=== PATIENT | female | born 1955 | race Caucasian/White ===

== ENCOUNTER → 2018-08-02 11:56 | Outpatient (CLI) | payer MEDICARE, SELFPAY | PROVIDERS: Family Provider Family Medicine; PCP Family Medicine; Visit Provider Family Medicine | DX: Z12.31 Encounter for screening mammogram for malignant neoplasm of breast (principal) | CPT/HCPCS: 77063; 77067 ==

== ENCOUNTER 2018-09-07 20:35 | Emergency (ER) | payer MEDICARE, SELFPAY ==
[2018-09-07 20:36] VITALS: BP 118/82; PULSE 77; RESP 16; TEMP 35.6; O2SAT 94; BMI 34.7
--- NOTE | 2018-09-07 20:52 | CT_ITS ---
STUDY: CT FACIAL BONES WITHOUT CONTRAST REASON FOR EXAM: Female, 63 years old. Fall. Facial pain. RADIATION DOSAGE (If Supplied By Facility): CTDIvol = ( 29.38 ) mGy, DLP = ( 466.65 ) mGycm TECHNIQUE: The patient was scanned in a multi detector CT scanner. Sagittal and coronal images were reconstructed. Individualized dose optimization techniques were used for this CT. COMPARISON: None. FINDINGS: Normal soft tissue structures. Normal orbital morales and orbital contents. Normal nasal bones and anterior nasal spine. Normal facial bones. There is no demonstrated fracture. Normal visualized paranasal sinuses. CT/Sinus/Facial Bone IMPRESSION: No acute osseous injury. Electronically Signed: Gloria Finley MD at 22:23 EDT Tel , Service support ,
--- NOTE | 2018-09-07 20:52 | CT_ITS ---
STUDY: CT BRAIN WITHOUT CONTRAST REASON FOR EXAM: Female, 63 years old. Fall. RADIATION DOSAGE (If Supplied By Facility): CTDIvol = ( 44.99 ) mGy, DLP = ( 745.49 ) mGycm TECHNIQUE: Transaxial CT imaging of the brain was performed without administration of intravenous contrast material. Individualized dose optimization techniques were used for this CT. COMPARISON: None. FINDINGS: Normal soft tissue structures. Normal calvarium. Normal size ventricles and extra-axial spaces for the patient's age. Normal white matter tracts of the cerebral hemispheres. Normal basal ganglia and thalami. Normal brainstem. Normal cerebellum. There is no intracranial hemorrhage. There are no findings of an acute ischemic infarction. Normal visualized paranasal sinuses. CT/Brain/Head without Contrast IMPRESSION: No acute intracranial process. Electronically Signed: Gloria Finley MD at 21:40 EDT Tel , Service support ,
[2018-09-07 20:59] VITALS: BP 139/65; PULSE 68; RESP 16; O2SAT 97
[2018-09-07] MEDS: Diphth,Pertuss(Acell),Tet Vac 0.5 ML Vial IM (21:04)
--- NOTE | 2018-09-07 21:30 | ED.DCSUM_ITS ---
- ER Visit Summary Date of Service: 09/07/18 Chief Complaint: [Fall] History of Present Illness: The patient is a 63 F [presents the emergency department complaint of a fall that occurred prior to arrival in the emergency department. Patient tripped in the garage and fell striking her face on the garage floor. No loss of consciousness. Patient also complains of pain to her left hand. Patient denies any neck pain. She denies any chest pain or abdominal pain. Patient states that she saw a lot of blood in afterwards became almost presyncopal. Patient has a history of COPD. She is not on any blood thinners. Patient is right-hand dominant.] Physical Examination: [HEENT-PERRLA, EOMI. Cranial nerves II through XII grossly intact. TMs clear. Mucous membranes moist. No adenopathy. Patient has no C-spine tenderness on palpation and has normal active range of motion is painless patient does have soft tissue swelling to the nose diffusely but minimal discomfort over the nasal bone. There is no septal hematomas noted although she does have some small amount of dried blood both nasal vaults. Patient has superficial abrasion to the upper lip but no significant lacerations. Patient does have some soft tissue swelling of the lip. No dental trauma noted. Cardiovascular-regular rate and rhythm without murmur or ectopy Lungs-clear to auscultation, chest wall stable without crepitus or subcu emphysema Abdomen-normoactive bowel sounds, soft, nontender, no rebound or rigidity, no peritoneal signs. Extremities-intact ?4, normal range of motion, normal pulses. Left hand-patient has some mild discomfort over the small finger diffusely with no obvious deformity. Patient has some faint ecchymosis noted over the thenar eminence of the right hand. She has normal range of motion of all digits. She is neurovascular intact. Test Results: [CT of the brain without contrast was normal. CT of the facial bones showed no fractures. X-rays of the left hand showed no fractures.] Emergency Department Course and Treatment: [Patient was given a Adacel tetanus booster. She was given an Arcadio wrap for her left hand.] Treatment Plan: [Patient advised to follow-up with her primary care physician within next 5-7 days. Patient will use ibuprofen or Tylenol for discomfort.] Disposition: [Discharged home in stable condition] Impression: [Mechanical fall Facial contusions Left hand sprain] This note was generated with [employer] dictation software. It may contain incorrect words, spelling, and punctuation that were not noted in review of the chart prior to signing ED Disposition - Plan for ED Patient: Chief Complaint: Fall Referrals: Christy Perea MD [Primary Care Provider] -
--- NOTE | 2018-09-07 22:10 | RAD_ITS ---
STUDY: X-RAY - LEFT HAND REASON FOR EXAM: Female, 63 years old. Fall. TECHNIQUE: 3 view(s) of the hand. COMPARISON: None. FINDINGS: There is joint space narrowing of the radiocarpal articulation consistent with degenerative arthrosis. Normal distal radioulnar joint. Normal visualized carpal bones. Normal carpal articulations There is degenerative arthrosis of the carpometacarpal articulation of the thumb with lateral subluxation of the first metacarpus. Normal second through fifth carpometacarpal joints. Normal metacarpi. Normal metacarpophalangeal joint of the thumb. There is degenerative arthrosis of the interphalangeal joint of the thumb with articular joint space narrowing. Normal proximal and distal phalanges of the thumb. Normal metacarpophalangeal joints of the second through fifth fingers. There is diffuse articular joint space narrowing of the proximal and distal interphalangeal joints of the second through fifth fingers, but without erosive changes or periarticular soft tissue swelling. Normal phalanges of the second through fifth fingers. The soft tissue structures are unremarkable. RAD/Hand Min 3 Views IMPRESSION: Degenerative joint disease of the hand and wrist, as described above. Electronically Signed: Gloria Finley MD at 21:36 EDT Tel , Service support ,
--- NOTE | 2018-09-07 22:28 | ED.DEP ---
ED Disposition - Plan for ED Patient: Chief Complaint: Fall Instructions: ED Mechanical Fall, ED Contusion Face, ED Sprain Hand Referrals: Christy Perea MD [Primary Care Provider] - 5-7 Days
[2018-09-07 22:43] VITALS: BP 133/66; PULSE 70; RESP 15; O2SAT 97
== END 2018-09-07 22:44 | disposition home or self-care (01) ==
LOC: ED 21:36
PROVIDERS: Emergency Provider Emergency Medicine; Family Provider Family Medicine; PCP Family Medicine
DX: S00.83XA Contusion of other part of head, initial encounter (principal); S63.92XA Sprain of unspecified part of left wrist and hand, initial encounter; S00.511A Abrasion of lip, initial encounter; W01.10XA Fall on same level from slipping, tripping and stumbling with subsequent striking against unspecified object, initial encounter; Y93.9 Activity, unspecified; Y92.008 Other place in unspecified non-institutional (private) residence as the place of occurrence of the external cause; Y99.9 Unspecified external cause status; Z23 Encounter for immunization; J44.9 Chronic obstructive pulmonary disease, unspecified; Z79.899 Other long term (current) drug therapy
CPT/HCPCS: 70450; 70486; 73130; 90471; 90715; 99282

== ENCOUNTER → 2019-02-28 14:09 | Outpatient (CLI) | payer MEDICARE, SELFPAY ==
[2019-02-27 15:50] VITALS: BMI 34.9
== END ==
PROVIDERS: Family Provider Family Medicine; PCP Family Medicine; Referring Provider Physician Assistant; Visit Provider Physician Assistant
DX: N39.0 Urinary tract infection, site not specified (principal)
CPT/HCPCS: 87086

== ENCOUNTER → 2019-08-04 13:31 | Outpatient (CLI) | payer MEDICARE, SELFPAY ==
[2019-02-27 15:50] VITALS: BMI 34.9
--- NOTE | 2019-08-04 13:33 | BI_ITS ---
MAMMOGRAPHY - BILATERAL SCREENING REASON FOR EXAM: Female, 63 years old. Routine annual screening examination. PERTINENT HISTORY: Aunt with breast cancer. TECHNIQUE: Digital bilateral breast tom (3D mammographic acquisition) in the CC and MLO projections. 2-D mediolateral oblique (MLO) and craniocaudad (CC) views of both breasts were obtained. CAD: Full Field Digital Mammography with Computer Added Detection was performed. COMPARISON: Comparison is made with prior study dated August 02, 2018 and July 31, 2017. FINDINGS: Breast Composition: The breasts are almost entirely fatty. There are no dominant masses or suspicious calcifications. Stable appearance of the bilateral axillary lymph nodes. No other significant abnormalities are identified. There has been no significant change since the prior study. BI/SCREEN MAMM (CAD) W/TOM BILAT IMPRESSION: Stable bilateral screening mammogram. Yearly follow-up mammogram recommended. (A) ASSESSMENT CATEGORY: BIRADS Category 2: Benign. A letter regarding these results will be sent to the patient by the facility within 30 days. Approximately 10% of breast cancers are not detected by mammography. A normal mammogram should not delay biopsy of a clinically suspicious abnormality. [id number] Electronically Signed: Sabas Nunn, at 14:55 EDT , Service support ,
== END ==
PROVIDERS: Family Provider Family Medicine; PCP Family Medicine; Referring Provider Family Medicine; Visit Provider Family Medicine
DX: Z12.31 Encounter for screening mammogram for malignant neoplasm of breast (principal)
CPT/HCPCS: 77063; 77067

== ENCOUNTER → 2019-10-29 11:04 | Outpatient (CLI) | payer MEDICARE, SELFPAY ==
[2019-02-27 15:50] VITALS: BMI 34.9
[2019-10-29 12:41] LABS: Absolute Lymphocyte Count 2.08 X10^3/uL (0.83-4.51); Absolute Neutrophil Count 6.2 X10^3/uL (2.0-7.7); Basophil# 0.05 X10^3/uL; Basophil% 0.5 % (0-1); Eosinophil# 0.18 X10^3/uL; Eosinophils% 1.9 % (0-5); Hematocrit 45.7 % (37-47); Hemoglobin 14.6 g/dL (12.0-15.0); Lymphocyte # 2.08 X10^3/ul (4.0); Lymphocyte % 21.8 % (19-41); Mean Corp Hgb Conc 31.9 g/dL (32-36); Mean Corpuscular Hgb 28.7 pg (27.0-32.0); Mean Corpuscular Volume 89.8 fL (81-99); Monocyte# 0.99 X10^3/uL; Monocyte% 10.4 % (0-10); NRBC Flagged by Analyzer 0 % (0-5); Neutrophil % 65.1 % (47-70); Platelet Count 318 K/mm3 (150-450); RBC Distribution Width CV 15.5 % (11.6-14.6); RBC Distribution Width SD 51.5 fl (35.1-43.9); Red Blood Count 5.09 M/mm3 (4.2-5.4); White Blood Count 9.5 K/mm3 (4.4-11.0)
== END ==
PROVIDERS: Family Provider Family Medicine; PCP Family Medicine; Referring Provider Internal Medicine Pulmonary Disease; Visit Provider Internal Medicine Pulmonary Disease
DX: J44.9 Chronic obstructive pulmonary disease, unspecified (principal)
CPT/HCPCS: 36415; 85025

== ENCOUNTER → 2020-08-11 09:49 | Outpatient (CLI) | payer MEDICARE, SELFPAY ==
[2019-02-27 15:50] VITALS: BMI 34.9
--- NOTE | 2020-08-11 09:51 | BI_ITS ---
MAMMOGRAPHY - BILATERAL SCREENING REASON FOR EXAM: Female, 64 years old. Routine annual screening examination. PERTINENT HISTORY: Aunt with breast cancer. TECHNIQUE: Digital bilateral breast tom (3D mammographic acquisition) in the CC and MLO projections. 2-D mediolateral oblique (MLO) and craniocaudad (CC) views of both breasts were obtained. CAD: Full Field Digital Mammography with Computer Added Detection was performed. COMPARISON: Comparison is made with prior study dated 08/04/2019 and 08/02/2018. FINDINGS: Breast Composition: The breasts are almost entirely fatty. There are no dominant masses or suspicious calcifications. Stable benign-appearing bilateral axillary lymph nodes. No other significant abnormalities are identified. There has been no significant change since the prior study. BI/SCREEN MAMM (CAD) W/TOM BILAT IMPRESSION: Stable bilateral screening mammogram. Yearly follow-up mammogram recommended. (A) ASSESSMENT CATEGORY: BIRADS Category 2: Benign. A letter regarding these results will be sent to the patient by the facility within 30 days. Approximately 10% of breast cancers are not detected by mammography. A normal mammogram should not delay biopsy of a clinically suspicious abnormality. [id number] Electronically Signed: Sabas Nunn, at 12:49 EDT , Service support ,
--- NOTE | 2020-08-11 09:56 | BD_ITS ---
STUDY: DUAL ENERGY X-RAY ABSORPTIOMETRY / DXA REASON FOR EXAM: Female, 64 years old. 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 COMPARISON: Comparison is made with prior examination 07/13/2015. FINDINGS: Lumbar Spine (L1-L4): g/cm2 (1.123) / T-score (-0.5) / Z-score (1.1) Findings are suggestive of normal bone density with a low fracture risk. Left Femur Total: g/cm2 (0.952) / T-score (-0.4) / Z-score (0.9) Left Femoral Neck: g/cm2 (0.855) / T-score (-1.3) / Z-score (0.2) Right Femur Total: g/cm2 (0.854) / T-score (-1.2) / Z-score (0.1) Right Femoral Neck: g/cm2 (0.810) / T-score (-1.6) / Z-score (-0.1) The T-Scores on the most recent prior examination were: Lumbar Spine (L1-L4): There has been improvement of bone density since the previous examination. Left Femur Total: which represents a worsening of 3.3%. Right Femur Total: which represents a worsening of 7%. BD/Dexa Bone Density Study IMPRESSION: The patient is considered osteopenic as outlined below according to World Randy Organization (WHO) criteria with a low fracture risk. There has been worsening of bone density since the previous examination. Reference Information: The T-score is the number of standard deviations above or below the standard which is normal for young adults at their peak bone mineral density. The World Health Organization (WHO) interprets the T-scores as follows: Above -1 Normal bone density Between -1 and -2.5 Osteopenia Equal to / or below -2.5 Osteoporosis As a practical clinical guideline, osteopenia may be graded as follows: Mild -1 through -1.5 Moderate -1.6 through -2.0 Severe -2.1 through -2.4 The Z-score is the number of standard deviations above or below age-matched controls. A Z-score of less than -1.5 would be considered abnormal. References: 1. NIH Osteoporosis and Related Bone Diseases http://www.osteo.org 2. International Society for Clinical Densitometry http://www.iscd.org 3. National Osteoporosis Foundation http://www.nof.org Electronically Signed: Sabas Nunn, at 13:48 EDT , Service support ,
== END ==
PROVIDERS: PCP Family Medicine; Referring Provider Family Medicine; Visit Provider Family Medicine
DX: Z12.31 Encounter for screening mammogram for malignant neoplasm of breast (principal); Z78.0 Asymptomatic menopausal state; M85.80 Other specified disorders of bone density and structure, unspecified site; Z80.3 Family history of malignant neoplasm of breast
CPT/HCPCS: 77063; 77067; 77080

== ENCOUNTER → 2020-12-02 | Outpatient (CLI) | payer MEDICARE, SELFPAY ==
[2020-12-02 11:53] VITALS: BMI 39.3
== END | disposition home or self-care (01) ==
LOC: LABSPEC 18:10
PROVIDERS: PCP Family Medicine; Visit Provider Physician Assistant
DX: L03.311 Cellulitis of abdominal wall (principal)
CPT/HCPCS: 87070; 87077; 87186; 87205

== ENCOUNTER → 2021-05-12 | Outpatient (CLI) | payer MEDICARE, SELFPAY ==
[2021-05-12 17:11] VITALS: BMI 35.7
== END | disposition home or self-care (01) ==
LOC: LABSPEC 18:00
PROVIDERS: PCP Family Medicine; Visit Provider Physician Assistant
DX: L72.3 Sebaceous cyst (principal)
CPT/HCPCS: 87070; 87077; 87186; 87205

== ENCOUNTER → 2021-08-10 16:52 | Outpatient (CLI) | payer MEDICARE, SELFPAY ==
[2021-08-10 17:51] LABS: Absolute Lymphocyte Count 2.98 X10^3/uL (0.83-4.51); Absolute Neutrophil Count 8.6 X10^3/uL (2.0-7.7); Basophil# 0.07 X10^3/uL; Basophil% 0.5 % (0-1); Eosinophil# 0.21 X10^3/uL; Eosinophils% 1.6 % (0-5); Erythrocyte Sedimentation Rate 26 mm/hr (0-30); Hematocrit 44.5 % (37-47); Lymphocyte # 2.98 X10^3/ul (0.83-4.51); Mean Corp Hgb Conc 31.5 g/dL (32-36); Mean Corpuscular Hgb 29.1 pg (27.0-32.0); Mean Corpuscular Volume 92.5 fL (81-99); Mean Platelet Vol. 9.7 fl (6.2-12.0); Monocyte# 1.02 X10^3/uL; Monocyte% 7.9 % (0-10); NRBC Flagged by Analyzer 0 % (0-5); Neutrophil # 8.59 X10^3/uL (2.7-7.7); Neutrophil % 66.5 % (47-70); Platelet Count 434 K/mm3 (150-450); RBC Distribution Width CV 14.3 % (11.6-14.6); RBC Distribution Width SD 48.1 fl (35.1-43.9); Red Blood Count 4.81 M/mm3 (4.2-5.4); White Blood Count 12.9 K/mm3 (4.4-11.0)
== END ==
PROVIDERS: PCP Family Medicine; Referring Provider Physician Assistant; Visit Provider Physician Assistant
DX: M70.21 Olecranon bursitis, right elbow (principal); Y93.9 Activity, unspecified; J06.9 Acute upper respiratory infection, unspecified
CPT/HCPCS: 36415; 85025; 85048; 85652; 87205

== ENCOUNTER → 2021-08-16 10:36 | Outpatient (CLI) | payer MEDICARE, SELFPAY ==
[2021-05-12 17:11] VITALS: BMI 35.7
--- NOTE | 2021-08-16 10:38 | BI_ITS ---
MAMMOGRAPHY - BILATERAL SCREENING REASON FOR EXAM: Female, 66 years old. Routine annual screening examination. PERTINENT HISTORY: Aunt with breast cancer. TECHNIQUE: Digital bilateral breast pey[place] (3D mammographic acquisition) in the CC and MLO projections. 2-D mediolateral oblique (MLO) and craniocaudad (CC) views of both breasts were obtained. CAD: Full Field Digital Mammography with Computer Added Detection was performed. COMPARISON: Comparison is made with prior examination dated 08/11/2020 and 08/04/2019. FINDINGS: Breast Composition: The breasts are almost entirely fatty. There are no dominant masses or suspicious calcifications. Stable benign-appearing bilateral axillary lymph nodes. No other significant abnormalities are identified. There has been no significant change since the prior study. BI/SCREENING MAMM (CAD), BILAT IMPRESSION: Stable bilateral screening mammogram. Yearly follow-up mammogram recommended. (A) ASSESSMENT CATEGORY: BIRADS Category 2: Benign. A letter regarding these results will be sent to the patient by the facility within 30 days. Approximately 10% of breast cancers are not detected by mammography. A normal mammogram should not delay biopsy of a clinically suspicious abnormality. [id number] Electronically Signed: Sabas Nunn MD at 12:40 EDT , Service support ,
== END ==
PROVIDERS: PCP Family Medicine; Referring Provider Family Medicine; Visit Provider Family Medicine
DX: Z12.31 Encounter for screening mammogram for malignant neoplasm of breast (principal)
CPT/HCPCS: 77067

== ENCOUNTER → 2021-10-28 16:20 | Outpatient (CLI) | payer MEDICARE, SELFPAY ==
[2021-10-28 17:27] LABS: Hematocrit 44.1 % (37-47); Hemoglobin 14.1 g/dL (12.0-15.0); Mean Corpuscular Hgb 28.7 pg (27.0-32.0); Mean Corpuscular Volume 89.6 fL (81-99); Platelet Count 327 K/mm3 (150-450); RBC Distribution Width SD 49.8 fl (35.1-43.9); Red Blood Count 4.92 M/mm3 (4.2-5.4)
== END ==
PROVIDERS: PCP Family Medicine; Referring Provider Internal Medicine Pulmonary Disease; Visit Provider Internal Medicine Pulmonary Disease
DX: J44.9 Chronic obstructive pulmonary disease, unspecified (principal)
CPT/HCPCS: 36415; 85027

== ENCOUNTER → 2021-11-21 14:09 | Outpatient (CLI) | payer MEDICARE, SELFPAY ==
--- NOTE | 2021-11-21 14:21 | CT_ITS ---
STUDY: LOW DOSE CT LUNG CANCER SCREENING REASON FOR EXAM: Female, 66 years old. Former smoker, low-dose screening RADIATION DOSAGE (If Supplied By Facility): CTDIvol = ( 4.02 ) mGy, DLP = ( 140.44 ) mGycm TECHNIQUE: No contrast was administered. Low dose technique was utilized (average mAS-38 and kVp 120). 1.25 mm axial source images with a slice interval of 1.25-mm were reconstructed in lung windows. 2.5 mm axial source images with a slice interval of 2.5-mm were reconstructed in lung windows. 5.0 mm axial source images with a slice interval of 5.0-mm were reconstructed in soft tissue windows. Nodule measured using lung windows on PACS and/or independent workstation with automated measurement of minimum and maximum diameter. Nodule measurement reported as average diameter rounded to the nearest whole number. Growth is defined as an increase ins size of greater than 1.5 mm. COMPARISON: None. NODULES: Nodule #: 1 Density: Solid Lung location: Right lower lobe: 0.4 cm from pleura Location in series: Series Number: 2 Image: 117 Size - D1 x D2 mm: 5.4 x 6.1 mm: 6 mm average diameter Margin: Mildly irregular Shape: Round to triangular Calcification: None Fat: None Temporal comparison: Not applicable Total lung nodules (excluding granulomas): 1 Emphysema: Moderate centrilobular Endobronchial lesion: None Aorta: Atherosclerosis Coronary arteries: Mild atherosclerosis Heart: Normal size Pulmonary artery: Unremarkable for unopacified technique Mediastinal nodes: No adenopathy Other chest and abdominal findings: None relevant CT/Low Dose CT Lung Screening IMPRESSION: Lung-RADS category 3 - Continue screening with LDCT in 6 months. IMPORTANT NOTES FOR USE: ACR Lung-RADS Version 1.1 Assessment Categories Release Date: 2018 Category: Coded 0-4 bases on nodule(s) with highest degree of suspicion. Negative screen is defined as categories 1 and 2; a positive screen is defined as categories 3 and 4. Category 3 and 4A nodules that are unchanged on interval CT should be coded as category 2, and individuals returned to screening in 12 months. Category 4X: Category 3 or 4 nodules with additional imaging findings that increase the suspicion of lung cancer, such as spiculation, GGN that doubles in size in 1 year, enlarged lymph notes, etc. Category Modifiers: S (significant finding unrelated to lung cancer) Electronically Signed: Pranay Mckinney MD ([place]) at 15:26 EST , Service support ,
== END ==
PROVIDERS: PCP Family Medicine; Referring Provider Internal Medicine Pulmonary Disease; Visit Provider Internal Medicine Pulmonary Disease
DX: Z87.891 Personal history of nicotine dependence (principal)
CPT/HCPCS: 71271

== ENCOUNTER → 2022-03-30 | Outpatient (CLI) | payer MEDICARE, SELFPAY ==
--- NOTE | 2022-03-30 13:09 | ECHOD_ITS ---
Reason For Study: SOB Procedure This was a 2D Doppler, Color Flow transthoracic echocardiogram. Exam performed in department. Left Ventricle The estimated ejection fraction is 55-60 %. No evidence for diastolic dysfunction. No regional wall motion abnormalities noted. Right Ventricle Normal RV size. Normal systolic function. Atria Normal left atrium. Normal right atrium. No doppler evidence for ASD. Mitral Valve There is no mitral valve stenosis. Trivial mitral valve insufficiency. Tricuspid Valve There is no tricuspid stenosis. Trivial tricuspid valve insufficiency. Pulmonary artery systolic pressure is 50 mmHg. Aortic Valve Trisinus/trileaflet aortic valve. There is no aortic stenosis. No aortic valve insufficiency. Pulmonic Valve There is no pulmonic valvular stenosis. No pulmonic valve insufficiency. Great Vessels Normal aortic root. Pericardium/Pleural No pericardial effusion. MMode/2D Measurements & Calculations LVIDd: 4.6 cm IVSd: 0.93 cm Ao root diam: 3.0 cm LVIDs: 3.3 cm LVPWd: 0.89 cm RVDd: 2.7 cm FS: 29.0 % LAV(MOD-bp): 38.1 ml LVAd ap4: 24.4 cm2 LVAd ap2: 23.0 cm2 LAV(MOD-bp) Indexed: 20.2 ml/m2 LVLd ap4: 8.0 cm LVLd ap2: 7.5 cm LAV(MOD-sp2): 35.6 ml EDV(MOD-sp4): 63.2 ml EDV(MOD-sp2): 58.5 ml LAV(MOD-sp4): 37.1 ml EDV(sp4-el): 63.7 ml EDV(sp2-el): 59.6 ml LVAs ap4: 13.6 cm2 LVAs ap2: 12.7 cm2 LVLs ap4: 7.1 cm LVLs ap2: 6.8 cm ESV(MOD-sp4): 22.0 ml ESV(MOD-sp2): 20.6 ml ESV(sp4-el): 22.2 ml ESV(sp2-el): 20.2 ml EF(MOD-sp4): 65.2 % EF(MOD-sp2): 64.9 % EF(sp4-el): 65.1 % SV(MOD-sp4): 41.2 ml SV(MOD-sp2): 38.0 ml SV(sp4-el): 41.5 ml LA dimension(2D): 4.0 cm LA A4 area: 14.4 cm2 RA A4 area: 12.3 cm2 Doppler Measurements & Calculations MV E max sudheer: 63.1 cm/sec Lat Peak E' Sudheer: 9.3 cm/sec Med Peak E' Sudheer: 10.1 cm/sec MV A max sudheer: 87.6 cm/sec E/E' lat: 6.8 E/E' med: 6.3 MV E/A: 0.72 Ao V2 max: 157.1 cm/sec LV V1 max: 114.3 cm/sec PA V2 max: 109.8 cm/sec Ao max P.9 mmHg LV V1 max P.2 mmHg TR max sudheer: 334.9 cm/sec TR max P.9 mmHg ECHO/Echo Complete Interpretation Summary The estimated ejection fraction is 55-60 %. No evidence for diastolic dysfunction. Trivial mitral valve insufficiency. Ordering Physician: Mitchell Brian Referring Physician: Mitchell Brian V Performed By: Effie Gill RDCS
--- NOTE | 2022-03-30 13:12 | CT_ITS ---
STUDY: CT CHEST WITHOUT CONTRAST REASON FOR EXAM: Female, 66 years old. PULMONARY NODULE RADIATION DOSAGE (If Supplied By Facility): CTDIvol = ( 12.08 ) mGy, DLP = ( 440.61 ) mGycm TECHNIQUE: Transaxial imaging was performed without the administration of intravenous contrast material. Individualized dose optimization techniques were used for this CT. COMPARISON: Comparison is made with prior study dated 11/21/2021. FINDINGS: CHEST Stable small benign-appearing bilateral axillary lymph nodes. Hyperinflation. Emphysematous changes. Since prior study, there is evidence of increased interstitial markings with possible nodular density in the right lung apex. Follow-up in 3 months is recommended. Stable scarring in the lingular segment of the left upper lobe. The previously seen 5.6 mm nodule in the lateral aspect of the anterior right lower lobe is not seen at this time. There is no demonstrated pleural abnormality. There are calcifications of the coronary arteries. Normal mediastinum. Normal hilar regions. Normal unenhanced pulmonary arteries. There is atherosclerotic calcification of the aortic arch. There are multi-level degenerative changes of the thoracic spine. There is no demonstrated abnormality of the visualized upper abdomen. CT/Chest without Contrast IMPRESSION: Progressive increased interstitial markings in the right upper lobe. Follow-up in 3 months is recommended. Electronically Signed: Sabas Nunn MD at 15:33 EDT ,
== END | disposition home or self-care (01) ==
PROVIDERS: PCP Family Medicine; Referring Provider Internal Medicine Pulmonary Disease; Visit Provider Internal Medicine Pulmonary Disease
DX: R91.1 Solitary pulmonary nodule (principal); R06.00 Dyspnea, unspecified
CPT/HCPCS: 71250; 93306

== ENCOUNTER → 2022-09-28 | Outpatient (CLI) | payer MEDICARE, SELFPAY ==
--- NOTE | 2022-09-28 12:35 | BI_ITS ---
MAMMOGRAPHY - BILATERAL SCREENING REASON FOR EXAM: Female, 67 years old. Routine annual screening examination. PERTINENT HISTORY: Aunt with breast cancer. TECHNIQUE: Digital bilateral breast tom (3D mammographic acquisition) in the CC and MLO projections. 2-D mediolateral oblique (MLO) and craniocaudad (CC) views of both breasts were obtained. CAD: Full Field Digital Mammography with Computer Added Detection was performed. COMPARISON: Comparison is made with prior study dated 08/16/2021 and 08/11/2020. FINDINGS: Breast Composition: The breasts are almost entirely fatty. There are no dominant masses or suspicious calcifications. Stable appearance of the bilateral axillary lymph nodes. No other significant abnormalities are identified. There has been no significant change since the prior study. BI/SCRN MAMM (CAD)W/TOM BILAT IMPRESSION: Stable bilateral screening mammogram. Yearly follow-up mammogram recommended. (A) ASSESSMENT CATEGORY: BIRADS Category 2: Benign. A letter regarding these results will be sent to the patient by the facility within 30 days. Approximately 10% of breast cancers are not detected by mammography. A normal mammogram should not delay biopsy of a clinically suspicious abnormality. [id number] Electronically Signed: Sabas Nunn MD at 13:40 EDT ,
--- NOTE | 2022-09-28 12:40 | BD_ITS ---
STUDY: DUAL ENERGY X-RAY ABSORPTIOMETRY / DXA REASON FOR EXAM: Female, 67 years old. [id number] TECHNIQUE: Bone Mineral Density (BMD) measurements of lumbar spine and bilateral hips were obtained. COMPARISON: Comparison is made with prior study of 08/11/2020. FINDINGS: Lumbar Spine (L1-L4): g/cm2 (0.974) / T-score (-0.4) / Z-score (1.6) Findings are suggestive of normal bone density with a low fracture risk. Left Femur Total: g/cm2 (0.913) / T-score (-0.2) / Z-score (1.2) Left Femoral Neck: g/cm2 (0.684) / T-score (-1.5) / Z-score (0.3) Right Femur Total: g/cm2 (0.838) / T-score (-0.9) / Z-score (0.6) Right Femoral Neck: g/cm2 (0.691) / T-score (-1.4) / Z-score (0.3) The T-Scores on the most recent prior examination were: Lumbar Spine (L1-L4): There has been improvement of bone density since the previous examination. Left Femur Total: which represents an improvement of 2.8%. Right Femur Total: which represents an improvement of 5.8%. BD/Dexa Bone Density Study IMPRESSION: The patient is considered osteopenic as outlined below according to World Randy Organization (WHO) criteria with a low fracture risk. There has been improvement of bone density since the previous examination. Reference Information: The T-score is the number of standard deviations above or below the standard which is normal for young adults at their peak bone mineral density. The World Health Organization (WHO) interprets the T-scores as follows: Above -1 Normal bone density Between -1 and -2.5 Osteopenia Equal to / or below -2.5 Osteoporosis As a practical clinical guideline, osteopenia may be graded as follows: Mild -1 through -1.5 Moderate -1.6 through -2.0 Severe -2.1 through -2.4 The Z-score is the number of standard deviations above or below age-matched controls. A Z-score of less than -1.5 would be considered abnormal. References: 1. NIH Osteoporosis and Related Bone Diseases www osteo.org 2. International Society for Clinical Densitometry www iscd.org 3. National Osteoporosis Foundation www nof.org Electronically Signed: Sabas Nunn MD at 12:33 EDT ,
== END | disposition home or self-care (01) ==
LOC: OPBD 12:33
PROVIDERS: PCP Family Medicine; Referring Provider Family Medicine; Visit Provider Family Medicine
DX: Z12.31 Encounter for screening mammogram for malignant neoplasm of breast (principal); N95.9 Unspecified menopausal and perimenopausal disorder; Z80.3 Family history of malignant neoplasm of breast
CPT/HCPCS: 77063; 77067; 77080

== ENCOUNTER 2023-07-08 14:59 | Inpatient (IN) | payer MEDICARE, SELFPAY ==
[2023-07-08] VITALS (8 sets, daily range): BP systolic 149–168; BP diastolic 67–77; PULSE 85–94; RESP 16–24; TEMP 36.6–37.4; O2SAT 83–99; BMI 39.9
--- NOTE | 2023-07-08 15:16 | ED.VIS.DYS ---
HPI History of Present Illness Chief Complaint: Shortness of Breath Informant: patient Onset/Context/Timing Onset: Days (3) Context: gradual Timing: Continuous Quality: Positive for Dyspnea on exertion Worsened by: Exertion Relieved by: - (Air conditioning) Associated Symptoms cough, post nasal drip and green sputum; Negative for rhinorrhea, ear pain, fever, sore throat, chills or sweats Chest Pain: Positive for Dull Narrative Narrative: Patient presents with shortness of breath that has been getting worse over the past 3 days. Patient states that she was on vacation in [place] when this began. Patient states it is gradually gotten worse. Patient states she drove back from [place]. Patient states her breathing is worse with any exertion. Patient states it is better when she is in air conditioning. Patient admits to a cough with some green sputum. Patient also admits to some postnasal drainage. Patient denies any fevers or chills. Patient admits to some dull chest pain in the substernal area. PE Risk Factors: Positive for Recent travel; Negative for Cancer, OCP + Smoking + > 35, Prior DVT or PE, Recent immobilization or Recent surgery [facility] Medical History Arthritis Cellulitis and abscess of face Cellulitis of left forearm Hemorrhoids Knee pain Lung disease SOB (shortness of breath) Home Medications calcium carbonate 500 mg calcium (1,250 mg) tablet 500 mg PO DAILY 09/07/18 [History Last Taken Unknown] fluticasone furoate 200 mcg-vilanterol 25 mcg/dose inhalation powder 2 puff inhalation DAILY 09/07/18 [History Last Taken Unknown] loratadine 10 mg capsule 10 mg PO DAILY 09/07/18 [History Last Taken Unknown] montelukast 10 mg tablet 10 mg PO DAILY 09/07/18 [History Last Taken Unknown] albuterol sulfate 90 mcg/actuation aerosol inhaler 2 puff inhalation Q4H PRN PRN Shortness Of Breath 10/20/18 [History Last Taken Unknown] aspirin 81 mg chewable tablet 81 mg PO DAILY 10/20/18 [History Last Taken Unknown] escitalopram oxalate 5 mg tablet 5 mg PO DAILY 10/20/18 [History Last Taken Unknown] fluticasone furoate 100 mcg-vilanterol 25 mcg/dose inhalation powder (Breo Ellipta) 1 inh inhalation DAILY 10/20/18 [History Last Taken Unknown] umeclidinium 62.5 mcg/actuation blister powder for inhalation (Incruse Ellipta) 1 inh inhalation DAILY 10/20/18 [History Last Taken Unknown] pantoprazole 40 mg tablet,delayed release 40 mg PO DAILY 08/10/21 [History Last Taken Unknown] Allergy/AdvReac Type Severity Reaction Status Date / Time house dust Allergy Unknown Verified 07/08/23 15:01 mold Allergy Unknown Verified 07/08/23 15:01 Family History Other Cancer Heart disease Surgical History History of appendectomy Hx of removal of ovary Social History Smoking Status: Former smoker alcohol intake: never ROS ROS ED Constitutional Constitutional ED: Denies chills or fever(s) Eyes Eyes: Denies blurry vision or change in vision ENT ENT ED: Denies rhinorrhea or sore throat Cardiovascular Cardiovascular: Reports chest pain; Denies palpitations Respiratory/Chest Respiratory/Chest: Reports cough and dyspnea Gastrointestinal Gastrointestinal: Denies nausea or vomiting Genitourinary Genitourinary ED: Denies dysuria or hematuria Musculoskeletal Musculoskeletal: Reports back pain and neck pain Integumentary Denies abscess or rash Neurologic Neurologic: Denies headache(s) or weakness Allergic/Immunologic Allergic/Immunologic ED: Denies mouth swelling or urticaria EXAM Physical Exam Const Vital Signs: 07/08/23 15:02 07/08/23 15:05 07/08/23 15:38 Temperature 99.3 F H Temperature Source Temporal Pulse Rate 94 Respiratory Rate 22 H Respiratory Effort Respiratory Depth Respiratory Pattern Blood Pressure 168/67 H Blood Pressure Mean 100 Pulse Ox 83 99 Oxygen Delivery Method Room Air Nasal Cannula Nasal Cannula Oxygen Flow Rate (L/min) 2 07/08/23 15:39 07/08/23 15:44 Temperature Temperature Source Pulse Rate 85 Respiratory Rate 18 Respiratory Effort Short of Breath Respiratory Depth Normal Respiratory Pattern Normal Normal Blood Pressure Blood Pressure Mean Pulse Ox Oxygen Delivery Method Nasal Cannula Oxygen Flow Rate (L/min) 2 Positive well nourished and well developed General Appearance ED: well developed and NAD HEENT Reports moist mucous membranes Neck supple and no JVD Resp normal respiratory effort Auscultation: wheezes throughout Cardio regular rate and regular rhythm GI normal to inspection, nondistended, normoactive bowel sounds and non-tender Palpation: soft Extremity normal to inspection General Extremety ED: Negative for edema or tenderness General Extremity: Negative for edema Neuro oriented x3, CN's II-XII intact bilaterally and no sensory deficits noted Sensorium / Orientation: alert Motor Exam: strength 5/5 throughout Psych mental status grossly normal Skin no rashes or lesions noted MDM MDM MDM Narrative Medical decision making narrative: Differential diagnosis includes pneumonia, bronchitis, pulmonary embolism, pneumothorax, COPD exacerbation, and viral upper respiratory infection. EKG will be obtained to assess for cardiac dysrhythmia and cardiac ischemia. Chest x-ray will be obtained to assess for pneumonia, pneumothorax, and COPD. CBC will be obtained to assess for leukocytosis and anemia. Basic metabolic profile will be obtained to assess for electrolyte abnormality and renal function. High-sensitivity troponin will be obtained to assess for cardiac ischemia. D-dimer will be obtained to assess for pulmonary embolism. Lab Data Attestation: I reviewed the patient's lab results. Lab results narrative: CBC was reviewed. There is a mild leukocytosis of 14.0. The remainder is essentially within normal limits. Basic metabolic profile was reviewed and was within normal limits. High-sensitivity troponin was reviewed and was normal. D-dimer was reviewed and was 0.63 which is normal for the patient's age. Labs: Laboratory Results - last 24 hr 07/08/23 15:40 WBC 14.0 H RBC 4.52 Hgb 13.1 Hct 42.3 MCV 93.6 MCH 29.0 MCHC 31.0 L RDW Std Deviation 49.2 H RDW Coeff of Beena 14.4 Plt Count 281 MPV 9.7 Immature Gran % (Auto) 0.400 Neut % (Auto) 78.6 H Lymph % (Auto) 10.0 L Coffey % (Auto) 9.7 Eos % (Auto) 1.0 Baso % (Auto) 0.3 Absolute Neuts (auto) 11.0 H Absolute Lymphs (auto) 1.40 Nucleated RBC % 0 D-Dimer Quant (PE/DVT) 0.63 H* Sodium 138 Potassium 3.9 Chloride 100 Carbon Dioxide 34.0 H Anion Gap 4 L BUN 11 Creatinine 0.69 Est GFR (MDRD) Af Amer 108 Est GFR (MDRD) Non-Af 90 BUN/Creatinine Ratio 16.0 Glucose 110 H Calcium 8.9 Troponin I High Sens 24 Radiography Chest X-Ray - ED: 2 View, Read by ED Physician, Read by Radiologist and Chronic Changes Diagnostic Testing: Clinical Impression(s) from Imaging Studies Chest X-Ray 07/08/23 15:50 IMPRESSION: Mild chronic interstitial changes. No acute disease Electronically Signed: Chidi Dillon MD at 16:05 EDT , PA and lateral chest x-ray was obtained. There are 2 views. On my independent interpretation, lung samaniego show chronic changes. There is normal cardiac silhouette. Bony thorax is normal. There is no acute process noted. Radiologist also interpreted the x-ray and agrees. EKG Initial EKG: Attestation: I personally reviewed and interpreted this EKG as follows: Interpretation: Sinus Rhythm (90) and No Acute Injury Pattern Comments: EKG was obtained. On my independent interpretation, it showed a normal sinus rhythm with a rate of 90. CT interval, QRS interval, and QTc intervals were all normal. Isola was normal. There are no acute ST or T wave changes. Prior EKG tracings: not available for review Prior: No Prior Management Discussion w/another healthcare provider: Hospitalist Treatment and Re-Evaluation :: Patient was given a DuoNeb aerosol here. Patient's wheezing was improved on reevaluation. Since the patient was hypoxic on room air upon arrival and she does not normally wear oxygen, I recommended admission to the hospital. Patient is agreeable with this. I will discuss case with the hospitalist. He will admit the patient to the medical surgical unit. He recommended obtaining a sputum culture. Patient will be started on Rocephin and Zithromax. Patient and family understood and were agreeable with the plan. All questions were answered. Discharge Plan Triage Chief Complaint: Shortness of Breath ED Provider: Archie Gamino Dx/Rx/DC Orders Clinical Impression: Hypoxia, COPD exacerbation Prescriptions: No Action Breo Ellipta 100-25 mcg/dose blister with device 1 inh INHALATION DAILY Incruse Ellipta 62.5 mcg/actuation blister with device 1 inh INHALATION DAILY escitalopram oxalate 5 mg tablet 5 mg PO DAILY aspirin 81 mg tablet,chewable 81 mg PO DAILY calcium carbonate 500 MG tablet 500 mg PO DAILY montelukast 10 MG tablet 10 mg PO DAILY loratadine 10 MG capsule 10 mg PO DAILY fluticasone furoate-vilanterol 200-25 blister with device 2 puff Inhalation DAILY albuterol sulfate 90 mcg/actuation HFA aerosol inhaler 2 puff Inhalation Q4H PRN PRN (Reason: Shortness Of Breath) pantoprazole 40 mg tablet,delayed release (DR/EC) 40 mg PO DAILY Patient Comments: TAKE ONE TABLET TWICE DAILY BEFORE MORNING AND EVENING MEALS Primary Care Provider: Christy Perea Referrals: Christy Perea MD [Primary Care Provider] - Disposition Disposition: Acute Care Hospital [facility]
--- NOTE | 2023-07-08 15:25 | EKG12_ITS ---
Test Reason : sob Blood Pressure : / mmHG Vent. Rate : 090 BPM Atrial Rate : 090 BPM P-R Int : 134 ms QRS Dur : 082 ms QT Int : 374 ms P-R-T Axes : 089 060 069 degrees QTc Int : 457 ms Poor data quality, interpretation may be adversely affected Normal sinus rhythm Normal ECG When compared with ECG of 29-DEC-2006 19:37, No significant change was found Confirmed by ASHLEY NORRIS, JODI ([id number]), book or script editor CARTER PEREIRA ([id number]) on 09/14/2023 7:00:13 AM Referred By: Confirmed By:JODI RAMIREZ MD
[2023-07-08 15:43] LABS: Basophil# 0.04 X10^3/uL; Basophil% 0.3 % (0-1); Eosinophil# 0.14 X10^3/uL; Hematocrit 42.3 % (37-47); Hemoglobin 13.1 g/dL (12.0-15.0); Mean Corpuscular Volume 93.6 fL (81-99); Mean Platelet Vol. 9.7 fl (6.2-12.0); Monocyte# 1.36 X10^3/uL; Monocyte% 9.7 % (0-10); NRBC Flagged by Analyzer 0 % (0-5); Neutrophil # 10.97 X10^3/uL (2.7-7.7); Neutrophil % 78.6 % (47-70); Platelet Count 281 K/mm3 (150-450); RBC Distribution Width CV 14.4 % (11.6-14.6); RBC Distribution Width SD 49.2 fl (35.1-43.9); Red Blood Count 4.52 M/mm3 (4.2-5.4)
[2023-07-08] MEDS: Ipratropium/Albuterol Sulfate 3 ML AMPUL.NEB INHALATION (15:43)
--- NOTE | 2023-07-08 15:50 | RAD_ITS ---
STUDY: X-RAY CHEST REASON FOR EXAM: Female, 67 years old. Dyspnea TECHNIQUE: PA and lateral COMPARISON: November 01, 2017 FINDINGS: Mild chronic interstitial changes.. There is no demonstrated pleural abnormality. Normal size heart. Normal mediastinum and saba. Normal visualized pulmonary arteries. Mildly calcified aortic arch and descending thoracic aorta. Dorsal spine demonstrates minor spondylosis. Normal visualized, clavicles, and shoulders . Old healed left rib fracture. There is no demonstrated abnormality of the visualized soft tissue structures of the upper abdomen No significant change since prior study. RAD/Chest PA and Lateral IMPRESSION: Mild chronic interstitial changes. No acute disease Electronically Signed: Chidi Dillon MD at 16:05 EDT ,
[2023-07-08 16:06] LABS: D-Dimer Quantitative (DVT/PE) 0.63 FEU/ug/m (0.27-0.49)
[2023-07-08 16:30] LABS: Anion Gap 4 (5-15); BUN 11 mg/dL (7-18); Calcium,Total 8.9 mg/dL (8.5-10.1); Chloride 100 mmol/L (98-107); Creatinine, Serum 0.69 mg/dL (0.55-1.02); EST Glomerular Filtration Rate 90 mL/min (>60); Est Glom Filt Rate - Afr Amer 108 mL/min (>60); Glucose 110 mg/dL (74-106); Potassium 3.9 mmol/L (3.5-5.1); Sodium Level 138 mmol/L (136-145); Troponin-I HS 24 pg/mL (3.0-54.0)
--- NOTE | 2023-07-08 17:14 | NURSING ---
MED SURG MARISELA COPD EXAC, HYPOXIA
--- NOTE | 2023-07-08 17:16 | HP.PCM.HOS_ITS ---
HPI - General General Date of Admission: 07/08/23 HPI Narrative PIPER OLIVER, is a 67 F who presents to the hospital with shortness of breath. This started 4 to 5 days ago while she was in [place] for family reunion. She has been noticing a slow increase in her shortness of breath and yesterday when she arrived home she found it difficult to walk from the car to the house. D-dimer was obtained in the ER which was normal for her age. She denies any fevers or chills but has noticed productive cough with thick green sputum, and in the ER she was found to have white blood cell count of 14 without being on any steroids. Chest x-ray was unremarkable. He does have a history of COPD and when she arrived to the ER she was 83% on room air. She only wears oxygen at night through her CPAP. [facility] Medical History (Updated 07/08/23 @ 19:53 by Maite De La Fuente) Arthritis Cellulitis and abscess of face Cellulitis of left forearm Depression Hemorrhoids Knee pain Lung disease Migraines Smoker SOB (shortness of breath) Home Medications calcium carbonate 500 mg calcium (1,250 mg) tablet 500 mg PO DAILY calcium 09/07/18 [History Last Taken 07/08/23 13:00] fluticasone furoate 200 mcg-vilanterol 25 mcg/dose inhalation powder 2 puff inhalation DAILY SOB 09/07/18 [History Last Taken Unknown] montelukast 10 mg tablet 10 mg PO QHS allergies 09/07/18 [History Last Taken Unknown] albuterol sulfate 90 mcg/actuation aerosol inhaler 2 puff inhalation Q4H PRN PRN Shortness Of Breath 10/20/18 [History Last Taken Unknown] aspirin 81 mg chewable tablet 81 mg PO DAILY antiplatelet 10/20/18 [History Last Taken 07/07/23 21:30] escitalopram oxalate 5 mg tablet 10 mg PO QHS anxiety 10/20/18 [History Last Taken 07/07/23 21:30] pantoprazole 40 mg tablet,delayed release 40 mg PO DAILY GERD 08/10/21 [History Last Taken Unknown] cetirizine 10 mg tablet (24Hour Allergy) 10 mg PO QHS allergies 07/08/23 [History Last Taken 07/07/23 21:30] fluticasone fur. 200 mcg-umeclid 62.5 mcg-vilant 25 mcg inhalat.powder (Trelegy Ellipta) 1 inh inhalation DAILY SOB 07/08/23 [History Last Taken 07/08/23] fluticasone propionate 50 mcg/actuation nasal spray,suspension 2 spray intranasal QHS nasal dryness 07/08/23 [History Last Taken Unknown] rimegepant 75 mg disintegrating tablet (Nurtec ODT) 75 mg PO DAILY PRN migraine 07/08/23 [History Last Taken Unknown] Allergy/AdvReac Type Severity Reaction Status Date / Time house dust Allergy Unknown Verified 07/08/23 19:55 mold Allergy Unknown Verified 07/08/23 19:55 Family History Other Cancer Heart disease Surgical History History of appendectomy Hx of removal of ovary Social History Smoking Status: Former smoker alcohol intake: never ROS Constitutional Constitutional: Denies chills, fatigue, fever(s) or malaise Eyes Eyes: Denies blurry vision ENT HEENT: Denies headache(s) or nasal discharge Cardiovascular Cardiovascular: Denies chest pain, dyspnea on exertion or syncope Respiratory/Chest Respiratory/Chest: Reports cough, productive cough, shortness of breath at rest and shortness of breath with exertion Gastrointestinal Gastrointestinal: Denies constipation, diarrhea, nausea or vomiting Genitourinary Genitourinary: Denies dysuria Neurologic Neurologic: Denies focal weakness, numbness or tremor(s) Psychiatric Psychiatric: Denies anxiety or depression Vital Signs Vital Signs Vital Signs: 07/08/23 15:02 07/08/23 15:05 07/08/23 15:38 Temperature 99.3 F H Temperature Source Temporal Pulse Rate 94 Respiratory Rate 22 H Respiratory Effort Respiratory Depth Respiratory Pattern Blood Pressure 168/67 H Blood Pressure Mean 100 Pulse Ox 83 99 Oxygen Delivery Method Room Air Nasal Cannula Nasal Cannula Oxygen Flow Rate (L/min) 2 07/08/23 15:39 07/08/23 15:44 07/08/23 17:10 Temperature Temperature Source Pulse Rate 85 91 Respiratory Rate 18 18 Respiratory Effort Short of Breath Respiratory Depth Normal Respiratory Pattern Normal Normal Blood Pressure 159/72 H Blood Pressure Mean 101 Pulse Ox 94 Oxygen Delivery Method Nasal Cannula Oxygen Flow Rate (L/min) 2 Physical Exam Narrative General: Alert, Oriented x3, Cooperative, mild to moderate respiratory distress HEENT: Atraumatic, PERRLA, EOMI, Normocephalic Oral: Moist Mucosa Neck: Supple, No JVD Lungs: Diminished, Normal air movement, No rhonchi, wheeze, No rales, tachypnea, retractions Cardiovascular: Tachycardic, Regular Rhythm, Normal S1, Normal S2, No murmurs Abdomen: Soft, Non Tender, Non-Distended, No Hepato-splenomegaly Extremities: No edema, Capillary Refill Less than 3 Seconds Skin: No rashes, No breakdown Musculoskeletal: No Tenderness to Palpation of Joints or Extremities Neurological: Cranial nerves II-XII grossly intact, Motor Exam 5/5 strength throughout, Sensory exam intact to light touch and pain Psych/Mental Status: Normal Affect, Appropriate Results Lab / Micro Data 07/08/23 15:40 07/08/23 15:40 Labs: Laboratory Results - last 24 hr 07/08/23 15:40: WBC 14.0 H, RBC 4.52, Hgb 13.1, Hct 42.3, MCV 93.6, MCH 29.0, MCHC 31.0 L, RDW Std Deviation 49.2 H, RDW Coeff of Beena 14.4, Plt Count 281, MPV 9.7, Immature Gran % (Auto) 0.400, Neut % (Auto) 78.6 H, Lymph % (Auto) 10.0 L, Kent % (Auto) 9.7, Eos % (Auto) 1.0, Baso % (Auto) 0.3, Absolute Neuts (auto) 11.0 H, Absolute Lymphs (auto) 1.40, Nucleated RBC % 0, D-Dimer Quant (PE/DVT) 0.63 H*, Sodium 138, Potassium 3.9, Chloride 100, Carbon Dioxide 34.0 H, Anion Gap 4 L, BUN 11, Creatinine 0.69, Est GFR (MDRD) Af Amer 108, Est GFR (MDRD) Non-Af 90, BUN/Creatinine Ratio 16.0, Glucose 110 H, Calcium 8.9, Troponin I High Sens 24 Radiology Impression Chest X-Ray 07/08/23 15:50 IMPRESSION: Mild chronic interstitial changes. No acute disease Electronically Signed: Chidi Dillon MD at 16:05 EDT , Assessment & Plan Assessment/Plan (1) COPD exacerbation: (2) Acute respiratory failure with hypoxia: PLAN: Plan 1. Acute hypoxic respiratory failure secondary to COPD exacerbation with possible pneumonia ? We will obtain a sputum culture to verify pneumonia in the meantime we will continue with empiric antibiotics ? Continue with steroids ? Continue with DuoNebs ? She is normally on room air during the day with oxygen bleed in through her CPAP at night and she was 83% with retractions and tachypnea ? D-dimer was normal for age ? Continue with incentive spirometry 2. GERD ? Stable ? Continue with PPI 3. Anxiety/depression ? Stable ? Continue with her home medications DVT: Lovenox 77 minutes was spent on direct patient care, including documentation as well as chart review and collaboration with colleagues
[2023-07-08] MEDS: Fluticasone 0.05% 1 SPRAY NASAL.SRY 2 SPRAY NASAL (22:55)
[2023-07-08] MEDS: Escitalopram Oxalate 10 MG Tablet PO (22:57)
[2023-07-08] MEDS: Loratadine 10 MG Tablet PO (22:57)
[2023-07-08] MEDS: Montelukast 10 MG Tablet PO (22:57)
[2023-07-08] MEDS: CLARIFY ORDER 1 EACH NOTE (23:00)
[2023-07-09] VITALS (10 sets, daily range): BP systolic 152–156; BP diastolic 63–82; PULSE 74–82; RESP 16–21; TEMP 36.6–37.2; O2SAT 90–98
[2023-07-09 07:07] LABS: Absolute Lymphocyte Count 0.64 X10^3/uL (0.83-4.51); Absolute Neutrophil Count 11.7 X10^3/uL (2.0-7.7); Basophil# 0.04 X10^3/uL; Basophil% 0.3 % (0-1); Hematocrit 42.2 % (37-47); Hemoglobin 13.1 g/dL (12.0-15.0); Lymphocyte # 0.64 X10^3/ul (0.83-4.51); Mean Corpuscular Volume 93.4 fL (81-99); Mean Platelet Vol. 9.8 fl (6.2-12.0); Monocyte# 0.26 X10^3/uL; NRBC Flagged by Analyzer 0 % (0-5); Neutrophil # 11.72 X10^3/uL (2.7-7.7); Neutrophil % 91.8 % (47-70); Platelet Count 282 K/mm3 (150-450); RBC Distribution Width SD 47.9 fl (35.1-43.9); Red Blood Count 4.52 M/mm3 (4.2-5.4); White Blood Count 12.8 K/mm3 (4.4-11.0)
[2023-07-09 07:36] LABS: Anion Gap 16 (5-15); BUN 10 mg/dL (7-18); BUN/Creat Ratio 18.1 RATIO (10-20); Calcium,Total 8.9 mg/dL (8.5-10.1); Chloride 100 mmol/L (98-107); Creatinine, Serum 0.55 mg/dL (0.55-1.02); EST Glomerular Filtration Rate 116 mL/min (>60); Est Glom Filt Rate - Afr Amer 140 mL/min (>60); Estimated Creatinine Clearance 41.99 ml/min; Glucose 144 mg/dL (74-106); Potassium 4.3 mmol/L (3.5-5.1); Sodium Level 137 mmol/L (136-145)
--- NOTE | 2023-07-09 07:50 | NURSING ---
pt h/a med labeled and sent to inpt Rx to be labeleled
[2023-07-09] MEDS: Ipratropium/Albuterol Sulfate 3 ML AMPUL.NEB INHALATION ×3 (07:55→21:14)
--- NOTE | 2023-07-09 09:48 | CASEMGMT ---
Addendum entered by Payton Cline 07/09/23 10:12: Pt has a pox at home. Original Note: RN NUZHAT Assessment: Face to Face with pt for initial transition planning/care coordination assessment. RN NUZHAT introduced self and role at [facility], pt voices understanding and consents to assessment. Pt is A/O x4 and answers all questions appropriately at this time. Pt sitting up in chair on RA in no distress. Care providers, pharmacy, and demographics verified/updated. Hospitalist came in mid assessment, assessment completed after he finished seeing pt. Admitting Dx: COPD exac PCP:Brit Specialists: noman Brian Preferred Pharmacy: [facility] Insurance: [employer] [facility] Prescription Benefit: yes LNOK: Mitchell Clark, Living Arrangements: Pt lives with in a two story home with two steps to enter. Pt reports they use the main level only. Pt reports being I in ADL's and denies concerns at home. Transportation: Pt drives self and denies concerns with transportation. DME/HHC/SNF: Pt has a pox, CPAP with oxygen through it at 3L per report through [employer]. Email to [employer] to confirm. Pt also has a mobility scooter that she uses for vacations. Pt denies hx of HHC or SNF stays. Pt states no concerns with going home at time of dc. Pt states she lost her son in February and sometimes has a hard time being motivated. Pt denies need to speak to SW regarding this. Pt states she knows that physically she needs to get stronger and that she can do this on her own. She denies need for any therapy. 6 Clicks =21. Pt states no further concerns/needs. CM to follow. Advised pt to ask CM if any further question/concerns/needs arise, voices understanding. Pt Goal: Home Plan: Home, follow for increased oxygen needs
[2023-07-09] MEDS: Ceftriaxone 1 GM/50 ML BAG IV (10:10)
[2023-07-09] MEDS: 0.9% Saline Lock 10 ML Syringe IV ×2 (10:10→22:20)
[2023-07-09] MEDS: Pantoprazole Sodium 40 MG Tablet PO (10:10)
[2023-07-09] MEDS: Aspirin 81 MG TAB.CHEW PO (10:10)
[2023-07-09] MEDS: Enoxaparin 40 MG/0.4 ML Syringe SC (10:10)
--- NOTE | 2023-07-09 15:11 | PCM.PN.HOSP ---
Reason for Visit Reason for Visit: Diagnoses Chronic obstructive pulmonary disease with (acute) exacerbation (07/08/23) Acute respiratory failure with hypoxia (07/08/23) Subjective Subjective Patient seen at bedside. Sitting comfortably in bedside chair on 3 L nasal cannula, conversing normally, no acute distress. States she feels significantly better since admission. Her cough and sputum production have improved significantly already. She notices that her oxygen saturations have dropped when she gets up to go to the bathroom, however she has not felt that short of breath with exertion. Denies any fevers or chills. Denies any wheezing. No other acute concerns. Objective Data Objective Data Vital Signs: Vital Signs Temp Pulse Resp BP Pulse Ox O2 Del Method O2 Flow Rate 97.8 F 77 21 H 152/70 H 95 Nasal Cannula 3 07/09/23 09:00 07/09/23 11:06 07/09/23 11:06 07/09/23 09:00 07/09/23 10:06 07/09/23 10:06 07/09/23 10:06 Oxygen Flow Rate (L/min) 3 Oxygen Delivery Method Nasal Cannula Weight: 100.561 kg Body Mass Index (BMI) 39.9 Intake & Output: Intake and Output for Last 24 Hours 07/07/23 07/08/23 07/09/23 23:59 23:59 23:59 Intake Total 455 / 455 911 / 911 Balance 455 / 455 911 / 911 Lab / Micro Data Attestation: I reviewed the patient's lab results. 07/09/23 06:30 07/09/23 06:30 Labs: Laboratory Results - last 24 hr 07/08/23 15:40: WBC 14.0 H, RBC 4.52, Hgb 13.1, Hct 42.3, MCV 93.6, MCH 29.0, MCHC 31.0 L, RDW Std Deviation 49.2 H, RDW Coeff of Beena 14.4, Plt Count 281, MPV 9.7, Immature Gran % (Auto) 0.400, Neut % (Auto) 78.6 H, Lymph % (Auto) 10.0 L, [place] % (Auto) 9.7, Eos % (Auto) 1.0, Baso % (Auto) 0.3, Absolute Neuts (auto) 11.0 H, Absolute Lymphs (auto) 1.40, Nucleated RBC % 0, D-Dimer Quant (PE/DVT) 0.63 H*, Sodium 138, Potassium 3.9, Chloride 100, Carbon Dioxide 34.0 H, Anion Gap 4 L, BUN 11, Creatinine 0.69, Est GFR (MDRD) Af Amer 108, Est GFR (MDRD) Non-Af 90, BUN/Creatinine Ratio 16.0, Glucose 110 H, Calcium 8.9, Troponin I High Sens 24 07/09/23 06:30: WBC 12.8 H, RBC 4.52, Hgb 13.1, Hct 42.2, MCV 93.4, MCH 29.0, MCHC 31.0 L, RDW Std Deviation 47.9 H, RDW Coeff of Beena 14.0, Plt Count 282, MPV 9.8, Immature Gran % (Auto) 0.900, Neut % (Auto) 91.8 H, Lymph % (Auto) 5.0 L, [place] % (Auto) 2.0, Eos % (Auto) 0.0, Baso % (Auto) 0.3, Absolute Neuts (auto) 11.7 H, Absolute Lymphs (auto) 0.64 L, Nucleated RBC % 0, Sodium 137, Potassium 4.3, Chloride 100, Carbon Dioxide 21.0, Anion Gap 16 H, BUN 10, Creatinine 0.55, Estim Creat Clear Calc 41.99, Est GFR (MDRD) Af Amer 140, Est GFR (MDRD) Non-Af 116, BUN/Creatinine Ratio 18.1, Glucose 144 H, Calcium 8.9 Micro: Microbiology 07/08/23 19:03 Sputum, Expectorated/Coughed Gram Stain - Final 07/08/23 20:35 Mucosa - Nasopharyngeal Coronavirus COVID-19 PCR - Final Radiography Diagnostic Testing: Radiology Impression Chest X-Ray 07/08/23 15:50 IMPRESSION: Mild chronic interstitial changes. No acute disease Electronically Signed: Chidi Dillon MD at 16:05 EDT , Physical Exam Const alert and oriented x3 Constitutional Narrative: Pleasant female, sitting comfortably bedside chair, conversing normally, no acute distress. Satting in the low 90s on 3 L nasal cannula, no increased work of breathing noted. General Appearance: cooperative, comfortable and well kempt HEENT normocephalic, head/scalp atraumatic, hearing grossly normal bilaterally, nasal mucous membranes and turbinates normal and moist oral mucous membranes Eyes PERRL, EOMs intact bilaterally and conjunctivae normal Neck full ROM, no lymphadenopathy and supple Lymph Lymphatic: no lymphadenopathy noted Chest inspection of chest normal Resp Resp Narrative: Mildly decreased air movement bilaterally. No wheezing noted in upper airways. No rales or rhonchi noted. Cardio regular rate, regular rhythm, no murmurs and peripheral pulses 2+ throughout GI normal to inspection, nondistended, normoactive bowel sounds, soft to palpation, non-tender and non-distended Back/Spine normal ROM Extremity normal to inspection, full ROM and no pedal edema Skin no rashes or lesions noted Psych mental status grossly normal Assessment & Plan Assessment/Plan (1) COPD exacerbation: (2) Acute respiratory failure with hypoxia: PLAN: Plan Patient is a 67-year-old female with history significant for COPD on nocturnal 3 L through CPAP, GERD and anxiety/depression who presented to [facility] on 07/08 with worsening dyspnea. 1. Acute exacerbation of COPD, community-acquired pneumonia Acute exacerbation very likely secondary to pneumonia. Known history of COPD for last 9 to 10 years, follows with pulmonology outpatient. Wears a CPAP at night for sleep apnea and has 3 L run through the CPAP. Last COPD exacerbation was 5 to 6 years ago and patient states that her presentation was similar. Previous smoker, quit smoking about 9 years ago. Started on IV steroids and antibiotics on admission and patient feels significantly improved. Satting in low 90s on 3 L nasal cannula on 07/09 and has had improvement in wheezing and sputum production. Sputum culture with no growth to date. COVID-negative. D-dimer normal for her age. -Continue prednisone 40 mg daily and IV ceftriaxone and azithromycin. Plan for 5-day courses of steroids and antibiotics, stop date 07/12. Continue DuoNebs as needed. Continue home long-acting inhalers. 2. GERD -Stable. Continue home PPI. 3. Anxiety/depression -Stable. Continue home medications. DVT prophylaxis: Lovenox CODE STATUS: DNR CCA, DO NOT INTUBATE. Confirmed with patient on admission. Expected disposition: Home, 1 to 2 days Total clinical time spent by myself addressing the patient's medical issues, reviewing all of the data, and collaborating with patient's care team: 35 minutes. Charges/Coding Visit Charges Inpatient E&M: 61047 Subs Hosp L2
[2023-07-09] MEDS: Loratadine 10 MG Tablet PO (22:19)
[2023-07-09] MEDS: Fluticasone 0.05% 1 SPRAY NASAL.SRY 2 SPRAY NASAL (22:19)
[2023-07-09] MEDS: Escitalopram Oxalate 10 MG Tablet PO (22:19)
[2023-07-09] MEDS: Montelukast 10 MG Tablet PO (22:19)
[2023-07-10] VITALS (7 sets, daily range): BP systolic 126–147; BP diastolic 56–77; PULSE 81–88; RESP 16–18; TEMP 36.6–36.8; O2SAT 84–97
[2023-07-10] MEDS: Ipratropium/Albuterol Sulfate 3 ML AMPUL.NEB INHALATION ×2 (07:14→11:25)
[2023-07-10] MEDS: Pantoprazole Sodium 40 MG Tablet PO (08:15)
[2023-07-10] MEDS: Aspirin 81 MG TAB.CHEW PO (08:15)
[2023-07-10] MEDS: Enoxaparin 40 MG/0.4 ML Syringe SC (08:16)
[2023-07-10] MEDS: predniSONE 20 MG Tablet 40 MG PO (08:16)
[2023-07-10 11:27] LABS: Hematocrit 44.2 % (37-47); Hemoglobin 13.3 g/dL (12.0-15.0); Mean Corp Hgb Conc 30.1 g/dL (32-36); Mean Corpuscular Hgb 29.3 pg (27.0-32.0); Mean Corpuscular Volume 97.4 fL (81-99); Mean Platelet Vol. 9.9 fl (6.2-12.0); Platelet Count 257 K/mm3 (150-450); RBC Distribution Width CV 14.2 % (11.6-14.6); RBC Distribution Width SD 51.3 fl (35.1-43.9); Red Blood Count 4.54 M/mm3 (4.2-5.4); White Blood Count 15.5 K/mm3 (4.4-11.0)
--- NOTE | 2023-07-10 12:17 | CASEMGMT ---
Addendum entered by Payton Cline 07/10/23 13:09: LUIS NOLAND into pt room, pt aware of oxygen needs for homegoing. She is aware to call [employer] once home so portable tanks can be delivered. Pt denies further needs. Original Note: Updated rx for oxygen sent to [facility] via [facility]. Pt to be sent with portable tank from hospital as she reports she does not have one at home.
--- NOTE | 2023-07-10 12:47 | DCINST_ITS ---
Discharge Instructions Diet Discharge Diet: No restrictions Activity Discharge Activity: Return to Normal Activity Weight Bearing Status: Full weight bearing Follow Up Care Please Follow Up With: Christy Perea MD When: 1-2 weeks Test Results: Test results from this visit will be discussed in further detail at your follow- up appointment, if applicable. Pending Tests Upon Discharge: none Discharge Plan Admission Admit Date/Time: 07/08/23 17:12 Primary Reason for Your Visit: Acute exacerbation of COPD Attending Provider: Preston Pineda Primary Care Provider: Christy Perea Consulting Providers: Geoff Galvan Instructions Additional Instructions / Restrictions: Please complete 5-day courses of both azithromycin and prednisone. Use your pulse oximeter to check your oxygen saturation 3-4 times daily. Your goal oxygen saturation number is 88 to 94%. If it is below 88%, use supplemental oxygen as needed. Follow-up with your PCP as needed, and follow-up with your head mechanic in the next 4 to 6 weeks. Discharge Orders/Prescriptions Prescriptions: New prednisone 20 mg Tablet 40 mg PO BREAKFAST 3 Days Qty: 6 0RF azithromycin 500 mg tablet 500 mg PO DAILY 3 Days Qty: 3 0RF Continued escitalopram oxalate 5 mg tablet 10 mg PO QHS aspirin 81 mg tablet,chewable 81 mg PO DAILY calcium carbonate 500 MG tablet 500 mg PO DAILY montelukast 10 MG tablet 10 mg PO QHS albuterol sulfate 90 mcg/actuation HFA aerosol inhaler 2 puff Inhalation Q4H PRN PRN (Reason: Shortness Of Breath) pantoprazole 40 mg tablet,delayed release (DR/EC) 40 mg PO DAILY Patient Comments: TAKE ONE TABLET TWICE DAILY BEFORE MORNING AND EVENING MEALS Nurtec ODT 75 mg tablet,disintegrating 75 mg PO DAILY PRN (Reason: migraine) Patient Comments: TAKE 1 (ONE) TABLET BY MOUTH DAILY IF NEEDED FOR MIGRAINE cetirizine [24Hour Allergy] 10 mg tablet 10 mg PO QHS Trelegy Ellipta 200-62.5-25 mcg blister with device 1 inh inhalation DAILY fluticasone propionate 50 mcg/actuation spray,suspension 2 spray INTRANASAL QHS Discontinued fluticasone furoate-vilanterol 200-25 blister with device 2 puff Inhalation DAILY Referrals / Follow Up: Christy Perea MD [Primary Care Provider] - Disposition Disposition (needs filled in before D/C Order can be placed): Home, Self Care
--- NOTE | 2023-07-10 12:55 | PCM.DC.SUM ---
Providers Date of Admission: 07/08/23 Date of Discharge: 07/10/23 Primary Care Physician: Dr. Christy Perea MD Reason For Visit: COPD EXACERBATION Diagnosis Discharge Diagnosis (1) COPD exacerbation: Status: Chronic Code(s): J44.1 - Chronic obstructive pulmonary disease with (acute) exacerbation (2) Acute respiratory failure with hypoxia: Status: Acute Code(s): J96.01 - Acute respiratory failure with hypoxia Medications at Discharge Home Medications calcium carbonate 500 mg calcium (1,250 mg) tablet 500 mg PO DAILY calcium 09/07/18 montelukast 10 mg tablet 10 mg PO QHS allergies 09/07/18 albuterol sulfate 90 mcg/actuation aerosol inhaler 2 puff inhalation Q4H PRN PRN Shortness Of Breath 10/20/18 aspirin 81 mg chewable tablet 81 mg PO DAILY antiplatelet 10/20/18 escitalopram oxalate 5 mg tablet 10 mg PO QHS anxiety 10/20/18 pantoprazole 40 mg tablet,delayed release 40 mg PO DAILY GERD 08/10/21 cetirizine 10 mg tablet (24Hour Allergy) 10 mg PO QHS allergies 07/08/23 fluticasone fur. 200 mcg-umeclid 62.5 mcg-vilant 25 mcg inhalat.powder (Trelegy Ellipta) 1 inh inhalation DAILY SOB 07/08/23 fluticasone propionate 50 mcg/actuation nasal spray,suspension 2 spray intranasal QHS nasal dryness 07/08/23 rimegepant 75 mg disintegrating tablet (Nurtec ODT) 75 mg PO DAILY PRN migraine 07/08/23 azithromycin 500 mg tablet 500 mg PO DAILY 3 days #3 tabs 07/10/23 prednisone 20 mg tablet 40 mg (2 x 20 mg) PO BREAKFAST 3 days #6 tabs 07/10/23 Hospital Course Procedures - (Chest x-ray) Summary of Care Provided Minutes Spent on Discharge: 25 Hospital Course: Patient is a 67-year-old female with history significant for COPD on nocturnal 3 L through CPAP, GERD and anxiety/depression who presented to [facility] on 07/08 with worsening dyspnea. Short hospital course as noted below. Acute exacerbation of COPD secondary to community-acquired pneumonia: Known history of COPD for last 9 to 10 years, follows with pulmonology outpatient. Wears a CPAP at night for sleep apnea and has 3 L run through the CPAP. Last COPD exacerbation was 5 to 6 years ago and patient stated that her presentation was similar. Previous smoker, quit smoking about 9 years ago. Started on IV steroids and antibiotics on admission and patient felt significantly improved. Sputum culture negative. COVID-negative. D-dimer normal for her age. Patient did require supplemental oxygen on discharge, but notably she had home oxygen already set up as it was being run through her CPAP at night. Discharged on prednisone and azithromycin with plan to complete 5-day course, stop date 07/12. Continued home long-acting inhalers on discharge. Continued short acting rescue inhaler on discharge. Recommended close outpatient follow-up. Discharge diagnoses: ? Acute exacerbation of COPD with acute hypoxic respiratory failure, improving ? Community-acquired pneumonia, unclear organism ? GERD ? Anxiety/depression Outpatient follow-up: Required 2 to 3 L nasal cannula to maintain oxygen saturations greater than 90% on discharge. Recommend weaning off oxygen as able. Recommended close outpatient follow-up with pulmonology. Total clinical time spent by myself addressing the patient's discharge needs: 25 minutes. Physical Exam Const alert and oriented x3 Constitutional Narrative: Pleasant female, sitting comfortably bedside chair, conversing normally, no acute distress. Satting in the low 90s on 3 L nasal cannula, no increased work of breathing noted. General Appearance: cooperative, comfortable and well kempt HEENT normocephalic, head/scalp atraumatic, hearing grossly normal bilaterally, nasal mucous membranes and turbinates normal and moist oral mucous membranes Eyes PERRL, EOMs intact bilaterally and conjunctivae normal Neck full ROM, no lymphadenopathy and supple Lymph Lymphatic: no lymphadenopathy noted Chest inspection of chest normal Resp Resp Narrative: Mildly decreased air movement bilaterally. No wheezing noted in upper airways. No rales or rhonchi noted. Cardio regular rate, regular rhythm, no murmurs and peripheral pulses 2+ throughout GI normal to inspection, nondistended, normoactive bowel sounds, soft to palpation, non-tender and non-distended Back/Spine normal ROM Extremity normal to inspection, full ROM and no pedal edema Skin no rashes or lesions noted Psych mental status grossly normal Weight / BMI Weight Weight: 100.561 kg Body Mass Index (BMI) 39.9 ABG / Lab / Microbiology Data 07/10/23 11:10 07/09/23 06:30 Laboratory: Laboratory Results - last 24 hr 07/10/23 11:10: WBC 15.5 H, RBC 4.54, Hgb 13.3, Hct 44.2, MCV 97.4, MCH 29.3, MCHC 30.1 L, RDW Std Deviation 51.3 H, RDW Coeff of Beena 14.2, Plt Count 257, MPV 9.9 Microbiology: Microbiology 07/08/23 19:03 Sputum, Expectorated/Coughed Gram Stain - Final 07/08/23 19:03 Sputum, Expectorated/Coughed Respiratory Culture - Preliminary Appears to be normal respiratory maribel. Further studies to follow. 07/08/23 20:35 Mucosa - Nasopharyngeal Coronavirus COVID-19 PCR - Final D/C Instructions Discharge Diet: No restrictions Weight Bearing Status: Full weight bearing Pending Tests Upon Discharge: none Please Follow Up With: Christy Perea MD When: 1-2 weeks Meaningful Use Info Meaningful Use Diagnoses (Choose all that apply): None applicable Discharge Plan Admission Admit Date/Time: 07/08/23 17:12 Primary Reason for Your Visit: Acute exacerbation of COPD Attending Provider: Preston Pineda Primary Care Provider: Crhisty Perea Consulting Providers: Geoff Galvan Instructions Additional Instructions / Restrictions: Please complete 5-day courses of both azithromycin and prednisone. Use your pulse oximeter to check your oxygen saturation 3-4 times daily. Your goal oxygen saturation number is 88 to 94%. If it is below 88%, use supplemental oxygen as needed. Follow-up with your PCP as needed, and follow-up with your special projects manager in the next 4 to 6 weeks. Discharge Orders/Prescriptions Prescriptions: New prednisone 20 mg Tablet 40 mg PO BREAKFAST 3 Days Qty: 6 0RF azithromycin 500 mg tablet 500 mg PO DAILY 3 Days Qty: 3 0RF Continued escitalopram oxalate 5 mg tablet 10 mg PO QHS aspirin 81 mg tablet,chewable 81 mg PO DAILY calcium carbonate 500 MG tablet 500 mg PO DAILY montelukast 10 MG tablet 10 mg PO QHS albuterol sulfate 90 mcg/actuation HFA aerosol inhaler 2 puff Inhalation Q4H PRN PRN (Reason: Shortness Of Breath) pantoprazole 40 mg tablet,delayed release (DR/EC) 40 mg PO DAILY Patient Comments: TAKE ONE TABLET TWICE DAILY BEFORE MORNING AND EVENING MEALS Nurtec ODT 75 mg tablet,disintegrating 75 mg PO DAILY PRN (Reason: migraine) Patient Comments: TAKE 1 (ONE) TABLET BY MOUTH DAILY IF NEEDED FOR MIGRAINE cetirizine [24Hour Allergy] 10 mg tablet 10 mg PO QHS Trelegy Ellipta 200-62.5-25 mcg blister with device 1 inh inhalation DAILY fluticasone propionate 50 mcg/actuation spray,suspension 2 spray INTRANASAL QHS Discontinued fluticasone furoate-vilanterol 200-25 blister with device 2 puff Inhalation DAILY Referrals / Follow Up: Christy Perea MD [Primary Care Provider] - Disposition Disposition (needs filled in before D/C Order can be placed): Home, Self Care Charges/Coding Visit Charges Inpatient E&M: 17142 Disch Hosp
--- NOTE | 2023-07-10 13:40 | PHA.DC_ITS ---
Pharmacy [facility] has performed discharge medication reconciliation and counseling for this patient. 1. AZITHROMYCIN 500MG PO DAILY X 3 DAYS 2. PREDNISONE 40MG PO BREAKFAST X 3 DAYS The patient's discharge medication list was reviewed for discrepancies and discrepancies were resolved. The patient was counseled on the following discharge medications and changes in medications for homegoing were reviewed. The Reason for Use, instructions for use, and potential side effects were reviewed for all new medications. The patient's questions regarding all of their medications were answered. The patient was able to verbally demonstrate an understanding of their discharge medications. Patient counseled by pharmacy customer care specialistAna. Medications at Discharge Home Medications calcium carbonate 500 mg calcium (1,250 mg) tablet 500 mg PO DAILY calcium 09/07/18 montelukast 10 mg tablet 10 mg PO QHS allergies 09/07/18 albuterol sulfate 90 mcg/actuation aerosol inhaler 2 puff inhalation Q4H PRN PRN Shortness Of Breath 10/20/18 aspirin 81 mg chewable tablet 81 mg PO DAILY antiplatelet 10/20/18 escitalopram oxalate 5 mg tablet 10 mg PO QHS anxiety 10/20/18 pantoprazole 40 mg tablet,delayed release 40 mg PO DAILY GERD 08/10/21 cetirizine 10 mg tablet (24Hour Allergy) 10 mg PO QHS allergies 07/08/23 fluticasone fur. 200 mcg-umeclid 62.5 mcg-vilant 25 mcg inhalat.powder (Trelegy Ellipta) 1 inh inhalation DAILY SOB 07/08/23 fluticasone propionate 50 mcg/actuation nasal spray,suspension 2 spray intranasal QHS nasal dryness 07/08/23 rimegepant 75 mg disintegrating tablet (Nurtec ODT) 75 mg PO DAILY PRN migraine 07/08/23 azithromycin 500 mg tablet 500 mg PO DAILY 3 days #3 tabs 07/10/23 prednisone 20 mg tablet 40 mg (2 x 20 mg) PO BREAKFAST 3 days #6 tabs 07/10/23
== END 2023-07-10 14:09 | disposition home or self-care (01) | DRG 193 ==
LOC: ED 17:04 → MS3 17:32
PROVIDERS: Admitting Provider Family Medicine; Emergency Provider Emergency Medicine; PCP Family Medicine; Visit Provider Hospitalist
DX: J14 Pneumonia due to Hemophilus influenzae (principal); J96.01 Acute respiratory failure with hypoxia; J44.1 Chronic obstructive pulmonary disease with (acute) exacerbation; J44.0 Chronic obstructive pulmonary disease with (acute) lower respiratory infection; F32.A Depression, unspecified; K21.9 Gastro-esophageal reflux disease without esophagitis; G47.30 Sleep apnea, unspecified; F41.9 Anxiety disorder, unspecified; Z20.822 Contact with and (suspected) exposure to COVID-19; Z66 Do not resuscitate; Z79.51 Long term (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 inhaled steroids; Z79.82 Long term (current) use of aspirin; Z87.891 Personal history of nicotine dependence
CPT/HCPCS: 36415; 71046; 80048; 84484; 85025; 85027; 85379; 87070; 87077; 87205; 87635; 93005; 94640; 94668; 99284; A4216; J0696

== ENCOUNTER → 2023-09-06 | Outpatient (CLI) | payer MEDICARE, SELFPAY ==
--- NOTE | 2023-09-06 17:46 | CT_ITS ---
INDICATION: NICOTINE DEPENDENCE EXAMINATION: CT Low Dose CT Chest for Lung Cancer Screening TECHNIQUE: Helically acquired images were obtained of the chest with sagittal and coronal reconstructed images. Low-dose technique was utilized. COMPARISON: 03/30/2022 CT. FINDINGS: LUNGS, PLEURA AND LARGE AIRWAYS: No consolidation or edema. No pulmonary nodule. No pleural effusion. No pneumothorax. Centrilobular emphysematous changes of the lungs. THYROID: Unremarkable. HEART AND PERICARDIUM: Coronary artery calcifications are present. No pericardial effusion. MEDIASTINUM AND TAYLOR: No mediastinal or hilar adenopathy. Esophagus is unremarkable. No hiatal hernia. VESSELS: No thoracic aortic aneurysm. UPPER ABDOMEN: The visualized upper abdomen is unremarkable. BONES: No acute abnormality. CT/Low Dose CT Lung Screening IMPRESSION: No pulmonary nodules. Lung-RADS Category 1 (negative, <1% chance of malignancy). Recommend continuing annual screening with low-dose CT. Electronically Signed: Chidi Dean DO at 23:21 EDT ,
== END | disposition home or self-care (01) ==
LOC: CT 17:43
PROVIDERS: PCP Family Medicine; Visit Provider Internal Medicine Pulmonary Disease
DX: Z87.891 Personal history of nicotine dependence (principal)
CPT/HCPCS: 71271

== ENCOUNTER → 2023-10-01 | Outpatient (CLI) | payer MEDICARE, SELFPAY ==
--- NOTE | 2023-10-01 12:59 | BI_ITS ---
MAMMOGRAPHY - BILATERAL SCREENING REASON FOR EXAM: Female, 68 years old. Routine annual screening examination. PERTINENT HISTORY: Aunt with breast cancer. TECHNIQUE: Digital bilateral breast tom (3D mammographic acquisition) in the CC and MLO projections. 2-D mediolateral oblique (MLO) and craniocaudad (CC) views of both breasts were obtained. CAD: Full Field Digital Mammography with Computer Added Detection was performed. COMPARISON: Comparison is made with prior study dated September 28, 2022 and August 16, 2021. FINDINGS: Breast Composition: The breasts are almost entirely fatty. There are no dominant masses or suspicious calcifications. Stable benign-appearing bilateral axillary lymph nodes. No other significant abnormalities are identified. There has been no significant change since the prior study. BI/SCRN MAMM (CAD)W/TOM BILAT IMPRESSION: Stable bilateral screening mammogram. Yearly follow-up mammogram recommended. (A) ASSESSMENT CATEGORY: BIRADS Category 2: Benign. A letter regarding these results will be sent to the patient by the facility within 30 days. Approximately 10% of breast cancers are not detected by mammography. A normal mammogram should not delay biopsy of a clinically suspicious abnormality. [id number] Electronically Signed: Sabas Nunn MD at 14:42 EST ,
== END | disposition home or self-care (01) ==
LOC: OPBI 12:58
PROVIDERS: PCP Family Medicine; Referring Provider Family Medicine; Visit Provider Family Medicine
DX: Z12.31 Encounter for screening mammogram for malignant neoplasm of breast (principal)
CPT/HCPCS: 77063; 77067

== ENCOUNTER → 2023-11-14 | Outpatient (CLI) | payer MEDICARE, SELFPAY ==
--- NOTE | 2023-11-14 14:18 | PCM.PR.HP ---
History of Present Illness General Arrival date:: 11/14/23 Arrival time:: 14:18 Date of Referral:: 10/26/23 Date of Evaluation: 11/14/23 Referring Physician: Dr. Brian Primary Diagnosis: COPD Gold III History of Present Pulmonary Event [facility] Breathless Scale: When is the patient short of breath? Y/N Grade: Description of Breathlessness: 0 I only get breathless with strenuous exercise. 1 I get short of breath when hurrying on level ground or walking up a slight hill. 2 On level ground, I walk slower than people of the same age because of breathless, or have to stop for breath when walking at my own pace. 3 I stop for breath after walking 100 yards or after a few minutes on level ground. 4 I am too breathless to leave the house or I am breathless when dressing. Respiratory Problems: Yes Fatigue, Wheezing, Able to Speak in Full Sentences, Hoarseness, Anxiety, Panic, Dyspnea with Activity and Cough with Secretions; No Retain Secretions, Limited Range of Motion, Chest Pain, Dizziness, Ankle Swelling, Dyspnea at Rest or Dyspnea Lying Down Flat Medications Home Medications calcium carbonate 500 mg calcium (1,250 mg) tablet 500 mg PO DAILY calcium 09/07/18 montelukast 10 mg tablet 10 mg PO QHS allergies 09/07/18 albuterol sulfate 90 mcg/actuation aerosol inhaler 2 puff inhalation Q4H PRN PRN Shortness Of Breath 10/20/18 aspirin 81 mg chewable tablet 81 mg PO DAILY antiplatelet 10/20/18 escitalopram oxalate 5 mg tablet 10 mg PO QHS anxiety 10/20/18 pantoprazole 40 mg tablet,delayed release 40 mg PO DAILY GERD 08/10/21 cetirizine 10 mg tablet (24Hour Allergy) 10 mg PO QHS allergies 07/08/23 fluticasone fur. 200 mcg-umeclid 62.5 mcg-vilant 25 mcg inhalat.powder (Trelegy Ellipta) 1 inh inhalation DAILY SOB 07/08/23 fluticasone propionate 50 mcg/actuation nasal spray,suspension 2 spray intranasal QHS nasal dryness 07/08/23 rimegepant 75 mg disintegrating tablet (Nurtec ODT) 75 mg PO DAILY PRN migraine 07/08/23 azithromycin 500 mg tablet 500 mg PO DAILY 3 days #3 tabs 07/10/23 prednisone 20 mg tablet 40 mg (2 x 20 mg) PO BREAKFAST 3 days #6 tabs 07/10/23 Allergies Allergies house dust Allergy (Verified 07/08/23 19:55) Unknown mold Allergy (Verified 07/08/23 19:55) Unknown Secretions Normal Color:: clear Thick:: Yes Thin:: No Amount/Day:: 1 TSP Cough:: No Sleep Disorder Evaluation Hx of Sleep Apnea: Yes Do you snore loudly (louder than talking or can be heard through closed doors)?: Yes Do you often feel tired/ fatigued/ sleepy during daytime?: Yes Has anyone observed you stop breathing during sleep?: No History of Hypertension (for STOP score): No STOP Results: Positive Medical Utilization Medical Devices Do you use a spacer device with your inhalers?: No Medical Utilization Number of hospital visits in the last year?: 1 Number of emergency room visits in the last year?: 1 Do you see your physician on a regular schedule?: Yes How often?: 4 Advanced Directives Advanced Directives Power of [employer] Manager: Yes Living Will: Yes Advance Directives Information Provided: No Advance Directives on File: No DNR Order?:: No Past Medical History Covid-19 Screening Physicial Symptoms Other Clinical Concerns Exposure Risk Pertinent Comorbidities 65 years or older:: Yes Has a chronic lung disease or moderate to severe asthma:: Yes Medical History Past Medical History (Updated 09/14/23 @ 00:01 by Cameron Sow) Arthritis M19.90 Cellulitis and abscess of face L03.211, L02.01 Cellulitis of left forearm L03.114 Depression F32.A Hemorrhoids K64.9 Knee pain M25.569 Lung disease J98.4 Migraines G43.909 Smoker F17.200 SOB (shortness of breath) R06.02 Surgical History Past Surgical History History of appendectomy Z90.49 Hx of removal of ovary Significant Family History Family History Other Cancer Heart disease Current/ Previous Services Pulmonary Rehab:: Yes Social History Smoking History Smoking Status: Former smoker Years Smokin Packs Smoked per Day: 1.5 Hx Tobacco Use: Yes Alcohol Use Alcohol Usage: Yes (occasional drink) Occupation Occupation (List type of work in comments):: Retired Hobbies, Recreation, Social Activities Hobbies: Reading Recreational Activities: I am able to engage in all my recreational activities Functioning ADL/IADL Current Ability Current Ability: Dependent: Self-Care (e.g.,grooming, dressing, & bathing), Dependent: Ambulation, Dependent: Transfer and Dependent: Household tasks (e.g., light meal prep, laundry, shopping) Pt Functioning Prior to Problem Prior Functioning: Self-Care (e.g.,grooming, dressing, & bathing): Dependent, Ambulation: Dependent, Transfer: Dependent and Household tasks (e.g., light meal prep, laundry, shopping): Dependent Social Environment Status Marital Status: Current Living Arrangements Living Environment:: Spouse Children How many children do you have?: 3 Do any of your children live nearby?: Yes Safety Do you feel safe in your surroundings?: Yes Assistance Do you need any assistance at home?: no Review of Systems Review of Systems Review of Systems Respiratory: Reports SOB upon Exertion, Sputum production (minimal), Appetite, Normal, Fatigue and Sleep, Normal; Denies Cough, Hemoptysis, Pleuritic Pain, SOB at Rest, Wheezing, Dizziness/Lightheadedness, PVD or Sexual changes Pain Is Patient Pain Free?: Yes Pain Location: other (general arthritis) Pain Level: 8/10 Risk Factor Assessment Vital Signs Pulse Rate: 83 Pulse Rhythm: Regular Pulse Ox: 89 Blood Pressure: 160/84 Obesity Height: 5 ft 2 in Weight:: 217 lb Weight in Pounds: 217.0 lbs Body Mass Index (BMI): 39.6 Nutritional Referral for Obesity: No (declines) Physical Activity Physical Inactivity: Reg Exercise 30 min/day Risk Stratification Risk Guidelines: Moderate Risk: Risk Factor for Smoking, Risk Factor for Dyslipidemia, Risk Factor for Diabetes, Risk Factor for Hypertension, Risk Factor for Sedentary Lifestyle and Risk Factor for Depression and Highest Risk: Risk Factor for Obesity For Smoking Smoking Risk Guidelines For Dyslipidemia Dyslipidemia Risk Guidelines For Diabetes Mellitus Diabetes Risk Guidelines For Obesity/Overweight Obesity/Overweight Risk Guidelines For Hypertension Hypertension Risk Guidelines For Sedentary Lifestyle Sedentary Lifestyle Risk Guidelines For Depression Depression Risk Guidelines Motivation Motivation to Participate On a scale of 1 to 10, how prepared are you to commit to attending program?: 8 What do you see as barriers to successfully being able to complete the program?: no What do you see as the benefits of succesfully completing the program? In other words, what do you hope to get out of participating in the program?: more stamina, strength Are there issues you are dealing with that will interfere with completing the program?: no Do you have a spouse or signficant other, family or friends who will help support you to complete the program?: yes Diagnostic Data Review Pulmonary Function Test FEV1:: 27 FVC:: 66 FEV1/FVC%:: 40 Gold Classification: GOLD class III(severe COPD)with FEV1/FVC<70, 30%</=FEV1< 50% predicted
[2023-11-14 14:47] VITALS: PULSE 83; O2SAT 89
[2023-11-14 14:51] VITALS: BP 160/84; BMI 39.6
--- NOTE | 2023-11-15 06:22 | PCM.PR.TP ---
General Information2 General Information Admitting Diagnosis: Chronic Obstructive Pulmonary Disease (COPD) Secondary Diagnosis: COVID-19 05/2022, Obstructive Sleep APnea, GERD, Hiatal Hernia PFT FEV1:: 27 FVC:: 66 FEV1/FVC%:: 40 Personal Learning Style/Barriers Barriers to Learning: Vision impaired Stage of change r/t lifestyle modifications: Prepared Educational Classes [place]: Living with Chronic Lung Disease: Initial Assessment, Breathing Retraining: Initial Assessment, Exercise: Initial Assessment, Energy Conservation: Initial Assessment, Sleep problems: Initial Assessment and Airway clearance: Initial Assessment Education/Goals [place] Patient Goals: Increase muscle strength: Initial Assessment, Experience less dyspnea: Initial Assessment, Improve energy level: Initial Assessment, Participate in home exercise: Initial Assessment, Improve the ability to cope with ADLs: Initial Assessment, Improve knowledge of lung disease: Initial Assessment, Control panic/anxiety: Initial Assessment, Improve diet and nutrition: Initial Assessment and Reduce Stress/relaxation techniques: Initial Assessment Exercise - Initial Assessment Visit Date of Eval: 11/14/23 Session Number:: 0 (Pre-program evaluation) Problem/Goals Problems: No regular exercise, Knowledge deficit exercise guidelines and Knowledge deficit exercise safety Goals:: Aerobic exercise 30-60 mins x 12 weeks [36 sessions] Physician Prescribed Exercise Modalities: Treadmill, Airdyne and NuStep Frequency (days/week): 3 Duration (Minutes):: 30-45 Intensity: 60-80% of age predicted maximum heart rate reserve Current METSs:: 3.0 Target HR:: 113 (THRR 90-113) Resting Blood Pressure: 132/80 Minimum SpO2 with exercise: 94 EKG Type: NSR Plan Plan and Plan to Review:: Benefits of exercise, Core components of exercise, How to measure dyspnea level, How to monitor dyspnea level, Exercise intensity, Exercise safety guideline, Home exercise guidelines and Jeanie: 3-4/11-13 Home Exercise Mode: Other (Physically active, no regular exercise) Nutrition/Wt Mgmt - Initial Visit Date of Eval: 11/15/23 Session Number:: 0 (Pre-evaluation) Problems/Goals Problems: Overweight Goals: Wt Loss 1-2 lbs per week Weight Management Knowledge Deficit Management of:: Overweight and Role of exercise in weight control Admit Height:: 5 ft 2 in Admit Weight:: 217 lb Admit BMI:: 39.6 Intervention Referral to dietitian:: Yes Will attend diet classes:: Yes Intervention/Plan: Instruct on ideal BMI & set weight loss goal w/patient, Assist pt to ID & incorporate diet changes for weight loss by S9, Refer to Structured Weight Loss program as appropriate and Encourage goal of using 250-300dcal per session for weight loss Plan Nutrition Plan: Yes: Review BMI or WC & identify target wt & strategies for wt control, Yes: Nutrition education class:, Yes: Weight control education class: and Yes: Education re: Need for ongoing weight monitoring Nutrition/Wt Mgmt - 30-Day Visit Session Number:: 0 (Pre-evaluation) Weight Management Height: 5 ft 2 in Weight:: 217 lb BMI: 39.6 Nutrition/Wt Mgmt - 60-Day Visit Session Number:: 0 (Pre-evaluation) Weight Management Height: 5 ft 2 in Weight:: 217 lb BMI: 39.6 Nutrition/Wt Mgmt - 90-Day Visit Session Number:: 0 (Pre-evaluation) Weight Management Height: 5 ft 2 in Weight:: 217 lb BMI: 39.6 Nutrition/Wt Mgmt - Final Visit Session Number:: 0 (Pre-evaluation) Weight Management Height: 5 ft 2 in Weight:: 217 lb BMI: 39.6 Psychosocial - Initial Assess Visit Date of Eval: 11/15/23 Session Number:: 0 (Pre-evaluation) Problems/Goals History of Emotional Disorders: None Psychosocial Goals: 1. Patient is free from overwhelming symtoms of depression (or anxiety Psychosocial Test Tool Used:: Pulmonary QOL and PHQ-9 Questionnaire Referral to Behavioral Health PS - Interventions: Yes: Attend Stress Management Classes and No: Referral to Behavioral Health if PHQ-9 score >9:, No: Referral to [facility] and No: Referral to Physician if PHQ-9 if score is 5-9: Intervention/Plan: See List Interventions/Plan:: Assess stressors,coping strategies & signs of derpression on admission, Instruct/assist pt to develop coping & personal stress Mgt strategies, Instruct patient to recognize signs & symptoms of depression and Instruct patient to recog Psychosocial - 30-Day Visit Session Number:: 0 (Pre-evaluation) Problems/Goals History of Emotional Disorders: None Psychosocial Goals: 1. Patient is free from overwhelming symtoms of depression (or anxiety Psychosocial Test Tool Used:: Pulmonary QOL and PHQ-9 Questionnaire Referral to Behavioral Health PS - Interventions: Yes: Attend Stress Management Classes and No: Referral to Behavioral Health if PHQ-9 score >9:, No: Referral to [facility] and No: Referral to Physician if PHQ-9 if score is 5-9: Plan Interventions/Plan:: Assess stressors,coping strategies & signs of derpression on admission, Instruct/assist pt to develop coping & personal stress Mgt strategies, Instruct patient to recognize signs & symptoms of depression and Instruct patient to recog Psychosocial - 60-Day Visit Session Number:: 0 (Pre-evaluation) Problems/Goals History of Emotional Disorders: None Psychosocial Goals: 1. Patient is free from overwhelming symtoms of depression (or anxiety Psychosocial Test Tool Used:: Pulmonary QOL and PHQ-9 Questionnaire Referral to Behavioral Health PS - Interventions: Yes: Attend Stress Management Classes and No: Referral to Behavioral Health if PHQ-9 score >9:, No: Referral to [facility] and No: Referral to Physician if PHQ-9 if score is 5-9: Plan Interventions/Plan:: Assess stressors,coping strategies & signs of derpression on admission, Instruct/assist pt to develop coping & personal stress Mgt strategies, Instruct patient to recognize signs & symptoms of depression and Instruct patient to recog Psychosocial - 90-Day Visit Session Number:: 0 (Pre-program evaluation) Problems/Goals History of Emotional Disorders: None Psychosocial Goals: 1. Patient is free from overwhelming symtoms of depression (or anxiety Psychosocial Test Tool Used:: Pulmonary QOL and PHQ-9 Questionnaire Referral to Behavioral Health PS - Interventions: Yes: Attend Stress Management Classes and No: Referral to Behavioral Health if PHQ-9 score >9:, No: Referral to [facility] and No: Referral to Physician if PHQ-9 if score is 5-9: Plan Interventions/Plan:: Assess stressors,coping strategies & signs of derpression on admission, Instruct/assist pt to develop coping & personal stress Mgt strategies, Instruct patient to recognize signs & symptoms of depression and Instruct patient to recog Psychosocial - Final Assess Visit Session Number:: 0 (Pre-program evaluation) Problems/Goals History of Emotional Disorders: None Psychosocial Goals: 1. Patient is free from overwhelming symtoms of depression (or anxiety Psychosocial Test Tool Used:: Pulmonary QOL and PHQ-9 Questionnaire Referral to Behavioral Health PS - Interventions: Yes: Attend Stress Management Classes and No: Referral to Behavioral Health if PHQ-9 score >9:, No: Referral to [facility] and No: Referral to Physician if PHQ-9 if score is 5-9: Plan Interventions/Plan:: Assess stressors,coping strategies & signs of derpression on admission, Instruct/assist pt to develop coping & personal stress Mgt strategies, Instruct patient to recognize signs & symptoms of depression and Instruct patient to recog Oxygen & Oxygen Titration Init Visit Date of Eval: 11/15/23 Session Number:: 0 (Pre-evaluation) Initial Assessment Oxygen on Admission: Continuous home use, Oxygen w/activity, Oxygen at HS and CPAP/BIPAP SpO2:: 94 Port O2:: 3 liters Patient Reports:: Non-productive cough Goal Oxygen & Oxygen Tritration Goals: Effective hypoxemia control and Uses O2 as Rx'd/safely Plans Plan: Monitor SpO2 rest & with exercise, Train appropriate O2 use at rest, Train appropriate O2 use with exercise and Train O2 safety & systems Reviewed prescribed medications:: Purpose Instruct correct technique/timing & care:: MDI, DPI and Nebulizer Bronchial Hygiene Plan: Controlled cough and Hydration Oxygen & Oxygen Titration 30D Visit Session Number:: 0 (Pre-program evaluation) Reassessment SpO2:: 94 Oxygen & Oxygen Titration 60D Visit Session Number:: 0 (Pre-program evaluation) Reassessment SpO2:: 94 Oxygen & Oxygen Titration 90D Visit Session Number:: 0 (Pre-program evaluation) Reassessment SpO2:: 94 Oxygen & Oxygen Titration GAEL Visit Session Number:: 0 (Pre-program evaluation) Reassessment SpO2:: 94 Core Components - Initial Visit Date of Eval: 11/15/23 Session Number:: 0 (Pre-program evaluation) Hypertension Hypertension Diagnosis:: Hypertension ICD-10 I10 BP: 132/80 [place] [employer] Hypertension Guidelines Low Sodium diet: No Outcomes/Goals: Able to verbalize/achieve optimal blood pressure <130/80 and Incorporates diet changes & exercise for blood pressure control by DC Tobacco - Initial Assessment Tobacco Program Goals Do you have family support?: Yes Tobacco Use: Non-smoker Do you use smokeless tobacco?: No Smoking Cessation Referral:: No Individual Education/Counseling:: No Education Schedule Given:: Yes Gave Education Materials For:: Pulmonary Disease, Risk Factors, Breathing Techniques, Medical Compliance, Pulmonary A&P, Exacerbation Signs & Symptoms and Stress & Relaxation Exacerbation Mgmt & Airway Clearance Problems:: Hypoxemia Hypoxemia Goals:: Hypoxemia managed, Port system and Using O2 as Rx's safely Bronchial Hygiene Problems:: Respiratory infection Prevention/Management Goals: Pt demonstrates effective cough, effective secretion clearance. and Pt describes signs and symptoms of infection. Patient Reports:: Non-productive cough Plan: Monitor SpO2 rest & with exercise, Train appropriate O2 use at rest, Train appropriate O2 use with exercise and Train O2 safety & systems Instruct correct technique/timing & care:: MDI, DPI and Nebulizer Bronchial Hygiene Plan: Controlled cough and Hydration Medication Interventions/plans: Instruct on medication effects & side effects Medication Goals: Correct technique/timing & care of MDI, DPI, nebulizer, and spacer. Does pt report taking home meds as prescribed?: Yes Medications: Yes: MDI, Yes: DPI and Yes: NEB and No: Spacer (Has one at home does not use) Reviewed prescribed medications:: Purpose Diabetes Diabetes:: No Referral to dietitian:: Yes Will attend diet classes:: Yes Core Components - 30 DAYS Visit Session Number:: 0 (Pre-program evaluation) Hypertension Hypertension Diagnosis:: Hypertension ICD-10 I10 Resting Blood Pressure:: 132/80 [place] [employer] Hypertension Guidelines Outcomes/Goals: Able to verbalize/achieve optimal blood pressure <130/80 and Incorporates diet changes & exercise for blood pressure control by DC Tobacco - 30-Day Tobacco Program Goals Do you have family support?: Yes Tobacco Use: Non-smoker Do you use smokeless tobacco?: No Smoking Cessation Referral:: No Education Schedule Given:: Yes Gave Education Materials For:: Pulmonary Disease, Risk Factors, Breathing Techniques, Medical Compliance, Pulmonary A&P, Exacerbation Signs & Symptoms and Stress & Relaxation Diabetes Diabetes:: No Core Components - 60 DAYS Visit Session Number:: 0 (Pre-program evaluation) Hypertension Hypertension Diagnosis:: Hypertension ICD-10 I10 Resting Blood Pressure:: 132/80 [place] [employer] Hypertension Guidelines Outcomes/Goals: Able to verbalize/achieve optimal blood pressure <130/80 and Incorporates diet changes & exercise for blood pressure control by DC Tobacco - 60-Day Tobacco Program Goals Do you have family support?: Yes Tobacco Use: Non-smoker Do you use smokeless tobacco?: No Smoking Cessation Referral:: No Individual Education/Counseling:: No Education Schedule Given:: Yes Gave Education Materials For:: Pulmonary Disease, Risk Factors, Breathing Techniques, Medical Compliance, Pulmonary A&P, Exacerbation Signs & Symptoms and Stress & Relaxation Diabetes Diabetes:: No Core Components - 90 DAYS Visit Session Number:: 0 (Pre-program evaluation) Hypertension Hypertension Diagnosis:: Hypertension ICD-10 I10 Resting Blood Pressure:: 132/80 [place] [employer] Hypertension Guidelines Outcomes/Goals: Able to verbalize/achieve optimal blood pressure <130/80 and Incorporates diet changes & exercise for blood pressure control by DC Tobacco - 90-Day Tobacco Program Goals Do you have family support?: Yes Tobacco Use: Non-smoker Do you use smokeless tobacco?: No Smoking Cessation Referral:: No Individual Education/Counseling:: No Education Schedule Given:: Yes Gave Education Materials For:: Pulmonary Disease, Risk Factors, Breathing Techniques, Medical Compliance, Pulmonary A&P, Exacerbation Signs & Symptoms and Stress & Relaxation Diabetes Diabetes:: No Core Components - Final Visit Session Number:: 0 (Pre-program evaluation) Hypertension Hypertension Diagnosis:: Hypertension ICD-10 I10 Resting Blood Pressure:: 132/80 [place] [employer] Hypertension Guidelines Outcomes/Goals: Able to verbalize/achieve optimal blood pressure <130/80 and Incorporates diet changes & exercise for blood pressure control by ME Tobacco - Final Tobacco Program Goals Do you have family support?: Yes Tobacco Use: Non-smoker Do you use smokeless tobacco?: No Smoking Cessation Referral:: No Individual Education/Counseling:: No Education Schedule Given:: Yes Diabetes Diabetes:: No Patient Health Questionnaire PHQ-9 Screening Initial Assessment: 1. Little interest or pleasure in doing things: Several days 2. Feeling down, depressed, or hopeless: Several days 3. Trouble falling or staying asleep, or sleeping too much: Several days 4. Feeling tired or having little energy: Several days 5. Poor appetite or overeating: Not at all 6. Feeling bad about yourself -- or that you are a failure or have let yourself or your family down: Not at all 7. Trouble concentrating on things, such as reading the newspaper or watching television: Not at all 8. Moving or speaking so slowly that other people could have noticed. Or the opposite - being so fidgety or restless that you have been moving around a lot more than usual: Not at all 9. Thoughts that you would be better off , or of hurting yourself in some way: Not at all How difficult have these problems made it for you to do your work, take care of things at home, or get along with other people?: Not difficult at all Total Score: 4 Knowledge Questionaire (BCKQ) Information Information: [place] COPD Knowledge Questionnaire (BCKQ) This questionnaire is designed to find out what you know about your lung problem. It should be completed without help form anyone else. This usually takes between 10 and 20 minutes. Your answers will help us to find out what information you need to help you to understand and manage your lung condition. Chai the mentasta which you think is the correct answer. Questions 1. In COPD: b. COPD can only be confirmed by breathing tests: Don't know c. In COPD ther is usually gradual worsening over time: True d. In COPD oxygen levels in the blood are always low: False e. COPD is usually in people less than 40 years old: False 2. COPD: Matthew than 80% of COPD cases are caused by cigarette smoking: True b. COPD can be caused by occupational dust exposure: True c. Longstanding asthma can develop into COPD: Don't know d. COPD is commonly an inherited disease: False e. Women are less vunerable to the effects of cigarette than men: False 3. The following symptoms are Common in COPD: a. Swelling of the ankles is common in COPD:: True b. Fatigue [tiredness] is common in COPD: True c. Wheezing is common in COPD: True d. Crushing chest pain is common in COPD: Don't know e. Rapid weight loss is common in COPD: False 4. Breathlessness in COPD: a. Severe breathlessness prevents travel by air: True b. Breathlessness can be worsened by eating large meals: True c. Breathlessness means that your oxygen levels are low: False d. Breathlessness is a normal response to exercise: True e. Breathlessness is primarily caused by a narrowing of the bronchial tubes: Don't know 5. Phlegm (sputum): a. Coughing phlegm is a common symptom in COPD: True b. Clearing phlegm is more difficult if you get dehydrated: False c. Bronchodilator inhalers can help clear phlegm: True d. Phlegm causes harm if swallowed: Don't know e. Clearing phlegm can be assisted by breathing exercises: True 6. Chest infections / exacerbations: a. Chest infections often cause coughing of blood: False b. Chest infection phlegm usually becomes coloured (ylw/grn): True cExerbations (episodes of worsening) can occur in the absence of chest infection: Don't know d. Chest infections are always accompanied by a high temperature: False e. Steroid tablets should be taken whenever there is an exacerbation: Don't know 7. Excercise in COPD: aWalking excercises better than breathing to improve fitness: True b. Exercise should be avoided as it strains the lungs: False c. Exercise can help maintain your bone density: True d. Exercise helps relieve depression: True e. Exercise should be stopped if it makes you breathless: False 8. Smoking: a. Stopping smoking will reduce the risk of heart disease: True b. Stopping smoking will slow down further lung damage: True c. Stopping smoking is pointless as the damage is done: False d.Stopping smoking usually results in improved lung function: True eNicotine replacement therapy only available on prescription: True 9. Vaccination: a. A flu jab is recommended every year: True b. You can get flu from having a flu jab: False c. You can only have a flu jab if you are 65 or over: False d. A pneumonia jab protects against all forms of pneumonia: False e.You can have a pneumonia jab and a flu job on the same day: True 10. Inhaled bronchodilators: a. Bronchodilators act quickly (within 10 minutes): False b. Both short & long acting bronchodilators can be taken on the same day: True c. Spacers (volumatic,nebuhaler,serochamber)should be dried w/atowel after washing: False d. A spacer device increases the medication to the lungs: True e. Tremor may be a side effect of bronchodilators: True 11. Antibiotic treatment in COPD: a. To be effective, the course should last at least 10 days: Don't know b. Excessive use of antibiotics can cause resistant bacteria (germs): True c. Antibiotics will clear all chest infections: False d. Antibiotic treatment is necessary for an exacerbation (worsening) however mild: Don't know e. Seek advice if antibiotics cause severe diarrhoea: True 12. Steroid tablets given for COPD (eg Prednisolone): a. Steroid tablets help strengthen muscles: False b. Steroid tablets should be avoided if there is a chest infection: False c. The risk of long-term side effects due to steroids is less w/short courses then w/continous treatment: True dIndigestion is common side effect from using steroid tablet: True e. Steroid tablets can increase your appetite: True 13. Inhaled steroids (brown, red or orange): a. Inhaled steroids should be stopped if you are given steroid tablets: False bSteroid inhalers can be used for rapid relief breathlessnes: False c. Spacer devices reduce the risk of getting thrush in the mouth: Don't know d.Steroid inhaler should be taken before your bronchodilator: Don't know e. Inhaled steroids improve lung function in COPD: True COPD Assessment Test [CAT] Questions Never cough = 0, Cough all the time = 5: 1 No phlegm = 0, Chest full of phlegm = 5: 1 No chest tightness = 0, Chest very tight = 5: 3 No breathless w/exertion = 0, Very breathless w/exertion = 5: 5 No limitations w/activity = 0, Very limited w/activity = 5: 4 Confident leaving home = 0, Not at all confident = 5: 2 Sleep soundly = 0, Don't sleep soundly = 5: 1 Lots of energy = 0, No energy at all = 5: 3 Total CAT score:: 20 Self-Efficacy 6-Item Scale Initial Assessment: We would like to know how confident you are in doing certain activities. Please select your confidence level for: Fatigue Select Number: 4 Physical Discomfort or Pain Select Number: 9 Emotional Distress Select Number: 9 Other Symptoms or Health Problems Select Number: 8 Different Tasks and Activities Select Number: 8 Medication Select Number: 8 Total Score:: 7 Nutrition Survey Nutrition Survey Instructions Scoring Instructions Nutrition Survey Initial: Have you lost >10 lbs over the past 2 months without trying?: No Are you following a special diet at home for diabetes, low fat, or low salt?: No Are you interested in meeting with a dietitian for help understanding your diet?: Yes Do you eat less than 3 meals a day?: No Do you eat fatty meats (mueller, sausage, ribs, etc), fried foods, desserts, large amounts of salad dressings, margarine, butter, or cheese most days?: No Do you have food allergies? [Enter types in comment field]: No Do you eat in restaurants more than 3 times a week?: No Do you season food with salt, seasoning salt, or garlic salt?: Yes Do you used canned, boxed, frozen meals, or soups, seasoning packets?: No Total Score:: 2
[2023-11-15 06:43] VITALS: BP 132/80; O2SAT 94
[2023-12-18 08:44] VITALS: BMI 39.6
== END | disposition home or self-care (01) ==
LOC: PR 14:09
PROVIDERS: PCP Family Medicine; Referring Provider Internal Medicine Pulmonary Disease; Visit Provider Internal Medicine Pulmonary Disease
DX: J44.9 Chronic obstructive pulmonary disease, unspecified (principal)

== ENCOUNTER → 2023-11-29 | Outpatient (CLI) | payer MEDICARE, SELFPAY ==
[2023-11-15 06:43] VITALS: BMI 39.6
--- OUTSIDE RECORDS SUMMARY | 2023-11-29 11:50 | XMS RPT_ITS | CCD ---
Author Name Unknown Address [address] [facility] [address] [place] [address] Organization [facility] Care Team Providers Care Director Property Name Role Phone Unavailable Primary Care Provider Unavailabl e Mitchell Millard Unavailable Mitchell Millard Unavailable Allergies Allergy Classification Reported Allergen(s) Allergy Type Date of Onset Reaction(s) Facility (5 sources) Feather Drug Allergy 06-30-2022 [facility] Work Phone: (5 sources) House dust mite Allergy to substance 06-30-2022 [facility] Work Phone: (5 sources) Mold Extract Drug Allergy 06-30-2022 [facility] Work Phone: Medications Completed/Discontinued Medications Medication Drug Class(es) Dates Sig (Normalized) Sig (Original) sensor 200 actuat albuterol 0.09 mg/actuat dry powder inhaler (5 sources) beta2-Adrenergic Agonist Start: 06-30-2022 albuterol sulfate (PROAIR DIGIHALER) 90 mcg/actuation aebs Inhale 2 Inhalation as instructed four times daily. 0 06/30/2022 Active Problems Problem Classification Problem Date Documented Da te Episodic/Chronic Chronic obstructive pulmonary disease and bronchiectasis (2 sources) Severe chronic obstructive pulmonary disease; Translations: [Chronic obstructive pulmonary disease, unspecified] Chronic Other screening for suspected conditions (not mental disorders or infectious disease) (1 source) Echocardiogram abnormal; Translations: [Abnormal findings on diagnostic imaging of heart and coronary circulation] Episodic Pulmonary heart disease (2 sources) Secondary pulmonary hypertension; Translations: [Other secondary pulmonary hypertension] Chronic Results Test Name Value Interpretation Reference Range Facil ity Vital Signs Date Time Vital Sign Value Performing Clinician Faci lity 07-19-2022 16:04-0400 Body height 157.5 cm Pulm R m Work Phone: [facility] 07-19-2022 16:04-0400 Body weight 88.2 kg Pulm R m Work Phone: [facility] Encounters Encounter Date Encounter Type Care Provider Facility Start: 07-20-2022 Telephone encounter Suraj Aguirre RN Pulmonary Medicine Procedures Date Procedure Procedure Detail Performing Clinician Start: 07-19-2022 Gases blood ph direc t diallo xcpt pulse oximitry Lorne Salinas MD Work Phone: Start: 07-19-2022 US VASCULAR (POC) FO R REYNALDO USE ONLY Lorne Salinas MD Work Phone: Start: 07-19-2022 Right heart cath o2 saturation & cardiac output Lorne Salinas MD Work Phone: Plan of Treatment Date Care Activity Detail Author Start: 07-27-2022 Influenza vaccination INFLUENZA (#1) [facility] Start: 11-26-2021 ADVANCE DIRECTIVE DISCUSSION ADVANCE DIRECTIVE DISCUSSION [facility] Start: 2018 BONE DENSITY BONE DENSITY [facility] Start: 2018 PNEUMOCOCCAL: 65+ (1 - PCV) PNEUMOCOCCAL: 65+ (1 - PCV) [facility] Start: 2003 Influenza vaccination LUNG CANCER SCREENING [facility] Start: 2003 SHINGRIX VACCINE (1 of 2) SHINGRIX VACCINE (1 of 2) [facility] Start: 1998 COLOGUARD (FIT-DNA) COLOGUARD (FIT-DNA) [facility] Start: 1998 Colonoscopy COLONOSCOPY [facility] Start: 1998 COLORECTAL CANCER SCREENING COLORECTAL CANCER SCREENING [facility] Start: [address] COLONOGRAPHY [facility] Start: 1998 DIABETES SCREEN DIABETES SCREEN [facility] Start: 1998 FECAL OCCULT BLOOD FECAL OCCULT BLOOD [facility] Start: 1998 LIPID SCREEN LIPID SCREEN [facility] Start: 1998 SIGMOIDOSCOPY SIGMOIDOSCOPY [facility] Start: 1993 Mammography MAMMOGRAM [facility] Start: 1983 Zoledronic acid therapy ALPHA-1 ANTITRYPSIN DEFICIENCY SCREENING [facility] Start: 1972 Urine microalbumin profile DTAP,TDAP,TD (1 - Tdap) [facility] Start: 1971 ANNUAL PCP TEAM CHRONIC DISEASE VISIT ANNUAL PCP TEAM CHRONIC DISEASE VISIT [facility] Start: 1971 HEPATITIS C SCREENING HEPATITIS C SCREENING [facility] Start: 1971 SPIROMETRY SPIROMETRY [facility] Start: 1965 Adult depression screening assessment DEPRESSION SCREENING [facility] Start: 1959 PNEUMOCOCCAL: 65+ (1 - PCV) PNEUMOCOCCAL: 65+ (1 - PCV) [facility] Start: [birth year]-1954 COVID-19 VACCINE (#1) COVID-19 VACCINE (#1) [facility] End: 06-18-2023 Pulmonary ventilation & perfusion imaging NM LUNG VENT / PERF VQ Radiology Routine Other secondary pulmonary hypertension (HCC) 1 Occurrences starting 05/19/2022 until 06/18/2023 [facility] Work Phone: Immunizations Immunization Date Immunization Notes Care Provider Feliberto doty 01-24-2021 COVID-19 vaccine, fu ll dose (MODERNA) 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 2021 Medicare AETNA MEDICARE A ETNA MEDICARE PPO [id number] 2021-Present [phone] [address] [place] [address] PPO [id number] Social History Date Type Detail Facility Tobacco smoking stat [facility] Tobacco smoking consumption unknown [facility] Start: 1955 Sex Assigned At Not on file [facility] Start: 05-21-2022 End: 07-19-2022 Exposure to SARS-CoV-2 (event) Not sure [facility] Start: 1955 Sex Assigned At Female [facility] Start: 05-27-2022 End: 06-06-2022 Exposure to SARS-CoV-2 (event) Unable to assess [facility] Start: 06-30-2022 Tobacco smoking stat [facility] Ex-smoker [facility] Work Phone: End: 06-30-2013 History of tobacco use Current smoker [facility] Work Phone: Start: 06-30-2022 Cigarettes smoked current (pack per day) - Reported 1.5 [facility] Start: 06-30-2022 Alcohol intake Ex-drinker (finding) [facility] End: 06-30-2013 History of tobacco use Cigarette Smoker [facility] Work Phone: Clinical Notes 05-18-2022 to 07-20-2022 Telephone Encounter - Suraj Aguirre - 07/20/2022 2:48 PM Bronwyn Salinas MD - 07/19/2022 4:01 PM EDTTelephone Encounter - Morales Betancourt MA - 07/11/2022 10:22 AM EDT Note Date & Type Note Facility 07-20-2022 Miscellaneous Notes RHC Information The patient wants to know why her PVR, 2.62 Wood Units, did not qualify her for PH medications? Per Dr. Salinas, the PVR needs to be > 3 Wood Units for the patient to qualify in the future. The patient will contact is if she has any further questions. Bhavik ZAMORANO, RN PH & HHT Information Systems Architect [facility] [place] [facility] documented in this encounter [facility] 07-19-2022 Note HNO ID: [id number] Author: Lorne Salinas MD Service: ? Author Type: Physician Type: Progress Notes Filed: 07/19/2022 4:33 PM Note Text: Patient Name: Payal Clark Patient Date of Procedure: July 19, 2022 Time of Procedure: 16:00 UNIVERSAL PROTOCOL / SAFETY CHECKLIST Procedure to be performed: Right Heart Catheterization Sign in Communication: completed Time Out: Team Confirms the Correct Patient, Correct Procedure, Correct Site and Site Marking, Correct Position (if applicable). Time: 16:05 Affirmation of Time Out: YES Sign Out Discussion: Completed Procedure start time: 16:11 Procedure end time: 16:40 Staff involved: Lorne Salinas MD Nurse(s): Ga Ruvalcaba RN and Kunal Paul. Procedure(s): Right Heart Catheterization. Right Heart Catheterization Indications: PH related to COPD/hypoxemia. 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 Access site: Right internal jugular vein Frankfort Evelia size: 7.5 F. Anesthesia: Lidocaine 1% Procedure Narrative: Consent was obtained. Time out taken. Performed at procedure room in 1. Under sterile condition, lidocaine 1 % (5 ml) was applied and under US guidance a 8.5 F introducer was inserted without difficulty. Wire was noted to be located in the SVC under fluoroscopy. A Frankfort-Evelia catheter was advanced to the right pulmonary artery without difficulties (RA, RV, PA pressures were measured). Wedge was obtained and confirmed to be appropriate by fluoroscopy (stable catheter) and blood gas analysis. Mixed venous blood was obtained for indirect Olivia determination. CO was determined by thermodilution and indirect Olivia methodology. Measured OLIVIA CO was performed if results are provided immediately after the RHC determinations section. For this procedure, patients were connected to a metabolic cart for 15 minutes and arterial blood obtained for ABG. Disposition: Patient was discharged in stable condition. RHC determinations Determinations Result Units Rhythm NSR Inspired fraction of oxygen 21.00 % Oxygen flow 0.00 L/min SpO2 92.00 % Systolic BP 168.00 mmHg Diastolic BP 81.00 mmHg Mean BP 110.00 mmHg Heart Rate 87.00 bpm Height 158.50 cm Weight 91.00 Kg Body surface area 1.92 m2 Body mass index 36.22 kg/m2 Right atrial pressure (mean) 12.00 mmHg Right atrial pressure (mean) peak v wave (end-expiration) 16.00 mmHg Right ventricular systolic pressure 47.00 mmHg Right ventricular diastolic pressure 12.00 mmHg Systolic pulmonary artery pressure 47.00 mmHg Mean pulmonary artery pressure 34.00 mmHg Diastolic pulmonary artery pressure 28.00 mmHg Pumonary artery pulse pressure 19.00 mmHg Pulmonary artery occlusion pressure (mean) 15.00 mmHg Pulmonary artery occlusion pressure (end-expiration) 17.00 mmHg Pulmonary artery occlusion pressure (end-expiration) peak v wave 33.00 Diastolic pulmonary gradient 15.00 mmHg Transpulmonary gradient 17.00 mmHg Pulmonary artery capacitance 3.93 mL/mmHg Cardiac output (thermodilution) 6.50 L/min Cardiac index (thermodilution) 3.38 L/min/m2 Cardiac output (indirect OLIVIA) 6.27 L/min Cardiac index (indirect OLIVIA) 3.26 L/min/m2 Systemic vascular resistance 1206.15 dynes/sec/cm5 Stroke volume 74.71 mL Stroke volume index 38.85 mL/m2 Right ventricular stroke work index 11.62 g*m/m2 Pulmonary vascular resistance 2.62 Wood Units Hemoglobin (mixed venous) 14.10 g/dL Arterial oxyhemoglobin 94.00 % Mixed venous oxyhemoglobin 74.00 % Lactic acid (arterial) 0.90 mmol/L Abbreviated version Right atrial pressure (mean) 12.00 mmHg Mean pulmonary artery pressure 34.00 mmHg Pulmonary artery occlusion pressure (end-expiration) 17.00 mmHg Cardiac index (thermodilution) 3.38 L/min/m2 Pulmonary vascular resistance 2.62 Wood Units Mixed venous oxyhemoglobin 74.00 % RA: PAP: PAWP: RV pullback: Estimated Blood Loss: 10 ml( blood discarded when measuring oxygenation) + 30 mL research. Specimens: Mixed venous and PAW blood gases. Complications: None. Introducer removed without complications. Pressure applied for 10 minutes. No Bleeding. Condition of Patient After Procedure: stable Radiation Exposure: Fluoro time 0.23 min:sec Cumulative area dose product 979.50 cGy cm2 Cumulative air kerma 2.30 mGy Summary: Postcapillary PH with preserved cardiac index at rest in supine position. Plan: F/U in the OP clinic. Low salt in the diet. Gentle diuresis. Weight loss. BP control. Authenticated by Lorne Salinas MD on July 19, 2022 at 4:01 PM. [facility] 07-19-2022 History of Presen t illness Narrative Images from the original note were not included. Patient Name: Payal Clark Patient Date of Procedure: July 19, 2022 Time of Procedure: 16:00 UNIVERSAL PROTOCOL / SAFETY CHECKLIST Procedure to be performed: Right Heart Catheterization Sign in Communication: completed Time Out: Team Confirms the Correct Patient, Correct Procedure, Correct Site and Site Marking, Correct Position (if applicable). Time: 16:05 Affirmation of Time Out: YES Sign Out Discussion: Completed Procedure start time: 16:11 Procedure end time: 16:40 Staff involved: Lorne Salinas MD Nurse(s): Ga Ruvalcaba RN and Kunal Paul. Procedure(s): Right Heart Catheterization. Right Heart Catheterization Indications: PH related to COPD/hypoxemia. 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 Access site: Right internal jugular vein Frankfort Evelia size: 7.5 F. Anesthesia: Lidocaine 1% Procedure Narrative: Consent was obtained. Time out taken. Performed at procedure room in G61. Under sterile condition, lidocaine 1 % (5 ml) was applied and under US guidance a 8.5 F introducer was inserted without difficulty. Wire was noted to be located in the SVC under fluoroscopy. A [place]fort-Evelia catheter was advanced to the right pulmonary artery without difficulties (RA, RV, PA pressures were measured). Wedge was obtained and confirmed to be appropriate by fluoroscopy (stable catheter) and blood gas analysis. Mixed venous blood was obtained for indirect Olivia determination. CO was determined by thermodilution and indirect Olivia methodology. Measured OLIVIA CO was performed if results are provided immediately after the RHC determinations section. For this procedure, patients were connected to a metabolic cart for 15 minutes and arterial blood obtained for ABG. Disposition: Patient was discharged in stable condition. RHC determinations Determinations Result Units Rhythm NSR Inspired fraction of oxygen 21.00 % Oxygen flow 0.00 L/min SpO2 92.00 % Systolic BP 168.00 mmHg Diastolic BP 81.00 mmHg Mean BP 110.00 mmHg Heart Rate 87.00 bpm Height 158.50 cm Weight 91.00 Kg Body surface area 1.92 m2 Body mass index 36.22 kg/m2 Right atrial pressure (mean) 12.00 mmHg Right atrial pressure (mean) peak v wave (end-expiration) 16.00 mmHg Right ventricular systolic pressure 47.00 mmHg Right ventricular diastolic pressure 12.00 mmHg Systolic pulmonary artery pressure 47.00 mmHg Mean pulmonary artery pressure 34.00 mmHg Diastolic pulmonary artery pressure 28.00 mmHg Pumonary artery pulse pressure 19.00 mmHg Pulmonary artery occlusion pressure (mean) 15.00 mmHg Pulmonary artery occlusion pressure (end-expiration) 17.00 mmHg Pulmonary artery occlusion pressure (end-expiration) peak v wave 33.00 Diastolic pulmonary gradient 15.00 mmHg Transpulmonary gradient 17.00 mmHg Pulmonary artery capacitance 3.93 mL/mmHg Cardiac output (thermodilution) 6.50 L/min Cardiac index (thermodilution) 3.38 L/min/m2 Cardiac output (indirect OLIVIA) 6.27 L/min Cardiac index (indirect OLIVIA) 3.26 L/min/m2 Systemic vascular resistance 1206.15 dynes/sec/cm5 Stroke volume 74.71 mL Stroke volume index 38.85 mL/m2 Right ventricular stroke work index 11.62 g*m/m2 Pulmonary vascular resistance 2.62 Wood Units Hemoglobin (mixed venous) 14.10 g/dL Arterial oxyhemoglobin 94.00 % Mixed venous oxyhemoglobin 74.00 % Lactic acid (arterial) 0.90 mmol/L Abbreviated version Right atrial pressure (mean) 12.00 mmHg Mean pulmonary artery pressure 34.00 mmHg Pulmonary artery occlusion pressure (end-expiration) 17.00 mmHg Cardiac index (thermodilution) 3.38 L/min/m2 Pulmonary vascular resistance 2.62 Wood Units Mixed venous oxyhemoglobin 74.00 % RA: PAP: PAWP: RV pullback: Estimated Blood Loss: 10 ml( blood discarded when measuring oxygenation) + 30 mL research. Specimens: Mixed venous and PAW blood gases. Complications: None. Introducer removed without complications. Pressure applied for 10 minutes. No Bleeding. Condition of Patient After Procedure: stable Radiation Exposure: Fluoro time 0.23 min:sec Cumulative area dose product 979.50 cGy cm2 Cumulative air kerma 2.30 mGy Summary: Postcapillary PH with preserved cardiac index at rest in supine position. Plan: F/U in the OP clinic. Low salt in the diet. Gentle diuresis. Weight loss. BP control. Authenticated by Lorne Salinas MD on July 19, 2022 at 4:01 PM. documented in this encounter [facility] 07-11-2022 Miscellaneous Notes Summary: Appointment Confirmation Called patient to confirm her RHC with Dr. Salinas on 07/19 at 4pm. No answer, left VM. Morales Betancourt Clinical Conference Services Coordinator [facility] [place] documented in this encounter [facility] 06-30-2022 Note HNO ID: [id number] Author: Lorne Salinas MD Service: ? Author Type: Physician Type: Progress Notes Filed: 06/30/2022 4:11 PM Note Text: VIRTUAL VISIT PROGRESS NOTE This is a virtual visit using [email or web address] video visit. It required patient-provider interaction for the medical decision making as documented below. Chief complaint: This patient is seen in consultation at the request of Mitchell Brian MD for opinion or advice on PH. History of present illness: As you recall, Payal Clark is a 66 yo woman with severe COPD, WINIFRED, GERD, Hiatal Hernia. SOB with exertion. Echo performed March 2022 showed preserved EF 55-60% with no diastolic dysfunction. PA systolic is estimated at 50. 6MW distance results 633 feet requiring 3L O2 with oxygen desaturation at night 86%. Lives in [place] (1.5 hours from the clinic). No chest pain. No LE. No lightheadness. Dyspnea NYHA III (climbing stairs and walking > 1 block). On Breo Ellipta and incruse. Trelegy. Singular. NAsal spray. Proair a few times a week. Known etiologies of Pulmonary Hypertension: NO RHC. No Hx of clots or CTDs. CURRENT OXYGEN USE: 3 L/min of O2 at night. On CPAP 5 cmH2O and 3 L/min. Uses every night for the entire night. Review of Systems: HEENT: Negative for frequent or significant headaches, No changes in hearing or vision, no nose bleeds or other nasal problems NECK: Negative for goiter, pain or significant neck swelling RESPIRATORY: Dyspnea with activities. CARDIOVASCULAR: Negative for chest pain, leg swelling or palpitations. GI: Negative for abdominal discomfort, blood in stools or black stools or change in bowel habits : No history of dysuria, frequency or incontinence MUSCULOSKELETAL: Negative for joint pain or swelling, back pain or muscle pain. SKIN: Negative for lesions, rash, and itching. HEMATOLOGY/LYMPHOLOGY: Negative for prolonged bleeding, bruising easily or swollen nodes. ENDOCRINE: Negative for cold or heat intolerance, polyuria or polydipsia. NEURO: No history of headaches, syncope, paralysis, seizures or tremors The remainder of the review of systems is negative. Current Outpatient Medications Medication Sig Dispense Refill - fluticasone-vilanterol (BREO ELLIPTA) 200-25 mcg/dose inhaler Inhale 1 Inhalation as instructed once daily. - montelukast (SINGULAIR) 10 mg tablet Take 1 tablet by mouth daily at bedtime. - umeclidinium (INCRUSE ELLIPTA) 62.5 mcg/actuation inhaler Inhale 1 Puff as instructed once daily. - loratadine (CLARITIN) 10 mg tablet Take 1 tablet by mouth once daily as needed (for allergy symptoms.). - aspirin, enteric coated (ECOTRIN LOW STRENGTH) 81 mg EC tablet Take 1 tablet by mouth once daily. - pantoprazole DR (PROTONIX) 40 mg tablet Take 1 tablet by mouth once daily. - albuterol sulfate (PROAIR DIGIHALER) 90 mcg/actuation aebs Inhale 2 Inhalation as instructed four times daily. No current facility-administered medications for this visit. ALLERGIES Allergen Reactions - Dust Mites Swelling - Feathers Swelling - Mold Swelling PAST MEDICAL HISTORY Diagnosis Date - Hiatal hernia - Mucopurulent chronic bronchitis (HCC) - WINIFRED (obstructive sleep apnea) No past surgical history on file. Social History Tobacco Use - Smoking status: Former Smoker Packs/day: 1.50 Years: 30.00 Pack years: 45.00 Quit date: 06/30/2013 Years since quittin.0 - Smokeless tobacco: Not on file Substance Use Topics - Alcohol use: Not Currently - Drug use: Not Currently Comment: No vaping. No FHx of PH. Physical Examination VV Laboratory exams: No results for input(s): WBC, HB, HCT in the last 6720 hours. No results for input(s): GLU, BUN, CREAT, NA, K, CHLOR, CO2, TPROT, ALB, CA, ALKPHOS, AST, ALT in the last 6720 hours. Invalid input(s): TBIL No results for input(s): TSH, ANAEIA in the last [address] chest without contrast Yes Date 03/30/2022 ? Echocardiogram Yes Date 03/30/2022 ? ? Right heart catheterization No Ordered ? CXR No ? PFTs Yes Date 03/20/2022 ? ? ? DLCO Yes Date 03/20/2022 ? VQ scan No Ordered ? Creatinine No ? BNP No ? Impression: The patient is a 66 yo woman exsmoker with WINIFRED, GERD (hiatal hernia), severe COPD who was found to have elevated RVSP on Echo. Normal RV function. Dyspnea NYHA 3. 1-COPD on triple inhaled therapy. Exsmoker. May need rehab. 2- PH: suggested by echo. Needs RHC. Likely group 3 from WINIFRED / COPD / hypoxemia 3-WINIFRED: on CPAP and oxygen at night. Plan: RHC. I spent a total of 50 minutes on the date of the service which included preparing to see the patient, [id number] patient care, completing clinical documentation, obtaining and/or reviewing separately obtained history and ordering medications, tests, or procedures I will report my final recommendations back to the requesting physician by way of shared medical record or letter via US mail. Lorne Salinas MD (more content not included)... [facility] 06-30-2022 History of Presen t illness Narrative Images from the original note were not included. VIRTUAL VISIT PROGRESS NOTE This is a virtual visit using [email or web address] video visit. It required patient-provider interaction for the medical decision making as documented below. Chief complaint: This patient is seen in consultation at the request of Mitchell Brian MD for opinion or advice on PH. History of present illness: As you recall, Payal Clark is a 66 yo woman with severe COPD, WINIFRED, GERD, Hiatal Hernia. SOB with exertion. Echo performed March 2022 showed preserved EF 55-60% with no diastolic dysfunction. PA systolic is estimated at 50. 6MW distance results 633 feet requiring 3L O2 with oxygen desaturation at night 86%. Lives in [place] (1.5 hours from the clinic). No chest pain. No LE. No lightheadness. Dyspnea NYHA III (climbing stairs and walking > 1 block). On Breo Ellipta and incruse. Trelegy. Singular. NAsal spray. Proair a few times a week. Known etiologies of Pulmonary Hypertension: NO RHC. No Hx of clots or CTDs. CURRENT OXYGEN USE: 3 L/min of O2 at night. On CPAP 5 cmH2O and 3 L/min. Uses every night for the entire night. Review of Systems: HEENT: Negative for frequent or significant headaches, No changes in hearing or vision, no nose bleeds or other nasal problems NECK: Negative for goiter, pain or significant neck swelling RESPIRATORY: Dyspnea with activities. CARDIOVASCULAR: Negative for chest pain, leg swelling or palpitations. GI: Negative for abdominal discomfort, blood in stools or black stools or change in bowel habits : No history of dysuria, frequency or incontinence MUSCULOSKELETAL: Negative for joint pain or swelling, back pain or muscle pain. SKIN: Negative for lesions, rash, and itching. HEMATOLOGY/LYMPHOLOGY: Negative for prolonged bleeding, bruising easily or swollen nodes. ENDOCRINE: Negative for cold or heat intolerance, polyuria or polydipsia. NEURO: No history of headaches, syncope, paralysis, seizures or tremors The remainder of the review of systems is negative. Current Outpatient Medications Medication Sig Dispense Refill fluticasone-vilanterol (BREO ELLIPTA) 200-25 mcg/dose inhaler Inhale 1 Inhalation as instructed once daily. montelukast (SINGULAIR) 10 mg tablet Take 1 tablet by mouth daily at bedtime. umeclidinium (INCRUSE ELLIPTA) 62.5 mcg/actuation inhaler Inhale 1 Puff as instructed once daily. loratadine (CLARITIN) 10 mg tablet Take 1 tablet by mouth once daily as needed (for allergy symptoms.). aspirin, enteric coated (ECOTRIN LOW STRENGTH) 81 mg EC tablet Take 1 tablet by mouth once daily. pantoprazole DR (PROTONIX) 40 mg tablet Take 1 tablet by mouth once daily. albuterol sulfate (PROAIR DIGIHALER) 90 mcg/actuation aebs Inhale 2 Inhalation as instructed four times daily. No current facility-administered medications for this visit. ALLERGIES Allergen Reactions Dust Mites Swelling Feathers Swelling Mold Swelling PAST MEDICAL HISTORY Diagnosis Date Hiatal hernia Mucopurulent chronic bronchitis (HCC) WINIFRED (obstructive sleep apnea) No past surgical history on file. Social History Tobacco Use Smoking status: Former Smoker Packs/day: 1.50 Years: 30.00 Pack years: 45.00 Quit date: 06/30/2013 Years since quittin.0 Smokeless tobacco: Not on file Substance Use Topics Alcohol use: Not Currently Drug use: Not Currently Comment: No vaping. No FHx of PH. Physical Examination VV Laboratory exams: No results for input(s): WBC, HB, HCT in the last 6720 hours. No results for input(s): GLU, BUN, CREAT, NA, K, CHLOR, CO2, TPROT, ALB, CA, ALKPHOS, AST, ALT in the last 6720 hours. Invalid input(s): TBIL No results for input(s): TSH, ANAEIA in the last [address] chest without contrast Yes Date 03/30/2022 Echocardiogram Yes Date 03/30/2022 Right heart catheterization No Ordered CXR No PFTs Yes Date 03/20/2022 DLCO Yes Date 03/20/2022 VQ scan No Ordered Creatinine No BNP No Impression: The patient is a 66 yo woman exsmoker with WINIFRED, GERD (hiatal hernia), severe COPD who was found to have elevated RVSP on Echo. Normal RV function. Dyspnea NYHA 3. 1-COPD on triple inhaled therapy. Exsmoker. May need rehab. 2- PH: suggested by echo. Needs RHC. Likely group 3 from WINIFRED / COPD / hypoxemia 3-WINIFRED: on CPAP and oxygen at night. Plan: RHC. I spent a total of 50 minutes on the date of the service which included preparing to see the patient, [id number] patient care, completing clinical documentation, obtaining and/or reviewing separately obtained history and ordering medications, tests, or procedures I will report my final recommendations back to the requesting physician by way of shared medical record or letter via US mail. Lorne Salinas MD June 30, 2022 documented in this encounter [facility] 06-27-2022 Note HNO ID: [id number] Author: Naa Croft APRN.WIND SITE MANAGER Service: ? Author Type: Nurse Practitioner Type: Progress Notes Filed: 06/27/2022 12:21 PM Note Text: Patient referred by Mitchell Brian MD We have received the following records: Brief HPI: PMH- COPD, WINIFRED, GERD, Hiatal Hernia, PLMS. SOB with exertion. Echo performed March 2022 showed preserved EF 55-60% with no diastolic dysfunction. PA systolic is estimated at 50. 6MW distance results 633 feet requiring 3L O2 with oxygen desaturation at 86%. CT chest with contrast No CT chest without contrast Yes Date 03/30/2022 Echocardiogram Yes Date 03/30/2022 Right heart catheterization No Ordered CXR No PFTs Yes Date 03/20/2022 DLCO Yes Date 03/20/2022 VQ scan No Ordered Creatinine No BNP No Weight 199 lbs I have reviewed the above data. In addition, we need to order VQ Scan and RHC. Naa Croft APRN.CNP [facility] 06-27-2022 History of Presen t illness Narrative Images from the original note were not included. Patient referred by Mitchell Brian MD We have received the following records: Brief HPI: PMH- COPD, WINIFRED, GERD, Hiatal Hernia, PLMS. SOB with exertion. Echo performed March 2022 showed preserved EF 55-60% with no diastolic dysfunction. PA systolic is estimated at 50. 6MW distance results 633 feet requiring 3L O2 with oxygen desaturation at 86%. CT chest with contrast No CT chest without contrast Yes Date 03/30/2022 Echocardiogram Yes Date 03/30/2022 Right heart catheterization No Ordered CXR No PFTs Yes Date 03/20/2022 DLCO Yes Date 03/20/2022 VQ scan No Ordered Creatinine No BNP No Weight 199 lbs I have reviewed the above data. In addition, we need to order VQ Scan and RHC. Naa Croft APRN.MOSHE documented in this encounter [facility] 06-05-2022 Miscellaneous Notes Summary: Care Coordination Called patient to schedule her RHC with Dr. Salinas on 07/19/2022 at 4pm. NPO 4 hours pre-procedure. Anticoagulation: None at this time Must have a winch driver for transportation post procedure. May take other medications as prescribed prior to procedure. Check in at desk G-11 at 3:30pm Morales Betancourt Clinical Conference Services Coordinator [facility] documented in this encounter [facility] 06-02-2022 Miscellaneous Notes Summary: Care Coordination Called patient to schedule her RHC with Dr. Salinas. No answer, left VM. Morales Betancourt Clinical Conference Services Coordinator [facility] documented in this encounter [facility] 05-18-[address] Mitchell Brian contacted Mic Webber MD for a RHC. Dr. Webber does not perform RHC's and has deferred to Dr. Salinas. I am requesting recent office notes from office: [phone] documented in this encounter [facility] Diagnosis Stage 3 severe COPD by GOLD classification (HCC) Abnormal echocardiogram Nonspecific (abnormal) findings on radiological and other examination of other intrathoracic organs [facility] Diagnosis Stage 3 severe COPD by GOLD classification (HCC)- Primary [facility]* Diagnosis Pulmonary hypertension (HCC)- Primary Other chronic pulmonary heart diseases [facility] (n[facility])* Diagnostic Procedure Only (Routine) - Pending Review Specialty Diagnoses / Procedures Referred By Contac t Referred To Contact MOLECULAR & FUNCTIONAL IMAGING Diagnoses Other secondary pulmonary hypertension (HCC) Procedures NM LUNG VENT / PERF VQ PULMONARY VENTILATION & PERFUSION IMAGING Rachel Seaman, BURNING SUPERVISOR.CHIEF OF PRODUCTION [address] [facility] [place] [address] Molecular & Functional Imaging [address] [place] [address] Referral ID Status Reason Start Date Expiration Date Visits Requested Visits Authorized [id number] Pending Review Auto-Generat ed Referral 05/19/2022 06/18/2023 1 1 [facility] Summary Purpose Family History No Family History Records Found Advance Directives No Advanced Directives Records Found Additional Source Comments Source Comments (unrecognize d section and content) In the event this informatio n is protected by the Federal Confidentiality of Alcohol and Drug Abuse Patient Records regulations: The Federal rules restrict any use of the information to criminally investigate or prosecute any alcohol or drug abuse patient.[facility] the event this information is protected by the Federal Confidentiality of Alcohol and Drug Abuse Patient Records regulations: The Federal rules restrict any use of the information to criminally investigate or prosecute any alcohol or drug abuse patient.[facility] the event this information is protected by the Federal Confidentiality of Alcohol and Drug Abuse Patient Records regulations: The Federal rules restrict any use of the information to criminally investigate or prosecute any alcohol or drug abuse patient.[facility] the event this information is protected by the Federal Confidentiality of Alcohol and Drug Abuse Patient Records regulations: The Federal rules restrict any use of the information to criminally investigate or prosecute any alcohol or drug abuse patient.[facility] the event this information is protected by the Federal Confidentiality of Alcohol and Drug Abuse Patient Records regulations: The Federal rules restrict any use of the information to criminally investigate or prosecute any alcohol or drug abuse patient.[facility] the event this information is protected by the Federal Confidentiality of Alcohol and Drug Abuse Patient Records regulations: The Federal rules restrict any use of the information to criminally investigate or prosecute any alcohol or drug abuse patient.[facility] the event this information is protected by the Federal Confidentiality of Alcohol and Drug Abuse Patient Records regulations: The Federal rules restrict any use of the information to criminally investigate or prosecute any alcohol or drug abuse patient.[facility] the event this information is protected by the Federal Confidentiality of Alcohol and Drug Abuse Patient Records regulations: The Federal rules restrict any use of the information to criminally investigate or prosecute any alcohol or drug abuse patient.[facility] the event this information is protected by the Federal Confidentiality of Alcohol and Drug Abuse Patient Records regulations: The Federal rules restrict any use of the information to criminally investigate or prosecute any alcohol or drug abuse patient.[facility] the event this information is protected by the Federal Confidentiality of Alcohol and Drug Abuse Patient Records regulations: The Federal rules restrict any use of the information to criminally investigate or prosecute any alcohol or drug abuse patient.[facility] the event this information is protected by the Federal Confidentiality of Alcohol and Drug Abuse Patient Records regulations: The Federal rules restrict any use of the information to criminally investigate or prosecute any alcohol or drug abuse patient.[facility] Reason for Visit (unrecogniz ed section and content) Reason Comments Care Coordination Reason Comments Abstract Reason Comments Appointment Confirmation Reason Comments Information Systems Architect - Other Care Teams (unrecognized sec tion and content) Director Property Relationship Specialty Start Date End Date Mitchell Brian V [address] [address] [employer]er Internal Medicine 06/06/22 Director Property Relationship Specialty Start Date End Date Mitchell Brian V [address] [place] [address] [employer] Internal Medicine 06/06/22 Director Property Relationship Specialty Start Date End Date Mitchell Brian V [address] [place] [address] [employer] Internal Medicine 06/06/22 Director Property Relationship Specialty Start Date End Date Mitchell Brian V [address] [place] [address] [employer] Internal Medicine 06/06/22 INFORMATION SOURCE (unrecogn ized section and content) FOR RECORDS PERTAINING TO PATIENTS WHO ARE OR HAVE BEEN ENROLLED IN A CHEMICAL DEPENDENCY/SUBSTANCEABUSE PROGRAM, SOME INFORMATION MAY BE OMITTED. This clinical summary was aggregated from multiple sources. Caution should be exercised in using it in the provision of clinical care. This summary normalizes information from multiple sources, and as a consequence, information in this document may materially change the coding, format and clinical context of patient data. In addition, data may be omitted in some cases. CLINICAL DECISIONS SHOULD BE BASED ON THE PRIMARY CLINICAL RECORDS. [employer] provides no warranty or guarantee of the accuracy or completeness of information in this document.
[2023-11-29 15:14] LABS: Absolute Neutrophil Count 6.6 X10^3/uL (2.0-7.7); Basophil# 0.07 X10^3/uL; Basophil% 0.7 % (0-1); Eosinophil# 0.42 X10^3/uL; Eosinophils% 4.3 % (0-5); Hematocrit 41.7 % (37-47); Hemoglobin 12.4 g/dL (12.0-15.0); Lymphocyte % 15.4 % (19-41); Mean Corp Hgb Conc 29.7 g/dL (32-36); Mean Corpuscular Hgb 27.5 pg (27.0-32.0); Mean Corpuscular Volume 92.5 fL (81-99); Monocyte# 1.12 X10^3/uL; Monocyte% 11.5 % (0-10); NRBC Flagged by Analyzer 0 % (0-5); Neutrophil # 6.61 X10^3/uL (2.7-7.7); Neutrophil % 67.9 % (47-70); Platelet Count 322 K/mm3 (150-450); RBC Distribution Width CV 13.8 % (11.6-14.6); Red Blood Count 4.51 M/mm3 (4.2-5.4); White Blood Count 9.7 K/mm3 (4.4-11.0)
[2023-11-29 15:29] LABS: Vitamin B12 353 pg/mL (211-911)
[2023-11-29 15:45] LABS: ALB/GLOB Ratio 0.8 RATIO (0.9-2.4); AST(SGOT) 14 U/L (15-37); Alanine Aminotransfer ALT/SGPT 15 U/L (13-56); Albumin, Serum 3.2 g/dL (3.2-5.0); Alkaline Phosphatase 60 U/L (45-117); Anion Gap 4 (5-15); BUN 14 mg/dL (7-18); BUN/Creat Ratio 19.7 RATIO (10-20); Calcium,Total 8.8 mg/dL (8.5-10.1); Chloride 99 mmol/L (98-107); Creatinine, Serum 0.71 mg/dL (0.55-1.02); EST Glomerular Filtration Rate 86 mL/min (>60); Est Glom Filt Rate - Afr Amer 104 mL/min (>60); Globulin 3.9 g/dL (2.2-4.2); Glucose 95 mg/dL (74-106); Potassium 4.4 mmol/L (3.5-5.1); Protein, Total 7.1 g/dL (6.4-8.2); Sodium Level 139 mmol/L (136-145); Thyroid Stim Hormone (TSH) 2.21 uIU/mL (0.358-3.74)
== END | disposition home or self-care (01) ==
LOC: MTLAB 11:30
PROVIDERS: PCP Family Medicine; Referring Provider Family Medicine; Visit Provider Family Medicine
DX: R53.83 Other fatigue (principal)
CPT/HCPCS: 36415; 80053; 82607; 84443; 85025

== ENCOUNTER → 2023-12-12 | Outpatient (CLI) | payer MEDICARE, SELFPAY ==
[2023-12-03 18:52] VITALS: BMI 39.6
--- NOTE | 2023-12-12 14:10 | RAD_ITS ---
STUDY: X-RAY CHEST REASON FOR EXAM: Female, 68 years old. SOB TECHNIQUE: PA and lateral views of the chest. COMPARISON: 07/08/2023 FINDINGS: There is hyperinflation of the lungs consistent with chronic obstructive lung disease (COPD). There is no demonstrated pleural abnormality. Normal size heart. Normal mediastinum and saba. Normal visualized pulmonary arteries. There is atherosclerotic calcification of the aortic arch with tortuosity. Normal visualized thoracic spine. Normal visualized ribs, clavicles, and shoulders. There is no demonstrated abnormality of the visualized soft tissue structures of the upper abdomen. RAD/Chest PA and Lateral IMPRESSION: COPD related findings with no evidence of focal infiltrate. Electronically Signed: Carlos Mayer DO at 15:15 EST ,
--- OUTSIDE RECORDS SUMMARY | 2023-12-12 14:30 | XMS RPT_ITS | CCD ---
Author Name Unknown Address [address] [facility] [address] [place] [address] Organization [facility] Care Team Providers Care District Operations Manager Name Role Phone Unavailable Primary Care Provider Unavailabl e Mitchell Millard Unavailable Mitchell Millard Unavailable Allergies Allergy Classification Reported Allergen(s) Allergy Type Date of Onset Reaction(s) Facility (5 sources) [facility] 06-30-2022 [facility] Work Phone: (5 sources) House dust mite Allergy to substance 06-30-2022 [facility] Work Phone: (5 sources) Mold Extract Drug Allergy 06-30-2022 [facility] Work Phone: Medications Completed/Discontinued Medications Medication [...] 157.5 cm Pulm R m Work Phone: [facility] 07-19-2022 16:04-0400 Body weight 88.2 kg Pulm R m Work Phone: [facility] Encounters Encounter Date Encounter Type Care Provider [...] Author Start: 07-27-2022 Influenza vaccination INFLUENZA (#1) [facility] Start: 11-26-2021 ADVANCE DIRECTIVE DISCUSSION ADVANCE DIRECTIVE DISCUSSION [facility] Start: 2018 BONE DENSITY BONE DENSITY [facility] Start: 2018 PNEUMOCOCCAL: 65+ (1 - PCV) PNEUMOCOCCAL: 65+ (1 - PCV) [facility] Start: 2003 Influenza vaccination LUNG CANCER SCREENING [facility] Start: 2003 SHINGRIX VACCINE (1 of 2) SHINGRIX VACCINE (1 of 2) [facility] Start: 1998 COLOGUARD (FIT-DNA) COLOGUARD (FIT-DNA) [facility] Start: 1998 Colonoscopy COLONOSCOPY [facility] Start: 1998 COLORECTAL CANCER SCREENING COLORECTAL CANCER SCREENING [facility] Start: [address] COLONOGRAPHY [facility] Start: 1998 DIABETES SCREEN DIABETES SCREEN [facility] Start: 1998 FECAL OCCULT BLOOD FECAL OCCULT BLOOD [facility] Start: 1998 LIPID SCREEN LIPID SCREEN [facility] Start: 1998 SIGMOIDOSCOPY SIGMOIDOSCOPY [facility] Start: 1993 Mammography MAMMOGRAM [facility] Start: 1983 Zoledronic acid therapy ALPHA-1 ANTITRYPSIN DEFICIENCY SCREENING [facility] Start: 1972 Urine microalbumin profile DTAP,TDAP,TD (1 - Tdap) [facility] Start: 1971 ANNUAL PCP TEAM CHRONIC DISEASE VISIT ANNUAL PCP TEAM CHRONIC DISEASE VISIT [facility] Start: 1971 HEPATITIS C SCREENING HEPATITIS C SCREENING [facility] Start: 1971 SPIROMETRY SPIROMETRY [facility] Start: 1965 Adult depression screening assessment DEPRESSION SCREENING [facility] Start: 1959 PNEUMOCOCCAL: 65+ (1 - PCV) PNEUMOCOCCAL: 65+ (1 - PCV) [facility] Start: 02-09-1956 COVID-19 VACCINE (#1) COVID-19 VACCINE (#1) [facility] End: 06-18-2023 Pulmonary ventilation & perfusion imaging NM LUNG VENT / PERF VQ Radiology Routine Other secondary pulmonary hypertension (HCC) 1 Occurrences starting 05/19/2022 until 06/18/[address] [facility] Work Phone: Immunizations Immunization Date Immunization Notes Care Provider Feliberto doty 01-24-2021 COVID-19 vaccine, fu ll dose (MODERNA) Naa Croft FIRE FIGHTER [employer]CUE.MENTAL HEALTH CONSULTANT Work Phone: [facility] 12-27-2020 COVID-19 vaccine, fu ll dose (MODERNA) Naa Croft FIRE FIGHTER [employer] AND [employer]CUE.MENTAL HEALTH CONSULTANT Work Phone: [facility] Payers Date Payer Category Payer Medicare AETNA MEDICARE A ETNA MEDICARE PPO [id number] 2021-Present [phone] [address] [place] [address] PPO [id number] 2021 Medicare AETNA MEDICARE A ETNA MEDICARE PPO [id number] 2021-Present [phone] [address] [place] [address] PPO [id number] Social History Date Type Detail Facility Tobacco smoking stat [facility] Tobacco smoking consumption unknown [facility] Start: 1955 Sex Assigned At Not on file [facility] Start: 05-21-2022 End: 07-19-2022 Exposure to SARS-CoV-2 (event) Not sure [facility] Start: 1955 Sex Assigned At Female C [facility] Start: 05-27-2022 End: 06-06-2022 Exposure to SARS-CoV-2 (event) Unable to assess [facility] Start: 06-30-2022 Tobacco smoking stat [facility] Ex-smoker [facility] Work Phone: End: 06-30-2013 History of tobacco use Current smoker [facility] Work Phone: Start: 06-30-2022 Cigarettes smoked current (pack per day) - Reported 1.5 [facility] Start: 06-30-2022 Alcohol intake Ex-drinker (finding) [facility] End: 06-30-2013 History of tobacco use Cigarette Smoker [facility] Work Phone: Clinical Notes 05-18-2022 to 07-20-2022 [...] questions. Bhavik ZAMORANO, RN PH & HHT Medical Massage Therapist Respiratory Lynndyl [facility] documented in this encounter [facility] 07-19-2022 Note HNO ID: [id number] Author: Lorne Salinas MD Service: ? Author [...] meds. Access site: Right internal jugular vein Udall Evelia size: 7.5 F. Anesthesia: Lidocaine 1% Procedure Narrative: Consent was obtained. Time out taken. Performed at procedure room in 1. Under sterile condition, lidocaine 1 % (5 ml) was applied and under US guidance a 8.5 F introducer was inserted without difficulty. Wire was noted to be located in the SVC under fluoroscopy. A Udall-Evelia catheter was advanced to the right pulmonary [...] on July 19, 2022 at 4:01 PM. [facility] 07-19-2022 History of Presen t illness [...] meds. Access site: Right internal jugular vein Udall Evelia size: 7.5 F. Anesthesia: Lidocaine 1% Procedure Narrative: Consent was obtained. Time out taken. Performed at procedure room in G61. Under sterile condition, lidocaine 1 % (5 ml) was applied and under US guidance a 8.5 F introducer was inserted without difficulty. Wire was noted to be located in the SVC under fluoroscopy. A Udall-Evelia catheter was advanced to the right pulmonary [...] diuresis. Weight loss. BP control. Authenticated by Lrone Salinas MD on July 19, 2022 at 4:01 PM. documented in this encounter [facility] 07-11-2022 Miscellaneous Notes Summary: Appointment Confirmation Called patient to confirm her RHC with Dr. Salinas on 07/19 at 4pm. No answer, left VM. Morales Betancourt Clinical Manager Event [facility] Respiratory Lynndyl documented in this encounter [facility] 06-30-2022 Note HNO ID: [id number] Author: Lorne Salinas MD Service: ? Author Type: Physician Type: Progress Notes Filed: 06/30/2022 4:11 PM Note Text: VIRTUAL VISIT PROGRESS NOTE This is a virtual visit using [employer] video visit. It required patient-provider interaction for [...] oxygen desaturation at night 86%. [place] in [place] (1.5 hours from the clinic). No chest [...] which included preparing to see the patient, [id number] patient care, completing clinical documentation, obtaining and/or reviewing separately obtained history and ordering medications, tests, or procedures I will report my final recommendations back to the requesting physician by way of shared medical record or letter via [place] mail. Lorne Salinas MD (more content not included)... [facility] 06-30-2022 History of Presen t illness Narrative Images from the original note were not included. VIRTUAL VISIT PROGRESS NOTE This is a virtual visit using [employer] video visit. It required patient-provider interaction for [...] oxygen desaturation at night 86%. [place] in [place] (1.5 hours from the clinic). No chest [...] Date Hiatal hernia Mucopurulent chronic bronchitis (HCC) IWNIFRED (obstructive sleep apnea) No past surgical history [...] which included preparing to see the patient, [id number] patient care, completing clinical documentation, obtaining and/or reviewing separately obtained history and ordering medications, tests, or procedures I will report my final recommendations back to the requesting physician by way of shared medical record or letter via [place] mail. Lorne Salinas MD June 30, 2022 documented in this encounter [facility] 06-27-2022 Note HNO ID: [id number] Author: Naa Croft APRN.MENTAL HEALTH CONSULTANT Service: ? Author Type: Nurse Practitioner Type: Progress Notes Filed: 06/27/2022 12:21 PM Note Text: Patient referred by Mitchell Brina MD We have received the following records: [...] VQ Scan and RHC. Naa Croft APRN.CNP [facility] 06-27-2022 History of Presen t illness [...] order VQ Scan and RHC. Naa Croft APRN.MSOHE documented in this encounter [facility] 06-05-2022 Miscellaneous Notes Summary: Care Coordination Called patient to schedule her RHC with Dr. Salinas on 07/19/2022 at 4pm. NPO 4 hours pre-procedure. Anticoagulation: None at this time Must have a line haul driver for transportation post procedure. May take other medications as prescribed prior to procedure. Check in at desk G-11 at 3:30pm Morales Betancourt Clinical Manager Event [facility] Lynndyl documented in this encounter [facility] 06-02-2022 Miscellaneous Notes Summary: Care Coordination Called patient to schedule her RHC with Dr. Salinas. No answer, left VM. Morales Betancourt Clinical Manager Event [facility] documented in this encounter [facility] 05-18-[address] Mitchell Brian contacted Mic Webber MD for a RHC. Dr. Webber does not perform RHC's and has deferred to Dr. Salinas. I am requesting recent office notes from office: [phone] documented in this encounter [facility] documented in this encounter [facility] Diagnosis Stage 3 severe COPD by GOLD classification (HCC) Abnormal echocardiogram Nonspecific (abnormal) findings on radiological and other examination of other intrathoracic organs documented [facility] this encounter [facility] Diagnosis Stage 3 severe COPD by GOLD classification (HCC)- Primary documented in this encounter [facility]* Diagnosis Pulmonary hypertension (HCC)- Primary Other chronic pulmonary heart diseases documented in this encounter [facility] Diagnostic Procedure Only (Routine) - Pending Review Specialty Diagnoses / Procedures Referred By Contac t Referred To Contact MOLECULAR & FUNCTIONAL IMAGING Diagnoses Other secondary pulmonary hypertension (HCC) Procedures NM LUNG VENT / PERF VQ PULMONARY VENTILATION & PERFUSION IMAGING Rachel Seaman, FIRE FIGHTER CRASH FIRE AND RESCUE.BANKING ATTORNEY [address] [facility] [address] [place] [address] Molecular & Functional Imaging [address] [place] [address] Referral ID Status Reason Start Date Expiration Date Visits Requested Visits Authorized [id number] Pending Review Auto-Generat ed Referral 05/19/2022 06/18/2023 1 1 [facility] Summary Purpose Family History No Family History [...] or prosecute any alcohol or drug abuse patient.[facility] HospitalIn the event this information is protected by the Federal Confidentiality of Alcohol and Drug Abuse Patient Records regulations: The Federal rules restrict any use of the information to criminally investigate or prosecute any alcohol or drug abuse patient.[facility] the event this information is protected by the Federal Confidentiality of Alcohol and Drug Abuse Patient Records regulations: The Federal rules restrict any use of the information to criminally investigate or prosecute any alcohol or drug abuse patient.[facility] Hospital[facility] the event this information is protected by the Federal Confidentiality of Alcohol and Drug Abuse Patient Records regulations: The Federal rules restrict any use of the information to criminally investigate or prosecute any alcohol or drug abuse patient.[facility] HospitalIn the event this information is protected by the Federal Confidentiality of Alcohol and Drug Abuse Patient Records regulations: The Federal rules restrict any use of the information to criminally investigate or prosecute any alcohol or drug abuse patient.[facility] HospitalIn the event this information is protected by the Federal Confidentiality of Alcohol and Drug Abuse Patient Records regulations: The Federal rules restrict any use of the information to criminally investigate or prosecute any alcohol or drug abuse patient.[facility] HospitalIn the event this information is protected by the Federal Confidentiality of Alcohol and Drug Abuse Patient Records regulations: The Federal rules restrict any use of the information to criminally investigate or prosecute any alcohol or drug abuse patient.[facility] HospitalIn the event this information is protected by the Federal Confidentiality of Alcohol and Drug Abuse Patient Records regulations: The Federal rules restrict any use of the information to criminally investigate or prosecute any alcohol or drug abuse patient.[facility] HospitalIn the event this information is protected by the Federal Confidentiality of Alcohol and Drug Abuse Patient Records regulations: The Federal rules restrict any use of the information to criminally investigate or prosecute any alcohol or drug abuse patient.[facility] Hospital[facility] the event this information is protected by the Federal Confidentiality of Alcohol and Drug Abuse Patient Records regulations: The Federal rules restrict any use of the information to criminally investigate or prosecute any alcohol or drug abuse patient.[facility] HospitalIn the event this information is protected by the Federal Confidentiality of Alcohol and Drug Abuse Patient Records regulations: The Federal rules restrict any use of the information to criminally investigate or prosecute any alcohol or drug abuse patient.[facility] Reason for Visit (unrecogniz ed section and content) Reason Comments Care Coordination Reason Comments Abstract Reason Comments Appointment Confirmation Reason Comments Medical Massage Therapist - Other Care Teams (unrecognized sec tion and content) District Operations Manager Relationship Specialty Start Date End Date Mitchell Brian V [address] [place] [address] [facility] 06/06/22 District Operations Manager Relationship Specialty Start Date End Date Mitchell Brian V [address] [place] [address] [facility] 06/06/22 District Operations Manager Relationship Specialty Start Date End Date Mitchell Brian V [address] [place] [address] [facility] 06/06/22 District Operations Manager Relationship Specialty Start Date End Date Mitchell Brian V [address] [address] [facility] 06/06/22 INFORMATION SOURCE (unrecogn ized [...] BE BASED ON THE PRIMARY CLINICAL RECORDS. [employer] provides no warranty or guarantee of the accuracy or completeness of information in this document.
== END | disposition home or self-care (01) ==
PROVIDERS: PCP Family Medicine; Referring Provider Internal Medicine Pulmonary Disease; Visit Provider Internal Medicine Pulmonary Disease
DX: R06.02 Shortness of breath (principal)
CPT/HCPCS: 71046

== ENCOUNTER 2023-12-26 13:00 | Outpatient (RCR) | payer MEDICARE, SELFPAY | END 2023-12-26 23:59 | LOC: PR 13:00 | PROVIDERS: PCP Family Medicine; Referring Provider Internal Medicine Pulmonary Disease; Visit Provider Internal Medicine Pulmonary Disease | DX: J44.9 Chronic obstructive pulmonary disease, unspecified (principal); I27.20 Pulmonary hypertension, unspecified | CPT/HCPCS: 97150; 94626 ==

== ENCOUNTER 2024-01-21 13:37 | Emergency (ER) | payer MEDICARE, SELFPAY ==
[2024-01-14 10:08] VITALS: BMI 40.8
[2024-01-21 13:38] VITALS: BP 163/106; PULSE 141; RESP 18; TEMP 36.6; O2SAT 93
--- NOTE | 2024-01-21 14:13 | RAD_ITS ---
STUDY: X-RAY CHEST REASON FOR EXAM: Female, 68 years old. Shortness of breath. TECHNIQUE: Single frontal view of the chest. COMPARISON: 12/12/2023 FINDINGS: Mild hyperinflation with scarring at both bases, unchanged. There is no demonstrated pleural abnormality. Borderline cardiomegaly unchanged. Normal mediastinum and saba. Stable prominent central pulmonary arteries. Aortic tortuosity with calcification unchanged. Normal visualized thoracic spine. Healed left lateral rib fractures unchanged. No abnormality of the visualized soft tissue structures of the upper abdomen. RAD/Chest 1 View (Portable) IMPRESSION: Stable chest with no acute or emergent finding. Electronically Signed: Etienne Wagner MD at 14:27 EST ,
--- NOTE | 2024-01-21 14:14 | EKG12_ITS ---
Test Reason : SOB Blood Pressure : / mmHG Vent. Rate : 139 BPM Atrial Rate : 000 BPM P-R Int : 000 ms QRS Dur : 080 ms QT Int : 300 ms P-R-T Axes : 000 060 018 degrees QTc Int : 456 ms Atrial fibrillation with rapid ventricular response Nonspecific ST abnormality Abnormal ECG Confirmed by KIRA NORRIS, ROB ([id number]), video news editor CARTER PEREIRA ([id number]) on 01/28/2024 9:58:06 AM Referred By: Confirmed By:COURTNEY MALONE MD
--- NOTE | 2024-01-21 14:26 | EX.ED.DYSGE1 ---
HPI History of Present Illness Chief Complaint: Shortness of Breath Detail of Chief Complaint: Tachycardia Informant: patient Narrative Narrative: Patient presents from pulmonary rehab secondary to tachycardia. She has a history of COPD and currently wears 3 L of oxygen at all times. She has been in pulmonary rehab since the first of the year. She states when she is exercising at rehab they will have her on 5 L. When she went in today for her therapy they noted her heart rate was elevated. She thought it was because she had just walked to the restroom and back however after starting on the bike her heart rate remained significantly elevated and she was sent to the ER. She feels that her breathing is at baseline. She has some slight chest tightness. [facility] Medical History Arthritis Cellulitis and abscess of face Cellulitis of left forearm Depression Hemorrhoids Knee pain Lung disease Migraines Smoker SOB (shortness of breath) Home Medications calcium carbonate 500 mg calcium (1,250 mg) tablet 500 mg PO DAILY calcium 09/07/18 [History Last Taken 07/08/23 13:00] montelukast 10 mg tablet 10 mg PO QHS allergies 09/07/18 [History Last Taken Unknown] albuterol sulfate 90 mcg/actuation aerosol inhaler 2 puff inhalation Q4H PRN PRN Shortness Of Breath 10/20/18 [History Last Taken Unknown] aspirin 81 mg chewable tablet 81 mg PO DAILY antiplatelet 10/20/18 [History Last Taken 07/07/23 21:30] escitalopram oxalate 5 mg tablet 10 mg PO QHS anxiety 10/20/18 [History Last Taken 07/07/23 21:30] pantoprazole 40 mg tablet,delayed release 40 mg PO DAILY GERD 08/10/21 [History Last Taken Unknown] cetirizine 10 mg tablet (24Hour Allergy) 10 mg PO QHS allergies 07/08/23 [History Last Taken 07/07/23 21:30] fluticasone fur. 200 mcg-umeclid 62.5 mcg-vilant 25 mcg inhalat.powder (Trelegy Ellipta) 1 inh inhalation DAILY SOB 07/08/23 [History Last Taken 07/08/23] fluticasone propionate 50 mcg/actuation nasal spray,suspension 2 spray intranasal QHS nasal dryness 07/08/23 [History Last Taken Unknown] rimegepant 75 mg disintegrating tablet (Nurtec ODT) 75 mg PO DAILY PRN migraine 07/08/23 [History Last Taken Unknown] apixaban 5 mg tablet (Eliquis) 5 mg PO BID #74 tabs 01/21/24 [Rx Last Taken Unknown] diltiazem HCl 180 mg capsule,extended release 24 hr (Cardizem CD) 180 mg PO DAILY #30 caps 01/21/24 [Rx Last Taken Unknown] Allergy/AdvReac Type Severity Reaction Status Date / Time house dust Allergy Unknown Verified 01/21/24 13:38 mold Allergy Unknown Verified 01/21/24 13:38 Family History Other Cancer Heart disease Surgical History History of appendectomy Hx of removal of ovary Social History Smoking Status: Former smoker alcohol intake: never ROS ROS ED Constitutional Constitutional ED: Denies chills or fever(s) Eyes Eyes: Denies discharge from eye(s) ENT ENT ED: Denies discharge from eye(s), rhinorrhea or sore throat Cardiovascular Cardiovascular: Reports chest pain; Denies palpitations Respiratory/Chest Respiratory/Chest: Reports dyspnea; Denies cough Gastrointestinal Gastrointestinal: Denies abdominal pain, nausea or vomiting Genitourinary Genitourinary ED: Denies dysuria Musculoskeletal Musculoskeletal: Denies back pain or extremity pain Integumentary Denies Abrasions or rash Neurologic Neurologic: Denies headache(s) or weakness Psychiatric Psychiatric: Denies anxiety or depression Allergic/Immunologic Allergic/Immunologic ED: Denies lip swelling or urticaria EXAM Physical Exam Const Vital Signs: 01/21/24 13:38 01/21/24 14:01 01/21/24 14:01 Temperature 97.9 F Temperature Source Temporal Pulse Rate 141 H Respiratory Rate 18 Respiratory Effort Normal Non-Labored Short of Breath Respiratory Depth Shallow Respiratory Pattern Tachypnea Blood Pressure 163/106 H Blood Pressure Mean 125 Pulse Ox 93 Oxygen Delivery Method Nasal Cannula Nasal Cannula Oxygen Flow Rate (L/min) 5 5 01/21/24 15:30 01/21/24 16:00 01/21/24 16:48 Temperature Temperature Source Pulse Rate 78 73 72 Respiratory Rate 17 13 12 Respiratory Effort Respiratory Depth Respiratory Pattern Blood Pressure 148/71 H Blood Pressure Mean 92 Pulse Ox 97 99 98 Oxygen Delivery Method Room Air Oxygen Flow Rate (L/min) Positive well nourished and well developed General Appearance ED: well developed HEENT Reports moist mucous membranes Eyes EOMs intact bilaterally Neck no lymphadenopathy Chest Wall inspection of chest normal and palpation of chest normal Resp normal respiratory effort Resp Narrative: Diminished breath sounds bilateral bases. Cardio Rate: tachycardic Rhythm: abnormal rhythm irregularly irregular GI non-tender Palpation: soft Extremity normal to inspection Neuro oriented x3 and no sensory deficits noted Motor Exam: strength 5/5 throughout Psych mental status grossly normal Skin no rashes or lesions noted MDM MDM MDM Narrative Medical decision making narrative: Patient placed on satellite project site monitor. IV line initiated. EKG obtained to evaluate for cardiac arrhythmia/ischemia. Labwork obtained to evaluate for leukocytosis, anemia, and electrolyte derangement. Chest x-ray obtained to evaluate for acute lung pathology, cardiac size, or mediastinal abnormality. Patient is noted to be in A-fib RVR on the monitor and during my interview and exam heart rate ranged from 97-1 51. Patient be given 10 mg of IV Cardizem for rate control. History & Record Review Discussion w/independent historian: Patient Lab Data Attestation: I reviewed the patient's lab results. Labs: Laboratory Results - last 24 hr 01/21/24 15:00 WBC 10.2 RBC 4.50 Hgb 12.5 Hct 40.0 MCV 88.9 MCH 27.8 MCHC 31.3 L RDW Std Deviation 49.0 H RDW Coeff of Beena 15.0 H Plt Count 287 MPV 9.8 Immature Gran % (Auto) 0.600 Neut % (Auto) 71.7 H Lymph % (Auto) 15.3 L [place] % (Auto) 9.3 Eos % (Auto) 2.5 Baso % (Auto) 0.6 Absolute Neuts (auto) 7.3 Absolute Lymphs (auto) 1.55 Nucleated RBC % 0 Sodium 140 Potassium 4.1 Chloride 104 Carbon Dioxide 34.0 H Anion Gap 2 L BUN 14 Creatinine 0.58 Estim Creat Clear Calc 73.11 Est GFR (MDRD) Af Amer 132 Est GFR (MDRD) Non-Af 109 BUN/Creatinine Ratio 24.1 H Glucose 104 Calcium 9.3 Troponin I High Sens 10 TSH 1.53 Radiography Chest X-Ray - ED: 1 View, Read by ED Physician, Chronic Changes and No Infiltrates Diagnostic Testing: Clinical Impression(s) from Imaging Studies Chest X-Ray 01/21/24 14:13 IMPRESSION: Stable chest with no acute or emergent finding. Electronically Signed: Etienne Wagner MD at 14:27 EST , EKG Initial EKG: Attestation: I personally reviewed and interpreted this EKG as follows: Interpretation: Atrial Fibrillation (A-fib RVR with a ventricular rate of 139. Mild ST depression in the anterior precordial leads.) Follow-up EKG: Attestation: I personally reviewed and interpreted this EKG as follows: Interpretation: Sinus Rhythm (Sinus rhythm at [address] depression is resolved.) Treatment and Re-Evaluation :: CBC was normal white count 10.2 with a hemoglobin of 12.5. 71% neutrophils. Chemistry studies unremarkable. Troponin is normal at 10 and TSH is normal at 1.53. Initial EKG is A-fib RVR. Before the patient could be given Cardizem she converted to a sinus rhythm with rate in the 60s and 70s. Repeat EKG is sinus at 73 bpm. I spoke with Dr. Barlow, on-call for cardiology. Given the patient is stable at this time he does feel that she can be worked up as an outpatient. Her heart rate is currently 78 and her blood pressure 148/71. He asked that we start Cardizem CD 180 as well as Eliquis. Patient be given first doses here and prescription sent to the pharmacy for her. She will be referred to Dr. Barlow for follow-up. Discharge Plan Triage Chief Complaint: Shortness of Breath Other Complaint: Palpitations ED Provider: Dolores Martin Dx/Rx/DC Orders Clinical Impression: Atrial fibrillation with RVR Instructions: ED AFIB Prescriptions: New diltiazem HCl [Cardizem CD] 180 mg capsule,extended release 24hr 180 mg PO DAILY Qty: 30 0RF Eliquis 5 mg tablet 5 mg PO BID Qty: 74 0RF Rx Instructions: 10 mg twice a day for the first week. Then 5 mg twice a day. No Action escitalopram oxalate 5 mg tablet 10 mg PO QHS aspirin 81 mg tablet,chewable 81 mg PO DAILY calcium carbonate 500 MG tablet 500 mg PO DAILY montelukast 10 MG tablet 10 mg PO QHS albuterol sulfate 90 mcg/actuation HFA aerosol inhaler 2 puff Inhalation Q4H PRN PRN (Reason: Shortness Of Breath) pantoprazole 40 mg tablet,delayed release (DR/EC) 40 mg PO DAILY Patient Comments: TAKE ONE TABLET TWICE DAILY BEFORE MORNING AND EVENING MEALS Nurtec ODT 75 mg tablet,disintegrating 75 mg PO DAILY PRN (Reason: migraine) Patient Comments: TAKE 1 (ONE) TABLET BY MOUTH DAILY IF NEEDED FOR MIGRAINE cetirizine [24Hour Allergy] 10 mg tablet 10 mg PO QHS Trelegy Ellipta 200-62.5-25 mcg blister with device 1 inh inhalation DAILY fluticasone propionate 50 mcg/actuation spray,suspension 2 spray INTRANASAL QHS Primary Care Provider: Christy Perea Referrals: Christy Perea MD [Primary Care Provider] - 1 Week Belinda Barlow MD [Med Staff - Active Staff] - 1-2 Weeks Disposition Disposition: Home, Self Care
[2024-01-21 14:56] VITALS: BMI 41.0
[2024-01-21] MEDS: 0.9% Normal Saline (1000mL) 1,000 ML 150 ML IV (15:06)
[2024-01-21 15:11] LABS: Absolute Lymphocyte Count 1.55 X10^3/uL (0.83-4.51); Absolute Neutrophil Count 7.3 X10^3/uL (2.0-7.7); Basophil# 0.06 X10^3/uL; Basophil% 0.6 % (0-1); Eosinophil# 0.25 X10^3/uL; Eosinophils% 2.5 % (0-5); Hemoglobin 12.5 g/dL (12.0-15.0); Lymphocyte # 1.55 X10^3/ul (0.83-4.51); Lymphocyte % 15.3 % (19-41); Mean Corp Hgb Conc 31.3 g/dL (32-36); Mean Corpuscular Hgb 27.8 pg (27.0-32.0); Mean Corpuscular Volume 88.9 fL (81-99); Mean Platelet Vol. 9.8 fl (6.2-12.0); Monocyte# 0.94 X10^3/uL; Monocyte% 9.3 % (0-10); NRBC Flagged by Analyzer 0 % (0-5); Neutrophil # 7.29 X10^3/uL (2.7-7.7); Neutrophil % 71.7 % (47-70); Platelet Count 287 K/mm3 (150-450); White Blood Count 10.2 K/mm3 (4.4-11.0)
--- NOTE | 2024-01-21 15:21 | EKG12_ITS ---
Test Reason : REPEAT Blood Pressure : / mmHG Vent. Rate : 073 BPM Atrial Rate : 073 BPM P-R Int : 154 ms QRS Dur : 078 ms QT Int : 402 ms P-R-T Axes : 078 048 053 degrees QTc Int : 442 ms Normal sinus rhythm Normal ECG Confirmed by KIRA NORRIS, ROB ([id number]), fan mail editor CARTER PEREIRA ([id number]) on 01/28/2024 9:57:52 AM Referred By: ED Confirmed By:COURTNEY MALONE MD
[2024-01-21 15:30] VITALS: PULSE 78; RESP 17; O2SAT 97
[2024-01-21 15:41] LABS: Anion Gap 2 (5-15); BUN 14 mg/dL (7-18); BUN/Creat Ratio 24.1 RATIO (10-20); Calcium,Total 9.3 mg/dL (8.5-10.1); Chloride 104 mmol/L (98-107); Creatinine, Serum 0.58 mg/dL (0.55-1.02); EST Glomerular Filtration Rate 109 mL/min (>60); Est Glom Filt Rate - Afr Amer 132 mL/min (>60); Estimated Creatinine Clearance 73.11 ml/min; Glucose 104 mg/dL (74-106); Potassium 4.1 mmol/L (3.5-5.1); Sodium Level 140 mmol/L (136-145); Thyroid Stim Hormone (TSH) 1.53 uIU/mL (0.358-3.74); Troponin-I HS 10 pg/mL (3.0-54.0)
[2024-01-21 16:00] VITALS: PULSE 73; RESP 13; O2SAT 99
[2024-01-21 16:48] VITALS: BP 148/71; PULSE 72; RESP 12; O2SAT 98
[2024-01-21] MEDS: APIXABAN 5 MG TABLET 10 MG PO (17:02)
[2024-01-21] MEDS: dilTIAZem CD 180 MG Capsule PO (17:14)
[2024-01-21 17:17] VITALS: BP 148/71; PULSE 72; RESP 12; TEMP 36.6; O2SAT 98
== END 2024-01-21 17:18 | disposition home or self-care (01) ==
PROVIDERS: Emergency Provider Emergency Medicine; PCP Family Medicine; Visit Provider Emergency Medicine
DX: I48.91 Unspecified atrial fibrillation (principal); J44.9 Chronic obstructive pulmonary disease, unspecified; Z79.82 Long term (current) use of aspirin; Z99.81 Dependence on supplemental oxygen; Z79.01 Long term (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 anticoagulants; Z79.899 Other long term (current) drug therapy; Z87.891 Personal history of nicotine dependence
CPT/HCPCS: 71045; 80048; 84443; 84484; 85025; 93005; 96360; 96361; 99285; J7030; A4216

== ENCOUNTER 2024-01-23 13:00 | Outpatient (RCR) | payer MEDICARE, SELFPAY ==
[2023-12-18 08:44] VITALS: BMI 39.6
--- NOTE | 2024-01-14 09:45 | PCM.PR.TP ---
Exercise - Initial Assessment Visit Session Number:: 19 Physician Prescribed Exercise Target RPE 12-16:: 13 Current RPD:: 3 Maximum Exercise HR:: 108 Resting Blood Pressure: 128/70 Maximum Exercise Blood Pressure: 168/78 Minimum SpO2 with exercise: 87 EKG Type: NSR to ST with rare ectopy Nutrition/Wt Mgmt - Initial Visit Session Number:: 19 Weight Management Admit Height:: 5 ft 2 in Admit Weight:: 223 lb 8 oz Admit BMI:: 40.8 Nutrition/Wt Mgmt - 30-Day Visit Date of Eval: 01/14/24 Session Number:: 19 Weight Management Height: 5 ft 2 in Weight:: 223 lb 8 oz BMI: 40.8 Nutrition/Wt Mgmt - 60-Day Visit Date of Eval: 01/14/24 Session Number:: 19 Weight Management Height: 5 ft 2 in Weight:: 223 lb 8 oz BMI: 40.8 Weight Goals Progress:: Progressing Nutrition/Wt Mgmt - 90-Day Visit Session Number:: 19 Weight Management Height: 5 ft 2 in Weight:: 223 lb 8 oz BMI: 40.8 Weight Goals Progress:: Progressing Nutrition/Wt Mgmt - Final Visit Session Number:: 19 Weight Management Height: 5 ft 2 in Weight:: 223 lb 8 oz BMI: 40.8 Psychosocial - Initial Assess Visit Session Number:: 19 Problems/Goals History of Emotional Disorders: None Psychosocial - 30-Day Visit Date of Eval: 01/14/24 Session Number:: 19 Problems/Goals History of Emotional Disorders: None Psychosocial - 60-Day Visit Date of Eval: 01/14/24 Session Number:: 19 Problems/Goals History of Emotional Disorders: None Psychosocial - 90-Day Visit Session Number:: 19 Problems/Goals History of Emotional Disorders: None Psychosocial - Final Assess Visit Session Number:: 19 Problems/Goals History of Emotional Disorders: None Oxygen & Oxygen Titration Init Visit Session Number:: 19 Initial Assessment SpO2:: 87 Oxygen & Oxygen Titration 30D Visit Date of Eval: 01/14/24 Session Number:: 19 Reassessment SpO2:: 87 Oxygen & Oxygen Titration 60D Visit Date of Eval: 01/14/24 Session Number:: 19 Reassessment Reassessment- 60 Days: Demonstrate knowledge of O2 Rx at rest & w/exercise, Using O2 as Rx'd and Has home O2 as Rx'd SpO2:: 87 Oxygen & Oxygen Titration 90D Visit Date of Eval: 01/14/24 Session Number:: 19 Reassessment SpO2:: 87 Oxygen & Oxygen Titration GAEL Visit Date of Eval: 01/14/24 Session Number:: 19 Reassessment SpO2:: 87 Core Components - Initial Visit Session Number:: 19 Hypertension Hypertension Diagnosis:: Hypertension ICD-10 I10 BP: 128/70 [place] [employer] Hypertension Guidelines Blood Pressure: 168/78 Outcomes/Goals: Able to verbalize/achieve optimal blood pressure <130/80 and Incorporates diet changes & exercise for blood pressure control by DC Core Components - 30 DAYS Visit Date of Eval: 01/14/24 Session Number:: 19 Hypertension Hypertension Diagnosis:: Hypertension ICD-10 I10 Resting Blood Pressure:: 128/70 [place] [employer] Hypertension Guidelines Peak Exercise Blood Pressure:: 168/78 Outcomes/Goals: Able to verbalize/achieve optimal blood pressure <130/80 and Incorporates diet changes & exercise for blood pressure control by DC Interventions/plan: Instruct on optimal blood pressure, hypertension & medications, Instruct on effects of sodium, alcohol, stress, exercise &hypertension and Other additional plan/interventions 30 day Reassessments:: Progressing Exacerbation Mgmt & Airway Clearance Reassessment: Demonstrates knowledge of O2 Rx at rest, Demonstrates knowledge of O2 Rx with exercise, Using O2 as prescribed and Has home O2 as prescribed Bronchial Hygiene Plan: Yes: Pt demonstrates correctly for effective cough, Yes: Pt demo correct for CPT, Yes: Pt demo correct for device, Yes: Pt demo correct for NS nasal spray, Yes: Pt demo correct for sputum management, Yes: Pt demo correct for improved hydration, Yes: Pt demo correct for hand hygiene, Yes: Pt demo correct for evalute sputum, Yes: Pt demo correct for verbalize when to call MD and Yes: Pt demo correct for cleaning of respiratory equipment Medication Medication reassessment: Yes: Pt demonstrates correct technique timing for MDI, Yes: Pt demonstrates correct technique timing for DPI, Yes: Pt demonstrates correct technique timing for NEB and Yes: Pt demonstrates correct technique timing for spacer Core Components - 60 DAYS Visit Date of Eval: 01/14/24 Session Number:: 19 Hypertension Hypertension Diagnosis:: Hypertension ICD-10 I10 Resting Blood Pressure:: 128/70 [place] [employer] Hypertension Guidelines Peak Exercise Blood Pressure:: 168/78 Outcomes/Goals: Able to verbalize/achieve optimal blood pressure <130/80 and Incorporates diet changes & exercise for blood pressure control by DC Interventions/plan: Instruct on optimal blood pressure, hypertension & medications, Instruct on effects of sodium, alcohol, stress, exercise &hypertension and Other additional plan/interventions 60 day Reassessments:: Progressing Exacerbation Mgmt & Airway Clearance Reassessment: Demonstrates knowledge of O2 Rx at rest, Demonstrates knowledge of O2 Rx with exercise, Using O2 as prescribed and Has home O2 as prescribed Bronchial Hygiene Plan: Yes: Pt demonstrates correctly for effective cough, Yes: Pt demo correct for CPT, Yes: Pt demo correct for device, Yes: Pt demo correct for NS nasal spray, Yes: Pt demo correct for sputum management, Yes: Pt demo correct for improved hydration, Yes: Pt demo correct for hand hygiene, Yes: Pt demo correct for evalute sputum, Yes: Pt demo correct for verbalize when to call MD and Yes: Pt demo correct for cleaning of respiratory equipment Medication Medication list reviewed:: Yes Taking medications 100% of the time:: Met Medication reassessment: Yes: Pt demonstrates correct technique timing for MDI, Yes: Pt demonstrates correct technique timing for DPI, Yes: Pt demonstrates correct technique timing for NEB and Yes: Pt demonstrates correct technique timing for spacer 60-day Reassessments:: Met Core Components - 90 DAYS Visit Session Number:: 19 Hypertension Hypertension Diagnosis:: Hypertension ICD-10 I10 Resting Blood Pressure:: 128/70 [place] [employer] Hypertension Guidelines Peak Exercise Blood Pressure:: 168/78 Outcomes/Goals: Able to verbalize/achieve optimal blood pressure <130/80 and Incorporates diet changes & exercise for blood pressure control by DC Interventions/plan: Instruct on optimal blood pressure, hypertension & medications, Instruct on effects of sodium, alcohol, stress, exercise &hypertension and Other additional plan/interventions 90 day Reassessments:: Progressing Exacerbation Mgmt & Airway Clearance Bronchial Hygiene Plan: Yes: Pt demonstrates correctly for effective cough, Yes: Pt demo correct for CPT, Yes: Pt demo correct for device, Yes: Pt demo correct for NS nasal spray, Yes: Pt demo correct for sputum management, Yes: Pt demo correct for improved hydration, Yes: Pt demo correct for hand hygiene, Yes: Pt demo correct for evalute sputum, Yes: Pt demo correct for verbalize when to call MD and Yes: Pt demo correct for cleaning of respiratory equipment Medication Medication reassessment: Yes: Pt demonstrates correct technique timing for MDI, Yes: Pt demonstrates correct technique timing for DPI, Yes: Pt demonstrates correct technique timing for NEB and Yes: Pt demonstrates correct technique timing for spacer Core Components - Final Visit Session Number:: 19 Hypertension Hypertension Diagnosis:: Hypertension ICD-10 I10 Resting Blood Pressure:: 128/70 [place] [employer] Hypertension Guidelines Peak Exercise Blood Pressure:: 168/78 Outcomes/Goals: Able to verbalize/achieve optimal blood pressure <130/80 and Incorporates diet changes & exercise for blood pressure control by DC Exacerbation Mgmt & Airway Clearance Bronchial Hygiene Plan: Yes: Pt demonstrates correctly for effective cough, Yes: Pt demo correct for CPT, Yes: Pt demo correct for device, Yes: Pt demo correct for NS nasal spray, Yes: Pt demo correct for sputum management, Yes: Pt demo correct for improved hydration, Yes: Pt demo correct for hand hygiene, Yes: Pt demo correct for evalute sputum, Yes: Pt demo correct for verbalize when to call MD and Yes: Pt demo correct for cleaning of respiratory equipment Medication Medication reassessment: Yes: Pt demonstrates correct technique timing for MDI, Yes: Pt demonstrates correct technique timing for DPI, Yes: Pt demonstrates correct technique timing for NEB and Yes: Pt demonstrates correct technique timing for spacer Patient Health Questionnaire PHQ-9 Screening 60-Day Re-eval Assessment: 1. Little interest or pleasure in doing things: Several days 2. Feeling down, depressed, or hopeless: Several days 3. Trouble falling or staying asleep, or sleeping too much: Several days 4. Feeling tired or having little energy: Several days 5. Poor appetite or overeating: Not at all 6. Feeling bad about yourself -- or that you are a failure or have let yourself or your family down: Not at all 7. Trouble concentrating on things, such as reading the newspaper or watching television: Not at all 8. Moving or speaking so slowly that other people could have noticed. Or the opposite - being so fidgety or restless that you have been moving around a lot more than usual: Not at all 9. Thoughts that you would be better off , or of hurting yourself in some way: Not at all How difficult have these problems made it for you to do your work, take care of things at home, or get along with other people?: Not difficult at all Total Score: 4 Knowledge Questionaire (BCKQ) Information Information: [place] COPD Knowledge Questionnaire (BCKQ) This questionnaire is designed to find out what you know about your lung problem. It should be completed without help form anyone else. This usually takes between 10 and 20 minutes. Your answers will help us to find out what information you need to help you to understand and manage your lung condition. Chai the [place] which you think is the correct answer. Self-Efficacy 6-Item Scale 60-Day Re-eval Assessment: We would like to know how confident you are in doing certain activities. Please select your confidence level for: Fatigue Select Number: 4 Physical Discomfort or Pain Select Number: 9 Emotional Distress Select Number: 9 Other Symptoms or Health Problems Select Number: 8 Different Tasks and Activities Select Number: 8 Medication Select Number: 8 Total Score:: 7 Nutrition Survey Nutrition Survey Instructions Scoring Instructions
[2024-01-14 10:08] VITALS: BP 128/70; BP 168/78; O2SAT 87; BMI 40.8
== END 2024-01-24 23:59 ==
LOC: PR 13:00
PROVIDERS: PCP Family Medicine; Referring Provider Internal Medicine Pulmonary Disease; Visit Provider Internal Medicine Pulmonary Disease
DX: J44.9 Chronic obstructive pulmonary disease, unspecified (principal); I27.20 Pulmonary hypertension, unspecified
CPT/HCPCS: 97150; 94626

== ENCOUNTER 2024-02-22 13:00 | Outpatient (RCR) | payer MEDICARE, SELFPAY ==
[2024-01-14 10:08] VITALS: BMI 40.8
[2024-01-25 00:24] VITALS: BP 128/70; BP 168/78; BMI 40.8
--- NOTE | 2024-02-13 08:24 | PCM.PR.TP ---
General Information2 General Information Oxygen: Pt is on med hold due to new onset of afib Exercise - Initial Assessment Visit Session Number:: 26 (pt is on med hold due to new onset of afib) Nutrition/Wt Mgmt - Initial Visit Session Number:: 26 Nutrition/Wt Mgmt - 30-Day Visit Date of Eval: 02/13/24 Session Number:: 26 Nutrition/Wt Mgmt - 60-Day Visit Session Number:: 26 Nutrition/Wt Mgmt - 90-Day Visit Date of Eval: 02/13/24 (pt is on med hold due to new onset of afib) Session Number:: 26 Nutrition/Wt Mgmt - Final Visit Session Number:: 26 Psychosocial - Initial Assess Visit Session Number:: 26 Psychosocial - 30-Day Visit Date of Eval: 02/13/24 Session Number:: 26 Psychosocial - 60-Day Visit Session Number:: 26 Psychosocial - 90-Day Visit Date of Eval: 02/13/24 (pt is on med hold due to new onset of afib) Session Number:: 26 (pt is on med hold due to new onset of afib) Psychosocial - Final Assess Visit Session Number:: 26 (pt is on med hold due to new onset of afib) Oxygen & Oxygen Titration Init Visit Session Number:: 26 Oxygen & Oxygen Titration 30D Visit Date of Eval: 02/13/24 Session Number:: 26 (pt is on med hold due to new onset of afib) Oxygen & Oxygen Titration 60D Visit Date of Eval: 02/13/24 Session Number:: 26 (pt is on med hold due to new onset of afib) Oxygen & Oxygen Titration 90D Visit Date of Eval: 02/13/24 Session Number:: 26 (pt is on med hold due to new onset of afib) Oxygen & Oxygen Titration GAEL Visit Date of Eval: 02/13/24 Session Number:: 26 (pt is on med hold due to new onset of afib) Core Components - Initial Visit Session Number:: 26 (pt is on med hold due to new onset of afib) Core Components - 30 DAYS Visit Date of Eval: 02/13/24 Session Number:: 26 (pt is on med hold due to new onset of afib) Core Components - 60 DAYS Visit Session Number:: 26 (pt is on med hold due to new onset of afib) Core Components - 90 DAYS Visit Date of Eval: 02/13/24 (pt is on med hold due to new onset of afib) Session Number:: 26 (pt is on med hold due to new onset of afib) Core Components - Final Visit Session Number:: 26 (pt is on med hold due to new onset of afib) Knowledge Questionaire (BCKQ) Information Information: [place] COPD Knowledge Questionnaire (BCKQ) This questionnaire is designed to find out what you know about your lung problem. It should be completed without help form anyone else. This usually takes between 10 and 20 minutes. Your answers will help us to find out what information you need to help you to understand and manage your lung condition. [employer]ai the [place] which you think is the correct answer. Nutrition Survey Nutrition Survey Instructions Scoring Instructions
== END 2024-02-24 23:59 ==
LOC: PR 13:00
PROVIDERS: PCP Family Medicine; Referring Provider Internal Medicine Pulmonary Disease; Visit Provider Internal Medicine Pulmonary Disease
DX: J44.9 Chronic obstructive pulmonary disease, unspecified (principal); I27.20 Pulmonary hypertension, unspecified
CPT/HCPCS: 97150; 94626

== ENCOUNTER → 2024-03-20 | Outpatient (CLI) | payer MEDICARE, SELFPAY ==
[2024-01-14 10:08] VITALS: BMI 40.8
--- NOTE | 2024-03-20 07:14 | ECHOCS_ITS ---
Reason For Study: AZAR Procedure This was a 2D Doppler, Color Flow transthoracic echocardiogram. The study was technically difficult. Contrast injection was performed. Exam performed in department. Left Ventricle Normal size and thickness. The left ventricular ejection fraction is 65 %. Normal diastololic function. Right Ventricle Normal right ventricle. Atria The left and right atria are normal. Mitral Valve Trivial mitral valve insufficiency. Tricuspid Valve Trivial tricuspid valve insufficiency. Right ventricular systolic pressure estimated to be 63 mmHg. Aortic Valve Trisinus/trileaflet aortic valve. Pulmonic Valve The pulmonic valve is not well visualized. Great Vessels Normal sized aortic root. Pericardium/Pleural No pericardial effusion. Medication 22 gauge I.V. with prn adaptor inserted into left arm. Diluted definity 2ml given slow IV push to enhance endocardial definition. MMode/2D Measurements & Calculations LVIDd: 4.3 cm IVSd: 0.78 cm Ao root diam: 3.0 cm LVIDs: 2.9 cm LVPWd: 0.82 cm LA dimension: 3.7 cm RVDd: 4.1 cm FS: 31.3 % LAV(MOD-bp): 58.1 ml LVAd ap4: 35.0 cm2 SV(MOD-sp4): 77.2 ml LAV(MOD-bp) Indexed: 29.1 ml/m2 LVLd ap4: 8.5 cm LAV(MOD-sp2): 56.2 ml EDV(MOD-sp4): 119.3 ml LAV(MOD-sp4): 53.0 ml EDV(sp4-el): 122.7 ml LVAs ap4: 18.4 cm2 LVLs ap4: 6.8 cm ESV(MOD-sp4): 42.1 ml ESV(sp4-el): 42.7 ml EF(MOD-sp4): 64.7 % EF(sp4-el): 65.2 % SV(sp4-el): 80.1 ml LA A4 area: 20.1 cm2 RA A4 area: 15.8 cm2 TAPSE: 1.9 cm Time Measurements MV dec time: 0.21 sec Doppler Measurements & Calculations MV E max sudheer: 96.6 cm/sec Lat Peak E' Sudheer: 12.4 cm/sec Med Peak E' Sudheer: 11.8 cm/sec MV A max sudheer: 93.9 cm/sec E/E' lat: 7.8 E/E' med: 8.2 MV E/A: 1.0 MV V2 max: 122.4 cm/sec MV P1/2t max sudheer: 122.4 cm/sec Ao V2 max: 160.7 cm/sec MV max P.0 mmHg MV P1/2t: 84.6 msec Ao max P.4 mmHg MV V2 mean: 66.3 cm/sec MV mean P.1 mmHg MV dec slope: 423.9 cm/sec2 MV V2 VTI: 42.0 cm MVA(P1/2t): 2.6 cm2 LV V1 max: 128.7 cm/sec PA V2 max: 104.2 cm/sec TR max sudheer: 371.6 cm/sec LV V1 max P.6 mmHg TR max P.2 mmHg ECHO/Echo Complete W/ Contrast Interpretation Summary The study was technically difficult. The left ventricular ejection fraction is 65 %. Right ventricular systolic pressure estimated to be 63 mmHg. Ordering Physician: Chandni Courtney Referring Physician: Christy Perea M.D. Performed By: Robert Greenberg RCS
--- NOTE | 2024-03-20 11:24 | STRESSREP_ITS ---
Stress Test Report Date: 03/20/2023 Procedure: Pharmacologic stress nuclear imaging study Indications: Atrial fibrillation Consent: Per the patient Procedure: The patient underwent pharmacologic (Regadenoson 0.4mg ) evaluation with a peak heart rate of 89 beats per minute (59%predicted maximal heart rate) and a peak blood pressure of 158/80 mmHg. The baseline ECG demonstrated sinus rhythm with baseline artifact. The peak pharmacologic ECG demonstrated no ischemic change. There were no cardiac dysrhythmias pretest, during pharmacologic infusion, or recovery. There was no complaint of chest discomfort during pharmacologic infusion or recovery. The patient was injected with 11 point millicuries of technetium 99m Cardiolite and subsequently rest SPECT Cardiolite nuclear imaging was obtained in the horizontal long, vertical long, and short axis views. The patient underwent pharmacologic (Regadenoson) evaluation. The patient was injected with 33.5 millicuries of technetium 99m Cardiolite and subsequently stress SPECT Cardiolite nuclear imaging was obtained in the horizontal long, vertical long, and short axis views. A gated Cardiolite study at peak stress was obtained. The examination was stopped secondary to completion of protocol. Rest and stress SPECT Cardiolite nuclear imaging status post realignment, normalization, and attenuation correction demonstrate mildly reduced perfusion of the apex and septum post pharmacological stress. There is end systolic thickening and brightening. The gated Cardiolite study demonstrates myocardial thickening and inward wall motion. The reported LVEF is 70%. Impression: 1. Pharmacologic (Regadenoson) evaluation 2. Peak pharmacologic ECG with no ischemic changes. 3. There were no cardiac dysrhythmias pretest, during pharmacologic infusion, or recovery. 5. Mildly reduced perfusion of the apex and septum post-rest suggestive of mild ischemia.. 6. The gated Cardiolite study reports an LVEF of 70%. This note was generated with [employer]ang[employer] software. It may contain incorrect words, spelling, and punctuation that were not noted in checking the note before signing.
== END | disposition home or self-care (01) ==
LOC: CVS 07:13
PROVIDERS: PCP Family Medicine; Referring Provider Internal Medicine Cardiovascular Disease; Visit Provider Internal Medicine Cardiovascular Disease
DX: R06.09 Other forms of dyspnea (principal); J44.9 Chronic obstructive pulmonary disease, unspecified; I48.91 Unspecified atrial fibrillation; I10 Essential (primary) hypertension; G47.30 Sleep apnea, unspecified
CPT/HCPCS: 78452; 93017; 93306; A9500; Q9957; A4216; C8929; J2785

== ENCOUNTER 2024-03-21 13:00 | Outpatient (RCR) | payer MEDICARE, SELFPAY ==
[2024-01-14 10:08] VITALS: BMI 40.8
[2024-02-25 00:20] VITALS: BP 128/70; BP 168/78; BMI 40.8
== END 2024-03-25 23:59 ==
LOC: PR 13:00
PROVIDERS: PCP Family Medicine; Referring Provider Internal Medicine Pulmonary Disease; Visit Provider Internal Medicine Pulmonary Disease
DX: J44.9 Chronic obstructive pulmonary disease, unspecified (principal); I27.20 Pulmonary hypertension, unspecified
CPT/HCPCS: 94640; 97150; 94626

== ENCOUNTER → 2024-03-28 | Outpatient (CLI) | payer MEDICARE, SELFPAY ==
[2024-01-14 10:08] VITALS: BMI 40.8
[2024-03-28 13:29] LABS: Absolute Lymphocyte Count 1.63 X10^3/uL (0.83-4.51); Absolute Neutrophil Count 5.7 X10^3/uL (2.0-7.7); Basophil# 0.03 X10^3/uL; Basophil% 0.4 % (0-1); Eosinophil# 0.29 X10^3/uL; Eosinophils% 3.4 % (0-5); Hematocrit 40.7 % (37-47); Lymphocyte # 1.63 X10^3/ul (0.83-4.51); Mean Corp Hgb Conc 29.5 g/dL (32-36); Mean Corpuscular Hgb 27.6 pg (27.0-32.0); Mean Corpuscular Volume 93.8 fL (81-99); Mean Platelet Vol. 9.6 fl (6.2-12.0); Monocyte# 0.89 X10^3/uL; Monocyte% 10.4 % (0-10); NRBC Flagged by Analyzer 0 % (0-5); Neutrophil # 5.69 X10^3/uL (2.7-7.7); Neutrophil % 66.4 % (47-70); Platelet Count 289 K/mm3 (150-450); RBC Distribution Width CV 14.9 % (11.6-14.6); RBC Distribution Width SD 51.7 fl (35.1-43.9); Red Blood Count 4.34 M/mm3 (4.2-5.4); White Blood Count 8.6 K/mm3 (4.4-11.0)
[2024-03-28 13:46] LABS: International Normalized Ratio 1.2; Prothrombin Time (Protime)PT. 14.9 SECONDS (11.7-14.9)
[2024-03-28 13:47] LABS: Partial Thromboplast Time 29.1 Seconds (24.1-36.2)
[2024-03-28 13:55] LABS: Anion Gap -1 (5-15); BUN 19 mg/dL (7-18); BUN/Creat Ratio 25.1 RATIO (10-20); Calcium,Total 9.3 mg/dL (8.5-10.1); Chloride 98 mmol/L (98-107); Creatinine, Serum 0.76 mg/dL (0.55-1.02); EST Glomerular Filtration Rate 80 mL/min (>60); Est Glom Filt Rate - Afr Amer 97 mL/min (>60); Glucose 95 mg/dL (74-106); Potassium 4.4 mmol/L (3.5-5.1); Sodium Level 135 mmol/L (136-145)
== END | disposition home or self-care (01) ==
LOC: LAB 13:01
PROVIDERS: PCP Family Medicine; Referring Provider Physician Assistant Medical; Visit Provider Physician Assistant Medical
DX: R94.39 Abnormal result of other cardiovascular function study (principal)
CPT/HCPCS: 36415; 80048; 85025; 85610; 85730

== ENCOUNTER 2024-04-09 09:27 | Day surgery (SDC) | payer MEDICARE, SELFPAY ==
[2024-01-14 10:08] VITALS: BMI 40.8
--- NOTE | 2024-03-31 08:21 | PCM.HP.CAR ---
HPI - General General Date of Admission: 04/09/24 HPI Narrative This pleasant lady has past medical history significant for severe COPD and hypertension. She has been attending pulmonary rehabilitation where and she was noted to have atrial fibrillation with rapid ventricular response. Subsequently she was sent to the emergency room. In the emergency room, she was started on diltiazem and apixaban and sent home. She proceeded with an echocardiogram on 03/20/2020 for that showed ejection unction of 65% and normal left and right atrium size. She underwent a stress test on the same date that was suggestive of a mild ischemia. Patient denies any palpitations. She denies any lightheadedness or dizziness. No syncope or presyncope. No chest pain. She has chronic shortness of breath on account of her COPD and is on 24-hour supplemental oxygen therapy. Also history of sleep apnea. Sleeps with a CPAP at night. No history of CVA or TIA. Denies any bleeding disorders. Patient is an ex-smoker. 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 Chandni Courtney MD) Acute respiratory failure with hypoxia Acute sinusitis Anxiety Arthritis Asthma Atrial fibrillation with rapid ventricular response Back pain Bronchitis Bursitis Cellulitis and abscess of face Cellulitis of left forearm Chronic airway obstruction COPD exacerbation Depression Fatigue GERD (gastroesophageal reflux disease) Hemorrhoids Knee pain Lung disease Migraines Morbid obesity Motion sickness Olecranon bursitis of right elbow Osteopenia Sebaceous cyst of axilla Septic olecranon bursitis of right elbow Sleep apnea Smoker SOB (shortness of breath) Tachycardia URI (upper respiratory infection) Urinary tract infection Surgical History H/O left cataract extraction H/O right heart catheterization (~07/19/22) History of appendectomy (~1994) Hx of removal of ovary (~1994) Family History Mother CAD (coronary artery disease) Diabetes C. difficile colitisFather CAD (coronary artery disease)Sister CAD (coronary artery disease)Brother , 62 Colon cancerSon , 45 Drug overdoseOther Atrial fibrillation CHF (congestive heart failure) Cancer Heart disease Social History (Updated 02/19/24 @ 10:32 by Becca Hart) Smoking Status: Former smoker alcohol intake: current alcohol intake frequency: holidays/special occasions only substance use type: does not use caffeine: Yes Type: coffee Number of servings: 2 ROS Const Const: Positive for fatigue and daytime sleepiness (usually); Negative for weakness, headache(s), frequent falls, difficulty sleeping or excessive sweating Eyes Eyes: Negative for loss of peripheral vision, transient loss of vision, blurry vision, double vision or tunnel vision ENT ENT: Negative for headache(s), dizziness, Nosebleed/epistaxis or balance problems Cardio Chest Pain: No Palpitations: Yes feels like its: fast and pounding Edema: None Muscle aches with walking: None Resp Respiratory: Positive for SOB with activity, SOB at rest and SOB orthopnea\SOB lying down; Negative for Cough or paroxysmal nocturnal dyspnea Additional Details: 3L continuous since June 2023 GI GI: Positive for heartburn and other (passing a lot of gas); Negative nausea, vomiting or black,tarry stools : Negative for hematuria Musc Musc: Positive for muscle weakness and joint pain; Negative for muscle aches/ myalgia or balance problems Skin Skin: Negative non-healing lesions, rash or unusual bruising Neuro Neuro: Negative for dizziness, lightheadedness, near syncope, syncope, frequent falls, headache(s), weakness, blurry vision, double vision or lack of coordination Nahum Hematologic/Lymphatic: Negative for easy bleeding or easy bruising Endo Endo: Positive for fatigue; Negative for excessive sweating or increased thirst/drinking Psych Psych: Negative for anxiety or depression Allergy Allergy/Immunology: Negative for hives and Negative for rash Cardiology Exam Const Appearance: comfortable and no acute distress Nutritional Appearance: obese Neck Neck: no JVD Carotids: Negative bruit Chest Auscultation: Bilateral: Diminished Lung Sounds Cardio Rhythm: irregularly irregular Heart sounds: S1 normal and S2 normal GI GI: obese Neuro General: patient alert, patient awake and patient oriented x3 Extremities Lower Extremity Edema: None: Bilateral Supplemental Info Supplemental Information ECHOCARDIOGRAM 03/30/22: Interpretation Summary The estimated ejection fraction is 55-60 %. No evidence for diastolic dysfunction. Trivial mitral valve insufficiency. RIGHT HEART CATHETERIZATION 07/19/22: Summary: Postcapillary PH with preserved cardiac index at rest in supine position. Plan: F/U in the OP clinic. Low salt in the diet. Gentle diuresis. Weight loss. BP control. CT CHEST WITHOUT CONTRAST 03/30/22: FINDINGS: CHEST Stable small benign-appearing bilateral axillary lymph nodes. Hyperinflation. Emphysematous changes. Since prior study, there is evidence of increased interstitial markings with possible nodular density in the right lung apex. Follow-up in 3 months is recommended. Stable scarring in the lingular segment of the left upper lobe. The previously seen 5.6 mm nodule in the lateral aspect of the anterior right lower lobe is not seen at this time. There is no demonstrated pleural abnormality. There are calcifications of the coronary arteries. Normal mediastinum. Normal hilar regions. Normal unenhanced pulmonary arteries. There is atherosclerotic calcification of the aortic arch. There are multi-level degenerative changes of the thoracic spine. There is no demonstrated abnormality of the visualized upper abdomen. IMPRESSION: Progressive increased interstitial markings in the right upper lobe. Follow-up in [address] LUNG 09/06/23: FINDINGS: LUNGS, PLEURA AND LARGE AIRWAYS: No consolidation or edema. No pulmonary nodule. No pleural effusion. No pneumothorax. Centrilobular emphysematous changes of the lungs. THYROID: Unremarkable. HEART AND PERICARDIUM: Coronary artery calcifications are present. No pericardial effusion. MEDIASTINUM AND TAYLOR: No mediastinal or hilar adenopathy. Esophagus is unremarkable. No hiatal hernia. VESSELS: No thoracic aortic aneurysm. UPPER ABDOMEN: The visualized upper abdomen is unremarkable. BONES: No acute abnormality. IMPRESSION: No pulmonary nodules. Lung-RADS Category 1 (negative, <1% chance of malignancy). Recommend continuing annual screening with low-dose CT. Assessment and Plan Assessment and Plan (1) Atrial fibrillation: Status: Chronic Plan: At last office visit she was started on metoprolol therapy for rate control. She underwent echocardiogram that showed a preserved ejection fraction. She underwent a stress test that was mildly abnormal. On account of abnormal stress test, she will proceed with heart catheterization. Depending on results, further recommendation be made. (2) Hypertension: Status: Chronic Plan: This was noted be elevated at last office visit and she was started on metoprolol therapy. (3) Chronic airway obstruction: Status: Chronic Plan: As per pulmonology. (4) Sleep apnea: Status: Chronic Plan: On CPAP. Continue as per pulmonology. (5) Morbid obesity: Status: Chronic Plan: Lose weight. COUNT INCLUDES THE [facility] Medical History (Updated 03/27/24 @ 15:18 by Whitney WHITTEN, PA) Acute respiratory failure with hypoxia Acute sinusitis Anxiety Arthritis Asthma Atrial fibrillation with rapid ventricular response Back pain Bronchitis Bursitis Cellulitis and abscess of face Cellulitis of left forearm Chronic airway obstruction COPD exacerbation Depression Fatigue GERD (gastroesophageal reflux disease) Hemorrhoids Knee pain Lung disease Migraines Morbid obesity Motion sickness Olecranon bursitis of right elbow Osteopenia Sebaceous cyst of axilla Septic olecranon bursitis of right elbow Sleep apnea Smoker SOB (shortness of breath) Tachycardia URI (upper respiratory infection) Urinary tract infection Home Medications calcium carbonate 500 mg PO DAILY calcium 09/07/18 [History Last Taken 07/08/23 13:00] montelukast 10 mg tablet 10 mg PO QHS allergies 09/07/18 [History Last Taken Unknown] pantoprazole 40 mg tablet,delayed release 40 mg PO DAILY GERD 08/10/21 [History Last Taken Unknown] cetirizine 10 mg tablet (24Hour Allergy) 10 mg PO QHS allergies 07/08/23 [History Last Taken 07/07/23 21:30] fluticasone fur. 200 mcg-umeclid 62.5 mcg-vilant 25 mcg inhalat.powder (Trelegy Ellipta) 1 inh inhalation DAILY SOB 07/08/23 [History Last Taken 07/08/23] fluticasone propionate 50 mcg/actuation nasal spray,suspension 2 spray intranasal QHS nasal dryness 07/08/23 [History Last Taken Unknown] rimegepant 75 mg disintegrating tablet (Nurtec ODT) 75 mg PO DAILY PRN migraine 07/08/23 [History Last Taken Unknown] albuterol sulfate 90 mcg/actuation aerosol inhaler 2 puff inhalation Q4H PRN Shortness Of Breath 02/13/24 [History Last Taken Unknown] escitalopram oxalate 20 mg tablet 20 mg PO DAILY 02/13/24 [History Last Taken Unknown] apixaban 5 mg tablet (Eliquis) 5 mg PO BID #60 tabs 02/19/24 [Rx Last Taken Unknown] diltiazem HCl 240 mg capsule,24 hr,extended release (Tiadylt ER) 240 mg PO QDAY 02/19/24 [History Last Taken Unknown] metoprolol tartrate 25 mg tablet 25 mg PO BID #180 tabs 02/19/24 [Rx Last Taken Unknown] Allergy/AdvReac Type Severity Reaction Status Date / Time house dust Allergy Unknown Verified 02/19/24 10:29 mold Allergy Unknown Verified 02/19/24 10:29 Family History Mother CAD (coronary artery disease) Diabetes C. difficile colitis Father CAD (coronary artery disease) Sister CAD (coronary artery disease) Brother , 62 Colon cancer Son , 45 Drug overdose Other Atrial fibrillation CHF (congestive heart failure) Cancer Heart disease Surgical History H/O left cataract extraction H/O right heart catheterization (~07/19/22) History of appendectomy (~1994) Hx of removal of ovary (~1994) Social History (Updated 02/19/24 @ 10:32 by Becca Hart) Smoking Status: Former smoker alcohol intake: current alcohol intake frequency: holidays/special occasions only substance use type: does not use caffeine: Yes Type: coffee Number of servings: 2 Cardiology Labs/Tests Cardiology Labs/Tests: Rhythm: EKG: ECHO: Stress Test: Cardiac Cath: PCI: CT Surgery: Holter monitor: EPS: PPM: CXR: Chest CT Scan: Procedure Criteria Type of Procedure Procedure Type: Elective Elective Risks - COVID COVID Risk Discussion: The surgeon/proceduralist and patient have discussed in detail the risk of exposure to and/or potential harm posed by the COVID-19 virus with having a surgery/procedure at this time versus the risk of delaying the surgery/procedure. It is not possible to know either the risk of delaying the surgery or procedure or chance of getting an infection with perfect accuracy, but a joint decision was made between the patient and the surgeon/proceduralist to proceed at this time with the scheduled surgery/procedure as indicated on the consent form.
--- NOTE | 2024-03-31 14:52 | PCM.HP.BLA ---
History and Physical Date of Admission: 04/09/24 Payal Clark is a 68 year old female with a past medical history significant for severe COPD and hypertension. She has been attending pulmonary rehabilitation where and she was noted to have atrial fibrillation with rapid ventricular response. Subsequently she was sent to the emergency room. In the emergency room, she was started on diltiazem and apixaban and sent home. Echocardiogram in February 2024 demonstrated a preserved ejection fraction of 65% with an RVSP of 63 mmHg.Pharmacologic nuclear stress test demonstrated mildly reduced perfusion of the apex and septum and post rest images suggestive of mild ischemia. Patient is scheduled to undergo a diagnostic heart catheterization because of this. Patient denies any palpitations. She denies any lightheadedness or dizziness. No syncope or presyncope. No chest pain. She has chronic shortness of breath on account of her COPD and is on 24-hour supplemental oxygen therapy. Also history of sleep apnea. Sleeps with a CPAP at night. Medical History (Updated 02/19/24 @ 11:[address] Chandni Courtney MD) Acute respiratory failure with hypoxia Acute sinusitis Anxiety Arthritis Asthma Atrial fibrillation with rapid ventricular response Back pain Bronchitis Bursitis Cellulitis and abscess of face Cellulitis of left forearm Chronic airway obstruction COPD exacerbation Depression Fatigue GERD (gastroesophageal reflux disease) Hemorrhoids Knee pain Lung disease Migraines Morbid obesity Motion sickness Olecranon bursitis of right elbow Osteopenia Sebaceous cyst of axilla Septic olecranon bursitis of right elbow Sleep apnea Smoker SOB (shortness of breath) Tachycardia URI (upper respiratory infection) Urinary tract infection Surgical History H/O left cataract extraction H/O right heart catheterization (~07/19/22) History of appendectomy (~1994) Hx of removal of ovary (~1994) Family History Mother CAD (coronary artery disease) Diabetes C. difficile colitis Father CAD (coronary artery disease) Sister CAD (coronary artery disease) Brother , 62 Colon cancer Son , 45 Drug overdose Other Atrial fibrillation CHF (congestive heart failure) Cancer Heart disease Social History (Updated 02/19/24 @ 10:32 by Becca Hart) Smoking Status: Former smoker alcohol intake: current alcohol intake frequency: holidays/special occasions only substance use type: does not use caffeine: Yes Type: coffee Number of servings: 2 ROS Const Const: Positive for fatigue and daytime sleepiness (usually); Negative for weakness, headache(s), frequent falls, difficulty sleeping or excessive sweating Eyes Eyes: Negative for loss of peripheral vision, transient loss of vision, blurry vision, double vision or tunnel vision ENT ENT: Negative for headache(s), dizziness, Nosebleed/epistaxis or balance problems Cardio Chest Pain: No Palpitations: Yes feels like its: fast and pounding Edema: None Muscle aches with walking: None Resp Respiratory: Positive for SOB with activity, SOB at rest and SOB orthopnea\SOB lying down; Negative for Cough or paroxysmal nocturnal dyspnea Additional Details: 3L continuous since June 2023 GI GI: Positive for heartburn and other (passing a lot of gas); Negative nausea, vomiting or black,tarry stools : Negative for hematuria Musc Musc: Positive for muscle weakness and joint pain; Negative for muscle aches/ myalgia or balance problems Skin Skin: Negative non-healing lesions, rash or unusual bruising Neuro Neuro: Negative for dizziness, lightheadedness, near syncope, syncope, frequent falls, headache(s), weakness, blurry vision, double vision or lack of coordination Nahum Hematologic/Lymphatic: Negative for easy bleeding or easy bruising Endo Endo: Positive for fatigue; Negative for excessive sweating or increased thirst/drinking Psych Psych: Negative for anxiety or depression Allergy Allergy/Immunology: Negative for hives and Negative for rash Cardiology Exam Const Appearance: comfortable and no acute distress Nutritional Appearance: obese Neck Neck: no JVD Carotids: Negative bruit Chest Auscultation: Bilateral: Diminished Lung Sounds Cardio Rhythm: irregularly irregular Heart sounds: S1 normal and S2 normal GI GI: obese Neuro General: patient alert, patient awake and patient oriented x3 Extremities Lower Extremity Edema: None: Bilateral Assessment & Plan Assessment/Plan (1) Abnormal stress test: (2) Atrial fibrillation with rapid ventricular response: PLAN: Plan Patient is scheduled to undergo a diagnostic heart catheterization. Follow-up will be based upon findings.
[2024-04-08 14:01] VITALS: BMI 40.6
--- NOTE | 2024-04-09 12:52 | CL.D_ITS ---
Patient Name: PIPER OLIVER Study Date: 04/09/2024 Performing: Chandni Courtney MD Ht: 62 inches 157.48 cm : 1955 Wt: 222.01 lbs 100.7 kg Age: 68 Gender: female BSA: 2 PROCEDURE(S) PERFORMED [id number])LHC/COR CLINICAL PROFILE AND INDICATIONS Indications: Suspected CAD Heart Failure: None Stress/Imaging Stress Test w/SPECT MPI: Yes Result: Positive Intermediate RiskStress Test with SPECT MPI: Positive Intermediate Risk CAD Presentations: Other CONCLUSIONS 40% Mid LAD, 30% Mid RCA RECOMMENDATIONS Risk factor modification DESCRIPTION OF PROCEDURE The patient arrived to the procedure lab. The risks and benefits of the procedure as well as a full description of our services here and current unavailability of surgical backup were fully explained to the patient and/or their significant other prior to the catheterization. The Timeout was completed, verifying the correct patient and procedure. The patient's procedural site was prepped and draped in the usual fashion. Local anesthetic was given subcutaneously to right radial region with Lidocaine 2%. Using a modified Seldinger technique, arterial access was obtained via the right radial artery, a 6Fr sheath was inserted. Left Coronary Artery selective angiography was performed in multiple views using a 5 Fr. 4.0 [place] catheter. Right Coronary Artery selective angiography was then performed in multiple views using a 5 Fr. JR 4 catheter.The arterial sheath was pulled and a TR Band was applied for hemostasis 13 ml of air CORONARY ANGIOGRAPHY DOMINANCE: Right Dominant LEFT MAIN: Angiographically normal LEFT ANTERIOR DESCENDING ARTERY: LAD: Tubular 40% Mid lesion in LAD RIGHT CORONARY ARTERY: RCA: Tubular 30% Mid lesion in RCA COMPLICATIONS No Complications PROCEDURE MEDICATIONS Fentanyl 50 mcg IV Versed 1 mg IV Oxygen: 3 L/min via nasal cannula Heparin given IA 04/09/2024 12:36:38 Verapamil 2.5mg, Ntg 200mcgs, 2000 units of Heparin given IA 04/09/2024 12:36:38 IV Bolus: .9 NaCl 250 ml total 04/09/2024 12:32:36 SUMMARY OF HEMODYNAMIC DATA Time AIR REST ECG 09:55:32 AO 114/61 (79) SA 12:39:34 Signed By Chandni Courtney MD On 04/09/2024 12:51:52 Chandni Courtney MD
== END 2024-04-09 15:00 | disposition home or self-care (01) ==
PROVIDERS: PCP Family Medicine; Referring Provider Internal Medicine Cardiovascular Disease; Visit Provider Internal Medicine Cardiovascular Disease
DX: I25.9 Chronic ischemic heart disease, unspecified (principal); J44.9 Chronic obstructive pulmonary disease, unspecified; I48.20 Chronic atrial fibrillation, unspecified; E66.01 Morbid (severe) obesity due to excess calories; I10 Essential (primary) hypertension; Z87.891 Personal history of nicotine dependence; Z79.01 Long term (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 anticoagulants; K21.9 Gastro-esophageal reflux disease without esophagitis; Z79.899 Other long term (current) drug therapy; G47.30 Sleep apnea, unspecified; R94.39 Abnormal result of other cardiovascular function study
CPT/HCPCS: 93454; 99152; 99153; J7040; Q9967; C1769; C1894

== ENCOUNTER → 2024-05-16 | Outpatient (CLI) | payer MEDICARE, SELFPAY ==
[2024-01-14 10:08] VITALS: BMI 40.8
[2024-05-16 14:58] LABS: Anion Gap 3 (5-15); BUN 20 mg/dL (7-18); BUN/Creat Ratio 20.9 RATIO (10-20); Calcium,Total 9.1 mg/dL (8.5-10.1); Chloride 99 mmol/L (98-107); Cholesterol 174 mg/dL (200); Creatinine, Serum 0.96 mg/dL (0.55-1.02); EST Glomerular Filtration Rate 61 mL/min (>60); Est Glom Filt Rate - Afr Amer 74 mL/min (>60); Glucose 101 mg/dL (74-106); High Density Lipoprotein 60 mg/dL; Potassium 4.2 mmol/L (3.5-5.1); Sodium Level 138 mmol/L (136-145); Triglycerides 111 mg/dL; Very Low Density Lipoprotein 22 mg/dL (5-40)
== END | disposition home or self-care (01) ==
LOC: LAB 13:34
PROVIDERS: PCP Family Medicine; Referring Provider Internal Medicine Cardiovascular Disease; Visit Provider Internal Medicine Cardiovascular Disease
DX: I25.10 Atherosclerotic heart disease of native coronary artery without angina pectoris (principal); J44.9 Chronic obstructive pulmonary disease, unspecified; I48.91 Unspecified atrial fibrillation; I10 Essential (primary) hypertension; E78.5 Hyperlipidemia, unspecified; R94.39 Abnormal result of other cardiovascular function study
CPT/HCPCS: 36415; 80048; 80061

== ENCOUNTER 2024-08-17 11:15 | Emergency (ER) | payer MEDICARE, SELFPAY ==
[2024-01-14 10:08] VITALS: BMI 40.8
[2024-08-17 11:15] VITALS: BP 147/91; PULSE 75; RESP 14; TEMP 36.8; O2SAT 97
--- NOTE | 2024-08-17 11:39 | RAD_ITS ---
HISTORY: pain fall. TECHNIQUE: XR Shoulder Min 2 Views. COMPARISON: None. FINDINGS: BONES : Comminuted fracture of the humeral head and neck with impaction and mild lateral displacement of the greater tuberosity fracture fragment. Old fracture of the left fifth rib laterally. JOINTS: No glenohumeral dislocation or acromioclavicular subluxation. Mild inferior displacement of the humeral head relative to the glenoid likely secondary to joint effusion. Mild degenerative change. SOFT TISSUES: Left lung apex clear. RAD/Shoulder min 2 Views IMPRESSION: Comminuted, mildly displaced, and impacted fracture of the left humeral head and neck. Electronically Signed: Clarisse Mendoza MD at 12:24 EDT ,
--- NOTE | 2024-08-17 12:00 | RAD_ITS ---
HISTORY: pain fall. TECHNIQUE: XR Humerus Min 2 Views. COMPARISON: None. FINDINGS: BONES : Comminuted fracture of the left proximal humerus with mild posterolateral displacement of the greater tuberosity fracture fragment and impaction of the humeral neck. JOINTS: No dislocation. Mild degenerative change. RAD/Humerus min 2 Views IMPRESSION: Comminuted and mildly displaced fracture of the left humeral head and neck. Electronically Signed: Clarisse Mendoza MD at 12:25 EDT ,
[2024-08-17 12:36] VITALS: BMI 44.5
--- NOTE | 2024-08-17 12:49 | EDS_ITS ---
HPI History of Present Illness HPI Narrative: 69-year-old female tripped and fell on her oxygen tubing last night around 11 PM. Injuring her left shoulder. They were babysitting her grandchildren last night and come into the day. Denies hitting her head. No other complaints. She is ambidextrous and uses both hands. Chief Complaint: Upper Extremity Injury Informant: patient and spouse/S.O. Occured/Mechanism Mechanism/Context: Yes injury and Yes blunt trauma Onset/Context/Timing Onset: Yesterday and Hours Context: Sudden Onset Timing: Continuous Quality of Pain: Sharp Current Severity: Moderate Maximum Severity: Moderate Associated Symptoms Associated Symptoms: Negative for Parasthesia, Weakness or Loss of Funtion Narrative Narrative: 69-year-old tripped and fell yesterday over her oxygen tubing and injured her left shoulder. Denies hitting her head. No headache. No other complaints. Prior similar symptoms: No Recent Illness/Hospitalization: No PFSH PFSH Medical History Atrial fibrillation Hypertension Abnormal stress test Atrial fibrillation with rapid ventricular response Tachycardia Asthma Chronic airway obstruction Motion sickness Osteopenia Sleep apnea GERD (gastroesophageal reflux disease) Morbid obesity Anxiety Fatigue Smoker Depression Migraines Acute respiratory failure with hypoxia COPD exacerbation Acute sinusitis Cellulitis of left forearm Cellulitis and abscess of face Urinary tract infection Septic olecranon bursitis of right elbow Olecranon bursitis of right elbow Bursitis Sebaceous cyst of axilla Back pain Bronchitis URI (upper respiratory infection) Knee pain Hemorrhoids SOB (shortness of breath) Lung disease Arthritis Home Medications ?Medication ?Instructions ?Recorded ?Last Taken ?Type calcium carbonate 500 mg PO DAILY calcium 09/07/18 07/08/23 13:00 History montelukast 10 mg tablet 10 mg PO QHS allergies 09/07/18 Unknown History cetirizine 10 mg tablet (24Hour 10 mg PO QHS allergies 07/08/23 07/07/23 21:30 History Allergy) fluticasone fur. 200 mcg-umeclid 1 inh inhalation DAILY SOB 07/08/23 07/08/23 History 62.5 mcg-vilant 25 mcg inhalat.powder (Trelegy Ellipta) fluticasone propionate 50 2 spray intranasal QHS nasal 07/08/23 Unknown History mcg/actuation nasal dryness spray,suspension rimegepant 75 mg disintegrating 75 mg PO DAILY PRN migraine 07/08/23 Unknown History tablet (Nurtec ODT) albuterol sulfate 90 mcg/actuation 2 puff inhalation Q4H PRN 02/13/24 Unknown History aerosol inhaler Shortness Of Breath escitalopram oxalate 20 mg tablet 20 mg PO DAILY 02/13/24 Unknown History apixaban 5 mg tablet (Eliquis) 5 mg PO BID #60 tabs 02/19/24 04/05/24 Rx diltiazem HCl 240 mg capsule,24 240 mg PO QDAY 02/19/24 04/09/24 History hr,extended release (Tiadylt ER) metoprolol tartrate 25 mg tablet 25 mg PO BID #180 tabs 02/19/24 04/09/24 Rx furosemide 40 mg tablet 40 mg PO QAM #90 tabs 05/07/24 Unknown Rx omeprazole 40 mg capsule,delayed 40 mg PO DAILY 05/07/24 Unknown History release potassium chloride 20 mEq 20 meq PO DAILY #90 tabs 05/07/24 Unknown Rx tablet,extended release hydrocodone 5 mg-acetaminophen 300 1 tab PO Q4H PRN pain 6 days #20 08/17/24 Unknown Rx mg tablet tabs Allergy/AdvReac Type Severity Reaction Status Date / Time feathers Allergy Intermediate Shortness Verified 08/17/24 11:16 of breath house dust Allergy Unknown Verified 08/17/24 11:16 mold Allergy Unknown Verified 08/17/24 11:16 Family History Mother CAD (coronary artery disease) Diabetes C. difficile colitis Father CAD (coronary artery disease) Sister CAD (coronary artery disease) Brother , 62 Colon cancer Son , 45 Drug overdose Other Atrial fibrillation CHF (congestive heart failure) Cancer Heart disease Surgical History Hx of cardiac catheterization (~04/09/24) H/O left cataract extraction H/O right heart catheterization (~07/19/22) Hx of removal of ovary (~1994) History of appendectomy (~1994) Social History Smoking Status: Former smoker alcohol intake: current alcohol intake frequency: holidays/special occasions only substance use type: does not use caffeine: Yes Type: coffee Number of servings: 2 ROS ROS ED ROS Narrative Patient denies recent illness. Constitutional Constitutional ED: Denies chills or fever(s) Eyes Eyes: Denies blurry vision ENT ENT ED: Denies ear pain Cardiovascular Cardiovascular: Denies chest pain Respiratory/Chest Respiratory/Chest: Denies cough or dyspnea Gastrointestinal Gastrointestinal: Denies abdominal pain Genitourinary Genitourinary ED: Denies dysuria or hematuria Musculoskeletal Musculoskeletal: Denies back pain Integumentary Denies abscess Neurologic Neurologic: Denies headache(s) Psychiatric Psychiatric: Denies anxiety Endocrine Endocrinology: Denies cold intolerance Hematologic/Lymphatic Hematologic/Lymphatic: Denies easy bleeding Allergic/Immunologic Allergic/Immunologic ED: Denies mouth swelling EXAM Physical Exam Narrative Exam Narrative: Well-appearing 69-year-old female. Vital signs are stable afebrile. Sitting upright in bed. Has a makeshift homemade sling on. at bedside. H EENT exam unremarkable. Pupils round react light. Nontender. No hematoma. Neck nontender. Back nontender. Lungs clear. Heart regular rhythm rate about 70 no murmur. Chest wall and ribs nontender. Abdomen soft nontender. Pelvic girdle intact. Hips are nontender no shortening or rotation. Dorsi plantarflexion intact. Normal flexion extension of both knees. Right upper extremity unremarkable. Left shoulder tender to palpation. Held in internal rotation. Distal humerus, elbow, left forearm, wrist and hand are nontender neurovascular intact with normal radial pulse. Equipment Associate strength and sensation. Neurologically she is awake and alert no focal motor deficits. Answering questions following commands. Const Vital Signs: 08/17/24 11:15 Temperature 98.3 F Temperature Source Temporal Pulse Rate 75 Respiratory Rate 14 Blood Pressure 147/91 H Blood Pressure Mean 109 Pulse Ox 97 Oxygen Delivery Method Room Air Positive well nourished and well developed; Negative for cachectic, contractures or unkempt General Appearance ED: well developed and NAD; Negative for unkempt, cachectic, contractures, cyanotic or diaphoretic Nutritional Appearance: Negative for cachectic HEENT Reports moist mucous membranes normocephalic and atraumatic; Negative for trauma or tenderness Eyes PERRL and EOMs intact bilaterally General Eye ED: Negative for other Neck full ROM and supple General: Negative for tenderness Lymph Lymphatic: Negative for other Chest Wall inspection of chest normal and palpation of chest normal Resp normal respiratory effort and clear to auscultation bilaterally Effort and Inspection: Negative for pain with movement Auscultation: Negative for rales, rhonchi or wheezes Cardio regular rate, regular rhythm, S1 normal heart sound, S2 normal heart sound and no murmurs Rate: Negative for bradycardia or tachycardic GI non-tender, non-distended and no masses Inspection: Negative for abdominal distention Auscultation: normoactive bowel sounds Palpation: soft; Negative for tender, guarding or rebound tenderness present Back/Spine no CVA tenderness General Back: Negative for CVA tenderness Cervical Spine: Negative for cervical spine tenderness Thoracic Spine / Upper Back: Negative for thoracic spinal tenderness Lumbar Spine / Lower Back: Negative for lumbar spinal tenderness Extremity normal to inspection and full ROM Extremity Narrative: Except left shoulder tender to palpation. Held in internal rotation. Distal humerus, elbow, forearm wrist and hand are nontender neurovascular intact. General Extremety ED: Negative for edema General Extremity: Negative for edema Neuro oriented x3, CN's II-XII intact bilaterally, moves all extremities, no focal motor deficits and no sensory deficits noted Sensorium / Orientation: alert, oriented to person, oriented to place and orien keren to time; Negative for orientation impaired or lethargic Motor Exam: strength 5/5 throughout Psych mental status grossly normal Appearance: Negative for unkempt Attitude: No agitated Mood & Affect: Negative for depressed, anxious or tearful Skin General Skin Exam: Negative for petechiae Lesions: no lesions Rashes: no rashes Trauma: no lacerations or abrasions; Negative for abrasion or laceration MDM MDM MDM Narrative Medical decision making narrative: 69-year-old female tripped and fell has a left humeral head fracture seen on x- rays. She will be placed in a sling. Given a Vicodin here. Vicodin prescription for home. Orthopedic follow-up. She has outpatient labs she supposed to come the hospital get tomorrow. I am okay with sending this today to be followed up by her ict help desk technician. History & Record Review Discussion w/independent historian: Patient and Family Additional record(s) reviewed:: Prior inpatient record, Prior outpatient record, Prior ED visit and Prior labs Lab Data Lab results narrative: Left shoulder x-ray, 2 views shows a comminuted left humeral head fracture. Interpreted by myself and radiologist. Left humerus x-ray 3 views interpreted both by myself and radiologist shows again the left humeral head comminuted fracture. The distal humerus is unremarkable. Radiography Diagnostic Testing: Clinical Impression(s) from Imaging Studies Shoulder X-Ray 08/17/24 11:39 IMPRESSION: Comminuted, mildly displaced, and impacted fracture of the left humeral head and neck. Electronically Signed: Clarisse Mendoza MD at 12:24 EDT , Humerus X-Ray 08/17/24 12:00 IMPRESSION: Comminuted and mildly displaced fracture of the left humeral head and neck. Electronically Signed: Clarisse Mendoza MD at 12:25 EDT , Discharge Plan Triage Chief Complaint: Upper Extremity Injury ED Provider: Braden Bower Dx/Rx/DC Orders Clinical Impression: Fall, Fracture of left shoulder, History of atrial fibrillation, Chronic anticoagulation Instructions: ED Fracture, Shoulder Prescriptions: New hydrocodone-acetaminophen 5-300 mg tablet 1 tab PO Q4H PRN (Reason: pain) 6 Days Qty: 20 0RF No Action escitalopram oxalate 20 mg tablet 20 mg PO DAILY diltiazem HCl [Tiadylt ER] 240 mg capsule,extended release 24 hr 240 mg PO QDAY metoprolol tartrate 25 mg tablet 25 mg PO BID Qty: 180 3RF Eliquis 5 mg tablet 5 mg PO BID Qty: 60 11RF omeprazole 40 mg capsule,delayed release(DR/EC) 40 mg PO DAILY furosemide 40 mg tablet 40 mg PO QAM Qty: 90 3RF potassium chloride 20 mEq tablet extended release 20 meq PO DAILY Qty: 90 3RF calcium carbonate 500 MG tablet 500 mg PO DAILY montelukast 10 MG tablet 10 mg PO QHS albuterol sulfate 90 mcg/actuation HFA aerosol inhaler 2 puff Inhalation Q4H PRN (Reason: Shortness Of Breath) Nurtec ODT 75 mg tablet,disintegrating 75 mg PO DAILY PRN (Reason: migraine) Patient Comments: TAKE 1 (ONE) TABLET BY MOUTH DAILY IF NEEDED FOR MIGRAINE cetirizine [24Hour Allergy] 10 mg tablet 10 mg PO QHS Trelegy Ellipta 200-62.5-25 mcg blister with device 1 inh inhalation DAILY fluticasone propionate 50 mcg/actuation spray,suspension 2 spray INTRANASAL QHS Primary Care Provider: Christy Perea Referrals: Christy Perea MD [Primary Care Provider] - Tonny De Santiago DO [Med Staff - Active Staff] - As soon as possible Activity Restrictions/Additional Instructions: Sling to immobilize your shoulder. You can take it off when you bathe. Vicodin for pain. Take it with food on your stomach to prevent nausea. Plenty of fluids and fiber to prevent constipation. May even need a stool softener. Call and follow-up with the orthopedic surgeon. Call their office tomorrow to see when they can get you in. You have a left shoulder or humeral head fracture. Print Language: Guatemalan Disposition Disposition: Home, Self Care
--- NOTE | 2024-08-17 12:56 | ED.RN ---
Per patient, she was to have outpatient lab work done tomorrow, no orders found for this patient. She states it was in concern of her newly started lasix and potassium concerns. Due to injuries Dr. Bower approved to order tests to be sent today while in ED. This nurse received a verbal order to order Mag, CBC, CMP.
[2024-08-17] MEDS: HYDROcodone Bitartrate/Apap 5/325 Tablet PO (13:03)
--- NOTE | 2024-08-17 13:17 | ED.RN ---
Patient requests labwork results to be sent to Dr. Courtney's office
[2024-08-17 13:20] LABS: Absolute Lymphocyte Count 1.57 X10^3/uL (0.83-4.51); Absolute Neutrophil Count 11.9 X10^3/uL (2.0-7.7); Basophil# 0.05 X10^3/uL; Basophil% 0.3 % (0-1); Eosinophil# 0.07 X10^3/uL; Eosinophils% 0.5 % (0-5); Hematocrit 39.7 % (37-47); Hemoglobin 12.2 g/dL (12.0-15.0); Lymphocyte # 1.57 X10^3/ul (0.83-4.51); Lymphocyte % 10.3 % (19-41); Mean Corp Hgb Conc 30.7 g/dL (32-36); Mean Corpuscular Hgb 28.6 pg (27.0-32.0); Mean Platelet Vol. 9.5 fl (6.2-12.0); Monocyte# 1.67 X10^3/uL; Monocyte% 10.9 % (0-10); NRBC Flagged by Analyzer 0 % (0-5); Neutrophil # 11.85 X10^3/uL (2.7-7.7); Neutrophil % 77.6 % (47-70); POSITIVE DIFFERENTIAL YES; Platelet Count 312 K/mm3 (150-450); RBC Distribution Width SD 51.1 fl (35.1-43.9); Red Blood Count 4.27 M/mm3 (4.2-5.4); White Blood Count 15.3 K/mm3 (4.4-11.0)
[2024-08-17 13:23] LABS: Differential Indicated SCAN CRITERIA MET
[2024-08-17 13:37] LABS: ALB/GLOB Ratio 0.8 RATIO (0.9-2.4); AST(SGOT) 17 U/L (15-37); Alanine Aminotransfer ALT/SGPT 23 U/L (13-56); Albumin, Serum 3.3 g/dL (3.2-5.0); Alkaline Phosphatase 66 U/L (45-117); Anion Gap 2 (5-15); BUN 17 mg/dL (7-18); BUN/Creat Ratio 23.2 RATIO (10-20); Calcium,Total 9.4 mg/dL (8.5-10.1); Chloride 101 mmol/L (98-107); Creatinine, Serum 0.73 mg/dL (0.55-1.02); EST Glomerular Filtration Rate 83 mL/min (>60); Est Glom Filt Rate - Afr Amer 100 mL/min (>60); Estimated Creatinine Clearance 75.61 ml/min; Globulin 3.9 g/dL (2.2-4.2); Glucose 110 mg/dL (74-106); Magnesium 1.8 mg/dL (1.6-2.6); Potassium 4.1 mmol/L (3.5-5.1); Protein, Total 7.2 g/dL (6.4-8.2); Sodium Level 139 mmol/L (136-145)
[2024-08-18 11:30] LABS: Pathologist Review Reviewed
== END 2024-08-17 13:59 | disposition home or self-care (01) ==
PROVIDERS: Emergency Provider Emergency Medicine; PCP Family Medicine; Referring Provider Internal Medicine Cardiovascular Disease; Visit Provider Emergency Medicine
DX: S42.292A Other displaced fracture of upper end of left humerus, initial encounter for closed fracture (principal); J44.9 Chronic obstructive pulmonary disease, unspecified; I48.91 Unspecified atrial fibrillation; W18.09XA Striking against other object with subsequent fall, initial encounter; I10 Essential (primary) hypertension; K21.9 Gastro-esophageal reflux disease without esophagitis; Z79.01 Long term (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 anticoagulants; Z79.51 Long term (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 inhaled steroids; Z79.899 Other long term (current) drug therapy; Z87.891 Personal history of nicotine dependence
CPT/HCPCS: 73030; 73060; 80053; 83735; 85025; 99282

== ENCOUNTER → 2024-08-19 | Outpatient (CLI) | payer MEDICARE, SELFPAY ==
[2024-08-18 10:21] VITALS: BMI 40.8
[2024-08-19 16:26] LABS: Mucous, Urine 0 SEEN /hpf (<or=2+); Red Blood Cells-Urine 0 SEEN /hpf (0-5); Squamous Epithelial Cells - UA 0 SEEN /hpf (5-10)
[2024-08-19 17:59] LABS: Color, Urine Straw (Yellow); Glucose, Dipstick Normal (Normal); Ketone-Dipstick Negative (Negative); Leukocyte Esterase-Dipstick 25 /ul (Negative); Nitrite-Dipstick Negative (Negative); Occult Blood-Urine 10 /ul (Negative); Protein-Dipstick Negative (Negative); Specific Gravity, Urine 1.015 (1.002-1.030); Urine Bilirubin Dipstick Negative (Negative); Urine Clarity Clear (Clear); Urine Urobilinogen Normal (Normal)
[2024-08-19 18:24] LABS: Bacteria 1+ /hpf (None Seen); White Blood Cells 5-10 SEEN /hpf (0-5)
== END | disposition home or self-care (01) ==
LOC: LABSPEC 16:25
PROVIDERS: PCP Family Medicine; Visit Provider Family Medicine
DX: R30.9 Painful micturition, unspecified (principal)
CPT/HCPCS: 81001; 87086; 87088; 87186

== ENCOUNTER → 2024-09-08 | Outpatient (CLI) | payer MEDICARE, SELFPAY ==
[2024-01-14 10:08] VITALS: BMI 40.8
[2024-08-18 10:21] VITALS: BMI 40.8
--- NOTE | 2024-09-08 13:52 | CT_ITS ---
HISTORY: Personal history of nicotine dependence. TECHNIQUE: Helically acquired images were obtained of the chest without contrast. A radiation dose optimization technique was used for this scan. 841 images. COMPARISON: XR 01/21/2024. CT 09/06/2023, 11/21/2021. FINDINGS: LARGE AIRWAYS: Patent. LUNGS: Centrilobular emphysema and chronic linear scarring in the mid lungs. No new suspicious nodule or acute alveolar consolidation. PLEURA: No pneumothorax or significant pleural effusion. HEART/PERICARDIUM: Heart within normal limits in size with coronary artery calcification. No pericardial effusion. VESSELS: Thoracic aorta nondilated. Mild atherosclerosis. MEDIASTINUM/TAYLOR: No pathologically enlarged adenopathy. BONES: Comminuted and mildly displaced fracture of the left humeral head and neck with mild heterotopic ossification. CT/Low Dose CT Lung Screening IMPRESSION: Lung-RADS category 1: Continue annual screening with low dose CT. Subacute fracture of the left proximal humerus. Electronically Signed: Clarisse Mendoza MD at 8:27 EDT ,
== END | disposition home or self-care (01) ==
PROVIDERS: PCP Family Medicine; Referring Provider Internal Medicine Pulmonary Disease; Visit Provider Internal Medicine Pulmonary Disease
DX: Z12.2 Encounter for screening for malignant neoplasm of respiratory organs (principal); Z87.891 Personal history of nicotine dependence
CPT/HCPCS: 71271

== ENCOUNTER → 2024-10-02 | Outpatient (CLI) | payer MEDICARE, SELFPAY ==
[2024-01-14 10:08] VITALS: BMI 40.8
[2024-08-18 10:21] VITALS: BMI 40.8
== END | disposition home or self-care (01) ==
LOC: OPBI 12:59
PROVIDERS: PCP Family Medicine; Referring Provider Family Medicine; Visit Provider Family Medicine
DX: Z12.31 Encounter for screening mammogram for malignant neoplasm of breast (principal)
CPT/HCPCS: 77063; 77067

== ENCOUNTER 2024-11-05 14:00 | Outpatient (RCR) | payer MEDICARE, SELFPAY ==
[2024-08-18 10:21] VITALS: BMI 40.8
--- NOTE | 2024-09-09 13:44 | HP.PTEVAL ---
Patient's Visit Information Visit Information Visit Information: PIPER OLIVER is a 69 year old F referred to Physical Therapy by Dr. Curry Taylor MD with a diagnosis of L shoulder fracture. Date of Evaluation: 09/04/24 Physical Therapist: Nhan Styles, PT, ATC Visit Plan Frequency: 2x /Week Duration: 4 Weeks Plan: Begin with L shoulder PROM and AROM exercises for 4 weeks then progress to strengthening, scapular stabilization, core strengthening Subjective Subjective: Pt reports she fell and fractured her L shoulder 2 weeks ago. Pt reports difficulties with overhead activities, using the L UE in general, iADLs, and ADLs. States her husbands assists her with showering and getting dressed; unable to lift her L shoulder secondary to pain. Pt reports she is unable to lift her L UE due to weakness and lack of mobility. Pt reports she would like to get back to using the L UE in general; writing, all iADLs and ADLs. States she is R hand dominant. X-ray taken 2 weeks ago and showed fracture in L shoulder, no MRI has been done. Pt reports she wore a sling for 10 days which helped to alleviate some of the pain. No numbness or tingling going down her L UE. Pt reports her pain is a 3/10 at rest and is a 8/10. States the pain does affect her sleep. Pain L shoulder: Pain Intensity (Out of 10): 3 Pain Intensity Range: 8 Objective Objective: NEURO: sensation WNL B to light touch ROM: R shoulder flex= 150, abd= 145, ER= 58; L shoulder flex= 50, abd= 50, ER= 14, IR= max limited compared to R shoulder MMT: R shoulder flex= 12, abd= 11, ER= 15, IR= 20; L shoulder flex= 0, abd= 0, ER= 0, IR=0 #F Balance/Special Test Scores Quick DASH Score: 75.0000 Goals Goal 1:: Pt will decrease L shoulder pain by 50% to aid with sleep. Goal Time Frame: 4-6 Weeks Goal 2:: Pt will increase L shoulder ROM to within 90% of R shoulder to aid with overhead activities. Goal Time Frame: 4-6 Weeks Goal 3:: Pt will increase L shoulder strength to within 90% of R shoulder to aid with ADLs and iADLs. Goal Time Frame: 4-6 Weeks Goal 4:: Pt will be I with HEP. Goal Time Frame: 4-6 Weeks Rehabilitation Potential Physical Therapy Diagnosis: Decreased L shoulder ROM and strength Rehabilitation Potential: Good Anticipated Interventions Patient/Client Instruction: Educate patient on: Plan of Care Therapeutic Exercise to Include: Strength training, Body mechanics, Postural training, Passive ROM, Active ROM, Dynamic Lumbar Stabilization and Scapular Strength/Stabilization For the Purpose of:: To decrease pain, To increase ROM, To improve muscle performance and motor function, To improve ability to perform ADL's, To improve performance and independence with ADL's and To improve ability of physical actions for home/community/work/leisure Text: Thank you for the opportunity to evaluate your patient. For Medicare and Medicare HMO plans, please review the plan of care and approve it. It will need to be FAXED BACK to us at [phone] for Medicare purposes. For Medicare only, by signing this I certify the plan of care. Please let me know if there are questions or concerns regarding this plan of care. Physician Signature: Date:
--- NOTE | 2024-10-03 12:33 | HP.PTREVAL_ITS ---
Re-Evaluation Intro: Dr. Curry Taylor MD, It has been my pleasure to treat PIPER OLIVER over the last 6 visits for L shoulder fracture. Please see the progress note below for an update on the physical therapy plan of care! Subjective Subjective: My arm still hurts on occasion Objective Objective/Function: L shoulder pain ranges from 0-4/10 L shoulder ROM: flex= 95, abd= 85, ER= 15, IR= moderately limited (belt line) L shoulder MMT: flex= 5, abd= 9, ER= 8, IR= 8 #F Pt is I with HEP Pt is showing excellent progress at this time, but still lacks functional strength and ROM in L UE Plan Plan Plan: 10/03/24- Cont with ROM ex's and add strengthening, scapular stabilization, core strengthening Balance/Gait/Functional tests Balance/Special Test Scores Quick DASH Score: 20.4525 Goals Goals Goal 1:: Pt will decrease L shoulder pain by 50% to aid with sleep. Goal Time Frame: 4-6 Weeks Goal Progress: Goal Met Goal 2:: Pt will increase L shoulder ROM to within 90% of R shoulder to aid with overhead activities. Goal Time Frame: 4-6 Weeks Goal 3:: Pt will increase L shoulder strength to within 90% of R shoulder to aid with ADLs and iADLs. Goal Time Frame: 4-6 Weeks Goal 4:: Pt will be I with HEP. Goal Time Frame: 4-6 Weeks Anticipated Interventions Anticipated Interventions Patient/Client Instruction: Educate patient on: Plan of Care Therapeutic Exercise to Include: Strength training, Body mechanics, Postural training, Passive ROM, Active ROM, Dynamic Lumbar Stabilization and Scapular S trength/Stabilization For the Purpose of:: To decrease pain, To increase ROM, To improve muscle performance and motor function, To improve ability to perform ADL's, To improve performance and independence with ADL's and To improve ability of physical actions for home/community/work/leisure Re-Evaluation Ending Re-evaluation ending: Please do not hesitate to contact me at [phone] by phone or if you have questions or concerns regarding this new plan of care! Sincerely, Nhan Styles, PT, ATC
--- NOTE | 2025-01-05 10:58 | HP.PT.NRP ---
Patient Information Patient Information: PIPER OLIVER was seen in my office for initial evaluation on 09/04/24. The following Plan of Care was established for this patient: POC Established Initial Frequency: 2x /Week Initial Duration: 4 Weeks Anticipated Interventions Patient/Client Instruction: Educate patient on: Plan of Care Therapeutic Exercise to Include: Strength training, Body mechanics, Postural training, Passive ROM, Active ROM, Dynamic Lumbar Stabilization and Scapular Strength/Stabilization For the Purpose of:: To decrease pain, To increase ROM, To improve muscle performance and motor function, To improve ability to perform ADL's, To improve performance and independence with ADL's and To improve ability of physical actions for home/community/work/leisure Last Seen Last Seen: This patient was last seen in our office . Pertinent comments regarding their Physical therapy will appear below: Pt has not returned to physical therapy for greater than 30 days. Discontinue at this time. At this point I will be discontinuing this patient from physical therapy. I would be happy to see this patient again in the future if found appropriate by the physician. Thank you! Nhan Styles, PT, ATC Balance/Gait/Functional tests Balance/Special Test Scores Quick DASH Score: 20.4573
== END 2024-11-05 19:00 | disposition home or self-care (01) ==
LOC: PT 14:00
PROVIDERS: PCP Family Medicine; Referring Provider Orthopaedic Surgery Sports Medicine; Visit Provider Orthopaedic Surgery Sports Medicine
DX: S42.92XD Fracture of left shoulder girdle, part unspecified, subsequent encounter for fracture with routine healing (principal)
CPT/HCPCS: 97110; 97140; 97530

== ENCOUNTER → 2024-12-25 | Outpatient (CLI) | payer MEDICARE, SELFPAY ==
[2024-08-18 10:21] VITALS: BMI 40.8
== END | disposition home or self-care (01) ==
LOC: LABSPEC 15:25
PROVIDERS: PCP Family Medicine
DX: N39.0 Urinary tract infection, site not specified (principal)
CPT/HCPCS: 87077; 87086; 87088; 87186

== ENCOUNTER → 2025-02-05 | Outpatient (CLI) | payer MEDICARE, SELFPAY ==
[2024-08-18 10:21] VITALS: BMI 40.8
[2025-02-05 15:17] LABS: Absolute Lymphocyte Count 2.14 X10^3/uL (0.83-4.51); Absolute Neutrophil Count 7.5 X10^3/uL (2.0-7.7); Basophil# 0.05 X10^3/uL; Basophil% 0.4 % (0-1); Eosinophil# 0.25 X10^3/uL; Eosinophils% 2.2 % (0-5); Hemoglobin 12.1 g/dL (12.0-15.0); Lymphocyte # 2.14 X10^3/ul (0.83-4.51); Lymphocyte % 19.2 % (19-41); Mean Corp Hgb Conc 30.3 g/dL (32-36); Mean Corpuscular Hgb 28.2 pg (27.0-32.0); Mean Corpuscular Volume 93.2 fL (81-99); Mean Platelet Vol. 10.1 fl (6.2-12.0); Monocyte# 1.19 X10^3/uL; Monocyte% 10.7 % (0-10); NRBC Flagged by Analyzer 0 % (0-5); Neutrophil # 7.48 X10^3/uL (2.7-7.7); Neutrophil % 67.1 % (47-70); Platelet Count 310 K/mm3 (150-450); RBC Distribution Width CV 14.6 % (11.6-14.6); Red Blood Count 4.29 M/mm3 (4.2-5.4); White Blood Count 11.2 K/mm3 (4.4-11.0)
[2025-02-05 16:04] LABS: Erythrocyte Sedimentation Rate 55 mm/hr (0-30)
[2025-02-05 20:49] LABS: ALB/GLOB Ratio 1.3 RATIO (0.9-2.4); AST(SGOT) 16 U/L (<=31); Alanine Aminotransfer ALT/SGPT 12 U/L (<=34); Alkaline Phosphatase 63 U/L (35-104); Anion Gap 8 (5-15); BUN 14 mg/dL (4-19); BUN/Creat Ratio 20.6 RATIO (10-20); Calcium,Total 9.8 mg/dL (7.6-11.0); Carbon Dioxide 32.3 mmol/L (21.0-32.0); Chloride 98 mmol/L (98-108); Creatinine, Serum 0.69 mg/dL (0.70-1.20); EST Glomerular Filtration Rate 93 (>60); Globulin 3.2 g/dL (2.2-4.2); Glucose 98 mg/dL (70-99); Potassium 4.4 mmol/L (3.3-5.1); Protein, Total 7.1 g/dL (5.9-8.4); Sodium Level 139 mmol/L (133-145); Total Bilirubin 0.25 mg/dL (0.00-1.30)
== END | disposition home or self-care (01) ==
LOC: MFPLAB 13:44
PROVIDERS: PCP Family Medicine; Referring Provider Family Medicine; Visit Provider Family Medicine
DX: R53.83 Other fatigue (principal)
CPT/HCPCS: 36415; 80053; 84443; 85025; 85652; 86140

== ENCOUNTER → 2025-03-18 | Outpatient (CLI) | payer MEDICARE, SELFPAY ==
[2024-08-18 10:21] VITALS: BMI 40.8
[2025-03-18 09:11] LABS: AST(SGOT) 15 U/L (<=31); Alanine Aminotransfer ALT/SGPT 8 U/L (<=34); Albumin, Serum 3.7 g/dL (3.4-4.8); Alkaline Phosphatase 72 U/L (35-104); Anion Gap 8 (5-15); BUN 11 mg/dL (4-19); BUN/Creat Ratio 16.6 RATIO (10-20); Bilirubin, Direct 0.17 mg/dL (0.00-0.30); Calcium,Total 9.4 mg/dL (7.6-11.0); Carbon Dioxide 37.8 mmol/L (21.0-32.0); Chloride 91 mmol/L (98-108); Cholesterol 167 mg/dL (<=200); Creatinine, Serum 0.68 mg/dL (0.70-1.20); EST Glomerular Filtration Rate 93 (>60); Globulin 3.4 g/dL (2.2-4.2); Glucose 147 mg/dL (70-99); High Density Lipoprotein 65 mg/dL; Low Density Lipoprotein Calc. 89 mg/dL; Potassium 5.1 mmol/L (3.3-5.1); Pro- Brain NATRIURETIC PEPTIDE 1006 pg/mL (<=900); Protein, Total 7.1 g/dL (5.9-8.4); Sodium Level 137 mmol/L (133-145); Total Bilirubin 0.33 mg/dL (0.00-1.30); Triglycerides 66 mg/dL; Very Low Density Lipoprotein 13 mg/dL (5-40); cholesterol:hdl ratio screen 2.59
== END | disposition home or self-care (01) ==
LOC: LAB 08:03
PROVIDERS: PCP Family Medicine; Referring Provider Nurse Practitioner Gerontology; Visit Provider Nurse Practitioner Gerontology
DX: E78.5 Hyperlipidemia, unspecified (principal); R06.02 Shortness of breath; R60.0 Localized edema
CPT/HCPCS: 36415; 80048; 80061; 80076; 83880

== ENCOUNTER 2025-03-19 19:56 | Inpatient (IN) | payer MEDICARE, SELFPAY ==
[2024-08-18 10:21] VITALS: BMI 40.8
[2025-03-19] VITALS (11 sets, daily range): BP systolic 120–161; BP diastolic 62–101; PULSE 83–99; RESP 18–24; TEMP 36.6–36.8; O2SAT 92–99; BMI 46.7; BMI 46.0
--- NOTE | 2025-03-19 20:15 | RAD_ITS ---
PROCEDURE: CHEST 1 VIEW (PORTABLE) 03/19/2025 REASON FOR EXAM: DYSPNEA TECHNIQUE: Frontal view of the chest. COMPARISON: None FINDINGS: Cardiomediastinal silhouette is within normal limits. Possible small left pleural effusion. Lungs are otherwise clear. No sizable pneumothorax. Age-indeterminate impaction fracture of the left humeral neck. RAD/Chest 1 View (Portable) IMPRESSION: 1. Possible small left pleural effusion. 2. Age-indeterminate fracture of the left humeral neck. Please correlate. Reading Location: [facility]
--- NOTE | 2025-03-19 20:15 | EDS_ITS ---
HPI History of Present Illness Chief Complaint: Shortness of Breath Detail of Chief Complaint: Shortness of breath Informant: patient, spouse/S.O. and family Narrative Narrative: Patient presents with worsening shortness of breath x 2 weeks. She called her primary care physician last week who told her to increase her Lasix to 40 mg twice a day and also increase her potassium and then she had some blood work done 4 days ago. Today she called her PCP again that she really did not feel much improvement and was told to double her Lasix again for the next 4 days. Patient complains of exertional dyspnea. She has no significant cough or fever. She had some chest discomfort 4 days ago but none since. She has history of COPD and normally wears 4 L of home O2. She denies recent travel or surgery. She is currently on Eliquis for history of A-fib. She has not been diagnosed with CHF yet but she does describe leg edema and weight gain in the last 10 months of about 30 pounds [facility] Medical History Atrial fibrillation Hypertension Abnormal stress test Atrial fibrillation with rapid ventricular response Tachycardia Asthma Chronic airway obstruction Motion sickness Osteopenia Sleep apnea GERD (gastroesophageal reflux disease) Morbid obesity Anxiety Fatigue Smoker Depression Migraines Acute respiratory failure with hypoxia COPD exacerbation Acute sinusitis Cellulitis of left forearm Cellulitis and abscess of face Urinary tract infection Septic olecranon bursitis of right elbow Olecranon bursitis of right elbow Bursitis Sebaceous cyst of axilla Back pain Bronchitis URI (upper respiratory infection) Knee pain Hemorrhoids SOB (shortness of breath) Lung disease Arthritis Home Medications ?Medication ?Instructions ?Recorded ?Last Taken ?Type montelukast 10 mg tablet 10 mg PO QHS allergies 09/07 Unknown History fluticasone fur. 200 mcg-umeclid 1 inh inhalation BATSHEVA Y SOB 07/08/23 07/08/23 History 62.5 mcg-vilant 25 mcg inhalat.powder (Trelegy Ellipta) rimegepant 75 mg disintegrating 75 mg PO DAILY PRN olesya tamika 07/08/23 Unknown History tablet (Nurtec ODT) albuterol sulfate 90 mcg/actuation 2 puff inhalation Q 4H PRN 02/13/24 Unknown History aerosol inhaler Shortness Of Breath diltiazem HCl 240 mg capsule,24 240 mg PO QDAY 4 04/09/24 History hr,extended release (Tiadylt ER) potassium chloride 20 mEq 20 meq PO DAILY #90 tabs 11/18 Unknown Rx tablet,extended release duloxetine 60 mg capsule,delayed 60 mg PO QDAY 4 Unknown History release modafinil 100 mg tablet 100 mg PO QDAY PRN narcoleps y 10/01/24 Unknown History metoprolol tartrate 50 mg tablet 50 mg PO BID #180 tab s 10/09/24 Unknown Rx apixaban 5 mg tablet (Eliquis) 5 mg PO BID #60 tabs Unknown Rx fluticasone propionate 50 2 spray intranasal DAILY Unknown History mcg/actuation nasal spray,suspension (24 Hour Allergy Relief) furosemide 40 mg tablet 40 mg PO Q12H 03/19/25 Unkno wn History Allergy/AdvReac Type Severity Reaction Status Date / Time feathers Allergy Intermediate Shortness Verified 03/19/25 20:02 of breath house dust Allergy Unknown Verified 03/19/25 20:02 mold Allergy Unknown Verified 03/19/25 20:02 Family History Mother CAD (coronary artery disease) Diabetes C. difficile colitis Father CAD (coronary artery disease) Sister CAD (coronary artery disease) Brother , 62 Colon cancer Son , 45 Drug overdose Other Atrial fibrillation CHF (congestive heart failure) Cancer Heart disease Surgical History Hx of cardiac catheterization (~04/09/24) H/O left cataract extraction H/O right heart catheterization (~07/19/22) Hx of removal of ovary (~1994) History of appendectomy (~1994) Social History Smoking Status: Former smoker alcohol intake: current alcohol intake frequency: holidays/special occasions only substance use type: does not use caffeine: Yes Type: coffee Number of servings: 2 ROS ROS ED Review of Systems ROS Unobtainable: other Constitutional Constitutional ED: Reports lethargy; Denies chills, fever(s), sweats or weight loss Eyes Eyes: Denies blurry vision, change in vision or diplopia ENT ENT ED: Denies rhinorrhea or sore throat Cardiovascular Cardiovascular: Reports chest pain; Denies orthopnea or racing heartbeat Respiratory/Chest Respiratory/Chest: Reports dyspnea and dyspnea on exertion; Denies cough, orthopnea or sputum Gastrointestinal Gastrointestinal: Denies abdominal pain, diarrhea, nausea or vomiting Genitourinary Genitourinary ED: Denies dysuria, hematuria or urinary frequency Musculoskeletal Musculoskeletal: Reports other Details: Bilateral leg edema ; Denies arthralgias, back pain, myalgias or neck pain Integumentary Denies abscess, Abrasions or rash Neurologic Neurologic: Denies headache(s) or weakness Psychiatric Psychiatric: Denies anxiety, depression or suicidal thoughts Endocrine Endocrinology: Denies polydipsia, polyphagia or polyuria Hematologic/Lymphatic Hematologic/Lymphatic: Denies easy bleeding, easy bruising or lymphadenopathy Allergic/Immunologic Allergic/Immunologic ED: Denies mouth swelling, tongue swelling or urticaria EXAM Physical Exam Const Vital Signs: 03/19/25 19:56 03/19/25 20:02 03/19/25 20:03 Temperature 98.2 F Temperature Source Oral Pulse Rate 99 Respiratory Rate 23 H Respiratory Effort Short of Breath Labored Respiratory Depth Deep Respiratory Pattern Tachypnea Blood Pressure 161/101 H Blood Pressure Mean 121 Pulse Ox 92 95 Oxygen Delivery Method Nasal Cannula Nasal Cannula Nasal Cannula Oxygen Flow Rate (L/min) 6 6 6 03/19/25 20:16 03/19/25 20:24 03/19/25 21:02 Temperature 98.2 F Temperature Source Oral Pulse Rate 87 83 Respiratory Rate 24 H 18 Respiratory Effort Respiratory Depth Respiratory Pattern Tachypnea Blood Pressure 124/62 H Blood Pressure Mean 82 Pulse Ox 96 96 Oxygen Delivery Method Nasal Cannula Nasal Cannula Oxygen Flow Rate (L/min) 4 4 03/19/25 21:36 Temperature Temperature Source Pulse Rate Respiratory Rate Respiratory Effort Respiratory Depth Respiratory Pattern Blood Pressure 131/89 H Blood Pressure Mean Pulse Ox Oxygen Delivery Method Oxygen Flow Rate (L/min) Positive well nourished and well developed General Appearance ED: well developed and NAD HEENT Reports TM's clear and moist mucous membranes normocephalic and atraumatic; Negative for trauma or tenderness Tympanic Membrane ED: Yes TM's clear Eyes PERRL and EOMs intact bilaterally General Eye ED: Negative for pale conjunctiva or scleral icterus Neck no lymphadenopathy, supple and no JVD General: Negative for tenderness Chest Wall inspection of chest normal and palpation of chest normal Chest: Negative for tenderness Resp No normal respiratory effort and No clear to auscultation bilaterally Resp Narrative: Patient with mild conversational dyspnea. Diminished breath sounds bilaterally with faint expiratory wheezes noted. Few Rales in the bases. No accessory muscle use or retractions. Patient's O2 sat on 4 L when she arrived was 84%. Effort and Inspection: Negative for respiratory distress or pain with movement Auscultation: wheezes; Negative for rhonchi or diminished lung sounds Cardio regular rate, regular rhythm, S1 normal heart sound, S2 normal heart sound and no murmurs Peripheral Pulses: pulses 2+ throughout GI normal to inspection, nondistended, normoactive bowel sounds, soft to palpation, non-tender, non-distended and no masses Back/Spine no CVA tenderness and no thoracic nor lumbar tenderness Extremity Extremity Narrative: +2 edema both lower extremities General Extremety ED: Negative for edema General Extremity: Negative for edema Neuro oriented x3, CN's II-XII intact bilaterally, no sensory deficits noted and gait normal Sensorium / Orientation: awake, alert, oriented to person, oriented to place and oriented to time Motor Exam: strength 5/5 throughout and strength abnormal Psych mental status grossly normal Skin no rashes or lesions noted and no wounds MDM MDM MDM Narrative Medical decision making narrative: Patient presents with increased dyspnea over the last 2 weeks. In the differential would be COPD exacerbation versus CHF or infectious etiology without I think is less likely. PE would be in the differential however patient already anticoagulated and feel this is low probability. IV line established. She was given DuoNeb aerosol and started on Solu-Medrol. CBC with differential white count of 13.7 with hemoglobin 11.7 and platelet count of 373. 1 view chest x-ray showed small left pleural effusion and radiology thought there was a left humeral neck fracture indeterminate age. Patient has not had any recent trauma. In the last year she did sustain a fall and fracture of that arm. BMP obtained showed sodium 133 with potassium of 4.3 and chloride of 86. BUN 13 and creatinine 0.8. Troponin slightly elevated 19 and BT [employer] was elevated at thousand 3. Chest x-ray obtained showed a small left pleural effusion and some pulmonary congestion. Patient was started on Lasix 80 mg IV and given an inch Nitropaste to the anterior chest wall. She was given DuoNeb aerosol on arrival as well as a dose of Solu-Medrol 125 mg IV. Will discuss case with hospitalist to evaluate patient for admission for dyspnea with hypoxemia. Suspect CHF and a component of COPD as etiology. Patient also currently in A-fib and has lost the atrial kick which could lead to increased pulmonary congestion. Lab Data Attestation: I reviewed the patient's lab results. Labs: Laboratory Results - last 24 hr 03/19/25 20:03 WBC 13.7 H RBC 4.09 L Hgb 11.7 L Hct 39.1 MCV 95.6 MCH 28.6 MCHC 29.9 L RDW Std Deviation 47.8 H RDW Coeff of Beena 13.5 Plt Count 373 MPV 10.0 Immature Gran % (Auto) 0.400 Neut % (Auto) 73.9 H Lymph % (Auto) 13.9 L Elliott % (Auto) 9.2 Eos % (Auto) 2.2 Baso % (Auto) 0.4 Absolute Neuts (auto) 10.2 H Absolute Lymphs (auto) 1.91 Nucleated RBC % 0 Sodium 133 Potassium 4.3 Chloride 86 L Carbon Dioxide 38.3 H Anion Gap 9 BUN 13 Creatinine 0.80 Estim Creat Clear Calc 77.85 Est GFR (MDRD) Non-Af 79 BUN/Creatinine Ratio 16.7 Glucose 232 H Calcium 9.2 Troponin T High Sens 19 H NT pro BNP II 1003 H Radiography Diagnostic Testing: Clinical Impression(s) from Imaging Studies Chest X-Ray 03/19/25 20:15 IMPRESSION: 1. Possible small left pleural effusion. 2. Age-indeterminate fracture of the left humeral neck. Please correlate. Reading Location: [facility] 1 view chest x-ray obtained interpreted by myself as slight pulmonary congestion with small left pleural effusion. No infiltrate or pneumothorax noted. Radiology in agreement and they noted age-indeterminate fracture of left humeral neck EKG Initial EKG: Attestation: I personally reviewed and interpreted this EKG as follows: Comments: Atrial fibrillation with ventricular rate of 81 bpm with no acute ST segment change Discharge Plan Triage Chief Complaint: Shortness of Breath ED Provider: Juan F Curran Dx/Rx/DC Orders Clinical Impression: Acute dyspnea, Atrial fibrillation, CHF (congestive heart failure), COPD exacerbation Prescriptions: No Action diltiazem HCl [Tiadylt ER] 240 mg capsule,extended release 24 hr 240 mg PO QDAY furosemide 40 mg tablet 40 mg PO QAM Qty: 90 3RF potassium chloride 20 mEq tablet extended release 20 meq PO DAILY Qty: 90 3RF duloxetine 60 mg capsule,delayed release(DR/EC) 60 mg PO QDAY modafinil 100 mg tablet 100 mg PO QDAY PRN (Reason: narcolepsy) montelukast 10 MG tablet 10 mg PO QHS albuterol sulfate 90 mcg/actuation HFA aerosol inhaler 2 puff Inhalation Q4H PRN (Reason: Shortness Of Breath) Nurtec ODT 75 mg tablet,disintegrating 75 mg PO DAILY PRN (Reason: migraine) Patient Comments: TAKE 1 (ONE) TABLET BY MOUTH DAILY IF NEEDED FOR MIGRAINE Trelegy Ellipta 200-62.5-25 mcg blister with device 1 inh inhalation DAILY metoprolol tartrate 50 mg tablet 50 mg PO BID Qty: 180 3RF Eliquis 5 mg tablet 5 mg PO BID Qty: 60 11RF Primary Care Provider: Genia Carcamo Referrals: Christy Perea MD [Med Staff - Clinical Phlebotomist] - Print Language: Serbian Disposition Disposition: Acute Care Hospital [facility]
[2025-03-19] MEDS: Ipratropium/Albuterol Sulfate 3 ML AMPUL.NEB INHALATION (20:24)
[2025-03-19] MEDS: Albuterol 2.5 MG/3 ML VIAL.NEB. INHALATION (20:24)
[2025-03-19 20:25] LABS: Absolute Lymphocyte Count 1.91 X10^3/uL (0.83-4.51); Absolute Neutrophil Count 10.2 X10^3/uL (2.0-7.7); Basophil# 0.05 X10^3/uL; Basophil% 0.4 % (0-1); Eosinophils% 2.2 % (0-5); Hematocrit 39.1 % (37-47); Hemoglobin 11.7 g/dL (12.0-15.0); Lymphocyte # 1.91 X10^3/ul (0.83-4.51); Lymphocyte % 13.9 % (19-41); Mean Corp Hgb Conc 29.9 g/dL (32-36); Mean Corpuscular Hgb 28.6 pg (27.0-32.0); Mean Corpuscular Volume 95.6 fL (81-99); Monocyte# 1.26 X10^3/uL; Monocyte% 9.2 % (0-10); NRBC Flagged by Analyzer 0 % (0-5); Neutrophil # 10.16 X10^3/uL (2.7-7.7); Neutrophil % 73.9 % (47-70); Platelet Count 373 K/mm3 (150-450); RBC Distribution Width CV 13.5 % (11.6-14.6); RBC Distribution Width SD 47.8 fl (35.1-43.9); Red Blood Count 4.09 M/mm3 (4.2-5.4); White Blood Count 13.7 K/mm3 (4.4-11.0)
[2025-03-19] MEDS: MethylPREDNISolone 125 MG/2 ML Vial IV (20:45)
[2025-03-19 21:11] LABS: Anion Gap 9 (5-15); BUN 13 mg/dL (4-19); BUN/Creat Ratio 16.7 RATIO (10-20); Calcium,Total 9.2 mg/dL (7.6-11.0); Carbon Dioxide 38.3 mmol/L (21.0-32.0); Chloride 86 mmol/L (98-108); EST Glomerular Filtration Rate 79 (>60); Estimated Creatinine Clearance 77.85 ml/min (50-250); Glucose 232 mg/dL (70-99); Potassium 4.3 mmol/L (3.3-5.1); Pro- Brain NATRIURETIC PEPTIDE 1003 pg/mL (<=900); Sodium Level 133 mmol/L (133-145); Troponin T High Sensitivity 19 ng/L (<=14)
[2025-03-19] MEDS: Furosemide 100 MG/10 ML Vial 80 MG IV (21:36)
[2025-03-19] MEDS: Nitroglycerin Oint 1 INCH PACKET TD (21:36)
--- NOTE | 2025-03-19 21:38 | PCM.HP.STD ---
[facility] - [facility] General Date of Admission: 03/19/25 Date of Service: 03/19/25 Chief Complaint: SOB, Wheezing and LE Edema. [facility] Narrative PIPER OLIVER, is a 69 F with a past medical history of essential hypertension; on metoprolol and furosemide, history of hyperlipidemia; currently not on treatment, morbid obesity; with BMI of 46.8 this admission, WINIFRED, chronic atrial fibrillation; on diltiazem and apixaban, CAD, history of tobacco abuse; with subsequent asthma/COPD; on 4L NC at baseline on Trelegy Ellipta and as needed albuterol, narcolepsy; on modafinil, seasonal allergies; on montelukast, migraine headaches; on Nurtec ODT daily, depression; on duloxetine, history of cellulitis, history of septic olecranon bursitis of the Right elbow, history of hemorrhoids, history of appendectomy (~1994), history of Right heart catheterization (~2021) history of removal of ovary (~1994), history of GERD; currently not on treatment, osteopenia and OA; with chronic back pain on acetaminophen twice daily who presents to [facility] ER complaining of shortness of breath, wheezing and lower extremity edema. Ms. Oliver reports her symptoms began ~2 weeks prior to admission with a gradual-onset of progressively worsening dyspnea on exertion that progressed to shortness of breath at rest. She initially contacted her PCP last week who instructed her to increase her Lasix to 40 mg twice daily and to increase her potassium with blood work done 4 days ago. Unfortunately, she did not experience much improvement and she was told to increase her Lasix again for the next 4 days with continued dyspnea. She states she has not been previously diagnosed with CHF but she does describe increasing lower extremity edema with a weight gain of about ~30 pounds over the past ~10 months. She admits to lethargy, increasing sensation of chest pressure along with back pain and lower extremity edema. She denies associated fever, chills, runny nose, sore throat, abdominal pain, nausea, vomiting, diarrhea, constipation, dysuria, hematuria, urinary frequency, headache or rash. In the ER she was noted to have clinical evidence of AE COPD complicated by an elevated NT pro-BNP II of 1,003 pg/mL present on admission with a corresponding CXR that revealed possible small left pleural effusion and age-indeterminate fracture of the Left humeral neck with clinical correlation recommended compounded by mildly elevated troponin T of 19 ng/L suspected to be due to acute cardiac strain with all of these issues culminating to cause acute-on chronic respiratory insufficiency. She was then admitted to the PCU for ongoing care for a stay that is expected to extend beyond 2 midnights. [facility] Medical History Atrial fibrillation Hypertension Abnormal stress test Atrial fibrillation with rapid ventricular response Tachycardia Asthma Chronic airway obstruction Motion sickness Osteopenia Sleep apnea GERD (gastroesophageal reflux disease) Morbid obesity Anxiety Fatigue Smoker Depression Migraines Acute respiratory failure with hypoxia COPD exacerbation Acute sinusitis Cellulitis of left forearm Cellulitis and abscess of face Urinary tract infection Septic olecranon bursitis of right elbow Olecranon bursitis of right elbow Bursitis Sebaceous cyst of axilla Back pain Bronchitis URI (upper respiratory infection) Knee pain Hemorrhoids SOB (shortness of breath) Lung disease Arthritis Home Medications ?Medication ?Instructions ?Recorded ?Last Taken ?Type montelukast 10 mg tablet 10 mg PO QHS allergies 09/07/18 Unknown History fluticasone fur. 200 mcg-umeclid 1 inh inhalation DAILY SOB 07/08/23 07/08/23 History 62.5 mcg-vilant 25 mcg inhalat.powder (Trelegy Ellipta) rimegepant 75 mg disintegrating 75 mg PO DAILY PRN migraine 07/08/23 Unknown History tablet (Nurtec ODT) albuterol sulfate 90 mcg/actuation 2 puff inhalation Q4H PRN 02/13/24 Unknown History aerosol inhaler Shortness Of Breath diltiazem HCl 240 mg capsule,24 240 mg PO QDAY 02/19/24 04/09/24 History hr,extended release (Tiadylt ER) potassium chloride 20 mEq 20 meq PO DAILY #90 tabs 05/07/24 Unknown Rx tablet,extended release duloxetine 60 mg capsule,delayed 60 mg PO QDAY 09/30/24 Unknown History release modafinil 100 mg tablet 100 mg PO QDAY PRN narcolepsy 10/01/24 Unknown History metoprolol tartrate 50 mg tablet 50 mg PO BID #180 tabs 10/09/24 Unknown Rx apixaban 5 mg tablet (Eliquis) 5 mg PO BID #60 tabs 02/16/25 Unknown Rx fluticasone propionate 50 2 spray intranasal DAILY 03/19/25 Unknown History mcg/actuation nasal spray,suspension (24 Hour Allergy Relief) furosemide 40 mg tablet 40 mg PO Q12H 03/19/25 Unknown History Allergy/AdvReac Type Severity Reaction Status Date / Time feathers Allergy Intermediate Shortness Verified 03/19/25 20:02 of breath house dust Allergy Unknown Verified 03/19/25 20:02 mold Allergy Unknown Verified 03/19/25 20:02 Family History Mother CAD (coronary artery disease) Diabetes C. difficile colitis Father CAD (coronary artery disease) Sister CAD (coronary artery disease) Brother , 62 Colon cancer Son , 45 Drug overdose Other Atrial fibrillation CHF (congestive heart failure) Cancer Heart disease Surgical History Hx of cardiac catheterization (~04/09/24) H/O left cataract extraction H/O right heart catheterization (~07/19/22) Hx of removal of ovary (~1994) History of appendectomy (~1994) Social History Smoking Status: Former smoker alcohol intake: current alcohol intake frequency: holidays/special occasions only substance use type: does not use caffeine: Yes Type: coffee Number of servings: 2 ROS ROS Narrative Review of Systems: Constitutional: Patient admits to lethargy and weight gain as per HPI. She denies fevers, chills or sweats. Eyes: Patient denies changes in vision or discharge from eyes. ENT: Patient denies runny nose, sore throat or ear pain. Resp: Patient admits to shortness of breath and wheezing. She denies cough. CV: Patient admits to pressure sensation in her chest made worse with deep breathing but she denies heart racing or palpitations. GI: Patient denies abdominal pain, nausea, vomiting, diarrhea or constipation. : Patient denies dysuria, hematuria urinary frequency. MSK: Patient admits to generalized weakness and back pain as per HPI. Skin: Patient denies rash, abscess, wounds or jaundice. Psych: Patient denies symptoms of uncontrolled depression or anxiety. Neuro: Patient denies headache, paresthesias or focal neurologic deficits. Allergy: Patient denies lip swelling, tongue swelling or urticaria. Hematology: Patient admits to easy bleeding and bruisability on apixaban. Endocrinology: Patient denies polyuria, polydipsia, polyphagia or heat/cold intolerance. 14 point ROS otherwise negative except for positives noted above in HPI. Vital Signs Vital Signs Vital Signs: 03/19/25 19:56 03/19/25 20:02 03/19/25 20:03 Temperature 98.2 F Temperature Source Oral Pulse Rate 99 Respiratory Rate 23 H Respiratory Effort Short of Breath Labored Respiratory Depth Deep Respiratory Pattern Tachypnea Blood Pressure 161/101 H Blood Pressure Mean 121 Pulse Ox 92 95 Oxygen Delivery Method Nasal Cannula Nasal Cannula Nasal Cannula Oxygen Flow Rate (L/min) 6 6 6 03/19/25 20:16 03/19/25 20:24 03/19/25 21:02 Temperature 98.2 F Temperature Source Oral Pulse Rate 87 83 Respiratory Rate 24 H 18 Respiratory Effort Respiratory Depth Respiratory Pattern Tachypnea Blood Pressure 124/62 H Blood Pressure Mean 82 Pulse Ox 96 96 Oxygen Delivery Method Nasal Cannula Nasal Cannula Oxygen Flow Rate (L/min) 4 4 03/19/25 21:36 Temperature Temperature Source Pulse Rate Respiratory Rate Respiratory Effort Respiratory Depth Respiratory Pattern Blood Pressure 131/89 H Blood Pressure Mean Pulse Ox Oxygen Delivery Method Oxygen Flow Rate (L/min) Weight Weight: 255 lb 11.779 oz Body Mass Index (BMI) 46.7 Physical Exam Const alert and oriented x3 Constitutional Narrative: Mild distress noted and morbidly obese patient. General Appearance: cooperative HEENT normocephalic, head/scalp atraumatic, hearing grossly normal bilaterally and moist oral mucous membranes Eyes PERRL, EOMs intact bilaterally and conjunctivae normal Neck no lymphadenopathy, supple and no JVD Resp Resp Narrative: Diminished breath sounds throughout with faint expiratory wheezes bilaterally and conversational dyspnea noted. No accessory muscle use or retractions. Cardio Cardio Narrative: Irregularly irregular at ~80 bpm. GI normal to inspection, nondistended, normoactive bowel sounds, soft to palpation, non-tender and non-distended GI Narrative: Morbidly obese. Extremity Extremity Narrative: ~2+ bilateral lower extremity pitting edema. Skin Skin Narrative: Patient has no evidence of rash, abscess, wounds or jaundice. Neuro oriented x3, CN's II-XII intact bilaterally, moves all extremities and no focal motor deficits Sensorium / Orientation: awake, alert, oriented to person, oriented to place and oriented to time Speech: speech normal Psych affect normal Results Medical Records Data Attestation: I reviewed the patient's medical records Lab / Micro Data Attestation: I reviewed the patient's lab results. 03/19/25 20:03 03/19/25 20:03 Labs: Laboratory Results - last 24 hr 03/19/25 20:03: WBC 13.7 H, RBC 4.09 L, Hgb 11.7 L, Hct 39.1, MCV 95.6, MCH 28.6, MCHC 29.9 L, RDW Std Deviation 47.8 H, RDW Coeff of Beena 13.5, Plt Count 373, MPV 10.0, Immature Gran % (Auto) 0.400, Neut % (Auto) 73.9 H, Lymph % (Auto) 13.9 L, Kidder % (Auto) 9.2, Eos % (Auto) 2.2, Baso % (Auto) 0.4, Absolute Neuts (auto) 10.2 H, Absolute Lymphs (auto) 1.91, Nucleated RBC % 0, Sodium 133, Potassium 4.3, Chloride 86 L, Carbon Dioxide 38.3 H, Anion Gap 9, BUN 13, Creatinine 0.80, Estim Creat Clear Calc 77.85, Est GFR (MDRD) Non-Af 79, BUN/Creatinine Ratio 16.7, Glucose 232 H, Calcium 9.2, Troponin T High Sens 19 H, NT pro BNP II 1003 H Imaging Radiology Impression Chest X-Ray 03/19/25 20:15 IMPRESSION: 1. Possible small left pleural effusion. 2. Age-indeterminate fracture of the left humeral neck. Please correlate. Reading Location: [facility] Assessment & Plan Assessment/Plan (1) COPD exacerbation: (2) CHF (congestive heart failure): QUALIFIERS: Heart failure type: unspecified Heart failure chronicity: acute Qualified Code(s): I50.9 - Heart failure, unspecified (3) Edema of both legs: (4) Elevated troponin: (5) Coronary artery disease: QUALIFIERS: Coronary Disease-Associated Artery/Lesion type: unspecified vessel or lesion type [place] vs. transplanted heart: crow heart Associated angina: without angina Qualified Code(s): I25.10 - Atherosclerotic heart disease of crow coronary artery without angina pectoris (6) Respiratory insufficiency: (7) Morbid obesity with BMI of 45.0-49.9, adult: (8) Atrial fibrillation: QUALIFIERS: Atrial fibrillation type: unspecified chronic Qualified Code(s): I48.20 - Chronic atrial fibrillation, unspecified (9) Chronic anticoagulation: PLAN: Plan 1. AE COPD - Admit to PCU. Continue Solu-Medrol IV begun in the ER plus scheduled and as needed nebulizers. Give acetaminophen as needed pain or fever. 2. Elevated NT pro-BNP II of 1,003 pg/mL present on admission with ~30 pound weight gain in ~2+ bilateral lower extremity edema consistent with suspected AE CHF complicating #1 - Maintain IV furosemide began in ER daily. Check NT pro-BNP II daily to follow trend. Check echocardiogram to evaluate LVEF. 3. Mildly elevated troponin T of 19 ng/L suspected to be due to acute cardiac strain due to #1 & #2 in the setting of previously noted CAD - Serialize troponin to follow trend. 4. Kieav-vq-Wdklniv Respiratory Insufficiency attributable to #1 - #3 - Wean additional supplemental oxygen as tolerated. 5. Morbid Obesity; with BMI of 46.8 this admission plus WINIFRED adding to the burden of disease outlined from #1 - #4 - Weight loss will be recommended. Continue nocturnal CPAP as previous. Check TSH. This complicates her case and may hamper recovery. 6. Chronic atrial fibrillation; on diltiazem and apixaban adding to the medical complexity outlined from #1 - #5 - Maintain current regimen. 7. Essential hypertension; on metoprolol and furosemide - Maintain home regimen except furosemide will be switched to IV in light of #2. 8. History of hyperlipidemia; currently not on treatment - Check lipid profile this admission to confirm status. 9. Narcolepsy; on modafinil - Resume modafinil as before. 10. Seasonal allergies; on montelukast - Maintain current treatment. 11. Migraine headaches; on Nurtec ODT daily - Hold this agent while inpatient as there is a contraindication with coadministration with modafinil. 12. Depression; on duloxetine - Stable. Continue duloxetine as previous. 13. History of cellulitis and septic olecranon bursitis of the Right elbow - Noted no evidence of recurrence at this time. 14. History of hemorrhoids - Stable. 15. History of appendectomy (~1994) - Noted. 16. History of Right heart catheterization (~2021) - Noted. 17. History of removal of ovary (~1994) - Noted for the sake of completeness. 18. History of GERD; currently not on treatment - Start PPI in light of steroids used to treat #1. 19. Osteopenia - Stable. 20. OA; with chronic back pain on acetaminophen twice daily - Give acetaminophen prn for pain or fever. 21. DVT prophylaxis - Patient is already on apixaban for #6 which will be continued. Total time: Approximately (but not less than) 75 minutes. Charges/Coding Visit Charges Inpatient E&M: 39672 Init Hosp L3
--- NOTE | 2025-03-19 22:40 | ECHOCS_ITS ---
Reason For Study Reason For Study: CHF Procedure This was a 2D Doppler, Color Flow transthoracic echocardiogram. The study was technically difficult. Exam performed portable in patient room. Left Ventricle Normal size and thickness. The LV systolic function is normal. EF is 65 %. Unable to assess diastolic dysfunction due to arrhythmia. Right Ventricle Normal right ventricle. Atria The left and right atria are normal. Mitral Valve There is Mild focal posterior mitral annular calcification. Tricuspid Valve Trivial tricuspid valve insufficiency. Right ventricular systolic pressure estimated to be 50 mmHg. Aortic Valve There is no aortic stenosis. No aortic valve insufficiency. Pulmonic Valve The pulmonic valve is not well visualized. Great Vessels Normal sized aortic root. Pericardium/Pleural Small (<1.0 cm) pericardial effusion. Medication Diluted definity 2ml given slow IV push to enhance endocardial definition. MMode/2D Measurements & Calculations LVIDd: 4.5 cm IVSd: 0.85 cm Ao root diam: 3.2 cm LVIDs: 2.9 cm LVPWd: 1.0 cm RVDd: 3.1 cm FS: 34.9 % LAV(MOD-bp): 31.0 ml LVAd ap4: 27.5 cm2 SV(MOD-sp4): 57.9 ml LAV(MOD-bp) Indexed: 14.7 ml/m2 LVLd ap4: 7.3 cm SI(MOD-sp4): 27.5 ml/m2 LAV(MOD-sp2): 29.6 ml EDV(MOD-sp4): 86.2 ml LAV(MOD-sp4): 32.2 ml EDV(sp4-el): 88.7 ml LVAs ap4: 14.5 cm2 LVLs ap4: 6.0 cm ESV(MOD-sp4): 28.3 ml ESV(sp4-el): 29.6 ml EF(MOD-sp4): 67.2 % EF(sp4-el): 66.7 % SV(sp4-el): 59.1 ml LA A4 area: 14.2 cm2 LA dimension(2D): 3.3 cm RA A4 area: 13.8 cm2 TAPSE: 2.0 cm Doppler Measurements & Calculations MV E max lisa: 95.0 cm/sec Ao V2 max: 161.4 cm/sec LV V1 max: 135.0 cm/sec Ao max P.5 mmHg LV V1 max P.3 mmHg PA V2 max: 92.8 cm/sec TR max lisa: 297.5 cm/sec TR max P.4 mmHg ECHO/Echo Complete W/ Contrast Interpretation Summary The study was technically difficult. The LV systolic function is normal. EF is 65 %. There is Mild focal posterior mitral annular calcification. Right ventricular systolic pressure estimated to be 50 mmHg. Small (<1.0 cm) pericardial effusion. Ordering Physician: Morales Bolden Referring Physician: KYLE CHAPPELL Performed By: Katelyn Barakat RDCS
[2025-03-19] MEDS: APIXABAN 5 MG TABLET PO (23:17)
[2025-03-19] MEDS: Metoprolol Tartrate 50 MG Tablet PO (23:18)
[2025-03-19] MEDS: Montelukast 10 MG Tablet PO (23:18)
[2025-03-19] MEDS: 0.9% Saline Lock 10 ML Syringe IV (23:19)
[2025-03-19 23:58] LABS: Troponin T High Sens 2 HR 10 ng/L (<=14)
[2025-03-20] VITALS (11 sets, daily range): BP systolic 131–166; BP diastolic 63–88; PULSE 64–90; RESP 16–22; TEMP 36.6–36.8; O2SAT 93–97; BMI 46.0
[2025-03-20 00:03] LABS: Hemoglobin A1c 5.5 % (<=5.6)
[2025-03-20 00:21] LABS: FOLATES,SERUM (FOLIC ACID) 8.88 ng/mL (4.60-34.80)
[2025-03-20 01:08] LABS: Magnesium 1.7 mg/dL (1.5-2.2); Thyroid Stim Hormone (TSH) 0.905 uIU/mL (0.300-4.200); Vitamin B12 473 pg/mL (180-914)
[2025-03-20 06:32] LABS: Absolute Lymphocyte Count 0.47 X10^3/uL (0.83-4.51); Absolute Neutrophil Count 10.3 X10^3/uL (2.0-7.7); Basophil# 0.01 X10^3/uL; Basophil% 0.1 % (0-1); Hematocrit 36.2 % (37-47); Hemoglobin 10.9 g/dL (12.0-15.0); Lymphocyte # 0.47 X10^3/ul (0.83-4.51); Lymphocyte % 4.3 % (19-41); Mean Corp Hgb Conc 30.1 g/dL (32-36); Mean Corpuscular Hgb 28.8 pg (27.0-32.0); Mean Corpuscular Volume 95.8 fL (81-99); Mean Platelet Vol. 9.8 fl (6.2-12.0); Monocyte# 0.13 X10^3/uL; Monocyte% 1.2 % (0-10); NRBC Flagged by Analyzer 0 % (0-5); Neutrophil # 10.33 X10^3/uL (2.7-7.7); Neutrophil % 93.9 % (47-70); POSITIVE DIFFERENTIAL YES; Platelet Count 315 K/mm3 (150-450); RBC Distribution Width CV 13.5 % (11.6-14.6); Red Blood Count 3.78 M/mm3 (4.2-5.4)
[2025-03-20 07:37] LABS: AST(SGOT) 13 U/L (<=31); Alanine Aminotransfer ALT/SGPT 12 U/L (<=34); Albumin, Serum 3.5 g/dL (3.4-4.8); Alkaline Phosphatase 65 U/L (35-104); Anion Gap 8 (5-15); BUN 15 mg/dL (4-19); BUN/Creat Ratio 24.8 RATIO (10-20); Calcium,Total 9.1 mg/dL (7.6-11.0); Carbon Dioxide 41.8 mmol/L (21.0-32.0); Chloride 89 mmol/L (98-108); Cholesterol 150 mg/dL (<=200); Creatinine, Serum 0.59 mg/dL (0.70-1.20); EST Glomerular Filtration Rate 96 (>60); Estimated Creatinine Clearance 77.16 ml/min (50-250); Globulin 3.3 g/dL (2.2-4.2); Glucose 163 mg/dL (70-99); High Density Lipoprotein 58 mg/dL; Low Density Lipoprotein Calc. 82 mg/dL; Phosphorus 2.9 mg/dL (2.7-4.5); Potassium 4.6 mmol/L (3.3-5.1); Pro- Brain NATRIURETIC PEPTIDE 1547 pg/mL (<=900); Protein, Total 6.8 g/dL (5.9-8.4); Sodium Level 139 mmol/L (133-145); Total Bilirubin 0.28 mg/dL (0.00-1.30); Triglycerides 51 mg/dL; Very Low Density Lipoprotein 10 mg/dL (5-40); cholesterol:hdl ratio screen 2.58
[2025-03-20] MEDS: dilTIAZem CD 240 MG Capsule PO (09:50)
[2025-03-20] MEDS: Potassium Chloride Oral Tablet 20 MEQ PO (09:50)
[2025-03-20] MEDS: APIXABAN 5 MG TABLET PO ×2 (09:50→22:25)
[2025-03-20] MEDS: Pantoprazole Sodium 40 MG Tablet PO (09:51)
[2025-03-20] MEDS: MethylPREDNISolone 125 MG/2 ML Vial 60 MG IV ×2 (09:51→22:26)
[2025-03-20] MEDS: Metoprolol Tartrate 50 MG Tablet PO ×2 (09:51→22:25)
[2025-03-20] MEDS: DULoxetine Hcl 60 MG Capsule PO (09:51)
[2025-03-20] MEDS: Furosemide 40 MG/4 ML Vial IV (09:51)
[2025-03-20] MEDS: 0.9% Saline Lock 10 ML Syringe IV ×2 (09:52→22:30)
[2025-03-20] MEDS: Albuterol 2.5 MG/3 ML VIAL.NEB. INHALATION (11:05)
[2025-03-20] MEDS: Ipratropium/Albuterol Sulfate 3 ML AMPUL.NEB INHALATION ×2 (13:22→19:55)
--- NOTE | 2025-03-20 15:17 | CASEMGMT ---
LUIS CM NOTE: Pt notified [facility] is able to accept her w/SOC slated for Tues. DC plan updated. Green sheet placed on pt's chart for HHC and also if she qualifies for more than 4 L/M O2 when discharged. Ritchie ZAMORANO RN M
--- NOTE | 2025-03-20 15:21 | CASEMGMT ---
Addendum entered by Mark White 03/20/25 15:33: Pt states that she has a hx of smoking 1 PPD of cigarettes but quit x 12 years ago. Pt also states that she takes Eliquis at home and that it is affordable after her insurance. Original Note: LUIS NOLAND Assessment Face to Face with patient for initial transition planning/care coordination assessment. LUIS NOLAND introduced self and role at [facility], pt voices understanding. Pt is A&Ox4 and is resting comfortably in the chair and is calm. Pt SO at bedside. Care providers, pharmacy, and demographics verified. Admitting dx: AE COPD, AE CHF, Respiratory Insufficiency LACE Strata: 2 PCP: Genia Carcamo Specialists: Roc (Pulmonary), ARNOLDO Preferred Pharmacy: [facility] Prescription Benefit: Yes LNOK: [place] (H) Living Arrangements: Pt lives with her , adult daughter, and 10 y/o GS in a 2 story home with a basement with a FFSU and 2 steps to enter ADLs/IADLs: Pt states that she is mainly independent but that her helps with tasks such as laundry, cooking, and cleaning. Transportation: Pt states that she has the ability to drive but has not driven in some time. Pt drives and denies concerns DME: Home oxygen through [employer]. Verified pt's current order states 4L continuous. Pt has a CPAP, concentrator, portable tanks, and an [employer] POC. Pt has a pulse ox and nebulizer. Pt plans to bring in the pt's portability @ the time of DC. Pt also has a mobility scooter, rollator, shower chair, and grab bars. HHC/SNF: Denies history. Pt?s goal: Home Plan: Anticipate DC home with pt SO and family with [facility] once medically ready, follow for increased oxygen demands. At this time, the pt and the pt's report that they would like skilled HHC. Pt educated on homebound status and states that she understands. Pt declines wanting to review a list of local in-network HHC agencies and states that she prefers [facility]. TC to Mary @ [facility] and referral made for SN, PT, and OT. Mary states that they are able to accept for SOC on Sunday. Pt and pt's decline further needs at this time. Sal White RN, CM
--- NOTE | 2025-03-20 19:27 | PN.HOSP_ITS ---
Reason for Visit Reason for Visit: Diagnoses Chronic atrial fibrillation, unspecified (03/19/25) Subjective Subjective Patient was seen and examined today, echocardiogram today revealed a normal ejection fraction with moderate pulmonary hypertension. Patient is currently on 4 L of oxygen at rest which is her baseline oxygen setting at home. Objective Data Objective Data Vital Signs: Vital Signs Temp Pulse Resp BP Pulse Ox O2 Del Method O2 Flow Rate 98.3 F 64 22 H 166/84 H 93 Nasal Cannula 4 03/20/25 15:25 03/20/25 15:25 03/20/25 15:25 03/20/25 15:25 03/20/25 15:03/20/25 16:44 03/20/25 16:44 Oxygen Flow Rate (L/min) 4 Oxygen Delivery Method Nasal Cannula Weight: 114.3 kg Body Mass Index (BMI) 46.0 Intake & Output: Intake and Output for Last 24 Hours 03/18/25 03/19/25 03/20/25 23:59 23:59 23:59 Intake Total 1060 / 1060 Output Total 850 / 850 Balance 210 / 210 Lab / Micro Data 03/20/25 05:54 03/20/25 05:54 Labs: Laboratory Results - last 24 hr 03/19/25 20:03: WBC 13.7 H, RBC 4.09 L, Hgb 11.7 L, Hct 39.1, MCV 95.6, MCH 28.6, MCHC 29.9 L, RDW Std Deviation 47.8 H, RDW Coeff of Beena 13.5, Plt Count 373, MPV 10.0, Immature Gran % (Auto) 0.400, Neut % (Auto) 73.9 H, Lymph % (Auto) 13.9 L, Swain % (Auto) 9.2, Eos % (Auto) 2.2, Baso % (Auto) 0.4, Absolute Neuts (auto) 10.2 H, Absolute Lymphs (auto) 1.91, Nucleated RBC % 0, Sodium 133, Potassium 4.3, Chloride 86 L, Carbon Dioxide 38.3 H, Anion Gap 9, BUN 13, Creatinine 0.80, Estim Creat Clear Calc 77.85, Est GFR (MDRD) Non-Af 79, BUN/Creatinine Ratio 16.7, Glucose 232 H, Calcium 9.2, Troponin T High Sens 19 H , NT pro BNP II 1003 H 03/19/25 22:13: Magnesium 1.7, Vitamin B12 473, TSH 0.905 03/19/25 23:19: Hemoglobin A1c 5.5, Troponin T Hi Sens 2 Hr 10, Serum Folate 8.88 03/20/25 05:54: WBC 11.0, RBC 3.78 L, Hgb 10.9 L, Hct 36.2 L, MCV 95.8, MCH 28.8, MCHC 30.1 L, RDW Std Deviation 48.0 H, RDW Coeff of Beena 13.5, Plt Count 315, MPV 9.8, Immature Gran % (Auto) 0.500, Neut % (Auto) 93.9 H, Lymph % (Auto) 4.3 L, Swain % (Auto) 1.2, Eos % (Auto) 0.0, Baso % (Auto) 0.1, Absolute Neuts (auto) 10.3 H, Absolute Lymphs (auto) 0.47 L, Nucleated RBC % 0, Sodium 139, Potassium 4.6, Chloride 89 L, Carbon Dioxide 41.8 H, Anion Gap 8, BUN 15, C reatinine 0.59 L, Estim Creat Clear Calc 77.16, Est GFR (MDRD) Non-Af 96, B UN/Creatinine Ratio 24.8 H, Glucose 163 H, Calcium 9.1, Phosphorus 2.9 03/20/25 05:54: Phosphorus Cancelled, Total Bilirubin 0.28, AST 13, ALT 12, Alkaline Phosphatase 65, NT pro BNP II 1547 H, Total Protein 6.8, Albumin 3.5, Globulin 3.3, Albumin/Globulin Ratio 1.0, Triglycerides 51, Cholesterol 150, LDL Cholesterol, Calc 82, VLDL Cholesterol 10, HDL Cholesterol 58, Cholesterol/HDL Ratio 2.58 Radiography Diagnostic Testing: Radiology Impression Chest X-Ray 03/19/25 20:15 IMPRESSION: 1. Possible small left pleural effusion. 2. Age-indeterminate fracture of the left humeral neck. Please correlate. [facility] 03/19/25 22:40 Interpretation Summary The study was technically difficult. The LV systolic function is normal. EF is 65 %. There is Mild focal posterior mitral annular calcification. Right ventricular systolic pressure estimated to be 50 mmHg. Small (<1.0 cm) pericardial effusion. Ordering Physician: Morales Bolden Referring Physician: KYLE CHAPPELL Performed By: Katelyn Barakat RDCS Physical Exam Const alert, oriented x3, no apparent distress and healthy appearing Constitutional Narrative: Patient has class III obesity General Appearance: cooperative, well kempt and well developed Orientation / Consciousness: awake, oriented to person, oriented to place and oriented to time HEENT normocephalic, head/scalp atraumatic and moist oral mucous membranes Eyes PERRL, EOMs intact bilaterally and conjunctivae normal Neck supple, no JVD, thyroid normal and no carotid bruits General: trachea midline Resp normal respiratory effort, no retractions and no use of accessory muscles Resp Narrative: Patient has bilateral expiratory wheezes which are high-pitched bilaterally Auscultation: wheezes expiratory wheezes; Negative for rales or rhonchi Cardio regular rate, regular rhythm, S1 normal heart sound, S2 normal heart sound, no murmurs, no rub and no gallops GI normal to inspection, nondistended, normoactive bowel sounds, soft to palpation, non-tender and non-distended Extremity no clubbing, cyanosis or edema Skin no rashes or lesions noted General Skin Exam: no breakdown Neuro oriented x3, CN's II-XII intact bilaterally, moves all extremities, no focal motor deficits and no sensory deficits noted Sensorium / Orientation: awake and alert Speech: speech normal Psych affect normal Assessment & Plan Assessment/Plan (1) COPD exacerbation: PLAN: Plan 1. Exacerbation of COPD-patient will remain on IV corticosteroids, aerosol treatments, I will add oral Zithromax to her regimen #2 chronic hypoxic respiratory failure-oxygen will be weaned if possible, patient is currently on 4 L at rest #3 acute congestive heart failure with preserved ejection fraction-patient will remain on IV Lasix at this time, I will change her Lasix to 20 mg IV twice daily. #4 Chronic atrial fibrillation-patient is on chronic anticoagulation and rate control medication Total clinical time spent by myself addressing patient's medical issues, reviewing all of her data, and collaborating with patient's care team: 35 minutes Charges/Coding Visit Charges Inpatient E&M: 43922 Subs Hosp L2
[2025-03-20] MEDS: Azithromycin 250 MG Tablet 500 MG PO (20:15)
[2025-03-20] MEDS: Fluticasone 0.05% 1 SPRAY NASAL.SRY 2 SPRAY NASAL (22:23)
[2025-03-20] MEDS: Montelukast 10 MG Tablet PO (22:26)
[2025-03-21] VITALS (11 sets, daily range): BP systolic 125–151; BP diastolic 64–96; PULSE 65–91; RESP 17–25; TEMP 36.4–36.9; O2SAT 93–98; BMI 46.2
[2025-03-21 06:21] LABS: Phosphorus 2.8 mg/dL (2.7-4.5)
[2025-03-21] MEDS: Ipratropium/Albuterol Sulfate 3 ML AMPUL.NEB INHALATION ×3 (07:25→20:03)
[2025-03-21] MEDS: Pantoprazole Sodium 40 MG Tablet PO (08:45)
[2025-03-21] MEDS: dilTIAZem CD 240 MG Capsule PO (08:45)
[2025-03-21] MEDS: DULoxetine Hcl 60 MG Capsule PO (08:45)
[2025-03-21] MEDS: APIXABAN 5 MG TABLET PO ×2 (08:46→21:18)
[2025-03-21] MEDS: Metoprolol Tartrate 50 MG Tablet PO ×2 (08:46→21:18)
[2025-03-21] MEDS: MethylPREDNISolone 125 MG/2 ML Vial 60 MG IV ×2 (08:47→21:20)
[2025-03-21] MEDS: Potassium Chloride Oral Tablet 20 MEQ PO ×2 (08:47→18:26)
[2025-03-21] MEDS: Furosemide 20 MG/2 ML VIAL IV ×2 (08:55→18:26)
[2025-03-21] MEDS: 0.9% Saline Lock 10 ML Syringe IV ×3 (08:55→21:20)
[2025-03-21] MEDS: Azithromycin 250 MG Tablet 500 MG PO (08:55)
--- NOTE | 2025-03-21 12:00 | PCM.PN.HOSP ---
Reason for Visit Reason for Visit: Diagnoses Chronic atrial fibrillation, unspecified (03/19/25) Chronic obstructive pulmonary disease with (acute) exacerbation (03/19/25) Subjective Subjective Patient was seen and examined today, she is requiring 8 L of oxygen on ambulation, she is on 4 L of oxygen at rest. Objective Data Objective Data Vital Signs: Vital Signs Temp Pulse Resp BP Pulse Ox O2 Del Method O2 Flow Rate 98.3 F 73 18 125/64 H 98 Nasal Cannula 4 03/21/25 08:37 03/21/25 08:46 03/21/25 08:37 03/21/25 08:37 03/21/25 08:37 03/21/25 09:03 03/21/25 09:03 Oxygen Flow Rate (L/min) 4 Oxygen Delivery Method Nasal Cannula Weight: 114.6 kg Body Mass Index (BMI) 46.2 Intake & Output: Intake and Output for Last 24 Hours 03/19/25 03/20/25 03/21/25 23:59 23:59 23:59 Intake Total 1060 / 1300 240 / 240 Output Total 850 / 850 200 / 200 Balance 210 / 450 40 / 40 Lab / Micro Data 03/20/25 05:54 03/20/25 05:54 Labs: Laboratory Results - last 24 hr 03/21/25 05:11: Phosphorus 2.8 Physical Exam Narrative alert, oriented x3, no apparent distress and healthy appearing Constitutional Narrative: Patient has class III obesity General Appearance: cooperative, well kempt and well developed Orientation / Consciousness: awake, oriented to person, oriented to place and oriented to time HEENT normocephalic, head/scalp atraumatic and moist oral mucous membranes Eyes PERRL, EOMs intact bilaterally and conjunctivae normal Neck supple, no JVD, thyroid normal and no carotid bruits General: trachea midline Resp normal respiratory effort, no retractions and no use of accessory muscles Resp Narrative: Patient has bilateral expiratory wheezes which are high-pitched bilaterally Auscultation: wheezes expiratory wheezes; Negative for rales or rhonchi Cardio irregular rate, irregular rhythm, S1 normal heart sound, S2 normal heart sound, no murmurs, no rub and no gallops GI normal to inspection, nondistended, normoactive bowel sounds, soft to palpation, non-tender and non-distended Extremity no clubbing, cyanosis or edema Skin no rashes or lesions noted General Skin Exam: no breakdown Neuro oriented x3, CN's II-XII intact bilaterally, moves all extremities, no focal motor deficits and no sensory deficits noted Sensorium / Orientation: awake and alert Speech: speech normal Psych affect normal Assessment & Plan Assessment/Plan (1) COPD exacerbation: PLAN: Plan 1. Exacerbation of COPD-patient will remain on IV corticosteroids, aerosol treatments, patient is on Zithromax #2 chronic hypoxic respiratory failure-oxygen will be weaned if possible, patient is currently on 4 L at rest, 8 L on exertion #3 acute congestive heart failure with preserved ejection fraction-patient will remain on IV Lasix at this time, I will change her Lasix to 20 mg IV twice daily. #4 Chronic atrial fibrillation-patient is on chronic anticoagulation and rate control medication Total clinical time spent by myself addressing patient's medical issues, reviewing all of her data, and collaborating with patient's care team: 35 minutes Charges/Coding Visit Charges Inpatient E&M: 60017 Subs Hosp L2
[2025-03-21] MEDS: Fluticasone 0.05% 1 SPRAY NASAL.SRY 2 SPRAY NASAL (21:17)
[2025-03-21] MEDS: Montelukast 10 MG Tablet PO (21:19)
[2025-03-22] VITALS (10 sets, daily range): BP systolic 134–154; BP diastolic 57–69; PULSE 67–78; RESP 16–20; TEMP 36.3–36.6; O2SAT 91–99; BMI 46.8
[2025-03-22] MEDS: Ipratropium/Albuterol Sulfate 3 ML AMPUL.NEB INHALATION ×2 (06:59→19:37)
[2025-03-22] MEDS: Azithromycin 250 MG Tablet 500 MG PO (08:19)
[2025-03-22] MEDS: Potassium Chloride Oral Tablet 20 MEQ PO ×2 (08:19→16:50)
[2025-03-22] MEDS: dilTIAZem CD 240 MG Capsule PO (08:20)
[2025-03-22] MEDS: Pantoprazole Sodium 40 MG Tablet PO (08:20)
[2025-03-22] MEDS: APIXABAN 5 MG TABLET PO ×2 (08:20→21:35)
[2025-03-22] MEDS: Metoprolol Tartrate 50 MG Tablet PO ×2 (08:20→21:36)
[2025-03-22] MEDS: DULoxetine Hcl 60 MG Capsule PO (08:20)
[2025-03-22] MEDS: MethylPREDNISolone 125 MG/2 ML Vial 60 MG IV ×2 (08:21→21:36)
[2025-03-22] MEDS: Furosemide 20 MG/2 ML VIAL IV ×2 (08:22→16:50)
--- NOTE | 2025-03-22 17:40 | PCM.PN.HOSP ---
Reason for Visit Reason for Visit: Diagnoses Chronic atrial fibrillation, unspecified (03/19/25) Chronic obstructive pulmonary disease with (acute) exacerbation (03/19/25) Subjective Subjective Patient was seen and examined today, she requires 6 L on ambulation and 4 L at rest. Her baseline oxygen requirement at home is 4 L-according to nursing, her home concentrator only goes up to 5 L Objective Data Objective Data Vital Signs: Vital Signs Temp Pulse Resp BP Pulse Ox O2 Del Method O2 Flow Rate 97.6 F L 67 17 142/69 H 99 Nasal Cannula 4 03/22/25 09:00 03/22/25 09:00 03/22/25 09:00 03/22/25 09:00 03/22/25 09:00 03/22/25 14:00 03/22/25 15:04 Oxygen Flow Rate (L/min) 4 Oxygen Delivery Method Nasal Cannula Weight: 116.2 kg Body Mass Index (BMI) 46.8 Intake & Output: Intake and Output for Last 24 Hours 03/20/25 03/21/25 03/22/25 23:59 23:59 23:59 Intake Total 1060 / 1300 1335 / 1455 840 / 840 Output Total 850 / 850 700 / 1150 1500 / 1500 Balance 210 / 450 635 / 305 -660 / -660 Lab / Micro Data 03/20/25 05:54 03/20/25 05:54 Physical Exam Narrative alert, oriented x3, no apparent distress and healthy appearing Constitutional Narrative: Patient has class III obesity General Appearance: cooperative, well kempt and well developed Orientation / Consciousness: awake, oriented to person, oriented to place and oriented to time HEENT normocephalic, head/scalp atraumatic and moist oral mucous membranes Eyes PERRL, EOMs intact bilaterally and conjunctivae normal Neck supple, no JVD, thyroid normal and no carotid bruits General: trachea midline Resp normal respiratory effort, no retractions and no use of accessory muscles Resp Narrative: Patient has bilateral expiratory wheezes which are high-pitched bilaterally Auscultation: wheezes expiratory wheezes; Negative for rales or rhonchi Cardio irregular rate, irregular rhythm, S1 normal heart sound, S2 normal heart sound, no murmurs, no rub and no gallops GI normal to inspection, nondistended, normoactive bowel sounds, soft to palpation, non-tender and non-distended Extremity no clubbing, cyanosis or edema Skin no rashes or lesions noted General Skin Exam: no breakdown Neuro oriented x3, CN's II-XII intact bilaterally, moves all extremities, no focal motor deficits and no sensory deficits noted Sensorium / Orientation: awake and alert Speech: speech normal Psych affect normal Assessment & Plan Assessment/Plan (1) COPD exacerbation: PLAN: Plan 1. Exacerbation of COPD-patient will remain on IV corticosteroids, aerosol treatments, patient is on Zithromax #2 chronic hypoxic respiratory failure-oxygen will be weaned if possible, patient is currently on 4 L at rest, 6 L on exertion, patient may need a different oxygen concentrator set up at home #3 acute congestive heart failure with preserved ejection fraction-patient will remain on IV Lasix at this time, she is currently on 20 mg twice daily #4 Chronic atrial fibrillation-patient is on chronic anticoagulation and rate control medication Total clinical time spent by myself addressing patient's medical issues, reviewing all of her data, and collaborating with patient's care team: 35 minutes Charges/Coding Visit Charges Inpatient E&M: 33901 Subs Hosp L2
[2025-03-22] MEDS: Fluticasone 0.05% 1 SPRAY NASAL.SRY 2 SPRAY NASAL (21:36)
[2025-03-22] MEDS: Montelukast 10 MG Tablet PO (21:36)
[2025-03-23] VITALS (11 sets, daily range): BP systolic 124–159; BP diastolic 60–80; PULSE 60–114; RESP 16–18; TEMP 36.6–36.9; O2SAT 85–99; BMI 46.5
[2025-03-23] MEDS: Ipratropium/Albuterol Sulfate 3 ML AMPUL.NEB INHALATION ×3 (06:47→16:57)
[2025-03-23 06:48] LABS: Anion Gap 5 (5-15); BUN 25 mg/dL (4-19); BUN/Creat Ratio 43.4 RATIO (10-20); Calcium,Total 9.3 mg/dL (7.6-11.0); Carbon Dioxide 42.1 mmol/L (21.0-32.0); Chloride 91 mmol/L (98-108); Creatinine, Serum 0.58 mg/dL (0.70-1.20); EST Glomerular Filtration Rate 97 (>60); Estimated Creatinine Clearance 77.57 ml/min (50-250); Glucose 165 mg/dL (70-99); Potassium 4.9 mmol/L (3.3-5.1); Sodium Level 138 mmol/L (133-145)
[2025-03-23] MEDS: dilTIAZem CD 240 MG Capsule PO (09:21)
[2025-03-23] MEDS: Azithromycin 250 MG Tablet 500 MG PO (10:08)
[2025-03-23] MEDS: DULoxetine Hcl 60 MG Capsule PO (10:08)
[2025-03-23] MEDS: Metoprolol Tartrate 50 MG Tablet PO ×2 (10:09→22:53)
[2025-03-23] MEDS: Pantoprazole Sodium 40 MG Tablet PO (10:09)
[2025-03-23] MEDS: APIXABAN 5 MG TABLET PO ×2 (10:10→22:53)
[2025-03-23] MEDS: Furosemide 20 MG/2 ML VIAL IV ×2 (10:10→17:23)
[2025-03-23] MEDS: Potassium Chloride Oral Tablet 20 MEQ PO ×2 (10:11→17:23)
[2025-03-23] MEDS: MethylPREDNISolone 125 MG/2 ML Vial 60 MG IV ×2 (10:11→22:54)
--- NOTE | 2025-03-23 13:51 | PN_ITS ---
Subjective Subjective Patient seen and examined. She was trying to ambulate with therapy. She still complains of shortness of breath with exertion. She denied any chest pain, wheezing, palpitations, nausea, vomiting or any other symptoms. REview of systems is otherwise negative. Objective Data Objective Data Vital Signs: Vital Signs Temp Pulse Resp BP Pulse Ox O2 Del Method O2 Flow Rate 97.9 F 68 18 138/76 H 95 Nasal Cannula 4 03/23/25 09:20 03/23/25 12:09 03/23/25 12:09 03/23/25 09:20 03/23/25 09:20 03/23/25 10:00 03/23/25 10:00 Oxygen Flow Rate (L/min) 4 Oxygen Delivery Method Nasal Cannula Weight: 254 lb 3.088 oz Body Mass Index (BMI) 46.5 Intake & Output: Intake and Output for Last 24 Hours 03/21/25 03/22/25 03/23/25 23:59 23:59 23:59 Intake Total 1335 / 1455 840 / 840 Output Total 700 / 1150 1500 / 2250 1150 / 1150 Balance 635 / 305 -660 / -1410 -1150 / -1150 Lab / Micro Data 03/20/25 05:54 03/23/25 05:44 Labs: Laboratory Results - last 24 hr 03/23/25 05:44: Sodium 138, Potassium 4.9, Chloride 91 L, Carbon Dioxide 42.1 H, Anion Gap 5, BUN 25 H, Creatinine 0.58 L, Estim Creat Clear Calc 77.57, Est GFR (MDRD) Non-Af 97, BUN/Creatinine Ratio 43.4 H, Glucose 165 H, Calcium 9.3 Physical Exam Const alert, oriented x3 and no apparent distress Constitutional Narrative: class III obesity HEENT normocephalic, head/scalp atraumatic, moist oral mucous membranes and oropharynx normal Eyes PERRL and EOMs intact bilaterally Neck no lymphadenopathy, supple and no JVD Lymph Lymphatic: no lymphadenopathy noted and no lymphedema noted Resp Resp Narrative: mildly diminished breath sounds bibasally, no wheezes or crackles. On 4L of oxygen by nasal canula Cardio regular rate, regular rhythm, S1 normal heart sound, S2 normal heart sound and no murmurs GI normal to inspection, nondistended, normoactive bowel sounds, soft to palpation, non-tender and non-distended GI Narrative: obese Extremity normal capillary refill, no clubbing, cyanosis or edema and no calf tenderness General Extremity: no tenderness to palpation of joints or extremities Skin General Skin Exam: no breakdown Neuro CN's II-XII intact bilaterally, no focal motor deficits and no sensory deficits noted Motor Exam: strength 5/5 throughout and general weakness Psych thought process normal, cooperative and affect normal Appearance: appropriate Assessment & Plan Assessment/Plan (1) COPD exacerbation: (2) CHF (congestive heart failure): QUALIFIERS: Heart failure type: unspecified Heart failure chronicity: acute Qualified Code(s): I50.9 - Heart failure, unspecified (3) Atrial fibrillation: QUALIFIERS: Atrial fibrillation type: unspecified chronic Q ualified Code(s): I48.20 - Chronic atrial fibrillation, unspecified PLAN: Plan #Aute exacerbation of COPD * On breathing treatments bronchodilators. On azithromycin. On IV Solu-Medrol. * titrate oxygen to maintain sats >90% * Sputum culture is pending. * #Acute HFpEF: On IV Lasix 20 mg twice daily. Monitor intake and output. Fluid restriction to 1500 cc daily. #A-fib: This is chronic. Heart rate went up with ambulation today. On Eliquis and Cardizem as well as metoprolol DVT prophylaxis: On Eliquis Charges/Coding Visit Charges Inpatient E&M: 55159 Subs Hosp L2
[2025-03-23] MEDS: 0.9% Saline Lock 10 ML Syringe IV (17:24)
[2025-03-23] MEDS: Montelukast 10 MG Tablet PO (22:53)
[2025-03-23] MEDS: Fluticasone 0.05% 1 SPRAY NASAL.SRY 2 SPRAY NASAL (22:54)
[2025-03-24] VITALS (11 sets, daily range): BP systolic 117–155; BP diastolic 72–126; PULSE 68–84; RESP 16–22; TEMP 36.6–36.8; O2SAT 86–100; BMI 46.5
[2025-03-24 06:44] LABS: Absolute Lymphocyte Count 0.66 X10^3/uL (0.83-4.51); Absolute Neutrophil Count 16.2 X10^3/uL (2.0-7.7); Basophil# 0.03 X10^3/uL; Basophil% 0.2 % (0-1); Eosinophil# 0.37 X10^3/uL; Hematocrit 40.5 % (37-47); Hemoglobin 12.3 g/dL (12.0-15.0); Lymphocyte # 0.66 X10^3/ul (0.83-4.51); Lymphocyte % 3.6 % (19-41); Mean Corp Hgb Conc 30.4 g/dL (32-36); Mean Corpuscular Hgb 28.5 pg (27.0-32.0); Mean Corpuscular Volume 93.8 fL (81-99); Mean Platelet Vol. 9.7 fl (6.2-12.0); Monocyte# 0.68 X10^3/uL; Monocyte% 3.8 % (0-10); NRBC Flagged by Analyzer 0 % (0-5); Neutrophil # 16.18 X10^3/uL (2.7-7.7); Neutrophil % 89.5 % (47-70); Platelet Count 362 K/mm3 (150-450); RBC Distribution Width SD 48.5 fl (35.1-43.9); Red Blood Count 4.32 M/mm3 (4.2-5.4); White Blood Count 18.1 K/mm3 (4.4-11.0)
[2025-03-24 07:02] LABS: Anion Gap 4 (5-15); BUN 32 mg/dL (4-19); BUN/Creat Ratio 43.1 RATIO (10-20); Calcium,Total 9.2 mg/dL (7.6-11.0); Carbon Dioxide 40.9 mmol/L (21.0-32.0); Chloride 89 mmol/L (98-108); Creatinine, Serum 0.74 mg/dL (0.70-1.20); EST Glomerular Filtration Rate 87 (>60); Estimated Creatinine Clearance 77.65 ml/min (50-250); Glucose 163 mg/dL (70-99); Potassium 5.6 mmol/L (3.3-5.1); Sodium Level 134 mmol/L (133-145)
[2025-03-24] MEDS: Ipratropium/Albuterol Sulfate 3 ML AMPUL.NEB INHALATION ×2 (07:12→12:45)
[2025-03-24] MEDS: dilTIAZem CD 240 MG Capsule PO (09:49)
[2025-03-24] MEDS: APIXABAN 5 MG TABLET PO (09:50)
[2025-03-24] MEDS: Furosemide 20 MG/2 ML VIAL IV (09:50)
[2025-03-24] MEDS: DULoxetine Hcl 60 MG Capsule PO (09:50)
[2025-03-24] MEDS: Metoprolol Tartrate 50 MG Tablet PO (09:50)
[2025-03-24] MEDS: Pantoprazole Sodium 40 MG Tablet PO (09:51)
[2025-03-24] MEDS: MethylPREDNISolone 125 MG/2 ML Vial 60 MG IV (09:51)
[2025-03-24] MEDS: 0.9% Saline Lock 10 ML Syringe IV (09:52)
[2025-03-24] MEDS: Azithromycin 250 MG Tablet 500 MG PO (09:52)
--- NOTE | 2025-03-24 12:41 | DCINST_ITS ---
Discharge Instructions Diet Discharge Diet: Low fat / Low cholesterol DC O2, CPAP, BIPAP needs Home O2 Discharge instructions: Yes Type of respiratory needs?: Oxygen Oxygen frequency: At rest and With Ambulation Oxygen liters per minute during Ambulation: 6 Dressing / Incision Discharge Activity: Return to Normal Activity Weight Bearing Status: Weight bearing as tolerated Dressing / Incision Call your doctor if you observe: Fever of 101 or Higher, Shortness of breath, Dizziness, Swelling in the ankles and Chest pain Follow Up Care Test Results: Test results from this visit will be discussed in further detail at your follow- up appointment, if applicable. Discharge Plan Admission Admit Date/Time: 03/19/25 22:05 Primary Reason for Your Visit: COPD exacerbation Attending Provider: Cindi Lizarraga Primary Care Provider: Genia Carcamo Consulting Providers: Morales Bolden; Chai Rider Instructions Patient Instructions: Discharge Instructions: COPD Discharge Orders/Prescriptions Prescriptions: New prednisone 20 mg tablet 40 mg PO DAILY Qty: 10 0RF Continued diltiazem HCl [Tiadylt ER] 240 mg capsule,extended release 24 hr 240 mg PO QDAY potassium chloride 20 mEq tablet extended release 20 meq PO DAILY Qty: 90 3RF duloxetine 60 mg capsule,delayed release(DR/EC) 60 mg PO QDAY montelukast 10 MG tablet 10 mg PO QHS albuterol sulfate 90 mcg/actuation HFA aerosol inhaler 2 puff Inhalation Q4H PRN (Reason: Shortness Of Breath) Nurtec ODT 75 mg tablet,disintegrating 75 mg PO DAILY PRN (Reason: migraine) Patient Comments: TAKE 1 (ONE) TABLET BY MOUTH DAILY IF NEEDED FOR MIGRAINE Trelegy Ellipta 200-62.5-25 mcg blister with device 1 inh inhalation DAILY fluticasone propionate [24 Hour Allergy Relief] 50 mcg/actuation spray, suspension 2 spray intranasal DAILY Rx Instructions: administer into each nostril furosemide 40 mg tablet 40 mg PO Q12H cetirizine [24Hour Allergy] 10 mg tablet 10 mg PO DAILY metoprolol tartrate 50 mg tablet 50 mg PO BID Qty: 180 3RF Eliquis 5 mg tablet 5 mg PO BID Qty: 60 11RF Referrals / Follow Up: Christy Perea MD [Med Staff - Community Outreach Worker] - Genia Carcamo MD [Primary Care Provider] - 03/25/25 11:30 am (With Nurse Practioner Azael ) Disposition Disposition (needs filled in before D/C Order can be placed): Home Health Service
--- NOTE | 2025-03-24 12:42 | PCM.DC.SUM ---
Providers Date of Admission: 03/19/25 Date of Discharge: 03/24/25 Primary Care Physician: Genia Carcamo MD Reason For Visit: AE COPD AE CHF AND RESPIRATORY INSUFFICIENCY Diagnosis Discharge Diagnosis (1) COPD exacerbation: Status: Chronic Code(s): J44.1 - Chronic obstructive pulmonary disease with (acute) exacerbation (2) CHF (congestive heart failure): Status: Acute Code(s): I50.9 - Heart failure, unspecified Qualifiers: Heart failure chronicity: acute Heart failure type: unspecified Qualified Code(s): I50.9 - Heart failure, unspecified (3) Atrial fibrillation: Status: Acute Code(s): I48.91 - Unspecified atrial fibrillation Qualifiers: Atrial fibrillation type: unspecified chronic Qualified Code(s): I48.20 - Chronic atrial fibrillation, unspecified Plan #Aute exacerbation of COPD On breathing treatments bronchodilators. On azithromycin. On IV Solu-Medrol. titrate oxygen to maintain sats >90% Sputum culture is pending. #Acute HFpEF: On IV Lasix 20 mg twice daily. Monitor intake and output. Fluid restriction to 1500 cc daily. #A-fib: This is chronic. Heart rate went up with ambulation today. On Eliquis and Cardizem as well as metoprolol DVT prophylaxis: On Eliquis Medications at Discharge Home Medications montelukast 10 mg tablet 10 mg PO QHS allergies 09/07/18 fluticasone fur. 200 mcg-umeclid 62.5 mcg-vilant 25 mcg inhalat.powder (Trelegy Ellipta) 1 inh inhalation DAILY SOB 07/08/23 rimegepant 75 mg disintegrating tablet (Nurtec ODT) 75 mg PO DAILY PRN migraine 07/08/23 albuterol sulfate 90 mcg/actuation aerosol inhaler 2 puff inhalation Q4H PRN Shortness Of Breath 02/13/24 diltiazem HCl 240 mg capsule,24 hr,extended release (Tiadylt ER) 240 mg PO QDAY 02/19/24 potassium chloride 20 mEq tablet,extended release 20 meq PO DAILY #90 tabs 05/07/24 duloxetine 60 mg capsule,delayed release 60 mg PO QDAY 09/30/24 metoprolol tartrate 50 mg tablet 50 mg PO BID #180 tabs 10/09/24 apixaban 5 mg tablet (Eliquis) 5 mg PO BID #60 tabs 02/16/25 cetirizine 10 mg tablet (24Hour Allergy) 10 mg PO DAILY allergy 03/19/25 fluticasone propionate 50 mcg/actuation nasal spray,suspension (24 Hour Allergy Relief) 2 spray intranasal DAILY 03/19/25 furosemide 40 mg tablet 40 mg PO Q12H 03/19/25 prednisone 20 mg tablet 40 mg (2 x 20 mg) PO DAILY #10 tabs 03/24/25 Hospital Course Operations None Procedures None Summary of Care Provided Minutes Spent on Discharge: 45 Hospital Course: Patient is a 69-year-old female with a past medical history as outlined including COPD with chronic respiratory failure on 4 L of oxygen at home was admitted to the ED on 03/19/2025 with complaint of shortness of breath, wheezing and lower extremity edema. Her symptoms are started about 2 weeks prior to admission and was of gradual onset and gradually worsening. She saw her PCP who increased her Lasix 40 mg twice daily and also increased her potassium but her symptoms did not improve so she came into the ED. She admitted to about 30 pound weight gain over 10 months prior to admission and also had increased lethargy and sensation of chest pressure as well as lower extremity edema. Ordered patient proBNP was elevated at thousand 3 chest x-ray showed possible small left pleural effusion and age indeterminate fracture of the left humeral neck with clinical correlation recommended. She was admitted and managed for acute exacerbation of heart failure as well as acute exacerbation of COPD. She started on diuresis with IV Lasix. She had a 2D echo which showed EF of 65% and unable to assess diastolic dysfunction due to arrhythmia. His shortness of breath gradually improved and she was weaned down to her baseline oxygen. She was on 3.5 L of oxygen at home. With exertion she was initially requiring up to 10 L of oxygen but was eventually weaned down to her home dose of 6 L of oxygen with exertion. She was discharged on p.o. Lasix 40 mg twice daily as well as p.o. prednisone 40 mg daily for 5-day course. She is follow-up with her primary care doctor in 1 to 2 weeks. She is also to follow-up with cardiology within 1 to 2 weeks. Patient seen and examined prior to discharge. She had no active complaints and felt well. Review of systems otherwise negative. Labs and vitals reviewed. Medication reviewed and reconciled. Physical Exam Const alert, oriented x3 and no apparent distress Constitutional Narrative: class III obesity General Appearance: cooperative, comfortable, well kempt and well developed Orientation / Consciousness: awake, oriented to person, oriented to place and oriented to time Exam Limitations: no limitations HEENT normocephalic, head/scalp atraumatic, hearing grossly normal bilaterally, moist oral mucous membranes and oropharynx normal Mouth: oral and palatal mucosa normal Eyes PERRL, EOMs intact bilaterally and conjunctivae normal Neck no lymphadenopathy, supple, no JVD, thyroid normal and no carotid bruits General: trachea midline Lymph Lymphatic: no lymphadenopathy noted and no lymphedema noted Resp normal respiratory effort, no retractions and no use of accessory muscles Resp Narrative: mildly diminished breath sounds bibasally, no wheezes or crackles. On 4L of oxygen by nasal canula Auscultation: wheezes expiratory wheezes; Negative for rales or rhonchi Cardio regular rate, regular rhythm, S1 normal heart sound, S2 normal heart sound, no murmurs, no rub and no gallops Cardio Narrative: Irregularly irregular at ~80 bpm. GI normal to inspection, nondistended, normoactive bowel sounds, soft to palpation, non-tender and non-distended GI Narrative: obese Extremity normal capillary refill, no clubbing, cyanosis or edema and no calf tenderness Extremity Narrative: ~2+ bilateral lower extremity pitting edema. General Extremity: no tenderness to palpation of joints or extremities Skin no rashes or lesions noted General Skin Exam: no breakdown Neuro oriented x3, CN's II-XII intact bilaterally, moves all extremities, no focal motor deficits and no sensory deficits noted Sensorium / Orientation: awake, alert, oriented to person, oriented to place and oriented to time Speech: speech normal Motor Exam: strength 5/5 throughout and general weakness Psych thought process normal, cooperative and affect normal Appearance: appropriate Weight / BMI Weight Weight: 254 lb 10.142 oz Body Mass Index (BMI) 46.5 ABG / Lab / Microbiology Data 03/24/25 06:20 03/24/25 06:20 Laboratory: Laboratory Results - last 24 hr 03/24/25 06:20: WBC 18.1 H, RBC 4.32, Hgb 12.3, Hct 40.5, MCV 93.8, MCH 28.5, MCHC 30.4 L, RDW Std Deviation 48.5 H, RDW Coeff of Beena 14.0, Plt Count 362, MPV 9.7, Immature Gran % (Auto) 0.900, Neut % (Auto) 89.5 H, Lymph % (Auto) 3.6 L, [place] % (Auto) 3.8, Eos % (Auto) 2.0, Baso % (Auto) 0.2, Absolute Neuts (auto) 16.2 H, Absolute Lymphs (auto) 0.66 L, Nucleated RBC % 0, Sodium 134, Potassium 5.6 H, Chloride 89 L, Carbon Dioxide 40.9 H, Anion Gap 4 L, BUN 32 H, Creatinine 0.74, Estim Creat Clear Calc 77.65, Est GFR (MDRD) Non-Af 87, BUN/Creatinine Ratio 43.1 H, Glucose 163 H, Calcium 9.2 Microbiology: Microbiology 03/23/25 13:23 Sputum, Expectorated/Coughed Gram Stain - Final 03/23/25 13:23 Sputum, Expectorated/Coughed Respiratory Culture - Preliminary Appears to be normal respiratory maribel. Further studies to follow. D/C Instructions Discharge Diet: Low fat / Low cholesterol Discharge Activity: Return to Normal Activity Weight Bearing Status: Weight bearing as tolerated Call your doctor if you observe: Fever of 101 or Higher, Shortness of breath, Dizziness, Swelling in the ankles and Chest pain DC O2, CPAP, BIPAP Needs Home O2 Discharge instructions: Yes Type of respiratory needs?: Oxygen Oxygen frequency: At rest and With Ambulation Oxygen liters per minute during Ambulation: 6 DC home with Oxygen: Yes Home O2 MD Review: I have reviewed the oxygen testing, and the patient qualifies for home oxygen equipment and portability. The patient is mobile in the home and the community. Meaningful Use Info Meaningful Use Meaningful Use Diagnoses (Choose all that apply): CHF CHF JHON/ARB ordered at discharge?: No Reason JHON/ARB not ordered?: Not indicated Documented LVEF (%): 65 Ischemic Stroke Statin Dosing Therapy Reference: STATIN DOSE THERAPY REFERENCE: * Patients > 75 years receive moderate or high dose statin therapy. * Patients 75 years or YOUNGER should receive HIGH intensity statin dose unless contraindicated. You will be required to document reason for non-treatment if statin daily dose does not meet guidelines. HIGH DOSE STATIN THERAPY DAILY Atorvastatin > than or = to 40 mg Rosuvastatin > than or = to 20 mg Amlodipine + Atorvastatin > than or = to 2.5/40 mg Ezetimibe + Simvastatin 10/80 mg Simvastatin 80mg Discharge Plan Admission Admit Date/Time: 03/19/25 22:05 Primary Reason for Your Visit: COPD exacerbation Attending Provider: Cindi Lizarraga Primary Care Provider: Genia Carcamo Consulting Providers: Morales Bolden; Chai Rider Instructions Patient Instructions: Discharge Instructions: COPD Discharge Orders/Prescriptions Prescriptions: New prednisone 20 mg tablet 40 mg PO DAILY Qty: 10 0RF Continued diltiazem HCl [Tiadylt ER] 240 mg capsule,extended release 24 hr 240 mg PO QDAY potassium chloride 20 mEq tablet extended release 20 meq PO DAILY Qty: 90 3RF duloxetine 60 mg capsule,delayed release(DR/EC) 60 mg PO QDAY montelukast 10 MG tablet 10 mg PO QHS albuterol sulfate 90 mcg/actuation HFA aerosol inhaler 2 puff Inhalation Q4H PRN (Reason: Shortness Of Breath) Nurtec ODT 75 mg tablet,disintegrating 75 mg PO DAILY PRN (Reason: migraine) Patient Comments: TAKE 1 (ONE) TABLET BY MOUTH DAILY IF NEEDED FOR MIGRAINE Trelegy Ellipta 200-62.5-25 mcg blister with device 1 inh inhalation DAILY fluticasone propionate [24 Hour Allergy Relief] 50 mcg/actuation spray,suspension 2 spray intranasal DAILY Rx Instructions: administer into each nostril furosemide 40 mg tablet 40 mg PO Q12H cetirizine [24Hour Allergy] 10 mg tablet 10 mg PO DAILY metoprolol tartrate 50 mg tablet 50 mg PO BID Qty: 180 3RF Eliquis 5 mg tablet 5 mg PO BID Qty: 60 11RF Referrals / Follow Up: Christy Perea MD [Med Staff - Appliance Assembler] - Genia Carcamo MD [Primary Care Provider] - 03/25/25 11:30 am (With Nurse Practioner Azael ) Disposition Disposition (needs filled in before D/C Order can be placed): Home Health Service Charges/Coding Visit Charges Inpatient E&M: 04953 Disch Hosp >30min
--- NOTE | 2025-03-24 13:43 | CASEMGMT ---
Patient has order for dishcarge. LUIS NOLAND updated [facility], start of care planned for . Patient will need increase in home oxygen, script received and referral sent to [facility] [place]. LUIS NOLAND in to discuss needs at discharge. LUIS NOLAND updated patient with planned start of care and increase home oxygen needs. Patient and voiced understanding and had no further needs, concerns, or questions. Discharge plan updated.
--- NOTE | 2025-03-24 13:45 | PHA.DC_ITS ---
Pharmacy [facility] has performed discharge medication reconciliation and counseling for this patient. 1. Prednisone 40mg PO daily x 5 days The patient's discharge medication list was reviewed for discrepancies and discrepancies were resolved. The patient was counseled on the following discharge medications and changes in medications for homegoing were reviewed. The Reason for Use, instructions for use, and potential side effects were reviewed for all new medications. The patient's questions regarding all of their medications were answered. The patient was able to verbally demonstrate an understanding of their discharge medications. Medications at Discharge Home Medications montelukast 10 mg tablet 10 mg PO QHS allergies 09/07/18 fluticasone fur. 200 mcg-umeclid 62.5 mcg-vilant 25 mcg inhalat.powder (Trelegy Ellipta) 1 inh inhalation DAILY SOB 07/08/23 rimegepant 75 mg disintegrating tablet (Nurtec ODT) 75 mg PO DAILY PRN migraine 07/08/23 albuterol sulfate 90 mcg/actuation aerosol inhaler 2 puff inhalation Q4H PRN Shortness Of Breath 02/13/24 diltiazem HCl 240 mg capsule,24 hr,extended release (Tiadylt ER) 240 mg PO QDAY 02/19/24 potassium chloride 20 mEq tablet,extended release 20 meq PO DAILY #90 tabs 05/07/24 duloxetine 60 mg capsule,delayed release 60 mg PO QDAY 09/30/24 metoprolol tartrate 50 mg tablet 50 mg PO BID #180 tabs 10/09/24 apixaban 5 mg tablet (Eliquis) 5 mg PO BID #60 tabs 02/16/25 cetirizine 10 mg tablet (24Hour Allergy) 10 mg PO DAILY allergy 03/19/25 fluticasone propionate 50 mcg/actuation nasal spray,suspension (24 Hour Allergy Relief) 2 spray intranasal DAILY 03/19/25 furosemide 40 mg tablet 40 mg PO Q12H 03/19/25 prednisone 20 mg tablet 40 mg (2 x 20 mg) PO DAILY #10 tabs 03/24/25
== END 2025-03-24 15:40 | disposition home health service (06) | DRG 190 ==
LOC: ED 21:45 → PCU 22:11
PROVIDERS: Internal Medicine; Admitting Provider Internal Medicine; Emergency Provider Emergency Medicine; PCP Family Medicine; Referring Provider Emergency Medicine; Visit Provider Student in an Organized Health Care Education/Training Program
DX: J44.1 Chronic obstructive pulmonary disease with (acute) exacerbation (principal); I50.31 Acute diastolic (congestive) heart failure; I48.20 Chronic atrial fibrillation, unspecified; J96.11 Chronic respiratory failure with hypoxia; Z68.42 Body mass index [BMI] 45.0-49.9, adult; I11.0 Hypertensive heart disease with heart failure; E66.01 Morbid (severe) obesity due to excess calories; G43.909 Migraine, unspecified, not intractable, without status migrainosus; F32.A Depression, unspecified; G47.419 Narcolepsy without cataplexy; E78.5 Hyperlipidemia, unspecified; M19.90 Unspecified osteoarthritis, unspecified site; I25.10 Atherosclerotic heart disease of native coronary artery without angina pectoris; J30.2 Other seasonal allergic rhinitis; K21.9 Gastro-esophageal reflux disease without esophagitis; Z79.01 Long term (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 anticoagulants; M85.80 Other specified disorders of bone density and structure, unspecified site; Z87.891 Personal history of nicotine dependence; Z79.51 Long term (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 inhaled steroids; Z82.49 Family history of ischemic heart disease and other diseases of the circulatory system; Z79.899 Other long term (current) drug therapy; Z79.52 Long term (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 systemic steroids; Z99.81 Dependence on supplemental oxygen; Z91.09 Other allergy status, other than to drugs and biological substances; Z90.49 Acquired absence of other specified parts of digestive tract
CPT/HCPCS: 36415; 71045; 80048; 80053; 80061; 82607; 82746; 83036; 83735; 83880; 84100; 84443; 84484; 85025; 87070; 87077; 87186; 87205; 93005; 93306; 94003; 94640; 94660; 94668; 97110; 97116; 97162; 97166; 97530; 97535; 97802; 99252; 99285; 99406; Q9957; A4216; C8929; G0463; J1940

== ENCOUNTER 2025-03-25 11:38 | Emergency (ER) | payer MEDICARE, SELFPAY ==
[2024-08-18 10:21] VITALS: BMI 40.8
[2025-03-25 11:43] VITALS: BP 157/84; PULSE 116; RESP 16; TEMP 36.8; O2SAT 94; O2SAT 97; BMI 46.4
[2025-03-25 11:48] VITALS: BP 157/84; PULSE 82; RESP 15; TEMP 36.8; O2SAT 96; O2SAT 97
--- NOTE | 2025-03-25 12:10 | EKG12_ITS ---
Test Reason : SOB Blood Pressure : */* mmHG Vent. Rate : 82 BPM Atrial Rate : * BPM P-R Int : * ms QRS Dur : 80 ms QT Int : 350 ms P-R-T Axes : * 60 48 degrees QTcB Int : 408 ms Atrial fibrillation Abnormal ECG Confirmed by ASHLEY NORRIS, JODI ([id number]), newspaper editor managing SHANNAN MAN ([id number]) on 03/26/2025 1:25:32 PM Referred By: Confirmed By: JODI RAMIREZ MD
--- NOTE | 2025-03-25 12:25 | RAD_ITS ---
PROCEDURE: CHEST 1 VIEW (PORTABLE) (RADCXPA_P), 03/25/2025 REASON FOR EXAM: SOB TECHNIQUE: A single portable AP view of the chest was obtained. COMPARISON: 03/19/2025 FINDINGS: Heart: Similar top-normal heart size. Mediastinum: Atherosclerosis Lungs/pleura: Similar questioned trace to small LEFT pleural effusion. No convincing focal consolidation. No visible pneumothorax. Bones: Old LEFT rib fracture. Degenerative changes of the shoulders including evidence of rotator cuff pathology on the RIGHT. Suspect demineralization.. Grossly similar age-indeterminate fracture of the LEFT humeral neck, not well evaluated, but also seen on CT 09/08/2024. Lines and support devices: None. Other: None. RAD/Chest 1 View (Portable) IMPRESSION: Similar appearance of the chest as above including questioned trace to small LE FT pleural effusion versus minimal basilar airspace disease. Reading Location: [id number]
[2025-03-25 12:32] LABS: Absolute Lymphocyte Count 1.08 X10^3/uL (0.83-4.51); Absolute Neutrophil Count 22.6 X10^3/uL (2.0-7.7); Basophil# 0.05 X10^3/uL; Basophil% 0.2 % (0-1); Differential Indicated SCAN CRITERIA MET; Hematocrit 41.5 % (37-47); Hemoglobin 12.8 g/dL (12.0-15.0); Lymphocyte # 1.08 X10^3/ul (0.83-4.51); Lymphocyte % 4.2 % (19-41); Mean Corp Hgb Conc 30.8 g/dL (32-36); Mean Corpuscular Hgb 28.6 pg (27.0-32.0); Mean Corpuscular Volume 92.8 fL (81-99); Mean Platelet Vol. 9.9 fl (6.2-12.0); Monocyte# 2.03 X10^3/uL; Monocyte% 7.8 % (0-10); NRBC Flagged by Analyzer 0 % (0-5); Neutrophil # 22.57 X10^3/uL (2.7-7.7); POSITIVE DIFFERENTIAL YES; Platelet Count 414 K/mm3 (150-450); RBC Distribution Width CV 14.1 % (11.6-14.6); RBC Distribution Width SD 47.7 fl (35.1-43.9); Red Blood Count 4.47 M/mm3 (4.2-5.4); White Blood Count 25.9 K/mm3 (4.4-11.0)
[2025-03-25 12:39] VITALS: BP 152/73; PULSE 82; RESP 16; O2SAT 97
--- NOTE | 2025-03-25 12:45 | EX.ED.DYSGE1 ---
HPI History of Present Illness Chief Complaint: Shortness of Breath Informant: patient and spouse/S.O. Narrative Narrative: Brought in by EMS increasing dyspnea. Discharged yesterday COPD exacerbation and heart failure exacerbation. Chronic 4 L of oxygen. States was told 6 L when she exerts herself. Chronic anticoagulation with Eliquis history of A-fib. States cough is improved. She finished her last dose of antibiotics yesterday she has 3 more days of prednisone. She in the hospital for 5 days. Discussing with patient and spouse, after discharge yesterday they reported needed to see their primary care doctor for approval of home health care. They reported they had help twice a week to check on her medically they would do fine. Also they state the portable tank only goes up to 5 L for which she needs 6. Reported with walking she went down to 70%. No chest pains. Leg swelling however improved compared to previous. Currently discharged Lasix twice a day. Previously was on once a day. Discharge twice a day. States was increased to twice a day before hospitalization. [facility] Medical History Atrial fibrillation Hypertension Abnormal stress test Atrial fibrillation with rapid ventricular response Tachycardia Asthma Chronic airway obstruction Motion sickness Osteopenia Sleep apnea GERD (gastroesophageal reflux disease) Morbid obesity Anxiety Fatigue Smoker Depression Migraines Acute respiratory failure with hypoxia COPD exacerbation Acute sinusitis Cellulitis of left forearm Cellulitis and abscess of face Urinary tract infection Septic olecranon bursitis of right elbow Olecranon bursitis of right elbow Bursitis Sebaceous cyst of axilla Back pain Bronchitis URI (upper respiratory infection) Knee pain Hemorrhoids SOB (shortness of breath) Lung disease Arthritis Home Medications ?Medication ?Instructions ?Recorded ?Last Taken ?Type montelukast 10 mg tablet 10 mg PO QHS allergies 09/07/18 03/24/25 History fluticasone fur. 200 mcg-umeclid 1 inh inhalation DAILY SOB 07/08/23 03/25/25 History 62.5 mcg-vilant 25 mcg inhalat.powder (Trelegy Ellipta) rimegepant 75 mg disintegrating 75 mg PO DAILY PRN migraine 07/08/23 Unknown History tablet (Nurtec ODT) albuterol sulfate 90 mcg/actuation 2 puff inhalation Q4H PRN 02/13/24 Unknown History aerosol inhaler Shortness Of Breath diltiazem HCl 240 mg capsule,24 240 mg PO DAILY 02/19/24 03/25/25 History hr,extended release (Tiadylt ER) potassium chloride 20 mEq 20 meq PO DAILY #90 tabs 05/07/24 03/25/25 Rx tablet,extended release duloxetine 60 mg capsule,delayed 60 mg PO DAILY 09/30/24 03/25/25 History release metoprolol tartrate 50 mg tablet 50 mg PO BID #180 tabs 10/09/24 03/25/25 Rx apixaban 5 mg tablet (Eliquis) 5 mg PO BID #60 tabs 02/16/25 03/25/25 Rx cetirizine 10 mg tablet (24Hour 10 mg PO DAILY allergy 03/19/25 03/25/25 History Allergy) fluticasone propionate 50 2 spray intranasal DAILY 03/19/25 03/25/25 History mcg/actuation nasal spray,suspension (24 Hour Allergy Relief) furosemide 40 mg tablet 40 mg PO BID 03/19/25 03/25/25 History prednisone 20 mg tablet 40 mg (2 x 20 mg) PO DAILY #10 tabs 03/24/25 03/25/25 Rx furosemide 40 mg tablet (Lasix) 40 mg PO BID #60 tabs 03/25/25 Unknown Rx Allergy/AdvReac Type Severity Reaction Status Date / Time feathers Allergy Intermediate Shortness Verified 03/25/25 11:43 of breath house dust Allergy Unknown Verified 03/25/25 11:43 mold Allergy Unknown Verified 03/25/25 11:43 Family History Mother CAD (coronary artery disease) Diabetes C. difficile colitis Father CAD (coronary artery disease) Sister CAD (coronary artery disease) Brother , 62 Colon cancer Son , 45 Drug overdose Other Atrial fibrillation CHF (congestive heart failure) Cancer Heart disease Surgical History Hx of cardiac catheterization (~04/09/24) H/O left cataract extraction H/O right heart catheterization (~07/19/22) Hx of removal of ovary (~1994) History of appendectomy (~1994) Social History Smoking Status: Former smoker alcohol intake: current alcohol intake frequency: holidays/special occasions only substance use type: does not use caffeine: Yes Type: coffee Number of servings: 2 ROS ROS ED Constitutional Constitutional ED: Denies chills, fever(s) or sweats ENT ENT ED: Denies sore throat Cardiovascular Cardiovascular: Denies chest pain, leg edema, palpitations or racing heartbeat Respiratory/Chest Respiratory/Chest: Reports dyspnea; Denies cough or dyspnea on exertion Gastrointestinal Gastrointestinal: Denies abdominal pain, diarrhea, nausea or vomiting Genitourinary Genitourinary ED: Denies dysuria, hematuria or urinary frequency Musculoskeletal Musculoskeletal: Denies back pain, extremity pain or neck pain Integumentary Denies rash or wounds Neurologic Neurologic: Denies headache(s), paresthesias or weakness EXAM Physical Exam Const Vital Signs: 03/25/25 11:43 03/25/25 11:48 03/25/25 11:48 Temperature 98.3 F 98.3 F Temperature Source Oral Oral Pulse Rate 116 H 82 Respiratory Rate 16 15 Respiratory Effort Short of Breath Labored Respiratory Depth Shallow Respiratory Pattern Tachypnea Blood Pressure 157/84 H 157/84 H Blood Pressure Mean 108 108 Pulse Ox 97 97 Oxygen Delivery Method Nasal Cannula Nasal Cannula Nasal Cannula Oxygen Flow Rate (L/min) 4 4 4 03/25/25 12:39 03/25/25 13:00 03/25/25 14:00 Temperature Temperature Source Pulse Rate 82 74 71 Respiratory Rate 16 21 H 15 Respiratory Effort Respiratory Depth Respiratory Pattern Blood Pressure 152/73 H 132/53 H 115/69 Blood Pressure Mean 99 79 84 Pulse Ox 97 96 97 Oxygen Delivery Method Room Air Oxygen Flow Rate (L/min) 03/25/25 14:24 Temperature 98.2 F Temperature Source Pulse Rate 71 Respiratory Rate 15 Respiratory Effort Respiratory Depth Respiratory Pattern Blood Pressure 115/69 Blood Pressure Mean 84 Pulse Ox 97 Oxygen Delivery Method Oxygen Flow Rate (L/min) Positive well nourished and well developed Constitutional Narrative: 4 L oxygenation in no distress. General Appearance ED: well developed and NAD HEENT Reports moist mucous membranes normocephalic and atraumatic Eyes General Eye ED: Yes normal appearance of both eyes Neck full ROM Chest Wall Chest: Negative for tenderness Resp normal respiratory effort and normal air movement Effort and Inspection: symmetric chest movement; Negative for respiratory distress Cardio regular rate and no murmurs Rhythm: abnormal rhythm Peripheral Pulses: pulses 2+ throughout GI normal to inspection, nondistended, normoactive bowel sounds and non-tender Palpation: Negative for guarding or rebound tenderness present Extremity normal to inspection Extremity Narrative: 1+ lower extremity edema bilaterally. General Extremety ED: Yes edema; Negative for tenderness General Extremity: edema Neuro oriented x3 and no sensory deficits noted Sensorium / Orientation: awake and alert Skin no rashes or lesions noted and no wounds MDM MDM MDM Narrative Medical decision making narrative: Interventions / MDM: Differential diagnosis: COPD, CHF, chronic oxygenation, atrial fibrillation Diagnosis considered but do not suspect: N/A My EKG interpretation: Rate controlled A-fib 82, no ST or T wave changes. Imaging independently reviewed and interpreted by myself: 1 view chest x-ray: Stable trace left pleural effusion, no new process. External documents reviewed: N/A Test considered but not ordered:N/A ED course: Patient stable on 4 L oxygen symptoms worse with exertion she is on Eliquis compliant lower suspicion for PE. She is recovering from COPD and CHF. Leg swelling improving. Cough is improving. EKG is rate controlled I will check basic labs recheck chest x-ray. I discussed with social work in the ED to help clarify the confusion of needing home health care approval until she sees PCP. After speak with social work,. She has home health coming to the house tomorrow. She has PT and OT also available for her. She will check on oxygenation as they were told he needs 6 L with exertion especially if she leaves the home. Labs white count 25.9 up from 18 however she has been on steroids. Chest x-ray negative for any acute process. Patient seen by social work, able to discuss with oxygen company at [facility] new regulator was provided to increase oxygenation., Confirms PT OT and home health care to be there tomorrow. Patient to continue Lasix twice a day for now. Potassium daily. Outpatient follow-up. All questions were answered. Re-evaluation: stable Disposition discussed with patient/family/significant other: Patient and family Case discussed with consulting clinician: Licensed social work This note was generated with [employer] dictation software. It may contain incorrect words, spelling, and punctuation that were not noted in checking the note before signing. Lab Data Attestation: I reviewed the patient's lab results. Labs: Laboratory Results - last 24 hr 04/30/25 11:58 WBC 25.9 H RBC 4.47 Hgb 12.8 Hct 41.5 MCV 92.8 MCH 28.6 MCHC 30.8 L RDW Std Deviation 47.7 H RDW Coeff of Beena 14.1 Plt Count 414 MPV 9.9 Immature Gran % (Auto) 0.800 Neut % (Auto) 87.0 H Lymph % (Auto) 4.2 L [place] % (Auto) 7.8 Eos % (Auto) 0.0 Baso % (Auto) 0.2 Absolute Neuts (auto) 22.6 H Absolute Lymphs (auto) 1.08 Nucleated RBC % 0 Differential Comment COMMENT Sodium 135 Potassium 4.9 Chloride 87 L Carbon Dioxide 38.5 H Anion Gap 9 BUN 33 H Creatinine 0.80 Estim Creat Clear Calc 74.62 Est GFR (MDRD) Non-Af 78 BUN/Creatinine Ratio 41.3 H Glucose 188 H Calcium 9.3 Radiography Diagnostic Testing: Clinical Impression(s) from Imaging Studies Chest X-Ray 03/25/25 12:25 IMPRESSION: Similar appearance of the chest as above including questioned trace to small LEFT pleural effusion versus minimal basilar airspace disease. Reading Location: [facility] Discharge Plan Triage Chief Complaint: Shortness of Breath ED Provider: Jose Armando Wood Dx/Rx/DC Orders Clinical Impression: CHF (congestive heart failure), Atrial fibrillation, Chronic hypoxic respiratory failure, on home oxygen therapy, Chronic anticoagulation Instructions: AFib Dc, ED Heart Failure, Congestive (CHF) Prescriptions: New furosemide [Lasix] 40 mg tablet 40 mg PO BID Qty: 60 0RF No Action diltiazem HCl [Tiadylt ER] 240 mg capsule,extended release 24 hr 240 mg PO DAILY potassium chloride 20 mEq tablet extended release 20 meq PO DAILY Qty: 90 3RF Patient Comments: WHEN PT TAKES FUROSEMIDE, SHE TAKES POTASSIUM WELL, CURRENTLY ONCE IN AM, AND ONCE AT NOON duloxetine 60 mg capsule,delayed release(DR/EC) 60 mg PO DAILY montelukast 10 MG tablet 10 mg PO QHS albuterol sulfate 90 mcg/actuation HFA aerosol inhaler 2 puff Inhalation Q4H PRN (Reason: Shortness Of Breath) Nurtec ODT 75 mg tablet,disintegrating 75 mg PO DAILY PRN (Reason: migraine) Patient Comments: TAKE 1 (ONE) TABLET BY MOUTH DAILY IF NEEDED FOR MIGRAINE Trelegy Ellipta 200-62.5-25 mcg blister with device 1 inh inhalation DAILY fluticasone propionate [24 Hour Allergy Relief] 50 mcg/actuation spray,suspension 2 spray intranasal DAILY Rx Instructions: administer into each nostril furosemide 40 mg tablet 40 mg PO BID Rx Instructions: TAKE 1 TAB IN MORNING, AND 1 TAB IN AFTERNOON. 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 You have home therapy, and tomorrow with PT OT. Your oxygen situation has been clarified with [facility]. Use your Lasix twice a day. Potassium once a day. Finish your steroids. As noted 4 L nasal cannula at rest up to 6 L with activity. Follow-up with your doctors. Print Language: Slovenian Disposition Disposition: Home, Self Care Discharge Date/Time: 03/25/25 15:24
[2025-03-25 13:00] VITALS: BP 132/53; PULSE 74; RESP 21; O2SAT 96
[2025-03-25 13:29] LABS: Anion Gap 9 (5-15); BUN 33 mg/dL (4-19); BUN/Creat Ratio 41.3 RATIO (10-20); Calcium,Total 9.3 mg/dL (7.6-11.0); Carbon Dioxide 38.5 mmol/L (21.0-32.0); Chloride 87 mmol/L (98-108); EST Glomerular Filtration Rate 78 (>60); Estimated Creatinine Clearance 74.62 ml/min (50-250); Glucose 188 mg/dL (70-99); Potassium 4.9 mmol/L (3.3-5.1); Sodium Level 135 mmol/L (133-145)
[2025-03-25 14:00] VITALS: BP 115/69; PULSE 71; RESP 15; O2SAT 97
[2025-03-25 14:24] VITALS: BP 115/69; PULSE 71; RESP 15; TEMP 36.8; O2SAT 97
--- NOTE | 2025-03-25 18:17 | CM.ED ---
Social Work SW met with patient, patients , and patients daughter. Patient stated that she was attempting to leave for an appointment today using her portable oxygen, and felt she was not getting enough oxygen and felt short of breath. Patient and requesting clarification on capabilities of portable oxygen and how high they are able to go. Jewel from [facility] was contacted as patient had discharged from [facility] yesterday and [facility] was providing O2 services. [facility] was able to ensure that patient had appropriate equipment to adequately cover oxygen needs when mobile. Patient also told SW that she was supposed to go see her PCP today, however was not able to make the appointment and was concerned that her HH services would be postponed. NORBERTO contacted [facility] HH and was told they would still plan on seeing patient on as originally set up and would contact patients PCP to reschedule appointment. Patient notified of same. NO further needs identified at this time. Xochitl Lindsay, DIRECTOR OF GRADUATE ADMISSIONS, INTAKE NURSE
== END 2025-03-25 15:24 | disposition home or self-care (01) ==
PROVIDERS: Emergency Provider Emergency Medicine; PCP Family Medicine; Visit Provider Emergency Medicine
DX: I11.0 Hypertensive heart disease with heart failure (principal); J96.11 Chronic respiratory failure with hypoxia; I50.9 Heart failure, unspecified; J44.9 Chronic obstructive pulmonary disease, unspecified; I48.91 Unspecified atrial fibrillation; Z79.01 Long term (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 anticoagulants; Z99.81 Dependence on supplemental oxygen; Z87.891 Personal history of nicotine dependence
CPT/HCPCS: 71045; 80048; 85025; 93005; 99285; A4216

== ENCOUNTER → 2025-03-30 | Outpatient (CLI) | payer MEDICARE, SELFPAY ==
[2024-08-18 10:21] VITALS: BMI 40.8
--- NOTE | 2025-03-30 13:25 | RAD_ITS ---
PROCEDURE: 03/30/2025 REASON FOR EXAM: DIMINISHED LUNG SOUNDS TECHNIQUE: Frontal and lateral views of the chest. COMPARISON: Chest x-ray dated 03/25/2025. FINDINGS: The cardiac silhouette is moderately enlarged. No focal consolidation is seen within the lungs. There are small bilateral pleural effusions. Vascular congestion appears present. Underlying hyper lucency is present within the lungs. No acute osseous abnormality is seen. RAD/Chest PA and Lateral IMPRESSION: Markedly enlarged cardiac silhouette with congestion and small bilateral effusi ons may suggest CHF/pulmonary edema. Correlate clinically. Underlying COPD may be present. Reading Location: [id number]
== END | disposition home or self-care (01) ==
PROVIDERS: PCP Family Medicine; Referring Provider Internal Medicine Pulmonary Disease; Visit Provider Family Medicine
DX: J44.1 Chronic obstructive pulmonary disease with (acute) exacerbation (principal)
CPT/HCPCS: 71046

== ENCOUNTER → 2025-03-31 | Outpatient (CLI) | payer MEDICARE, SELFPAY ==
[2024-08-18 10:21] VITALS: BMI 40.8
[2025-03-31 15:32] LABS: International Normalized Ratio 1.2; Prothrombin Time (Protime)PT. 15.8 SECONDS (11.7-14.9)
== END | disposition home or self-care (01) ==
LOC: MFPLAB 11:57
PROVIDERS: PCP Family Medicine; Referring Provider Family Medicine; Visit Provider Family Medicine
DX: I48.91 Unspecified atrial fibrillation (principal)
CPT/HCPCS: 36415; 85610

== ENCOUNTER → 2025-04-03 | Outpatient (CLI) | payer MEDICARE, SELFPAY ==
[2024-08-18 10:21] VITALS: BMI 40.8
[2025-04-03 16:54] LABS: Anion Gap 6 (5-15); BUN 23 mg/dL (4-19); Calcium,Total 9.2 mg/dL (7.6-11.0); Carbon Dioxide 41.7 mmol/L (21.0-32.0); Chloride 90 mmol/L (98-108); Creatinine, Serum 0.78 mg/dL (0.70-1.20); EST Glomerular Filtration Rate 81 (>60); Glucose 237 mg/dL (70-99); Potassium 5.1 mmol/L (3.3-5.1); Sodium Level 137 mmol/L (133-145)
== END | disposition home or self-care (01) ==
LOC: LAB 14:33
PROVIDERS: PCP Family Medicine; Referring Provider Nurse Practitioner Gerontology; Visit Provider Nurse Practitioner Gerontology
DX: R60.0 Localized edema (principal)
CPT/HCPCS: 36415; 80048

== ENCOUNTER 2025-04-05 20:26 | Inpatient (IN) | payer MEDICARE, SELFPAY ==
[2024-08-18 10:21] VITALS: BMI 40.8
[2025-04-05] VITALS (9 sets, daily range): BP systolic 110–160; BP diastolic 52–89; PULSE 85–117; RESP 13–22; TEMP 36.5–36.8; O2SAT 96–99; BMI 49.0
--- NOTE | 2025-04-05 20:34 | EKG12_ITS ---
Test Reason : SOB Blood Pressure : */* mmHG Vent. Rate : 97 BPM Atrial Rate : * BPM P-R Int : * ms QRS Dur : 88 ms QT Int : 316 ms P-R-T Axes : * 59 30 degrees QTcB Int : 401 ms Atrial fibrillation Low voltage QRS Abnormal ECG Confirmed by Yasmani Bruno ([id number]), editor newspaper SHANNAN MAN ([id number]) on 04/06/2025 9:25:24 AM Referred By: Morales Bolden Confirmed By: Yasmani Bruno
--- NOTE | 2025-04-05 20:36 | ED.VIS.DYS ---
HPI History of Present Illness Chief Complaint: Shortness of Breath Informant: patient, family and EMS Narrative Narrative: 69-year-old female presenting for dyspnea. She was in the hospital and discharged almost 2 weeks ago, for similar issues, has continued to have dyspnea with exertion, and was told to stay at 4 L of oxygen when she is at rest and bump it up to 6 whenever she walks around the house or does some light exertion. She is frequently checking her pulse oximetry. Tonight she turned up to 6 to walk and when she got back to her chair, she was very out of breath, she checked her pulse ox and it was down as low as the 40% range and would not come back up and she was continuing to be worse with regards to her dyspnea and therefore EMS was called. They gave a DuoNeb, shortened the amount of tubing that she was on and put her on their oxygen at 6 L and upon getting here after the nebulizer she is at 96% but she still very dyspneic although she states the DuoNeb did seem to help a little. She denies any chest pain. She has had significant edema of her legs ever since she was in the hospital that has not really changed, family states her weight went down a little bit but has gone back up since, now similar to when she was discharged from the hospital. She denies any presyncope or syncope but states she has paroxysmal atrial fibrillation and feels like she has been in A-fib all day today. She states this is not usually the case for her. [facility] Medical History Chronic anticoagulation Elevated troponin Morbid obesity with BMI of 45.0-49.9, adult COPD exacerbation CHF (congestive heart failure) Atrial fibrillation Acute dyspnea Edema of both legs Coronary artery disease Atrial fibrillation Hypertension Abnormal stress test Atrial fibrillation with rapid ventricular response Tachycardia Asthma Chronic airway obstruction Motion sickness Osteopenia Sleep apnea GERD (gastroesophageal reflux disease) Morbid obesity Anxiety Fatigue Smoker Depression Migraines Acute respiratory failure with hypoxia COPD exacerbation Acute sinusitis Cellulitis of left forearm Cellulitis and abscess of face Urinary tract infection Septic olecranon bursitis of right elbow Olecranon bursitis of right elbow Bursitis Sebaceous cyst of axilla Back pain Bronchitis URI (upper respiratory infection) Knee pain Hemorrhoids SOB (shortness of breath) Lung disease Arthritis Home Medications ?Medication ?Instructions ?Recorded ?Last Taken ?Type montelukast 10 mg tablet 10 mg PO QHS allergies 09/07/18 03/24/25 History fluticasone fur. 200 mcg-umeclid 1 inh inhalation DAILY SOB 07/08/23 03/25/25 History 62.5 mcg-vilant 25 mcg inhalat.powder (Trelegy Ellipta) rimegepant 75 mg disintegrating 75 mg PO DAILY PRN migraine 07/08/23 Unknown History tablet (Nurtec ODT) albuterol sulfate 90 mcg/actuation 2 puff inhalation Q4H PRN 02/13/24 Unknown History aerosol inhaler Shortness Of Breath diltiazem HCl 240 mg capsule,24 240 mg PO DAILY 02/19/24 03/25/25 History hr,extended release (Tiadylt ER) potassium chloride 20 mEq 20 meq PO DAILY #90 tabs 05/07/24 03/25/25 Rx tablet,extended release duloxetine 60 mg capsule,delayed 60 mg PO DAILY 09/30/24 03/25/25 History release metoprolol tartrate 50 mg tablet 50 mg PO BID #180 tabs 10/09/24 03/25/25 Rx apixaban 5 mg tablet (Eliquis) 5 mg PO BID #60 tabs 02/16/25 03/25/25 Rx cetirizine 10 mg tablet (24Hour 10 mg PO DAILY allergy 03/19/25 03/25/25 History Allergy) fluticasone propionate 50 2 spray intranasal DAILY 03/19/25 03/25/25 History mcg/actuation nasal spray,suspension (24 Hour Allergy Relief) furosemide 40 mg tablet 40 mg PO BID 03/19/25 03/25/25 History prednisone 20 mg tablet 40 mg (2 x 20 mg) PO DAILY #10 tabs 03/24/25 03/25/25 Rx furosemide 40 mg tablet (Lasix) 40 mg PO BID #60 tabs 03/25/25 Unknown Rx Allergy/AdvReac Type Severity Reaction Status Date / Time feathers Allergy Intermediate Shortness Verified 04/05/25 20:27 of breath house dust Allergy Unknown Verified 04/05/25 20:27 mold Allergy Unknown Verified 04/05/25 20:27 Family History Mother CAD (coronary artery disease) Diabetes C. difficile colitis Father CAD (coronary artery disease) Sister CAD (coronary artery disease) Brother , 62 Colon cancer Son , 45 Drug overdose Other Atrial fibrillation CHF (congestive heart failure) Cancer Heart disease Surgical History Hx of cardiac catheterization (~04/09/24) H/O left cataract extraction H/O right heart catheterization (~07/19/22) Hx of removal of ovary (~1994) History of appendectomy (~1994) Social History Smoking Status: Former smoker alcohol intake: current alcohol intake frequency: holidays/special occasions only substance use type: does not use caffeine: Yes Type: coffee Number of servings: 2 ROS ROS ED Constitutional Constitutional ED: Denies chills or fever(s) Eyes Eyes: Denies change in vision or diplopia ENT ENT ED: Denies rhinorrhea or sore throat Cardiovascular Cardiovascular: Reports leg edema, palpitations and racing heartbeat; Denies chest pain, lightheadedness or syncope Respiratory/Chest Respiratory/Chest: Reports dyspnea and dyspnea on exertion; Denies cough Gastrointestinal Gastrointestinal: Denies abdominal pain, diarrhea, nausea or vomiting Genitourinary Genitourinary ED: Denies dysuria or hematuria Musculoskeletal Musculoskeletal: Denies back pain or neck pain Integumentary Denies abscess or rash Neurologic Neurologic: Denies headache(s), paresthesias or weakness Psychiatric Psychiatric: Denies suicidal thoughts EXAM Physical Exam Const Vital Signs: 04/05/25 20:27 04/05/25 20:30 04/05/25 20:40 Temperature 98.3 F 98.3 F Temperature Source Oral Oral Pulse Rate 87 87 117 H Respiratory Rate 22 H 22 H 18 Respiratory Effort Respiratory Depth Respiratory Pattern Normal Blood Pressure 160/89 H 160/89 H Blood Pressure Mean 112 112 Pulse Ox 97 97 Oxygen Delivery Method Nasal Cannula Oxygen Flow Rate (L/min) 6 Fraction of Inspired Oxygen (FIO2) 04/05/25 20:40 04/05/25 20:48 04/05/25 20:51 Temperature Temperature Source Pulse Rate 87 Respiratory Rate 18 Respiratory Effort Short of Breath Respiratory Depth Normal Respiratory Pattern Normal Normal Blood Pressure Blood Pressure Mean Pulse Ox 98 98 Oxygen Delivery Method Nasal Cannula Venturi Mask Oxygen Flow Rate (L/min) 6 6 Fraction of Inspired Oxygen (FIO2) 50 04/05/25 21:30 04/05/25 22:00 04/05/25 22:00 Temperature 98.1 F 97.7 F L Temperature Source Temporal Oral Pulse Rate 100 97 89 Respiratory Rate 19 H 14 16 Respiratory Effort Respiratory Depth Respiratory Pattern Blood Pressure 149/70 H 121/52 H 121/52 H Blood Pressure Mean 96 75 75 Pulse Ox 98 98 97 Oxygen Delivery Method Airvo Airvo Oxygen Flow Rate (L/min) 50 50 Fraction of Inspired Oxygen (FIO2) 50 50 04/05/25 22:54 Temperature 98 F Temperature Source Oral Pulse Rate 85 Respiratory Rate 13 Respiratory Effort Respiratory Depth Respiratory Pattern Blood Pressure 116/58 L Blood Pressure Mean 77 Pulse Ox 99 Oxygen Delivery Method Airvo Oxygen Flow Rate (L/min) 50 Fraction of Inspired Oxygen (FIO2) 50 Positive well nourished, well developed and obese Constitutional Narrative: Mild respiratory distress, speaking in 7-10 word sentences General Appearance ED: well developed Nutritional Appearance: obese HEENT Reports moist mucous membranes normocephalic and atraumatic Eyes PERRL and EOMs intact bilaterally Neck full ROM, supple and no JVD Resp Resp Narrative: Diffusely diminished and sounds tight with end expiratory wheezes. Mild respiratory distress. Trachea midline equal breath sounds bilaterally. Cardio Cardio Narrative: Faint heart sounds Rate: tachycardic Rhythm: abnormal rhythm irregularly irregular GI non-tender and non-distended Auscultation: normoactive bowel sounds Palpation: soft Back/Spine no CVA tenderness General Back: other FROM Extremity normal to inspection General Extremety ED: Yes edema; Negative for pulses abnormal or tenderness General Extremity: edema bilateral lower extremity Details: moderate; Negative for pulses abnormal Neuro oriented x3, CN's II-XII intact bilaterally and no sensory deficits noted Sensorium / Orientation: awake and alert Motor Exam: strength 5/5 throughout Psych mental status grossly normal Skin no rashes or lesions noted and no wounds Sepsis Attestation Sepsis Attestation: Agree w/Sepsis Date exam was performed: 04/05/25 Time exam was performed: 22:15 Possible Source of Sepsis: Pulmonary Sepsis Organ Dysfunction Criteria Present: Acute Respiratory Failure (New need for BiPAP/CPAP or MV) and Lactic Acid > 2 mmol/L Fluid Resuscitation Fluid Resuscitation ordered: Fluids not indicated (significant BLE edema, stable HR/BP) Reason for lesser fluid bolus:: Concern for fluid overload MDM MDM MDM Narrative Medical decision making narrative: Had respiratory give the patient some aerosols and we also gave her an injection of terbutaline, as she was very tight and having trouble breathing. Respiratory was considering BiPAP we tried Airvo high flow nasal cannula first, which really seem to help the patient, she is satting 98% on 50 L Airvo. She states it is helping her breathing. Her white blood count returned at 25.4 and she is hyperglycemic at 305. She confirms that she is still on prednisone, she states she is at the end of the taper and only has a couple days left. Her leukocytosis could be a combination of stress from respiratory distress as well as the steroids, she does not have any urinary symptoms or signs of infection anywhere else in 1 view chest x-ray on my interpretation shows some atelectasis at the bases but no obvious consolidation, radiology in agreement also no pneumothorax. Her proBNP is abnormal but when corrected for age, is inconsistent with acute decompensated congestive heart failure. Lactic acid is a little elevated at 2.5. Therefore, we are going to boost her steroids with Solu-Medrol and I will provide empiric antibiotics, discussed with hospitalist for admission. History & Record Review Additional record(s) reviewed:: Other (Echo several weeks ago showing EF 65%, RV systolic pressure 50, limited evaluation of diastolic function) Lab Data Attestation: I reviewed the patient's lab results. Labs: Laboratory Results - last 24 hr 04/05/25 20:34 WBC 25.4 H RBC 4.04 L Hgb 11.7 L Hct 38.9 MCV 96.3 MCH 29.0 MCHC 30.1 L RDW Std Deviation 53.1 H RDW Coeff of Beena 15.1 H Plt Count 367 MPV 9.8 Immature Gran % (Auto) 1.200 H Neut % (Auto) 92.3 H Lymph % (Auto) 2.2 L [place] % (Auto) 4.1 Eos % (Auto) 0.0 Baso % (Auto) 0.2 Absolute Neuts (auto) 23.4 H Absolute Lymphs (auto) 0.57 L Nucleated RBC % 0 Differential Comment SCANNED Platelet Estimate ADEQUATE Basophilic Stippling RARE Anisocytosis 1+ Stomatocytes 2+ Sodium 138 Potassium 4.7 Chloride 89 L Carbon Dioxide 42.2 H Anion Gap 7 BUN 23 H Creatinine 0.77 Estim Creat Clear Calc 77.14 Est GFR (MDRD) Non-Af 82 BUN/Creatinine Ratio 29.9 H Glucose 305 H Lactic Acid 2.5 H* Calcium 9.2 Troponin T High Sens 10 D NT pro BNP II 1349 H Radiography Diagnostic Testing: Clinical Impression(s) from Imaging Studies Chest X-Ray 04/05/25 21:20 IMPRESSION: No Acute Findings. Reading Location: [facility] Rhythm Strip Rhythm Strip: A-fib Rate: 97 Ectopy: None EKG Initial EKG: Attestation: I personally reviewed and interpreted this EKG as follows: Interpretation: No Acute Injury Pattern and Atrial Fibrillation (90's) Prior EKG tracings: available for review Prior: Unchanged Management Discussion w/another healthcare provider: Hospitalist Critical Care Time Critical Care Time: Yes Critical care time (excluding procedures): 30-74 minutes (32 min), Including time spent:, Discussing w/Patient &/or Family/Senior National Account Manager, Discussing w/Consultants, Arranging Admission or Transfer and Performing Direct Patient Care at Bedside Discharge Plan Dx/Rx/DC Orders Clinical Impression: Acute hypoxic respiratory failure, Atrial fibrillation, Bilateral edema of lower extremity, Acute exacerbation of chronic obstructive pulmonary disease (COPD) Disposition Disposition: [facility]
[2025-04-05] MEDS: Terbutaline 1 MG/ML Vial 0.25 MG SC (20:41)
[2025-04-05 20:44] LABS: Absolute Lymphocyte Count 0.57 X10^3/uL (0.83-4.51); Absolute Neutrophil Count 23.4 X10^3/uL (2.0-7.7); Basophil# 0.06 X10^3/uL; Basophil% 0.2 % (0-1); Hematocrit 38.9 % (37-47); Hemoglobin 11.7 g/dL (12.0-15.0); Lymphocyte # 0.57 X10^3/ul (0.83-4.51); Lymphocyte % 2.2 % (19-41); Mean Corp Hgb Conc 30.1 g/dL (32-36); Mean Corpuscular Volume 96.3 fL (81-99); Mean Platelet Vol. 9.8 fl (6.2-12.0); Monocyte# 1.04 X10^3/uL; Monocyte% 4.1 % (0-10); NRBC Flagged by Analyzer 0 % (0-5); Neutrophil # 23.37 X10^3/uL (2.7-7.7); Neutrophil % 92.3 % (47-70); POSITIVE DIFFERENTIAL YES; Platelet Count 367 K/mm3 (150-450); RBC Distribution Width CV 15.1 % (11.6-14.6); RBC Distribution Width SD 53.1 fl (35.1-43.9); Red Blood Count 4.04 M/mm3 (4.2-5.4); White Blood Count 25.4 K/mm3 (4.4-11.0)
[2025-04-05 20:45] LABS: Differential Indicated SCAN CRITERIA MET
[2025-04-05] MEDS: Albuterol 2.5 MG/3 ML VIAL.NEB. INHALATION ×3 (20:46→21:17)
[2025-04-05 21:17] LABS: Anion Gap 7 (5-15); BUN 23 mg/dL (4-19); BUN/Creat Ratio 29.9 RATIO (10-20); Calcium,Total 9.2 mg/dL (7.6-11.0); Carbon Dioxide 42.2 mmol/L (21.0-32.0); Chloride 89 mmol/L (98-108); Creatinine, Serum 0.77 mg/dL (0.70-1.20); EST Glomerular Filtration Rate 82 (>60); Estimated Creatinine Clearance 77.14 ml/min (50-250); Glucose 305 mg/dL (70-99); Potassium 4.7 mmol/L (3.3-5.1); Sodium Level 138 mmol/L (133-145)
--- NOTE | 2025-04-05 21:20 | RAD_ITS ---
PROCEDURE: CHEST 1 VIEW (PORTABLE) 04/05/2025 REASON FOR EXAM: SOB TECHNIQUE: Frontal view of the chest. COMPARISON: 03/30/2025 FINDINGS: Hardware: None Heart: Heart size is mildly enlarged. Lungs: Mild bibasilar atelectasis. No focal consolidation. No pneumothorax. No pleural effusion. Bones: The bones are unremarkable. Other: RAD/Chest 1 View (Portable) IMPRESSION: No Acute Findings. [facility]
[2025-04-05 21:35] LABS: Anisocytosis 1+; Basophilic Stippling RARE; Differential Comment SCANNED; Platelet Estimate ADEQUATE (ADEQ); Stomatocyte 2+
[2025-04-05 21:51] LABS: Pro- Brain NATRIURETIC PEPTIDE 1349 pg/mL (<=900); Troponin T High Sensitivity 10 ng/L (<=14)
[2025-04-05] MEDS: Piperacil/Tazobactam 4.5 GM in 0.9% Normal Saline (100mL MB+) 100 ML IV (22:02)
[2025-04-05] MEDS: MethylPREDNISolone 125 MG/2 ML Vial IV (22:02)
[2025-04-05 22:15] LABS: Lactic Acid 2.5 mmol/L (0.0-2.0)
--- NOTE | 2025-04-05 22:58 | HP.PCM.HOS_ITS ---
[facility] - General General Date of Admission: 04/05/25 Date of Service: 04/05/25 Chief Complaint: SOB. [facility] Narrative PIPER OLIVER, is a 69 F with a past medical history of essential hypertension; on metoprolol and furosemide, history of hyperlipidemia; currently not on treatment, morbid obesity; with BMI of 49 this admission, WINIFRED, chronic atrial fibrillation; on diltiazem and apixaban, CAD, history of tobacco abuse; with subsequent asthma/COPD; on 4L NC at baseline on Trelegy Ellipta and as needed albuterol, narcolepsy; on modafinil, seasonal allergies; on montelukast, migraine headaches; on Nurtec ODT daily, depression; on duloxetine, history of cellulitis, history of septic olecranon bursitis of the Right elbow, history of hemorrhoids, history of appendectomy (~1994), history of Right heart catheterization (~2021) history of removal of ovary (~1994), history of GERD; currently not on treatment, osteopenia, OA; with chronic back pain on acetaminophen twice daily and recent admission here from March 19, 2025 to March 24, 2025 for treatment of AE COPD with elevated NT pro-BNP II of 1,003 pg/mL and mildly elevated troponin T of 19 bg/L complicated by Qslma-ts-Sgnvyco Respiratory Insufficiency with LVEF ~65% and RVSP of ~50 mmHg with inability to evaluate for diastolic dysfunction who re-presents to [facility] ER complaining of shortness of breath, wheezing and lower extremity edema. Ms. Oliver reports her symptoms began this afternoon as she was trying to get up and walk which caused her to increase her supplemental oxygen to 6L NC when she suddenly became very SOB. She alleges her pulse-oximeter was reading in the ~40% range so she then activated EMS. The squad treated her with a DuoNeb and put her on 6L NC with an oxygen saturation of 96% - but with patient still very dyspneic. Her family noted she seemed to worsen when her steroids were tapered. Her LE edema present last admission has not significantly changed but she feels like she was in atrial fibrillation all day. She denies associated fever, chills, runny nose, sore throat, abdominal pain, nausea, vomiting, diarrhea, constipation, dysuria, hematuria, urinary frequency, headache or rash. In the ER she was noted to have clinical evidence of AE COPD complicated by an elevated NT pro-BNP II of 1,349 pg/mL present on admission with a corresponding CXR that revealed no acute findings recommended compounded by laboratory evidence of Leukocytosis of 25.4K with Left-shift of 1.2% along with Lactic Acidosis of 2.5 mmol/L with no signs of infection suspected to be due to recent steroid administration with all of these issues culminating to Acute Hypoxic Respiratory Failure requiring Airvo 50L with no ABG checked prior in the setting of OHS compounded by CT evidence of newly diagnosed ~1.4 cm Pericardial Effusion. She was then admitted to the PCU for ongoing care for a stay that is expected to extend beyond 2 midnights. [facility] Medical History (Updated 04/06/25 @ 05:[address] Morales Bolden, ) Morbid obesity with BMI of 45.0-49.9, adult Chronic anticoagulation Elevated troponin COPD exacerbation CHF (congestive heart failure) Atrial fibrillation Acute dyspnea Edema of both legs Coronary artery disease Atrial fibrillation Hypertension Abnormal stress test Atrial fibrillation with rapid ventricular response Tachycardia Asthma Chronic airway obstruction Motion sickness Osteopenia Sleep apnea GERD (gastroesophageal reflux disease) Morbid obesity Anxiety Fatigue Smoker Depression Migraines Acute respiratory failure with hypoxia COPD exacerbation Acute sinusitis Cellulitis of left forearm Cellulitis and abscess of face Urinary tract infection Septic olecranon bursitis of right elbow Olecranon bursitis of right elbow Bursitis Sebaceous cyst of axilla Back pain Bronchitis URI (upper respiratory infection) Knee pain Hemorrhoids SOB (shortness of breath) Lung disease Arthritis Home Medications ?Medication ?Instructions ?Recorded ?Last Taken ?Type montelukast 10 mg tablet 10 mg PO QHS allergies 09/0704/04/25 History fluticasone fur. 200 mcg-umeclid 1 inh inhalation BATSHEVA Y SOB 07/08/23 04/05/25 History 62.5 mcg-vilant 25 mcg inhalat.powder (Trelegy Ellipta) rimegepant 75 mg disintegrating 75 mg PO DAILY PRN olesya tamika 07/08/23 Unknown History tablet (Nurtec ODT) albuterol sulfate 90 mcg/actuation 2 puff inhalation Q 4H PRN 02/13/24 04/05/25 History aerosol inhaler Shortness Of Breath diltiazem HCl 240 mg capsule,24 240 mg PO DAILY heart rate 02/19/24 04/05/25 History hr,extended release (Tiadylt ER) potassium chloride 20 mEq 20 meq PO DAILY #90 tabs 11/1804/05/25 Rx tablet,extended release duloxetine 60 mg capsule,delayed 60 mg PO DAILY mood 1 11/30/23 04/05/25 History release metoprolol tartrate 50 mg tablet 50 mg PO BID #180 tab s 10/09/24 04/05/25 Rx apixaban 5 mg tablet (Eliquis) 5 mg PO BID #60 tabs 04/05/25 Rx fluticasone propionate 50 2 spray intranasal QHS nasal 03/19/25 04/04/25 History mcg/actuation nasal spray,suspension (24 Hour Allergy Relief) furosemide 40 mg tablet 40 mg PO BID water pill 02/2504/05/25 History prednisone 20 mg tablet 40 mg (2 x 20 mg) PO DAILY # 10 tabs 03/24/25 04/05/25 Rx furosemide 40 mg tablet (Lasix) 40 mg PO BID #60 tabs 03/25/25 Unknown Rx Allergy/AdvReac Type Severity Reaction Status Date / Time feathers Allergy Intermediate Shortness Verified 04/05/25 20:27 of breath house dust Allergy Unknown Verified 04/05/25 20:27 mold Allergy Unknown Verified 04/05/25 20:27 Family History Mother CAD (coronary artery disease) Diabetes C. difficile colitis Father CAD (coronary artery disease) Sister CAD (coronary artery disease) Brother , 62 Colon cancer Son , 45 Drug overdose Other Atrial fibrillation CHF (congestive heart failure) Cancer Heart disease Surgical History Hx of cardiac catheterization (~04/09/24) H/O left cataract extraction H/O right heart catheterization (~07/19/22) Hx of removal of ovary (~1994) History of appendectomy (~1994) Social History Smoking Status: Former smoker alcohol intake: current alcohol intake frequency: holidays/special occasions only substance use type: does not use caffeine: Yes Type: coffee Number of servings: 2 ROS ROS Narrative Review of Systems: Constitutional: Patient denies fever or chills. Eyes: Patient denies changes in vision or discharge from eyes. ENT: Patient denies runny nose, sore throat or ear pain. Resp: Patient admits to shortness of breath and wheezing but she denies cough. CV: Patient admits to lower extremity edema and palpitations with heart racing but she denies chest pain, lightheadedness, syncope or near syncope. GI: Patient denies abdominal pain, nausea, vomiting, diarrhea or constipation. : Patient denies dysuria hematuria. MSK: Patient denies arthralgias or myalgias. Skin: Patient denies rash, abscess, wounds or jaundice. Psych: Patient denies symptoms of uncontrolled depression or anxiety. Neuro: Patient denies headache, paresthesias or focal neurologic weakness. Allergy: Patient denies lip swelling, tongue swelling or urticaria. Hematology: Patient denies easy bleeding or easy bruisability. Endocrinology: Patient denies polyuria, polydipsia, polyphagia or heat/cold intolerance. 14 point ROS otherwise negative except for positives noted above in HPI. Vital Signs Vital Signs Vital Signs: 04/05/25 20:27 04/05/25 20:30 04/05/25 20:40 Temperature 98.3 F 98.3 F Temperature Source Oral Oral Pulse Rate 87 87 117 H Respiratory Rate 22 H 22 H 18 Respiratory Effort Respiratory Depth Respiratory Pattern Normal Blood Pressure 160/89 H 160/89 H Blood Pressure Mean 112 112 Pulse Ox 97 97 Oxygen Delivery Method Nasal Cannula Oxygen Flow Rate (L/min) 6 Fraction of Inspired Oxygen (FIO2) 04/05/25 20:40 04/05/25 20:48 04/05/25 20:51 Temperature Temperature Source Pulse Rate 87 Respiratory Rate 18 Respiratory Effort Short of Breath Respiratory Depth Normal Respiratory Pattern Normal Normal Blood Pressure Blood Pressure Mean Pulse Ox 98 98 Oxygen Delivery Method Nasal Cannula Venturi Mask Oxygen Flow Rate (L/min) 6 6 Fraction of Inspired Oxygen (FIO2) 50 04/05/25 21:30 04/05/25 22:00 04/05/25 22:00 Temperature 98.1 F 97.7 F L Temperature Source Temporal Oral Pulse Rate 100 97 89 Respiratory Rate 19 H 14 16 Respiratory Effort Respiratory Depth Respiratory Pattern Blood Pressure 149/70 H 121/52 H 121/52 H Blood Pressure Mean 96 75 75 Pulse Ox 98 98 97 Oxygen Delivery Method Airvo Airvo Oxygen Flow Rate (L/min) 50 50 Fraction of Inspired Oxygen (FIO2) 50 50 04/05/25 22:54 Temperature 98 F Temperature Source Oral Pulse Rate 85 Respiratory Rate 13 Respiratory Effort Respiratory Depth Respiratory Pattern Blood Pressure 116/58 L Blood Pressure Mean 77 Pulse Ox 99 Oxygen Delivery Method Airvo Oxygen Flow Rate (L/min) 50 Fraction of Inspired Oxygen (FIO2) 50 Weight Weight: 259 lb 7.745 oz Body Mass Index (BMI) 49.0 Physical Exam Const alert, oriented x3 and no apparent distress Constitutional Narrative: Morbidly obese and nontoxic in appearance on Airvo. General Appearance: cooperative HEENT normocephalic, head/scalp atraumatic, hearing grossly normal bilaterally and moist oral mucous membranes Eyes PERRL, EOMs intact bilaterally and conjunctivae normal Neck no lymphadenopathy and supple Resp Resp Narrative: Diminished breath sounds throughout with expiratory wheezes. Auscultation: wheezes Cardio Cardio Narrative: Irregularly irregular. GI normal to inspection, nondistended, normoactive bowel sounds, soft to palpation, non-tender and non-distended GI Narrative: Morbidly obese. Extremity Extremity Narrative: ~1+ bilateral symmetrical lower extremity pitting edema. Skin Skin Narrative: Patient has no evidence of rash, abscess, wounds or jaundice. Neuro oriented x3, CN's II-XII intact bilaterally, moves all extremities and no focal motor deficits Sensorium / Orientation: awake, alert, oriented to person, oriented to place and oriented to time Speech: speech normal Psych affect normal Results Medical Records Data Attestation: I reviewed the patient's medical records Lab / Micro Data Attestation: I reviewed the patient's lab results. 04/06/25 04:45 04/06/25 04:45 Labs: Laboratory Results - last 24 hr 04/05/25 20:34: WBC 25.4 H, RBC 4.04 L, Hgb 11.7 L, Hct 38.9, MCV 96.3, MCH 29.0, MCHC 30.1 L, RDW Std Deviation 53.1 H, RDW Coeff of Beena 15.1 H, Plt Count 367, MPV 9.8, Immature Gran % (Auto) 1.200 H, Neut % (Auto) 92.3 H, Lymph % (Auto) 2.2 L, Crook % (Auto) 4.1, Eos % (Auto) 0.0, Baso % (Auto) 0.2, Absolute Neuts (auto) 23.4 H, Absolute Lymphs (auto) 0.57 L, Nucleated RBC % 0, Differential Comment SCANNED, Platelet Estimate ADEQUATE, Basophilic Stippling RARE, Anisocytosis 1+, Stomatocytes 2+, Sodium 138, Potassium 4.7, Chloride 89 L , Carbon Dioxide 42.2 H, Anion Gap 7, BUN 23 H, Creatinine 0.77, Estim Creat Clear Calc 77.14, Est GFR (MDRD) Non-Af 82, BUN/Creatinine Ratio 29.9 H, Glucose 305 H, Lactic Acid 2.5 H*, Calcium 9.2, Troponin T High Sens 10 D, NT pro BNP II 1349 H Rhythm Strip Rhythm Strip: A-fib Rate: 97 Ectopy: None Imaging Radiology Impression Chest X-Ray 04/05/25 21:20 IMPRESSION: No Acute Findings. Reading Location: [facility] Imaging Services [address] [place] [id number] Chest, Abd, Pelvis WO Cont MR#: [id number] Acct: [id number] Name: BENITOPIPER Johan Rep #: [id number] : 1955 F 69 From: Mitchell Collier MD PCP: Dr. Genia Carcamo MD Status: ADM IN Study: CT Chest, Abd, Pelvis WO Cont Date of Exam: 04/05/25 Exam# [id number] Ordering Dr: Morales Bolden DO PROCEDURE: CT CHEST, ABD, PELVIS WO CONT 04/05/2025 REASON FOR EXAM: LEUKOCYTOSIS AND LACTIC ACIDOSIS WITH ? INFECTION TECHNIQUE: Chest, abdomen and pelvis CT without intravenous contrast. Coronal and Sagittal reconstruction series were provided. One or more dose reduction techniques were used (e.g., Automated exposure control, adjustment of the mA and/or kV according to patient size, use of iterative reconstruction technique. RADIATION DOSE SUMMARY: CTDlvol: 50 mGy DLP: 2098.96 mGycm COMPARISON: Chest CT 09/08/2024 FINDINGS: CT CHEST: Thoracic aorta appears within limits on noncontrast imaging. Atherosclerotic calcification noted. Mild appearing coronary calcification. Pericardial effusion is present measuring around 1.4 cm axial 88. Small posterior layering left pleural effusion. No adenopathy. Motion artifact. Difficult to appreciate the centrilobular emphysema due to motion. The central airways appear patent. Platelike atelectasis at the lingula and left lower lobe and medial right middle lobe. Small band of likely atelectasis at the right lower lobe posterior recess. The lungs otherwise appear clear. No focal consolidation. CT ABDOMEN / PELVIS: The liver, gallbladder, adrenal glands, kidneys, pancreas and spleen appear within limits on noncontrast imaging. Aortoiliac atherosclerotic calcification. No abdominal aortic aneurysm. No adenopathy. No bowel dilation or free air. No evidence of bowel wall thickening or adjacent fat inflammatory stranding. Diverticulosis without diverticulitis. The appendix is not identified, no secondary signs. The adnexa, uterus and bladder appear within limits. No free fluid. Visualized soft tissues appear unremarkable. Lower lumbar spondylosis, degenerative facet changes. Visualized osseous structures otherwise appear within limits. Fat containing umbilical hernia without stranding. Small fat containing left inguinal hernia without stranding. CT/CT Chest, Abd, Pelvis WO Cont IMPRESSION: Pericardial effusion is present measuring around 1.4 cm axial 88, clinically correlate. Small posterior layering left pleural effusion. Bilateral atelectasis without focal consolidation identified. No evidence of acute intra-abdominal process on noncontrast imaging. Diverticulosis without diverticulitis. Reading Location: [id number] CC: Dr. Genia Carcamo MD; Dr. Morales Bolden DO ~ Respooler: Signed Assessment & Plan Assessment/Plan (1) Acute exacerbation of chronic obstructive pulmonary disease (COPD): (2) Pericardial effusion: (3) Leukocytosis: QUALIFIERS: Leukocytosis type: unspecified Qualified Code(s): D 72.829 - Elevated white blood cell count, unspecified (4) Lactic acidosis: (5) Acute hypoxic respiratory failure: (6) Bilateral edema of lower extremity: (7) Elevated brain natriuretic peptide (BNP) level: (8) Morbid obesity with BMI of 45.0-49.9, adult: (9) Obesity hypoventilation syndrome: (10) WINIFRED (obstructive sleep apnea): (11) Atrial fibrillation: QUALIFIERS: Atrial fibrillation type: unspecified chronic Q ualified Code(s): I48.20 - Chronic atrial fibrillation, unspecified (12) Chronic anticoagulation: PLAN: Plan 1. AE COPD; with Leukocytosis and Lactic Acidosis likely due to recent steroids - Admit to PCU. Continue Solu-Medrol IV begun in the ER plus scheduled and as needed nebulizers. Maintain empiric IV piperacillin-tazobactam started in ER in case of RLL infiltrate with noncontrasted CT pending at this time. Give acetaminophen as needed pain or fever. 2. ~1.4 cm newly diagnosed Pericardial Effusion on CT this admission complicating #1 - Check echocardiogram to evaluate. Check ESR and CRP. Check viral respiratory panel. 3. Elevated NT pro-BNP II of 1,369 pg/mL present on admission with an ongoing alleged ~30 pound weight gain in ~2+ bilateral lower extremity edema with recent echo that revealed LVEF ~65% compounding #1 & #2 - Maintain IV furosemide began in ER daily. Check NT pro-BNP II daily to follow trend. 4. Votxj-de-Nvlfjup Respiratory Failure requiring Airvo attributable to #1 - #3 - Patient switched to BiPAP with a persistently high pCO2 in the ~80 mmHg range (which seems to be her baseline) with repeat ABG pending at this time. 5. Morbid Obesity; with BMI of 49 this admission (up from 46.8 last admission) plus WINIFRED with OHS adding to the burden of disease outlined from #1 - #4 - Weight loss will be recommended. Continue nocturnal CPAP as previous. This complicates her case and may hamper recovery. 6. Chronic atrial fibrillation; on diltiazem and apixaban adding to the medical complexity outlined from #1 - #4 - Maintain current regimen. 7. Essential hypertension; on metoprolol and furosemide - Maintain home regimen except furosemide will be switched to IV in light of #2. 8. History of hyperlipidemia; currently not on treatment - Check lipid profile this admission to confirm status. 9. Narcolepsy; on modafinil - Resume modafinil as before. 10. Seasonal allergies; on montelukast - Maintain current treatment. 11. Migraine headaches; on Nurtec ODT daily - Hold this agent while inpatient as there is a contraindication with coadministration with modafinil. 12. Depression; on duloxetine - Stable. Continue duloxetine as previous. 13. History of cellulitis and septic olecranon bursitis of the Right elbow - Noted no evidence of recurrence at this time. 14. History of hemorrhoids - Stable. 14. History of appendectomy (~1994) - Noted. 15. History of Right heart catheterization (~2021) - Noted. 17. History of removal of ovary (~1994) - Noted for the sake of completeness. 18. History of GERD; currently not on treatment - Start PPI in light of steroids used to treat #1. 19. Osteopenia - Stable. 20. OA; with chronic back pain on acetaminophen twice daily - Give acetaminophen prn for pain or fever. 21. DVT prophylaxis - Patient is already on apixaban for #5 which will be continued. Total time: Approximately (but not less than) 75 minutes. Charges/Coding Visit Charges Inpatient E&M: 71736 Init Hosp L3
[2025-04-05 23:06] LABS: Troponin T High Sens 2 HR 8 ng/L (<=14)
--- NOTE | 2025-04-05 23:58 | CT_ITS ---
PROCEDURE: CT CHEST, ABD, PELVIS WO CONT 04/05/2025 REASON FOR EXAM: LEUKOCYTOSIS AND LACTIC ACIDOSIS WITH ? INFECTION TECHNIQUE: Chest, abdomen and pelvis CT without intravenous contrast. Coronal and Sagittal reconstruction series were provided. One or more dose reduction techniques were used (e.g., Automated exposure control, adjustment of the mA and/or kV according to patient size, use of iterative reconstruction technique. RADIATION DOSE SUMMARY: CTDlvol: 50 mGy DLP: 2098.96 mGycm COMPARISON: Chest CT 09/08/2024 FINDINGS: CT CHEST: Thoracic aorta appears within limits on noncontrast imaging. Atherosclerotic calcification noted. Mild appearing coronary calcification. Pericardial effusion is present measuring around 1.4 cm axial 88. Small posterior layering left pleural effusion. No adenopathy. Motion artifact. Difficult to appreciate the centrilobular emphysema due to motion. The central airways appear patent. Platelike atelectasis at the lingula and left lower lobe and medial right middle lobe. Small band of likely atelectasis at the right lower lobe posterior recess. The lungs otherwise appear clear. No focal consolidation. CT ABDOMEN / PELVIS: The liver, gallbladder, adrenal glands, kidneys, pancreas and spleen appear within limits on noncontrast imaging. Aortoiliac atherosclerotic calcification. No abdominal aortic aneurysm. No adenopathy. No bowel dilation or free air. No evidence of bowel wall thickening or adjacent fat inflammatory stranding. Diverticulosis without diverticulitis. The appendix is not identified, no secondary signs. The adnexa, uterus and bladder appear within limits. No free fluid. Visualized soft tissues appear unremarkable. Lower lumbar spondylosis, degenerative facet changes. Visualized osseous structures otherwise appear within limits. Fat containing umbilical hernia without stranding. Small fat containing left inguinal hernia without stranding. CT/CT Chest, Abd, Pelvis WO Cont IMPRESSION: Pericardial effusion is present measuring around 1.4 cm axial 88, clinically co rrelate. Small posterior layering left pleural effusion. Bilateral atelectasis without focal consolidation identified. No evidence of acute intra-abdominal process on noncontrast imaging. Diverticulosis without diverticulitis. Reading Location: [id number]
[2025-04-06] VITALS (17 sets, daily range): BP systolic 121–153; BP diastolic 57–101; PULSE 81–105; RESP 12–20; TEMP 36.4–36.7; O2SAT 91–100; BMI 46.4
[2025-04-06 00:05] LABS: Magnesium 1.9 mg/dL (1.5-2.2)
[2025-04-06 00:25] LABS: Reflex Lactate? Y
[2025-04-06 00:28] LABS: Allen Test Positive; Base Excess 22 mmol/L (-2 to +2); Bicarbonate 47.4 mmol/L (22-26); Blood Gas Specimen Type ART; Mode Not entered; O2 Delivery Device HFNC; PO2 119 mmHG (75-100); SITE R Radial; SO2 98 % (95-99); Total Carbon Dioxide > 50 mmol/L; pCO2 86.9 mmHg (35-45); pH 7.34 (7.35-7.45)
[2025-04-06] MEDS: Magnesium Chloride 64 MG Delay Rel.Tablet 128 MG PO ×2 (00:30→21:13)
[2025-04-06] MEDS: Furosemide 40 MG/4 ML Vial IV ×3 (00:31→15:05)
[2025-04-06] MEDS: 0.9% Saline Lock 10 ML Syringe IV ×4 (00:32→23:31)
[2025-04-06 01:12] LABS: Troponin T High Sens 4 HR 12 ng/L (<=14)
[2025-04-06 01:37] LABS: Lactic Acid 2.9 mmol/L (0.0-2.0)
[2025-04-06 04:54] LABS: Absolute Lymphocyte Count 0.26 X10^3/uL (0.83-4.51); Absolute Neutrophil Count 25.3 X10^3/uL (2.0-7.7); Basophil# 0.04 X10^3/uL; Basophil% 0.2 % (0-1); Hematocrit 38.4 % (37-47); Hemoglobin 11.6 g/dL (12.0-15.0); Lymphocyte # 0.26 X10^3/ul (0.83-4.51); Mean Corp Hgb Conc 30.2 g/dL (32-36); Mean Corpuscular Hgb 28.9 pg (27.0-32.0); Mean Corpuscular Volume 95.5 fL (81-99); Mean Platelet Vol. 9.7 fl (6.2-12.0); Monocyte# 0.38 X10^3/uL; Monocyte% 1.4 % (0-10); NRBC Flagged by Analyzer 0 % (0-5); Neutrophil # 25.26 X10^3/uL (2.7-7.7); Neutrophil % 96.1 % (47-70); POSITIVE DIFFERENTIAL YES; Platelet Count 310 K/mm3 (150-450); RBC Distribution Width CV 15.1 % (11.6-14.6); RBC Distribution Width SD 52.8 fl (35.1-43.9); Red Blood Count 4.02 M/mm3 (4.2-5.4); White Blood Count 26.3 K/mm3 (4.4-11.0)
[2025-04-06] MEDS: Piperacil/Tazobactam 3.375 GM in 0.9% Normal Saline (50mL MB+) 50 ML IV ×3 (05:03→21:34)
[2025-04-06 05:16] LABS: Allen Test Positive; Base Excess > 30 mmol/L (-2 to +2); Bicarbonate 54.8 mmol/L (22-26); Blood Gas Specimen Type ART; Mode Not entered; O2 Delivery Device HFNC; PO2 84 mmHG (75-100); SITE L Radial; SO2 96 % (95-99); Total Carbon Dioxide > 50 mmol/L; pCO2 84.1 mmHg (35-45); pH 7.42 (7.35-7.45)
[2025-04-06 05:32] LABS: Phosphorus 3.2 mg/dL (2.7-4.5); Pro- Brain NATRIURETIC PEPTIDE 1763 pg/mL (<=900)
[2025-04-06 05:35] LABS: ALB/GLOB Ratio 1.3 RATIO (0.9-2.4); AST(SGOT) 20 U/L (<=31); Alanine Aminotransfer ALT/SGPT 41 U/L (<=34); Albumin, Serum 3.4 g/dL (3.4-4.8); Alkaline Phosphatase 53 U/L (35-104); Anion Gap 10 (5-15); BUN 16 mg/dL (4-19); BUN/Creat Ratio 27.3 RATIO (10-20); Calcium,Total 8.6 mg/dL (7.6-11.0); Chloride 88 mmol/L (98-108); Differential Indicated SCAN CRITERIA MET; EST Glomerular Filtration Rate 96 (>60); Estimated Creatinine Clearance 77.49 ml/min (50-250); Globulin 2.7 g/dL (2.2-4.2); Glucose 233 mg/dL (70-99); Protein, Total 6.1 g/dL (5.9-8.4); Sodium Level 140 mmol/L (133-145); Total Bilirubin 0.23 mg/dL (0.00-1.30)
[2025-04-06 05:40] LABS: Differential Comment SCANNED; Platelet Estimate ADEQUATE (ADEQ); Red Cell Morphology NORM C+C NORMAL (NORM C&C)
[2025-04-06 05:54] LABS: Erythrocyte Sedimentation Rate 18 mm/hr (0-30)
[2025-04-06 05:59] LABS: Lactic Acid 2.2 mmol/L (0.0-2.0)
--- NOTE | 2025-04-06 07:26 | CPS ---
Critical value verified times two. Delivered results to Nicolette Costa R.N. charge nurse.
[2025-04-06 07:30] LABS: Allen Test Positive; Base Excess 23 mmol/L (-2 to +2); Bicarbonate 47.7 mmol/L (22-26); Blood Gas Specimen Type ART; Mode Not entered; O2 Delivery Device BiPAP; PO2 54 mmHG (75-100); SITE L Radial; SO2 85 % (95-99); Total Carbon Dioxide > 50 mmol/L; pCO2 75.5 mmHg (35-45); pH 7.41 (7.35-7.45)
[2025-04-06] MEDS: Ipratropium/Albuterol Sulfate 3 ML AMPUL.NEB INHALATION ×5 (08:02→19:04)
--- NOTE | 2025-04-06 08:42 | PCM.PN.HOSP ---
Reason for Visit Reason for Visit: Diagnoses Elevated white blood cell count, unspecified (04/05/25) Morbid (severe) obesity due to excess calories (04/05/25) Morbid (severe) obesity with alveolar hypoventilation (04/05/25) Acidosis, unspecified (04/05/25) Obstructive sleep apnea (adult) (pediatric) (04/05/25) Other pericardial effusion (noninflammatory) (04/05/25) Chronic atrial fibrillation, unspecified (04/05/25) Chronic obstructive pulmonary disease with (acute) exacerbation (04/05/25) Acute respiratory failure with hypoxia (04/05/25) Localized edema (04/05/25) Other specified abnormal findings of blood chemistry (04/05/25) Body mass index [BMI] 45.0-49.9, adult (04/05/25) medical terminologist (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 anticoagulants (04/05/25) Objective Data Objective Data Vital Signs: Vital Signs Temp Pulse Resp BP Pulse Ox O2 Del Method O2 Flow Rate 97.6 F L 92 18 121/59 H 93 Bi-pap 50 04/06/25 05:05 04/06/25 05:05 04/06/25 05:45 04/06/25 05:05 04/06/25 06:30 04/06/25 06:30 04/06/25 05:05 FiO2 35 04/06/25 06:30 Oxygen Flow Rate (L/min) 50 Oxygen Delivery Method Bi-pap Weight: 253 lb 12.033 oz Body Mass Index (BMI) 46.4 Intake & Output: Intake and Output for Last 24 Hours 04/04/25 04/05/25 04/06/25 23:59 23:59 23:59 Intake Total 100 / 100 0 / 0 Output Total 200 / 200 1000 / 1000 Balance -100 / -100 -1000 / -1000 Lab / Micro Data 04/06/25 04:45 04/06/25 04:45 Labs: Laboratory Results - last 24 hr 04/05/25 20:34: WBC 25.4 H, RBC 4.04 L, Hgb 11.7 L, Hct 38.9, MCV 96.3, MCH 29.0, MCHC 30.1 L, RDW Std Deviation 53.1 H, RDW Coeff of Beena 15.1 H, Plt Count 367, MPV 9.8, Immature Gran % (Auto) 1.200 H, Neut % (Auto) 92.3 H, Lymph % (Auto) 2.2 L, [place] % (Auto) 4.1, Eos % (Auto) 0.0, Baso % (Auto) 0.2, Absolute Neuts (auto) 23.4 H, Absolute Lymphs (auto) 0.57 L, Nucleated RBC % 0, Differential Comment SCANNED, Platelet Estimate ADEQUATE, Basophilic Stippling RARE, Anisocytosis 1+, Stomatocytes 2+, Sodium 138, Potassium 4.7, Chloride 89 L, Carbon Dioxide 42.2 H, Anion Gap 7, BUN 23 H, Creatinine 0.77, Estim Creat Clear Calc 77.14, Est GFR (MDRD) Non-Af 82, BUN/Creatinine Ratio 29.9 H, Glucose 305 H, Lactic Acid 2.5 H*, Calcium 9.2, Troponin T High Sens 10 D, NT pro BNP II 1349 H 04/05/25 22:30: Magnesium 1.9, Troponin T Hi Sens 2 Hr 8 04/06/25 00:37: Lactic Acid 2.9 H*, Troponin T Hi Sens 4Hr 12 04/06/25 04:45: WBC 26.3 H, RBC 4.02 L, Hgb 11.6 L, Hct 38.4, MCV 95.5, MCH 28.9, MCHC 30.2 L, RDW Std Deviation 52.8 H, RDW Coeff of Beena 15.1 H, Plt Count 310, MPV 9.7, Immature Gran % (Auto) 1.300 H, Neut % (Auto) 96.1 H, Lymph % (Auto) 1.0 L, Harford % (Auto) 1.4, Eos % (Auto) 0.0, Baso % (Auto) 0.2, Absolute Neuts (auto) 25.3 H, Absolute Lymphs (auto) 0.26 L, Nucleated RBC % 0, Differential Comment SCANNED, Platelet Estimate ADEQUATE, RBC Morphology NORM C+C, ESR 18, Sodium 140, Potassium 4.0, Chloride 88 L, Carbon Dioxide 42.0 H, Anion Gap 10, BUN 16, Creatinine 0.60 L, Estim Creat Clear Calc 77.49, Est GFR (MDRD) Non-Af 96, BUN/Creatinine Ratio 27.3 H, Glucose 233 H, Lactic Acid 2.2 H*, Calcium 8.6, Phosphorus 3.2, Total Bilirubin 0.23, AST 20, ALT 41 H, Alkaline Phosphatase 53, C-React Prot Ext Range 18.90 H, NT pro BNP II 1763 H, Total Protein 6.1, Albumin 3.4, Globulin 2.7, Albumin/Globulin Ratio 1.3 ABG Data ABG results: ABG 04/06/25 04/06/25 04/06/25 00:23 05:10 07:26 Specimen Type ART ART ART Sample Site R Radial L Radial L Radial pH 7.34 L 7.42 7.41 Bicarbonate Actual 47.4 H 54.8 H 47.7 H Total CO2 > 50 > 50 > 50 Base Excess 22 H > 30 H 23 H O2 Saturation 98 96 85 L O2 % 45.0 40.0 35.0 ABG pCO2 86.9 H* 84.1 H* 75.5 H* ABG pO2 119 H 84 54 L Johnathan Test Positive Positive Positive O2 Delivery Device HFNC HFNC BiPAP Vent Mode Not entered Not entered Not entered Crit Call To/Read Back Yes Yes Yes Radiography Diagnostic Testing: Radiology Impression Chest X-Ray 04/05/25 21:20 IMPRESSION: No Acute Findings. Reading Location: [facility] Chest/Abdomen/Pelvis CT 04/05/25 23:58 IMPRESSION: Pericardial effusion is present measuring around 1.4 cm axial 88, clinically correlate. Small posterior layering left pleural effusion. Bilateral atelectasis without focal consolidation identified. No evidence of acute intra-abdominal process on noncontrast imaging. Diverticulosis without diverticulitis. Reading Location: [id number] Rhythm Strip Rhythm Strip: A-fib Rate: 97 Ectopy: None Physical Exam Narrative General: Alert, Oriented x3, Cooperative, morbid obesity BMI 46.4 kg per square HEENT: Atraumatic, PERRLA, EOMI, Normocephalic. Oral: On BiPAP Neck: Supple, No JVD, Negative Carotid Bruits Chest wall/Lungs: Air entry severely diminished in all lung samaniego. BiPAP support. Faint bilateral expiratory rhonchi Cardiovascular: A-fib, rate controlled normal S1,S2, No M/G/R Abdomen: Bowel Sounds Present, Soft, Non Tender, Non-Distended : No dysuria. No renal angle tenderness. No suprapubic tenderness. Extremities: Bilateral 3+ chronic thigh level edema. Capillary Refill Less than 3 Seconds Skin: No rashes, No breakdown Musculoskeletal: No Tenderness to Palpation of Joints or Extremities. ROM restricted due to edema Neurological: Cranial nerves II-XII grossly intact, DTR 2+/4. No acute focal neurological deficit. Psych/Mental Status: flat affect Assessment & Plan Assessment/Plan (1) Acute exacerbation of chronic obstructive pulmonary disease (COPD): (2) Pericardial effusion: (3) Leukocytosis: QUALIFIERS: Leukocytosis type: unspecified Qualified Code(s): D72.829 - Elevated white blood cell count, unspecified (4) Lactic acidosis: (5) Acute hypoxic respiratory failure: (6) Bilateral edema of lower extremity: (7) Elevated brain natriuretic peptide (BNP) level: (8) Morbid obesity with BMI of 45.0-49.9, adult: (9) Obesity hypoventilation syndrome: (10) WINIFRED (obstructive sleep apnea): (11) Atrial fibrillation: QUALIFIERS: Atrial fibrillation type: unspecified chronic Qualified Code(s): I48.20 - Chronic atrial fibrillation, unspecified (12) Chronic anticoagulation: PLAN: Plan 69-year-old female was admitted with dyspnea at rest, shortness of breath prolonging for about 1 month, normally 4 L at rest and 6 L on exertion, on CPAP at night. #Aute exacerbation of COPD: Was discharged on 03/24/2025 about 2 weeks ago. Patient is being managed on scheduled bronchodilator, IV Solu-Medrol, Mucinex, incentive spirometry and Pep. 2. Acute HFpEF diagnosed 2 weeks ago: Heart failure core measures including intake and output, fluid restriction less than 1500 mL, daily weight monitoring, kidney and electrolytes monitoring. Continue Lasix, 40 mg IV adjusted by patient's hemodynamics Echo 03/19/2025. Interpretation Summary The study was technically difficult. The LV systolic function is normal. EF is 65 %. There is Mild focal posterior mitral annular calcification. Right ventricular systolic pressure estimated to be 50 mmHg. Small (<1.0 cm) pericardial effusion. CT on admission reported about 1.4 cm pericardial effusion which was seen on the echo also. Therefore no new finding 3. Chronic A-fib: At rest heart rate is controlled on Eliquis and Cardizem as well as metoprolol 4. Hypertension: 5. Dyslipidemia: Fasting profile ordered. Blood pressure is controlled DVT prophylaxis - Patient is already on apixaban for #5 which will be continued. Clinical Impression(s) from Imaging Studies Chest X-Ray 04/05/25 21:20 IMPRESSION: No Acute Findings. [facility] Chest/Abdomen/Pelvis CT 04/05/25 23:58 IMPRESSION: Pericardial effusion is present measuring around 1.4 cm axial 88, clinically correlate. Small posterior layering left pleural effusion. Bilateral atelectasis without focal consolidation identified. No evidence of acute intra-abdominal process on noncontrast imaging. Diverticulosis without diverticulitis. Reading Location: [id number] Charges/Coding Visit Charges Inpatient E&M: 45360 Subs Hosp L2
[2025-04-06 08:51] LABS: Reflex Lactate? Y
[2025-04-06 09:52] LABS: Cholesterol 147 mg/dL (<=200); High Density Lipoprotein 72 mg/dL; Low Density Lipoprotein Calc. 61 mg/dL; Triglycerides 71 mg/dL; Very Low Density Lipoprotein 14 mg/dL (5-40); cholesterol:hdl ratio screen 2.04
--- NOTE | 2025-04-06 14:30 | CASEMGMT ---
LUIS NOLAND chart review: Patient was admitted 03/19-03/24/25 for COPD exacerbation, heart failure, and afib. See assessment from 03/23/25. Patient was discharged to home with increase in home oxygen at 4lpm at rest and 6lpm with ambulation, [facility] HHC, family support, and follow-up plans in place. Patient returned to [facility] ED on 04/05/25 for increased SOB and was admitted for acute exacerbation of COPD and CHF. Patient was requiring Airvo 50L/45% and then was placed on Bipap at 35%, and started on IV Lasix. LUIS NOLAND in to discuss readmission and discharge planning, at bedside. Patient currently on bipap. Per Mitchell, patient was taking medications as prescribed and attended follow-up appt with PCP. states that [facility] had been out to see patient as well. states that patient had been wearing oxygen as prescribed but has noticed patient was need more oxygen at times and was more SOB with activity. LUIS NOLAND inquired if patient was following a low sodium diet, states that they have been watching salt intake but patient did have turkey deli meet over the weekend. asked if someone could provided information regarding low sodium diet and foods to avoid. states patient had been weigh self daily and that patient's weight had been steady but they was increase in weight over the weekend. states that Dr. Brian had come to see patient and states that Dr. Brian will be working on getting patient bipap for at home on discharge. also states that per Dr. Brian, patient will need hospital bed at discharge and prefers [facility]. also mentions that Dr. Brian stated that if need to use ambulance at home for transport for follow-up appts. LUIS NOLAND inquired why patient would need ambulance for transport and states that patient is needing assistance to transport and ambulate and if has been difficult to get her out of the house for appointment. RN NUZHAT educated patient and that if patient is requiring more assistance for transfers and ADLs that patient may benefit from additional rehab at SNF/TCU. states that patient will not go to SNF as Dr. Brian states that patient would return to hospital in 3 days if she would go to a SNF. RN NUZHAT educated patient and about different LOC for discharge disposition including SNF, TCU, and HHC and road to recovery with each service. Patient and voiced understanding and would like to see how patient progresses through course of treatment and progress with therapy. RN CM updated inpatient farm operations technical director regarding request for low sodium diet information. CM will continue to follow this patient and plan for a safe discharge.
[2025-04-06] MEDS: Furosemide 500 MG in Empty Viaflex 50 mL 1 EACH CONT INF (16:10)
[2025-04-06] MEDS: Insulin Glargine-YFGN 100 UNIT/ML Pen 15 UNIT SC ×2 (16:17→21:34)
--- NOTE | 2025-04-06 16:30 | CASEMGMT ---
Addendum entered by Daija Constantino 04/08/25 11:14: LUIS NOLAND called and left message with Randell at Dr. Brian's office to check on the status of bipap at discharge. NUZHAT will continue to follow this patient and plan for safe discharge. Original Note: LUIS NOLAND called Dr. Suh's office to check on status of bipap at discharge. LUIS NOLAND spoke with Dr. Brian, who states his office is working on setting up bipap for at home. LUIS NOLAND provided Dr. Brian with this LUIS NOLAND's phone number to coordinate with discharge planning. LUIS NOLAND received call from Randell RIVERA at Dr. Brian's office, stating that she is working on setting up bipap for patient. LUIS NOLAND provided current bipap setting and oxygen requirement from RT documentation. Randell provided her direct number [phone]. NUZHAT will continue to follow this patient and plan for a safe discharge.
[2025-04-06 16:42] LABS: Bedside Glucose 173 mg/dL (74-106)
[2025-04-06] MEDS: MethylPREDNISolone 125 MG/2 ML Vial 60 MG IV ×2 (17:23→23:31)
[2025-04-06] MEDS: APIXABAN 5 MG TABLET PO (21:12)
[2025-04-06] MEDS: Metoprolol Tartrate 50 MG Tablet PO (21:12)
[2025-04-06] MEDS: Montelukast 10 MG Tablet PO (21:13)
[2025-04-06] MEDS: guaiFENesin/D-Methorphan TAB.SR.12H 2 TABLET PO (21:13)
[2025-04-06] MEDS: Insulin Lispro 100 UNIT/ML INSULN.PEN SC (21:35)
[2025-04-06 22:03] LABS: Bedside Glucose 175 mg/dL (74-106)
[2025-04-07] VITALS (16 sets, daily range): BP systolic 136–154; BP diastolic 81–92; PULSE 73–102; RESP 12–20; TEMP 36.7–36.9; O2SAT 91–98; BMI 45.7
[2025-04-07 03:52] LABS: Bedside Glucose 155 mg/dL (74-106)
[2025-04-07] MEDS: MethylPREDNISolone 125 MG/2 ML Vial 60 MG IV ×4 (05:57→23:18)
[2025-04-07] MEDS: Piperacil/Tazobactam 3.375 GM in 0.9% Normal Saline (50mL MB+) 50 ML IV ×3 (05:57→21:16)
[2025-04-07 06:27] LABS: Hemoglobin A1c 6.3 % (<=5.6)
[2025-04-07 06:30] LABS: Phosphorus 3.3 mg/dL (2.7-4.5)
--- NOTE | 2025-04-07 08:03 | PCM.PROGNOTE ---
Subjective Subjective less SOB this morning the patient slept with BiPAP through the night. She has no chest pressure or chest pain This morning she is comfortable, sleeping with BiPAP Objective Data Objective Data Vital Signs: Vital Signs Temp Pulse Resp BP Pulse Ox O2 Del Method O2 Flow Rate 98.5 F 73 15 148/90 H 97 Bi-pap 50 04/07/25 03:00 04/07/25 05:16 04/07/25 05:16 04/07/25 03:00 04/07/25 05:16 04/07/25 03:00 04/06/25 05:05 FiO2 35 04/07/25 05:16 Oxygen Flow Rate (L/min) 50 Oxygen Delivery Method Bi-pap Weight: 113.5 kg Body Mass Index (BMI) 45.7 Intake & Output: Intake and Output for Last 24 Hours 04/05/25 04/06/25 04/07/25 23:59 23:59 23:59 Intake Total 100 / 100 100 / 100 50 / 50 Output Total 200 / 200 2550 / 3000 1000 / 1000 Balance -100 / -100 -2450 / -2900 -950 / -950 Lab / Micro Data 04/06/25 04:45 04/06/25 04:45 Labs: Laboratory Results - last 24 hr 04/06/25 04:45: Triglycerides 71, Cholesterol 147, LDL Cholesterol, Calc 61, VLDL Cholesterol 14, HDL Cholesterol 72, Cholesterol/HDL Ratio 2.04 04/06/25 09:15: Lactic Acid 3.0 H* 04/06/25 15:16: POC Glucose 173 H 04/06/25 21:24: POC Glucose 175 H 04/07/25 03:28: POC Glucose 155 H 04/07/25 05:13: Hemoglobin A1c 6.3 H, Phosphorus 3.3 Micro: Microbiology 04/06/25 05:45 Mucosa - Nasopharyngeal Respiratory Panel (PCR) - Final Rhythm Strip Rhythm Strip: A-fib Rate: 97 Ectopy: None
--- NOTE | 2025-04-07 08:07 | PCM.PROGNOTE ---
Subjective Subjective The patient slept well, she is BiPAP through the night She denies any chest pain Shortness of breath is less pronounced She is speaking in full sentences, there is no accessory muscle use today Objective Data Objective Data Vital Signs: Vital Signs Temp Pulse Resp BP Pulse Ox O2 Del Method O2 Flow Rate 98.5 F 73 15 148/90 H 97 Bi-pap 50 04/07/25 03:00 04/07/25 05:16 04/07/25 05:16 04/07/25 03:00 04/07/25 05:16 04/07/25 03:00 04/06/25 05:05 FiO2 35 04/07/25 05:16 Oxygen Flow Rate (L/min) 50 Oxygen Delivery Method Bi-pap Weight: 113.5 kg Body Mass Index (BMI) 45.7 Intake & Output: Intake and Output for Last 24 Hours 04/05/25 04/06/25 04/07/25 23:59 23:59 23:59 Intake Total 100 / 100 100 / 100 50 / 50 Output Total 200 / 200 2550 / 3000 1000 / 1000 Balance -100 / -100 -2450 / -2900 -950 / -950 Lab / Micro Data 04/06/25 04:45 04/06/25 04:45 Labs: Laboratory Results - last 24 hr 04/06/25 04:45: Triglycerides 71, Cholesterol 147, LDL Cholesterol, Calc 61, VLDL Cholesterol 14, HDL Cholesterol 72, Cholesterol/HDL Ratio 2.04 04/06/25 09:15: Lactic Acid 3.0 H* 04/06/25 15:16: POC Glucose 173 H 04/06/25 21:24: POC Glucose 175 H 04/07/25 03:28: POC Glucose 155 H 04/07/25 05:13: Hemoglobin A1c 6.3 H, Phosphorus 3.3 Micro: Microbiology 04/06/25 05:45 Mucosa - Nasopharyngeal Respiratory Panel (PCR) - Final Rhythm Strip Rhythm Strip: A-fib Rate: 97 Ectopy: None Physical Exam Const alert, oriented x3 and no apparent distress General Appearance: cooperative and comfortable Orientation / Consciousness: awake HEENT normocephalic, head/scalp atraumatic, hearing grossly normal bilaterally and moist oral mucous membranes Head and Scalp: normal to inspection and normocephalic Face and Sinus: normal facial exam and sinuses nontender Nose: external nose normal and nares normal General Ear: hearing grossly impaired Mouth: oral and palatal mucosa normal, tongue normal and moist mucous membranes abnormal Eyes PERRL and EOMs intact bilaterally Neck full ROM, nuchal rigidity and no lymphadenopathy Chest Chest Narrative: Diminished breath sounds, slight improvement in air entry from yesterday. Poor chest expansion, no audible wheezing, prolonged expiratory phase, no accessory muscle use this morning Cardio Cardio Narrative: Irregular rhythm, no tachycardia, no murmur no S3 GI normal to inspection, nondistended, normoactive bowel sounds, soft to palpation, non-tender, non-distended, hepatosplenomegaly, no masses and no bruits Back/Spine no CVA tenderness and normal ROM Extremity normal to inspection Extremity Narrative: Less leg edema Neuro oriented x3 and moves all extremities Assessment & Plan Assessment/Plan (1) Pericardial effusion: PLAN: The patient had a good diuresis There is no chest pain She has a preserved ejection fraction but significant pulm hypertension Follow-up echocardiography warranted, outpatient (2) WINIFRED (obstructive sleep apnea): PLAN: The patient does not have BiPAP at home Currently using 20/10 Tolerates the pressure No aerophagia Slept well last night with BiPAP I am in the process of procuring a BiPAP with O2 blended in for home which I believe will help the patient quite substantially (3) Acute exacerbation of chronic obstructive pulmonary disease (COPD): PLAN: Less dyspnea this morning more air movement high steroids, frequent use of DuoNebs having some effect. No evidence of acute infection at this point, some response to COPD exacerbation (4) Acute hypoxic respiratory failure: PLAN: Tidal volumes are increased from the mid 400s to the high 400s, the patient has less edema and has more air movement, I suspect the CO2 will continue to drop, consider blood gas either this morning or tomorrow The case is discussed with Dr. Crowe this morning
[2025-04-07 09:18] LABS: Bedside Glucose 160 mg/dL (74-106)
[2025-04-07] MEDS: Insulin Lispro 100 UNIT/ML INSULN.PEN SC ×3 (09:43→21:14)
[2025-04-07] MEDS: Fluticasone 0.05% 1 SPRAY NASAL.SRY 2 SPRAY NASAL (09:44)
[2025-04-07] MEDS: dilTIAZem CD 240 MG Capsule PO (09:46)
[2025-04-07] MEDS: Magnesium Chloride 64 MG Delay Rel.Tablet 128 MG PO ×2 (09:46→21:15)
[2025-04-07] MEDS: Potassium Chloride Oral Tablet 20 MEQ PO (09:46)
[2025-04-07] MEDS: guaiFENesin/D-Methorphan TAB.SR.12H 2 TABLET PO ×2 (09:46→21:15)
[2025-04-07] MEDS: Loratadine 10 MG Tablet PO (09:46)
[2025-04-07] MEDS: Pantoprazole Sodium 40 MG Tablet PO (09:46)
[2025-04-07] MEDS: Metoprolol Tartrate 50 MG Tablet PO ×2 (09:46→21:15)
[2025-04-07] MEDS: APIXABAN 5 MG TABLET PO ×2 (09:46→21:14)
[2025-04-07] MEDS: DULoxetine Hcl 60 MG Capsule PO (09:47)
[2025-04-07] MEDS: Insulin Glargine-YFGN 100 UNIT/ML Pen 15 UNIT SC ×2 (09:54→21:15)
--- NOTE | 2025-04-07 10:52 | CASEMGMT ---
RN CM in to updated patient and regarding status of bipap with Dr. Brian's office and that they are continuing to setup bipap for at discharge and will keep this RN CM updated regarding status. inquired about hospital bed for at discharge. RN CM updated patient and that RN CM will work with hospitalist for hospital bed for at discharge. Patient and had no further questions or concerns at this time. CM will continue to follow this patient and plan for a safe discharge.
[2025-04-07] MEDS: Ipratropium/Albuterol Sulfate 3 ML AMPUL.NEB INHALATION ×2 (11:05→19:05)
[2025-04-07 11:57] LABS: Bedside Glucose 161 mg/dL (74-106)
[2025-04-07] MEDS: Insulin Lispro 100 UNIT/ML INSULN.PEN 8 UNIT SC (12:56)
[2025-04-07] MEDS: 0.9% Saline Lock 10 ML Syringe IV ×3 (12:58→23:18)
--- NOTE | 2025-04-07 14:53 | PN.HOSP_ITS ---
Reason for Visit Reason for Visit: Diagnoses Obstructive sleep apnea (adult) (pediatric) (04/05/25) Other pericardial effusion (noninflammatory) (04/05/25) Chronic atrial fibrillation, unspecified (04/05/25) Chronic obstructive pulmonary disease with (acute) exacerbation (04/05/25) Acute respiratory failure with hypoxia (04/05/25) Objective Data Objective Data Vital Signs: Vital Signs Temp Pulse Resp BP Pulse Ox O2 Del Method O2 Flow Rate 98.3 F 85 19 H 136/92 H 97 Room Air 4 04/07/25 09:00 04/07/25 11:08 04/07/25 11:08 04/07/25 09:46 04/07/25 09:07 04/07/25 09:07 04/07/25 09:07 FiO2 35 04/07/25 06:41 Oxygen Flow Rate (L/min) 4 Oxygen Delivery Method Room Air Weight: 250 lb 3.594 oz Body Mass Index (BMI) 45.7 Intake & Output: Intake and Output for Last 24 Hours 04/05/25 04/06/25 04/07/25 23:59 23:59 23:59 Intake Total 100 / 100 100 / 100 340 / 340 Output Total 200 / 200 2550 / 3000 1700 / 1700 Balance -100 / -100 -2450 / -2900 -1360 / -1360 Lab / Micro Data 04/06/25 04:45 04/06/25 04:45 Labs: Laboratory Results - last 24 hr 04/06/25 15:16: POC Glucose 173 H 04/06/25 21:24: POC Glucose 175 H 04/07/25 03:28: POC Glucose 155 H 04/07/25 05:13: Hemoglobin A1c 6.3 H, Phosphorus 3.3 04/07/25 08:50: POC Glucose 160 H 04/07/25 11:37: POC Glucose 161 H Micro: Microbiology 04/06/25 05:45 Mucosa - Nasopharyngeal Respiratory Panel (PCR) - Final Rhythm Strip Rhythm Strip: A-fib Rate: 97 Ectopy: None Physical Exam Narrative Seen and examined. Patient feels better than yesterday. Came out of the BiPAP in the morning. She is talking in full sentences. No dyspnea. Denies chest pain or pressure Physical exam: General: Alert, Oriented x3, Cooperative, morbid obesity BMI 46.4 kg per square HEENT: Atraumatic, PERRLA, EOMI, Normocephalic. Oral: On BiPAP Neck: Supple, No JVD, Negative Carotid Bruits Chest wall/Lungs: Air entry severely diminished in all lung samaniego. Intermittent BiPAP/O2 through nasal cannula. No respiratory distress. Cardiovascular: A-fib, rate controlled normal S1,S2, No M/G/R Abdomen: Bowel Sounds Present, Soft, Non Tender, Non-Distended : No dysuria. No renal angle tenderness. No suprapubic tenderness. Extremities: Bilateral 3+ chronic thigh level edema. Capillary Refill Less than 3 Seconds Skin: No rashes, No breakdown Musculoskeletal: No Tenderness to Palpation of Joints or Extremities. ROM restricted due to edema Neurological: Cranial nerves II-XII grossly intact, DTR 2+/4. No acute focal neurological deficit. Psych/Mental Status: flat affect Assessment & Plan Assessment/Plan (1) Acute exacerbation of chronic obstructive pulmonary disease (COPD): (2) Pericardial effusion: (3) Leukocytosis: QUALIFIERS: Leukocytosis type: unspecified Qualified Code(s): D 72.829 - Elevated white blood cell count, unspecified (4) Lactic acidosis: (5) Acute hypoxic respiratory failure: (6) Bilateral edema of lower extremity: (7) Elevated brain natriuretic peptide (BNP) level: (8) Morbid obesity with BMI of 45.0-49.9, adult: (9) Obesity hypoventilation syndrome: (10) WINIFRED (obstructive sleep apnea): (11) Atrial fibrillation: QUALIFIERS: Atrial fibrillation type: unspecified chronic Q ualified Code(s): I48.20 - Chronic atrial fibrillation, unspecified (12) Chronic anticoagulation: PLAN: Plan 69-year-old female was admitted with dyspnea at rest, shortness of breath prolonging for about 1 month, normally 4 L at rest and 6 L on exertion, on CPAP at night. Acute on chronic hypoxic and hypercarbic combined respiratory failure with respiratory acidosis and chronic metabolic alkalosis: Patient on BiPAP. Tidal volume increased from mid 400s to high 400s. Continue BiPAP support. ABG on admission 7.34/87/119 on high flow nasal cannula. On BiPAP 7.4 1/54. Bicarb more than 50 04/07 on BMP bicarb 42. #Aute exacerbation of COPD: Was discharged on 03/24/2025 about 2 weeks ago. Patient is being managed on scheduled bronchodilator, IV Solu-Medrol, Mucinex, incentive spirometry and Pep. 03/28: Discussed with director of sustainable design Dr. Dunlap at today. Continue high-dose of steroid, bronchodilator, aggressive bronchopulmonary hygiene. 2. Acute HFpEF diagnosed 2 weeks ago: Heart failure core measures including intake and output, fluid restriction less than 1500 mL, daily weight monitoring, kidney and electrolytes monitoring. Continue Lasix, 40 mg IV adjusted by patient's hemodynamics Echo 03/19/2025. Interpretation Summary The study was technically difficult. The LV systolic function is normal. EF is 65 %. There is Mild focal posterior mitral annular calcification. Right ventricular systolic pressure estimated to be 50 mmHg. Small (<1.0 cm) pericardial effusion. CT on admission reported about 1.4 cm pericardial effusion which was seen on the echo also. Therefore no new finding 04/07: Total urine output 2.5 L yesterday and 1000 L till now therefore decrease Lasix drip to 5 mg/h. Patient having good diuresis but she has significant pulmonary hypertension. As mentioned above, RVSP 50 mmHg 3. Chronic A-fib: At rest heart rate is controlled on Eliquis and Cardizem as well as metoprolol 4. Hypertension: 5. Dyslipidemia: Fasting profile ordered. Blood pressure is controlled DVT prophylaxis - Patient is already on apixaban for #5 which will be continued. Clinical Impression(s) from Imaging Studies Chest X-Ray 04/05/25 21:20 IMPRESSION: No Acute Findings. Reading Location: [facility] Chest/Abdomen/Pelvis CT 04/05/25 23:58 IMPRESSION: Pericardial effusion is present measuring around 1.4 cm axial 88, clinically correlate. Small posterior layering left pleural effusion. Bilateral atelectasis without focal consolidation identified. No evidence of acute intra-abdominal process on noncontrast imaging. Diverticulosis without diverticulitis. Reading Location: [id number] Charges/Coding Visit Charges Inpatient E&M: 59539 Subs Hosp L3
[2025-04-07 15:44] LABS: Absolute Lymphocyte Count 0.46 X10^3/uL (0.83-4.51); Basophil# 0.06 X10^3/uL; Basophil% 0.2 % (0-1); Hematocrit 38.9 % (37-47); Hemoglobin 12.4 g/dL (12.0-15.0); Lymphocyte # 0.46 X10^3/ul (0.83-4.51); Lymphocyte % 1.4 % (19-41); Mean Corp Hgb Conc 31.9 g/dL (32-36); Mean Corpuscular Hgb 29.1 pg (27.0-32.0); Mean Corpuscular Volume 91.3 fL (81-99); Monocyte# 1.05 X10^3/uL; Monocyte% 3.3 % (0-10); NRBC Flagged by Analyzer 0 % (0-5); Neutrophil % 94.1 % (47-70); POSITIVE COUNT YES; POSITIVE DIFFERENTIAL YES; Platelet Count 365 K/mm3 (150-450); RBC Distribution Width CV 15.8 % (11.6-14.6); RBC Distribution Width SD 51.9 fl (35.1-43.9); Red Blood Count 4.26 M/mm3 (4.2-5.4); White Blood Count 31.9 K/mm3 (4.4-11.0)
[2025-04-07] MEDS: Furosemide 500 MG in Empty Viaflex 50 mL 1 EACH CONT INF (16:04)
[2025-04-07 16:09] LABS: Differential Indicated SCAN CRITERIA MET
[2025-04-07 16:15] LABS: Anion Gap 12 (5-15); BUN 33 mg/dL (4-19); BUN/Creat Ratio 31.1 RATIO (10-20); Calcium,Total 9.4 mg/dL (7.6-11.0); Chloride 88 mmol/L (98-108); Creatinine, Serum 1.07 mg/dL (0.70-1.20); EST Glomerular Filtration Rate 56 (>60); Estimated Creatinine Clearance 57.45 ml/min (50-250); Glucose 187 mg/dL (70-99); Potassium 3.5 mmol/L (3.3-5.1); Sodium Level 141 mmol/L (133-145)
[2025-04-07 16:55] LABS: Bedside Glucose 128 mg/dL (74-106)
[2025-04-07 17:12] LABS: Platelet Estimate A (ADEQ)
[2025-04-07] MEDS: Montelukast 10 MG Tablet PO (21:15)
[2025-04-07 21:50] LABS: Bedside Glucose 239 mg/dL (74-106)
[2025-04-07] MEDS: MELATONIN 10 MG TABLET PO (23:23)
[2025-04-08] VITALS (15 sets, daily range): BP systolic 126–145; BP diastolic 74–112; PULSE 57–98; RESP 12–20; TEMP 36.3–36.6; O2SAT 97–100; BMI 45.3
[2025-04-08] MEDS: MethylPREDNISolone 125 MG/2 ML Vial 60 MG IV ×2 (05:50→11:44)
[2025-04-08] MEDS: 0.9% Saline Lock 10 ML Syringe IV ×3 (05:51→18:17)
[2025-04-08] MEDS: Piperacil/Tazobactam 3.375 GM in 0.9% Normal Saline (50mL MB+) 50 ML IV (05:51)
[2025-04-08 06:42] LABS: Anion Gap 9 (5-15); BUN 33 mg/dL (4-19); BUN/Creat Ratio 40.4 RATIO (10-20); Calcium,Total 8.9 mg/dL (7.6-11.0); Carbon Dioxide 43.6 mmol/L (21.0-32.0); Chloride 87 mmol/L (98-108); Creatinine, Serum 0.82 mg/dL (0.70-1.20); EST Glomerular Filtration Rate 77 (>60); Estimated Creatinine Clearance 74.56 ml/min (50-250); Glucose 149 mg/dL (70-99); Potassium 2.8 mmol/L (3.3-5.1); Sodium Level 139 mmol/L (133-145)
[2025-04-08] MEDS: Ipratropium/Albuterol Sulfate 3 ML AMPUL.NEB INHALATION ×4 (06:59→19:54)
--- NOTE | 2025-04-08 08:43 | PCM.PN.HOSP ---
Reason for Visit Reason for Visit: Diagnoses Elevated white blood cell count, unspecified (04/05/25) Morbid (severe) obesity due to excess calories (04/05/25) Morbid (severe) obesity with alveolar hypoventilation (04/05/25) Acidosis, unspecified (04/05/25) Obstructive sleep apnea (adult) (pediatric) (04/05/25) Other pericardial effusion (noninflammatory) (04/05/25) Chronic atrial fibrillation, unspecified (04/05/25) Chronic obstructive pulmonary disease with (acute) exacerbation (04/05/25) Acute respiratory failure with hypoxia (04/05/25) Localized edema (04/05/25) Other specified abnormal findings of blood chemistry (04/05/25) Body mass index [BMI] 45.0-49.9, adult (04/05/25) 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 (04/05/25) Objective Data Objective Data Vital Signs: Vital Signs Temp Pulse Resp BP Pulse Ox O2 Del Method O2 Flow Rate 97.9 F 60 13 145/86 H 98 Bi-pap 4 04/08/25 03:00 04/08/25 04:02 04/08/25 04:02 04/08/25 03:00 04/08/25 04:02 04/08/25 03:00 04/07/25 21:00 FiO2 35 04/08/25 04:02 Oxygen Flow Rate (L/min) 4 Oxygen Delivery Method Bi-pap Weight: 248 lb 0.321 oz Body Mass Index (BMI) 45.3 Intake & Output: Intake and Output for Last 24 Hours 04/06/25 04/07/25 04/08/25 23:59 23:59 23:59 Intake Total 100 / 100 653.9 / 893.9 290 / 290 Output Total 2550 / 3000 2100 / 2850 1200 / 1200 Balance -2450 / -2900 -1446.1 / -1956.1 -910 / -910 Lab / Micro Data 04/07/25 15:30 04/08/25 05:40 Labs: Laboratory Results - last 24 hr 04/07/25 08:50: POC Glucose 160 H 04/07/25 11:37: POC Glucose 161 H 04/07/25 15:30: WBC 31.9 H*, RBC 4.26, Hgb 12.4, Hct 38.9, MCV 91.3, MCH 29.1, MCHC 31.9 L D, RDW Std Deviation 51.9 H, RDW Coeff of Beena 15.8 H, Plt Count 365, MPV 10.0, Immature Gran % (Auto) 1.000 H, Neut % (Auto) 94.1 H, Lymph % (Auto) 1.4 L, [place] % (Auto) 3.3, Eos % (Auto) 0.0, Baso % (Auto) 0.2, Absolute Neuts (auto) 30.0 H, Absolute Lymphs (auto) 0.46 L, Nucleated RBC % 0, Platelet Estimate A, Sodium 141, Potassium 3.5, Chloride 88 L, Carbon Dioxide 41.0 H, Anion Gap 12, BUN 33 H, Creatinine 1.07, Estim Creat Clear Calc 57.45, Est GFR (MDRD) Non-Af 56 L, BUN/Creatinine Ratio 31.1 H, Glucose 187 H, Calcium 9.4 04/07/25 16:08: POC Glucose 128 H 04/07/25 21:13: POC Glucose 239 H 04/08/25 05:40: Sodium 139, Potassium 2.8 L, Chloride 87 L, Carbon Dioxide 43.6 H, Anion Gap 9, BUN 33 H, Creatinine 0.82, Estim Creat Clear Calc 74.56, Est GFR (MDRD) Non-Af 77, BUN/Creatinine Ratio 40.4 H, Glucose 149 H, Calcium 8.9 Micro: Microbiology 04/06/25 05:45 Mucosa - Nasopharyngeal Respiratory Panel (PCR) - Final ABG Data ABG results: ABG 04/06/25 04/06/25 00:23 05:10 Blood Gas Notified Whom de curtis de curtis Rhythm Strip Rhythm Strip: A-fib Rate: 97 Ectopy: None Physical Exam Narrative Seen and examined. Patient feels better than yesterday. Came out of the BiPAP in the morning. She is talking in full sentences. No dyspnea. Denies chest pain or pressure Physical exam: General: Alert, Oriented x3, Cooperative, morbid obesity BMI 46.4 kg per square HEENT: Atraumatic, PERRLA, EOMI, Normocephalic. Oral: On BiPAP Neck: Supple, No JVD, Negative Carotid Bruits Chest wall/Lungs: Air entry severely diminished in all lung samaniego. Intermittent BiPAP/O2 through nasal cannula. No respiratory distress. Cardiovascular: A-fib, rate controlled normal S1,S2, No M/G/R Abdomen: Bowel Sounds Present, Soft, Non Tender, Non-Distended : No dysuria. No renal angle tenderness. No suprapubic tenderness. Extremities: Bilateral 3+ chronic thigh level edema. Capillary Refill Less than 3 Seconds Skin: No rashes, No breakdown Musculoskeletal: No Tenderness to Palpation of Joints or Extremities. ROM restricted due to edema Neurological: Cranial nerves II-XII grossly intact, DTR 2+/4. No acute focal neurological deficit. Psych/Mental Status: flat affect Assessment & Plan Assessment/Plan (1) Acute exacerbation of chronic obstructive pulmonary disease (COPD): (2) Pericardial effusion: (3) Leukocytosis: QUALIFIERS: Leukocytosis type: unspecified Qualified Code(s): D72.829 - Elevated white blood cell count, unspecified (4) Lactic acidosis: (5) Acute hypoxic respiratory failure: (6) Bilateral edema of lower extremity: (7) Elevated brain natriuretic peptide (BNP) level: (8) Morbid obesity with BMI of 45.0-49.9, adult: (9) Obesity hypoventilation syndrome: (10) WINIFRED (obstructive sleep apnea): (11) Atrial fibrillation: QUALIFIERS: Atrial fibrillation type: unspecified chronic Qualified Code(s): I48.20 - Chronic atrial fibrillation, unspecified (12) Chronic anticoagulation: PLAN: Plan 69-year-old female was admitted with dyspnea at rest, shortness of breath prolonging for about 1 month, normally 4 L at rest and 6 L on exertion, on CPAP at night. #Aute exacerbation of COPD: Was discharged on 03/24/2025 about 2 weeks ago. Patient is being managed on scheduled bronchodilator, IV Solu-Medrol, Mucinex, incentive spirometry and Pep. 04/08: Continue treatment. Blood culture negative for 48 hours. Respiratory panel negative. IV Zosyn changed to IV ceftriaxone. No focal consolidation identified on CT chest. High leukocytosis due to high dose of Solu-Medrol. IV Solu-Medrol decreased from 60 mg IV every 6 hourly to 40 mg every 8 hourly 2. Acute HFpEF diagnosed 2 weeks ago: Heart failure core measures including intake and output, fluid restriction less than 1500 mL, daily weight monitoring, kidney and electrolytes monitoring. Continue Lasix, 40 mg IV adjusted by patient's hemodynamics Echo 03/19/2025. Interpretation Summary The study was technically difficult. The LV systolic function is normal. EF is 65 %. There is Mild focal posterior mitral annular calcification. Right ventricular systolic pressure estimated to be 50 mmHg. Small (<1.0 cm) pericardial effusion. 04/08: Creatinine is 0.82. Bicarb 43.6. discontinue the IV Lasix drip. . Furosemide 40 mg IV twice daily. CT on admission reported about 1.4 cm pericardial effusion which was seen on the echo also. Therefore no new finding 3. Chronic A-fib: At rest heart rate is controlled on Eliquis and Cardizem as well as metoprolol 04/08: Heart rate is controlled 4. Hypertension: 5. Dyslipidemia: Fasting profile ordered. Blood pressure is controlled . Hypokalemia: K2.8. Anion gap 9. Bicarb 44. IV KCl is being replaced. Serum magnesium and phosphorus ordered. DVT prophylaxis - Patient is already on apixaban for #5 which will be continued. Clinical Impression(s) from Imaging Studies Chest X-Ray 04/05/25 21:20 IMPRESSION: No Acute Findings. Reading Location: [facility] Chest/Abdomen/Pelvis CT 04/05/25 23:58 IMPRESSION: Pericardial effusion is present measuring around 1.4 cm axial 88, clinically correlate. Small posterior layering left pleural effusion. Bilateral atelectasis without focal consolidation identified. No evidence of acute intra-abdominal process on noncontrast imaging. Diverticulosis without diverticulitis. Reading Location: [id number] Charges/Coding Visit Charges Inpatient E&M: 21176 Subs Hosp L2
[2025-04-08] MEDS: Insulin Lispro 100 UNIT/ML INSULN.PEN 8 UNIT SC ×2 (09:02→11:43)
[2025-04-08] MEDS: Insulin Lispro 100 UNIT/ML INSULN.PEN SC ×3 (09:02→21:54)
[2025-04-08] MEDS: Metoprolol Tartrate 50 MG Tablet PO ×2 (09:04→21:52)
[2025-04-08] MEDS: Potassium Chloride Oral Tablet 20 MEQ PO (09:04)
[2025-04-08] MEDS: Loratadine 10 MG Tablet PO (09:07)
[2025-04-08] MEDS: guaiFENesin/D-Methorphan TAB.SR.12H 2 TABLET PO ×2 (09:07→21:52)
[2025-04-08] MEDS: APIXABAN 5 MG TABLET PO ×2 (09:07→21:52)
[2025-04-08] MEDS: DULoxetine Hcl 60 MG Capsule PO (09:07)
[2025-04-08] MEDS: dilTIAZem CD 240 MG Capsule PO (09:07)
[2025-04-08] MEDS: Magnesium Chloride 64 MG Delay Rel.Tablet 128 MG PO ×2 (09:07→21:52)
[2025-04-08] MEDS: Fluticasone 0.05% 1 SPRAY NASAL.SRY 2 SPRAY NASAL (09:08)
[2025-04-08] MEDS: Pantoprazole Sodium 40 MG Tablet PO (09:12)
[2025-04-08 12:14] LABS: Bedside Glucose 289 mg/dL (74-106)
[2025-04-08] MEDS: Potassium Chloride 10mEq/100mL 10 MEQ/100 ML IV.SOLN. 100 MEQ IV BOLUS ×2 (13:51→15:14)
[2025-04-08] MEDS: Doxycycline 100 MG CAPSULE PO ×2 (14:01→21:52)
[2025-04-08 14:04] LABS: Bedside Glucose 175 mg/dL (74-106)
--- NOTE | 2025-04-08 14:21 | CASEMGMT ---
LUIS NOLAND received script for hospital bed and referral sent to [facility], preferred provider, with request to call to setup delivery. LUIS NOLAND called and updated regarding hospital bed setup and that message was left with Roc's office regarding status of bipap setup. LUIS NOLAND updated regarding resumption of HHC and SW added to services. voiced appreciation and had no further questions or concerns.
[2025-04-08 14:37] LABS: Magnesium 2.5 mg/dL (1.5-2.2); Phosphorus 4.4 mg/dL (2.7-4.5)
[2025-04-08] MEDS: Potassium Chloride Oral Tablet 20 MEQ 40 MEQ PO ×2 (17:20→18:17)
[2025-04-08 17:24] LABS: Bedside Glucose 81 mg/dL (74-106)
[2025-04-08] MEDS: Furosemide 40 MG/4 ML Vial IV (18:17)
[2025-04-08] MEDS: MELATONIN 10 MG TABLET PO (21:51)
[2025-04-08] MEDS: Montelukast 10 MG Tablet PO (21:53)
[2025-04-09] VITALS (13 sets, daily range): BP systolic 142–158; BP diastolic 77–92; PULSE 63–94; RESP 12–28; TEMP 35.6–36.8; O2SAT 93–100; BMI 45.3
[2025-04-09 00:33] LABS: Bedside Glucose 239 mg/dL (74-106)
[2025-04-09 06:31] LABS: Absolute Lymphocyte Count 0.37 X10^3/uL (0.83-4.51); Absolute Neutrophil Count 19.4 X10^3/uL (2.0-7.7); Basophil# 0.03 X10^3/uL; Basophil% 0.1 % (0-1); Hematocrit 39.9 % (37-47); Hemoglobin 12.5 g/dL (12.0-15.0); Lymphocyte # 0.37 X10^3/ul (0.83-4.51); Lymphocyte % 1.8 % (19-41); Mean Corp Hgb Conc 31.3 g/dL (32-36); Mean Corpuscular Hgb 28.8 pg (27.0-32.0); Mean Corpuscular Volume 91.9 fL (81-99); Monocyte# 0.68 X10^3/uL; Monocyte% 3.3 % (0-10); NRBC Flagged by Analyzer 0 % (0-5); Neutrophil # 19.41 X10^3/uL (2.7-7.7); Neutrophil % 94.1 % (47-70); POSITIVE DIFFERENTIAL YES; Platelet Count 259 K/mm3 (150-450); RBC Distribution Width CV 15.9 % (11.6-14.6); RBC Distribution Width SD 52.8 fl (35.1-43.9); Red Blood Count 4.34 M/mm3 (4.2-5.4); White Blood Count 20.6 K/mm3 (4.4-11.0)
[2025-04-09 06:56] LABS: Anion Gap 7 (5-15); BUN 32 mg/dL (4-19); BUN/Creat Ratio 46.9 RATIO (10-20); Calcium,Total 9.1 mg/dL (7.6-11.0); Carbon Dioxide 40.6 mmol/L (21.0-32.0); Chloride 91 mmol/L (98-108); Creatinine, Serum 0.67 mg/dL (0.70-1.20); EST Glomerular Filtration Rate 93 (>60); Estimated Creatinine Clearance 76.39 ml/min (50-250); Glucose 134 mg/dL (70-99); Sodium Level 139 mmol/L (133-145)
[2025-04-09] MEDS: Ipratropium/Albuterol Sulfate 3 ML AMPUL.NEB INHALATION ×4 (07:19→18:56)
--- NOTE | 2025-04-09 08:08 | PN_ITS ---
Subjective Subjective Up out of bed yesterday. not walking halls yet, no chest pain Objective Data Objective Data Vital Signs: Vital Signs Temp Pulse Resp BP Pulse Ox O2 Del Method O2 Flow Rate 96.0 F L 63 18 142/77 H 97 Bi-pap 4 04/09/25 03:27 04/09/25 03:27 04/09/25 03:27 04/09/25 03:27 04/09/25 03:27 04/09/25 05:00 04/08/25 22:00 FiO2 35 04/09/25 04:10 Oxygen Flow Rate (L/min) 4 Oxygen Delivery Method Bi-pap Weight: 112.4 kg Body Mass Index (BMI) 45.3 Intake & Output: Intake and Output for Last 24 Hours 04/07/25 04/08/25 04/09/25 23:59 23:59 23:59 Intake Total 653.9 / 893.9 1568.63 / 2068.63 500 / 500 Output Total 2100 / 2850 2350 / 2850 850 / 850 Balance -1446.1 / -1956.1 -781.37 / -781.37 -350 / -350 Lab / Micro Data Lab results narrative: wbc incr from steroids,, dry now 04/09/25 05:28 04/09/25 05:28 Labs: Laboratory Results - last 24 hr 04/08/25 05:40: Phosphorus 4.4, Magnesium 2.5 H 04/08/25 09:01: POC Glucose 175 H 04/08/25 11:40: POC Glucose 289 H 04/08/25 17:04: POC Glucose 81 04/08/25 21:51: POC Glucose 239 H 04/09/25 05:28: WBC 20.6 H, RBC 4.34, Hgb 12.5, Hct 39.9, MCV 91.9, MCH 28.8, M CHC 31.3 L, RDW Std Deviation 52.8 H, RDW Coeff of Beena 15.9 H, Plt Count 259, MPV 10.0, Immature Gran % (Auto) 0.700, Neut % (Auto) 94.1 H, Lymph % (Auto) 1.8 L, [place] % (Auto) 3.3, Eos % (Auto) 0.0, Baso % (Auto) 0.1, Absolute Neuts (auto) 19.4 H, Absolute Lymphs (auto) 0.37 L, Nucleated RBC % 0, Sodium 139, Potassium 4.0, Chloride 91 L, Carbon Dioxide 40.6 H, Anion Gap 7, BUN 32 H, Creatinine 0.67 L, Estim Creat Clear Calc 76.39, Est GFR (MDRD) Non-Af 93, BUN/Creatinine Ratio 46.9 H, Glucose 134 H, Calcium 9.1 Micro: Microbiology 04/05/25 22:25 Blood Culture (Wb) - Anticubital Left Blood Culture - Preliminary No growth in 48 hours. 04/05/25 22:30 Blood Culture (Wb) - Anticubital Right Blood Culture - Preliminary No growth in 48 hours. 04/06/25 05:45 Mucosa - Nasopharyngeal Respiratory Panel (PCR) - Final Rhythm Strip Rhythm Strip: A-fib Rate: 97 Ectopy: None Physical Exam Const oriented x3 and no apparent distress General Appearance: comfortable; Negative for cooperative Orientation / Consciousness: awake HEENT normocephalic, head/scalp atraumatic, external ears normal and moist oral mucous membranes Nose: no nasal discharge Mouth: oral and palatal mucosa normal and lips normal Eyes EOMs intact bilaterally Neck full ROM Lymph Lymphatic: no lymphadenopathy noted Chest Chest Narrative: Poor air mvt, no wheeze, long exp phase, some inc work breathing without Bipap. Resp no retractions Effort and Inspection: able to speak in complete sentences Auscultation: clear to auscultation bilaterally Cardio regular rate, regular rhythm, S1 normal heart sound, S2 normal heart sound, no murmurs, no rub, no gallops, no clicks, no JVD, peripheral pulses 2+ throughout and diaphoretic Cardio Narrative: Irregular rhythm, no tachycardia, no murmur no S3 GI normal to inspection, nondistended, normoactive bowel sounds no CVA tenderness Back/Spine no CVA tenderness and normal ROM Extremity normal to inspection Extremity Narrative: 1 pl edema Neuro oriented x3 and moves all extremities Assessment & Plan Assessment/Plan (1) Pericardial effusion: PLAN: The patient had a good diuresis There is no chest pain She has a preserved ejection fraction but significant pulm hypertension Follow-up echocardiography warranted, outpatient less tacycardia. less sob. will monitor clinically (2) WINIFRED (obstructive sleep apnea): PLAN: The patient does not have BiPAP at home has high flow oxygen at home Currently using 18/12 Tolerates the pressure No aerophagia Slept well last night with BiPAP well D/c settings will be 5 liter, Bipap 12/11 (3) Acute exacerbation of chronic obstructive pulmonary disease (COPD): PLAN: agree with steroid wean for d/c tomorrow Prednisone 40 mg 4 d, 30 mg 4 d 20 mg 4 d 10 mg 4 day (4) Acute hypoxic respiratory failure: PLAN: TV on 12/11 are 450s. pt is very comfortable mask leak so mask is being used too tight causing nasal abrasion will shift to home mask tomorrow on d/c The case is discussed with Dr. Crowe this morning possible d/c tomorrow
[2025-04-09] MEDS: Fluticasone 0.05% 1 SPRAY NASAL.SRY 2 SPRAY NASAL (08:42)
[2025-04-09] MEDS: Potassium Chloride Oral Tablet 20 MEQ 40 MEQ PO (08:43)
[2025-04-09] MEDS: APIXABAN 5 MG TABLET PO ×2 (08:44→22:49)
[2025-04-09] MEDS: DULoxetine Hcl 60 MG Capsule PO (08:44)
[2025-04-09] MEDS: Loratadine 10 MG Tablet PO (08:44)
[2025-04-09] MEDS: Pantoprazole Sodium 40 MG Tablet PO (08:45)
[2025-04-09] MEDS: Metoprolol Tartrate 50 MG Tablet PO ×2 (08:45→22:49)
[2025-04-09] MEDS: dilTIAZem CD 240 MG Capsule PO (08:45)
[2025-04-09] MEDS: Doxycycline 100 MG CAPSULE PO ×2 (08:45→22:49)
[2025-04-09] MEDS: Magnesium Chloride 64 MG Delay Rel.Tablet 128 MG PO ×2 (08:45→22:50)
[2025-04-09] MEDS: Insulin Lispro 100 UNIT/ML INSULN.PEN SC ×3 (08:46→23:00)
[2025-04-09] MEDS: guaiFENesin/D-Methorphan TAB.SR.12H 2 TABLET PO ×2 (08:46→22:50)
[2025-04-09] MEDS: Insulin Lispro 100 UNIT/ML INSULN.PEN 8 UNIT SC ×2 (08:46→11:34)
[2025-04-09 09:29] LABS: Bedside Glucose 157 mg/dL (74-106)
[2025-04-09] MEDS: 0.9% Saline Lock 10 ML Syringe IV ×2 (09:39→18:10)
[2025-04-09] MEDS: Furosemide 40 MG/4 ML Vial IV ×2 (09:39→18:10)
[2025-04-09] MEDS: Ceftriaxone 1 GM/50 ML BAG IV (09:39)
[2025-04-09 12:01] LABS: Bedside Glucose 277 mg/dL (74-106)
--- NOTE | 2025-04-09 14:45 | PN.HOSP_ITS ---
Reason for Visit Reason for Visit: Diagnoses Elevated white blood cell count, unspecified (04/05/25) Morbid (severe) obesity due to excess calories (04/05/25) Morbid (severe) obesity with alveolar hypoventilation (04/05/25) Acidosis, unspecified (04/05/25) Obstructive sleep apnea (adult) (pediatric) (04/05/25) Other pericardial effusion (noninflammatory) (04/05/25) Chronic atrial fibrillation, unspecified (04/05/25) Chronic obstructive pulmonary disease with (acute) exacerbation (04/05/25) Acute respiratory failure with hypoxia (04/05/25) Localized edema (04/05/25) Other specified abnormal findings of blood chemistry (04/05/25) Body mass index [BMI] 45.0-49.9, adult (04/05/25) 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 (04/05/25) Objective Data Objective Data Vital Signs: Vital Signs Temp Pulse Resp BP Pulse Ox O2 Del Method O2 Flow Rate 97.8 F 83 15 150/79 H 97 Nasal Cannula 6 04/09/25 08:21 04/09/25 08:45 04/09/25 08:21 04/09/25 08:21 04/09/25 13:25 04/09/25 08:27 04/09/25 13:25 FiO2 35 04/09/25 07:19 Oxygen Flow Rate (L/min) 6 Oxygen Delivery Method Nasal Cannula Weight: 247 lb 12.793 oz Body Mass Index (BMI) 45.3 Intake & Output: Intake and Output for Last 24 Hours 04/07/25 04/08/25 04/09/25 23:59 23:59 23:59 Intake Total 653.9 / 893.9 1568.63 / 2068.63 550 / 550 Output Total 2100 / 2850 2350 / 2850 850 / 850 Balance -1446.1 / -1956.1 -781.37 / -781.37 -300 / -300 Lab / Micro Data 04/09/25 05:28 04/09/25 05:28 Labs: Laboratory Results - last 24 hr 04/08/25 17:04: POC Glucose 81 04/08/25 21:51: POC Glucose 239 H 04/09/25 05:28: WBC 20.6 H, RBC 4.34, Hgb 12.5, Hct 39.9, MCV 91.9, MCH 28.8, M CHC 31.3 L, RDW Std Deviation 52.8 H, RDW Coeff of Beena 15.9 H, Plt Count 259, MPV 10.0, Immature Gran % (Auto) 0.700, Neut % (Auto) 94.1 H, Lymph % (Auto) 1.8 L, [place] % (Auto) 3.3, Eos % (Auto) 0.0, Baso % (Auto) 0.1, Absolute Neuts (auto) 19.4 H, Absolute Lymphs (auto) 0.37 L, Nucleated RBC % 0, Sodium 139, Potassium 4.0, Chloride 91 L, Carbon Dioxide 40.6 H, Anion Gap 7, BUN 32 H, C reatinine 0.67 L, Estim Creat Clear Calc 76.39, Est GFR (MDRD) Non-Af 93, B UN/Creatinine Ratio 46.9 H, Glucose 134 H, Calcium 9.1 04/09/25 08:24: POC Glucose 157 H 04/09/25 11:33: POC Glucose 277 H Micro: Microbiology 04/05/25 22:25 Blood Culture (Wb) - Anticubital Left Blood Culture - Preliminary No growth in 48 hours. 04/05/25 22:30 Blood Culture (Wb) - Anticubital Right Blood Culture - Preliminary No growth in 48 hours. 04/06/25 05:45 Mucosa - Nasopharyngeal Respiratory Panel (PCR) - Final Rhythm Strip Rhythm Strip: A-fib Rate: 97 Ectopy: None Physical Exam Narrative Seen and examined. Patient feels better in regard to shortness of breath. Not much by physical movement. On intermittent BiPAP at night. Dyspnea much better. Physical exam: General: Alert, Oriented x3, Cooperative, morbid obesity BMI 46.4 kg per square HEENT: Atraumatic, PERRLA, EOMI, Normocephalic. Oral: Deep oropharyngeal ClinOleic B/ Neck: Supple, No JVD, Negative Carotid Bruits Chest wall/Lungs: Air entry severely diminished in all lung samaniego. On 6 L of oxygen. Intermittent BiPAP at night. Cardiovascular: A-fib, rate controlled normal S1,S2, No M/G/R Abdomen: Bowel Sounds Present, Soft, Non Tender, Non-Distended : No dysuria. No renal angle tenderness. No suprapubic tenderness. Extremities: Bilateral 2+ above-knee edema better than before capillary Refill Less than 3 Seconds Skin: No rashes, No breakdown Musculoskeletal: No Tenderness to Palpation of Joints or Extremities. ROM restricted due to edema Neurological: Cranial nerves II-XII grossly intact, DTR 2+/4. No acute focal neurological deficit. Psych/Mental Status: flat affect Assessment & Plan Assessment/Plan (1) Acute exacerbation of chronic obstructive pulmonary disease (COPD): (2) Pericardial effusion: (3) Leukocytosis: QUALIFIERS: Leukocytosis type: unspecified Qualified Code(s): D 72.829 - Elevated white blood cell count, unspecified (4) Lactic acidosis: (5) Acute hypoxic respiratory failure: (6) Bilateral edema of lower extremity: (7) Elevated brain natriuretic peptide (BNP) level: (8) Morbid obesity with BMI of 45.0-49.9, adult: (9) Obesity hypoventilation syndrome: (10) WINIFRED (obstructive sleep apnea): (11) Atrial fibrillation: QUALIFIERS: Atrial fibrillation type: unspecified chronic Q ualified Code(s): I48.20 - Chronic atrial fibrillation, unspecified (12) Chronic anticoagulation: PLAN: Plan 69-year-old female was admitted with dyspnea at rest, shortness of breath prolonging for about 1 month, normally 4 L at rest and 6 L on exertion, on CPAP at night. 1. Aute exacerbation of COPD: Was discharged on 03/24/2025 about 2 weeks ago. Patient is being managed on scheduled bronchodilator, IV Solu-Medrol, Mucinex, incentive spirometry and Pep. 04/08: Continue treatment. Blood culture negative for 48 hours. Respiratory panel negative. IV Zosyn changed to IV ceftriaxone. No focal consolidation identified on CT chest. High leukocytosis due to high dose of Solu-Medrol. IV Solu-Medrol decreased from 60 mg IV every 6 hourly to 40 mg every 8 hourly 04/09: Discussed with the production hardener Dr. Mitchell Brian. Currently on BiPAP 18/12 at night. Wanted BiPAP at home with discharge setting 18/12 at 5 L with hospital bed. Possible anticipate discharge in next 1 to 2 days. Plan for steroid weaning with prednisone 40 mg daily for 4 days, 30 mg for 4 days 20 mg for 4 days then 10 mg for 4 days. WBC count/leukocytosis getting better on lowering dose of IV Solu-Medrol. Solu-Medrol changed to prednisone 40 mg daily from tomorrow a.m. 2. Acute HFpEF diagnosed 2 weeks ago but most likely she has acute on chronic HFrEF with severe pulmonary hypertension: Heart failure core measures including intake and output, fluid restriction less than 1500 mL, daily weight monitoring, kidney and electrolytes monitoring. Continue Lasix, 40 mg IV adjusted by patient's hemodynamics Echo 03/19/2025. Interpretation Summary The study was technically difficult. The LV systolic function is normal. EF is 65 %. There is Mild focal posterior mitral annular calcification. Right ventricular systolic pressure estimated to be 50 mmHg. Small (<1.0 cm) pericardial effusion. 04/08: Creatinine is 0.82. Bicarb 43.6. discontinue the IV Lasix drip. . Furosemide 40 mg IV twice daily. 04/09: BUN/creatinine 32/0.67. Continue IV diuretic. Bicarb 40.6, getting better. Electrolytes are maintained in normal range except chloride. CT on admission reported about 1.4 cm pericardial effusion which was seen on the echo also. Therefore no new finding 3. Chronic A-fib: At rest heart rate is controlled on Eliquis and Cardizem as well as metoprolol 04/08: Heart rate is controlled 04/09: Heart rate is controlled 4. Hypertension: 5. Dyslipidemia: Fasting profile ordered. Blood pressure is controlled 6. Hypokalemia: K2.8. Anion gap 9. Bicarb 44. IV KCl is being replaced. Serum magnesium and phosphorus ordered. DVT prophylaxis - Patient is already on apixaban for #5 which will be continued. Clinical Impression(s) from Imaging Studies Chest X-Ray 04/05/25 21:20 IMPRESSION: No Acute Findings. Reading Location: [facility] Chest/Abdomen/Pelvis CT 04/05/25 23:58 IMPRESSION: Pericardial effusion is present measuring around 1.4 cm axial 88, clinically correlate. Small posterior layering left pleural effusion. Bilateral atelectasis without focal consolidation identified. No evidence of acute intra-abdominal process on noncontrast imaging. Diverticulosis without diverticulitis. Reading Location: [facility] Microbiology Past 72 Hours 04/05/25 22:25 Blood Culture (Wb) - Anticubital Left Blood Culture - Preliminary No growth in 48 hours. 04/05/25 22:30 Blood Culture (Wb) - Anticubital Right Blood Culture - Preliminary No growth in 48 hours. Laboratory Results 04/08/25 17:04: POC Glucose 81 04/08/25 21:51: POC Glucose 239 H 04/09/25 05:28: WBC 20.6 H, RBC 4.34, Hgb 12.5, Hct 39.9, MCV 91.9, MCH 28.8, M CHC 31.3 L, RDW Std Deviation 52.8 H, RDW Coeff of Beena 15.9 H, Plt Count 259, MPV 10.0, Immature Gran % (Auto) 0.700, Neut % (Auto) 94.1 H, Lymph % (Auto) 1.8 L, [place] % (Auto) 3.3, Eos % (Auto) 0.0, Baso % (Auto) 0.1, Absolute Neuts (auto) 19.4 H, Absolute Lymphs (auto) 0.37 L, Nucleated RBC % 0, Sodium 139, Potassium 4.0, Chloride 91 L, Carbon Dioxide 40.6 H, Anion Gap 7, BUN 32 H, C reatinine 0.67 L, Estim Creat Clear Calc 76.39, Est GFR (MDRD) Non-Af 93, B UN/Creatinine Ratio 46.9 H, Glucose 134 H, Calcium 9.1 04/09/25 08:24: POC Glucose 157 H 04/09/25 11:33: POC Glucose 277 H Charges/Coding Visit Charges Inpatient E&M: 07473 Subs Hosp L2
[2025-04-09 17:26] LABS: Bedside Glucose 91 mg/dL (74-106)
[2025-04-09] MEDS: Montelukast 10 MG Tablet PO (22:50)
[2025-04-09] MEDS: MELATONIN 10 MG TABLET PO (22:59)
[2025-04-09 23:30] LABS: Bedside Glucose 242 mg/dL (74-106)
[2025-04-10] VITALS (10 sets, daily range): BP systolic 140–150; BP diastolic 80–86; PULSE 63–93; RESP 12–19; TEMP 35.8–36.7; O2SAT 90–98; BMI 45.3
[2025-04-10] MEDS: Ipratropium/Albuterol Sulfate 3 ML AMPUL.NEB INHALATION ×3 (06:54→15:20)
[2025-04-10 07:18] LABS: Absolute Lymphocyte Count 0.82 X10^3/uL (0.83-4.51); Absolute Neutrophil Count 19.1 X10^3/uL (2.0-7.7); Basophil# 0.03 X10^3/uL; Basophil% 0.1 % (0-1); Hematocrit 36.9 % (37-47); Hemoglobin 11.6 g/dL (12.0-15.0); Lymphocyte # 0.82 X10^3/ul (0.83-4.51); Lymphocyte % 3.8 % (19-41); Mean Corp Hgb Conc 31.4 g/dL (32-36); Mean Corpuscular Hgb 28.3 pg (27.0-32.0); Mean Platelet Vol. 10.5 fl (6.2-12.0); Monocyte# 1.31 X10^3/uL; Monocyte% 6.1 % (0-10); NRBC Flagged by Analyzer 0 % (0-5); Neutrophil # 19.09 X10^3/uL (2.7-7.7); Neutrophil % 89.3 % (47-70); Platelet Count 270 K/mm3 (150-450); RBC Distribution Width CV 15.7 % (11.6-14.6); RBC Distribution Width SD 51.3 fl (35.1-43.9); White Blood Count 21.4 K/mm3 (4.4-11.0)
[2025-04-10 07:43] LABS: Anion Gap 7 (5-15); BUN 35 mg/dL (4-19); BUN/Creat Ratio 44.3 RATIO (10-20); Calcium,Total 8.9 mg/dL (7.6-11.0); Carbon Dioxide 40.6 mmol/L (21.0-32.0); Chloride 89 mmol/L (98-108); Creatinine, Serum 0.79 mg/dL (0.70-1.20); EST Glomerular Filtration Rate 80 (>60); Estimated Creatinine Clearance 76.43 ml/min (50-250); Glucose 107 mg/dL (70-99); Sodium Level 136 mmol/L (133-145)
[2025-04-10] MEDS: Doxycycline 100 MG CAPSULE PO (09:08)
[2025-04-10] MEDS: Loratadine 10 MG Tablet PO (09:08)
[2025-04-10] MEDS: Metoprolol Tartrate 50 MG Tablet PO (09:08)
[2025-04-10] MEDS: guaiFENesin/D-Methorphan TAB.SR.12H 2 TABLET PO (09:08)
[2025-04-10] MEDS: Fluticasone 0.05% 1 SPRAY NASAL.SRY 2 SPRAY NASAL (09:08)
[2025-04-10] MEDS: DULoxetine Hcl 60 MG Capsule PO (09:09)
[2025-04-10] MEDS: Magnesium Chloride 64 MG Delay Rel.Tablet 128 MG PO (09:09)
[2025-04-10] MEDS: dilTIAZem CD 240 MG Capsule PO (09:09)
[2025-04-10] MEDS: Pantoprazole Sodium 40 MG Tablet PO (09:09)
[2025-04-10] MEDS: Furosemide 40 MG/4 ML Vial IV (09:09)
[2025-04-10] MEDS: APIXABAN 5 MG TABLET PO (09:09)
[2025-04-10] MEDS: Potassium Chloride Oral Tablet 20 MEQ 40 MEQ PO (09:10)
[2025-04-10] MEDS: 0.9% Saline Lock 10 ML Syringe IV (09:10)
[2025-04-10] MEDS: predniSONE 20 MG Tablet 40 MG PO (09:26)
[2025-04-10] MEDS: Ceftriaxone 1 GM/50 ML BAG IV (09:27)
[2025-04-10 09:37] LABS: Bedside Glucose 109 mg/dL (74-106)
--- NOTE | 2025-04-10 09:52 | CASEMGMT ---
Addendum entered by Payton Cline 04/10/25 16:07: LUIS NOLAND into pt room, pt and pt being educated by [facility] on NIV. Pt to take unit home. Pt states he understands how to use and denies any further homegoing needs. Pt ready for dc. Addendum entered by Payton Cline 04/10/25 14:18: RN NUZHAT into pt room, pt lying in bed in no distress. Pt states [facility] called her but she cannot recall what was said. Received [facility] message stating that the bipap is at the branch and pt could pick it up. TC to pt who states that Dhara the resp therapist for [facility] made him aware that the pt needs a NIV. He states she is working on the documentation from . Pt will bring portable tanks x2 to the hospital for dc. He states they have also ordered a w/c for at home from [facility] which will be delivered today or tomorrow. TC to Jewel at [facility], he will reach out to Dhara to see if this is the case, what information/documentation is needed from [facility] and if this can be set up today. Received notification back that Dhara is going to 's office to get the documentation and Zac the RT can be at pt home for education this evening. He states to plan for a 4pm dc. Updated hospitalist of change from bipap to NIV. He will dc pt. TC to Mary at [facility] to make aware pt is dc'ing today. Addendum entered by Payton Cline 04/10/25 13:49: Pt does not qualify for increase in home oxygen. Addendum entered by Payton Cline 04/10/25 10:27: Received rx for bipap. Sent to [facility] via [facility] at this time. Spoke with Jewel from [facility] who is checking to see if this can be set up at home today. Addendum entered by Payton Cline 04/10/25 09:55: TC to Jewel at [facility], left to make aware pt plan is to dc today for the hospital bed and that is planning on faxing a rx for bipap. Questioning if this can get set up for today as well. Requested returned call. Original Note: TC nate Mejias at 's office to give bipap rates, read from resp notes. Clarified with respiratory that these were correct per Adrienne. Randell will get rx signed and fax to this RN CM to send to [facility].
[2025-04-10 11:42] LABS: Bedside Glucose 200 mg/dL (74-106)
[2025-04-10] MEDS: Insulin Lispro 100 UNIT/ML INSULN.PEN 8 UNIT SC (12:40)
[2025-04-10] MEDS: Insulin Lispro 100 UNIT/ML INSULN.PEN SC (12:40)
--- NOTE | 2025-04-10 14:25 | PCM.DC ---
Discharge Instructions Diet Discharge Diet: Low fat / Low cholesterol DC O2, CPAP, BIPAP needs Home O2 Discharge instructions: No Dressing / Incision Discharge Activity: Return to Normal Activity Dressing / Incision Call your doctor if you observe: Fever of 101 or Higher, Shortness of breath, Dizziness, Fainting spells, Swelling in the ankles, Chest pain and Increased palpitations (irregular heartbeat) Follow Up Care Test Results: Test results from this visit will be discussed in further detail at your follow-up appointment, if applicable. Discharge Plan Admission Admit Date/Time: 04/05/25 23:26 Attending Provider: Geoff Galvan Primary Care Provider: Genia Carcamo Consulting Providers: Morales Bolden; Mitchell Biran V; Ken Vieyra Discharge Orders/Prescriptions Prescriptions: New prednisone 10 mg tablet 10 mg PO DAILY Qty: 32 0RF Rx Instructions: Take 4 tablets daily for 3 days then 3 tablets daily for 3 days then 2 tablets daily for 3 days then 1 tablet daily for 3 days then half tablet daily for 4 days levofloxacin 500 mg tablet 500 mg PO DAILY Qty: 7 0RF Continued diltiazem HCl [Tiadylt ER] 240 mg capsule,extended release 24 hr 240 mg PO DAILY potassium chloride 20 mEq tablet extended release 20 meq PO DAILY Qty: 90 3RF Patient Comments: WHEN PT TAKES FUROSEMIDE, SHE TAKES POTASSIUM WELL, CURRENTLY ONCE IN AM, AND ONCE AT NOON duloxetine 60 mg capsule,delayed release(DR/EC) 60 mg PO DAILY montelukast 10 MG tablet 10 mg PO QHS albuterol sulfate 90 mcg/actuation HFA aerosol inhaler 2 puff Inhalation Q4H PRN (Reason: Shortness Of Breath) Nurtec ODT 75 mg tablet,disintegrating 75 mg PO DAILY PRN (Reason: migraine) Patient Comments: TAKE 1 (ONE) TABLET BY MOUTH DAILY IF NEEDED FOR MIGRAINE Trelegy Ellipta 200-62.5-25 mcg blister with device 1 inh inhalation DAILY fluticasone propionate [24 Hour Allergy Relief] 50 mcg/actuation spray,suspension 2 spray intranasal QHS Rx Instructions: administer into each nostril furosemide 40 mg tablet 40 mg PO BID Rx Instructions: TAKE 1 TAB IN MORNING, AND 1 TAB IN AFTERNOON. metoprolol tartrate 50 mg tablet 50 mg PO BID Qty: 180 3RF Eliquis 5 mg tablet 5 mg PO BID Qty: 60 11RF Discontinued furosemide [Lasix] 40 mg tablet 40 mg PO BID Qty: 60 0RF prednisone 20 mg tablet 40 mg PO DAILY Qty: 10 0RF Referrals / Follow Up: Genia Carcamo MD [Primary Care Provider] - Within 1 Week Mitchell Brian MD [Med Staff - Active Staff] - Within 2 Weeks Disposition Disposition (needs filled in before D/C Order can be placed): Home, Self Care
--- NOTE | 2025-04-10 18:46 | PCM.DC.SUM ---
Providers Date of Admission: 04/05/25 Primary Care Physician: Genia Carcamo MD Consultations 04/06/25 08:53 Consult: Vamp Seamer / Pulmonary Medicine Routine Consulting Provider: Mitchell Brian V Reason for Consult: COPD exacerbation, recurrent admission EMERGENT Consult: No MD Notified: Yes Date Notified: 04/06/25 Time Notified: 08:53 Method of Notification: Verbal Reason For Visit: AE COPD, CHRONIC LE EDEMA WITH INC. BNP & Diagnosis Discharge Diagnosis (1) Acute exacerbation of chronic obstructive pulmonary disease (COPD): Status: Chronic Code(s): J44.1 - Chronic obstructive pulmonary disease with (acute) exacerbation (2) Pericardial effusion: Status: Acute Code(s): I31.39 - Other pericardial effusion (noninflammatory) (3) Leukocytosis: Status: Acute Code(s): D72.829 - Elevated white blood cell count, unspecified Qualifiers: Leukocytosis type: unspecified Qualified Code(s): D72.829 - Elevated white blood cell count, unspecified (4) Lactic acidosis: Status: Acute Code(s): E87.20 - Acidosis, unspecified (5) Acute hypoxic respiratory failure: Status: Acute Code(s): J96.01 - Acute respiratory failure with hypoxia (6) Bilateral edema of lower extremity: Status: Acute Code(s): R60.0 - Localized edema (7) Elevated brain natriuretic peptide (BNP) level: Status: Acute Code(s): R79.89 - Other specified abnormal findings of blood chemistry (8) Morbid obesity with BMI of 45.0-49.9, adult: Status: Acute Code(s): E66.01 - Morbid (severe) obesity due to excess calories; Z68.42 - Body mass index [BMI] 45.0-49.9, adult (9) Obesity hypoventilation syndrome: Status: Acute Code(s): E66.2 - Morbid (severe) obesity with alveolar hypoventilation (10) WINIFRED (obstructive sleep apnea): Status: Acute Code(s): G47.33 - Obstructive sleep apnea (adult) (pediatric) (11) Atrial fibrillation: Status: Chronic Code(s): I48.91 - Unspecified atrial fibrillation Qualifiers: Atrial fibrillation type: unspecified chronic Qualified Code(s): I48.20 - Chronic atrial fibrillation, unspecified (12) Chronic anticoagulation: Status: Acute Code(s): Z79.01 - assisted (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 anticoagulants Medications at Discharge Home Medications montelukast 10 mg tablet 10 mg PO QHS allergies 09/07/18 fluticasone fur. 200 mcg-umeclid 62.5 mcg-vilant 25 mcg inhalat.powder (Trelegy Ellipta) 1 inh inhalation DAILY SOB 07/08/23 rimegepant 75 mg disintegrating tablet (Nurtec ODT) 75 mg PO DAILY PRN migraine 07/08/23 albuterol sulfate 90 mcg/actuation aerosol inhaler 2 puff inhalation Q4H PRN Shortness Of Breath 02/13/24 diltiazem HCl 240 mg capsule,24 hr,extended release (Tiadylt ER) 240 mg PO DAILY heart rate 02/19/24 potassium chloride 20 mEq tablet,extended release 20 meq PO DAILY supplement #90 tabs 05/07/24 duloxetine 60 mg capsule,delayed release 60 mg PO DAILY mood 09/30/24 metoprolol tartrate 50 mg tablet 50 mg PO BID blood pressure #180 tabs 10/09/24 apixaban 5 mg tablet (Eliquis) 5 mg PO BID blood thinner #60 tabs 02/16/25 fluticasone propionate 50 mcg/actuation nasal spray,suspension (24 Hour Allergy Relief) 2 spray intranasal QHS nasal 03/19/25 furosemide 40 mg tablet 40 mg PO BID water pill 03/19/25 levofloxacin 500 mg tablet 500 mg PO DAILY #7 tabs 04/10/25 prednisone 10 mg tablet 10 mg PO DAILY #32 tabs 04/10/25 Hospital Course Operations None Procedures None Summary of Care Provided Minutes Spent on Discharge: 36 Hospital Course: Per HPI: PIPER OLIVER, is a 69 F with a past medical history of essential hypertension; on metoprolol and furosemide, history of hyperlipidemia; currently not on treatment, morbid obesity; with BMI of 49 this admission, WINIFRED, chronic atrial fibrillation; on diltiazem and apixaban, CAD, history of tobacco abuse; with subsequent asthma/COPD; on 4L NC at baseline on Trelegy Ellipta and as needed albuterol, narcolepsy; on modafinil, seasonal allergies; on montelukast, migraine headaches; on Nurtec ODT daily, depression; on duloxetine, history of cellulitis, history of septic olecranon bursitis of the Right elbow, history of hemorrhoids, history of appendectomy (~1994), history of Right heart catheterization (~2021) history of removal of ovary (~1994), history of GERD; currently not on treatment, osteopenia, OA; with chronic back pain on acetaminophen twice daily and recent admission here from March 19, 2025 to March 24, 2025 for treatment of AE COPD with elevated NT pro-BNP II of 1,003 pg/mL and mildly elevated troponin T of 19 bg/L complicated by [id number] Respiratory Insufficiency with LVEF ~65% and RVSP of ~50 mmHg with inability to evaluate for diastolic dysfunction who re-presents to [facility] ER complaining of shortness of breath, wheezing and lower extremity edema. Ms. Oliver reports her symptoms began this afternoon as she was trying to get up and walk which caused her to increase her supplemental oxygen to 6L NC when she suddenly became very SOB. She alleges her pulse-oximeter was reading in the ~40% range so she then activated EMS. The squad treated her with a DuoNeb and put her on 6L NC with an oxygen saturation of 96% - but with patient still very dyspneic. Her family noted she seemed to worsen when her steroids were tapered. Her LE edema present last admission has not significantly changed but she feels like she was in atrial fibrillation all day. She denies associated fever, chills, runny nose, sore throat, abdominal pain, nausea, vomiting, diarrhea, constipation, dysuria, hematuria, urinary frequency, headache or rash. In the ER she was noted to have clinical evidence of AE COPD complicated by an elevated NT pro-BNP II of 1,349 pg/mL present on admission with a corresponding CXR that revealed no acute findings recommended compounded by laboratory evidence of Leukocytosis of 25.4K with Left-shift of 1.2% along with Lactic Acidosis of 2.5 mmol/L with no signs of infection suspected to be due to recent steroid administration with all of these issues culminating to Acute Hypoxic Respiratory Failure requiring Airvo 50L with no ABG checked prior in the setting of OHS compounded by CT evidence of newly diagnosed ~1.4 cm Pericardial Effusion. She was then admitted to the PCU for ongoing care for a stay that is expected to extend beyond 2 midnights. Hospital Course: 1. Acute COPD exacerbation?69-year-old female presents to the hospital 2 weeks after discharge with recurrent COPD exacerbation. She had been discharged on steroids but no antibiotics, at that time her sputum culture demonstrated Proteus but does not appear that she was on any antibiotics during that hospitalization or discharge period. Pulmonology was consulted and recommended obtaining a BiPAP on discharge for her at home. Her respiratory status did improve with inhalers and steroids as well as antibiotics. She was discharged on a steroid taper and was able to sampler pickup BiPAP for home usage. I discharged her also with Levaquin 500 mg p.o. daily based on her renal function, her leukocytosis was likely mostly due to steroid usage however given her sensitivity in her respiratory status felt worth it to cover her empirically. I discussed with her the plan for discharge today and she expressed understanding of the risks and benefits of going home and would like to go home today. 2. Acute on chronic diastolic CHF/chronic A-fib/essential HTN/HLD?she had an echo on 03/19/2025 with an EF of 65% and RVSP of 50 mmHg, she was placed on IV Lasix on admission with improvement in her symptoms and her renal function was able to tolerate this. Will continue with her Lasix 40 mg p.o. twice daily on discharge as well as her metoprolol 50 mg p.o. twice daily. Recommend outpatient monitoring and medication adjustment by her primary care and cardiology. Will continue with Eliquis for her A-fib. Physical Exam Narrative General: Alert, Oriented x3, Cooperative, No apparent distress HEENT: Atraumatic, PERRLA, EOMI, Normocephalic Oral: Moist Mucosa Neck: Supple, No JVD Lungs: Diminished, Normal air movement, No rhonchi, No wheeze, No rales Cardiovascular: Regular rate, irregular Rhythm, Normal S1, Normal S2, No murmurs Abdomen: Soft, Non Tender, Non-Distended, No Hepato-splenomegaly Extremities: Edema, Capillary Refill Less than 3 Seconds Skin: No rashes, No breakdown Musculoskeletal: No Tenderness to Palpation of Joints or Extremities Neurological: No focal neurological deficits, Motor Exam 5/5 strength throughout, Sensory exam intact to light touch and pain Psych/Mental Status: Normal Affect, Appropriate Weight / BMI Weight Weight: 248 lb 0.321 oz Body Mass Index (BMI) 45.3 ABG / Lab / Microbiology Data 04/10/25 05:15 04/10/25 05:15 Laboratory: Laboratory Results - last 24 hr 04/09/25 22:53: POC Glucose 242 H 04/10/25 05:15: WBC 21.4 H, RBC 4.10 L, Hgb 11.6 L, Hct 36.9 L, MCV 90.0, MCH 28.3, MCHC 31.4 L, RDW Std Deviation 51.3 H, RDW Coeff of Beena 15.7 H, Plt Count 270, MPV 10.5, Immature Gran % (Auto) 0.700, Neut % (Auto) 89.3 H, Lymph % (Auto) 3.8 L, Wilkin % (Auto) 6.1, Eos % (Auto) 0.0, Baso % (Auto) 0.1, Absolute Neuts (auto) 19.1 H, Absolute Lymphs (auto) 0.82 L, Nucleated RBC % 0, Sodium 136, Potassium 4.0, Chloride 89 L, Carbon Dioxide 40.6 H, Anion Gap 7, BUN 35 H, Creatinine 0.79, Estim Creat Clear Calc 76.43, Est GFR (MDRD) Non-Af 80, BUN/Creatinine Ratio 44.3 H, Glucose 107 H, Calcium 8.9 04/10/25 09:02: POC Glucose 109 H 04/10/25 11:24: POC Glucose 200 H Microbiology: Microbiology 04/05/25 22:25 Blood Culture (Wb) - Anticubital Left Blood Culture - Preliminary No growth in 48 hours. 04/05/25 22:30 Blood Culture (Wb) - Anticubital Right Blood Culture - Preliminary No growth in 48 hours. 04/06/25 05:45 Mucosa - Nasopharyngeal Respiratory Panel (PCR) - Final D/C Instructions Discharge Diet: Low fat / Low cholesterol and 6 Cup Fluid Restriction Call your doctor if you observe: Fever of 101 or Higher, Shortness of breath, Dizziness, Fainting spells, Swelling in the ankles, Chest pain and Increased palpitations (irregular heartbeat) DC O2, CPAP, BIPAP Needs Home O2 Discharge instructions: No Meaningful Use Info Meaningful Use Meaningful Use Diagnoses (Choose all that apply): None applicable Ischemic Stroke Statin Dosing Therapy Reference: STATIN DOSE THERAPY REFERENCE: * Patients > 75 years receive moderate or high dose statin therapy. * Patients 75 years or YOUNGER should receive HIGH intensity statin dose unless contraindicated. You will be required to document reason for non-treatment if statin daily dose does not meet guidelines. HIGH DOSE STATIN THERAPY DAILY Atorvastatin > than or = to 40 mg Rosuvastatin > than or = to 20 mg Amlodipine + Atorvastatin > than or = to 2.5/40 mg Ezetimibe + Simvastatin 10/80 mg Simvastatin 80mg Discharge Plan Admission Admit Date/Time: 04/05/25 23:26 Attending Provider: Geoff Galvan Primary Care Provider: Genia Carcamo Consulting Providers: Morales Bolden; Mitchell Brian V; Ken Vieyra Discharge Orders/Prescriptions Prescriptions: New prednisone 10 mg tablet 10 mg PO DAILY Qty: 32 0RF Rx Instructions: Take 4 tablets daily for 3 days then 3 tablets daily for 3 days then 2 tablets daily for 3 days then 1 tablet daily for 3 days then half tablet daily for 4 days levofloxacin 500 mg tablet 500 mg PO DAILY Qty: 7 0RF Continued diltiazem HCl [Tiadylt ER] 240 mg capsule,extended release 24 hr 240 mg PO DAILY potassium chloride 20 mEq tablet extended release 20 meq PO DAILY Qty: 90 3RF Patient Comments: WHEN PT TAKES FUROSEMIDE, SHE TAKES POTASSIUM WELL, CURRENTLY ONCE IN AM, AND ONCE AT NOON duloxetine 60 mg capsule,delayed release(DR/EC) 60 mg PO DAILY montelukast 10 MG tablet 10 mg PO QHS albuterol sulfate 90 mcg/actuation HFA aerosol inhaler 2 puff Inhalation Q4H PRN (Reason: Shortness Of Breath) Nurtec ODT 75 mg tablet,disintegrating 75 mg PO DAILY PRN (Reason: migraine) Patient Comments: TAKE 1 (ONE) TABLET BY MOUTH DAILY IF NEEDED FOR MIGRAINE Trelegy Ellipta 200-62.5-25 mcg blister with device 1 inh inhalation DAILY fluticasone propionate [24 Hour Allergy Relief] 50 mcg/actuation spray,suspension 2 spray intranasal QHS Rx Instructions: administer into each nostril furosemide 40 mg tablet 40 mg PO BID Rx Instructions: TAKE 1 TAB IN MORNING, AND 1 TAB IN AFTERNOON. metoprolol tartrate 50 mg tablet 50 mg PO BID Qty: 180 3RF Eliquis 5 mg tablet 5 mg PO BID Qty: 60 11RF Discontinued furosemide [Lasix] 40 mg tablet 40 mg PO BID Qty: 60 0RF prednisone 20 mg tablet 40 mg PO DAILY Qty: 10 0RF Referrals / Follow Up: Genia Carcamo MD [Primary Care Provider] - 04/17/25 3:30 pm Mitchell Brian MD [Med Staff - Active Staff] - 04/21/25 1:45 pm Disposition Disposition (needs filled in before D/C Order can be placed): Home Health Service Charges/Coding Visit Charges Inpatient E&M: 34200 Disch Hosp >30min
== END 2025-04-10 16:39 | disposition home health service (06) | DRG 189 ==
LOC: ED 21:50 → PCU 04-06 00:04
PROVIDERS: Internal Medicine; Admitting Provider Internal Medicine; Emergency Provider Emergency Medicine; PCP Family Medicine; Referring Provider Internal Medicine; Visit Provider Family Medicine
DX: J96.21 Acute and chronic respiratory failure with hypoxia (principal); I31.39 Other pericardial effusion (noninflammatory); E87.20 Acidosis, unspecified; E66.2 Morbid (severe) obesity with alveolar hypoventilation; E87.29 Other acidosis; I48.20 Chronic atrial fibrillation, unspecified; J44.1 Chronic obstructive pulmonary disease with (acute) exacerbation; I50.30 Unspecified diastolic (congestive) heart failure; Z68.42 Body mass index [BMI] 45.0-49.9, adult; J98.11 Atelectasis; E87.3 Alkalosis; G43.909 Migraine, unspecified, not intractable, without status migrainosus; I27.20 Pulmonary hypertension, unspecified; I11.0 Hypertensive heart disease with heart failure; F32.A Depression, unspecified; J96.22 Acute and chronic respiratory failure with hypercapnia; E78.5 Hyperlipidemia, unspecified; I25.10 Atherosclerotic heart disease of native coronary artery without angina pectoris; M19.90 Unspecified osteoarthritis, unspecified site; J30.2 Other seasonal allergic rhinitis; D72.829 Elevated white blood cell count, unspecified; K57.90 Diverticulosis of intestine, part unspecified, without perforation or abscess without bleeding; Z87.891 Personal history of nicotine dependence; Z79.51 Long term (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 inhaled steroids; Z79.01 Long term (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 anticoagulants; R73.9 Hyperglycemia, unspecified; M85.80 Other specified disorders of bone density and structure, unspecified site; Z79.52 Long term (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 systemic steroids
CPT/HCPCS: 36415; 36600; 71045; 71250; 74176; 80048; 80053; 80061; 82803; 82962; 83036; 83605; 83735; 83880; 84100; 84484; 85025; 85652; 86140; 87040; 87633; 93005; 94003; 94640; 94660; 94668; 94762; 97162; 97166; 97530; 97535; 97802; 97803; 99285; 99406; Q9957; A4216; J1938

== ENCOUNTER → 2025-04-21 | Outpatient (CLI) | payer MEDICARE, SELFPAY ==
[2024-08-18 10:21] VITALS: BMI 40.8
[2025-04-21 16:17] LABS: Absolute Lymphocyte Count 0.78 X10^3/uL (0.83-4.51); Absolute Neutrophil Count 13.2 X10^3/uL (2.0-7.7); Basophil# 0.03 X10^3/uL; Basophil% 0.2 % (0-1); Eosinophil# 0.02 X10^3/uL; Eosinophils% 0.1 % (0-5); Hemoglobin 11.4 g/dL (12.0-15.0); Lymphocyte # 0.78 X10^3/ul (0.83-4.51); Lymphocyte % 5.2 % (19-41); Mean Corp Hgb Conc 30.8 g/dL (32-36); Mean Corpuscular Hgb 29.1 pg (27.0-32.0); Mean Corpuscular Volume 94.4 fL (81-99); Mean Platelet Vol. 9.7 fl (6.2-12.0); Monocyte# 0.82 X10^3/uL; Monocyte% 5.4 % (0-10); NRBC Flagged by Analyzer 0 % (0-5); Neutrophil # 13.23 X10^3/uL (2.7-7.7); Platelet Count 267 K/mm3 (150-450); RBC Distribution Width CV 15.9 % (11.6-14.6); RBC Distribution Width SD 55.5 fl (35.1-43.9); Red Blood Count 3.92 M/mm3 (4.2-5.4); White Blood Count 15.1 K/mm3 (4.4-11.0)
[2025-04-21 17:25] LABS: Anion Gap 9 (5-15); BUN 16 mg/dL (4-19); BUN/Creat Ratio 21.5 RATIO (10-20); Carbon Dioxide 41.5 mmol/L (21.0-32.0); Chloride 90 mmol/L (98-108); Creatinine, Serum 0.73 mg/dL (0.70-1.20); EST Glomerular Filtration Rate 88 (>60); Glucose 167 mg/dL (70-99); Potassium 4.4 mmol/L (3.3-5.1); Pro- Brain NATRIURETIC PEPTIDE 771 pg/mL (<=900); Sodium Level 140 mmol/L (133-145)
== END | disposition home or self-care (01) ==
LOC: LAB 15:47
PROVIDERS: PCP Family Medicine; Referring Provider Nurse Practitioner Gerontology; Visit Provider Nurse Practitioner Gerontology
DX: R06.02 Shortness of breath (principal); R60.9 Edema, unspecified; Z51.81 Encounter for therapeutic drug level monitoring; Z79.01 Long term (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 anticoagulants; Z79.899 Other long term (current) drug therapy
CPT/HCPCS: 36415; 80048; 83880; 85025

== ENCOUNTER → 2025-04-30 | Outpatient (CLI) | payer MEDICARE, SELFPAY ==
[2024-08-18 10:21] VITALS: BMI 40.8
[2025-04-30 13:30] LABS: Base Excess 19 mmol/L (-2 to +2); Bicarbonate 42.1 mmol/L (22-26); Blood Gas Specimen Type ART; Mode Not entered; O2 Delivery Device Cannula; PO2 120 mmHG (75-100); SITE L Radial; SO2 99 % (95-99); Total Carbon Dioxide 44 mmol/L; pCO2 54.1 mmHg (35-45)
--- OUTSIDE RECORDS SUMMARY | 2025-04-30 21:34 | XMS RPT_ITS | CCD ---
Author Organization [facility] Care Team Providers Care Vice President Of Operations Name Role Phone Dr. Christy Perea Primary Care Provider [phone] Belinda Barlow Attending Provider [phone] Dr. Christy Perea Referring Provider [phone] FISH Dahl Attending Provider Unavailable Primary Care Provider Unavailabl e Mitchell Millard Unavailable Mitchell Millard Unavailable Dr. Christy Perea Primary Care Provider Dr. Archie Gamino Emergency Provider Dr. Geoff Galvan Admit Provider Dr. Geoff Galvan Attending Provider Dr. Geoff Galvan Other Provider Dr. Preston Pineda Attending Provider [phone] Dr. Preston Pineda Other Provider Dr. Christy Perea Primary Care Provider Dr. Mitchell Brian V Referring Provider Dr. Mitchell Brian V Other Provider Dr. Car Fuller Attending Provider Dr. Christy Perea Primary Care Provider Dr. Mitchell Brian V Referring Provider [phone] Mitchell Brian V Other Provider Dr. Car Fuller Attending Provider Dr. Christy Perea Referring Provider Sherwin, Dr. Tariq Attending Provider Dr. Christy Perea Primary Care Provider Sherwin, Dr. Tariq Referring Provider Sherwin, Dr. Tariq Other Provider Nupur WHITTEN, PA Whitney Shelton Attending Provider Brit NORRIS, Dr. Christy Delgadillo Primary Care Provider Brit NORRIS, Dr. Christy Delgadillo Referring Provider Sherwin NORRIS, Dr. Tariq Attending Provider Curry Taylor MD Attending Provider Curry Taylor MD Referring Provider Elan NORRIS, Dr. Amin Attending Provider [facility] DRILL DOCTOR-C, Azael Attending Provider [facility] DRILL DOCTOR-C, Azael Referring Provider Brit NORRIS, Dr. Christy Delgadillo Attending Provider Brit NORRIS, Dr. Christy Delgadillo Primary Care Provider Brit NORRIS, Dr. Christy Delgadillo Referring Provider Curry Taylor MD Attending Provider Nishant DRILL DOCTOR-CBecca Attending Provider Nishant DRILL DOCTOR-CBecca Referring Provider Magdy CASTANEDA, Dr. Rogel Referring Provider Dr. Juan F Curran DO Emergency Provider Genia Chappell MD Primary Care Provider Bolden DO, Dr. Nielsen Admit Provider Unavail able Bolden DO, Dr. Nielsen Other Provider Unavail able Zia NORRIS, Dr. Cindi Peterson Attending Provider Dr. Chai Rider DO Other Provider Sherwin NORRIS, Dr. Tariq Attending Provider Adry DO, Dr. Paula Attending Provider Zia NORRIS, Dr. Cindi Peterson Other Provider Nina CASTANEDA, Dr. Suárez Attending Provider Nina CASTANEDA, Dr. Suárez Emergency Provider Genia Chappell MD Attending Provider Roc NORRIS, Dr. Mitchell Winkler Referring Provider Genia Chappell MD Referring Provider Brit NORRIS, Dr. Christy Delgadillo Primary Care Provider Brit NORRIS, Dr. Christy Delgadillo Referring Provider Angel NORRIS, Dr. Escamilla Emergency Provider ut Joel CASTANEDA, Dr. Nielsen Attending Provider Unav ailable Bolden DO, Dr. Nielsen Referring Provider Unav ailable Angel NORRIS, Dr. Escamilla Emergency Provider ut Joel , Dr. Nielsen Referring Provider Unav ailable Jarrell NORRIS, Dr. Rogers Attending Provider Roc NORRIS, Dr. Mitchell Winkler Other Provider Jarrell NORRIS, Dr. Rogers Other Provider Mandy NORRIS, Dr. Geoff Beal Attending Provider Jarrell NORRIS, Dr. Rogers Other Provider Jarrell NORRIS, Dr. Rogers Attending Provider Brit NORRIS, Dr. Christy Delgadillo Primary Care Provider Mandy NORRIS, Dr. Geoff Beal Other Provider Nishant DRILL DOCTOR, Becca Referring Unavailable Nishant DRILL DOCTOR, Becca Attending Unavailable Jolliff, Christy S Primary Care Unavailable Jolliff, Christy S Attending Unavailable Jolliff, Christy S Referring Unavailable Jolliff, Christy S Primary Care Unavailable Jolliff, Christy S Referring Unavailable Jolliff, Christy S Attending Unavailable Jolliff, Christy S Primary Care Unavailable Nishant DRILL DOCTOR, Becca Attending Unavailable Nishant DRILL DOCTOR, Becca Referring Unavailable Dona, Chalon Primary Care Unavailable Jolliff, Christy S Attending Unavailable Jolliff, Christy S Primary Care Unavailable Jolliff, Christy S Primary Care Unavailable MollCurry espinosa Attending Unavailable MollisonCurry Referring Unavailable Sibilia, Mitchell V Attending Unavailable Sibilia, Mitchell V Referring Unavailable Dona, Chalon Primary Care Unavailable Sherwin, Chandni Attending Unavailable Dona, Chalon Primary Care Unavailable Sibilia, Mitchell V Referring Unavailable Sibilia, Mitchell V Attending Unavailable Jolliff, Christy S Primary Care Unavailable Jolliff, Christy S Referring Unavailable Jolliff, Christy S Primary Care Unavailable Molljesús, Curry Attending Unavailable ElanBrennan Attending Unavailable Jolliff, Christy S Primary Care Unavailable Dona, Chalon Primary Care Unavailable Dona, Chalon Attending Unavailable Dona, Chalon Referring Unavailable Dilladr DRILL DOCTOR, Becca Referring Unavailable Dona, Chalon Primary Care Unavailable Nishant DRILL DOCTOR, Becca Attending Unavailable Sherwin, Chandni Referring Unavailable Jolliff, Christy S Primary Care Unavailable Braden Bower Attending Unavailable McMorrow DRILL DOCTOR, Azael Referring Unavailable Jolliff, Christy S Primary Care Unavailable McMorrow DRILL DOCTOR, Azael Attending Unavailable Dona, Chalon Primary Care Unavailable Jos eArmando Wood Attending Unavailable Sherwin, Chandni Referring Unavailable Jolliff, Christy S Primary Care Unavailable Sherwin, Chandni Attending Unavailable Sherwin, Chandni Attending Unavailable Jolliff, Christy S Primary Care Unavailable Jolliff, Christy S Referring Unavailable Jolliff, Christy S Referring Unavailable Jolliff, Christy S Primary Care Unavailable Molljesús, Curry Attending Unavailable Jolliff, Christy S Primary Care Unavailable Jolliff, Christy S Referring Unavailable MollCurry espinosa Attending Unavailable Ken Vieyra Attending Unavailable Orlando Bolden Admitting Unavailable Orlando Bolden Consulting Unavailable Orlando Bolden Referring Unavailable Dona, Chalon Primary Care Unavailable Sibilia, Mitchell V Consulting Unavailable Ken Vieyra Consulting Unavailable Cindi Lizarraga Attending Unavailable Orlando Bolden Consulting Unavailable Orlando Bolden Admitting Unavailable Ungur, Remus Referring Unavailable Dona, Chalon Primary Care Unavailable Chai Rider Unavailable Orlando Bolden Admitting Unavailable Orlando Bolden Consulting Unavailable Orlando Bolden Referring Unavailable Dona, Chalon Primary Care Unavailable Geoff Galvan Attending Unavailable Sibilia, Mitchell V Consulting Unavailable Ken Vieyra Consulting Unavailable Jolliff, Christy S Referring Unavailable Jolliff, Christy S Primary Care Unavailable Hannah ESPARZA, Husam Redman Attending Unavailable Sibchiqui Mitchell V Referring Unavailable Dona, Chalon Primary Care Unavailable Genia Chappell Attending Unavailable Chandni Courtney Attending Unavailable Jolliff, Christy S Referring Unavailable Jolliff, Christy S Primary Care Unavailable Geoff Galvan Attending Unavailable Geoff aGlvan Consulting Unavailable Orlando Bolden Consulting Unavailable Orlando Bolden Admitting Unavailable Ungur, Remus Referring Unavailable Dona, Chalon Primary Care Unavailable Chai Rider Attending Unavailable Chai Rider Consulting Unavailable Cindi Lizarraga Attending Unavailable Cindi Lizarraga Consulting Unavailable Orlando Bolden Attending Unavailable Orlando Bolden Attending Unavailable Jolliff, Christy S Primary Care Unavailable Jolliff, Christy S Referring Unavailable Curry Taylor Attending Unavailable Jolliff, Christy S Primary Care Unavailable Brennan Ansari Attending Unavailable Allergies Allergy Classification Reported Allergen(s) Allergy Type Date of Onset Reaction(s) Facility (20 sources) house dust allergenic extract Drug Allergy 03-31-2022 Unknown [facility] (20 sources) Mold Extract Drug Allergy 03-31-2022 [facility] Work Phone: (14 sources) Feather; Translations: [feathers] Drug Allergy 06-30-2022 [facility] Work Phone: (5 sources) House dust mite Allergy to substance 06-30-2022 [facility] Work Phone: (1 source) house dust allergenic extract Drug Allergy 04-05-2025 [facility] Repository (1 source) Mold Extract Drug Allergy 04-05-2025 [facility] Repository Medications Current Medications Medication Drug Class(es) Dates Sig (Normalized) Sig (Original) [id number] 200 actuat albuterol 0.09 mg/actuat metered dose inhaler (20 sources) beta2-Adrenergic Agonist Start: 02-13-2024 Albuterol Sulfate 90 mcg/actuation HFA aerosol inhaler Active 2 NMA INHALATION Q4H as needed for Shortness Of Breath February 13, 2024 12:47pm Start: 02-13-2024 take 1 puff(s) by in halation every four hours Albuterol Sulfate Active 2 PUFF INHALATION Q4H February 13, 2024 12:47pm Start: 06-30-2022 albuterol sulf ate (PROAIR DIGIHALER) 90 mcg/actuation aebs Inhale 2 Inhalation as instructed four times daily. 0 06/30/2022 Active Start: 10-20-2018 End: 02-13-2024 Albuterol Sulfate 90 mcg/act uation HFA aerosol inhaler Discontinued 2 NMA INHALATION EVERY 4 HOURS NEEDED as needed for Shortness Of Breath October 20, 2018 2:45pm February 13, 2024 12:50pm Start: 10-20-2018 End: 02-13-2024 take 1 puff(s) by inhalation every four hours as needed Albuterol Sulfate Discontinued 2 PUFF INHALATION EVERY 4 HOURS NEEDED October 20, 2018 2:45pm February 13, 2024 12:50pm Start: 10-20-2018 take 1 puff(s) by in halation every four hours as needed Albuterol Sulfate Active 2 PUFF INHALATION EVERY 4 HOURS NEEDED October 20, 2018 2:45pm Start: 09-07-2018 End: 10-20-2018 take 1 puff(s) by inhalation every four hours as needed Albuterol Sulfate Discontinued 2 PUFF INHALATION EVERY 4 HOURS NEEDED September 07, 2018 8:55pm October 20, 2018 2:46pm Start: 09-07-2018 End: 10-20-2018 Albuterol Sulfate 90 MCG inh aler Discontinued 2 NMA INHALATION EVERY 4 HOURS NEEDED as needed for Shortness Of Breath September 07, 2018 12:00am October 20, 2018 2:46pm Start: 09-07-2018 End: 10-20-2018 take 1 puff(s) by inhalation every four hours as needed Albuterol Sulfate Discontinued 2 PUFF INHALATION EVERY 4 HOURS NEEDED September 07, 2018 12:00am October 20, 2018 2:46pm Comment on above: Inhale 2 Inhalation as instructed four times daily. apixaban 5 mg oral tablet (20 sources) Factor Xa Inhibitor Start: 02-19-2024 End: 02-16-2025 take 1 tablet by mouth twice daily Apixaban (Eliquis) 5 mg tablet Active 5 mg PO TWICE A DAY 60 February 16, 2025 2:44pm Start: 01-21-2024 End: 02-19-2024 take 2 tablets by mouth twice daily, then take 1 tablet by mouth twice daily Apixaban (Eliquis) 5 mg tablet Discontinued 5 mg PO TWICE A DAY January 21, 2024 1:00am February 19, 2024 11:25am 10 mg twice a day for the first week. Then 5 mg twice a day. 24 hr dilTIAZem hydrochloride 240 mg extended release oral capsule (20 sources) Calcium Channel Garret Start: 02-19-2024 take 1 capsule by mouth once daily, then take 1 capsule by mouth every twenty-four hours Diltiazem Hcl (Tiadylt Er) 240 mg capsule,extended release 24 hr Active 240 mg PO DAILY February 19, 2024 12:00am Start: 01-21-2024 End: 02-19-2024 take 1 capsule by mouth once daily, then take 1 capsule by mouth every twenty-four hours Diltiazem Hcl (Cardizem Cd) 180 mg capsule,extended release 24hr Discontinued 180 mg PO DAILY January 21, 2024 1:00am February 19, 2024 10:30am DULoxetine 60 mg delayed release oral capsule (8 sources) Serotonin and Norepinephrine Reuptake Inhibitor Start: 09-30-2024 take 1 capsule by mouth once daily Duloxetine 60 mg capsule,delayed release(DR/EC) Active 60 mg PO DAILY September 30, 2024 1:00am fluticasone propionate 0.05 mg/actuat metered dose nasal spray (20 sources) Corticosteroid Start: 07-08-2023 End: 03-19-2025 take 50 ug nasal route at bedtime Fluticasone Propionate (24 Hour Allergy Relief) 50 mcg/actuation spray,suspension Active 2 NMA INTRANASAL AT BEDTIME March 19, 2025 12:00am administer into each nostril Start: 07-08-2023 Fluticasone Pr opionate Active 2 SPRAY INTRANASAL AT BEDTIME July 08, 2023 12:00am Cvrqrmhublg-Cempsfufi-Qaybxd er (19 sources) Start: 07-08-2023 Dgaxaplwkue-Ihvwgtjte-Xmgnxs er (Trelegy Ellipta) 200-62.5-25 mcg blister with device Active 1 NMA INHALATION DAILY July 08, 2023 12:00am Start: 07-08-2023 Fluticasone-Um eclidin-Vilanter (Trelegy Ellipta) 200-62.5-25 mcg blister with device Active 1 INH INHALATION DAILY July 07, 2023 11:00pm Start: 07-08-2023 Fluticasone-Um eclidin-Vilanter (Trelegy Ellipta) 200-62.5-25 mcg blister with device Active 1 INH INHALATION DAILY July 08, 2023 12:00am levoFLOXacin 500 mg oral tablet (2 sources) Quinolone Antimicrobial Start: 04-10-2025 take 1 tablet by mouth once daily Levofloxacin 500 mg tablet Active 500 mg PO DAILY April 10, 2025 12:00am metoprolol tartrate 50 mg oral tablet (20 sources) beta-Adrenergic Garret Start: 10-09-2024 take 1 tablet by mouth twice daily Metoprolol Tartrate 50 mg tablet Active 50 mg PO TWICE A DAY 180 October 09, 2024 1:00am Start: 09-19-2024 End: 10-09-2024 take 2 tablets by mouth twice daily Metoprolol Tartrate 25 mg tablet Discontinued 50 mg PO TWICE A DAY 180 September 19, 2024 1:53pm October 09, 2024 2:19pm Start: 02-19-2024 End: 09-19-2024 take 1 tablet by mouth twice daily Metoprolol Tartrate 25 mg tablet Discontinued 25 mg PO TWICE A DAY 180 February 19, 2024 12:00am September 19, 2024 1:54pm montelukast 10 mg oral tablet (20 sources) Leukotriene Receptor Antagonist Start: 09-07-2018 take 1 tablet by mouth at bedtime Montelukast 10 MG tablet Active 10 mg PO AT BEDTIME September 07, 2018 12:00am Comment on above: Take 1 tablet by zulema th daily at bedtime. potassium chloride 20 meq extended release oral tablet (9 sources) Start: 05-07-2024 End: 04-24-2025 take 1 tablet by mouth once daily Potassium Chloride 20 mEq tablet extended release Active 20 meq PO DAILY April 24, 2025 4:45pm predniSONE 10 mg oral tablet (20 sources) Start: 04-10-2025 take 4 tablets by mouth once daily, then take 3 tablets by mouth once daily, then take 2 tablets by mouth once daily, then take 1 tablet by mouth once daily, then take 0.5 tablet by mouth once daily Prednisone 10 mg tablet Active 10 mg PO DAILY April 10, 2025 12:00am Take 4 tablets daily for 3 days then 3 tablets daily for 3 days then 2 tablets daily for 3 days then 1 tablet daily for 3 days then half tablet daily for 4 days Start: 03-24-2025 End: 04-10-2025 take 2 tablets by mouth once daily Prednisone 20 mg tablet Discontinued 40 mg PO DAILY March 24, 2025 12:00am April 10, 2025 2:48pm Start: 10-01-2024 End: 10-28-2024 Prednisone 20 mg tablet Discontinued mg PO October 01, 2024 1:00am October 28, 2024 3:22pm Start: 07-10-2023 End: 01-21-2024 take 2 tablets by mouth at breakfast Prednisone 20 mg Tablet Discontinued 40 mg PO WITH BREAKFAST 6 July 10, 2023 12:00am January 21, 2024 5:54pm Start: 07-10-2023 End: 01-21-2024 take 40 mg by mouth at breakfast Prednisone Discontinu ed 40 MG PO WITH BREAKFAST 6 July 10, 2023 12:00am January 21, 2024 5:54pm rimegepant 75 mg disintegrating oral tablet (19 sources) Start: 07-08-2023 take 1 tablet by mouth once daily as needed Rimegepant (Nurtec Odt) 75 mg tablet,disintegrating Active 75 mg PO DAILY as needed for migraine July 08, 2023 12:00am Completed/Discontinued Medications Medication Drug Class(es) Dates Sig (Normalized) Sig (Original) acetaminophen 300 mg / HYDROcodone bitartrate 5 mg oral tablet (8 sources) Opioid Agonist Start: 08-17-2024 End: 09-30-2024 Hydrocodone-Acetam inophen 5-300 mg tablet Discontinued 1 {tbl} PO Q4H as needed for pain 15 05August 17, 2024 September 30, 2024 3:16pm aspirin 81 mg chewable tablet (20 sources) Platelet Aggregation Inhibitor, Nonsteroidal Anti-inflammatory Drug Start: 04-08-2024 End: 05-07-2024 take 1 tablet by mouth once daily Aspirin (Aspirin Childrens) 81 mg tablet,chewable Discontinued 1 {tbl} PO DAILY April 08, 2024 12:00am May 07, 2024 1:11pm Start: 02-13-2024 End: 02-19-2024 take 1 tablet by mouth once daily Aspirin 81 mg tablet,delayed release (DR/EC) Discontinued 81 mg PO DAILY February 13, 2024 12:00am February 19, 2024 10:29am Start: 06-30-2022 take 1 tablet by zulema th once daily aspirin, enteric coated (ECOTRIN LOW STRENGTH) 81 mg EC tablet Take 1 tablet by mouth once daily. 0 06/30/2022 Active Start: 10-20-2018 End: 02-13-2024 take 1 tablet by mouth once daily Aspirin 81 mg tablet,chewable Discontinued 81 mg PO DAILY October 20, 2018 1:00am February 13, 2024 12:49pm Comment on above: Take 1 tablet by zulema th once daily. azithromycin 250 mg oral tablet (20 sources) Macrolide Antimicrobial Start: 10-01-2024 End: 10-28-2024 Azithromycin 250 mg tablet Discontinued 250 mg PO As Directed October 01, 2024 1:00am October 28, 2024 3:21pm Start: 07-10-2023 End: 01-21-2024 take 1 tablet by mouth once daily Azithromycin 500 mg tablet Discontinued 500 mg PO DAILY 3 July 10, 2023 12:00am January 21, 2024 5:53pm benzonatate 200 mg oral capsule (20 sources) Non-narcotic Antitussive Start: 11-14-2018 End: 05-12-2021 take 1 capsule by mouth three times daily as needed for cough Benzonatate 200 mg capsule Discontinued 200 mg PO THREE TIMES A DAY as needed for cough November 14, 2018 1:00am May 12, 2021 5:17pm calcium carbonate 1250 mg oral tablet (20 sources) Start: 09-07-2018 End: 09-30-2024 take 1 tablet by mouth once daily Calcium Carbonate 500 MG tablet Discontinued 500 mg PO DAILY September 07, 2018 12:00am September 30, 2024 3:15pm cephalexin 500 mg oral capsule (20 sources) Cephalosporin Antibacterial Start: 03-31-2022 End: 04-10-2022 take 1 capsule by mouth every twelve hours Cephalexin 500 mg capsule Discontinued 500 mg PO Q12H 20 March 31, 2022 12:00am April 09, 2022 12:00am April 10, 2022 12:04am Start: 10-03-2021 End: 10-13-2021 take 1 capsule by mouth every twelve hours Cephalexin 500 mg capsule Discontinued 500 mg PO Q12H 20 October 03, 2021 1:00am October 12, 2021 1:00am October 13, 2021 1:01am Start: 07-28-2021 End: 08-10-2021 take 1 capsule by mouth every eight hours Cephalexin 500 mg capsule Discontinued 500 mg PO Q8H July 28, 2021 12:00am August 10, 2021 2:49pm cetirizine hydrochloride 10 mg oral tablet (20 sources) Histamine-1 Receptor Antagonist Start: 07-08-2023 End: 04-06-2025 take 1 tablet by mouth once daily Cetirizine (24hour Allergy) 10 mg tablet Discontinued 10 mg PO DAILY March 19, 2025 12:00am April 06, 2025 12:14am citalopram 10 mg oral tablet (20 sources) Serotonin Reuptake Inhibitor Start: 09-07-2018 End: 10-20-2018 take 1 tablet by mouth once daily Citalopram 10 MG tablet Discontinued 10 mg PO DAILY September 07, 2018 12:00am October 20, 2018 2:44pm clindamycin 300 mg oral capsule (20 sources) Lincosamide Antibacterial Start: 11-21-2021 End: 03-31-2022 take 1 capsule by mouth three times daily Clindamycin Hcl 300 mg capsule Discontinued 300 mg PO THREE TIMES A DAY November 21, 2021 1:00am March 31, 2022 1:39pm Start: 12-02-2020 End: 08-10-2021 take 1 capsule by mouth three times daily Clindamycin Hcl 300 mg capsule Discontinued 300 mg PO THREE TIMES A DAY May 12, 2021 12:00am August 10, 2021 2:49pm cyclobenzaprine hydrochloride 10 mg oral tablet (20 sources) Muscle Relaxant Start: 02-27-2019 End: 08-10-2021 take 1 tablet by mouth at bedtime as needed for muscle spasms Cyclobenzaprine 10 mg tablet Discontinued 10 mg PO BEDTIME as needed for muscle spasm February 27, 2019 12:00am August 10, 2021 2:49pm escitalopram 20 mg oral tablet (20 sources) Serotonin Reuptake Inhibitor Start: 02-13-2024 End: 09-30-2024 take 1 tablet by mouth once daily Escitalopram Oxalate 20 mg tablet Discontinued 20 mg PO DAILY February 13, 2024 12:00am September 30, 2024 3:15pm Start: 10-20-2018 End: 02-13-2024 take 2 tablets by mouth at bedtime Escitalopram Oxalate 5 mg tablet Discontinued 10 mg PO AT BEDTIME October 20, 2018 1:00am February 13, 2024 12:48pm Start: 10-20-2018 End: 02-13-2024 take 10 mg by mouth at bedtime Escitalopram Oxalate Di scontinued 10 MG PO AT BEDTIME October 20, 2018 1:00am February 13, 2024 12:48pm Start: 10-20-2018 take 5 mg by mouth once daily Escitalopram Oxalate Active 5 MG PO DAILY October 20, 2018 2:43pm 30 actuat fluticasone furoate 0.1 mg/actuat / vilanterol 0.025 mg/actuat dry powder inhaler (20 sources) Corticosteroid, beta2-Adrenergic Agonist Start: 10-20-2018 End: 07-08-2023 Fluticasone Furoate-Vilanterol (Breo Ellipta) 100-25 mcg/dose blister with device Discontinued 1 NMA INHALATION DAILY October 20, 2018 1:00am July 08, 2023 6:25pm Start: 10-20-2018 End: 07-08-2023 Fluticasone Furoate-Vilanter ol (Breo Ellipta) 100-25 mcg/dose blister with device Discontinued 1 INH INHALATION DAILY October 20, 2018 1:00am July 08, 2023 6:25pm Start: 09-07-2018 take 1 puff(s) by in halation once daily Fluticasone Furoate-Vilanterol Active 2 PUFF INHALATION DAILY September 07, 2018 8:55pm Start: 09-07-2018 End: 07-10-2023 Fluticasone Furoate-Vilanter ol 200-25 blister with device Discontinued 2 NMA INHALATION DAILY September 07, 2018 12:00am July 10, 2023 12:50pm Start: 09-07-2018 End: 07-10-2023 take 1 puff(s) by inhalation once daily Fluticasone Furoate-Vilanterol Discontinued 2 PUFF INHALATION DAILY September 07, 2018 12:00am July 10, 2023 12:50pm Start: 09-07-2018 take 1 puff(s) by in halation once daily Fluticasone Furoate-Vilanterol Active 2 PUFF INHALATION DAILY September 06, 2018 11:00pm Comment on above: Inhale 1 Inhalation as instructed once daily. furosemide 40 mg oral tablet (20 sources) Loop Diuretic Start: End: take 1 tablet by mouth twice daily Furosemide (Lasix) 40 mg tablet Discontinued 40 mg PO TWICE A DAY 60 March 25, 2025 12:00am April 10, 2025 2:47pm Start: 03-19-2025 take 1 tablet by zulema th every twelve hours Furosemide 40 mg tablet Active 40 mg PO Q12H March 19, 2025 12:00am Start: 05-07-2024 End: 03-19-2025 take 1 tablet by mouth once daily in the morning Furosemide 40 mg tablet Discontinued 40 mg PO EVERY MORNING 90 May 07, 2024 12:00am March 19, 2025 9:45pm loratadine 10 mg oral tablet (20 sources) Start: 06-30-2022 take 1 tablet by mouth once daily as needed loratadine (CLARITIN) 10 mg tablet Take 1 tablet by mouth once daily as needed (for allergy symptoms.). 0 06/30/2022 Active Start: 09-07-2018 End: 07-08-2023 take 1 capsule by mouth once daily Loratadine 10 MG capsule Discontinued 10 mg PO DAILY September 07, 2018 12:00am July 08, 2023 6:25pm Comment on above: Take 1 tablet by zulema th once daily as needed (for allergy symptoms.). modafinil 100 mg oral tablet (8 sources) Sympathomimetic-like Agent Start: 2023 End: 2024 take 1 tablet by mouth once daily as needed Modafinil 100 mg tablet Discontinued 100 mg PO daily as needed for narcolepsy October 01, 2024 1:00am March 19, 2025 10:45pm omeprazole 40 mg delayed release oral capsule (8 sources) Proton Pump Inhibitor Start: 2023 End: 2024 take 1 capsule by mouth once daily Omeprazole 40 mg capsule,delayed release(DR/EC) Discontinued 40 mg PO DAILY May 07, 2024 12:00am December 04, 2024 2:48pm pantoprazole 40 mg delayed release oral tablet (20 sources) Proton Pump Inhibitor Start: 2017 End: 2023 take 1 tablet by mouth once daily Pantoprazole 40 mg tablet,delayed release (DR/EC) Discontinued 40 mg PO DAILY August 10, 2021 2:50pm May 07, 2024 1:11pm Comment on above: Take 1 tablet by zulema once daily. sulfamethoxazole 800 mg / trimethoprim 160 mg oral tablet (20 sources) Dihydrofolate Reductase Inhibitor Antibacterial, Sulfonamide Antimicrobial Start: 2020 End: 2020 Sulfamethoxazole-T rimethoprim (Bactrim Ds) 800-160 mg tablet Discontinued 1 {tbl} PO TWICE A DAY 2021 12:00am October 03, 2021 3:42pm 7 actuat umeclidinium 0.0625 mg/actuat dry powder inhaler (20 sources) Anticholinergic Start: 2021 take 1 puff(s) by inhalation once daily umeclidinium (INCRUSE ELLIPTA) 62.5 mcg/actuation inhaler Inhale 1 Puff as instructed once daily. 0 06/30/2022 Active Start: 10-20-2018 take 62.5 ug by inha lation once daily Umeclidinium (Incruse Ellipta) 62.5 mcg/actuation blister with device Active 1 INH INHALATION DAILY October 20, 2018 2:42pm Start: 10-20-2018 End: 07-08-2023 take 62.5 ug by inhalation once daily Umeclidinium (Incruse Ellipta) 62.5 mcg/actuation blister with device Discontinued 1 NMA INHALATION DAILY October 20, 2018 1:00am July 08, 2023 6:27pm Start: 10-20-2018 End: 07-08-2023 take 62.5 ug by inhalation once daily Umeclidinium (Incruse Ellipta) 62.5 mcg/actuation blister with device Discontinued 1 INH INHALATION DAILY October 20, 2018 12:00am July 08, 2023 5:27pm Start: 10-20-2018 End: 07-08-2023 take 62.5 ug by inhalation once daily Umeclidinium (Incruse Ellipta) 62.5 mcg/actuation blister with device Discontinued 1 INH INHALATION DAILY October 20, 2018 1:00am July 08, 2023 6:27pm Start: 10-20-2018 take 62.5 ug by inha lation once daily Umeclidinium (Incruse Ellipta) 62.5 mcg/actuation blister with device Active 1 INH INHALATION DAILY October 20, 2018 12:00am Start: 09-07-2018 End: 10-20-2018 Umeclidinium 62.5 MC blister with device Discontinued 2 NMA INHALATION DAILY September 07, 2018 12:00am October 20, 2018 2:46pm Start: 09-07-2018 End: 10-20-2018 take 1 puff(s) by inhalation once daily Umeclidinium Discontinued 2 PUFF INHALATION DAILY September 07, 2018 12:00am October 20, 2018 2:46pm Comment on above: Inhale 1 Puff as ins tructed once daily. Problems Active Problems Problem Classification Problem Date Documented Da te Episodic/Chronic Cardiac dysrhythmias (20 sources) Atrial fibrillation with rapid ventricular response; Translations: [Unspecified atrial fibrillation] Onset: 03-24-2025 01-21-2024 Chronic Cardiac dysrhythmias (12 sources) Tachycardia; Translations: [Tachycardia, unspecified] 02-13-2024 Episodic Chronic obstructive pulmonary disease and bronchiectasis (20 sources) Severe chronic obstructive pulmonary disease; Translations: [Chronic obstructive pulmonary disease, unspecified] Onset: 10-28-2024 Chronic Chronic obstructive pulmonary disease and bronchiectasis (20 sources) Bronchitis; Translations: [Bronchitis, not specified as acute or chronic] 11-14-2018 Episodic Congestive heart failure; nonhypertensive (20 sources) Congestive heart failure; Translations: [Heart failure, unspecified] Onset: 03-25-2025 03-19-2025 Chronic Coronary atherosclerosis and other heart disease (18 sources) Coronary arteriosclerosis; Translations: [Atherosclerotic heart disease of [place] coronary artery without angina pectoris] Onset: 10-28-2024 05-07-2024 Chronic Diseases of white blood cells (9 sources) Leukocytosis; Translations: [Elevated white blood cell count, unspecified] Onset: 04-10-2025 04-05-2025 Chronic Disorders of lipid metabolism (8 sources) Hyperlipidemia; Translations: [Hyperlipidemia, unspecified] Onset: 03-23-2025 03-17-2025 Chronic E Codes: Fall (8 sources) Fall; Translations: [Unspecified fall, initial encounter] 08-25-2024 Episodic Essential hypertension (18 sources) Hypertensive disorder; Translations: [Essential (primary) hypertension] Onset: 10-28-2024 02-19-2024 Chronic Fluid and electrolyte disorders (8 sources) Lactic acidosis; Translations: [Lactic acidosis] 04-05-2025 Episodic Malaise and fatigue (1 source) Other fatigue; Translations: [Other fatigue] Onset: 02-16-2025 Episodic Other aftercare (8 sources) Long-term current use of diuretic; Translations: [Encounter for therapeutic drug level monitoring] 08-15-2024 Episodic Other aftercare (20 sources) Long-term current use of anticoagulant; Translations: [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] 08-25-2024 Episodic Other aftercare (1 source) 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; Translations: [penitentiary (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 anticoagulants] Onset: 04-10-2025 Episodic Other circulatory disease (8 sources) H/O: atrial fibrillation; Translations: [Personal history of other diseases of the circulatory system] 08-25-2024 Episodic Other connective tissue disease (20 sources) Bursitis of olecranon of right elbow; Translations: [Olecranon bursitis, right elbow] 07-28-2021 Episodic Other connective tissue disease (20 sources) Bursitis; Translations: [Bursopathy, unspecified] 07-28-2021 Episodic Other connective tissue disease (20 sources) Infection of olecranon bursa of right elbow; Translations: [Other infective bursitis, right elbow] 08-15-2021 Episodic Other connective tissue disease (8 sources) Muscle pain; Translations: [Myalgia, unspecified site] 08-15-2024 Episodic Other lower respiratory disease (19 sources) Hypoxia; Translations: [Hypoxemia] 07-08-2023 Episodic Other lower respiratory disease (3 sources) Hypoxemia; Translations: [Hypoxemia] Onset: 04-29-2025 07-10-2023 Episodic Other lower respiratory disease (14 sources) Dyspnea; Translations: [Dyspnea, unspecified] 03-19-2025 Episodic Other lower respiratory disease (14 sources) Respiratory insufficiency; Translations: [Other abnormalities of breathing] 03-19-2025 Episodic Other lower respiratory disease (1 source) Shortness of breath; Translations: [Shortness of breath] Onset: 04-26-2025 Episodic Other lower respiratory disease (1 source) Other abnormalities of breathing; Translations: [Other abnormalities of breathing] Onset: 03-24-2025 Episodic Other nutritional; endocrine; and metabolic disorders (13 sources) Morbid obesity; Translations: [Morbid (severe) obesity due to excess calories] 02-19-2024 Chronic Other nutritional; endocrine; and metabolic disorders (6 sources) Morbid (severe) obesity due to excess calories; Translations: [Morbid obesity] Onset: 10-28-2024 02-19-2024 Chronic Other nutritional; endocrine; and metabolic disorders (18 sources) Body mass index 40+ - severely obese; Translations: [Morbid (severe) obesity due to excess calories] 03-19-2025 Chronic Other nutritional; endocrine; and metabolic disorders (8 sources) Alveolar hypoventilation; Translations: [Morbid (severe) obesity with alveolar hypoventilation] 04-05-2025 Chronic Other nutritional; endocrine; and metabolic disorders (1 source) Body mass index (BMI) 45.0-49.9, adult; Translations: [Body mass index [BMI] 45.0-49.9, adult] Onset: 04-10-2025 Chronic Other nutritional; endocrine; and metabolic disorders (1 source) Morbid (severe) obesity with alveolar hypoventilation; Translations: [Morbid (severe) obesity with alveolar hypoventilation] Onset: 04-10-2025 Chronic Other screening for suspected conditions (not mental disorders or infectious disease) (20 sources) Echocardiogram abnormal; Translations: [Abnormal findings on diagnostic imaging of heart and coronary circulation] Onset: 05-07-2024 Episodic Other skin disorders (20 sources) Sebaceous cyst of skin; Translations: [Sebaceous cyst] 05-12-2021 Episodic Other upper respiratory infections (20 sources) Acute sinusitis; Translations: [Acute sinusitis, unspecified] Episodic Mellisa-; endo-; and myocarditis; cardiomyopathy (except that caused by tuberculosis or sexually transmitted disease) (6 sources) Pericardial effusion; Translations: [Pericardial effusion] 04-06-2025 Episodic Pulmonary heart disease (2 sources) Secondary pulmonary hypertension; Translations: [Other secondary pulmonary hypertension] Chronic Residual codes; unclassified (13 sources) Sleep apnea; Translations: [Sleep apnea, unspecified] 02-19-2024 Chronic Residual codes; unclassified (5 sources) Sleep apnea, unspecified; Translations: [Unspecified sleep apnea] Onset: 10-28-2024 02-19-2024 Chronic Residual codes; unclassified (8 sources) Obstructive sleep apnea syndrome; Translations: [Obstructive sleep apnea (adult) (pediatric)] 04-05-2025 Chronic Residual codes; unclassified (1 source) Obstructive sleep apnea (adult) (pediatric); Translations: [Obstructive sleep apnea (adult) (pediatric)] Onset: 04-10-2025 Chronic Residual codes; unclassified (20 sources) Bilateral lower limb edema; Translations: [Localized edema] 03-17-2025 Episodic Residual codes; unclassified (1 source) Edema; Translations: [Edema, unspecified] 04-21-2025 Episodic Residual codes; unclassified (2 sources) Localized edema; Translations: [Localized edema] Onset: 04-08-2025 Episodic Respiratory failure; insufficiency; arrest (adult) (7 sources) Chronic hypoxemic respiratory failure; Translations: [Chronic respiratory failure with hypoxia] Onset: 04-29-2025 04-02-2025 Chronic Respiratory failure; insufficiency; arrest (adult) (20 sources) Acute respiratory failure; Translations: [Acute respiratory failure with hypoxia] Onset: 04-10-2025 07-08-2023 Episodic Skin and subcutaneous tissue infections (20 sources) Cellulitis and abscess of face; Translations: [Cellulitis of face] 11-21-2021 Episodic Spondylosis; intervertebral disc disorders; other back problems (20 sources) Backache; Translations: [Dorsalgia, unspecified] 02-27-2019 Episodic Unclassified (7 sources) With Nurse Practioner Azael Unclassified (1 source) Chronic atrial fibrillation, unspecified; Translations: [Chronic atrial fibrillation, unspecified] Onset: 04-10-2025 Unclassified (1 source) Other pericardial effusion (noninflammatory); Translations: [Other pericardial effusion (noninflammatory)] Onset: 04-10-2025 Unclassified (1 source) Acidosis, unspecified; Translations: [Acidosis, unspecified] Onset: 04-10-2025 Past or Other Problems Problem Classification Problem Date Documented Da te Episodic/Chronic Fracture of upper limb (12 sources) Fracture of left shoulder girdle, part unspecified, initial encounter for closed fracture; Translations: [Fracture of left shoulder] Onset: 12-04-2024 08-25-2024 Episodic Genitourinary symptoms and ill-defined conditions (1 source) Painful micturition, unspecified; Translations: [Painful micturition, unspecified] Onset: 09-18-2024 Episodic Other injuries and conditions due to external causes (1 source) Encounter for examination and observation following other accident; Translations: [Encounter for examination and observation following other accident] Onset: 09-11-2024 Episodic Urinary tract infections (20 sources) Urinary tract infectious disease; Translations: [Urinary tract infection, site not specified] Onset: 01-09-2025 10-03-2021 Episodic Results Test Name Value Interpretation Reference Range Facility Absolute lymphocyte countOrd ered By: Becca Dillard on 04-21-2025 Lymphocytes Auto (Unsp spec) [#/Vol] 0.78 10*3/uL Low 0.83-4.51 [facility] Absolute neutrophil countOrd ered By: Becca Dillard on 04-21-2025 Neutrophils (Bld) [#/Vol] 13.2 10*3/uL High 2.0-7.7 [facility] Anion gap in Serum or Plasma Ordered By: Becca Dillard on 04-21-2025 Anion gap [Moles/Vol] 9 mmol/L 5-15 [facility] Automated lymphocyte count a s percentage of total leukocytesOrdered By: Becca Dillard on 04-21-2025 Lymphocytes/100 WBC Auto (Unsp spec) 5.2 % Low 19-41 [facility] BUN/creatinine ratioOrdered By: Becca Dillard on 04-21-2025 Urea nitrogen/Creatinine [Mass ratio] 21.5 mg/mg High 10- [facility] Basic Metabolic Profile (BMP )on 04-21-2025 BUN/CRE 21.5 RATIO High 10- [facility] Comment on above: Performed By: #### L 100.0100, L500.2500, L503.7505 ####[facility] [address] [place], [address] Calcium [Mass/Vol] 9.0 mg/dL Normal 7.6-11.0 [facility] Comment on above: Performed By: #### L 100.0100, L500.2500, L503.7505 ####[facility] [address] [place], [address] Chloride [Moles/Vol] 90 mmol/L Low 98-[address] [facility] Comment on above: Performed By: #### L 100.0100, L500.2500, L503.7505 ####[facility] [address] [place], [address] CO2 [Moles/Vol] 41.5 mmol/L High 21.0-32.0 [facility] Comment on above: Performed By: #### L 100.0100, L500.2500, L503.7505 ####[facility] [address] [place], [address] Creatinine [Mass/Vol] 0.73 mg/dL Normal 0.70-1.20 [facility] Comment on above: Performed By: #### L 100.0100, L500.2500, L503.7505 ####[facility] [address] [place], [address] GAP 9 Normal 5-15 [facility] Comment on above: Performed By: #### L 100.0100, L500.2500, L503.7505 ####[facility] [address] [place], [address] GFR/1.73 sq M.predicted among non-blacks MDRD (S/P/Bld) [Vol rate/Area] 88 mL/min/{1.73_m2} Normal >60 [facility] Comment on above: Result Comment: mL/m in/1.73m2 CKD-EPI Creatinine Equation (2020) Performed By: #### L 100.0100, L500.2500, L503.7505 ####[facility] [address] [place], [address] Glucose [Mass/Vol] 167 mg/dL High 70-99 [facility] Comment on above: Performed By: #### L 100.0100, L500.2500, L503.7505 ####[facility] [address] [place], [address] Potassium [Moles/Vol] 4.4 mmol/L Normal 3.3-5.1 [facility] Comment on above: Performed By: #### L 100.0100, L500.2500, L503.7505 ####[facility] [address] [place], [address] Sodium [Moles/Vol] 140 mmol/L Normal 133-145 [facility] Comment on above: Performed By: #### L 100.0100, L500.2500, L503.7505 ####[facility] [address] [place], [address] Urea nitrogen [Mass/Vol] 16 mg/dL Normal 4-19 [facility] Comment on above: Performed By: #### L 100.0100, L500.2500, L503.7505 ####[facility] [address] [place], [address] Basophil percentageOrdered B y: Becca Dillard on 04-21-2025 Basophils/100 WBC (Bld) 0.2 % 0-1 [facility] CBC W/Diff, Automatedon 03-27 Absolute Lymph 0.78 X10 3/uL Low 0.83-4.51 [facility] Comment on above: Performed By: #### L 100.0100, L500.2500, L503.7505 ####[facility] [address] [place], [address] Absolute Neut 13.2 X10 3/uL High 2.0-7.7 [facility] Comment on above: Performed By: #### L 100.0100, L500.2500, L503.7505 ####[facility] [address] [place], [address] Basophils/100 WBC (Bld) 0.2 % Normal 0-1 [facility] Comment on above: Performed By: #### L 100.0100, L500.2500, L503.7505 ####[facility] [address] [place], [address] Eosinophils/100 WBC (Bld) 0.1 % Normal 0-5 [facility] Comment on above: Performed By: #### L 100.0100, L500.2500, L503.7505 ####[facility] [address] [place], [address] Erythrocyte distribution width (RBC) [Ratio] 15.9 % High 11.6-14.6 [facility] Comment on above: Performed By: #### L 100.0100, L500.2500, L503.7505 ####[facility] [address] [place], [address] Hematocrit (Bld) [Volume fraction] 37.0 % Normal 37-47 [facility] Comment on above: Performed By: #### L 100.0100, L500.2500, L503.7505 ####[facility] [address] [place], [address] Hemoglobin (Bld) [Mass/Vol] 11.4 g/dL Low 12.0-15.0 [facility] Comment on above: Performed By: #### L 100.0100, L500.2500, L503.7505 ####[facility] [address] [place], [address] IG% 1.100 High 0.0-0.9 [facility] Comment on above: Result Comment: IG% - Immature Granulocytes (promyelocytes, myelocytes andmetamyelocytes) > 1% indicates that a LEFT SHIFT is Present. Performed By: #### L 100.0100, L500.2500, L503.7505 ####[facility] [address] [place], [address] Lymphocytes/100 WBC (Bld) 5.2 % Low 19-41 [facility] Comment on above: Performed By: #### L 100.0100, L500.2500, L503.7505 ####[facility] [address] [place], [address] MCH (RBC) [Entitic mass] 29.1 pg Normal 27.0-32.0 [facility] Comment on above: Performed By: #### L 100.0100, L500.2500, L503.7505 ####[facility] [address] [place], [address] MCHC (RBC) [Mass/Vol] 30.8 g/dL Low 32-36 [facility] Comment on above: Performed By: #### L 100.0100, L500.2500, L503.7505 ####[facility] [address] [place], [address] MCV (RBC) [Entitic vol] 94.4 fL Normal 81-99 [facility] Comment on above: Performed By: #### L 100.0100, L500.2500, L503.7505 ####[facility] [address] [place], [address] Monocytes/100 WBC (Bld) 5.4 % Normal 0-10 [facility] Comment on above: Performed By: #### L 100.0100, L500.2500, L503.7505 ####[facility] [address] [place], [address] Neutrophils/100 WBC (Bld) 88.0 % High 47-70 [facility] Comment on above: Performed By: #### L 100.0100, L500.2500, L503.7505 ####[facility] [address] [place], [address] Nucleated RBC (Bld) [#/Vol] 0 10*3/uL Normal 0-5 [facility] Comment on above: Performed By: #### L 100.0100, L500.2500, L503.7505 ####[facility] [address] [place], [address] Platelet mean volume (Bld) [Entitic vol] 9.7 fL Normal 6.2-12.0 [facility] Comment on above: Performed By: #### L 100.0100, L500.2500, L503.7505 ####[facility] [address] [place], [address] Platelets (Bld) [#/Vol] 267 10*3/uL Normal 150-450 [facility] Comment on above: Performed By: #### L 100.0100, L500.2500, L503.7505 ####[facility] [address] [place], [address] RBC (Bld) [#/Vol] 3.92 10*6/uL Low 4.2-5.4 [facility] Comment on above: Performed By: #### L 100.0100, L500.2500, L503.7505 ####[facility] [address] [place], [address] RDW SD 55.5 fl High 35.1-43.9 [facility] Comment on above: Performed By: #### L 100.0100, L500.2500, L503.7505 ####[facility] [address] [place], [place], [address] WBC (Bld) [#/Vol] 15.1 10*3/uL High 4.4-11.0 [facility] Comment on above: Performed By: #### L 100.0100, L500.2500, L503.7507 ####[facility] [address] [place], [address] Carbon dioxide, total [Moles /volume] in Central venous bloodOrdered By: Becca Dillard on 04-21-2025 CO2 [Moles/Vol] 41.5 mmol/L High 21.0-32.0 [facility] Chloride assayOrdered By: Sergio Dillard on 04-21-2025 Chloride [Moles/Vol] 90 mmol/L Low 98-[address] [facility] Eosinophil percentageOrdered By: Becca Dillard on 04-21-2025 Eosinophils/100 WBC (Bld) 0.1 % 0-5 [facility] Erythrocyte distribution wid th ratioOrdered By: Becca Dillard on 04-21-2025 Erythrocyte distribution width (RBC) [Ratio] 15.9 % High 11.6-14.6 [facility] Erythrocyte distribution wid th standard deviationOrdered By: Becca Dillard on 04-21-2025 Erythrocyte distribution width (RBC) [Ratio] 55.5 fl High 35.1-43.9 [facility] Glomerular filtration rate ( GFR) estimation/1.73 sq m using serum, plasma, or whole bOrdered By: Becca Dillard on 04-21-2025 GFR/1.73 sq M.predicted among non-blacks MDRD (S/P/Bld) [Vol rate/Area] 88 mL/min/{1.73_m2} >60 [facility] Comment on above: mL/min/1.73m2 CKD-EP I Creatinine Equation (2020) Hematocrit Auto (Bld) [Volum e fraction]Ordered By: Becca Dillard on 04-21-2025 Hematocrit (Bld) [Volume fraction] 37.0 % 37-47 [facility] Hemoglobin measurementOrdere d By: Becca Dillard on 04-21-2025 Hemoglobin (Bld) [Mass/Vol] 11.4 g/dL Low 12.0-15.0 [facility] Immature granulocytes/100 WB C Auto (Bld)Ordered By: Becca Dillard on 04-21-2025 Immature granulocytes/100 WBC (Bld) 1.100 % High 0.0-0.9 [facility] Comment on above: IG% - Immature Granu locytes (promyelocytes, myelocytes and metamyelocytes) > 1% indicates that a LEFT SHIFT is Present. L503.7505on 04-21-2025 Natriuretic peptide B (Bld) [Mass/Vol] 771 pg/mL Normal <=900 [facility] Comment on above: Result Comment: Hear t Failure Unlikely: < 300 pg/mLHeart Failure Likely< 50 Years: > 450 pg/mL50-75 Years: > 900 pg/mL>75 Years: > 1800 pg/mL Performed By: #### L 100.0100, L500.2500, L503.7505 ####[facility] [address] [place], [address] MCV (mean corpuscular volume ) determinationOrdered By: Becca Dillard on 04-21-2025 MCV (RBC) [Entitic vol] 94.4 fL 81-99 [facility] Mean corpuscular hemoglobin (MCH) determinationOrdered By: Becca Dillard on 04-21-2025 MCH (RBC) [Entitic mass] 29.1 pg 27.0-32.0 [facility] Mean corpuscular hemoglobin concentration (MCHC) determinationOrdered By: Becca Dillard on 04-21-2025 MCHC (RBC) [Mass/Vol] 30.8 g/dL Low 32-36 [facility] Mean platelet volume determi nationOrdered By: Becca Dillard on 04-21-2025 Platelet mean volume (Bld) [Entitic vol] 9.7 fL 6.2-12.0 [facility] Monocyte percentageOrdered B y: Becca Dillard on 04-21-2025 Monocytes/100 WBC (Bld) 5.4 % 0-10 [facility] Natriuretic peptide.B prohor inessa N-Terminal [Mass/volume] in Serum or PlasmaOrdered By: Becca Dillard on 04-21-2025 Natriuretic peptide.B prohormone N-Terminal [Mass/Vol] 771 pg/mL <900 [facility] Comment on above: Heart Failure Unlike ly: < 300 pg/mLHeart Failure Likely< 50 Years: > 450 pg/mL50-75 Years: > 900 pg/mL>75 Years: > 1800 pg/mL Neutrophil percentageOrdered By: Becca Dillard on 04-21-2025 Neutrophils/100 WBC (Bld) 88.0 % High 47-70 [facility] Nucleated red blood cell per centageOrdered By: Becca Dillard on 04-21-2025 Nucleated RBC/100 WBC (Bld) [Ratio] 0 % 0-5 [facility] Platelet countOrdered By: Sergio Dillard on 04-21-2025 Platelets (Bld) [#/Vol] 267 10*3/uL 150-450 [facility] Potassium measurement (mass/ volume)Ordered By: Becca Dillard on 04-21-2025 Potassium (Unsp spec) [Mass/Vol] 4.4 mmol/L 3.3-5.1 [facility] RBC Auto (Bld) [#/Vol]Ordere d By: Becca Dillard on 04-21-2025 RBC (Bld) [#/Vol] 3.92 10*6/uL Low 4.2-5.4 [facility] Serum creatinine measurement (mass/volume)Ordered By: Becca Dillard on 04-21-2025 Creatinine [Mass/Vol] 0.73 mg/dL 0.70-1.20 [facility] Serum glucose measurement (m ass/volume)Ordered By: Becca Dillard on 04-21-2025 Glucose [Mass/Vol] 167 mg/dL High 70-99 [facility] Serum or plasma calcium diallo urement (mass/volume)Ordered By: Becca Dillard on 04-21-2025 Calcium [Mass/Vol] 9.0 mg/dL 7.6-11.0 [facility] Serum or plasma urea nitroge n measurement (mass/volume)Ordered By: Becca Dillard on 04-21-2025 Urea nitrogen [Mass/Vol] 16 mg/dL 4-19 [facility] Sodium levelOrdered By: Faith Dillard on 04-21-2025 Sodium [Moles/Vol] 140 mmol/L 133-145 [facility] White blood cell (WBC) count Ordered By: Becca Dillard on 04-21-2025 WBC (Bld) [#/Vol] 15.1 10*3/uL High 4.4-11.0 [facility] Culture, Blood (WB)on 2024 CUB Blood cultures x2, from two different sites No growth in 5 days. Normal [facility] Comment on above: Performed By: #### M 200.1000 ####[facility] [address] [place], [place], [id number] Absolute lymphocyte countOrd ered By: Heath Silva on 04-10-2025 Lymphocytes Auto (Unsp spec) [#/Vol] 0.82 10*3/uL Low 0.83-4.51 [facility] Absolute neutrophil countOrd ered By: Heath Silva on 04-10-2025 Neutrophils (Bld) [#/Vol] 19.1 10*3/uL High 2.0-7.7 [facility] Anion gap in Serum or Plasma Ordered By: Ken Vieyra on 04-10-2025 Anion gap [Moles/Vol] 7 mmol/L 5-15 [facility] Automated lymphocyte count a s percentage of total leukocytesOrdered By: Heath Silva on 04-10-2025 Lymphocytes/100 WBC Auto (Unsp spec) 3.8 % Low 19-41 [facility] BUN/creatinine ratioOrdered By: Ken Vieyra on 04-10-2025 Urea nitrogen/Creatinine [Mass ratio] 44.3 mg/mg High 10- [facility] Basic Metabolic Profile (BMP )on 04-10-2025 BUN/CRE 44.3 RATIO High - [facility] Comment on above: Performed By: #### L 500.2500 ####[facility] [address] [place], [address] Calcium [Mass/Vol] 8.9 mg/dL Normal 7.6-11.0 [facility] Comment on above: Performed By: #### L 500.2500 ####[facility] [address] [place], [address] Chloride [Moles/Vol] 89 mmol/L Low 98-[address] [facility] Comment on above: Performed By: #### L 500.2500 ####[facility] [address] [place], [address] CO2 [Moles/Vol] 40.6 mmol/L High 21.0-32.0 [facility] Comment on above: Performed By: #### L 500.2500 ####[facility] [address] [place], [address] Creatinine [Mass/Vol] 0.79 mg/dL Normal 0.70-1.20 [facility] Comment on above: Performed By: #### L 500.2500 ####[facility] [address] [place], [address] ECRCL 76.43 ml/min Normal 50-250 [facility] Comment on above: Performed By: #### L 500.2500 ####[facility] [address] [place], [address] GAP 7 Normal 5-15 [facility] Comment on above: Performed By: #### L 500.2500 ####[facility] [address] [place], [address] GFR/1.73 sq M.predicted among non-blacks MDRD (S/P/Bld) [Vol rate/Area] 80 mL/min/{1.73_m2} Normal >60 [facility] Comment on above: Result Comment: mL/m in/1.73m2 CKD-EPI Creatinine Equation (2020) Performed By: #### L 500.2500 ####[facility] [address] [place], [address] Glucose [Mass/Vol] 107 mg/dL High 70-99 [facility] Comment on above: Performed By: #### L 500.2500 ####[facility] [address] [place], [address] Potassium [Moles/Vol] 4.0 mmol/L Normal 3.3-5.1 [facility] Comment on above: Performed By: #### L 500.2500 ####[facility] [address] [place], [address] Sodium [Moles/Vol] 136 mmol/L Normal 133-145 [facility] Comment on above: Performed By: #### L 500.2500 ####[facility] [address] [place], [address] Urea nitrogen [Mass/Vol] 35 mg/dL High 4-19 [facility] Comment on above: Performed By: #### L 500.2500 ####[facility] [address] [place], [address] Basophil percentageOrdered B y: Heath Silva on 04-10-2025 Basophils/100 WBC (Bld) 0.1 % 0-1 [facility] Bedside Glucoseon 04-10-2025 FINGERSTICK GLU 200 mg/dL High 74-106 [facility] Comment on above: Result Comment: MAURI GEMENT OF PATIENT CARE PER NURSING PROTOCOL Performed By: #### L 501.080 ####[facility] [address] [place], [address] FINGERSTICK GLU 109 mg/dL High 74-106 [facility] Comment on above: Result Comment: MAURI GEMENT OF PATIENT CARE PER NURSING PROTOCOL Performed By: #### L 501.080 ####[facility] [address] [place], [address] CBC W/Diff, Automatedon - Absolute Lymph 0.82 X10 3/uL Low 0.83-4.51 [facility] Comment on above: Performed By: #### L 100.0100 ####[facility] [address] [place], [address] Absolute Neut 19.1 X10 3/uL High 2.0-7.7 [facility] Comment on above: Performed By: #### L 100.0100 ####[facility] [address] [place], [address] Basophils/100 WBC (Bld) 0.1 % Normal 0-1 [facility] Comment on above: Performed By: #### L 100.0100 ####[facility] [address] [place], [address] Eosinophils/100 WBC (Bld) 0.0 % Normal 0-5 [facility] Comment on above: Performed By: #### L 100.0100 ####[facility] [address] [place], [address] Erythrocyte distribution width (RBC) [Ratio] 15.7 % High 11.6-14.6 [facility] Comment on above: Performed By: #### L 100.0100 ####[facility] [address] [place], [address] Hematocrit (Bld) [Volume fraction] 36.9 % Low 37-47 [facility] Comment on above: Performed By: #### L 100.0100 ####[facility] [address] [place], [address] Hemoglobin (Bld) [Mass/Vol] 11.6 g/dL Low 12.0-15.0 [facility] Comment on above: Performed By: #### L 100.0100 ####[facility] [address] [place], [address] IG% 0.700 Normal 0.0-0.9 [facility] Comment on above: Result Comment: IG% - Immature Granulocytes (promyelocytes, myelocytes andmetamyelocytes) > 1% indicates that a LEFT SHIFT is Present. Performed By: #### L 100.0100 ####[facility] [address] [place], [address] Lymphocytes/100 WBC (Bld) 3.8 % Low 19-41 [facility] Comment on above: Performed By: #### L 100.0100 ####[facility] [address] [place], [address] MCH (RBC) [Entitic mass] 28.3 pg Normal 27.0-32.0 [facility] Comment on above: Performed By: #### L 100.0100 ####[facility] [address] [place], [address] MCHC (RBC) [Mass/Vol] 31.4 g/dL Low 32-36 [facility] Comment on above: Performed By: #### L 100.0100 ####[facility] [address] [place], [address] MCV (RBC) [Entitic vol] 90.0 fL Normal 81-99 [facility] Comment on above: Performed By: #### L 100.0100 ####[facility] [address] [place], [address] Monocytes/100 WBC (Bld) 6.1 % Normal 0-10 [facility] Comment on above: Performed By: #### L 100.0100 ####[facility] [address] [place], [address] Neutrophils/100 WBC (Bld) 89.3 % High 47-70 [facility] Comment on above: Performed By: #### L 100.0100 ####[facility] [address] [place], [address] Nucleated RBC (Bld) [#/Vol] 0 10*3/uL Normal 0-5 [facility] Comment on above: Performed By: #### L 100.0100 ####[facility] [address] [place], [address] Platelet mean volume (Bld) [Entitic vol] 10.5 fL Normal 6.2-12.0 [facility] Comment on above: Performed By: #### L 100.0100 ####[facility] [address] [place], [address] Platelets (Bld) [#/Vol] 270 10*3/uL Normal 150-450 [facility] Comment on above: Performed By: #### L 100.0100 ####[facility] [address] [place], [address] RBC (Bld) [#/Vol] 4.10 10*6/uL Low 4.2-5.4 [facility] Comment on above: Performed By: #### L 100.0100 ####[facility] [address] [place], [address] RDW SD 51.3 fl High 35.1-43.9 [facility] Comment on above: Performed By: #### L 100.0100 ####[facility] [address] [place], [address] WBC (Bld) [#/Vol] 21.4 10*3/uL High 4.4-11.0 [facility] Comment on above: Performed By: #### L 100.0100 ####[facility] [address] [place], [address] Carbon dioxide, total [Moles /volume] in Central venous bloodOrdered By: Ken Vieyra on 04-10-2025 CO2 [Moles/Vol] 40.6 mmol/L High 21.0-32.0 [facility] Chloride assayOrdered By: Bel Vieyra on 04-10-2025 Chloride [Moles/Vol] 89 mmol/L Low 98-[address] [facility] Discharge Instructionon 03-26 Discharge Instruction Normal [facility] Eosinophil percentageOrdered By: Heath Silva on 04-10-2025 Eosinophils/100 WBC (Bld) 0.0 % 0-5 [facility] Erythrocyte distribution wid th ratioOrdered By: Heath Silva on 04-10-2025 Erythrocyte distribution width (RBC) [Ratio] 15.7 % High 11.6-14.6 [facility] Erythrocyte distribution wid th standard deviationOrdered By: Heath Silva on 04-10-2025 Erythrocyte distribution width (RBC) [Ratio] 51.3 fl High 35.1-43.9 [facility] Glomerular filtration rate ( GFR) estimation/1.73 sq m using serum, plasma, or whole bOrdered By: Ken Vieyra on 04-10-2025 GFR/1.73 sq M.predicted among non-blacks MDRD (S/P/Bld) [Vol rate/Area] 80 mL/min/{1.73_m2} >60 [facility] Comment on above: mL/min/1.73m2 CKD-EP I Creatinine Equation (2020) [facility] deOrdered By: Geoff Galvan on 04-10-2025 Glucose [Mass/Vol] 200 mg/dL High 74-106 [facility] Comment on above: MANAGEMENT OF PATIEN T CARE PER NURSING PROTOCOL Hematocrit Auto (Bld) [Volum e fraction]Ordered By: Heath Silva on 04-10-2025 Hematocrit (Bld) [Volume fraction] 36.9 % Low 37-47 [facility] Hemoglobin measurementOrdere d By: Heath Silva on 04-10-2025 Hemoglobin (Bld) [Mass/Vol] 11.6 g/dL Low 12.0-15.0 [facility] Immature granulocytes/100 WB C Auto (Bld)Ordered By: Heath Silva on 04-10-2025 Immature granulocytes/100 WBC (Bld) 0.700 % 0.0-0.9 [facility] Comment on above: IG% - Immature Granu locytes (promyelocytes, myelocytes and metamyelocytes) > 1% indicates that a LEFT SHIFT is Present. MCV (mean corpuscular volume ) determinationOrdered By: Heath Silva on 04-10-2025 MCV (RBC) [Entitic vol] 90.0 fL 81-99 [facility] Mean corpuscular hemoglobin (MCH) determinationOrdered By: Heath Silva on 04-10-2025 MCH (RBC) [Entitic mass] 28.3 pg 27.0-32.0 [facility] Mean corpuscular hemoglobin concentration (MCHC) determinationOrdered By: Heath Silva on 04-10-2025 MCHC (RBC) [Mass/Vol] 31.4 g/dL Low 32-36 [facility] Mean platelet volume determi nationOrdered By: Heath Silva on 04-10-2025 Platelet mean volume (Bld) [Entitic vol] 10.5 fL 6.2-12.0 [facility] Monocyte percentageOrdered B y: Heath Silva on 04-10-2025 Monocytes/100 WBC (Bld) 6.1 % 0-10 [facility] Neutrophil percentageOrdered By: Heath Silva on 04-10-2025 Neutrophils/100 WBC (Bld) 89.3 % High 47-70 [facility] Nucleated red blood cell per centageOrdered By: Heath Silva on 04-10-2025 Nucleated RBC/100 WBC (Bld) [Ratio] 0 % 0-5 [facility] Platelet countOrdered By: Sky Silva on 04-10-2025 Platelets (Bld) [#/Vol] 270 10*3/uL 150-450 [facility] Potassium measurement (mass/ volume)Ordered By: Ken Vieyra on 04-10-2025 Potassium (Unsp spec) [Mass/Vol] 4.0 mmol/L 3.3-5.1 [facility] RBC Auto (Bld) [#/Vol]Ordere d By: Heath Silva on 04-10-2025 RBC (Bld) [#/Vol] 4.10 10*6/uL Low 4.2-5.4 [facility] Serum creatinine measurement (mass/volume)Ordered By: Ken Vieyra on 04-10-2025 Creatinine [Mass/Vol] 0.79 mg/dL 0.70-1.20 [facility] Serum glucose measurement (m ass/volume)Ordered By: Ken Vieyra on 04-10-2025 Glucose [Mass/Vol] 107 mg/dL High 70-99 [facility] Serum or plasma calcium diallo urement (mass/volume)Ordered By: Ken Vieyra on 04-10-2025 Calcium [Mass/Vol] 8.9 mg/dL 7.6-11.0 [facility] Serum or plasma urea nitroge n measurement (mass/volume)Ordered By: Ken Vieyra on 04-10-2025 Urea nitrogen [Mass/Vol] 35 mg/dL High 4-19 [facility] Sodium levelOrdered By: Anton Vieyra on 04-10-2025 Sodium [Moles/Vol] 136 mmol/L 133-145 [facility] White blood cell (WBC) count Ordered By: Heath Silva on 04-10-2025 WBC (Bld) [#/Vol] 21.4 10*3/uL High 4.4-11.0 [facility] Basic Metabolic Profile (BMP )on 04-09-2025 BUN/CRE 46.9 RATIO High 10-20 [facility] Comment on above: Performed By: #### L 500.2500 ####[facility] [address] [place], [address] Calcium [Mass/Vol] 9.1 mg/dL Normal 7.6-11.0 [facility] Comment on above: Performed By: #### L 500.2500 ####[facility] [address] [place], [address] Chloride [Moles/Vol] 91 mmol/L Low 98-[address] [facility] Comment on above: Performed By: #### L 500.2500 ####[facility] [address] [place], [address] CO2 [Moles/Vol] 40.6 mmol/L High 21.0-32.0 [facility] Comment on above: Performed By: #### L 500.2500 ####[facility] [address] [place], [address] Creatinine [Mass/Vol] 0.67 mg/dL Low 0.70-1.20 [facility] Comment on above: Performed By: #### L 500.2500 ####[facility] [address] [place], [address] ECRCL 76.39 ml/min Normal 50-250 [facility] Comment on above: Performed By: #### L 500.2500 ####[facility] [address] [place], [address] GAP 7 Normal 5-15 [facility] Comment on above: Performed By: #### L 500.2500 ####[facility] [address] [place], [address] GFR/1.73 sq M.predicted among non-blacks MDRD (S/P/Bld) [Vol rate/Area] 93 mL/min/{1.73_m2} Normal >60 [facility] Comment on above: Result Comment: mL/m in/1.73m2 CKD-EPI Creatinine Equation (2020) Performed By: #### L 500.2500 ####[facility] [address] [place], [address] Glucose [Mass/Vol] 134 mg/dL High 70-99 [facility] Comment on above: Performed By: #### L 500.2500 ####[facility] [address] [place], [address] Potassium [Moles/Vol] 4.0 mmol/L Normal 3.3-5.1 [facility] Comment on above: Performed By: #### L 500.2500 ####[facility] [address] [place], [address] Sodium [Moles/Vol] 139 mmol/L Normal 133-145 [facility] Comment on above: Performed By: #### L 500.2500 ####[facility] [address] [place], [address] Urea nitrogen [Mass/Vol] 32 mg/dL High 4-19 [facility] Comment on above: Performed By: #### L 500.2500 ####[facility] [address] [place], [address] Bedside Glucoseon 04-09-2025 FINGERSTICK GLU 242 mg/dL High 74-106 [facility] Comment on above: Result Comment: MAURI GEMENT OF PATIENT CARE PER NURSING PROTOCOL Performed By: #### L 501.080 ####[facility] [address] [place], [address] FINGERSTICK GLU 91 mg/dL Normal 74-106 [facility] Comment on above: Result Comment: MAURI GEMENT OF PATIENT CARE PER NURSING PROTOCOL Performed By: #### L 501.080 ####[facility] [address] [place], [address] FINGERSTICK GLU 277 mg/dL High 74-106 [facility] Comment on above: Result Comment: MAURI GEMENT OF PATIENT CARE PER NURSING PROTOCOL Performed By: #### L 501.080 ####[facility] [address] [place], [address] FINGERSTICK GLU 157 mg/dL High 74-106 [facility] Comment on above: Result Comment: MAURI GEMENT OF PATIENT CARE PER NURSING PROTOCOL Performed By: #### L 501.080 ####[facility] [address] [place], [address] FINGERSTICK GLU 239 mg/dL High 74-106 [facility] Comment on above: Result Comment: MAURI GEMENT OF PATIENT CARE PER NURSING PROTOCOL Performed By: #### L 501.080 ####[facility] [address] [place], [address] CBC W/Diff, Automatedon 05- Absolute Lymph 0.37 X10 3/uL Low 0.83-4.51 [facility] Comment on above: Performed By: #### L 100.0100 ####[facility] [address] [place], [address] Absolute Neut 19.4 X10 3/uL High 2.0-7.7 [facility] Comment on above: Performed By: #### L 100.0100 ####[facility] [address] [place], [address] Basophils/100 WBC (Bld) 0.1 % Normal 0-1 [facility] Comment on above: Performed By: #### L 100.0100 ####[facility] [address] [place], [address] Eosinophils/100 WBC (Bld) 0.0 % Normal 0-5 [facility] Comment on above: Performed By: #### L 100.0100 ####[facility] [address] [place], [address] Erythrocyte distribution width (RBC) [Ratio] 15.9 % High 11.6-14.6 [facility] Comment on above: Performed By: #### L 100.0100 ####[facility] [address] [place], [address] Hematocrit (Bld) [Volume fraction] 39.9 % Normal 37-47 [facility] Comment on above: Performed By: #### L 100.0100 ####[facility] [address] [place], [address] Hemoglobin (Bld) [Mass/Vol] 12.5 g/dL Normal 12.0-15.0 [facility] Comment on above: Performed By: #### L 100.0100 ####[facility] [address] [place], [address] IG% 0.700 Normal 0.0-0.9 [facility] Comment on above: Result Comment: IG% - Immature Granulocytes (promyelocytes, myelocytes andmetamyelocytes) > 1% indicates that a LEFT SHIFT is Present. Performed By: #### L 100.0100 ####[facility] [address] [place], [address] Lymphocytes/100 WBC (Bld) 1.8 % Low 19-41 [facility] Comment on above: Performed By: #### L 100.0100 ####[facility] [address] [place], [address] MCH (RBC) [Entitic mass] 28.8 pg Normal 27.0-32.0 [facility] Comment on above: Performed By: #### L 100.0100 ####[facility] [address] [place], [address] MCHC (RBC) [Mass/Vol] 31.3 g/dL Low 32-36 [facility] Comment on above: Performed By: #### L 100.0100 ####[facility] [address] [place], [address] MCV (RBC) [Entitic vol] 91.9 fL Normal 81-99 [facility] Comment on above: Performed By: #### L 100.0100 ####[facility] [address] [place], [address] Monocytes/100 WBC (Bld) 3.3 % Normal 0-10 [facility] Comment on above: Performed By: #### L 100.0100 ####[facility] [address] [place], [address] Neutrophils/100 WBC (Bld) 94.1 % High 47-70 [facility] Comment on above: Performed By: #### L 100.0100 ####[facility] [address] [place], [address] Nucleated RBC (Bld) [#/Vol] 0 10*3/uL Normal 0-5 [facility] Comment on above: Performed By: #### L 100.0100 ####[facility] [address] [place], [address] Platelet mean volume (Bld) [Entitic vol] 10.0 fL Normal 6.2-12.0 [facility] Comment on above: Performed By: #### L 100.0100 ####[facility] [address] [place], [address] Platelets (Bld) [#/Vol] 259 10*3/uL Normal 150-450 [facility] Comment on above: Performed By: #### L 100.0100 ####[facility] [address] [place], [address] RBC (Bld) [#/Vol] 4.34 10*6/uL Normal 4.2-5.4 [facility] Comment on above: Performed By: #### L 100.0100 ####[facility] [address] [place], [address] RDW SD 52.8 fl High 35.1-43.9 [facility] Comment on above: Performed By: #### L 100.0100 ####[facility] [address] [place], [address] WBC (Bld) [#/Vol] 20.6 10*3/uL High 4.4-11.0 [facility] Comment on above: Performed By: #### L 100.0100 ####[facility] [address] [place], [address] Anion gap in Serum or Plasma Ordered By: Ken Vieyra on 04-08-2025 Anion gap [Moles/Vol] 9 mmol/L - [facility] BUN/creatinine ratioOrdered By: Ken Vieyra on 04-08-2025 Urea nitrogen/Creatinine [Mass ratio] 40.4 mg/mg High - [facility] Basic Metabolic Profile (BMP )on 04-08-2025 BUN/CRE 40.4 RATIO High - [facility] Comment on above: Performed By: #### L 500.2500 ####[facility] [address] [place], [address] Calcium [Mass/Vol] 8.9 mg/dL Normal 7.6-11.0 [facility] Comment on above: Performed By: #### L 500.2500 ####[facility] [address] [place], [address] Chloride [Moles/Vol] 87 mmol/L Low 98-[address] [facility] Comment on above: Performed By: #### L 500.2500 ####[facility] [address] [place], [address] CO2 [Moles/Vol] 43.6 mmol/L High 21.0-32.0 [facility] Comment on above: Performed By: #### L 500.2500 ####[facility] [address] [place], [address] Creatinine [Mass/Vol] 0.82 mg/dL Normal 0.70-1.20 [facility] Comment on above: Performed By: #### L 500.2500 ####[facility] [address] [place], [address] ECRCL 74.56 ml/min Normal 50-250 [facility] Comment on above: Performed By: #### L 500.2500 ####[facility] [address] [place], [address] GAP 9 Normal 5-15 [facility] Comment on above: Performed By: #### L 500.2500 ####[facility] [address] [place], [address] GFR/1.73 sq M.predicted among non-blacks MDRD (S/P/Bld) [Vol rate/Area] 77 mL/min/{1.73_m2} Normal >60 [facility] Comment on above: Result Comment: mL/m in/1.73m2 CKD-EPI Creatinine Equation (2020) Performed By: #### L 500.2500 ####[facility] [facility] [address] [place], [address] Glucose [Mass/Vol] 149 mg/dL High 70-99 [facility] Comment on above: Performed By: #### L 500.2500 ####[facility] [address] [place], [address] Potassium [Moles/Vol] 2.8 mmol/L Low 3.3-5.1 [facility] Comment on above: Performed By: #### L 500.2500 ####[facility] [address] [place], [address] Sodium [Moles/Vol] 139 mmol/L Normal 133-145 [facility] Comment on above: Performed By: #### L 500.2500 ####[facility] [address] [place], [address] Urea nitrogen [Mass/Vol] 33 mg/dL High 4-19 [facility] Comment on above: Performed By: #### L 500.2500 ####[facility] [address] [place], [address] Bedside Glucoseon 04-08-2025 FINGERSTICK GLU 81 mg/dL Normal 74-106 [facility] Comment on above: Result Comment: MAURI GEMENT OF PATIENT CARE PER NURSING PROTOCOL Performed By: #### L 501.080 ####[facility] [address] [place], [address] FINGERSTICK GLU 175 mg/dL High 74-106 [facility] Comment on above: Result Comment: MAURI GEMENT OF PATIENT CARE PER NURSING PROTOCOL Performed By: #### L 501.080 ####[facility] [address] [place], [address] FINGERSTICK GLU 289 mg/dL High 74-106 [facility] Comment on above: Result Comment: MAURI GEMENT OF PATIENT CARE PER NURSING PROTOCOL Performed By: #### L 501.080 ####[facility] [address] [place], [address] Blood Gases by CPSon 025 Results To de joel Normal [facility] Comment on above: Performed By: #### L 9000.0800 ####[facility] [address] [place], [address] Carbon dioxide, total [Moles /volume] in Central venous bloodOrdered By: Ken Vieyra on 04-08-2025 CO2 [Moles/Vol] 43.6 mmol/L High 21.0-32.0 [facility] Chloride assayOrdered By: Bel Vieyra on 04-08-2025 Chloride [Moles/Vol] 87 mmol/L Low 98-[address] [facility] Glomerular filtration rate ( GFR) estimation/1.73 sq m using serum, plasma, or whole bOrdered By: Ken Vieyra on 04-08-2025 GFR/1.73 sq M.predicted among non-blacks MDRD (S/P/Bld) [Vol rate/Area] 77 mL/min/{1.73_m2} >60 [facility] Comment on above: mL/min/1.73m2 CKD-EP I Creatinine Equation (2020) [facility] deOrdered By: Ken Vieyra on 04-08-2025 Glucose [Mass/Vol] 289 mg/dL High 74-106 [facility] Comment on above: MANAGEMENT OF PATIEN T CARE PER NURSING PROTOCOL Magnesiumon 04-08-2025 Magnesium [Mass/Vol] 2.5 mg/dL High 1.5-2.[address] [facility] Comment on above: Performed By: #### L 501.2300, L501.5200 ####[facility] [address] [place], [address] Magnesium measurement (mass/ volume)Ordered By: Ken Vieyra on 04-08-2025 Magnesium (Unsp spec) [Mass/Vol] 2.5 mg/dL High 1.5-2.2 [facility] Phosphoruson 04-08-2025 Phosphate [Mass/Vol] 4.4 mg/dL Normal 2.7-4.[address] [facility] Comment on above: Performed By: #### L 501.2300, L501.5200 ####[facility] [address] [place], [address] Potassium measurement (mass/ volume)Ordered By: Ken Vieyra on 04-08-2025 Potassium (Unsp spec) [Mass/Vol] 2.8 mmol/L Low 3.3-5.1 [facility] Serum creatinine measurement (mass/volume)Ordered By: Ken Vieyra on 04-08-2025 Creatinine [Mass/Vol] 0.82 mg/dL 0.70-1.20 [facility] Serum glucose measurement (m ass/volume)Ordered By: Ken Vieyra on 04-08-2025 Glucose [Mass/Vol] 149 mg/dL High 70-99 [facility] Serum or plasma calcium diallo urement (mass/volume)Ordered By: Ken Vieyra on 04-08-2025 Calcium [Mass/Vol] 8.9 mg/dL 7.6-11.0 [facility] Serum or plasma urea nitroge n measurement (mass/volume)Ordered By: Ken Vieyra on 04-08-2025 Urea nitrogen [Mass/Vol] 33 mg/dL High 4-19 [facility] Sodium levelOrdered By: Anton Vieyra on 04-08-2025 Sodium [Moles/Vol] 139 mmol/L 133-145 [facility] Absolute lymphocyte countOrd ered By: Ken Vieyra on 04-07-2025 Lymphocytes Auto (Unsp spec) [#/Vol] 0.46 10*3/uL Low 0.83-4.51 [facility] Absolute neutrophil countOrd ered By: Ken Vieyra on 04-07-2025 Neutrophils (Bld) [#/Vol] 30.0 10*3/uL High 2.0-7.7 [facility] Automated lymphocyte count a s percentage of total leukocytesOrdered By: Ken Vieyra on 04-07-2025 Lymphocytes/100 WBC Auto (Unsp spec) 1.4 % Low 19-41 [facility] Basic Metabolic Profile (BMP )on 04-07-2025 BUN/CRE 31.1 RATIO High 10-20 [facility] Comment on above: Performed By: #### L 500.2500, L100.0100 ####[facility] [address] [place], [address] Calcium [Mass/Vol] 9.4 mg/dL Normal 7.6-11.0 [facility] Comment on above: Performed By: #### L 500.2500, L100.0100 ####[facility] [address] [place], [address] Chloride [Moles/Vol] 88 mmol/L Low 98-[address] [facility] Comment on above: Performed By: #### L 500.2500, L100.0100 ####[facility] [address] [place], [address] CO2 [Moles/Vol] 41.0 mmol/L High 21.0-32.0 [facility] Comment on above: Performed By: #### L 500.2500, L100.0100 ####[facility] [address] [place], [address] Creatinine [Mass/Vol] 1.07 mg/dL Normal 0.70-1.20 [facility] Comment on above: Performed By: #### L 500.2500, L100.0100 ####[facility] [address] [place], [address] ECRCL 57.45 ml/min Normal 50-250 [facility] Comment on above: Performed By: #### L 500.2500, L100.0100 ####[facility] [address] [place], [address] GAP 12 Normal 5-15 [facility] Comment on above: Performed By: #### L 500.2500, L100.0100 ####[facility] [address] [place], [address] GFR/1.73 sq M.predicted among non-blacks MDRD (S/P/Bld) [Vol rate/Area] 56 mL/min/{1.73_m2} Low >60 [facility] Comment on above: Result Comment: mL/m in/1.73m2 CKD-EPI Creatinine Equation (2020) Performed By: #### L 500.2500, L100.0100 ####[facility] [address] [place], [address] Glucose [Mass/Vol] 187 mg/dL High 70-99 [facility] Comment on above: Performed By: #### L 500.2500, L100.0100 ####[facility] [address] [place], [address] Potassium [Moles/Vol] 3.5 mmol/L Normal 3.3-5.1 [facility] Comment on above: Performed By: #### L 500.2500, L100.0100 ####[facility] [address] [place], [address] Sodium [Moles/Vol] 141 mmol/L Normal 133-145 [facility] Comment on above: Performed By: #### L 500.2500, L100.0100 ####[facility] [address] [place], [address] Urea nitrogen [Mass/Vol] 33 mg/dL High 4-19 [facility] Comment on above: Performed By: #### L 500.2500, L100.0100 ####[facility] [address] [place], [address] Basophil percentageOrdered B y: Ken Vieyra on 04-07-2025 Basophils/100 WBC (Bld) 0.2 % 0-1 [facility] Bedside Glucoseon 04-07-2025 FINGERSTICK GLU 239 mg/dL High 74-106 [facility] Comment on above: Result Comment: MAURI IVORY OF PATIENT CARE PER NURSING PROTOCOL Performed By: #### L 501.080 ####[facility] [address] [place], [address] FINGERSTICK GLU 128 mg/dL High 74-106 [facility] Comment on above: Result Comment: MAURI GEMENT OF PATIENT CARE PER NURSING PROTOCOL Performed By: #### L 501.080 ####[facility] [address] [place], [address] FINGERSTICK GLU 161 mg/dL High 74-106 [facility] Comment on above: Result Comment: MAURI GEMENT OF PATIENT CARE PER NURSING PROTOCOL Performed By: #### L 501.080 ####[facility] [address] [place], [address] FINGERSTICK GLU 160 mg/dL High -106 [facility] Comment on above: Result Comment: MAURI GEMENT OF PATIENT CARE PER NURSING PROTOCOL Performed By: #### L 501.080 ####[facility] [address] [place], [address] FINGERSTICK GLU 155 mg/dL High [facility]106 [facility] Comment on above: Result Comment: MAURI GEMENT OF PATIENT CARE PER NURSING PROTOCOL Performed By: #### L 501.080 ####[facility] [address] [place], [address] CBC W/Diff, Automatedon 05 PLT EST A Normal ADEQ [facility] Comment on above: Order Comment: CRITI ELISHA VALUE CALLED TO AZRA MONAHAN04/07/25 1607 Dhara Sumanth.RESULTS READ BACK BY SAME. Performed By: #### L 500.2500, L100.0100 ####[facility] [address] [place], [address] Eosinophil percentageOrdered By: Ken Vieyra on 04-07-2025 Eosinophils/100 WBC (Bld) 0.0 % 0-5 [facility] Erythrocyte distribution wid th ratioOrdered By: Ken Vieyra on 04-07-2025 Erythrocyte distribution width (RBC) [Ratio] 15.8 % High 11.6-14.6 [facility] Erythrocyte distribution wid th standard deviationOrdered By: Ken Vieyra on 04-07-2025 Erythrocyte distribution width (RBC) [Ratio] 51.9 fl High 35.1-43.9 [facility] Hematocrit Auto (Bld) [Volum e fraction]Ordered By: Ken Vieyra on 04-07-2025 Hematocrit (Bld) [Volume fraction] 38.9 % 37-47 [facility] Hemoglobin A1con 04-07-2025 HbA1c (Bld) [Mass fraction] 6.3 % High <=5.6 [facility] Comment on above: Result Comment: Norm al < 5.7 % Prediabetic 5.7 - 6.4 % Diabetic >or= 6.5 % Please note range changes. Performed By: #### L 501.9985 ####[facility] [address] [place], [place], [address] Hemoglobin A1c percentageOrd ered By: Ken Vieyra on 04-07-2025 HbA1c (Bld) [Mass fraction] 6.3 % High <5.7 [facility] Comment on above: Normal < 5.7 % Predi abetic 5.7 - 6.4 % Diabetic >or= 6.5 % Please note range changes. Hemoglobin measurementOrdere d By: Ken Vieyra on 04-07-2025 Hemoglobin (Bld) [Mass/Vol] 12.4 g/dL 12.0-15.0 [facility] Immature granulocytes/100 WB C Auto (Bld)Ordered By: Ken Vieyra on 04-07-2025 Immature granulocytes/100 WBC (Bld) 1.000 % High 0.0-0.9 [facility] Comment on above: IG% - Immature Granu locytes (promyelocytes, myelocytes and metamyelocytes) > 1% indicates that a LEFT SHIFT is Present. MCV (mean corpuscular volume ) determinationOrdered By: Ken Vieyra on 04-07-2025 MCV (RBC) [Entitic vol] 91.3 fL 81-99 [facility] Mean corpuscular hemoglobin (MCH) determinationOrdered By: Ken Vieyra on 04-07-2025 MCH (RBC) [Entitic mass] 29.1 pg 27.0-32.0 [facility] Mean corpuscular hemoglobin concentration (MCHC) determinationOrdered By: Ken Vieyra on 04-07-2025 MCHC (RBC) [Mass/Vol] 31.9 g/dL Low 32-36 [facility] Comment on above: Delta: 30.2 on 04/06 Mean platelet volume determi nationOrdered By: Ken Vieyra on 04-07-2025 Platelet mean volume (Bld) [Entitic vol] 10.0 fL 6.2-12.0 [facility] Monocyte percentageOrdered B y: Ken Vieyra on 04-07-2025 Monocytes/100 WBC (Bld) 3.3 % 0-10 [facility] Neutrophil percentageOrdered By: Ken Vieyra on 04-07-2025 Neutrophils/100 WBC (Bld) 94.1 % High 47-70 [facility] Nucleated red blood cell per centageOrdered By: Ken Vieyra on 04-07-2025 Nucleated RBC/100 WBC (Bld) [Ratio] 0 % 0-5 [facility] Phosphoruson 04-07-2025 Phosphate [Mass/Vol] 3.3 mg/dL Normal 2.7-4.[address] [facility] Comment on above: Performed By: #### L 501.2300 ####[facility] [address] [place], [address] Platelet countOrdered By: Bel Vieyra on 04-07-2025 Platelets (Bld) [#/Vol] 365 10*3/uL 150-450 [facility] Platelet estimateOrdered By: Ken Vieyra on 04-07-2025 Platelets LM Ql (Bld) A ADEQ [facility] RBC Auto (Bld) [#/Vol]Ordere d By: Ken Vieyra on 04-07-2025 RBC (Bld) [#/Vol] 4.26 10*6/uL 4.2-5.4 [facility] White blood cell (WBC) count Ordered By: Ken Vieyra on 04-07-2025 WBC (Bld) [#/Vol] 31.9 10*3/uL High 4.4-11.0 [facility] Assessment of wrist artery p atency prior to arterial punctureOrdered By: Orlando Maldonado on 04-06-2025 Arterial patency Wrist artery --pre arterial puncture Positive [facility] Bedside Glucoseon 04-06-2025 FINGERSTICK GLU 175 mg/dL High 74-106 [facility] Comment on above: Result Comment: MAURI GEMENT OF PATIENT CARE PER NURSING PROTOCOL Performed By: #### L 501.080 ####[facility] [address] [place], [address] FINGERSTICK GLU 173 mg/dL High 74-106 [facility] Comment on above: Result Comment: MAURI GEMENT OF PATIENT CARE PER NURSING PROTOCOL Performed By: #### L 501.080 ####[facility] [address] [place], [address] Bilirubin, totalOrdered By: Orlando Maldonado on 04-06-2025 Bilirubin [Mass/Vol] 0.23 mg/dL 0.00-1.[address] [facility] Blood Gases by CPSon 025 ZECHARIAH TEST Positive Normal [facility] Comment on above: Performed By: #### L 9000.0800 ####[facility] [address] [place], [address] Base excess Calc (Bld) [Moles/Vol] 23 mmol/L High -2 to +2 [facility] Comment on above: Performed By: #### L 9000.0800 ####[facility] [address] [place], [address] Blood Gas Type ART Normal [facility] Comment on above: Performed By: #### L 9000.0800 ####[facility] [address] [place], [address] FI02 35.0 Normal [facility] Comment on above: Performed By: #### L 9000.0800 ####[facility] [address] [place], [address] HCO3 (Bld) [Moles/Vol] 47.7 mmol/L High 22-26 [facility] Comment on above: Performed By: #### L 0.08 ####[facility] [address] [place], [address] Mode Not entered Normal [facility] Comment on above: Performed By: #### L 0.08 ####[facility] [address] [place], [address] O2 Delivery Dev BiPAP Normal [facility] Comment on above: Performed By: #### L 0.0800 ####[facility] [address] [place], [address] pCO2 75.5 mmHg Invalid Interpretation Code 35-45 [facility] Comment on above: Performed By: #### L 0.08 ####[facility] [address] [place], [address] pH (Bld) 7.41 [pH] Normal 7.35-7.45 [facility] Comment on above: Performed By: #### L 8999.08 ####[facility] [address] [place], [address] PO2 54 mmHG Low 75-100 [facility] Comment on above: Performed By: #### L 0.08 ####[facility] [address] [place], [address] Read Back By Yes Normal [facility] Comment on above: Performed By: #### L 8999.08 ####[facility] [address] [place], [address] SITE L Radial Normal [facility] Comment on above: Performed By: #### L 0.0800 ####[facility] [address] [place], [address] SO2 85 Low 95-99 [facility] Comment on above: Performed By: #### L 9000.0800 ####[facility] [address] [place], [address] TOTAL CO2 > 50 Normal [facility] Comment on above: Performed By: #### L 9000.0800 ####[facility] [address] [place], [address] Blood base excess determinat ionOrdered By: Orlando Maldonado on 04-06-2025 Base excess Calc (BldV) [Moles/Vol] 23 mmol/L High -2-2 [facility] Blood bicarbonate measuremen tOrdered By: Orlando Maldonado on 04-06-2025 HCO3 (Bld) [Moles/Vol] 47.7 mmol/L High 22-26 [facility] Blood manual differential co mment interpretation (narrative result)Ordered By: Orlando Maldonado on 04-06-2025 Manual differential comment Eugene (Bld) [Interp] SCANNED [facility] CBC W/Diff, Automatedon 03-26 PLT EST ADEQUATE Normal ADEQ [facility] Comment on above: Performed By: #### L 100.0100, L500.4050, L503.7505, L501.2300 ####[facility] [address] [place], [address] RED CELL MORPH NORM C+C Normal NORM C C [facility] Comment on above: Performed By: #### L 100.0100, L500.4050, L503.7505, L501.2300 ####[facility] [address] [place], [address] SMEAR COMMENT SCANNED Normal [facility] Comment on above: Performed By: #### L 100.0100, L500.4050, L503.7505, L501.2300 ####[facility] [address] [place], [address] CRPon 04-06-2025 C-REACTIVE PROT 18.90 mg/L High 0.0-3.0 [facility] Comment on above: Performed By: #### L 501.6710, L101.9900 ####[facility] [address] [place], [address] Calculated very low density lipoprotein (VLDL) cholesterol measurementOrdered By: Ken Vieyra on 04-06-2025 Calculated very low density lipoprotein (VLDL) cholesterol measurement 14 mg/dL 5-40 [facility] Comprehensive Metabolic Prof ilon 04-06-2025 Albumin [Mass/Vol] 3.4 g/dL Normal 3.4-4.8 [facility] Comment on above: Performed By: #### L 100.0100, L500.4050, L503.7505, L501.2300 ####[facility] [address] [place], [address] Albumin/Globulin [Mass ratio] 1.3 {ratio} Normal 0.9-2.4 [facility] Comment on above: Performed By: #### L 100.0100, L500.4050, L503.7505, L501.2300 ####[facility] [address] [place], [address] ALK PHOS 53 U/L Normal 35-104 [facility] Comment on above: Performed By: #### L 100.0100, L500.4050, L503.7505, L501.2300 ####[facility] [address] [place], [address] ALT [Catalytic activity/Vol] 41 U/L High <=34 [facility] Comment on above: Performed By: #### L 100.0100, L500.4050, L503.7505, L501.2300 ####[facility] [address] [place], [address] AST [Catalytic activity/Vol] 20 U/L Normal <=31 [facility] Comment on above: Result Comment: Hemo lysis present, Results??could be affected.?? Performed By: #### L 100.0100, L500.4050, L503.7505, L501.2300 ####[facility] [address] [place], [address] Bilirubin [Mass/Vol] 0.23 mg/dL Normal 0.00-1.[address] [facility] Comment on above: Performed By: #### L 100.0100, L500.4050, L503.7505, L501.2300 ####[facility] [address] [place], [address] BUN/CRE 27.3 RATIO High 10-20 [facility] Comment on above: Performed By: #### L 100.0100, L500.4050, L503.7505, L501.2300 ####[facility] [address] [place], [address] Calcium [Mass/Vol] 8.6 mg/dL Normal 7.6-11.0 [facility] Comment on above: Performed By: #### L 100.0100, L500.4050, L503.7505, L501.2300 ####[facility] [address] [place], [address] Chloride [Moles/Vol] 88 mmol/L Low 98-[address] [facility] Comment on above: Performed By: #### L 100.0100, L500.4050, L503.7505, L501.2300 ####[facility] [address] [place], [address] CO2 [Moles/Vol] 42.0 mmol/L High 21.0-32.0 [facility] Comment on above: Performed By: #### L 100.0100, L500.4050, L503.7505, L501.2300 ####[facility] [address] [place], [address] Creatinine [Mass/Vol] 0.60 mg/dL Low 0.70-1.20 [facility] Comment on above: Performed By: #### L 100.0100, L500.4050, L503.7505, L501.2300 ####[facility] [address] [place], [address] ECRCL 77.49 ml/min Normal 50-250 [facility] Comment on above: Performed By: #### L 100.0100, L500.4050, L503.7505, L501.2300 ####[facility] [address] [place], [address] GAP 10 Normal 5-15 [facility] Comment on above: Performed By: #### L 100.0100, L500.4050, L503.7505, L501.2300 ####[facility] [address] [place], [address] GFR/1.73 sq M.predicted among non-blacks MDRD (S/P/Bld) [Vol rate/Area] 96 mL/min/{1.73_m2} Normal >60 [facility] Comment on above: Result Comment: mL/m in/1.73m2 CKD-EPI Creatinine Equation (2020) Performed By: #### L 100.0100, L500.4050, L503.7505, L501.2300 ####[facility] [address] [place], [address] Globulin (S) [Mass/Vol] 2.7 g/dL Normal 2.2-4.2 [facility] Comment on above: Performed By: #### L 100.0100, L500.4050, L503.7505, L501.2300 ####[facility] [address] [place], [address] Glucose [Mass/Vol] 233 mg/dL High 70-99 [facility] Comment on above: Performed By: #### L 100.0100, L500.4050, L503.7505, L501.2300 ####[facility] [address] [place], [address] Potassium [Moles/Vol] 4.0 mmol/L Normal 3.3-5.1 [facility] Comment on above: Result Comment: Hemo lysis present, Results??could be affected.?? Performed By: #### L 100.0100, L500.4050, L503.7505, L501.2300 ####[facility] [address] [place], [address] Sodium [Moles/Vol] 140 mmol/L Normal 133-145 [facility] Comment on above: Performed By: #### L 100.0100, L500.4050, L503.7505, L501.2300 ####[facility] [address] [place], [address] T PROT 6.1 g/dL Normal 5.9-8.4 [facility] Comment on above: Performed By: #### L 100.0100, L500.4050, L503.7505, L501.2300 ####[facility] [address] [place], [address] Urea nitrogen [Mass/Vol] 16 mg/dL Normal 4-19 [facility] Comment on above: Performed By: #### L 100.0100, L500.4050, L503.7505, L501.2300 ####[facility] [address] [place], [place] [address] Electrocardiogram reportOrde red By: Yasmani Bruno on 04-06-2025 EKG study [facility] Cardiovascular Services [address] [place] [address] 12 Lead EKG 04/05/252057 MR#: [id number] Acct: [id number] Name: PIPER CLARK Rep #:[id number] 1 : 1955 69 From: Yasmani parra MD Attending Dr: Dr. Ken Vieyra MD Status: ADM IN Ordering Dr: Andi Ortiz MD Date: 04/05/25 Location: [facility] Sex: F C Admitted: 04/05/25 Test Reason : SOB Blood Pressure : */* mmHG Vent. Rate : 97 BPM Atrial Rate : * BPM P-R Int : * ms QRS Dur : 88 ms QT Int : 316 ms P-R-T Axes : * 59 30 degrees QTcB Int : 401 ms Atrial fibrillation Low voltage QRS Abnormal ECG Confirmed by Yasmani Bruno ([id number]), editorial cartoonist SHANNAN MAN ([id number]) on :25:24 AM Referred By: Orlando Bolden Confirmed By: Yasmani Bruno 04/06/2525 Date _ Yasmani Bruno MD CC: Dr. Andi Ortiz MD; Dr. Genia Chappell MD; Dr. Orlando Bolden DO; Dr. Ken Vieyra MD ~ Signed [facility] Other Phone: Erythrocyte Sed Rateon 04-06 SED RATE 18 mm/hr Normal 0-30 [facility] Comment on above: Performed By: #### L 501.6710, L101.9900 ####[facility] [address] [place], [address] Erythrocyte morphology asses smentOrdered By: Orlando Maldonado on 04-06-2025 RBC morphology finding Nom (Bld) NORM C+C NORMAL NORM C&C [facility] Erythrocyte sedimentation ra teOrdered By: Orlando Maldonado on 04-06-2025 ESR (Bld) [Velocity] 18 mm/h 0-[address] [facility] L499.0043on 04-06-2025 Trop T High Sen 12 ng/L Normal <=14 [facility] Comment on above: Performed By: #### L 499.0043 ####[facility] [address] [place], [address] L503.7505on 04-06-2025 Natriuretic peptide B (Bld) [Mass/Vol] 1763 pg/mL High <=900 [facility] Comment on above: Result Comment: Hear t Failure Unlikely: < 300 pg/mLHeart Failure Likely< 50 Years: > 450 pg/mL50-75 Years: > 900 pg/mL>75 Years: > 1800 pg/mL Performed By: #### L 100.0100, L500.4050, L503.7505, L501.2300 ####[facility] [address] [place], [place], [address] LDL calc ser/plasOrdered By: Ken Vieyra on 04-06-2025 Cholesterol in LDL [Mass/Vol] 61 mg/dL [facility] Comment on above: Pdnxxrnhlq=192-638 m g/dL & Higher Pqmp=059 mg/dL or greater Laboratory - Chemistry and C hemistry - challengeOrdered By: Orlando Maldonado on 04-06-2025 AST [Catalytic activity/Vol] 20 U/L <32 [facility] Comment on above: Hemolysis present, R esults could be affected. Lactic Acidon 04-06-2025 Lactate [Moles/Vol] 3.0 mmol/L Invalid Interpretation Code 0.0-2.0 [facility] Comment on above: Result Comment: Crit ical Result(s) Called at 1003: by: NEHEMIAH GUTIÉRREZ. ??Results read back by same. Performed By: #### L 503.6005 ####[facility] [address] [place], [place], [id number] Lactate [Moles/Vol] 2.2 mmol/L Invalid Interpretation Code 0.0-2.0 [facility] Comment on above: Order Comment: Y Result Comment: Crit ical Result(s) Called at 0559: by: JJ BELL??Results read back by same. Performed By: #### L 503.6005 ####[facility] [address] [place], [address] Lactate [Moles/Vol] 2.9 mmol/L Invalid Interpretation Code 0.0-2.0 [facility] Comment on above: Order Comment: N Result Comment: Crit ical Result(s) Called at: 0136 by:??NBURNS TO EAFFOLTERResults read back by same. Performed By: #### L 503.6005 ####[facility] [address] [place], [address] Lactic acid measurementOrder ed By: Orlando Maldonado on 04-06-2025 Lactate [Moles/Vol] 3.0 mmol/L High 0.0-2.0 [facility] Comment on above: Critical Result(s) C alled at 1003: by: NEHEMIAH RAUSCH. Results read back by same. Lipid Profileon 04-06-2025 CHOL:HDL 2.04 Normal [facility] Comment on above: Performed By: #### L 500.6154 ####[facility] [address] [place], [place], [id number] Cholesterol [Mass/Vol] 147 mg/dL Normal <=200 [facility] Comment on above: Result Comment: Chol esterol level, Desirable <200 mg/dLBorderline high cholesterol 200-239 mg/dLHigh cholesterol >=240 mg/dLRecommendations of the NCEP Adult Treatment Panel for thefollowing risk-cutoff thresholds for the [place] Americanpulation. Performed By: #### L 500.6109 ####[facility] [address] [place], [address] Cholesterol in HDL [Mass/Vol] 72 mg/dL Normal [facility] Comment on above: Result Comment: Leslie onal Cholesterol Education Program (NCEP) guidelines:<40 mg/dL: Low HDL-cholesterol (major risk factor for CHD)>= 60 mg/dL: High HDL-cholesterol (negative risk factor forCHD)HDL-cholesterol is affected by a number of factors, e.g.smoking, exercise, hormones, sex and age. Performed By: #### L 500.4100 ####[facility] [address] [place], [address] Cholesterol in LDL [Mass/Vol] 61 mg/dL Normal [facility] Comment on above: Result Comment: Bord pwvmue=561-416 mg/dL Higher Zefv=334 mg/dL or greater Performed By: #### L 500.4100 ####[facility] [address] [place], [address] Cholesterol in VLDL [Mass/Vol] 14 mg/dL Normal 5-40 [facility] Comment on above: Performed By: #### L 500.4100 ####[facility] [address] [place], [address] Triglyceride [Mass/Vol] 71 mg/dL Normal [facility] Comment on above: Result Comment: The drugs N-Acetylcysteine and Metamizole may falselydepress this assay.Normal range: <150 mg/dLBorderline High: 150-199 mg/dLHigh: 200-499 mg/dLVery High: >500 mg/dL Performed By: #### L 500.4100 ####[facility] [address] [place], [address] Magnesiumon 04-06-2025 Magnesium [Mass/Vol] 1.9 mg/dL Normal 1.5-2.[address] [facility] Comment on above: Performed By: #### L 501.5200 ####[facility] [address] [place], [address] Measurement, pHOrdered By: Ellen Maldonado on 04-06-2025 pH (Unsp spec) 7.41 [pH] 7.35-7.45 [facility] Natriuretic peptide.B prohor inessa N-Terminal [Mass/volume] in Serum or PlasmaOrdered By: Orlando Maldonado on 04-06-2025 Natriuretic peptide.B prohormone N-Terminal [Mass/Vol] 1763 pg/mL High <900 [facility] Comment on above: Heart Failure Unlike ly: < 300 pg/mLHeart Failure Likely< 50 Years: > 450 pg/mL50-75 Years: > 900 pg/mL>75 Years: > 1800 pg/mL No Panel InformationOrdered By: Orlando Maldonado on 04-06-2025 Bld Gas Crit Called To/Read Back By Yes [facility] Blood Gas Sample Site L Radial [facility] Blood Gas Specimen Type ART [facility] Blood Gas Vent Mode Not entered [facility] Oxygen Delivery Device BiPAP [facility] Blood Gas Notified Whom de joel [facility] Phosphoruson 04-06-2025 Phosphate [Mass/Vol] 3.2 mg/dL Normal 2.7-4.[address] [facility] Comment on above: Performed By: #### L 100.0100, L500.4050, L503.7505, L501.2300 ####[facility] [address] [place], [address] RESPIRATORY PANEL MOLECULARo n 04-06-2025 RP PANEL Normal [facility] Comment on above: Performed By: #### M 100.638 ####[facility] [address] [facility] [place], [address] Respiratory pathogens detect ion panel by molecular detection methodOrdered By: Orlando Maldonado on 04-06-2025 Respiratory pathogens DNA and RNA panel KEARA+probe (Resp) [facility] Screening total cholesterol/ high density lipoprotein (HDL) cholesterol ratioOrdered By: Ken Vieyra on 04-06-2025 Cholesterol.total/Choles terol in HDL [Mass ratio] 2.04 {ratio} [facility] Serum globulin measurementOr dered By: Orlando Maldonado on 04-06-2025 Globulin (S) [Mass/Vol] 2.7 g/dL 2.2-4.2 [facility] Serum or plasma C reactive p rotein measurement (mass/volume)Ordered By: Orlando Maldonado on 04-06-2025 CRP [Mass/Vol] 18.90 mg/L High 0.0-3.0 [facility] Serum or plasma alanine garza otransferase (ALT) measurementOrdered By: Orlando Maldonado on 04-06-2025 ALT [Catalytic activity/Vol] 41 U/L High <35 [facility] Serum or plasma albumin diallo urement (mass/volume)Ordered By: Orlando Maldonado on 04-06-2025 Albumin [Mass/Vol] 3.4 g/dL 3.4-4.8 [facility] Serum or plasma albumin/glob ulin mass ratioOrdered By: Orlando Maldonado on 04-06-2025 Albumin/Globulin [Mass ratio] 1.3 {ratio} 0.9-2.4 [facility] Serum or plasma alkaline pati sphatase measurementOrdered By: Orlando Maldonado on 04-06-2025 ALP [Catalytic activity/Vol] 53 U/L 35-104 [facility] Serum or plasma cholesterol in HDL measurement (mass/volume)Ordered By: Ken Vieyra on 04-06-2025 Cholesterol in HDL [Mass/Vol] 72 mg/dL >40 [facility] Comment on above: National Cholesterol Education Program (NCEP) guidelines:<40 mg/dL: Low HDL-cholesterol (major risk factor for CHD)>= 60 mg/dL: High HDL-cholesterol (negative risk factor for CHD)HDL-cholesterol is affected by a number of factors, e.g. smoking, exercise, hormones, sex and age. Serum or plasma cholesterol measurement (mass/volume)Ordered By: Ken Vieyra on 04-06-2025 Cholesterol [Mass/Vol] 147 mg/dL <201 [facility] Comment on above: Cholesterol level, D esirable <200 mg/dLBorderline high cholesterol 200-239 mg/dLHigh cholesterol >=240 mg/dLRecommendations of the NCEP Adult Treatment Panel for the following risk-cutoff thresholds for the [place] Greek population. Total proteinOrdered By: Severo Maldonado on 04-06-2025 Protein [Mass/Vol] 6.1 g/dL 5.9-8.4 [facility] Triglycerides measurementOrd ered By: Ken Vieyra on 04-06-2025 Triglyceride [Mass/Vol] 71 mg/dL <199 [facility] Comment on above: The drugs N-Acetylcy steine and Metamizole may falsely depress this assay. Normal range: <150 mg/dLBorderline High: 150-199 mg/dLHigh: 200-499 mg/dLVery High: >500 mg/dL Troponin T.cardiac [Mass/vol ume] in Serum or Plasma by High sensitivity methodOrdered By: Andi Ortiz on 04-06-2025 Troponin T.cardiac High sensitivity method [Mass/Vol] 12 ng/L <14 [facility] 12 Lead EKGon 04-05-2025 12 Lead EKG Normal [facility] Absolute lymphocyte countOrd ered By: Andi Ortiz on 04-05-2025 Lymphocytes Auto (Unsp spec) [#/Vol] 0.57 10*3/uL Low 0.83-4.51 [facility] Absolute neutrophil countOrd ered By: Andisoraida Ortiz on 04-05-2025 Neutrophils (Bld) [#/Vol] 23.4 10*3/uL High 2.0-7.7 [facility] Anion gap in Serum or Plasma Ordered By: Andi Ortiz on 04-05-2025 Anion gap [Moles/Vol] 7 mmol/L 5-15 [facility] Automated lymphocyte count a s percentage of total leukocytesOrdered By: Andi Ortiz on 04-05-2025 Lymphocytes/100 WBC Auto (Unsp spec) 2.2 % Low 19-41 [facility] BUN/creatinine ratioOrdered By: Andi Ortiz on 04-05-2025 Urea nitrogen/Creatinine [Mass ratio] 29.9 mg/mg High 10- [facility] Basic Metabolic Profile (BMP )on 04-05-2025 BUN/CRE 29.9 RATIO High 09-14 [facility] Comment on above: Performed By: #### L 500.2500, L100.0100 ####[facility] [address] [place], [address] Calcium [Mass/Vol] 9.2 mg/dL Normal 7.6-11.0 [facility] Comment on above: Performed By: #### L 500.2500, L100.0100 ####[facility] [address] [place], [address] Chloride [Moles/Vol] 89 mmol/L Low 98-[address] [facility] Comment on above: Performed By: #### L 500.2500, L100.0100 ####[facility] [address] [place], [address] CO2 [Moles/Vol] 42.2 mmol/L High 21.0-32.0 [facility] Comment on above: Performed By: #### L 500.2500, L100.0100 ####[facility] [address] [place], [address] Creatinine [Mass/Vol] 0.77 mg/dL Normal 0.70-1.20 [facility] Comment on above: Performed By: #### L 500.2500, L100.0100 ####[facility] [address] [place], [address] ECRCL 77.14 ml/min Normal 50-250 [facility] Comment on above: Performed By: #### L 500.2500, L100.0100 ####[facility] [address] [place], [address] GAP 7 Normal 5-15 [facility] Comment on above: Performed By: #### L 500.2500, L100.0100 ####[facility] [address] [place], [address] GFR/1.73 sq M.predicted among non-blacks MDRD (S/P/Bld) [Vol rate/Area] 82 mL/min/{1.73_m2} Normal >60 [facility] Comment on above: Result Comment: mL/m in/1.73m2 CKD-EPI Creatinine Equation (2020) Performed By: #### L 500.2500, L100.0100 ####[facility] [address] [place], [address] Glucose [Mass/Vol] 305 mg/dL High 70-99 [facility] Comment on above: Performed By: #### L 500.2500, L100.0100 ####[facility] [address] [place], [address] Potassium [Moles/Vol] 4.7 mmol/L Normal 3.3-5.1 [facility] Comment on above: Performed By: #### L 500.2500, L100.0100 ####[facility] [address] [place], [address] Sodium [Moles/Vol] 138 mmol/L Normal 133-145 [facility] Comment on above: Performed By: #### L 500.2500, L100.0100 ####[facility] [address] [place], [address] Urea nitrogen [Mass/Vol] 23 mg/dL High 4-19 [facility] Comment on above: Performed By: #### L 500.2500, L100.0100 ####[facility] [address] [place], [address] Basophil percentageOrdered B y: Andi Ortiz on 04-05-2025 Basophils/100 WBC (Bld) 0.2 % 0-1 [facility] Blood cultureOrdered By: Skylar Ortiz on 04-05-2025 Bacteria identified Cx Nom (Bld) No growth in 5 days. [facility] Bacteria identified Cx Nom (Bld) No growth in 5 days. [facility] Blood manual differential co mment interpretation (narrative result)Ordered By: Andi Ortiz on 04-05-2025 Manual differential comment Eugene (Bld) [Interp] SCANNED [facility] Blood stomatocytes detection by light microscopyOrdered By: Andi Ortiz on 04-05-2025 Stomatocytes LM Ql (Bld) 2+ [facility] CBC W/Diff, Automatedon 03-26 Anisocytosis Ql (Bld) 1+ Normal [facility] Comment on above: Performed By: #### L 500.2500, L100.0100 ####[facility] [address] [place], [address] BASO STIPPLING RARE Normal [facility] Comment on above: Performed By: #### L 500.2500, L100.0100 ####[facility] [address] [place], [address] PLT EST ADEQUATE Normal ADEQ [facility] Comment on above: Performed By: #### L 500.2500, L100.0100 ####[facility] [address] [place], [address] SMEAR COMMENT SCANNED Normal [facility] Comment on above: Performed By: #### L 500.2500, L100.0100 ####[facility] [address] [place], [address] STOMATOCYTE 2+ Normal [facility] Comment on above: Performed By: #### L 500.2500, L100.0100 ####[facility] [address] [place], [address] CT Chest, Abd, Pelvis WO Con ton 04-05-2025 CT Chest, Abd, Pelvis WO Cont Normal [facility] Carbon dioxide, total [Moles /volume] in Central venous bloodOrdered By: Andi Ortiz on 04-05-2025 CO2 [Moles/Vol] 42.2 mmol/L High 21.0-32.0 [facility] Chest 1 View (Portable)on Chest 1 View (Portable) Normal [facility] Chloride assayOrdered By: Holland Ortiz on 04-05-2025 Chloride [Moles/Vol] 89 mmol/L Low 98-[address] [facility] Emergency Department Summary on 04-05-2025 Emergency Department Summary Normal [facility] Eosinophil percentageOrdered By: Andi Ortiz on 04-05-2025 Eosinophils/100 WBC (Bld) 0.0 % 0-5 [facility] Erythrocyte basophilic stipp ling detectionOrdered By: Andi Ortiz on 04-05-2025 Basophilic stippling LM Ql (Bld) RARE [facility] Erythrocyte distribution wid th ratioOrdered By: Andi Ortiz on 04-05-2025 Erythrocyte distribution width (RBC) [Ratio] 15.1 % High 11.6-14.6 [facility] Erythrocyte distribution wid th standard deviationOrdered By: Andi Ortiz on 04-05-2025 Erythrocyte distribution width (RBC) [Ratio] 53.1 fl High 35.1-43.9 [facility] Glomerular filtration rate ( GFR) estimation/1.73 sq m using serum, plasma, or whole bOrdered By: Andi Ortiz on 04-05-2025 GFR/1.73 sq M.predicted among non-blacks MDRD (S/P/Bld) [Vol rate/Area] 82 mL/min/{1.73_m2} >60 [facility] Comment on above: mL/min/1.73m2 CKD-EP I Creatinine Equation (2020) H AND P Exam - Hospitaliston 04-05-2025 H&P Exam - Hospitalist Normal [facility] Hematocrit Auto (Bld) [Volum e fraction]Ordered By: Andi Ortiz on 04-05-2025 Hematocrit (Bld) [Volume fraction] 38.9 % 37-47 [facility] Hemoglobin measurementOrdere d By: Andi Ortiz on 04-05-2025 Hemoglobin (Bld) [Mass/Vol] 11.7 g/dL Low 12.0-15.0 [facility] Immature granulocytes/100 WB C Auto (Bld)Ordered By: Andi Ortiz on 04-05-2025 Immature granulocytes/100 WBC (Bld) 1.200 % High 0.0-0.9 [facility] Comment on above: IG% - Immature Granu locytes (promyelocytes, myelocytes and metamyelocytes) > 1% indicates that a LEFT SHIFT is Present. L499.0042on 04-05-2025 Trop T High Sen 8 ng/L Normal <=14 [facility] Comment on above: Performed By: #### L 499.0042 ####[facility] [address] [place], [address] L501.4021on 04-05-2025 Trop T High Sen 10 ng/L Normal <=14 [facility] Comment on above: Performed By: #### L 503.7505, L501.4021 ####[facility] [address] [place], [place], [address] L503.7505on 04-05-2025 Natriuretic peptide B (Bld) [Mass/Vol] 1349 pg/mL High <=900 [facility] Comment on above: Result Comment: Hear t Failure Unlikely: < 300 pg/mLHeart Failure Likely< 50 Years: > 450 pg/mL50-75 Years: > 900 pg/mL>75 Years: > 1800 pg/mL Performed By: #### L 503.7505, L501.4021 ####[facility] [address] [place], [place], [address] Laboratory - Hematology and Cell countsOrdered By: Andi Ortiz on 04-05-2025 Anisocytosis Ql (Bld) 1+ [facility] Lactic Acidon 04-05-2025 Lactate [Moles/Vol] 2.5 mmol/L Invalid Interpretation Code 0.0-2.0 [facility] Comment on above: Order Comment: Y Result Comment: Crit ical Result(s) Called at: 2213 by:??KAYLEE ROLON Results read back by same. Performed By: #### L 503.6005 ####[facility] [address] [place], [place], [address] Lactic acid measurementOrder ed By: Andi Ortiz on 04-05-2025 Lactate [Moles/Vol] 2.5 mmol/L High 0.0-2.0 [facility] Comment on above: Critical Result(s) C alled at: 2213 by: KAYLEE CLEMENTS Results read back by same. MCV (mean corpuscular volume ) determinationOrdered By: Andi Ortiz on 04-05-2025 MCV (RBC) [Entitic vol] 96.3 fL 81-99 [facility] Magnesium measurement (mass/ volume)Ordered By: Orlando Maldonado on 04-05-2025 Magnesium (Unsp spec) [Mass/Vol] 1.9 mg/dL 1.5-2.2 [facility] Mean corpuscular hemoglobin (MCH) determinationOrdered By: Andi Ortiz on 04-05-2025 MCH (RBC) [Entitic mass] 29.0 pg 27.0-32.0 [facility] Mean corpuscular hemoglobin concentration (MCHC) determinationOrdered By: Andi Ortiz on 04-05-2025 MCHC (RBC) [Mass/Vol] 30.1 g/dL Low 32-36 [facility] Mean platelet volume determi nationOrdered By: Andi Ortiz on 04-05-2025 Platelet mean volume (Bld) [Entitic vol] 9.8 fL 6.2-12.0 [facility] Monocyte percentageOrdered B y: Andi Ortiz on 04-05-2025 Monocytes/100 WBC (Bld) 4.1 % 0-10 [facility] Natriuretic peptide.B prohor inessa N-Terminal [Mass/volume] in Serum or PlasmaOrdered By: Andi Ortiz on 04-05-2025 Natriuretic peptide.B prohormone N-Terminal [Mass/Vol] 1349 pg/mL High <900 [facility] Comment on above: Heart Failure Unlike ly: < 300 pg/mLHeart Failure Likely< 50 Years: > 450 pg/mL50-75 Years: > 900 pg/mL>75 Years: > 1800 pg/mL Neutrophil percentageOrdered By: Andi Ortiz on 04-05-2025 Neutrophils/100 WBC (Bld) 92.3 % High 47-70 [facility] Nucleated red blood cell per centageOrdered By: Andi Ortiz on 04-05-2025 Nucleated RBC/100 WBC (Bld) [Ratio] 0 % 0-5 [facility] Platelet countOrdered By: Holland Ortiz on 04-05-2025 Platelets (Bld) [#/Vol] 367 10*3/uL 150-450 [facility] Platelet estimateOrdered By: Andi Ortiz on 04-05-2025 Platelets LM Ql (Bld) ADEQUATE ADEQ [facility] Potassium measurement (mass/ volume)Ordered By: Andi Ortiz on 04-05-2025 Potassium (Unsp spec) [Mass/Vol] 4.7 mmol/L 3.3-5.1 [facility] RBC Auto (Bld) [#/Vol]Ordere d By: Andi Ortiz on 04-05-2025 RBC (Bld) [#/Vol] 4.04 10*6/uL Low 4.2-5.4 [facility] Serum creatinine measurement (mass/volume)Ordered By: Andi Ortiz on 04-05-2025 Creatinine [Mass/Vol] 0.77 mg/dL 0.70-1.20 [facility] Serum glucose measurement (m ass/volume)Ordered By: Andi Ortiz on 04-05-2025 Glucose [Mass/Vol] 305 mg/dL High 70-99 [facility] Serum or plasma calcium diallo urement (mass/volume)Ordered By: Andi Ortiz on 04-05-2025 Calcium [Mass/Vol] 9.2 mg/dL 7.6-11.0 [facility] Serum or plasma urea nitroge n measurement (mass/volume)Ordered By: Andi Ortiz on 04-05-2025 Urea nitrogen [Mass/Vol] 23 mg/dL High 4-19 [facility] Sodium levelOrdered By: Brooks Ortiz on 04-05-2025 Sodium [Moles/Vol] 138 mmol/L 133-145 [facility] Troponin T.cardiac [Mass/vol ume] in Serum or Plasma by High sensitivity methodOrdered By: Andi Ortiz on 04-05-2025 Troponin T.cardiac High sensitivity method [Mass/Vol] 8 ng/L <14 [facility] Troponin T.cardiac High sensitivity method [Mass/Vol] 10 ng/L <14 [facility] Comment on above: Delta: 19 on -2002 White blood cell (WBC) count Ordered By: Andi Ortiz on 04-05-2025 WBC (Bld) [#/Vol] 25.4 10*3/uL High 4.4-11.0 [facility] Anion gap in Serum or Plasma Ordered By: Becca Dillard on 04-03-2025 Anion gap [Moles/Vol] 6 mmol/L 5-15 [facility] BUN/creatinine ratioOrdered By: Becca Dillard on 04-03-2025 Urea nitrogen/Creatinine [Mass ratio] 30.0 mg/mg High 10- [facility] Basic Metabolic Profile (BMP )on 04-03-2025 BUN/CRE 30.0 RATIO High - [facility] Comment on above: Performed By: #### L 500.2500 ####[facility] [address] [place], [address] Calcium [Mass/Vol] 9.2 mg/dL Normal 7.6-11.0 [facility] Comment on above: Performed By: #### L 500.2500 ####[facility] [address] [place], [address] Chloride [Moles/Vol] 90 mmol/L Low 98-[address] [facility] Comment on above: Performed By: #### L 500.2500 ####[facility] [address] [place], [address] CO2 [Moles/Vol] 41.7 mmol/L High 21.0-32.0 [facility] Comment on above: Performed By: #### L 500.2500 ####[facility] [address] [place], [address] Creatinine [Mass/Vol] 0.78 mg/dL Normal 0.70-1.20 [facility] Comment on above: Performed By: #### L 500.2500 ####[facility] [address] [place], [address] GAP 6 Normal 5-15 [facility] Comment on above: Performed By: #### L 500.2500 ####[facility] [address] [place], [address] GFR/1.73 sq M.predicted among non-blacks MDRD (S/P/Bld) [Vol rate/Area] 81 mL/min/{1.73_m2} Normal >60 [facility] Comment on above: Result Comment: mL/m in/1.73m2 CKD-EPI Creatinine Equation (2020) Performed By: #### L 500.2500 ####[facility] [address] [place], [address] Glucose [Mass/Vol] 237 mg/dL High 70-99 [facility] Comment on above: Performed By: #### L 500.2500 ####[facility] [address] [place], [address] Potassium [Moles/Vol] 5.1 mmol/L Normal 3.3-5.1 [facility] Comment on above: Result Comment: Hemo lysis present, Results??could be affected.?? Performed By: #### L 500.2500 ####[facility] [address] [place], [address] Sodium [Moles/Vol] 137 mmol/L Normal 133-145 [facility] Comment on above: Performed By: #### L 500.2500 ####[facility] [address] [place], [address] Urea nitrogen [Mass/Vol] 23 mg/dL High 4-19 [facility] Comment on above: Performed By: #### L 500.2500 ####[facility] [address] [place], [address] Carbon dioxide, total [Moles /volume] in Central venous bloodOrdered By: Becca Dillard on 04-03-2025 CO2 [Moles/Vol] 41.7 mmol/L High 21.0-32.0 [facility] Chloride assayOrdered By: Sergio Dillard on 04-03-2025 Chloride [Moles/Vol] 90 mmol/L Low 98-[address] [facility] Glomerular filtration rate ( GFR) estimation/1.73 sq m using serum, plasma, or whole bOrdered By: Becca Dillard on 04-03-2025 GFR/1.73 sq M.predicted among non-blacks MDRD (S/P/Bld) [Vol rate/Area] 81 mL/min/{1.73_m2} >60 [facility] Comment on above: mL/min/1.73m2 CKD-EP I Creatinine Equation (2020) Potassium measurement (mass/ volume)Ordered By: Becca Dillard on 04-03-2025 Potassium (Unsp spec) [Mass/Vol] 5.1 mmol/L 3.3-5.1 [facility] Comment on above: Hemolysis present, R esults could be affected. Serum creatinine measurement (mass/volume)Ordered By: Becca Dillard on 04-03-2025 Creatinine [Mass/Vol] 0.78 mg/dL 0.70-1.20 [facility] Serum glucose measurement (m ass/volume)Ordered By: Becca Dillard on 04-03-2025 Glucose [Mass/Vol] 237 mg/dL High 70-99 [facility] Serum or plasma calcium diallo urement (mass/volume)Ordered By: Becca Dillard on 04-03-2025 Calcium [Mass/Vol] 9.2 mg/dL 7.6-11.0 [facility] Serum or plasma urea nitroge n measurement (mass/volume)Ordered By: Becca Dillard on 04-03-2025 Urea nitrogen [Mass/Vol] 23 mg/dL High - [facility] Sodium levelOrdered By: Faith Dillard on 04-03-2025 Sodium [Moles/Vol] 137 mmol/L 133-145 [facility] Basic Metabolic Profile (BMP )on 03-31-2025 BUN Normal -19 [facility] Comment on above: Result Comment: Canc elled via OM: Order cancelled - Patient discharged Performed By: #### L 100.0100, L500.2500 ####[facility] [address] [place], [address] BUN/CRE Normal 10-20 [facility] Comment on above: Result Comment: Canc elled via OM: Order cancelled - Patient discharged Performed By: #### L 100.0100, L500.2500 ####[facility] [address] [place], [address] Calcium Normal 7.6-11.0 [facility] Comment on above: Result Comment: Canc elled via OM: Order cancelled - Patient discharged Performed By: #### L 100.0100, L500.2500 ####[facility] [address] [place], [address] CL Normal 98-108 [facility] Comment on above: Result Comment: Canc elled via OM: Order cancelled - Patient discharged Performed By: #### L 100.0100, L500.2500 ####[facility] [address] [place], [address] CO2 Normal 21.0-32.0 [facility] Comment on above: Result Comment: Canc elled via OM: Order cancelled - Patient discharged Performed By: #### L 100.0100, L500.2500 ####[facility] [address] [place], [address] CREAT,SERUM Normal 0.70-1.20 [facility] Comment on above: Result Comment: Canc elled via OM: Order cancelled - Patient discharged Performed By: #### L 100.0100, L500.2500 ####[facility] [address] [place], [address] eGFR Normal >60 [facility] Comment on above: Result Comment: Canc elled via OM: Order cancelled - Patient discharged Performed By: #### L 100.0100, L500.2500 ####[facility] [address] [place], [address] GAP Normal 5-15 [facility] Comment on above: Result Comment: Canc elled via OM: Order cancelled - Patient discharged Performed By: #### L 100.0100, L500.2500 ####[facility] [address] [place], [address] GLU Normal 70-99 [facility] Comment on above: Result Comment: Canc elled via OM: Order cancelled - Patient discharged Performed By: #### L 100.0100, L500.2500 ####[facility] [address] [place], [address] Potassium Normal 3.3-5.1 [facility] Comment on above: Result Comment: Canc elled via OM: Order cancelled - Patient discharged Performed By: #### L 100.0100, L500.2500 ####[facility] [address] [place], [address] Basic Metabolic Profile (BMP) Normal 133-145 [facility] Comment on above: Result Comment: Canc elled via OM: Order cancelled - Patient discharged Performed By: #### L 100.0100, L500.2500 ####[facility] [address] [place], [address] CBC W/Diff, Automatedon 05-0 6-2024 Absolute Neut Normal 2.0-7.7 [facility] Comment on above: Result Comment: Canc elled via OM: Order cancelled - Patient discharged Performed By: #### L 100.0100, L500.2500 ####[facility] [address] [place], [address] HCT Normal 37-47 [facility] Comment on above: Result Comment: Canc elled via OM: Order cancelled - Patient discharged Performed By: #### L 100.0100, L500.2500 ####[facility] [address] [place], [address] HGB Normal 12.0-15.0 [facility] Comment on above: Result Comment: Canc elled via OM: Order cancelled - Patient discharged Performed By: #### L 100.0100, L500.2500 ####[facility] [address] [place], [address] MCH Normal 27.0-32.0 [facility] Comment on above: Result Comment: Canc elled via OM: Order cancelled - Patient discharged Performed By: #### L 100.0100, L500.2500 ####[facility] [address] [place], [address] MCHC Normal 32-36 [facility] Comment on above: Result Comment: Canc elled via OM: Order cancelled - Patient discharged Performed By: #### L 100.0100, L500.2500 ####[facility] [address] [place], [address] MCV Normal 81-99 [facility] Comment on above: Result Comment: Canc elled via OM: Order cancelled - Patient discharged Performed By: #### L 100.0100, L500.2500 ####[facility] [address] [place], [address] NEUT% Normal 47-70 [facility] Comment on above: Result Comment: Canc elled via OM: Order cancelled - Patient discharged Performed By: #### L 100.0100, L500.2500 ####[facility] [address] [place], [address] PLT Normal 150-450 [facility] Comment on above: Result Comment: Canc elled via OM: Order cancelled - Patient discharged Performed By: #### L 100.0100, L500.2500 ####[facility] [address] [place], [address] RBC Normal 4.2-5.4 [facility] Comment on above: Result Comment: Canc elled via OM: Order cancelled - Patient discharged Performed By: #### L 100.0100, L500.2500 ####[facility] [address] [place], [address] RDW CV Normal 11.6-14.6 [facility] Comment on above: Result Comment: Canc elled via OM: Order cancelled - Patient discharged Performed By: #### L 100.0100, L500.2500 ####[facility] [address] [place], [address] RDW SD Normal 35.1-43.9 [facility] Comment on above: Result Comment: Canc elled via OM: Order cancelled - Patient discharged Performed By: #### L 100.0100, L500.2500 ####[facility] [address] [place], [address] WBC Normal 4.4-11.0 [facility] Comment on above: Result Comment: Canc elled via OM: Order cancelled - Patient discharged Performed By: #### L 100.0100, L500.2500 ####[facility] [address] [place], [address] International normalized rat io (INR) calculationOrdered By: Genia Chappell on 03-31-2025 INR Coag (Bld) [Relative time] 1.2 {INR} [facility] Prothrombin Time w/INRon INR Coag (PPP) [Relative time] 1.2 {INR} Normal [facility] Comment on above: Performed By: #### L 300.3900 ####[facility] [address] [place], [address] PT Coag (PPP) [Time] 15.8 s High 11.7-14.[address] [facility] Comment on above: Performed By: #### L 300.3900 ####[facility] [address] [place], [address] Prothrombin timeOrdered By: Genia Chappell on 03-31-2025 PT Coag (PPP) [Time] 15.8 s High 11.7-14.[address] [facility] Basic Metabolic Profile (BMP )on 03-30-2025 BUN Normal 4-19 [facility] Comment on above: Result Comment: Canc elled via OM: Order cancelled - Patient discharged Performed By: #### L 100.0100, L500.2500 ####[facility] [address] [place], [address] BUN/CRE Normal 10-20 [facility] Comment on above: Result Comment: Canc elled via OM: Order cancelled - Patient discharged Performed By: #### L 100.0100, L500.2500 ####[facility] [address] [place], [address] Calcium Normal 7.6-11.0 [facility] Comment on above: Result Comment: Canc elled via OM: Order cancelled - Patient discharged Performed By: #### L 100.0100, L500.2500 ####[facility] [address] [place], [address] CL Normal 98-108 [facility] Comment on above: Result Comment: Canc elled via OM: Order cancelled - Patient discharged Performed By: #### L 100.0100, L500.2500 ####[facility] [address] [place], [address] CO2 Normal 21.0-32.0 [facility] Comment on above: Result Comment: Canc elled via OM: Order cancelled - Patient discharged Performed By: #### L 100.0100, L500.2500 ####[facility] [address] [place], [address] CREAT,SERUM Normal 0.70-1.20 [facility] Comment on above: Result Comment: Canc elled via OM: Order cancelled - Patient discharged Performed By: #### L 100.0100, L500.2500 ####[facility] [address] [place], [address] eGFR Normal >60 [facility] Comment on above: Result Comment: Canc elled via OM: Order cancelled - Patient discharged Performed By: #### L 100.0100, L500.2500 ####[facility] [address] [place], [address] GAP Normal 5-15 [facility] Comment on above: Result Comment: Canc elled via OM: Order cancelled - Patient discharged Performed By: #### L 100.0100, L500.2500 ####[facility] [address] [place], [address] GLU Normal 70-99 [facility] Comment on above: Result Comment: Canc elled via OM: Order cancelled - Patient discharged Performed By: #### L 100.0100, L500.2500 ####[facility] [address] [place], [address] Potassium Normal 3.3-5.1 [facility] Comment on above: Result Comment: Canc elled via OM: Order cancelled - Patient discharged Performed By: #### L 100.0100, L500.2500 ####[facility] [address] [place], [address] Basic Metabolic Profile (BMP) Normal 133-145 [facility] Comment on above: Result Comment: Canc elled via OM: Order cancelled - Patient discharged Performed By: #### L 100.0100, L500.2500 ####[facility] [address] [place], [address] CBC W/Diff, Automatedon 05-0 5-2024 Absolute Neut Normal 2.0-7.7 [facility] Comment on above: Result Comment: Canc elled via OM: Order cancelled - Patient discharged Performed By: #### L 100.0100, L500.2500 ####[facility] [address] [place], [address] HCT Normal 37-47 [facility] Comment on above: Result Comment: Canc elled via OM: Order cancelled - Patient discharged Performed By: #### L 100.0100, L500.2500 ####[facility] [address] [place], [address] HGB Normal 12.0-15.0 [facility] Comment on above: Result Comment: Canc elled via OM: Order cancelled - Patient discharged Performed By: #### L 100.0100, L500.2500 ####[facility] [address] [place], [address] MCH Normal 27.0-32.0 [facility] Comment on above: Result Comment: Canc elled via OM: Order cancelled - Patient discharged Performed By: #### L 100.0100, L500.2500 ####[facility] [address] [place], [address] MCHC Normal 32-36 [facility] Comment on above: Result Comment: Canc elled via OM: Order cancelled - Patient discharged Performed By: #### L 100.0100, L500.2500 ####[facility] [address] [place], [address] MCV Normal 81-99 [facility] Comment on above: Result Comment: Canc elled via OM: Order cancelled - Patient discharged Performed By: #### L 100.0100, L500.2500 ####[facility] [address] [place], [address] NEUT% Normal 47-70 [facility] Comment on above: Result Comment: Canc elled via OM: Order cancelled - Patient discharged Performed By: #### L 100.0100, L500.2500 ####[facility] [address] [place], [address] PLT Normal 150-450 [facility] Comment on above: Result Comment: Canc elled via OM: Order cancelled - Patient discharged Performed By: #### L 100.0100, L500.2500 ####[facility] [address] [place], [address] RBC Normal 4.2-5.4 [facility] Comment on above: Result Comment: Canc elled via OM: Order cancelled - Patient discharged Performed By: #### L 100.0100, L500.2500 ####[facility] [address] [place], [address] RDW CV Normal 11.6-14.6 [facility] Comment on above: Result Comment: Canc elled via OM: Order cancelled - Patient discharged Performed By: #### L 100.0100, L500.2500 ####[facility] [address] [place], [address] RDW SD Normal 35.1-43.9 [facility] Comment on above: Result Comment: Canc elled via OM: Order cancelled - Patient discharged Performed By: #### L 100.0100, L500.2500 ####[facility] [address] [place], [address] WBC Normal 4.4-11.0 [facility] Comment on above: Result Comment: Canc elled via OM: Order cancelled - Patient discharged Performed By: #### L 100.0100, L500.2500 ####[facility] [address] [place], [address] Chest PA and Lateralon 03-30 Chest PA and Lateral Normal [facility] Basic Metabolic Profile (BMP )on 03-29-2025 BUN Normal 4-19 [facility] Comment on above: Performed By: #### L 500.2500, L100.0100 ####[facility] [address] [place], [address] BUN/CRE Normal 10-20 [facility] Comment on above: Performed By: #### L 500.2500, L100.0100 ####[facility] [address] [place], [address] Calcium Normal 7.6-11.0 [facility] Comment on above: Performed By: #### L 500.2500, L100.0100 ####[facility] [address] [place], [address] CL Normal 98-108 [facility] Comment on above: Performed By: #### L 500.2500, L100.0100 ####[facility] [address] [place], [address] CO2 Normal 21.0-32.0 [facility] Comment on above: Performed By: #### L 500.2500, L100.0100 ####[facility] [address] [place], [address] CREAT,SERUM Normal 0.70-1.20 [facility] Comment on above: Performed By: #### L 500.2500, L100.0100 ####[facility] [address] [place], [address] eGFR Normal >60 [facility] Comment on above: Performed By: #### L 500.2500, L100.0100 ####[facility] [address] [place], [address] GAP Normal 5-15 [facility] Comment on above: Performed By: #### L 500.2500, L100.0100 ####[facility] [address] [place], [address] GLU Normal 70-99 [facility] Comment on above: Performed By: #### L 500.2500, L100.0100 ####[facility] [address] [place], [address] Potassium Normal 3.3-5.1 [facility] Comment on above: Performed By: #### L 500.2500, L100.0100 ####[facility] [address] [place], [address] Basic Metabolic Profile (BMP) Normal 133-145 [facility] Comment on above: Performed By: #### L 500.2500, L100.0100 ####[facility] [address] [place], [address] CBC W/Diff, Automatedon 05-0 Absolute Neut Normal 2.0-7.7 [facility] Comment on above: Result Comment: Canc elled via OM: Order cancelled - Patient discharged Performed By: #### L 500.2500, L100.0100 ####[facility] [address] [place], [address] HCT Normal 37-47 [facility] Comment on above: Result Comment: Canc elled via OM: Order cancelled - Patient discharged Performed By: #### L 500.2500, L100.0100 ####[facility] [address] [place], [address] HGB Normal 12.0-15.0 [facility] Comment on above: Result Comment: Canc elled via OM: Order cancelled - Patient discharged Performed By: #### L 500.2500, L100.0100 ####[facility] [address] [place], [address] MCH Normal 27.0-32.0 [facility] Comment on above: Result Comment: Canc elled via OM: Order cancelled - Patient discharged Performed By: #### L 500.2500, L100.0100 ####[facility] [address] [place], [address] MCHC Normal 32-36 [facility] Comment on above: Result Comment: Canc elled via OM: Order cancelled - Patient discharged Performed By: #### L 500.2500, L100.0100 ####[facility] [address] [place], [address] MCV Normal 81-99 [facility] Comment on above: Result Comment: Canc elled via OM: Order cancelled - Patient discharged Performed By: #### L 500.2500, L100.0100 ####[facility] [address] [place], [address] NEUT% Normal 47-70 [facility] Comment on above: Result Comment: Canc elled via OM: Order cancelled - Patient discharged Performed By: #### L 500.2500, L100.0100 ####[facility] [address] [place], [address] PLT Normal 150-450 [facility] Comment on above: Result Comment: Canc elled via OM: Order cancelled - Patient discharged Performed By: #### L 500.2500, L100.0100 ####[facility] [address] [place], [address] RBC Normal 4.2-5.4 [facility] Comment on above: Result Comment: Canc elled via OM: Order cancelled - Patient discharged Performed By: #### L 500.2500, L100.0100 ####[facility] [address] [place], [address] RDW CV Normal 11.6-14.6 [facility] Comment on above: Result Comment: Canc elled via OM: Order cancelled - Patient discharged Performed By: #### L 500.2500, L100.0100 ####[facility] [address] [place], [address] RDW SD Normal 35.1-43.9 [facility] Comment on above: Result Comment: Canc elled via OM: Order cancelled - Patient discharged Performed By: #### L 500.2500, L100.0100 ####[facility] [address] [place], [address] WBC Normal 4.4-11.0 [facility] Comment on above: Result Comment: Canc elled via OM: Order cancelled - Patient discharged Performed By: #### L 500.2500, L100.0100 ####[facility] [address] [place], [address] Basic Metabolic Profile (BMP )on 03-28-2025 BUN Normal 4-19 [facility] Comment on above: Result Comment: Canc elled via OM: Order cancelled - Patient discharged Performed By: #### L 500.2500, L100.0100 ####[facility] [address] [place], [address] BUN/CRE Normal 10-20 [facility] Comment on above: Result Comment: Canc elled via OM: Order cancelled - Patient discharged Performed By: #### L 500.2500, L100.0100 ####[facility] [address] [place], [address] Calcium Normal 7.6-11.0 [facility] Comment on above: Result Comment: Canc elled via OM: Order cancelled - Patient discharged Performed By: #### L 500.2500, L100.0100 ####[facility] [address] [place], [address] CL Normal 98-108 [facility] Comment on above: Result Comment: Canc elled via OM: Order cancelled - Patient discharged Performed By: #### L 500.2500, L100.0100 ####[facility] [address] [place], [address] CO2 Normal 21.0-32.0 [facility] Comment on above: Result Comment: Canc elled via OM: Order cancelled - Patient discharged Performed By: #### L 500.2500, L100.0100 ####[facility] [address] [place], [address] CREAT,SERUM Normal 0.70-1.20 [facility] Comment on above: Result Comment: Canc elled via OM: Order cancelled - Patient discharged Performed By: #### L 500.2500, L100.0100 ####[facility] [address] [place], [address] eGFR Normal >60 [facility] Comment on above: Result Comment: Canc elled via OM: Order cancelled - Patient discharged Performed By: #### L 500.2500, L100.0100 ####[facility] [address] [place], [address] GAP Normal 5-15 [facility] Comment on above: Result Comment: Canc elled via OM: Order cancelled - Patient discharged Performed By: #### L 500.2500, L100.0100 ####[facility] [address] [place], [address] GLU Normal 70-99 [facility] Comment on above: Result Comment: Canc elled via OM: Order cancelled - Patient discharged Performed By: #### L 500.2500, L100.0100 ####[facility] [address] [place], [address] Potassium Normal 3.3-5.1 [facility] Comment on above: Result Comment: Canc elled via OM: Order cancelled - Patient discharged Performed By: #### L 500.2500, L100.0100 ####[facility] [address] [place], [address] Basic Metabolic Profile (BMP) Normal 133-145 [facility] Comment on above: Result Comment: Canc elled via OM: Order cancelled - Patient discharged Performed By: #### L 500.2500, L100.0100 ####[facility] [address] [place], [address] CBC W/Diff, Automatedon 05-0 -2024 Absolute Neut Normal 2.0-7.7 [facility] Comment on above: Result Comment: Canc elled via OM: Order cancelled - Patient discharged Performed By: #### L 500.2500, L100.0100 ####[facility] [address] [place], [address] HCT Normal 37-47 [facility] Comment on above: Result Comment: Canc elled via OM: Order cancelled - Patient discharged Performed By: #### L 500.2500, L100.0100 ####[facility] [address] [place], [address] HGB Normal 12.0-15.0 [facility] Comment on above: Result Comment: Canc elled via OM: Order cancelled - Patient discharged Performed By: #### L 500.2500, L100.0100 ####[facility] [address] [place], [address] MCH Normal 27.0-32.0 [facility] Comment on above: Result Comment: Canc elled via OM: Order cancelled - Patient discharged Performed By: #### L 500.2500, L100.0100 ####[facility] [address] [place], [address] MCHC Normal 32-36 [facility] Comment on above: Result Comment: Canc elled via OM: Order cancelled - Patient discharged Performed By: #### L 500.2500, L100.0100 ####[facility] [address] [place], [address] MCV Normal 81-99 [facility] Comment on above: Result Comment: Canc elled via OM: Order cancelled - Patient discharged Performed By: #### L 500.2500, L100.0100 ####[facility] [address] [place], [address] NEUT% Normal 47-70 [facility] Comment on above: Result Comment: Canc elled via OM: Order cancelled - Patient discharged Performed By: #### L 500.2500, L100.0100 ####[facility] [address] [place], [address] PLT Normal 150-450 [facility] Comment on above: Result Comment: Canc elled via OM: Order cancelled - Patient discharged Performed By: #### L 500.2500, L100.0100 ####[facility] [address] [place], [address] RBC Normal 4.2-5.4 [facility] Comment on above: Result Comment: Canc elled via OM: Order cancelled - Patient discharged Performed By: #### L 500.2500, L100.0100 ####[facility] [address] [place], [address] RDW CV Normal 11.6-14.6 [facility] Comment on above: Result Comment: Canc elled via OM: Order cancelled - Patient discharged Performed By: #### L 500.2500, L100.0100 ####[facility] [address] [place], [address] RDW SD Normal 35.1-43.9 [facility] Comment on above: Result Comment: Canc elled via OM: Order cancelled - Patient discharged Performed By: #### L 500.2500, L100.0100 ####[facility] [address] [place], [address] WBC Normal 4.4-11.0 [facility] Comment on above: Result Comment: Canc elled via OM: Order cancelled - Patient discharged Performed By: #### L 500.2500, L100.0100 ####[facility] [address] [place], [address] Basic Metabolic Profile (BMP )on 03-27-2025 BUN Normal 4-19 [facility] Comment on above: Result Comment: Canc elled via OM: Order cancelled - Patient discharged Performed By: #### L 500.2500, L100.0100 ####[facility] [address] [place], [address] BUN/CRE Normal 10-20 [facility] Comment on above: Result Comment: Canc elled via OM: Order cancelled - Patient discharged Performed By: #### L 500.2500, L100.0100 ####[facility] [address] [place], [address] Calcium Normal 7.6-11.0 [facility] Comment on above: Result Comment: Canc elled via OM: Order cancelled - Patient discharged Performed By: #### L 500.2500, L100.0100 ####[facility] [address] [place], [address] CL Normal 98-108 [facility] Comment on above: Result Comment: Canc elled via OM: Order cancelled - Patient discharged Performed By: #### L 500.2500, L100.0100 ####[facility] [address] [place], [address] CO2 Normal 21.0-32.0 [facility] Comment on above: Result Comment: Canc elled via OM: Order cancelled - Patient discharged Performed By: #### L 500.2500, L100.0100 ####[facility] [address] [place], [address] CREAT,SERUM Normal 0.70-1.20 [facility] Comment on above: Result Comment: Canc elled via OM: Order cancelled - Patient discharged Performed By: #### L 500.2500, L100.0100 ####[facility] [address] [place], [address] eGFR Normal >60 [facility] Comment on above: Result Comment: Canc elled via OM: Order cancelled - Patient discharged Performed By: #### L 500.2500, L100.0100 ####[facility] [address] [place], [address] GAP Normal 5-15 [facility] Comment on above: Result Comment: Canc elled via OM: Order cancelled - Patient discharged Performed By: #### L 500.2500, L100.0100 ####[facility] [address] [place], [address] GLU Normal 70-99 [facility] Comment on above: Result Comment: Canc elled via OM: Order cancelled - Patient discharged Performed By: #### L 500.2500, L100.0100 ####[facility] [address] [place], [address] Potassium Normal 3.3-5.1 [facility] Comment on above: Result Comment: Canc elled via OM: Order cancelled - Patient discharged Performed By: #### L 500.2500, L100.0100 ####[facility] [address] [place], [address] Basic Metabolic Profile (BMP) Normal 133-145 [facility] Comment on above: Result Comment: Canc elled via OM: Order cancelled - Patient discharged Performed By: #### L 500.2500, L100.0100 ####[facility] [address] [place], [address] CBC W/Diff, Automatedon 05-0 Absolute Neut Normal 2.0-7.7 [facility] Comment on above: Result Comment: Canc elled via OM: Order cancelled - Patient discharged Performed By: #### L 500.2500, L100.0100 ####[facility] [address] [place], [address] HCT Normal 37-47 [facility] Comment on above: Result Comment: Canc elled via OM: Order cancelled - Patient discharged Performed By: #### L 500.2500, L100.0100 ####[facility] [address] [place], [address] HGB Normal 12.0-15.0 [facility] Comment on above: Result Comment: Canc elled via OM: Order cancelled - Patient discharged Performed By: #### L 500.2500, L100.0100 ####[facility] [address] [place], [address] MCH Normal 27.0-32.0 [facility] Comment on above: Result Comment: Canc elled via OM: Order cancelled - Patient discharged Performed By: #### L 500.2500, L100.0100 ####[facility] [address] [place], [address] MCHC Normal 32-36 [facility] Comment on above: Result Comment: Canc elled via OM: Order cancelled - Patient discharged Performed By: #### L 500.2500, L100.0100 ####[facility] [address] [place], [address] MCV Normal 81-99 [facility] Comment on above: Result Comment: Canc elled via OM: Order cancelled - Patient discharged Performed By: #### L 500.2500, L100.0100 ####[facility] [address] [place], [address] NEUT% Normal 47-70 [facility] Comment on above: Result Comment: Canc elled via OM: Order cancelled - Patient discharged Performed By: #### L 500.2500, L100.0100 ####[facility] [address] [place], [address] PLT Normal 150-450 [facility] Comment on above: Result Comment: Canc elled via OM: Order cancelled - Patient discharged Performed By: #### L 500.2500, L100.0100 ####[facility] [address] [place], [address] RBC Normal 4.2-5.4 [facility] Comment on above: Result Comment: Canc elled via OM: Order cancelled - Patient discharged Performed By: #### L 500.2500, L100.0100 ####[facility] [address] [place], [address] RDW CV Normal 11.6-14.6 [facility] Comment on above: Result Comment: Canc elled via OM: Order cancelled - Patient discharged Performed By: #### L 500.2500, L100.0100 ####[facility] [address] [place], [address] RDW SD Normal 35.1-43.9 [facility] Comment on above: Result Comment: Canc elled via OM: Order cancelled - Patient discharged Performed By: #### L 500.2500, L100.0100 ####[facility] [address] [place], [address] WBC Normal 4.4-11.0 [facility] Comment on above: Result Comment: Canc elled via OM: Order cancelled - Patient discharged Performed By: #### L 500.2500, L100.0100 ####[facility] [address] [place], [address] Basic Metabolic Profile (BMP )on 03-26-2025 BUN Normal 4-19 [facility] Comment on above: Result Comment: Canc elled via OM: Order cancelled - Patient discharged Performed By: #### L 100.0100, L500.2500 ####[facility] [address] [place], [address] BUN/CRE Normal 10-20 [facility] Comment on above: Result Comment: Canc elled via OM: Order cancelled - Patient discharged Performed By: #### L 100.0100, L500.2500 ####[facility] [address] [place], [address] Calcium Normal 7.6-11.0 [facility] Comment on above: Result Comment: Canc elled via OM: Order cancelled - Patient discharged Performed By: #### L 100.0100, L500.2500 ####[facility] [address] [place], [address] CL Normal 98-108 [facility] Comment on above: Result Comment: Canc elled via OM: Order cancelled - Patient discharged Performed By: #### L 100.0100, L500.2500 ####[facility] [address] [place], [address] CO2 Normal 21.0-32.0 [facility] Comment on above: Result Comment: Canc elled via OM: Order cancelled - Patient discharged Performed By: #### L 100.0100, L500.2500 ####[facility] [address] [place], [address] CREAT,SERUM Normal 0.70-1.20 [facility] Comment on above: Result Comment: Canc elled via OM: Order cancelled - Patient discharged Performed By: #### L 100.0100, L500.2500 ####[facility] [address] [place], [address] eGFR Normal >60 [facility] Comment on above: Result Comment: Canc elled via OM: Order cancelled - Patient discharged Performed By: #### L 100.0100, L500.2500 ####[facility] [address] [place], [address] GAP Normal 5-15 [facility] Comment on above: Result Comment: Canc elled via OM: Order cancelled - Patient discharged Performed By: #### L 100.0100, L500.2500 ####[facility] [address] [place], [address] GLU Normal 70-99 [facility] Comment on above: Result Comment: Canc elled via OM: Order cancelled - Patient discharged Performed By: #### L 100.0100, L500.2500 ####[facility] [address] [place], [address] Potassium Normal 3.3-5.1 [facility] Comment on above: Result Comment: Canc elled via OM: Order cancelled - Patient discharged Performed By: #### L 100.0100, L500.2500 ####[facility] [address] [place], [address] Basic Metabolic Profile (BMP) Normal 133-145 [facility] Comment on above: Result Comment: Canc elled via OM: Order cancelled - Patient discharged Performed By: #### L 100.0100, L500.2500 ####[facility] [address] [place], [address] CBC W/Diff, Automatedon 05-0 -2024 Absolute Neut Normal 2.0-7.7 [facility] Comment on above: Result Comment: Canc elled via OM: Order cancelled - Patient discharged Performed By: #### L 100.0100, L500.2500 ####[facility] [address] [place], [address] HCT Normal 37-47 [facility] Comment on above: Result Comment: Canc elled via OM: Order cancelled - Patient discharged Performed By: #### L 100.0100, L500.2500 ####[facility] [address] [place], [address] HGB Normal 12.0-15.0 [facility] Comment on above: Result Comment: Canc elled via OM: Order cancelled - Patient discharged Performed By: #### L 100.0100, L500.2500 ####[facility] [address] [place], [address] MCH Normal 27.0-32.0 [facility] Comment on above: Result Comment: Canc elled via OM: Order cancelled - Patient discharged Performed By: #### L 100.0100, L500.2500 ####[facility] [address] [place], [address] MCHC Normal 32-36 [facility] Comment on above: Result Comment: Canc elled via OM: Order cancelled - Patient discharged Performed By: #### L 100.0100, L500.2500 ####[facility] [address] [place], [address] MCV Normal 81-99 [facility] Comment on above: Result Comment: Canc elled via OM: Order cancelled - Patient discharged Performed By: #### L 100.0100, L500.2500 ####[facility] [address] [place], [address] NEUT% Normal 47-70 [facility] Comment on above: Result Comment: Canc elled via OM: Order cancelled - Patient discharged Performed By: #### L 100.0100, L500.2500 ####[facility] [address] [place], [address] PLT Normal 150-450 [facility] Comment on above: Result Comment: Canc elled via OM: Order cancelled - Patient discharged Performed By: #### L 100.0100, L500.2500 ####[facility] [address] [place], [address] RBC Normal 4.2-5.4 [facility] Comment on above: Result Comment: Canc elled via OM: Order cancelled - Patient discharged Performed By: #### L 100.0100, L500.2500 ####[facility] [address] [place], [address] RDW CV Normal 11.6-14.6 [facility] Comment on above: Result Comment: Canc elled via OM: Order cancelled - Patient discharged Performed By: #### L 100.0100, L500.2500 ####[facility] [address] [place], [address] RDW SD Normal 35.1-43.9 [facility] Comment on above: Result Comment: Canc elled via OM: Order cancelled - Patient discharged Performed By: #### L 100.0100, L500.2500 ####[facility] [address] [place], [address] WBC Normal 4.4-11.0 [facility] Comment on above: Result Comment: Canc elled via OM: Order cancelled - Patient discharged Performed By: #### L 100.0100, L500.2500 ####[facility] [address] [place], [address] Respiratory Cultureon 2024 RESPC Normal [facility] Comment on above: Performed By: #### M 100.2400, M100.2000 ####[facility] [address] [place], [address] 12 Lead EKGon 03-25-2025 12 Lead EKG Normal [facility] Absolute lymphocyte countOrd ered By: Jose Armando Wood on 03-25-2025 Lymphocytes Auto (Unsp spec) [#/Vol] 1.08 10*3/uL 0.83-4.51 [facility] Absolute neutrophil countOrd ered By: Jose Armando Wood on 03-25-2025 Neutrophils (Bld) [#/Vol] 22.6 10*3/uL High 2.0-7.7 [facility] Anion gap in Serum or Plasma Ordered By: Jose Armando Wood on 03-25-2025 Anion gap [Moles/Vol] 9 mmol/L 5-15 [facility] Automated lymphocyte count a s percentage of total leukocytesOrdered By: Jose Armando Wood on 03-25-2025 Lymphocytes/100 WBC Auto (Unsp spec) 4.2 % Low 19-41 [facility] BUN/creatinine ratioOrdered By: Jose Armando Wood on 03-25-2025 Urea nitrogen/Creatinine [Mass ratio] 41.3 mg/mg High 10-20 [facility] Basic Metabolic Profile (BMP )on 03-25-2025 BUN/CRE 41.3 RATIO High 10- [facility] Comment on above: Performed By: #### L 500.2500, L100.0100 ####[facility] [address] [place], [address] Calcium [Mass/Vol] 9.3 mg/dL Normal 7.6-11.0 [facility] Comment on above: Performed By: #### L 500.2500, L100.0100 ####[facility] [address] [place], [address] Chloride [Moles/Vol] 87 mmol/L Low 98-[address] [facility] Comment on above: Performed By: #### L 500.2500, L100.0100 ####[facility] [address] [place], [address] CO2 [Moles/Vol] 38.5 mmol/L High 21.0-32.0 [facility] Comment on above: Performed By: #### L 500.2500, L100.0100 ####[facility] [address] [place], [address] Creatinine [Mass/Vol] 0.80 mg/dL Normal 0.70-1.20 [facility] Comment on above: Performed By: #### L 500.2500, L100.0100 ####[facility] [address] [place], [address] ECRCL 74.62 ml/min Normal 50-250 [facility] Comment on above: Performed By: #### L 500.2500, L100.0100 ####[facility] [address] [place], [address] GAP 9 Normal 5-15 [facility] Comment on above: Performed By: #### L 500.2500, L100.0100 ####[facility] [address] [place], [address] GFR/1.73 sq M.predicted among non-blacks MDRD (S/P/Bld) [Vol rate/Area] 78 mL/min/{1.73_m2} Normal >60 [facility] Comment on above: Result Comment: mL/m in/1.73m2 CKD-EPI Creatinine Equation (2020) Performed By: #### L 500.2500, L100.0100 ####[facility] [address] [place], [address] Glucose [Mass/Vol] 188 mg/dL High 70-99 [facility] Comment on above: Performed By: #### L 500.2500, L100.0100 ####[facility] [address] [place], [address] Potassium [Moles/Vol] 4.9 mmol/L Normal 3.3-5.1 [facility] Comment on above: Performed By: #### L 500.2500, L100.0100 ####[facility] [address] [place], [address] Sodium [Moles/Vol] 135 mmol/L Normal 133-145 [facility] Comment on above: Performed By: #### L 500.2500, L100.0100 ####[facility] [address] [place], [address] Urea nitrogen [Mass/Vol] 33 mg/dL High 4-19 [facility] Comment on above: Performed By: #### L 500.2500, L100.0100 ####[facility] [address] [place], [address] BUN Normal 4-19 [facility] Comment on above: Result Comment: Canc elled via OM: Order cancelled - Patient discharged Performed By: #### L 500.2500, L100.0100 ####[facility] [address] [place], [address] BUN/CRE Normal 10-20 [facility] Comment on above: Result Comment: Canc elled via OM: Order cancelled - Patient discharged Performed By: #### L 500.2500, L100.0100 ####[facility] [address] [place], [address] Calcium Normal 7.6-11.0 [facility] Comment on above: Result Comment: Canc elled via OM: Order cancelled - Patient discharged Performed By: #### L 500.2500, L100.0100 ####[facility] [address] [place], [address] CL Normal 98-108 [facility] Comment on above: Result Comment: Canc elled via OM: Order cancelled - Patient discharged Performed By: #### L 500.2500, L100.0100 ####[facility] [address] [place], [address] CO2 Normal 21.0-32.0 [facility] Comment on above: Result Comment: Canc elled via OM: Order cancelled - Patient discharged Performed By: #### L 500.2500, L100.0100 ####[facility] [address] [place], [address] CREAT,SERUM Normal 0.70-1.20 [facility] Comment on above: Result Comment: Canc elled via OM: Order cancelled - Patient discharged Performed By: #### L 500.2500, L100.0100 ####[facility] [address] [place], [address] eGFR Normal >60 [facility] Comment on above: Result Comment: Canc elled via OM: Order cancelled - Patient discharged Performed By: #### L 500.2500, L100.0100 ####[facility] [address] [place], [address] GAP Normal 5-15 [facility] Comment on above: Result Comment: Canc elled via OM: Order cancelled - Patient discharged Performed By: #### L 500.2500, L100.0100 ####[facility] [address] [place], [address] GLU Normal 70-99 [facility] Comment on above: Result Comment: Canc elled via OM: Order cancelled - Patient discharged Performed By: #### L 500.2500, L100.0100 ####[facility] [address] [place], [address] Potassium Normal 3.3-5.1 [facility] Comment on above: Result Comment: Canc elled via OM: Order cancelled - Patient discharged Performed By: #### L 500.2500, L100.0100 ####[facility] [address] [place], [address] Basic Metabolic Profile (BMP) Normal 133-145 [facility] Comment on above: Result Comment: Canc elled via OM: Order cancelled - Patient discharged Performed By: #### L 500.2500, L100.0100 ####[facility] [address] [place], [address] Basophil percentageOrdered B y: Jose Armando Wood on 03-25-2025 Basophils/100 WBC (Bld) 0.2 % 0-1 [facility] Blood manual differential co mment interpretation (narrative result)Ordered By: Jose Armando Wood on 03-25-2025 Manual differential comment Eugene (Bld) [Interp] COMMENT [facility] Comment on above: NEUTROPHILIA.MONCYTO SIS. CBC W/Diff, Automatedon 04-3 SMEAR COMMENT COMMENT Normal [facility] Comment on above: Result Comment: NEUT ROPHILIA.MONCYTOSIS. Performed By: #### L 500.2500, L100.0100 ####[facility] [address] [place], [address] Absolute Neut Normal 2.0-7.7 [facility] Comment on above: Result Comment: Canc elled via OM: Order cancelled - Patient discharged Performed By: #### L 500.2500, L100.0100 ####[facility] [address] [place], [address] HCT Normal 37-47 [facility] Comment on above: Result Comment: Canc elled via OM: Order cancelled - Patient discharged Performed By: #### L 500.2500, L100.0100 ####[facility] [address] [place], [address] HGB Normal 12.0-15.0 [facility] Comment on above: Result Comment: Canc elled via OM: Order cancelled - Patient discharged Performed By: #### L 500.2500, L100.0100 ####[facility] [address] [place], [address] MCH Normal 27.0-32.0 [facility] Comment on above: Result Comment: Canc elled via OM: Order cancelled - Patient discharged Performed By: #### L 500.2500, L100.0100 ####[facility] [address] [place], [address] MCHC Normal 32-36 [facility] Comment on above: Result Comment: Canc elled via OM: Order cancelled - Patient discharged Performed By: #### L 500.2500, L100.0100 ####[facility] [address] [place], [address] MCV Normal 81-99 [facility] Comment on above: Result Comment: Canc elled via OM: Order cancelled - Patient discharged Performed By: #### L 500.2500, L100.0100 ####[facility] [address] [place], [address] NEUT% Normal 47-70 [facility] Comment on above: Result Comment: Canc elled via OM: Order cancelled - Patient discharged Performed By: #### L 500.2500, L100.0100 ####[facility] [address] [place], [address] PLT Normal 150-450 [facility] Comment on above: Result Comment: Canc elled via OM: Order cancelled - Patient discharged Performed By: #### L 500.2500, L100.0100 ####[facility] [address] [place], [address] RBC Normal 4.2-5.4 [facility] Comment on above: Result Comment: Canc elled via OM: Order cancelled - Patient discharged Performed By: #### L 500.2500, L100.0100 ####[facility] [address] [place], [address] RDW CV Normal 11.6-14.6 [facility] Comment on above: Result Comment: Canc elled via OM: Order cancelled - Patient discharged Performed By: #### L 500.2500, L100.0100 ####[facility] [address] [place], [address] RDW SD Normal 35.1-43.9 [facility] Comment on above: Result Comment: Canc elled via OM: Order cancelled - Patient discharged Performed By: #### L 500.2500, L100.0100 ####[facility] [address] [place], [address] WBC Normal 4.4-11.0 [facility] Comment on above: Result Comment: Canc elled via OM: Order cancelled - Patient discharged Performed By: #### L 500.2500, L100.0100 ####[facility] [address] [place], [address] Carbon dioxide, total [Moles /volume] in Central venous bloodOrdered By: Jose Armando Wood on 03-25-2025 CO2 [Moles/Vol] 38.5 mmol/L High 21.0-32.0 [facility] Chest 1 View (Portable)on Chest 1 View (Portable) Normal [facility] Chloride assayOrdered By: Tanner Wood on 03-25-2025 Chloride [Moles/Vol] 87 mmol/L Low 98-[address] [facility] Emergency Department Summary on 03-25-2025 Emergency Department Summary Normal [facility] Eosinophil percentageOrdered By: Jose Armando Wood on 03-25-2025 Eosinophils/100 WBC (Bld) 0.0 % 0-5 [facility] Erythrocyte distribution wid th ratioOrdered By: Jose Armando Wood on 03-25-2025 Erythrocyte distribution width (RBC) [Ratio] 14.1 % 11.6-14.6 [facility] Erythrocyte distribution wid th standard deviationOrdered By: Jose Armando Wood on 03-25-2025 Erythrocyte distribution width (RBC) [Ratio] 47.7 fl High 35.1-43.9 [facility] Glomerular filtration rate ( GFR) estimation/1.73 sq m using serum, plasma, or whole bOrdered By: Jose Armando Wood on 03-25-2025 GFR/1.73 sq M.predicted among non-blacks MDRD (S/P/Bld) [Vol rate/Area] 78 mL/min/{1.73_m2} >60 [facility] Comment on above: mL/min/1.73m2 CKD-EP I Creatinine Equation (2020) Hematocrit Auto (Bld) [Volum e fraction]Ordered By: Jose Armando Wood on 03-25-2025 Hematocrit (Bld) [Volume fraction] 41.5 % 37-47 [facility] Hemoglobin measurementOrdere d By: Jose Armando Wood on 03-25-2025 Hemoglobin (Bld) [Mass/Vol] 12.8 g/dL 12.0-15.0 [facility] Immature granulocytes/100 WB C Auto (Bld)Ordered By: Jose Armando Wood on 03-25-2025 Immature granulocytes/100 WBC (Bld) 0.800 % 0.0-0.9 [facility] Comment on above: IG% - Immature Granu locytes (promyelocytes, myelocytes and metamyelocytes) > 1% indicates that a LEFT SHIFT is Present. MCV (mean corpuscular volume ) determinationOrdered By: Jose Armando Wood 03-25-2025 MCV (RBC) [Entitic vol] 92.8 fL 81-99 [facility] Mean corpuscular hemoglobin (MCH) determinationOrdered By: Jose Armando Wood 03-25-2025 MCH (RBC) [Entitic mass] 28.6 pg 27.0-32.0 [facility] Mean corpuscular hemoglobin concentration (MCHC) determinationOrdered By: Jose Armando Wood 03-25-2025 MCHC (RBC) [Mass/Vol] 30.8 g/dL Low 32-36 [facility] Mean platelet volume determi nationOrdered By: Jose Armando Wood 03-25-2025 Platelet mean volume (Bld) [Entitic vol] 9.9 fL 6.2-12.0 [facility] Monocyte percentageOrdered B y: Jose Armando Wood on 03-25-2025 Monocytes/100 WBC (Bld) 7.8 % 0-10 [facility] Neutrophil percentageOrdered By: Jose Armando Le on 03-25-2025 Neutrophils/100 WBC (Bld) 87.0 % High 47-70 [facility] Nucleated red blood cell per centageOrdered By: Jose Armando Wood on 03-25-2025 Nucleated RBC/100 WBC (Bld) [Ratio] 0 % 0-5 [facility] Platelet countOrdered By: Tanner pricilla Wood on 03-25-2025 Platelets (Bld) [#/Vol] 414 10*3/uL 150-450 [facility] Potassium measurement (mass/ volume)Ordered By: Jose Armando Wood on 03-25-2025 Potassium (Unsp spec) [Mass/Vol] 4.9 mmol/L 3.3-5.1 [facility] RBC Auto (Bld) [#/Vol]Ordere d By: Jose Armando Wood on 03-25-2025 RBC (Bld) [#/Vol] 4.47 10*6/uL 4.2-5.4 [facility] Serum creatinine measurement (mass/volume)Ordered By: Jose Armando Wood on 03-25-2025 Creatinine [Mass/Vol] 0.80 mg/dL 0.70-1.20 [facility] Serum glucose measurement (m ass/volume)Ordered By: Jose Armando Wood on 03-25-2025 Glucose [Mass/Vol] 188 mg/dL High 70-99 [facility] Serum or plasma calcium diallo urement (mass/volume)Ordered By: Jose Armando Wood on 03-25-2025 Calcium [Mass/Vol] 9.3 mg/dL 7.6-11.0 [facility] Serum or plasma urea nitroge n measurement (mass/volume)Ordered By: Jose Armando Wood on 03-25-2025 Urea nitrogen [Mass/Vol] 33 mg/dL High 4-19 [facility] Sodium levelOrdered By: Jose Armando Wood on 03-25-2025 Sodium [Moles/Vol] 135 mmol/L 133-145 [facility] White blood cell (WBC) count Ordered By: Jose Armando Wood on 03-25-2025 WBC (Bld) [#/Vol] 25.9 10*3/uL High 4.4-11.0 [facility] Absolute lymphocyte countOrd ered By: Cindi Lizarraga on 03-24-2025 Lymphocytes Auto (Unsp spec) [#/Vol] 0.66 10*3/uL Low 0.83-4.51 [facility] Absolute neutrophil countOrd ered By: Cindi Francoiscarol on 03-24-2025 Neutrophils (Bld) [#/Vol] 16.2 10*3/uL High 2.0-7.7 [facility] Anion gap in Serum or Plasma Ordered By: Cindiana Lizarraga on 03-24-2025 Anion gap [Moles/Vol] 4 mmol/L Low 5-15 [facility] Automated lymphocyte count a s percentage of total leukocytesOrdered By: Cindi Francoiscarol on 03-24-2025 Lymphocytes/100 WBC Auto (Unsp spec) 3.6 % Low 19-41 [facility] BUN/creatinine ratioOrdered By: Cindiana Lizarraga on 03-24-2025 Urea nitrogen/Creatinine [Mass ratio] 43.1 mg/mg High 10-20 [facility] Basic Metabolic Profile (BMP )on 03-24-2025 BUN/CRE 43.1 RATIO High 10-20 [facility] Comment on above: Performed By: #### L 100.0100, L500.2500 ####[facility] [address] [place], [address] Calcium [Mass/Vol] 9.2 mg/dL Normal 7.6-11.0 [facility] Comment on above: Performed By: #### L 100.0100, L500.2500 ####[facility] [address] [place], [address] Chloride [Moles/Vol] 89 mmol/L Low 98-[address] [facility] Comment on above: Performed By: #### L 100.0100, L500.2500 ####[facility] [address] [place], [address] CO2 [Moles/Vol] 40.9 mmol/L High 21.0-32.0 [facility] Comment on above: Performed By: #### L 100.0100, L500.2500 ####[facility] [address] [place], [address] Creatinine [Mass/Vol] 0.74 mg/dL Normal 0.70-1.20 [facility] Comment on above: Performed By: #### L 100.0100, L500.2500 ####[facility] [address] [place], [address] ECRCL 77.65 ml/min Normal 50-250 [facility] Comment on above: Performed By: #### L 100.0100, L500.2500 ####[facility] [address] [place], [address] GAP 4 Low 5-15 [facility] Comment on above: Performed By: #### L 100.0100, L500.2500 ####[facility] [address] [place], [address] GFR/1.73 sq M.predicted among non-blacks MDRD (S/P/Bld) [Vol rate/Area] 87 mL/min/{1.73_m2} Normal >60 [facility] Comment on above: Result Comment: mL/m in/1.73m2 CKD-EPI Creatinine Equation (2020) Performed By: #### L 100.0100, L500.2500 ####[facility] [address] [place], [address] Glucose [Mass/Vol] 163 mg/dL High 70-99 [facility] Comment on above: Performed By: #### L 100.0100, L500.2500 ####[facility] [address] [place], [address] Potassium [Moles/Vol] 5.6 mmol/L High 3.3-5.1 [facility] Comment on above: Performed By: #### L 100.0100, L500.2500 ####[facility] [address] [place], [address] Sodium [Moles/Vol] 134 mmol/L Normal 133-145 [facility] Comment on above: Performed By: #### L 100.0100, L500.2500 ####[facility] [address] [place], [address] Urea nitrogen [Mass/Vol] 32 mg/dL High 4-19 [facility] Comment on above: Performed By: #### L 100.0100, L500.2500 ####[facility] [address] [place], [address] Basophil percentageOrdered B y: Cindi Lizarraga on 03-24-2025 Basophils/100 WBC (Bld) 0.2 % 0-1 [facility] CBC W/Diff, Automatedon 02-25 Absolute Lymph 0.66 X10 3/uL Low 0.83-4.51 [facility] Comment on above: Performed By: #### L 100.0100, L500.2500 ####[facility] [address] [place], [address] Absolute Neut 16.2 X10 3/uL High 2.0-7.7 [facility] Comment on above: Performed By: #### L 100.0100, L500.2500 ####[facility] [address] [place], [address] Basophils/100 WBC (Bld) 0.2 % Normal 0-1 [facility] Comment on above: Performed By: #### L 100.0100, L500.2500 ####[facility] [address] [place], [address] Eosinophils/100 WBC (Bld) 2.0 % Normal 0-5 [facility] Comment on above: Performed By: #### L 100.0100, L500.2500 ####[facility] [address] [place], [address] Erythrocyte distribution width (RBC) [Ratio] 14.0 % Normal 11.6-14.6 [facility] Comment on above: Performed By: #### L 100.0100, L500.2500 ####[facility] [address] [place], [address] Hematocrit (Bld) [Volume fraction] 40.5 % Normal 37-47 [facility] Comment on above: Performed By: #### L 100.0100, L500.2500 ####[facility] [address] [place], [address] Hemoglobin (Bld) [Mass/Vol] 12.3 g/dL Normal 12.0-15.0 [facility] Comment on above: Performed By: #### L 100.0100, L500.2500 ####[facility] [address] [place], [address] IG% 0.900 Normal 0.0-0.9 [facility] Comment on above: Result Comment: IG% - Immature Granulocytes (promyelocytes, myelocytes andmetamyelocytes) > 1% indicates that a LEFT SHIFT is Present. Performed By: #### L 100.0100, L500.2500 ####[facility] [address] [place], [address] Lymphocytes/100 WBC (Bld) 3.6 % Low 19-41 [facility] Comment on above: Performed By: #### L 100.0100, L500.2500 ####[facility] [address] [place], [address] MCH (RBC) [Entitic mass] 28.5 pg Normal 27.0-32.0 [facility] Comment on above: Performed By: #### L 100.0100, L500.2500 ####[facility] [address] [place], [address] MCHC (RBC) [Mass/Vol] 30.4 g/dL Low 32-36 [facility] Comment on above: Performed By: #### L 100.0100, L500.2500 ####[facility] [address] [place], [address] MCV (RBC) [Entitic vol] 93.8 fL Normal 81-99 [facility] Comment on above: Performed By: #### L 100.0100, L500.2500 ####[facility] [address] [place], [address] Monocytes/100 WBC (Bld) 3.8 % Normal 0-10 [facility] Comment on above: Performed By: #### L 100.0100, L500.2500 ####[facility] [address] [place], [address] Neutrophils/100 WBC (Bld) 89.5 % High 47-70 [facility] Comment on above: Performed By: #### L 100.0100, L500.2500 ####[facility] [address] [place], [address] Nucleated RBC (Bld) [#/Vol] 0 10*3/uL Normal 0-5 [facility] Comment on above: Performed By: #### L 100.0100, L500.2500 ####[facility] [address] [place], [address] Platelet mean volume (Bld) [Entitic vol] 9.7 fL Normal 6.2-12.0 [facility] Comment on above: Performed By: #### L 100.0100, L500.2500 ####[facility] [address] [place], [address] Platelets (Bld) [#/Vol] 362 10*3/uL Normal 150-450 [facility] Comment on above: Performed By: #### L 100.0100, L500.2500 ####[facility] [address] [place], [address] RBC (Bld) [#/Vol] 4.32 10*6/uL Normal 4.2-5.4 [facility] Comment on above: Performed By: #### L 100.0100, L500.2500 ####[facility] [address] [place], [address] RDW SD 48.5 fl High 35.1-43.9 [facility] Comment on above: Performed By: #### L 100.0100, L500.2500 ####[facility] [address] [place], [address] WBC (Bld) [#/Vol] 18.1 10*3/uL High 4.4-11.0 [facility] Comment on above: Performed By: #### L 100.0100, L500.2500 ####[facility] [address] [place], [address] Carbon dioxide, total [Moles /volume] in Central venous bloodOrdered By: Cindi Lizarraga on 03-24-2025 CO2 [Moles/Vol] 40.9 mmol/L High 21.0-32.0 [facility] Chloride assayOrdered By: Na na Zia on 03-24-2025 Chloride [Moles/Vol] 89 mmol/L Low 98-[address] [facility] Discharge Instructionon 02-25 Discharge Instruction Normal [facility] Eosinophil percentageOrdered By: Cindi Lizarraga on 03-24-2025 Eosinophils/100 WBC (Bld) 2.0 % 0-5 [facility] Erythrocyte distribution wid th (RBC) [Ratio]Ordered By: Cindi Lizarraga on 03-24-2025 Erythrocyte distribution width (RBC) [Entitic vol] 48.5 fL High 35.1-43.9 [facility] Erythrocyte distribution wid th ratioOrdered By: Cindi Lizarraga on 03-24-2025 Erythrocyte distribution width (RBC) [Ratio] 14.0 % 11.6-14.6 [facility] Erythrocyte distribution wid th standard deviationOrdered By: Cindi Lizarraga on 03-24-2025 Erythrocyte distribution width (RBC) [Ratio] 48.5 fl High 35.1-43.9 [facility] Estimation of creatinine junie aranceOrdered By: Cindi Lizarraga on 03-24-2025 Estimated Creatinine Clearance Calc 77.65 ml/min 50-250 [facility] GFR/1.73 sq M.predicted lisa g non-blacks MDRD (S/P/Bld) [Vol rate/Area]Ordered By: Cindi Lizarraga on 03-24-2025 Estimated GFR (MDRD) Non-Af Amer 87 >60 [facility] Comment on above: mL/min/1.73m2 CKD-EP I Creatinine Equation (2020) Glomerular filtration rate ( GFR) estimation/1.73 sq m using serum, plasma, or whole bOrdered By: Cindi Lizarraga on 03-24-2025 GFR/1.73 sq M.predicted among non-blacks MDRD (S/P/Bld) [Vol rate/Area] 87 mL/min/{1.73_m2} >60 [facility] Comment on above: mL/min/1.73m2 CKD-EP I Creatinine Equation (2020) Hematocrit Auto (Bld) [Volum e fraction]Ordered By: Cindi Lizarraga 03-24-2025 Hematocrit (Bld) [Volume fraction] 40.5 % 37-47 [facility] Hemoglobin measurementOrdere d By: Cindi Lizarraga 03-24-2025 Hemoglobin (Bld) [Mass/Vol] 12.3 g/dL 12.0-15.0 [facility] Immature granulocytes/100 WB C Auto (Bld)Ordered By: Cindi Lizarraga 03-24-2025 Immature granulocytes/100 WBC (Bld) 0.900 % 0.0-0.9 [facility] Comment on above: IG% - Immature Granu locytes (promyelocytes, myelocytes and metamyelocytes) > 1% indicates that a LEFT SHIFT is Present. Lymphocytes Auto (Unsp spec) [#/Vol]Ordered By: Cindi Lizarraga 03-24-2025 Lymphocytes (Bld) [#/Vol] 0.66 10*3/uL Low 0.83-4.51 [facility] Lymphocytes/100 WBC Auto (Un sp spec)Ordered By: Cindi Lizarraga on 03-24-2025 Lymphocytes/100 WBC (Bld) 3.6 % Low 19-41 [facility] MCV (mean corpuscular volume ) determinationOrdered By: Cindi Lizarraga on 03-24-2025 MCV (RBC) [Entitic vol] 93.8 fL 81-99 [facility] Mean corpuscular hemoglobin (MCH) determinationOrdered By: Cindi Lizarraga on 03-24-2025 MCH (RBC) [Entitic mass] 28.5 pg 27.0-32.0 [facility] Mean corpuscular hemoglobin concentration (MCHC) determinationOrdered By: Cindi Lizarraga on 03-24-2025 MCHC (RBC) [Mass/Vol] 30.4 g/dL Low 32-36 [facility] Mean platelet volume determi nationOrdered By: Cindi Lizarraga on 03-24-2025 Platelet mean volume (Bld) [Entitic vol] 9.7 fL 6.2-12.0 [facility] Monocyte percentageOrdered B y: Cindi Lizarraga on 03-24-2025 Monocytes/100 WBC (Bld) 3.8 % 0-10 [facility] Neutrophil percentageOrdered By: Cindi Lizarraga on 03-24-2025 Neutrophils/100 WBC (Bld) 89.5 % High 47-70 [facility] Nucleated red blood cell per centageOrdered By: Cindi Lizarraga on 03-24-2025 Nucleated RBC/100 WBC (Bld) [Ratio] 0 % 0-5 [facility] Platelet countOrdered By: Na antonette Lizarraga on 03-24-2025 Platelets (Bld) [#/Vol] 362 10*3/uL 150-450 [facility] Potassium (Unsp spec) [Mass/ Vol]Ordered By: Cindi Lizarraga on 03-24-2025 Potassium [Moles/Vol] 5.6 mmol/L High 3.3-5.1 [facility] Potassium measurement (mass/ volume)Ordered By: Cindi Lizarraga on 03-24-2025 Potassium (Unsp spec) [Mass/Vol] 5.6 mmol/L High 3.3-5.1 [facility] RBC Auto (Bld) [#/Vol]Ordere d By: Cindi Lizarraga on 03-24-2025 RBC (Bld) [#/Vol] 4.32 10*6/uL 4.2-5.4 [facility] Serum creatinine measurement (mass/volume)Ordered By: Cindi Lizarraga on 03-24-2025 Creatinine [Mass/Vol] 0.74 mg/dL 0.70-1.20 [facility] Serum glucose measurement (m ass/volume)Ordered By: Cindi Lizarraga on 03-24-2025 Glucose [Mass/Vol] 163 mg/dL High 70-99 [facility] Serum or plasma calcium diallo urement (mass/volume)Ordered By: Cindi Lizarraga on 03-24-2025 Calcium [Mass/Vol] 9.2 mg/dL 7.6-11.0 [facility] [facility] Serum or plasma urea nitroge n measurement (mass/volume)Ordered By: Cindi Lizarraga on 03-24-2025 Urea nitrogen [Mass/Vol] 32 mg/dL High 4-19 [facility] Sodium levelOrdered By: Cindi Lizarraga on 03-24-2025 Sodium [Moles/Vol] 134 mmol/L 133-145 [facility] White blood cell (WBC) count Ordered By: Cindi Lizarraga on 03-24-2025 WBC (Bld) [#/Vol] 18.1 10*3/uL High 4.4-11.0 [facility] Basic Metabolic Profile (BMP )on 03-23-2025 BUN/CRE 43.4 RATIO High 10-20 [facility] Comment on above: Performed By: #### L 500.2500 ####[facility] [address] [place], [address] Calcium [Mass/Vol] 9.3 mg/dL Normal 7.6-11.0 [facility] Comment on above: Performed By: #### L 500.2500 ####[facility] [address] [place], [address] Chloride [Moles/Vol] 91 mmol/L Low 98-[address] [facility] Comment on above: Performed By: #### L 500.2500 ####[facility] [address] [place], [address] CO2 [Moles/Vol] 42.1 mmol/L High 21.0-32.0 [facility] Comment on above: Performed By: #### L 500.2500 ####[facility] [address] [place], [address] Creatinine [Mass/Vol] 0.58 mg/dL Low 0.70-1.20 [facility] Comment on above: Performed By: #### L 500.2500 ####[facility] [address] [place], [address] ECRCL 77.57 ml/min Normal 50-250 [facility] Comment on above: Performed By: #### L 500.2500 ####[facility] [address] [place], [address] GAP 5 Normal 5-15 [facility] Comment on above: Performed By: #### L 500.2500 ####[facility] [address] [place], [address] GFR/1.73 sq M.predicted among non-blacks MDRD (S/P/Bld) [Vol rate/Area] 97 mL/min/{1.73_m2} Normal >60 [facility] Comment on above: Result Comment: mL/m in/1.73m2 CKD-EPI Creatinine Equation (2020) Performed By: #### L 500.2500 ####[facility] [address] [place], [address] Glucose [Mass/Vol] 165 mg/dL High 70-99 [facility] Comment on above: Performed By: #### L 500.2500 ####[facility] [address] [place], [address] Potassium [Moles/Vol] 4.9 mmol/L Normal 3.3-5.1 [facility] Comment on above: Performed By: #### L 500.2500 ####[facility] [address] [place], [address] Sodium [Moles/Vol] 138 mmol/L Normal 133-145 [facility] Comment on above: Performed By: #### L 500.2500 ####[facility] [address] [place], [address] Urea nitrogen [Mass/Vol] 25 mg/dL High 4-19 [facility] Comment on above: Performed By: #### L 500.2500 ####[facility] [address] [place], [address] Gram Stainon 03-23-2025 GS List Antibiotics [place] 48 Hours? zithromax Acceptable Specimen? Yes (<25 Epithelial cells per/lpf) Gram Stain 2+ Gram positive cocci 3+ White Blood Cells Rare Epithelial cells Normal [facility] Comment on above: Performed By: #### M 100.2400, M100.2000 ####[facility] [address] [place], [address] Gram stainOrdered By: Cindi juarez on 03-23-2025 Microscopic observation Gram stain Nom (Unsp spec) [facility] Microbial respiratory cultur eOrdered By: Cindi Lizarraga on 03-23-2025 Microorganism identified Cx Nom (Unsp spec) Proteus mirabilis Abnormal [facility] Phosphoruson 03-21-2025 Phosphate [Mass/Vol] 2.8 mg/dL Normal 2.7-4.[address] [facility] Comment on above: Performed By: #### L 501.2300 ####[facility] [address] [place], [address] Serum phosphorus measurement Ordered By: Orlando Maldonado on 03-21-2025 Phosphorus Level 2.8 mg/dL 2.7-4.5 [facility] Bilirubin, totalOrdered By: Orlnado Maldonado on 03-20-2025 Bilirubin [Mass/Vol] 0.28 mg/dL 0.00-1.[address] [facility] CBC W/Diff, Automatedon 02-25 Absolute Lymph 0.47 X10 3/uL Low 0.83-4.51 [facility] Comment on above: Performed By: #### L 100.0100 ####[facility] [address] [place], [address] Absolute Neut 10.3 X10 3/uL High 2.0-7.7 [facility] Comment on above: Performed By: #### L 100.0100 ####[facility] [address] [place], [address] Basophils/100 WBC (Bld) 0.1 % Normal 0-1 [facility] Comment on above: Performed By: #### L 100.0100 ####[facility] [address] [place], [address] Eosinophils/100 WBC (Bld) 0.0 % Normal 0-5 [facility] Comment on above: Performed By: #### L 100.0100 ####[facility] [address] [place], [address] Erythrocyte distribution width (RBC) [Ratio] 13.5 % Normal 11.6-14.6 [facility] Comment on above: Performed By: #### L 100.0100 ####[facility] [address] [place], [address] Hematocrit (Bld) [Volume fraction] 36.2 % Low 37-47 [facility] Comment on above: Performed By: #### L 100.0100 ####[facility] [address] [place], [address] Hemoglobin (Bld) [Mass/Vol] 10.9 g/dL Low 12.0-15.0 [facility] Comment on above: Performed By: #### L 100.0100 ####[facility] [address] [place], [address] IG% 0.500 Normal 0.0-0.9 [facility] Comment on above: Result Comment: IG% - Immature Granulocytes (promyelocytes, myelocytes andmetamyelocytes) > 1% indicates that a LEFT SHIFT is Present. Performed By: #### L 100.0100 ####[facility] [address] [place], [address] Lymphocytes/100 WBC (Bld) 4.3 % Low 19-41 [facility] Comment on above: Performed By: #### L 100.0100 ####[facility] [address] [place], [address] MCH (RBC) [Entitic mass] 28.8 pg Normal 27.0-32.0 [facility] Comment on above: Performed By: #### L 100.0100 ####[facility] [address] [place], [address] MCHC (RBC) [Mass/Vol] 30.1 g/dL Low 32-36 [facility] Comment on above: Performed By: #### L 100.0100 ####[facility] [address] [place], [address] MCV (RBC) [Entitic vol] 95.8 fL Normal 81-99 [facility] Comment on above: Performed By: #### L 100.0100 ####[facility] [address] [place], [address] Monocytes/100 WBC (Bld) 1.2 % Normal 0-10 [facility] Comment on above: Performed By: #### L 100.0100 ####[facility] [address] [place], [address] Neutrophils/100 WBC (Bld) 93.9 % High 47-70 [facility] Comment on above: Performed By: #### L 100.0100 ####[facility] [address] [place], [address] Nucleated RBC (Bld) [#/Vol] 0 10*3/uL Normal 0-5 [facility] Comment on above: Performed By: #### L 100.0100 ####[facility] [address] [place], [address] Platelet mean volume (Bld) [Entitic vol] 9.8 fL Normal 6.2-12.0 [facility] Comment on above: Performed By: #### L 100.0100 ####[facility] [address] [place], [address] Platelets (Bld) [#/Vol] 315 10*3/uL Normal 150-450 [facility] Comment on above: Performed By: #### L 100.0100 ####[facility] [address] [place], [address] RBC (Bld) [#/Vol] 3.78 10*6/uL Low 4.2-5.4 [facility] Comment on above: Performed By: #### L 100.0100 ####[facility] [address] [place], [address] RDW SD 48.0 fl High 35.1-43.9 [facility] Comment on above: Performed By: #### L 100.0100 ####[facility] [address] [place], [address] WBC (Bld) [#/Vol] 11.0 10*3/uL Normal 4.4-11.0 [facility] Comment on above: Performed By: #### L 100.0100 ####[facility] [address] [place], [address] Calculated very low density lipoprotein (VLDL) cholesterol measurementOrdered By: Orlando Maldonado on 03-20-2025 Calculated very low density lipoprotein (VLDL) cholesterol measurement 10 mg/dL [facility] VLDL Cholesterol 10 mg/dL - [facility] Comprehensive Metabolic Prof ilon 03-20-2025 Albumin [Mass/Vol] 3.5 g/dL Normal 3.4-4.8 [facility] Comment on above: Performed By: #### L 503.7505, L501.2300, L500.4100, L500.4050 ####[facility] [address] [place], [address] Albumin/Globulin [Mass ratio] 1.0 {ratio} Normal 0.9-2.4 [facility] Comment on above: Performed By: #### L 503.7505, L501.2300, L500.4100, L500.4050 ####[facility] [address] [place], [address] ALK PHOS 65 U/L Normal 35-104 [facility] Comment on above: Performed By: #### L 503.7505, L501.2300, L500.4100, L500.4050 ####[facility] [address] [place], [address] ALT [Catalytic activity/Vol] 12 U/L Normal <=34 [facility] Comment on above: Performed By: #### L 503.7505, L501.2300, L500.4100, L500.4050 ####[facility] [address] [place], [address] AST [Catalytic activity/Vol] 13 U/L Normal <=31 [facility] Comment on above: Performed By: #### L 503.7505, L501.2300, L500.4100, L500.4050 ####[facility] [address] [place], [address] Bilirubin [Mass/Vol] 0.28 mg/dL Normal 0.00-1.[address] [facility] Comment on above: Performed By: #### L 503.7505, L501.2300, L500.4100, L500.4050 ####[facility] [address] [place], [address] BUN/CRE 24.8 RATIO High 10-20 [facility] Comment on above: Performed By: #### L 503.7505, L501.2300, L500.4100, L500.4050 ####[facility] [address] [place], [address] Calcium [Mass/Vol] 9.1 mg/dL Normal 7.6-11.0 [facility] Comment on above: Performed By: #### L 503.7505, L501.2300, L500.4100, L500.4050 ####[facility] [address] [place], [address] Chloride [Moles/Vol] 89 mmol/L Low 98-[address] [facility] Comment on above: Performed By: #### L 503.7505, L501.2300, L500.4100, L500.4050 ####[facility] [address] [place], [address] CO2 [Moles/Vol] 41.8 mmol/L High 21.0-32.0 [facility] Comment on above: Performed By: #### L 503.7505, L501.2300, L500.4100, L500.4050 ####[facility] [address] [place], [address] Creatinine [Mass/Vol] 0.59 mg/dL Low 0.70-1.20 [facility] Comment on above: Performed By: #### L 503.7505, L501.2300, L500.4100, L500.4050 ####[facility] [address] [place], [address] ECRCL 77.16 ml/min Normal 50-250 [facility] Comment on above: Performed By: #### L 503.7505, L501.2300, L500.4100, L500.4050 ####[facility] [address] [place], [address] GAP 8 Normal 5-15 [facility] Comment on above: Performed By: #### L 503.7505, L501.2300, L500.4100, L500.4050 ####[facility] [address] [place], [address] GFR/1.73 sq M.predicted among non-blacks MDRD (S/P/Bld) [Vol rate/Area] 96 mL/min/{1.73_m2} Normal >60 [facility] Comment on above: Result Comment: mL/m in/1.73m2 CKD-EPI Creatinine Equation (2020) Performed By: #### L 503.7505, L501.2300, L500.4100, L500.4050 ####[facility] [address] [place], [address] Globulin (S) [Mass/Vol] 3.3 g/dL Normal 2.2-4.2 [facility] Comment on above: Performed By: #### L 503.7505, L501.2300, L500.4100, L500.4050 ####[facility] [address] [place], [address] Glucose [Mass/Vol] 163 mg/dL High 70-99 [facility] Comment on above: Performed By: #### L 503.7505, L501.2300, L500.4100, L500.4050 ####[facility] [address] [place], [address] Potassium [Moles/Vol] 4.6 mmol/L Normal 3.3-5.1 [facility] Comment on above: Performed By: #### L 503.7505, L501.2300, L500.4100, L500.4050 ####[facility] [address] [place], [address] Sodium [Moles/Vol] 139 mmol/L Normal 133-145 [facility] Comment on above: Performed By: #### L 503.7505, L501.2300, L500.4100, L500.4050 ####[facility] [address] [place], [address] T PROT 6.8 g/dL Normal 5.9-8.4 [facility] Comment on above: Performed By: #### L 503.7505, L501.2300, L500.4100, L500.4050 ####[facility] [address] [place], [address] Urea nitrogen [Mass/Vol] 15 mg/dL Normal 4-19 [facility] Comment on above: Performed By: #### L 503.7505, L501.2300, L500.4100, L500.4050 ####[facility] [address] [place], [address] Echocardiogram study reportO rdered By: Chandni Courtney on 03-20-2025 Study report [facility] [address] [place] [address] Echo Complete W/ Contrast 03/20/25 0914 MR#: [id number] Acct: [id number] Name: PIPER CLARK Rep #:[id number] 1 : 1955 69 From: Chandni Courtney MD Attending Dr: Dr. Chai Rider DO Status: ADM IN Ordering Dr: Orlando Bolden DO Date: 03/19/25 Location: U Sex: F C Admitted: 03/19/25 Reason For Study Reason For Study: CHF Procedure This was a 2D Doppler, Color Flow transthoracic echocardiogram. The study was technically difficult. Exam performed portable in patient room. Left Ventricle Normal size and thickness. The LV systolic function is normal. EF is 65 %. Unable to assess diastolic dysfunction due to arrhythmia. Right Ventricle Normal right ventricle. Atria The left and right atria are normal. Mitral Valve There is Mild focal posterior mitral annular calcification. Tricuspid Valve Trivial tricuspid valve insufficiency. Right ventricular systolic pressure estimated to be 50 mmHg. Aortic Valve There is no aortic stenosis. No aortic valve insufficiency. Pulmonic Valve The pulmonic valve is not well visualized. Great Vessels Normal sized aortic root. Pericardium/Pleural Small (<1.0 cm) pericardial effusion. Medication Diluted definity 2ml given slow IV push to enhance endocardial definition. MMode/2D Measurements & Calculations LVIDd: 4.5 cm IVSd: 0.85 cm Ao root diam: 3.2 cm LVIDs: 2.9 cm LVPWd: 1.0 cm RVDd: 3.1 cm FS: 34.9 % LAV(MOD-bp): 31.0 ml LVAd ap4: 27.5 cm2 SV(MOD-sp4): 57.9 ml LAV(MOD-bp) Indexed: 14.7 ml/m2 LVLd ap4: 7.3 cm SI(MOD-sp4): 27.5 ml/m2 LAV(MOD-sp2): 29.6 ml EDV(MOD-sp4): 86.2 ml LAV(MOD-sp4): 32.2 ml EDV(sp4-el): 88.7 ml LVAs ap4: 14.5 cm2 LVLs ap4: 6.0 cm ESV(MOD-sp4): 28.3 ml ESV(sp4-el): 29.6 ml EF(MOD-sp4): 67.2 % EF(sp4-el): 66.7 % SV(sp4-el): 59.1 ml LA A4 area: 14.2 cm2 LA dimension(2D): 3.3 cm RA A4 area: 13.8 cm2 TAPSE: 2.0 cm Doppler Measurements & Calculations MV E max lisa: 95.0 cm/sec Ao V2 max: 161.4 cm/sec LV V1 max: 135.0 cm/sec Ao max P.5 mmHg LV V1 max P.3 mmHg PA V2 max: 92.8 cm/sec TR max lisa: 297.5 cm/sec TR max P.4 mmHg ECHO/Echo Complete W/ Contrast Interpretation Summary The study was technically difficult. The LV systolic function is normal. EF is 65 %. There is Mild focal posterior mitral annular calcification. Right ventricular systolic pressure estimated to be 50 mmHg. Small (<1.0 cm) pericardial effusion. Ordering Physician: Orlando Bolden Referring Physician: GENIA CHAPPELL Performed By: Katelyn Barakat RDCS 03/20/255 Date _ Chandni Courtney MD CC: Dr. Genia Chappell MD; Dr. Orlando Bolden DO; Dr. Chai Rider DO; Dr.Remus Magdy DO ~ Date Dictated: 03/20/25913 Date Transcribed: 03/20/251054 Medical Fee Clerk: Signed [facility] Work Phone: Folates,Serum (Folic Acid)on 03-20-2025 FOLATES,SERUM 8.88 ng/mL Normal 4.60-34.80 [facility] Comment on above: Result Comment: Hemo lysis, Results will be affected, Requires Recollection. Performed By: #### L 501.5200, L506.0200, L501.9520, L503.0106 ####[facility] [address] [place], [place], [address] Hemoglobin A1con 03-20-2025 HbA1c (Bld) [Mass fraction] 5.5 % Normal <=5.6 [facility] Comment on above: Result Comment: Norm al < 5.7 % Prediabetic 5.7 - 6.4 % Diabetic >or= 6.5 % Please note range changes. Performed By: #### L 501.9985 ####[facility] [address] [place], [address] L499.0043on 03-20-2025 Trop T High Sen Normal <=14 [facility] Comment on above: Result Comment: NURS E ALEX SAID TO CANCEL Performed By: #### L 499.0043 ####[facility] [address] [place], [address] L503.7505on 03-20-2025 Natriuretic peptide B (Bld) [Mass/Vol] 1547 pg/mL High <=900 [facility] Comment on above: Result Comment: Hear t Failure Unlikely: < 300 pg/mLHeart Failure Likely< 50 Years: > 450 pg/mL50-75 Years: > 900 pg/mL>75 Years: > 1800 pg/mL Performed By: #### L 503.7505, L501.2300, L500.4100, L500.4050 ####[facility] [address] [place], [address] LDL calc ser/plasOrdered By: Orlando Maldonado on 03-20-2025 Cholesterol in LDL [Mass/Vol] 82 mg/dL [facility] Comment on above: Onthvsacbv=931-967 m g/dL & Higher Qngd=680 mg/dL or greater LDL Cholesterol, Calculated 82 mg/dL [facility] Comment on above: Rwucfibitm=285-842 m g/dL & Higher Xsyv=009 mg/dL or greater Laboratory - Chemistry and C hemistry - challengeOrdered By: Orlando Maldonado on 03-20-2025 AST [Catalytic activity/Vol] 13 U/L <32 [facility] Lipid Profileon 03-20-2025 CHOL:HDL 2.58 Normal [facility] Comment on above: Performed By: #### L 503.7505, L501.2300, L500.4100, L500.4050 ####[facility] [address] [place], [address] Cholesterol [Mass/Vol] 150 mg/dL Normal <=200 [facility] Comment on above: Result Comment: Chol esterol level, Desirable <200 mg/dLBorderline high cholesterol 200-239 mg/dLHigh cholesterol >=240 mg/dLRecommendations of the NCEP Adult Treatment Panel for thefollowing risk-cutoff thresholds for the [place] Americanpulation. Performed By: #### L 503.7505, L501.2300, L500.4100, L500.4050 ####[facility] [address] [place], [address] Cholesterol in HDL [Mass/Vol] 58 mg/dL Normal [facility] Comment on above: Result Comment: Leslie onal Cholesterol Education Program (NCEP) guidelines:<40 mg/dL: Low HDL-cholesterol (major risk factor for CHD)>= 60 mg/dL: High HDL-cholesterol (negative risk factor forCHD)HDL-cholesterol is affected by a number of factors, e.g.smoking, exercise, hormones, sex and age. Performed By: #### L 503.7505, L501.2300, L500.4100, L500.4050 ####[facility] [address] [place], [address] Cholesterol in LDL [Mass/Vol] 82 mg/dL Normal [facility] Comment on above: Result Comment: Bord aantlf=403-340 mg/dL Higher Mrjg=090 mg/dL or greater Performed By: #### L 503.7505, L501.2300, L500.4100, L500.4050 ####[facility] [address] [place], [address] Cholesterol in VLDL [Mass/Vol] 10 mg/dL Normal 5-40 [facility] Comment on above: Performed By: #### L 503.7505, L501.2300, L500.4100, L500.4050 ####[facility] [address] [place], [address] Triglyceride [Mass/Vol] 51 mg/dL Normal [facility] Comment on above: Result Comment: The drugs N-Acetylcysteine and Metamizole may falselydepress this assay.Normal range: <150 mg/dLBorderline High: 150-199 mg/dLHigh: 200-499 mg/dLVery High: >500 mg/dL Performed By: #### L 503.7505, L501.2300, L500.4100, L500.4050 ####[facility] [address] [place], [address] Magnesiumon 03-20-2025 Magnesium [Mass/Vol] 1.7 mg/dL Normal 1.5-2.[address] [facility] Comment on above: Performed By: #### L 501.5200, L506.0200, L501.9520, L503.0106 ####[facility] [address] [place], [address] Natriuretic peptide.B prohor inessa N-Terminal [Mass/Vol]Ordered By: Orlando Maldonado on 03-20-2025 Natriuretic peptide B (Bld) [Mass/Vol] 1547 pg/mL High <900 [facility] Comment on above: Heart Failure Unlike ly: < 300 pg/mLHeart Failure Likely< 50 Years: > 450 pg/mL50-75 Years: > 900 pg/mL>75 Years: > 1800 pg/mL Natriuretic peptide.B prohor inessa N-Terminal [Mass/volume] in Serum or PlasmaOrdered By: Orlando Maldonado on 03-20-2025 Natriuretic peptide.B prohormone N-Terminal [Mass/Vol] 1547 pg/mL High <900 [facility] Comment on above: Heart Failure Unlike ly: < 300 pg/mLHeart Failure Likely< 50 Years: > 450 pg/mL50-75 Years: > 900 pg/mL>75 Years: > 1800 pg/mL Phosphoruson 03-20-2025 Phosphate [Mass/Vol] 2.9 mg/dL Normal 2.7-4.[address] [facility] Comment on above: Performed By: #### L 503.7505, L501.2300, L500.4100, L500.4050 ####[facility] [address] [place], [address] Screening total cholesterol/ high density lipoprotein (HDL) cholesterol ratioOrdered By: Orlando Maldonado on 03-20-2025 Cholesterol.total/Choles terol in HDL [Mass ratio] 2.58 {ratio} [facility] Serum globulin measurementOr dered By: Orlando Maldonado on 03-20-2025 Globulin (S) [Mass/Vol] 3.3 g/dL 2.2-4.2 [facility] Serum or plasma alanine garza otransferase (ALT) measurementOrdered By: Orlando Maldonado on 03-20-2025 ALT [Catalytic activity/Vol] 12 U/L <35 [facility] Serum or plasma albumin diallo urement (mass/volume)Ordered By: Orlando Maldonado on 03-20-2025 Albumin [Mass/Vol] 3.5 g/dL 3.4-4.8 [facility] Serum or plasma albumin/glob ulin mass ratioOrdered By: Orlando Maldonado on 03-20-2025 Albumin/Globulin [Mass ratio] 1.0 {ratio} 0.9-2.4 [facility] Serum or plasma alkaline pati sphatase measurementOrdered By: Orlando Maldonado on 03-20-2025 ALP [Catalytic activity/Vol] 65 U/L 35-104 [facility] Serum or plasma cholesterol in HDL measurement (mass/volume)Ordered By: Orlando Maldonado on 03-20-2025 Cholesterol in HDL [Mass/Vol] 58 mg/dL >40 [facility] Comment on above: National Cholesterol Education Program (NCEP) guidelines:<40 mg/dL: Low HDL-cholesterol (major risk factor for CHD)>= 60 mg/dL: High HDL-cholesterol (negative risk factor for CHD)HDL-cholesterol is affected by a number of factors, e.g. smoking, exercise, hormones, sex and age. Serum or plasma cholesterol measurement (mass/volume)Ordered By: Orlando Maldonado on 03-20-2025 Cholesterol [Mass/Vol] 150 mg/dL <201 [facility] Comment on above: Cholesterol level, D esirable <200 mg/dLBorderline high cholesterol 200-239 mg/dLHigh cholesterol >=240 mg/dLRecommendations of the NCEP Adult Treatment Panel for the following risk-cutoff thresholds for the [place] Greek population. Thyroid Stim Hormone (TSH)on 03-20-2025 TSH 0.905 uIU/mL Normal 0.300-4.200 [facility] Comment on above: Performed By: #### L 501.5200, L506.0200, L501.9520, L503.0106 ####[facility] [address] [place], [address] Total proteinOrdered By: Severo Maldonado on 03-20-2025 Protein [Mass/Vol] 6.8 g/dL 5.9-8.4 [facility] Triglycerides measurementOrd ered By: Orlando Maldonado on 03-20-2025 Triglyceride [Mass/Vol] 51 mg/dL <199 [facility] Comment on above: The drugs N-Acetylcy steine and Metamizole may falsely depress this assay. Normal range: <150 mg/dLBorderline High: 150-199 mg/dLHigh: 200-499 mg/dLVery High: >500 mg/dL Vitamin B12on 03-20-2025 Cobalamin (Vitamin B12) [Mass/Vol] 473 pg/mL Normal 180-914 [facility] Comment on above: Performed By: #### L 501.5200, L506.0200, L501.9520, L503.0106 ####[facility] [address] [place], [address] Basic Metabolic Profile (BMP )on 03-19-2025 BUN/CRE 16.7 RATIO Normal 10-20 [facility] Comment on above: Performed By: #### L 503.7505, L100.0100, L501.4021, L500.2500 ####[facility] [address] [place], [address] Calcium [Mass/Vol] 9.2 mg/dL Normal 7.6-11.0 [facility] Comment on above: Performed By: #### L 503.7505, L100.0100, L501.4021, L500.2500 ####[facility] [address] [place], [address] Chloride [Moles/Vol] 86 mmol/L Low 98-[address] [facility] Comment on above: Performed By: #### L 503.7505, L100.0100, L501.4021, L500.2500 ####[facility] [address] [place], [address] CO2 [Moles/Vol] 38.3 mmol/L High 21.0-32.0 [facility] Comment on above: Performed By: #### L 503.7505, L100.0100, L501.4021, L500.2500 ####[facility] [address] [place], [address] Creatinine [Mass/Vol] 0.80 mg/dL Normal 0.70-1.20 [facility] Comment on above: Performed By: #### L 503.7505, L100.0100, L501.4021, L500.2500 ####[facility] [address] [place], [address] ECRCL 77.85 ml/min Normal 50-250 [facility] Comment on above: Performed By: #### L 503.7505, L100.0100, L501.4021, L500.2500 ####[facility] [address] [place], [address] GAP 9 Normal 5-15 [facility] Comment on above: Performed By: #### L 503.7505, L100.0100, L501.4021, L500.2500 ####[facility] [address] [place], [address] GFR/1.73 sq M.predicted among non-blacks MDRD (S/P/Bld) [Vol rate/Area] 79 mL/min/{1.73_m2} Normal >60 [facility] Comment on above: Result Comment: mL/m in/1.73m2 CKD-EPI Creatinine Equation (2020) Performed By: #### L 503.7505, L100.0100, L501.4021, L500.2500 ####[facility] [address] [place], [address] Glucose [Mass/Vol] 232 mg/dL High 70-99 [facility] Comment on above: Performed By: #### L 503.7505, L100.0100, L501.4021, L500.2500 ####[facility] [address] [place], [address] Potassium [Moles/Vol] 4.3 mmol/L Normal 3.3-5.1 [facility] Comment on above: Performed By: #### L 503.7505, L100.0100, L501.4021, L500.2500 ####[facility] [address] [place], [address] Sodium [Moles/Vol] 133 mmol/L Normal 133-145 [facility] Comment on above: Performed By: #### L 503.7505, L100.0100, L501.4021, L500.2500 ####[facility] [address] [place], [address] Urea nitrogen [Mass/Vol] 13 mg/dL Normal 4-19 [facility] Comment on above: Performed By: #### L 503.7505, L100.0100, L501.4021, L500.2500 ####[facility] [address] [place], [address] CBC W/Diff, Automatedon 04-2 Absolute Lymph 1.91 X10 3/uL Normal 0.83-4.51 [facility] Comment on above: Performed By: #### L 503.7505, L100.0100, L501.4021, L500.2500 ####[facility] [address] [place], [address] Absolute Neut 10.2 X10 3/uL High 2.0-7.7 [facility] Comment on above: Performed By: #### L 503.7505, L100.0100, L501.4021, L500.2500 ####[facility] [address] [place], [address] Basophils/100 WBC (Bld) 0.4 % Normal 0-1 [facility] Comment on above: Performed By: #### L 503.7505, L100.0100, L501.4021, L500.2500 ####[facility] [address] [place], [address] Eosinophils/100 WBC (Bld) 2.2 % Normal 0-5 [facility] Comment on above: Performed By: #### L 503.7505, L100.0100, L501.4021, L500.2500 ####[facility] [address] [place], [address] Erythrocyte distribution width (RBC) [Ratio] 13.5 % Normal 11.6-14.6 [facility] Comment on above: Performed By: #### L 503.7505, L100.0100, L501.4021, L500.2500 ####[facility] [address] [place], [address] Hematocrit (Bld) [Volume fraction] 39.1 % Normal 37-47 [facility] Comment on above: Performed By: #### L 503.7505, L100.0100, L501.4021, L500.2500 ####[facility] [address] [place], [address] Hemoglobin (Bld) [Mass/Vol] 11.7 g/dL Low 12.0-15.0 [facility] Comment on above: Performed By: #### L 503.7505, L100.0100, L501.4021, L500.2500 ####[facility] [address] [place], [address] IG% 0.400 Normal 0.0-0.9 [facility] Comment on above: Result Comment: IG% - Immature Granulocytes (promyelocytes, myelocytes andmetamyelocytes) > 1% indicates that a LEFT SHIFT is Present. Performed By: #### L 503.7505, L100.0100, L501.4021, L500.2500 ####[facility] [address] [place], [address] Lymphocytes/100 WBC (Bld) 13.9 % Low 19-41 [facility] Comment on above: Performed By: #### L 503.7505, L100.0100, L501.4021, L500.2500 ####[facility] [address] [place], [address] MCH (RBC) [Entitic mass] 28.6 pg Normal 27.0-32.0 [facility] Comment on above: Performed By: #### L 503.7505, L100.0100, L501.4021, L500.2500 ####[facility] [address] [place], [address] MCHC (RBC) [Mass/Vol] 29.9 g/dL Low 32-36 [facility] Comment on above: Performed By: #### L 503.7505, L100.0100, L501.4021, L500.2500 ####[facility] [address] [place], [address] MCV (RBC) [Entitic vol] 95.6 fL Normal 81-99 [facility] Comment on above: Performed By: #### L 503.7505, L100.0100, L501.4021, L500.2500 ####[facility] [address] [place], [address] Monocytes/100 WBC (Bld) 9.2 % Normal 0-10 [facility] Comment on above: Performed By: #### L 503.7505, L100.0100, L501.4021, L500.2500 ####[facility] [address] [place], [address] Neutrophils/100 WBC (Bld) 73.9 % High 47-70 [facility] Comment on above: Performed By: #### L 503.7505, L100.0100, L501.4021, L500.2500 ####[facility] [address] [place], [address] Nucleated RBC (Bld) [#/Vol] 0 10*3/uL Normal 0-5 [facility] Comment on above: Performed By: #### L 503.7505, L100.0100, L501.4021, L500.2500 ####[facility] [address] [place], [address] Platelet mean volume (Bld) [Entitic vol] 10.0 fL Normal 6.2-12.0 [facility] Comment on above: Performed By: #### L 503.7505, L100.0100, L501.4021, L500.2500 ####[facility] [address] [place], [address] Platelets (Bld) [#/Vol] 373 10*3/uL Normal 150-450 [facility] Comment on above: Performed By: #### L 503.7505, L100.0100, L501.4021, L500.2500 ####[facility] [address] [place], [address] RBC (Bld) [#/Vol] 4.09 10*6/uL Low 4.2-5.4 [facility] Comment on above: Performed By: #### L 503.7505, L100.0100, L501.4021, L500.2500 ####[facility] [address] [place], [address] RDW SD 47.8 fl High 35.1-43.9 [facility] Comment on above: Performed By: #### L 503.7505, L100.0100, L501.4021, L500.2500 ####[facility] [address] [place], [address] WBC (Bld) [#/Vol] 13.7 10*3/uL High 4.4-11.0 [facility] Comment on above: Performed By: #### L 503.7505, L100.0100, L501.4021, L500.2500 ####[facility] [address] [place], [address] Chest 1 View (Portable)on Chest 1 View (Portable) Normal [facility] Echo Complete W/ Contraston 03-19-2025 Echo Complete W/ Contrast Normal [facility] Emergency Department Summary on 03-19-2025 Emergency Department Summary Normal [facility] Folate [Moles/Vol]Ordered By : Orlando Maldonado on 03-19-2025 Serum Folate 8.88 ng/mL 4.60-34.80 [facility] Comment on above: Hemolysis, Results w ill be affected, Requires Recollection. Folate [Moles/volume] in Ser um or PlasmaOrdered By: Orlando Maldonado on 03-19-2025 Folate [Moles/Vol] 8.88 ng/mL 4.60-34.80 [facility] Comment on above: Hemolysis, Results w ill be affected, Requires Recollection. H AND P Exam - Hospitaliston 03-19-2025 H&P Exam - Hospitalist Normal [facility] Hemoglobin A1c percentageOrd ered By: Orlando Maldonado on 03-19-2025 HbA1c (Bld) [Mass fraction] 5.5 % <5.7 [facility] Comment on above: Normal < 5.7 % Predi abetic 5.7 - 6.4 % Diabetic >or= 6.5 % Please note range changes. L499.0042on 03-19-2025 Trop T High Sen 10 ng/L Normal <=14 [facility] Comment on above: Order Comment: ER DI D NOT GET SECOND TROP BEFORE LEAVING TO FLOOR. Performed By: #### L 499.0042 ####[facility] [address] [place], [address] L501.4021on 03-19-2025 Trop T High Sen 19 ng/L High <=14 [facility] Comment on above: Performed By: #### L 503.7505, L100.0100, L501.4021, L500.2500 ####[facility] [address] [place], [address] L503.7505on 03-19-2025 Natriuretic peptide B (Bld) [Mass/Vol] 1003 pg/mL High <=900 [facility] Comment on above: Result Comment: Hear t Failure Unlikely: < 300 pg/mLHeart Failure Likely< 50 Years: > 450 pg/mL50-75 Years: > 900 pg/mL>75 Years: > 1800 pg/mL Performed By: #### L 503.7505, L100.0100, L501.4021, L500.2500 ####[facility] [address] [place], [address] Magnesium (Unsp spec) [Mass/ Vol]Ordered By: Orlando Maldonado on 03-19-2025 Magnesium [Mass/Vol] 1.7 mg/dL 1.5-2.[address] [facility] Magnesium measurement (mass/ volume)Ordered By: Orlando Maldonado on 03-19-2025 Magnesium (Unsp spec) [Mass/Vol] 1.7 mg/dL 1.5-2.2 [facility] TSH DL <= 0.005 mIU/L QnOrde red By: Orlando Maldonado on 03-19-2025 Thyroid Stimulating Hormone (TSH) 0.905 uIU/mL 0.300-4.200 [facility] TSH Qn 0.905 uIU/mL 0.300-4.200 [facility] Troponin T.cardiac High sens itivity method [Mass/Vol]Ordered By: Juan F Curran on 03-19-2025 Troponin T High Sensitivity 2 Hour 10 ng/L <14 [facility] Troponin T High Sensitivity 19 ng/L High <14 [facility] Troponin T.cardiac [Mass/vol ume] in Serum or Plasma by High sensitivity methodOrdered By: Juan F Curran on 03-19-2025 Troponin T.cardiac High sensitivity method [Mass/Vol] 10 ng/L <14 [facility] Troponin T.cardiac High sensitivity method [Mass/Vol] 19 ng/L High <14 [facility] Vitamin B12 ser/plasOrdered By: Orlando Maldonado on 03-19-2025 Cobalamin (Vitamin B12) [Mass/Vol] 473 pg/mL 180-914 [facility] Anion gap in Serum or Plasma Ordered By: Becca Dillard on 03-18-2025 Anion gap [Moles/Vol] 8 mmol/L - [facility] BUN/creatinine ratioOrdered By: Becca Dillard on 03-18-2025 Urea nitrogen/Creatinine [Mass ratio] 16.6 mg/mg 09-14 [facility] Basic Metabolic Profile (BMP )on 03-18-2025 BUN/CRE 16.6 RATIO Normal 09-14 [facility] Comment on above: Performed By: #### L 503.7505, L500.4100, L500.3400, L500.2500 ####[facility] [address] [place], [address] Calcium [Mass/Vol] 9.4 mg/dL Normal 7.6-11.0 [facility] Comment on above: Performed By: #### L 503.7505, L500.4100, L500.3400, L500.2500 ####[facility] [address] [place], [address] Chloride [Moles/Vol] 91 mmol/L Low 98-[address] [facility] Comment on above: Performed By: #### L 503.7505, L500.4100, L500.3400, L500.2500 ####[facility] [address] [place], [address] CO2 [Moles/Vol] 37.8 mmol/L High 21.0-32.0 [facility] Comment on above: Performed By: #### L 503.7505, L500.4100, L500.3400, L500.2500 ####[facility] [address] [place], [address] Creatinine [Mass/Vol] 0.68 mg/dL Low 0.70-1.20 [facility] Comment on above: Performed By: #### L 503.7505, L500.4100, L500.3400, L500.2500 ####[facility] [address] [place], [address] GAP 8 Normal 5-15 [facility] Comment on above: Performed By: #### L 503.7505, L500.4100, L500.3400, L500.2500 ####[facility] [address] [place], [address] GFR/1.73 sq M.predicted among non-blacks MDRD (S/P/Bld) [Vol rate/Area] 93 mL/min/{1.73_m2} Normal >60 [facility] Comment on above: Result Comment: mL/m in/1.73m2 CKD-EPI Creatinine Equation (2020) Performed By: #### L 503.7505, L500.4100, L500.3400, L500.2500 ####[facility] [address] [place], [address] Glucose [Mass/Vol] 147 mg/dL High 70-99 [facility] Comment on above: Performed By: #### L 503.7505, L500.4100, L500.3400, L500.2500 ####[facility] [address] [place], [address] Potassium [Moles/Vol] 5.1 mmol/L Normal 3.3-5.1 [facility] Comment on above: Performed By: #### L 503.7505, L500.4100, L500.3400, L500.2500 ####[facility] [address] [place], [address] Sodium [Moles/Vol] 137 mmol/L Normal 133-145 [facility] Comment on above: Performed By: #### L 503.7505, L500.4100, L500.3400, L500.2500 ####[facility] [address] [place], [address] Urea nitrogen [Mass/Vol] 11 mg/dL Normal 4-19 [facility] Comment on above: Performed By: #### L 503.7505, L500.4100, L500.3400, L500.2500 ####[facility] [address] [place], [address] Bilirubin directOrdered By: Becca Dillard on 03-18-2025 Bilirubin.direct [Mass/Vol] 0.17 mg/dL 0.00-0.30 [facility] Bilirubin, totalOrdered By: Becca Dillard on 03-18-2025 Bilirubin [Mass/Vol] 0.33 mg/dL 0.00-1.[address] [facility] Calculated very low density lipoprotein (VLDL) cholesterol measurementOrdered By: Becca Dillard on 03-18-2025 Calculated very low density lipoprotein (VLDL) cholesterol measurement 13 mg/dL 5-40 [facility] VLDL Cholesterol 13 mg/dL 5-40 [facility] Carbon dioxide, total [Moles /volume] in Central venous bloodOrdered By: Becca Dillard on 03-18-2025 CO2 [Moles/Vol] 37.8 mmol/L High 21.0-32.0 [facility] Chloride assayOrdered By: Sergio Dillard on 03-18-2025 Chloride [Moles/Vol] 91 mmol/L Low 98-[address] [facility] GFR/1.73 sq M.predicted lisa g non-blacks MDRD (S/P/Bld) [Vol rate/Area]Ordered By: Becca Dillard on 03-18-2025 Estimated GFR (MDRD) Non-Af Amer 93 >60 [facility] Comment on above: mL/min/1.73m2 CKD-EP I Creatinine Equation (2020) Glomerular filtration rate ( GFR) estimation/1.73 sq m using serum, plasma, or whole bOrdered By: Becca Dillard on 03-18-2025 GFR/1.73 sq M.predicted among non-blacks MDRD (S/P/Bld) [Vol rate/Area] 93 mL/min/{1.73_m2} >60 [facility] Comment on above: mL/min/1.73m2 CKD-EP I Creatinine Equation (2020) L503.7505on 03-18-2025 Natriuretic peptide B (Bld) [Mass/Vol] 1006 pg/mL High <=900 [facility] Comment on above: Result Comment: Hear t Failure Unlikely: < 300 pg/mLHeart Failure Likely< 50 Years: > 450 pg/mL50-75 Years: > 900 pg/mL>75 Years: > 1800 pg/mL Performed By: #### L 503.7505, L500.4100, L500.3400, L500.2500 ####[facility] [address] [place], [place], [address] LDL calc ser/plasOrdered By: Becca Dillard on 03-18-2025 Cholesterol in LDL [Mass/Vol] 89 mg/dL [facility] Comment on above: Gojzolivmw=541-784 m g/dL & Higher Nlds=737 mg/dL or greater LDL Cholesterol, Calculated 89 mg/dL [facility] Comment on above: Hjallredtb=179-590 m g/dL & Higher Gqsq=759 mg/dL or greater Laboratory - Chemistry and C hemistry - challengeOrdered By: Becca Dillard on 03-18-2025 AST [Catalytic activity/Vol] 15 U/L <32 [facility] Lipid Profileon 03-18-2025 CHOL:HDL 2.59 Normal [facility] Comment on above: Performed By: #### L 503.7505, L500.4100, L500.3400, L500.2500 ####[facility] [address] [place], [place], [address] Cholesterol [Mass/Vol] 167 mg/dL Normal <=200 [facility] Comment on above: Result Comment: Chol esterol level, Desirable <200 mg/dLBorderline high cholesterol 200-239 mg/dLHigh cholesterol >=240 mg/dLRecommendations of the NCEP Adult Treatment Panel for thefollowing risk-cutoff thresholds for the [place] Americanpulation. Performed By: #### L 503.7505, L500.4100, L500.3400, L500.2500 ####[facility] [address] [place], [address] Cholesterol in HDL [Mass/Vol] 65 mg/dL Normal [facility] Comment on above: Result Comment: Leslie onal Cholesterol Education Program (NCEP) guidelines:<40 mg/dL: Low HDL-cholesterol (major risk factor for CHD)>= 60 mg/dL: High HDL-cholesterol (negative risk factor forCHD)HDL-cholesterol is affected by a number of factors, e.g.smoking, exercise, hormones, sex and age. Performed By: #### L 503.7505, L500.4100, L500.3400, L500.2500 ####[facility] [address] [place], [address] Cholesterol in LDL [Mass/Vol] 89 mg/dL Normal [facility] Comment on above: Result Comment: Bord oqqani=360-215 mg/dL Higher Kexo=259 mg/dL or greater Performed By: #### L 503.7505, L500.4100, L500.3400, L500.2500 ####[facility] [address] [place], [address] Cholesterol in VLDL [Mass/Vol] 13 mg/dL Normal 5-40 [facility] Comment on above: Performed By: #### L 503.7505, L500.4100, L500.3400, L500.2500 ####[facility] [address] [place], [address] Triglyceride [Mass/Vol] 66 mg/dL Normal [facility] Comment on above: Result Comment: The drugs N-Acetylcysteine and Metamizole may falselydepress this assay.Normal range: <150 mg/dLBorderline High: 150-199 mg/dLHigh: 200-499 mg/dLVery High: >500 mg/dL Performed By: #### L 503.7505, L500.4100, L500.3400, L500.2500 ####[facility] [address] [place], [address] Liver Profileon 03-18-2025 Albumin [Mass/Vol] 3.7 g/dL Normal 3.4-4.8 [facility] Comment on above: Performed By: #### L 503.7505, L500.4100, L500.3400, L500.2500 ####[facility] [address] [place], [address] ALK PHOS 72 U/L Normal 35-104 [facility] Comment on above: Performed By: #### L 503.7505, L500.4100, L500.3400, L500.2500 ####[facility] [address] [place], [address] ALT [Catalytic activity/Vol] 8 U/L Normal <=34 [facility] Comment on above: Performed By: #### L 503.7505, L500.4100, L500.3400, L500.2500 ####[facility] [address] [place], [address] AST [Catalytic activity/Vol] 15 U/L Normal <=31 [facility] Comment on above: Performed By: #### L 503.7505, L500.4100, L500.3400, L500.2500 ####[facility] [address] [place], [address] Bilirubin [Mass/Vol] 0.33 mg/dL Normal 0.00-1.[address] [facility] Comment on above: Performed By: #### L 503.7505, L500.4100, L500.3400, L500.2500 ####[facility] [address] [place], [address] Bilirubin.direct [Mass/Vol] 0.17 mg/dL Normal 0.00-0.30 [facility] Comment on above: Performed By: #### L 503.7505, L500.4100, L500.3400, L500.2500 ####[facility] [address] [place], [address] Globulin (S) [Mass/Vol] 3.4 g/dL Normal 2.2-4.2 [facility] Comment on above: Performed By: #### L 503.7505, L500.4100, L500.3400, L500.2500 ####[facility] [address] [place], [address] T PROT 7.1 g/dL Normal 5.9-8.4 [facility] Comment on above: Performed By: #### L 503.7505, L500.4100, L500.3400, L500.2500 ####[facility] [address] [place], [address] Natriuretic peptide.B prohor inessa N-Terminal [Mass/Vol]Ordered By: Becca Dillard on 03-18-2025 Natriuretic peptide B (Bld) [Mass/Vol] 1006 pg/mL High <900 [facility] Comment on above: Heart Failure Unlike ly: < 300 pg/mLHeart Failure Likely< 50 Years: > 450 pg/mL50-75 Years: > 900 pg/mL>75 Years: > 1800 pg/mL Natriuretic peptide.B prohor inessa N-Terminal [Mass/volume] in Serum or PlasmaOrdered By: Becca Dillard on 03-18-2025 Natriuretic peptide.B prohormone N-Terminal [Mass/Vol] 1006 pg/mL High <900 [facility] [facility] Comment on above: Heart Failure Unlike ly: < 300 pg/mLHeart Failure Likely< 50 Years: > 450 pg/mL50-75 Years: > 900 pg/mL>75 Years: > 1800 pg/mL Potassium (Unsp spec) [Mass/ Vol]Ordered By: Becca Dillard on 03-18-2025 Potassium [Moles/Vol] 5.1 mmol/L 3.3-5.1 [facility] Potassium measurement (mass/ volume)Ordered By: Becca Dillard on 03-18-2025 Potassium (Unsp spec) [Mass/Vol] 5.1 mmol/L 3.3-5.1 [facility] Screening total cholesterol/ high density lipoprotein (HDL) cholesterol ratioOrdered By: Becca Dillard on 03-18-2025 Cholesterol.total/Choles terol in HDL [Mass ratio] 2.59 {ratio} [facility] Serum creatinine measurement (mass/volume)Ordered By: Becca Dillard on 03-18-2025 Creatinine [Mass/Vol] 0.68 mg/dL Low 0.70-1.20 [facility] Serum globulin measurementOr dered By: Becca Dillard on 03-18-2025 Globulin (S) [Mass/Vol] 3.4 g/dL 2.2-4.2 [facility] Serum glucose measurement (m ass/volume)Ordered By: Becca Dillard on 03-18-2025 Glucose [Mass/Vol] 147 mg/dL High 70-99 [facility] Serum or plasma alanine garza otransferase (ALT) measurementOrdered By: Becca Dillard on 03-18-2025 ALT [Catalytic activity/Vol] 8 U/L <35 [facility] Serum or plasma albumin diallo urement (mass/volume)Ordered By: Becca Dillard on 03-18-2025 Albumin [Mass/Vol] 3.7 g/dL 3.4-4.8 [facility] Serum or plasma alkaline pati sphatase measurementOrdered By: Becca Dillard on 03-18-2025 ALP [Catalytic activity/Vol] 72 U/L 35-104 [facility] Serum or plasma calcium diallo urement (mass/volume)Ordered By: Becca Dillard on 03-18-2025 Calcium [Mass/Vol] 9.4 mg/dL 7.6-11.0 [facility] Serum or plasma cholesterol in HDL measurement (mass/volume)Ordered By: Becca Dillard on 03-18-2025 Cholesterol in HDL [Mass/Vol] 65 mg/dL >40 [facility] Comment on above: National Cholesterol Education Program (NCEP) guidelines:<40 mg/dL: Low HDL-cholesterol (major risk factor for CHD)>= 60 mg/dL: High HDL-cholesterol (negative risk factor for CHD)HDL-cholesterol is affected by a number of factors, e.g. smoking, exercise, hormones, sex and age. Serum or plasma cholesterol measurement (mass/volume)Ordered By: Becca Dillard on 03-18-2025 Cholesterol [Mass/Vol] 167 mg/dL <201 [facility] Comment on above: Cholesterol level, D esirable <200 mg/dLBorderline high cholesterol 200-239 mg/dLHigh cholesterol >=240 mg/dLRecommendations of the NCEP Adult Treatment Panel for the following risk-cutoff thresholds for the [place] population. Serum or plasma urea nitroge n measurement (mass/volume)Ordered By: Becca Dillard on 03-18-2025 Urea nitrogen [Mass/Vol] 11 mg/dL 4-19 [facility] Sodium levelOrdered By: Faith Dillard on 03-18-2025 Sodium [Moles/Vol] 137 mmol/L 133-145 [facility] Total proteinOrdered By: Reynold Dillard on 03-18-2025 Protein [Mass/Vol] 7.1 g/dL 5.9-8.4 [facility] Triglycerides measurementOrd ered By: Becca Dillard on 03-18-2025 Triglyceride [Mass/Vol] 66 mg/dL <199 [facility] Comment on above: The drugs N-Acetylcy steine and Metamizole may falsely depress this assay. Normal range: <150 mg/dLBorderline High: 150-199 mg/dLHigh: 200-499 mg/dLVery High: >500 mg/dL Absolute lymphocyte countOrd ered By: Christy Perea on 02-05-2025 Lymphocytes Auto (Unsp spec) [#/Vol] 2.14 10*3/uL 0.83-4.51 [facility] Absolute neutrophil countOrd ered By: Christy Perea on 02-05-2025 Neutrophils (Bld) [#/Vol] 7.5 10*3/uL 2.0-7.7 [facility] Anion gap in Serum or Plasma Ordered By: Christy Perea on 02-05-2025 Anion gap [Moles/Vol] 8 mmol/L 5-15 [facility] Automated lymphocyte count a s percentage of total leukocytesOrdered By: Christy Perea on 02-05-2025 Lymphocytes/100 WBC Auto (Unsp spec) 19.2 % 19-41 [facility] BUN/creatinine ratioOrdered By: Christy Perea on 02-05-2025 Urea nitrogen/Creatinine [Mass ratio] 20.6 mg/mg High 10-20 [facility] Basophil percentageOrdered B y: Christy Perea on 02-05-2025 Basophils/100 WBC (Bld) 0.4 % 0-1 [facility] Bilirubin, totalOrdered By: Christy Perea on 02-05-2025 Bilirubin [Mass/Vol] 0.25 mg/dL 0.00-1.[address] [facility] CBC W/Diff, Automatedon 01-24 Absolute Lymph 2.14 X10 3/uL Normal 0.83-4.51 [facility] Comment on above: Performed By: #### L 500.4050, L501.6710, L501.9520, L101.9900, L100.0100 ####[facility] [address] [place], [address] Absolute Neut 7.5 X10 3/uL Normal 2.0-7.7 [facility] Comment on above: Performed By: #### L 500.4050, L501.6710, L501.9520, L101.9900, L100.0100 ####[facility] [address] [place], [address] Basophils/100 WBC (Bld) 0.4 % Normal 0-1 [facility] Comment on above: Performed By: #### L 500.4050, L501.6710, L501.9520, L101.9900, L100.0100 ####[facility] [address] [place], [address] Eosinophils/100 WBC (Bld) 2.2 % Normal 0-5 [facility] Comment on above: Performed By: #### L 500.4050, L501.6710, L501.9520, L101.9900, L100.0100 ####[facility] [address] [place], [address] Erythrocyte distribution width (RBC) [Ratio] 14.6 % Normal 11.6-14.6 [facility] Comment on above: Performed By: #### L 500.4050, L501.6710, L501.9520, L101.9900, L100.0100 ####[facility] [address] [place], [address] Hematocrit (Bld) [Volume fraction] 40.0 % Normal 37-47 [facility] Comment on above: Performed By: #### L 500.4050, L501.6710, L501.9520, L101.9900, L100.0100 ####[facility] [address] [place], [address] Hemoglobin (Bld) [Mass/Vol] 12.1 g/dL Normal 12.0-15.0 [facility] Comment on above: Performed By: #### L 500.4050, L501.6710, L501.9520, L101.9900, L100.0100 ####[facility] [address] [place], [address] IG% 0.400 Normal 0.0-0.9 [facility] Comment on above: Result Comment: IG% - Immature Granulocytes (promyelocytes, myelocytes andmetamyelocytes) > 1% indicates that a LEFT SHIFT is Present. Performed By: #### L 500.4050, L501.6710, L501.9520, L101.9900, L100.0100 ####[facility] [address] [place], [address] Lymphocytes/100 WBC (Bld) 19.2 % Normal 19-41 [facility] Comment on above: Performed By: #### L 500.4050, L501.6710, L501.9520, L101.9900, L100.0100 ####[facility] [address] [place], [address] MCH (RBC) [Entitic mass] 28.2 pg Normal 27.0-32.0 [facility] Comment on above: Performed By: #### L 500.4050, L501.6710, L501.9520, L101.9900, L100.0100 ####[facility] [address] [place], [address] MCHC (RBC) [Mass/Vol] 30.3 g/dL Low 32-36 [facility] Comment on above: Performed By: #### L 500.4050, L501.6710, L501.9520, L101.9900, L100.0100 ####[facility] [address] [place], [address] MCV (RBC) [Entitic vol] 93.2 fL Normal 81-99 [facility] Comment on above: Performed By: #### L 500.4050, L501.6710, L501.9520, L101.9900, L100.0100 ####[facility] [address] [place], [address] Monocytes/100 WBC (Bld) 10.7 % High 0-10 [facility] Comment on above: Performed By: #### L 500.4050, L501.6710, L501.9520, L101.9900, L100.0100 ####[facility] [address] [place], [address] Neutrophils/100 WBC (Bld) 67.1 % Normal 47-70 [facility] Comment on above: Performed By: #### L 500.4050, L501.6710, L501.9520, L101.9900, L100.0100 ####[facility] [address] [place], [address] Nucleated RBC (Bld) [#/Vol] 0 10*3/uL Normal 0-5 [facility] Comment on above: Performed By: #### L 500.4050, L501.6710, L501.9520, L101.9900, L100.0100 ####[facility] [address] [place], [address] Platelet mean volume (Bld) [Entitic vol] 10.1 fL Normal 6.2-12.0 [facility] Comment on above: Performed By: #### L 500.4050, L501.6710, L501.9520, L101.9900, L100.0100 ####[facility] [address] [place], [address] Platelets (Bld) [#/Vol] 310 10*3/uL Normal 150-450 [facility] Comment on above: Performed By: #### L 500.4050, L501.6710, L501.9520, L101.9900, L100.0100 ####[facility] [address] [place], [address] RBC (Bld) [#/Vol] 4.29 10*6/uL Normal 4.2-5.4 [facility] Comment on above: Performed By: #### L 500.4050, L501.6710, L501.9520, L101.9900, L100.0100 ####[facility] [address] [place], [address] RDW SD 50.0 fl High 35.1-43.9 [facility] Comment on above: Performed By: #### L 500.4050, L501.6710, L501.9520, L101.9900, L100.0100 ####[facility] [address] [place], [address] WBC (Bld) [#/Vol] 11.2 10*3/uL High 4.4-11.0 [facility] Comment on above: Performed By: #### L 500.4050, L501.6710, L501.9520, L101.9900, L100.0100 ####[facility] [address] [place], [address] CRPon 02-05-2025 C-REACTIVE PROT 6.40 mg/L High 0.0-3.0 [facility] Comment on above: Performed By: #### L 500.4050, L501.6710, L501.9520, L101.9900, L100.0100 ####[facility] [address] [place], [address] CRP [Mass/Vol]Ordered By: Carol Perea on 02-05-2025 C-Reactive Protein Extended Range 6.40 mg/L High 0.0-3.0 [facility] Carbon dioxide, total [Moles /volume] in Central venous bloodOrdered By: Christy Perea on 02-05-2025 CO2 [Moles/Vol] 32.3 mmol/L High 21.0-32.0 [facility] Chloride assayOrdered By: Carol Perea on 02-05-2025 Chloride [Moles/Vol] 98 mmol/L 98-[address] [facility] Comprehensive Metabolic Prof ilon 02-05-2025 Albumin [Mass/Vol] 4.0 g/dL Normal 3.4-4.8 [facility] Comment on above: Performed By: #### L 500.4050, L501.6710, L501.9520, L101.9900, L100.0100 ####[facility] [address] [place], [address] Albumin/Globulin [Mass ratio] 1.3 {ratio} Normal 0.9-2.4 [facility] Comment on above: Performed By: #### L 500.4050, L501.6710, L501.9520, L101.9900, L100.0100 ####[facility] [address] [place], [address] ALK PHOS 63 U/L Normal 35-104 [facility] Comment on above: Performed By: #### L 500.4050, L501.6710, L501.9520, L101.9900, L100.0100 ####[facility] [address] [place], [address] ALT [Catalytic activity/Vol] 12 U/L Normal <=34 [facility] Comment on above: Performed By: #### L 500.4050, L501.6710, L501.9520, L101.9900, L100.0100 ####[facility] [address] [place], [address] AST [Catalytic activity/Vol] 16 U/L Normal <=31 [facility] Comment on above: Performed By: #### L 500.4050, L501.6710, L501.9520, L101.9900, L100.0100 ####[facility] [address] [place], [address] Bilirubin [Mass/Vol] 0.25 mg/dL Normal 0.00-1.[address] [facility] Comment on above: Performed By: #### L 500.4050, L501.6710, L501.9520, L101.9900, L100.0100 ####[facility] [address] [place], [address] BUN/CRE 20.6 RATIO High 10-20 [facility] Comment on above: Performed By: #### L 500.4050, L501.6710, L501.9520, L101.9900, L100.0100 ####[facility] [address] [place], [address] Calcium [Mass/Vol] 9.8 mg/dL Normal 7.6-11.0 [facility] Comment on above: Performed By: #### L 500.4050, L501.6710, L501.9520, L101.9900, L100.0100 ####[facility] [address] [place], [address] Chloride [Moles/Vol] 98 mmol/L Normal 98-[address] [facility] Comment on above: Performed By: #### L 500.4050, L501.6710, L501.9520, L101.9900, L100.0100 ####[facility] [address] [place], [address] CO2 [Moles/Vol] 32.3 mmol/L High 21.0-32.0 [facility] Comment on above: Performed By: #### L 500.4050, L501.6710, L501.9520, L101.9900, L100.0100 ####[facility] [address] [place], [address] Creatinine [Mass/Vol] 0.69 mg/dL Low 0.70-1.20 [facility] Comment on above: Performed By: #### L 500.4050, L501.6710, L501.9520, L101.9900, L100.0100 ####[facility] [address] [place], [address] GAP 8 Normal 5-15 [facility] Comment on above: Performed By: #### L 500.4050, L501.6710, L501.9520, L101.9900, L100.0100 ####[facility] [address] [place], [address] GFR/1.73 sq M.predicted among non-blacks MDRD (S/P/Bld) [Vol rate/Area] 93 mL/min/{1.73_m2} Normal >60 [facility] Comment on above: Result Comment: mL/m in/1.73m2 CKD-EPI Creatinine Equation (2020) Performed By: #### L 500.4050, L501.6710, L501.9520, L101.9900, L100.0100 ####[facility] [address] [place], [address] Globulin (S) [Mass/Vol] 3.2 g/dL Normal 2.2-4.2 [facility] Comment on above: Performed By: #### L 500.4050, L501.6710, L501.9520, L101.9900, L100.0100 ####[facility] [address] [place], [address] Glucose [Mass/Vol] 98 mg/dL Normal 70-99 [facility] Comment on above: Performed By: #### L 500.4050, L501.6710, L501.9520, L101.9900, L100.0100 ####[facility] [address] [place], [address] Potassium [Moles/Vol] 4.4 mmol/L Normal 3.3-5.1 [facility] Comment on above: Performed By: #### L 500.4050, L501.6710, L501.9520, L101.9900, L100.0100 ####[facility] [address] [place], [address] Sodium [Moles/Vol] 139 mmol/L Normal 133-145 [facility] Comment on above: Performed By: #### L 500.4050, L501.6710, L501.9520, L101.9900, L100.0100 ####[facility] [address] [place], [address] T PROT 7.1 g/dL Normal 5.9-8.4 [facility] Comment on above: Performed By: #### L 500.4050, L501.6710, L501.9520, L101.9900, L100.0100 ####[facility] [address] [place], [place], [address] Urea nitrogen [Mass/Vol] 14 mg/dL Normal 4-19 [facility] Comment on above: Performed By: #### L 500.4050, L501.6710, L501.9520, L101.9900, L100.0100 ####[facility] [address] [place], [place], [address] Eosinophil percentageOrdered By: Christy Perea on 02-05-2025 Eosinophils/100 WBC (Bld) 2.2 % 0-5 [facility] Erythrocyte Sed Rateon 02-05 SED RATE 55 mm/hr High 0-30 [facility] Comment on above: Performed By: #### L 500.4050, L501.6710, L501.9520, L101.9900, L100.0100 ####[facility] [address] [place], [place], [address] Erythrocyte distribution wid th ratioOrdered By: Christy Perea on 02-05-2025 Erythrocyte distribution width (RBC) [Ratio] 14.6 % 11.6-14.6 [facility] Erythrocyte distribution wid th standard deviationOrdered By: Christy Perea on 02-05-2025 Erythrocyte distribution width (RBC) [Entitic vol] 50.0 fL High 35.1-43.9 [facility] Erythrocyte distribution width (RBC) [Ratio] 50.0 fl High 35.1-43.9 [facility] Erythrocyte sedimentation ra teOrdered By: Christy Perea on 02-05-2025 ESR (Bld) [Velocity] 55 mm/h High 0-[address] [facility] GFR/1.73 sq M.predicted lisa g non-blacks MDRD (S/P/Bld) [Vol rate/Area]Ordered By: Christy Perea on 02-05-2025 Estimated GFR (MDRD) Non-Af Amer 93 >60 [facility] Comment on above: mL/min/1.73m2 CKD-EP I Creatinine Equation (2020) Glomerular filtration rate ( GFR) estimation/1.73 sq m using serum, plasma, or whole bOrdered By: Christy Perea on 02-05-2025 GFR/1.73 sq M.predicted among non-blacks MDRD (S/P/Bld) [Vol rate/Area] 93 mL/min/{1.73_m2} >60 [facility] Comment on above: mL/min/1.73m2 CKD-EP I Creatinine Equation (2020) Hematocrit Auto (Bld) [Volum e fraction]Ordered By: Christy Perea on 02-05-2025 Hematocrit (Bld) [Volume fraction] 40.0 % 37-47 [facility] Hemoglobin measurementOrdere d By: Christy Perea on 02-05-2025 Hemoglobin (Bld) [Mass/Vol] 12.1 g/dL 12.0-15.0 [facility] Immature granulocytes/100 WB C Auto (Bld)Ordered By: Christy Perea on 02-05-2025 Immature granulocytes/100 WBC (Bld) 0.400 % 0.0-0.9 [facility] Comment on above: IG% - Immature Granu locytes (promyelocytes, myelocytes and metamyelocytes) > 1% indicates that a LEFT SHIFT is Present. Laboratory - Chemistry and C hemistry - challengeOrdered By: Christy Perea on 02-05-2025 AST [Catalytic activity/Vol] 16 U/L <32 [facility] Lymphocytes Auto (Unsp spec) [#/Vol]Ordered By: Christy Perea on 02-05-2025 Lymphocytes (Bld) [#/Vol] 2.14 10*3/uL 0.83-4.51 [facility] Lymphocytes/100 WBC Auto (Un sp spec)Ordered By: Christy Perea on 02-05-2025 Lymphocytes/100 WBC (Bld) 19.2 % 19-41 [facility] MCV (mean corpuscular volume ) determinationOrdered By: Christy Perea on 02-05-2025 MCV (RBC) [Entitic vol] 93.2 fL 81-99 [facility] Mean corpuscular hemoglobin (MCH) determinationOrdered By: Christy Perea on 02-05-2025 MCH (RBC) [Entitic mass] 28.2 pg 27.0-32.0 [facility] Mean corpuscular hemoglobin concentration (MCHC) determinationOrdered By: Christy Perea on 02-05-2025 MCHC (RBC) [Mass/Vol] 30.3 g/dL Low 32-36 [facility] Mean platelet volume determi nationOrdered By: Christy Perea on 02-05-2025 Platelet mean volume (Bld) [Entitic vol] 10.1 fL 6.2-12.0 [facility] Monocyte percentageOrdered B y: Christy Perea on 02-05-2025 Monocytes/100 WBC (Bld) 10.7 % High 0-10 [facility] Neutrophil percentageOrdered By: Christy Perea on 02-05-2025 Neutrophils/100 WBC (Bld) 67.1 % 47-70 [facility] Nucleated red blood cell per centageOrdered By: Christy Perea on 02-05-2025 Nucleated RBC/100 WBC (Bld) [Ratio] 0 % 0-5 [facility] Platelet countOrdered By: Carol Perea on 02-05-2025 Platelets (Bld) [#/Vol] 310 10*3/uL 150-450 [facility] Potassium (Unsp spec) [Mass/ Vol]Ordered By: Christy Perea on 02-05-2025 Potassium [Moles/Vol] 4.4 mmol/L 3.3-5.1 [facility] Potassium measurement (mass/ volume)Ordered By: Christy Perea on 02-05-2025 Potassium (Unsp spec) [Mass/Vol] 4.4 mmol/L 3.3-5.1 [facility] RBC Auto (Bld) [#/Vol]Ordere d By: Christy Perea on 02-05-2025 RBC (Bld) [#/Vol] 4.29 10*6/uL 4.2-5.4 [facility] Serum creatinine measurement (mass/volume)Ordered By: Christy Perea on 02-05-2025 Creatinine [Mass/Vol] 0.69 mg/dL Low 0.70-1.20 [facility] Serum globulin measurementOr dered By: Christy Perea on 02-05-2025 Globulin (S) [Mass/Vol] 3.2 g/dL 2.2-4.2 [facility] Serum glucose measurement (m ass/volume)Ordered By: Christy Perea on 02-05-2025 Glucose [Mass/Vol] 98 mg/dL 70-99 [facility] Serum or plasma C reactive p rotein measurement (mass/volume)Ordered By: Christy Perea on 02-05-2025 CRP [Mass/Vol] 6.40 mg/L High 0.0-3.0 [facility] Serum or plasma alanine garza otransferase (ALT) measurementOrdered By: Christy Perea on 02-05-2025 ALT [Catalytic activity/Vol] 12 U/L <35 [facility] Serum or plasma albumin diallo urement (mass/volume)Ordered By: Christy Perea on 02-05-2025 Albumin [Mass/Vol] 4.0 g/dL 3.4-4.8 [facility] Serum or plasma albumin/glob ulin mass ratioOrdered By: Christy Perea on 02-05-2025 Albumin/Globulin [Mass ratio] 1.3 {ratio} 0.9-2.4 [facility] Serum or plasma alkaline pati sphatase measurementOrdered By: Christy Perea on 02-05-2025 ALP [Catalytic activity/Vol] 63 U/L 35-104 [facility] Serum or plasma calcium diallo urement (mass/volume)Ordered By: Christy Perea on 02-05-2025 Calcium [Mass/Vol] 9.8 mg/dL 7.6-11.0 [facility] Serum or plasma urea nitroge n measurement (mass/volume)Ordered By: Christy Perea on 02-05-2025 Urea nitrogen [Mass/Vol] 14 mg/dL 4-19 [facility] Sodium levelOrdered By: Christy Perea on 02-05-2025 Sodium [Moles/Vol] 139 mmol/L 133-145 [facility] TSH DL <= 0.005 mIU/L QnOrde red By: Christy Perea on 02-05-2025 Thyroid Stimulating Hormone (TSH) 2.170 uIU/mL 0.300-4.200 [facility] TSH Qn 2.170 uIU/mL 0.300-4.200 [facility] Thyroid Stim Hormone (TSH)on 02-05-2025 TSH 2.170 uIU/mL Normal 0.300-4.200 [facility] Comment on above: Performed By: #### L 500.4050, L501.6710, L501.9520, L101.9900, L100.0100 ####[facility] [address] [place], [address] Total proteinOrdered By: Christy Perea on 02-05-2025 Protein [Mass/Vol] 7.1 g/dL 5.9-8.4 [facility] White blood cell (WBC) count Ordered By: Christy Perea on 02-05-2025 WBC (Bld) [#/Vol] 11.2 10*3/uL High 4.4-11.0 [facility] Urine Cultureon 12-27-2024 URC Normal [facility] Comment on above: Performed By: #### M 100.2200 ####[facility] [address] [place], [place], [address] Urine cultureOrdered By: Chadwick Ashton on 12-25-2024 Bacteria identified Cx Nom (U) Klebsiella pneumoniae sp pneum Abnormal [facility] Orthopedic Visit Reporton Orthopedic Visit Report Normal [facility] Shoulder min 2 Viewson 12-04 Shoulder min 2 Views Normal [facility] Cardiology Visit Reporton Cardiology Visit Report Normal [facility] Re-Evaluation - PT (1)on Re-Evaluation - PT (1) Normal [facility] SCRN MAMM (CAD)W/TOM BILATo n 10-02-2024 SCRN MAMM (CAD)W/TOM BILAT Normal [facility] Cardiology Visit Reporton Cardiology Visit Report Normal [facility] Orthopedic Visit Reporton Orthopedic Visit Report Normal [facility] Shoulder min 2 Viewson 09-30 Shoulder min 2 Views Normal [facility] Inital Evaluation (1) - PTon 09-09-2024 Inital Evaluation (1) - PT Normal [facility] Low Dose CT Lung Screeningon 09-08-[address] Lung Screening Normal [facility] Orthopedic Visit Reporton Orthopedic Visit Report Normal [facility] Urine Cultureon 08-21-2024 URC Normal [facility] Comment on above: Performed By: #### M 100.2200 ####[facility] [address] [place], [address] Urine Cultureon 08-20-2024 URC UNABLE TO CHANGE SOURCE FROM INTERFACE Order Date: 08/19/24 Order Info: 630-4 - CUUR Bacteria Ur Cult Normal [facility] Comment on above: Performed By: #### M 100.2200, L400.0001 ####[facility] [address] [place], [address] Urinalysis, Completeon 08-19 BACTERIA 1+ /hpf Normal None Seen [facility] Comment on above: Order Comment: Order Date: 08/19/24Order Info: [id number] - UACCOLLECTOR TO SPECIFY Performed By: #### M 100.2200, L400.0001 ####[facility] [address] [place], [address] WBC 5-10 SEEN Normal 0-5 [facility] Comment on above: Order Comment: Order Date: 08/19/24Order Info: [id number] - UACCOLLECTOR TO SPECIFY Performed By: #### M 100.2200, L400.0001 ####[facility] [address] [place], [address] EPI,SQUAMOUS 0 SEEN Normal 5-10 [facility] Comment on above: Order Comment: Order Date: 08/19/24Order Info: [id number] - UACCOLLECTOR TO SPECIFY Performed By: #### M 100.2200, L400.0001 ####[facility] [address] [place], [address] Mucus Ql (Urine sed) 0 SEEN Normal [facility] Comment on above: Order Comment: Order Date: 08/19/24Order Info: [id number] - UACCOLLECTOR TO SPECIFY Performed By: #### M 100.2200, L400.0001 ####[facility] [address] [place], [address] RBC 0 SEEN Normal 0-5 [facility] Comment on above: Order Comment: Order Date: 08/19/24Order Info: [id number] - UACCOLLECTOR TO SPECIFY Performed By: #### M 100.2200, L400.0001 ####[facility] [address] [place], [address] CBC W/Diff, Automatedon 07-28 PATH REV Reviewed Normal [facility] Comment on above: Result Comment: Neut rophilic leukocytosis.Clinical correlation necessary.Mp Matos M.D. 08/18/24 AMENDED REPORT 08/18/24 1130 PATH REV previously reported as: March Performed By: #### L 100.0100, L500.4050, L501.5200 ####[facility] [address] [place], [address] Orthopedic Visit Reporton Orthopedic Visit Report Normal [facility] Comprehensive Metabolic Prof ilon 08-17-2024 Albumin [Mass/Vol] 3.3 g/dL Normal 3.2-5.0 [facility] Comment on above: Performed By: #### L 100.0100, L500.4050, L501.5200 ####[facility] [address] [place], [address] Albumin/Globulin [Mass ratio] 0.8 {ratio} Low 0.9-2.4 [facility] Comment on above: Performed By: #### L 100.0100, L500.4050, L501.5200 ####[facility] [address] [place], [address] ALK P 66 U/L Normal 45-117 [facility] Comment on above: Performed By: #### L 100.0100, L500.4050, L501.5200 ####[facility] [address] [place], [address] ALT [Catalytic activity/Vol] 23 U/L Normal 13-56 [facility] Comment on above: Performed By: #### L 100.0100, L500.4050, L501.5200 ####[facility] [address] [place], [address] AST [Catalytic activity/Vol] 17 U/L Normal 15-37 [facility] Comment on above: Performed By: #### L 100.0100, L500.4050, L501.5200 ####[facility] [address] [place], [address] Bilirubin [Mass/Vol] 0.30 mg/dL Normal 0.20-1.[address] [facility] Comment on above: Result Comment: For patients on eltrombopag therapy, use of Dimension [place] TBIL is not recommended. Performed By: #### L 100.0100, L500.4050, L501.5200 ####[facility] [address] [place], [address] BUN/CRE 23.2 RATIO High 10-20 [facility] Comment on above: Performed By: #### L 100.0100, L500.4050, L501.5200 ####[facility] [address] [place], [address] CA,Total 9.4 mg/dL Normal 8.5-10.1 [facility] Comment on above: Performed By: #### L 100.0100, L500.4050, L501.5200 ####[facility] [address] [place], [address] Chloride [Moles/Vol] 101 mmol/L Normal 98-[address] [facility] Comment on above: Performed By: #### L 100.0100, L500.4050, L501.5200 ####[facility] [address] [place], [address] CO2 [Moles/Vol] 36.0 mmol/L High 21.0-32.0 [facility] Comment on above: Performed By: #### L 100.0100, L500.4050, L501.5200 ####[facility] [address] [place], [address] Creatinine [Mass/Vol] 0.73 mg/dL Normal 0.55-1.02 [facility] Comment on above: Result Comment: The validity of the calculated GFR GFRAA in patients over70 years has not been determined. Clinical correlation isessential. Performed By: #### L 100.0100, L500.4050, L501.5200 ####[facility] [address] [place], [address] ECRCL 75.61 ml/min Normal [facility] Comment on above: Performed By: #### L 100.0100, L500.4050, L501.5200 ####[facility] [address] [place], [address] EST GFR - AA 100 mL/min Normal >60 [facility] Comment on above: Result Comment: Afri can Greek GFR Calc Performed By: #### L 100.0100, L500.4050, L501.5200 ####[facility] [address] [place], [address] GAP 2 Low 5-15 [facility] Comment on above: Performed By: #### L 100.0100, L500.4050, L501.5200 ####[facility] [address] [place], [address] GFR/1.73 sq M.predicted among non-blacks MDRD (S/P/Bld) [Vol rate/Area] 83 mL/min/{1.73_m2} Normal >60 [facility] Comment on above: Result Comment: Non- GFR Calc Performed By: #### L 100.0100, L500.4050, L501.5200 ####[facility] [address] [place], [address] Globulin (S) [Mass/Vol] 3.9 g/dL Normal 2.2-4.2 [facility] Comment on above: Performed By: #### L 100.0100, L500.4050, L501.5200 ####[facility] [address] [place], [address] Glucose [Mass/Vol] 110 mg/dL High 74-106 [facility] Comment on above: Result Comment: Fast ing Glucose result from 100 to 125 mg/dLsuggests IMPAIRED HOMEOSTASIS per A.D.A. criteria. Performed By: #### L 100.0100, L500.4050, L501.5200 ####[facility] [address] [place], [address] Potassium [Moles/Vol] 4.1 mmol/L Normal 3.5-5.1 [facility] Comment on above: Performed By: #### L 100.0100, L500.4050, L501.5200 ####[facility] [address] [place], [address] Sodium [Moles/Vol] 139 mmol/L Normal 136-145 [facility] Comment on above: Performed By: #### L 100.0100, L500.4050, L501.5200 ####[facility] [address] [place], [address] T PROT 7.2 g/dL Normal 6.4-8.2 [facility] Comment on above: Performed By: #### L 100.0100, L500.4050, L501.5200 ####[facility] [address] [place], [address] Urea nitrogen [Mass/Vol] 17 mg/dL Normal 7-18 [facility] Comment on above: Performed By: #### L 100.0100, L500.4050, L501.5200 ####[facility] [address] [place], [address] Emergency Department Summary on 08-17-2024 Emergency Department Summary Normal [facility] Humerus min 2 Viewson 2023 Humerus min 2 Views Normal [facility] Magnesiumon 08-17-2024 Magnesium [Mass/Vol] 1.8 mg/dL Normal 1.6-2.[address] [facility] Comment on above: Performed By: #### L 100.0100, L500.4050, L501.5200 ####[facility] [address] [place], [address] Shoulder min 2 Viewson 08-17 Shoulder min 2 Views Normal [facility] Basic Metabolic Profile (BMP )on 05-16-2024 BUN/CRE 20.9 RATIO High 10-20 [facility] Comment on above: Performed By: #### L 500.2500, L500.4100 ####[facility] [address] [place], [address] CA,Total 9.1 mg/dL Normal 8.5-10.1 [facility] Comment on above: Performed By: #### L 500.2500, L500.4100 ####[facility] [address] [place], [address] Chloride [Moles/Vol] 99 mmol/L Normal 98-[address] [facility] Comment on above: Performed By: #### L 500.2500, L500.4100 ####[facility] [address] [place], [address] CO2 [Moles/Vol] 36.0 mmol/L High 21.0-32.0 [facility] Comment on above: Performed By: #### L 500.2500, L500.4100 ####[facility] [address] [place], [address] Creatinine [Mass/Vol] 0.96 mg/dL Normal 0.55-1.02 [facility] Comment on above: Result Comment: The validity of the calculated GFR GFRAA in patients over70 years has not been determined. Clinical correlation isessential. Performed By: #### L 500.2500, L500.4100 ####[facility] [address] [place], [address] EST GFR - AA 74 mL/min Normal >60 [facility] Comment on above: Result Comment: Afri can Greek GFR Calc Performed By: #### L 500.2500, L500.4100 ####[facility] [address] [place], [address] GAP 3 Low 5-15 [facility] Comment on above: Performed By: #### L 500.2500, L500.4100 ####[facility] [address] [place], [address] GFR/1.73 sq M.predicted among non-blacks MDRD (S/P/Bld) [Vol rate/Area] 61 mL/min/{1.73_m2} Normal >60 [facility] Comment on above: Result Comment: Non- GFR Calc Performed By: #### L 500.2500, L500.4100 ####[facility] [address] [place], [address] Glucose [Mass/Vol] 101 mg/dL Normal 74-106 [facility] Comment on above: Result Comment: Fast ing Glucose result from 100 to 125 mg/dLsuggests IMPAIRED HOMEOSTASIS per A.D.A. criteria. Performed By: #### L 500.2500, L500.4100 ####[facility] [address] [place], [address] Potassium [Moles/Vol] 4.2 mmol/L Normal 3.5-5.1 [facility] Comment on above: Performed By: #### L 500.2500, L500.4100 ####[facility] [address] [place], [address] Sodium [Moles/Vol] 138 mmol/L Normal 136-145 [facility] Comment on above: Performed By: #### L 500.2500, L500.4100 ####[facility] [address] [place], [address] Urea nitrogen [Mass/Vol] 20 mg/dL High 7-18 [facility] Comment on above: Performed By: #### L 500.2500, L500.4100 ####[facility] [address] [place], [address] Lipid Profileon 05-16-2024 Cholesterol [Mass/Vol] 174 mg/dL Normal 200 [facility] Comment on above: Result Comment: <200 mg/dL Desirable 200-240 mg/dL Borderline >240 mg/dL High Risk Performed By: #### L 500.2500, L500.4100 ####[facility] [address] [place], [address] Cholesterol in HDL [Mass/Vol] 60 mg/dL Normal [facility] Comment on above: Result Comment: The drugs N-Acetylcysteine and Metamizole may falselydepress this assay. Reference Range HDL <40 mg/dL Low HDL Cholesterol HDL >or= 60 mg/dL High HDL Cholesterol Performed By: #### L 500.2500, L500.4100 ####[facility] [address] [place], [address] Cholesterol in LDL [Mass/Vol] 92 mg/dL Normal 0-130 [facility] Comment on above: Performed By: #### L 500.2500, L500.4100 ####[facility] [address] [place], [place], [id number] Cholesterol in VLDL [Mass/Vol] 22 mg/dL Normal 5-40 [facility] Comment on above: Performed By: #### L 500.2500, L500.4100 ####[facility] [address] [place], [address] Triglyceride [Mass/Vol] 111 mg/dL Normal [facility] Comment on above: Result Comment: The drugs N-Acetylcysteine and Metamizole may falselydepress this assay.Serum Triglycerides Reference Interval Normal <150 mg/dL Borderline high 150 - 199 mg/dL High 200 - 499 mg/dL Very High > or = 500 mg/dL Performed By: #### L 500.2500, L500.4100 ####[facility] [address] [place], [place], [address] Cardiology Visit Reporton Cardiology Visit Report Normal [facility] Absolute lymphocyte countOrd ered By: Whitney Espitia on 03-28-2024 Lymphocytes Auto (Unsp spec) [#/Vol] 1.63 10*3/uL 0.83-4.51 [facility] Activated partial thrombopla stin time (aPTT) in platelet poor plasma by coagulation aOrdered By: Whitney Espitia on 03-28-2024 aPTT Coag (PPP) [Time] 29.1 s 24.1-36.2 [facility] Automated lymphocyte count a s percentage of total leukocytesOrdered By: Whitney Espitia on 03-28-2024 Lymphocytes/100 WBC Auto (Unsp spec) 19.0 % 19-41 [facility] Basophil percentageOrdered B y: Whitney Espitia on 03-28-2024 Basophils/100 WBC (Bld) 0.4 % 0-1 [facility] Chloride [Moles/Vol] 98 mmol/L 98-[address] [facility] Eosinophils/100 WBC (Bld) 3.4 % 0-5 [facility] Glucose [Mass/Vol] 95 mg/dL 74-106 [facility] Hemoglobin (Bld) [Mass/Vol] 12.0 g/dL 12.0-15.0 [facility] Monocytes/100 WBC (Bld) 10.4 % 0-10 [facility] Neutrophils (Bld) [#/Vol] 5.7 10*3/uL 2.0-7.7 [facility] Neutrophils/100 WBC (Bld) 66.4 % 47-70 [facility] Potassium [Moles/Vol] 4.4 mmol/L 3.5-5.1 [facility] Sodium [Moles/Vol] 135 mmol/L 136-145 [facility] WBC (Bld) [#/Vol] 8.6 10*3/uL 4.4-11.0 [facility] Determination of erythrocyte mean corpuscular volume (MCV)Ordered By: Whitney Espitia on 03-28-2024 MCV (RBC) [Entitic vol] 93.8 fL 81-99 [facility] Erythrocyte distribution wid th ratioOrdered By: Whitney Espitia on 03-28-2024 Erythrocyte distribution width (RBC) [Ratio] 14.9 % 11.6-14.6 [facility] Erythrocyte distribution wid th standard deviationOrdered By: Whitney Espitia on 03-28-2024 Erythrocyte distribution width (RBC) [Entitic vol] 51.7 fL 35.1-43.9 [facility] Hematocrit Auto (Bld) [Volum e fraction]Ordered By: Whitney Espitia on 03-28-2024 Hematocrit (Bld) [Volume fraction] 40.7 % 37-47 [facility] Immature granulocytes/100 WB C Auto (Bld)Ordered By: Whitney Espitia on 03-28-2024 Immature granulocytes/100 WBC (Bld) 0.400 % 0.0-0.9 [facility] Comment on above: IG% - Immature Granu locytes (promyelocytes, myelocytes and metamyelocytes) > 1% indicates that a LEFT SHIFT is Present. Laboratory - Chemistry and C hemistry - challengeOrdered By: Whitney Espitia on 03-28-2024 CO2 [Moles/Vol] 38.0 mmol/L 21.0-32.0 [facility] Urea nitrogen/Creatinine [Mass ratio] 25.1 mg/mg 10-20 [facility] Laboratory - CoagulationOrde red By: Whitney Espitia on 03-28-2024 INR Coag (Bld) [Relative time] 1.2 {INR} [facility] PT Coag (PPP) [Time] 14.9 s 11.7-14.[address] [facility] Laboratory - Hematology and Cell countsOrdered By: Whitney Espitia on 03-28-2024 MCH (RBC) [Entitic mass] 27.6 pg 27.0-32.0 [facility] MCHC (RBC) [Mass/Vol] 29.5 g/dL 32-36 [facility] Nucleated RBC/100 WBC (Bld) [Ratio] 0 % 0-5 [facility] Platelet mean volume (Bld) [Entitic vol] 9.6 fL 6.2-12.0 [facility] Platelets (Bld) [#/Vol] 289 10*3/uL 150-450 [facility] No Panel InformationOrdered By: Whitney Espitia on 03-28-2024 Estimated GFR (MDRD) Amer 97 mL/min >60 [facility] Comment on above: GFR Calc Estimated GFR (MDRD) Non-Af Amer 80 mL/min >60 [facility] Comment on above: Non- GFR Calc RBC Auto (Bld) [#/Vol]Ordere d By: Whitney Espitia on 03-28-2024 RBC (Bld) [#/Vol] 4.34 10*6/uL 4.2-5.4 [facility] Serum or plasma calcium diallo urement (mass/volume)Ordered By: Whitney Espitia on 03-28-2024 Calcium [Mass/Vol] 9.3 mg/dL 8.5-10.1 [facility] Serum or plasma creatinine m easurement (mass/volume)Ordered By: Whitney Espitia on 03-28-2024 Creatinine [Mass/Vol] 0.76 mg/dL 0.55-1.02 [facility] Comment on above: The validity of the calculated GFR & GFRAA in patients over 70 years has not been determined. Clinical correlation is essential. Serum or plasma urea nitroge n measurement (mass/volume)Ordered By: Whitney Espitia on 03-28-2024 Urea nitrogen [Mass/Vol] 19 mg/dL 7-18 [facility] Thin prep Papanicolaou smear with manual screeningOrdered By: Whitney Espitia on 03-28-2024 Thin prep Papanicolaou smear with manual screening -1 5-15 [facility] Absolute lymphocyte countOrd ered By: Dolores Martin on 01-21-2024 Lymphocytes Auto (Unsp spec) [#/Vol] 1.55 10*3/uL 0.83-4.51 [facility] Automated lymphocyte count a s percentage of total leukocytesOrdered By: Dolores Martin on 01-21-2024 Lymphocytes/100 WBC Auto (Unsp spec) 15.3 % 19-41 [facility] Basophil percentageOrdered B y: Dolores Martin on 01-21-2024 Basophils/100 WBC (Bld) 0.6 % 0-1 [facility] Chloride [Moles/Vol] 104 mmol/L 98-[address] [facility] Eosinophils/100 WBC (Bld) 2.5 % 0-5 [facility] Glucose [Mass/Vol] 104 mg/dL 74-106 [facility] Comment on above: Fasting Glucose resu lt from 100 to 125 mg/dL suggests IMPAIRED HOMEOSTASIS per A.D.A. criteria. Hemoglobin (Bld) [Mass/Vol] 12.5 g/dL 12.0-15.0 [facility] Monocytes/100 WBC (Bld) 9.3 % 0-10 [facility] Neutrophils (Bld) [#/Vol] 7.3 10*3/uL 2.0-7.7 [facility] Neutrophils/100 WBC (Bld) 71.7 % 47-70 [facility] Potassium [Moles/Vol] 4.1 mmol/L 3.5-5.1 [facility] Sodium [Moles/Vol] 140 mmol/L 136-145 [facility] WBC (Bld) [#/Vol] 10.2 10*3/uL 4.4-11.0 [facility] Determination of erythrocyte mean corpuscular volume (MCV)Ordered By: Dolores Martin on 01-21-2024 MCV (RBC) [Entitic vol] 88.9 fL 81-99 [facility] Erythrocyte distribution wid th ratioOrdered By: Dolores Martin on 01-21-2024 Erythrocyte distribution width (RBC) [Ratio] 15.0 % 11.6-14.6 [facility] Erythrocyte distribution wid th standard deviationOrdered By: Dolores Martin on 01-21-2024 Erythrocyte distribution width (RBC) [Entitic vol] 49.0 fL 35.1-43.9 [facility] Hematocrit Auto (Bld) [Volum e fraction]Ordered By: Dolores Martin on 01-21-2024 Hematocrit (Bld) [Volume fraction] 40.0 % 37-47 [facility] Immature granulocytes/100 WB C Auto (Bld)Ordered By: Dolores Martin on 01-21-2024 Immature granulocytes/100 WBC (Bld) 0.600 % 0.0-0.9 [facility] Comment on above: IG% - Immature Granu locytes (promyelocytes, myelocytes and metamyelocytes) > 1% indicates that a LEFT SHIFT is Present. Laboratory - Chemistry and C hemistry - challengeOrdered By: Dolores Martin on 01-21-2024 CO2 [Moles/Vol] 34.0 mmol/L 21.0-32.0 [facility] Urea nitrogen/Creatinine [Mass ratio] 24.1 mg/mg 10-20 [facility] Laboratory - Hematology and Cell countsOrdered By: Dolores Martin on 01-21-2024 MCH (RBC) [Entitic mass] 27.8 pg 27.0-32.0 [facility] MCHC (RBC) [Mass/Vol] 31.3 g/dL 32-36 [facility] Nucleated RBC/100 WBC (Bld) [Ratio] 0 % 0-5 [facility] Platelet mean volume (Bld) [Entitic vol] 9.8 fL 6.2-12.0 [facility] Platelets (Bld) [#/Vol] 287 10*3/uL 150-450 [facility] No Panel InformationOrdered By: Dolores Martin on 01-21-2024 Estimated Creatinine Clearance Calc 73.11 ml/min [facility] Estimated GFR (MDRD) Amer 132 mL/min >60 [facility] Comment on above: GFR Calc Estimated GFR (MDRD) Non-Af Amer 109 mL/min >60 [facility] Comment on above: Non- GFR Calc Troponin I High Sensitivity 10 pg/mL 3.0-54.0 [facility] Comment on above: Please Note: New Kath[place] t Units and Gender Specific Reference Ranges. For more information see Policy Stat Procedure [place] High Sensitivity Troponin (TNIH) and attachments. RBC Auto (Bld) [#/Vol]Ordere d By: Dolores Martin on 01-21-2024 RBC (Bld) [#/Vol] 4.50 10*6/uL 4.2-5.4 [facility] Serum or plasma calcium diallo urement (mass/volume)Ordered By: Dolores Martin on 01-21-2024 Calcium [Mass/Vol] 9.3 mg/dL 8.5-10.1 [facility] Serum or plasma creatinine m easurement (mass/volume)Ordered By: Dolores Martin on 01-21-2024 Creatinine [Mass/Vol] 0.58 mg/dL 0.55-1.02 [facility] Comment on above: The validity of the calculated GFR & GFRAA in patients over 70 years has not been determined. Clinical correlation is essential. Serum or plasma thyroid stim ulating hormone (TSH) measurement (units/volume)Ordered By: Dolores Martin on 01-21-2024 TSH Qn 1.53 uIU/mL 0.358-3.74 [facility] Serum or plasma urea nitroge n measurement (mass/volume)Ordered By: Dolores Martin on 01-21-2024 Urea nitrogen [Mass/Vol] 14 mg/dL 7-18 [facility] Thin prep Papanicolaou smear with manual screeningOrdered By: Dolores Martin on 01-21-2024 Thin prep Papanicolaou smear with manual screening 2 5-15 [facility] Absolute lymphocyte countOrd ered By: Christy Perea on 11-29-2023 Lymphocytes Auto (Unsp spec) [#/Vol] 1.50 10*3/uL 0.83-4.51 [facility] Basophil percentageOrdered B y: Christy Perea on 11-29-2023 Basophils/100 WBC (Bld) 0.7 % 0-1 [facility] Bilirubin [Mass/Vol] 0.40 mg/dL 0.20-1.[address] [facility] Comment on above: For patients on eltr ombopag therapy, use of Dimension [place] TBIL is not recommended. Chloride [Moles/Vol] 99 mmol/L 98-[address] [facility] Eosinophils/100 WBC (Bld) 4.3 % 0-5 [facility] Glucose [Mass/Vol] 95 mg/dL 74-106 [facility] Neutrophils (Bld) [#/Vol] 6.6 10*3/uL 2.0-7.7 [facility] Neutrophils/100 WBC (Bld) 67.9 % 47-70 [facility] Potassium [Moles/Vol] 4.4 mmol/L 3.5-5.1 [facility] Protein [Mass/Vol] 7.1 g/dL 6.4-8.2 [facility] Sodium [Moles/Vol] 139 mmol/L 136-145 [facility] WBC (Bld) [#/Vol] 9.7 10*3/uL 4.4-11.0 [facility] Blood erythrocytes count (nu mber/volume)Ordered By: Christy Perea on 11-29-2023 RBC (Bld) [#/Vol] 4.51 10*6/uL 4.2-5.4 [facility] Blood hemoglobin measurement (mass/volume)Ordered By: Christy Perea on 11-29-2023 Hemoglobin (Bld) [Mass/Vol] 12.4 g/dL 12.0-15.0 [facility] Blood lymphocytes/100 leukoc ytesOrdered By: Christy Perea on 11-29-2023 Lymphocytes/100 WBC (Bld) 15.4 % 19-41 [facility] Blood monocytes/100 leukocyt esOrdered By: Christy Perea on 11-29-2023 Monocytes/100 WBC (Bld) 11.5 % 0-10 [facility] Blood platelet mean volumeOr dered By: Christy Perea on 01-04-2024 Platelet mean volume (Bld) [Entitic vol] 10.0 fL 6.2-12.0 [facility] Determination of erythrocyte mean corpuscular volume (MCV)Ordered By: Christy Perea on 11-29-2023 MCV (RBC) [Entitic vol] 92.5 fL 81-99 [facility] Hematocrit Auto (Bld) [Volum e fraction]Ordered By: Christy Perea on 11-29-2023 Hematocrit (Bld) [Volume fraction] 41.7 % 37-47 [facility] Laboratory - Chemistry and C hemistry - challengeOrdered By: Christy Perea on 11-29-2023 ALP [Catalytic activity/Vol] 60 U/L 45-117 [facility] ALT [Catalytic activity/Vol] 15 U/L 13-56 [facility] CO2 [Moles/Vol] 36.0 mmol/L 21.0-32.0 [facility] Cobalamin (Vitamin B12) [Mass/Vol] 353 pg/mL 211-911 [facility] Globulin (S) [Mass/Vol] 3.9 g/dL 2.2-4.2 [facility] Urea nitrogen/Creatinine [Mass ratio] 19.7 mg/mg 10-20 [facility] Laboratory - Hematology and Cell countsOrdered By: Christy Perea on 11-29-2023 Erythrocyte distribution width (RBC) [Entitic vol] 47.0 fL 35.1-43.9 [facility] Erythrocyte distribution width (RBC) [Ratio] 13.8 % 11.6-14.6 [facility] Immature granulocytes/100 WBC (Bld) 0.200 % 0.0-0.9 [facility] Comment on above: IG% - Immature Granu locytes (promyelocytes, myelocytes and metamyelocytes) > 1% indicates that a LEFT SHIFT is Present. MCH (RBC) [Entitic mass] 27.5 pg 27.0-32.0 [facility] Nucleated RBC/100 WBC (Bld) [Ratio] 0 % 0-5 [facility] MCHC Auto (RBC) [Mass/Vol]Or dered By: Christy Perea on 11-29-2023 MCHC (RBC) [Mass/Vol] 29.7 g/dL 32-36 [facility] No Panel InformationOrdered By: Christy Perea on 11-29-2023 Estimated GFR (MDRD) Amer 104 mL/min >60 [facility] Comment on above: GFR Calc Estimated GFR (MDRD) Non-Af Amer 86 mL/min >60 [facility] Comment on above: Non- GFR Calc Thyroid Stimulating Hormone (TSH) 2.21 uIU/mL 0.358-3.74 [facility] Platelets bldOrdered By: Christy Perea on 11-29-2023 Platelets (Bld) [#/Vol] 322 10*3/uL 150-450 [facility] Serum or plasma albumin diallo urement (mass/volume)Ordered By: Christy Perea on 11-29-2023 Albumin [Mass/Vol] 3.2 g/dL 3.2-5.0 [facility] Serum or plasma albumin/glob ulin mass ratioOrdered By: Christy Perea on 11-29-2023 Albumin/Globulin [Mass ratio] 0.8 {ratio} 0.9-2.4 [facility] Serum or plasma calcium diallo urement (mass/volume)Ordered By: Christy Perea on 11-29-2023 Calcium [Mass/Vol] 8.8 mg/dL 8.5-10.1 [facility] Serum or plasma creatinine m easurement (mass/volume)Ordered By: Christy Perea on 11-29-2023 Creatinine [Mass/Vol] 0.71 mg/dL 0.55-1.02 [facility] Comment on above: The validity of the calculated GFR & GFRAA in patients over 70 years has not been determined. Clinical correlation is essential. Serum or plasma urea nitroge n measurement (mass/volume)Ordered By: Christy Perea on 11-29-2023 Urea nitrogen [Mass/Vol] 14 mg/dL 7-18 [facility] Thin prep Papanicolaou smear with manual screeningOrdered By: Christy Perea on 11-29-2023 Thin prep Papanicolaou smear with manual screening 14 U/L 15-37 [facility] Thin prep Papanicolaou smear with manual screening 4 5-15 [facility] Basophil percentageOrdered B y: Preston Pineda on 07-10-2023 WBC (Bld) [#/Vol] 15.5 10*3/uL 4.4-11.0 [facility] Blood erythrocytes count (nu mber/volume)Ordered By: Preston Pineda on 07-10-2023 RBC (Bld) [#/Vol] 4.54 10*6/uL 4.2-5.4 [facility] Blood hemoglobin measurement (mass/volume)Ordered By: Preston Pineda on 07-10-2023 Hemoglobin (Bld) [Mass/Vol] 13.3 g/dL 12.0-15.0 [facility] Blood platelet mean volumeOr dered By: Preston Pineda on 07-10-2023 Platelet mean volume (Bld) [Entitic vol] 9.9 fL 6.2-12.0 [facility] Determination of erythrocyte mean corpuscular volume (MCV)Ordered By: Preston Pineda on 07-10-2023 MCV (RBC) [Entitic vol] 97.4 fL 81-99 [facility] Hematocrit Auto (Bld) [Volum e fraction]Ordered By: Preston Pineda on 07-10-2023 Hematocrit (Bld) [Volume fraction] 44.2 % 37-47 [facility] Laboratory - Hematology and Cell countsOrdered By: Preston Pineda on 07-10-2023 Erythrocyte distribution width (RBC) [Entitic vol] 51.3 fL 35.1-43.9 [facility] Erythrocyte distribution width (RBC) [Ratio] 14.2 % 11.6-14.6 [facility] MCH (RBC) [Entitic mass] 29.3 pg 27.0-32.0 [facility] MCHC Auto (RBC) [Mass/Vol]Or dered By: Preston Pineda on 07-10-2023 MCHC (RBC) [Mass/Vol] 30.1 g/dL 32-36 [facility] Platelets bldOrdered By: Renetta Pineda on 07-10-2023 Platelets (Bld) [#/Vol] 257 10*3/uL 150-450 [facility] Absolute lymphocyte countOrd ered By: Geoff Galvan on 07-09-2023 Lymphocytes Auto (Unsp spec) [#/Vol] 0.64 10*3/uL 0.83-4.51 [facility] Basophil percentageOrdered B y: Geoff Galvan on 07-09-2023 Basophils/100 WBC (Bld) 0.3 % 0-1 [facility] Chloride [Moles/Vol] 100 mmol/L 98-[address] [facility] Eosinophils/100 WBC (Bld) 0.0 % 0-5 [facility] Glucose [Mass/Vol] 144 mg/dL 74-106 [facility] Comment on above: Fasting Glucose resu lt greater than or equal to 126 mg/dL suggests DIABETES MELLITUS per A.D.A. criteria. Neutrophils (Bld) [#/Vol] 11.7 10*3/uL 2.0-7.7 [facility] Neutrophils/100 WBC (Bld) 91.8 % 47-70 [facility] Potassium [Moles/Vol] 4.3 mmol/L 3.5-5.1 [facility] Sodium [Moles/Vol] 137 mmol/L 136-145 [facility] Blood lymphocytes/100 leukoc ytesOrdered By: Geoff Galvan on 07-09-2023 Lymphocytes/100 WBC (Bld) 5.0 % 19-41 [facility] Blood monocytes/100 leukocyt esOrdered By: Geoff Galvan on 07-09-2023 Monocytes/100 WBC (Bld) 2.0 % 0-10 [facility] Laboratory - Chemistry and C hemistry - challengeOrdered By: Geoff Galvan on 07-09-2023 CO2 [Moles/Vol] 21.0 mmol/L 21.0-32.0 [facility] Urea nitrogen/Creatinine [Mass ratio] 18.1 mg/mg 10-20 [facility] Laboratory - Hematology and Cell countsOrdered By: Geoff Galvan on 07-09-2023 Immature granulocytes/100 WBC (Bld) 0.900 % 0.0-0.9 [facility] Comment on above: IG% - Immature Granu locytes (promyelocytes, myelocytes and metamyelocytes) > 1% indicates that a LEFT SHIFT is Present. Nucleated RBC/100 WBC (Bld) [Ratio] 0 % 0-5 [facility] No Panel InformationOrdered By: Geoff Galvan on 07-09-2023 Estimated Creatinine Clearance Calc 41.99 ml/min [facility] Estimated GFR (MDRD) Amer 140 mL/min >60 [facility] Comment on above: GFR Calc Estimated GFR (MDRD) Non-Af Amer 116 mL/min >60 [facility] Comment on above: Non- GFR Calc Serum or plasma calcium diallo urement (mass/volume)Ordered By: Geoff Galvan on 07-09-2023 Calcium [Mass/Vol] 8.9 mg/dL 8.5-10.1 [facility] Serum or plasma creatinine m easurement (mass/volume)Ordered By: Geoff Galvan on 07-09-2023 Creatinine [Mass/Vol] 0.55 mg/dL 0.55-1.02 [facility] Comment on above: The validity of the calculated GFR & GFRAA in patients over 70 years has not been determined. Clinical correlation is essential. Serum or plasma urea nitroge n measurement (mass/volume)Ordered By: Geoff Galvan on 07-09-2023 Urea nitrogen [Mass/Vol] 10 mg/dL 7-18 [facility] Thin prep Papanicolaou smear with manual screeningOrdered By: Geoff Galvan on 07-09-2023 Thin prep Papanicolaou smear with manual screening 16 5-15 [facility] Bacteria identified Respirat ory culture Nom (Unsp spec)Ordered By: Archie Gamino on 07-08-2023 Respiratory Culture Haemophilus influenzae [facility] Gram stain for investigation of transfusion reactionOrdered By: Archie Gamino on 07-08-2023 Microscopic observation Gram stain Nom (Unsp spec) [facility] Laboratory - Microbiology an d Antimicrobial susceptibilityOrdered By: Daja Hogan on 07-08-2023 SARS-CoV-2 (COVID-19) RNA KEARA+probe Ql (Unsp spec) [facility] No Panel InformationOrdered By: Archie Gamino on 07-08-2023 D-Dimer Quantitative (PE/DVT) 0.63 FEU/ug/m 0.27-0.49 [facility] Comment on above: D-Dimer ELEVATED (>0 .49): Additional studies and clinicalassessments are indicated to conclude diagnosis of:Deep Vein Thrombosis (DVT) or Pulmonary Embolism (PE)CRITICAL VALUE VERIFIED. CALLED TO BO OQUENDO07/08/23 5004 Ga Hogan.RESULTS READ BACK BY SAME . Troponin I High Sensitivity 24 pg/mL 3.0-54.0 [facility] Comment on above: Please Note: New Kathi t Units and Gender Specific Reference Ranges. For more information see Policy Stat Procedure [place] High Sensitivity Troponin (TNIH) and attachments. Sven 07-20-2022 CNPN Telephone (PULMMN) PIPER CLARK ([id number]) 1955 F Date Time Provider Department 07/20/22 STEPHANY LIND During your visit today, we recorded the following information about you: Stephany Lind 07/20/2022 2:52 PM Signed C Information The patient wants to know why her PVR, 2.62 Wood Units, did not qualify her for PH medications? Per Dr. Newell, the PVR needs to be > 3 Wood Units for the patient to qualify in the future. The patient will contact is if she has any further questions. 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 Problem List As Of Date: 07/20/2022 (None) Encounter Status:Closed by STEPHANY LIND on 07/20/22 Normal [facility] ARTERIAL BLOOD GASESon 07-19 Base excess Calc (Bld) [Moles/Vol] 1 mmol/L Normal 0-2 [facility] Comment on above: Order Comment: Speci men Type: ARTERIAL BLOOD SPECIMEN Ordering Facility: [facility] Address: [address] [place] [address] Performed By: #### A LLBG #### [facility] CLIA [id number] [address] [place] [address] [place] CALCIUM IONIZED, PH CORRECTED 1.18 mmol/L Normal 1.08-1.30 [facility] Comment on above: Order Comment: Myesha singer Type: ARTERIAL BLOOD SPECIMEN Ordering Facility: [facility] Address: [address] [place] [address] Performed By: #### A LLBG #### [facility] CLIA [id number] [address] [place] [address] [place] Calcium.ionized (Bld) [Mass/Vol] 1.13 mmol/L Normal 1.08-1.30 [facility] Comment on above: Order Comment: Delontei men Type: ARTERIAL BLOOD SPECIMEN Ordering Facility: [facility] Address: [address] [place] [address] Performed By: #### A LLBG #### [facility] CLIA [id number] [address] [place], [place] [address] [place] Carboxyhemoglobin (BldA) [Mass fraction] 1.4 % Normal 0.0-2.0 [facility] Comment on above: Order Comment: Speci men Type: ARTERIAL BLOOD SPECIMEN Ordering Facility: [facility] Address: [address] [place] [address] Result Comment: Carb oxyhemoglobin Reference Range for Smokers: 2.0-8.0% Performed By: #### A LLBG #### [facility] CLIA [id number] [address] [place] [address] [place] CO2 (Bld) [Partial pressure] 32 mm Hg Low 36-46 [facility] Comment on above: Order Comment: Speci men Type: ARTERIAL BLOOD SPECIMEN Ordering Facility: [facility] Address: [address] [place] [address] Performed By: #### A LLBG #### [facility] CLIA [id number] [address] [place] [address] [place] CO2 [Moles/Vol] 25 mmol/L Normal 22-28 [facility] Comment on above: Order Comment: Speci men Type: ARTERIAL BLOOD SPECIMEN Ordering Facility: [facility] Address: [address] [place] [address] Performed By: #### A LLBG #### [facility] CLIA [id number] [address] [place] [address] [place] CO2 adjusted to patient's actual temperature (Bld) [Partial pressure] 32 mmHg Low 36-46 [facility] Comment on above: Order Comment: Speci men Type: ARTERIAL BLOOD SPECIMEN Ordering Facility: [facility] Address: [address] [place] [address] Performed By: #### A LLBG #### [facility] CLIA [id number] [address] [place], [place] [address] [place] Glucose [Mass/Vol] 97 mg/dL Normal 60-105 [facility] Comment on above: Order Comment: Speci men Type: ARTERIAL BLOOD SPECIMEN Ordering Facility: [facility] Address: [address] [place], [place] [id number] Performed By: #### A LLBG #### [facility] CLIA [id number] [address] [place] [address] [place] HCO3 (Bld) [Moles/Vol] 24 mmol/L Normal 22-26 [facility] Comment on above: Order Comment: Speci men Type: ARTERIAL BLOOD SPECIMEN Ordering Facility: [facility] Address: [address] [place], [place] [id number] Performed By: #### A LLBG #### [facility] CLIA [id number] [address] [place] [address] [place] Hematocrit (Bld) [Volume fraction] 44.0 % Normal 36.0-46.0 [facility] Comment on above: Order Comment: Speci men Type: ARTERIAL BLOOD SPECIMEN Ordering Facility: [facility] Address: [address] [place], [place] [address] Performed By: #### A LLBG #### [facility] CLIA [id number] [address] [place] [address] [place] Hemoglobin (Bld) [Mass/Vol] 14.3 g/dL Normal 11.5-15.5 [facility] Comment on above: Order Comment: Speci men Type: ARTERIAL BLOOD SPECIMEN Ordering Facility: [facility] Address: [address] [place], [place] [id number] Performed By: #### A LLBG #### [facility] CLIA [id number] [address] [place] [address] [place] Lactate [Moles/Vol] 0.9 mmol/L Normal 0.5-2.2 [facility] Comment on above: Order Comment: Speci men Type: ARTERIAL BLOOD SPECIMEN Ordering Facility: [facility] Address: [address], [place] [address] Performed By: #### A LLBG #### [facility] CLIA [id number] [address] [place] [address] [place] Order Comment: Speci men Type: VENOUS BLOOD SPECIMEN Ordering Facility: [facility] Address: [address] [place], [place] [address] Performed By: #### 2 [id number] #### [facility] CLIA [id number] [address] [place] [address] [place] Methemoglobin (Bld) [Mass fraction] 0.9 % Normal 0.0-1.5 [facility] Comment on above: Order Comment: Speci men Type: ARTERIAL BLOOD SPECIMEN Ordering Facility: [facility] Address: [address] [place] [address] Performed By: #### A LLBG #### [facility] CLIA [id number] [address] [place], [place] [address] [place] Oxygen (Bld) [Partial pressure] 77 mm Hg Low 85-95 [facility] Comment on above: Order Comment: Speci men Type: ARTERIAL BLOOD SPECIMEN Ordering Facility: [facility] Address: [address] [place] [address] Performed By: #### A LLBG #### [facility] CLIA [id number] [address] [place], [place] [address] [place] Oxygen adjusted to patient's actual temperature (Bld) [Partial pressure] 77 mmHg Low 85-95 [facility] Comment on above: Order Comment: Speci men Type: ARTERIAL BLOOD SPECIMEN Ordering Facility: [facility] Address: [address] [place], [place] [id number] Performed By: #### A LLBG #### [facility] CLIA [id number] [address] [place], [place] [address] [place] OXYGEN SATURATION, ARTERIAL 96 % Normal 95-98 [facility] Comment on above: Order Comment: Speci men Type: ARTERIAL BLOOD SPECIMEN Ordering Facility: [facility] Address: [address] [place] [address] Performed By: #### A LLBG #### [facility] CLIA [id number] [address] [place] [address] [place] Oxyhemoglobin (BldA) [Mass fraction] 94 % Low 95-98 [facility] Comment on above: Order Comment: Speci men Type: ARTERIAL BLOOD SPECIMEN Ordering Facility: [facility] Address: [address] [place] [address] Performed By: #### A LLBG #### [facility] CLIA [id number] [address] [place] [address] [place] PATIENT POSITION-ICPET Wedge Normal [facility] Comment on above: Order Comment: Speci men Type: ARTERIAL BLOOD SPECIMEN Ordering Facility: [facility] Address: [address] [place], [place] [address] Performed By: #### A LLBG #### [facility] CLIA [id number] [address] [place] [address] [place] pH (Bld) 7.48 [pH] High 7.35-7.45 [facility] Comment on above: Order Comment: Speci men Type: ARTERIAL BLOOD SPECIMEN Ordering Facility: [facility] Address: [address] [place] [address] Performed By: #### A LLBG #### [facility] CLIA [id number] [address] [place] [address] [place] pH adjusted to patient's actual temperature (Bld) 7.48 High 7.35-7.45 [facility] Comment on above: Order Comment: Speci men Type: ARTERIAL BLOOD SPECIMEN Ordering Facility: [facility] Address: [address] [place] [address] Performed By: #### A LLBG #### [facility] CLIA [id number] [address] [place] [address] [place] Potassium [Moles/Vol] 3.5 mmol/L Normal 3.5-5.0 [facility] Comment on above: Order Comment: Speci men Type: ARTERIAL BLOOD SPECIMEN Ordering Facility: [facility] Address: [address] [place] [address] Performed By: #### A LLBG #### [facility] CLIA [id number] [address] [place] [address] [place] Sodium [Moles/Vol] 138 mmol/L Normal 136-144 [facility] Comment on above: Order Comment: Speci men Type: ARTERIAL BLOOD SPECIMEN Ordering Facility: [facility] Address: [address] [place] [address] Performed By: #### A LLBG #### [facility] CLIA [id number] [address] [place] [address] [place] Base excess Calc (Bld) [Moles/Vol] 1 mmol/L 0 - 2 mmol/L [facility] Calcium Ionized, pH corrected 1.18 mmol/L 1.08 - 1.30 mmol/L [facility] Calcium.ionized (Bld) [Mass/Vol] 1.13 mmol/L 1.08 - 1.30 mmol/L [facility] Carboxyhemoglobin (BldA) [Mass fraction] 1.4 % 0.0 - 2.0 % [facility] CO2 (Bld) [Partial pressure] 32 mm Hg Low 36 - 46 mm Hg [facility] CO2 [Moles/Vol] 25 mmol/L 22 - 28 mmol/L [facility] CO2 adjusted to patient's actual temperature (Bld) [Partial pressure] 32 mmHg Low 36 - 46 mmHg [facility] Glucose [Mass/Vol] 97 mg/dL 60 - 105 mg/dL [facility] HCO3 (Bld) [Moles/Vol] 24 mmol/L 22 - 26 mmol/L [facility] Hematocrit (Bld) [Volume fraction] 44.0 % 36.0 - 46.0 % [facility] Hemoglobin (Bld) [Mass/Vol] 14.3 g/dL 11.5 - 15.5 g/dL [facility] Lactate [Moles/Vol] 0.9 mmol/L 0.5 - 2. 2 mmol/L [facility] Methemoglobin (Bld) [Mass fraction] 0.9 % 0.0 - 1.5 % [facility] Oxygen (Bld) [Partial pressure] 77 mm Hg Low 85 - 95 mm Hg [facility] Oxygen adjusted to patient's actual temperature (Bld) [Partial pressure] 77 mmHg Low 85 - 95 mmHg [facility] Oxygen saturation in Blood 96 % 95 - 98 % [facility] Oxyhemoglobin (BldA) [Mass fraction] 94 % Low 95 - 98 % [facility] Patient Position Wedge [facility] pH (Bld) 7.48 [pH] High 7.35 - 7.45 [facility] pH adjusted to patient's actual temperature (Bld) 7.48 High 7.35 - 7.45 [facility] Potassium [Moles/Vol] 3.5 mmol/L 3.5 - 5.0 mmol/L [facility] Sodium [Moles/Vol] 138 mmol/L 136 - 144 mmol/L [facility] CNOVon 07-19-2022 CNOV Office Visit (PUBRON ) PIPER CLARK ([id number]) 1955 F Date Time Provider Department 07/19/22 4:00 PM [facility] [id number] PROCEDURE RMPUBRON During your visit today, we recorded the following information about you: Weight Height 88.2 kg 1.575 m Referring Provider: LORNE NEWELL [[id number]] Allergies As of Date: 07/19/2022 Noted Allergy Reaction DUST MITES 06/30/2022 7 - Swelling FEATHERS 06/30/2022 7 - Swelling MOLD 06/30/2022 7 - Swelling Date Reviewed: 06/30/2022 Reviewed by: Lorne Newell MD - Fully Assessed Primary Visit Diagnosis:Stage 3 severe COPD by GOLD classification (FORMERLY [facility]) [J44.9] Order(s):XR ARTERY CATHETER (POC) FOR REYNALDO USE ONLY [5529860] Order #: [id number]: 1 US VASCULAR (POC) FOR REYNALDO USE ONLY [[id number]] Order #: [id number]. #:[id number]: 1 ARTERIAL BLOOD GASES [SQALLBG] Order #: [id number]. #:[id number] VENOUS BLOOD GASES [SQVALLBG] Order #: [id number]. #:[id number] Prescriptions as of 07/19/2022 - fluticasone-vilanterol (BREO ELLIPTA) 200-25 mcg/dose inhaler [...] 2 Inhalation as instructed four times daily. Problem List As Of Date: 07/19/2022 (None) Encounter Status:Closed by LE ORTEGA on 07/19/22 Normal [facility] Gas and Carbon monoxide pane l (BldV)on 07-19-2022 Base excess Calc (BldV) [Moles/Vol] 3 mmol/L High 0-2 [facility] Comment on above: Order Comment: Speci men Type: VENOUS BLOOD SPECIMEN Ordering Facility: [facility] Address: [address] [place] [address] Performed By: #### 2 4344-4 #### [facility] CLIA [id number] [address] [place] [address] [place] CALCIUM IONIZED, PH CORRECTED 1.24 mmol/L Normal 1.08-1.30 [facility] Comment on above: Order Comment: Speci men Type: VENOUS BLOOD SPECIMEN Ordering Facility: [facility] Address: [address] [place] [address] Performed By: #### 2 4344-4 #### [facility] CLIA [id number] [address] [place] [address] [place] Calcium.ionized (Bld) [Mass/Vol] 1.24 mmol/L Normal 1.08-1.30 [facility] Comment on above: Order Comment: Speci men Type: VENOUS BLOOD SPECIMEN Ordering Facility: [facility] Address: [address] [place], [place] [address] Performed By: #### 2 4344-4 #### [facility] CLIA [id number] [address] [place] [address] [place] Carboxyhemoglobin (BldV) [Mass fraction] 0.8 % Normal 0.0-2.0 [facility] Comment on above: Order Comment: Speci men Type: VENOUS BLOOD SPECIMEN Ordering Facility: [facility] Address: [address] [place] [address] Result Comment: Carb oxyhemoglobin Reference Range for Smokers: 2.0-8.0% Performed By: #### 2 4344-4 #### [facility] CLIA [id number] [address] [place] [address] [place] CO2 (BldV) [Partial pressure] 48 mm[Hg] Normal 42-55 [facility] Comment on above: Order Comment: Speci men Type: VENOUS BLOOD SPECIMEN Ordering Facility: [facility] Address: [address] [place] [address] Performed By: #### 2 4344-4 #### [facility] CLIA [id number] [id number] [address] [place] CO2 [Moles/Vol] 30 mmol/L High 25-29 [facility] Comment on above: Order Comment: Speci men Type: VENOUS BLOOD SPECIMEN Ordering Facility: [facility] Address: [address] [place] [address] Performed By: #### 2 4344-4 #### [facility] CLIA [id number] [address] [place] [address] [place] CO2 adjusted to patient's actual temperature (BldV) [Partial pressure] 48 mmHg Normal 42-55 [facility] Comment on above: Order Comment: Speci men Type: VENOUS BLOOD SPECIMEN Ordering Facility: [facility] Address: [address] [place] [address] Performed By: #### 2 4344-4 #### [facility] CLIA [id number] [address] [place] [address] [place] Glucose [Mass/Vol] 103 mg/dL Normal 60-105 [facility] Comment on above: Order Comment: Speci men Type: VENOUS BLOOD SPECIMEN Ordering Facility: [facility] Address: [address] [place], [place] [address] Performed By: #### 2 4344-4 #### [facility] CLIA [id number] [address] [place] [address] [place] HCO3 (Bld) [Moles/Vol] 28 mmol/L Normal 24-28 [facility] Comment on above: Order Comment: Speci men Type: VENOUS BLOOD SPECIMEN Ordering Facility: [facility] Address: [address] [place], [place] [address] Performed By: #### 2 4344-4 #### [facility] CLIA [id number] [address] [place] [address] [place] Hematocrit (Bld) [Volume fraction] 43.1 % Normal 36.0-46.0 [facility] Comment on above: Order Comment: Speci men Type: VENOUS BLOOD SPECIMEN Ordering Facility: [facility] Address: [address] [place] [address] Performed By: #### 2 4344-4 #### [facility] CLIA [id number] [address] [place] [address] [place] Hemoglobin (Bld) [Mass/Vol] 14.1 g/dL Normal 11.5-15.5 [facility] Comment on above: Order Comment: Speci men Type: VENOUS BLOOD SPECIMEN Ordering Facility: [facility] Address: [address] [place], [place] [address] Performed By: #### 2 4344-4 #### [facility] CLIA [id number] [address] [place] [address] [place] Methemoglobin (Bld) [Mass fraction] 1.0 % Normal 0.0-1.5 [facility] Comment on above: Order Comment: Speci men Type: VENOUS BLOOD SPECIMEN Ordering Facility: [facility] Address: [address] [place] [address] Performed By: #### 2 4344-4 #### [facility] CLIA [id number] [address] [place] [address] [place] Oxygen (BldV) [Partial pressure] 43 mm[Hg] Normal 35-45 [facility] Comment on above: Order Comment: Speci men Type: VENOUS BLOOD SPECIMEN Ordering Facility: [facility] Address: [address] [place] [address] Performed By: #### 2 4344-4 #### [facility] CLIA [id number] [address] [place] [address] [place] Oxygen adjusted to patient's actual temperature (BldV) [Partial pressure] 43 mmHg Normal 35-45 [facility] Comment on above: Order Comment: Speci men Type: VENOUS BLOOD SPECIMEN Ordering Facility: [facility] Address: [address] [place] [address] Performed By: #### 2 4344-4 #### [facility] CLIA [id number] [address] [address] [place] Oxygen saturation in Blood 76 % Normal 60-85 [facility] Comment on above: Order Comment: Speci men Type: VENOUS BLOOD SPECIMEN Ordering Facility: [facility] Address: [address] [place], [place] [id number] Performed By: #### 2 4344-4 #### [facility] CLIA [id number] [address] [place] [address] [place] Oxyhemoglobin (BldV) [Mass fraction] 74 % Normal 60-85 [facility] Comment on above: Order Comment: Speci men Type: VENOUS BLOOD SPECIMEN Ordering Facility: [facility] Address: [address] [place] [address] Performed By: #### 2 4344-4 #### [facility] CLIA [id number] [address] [place] [address] [place] PATIENT POSITION-ICPET Baseline Normal [facility] Comment on above: Order Comment: Speci men Type: VENOUS BLOOD SPECIMEN Ordering Facility: [facility] Address: [address] [place] [address] Result Comment: Supi ne Performed By: #### 2 4344-4 #### [facility] CLIA [id number] [address] [place] [address] [place] pH (BldV) 7.39 [pH] Normal 7.32-7.42 [facility] Comment on above: Order Comment: Speci men Type: VENOUS BLOOD SPECIMEN Ordering Facility: [facility] Address: [address] [place] [address] Performed By: #### 2 4344-4 #### [facility] CLIA [id number] [address] [place] [address] [place] pH adjusted to patient's actual temperature (BldV) 7.39 Normal 7.32-7.42 [facility] Comment on above: Order Comment: Speci men Type: VENOUS BLOOD SPECIMEN Ordering Facility: [facility] Address: [address] [place] [address] Performed By: #### 2 4344-4 #### [facility] CLIA [id number] [address] [place] [address] [place] Potassium [Moles/Vol] 3.8 mmol/L Normal 3.5-5.0 [facility] Comment on above: Order Comment: Speci men Type: VENOUS BLOOD SPECIMEN Ordering Facility: [facility] Address: [address] [place] [address] Performed By: #### 2 4344-4 #### [facility] CLIA [id number] [address] [place] [address] [place] Sodium [Moles/Vol] 139 mmol/L Normal 136-144 [facility] Comment on above: Order Comment: Speci men Type: VENOUS BLOOD SPECIMEN Ordering Facility: [facility] Address: [address] [place] [address] Performed By: #### 2 4344-4 #### [facility] CLIA [id number] [address] [place] [address] [place] Base excess Calc (BldV) [Moles/Vol] 3 mmol/L High 0 - 2 mmol/L [facility] Calcium Ionized, pH corrected 1.24 mmol/L 1.08 - 1.30 mmol/L [facility] Calcium.ionized (Bld) [Mass/Vol] 1.24 mmol/L 1.08 - 1.30 mmol/L [facility] Carboxyhemoglobin (BldV) [Mass fraction] 0.8 % 0.0 - 2.0 % [facility] CO2 (BldV) [Partial pressure] 48 mm[Hg] 42 - 55 mmHg [facility] CO2 [Moles/Vol] 30 mmol/L High 25 - 29 mmol/L [facility] CO2 adjusted to patient's actual temperature (BldV) [Partial pressure] 48 mmHg 42 - 55 mmHg [facility] Glucose [Mass/Vol] 103 mg/dL 60 - 105 mg/dL [facility] HCO3 (Bld) [Moles/Vol] 28 mmol/L 24 - 28 mmol/L [facility] Hematocrit (Bld) [Volume fraction] 43.1 % 36.0 - 46.0 % [facility] Hemoglobin (Bld) [Mass/Vol] 14.1 g/dL 11.5 - 15.5 g/dL [facility] Lactate [Moles/Vol] 0.9 mmol/L 0.5 - 2. 2 mmol/L [facility] Methemoglobin (Bld) [Mass fraction] 1.0 % 0.0 - 1.5 % [facility] Oxygen (BldV) [Partial pressure] 43 mm[Hg] 35 - 45 mmHg [facility] Oxygen adjusted to patient's actual temperature (dV) [Partial pressure] 43 mmHg 35 - 45 mmHg [facility] Oxygen saturation in Blood 76 % 60 - 85 % [facility] Oxyhemoglobin (BldV) [Mass fraction] 74 % 60 - 85 % [facility] Patient Position Baseline Supine [facility] pH (BldV) 7.39 [pH] 7.32 - 7.42 [facility] pH adjusted to patient's actual temperature (BldV) 7.39 7.32 - 7.42 [facility] Potassium [Moles/Vol] 3.8 mmol/L 3.5 - 5.0 mmol/L [facility] Sodium [Moles/Vol] 139 mmol/L 136 - 144 mmol/L [facility] US VASCULAR (POC) FOR REYNALDO US E ONLYon 07-19-2022 [facility] SARS-CoV-2 RNA Resp Ql KEARA+p robeon 07-17-2022 SARS-CoV-2 (COVID-19) RNA KEARA+probe Ql (Resp) SARS-CoV-2 (Agent of COVID-19) Not Detected by RT-PCR or equivalent method. Normal Not Detected [facility] Comment on above: Order Comment: Speci men Type: VENOUS BLOOD SPECIMEN Ordering Facility: [facility] Address: [address] [place] [address] Result Comment: This test was developed and its performance characteristics determined by [facility] [place]. This test has been authorized by FDA under an Emergency Use Authorization (EUA). This test has been validated in accordance with the FDA's Guidance Document Policy for Diagnostics Testing in Laboratories Certified to Perform High Complexity Testing under CLIA prior to Emergency use Authorization for Coronavirus Disease 2019 during the Public Health Emergency issued on January 24, 2020. Test performed by [facility], [facility] Pathology and Laboratory Medicine [place], [address] [place] [address]. Performed By: #### 2 4344-4 #### [facility] CLIA [id number] [address] [place] [address] CNPNon 07-12-2022 CNPN Telephone (PULMMN) PIPER CLARK ([id number]) 1955 F Date Time Provider Department 07/12/22 ORLANDO SIMPSON During your visit today, we recorded the following information about you: Orlando Simpson MA 07/12/2022 12:37 PM Signed Patient called me to state her grandson tested positive for Covid. Covid order is being placed for her to have one before her RHC on 07/[address] Newell. Orlando Simpson Clinical Safety Intern [facility] [place] Allergies As of Date: 07/12/2022 Noted Allergy Reaction DUST MITES 06/30/2022 7 - Swelling FEATHERS 06/30/2022 7 - Swelling MOLD 06/30/2022 7 - Swelling Date Reviewed: 06/30/2022 Reviewed by: Lorne Newell MD - Fully Assessed Reason for Visit: Patient Question [1907] Prescriptions as of 07/12/2022 - fluticasone-vilanterol (BREO ELLIPTA) 200-25 mcg/dose inhaler [...] 2 Inhalation as instructed four times daily. Problem List As Of Date: 07/12/2022 (None) Encounter Status:Closed by ORLANDO SIMPSON on 07/12/22 [facility] PIPER CLARK ([id number]) 1955 F Date Time Provider Department 07/11/22 ORLANDO SIMPSON During your visit today, we recorded the following information about you: Orlando Simpson MA 07/11/2022 10:22 AM Signed Called patient to confirm her RHC with Dr. Newell on 07/19 at 4pm. No answer, left VM. Orlando Simpson Clinical Safety Intern [facility] [place] Allergies As of Date: 07/11/2022 Noted Allergy Reaction DUST MITES 06/30/2022 7 - Swelling FEATHERS 06/30/2022 7 - Swelling MOLD 06/30/2022 7 - Swelling Date Reviewed: 06/30/2022 Reviewed by: Lorne Newell MD - Fully Assessed Reason for Visit: Appointment Confirmation [1555] Prescriptions as of 07/11/2022 - fluticasone-vilanterol (BREO ELLIPTA) 200-25 mcg/dose inhaler [...] 2 Inhalation as instructed four times daily. Problem List As Of Date: 07/11/2022 (None) Encounter Status:Closed by ORLANDO SIMPSON on 07/11/22 [facility]05-2022 [facility]IE[facility] PIPER CLARK ([id number]) 1955 F Date Time Provider Department 06/05/22 ORLANDO SIMPSON During your visit today, we recorded the following information about you: Orlando Simpson MA 06/05/2022 10:54 AM Signed Called patient to schedule her RHC with Dr. Newell on 07/19/2022 at 4pm. NPO 4 hours pre-procedure. Anticoagulation: None at this time Must have a escort car driver for transportation post procedure. May take other medications as prescribed prior to procedure. Check in at desk G-11 at 3:30pm Orlando Simpson Clinical Safety Intern [facility] [place] Allergies As of Date: 06/05/2022 (Not on File) Date Reviewed: Never Reviewed Reason for Visit: Care Coordination [3491] Problem List As Of Date: 06/05/2022 (None) Encounter Status:Closed by ORLANDO SIMPSON on 06/05/22 [facility]02-20[facility] PIPER CLARK ([id number]) 1955 F Date Time Provider Department 06/02/22 ORLANDO SIMPSON During your visit today, we recorded the following information about you: Orlando Simpson MA 06/02/2022 9:35 AM Signed Called patient to schedule her RHC with Dr. Newell. No answer, left SOFIA. Orlando Simpson Clinical Safety Intern [facility] [place] Allergies As of Date: 06/02/2022 (Not on File) Date Reviewed: Never Reviewed Reason for Visit: Care Coordination [3491] Problem List As Of Date: 06/02/2022 (None) Encounter Status:Closed by ORLANDO SIMPSON on 06/02/22 [facility] 05-18-2022 CNPN Telephone (PMNA11) PIPER CLARK ([id number]) 1955 F Date Time Provider Department 05/18/22 LORNE NEWELL PMNA11 During your visit today, we recorded the following information about you: Devonte Navas 05/18/2022 1:[address] Mitchell Brian contacted Mic Webber MD for a RHC. Dr. Webber does not perform RHC's and has deferred to Dr. Newell. I am requesting recent office notes from office: [phone] Devonte Navas 05/19/2022 8:56 AM Signed Uploaded outside medical records from Dr. Brian. Please allow time for document to appear in [facility]. Devonte Navas 05/19/2022 12:25 PM Signed Requested PFTs, echo report, and CT report from Dr. Brian. Devonte Navas 05/22/2022 2:55 PM Signed Uploaded additional records from Dr. Brian. Please allow time for document to appear in [facility]. Devonte Yosef 05/26/2022 10:42 AM Signed Spoke with patient; she will call [phone] to get registered with [facility]. Allergies As of Date: 05/18/2022 (Not on File) Date Reviewed: Never Reviewed Reason for Visit: Request Outside Medical Records [3575] Received Outside Medical Records [3576] Problem List As Of Date: 05/18/2022 (None) Encounter Status:Closed by DEVONTE NAVAS on 05/18/22 Normal [facility] RIGHT HEART CATH O2 SATURATI ON & CARDIAC OUTPUT [facility] Vital Signs Date Time Vital Sign Value Performing Clinician Facility 04-10-2025 15:20-0400 Heart rate 70 /min Dr. Christy Perea MD Work Phone: [facility] 04-10-2025 15:20-0400 Inhaled oxygen concentration 30 % Dr. Christy Perea MD Work Phone: [facility] 04-10-2025 15:20-0400 Respiratory rate 19 /min Dr. Christy Perea MD Work Phone: [facility] 04-10-2025 15:20-0400 SaO2% (BldA) [Mass fraction] 97 % Dr. Christy Perea MD Work Phone: [facility] 04-10-2025 14:56-0400 Body temperature 98.1 [degF] Dr. Christy Perea MD Work Phone: [facility] 04-10-2025 14:56-0400 Diastolic blood pressure 80 mm[Hg] Dr. Christy Perea MD Work Phone: [facility] 04-10-2025 14:56-0400 Inhaled oxygen flow rate 4 L/min Dr. Christy Perea MD Work Phone: [facility] 04-10-2025 14:56-0400 Systolic blood pressure 140 mm[Hg] Dr. Christy Perea MD Work Phone: 7(989)136-136780 [place] [address] 04-10-2025 04:23-0400 Body mass index (BMI) [Ratio] 45.3 kg/m2 Dr. Christy Perea MD Work Phone: 2(655)052-133480 [place] [address] 04-10-2025 04:23-0400 Body weight 112.[address] Christy Perea MD Work Phone: 3(271)393-727973 [address] 04-09-2025 15:15-0400 Body height 157.[address] Christy Perea MD Work Phone: 4(233)893-466080 [place] [address] 04-08-2025 11:16-0400 Inhaled oxygen flow rate 4 L/min Dr. Christy Perea MD Work Phone: 2(001)640-413980 [place] [address] 04-08-2025 11:16-0400 SaO2% (BldA) [Mass fraction] 100 % Dr. Christy Perea MD Work Phone: 0(926)033-732980 [place] [address] 04-08-2025 10:49-0400 Heart rate 89 /min Dr. Christy Perea MD Work Phone: 0(403)801-499980 [place] [address] 04-08-2025 10:49-0400 Respiratory rate 20 /min Dr. Christy Perea MD Work Phone: [facility] 04-08-2025 09:16-0400 Body temperature 98 [degF] Dr. Christy Perea MD Work Phone: [facility] 04-08-2025 09:16-0400 Diastolic blood pressure 74 mm[Hg] Dr. Christy Perea MD Work Phone: [facility] 04-08-2025 09:16-0400 Systolic blood pressure 126 mm[Hg] Dr. Christy Perea MD Work Phone: [facility] 04-08-2025 05:50-0400 Body mass index (BMI) [Ratio] 45.3 kg/m2 Dr. Christy Perea MD Work Phone: 4(786)780-352080 [place] [address] 04-08-2025 05:50-0400 Body weight 112.[address] Christy Perea MD Work Phone: 1(432)160-654280 [place] [address] 04-08-2025 04:02-0400 Inhaled oxygen concentration 35 % Dr. Christy Perea MD Work Phone: 7(501)435-160980 [place] [address] 04-06-2025 10:07-0400 Body height 157.[address] Christy Perea MD Work Phone: 1(172)248-996974 [place] [address] 04-05-2025 23:41-0400 Body temperature 98.1 [degF] Dr. Christy Perea MD Work Phone: 7(570)225-383974 [place] [address] 04-05-2025 23:41-0400 Diastolic blood pressure 63 mm[Hg] Dr. Christy Perea MD Work Phone: 5(261)368-423980 [place] [address] 04-05-2025 23:41-0400 Heart rate 92 /min Dr. Christy Perea MD Work Phone: 1(974)699-325180 [place] [address] 04-05-2025 23:41-0400 Respiratory rate 16 /min Dr. Christy Perea MD Work Phone: 1(138)829-717480 [place] [address] 04-05-2025 23:41-0400 SaO2% (BldA) [Mass fraction] 98 % Dr. Christy Perea MD Work Phone: [facility] 04-05-2025 23:41-0400 Systolic blood pressure 110 mm[Hg] Dr. Christy Perea MD Work Phone: 1(615)921-913580 [place] [address] 04-05-2025 22:54-0400 Inhaled oxygen concentration 50 % Dr. Christy Perea MD Work Phone: [facility] 04-05-2025 22:54-0400 Inhaled oxygen flow rate 50 L/min Dr. Christy Perea MD Work Phone: 7(495)815-563774 [place] [address] 04-05-2025 20:27-0400 Body height 154.[address] Christy Perea MD Work Phone: 0(290)005-769574 [place] [address] 04-05-2025 20:27-0400 Body mass index (BMI) [Ratio] 49 kg/m2 Dr. Christy Perea MD Work Phone: 4(656)390-734074 [place] [address] 04-05-2025 20:27-0400 Body weight 117.[address] Christy Perea MD Work Phone: 0(670)643-563274 [place] [address] 03-25-2025 14:24-0400 Body temperature 98.2 [degF] Dr. Christy Perea MD Work Phone: 2(332)148-825274 [place] [address] 03-25-2025 14:24-0400 Diastolic blood pressure 69 mm[Hg] Dr. Christy Perea MD Work Phone: 6(948)005-734874 [place] [address] 03-25-2025 14:24-0400 Heart rate 71 /min Dr. Christy Perea MD Work Phone: 3(074)886-026774 [place] [address] 03-25-2025 14:24-0400 Respiratory rate 15 /min Dr. Christy Perea MD Work Phone: 2(285)209-881474 [place] [address] 03-25-2025 14:24-0400 SaO2% (BldA) [Mass fraction] 97 % Dr. Christy Perea MD Work Phone: 0(178)913-774274 [place] [address] 03-25-2025 14:24-0400 Systolic blood pressure 115 mm[Hg] Dr. Christy Perea MD Work Phone: 9(752)775-577074 [place] [address] 03-25-2025 11:48-0400 Inhaled oxygen flow rate 4 L/min Dr. Christy Perea MD Work Phone: 4(623)058-249874 [place] [address] 03-25-2025 11:43-0400 Body height 154.[address] Christy Perea MD Work Phone: 3(664)074-822474 [place] [address] 03-25-2025 11:43-0400 Body mass index (BMI) [Ratio] 46.4 kg/m2 Dr. Christy Perea MD Work Phone: [facility] 03-25-2025 11:43-0400 Body weight 111.[address] Christy Perea MD Work Phone: [facility] 03-24-2025 14:32-0400 Body temperature 97.8 [degF] Dr. Christy Perea MD Work Phone: 6(592)541-869180 [place] [address] 03-24-2025 14:32-0400 Diastolic blood pressure 72 mm[Hg] Dr. Christy Perea MD Work Phone: [facility] 03-24-2025 14:32-0400 Heart rate 78 /min Dr. Christy Perea MD Work Phone: 8(327)764-064680 [place] [address] 03-24-2025 14:32-0400 Inhaled oxygen flow rate 4 L/min Dr. Christy Perea MD Work Phone: 8([phone] [place] [address] 03-24-2025 14:32-0400 Respiratory rate 20 /min Dr. Christy Perea MD Work Phone: [facility] 03-24-2025 14:32-0400 SaO2% (BldA) [Mass fraction] 98 % Dr. Christy Perea MD Work Phone: [facility] 03-24-2025 14:32-0400 Systolic blood pressure 136 mm[Hg] Dr. Christy Perea MD Work Phone: [facility] 03-24-2025 04:43-0400 Body mass index (BMI) [Ratio] 46.5 kg/m2 Dr. Christy Perea MD Work Phone: [facility] 03-24-2025 04:43-0400 Body weight 115.[address] Christy Perea MD Work Phone: [facility] 03-20-2025 12:54-0400 Body height 157.[address] Christy Perea MD Work Phone: 0(489)704-189480 [place] [address] 10-28-2024 08:50-0500 Body height 157.[address] Christy Perea MD Work Phone: 9(491)546-826780 [place] [address] 10-28-2024 08:50-0500 Body mass index (BMI) [Ratio] 43.3 kg/m2 Dr. Christy Perea MD Work Phone: 3(188)552-399574 [place] [address] 10-28-2024 08:50-0500 Body weight 107.[address] Christy Perea MD Work Phone: 1(962)454-490674 [place] [address] 10-28-2024 08:50-0500 Diastolic blood pressure 61 mm[Hg] Dr. Christy Perea MD Work Phone: 4(534)463-145474 [place] [address] 10-28-2024 08:50-0500 Heart rate 68 /min Dr. Christy Perea MD Work Phone: 8(473)001-996374 [place] [address] 10-28-2024 08:50-0500 Respiratory rate 20 /min Dr. Christy Perea MD Work Phone: 2(940)854-892974 [place] [address] 10-28-2024 08:50-0500 Systolic blood pressure 117 mm[Hg] Dr. Christy Perea MD Work Phone: 2(675)809-377974 [place] [address] 02-25-2024 00:20-0400 Body mass index (BMI) [Ratio] 40.8 kg/m2 Dr. Christy Perea Work Phone: 3(810)644-916574 [place] [address] 02-25-2024 00:20-0400 Body weight 101.[address] Christy Perea Work Phone: 3(134)112-412380 [place] [address] 02-19-2024 10:25-0400 Body height 157.[address] Christy Perea Work Phone: 8(735)005-365980 [place] [address] 02-19-2024 10:25-0400 Body mass index (BMI) [Ratio] 40.6 kg/m2 Dr. Christy Perea Work Phone: 7(509)784-997474 [place] [address] 02-19-2024 10:25-0400 Body weight 100.[address] Christy Perea Work Phone: 7(647)655-907974 [place] [address] 02-19-2024 10:25-0400 Diastolic blood pressure 93 mm[Hg] Dr. Christy Perea Work Phone: [facility] 02-19-2024 10:25-0400 Heart rate 101 /min Dr. Christy Perea Work Phone: [facility] 02-19-2024 10:25-0400 Respiratory rate 18 /min Dr. Christy Perea Work Phone: [facility] 02-19-2024 10:25-0400 Systolic blood pressure 157 mm[Hg] Dr. Christy Perea Work Phone: [facility] 01-25-2024 00:24-0500 Body mass index (BMI) [Ratio] 40.8 kg/m2 Dr. Christy Perea Work Phone: [facility] 01-25-2024 00:24-0500 Body weight 101.[address] Christy Perea Work Phone: [facility] 01-21-2024 17:17-0500 Body temperature 98 [degF] Dr. Christy Perea Work Phone: [facility] 01-21-2024 17:17-0500 Diastolic blood pressure 71 mm[Hg] Dr. Christy Perea Work Phone: [facility] 01-21-2024 17:17-0500 Heart rate 72 /min Dr. Christy Perea Work Phone: [facility] 01-21-2024 17:17-0500 Respiratory rate 12 /min Dr. Christy Perea Work Phone: [facility] 01-21-2024 17:17-0500 SaO2% (BldA) [Mass fraction] 98 % Dr. Christy Perea Work Phone: [facility] 01-21-2024 17:17-0500 Systolic blood pressure 148 mm[Hg] Dr. Christy Perea Work Phone: [facility] 01-21-2024 14:56-0500 Body mass index (BMI) [Ratio] 41 kg/m2 Dr. Christy Perea Work Phone: [facility] 01-21-2024 14:56-0500 Body weight 101.[address] Christy Perea Work Phone: [facility] 01-21-2024 14:01-0500 Inhaled oxygen flow rate 5 L/min Dr. Christy Perea Work Phone: [facility] 01-21-2024 13:38-0500 Body height 157.[address] Christy Perea Work Phone: [facility] 01-14-2024 10:08-0500 Body mass index (BMI) [Ratio] 40.8 kg/m2 Dr. Christy Perea Work Phone: [facility] 01-14-2024 10:08-0500 Body weight 101.[address] Christy Perea Work Phone: [facility] 12-18-2023 08:44-0500 Body mass index (BMI) [Ratio] 39.6 kg/m2 [facility] 12-03-2023 18:52-0500 Body mass index (BMI) [Ratio] 39.6 kg/m2 [facility] 11-15-2023 06:43-0500 Body height 157.48 cm [facility] 11-15-2023 06:43-0500 Body mass index (BMI) [Ratio] 39.6 kg/m2 [facility] 11-15-2023 06:43-0500 Body weight 98.42 kg [facility] 11-14-2023 14:51-0500 Diastolic blood pressure 84 mm[Hg] [facility] 11-14-2023 14:51-0500 Systolic blood pressure 160 mm[Hg] [facility] 11-14-2023 14:47-0500 Heart rate 83 /min [facility] 11-14-2023 14:47-0500 SaO2% (BldA) [Mass fraction] 89 % [facility] 07-10-2023 13:27-0400 Inhaled oxygen flow rate 2 L/min Dr. Christy Perea Work Phone: [facility] 07-10-2023 13:25-0400 Body temperature 98.2 [degF] Dr. Christy Perea Work Phone: [facility] 07-10-2023 13:25-0400 Diastolic blood pressure 60 mm[Hg] Dr. Christy Perea Work Phone: [facility] 07-10-2023 13:25-0400 Heart rate 86 /min Dr. Christy Perea Work Phone: [facility] 07-10-2023 13:25-0400 Respiratory rate 16 /min Dr. Christy Perea Work Phone: [facility] 07-10-2023 13:25-0400 SaO2% (BldA) [Mass fraction] 96 % Dr. Christy Perea Work Phone: [facility] 07-10-2023 13:25-0400 Systolic blood pressure 140 mm[Hg] Dr. Christy Perea Work Phone: [facility] 07-08-2023 18:52-0400 Body height 158.[address] Christy Perea Work Phone: [facility] 07-08-2023 18:52-0400 Body mass index (BMI) [Ratio] 39.9 kg/m2 Dr. Christy Perea Work Phone: [facility] 07-08-2023 18:52-0400 Body weight 100.[address] Christy Perea Work Phone: [facility] 09-28-2022 12:37-0400 Body height 160.02 cm [facility] Work Phone: 07-19-2022 16:04-0400 Body height 157.5 cm Pulm Rm Work Phone: [facility] 07-19-2022 16:04-0400 Body weight 88.2 kg Pulm Rm Work Phone: [facility] 03-31-2022 13:38-0400 Body temperature 97.4 [degF] Dr. Christy Perea Work Phone: [facility] Work Phone: 03-31-2022 13:38-0400 Diastolic blood pressure 74 mm[Hg] Dr. Christy Perea Work Phone: [facility] Work Phone: 03-31-2022 13:38-0400 Heart rate 106 /min Dr. Christy Perea Work Phone: [facility] Work Phone: 03-31-2022 13:38-0400 Respiratory rate 16 /min Dr. Christy Perea Work Phone: [facility] Work Phone: 03-31-2022 13:38-0400 SaO2% (BldA) [Mass fraction] 91 % Dr. Christy Perea Work Phone: [facility] Work Phone: 03-31-2022 13:38-0400 Systolic blood pressure 152 mm[Hg] Dr. Christy Perea Work Phone: [facility] Work Phone: Encounters Encounter Date Encounter Type Care Provider Facility Start: 04-30-2025 ambulatory Mitchell Chavez ty:[facility] Start: 04-21-2025 End: 04-21-[address] Christy Perea MD Work Phone: [facility] Work Phone: Start: 04-21-2025 End: 04-21-2025 Patient encounter procedure Becca Dillard DRILL DOCTOR-C -Laboratory Work Phone: Start: 04-21-2025 End: 04-21-2025 ambulatory Becca Dillard NP Facility:[facility] Start: 04-10-2025 Non-patient / Non-visit Dr. Lindsay Galvan MD -[facility] Work Phone: Start: 04-09-2025 Non-patient / Non-visit Dr. Ken Vieyra MD -[facility] Work Phone: Start: 04-08-2025 Non-patient / Non-visit Dr. Ken Vieyra MD -[facility] Work Phone: Start: 04-07-2025 Non-patient / Non-visit Dr. Ken Vieyra MD -[facility] Work Phone: Start: 04-06-2025 Non-patient / Non-visit Dr. Ken Vieyra MD -[facility] Work Phone: Start: 04-05-2025 ambulatory Ken Vieyra Facility: [facility] Start: 04-05-2025 End: 04-10-2025 Evaluation and management of inpatient Dr. Orlando Bolden -[facility] Work Phone: Start: 04-03-2025 End: 04-03-[address] Christy Perea MD Work Phone: [facility] Work Phone: Start: 04-03-2025 End: 04-03-2025 Patient encounter procedure Becca Dillard DRILL DOCTOR-C -Laboratory Work Phone: Start: 04-03-2025 End: 04-03-2025 ambulatory Becca Dillard NP Facility:[facility] Start: 03-31-2025 End: 03-31-[address] Christy Perea MD Work Phone: [facility] Work Phone: Start: 03-31-2025 End: 03-31-[address] Genia Chappell MD -Laboratory, [facility] Start: 03-30-2025 End: 03-31-[address] Christy Perea MD Work Phone: [facility] Work Phone: Start: 03-30-2025 End: 03-30-[address] Genia Chappell MD -Radiology, [facility] Work Phone: Start: 03-30-2025 End: 03-30-2025 ambulatory Mitchell Brian Facility:[facility] Start: 03-25-2025 End: 03-25-2025 Emergency department patient visit Dr. Jose Armando Willoughby -Emergency Department Work Phone: Start: 03-24-2025 Non-patient / Non-visit Dr. Antonette Lizarraga MD -[facility] Work Phone: Start: 03-23-2025 Non-patient / Non-visit Dr. Antonette Lizarraga MD -[facility] Work Phone: Start: 03-22-2025 Non-patient / Non-visit Dr. Fannie Rider [facility] Work Phone: Start: 03-21-2025 Non-patient / Non-visit Dr. Fannie Rider [facility] Work Phone: Start: 03-20-2025 Non-patient / Non-visit Dr. Fannie Rider [facility] Work Phone: Start: 03-20-2025 ambulatory Chandni Courtney Facility:[facility] Start: 03-20-2025 Non-patient / Non-visit Dr. Chandni solitario MD -[facility] Start: 03-19-2025 ambulatory Orlando Méndez ty:[facility] Start: 03-19-2025 End: 03-24-2025 Evaluation and management of inpatient Dr. Cindi Lizarraga MD -Progressive Care Unit Work Phone: Start: 03-18-2025 End: 03-18-2025 Patient encounter procedure Becca Dillard DRILL DOCTOR-C -Laboratory Work Phone: Start: 03-18-2025 End: 03-18-2025 ambulatory Becca Dillard NP Facility:[facility] Start: 02-05-2025 End: 02-05-[address] Christy Perea MD Work Phone: [facility] Work Phone: Start: 02-05-2025 End: 02-05-[address] Christy Perea MD -Laboratory, [facility] Start: 02-05-2025 End: 02-05-2025 ambulatory Christy S Sybiliff Facility:[facility] Start: 12-25-2024 End: 12-25-2024 Patient encounter procedure Azael Ashton DRILL DOCTOR-C -Laboratory, [facility] Work Phone: Start: 12-25-2024 End: 12-25-2024 ambulatory Azael Ashton DRILL DOCTOR Facility:[facility] Start: 12-04-2024 End: 12-04-[address] Brennan Ansari MD -[facility] Start: 12-04-2024 End: 12-04-2024 ambulatory Christy Perea Facility:[facility] Start: 11-05-2024 End: 11-05-2024 ambulatory Christy Perea Facility:[facility] Start: 11-05-2024 End: 11-05-[address] Curry Taylor MD -Physical Therapy Work Phone: Start: 10-28-2024 End: 10-28-[address] Chandni Courtney MD -[facility] Work Phone: Start: 10-28-2024 End: 10-28-2024 ambulatory Chandni Sherwin Facility:[facility] Start: 10-01-2024 End: 10-02-2024 ambulatory Christy Perea Facility:[facility] Start: 09-30-2024 End: 09-30-2024 ambulatory Christy Perea Facility:[facility] Start: 09-08-2024 End: 09-08-2024 ambulatory Mitchell Brian Facility:[facility] Start: 09-01-2024 End: 09-01-2024 ambulatory Christy S Brit Facility:[facility] Start: 08-18-2024 End: 08-19-2024 ambulatory Christy S Brit Facility:[facility] Start: 08-17-2024 End: 08-17-2024 Emergency department patient visit Chandni Courtney Facility:[facility] Start: 05-16-2024 End: 05-16-2024 ambulatory Chandni Sherwin Facility:[facility] Start: 05-07-2024 End: 05-07-2024 ambulatory Chandni Sherwin Facility:[facility] Start: 03-31-2024 Non-patient / Non-visit Dr. Carol Perea Work Phone: [facility] Start: 03-28-2024 End: 03-28-[address] Christy Perea Work Phone: [facility] Work Phone: Start: 03-28-2024 End: 03-28-[address] Christy Perea Work Phone: [facility]-Laboratory Work Phone: Start: 03-21-2024 End: 03-25-[address] Christy Perea Work Phone: [facility] Work Phone: Start: 03-21-2024 End: 03-25-[address] Christy Perea Work Phone: [facility]-Pulmonary Rehab Work Phone: Start: 03-21-[address] Christy castro Work Phone: [facility]-Pulmonary Rehab Work Phone: Start: 03-20-2024 Non-patient / Non-visit Dr. Carol Perea Work Phone: [facility] Start: 03-20-2024 End: 03-20-[address] Christy Perea Work Phone: [facility] Work Phone: Start: 03-20-2024 End: 03-20-[address] Christy Perea Work Phone: [facility]-Cardiovascula r Services Work Phone: Start: 02-22-2024 End: 02-24-[address] Christy Perea Work Phone: [facility] Work Phone: Start: 02-22-2024 End: 02-24-[address] Christy Perea Work Phone: [facility]-Pulmonary Rehab Work Phone: Start: 02-19-2024 End: 02-19-[address] Christy Perea Work Phone: [facility] Work Phone: Start: 01-23-2024 End: 01-24-[address] Christy Perea Work Phone: [facility] Work Phone: Start: 01-23-2024 End: 01-24-[address] Christy Perea Work Phone: [facility]-Pulmonary Rehab Work Phone: Start: 01-21-2024 End: 01-21-2024 Emergency department patient visit Dr. Christy Perea Work Phone: [facility]-Emergency Department Work Phone: Start: 12-26-2023 End: 12-26-2023 ambulatory [facility] Work Phone: Start: 12-26-2023 End: 12-26-2023 Discharged Recurring [facility]-Pulmonary Rehab Work Phone: Start: 12-17-2023 Registered Recurring [facility]-Pulmonary Rehab Work Phone: Start: 12-12-2023 End: 12-12-2023 ambulatory [facility] Work Phone: Start: 12-12-2023 End: 12-12-2023 Patient encounter procedure [facility]-Radiology, [facility] Work Phone: Start: 12-03-2023 Registered Recurring [facility]-Pulmonary Rehab Work Phone: Start: 11-29-2023 End: 11-29-2023 ambulatory [facility] Work Phone: Start: 11-29-2023 End: 11-29-2023 Patient encounter procedure [facility] Work Phone: Start: 11-15-2023 Non-patient / Non-visit Dr. Carol Perea Work Phone: [facility] Work Phone: Start: 11-14-2023 End: 11-14-2023 ambulatory [facility] Work Phone: Start: 11-14-2023 End: 11-14-2023 Patient encounter procedure [facility]-Pulmonary Rehab Work Phone: Start: 10-01-2023 End: 10-01-2023 Patient encounter procedure [facility]-Outpatient Breast Imaging Work Phone: Start: 09-06-2023 End: 09-06-[address] Christy Perea Work Phone: [facility] Work Phone: Start: 09-06-2023 End: 09-06-[address] Christy Perea Work Phone: [facility]-Cat Scan, [facility] Work Phone: Start: 07-10-2023 Non-patient / Non-visit Dr. Carol Perea Work Phone: [facility] Work Phone: Start: 07-09-2023 Non-patient / Non-visit Dr. Carol Perea Work Phone: [facility] Work Phone: Start: 07-08-2023 Non-patient / Non-visit Dr. Carol Perea Work Phone: [facility] Work Phone: Start: 07-08-2023 End: 08-15-2023 Evaluation and management of inpatient Dr. 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 - [employer] Start: 07-19-2022 ambulatory Lorne saenz MD Work Phone: Pulmonary Medicine Start: 07-19-2022 End: 07-19-2022 Patient encounter procedure Pulm Main [id number] Procedure Rm Work Phone: Pulmonary Medicine Comment on above: Stage 3 severe COPD by GOLD classification (HCC) (Primary Dx) Start: 07-11-2022 Telephone encounter Orlando Simpson MA Pu lmonary Medicine Comment on above: Appointment Confirma tion Start: 06-30-2022 End: 06-30-2022 ambulatory Lorne Newell MD Work Phone: Pulmonary Medicine Comment on above: Stage 3 severe COPD by GOLD classification (HCC); Abnormal echocardiogram Start: 06-30-2022 End: 06-30-2022 Telemedicine consultation with patient Lorne Newell MD Work Phone: [facility] Start: 06-27-2022 Chart abstracting Naa Croft APRN.SHORT FILLER BUNCH MACHINE OPERATOR Work Phone: Pulmonary Medicine Comment on above: Abstract Start: 06-05-2022 ambulatory Orlando Simpson MA Pulmonary Medicine Comment on above: [facility] 07/19 at 4pm Start: 06-05-2022 E-mail encounter fro m caregiver Orlando Simpson MA [facility] Start: 06-05-2022 Telephone encounter Orlando Simpson MA Pu lmonary Medicine Comment on above: Care Coordination Start: 06-02-2022 Telephone encounter Orlando Simpson MA Pu lmonary Medicine Comment on above: Care Coordination Start: 05-19-2022 Orders Only Rachel Seaman APRN.PHOTOVOLTAIC POWER SYSTEMS ENGINEER Work Phone: Pulmonary Medicine Comment on above: Other secondary pulm onary hypertension (HCC) Start: 05-18-2022 Telephone encounter Lorne Newell MD Work Phone: Pulmonary Medicine Comment on above: Request Outside [facility] Records Start: 03-31-2022 End: 03-31-[address] Christy Perea Work Phone: [facility] Start: 03-30-2022 Non-patient / Non-visit Dr. Carol Perea Work Phone: [facility] Start: 03-30-2022 End: 03-30-[address] Christy Perea Work Phone: [facility]-Cat Scan, [facility] Procedures Date Procedure Procedure Detail Performing Clinician Start: 04-10-[address] Christy Perea MD Work Phone: Start: 04-08-[address] Christy Perea MD Work Phone: Start: 04-08-2025 Serum inorganic phos phate measurement Dr. Christy Perea MD Work Phone: Start: 04-07-2025 Serum inorganic phos phate measurement Dr. Christy Perea MD Work Phone: Start: 04-06-[address] Christy Perea MD Work Phone: Start: 04-06-[address] Christy Perea MD Work Phone: Start: 04-06-2025 Carbon dioxide measu rement, partial pressure Dr. Christy Perea MD Work Phone: Start: 04-06-2025 Gases blood o2 satur ation only direct diallo Dr. Christy Perea MD Work Phone: Start: 04-06-2025 Measurement of parti al pressure of oxygen in blood Dr. Christy Perea MD Work Phone: Start: 04-06-[address] Christy Perea MD Work Phone: Start: 04-05-2025 CT of chest, abdomen and pelvis without contrast Dr. Christy Perea MD Work Phone: Start: 04-05-2025 Plain chest X-ray Dr. Ana Perea MD Work Phone: Start: 04-05-[address] Christy Perea MD Work Phone: Start: 04-05-[address] Christy castro MD Work Phone: Start: 03-30-2025 X-ray of chest, PA a nd lateral views Dr. Christy Perea MD Work Phone: Start: 03-25-2025 Plain chest X-ray Dr. Ana Perea MD Work Phone: Start: 03-25-[address] Christy Perea MD Work Phone: Start: 03-24-[address] Christy Perea MD Work Phone: Start: 03-23-2025 Gram stain microscopy D jatinder Perea MD Work Phone: Start: 03-23-[address] l culture Dr. Christy Perea MD Work Phone: Start: 03-21-2025 Serum inorganic phos phate measurement Dr. Christy Perea MD Work Phone: Start: 03-19-2025 Plain chest X-ray Dr. Ana Perea MD Work Phone: Start: 12-25-[address] Christy castro MD Work Phone: Start: 12-04-2024 Plain X-ray of shoulder Dr. Christy Perea MD Work Phone: Start: 03-20-2024 Cardiovascular stres s test using pharmacologic stress agent Dr. Christy Perea Work Phone: Start: 01-21-2024 Plain chest X-ray Dr. Ana Perea Work Phone: Start: 12-12-2023 Plain chest X-ray Start: 10-01-2023 Screening mammography Start: 09-06-[address] Christy chung Work Phone: Start: 07-08-2023 Plain chest X-ray Dr. Ana Perea Work Phone: Start: 07-08-2023 Coronavirus COVID-[address] Christy Perea Work Phone: Start: 07-08-2023 Investigation of transfusion reaction Dr. Christy Perea Work Phone: Start: 07-08-[address] culture Dr. Christy Perea Work Phone: Start: 09-28-2022 Dual energy X-ray absorptiometry Start: 09-28-2022 Screening mammography Start: 07-19-2022 Gases blood ph direc t diallo xcpt pulse oximitry Lorne Newell MD Work Phone: Start: 07-19-2022 US VASCULAR (POC) FO R REYNALDO USE ONLY Lorne Newell MD Work Phone: Start: 07-19-2022 Right heart cath o2 saturation & cardiac output Lorne Newell MD Work Phone: Start: 03-30-2022 CT of chest without contrast Dr. Christy Perea Work Phone: Plan of Treatment Date Care Activity Detail Author Start: 04-10-2025 Patient discharge [facility] Start: 04-09-2025 Provision of activit y privileges [facility] Start: 04-08-2025 Referral to service [facility] Start: 04-07-2025 [facility] Start: 04-06-2025 End: 04-07-2025 [facility] Start: 04-06-2025 Care regimes management [facility] Start: 04-06-2025 Notification of physician [facility] Start: 04-06-2025 Consultation [facility] Start: 04-06-2025 Continuous pulse oximetry [facility] Start: 04-06-2025 Following clinical pathway protocol [facility] Start: 04-06-2025 Assessment of risk o f venous thromboembolism [facility] Start: 04-06-2025 Catheterization of vein [facility] Start: 04-06-2025 Insertion of cathete r into peripheral vein [facility] [facility] Start: 04-06-2025 Measuring intake and output [facility] Start: 04-06-2025 Oxygen therapy [facility] Start: 04-06-2025 Patient referral to dietitian [facility] Start: 04-06-2025 Providing care accor ding to standard [facility] Start: 04-06-2025 Provision of activit y privileges [facility] Start: 04-06-2025 Referral to occupati onal therapist [facility] Start: 04-06-2025 Referral to service [facility] Start: 04-06-2025 [facility] Start: 04-06-2025 Dual pressure sponta neous ventilation support [facility] Start: 04-06-2025 Inhalation therapy procedure [facility] Start: 04-05-2025 Verification routine [facility] Start: 04-05-2025 Admission procedure [facility] Start: 04-05-2025 CT of chest, abdomen and pelvis without contrast CT Chest, Abd, Pelvis [facility] Start: 04-05-2025 Hospital admission, emergency, from emergency room, medical nature [facility] Start: 04-05-2025 [facility] Start: 04-05-2025 End: 04-06-2025 [facility] Start: 04-05-2025 Bacteria identified in Blood by Culture Blood Culture [facility] Start: 04-05-2025 Blood culture Blood Culture [facility] Start: 04-05-2025 Continuous positive airway pressure ventilation treatment [facility] Start: 03-25-2025 [facility] Start: 03-24-2025 Patient discharge [facility] Start: 03-23-2025 Respiratory microbia l culture Respiratory Culture [facility] Start: 03-20-2025 Referral to service [facility] Start: 03-20-2025 Inhalation therapy procedure [facility] Start: 03-19-2025 End: 03-20-2025 [facility] Start: 03-19-2025 Following clinical pathway protocol [facility] Start: 03-19-2025 Assessment of risk o f venous thromboembolism [facility] Start: 03-19-2025 Catheterization of vein [facility] Start: 03-19-2025 Continuous positive airway pressure ventilation treatment [facility] Start: 03-19-2025 Insertion of cathete r into peripheral vein [facility] Start: 03-19-2025 Measuring intake and output [facility] Start: 03-19-2025 Oxygen therapy [facility] Start: 03-19-2025 Providing care accor ding to [facility] Start: 03-19-2025 Provision of activit y privileges [facility] Start: 03-19-2025 Referral to occupati onal therapist [facility] Start: 03-19-2025 Referral to service [facility] Start: 03-19-2025 Verification routine [facility] Start: 03-19-2025 Admission procedure [facility] Start: 03-19-2025 Patient referral to dietitian [facility] Start: 01-21-2024 [facility] Start: 01-21-2024 [facility] Start: 07-10-2023 Patient discharge [facility] Start: 07-08-2023 End: 07-09-2023 [facility] Start: 07-08-2023 Ambulation without limitation [facility] Start: 07-08-2023 Assessment of risk o f venous thromboembolism [facility] Start: 07-08-2023 Incentive spirometry [facility] Start: 07-08-2023 Inhalation therapy procedure [facility] Start: 07-08-2023 Insertion of cathete r into peripheral vein [facility] Start: 07-08-2023 Providing care accor ding to [facility] Start: 07-08-2023 Oxygen therapy [facility] Start: 07-08-2023 Following clinical pathway protocol [facility] Start: 07-08-2023 Verification routine [facility] Start: 07-08-2023 Admission procedure [facility] Start: 07-08-2023 Respiratory microbia l culture Respiratory Culture [facility] Start: 07-27-2022 Influenza vaccination INFLUENZA (#1) [facility] Start: 11-26-2021 ADVANCE DIRECTIVE DISCUSSION ADVANCE DIRECTIVE DISCUSSION [facility] Start: 2018 BONE DENSITY BONE DENSITY [facility] Start: 2018 PNEUMOCOCCAL: 65+ (1 - PCV) PNEUMOCOCCAL: 65+ (1 - PCV) [facility] Start: 2003 Influenza vaccination LUNG CANCER [facility] Start: 2003 SHINGRIX VACCINE (1 of 2) GRIFFIN GRIX VACCINE (1 of 2) [facility] Start: 1998 COLOGUARD (FIT-DNA) COLOGUARD (FIT-D NA) [facility] Start: 1998 Colonoscopy COLONOSCOPY [facility] Start: 1998 COLORECTAL CANCER SCREENING COLORECTAL CANCER SCREENING [facility] Start: [address] COLONOGRAPHY [facility] Start: 1998 DIABETES SCREEN DIABETES SCREEN [facility] Start: 1998 FECAL OCCULT BLOOD FECAL OCCULT BLOO D [facility] Start: 1998 LIPID SCREEN LIPID SCREEN [facility] Start: 1998 SIGMOIDOSCOPY SIGMOIDOSCOPY [facility] Start: 1993 Mammography MAMMOGRAM [facility] Start: 1983 Zoledronic acid therapy ALPHA- 1 ANTITRYPSIN DEFICIENCY SCREENING [facility] Start: 1972 Urine microalbumin profile DTAP,TDAP,TD (1 - Tdap) [facility] Start: 1971 ANNUAL PCP TEAM DRUG PURCHASER FAVIAN DISEASE VISIT ANNUAL PCP TEAM CHRONIC DISEASE VISIT [facility] Start: 1971 HEPATITIS C SCREENING HEPATITIS C [facility] Start: 1971 SPIROMETRY SPIROMETRY [facility] Start: 1965 Adult depression screening assessment DEPRESSION SCREENING [facility] Start: 1959 PNEUMOCOCCAL: 65+ (1 - PCV) PNEUMOCOCCAL: 65+ (1 - PCV) [facility] Start: 02-09-1954 COVID-19 VACCINE (#1) COVID-19 VACCI NE (#1) [facility] Anion gap in Serum o r Plasma [facility] BUN/Creatinine ratio [facility] Calcium [Mass/volume ] in Serum or Plasma [facility] Carbon dioxide, tota l [Moles/volume] in Central venous blood [facility] Creatinine [Mass/vol ume] in Serum or Plasma [facility] Erythrocyte mean corpuscular volume determination [facility] Erythrocyte mean corpuscular volume determination [facility] Erythrocyte mean corpuscular volume determination [facility] Erythrocyte mean corpuscular volume determination [facility] Glucose [Mass/volume ] in Serum or Plasma [facility] Hematocrit [Volume Fraction] of Blood [facility] Hematocrit [Volume Fraction] of Blood [facility] Hematocrit [Volume Fraction] of Blood [facility] Hematocrit [Volume Fraction] of Blood [facility] Hemoglobin [Mass/vol ume] in Blood [facility] Hemoglobin [Mass/vol ume] in Blood [facility] Hemoglobin [Mass/vol ume] in Blood [facility] Hemoglobin [Mass/vol ume] in Blood [facility] Leukocytes [#/volume ] in Blood [facility] Leukocytes [#/volume ] in Blood [facility] Leukocytes [#/volume ] in Blood [facility] Leukocytes [#/volume ] in Blood [facility] Magnesium measurement [facility] Mean corpuscular hemoglobin concentration determination [facility] Mean corpuscular hemoglobin concentration determination [facility] Mean corpuscular hemoglobin concentration determination [facility] Mean corpuscular hemoglobin concentration determination [facility] Mean corpuscular hemoglobin determination [facility] Mean corpuscular hemoglobin determination [facility] Mean corpuscular hemoglobin determination [facility] Mean corpuscular hemoglobin determination [facility] Measurement of renal function [facility] Neutrophil count [facility] Neutrophil count [facility] Neutrophil count [facility] Neutrophil count [facility] Neutrophil percent differential count [facility] Neutrophil percent differential count [facility] Neutrophil percent differential count [facility] Neutrophil percent differential count [facility] NM Heart Views W str ess and W radionuclide IV [facility] Patient Education [facility] Work Phone: Patient referral [facility] Work Phone: Platelets [#/volume] in Blood [facility] Platelets [#/volume] in Blood [facility] Platelets [#/volume] in Blood [facility] Platelets [#/volume] in Blood [facility] Potassium measurement [facility] End: 06-18-2023 Pulmonary ventilation & perfusion imaging NM LUNG VENT / PERF VQ Radiology Routine Other secondary pulmonary hypertension (HCC) 1 Occurrences starting 05/19/2022 until 06/18/2023 [facility] Work Phone: Comment on above: 1 Occurrences starti ng 05/19/2022 until 06/18/2023 Red blood cell count [facility] Red blood cell count [facility] Red blood cell count [facility] Red blood cell count [facility] Red cell distributio n width determination [facility] Red cell distributio n width determination [facility] Red cell distributio n width determination [facility] Red cell distributio n width determination [facility] Serum chloride measurement [facility] Sodium measurement [facility] Troponin T.cardiac [Mass/volume] in Serum or Plasma by High sensitivity method [facility] Urea nitrogen [Mass/volume] in Serum or Plasma [facility] XR ARTERY CATHETER ( POC) FOR REYNALDO USE ONLY XR ARTERY CATHETER (POC) FOR REYNALDO USE ONLY Imaging Procedures Routine Stage 3 severe COPD by GOLD classification (HCC) Ordered: 07/19/2022 [facility] Work Phone: Comment on above: Ordered: 07/19/2022 [facility] Immunizations Immunization Date Immunization Notes Care Provider Feliberto doty 01-24-2021 COVID-19 vaccine, fu ll dose (MODERNA) 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 Christy Perea Work Phone: [facility] Payers Date Payer Category Payer Self-pay [id number] 2024 Private Health Insurance [facility] [id number] 2021 Medicare AETNA MEDICARE A ETNA MEDICARE PPO [id number] 2021-Present [phone] [address] [place] [address] PPO [id number] 2021 Medicare AETNA MEDICARE A ETNA MEDICARE PPO [id number] 2021-Present [phone] [address] [place] [address] PPO [id number] Unknown [id number] Unknown [id number] 2.16.840.1.252122.3.579.2.4 62 Unknown [id number] 2.16.840.1.485717.3.579.2.4 62 Unknown [id number] 2.16.840.1.525101.3.579.2.4 62 Unknown [id number] 2.16.840.1.925347.3.579.2.4 62 Unknown [id number] 2.16.840.1.955526.3.579.2.4 62 Unknown [id number] 2.16.840.1.146045.3.579.2.4 62 Unknown [id number] 2.16.840.1.768447.3.579.2.4 62 Unknown [id number] 2.16.840.1.046010.3.579.2.4 62 Unknown [id number] 2.16.840.1.122378.3.579.2.4 62 Unknown [id number] 2.16.840.1.118304.3.579.2.4 62 Unknown [id number] 2.16.840.1.589535.3.579.2.4 62 Unknown [id number] 2.16.840.1.824101.3.579.2.4 62 Unknown [id number] 2.16.840.1.665510.3.579.2.4 62 Unknown [id number] 2.16.840.1.075956.3.579.2.4 62 Unknown [id number] 2.16.840.1.551581.3.579.2.4 62 Unknown [id number] 2.16.840.1.352397.3.579.2.4 62 Unknown [id number] 2.16.840.1.285452.3.579.2.4 62 Unknown [id number] 2.16.840.1.576367.3.579.2.4 62 Unknown [id number] 2.16.840.1.022639.3.579.2.4 62 Unknown [id number] 2.16.840.1.276178.3.579.2.4 62 Unknown [id number] 2.16.840.1.489347.3.579.2.4 62 Unknown [id number] 2.16.840.1.051903.3.579.2.4 62 Unknown [id number] 2.16.840.1.492546.3.579.2.4 62 Unknown [id number] 2.16.840.1.279755.3.579.2.4 62 Unknown [id number] 2.16.840.1.061181.3.579.2.4 62 Unknown [id number] 2.16.840.1.538219.3.579.2.4 62 Unknown [id number] 2.16.840.1.916330.3.579.2.4 62 Unknown [id number] 2.16.840.1.207823.3.579.2.4 62 Unknown [id number] 2.16.840.1.761863.3.579.2.4 62 Unknown [id number] 2.16.840.1.988028.3.579.2.4 62 Unknown [id number] 2.16.840.1.494324.3.579.2.4 62 Unknown [id number] 2.16.840.1.871393.3.579.2.4 62 Unknown [id number] 2.16.840.1.978349.3.579.2.4 62 Unknown [id number] 2.16.840.1.653397.3.579.2.4 62 Unknown [id number] 2.16.840.1.639417.3.579.2.4 62 Unknown [id number] 2.16.840.1.595695.3.579.2.4 62 Unknown [id number] 2.16.840.1.199958.3.579.2.4 62 Unknown [id number] 2.16.840.1.512969.3.579.2.4 62 Unknown [id number] 2.16.840.1.764448.3.579.2.4 62 Social History Date Type Detail Facility Start: 03-31-2022 End: 02-19-2024 Tobacco smoking status DEIS Unknown if ever smoked [facility] Start: 1955 Sex Assigned At Female [facility] Start: 1955 Sex Assigned At Not on file [facility] Start: 05-21-2022 End: 07-19-2022 Exposure to SARS-CoV-2 (event) Not sure [facility] Start: 05-27-2022 End: 06-06-2022 Exposure to SARS-CoV-2 (event) Unable to assess [facility] Start: 06-30-2022 End: 04-05-2025 Tobacco smoking status NHIS Ex-smoker [facility] Work Phone: End: 06-30-2013 History of tobacco use Current smoker [facility] Work Phone: Start: 06-30-2022 Cigarettes smoked current (pack per day) - Reported 1.5 [facility] Start: 06-30-2022 Alcohol intake Ex-drinker (finding) [facility] End: 06-30-2013 History of tobacco use Cigarette Smoker [facility] Work Phone: Start: 02-16-2025 End: 03-24-2025 Sex Female (finding) [facility] Goals Date Patient Goal Desired Activity /State Functional Status Date Assessment Result Facility 04-10-2025 Functional status Ambulates [facility] Work Phone: 04-08-2025 Functional status Ambulates [facility] Work Phone: 03-24-2025 Functional status Bathroom Privilege [facility] Work Phone: 07-10-2023 Functional status Ambulates [facility] Work Phone: Mental Status Date Assessment Result Facility 04-10-2025 Cognitive function Voice/Name [facility] Work Phone: 04-08-2025 Cognitive function Voice/Name [facility] Work Phone: 03-24-2025 Cognitive function Voice/Name [facility] Work Phone: 01-21-2024 Cognitive function Level Of Cons ciousness Awake;Alert;Appropriate [facility] Work Phone: 07-09-2023 Cognitive function Voice/Name [facility] Work Phone: Clinical Notes 05-18-2022 to 04-10-2025 Note Date & Type Note Facility 04-10-2025 Note [facility] 04-10-2025 Discharge summary Note Date/Time April 10, 2025 2:54p m [facility] Medical Records Department [address] [place] [address] Instructions for Home/Discharge Instructions 04/10/25 1425 MR#: [id number] Acct: [id number] Name: PIPER CLARK Rep #:[id number] : 1955 69 From: Geoff mora MD PCP: Dr. Genia Chappell MD Status:ADM IN Discharge Instructions Diet Discharge Diet: Low fat / Low cholesterol DC O2, CPAP, BIPAP needs Home O2 Discharge instructions: No Dressing / Incision Discharge Activity: Return to Normal Activity Dressing / Incision Call your doctor if you observe: Fever of 101 or Higher, Shortness of breath, Dizziness, Fainting spells, Swelling in the ankles, Chest pain and Increased palpitations (irregular heartbeat) Follow Up Care Test Results: Test results from this visit will be discussed in further detail at your follow-up appointment, if applicable. Discharge Plan Admission Admit Date/Time: 04/05/25 23:26 Attending Provider: Geoff Galvan Primary Care Provider: Genia Chappell Consulting Providers: Orlando Bolden; Mitchell Brian V; Ken Vieyra Discharge Orders/Prescriptions Prescriptions: New prednisone 10 mg tablet 10 mg PO DAILY Qty: 32 0RF Rx Instructions: Take 4 tablets daily for 3 days then 3 tablets daily for 3 days then 2 tablets daily for 3 days then 1 tablet daily for 3 days then half tablet daily for 4 days levofloxacin 500 mg tablet 500 mg PO DAILY Qty: 7 0RF Continued diltiazem HCl [Tiadylt ER] 240 mg capsule,extended release 24 hr 240 mg PO DAILY potassium chloride 20 mEq tablet extended release 20 meq PO DAILY Qty: 90 3RF Patient Comments: WHEN PT TAKES FUROSEMIDE, SHE TAKES POTASSIUM WELL, CURRENTLY ONCE IN AM, AND ONCE AT NOON duloxetine 60 mg capsule,delayed release(DR/EC) 60 mg PO DAILY montelukast 10 MG tablet 10 mg PO QHS albuterol sulfate 90 mcg/actuation HFA aerosol inhaler 2 puff Inhalation Q4H PRN (Reason: Shortness Of Breath) Nurtec ODT 75 mg tablet,disintegrating 75 mg PO DAILY PRN (Reason: migraine) Patient Comments: TAKE 1 (ONE) TABLET BY MOUTH DAILY IF NEEDED FOR MIGRAINE Trelegy Ellipta 200-62.5-25 mcg blister with device 1 inh inhalation DAILY fluticasone propionate [24 Hour Allergy Relief] 50 mcg/actuation spray,suspension 2 spray intranasal QHS Rx Instructions: administer into each nostril furosemide 40 mg tablet 40 mg PO BID Rx Instructions: TAKE 1 TAB IN MORNING, AND 1 TAB IN AFTERNOON. metoprolol tartrate 50 mg tablet 50 mg PO BID Qty: 180 3RF Eliquis 5 mg tablet 5 mg PO BID Qty: 60 11RF Discontinued furosemide [Lasix] 40 mg tablet 40 mg PO BID Qty: 60 0RF prednisone 20 mg tablet 40 mg PO DAILY Qty: 10 0RF Referrals / Follow Up: Genia Chappell MD [Primary Care Provider] - Within 1 Week Mitchell Brian MD [Med Staff - Active Staff] - Within 2 Weeks Disposition Disposition (needs filled in before D/C Order can be placed): Home, Self Care 04/10/25 1454<Electronically signed by Geoff Galvan MD>Geoff Galvan MD CC: Dr. Genia Chappell MD; Dr. Orlando Bolden DO; Dr. Ken Vieyra MD; Dr. Mitchell Brian MD ~ Signed [facility] Work Phone: 1(939) 403-616405-16-2025 Discharge summary [facility] Medical Records Department [address] [place] [address] Instructions for Home/Discharge Instructions 04/10/25 1425 MR#: [id number] Acct: [id number] Name: PIPER CLARK Rep #:[id number] : 1955 69 From: Geoff mora MD PCP: Dr. Genia Chappell MD Status:ADM IN Discharge Instructions Diet Discharge Diet: Low fat / Low cholesterol DC O2, CPAP, BIPAP needs Home O2 Discharge instructions: No Dressing / Incision Discharge Activity: Return to Normal Activity Dressing / Incision Call your doctor if you observe: Fever of 101 or Higher, Shortness of breath, Dizziness, Fainting spells, Swelling in the ankles, Chest pain and Increased palpitations (irregular heartbeat) Follow Up Care Test Results: Test results from this visit will be discussed in further detail at your follow- up appointment, if applicable. Discharge Plan Admission Admit Date/Time: 04/05/25 23:26 Attending Provider: Geoff Galvan Primary Care Provider: Genia Chappell Consulting Providers: Orlando Bolden; Mitchell Brian V; Ken Vieyra Discharge Orders/Prescriptions Prescriptions: New prednisone 10 mg tablet 10 mg PO DAILY Qty: 32 0RF Rx Instructions: Take 4 tablets daily for 3 days then 3 tablets daily for 3 days then 2 tablets daily for 3 days then 1 tablet daily for 3 days then half tablet daily for 4 days levofloxacin 500 mg tablet 500 mg PO DAILY Qty: 7 0RF Continued diltiazem HCl [Tiadylt ER] 240 mg capsule,extended release 24 hr 240 mg PO DAILY potassium chloride 20 mEq tablet extended release 20 meq PO DAILY Qty: 90 3RF Patient Comments: WHEN PT TAKES FUROSEMIDE, SHE TAKES POTASSIUM WELL, CURRENTLY ONCE IN AM, AND ONCE AT NOON duloxetine 60 mg capsule,delayed release(DR/EC) 60 mg PO DAILY montelukast 10 MG tablet 10 mg PO QHS albuterol sulfate 90 mcg/actuation HFA aerosol inhaler 2 puff Inhalation Q4H PRN (Reason: Shortness Of Breath) Nurtec ODT 75 mg tablet,disintegrating 75 mg PO DAILY PRN (Reason: migraine) Patient Comments: TAKE 1 (ONE) TABLET BY MOUTH DAILY IF NEEDED FOR MIGRAINE Trelegy Ellipta 200-62.5-25 mcg blister with device 1 inh inhalation DAILY fluticasone propionate [24 Hour Allergy Relief] 50 mcg/actuation spray,suspension 2 spray intranasal QHS Rx Instructions: administer into each nostril furosemide 40 mg tablet 40 mg PO BID Rx Instructions: TAKE 1 TAB IN MORNING, AND 1 TAB IN AFTERNOON. metoprolol tartrate 50 mg tablet 50 mg PO BID Qty: 180 3RF Eliquis 5 mg tablet 5 mg PO BID Qty: 60 11RF Discontinued furosemide [Lasix] 40 mg tablet 40 mg PO BID Qty: 60 0RF prednisone 20 mg tablet 40 mg PO DAILY Qty: 10 0RF Referrals / Follow Up: Genia Chappell MD [Primary Care Provider] - Within 1 Week Mitchell Brian MD [Med Staff - Active Staff] - Within 2 Weeks Disposition Disposition (needs filled in before D/C Order can be placed): Home, Self Care 04/10/25 1454Geoff Galvan MD CC: Dr. Genia Chappell MD; Dr. Orlando Bolden DO; Dr. Ken Vieyra MD; Dr. Mitchell Brian MD ~ Signed [facility]05-15-2025 Progress note Author Ken Vieyra [facility] Note Date/Time April 09, 2025 2:54p [facility] Medical Records Department [address] [place] [address] Progress Note - Hospitalist 04/09/25 1445 MR#: [id number] Acct: [id number] Name: PIPER CLARK Rep #:[id number] : 1955 69 From: Ken Hughes PCP: Dr. Genia Chappell MD Status:ADM IN Location: [place] [address] Reason for Visit Reason for Visit: Diagnoses Elevated white blood cell count, unspecified (04/05/25) Morbid (severe) obesity due to excess calories (04/05/25) Morbid (severe) obesity with alveolar hypoventilation (04/05/25) Acidosis, unspecified (04/05/25) Obstructive sleep apnea (adult) (pediatric) (04/05/25) Other pericardial effusion (noninflammatory) (04/05/25) Chronic atrial fibrillation, unspecified (04/05/25) Chronic obstructive pulmonary disease with (acute) exacerbation (04/05/25) Acute respiratory failure with hypoxia (04/05/25) Localized edema (04/05/25) Other specified abnormal findings of blood chemistry (04/05/25) Body mass index [BMI] 45.0-49.9, adult (04/05/25) [facility]it[facility] (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 anticoagulants (04/05/25) Objective Data Objective Data Vital Signs: Vital Signs Temp Pulse Resp BP Pulse Ox O2 Del Method O2 Flow Rate 97.8 F 83 15 150/79 H 97 Nasal Cannula 6 04/09/25 08:21 04/09/25 08:45 04/09/25 08:21 04/09/25 08:21 04/09/25 13:25 04/09/25 08:27 04/09/25 13:25 FiO2 35 04/09/25 07:19 Oxygen Flow Rate (L/min) 6 Oxygen Delivery Method Nasal Cannula Weight: 247 lb 12.793 oz Body Mass Index (BMI) 45.3 Intake & Output: Intake and Output for Last 24 Hours 04/07/25 04/08/25 04/09/25 23:59 23:59 23:59 Intake Total 653.9 / 893.9 1568.63 / 2068.63 550 / 550 Output Total 2100 / 2850 2350 / 2850 850 / 850 Balance -1446.1 / -1956.1 -781.37 / -781.37 -300 / -300 Lab / Micro Data 04/09/25 05:28 04/09/25 05:28 Labs: Laboratory Results - last 24 hr 04/08/25 17:04: POC Glucose 81 04/08/25 21:51: POC Glucose 239 H 04/09/25 05:28: WBC 20.6 H, RBC 4.34, Hgb 12.5, Hct 39.9, MCV 91.9, MCH 28.8, MCHC 31.3 L, RDW Std Deviation 52.8 H, RDW Coeff of Beena 15.9 H, Plt Count 259, MPV 10.0, Immature Gran % (Auto) 0.700, Neut % (Auto) 94.1 H, Lymph % (Auto) 1.8 L, Gilmer % (Auto) 3.3, Eos % (Auto) 0.0, Baso % (Auto) 0.1, Absolute Neuts (auto) 19.4 H, Absolute Lymphs (auto) 0.37 L, Nucleated RBC % 0, Sodium 139, Potassium 4.0, Chloride 91 L, Carbon Dioxide 40.6 H, Anion Gap 7, BUN 32 H, Creatinine 0.67 L, Estim Creat Clear Calc 76.39, Est GFR (MDRD) Non-Af 93, BUN/Creatinine Ratio 46.9 H, Glucose 134 H, Calcium 9.1 04/09/25 08:24: POC Glucose 157 H 04/09/25 11:33: POC Glucose 277 H Micro: Microbiology 04/05/25 22:25 Blood Culture (Wb) - Anticubital Left Blood Culture - Preliminary No growth in 48 hours. 04/05/25 22:30 Blood Culture (Wb) - Anticubital Right Blood Culture - Preliminary No growth in 48 hours. 04/06/25 05:45 Mucosa - Nasopharyngeal Respiratory Panel (PCR) - Final Rhythm Strip Rhythm Strip: A-fib Rate: 97 Ectopy: None Physical Exam Narrative Seen and examined. Patient feels better in regard to shortness of breath. Not much by physical movement. On intermittent BiPAP at night. Dyspnea much better. Physical exam: General: Alert, Oriented x3, Cooperative, morbid obesity BMI 46.4 kg per square HEENT: Atraumatic, PERRLA, EOMI, Normocephalic. Oral: Deep oropharyngeal ClinOleic B/ Neck: Supple, No JVD, Negative Carotid Bruits Chest wall/Lungs: Air entry severely diminished in all lung samaniego. On 6 L of oxygen. Intermittent BiPAP at night. Cardiovascular: A-fib, rate controlled normal S1,S2, No M/G/R Abdomen: Bowel Sounds Present, Soft, Non Tender, Non-Distended : No dysuria. No renal angle tenderness. No suprapubic tenderness. Extremities: Bilateral 2+ above-knee edema better than before capillary Refill Less than 3 Seconds Skin: No rashes, No breakdown Musculoskeletal: No Tenderness to Palpation of Joints or Extremities. ROM restricted due to edema Neurological: Cranial nerves II-XII grossly intact, DTR 2+/4. No acute focal neurological deficit. Psych/Mental Status: flat affect Assessment & Plan Assessment/Plan (1) Acute exacerbation of chronic obstructive pulmonary disease (COPD): (2) Pericardial effusion: (3) Leukocytosis: QUALIFIERS: Leukocytosis type: unspecified Qualified Code(s): D72.829 - Elevated white blood cell count, unspecified (4) Lactic acidosis: (5) Acute hypoxic respiratory failure: (6) Bilateral edema of lower extremity: (7) Elevated brain natriuretic peptide (BNP) level: (8) Morbid obesity with BMI of 45.0-49.9, adult: (9) Obesity hypoventilation syndrome: (10) WINIFRED (obstructive sleep apnea): (11) Atrial fibrillation: QUALIFIERS: Atrial fibrillation type: unspecified chronic Qualified Code(s): I48.20 - Chronic atrial fibrillation, unspecified (12) Chronic anticoagulation: PLAN: Plan 69-year-old female was admitted with dyspnea at rest, shortness of breath prolonging for about 1 month, normally 4 L at rest and 6 L on exertion, on CPAP at night. 1. Aute exacerbation of COPD: Was discharged on 03/24/2025 about 2 weeks ago. Patient is being managed on scheduled bronchodilator, IV Solu-Medrol, Mucinex, incentive spirometry and Pep. 5/14: Continue treatment. Blood culture negative for 48 hours. Respiratory panel negative. IV Zosyn changed to IV ceftriaxone. No focal consolidation identified on CT chest. High leukocytosis due to high dose of Solu-Medrol. IV Solu-Medrol decreased from 60 mg IV every 6 hourly to 40 mg every 8 hourly 04/09: Discussed with the kettle hand Dr. Mitchell Brian. Currently on BiPAP / at night. Wanted BiPAP at home with discharge setting 12/11 at 5 L with hospital bed. Possible anticipate discharge in next 1 to 2 days. Plan for steroid weaning with prednisone 40 mg daily for 4 days, 30 mg for 4 days 20 mg for 4 days then 10 mg for 4 days. WBC count/leukocytosis getting better on lowering dose of IV Solu-Medrol. Solu-Medrol changed to prednisone 40 mg daily from tomorrow a.m. 2. Acute HFpEF diagnosed 2 weeks ago but most likely she has acute on chronic HFrEF with severe pulmonary hypertension: Heart failure core measures including intake and output, fluid restriction less than 1500 mL, daily weight monitoring, kidney and electrolytes monitoring. Continue Lasix, 40 mg IV adjusted by patient's hemodynamics Echo 03/19/2025. Interpretation Summary The study was technically difficult. The LV systolic function is normal. EF is 65 %. There is Mild focal posterior mitral annular calcification. Right ventricular systolic pressure estimated to be 50 mmHg. Small (<1.0 cm) pericardial effusion. 04/08: Creatinine is 0.82. Bicarb 43.6. discontinue the IV Lasix drip. . Furosemide 40 mg IV twice daily. 04/09: BUN/creatinine 32/0.67. Continue IV diuretic. Bicarb 40.6, getting better. Electrolytes are maintained in normal range except chloride. CT on admission reported about 1.4 cm pericardial effusion which was seen on the echo also. Therefore no new finding 3. Chronic A-fib: At rest heart rate is controlled on Eliquis and Cardizem as well as metoprolol 04/08: Heart rate is controlled 04/09: Heart rate is controlled 4. Hypertension: 5. Dyslipidemia: Fasting profile ordered. Blood pressure is controlled 6. Hypokalemia: K2.8. Anion gap 9. Bicarb 44. IV KCl is being replaced. Serum magnesium and phosphorus ordered. DVT prophylaxis - Patient is already on apixaban for #5 which will be continued. Clinical Impression(s) from Imaging Studies Chest X-Ray 04/05/25 21:20 IMPRESSION: No Acute Findings. Reading Location: [facility] Chest/Abdomen/Pelvis CT 04/05/25 23:58 IMPRESSION: Pericardial effusion is present measuring around 1.4 cm axial 88, clinically correlate. Small posterior layering left pleural effusion. Bilateral atelectasis without focal consolidation identified. No evidence of acute intra-abdominal process on noncontrast imaging. Diverticulosis without diverticulitis. Reading Location: [facility] Microbiology Past 72 Hours 04/05/25 22:25 Blood Culture (Wb) - Anticubital Left Blood Culture - Preliminary No growth in 48 hours. 04/05/25 22:30 Blood Culture (Wb) - Anticubital Right Blood Culture - Preliminary No growth in 48 hours. Laboratory Results 04/08/25 17:04: POC Glucose 81 04/08/25 21:51: POC Glucose 239 H 04/09/25 05:28: WBC 20.6 H, RBC 4.34, Hgb 12.5, Hct 39.9, MCV 91.9, MCH 28.8, MCHC 31.3 L, RDW Std Deviation 52.8 H, RDW Coeff of Beena 15.9 H, Plt Count 259, MPV 10.0, Immature Gran % (Auto) 0.700, Neut % (Auto) 94.1 H, Lymph % (Auto) 1.8 L, Gilmer % (Auto) 3.3, Eos % (Auto) 0.0, Baso % (Auto) 0.1, Absolute Neuts (auto) 19.4 H, Absolute Lymphs (auto) 0.37 L, Nucleated RBC % 0, Sodium 139, Potassium 4.0, Chloride 91 L, Carbon Dioxide 40.6 H, Anion Gap 7, BUN 32 H, Creatinine 0.67 L, Estim Creat Clear Calc 76.39, Est GFR (MDRD) Non-Af 93, BUN/Creatinine Ratio 46.9 H, Glucose 134 H, Calcium 9.1 04/09/25 08:24: POC Glucose 157 H 04/09/25 11:33: POC Glucose 277 H Charges/Coding Visit Charges Inpatient E&M: 55548 Subs Hosp L2 04/09/25 1458 <Electronically signed by Ken Vieyra MD> Cosigner Signature (if applicable): CC: ~ Signed [facility] Work Phone: [phone] Progress note [facility] Medical Records Department [address] [place] [address] Progress Note - Hospitalist 04/09/25 1445 MR#: [id number] Acct: [id number] Name: PIPER CLARK Rep #:[id number] : 1955 69 From: Ken Hughes PCP: Dr. Genia Chappell MD Status:ADM IN Location: [place] [address] Reason for Visit Reason for Visit: Diagnoses Elevated white blood cell count, unspecified (04/05/25) Morbid (severe) obesity due to excess calories (04/05/25) Morbid (severe) obesity with alveolar hypoventilation (04/05/25) Acidosis, unspecified (04/05/25) Obstructive sleep apnea (adult) (pediatric) (04/05/25) Other pericardial effusion (noninflammatory) (04/05/25) Chronic atrial fibrillation, unspecified (04/05/25) Chronic obstructive pulmonary disease with (acute) exacerbation (04/05/25) Acute respiratory failure with hypoxia (04/05/25) Localized edema (04/05/25) Other specified abnormal findings of blood chemistry (04/05/25) Body mass index [BMI] 45.0-49.9, adult (04/05/25) penitentiary (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 anticoagulants (04/05/25) Objective Data Objective Data Vital Signs: Vital Signs Temp Pulse Resp BP Pulse Ox O2 Del Method O2 Flow Rate 97.8 F 83 15 150/79 H 97 Nasal Cannula 6 04/09/25 08:21 04/09/25 08:45 04/09/25 08:21 04/09/25 08:21 04/09/25 13:25 04/09/25 08:27 04/09/25 13:25 FiO2 35 04/09/25 07:19 Oxygen Flow Rate (L/min) 6 Oxygen Delivery Method Nasal Cannula Weight: 247 lb 12.793 oz Body Mass Index (BMI) 45.3 Intake & Output: Intake and Output for Last 24 Hours 04/07/25 04/08/25 04/09/25 23:59 23:59 23:59 Intake Total 653.9 / 893.9 1568.63 / 2068.63 550 / 550 Output Total 2100 / 2850 2350 / 2850 850 / 850 Balance -1446.1 / -1956.1 -781.37 / -781.37 -300 / -300 Lab / Micro Data 04/09/25 05:28 04/09/25 05:28 Labs: Laboratory Results - last 24 hr 04/08/25 17:04: POC Glucose 81 04/08/25 21:51: POC Glucose 239 H 04/09/25 05:28: WBC 20.6 H, RBC 4.34, Hgb 12.5, Hct 39.9, MCV 91.9, MCH 28.8, MCHC 31.3 L, RDW Std Deviation 52.8 H, RDW Coeff of Beena 15.9 H, Plt Count 259, MPV 10.0, Immature Gran % (Auto) 0.700, Neut % (Auto) 94.1 H, Lymph % (Auto) 1.8 L, Gilmer % (Auto) 3.3, Eos % (Auto) 0.0, Baso % (Auto) 0.1, Absolute Neuts (auto) 19.4 H, Absolute Lymphs (auto) 0.37 L, Nucleated RBC % 0, Sodium 139, Potassium 4.0, Chloride 91 L, Carbon Dioxide 40.6 H, Anion Gap 7, BUN 32 H, Creatinine 0.67 L, Estim Creat Clear Calc 76.39, Est GFR (MDRD) Non-Af 93, BUN/Creatinine Ratio 46.9 H, Glucose 134 H, Calcium 9.1 04/09/25 08:24: POC Glucose 157 H 04/09/25 11:33: POC Glucose 277 H Micro: Microbiology 04/05/25 22:25 Blood Culture (Wb) - Anticubital Left Blood Culture - Preliminary No growth in 48 hours. 04/05/25 22:30 Blood Culture (Wb) - Anticubital Right Blood Culture - Preliminary No growth in 48 hours. 04/06/25 05:45 Mucosa - Nasopharyngeal Respiratory Panel (PCR) - Final Rhythm Strip Rhythm Strip: A-fib Rate: 97 Ectopy: None Physical Exam Narrative Seen and examined. Patient feels better in regard to shortness of breath. Not much by physical movement. On intermittent BiPAP at night. Dyspnea much better. Physical exam: General: Alert, Oriented x3, Cooperative, morbid obesity BMI 46.4 kg per square HEENT: Atraumatic, PERRLA, EOMI, Normocephalic. Oral: Deep oropharyngeal ClinOleic B/ Neck: Supple, No JVD, Negative Carotid Bruits Chest wall/Lungs: Air entry severely diminished in all lung samaniego. On 6 L of oxygen. Intermittent BiPAP at night. Cardiovascular: A-fib, rate controlled normal S1,S2, No M/G/R Abdomen: Bowel Sounds Present, Soft, Non Tender, Non-Distended : No dysuria. No renal angle tenderness. No suprapubic tenderness. Extremities: Bilateral 2+ above-knee edema better than before capillary Refill Less than 3 Seconds Skin: No rashes, No breakdown Musculoskeletal: No Tenderness to Palpation of Joints or Extremities. ROM restricted due to edema Neurological: Cranial nerves II-XII grossly intact, DTR 2+/4. No acute focal neurological deficit. Psych/Mental Status: flat affect Assessment & Plan Assessment/Plan (1) Acute exacerbation of chronic obstructive pulmonary disease (COPD): (2) Pericardial effusion: (3) Leukocytosis: QUALIFIERS: Leukocytosis type: unspecified Qualified Code(s): D72.829 - Elevated white blood cell count, unspecified (4) Lactic acidosis: (5) Acute hypoxic respiratory failure: (6) Bilateral edema of lower extremity: (7) Elevated brain natriuretic peptide (BNP) level: (8) Morbid obesity with BMI of 45.0-49.9, adult: (9) Obesity hypoventilation syndrome: (10) WINIFRED (obstructive sleep apnea): (11) Atrial fibrillation: QUALIFIERS: Atrial fibrillation type: unspecified chronic Qualified Code(s): I48.20 - Chronic atrial fibrillation, unspecified (12) Chronic anticoagulation: PLAN: Plan 69-year-old female was admitted with dyspnea at rest, shortness of breath prolonging for about 1 month, normally 4 L at rest and 6 L on exertion, on CPAP at night. 1. Aute exacerbation of COPD: Was discharged on 03/24/2025 about 2 weeks ago. Patient is being managed on scheduled bronchodilator, IV Solu-Medrol, Mucinex, incentive spirometry and Pep. 04/08: Continue treatment. Blood culture negative for 48 hours. Respiratory panel negative. IV Zosynchanged to IV ceftriaxone. No focal consolidation identified on CT chest. High leukocytosis due to high dose of Solu-Medrol. IV Solu-Medrol decreased from 60 mg IV every 6 hourly to 40 mg every 8 hourly 04/09: Discussed with the kettle hand Dr. Mitchell Brian. Currently on BiPAP 12/11 at night. Wanted BiPAP at home with discharge setting 12/11 at 5 L with hospital bed. Possible anticipate dischargein next 1 to 2 days. Plan for steroid weaning with prednisone 40 mg daily for 4 days, 30 mg for 4 days 20 mg for 4 days then 10 mg for 4 days. WBC count/leukocytosis getting better on lowering dose of IV Solu-Medrol. Solu-Medrol changed to prednisone 40 mg daily from tomorrow a.m. 2. Acute HFpEF diagnosed 2 weeks ago but most likely she has acute on chronic HFrEF with severe pulmonary hypertension: Heart failure core measures including intake and output, fluid restriction lessthan 1500 mL, daily weight monitoring, kidney and electrolytes monitoring. Continue Lasix, 40 mg IVadjusted by patient's hemodynamics Echo 03/19/2025. Interpretation Summary The study was technically difficult. The LV systolic function is normal. EF is 65 %. There is Mild focal posterior mitral annular calcification. Right ventricular systolic pressure estimated to be 50 mmHg. Small (<1.0 cm) pericardial effusion. 04/08: Creatinine is 0.82. Bicarb 43.6. discontinue the IV Lasix drip. . Furosemide 40 mg IV twice daily. 04/09: BUN/creatinine 32/0.67. Continue IV diuretic. Bicarb 40.6, getting better. Electrolytes are maintained in normal range except chloride. CT on admission reported about 1.4 cm pericardial effusion which was seen on the echo also. Therefore no new finding 3. Chronic A-fib: At rest heart rate is controlled on Eliquis and Cardizem as well as metoprolol 04/08: Heart rate is controlled 04/09: Heart rate is controlled 4. Hypertension: 5. Dyslipidemia: Fasting profile ordered. Blood pressure is controlled 6. Hypokalemia: K2.8. Anion gap 9. Bicarb 44. IV KCl is being replaced. Serum magnesium and phosphorus ordered. DVT prophylaxis - Patient is already on apixaban for #5 which will be continued. Clinical Impression(s) from Imaging Studies Chest X-Ray 04/05/25 21:20 IMPRESSION: No Acute Findings. Reading Location: [facility] Chest/Abdomen/Pelvis CT 04/05/25 23:58 IMPRESSION: Pericardial effusion is present measuring around 1.4 cm axial 88, clinically correlate. Small posterior layering left pleural effusion. Bilateral atelectasis without focal consolidation identified. No evidence of acute intra-abdominal process on noncontrast imaging. Diverticulosis without diverticulitis. Reading Location: [id number] Microbiology Past 72 Hours 04/05/25 22:25 Blood Culture (Wb) - Anticubital Left Blood Culture - Preliminary No growth in 48 hours. 04/05/25 22:30 Blood Culture (Wb) - Anticubital Right Blood Culture - Preliminary No growth in 48 hours. Laboratory Results 04/08/25 17:04: POC Glucose 81 04/08/25 21:51: POC Glucose 239 H 04/09/25 05:28: WBC 20.6 H, RBC 4.34, Hgb 12.5, Hct 39.9, MCV 91.9, MCH 28.8, MCHC 31.3 L, RDW Std Deviation 52.8 H, RDW Coeff of Beena 15.9 H, Plt Count 259, MPV 10.0, Immature Gran % (Auto) 0.700, Neut % (Auto) 94.1 H, Lymph % (Auto) 1.8 L, Gilmer % (Auto) 3.3, Eos % (Auto) 0.0, Baso % (Auto) 0.1, Absolute Neuts (auto) 19.4 H, Absolute Lymphs (auto) 0.37 L, Nucleated RBC % 0, Sodium 139, Potassium 4.0, Chloride 91 L, Carbon Dioxide 40.6 H, Anion Gap 7, BUN 32 H, Creatinine 0.67 L, Estim Creat Clear Calc 76.39, Est GFR (MDRD) Non-Af 93, BUN/Creatinine Ratio 46.9 H, Glucose 134 H, Calcium 9.1 04/09/25 08:24: POC Glucose 157 H 04/09/25 11:33: POC Glucose 277 H Charges/Coding Visit Charges Inpatient E&M: 83891 Subs Hosp L2 04/09/25 1454 Cosigner Signature (if applicable): CC: ~ Signed [facility]05-15-2025 Progress note Author Mitchell Brian [facility] Note Date/Time April 09, 2025 8:18a m [facility] Medical Records Department [address] [place] [address] Progress Note 04/09/25 0808 MR#: [id number] Acct: [id number] Name: PIPER CLARK Rep #:[id number] 1 : 1955 69 From: Mitchell norton MD PCP: Dr. Genia Chappell MD Status:ADM IN Location: [place] [address] Subjective Subjective Up out of bed yesterday. not walking halls yet, no chest pain Objective Data Objective Data Vital Signs: Vital Signs Temp Pulse Resp BP Pulse Ox O2 Del Method O2 Flow Rate 96.0 F L 63 18 142/77 H 97 Bi-pap 4 04/09/25 03:27 04/09/25 03:27 04/09/25 03:27 04/09/25 03:27 04/09/25 03:27 04/09/25 05:00 04/08/25 22:00 FiO2 35 04/09/25 04:10 Oxygen Flow Rate (L/min) 4 Oxygen Delivery Method Bi-pap Weight: 112.4 kg Body Mass Index (BMI) 45.3 Intake & Output: Intake and Output for Last 24 Hours 04/07/25 04/08/25 04/09/25 23:59 23:59 23:59 Intake Total 653.9 / 893.9 1568.63 / 2068.63 500 / 500 Output Total 2100 / 2850 2350 / 2850 850 / 850 Balance -1446.1 / -1956.1 -781.37 / -781.37 -350 / -350 Lab / Micro Data Lab results narrative: wbc incr from steroids,, dry now 04/09/25 05:28 04/09/25 05:28 Labs: Laboratory Results - last 24 hr 04/08/25 05:40: Phosphorus 4.4, Magnesium 2.5 H 04/08/25 09:01: POC Glucose 175 H 04/08/25 11:40: POC Glucose 289 H 04/08/25 17:04: POC Glucose 81 04/08/25 21:51: POC Glucose 239 H 04/09/25 05:28: WBC 20.6 H, RBC 4.34, Hgb 12.5, Hct 39.9, MCV 91.9, MCH 28.8, MCHC 31.3 L, RDW Std Deviation 52.8 H, RDW Coeff of Beena 15.9 H, Plt Count 259, MPV 10.0, Immature Gran % (Auto) 0.700, Neut % (Auto) 94.1 H, Lymph % (Auto) 1.8L, Gilmer % (Auto) 3.3, Eos % (Auto) 0.0, Baso % (Auto) 0.1, Absolute Neuts (auto)19.4 H, Absolute Lymphs (auto) 0.37 L, Nucleated RBC % 0, Sodium 139, Potassium 4.0, Chloride 91 L, Carbon Dioxide 40.6 H, Anion Gap 7, BUN 32 H, Creatinine 0.67 L, Estim Creat Clear Calc 76.39, Est GFR (MDRD) Non-Af 93, BUN/Creatinine Ratio 46.9 H, Glucose 134 H, Calcium 9.1 Micro: Microbiology 04/05/25 22:25 Blood Culture (Wb) - Anticubital Left Blood Culture - Preliminary No growth in 48 hours. 04/05/25 22:30 Blood Culture (Wb) - Anticubital Right Blood Culture - Preliminary No growth in 48 hours. 04/06/25 05:45 Mucosa - Nasopharyngeal Respiratory Panel (PCR) - Final Rhythm Strip Rhythm Strip: A-fib Rate: 97 Ectopy: None Physical Exam Const oriented x3 and no apparent distress General Appearance: comfortable; Negative for cooperative Orientation / Consciousness: awake HEENT normocephalic, head/scalp atraumatic, external ears normal and moist oral mucousmembranes Nose: no nasal discharge Mouth: oral and palatal mucosa normal and lips normal Eyes EOMs intact bilaterally Neck full ROM Lymph Lymphatic: no lymphadenopathy noted Chest Chest Narrative: Poor air mvt, no wheeze, long exp phase, some inc work breathing without Bipap. Resp no retractions Effort and Inspection: able to speak in complete sentences Auscultation: clear to auscultation bilaterally Cardio regular rate, regular rhythm, S1 normal heart sound, S2 normal heart sound, no murmurs, no rub, no gallops, no clicks, no JVD, peripheral pulses 2+ throughout and diaphoretic Cardio Narrative: Irregular rhythm, no tachycardia, no murmur no S3 GI normal to inspection, nondistended, normoactive bowel sounds no CVA tenderness Back/Spine no CVA tenderness and normal ROM Extremity normal to inspection Extremity Narrative: 1 pl edema Neuro oriented x3 and moves all extremities Assessment & Plan Assessment/Plan (1) Pericardial effusion: PLAN: The patient had a good diuresis There is no chest pain She has a preserved ejection fraction but significant pulm hypertension Follow-up echocardiography warranted, outpatient less tacycardia. less sob. will monitor clinically (2) WINIFRED (obstructive sleep apnea): PLAN: The patient does not have BiPAP at home has high flow oxygen at home Currently using 18/12 Tolerates the pressure No aerophagia Slept well last night with BiPAP well D/c settings will be 5 liter, Bipap 18/12 (3) Acute exacerbation of chronic obstructive pulmonary disease (COPD): PLAN: agree with steroid wean for d/c tomorrow Prednisone 40 mg 4 d, 30 mg 4 d 20 mg 4 d 10 mg 4 day (4) Acute hypoxic respiratory failure: PLAN: TV on 18 are 450s. pt is very comfortable mask leak so mask is being used too tight causing nasal abrasion will shift to home mask tomorrow on d/c The case is discussed with Dr. Crowe this morning possible d/c tomorrow 04/09/2518 <Electronically signed by Mitchell Brian MD> Mitchell Brian MD Cosigner Signature (if applicable): CC: ~ Signed [facility] Work Phone: 1([phone] 180-757705-15-2025 Progress note [facility] Medical Records Department [address] [place] [address] Progress Note 04/09/25807 MR#: [id number] Acct: [id number] Name: BENITOPIPER Rep #:[id number] 1 : 1955 69 From: Mitchell norton MD PCP: Dr. Genia Chappell MD Status:ADM IN Location: [place] [address] 1 Subjective Subjective Up out of bed yesterday. not walking halls yet, no chest pain Objective Data Objective Data Vital Signs: Vital Signs Temp Pulse Resp BP Pulse Ox O2 Del Method O2 Flow Rate 96.0 F L 63 18 142/77 H 97 Bi-pap 4 04/09/25 03:27 04/09/25 03:27 04/09/25 03:27 04/09/25 03:27 04/09/25 03:27 04/09/25 05:00 04/08/25 22:00 FiO2 35 04/09/25 04:10 Oxygen Flow Rate (L/min) 4 Oxygen Delivery Method Bi-pap Weight: 112.4 kg Body Mass Index (BMI) 45.3 Intake & Output: Intake and Output for Last 24 Hours 04/07/25 04/08/25 04/09/25 23:59 23:59 23:59 Intake Total 653.9 / 893.9 1568.63 / 2068.63 500 / 500 Output Total 2100 / 2850 2350 / 2850 850 / 850 Balance -1446.1 / -1956.1 -781.37 / -781.37 -350 / -350 Lab / Micro Data Lab results narrative: wbc incr from steroids,, dry now 04/09/25 05:28 04/09/25 05:28 Labs: Laboratory Results - last 24 hr 04/08/25 05:40: Phosphorus 4.4, Magnesium 2.5 H 04/08/25 09:01: POC Glucose 175 H 04/08/25 11:40: POC Glucose 289 H 04/08/25 17:04: POC Glucose 81 04/08/25 21:51: POC Glucose 239 H 04/09/25 05:28: WBC 20.6 H, RBC 4.34, Hgb 12.5, Hct 39.9, MCV 91.9, MCH 28.8, MCHC 31.3 L, RDW Std Deviation 52.8 H, RDW Coeff of Beena 15.9 H, Plt Count 259, MPV 10.0, Immature Gran % (Auto) 0.700, Neut % (Auto) 94.1 H, Lymph % (Auto) 1.8L, Gilmer % (Auto) 3.3, Eos % (Auto) 0.0, Baso % (Auto) 0.1, Absolute Neuts (auto)19.4 H, Absolute Lymphs (auto) 0.37 L, Nucleated RBC % 0, Sodium 139, Potassium 4.0, Chloride 91 L, Carbon Dioxide 40.6 H, Anion Gap 7, BUN 32 H, Creatinine 0.67 L, Estim Creat ClearCalc 76.39, Est GFR (MDRD) Non-Af 93, BUN/Creatinine Ratio 46.9 H, Glucose 134 H, Calcium 9.1 Micro: Microbiology 04/05/25 22:25 Blood Culture (Wb) - Anticubital Left Blood Culture - Preliminary No growth in 48 hours. 04/05/25 22:30 Blood Culture (Wb) - Anticubital Right Blood Culture - Preliminary No growth in 48 hours. 04/06/25 05:45 Mucosa - Nasopharyngeal Respiratory Panel (PCR) - Final Rhythm Strip Rhythm Strip: A-fib Rate: 97 Ectopy: None Physical Exam Const oriented x3 and no apparent distress General Appearance: comfortable; Negative for cooperative Orientation / Consciousness: awake HEENT normocephalic, head/scalp atraumatic, external ears normal and moist oral mucousmembranes Nose: no nasal discharge Mouth: oral and palatal mucosa normal and lips normal Eyes EOMs intact bilaterally Neck full ROM Lymph Lymphatic: no lymphadenopathy noted Chest Chest Narrative: Poor air mvt, no wheeze, long exp phase, some inc work breathing without Bipap. Resp no retractions Effort and Inspection: able to speak in complete sentences Auscultation: clear to auscultation bilaterally Cardio regular rate, regular rhythm, S1 normal heart sound, S2 normal heart sound, no murmurs, no rub, no gallops, no clicks, no JVD, peripheral pulses 2+ throughout and diaphoretic Cardio Narrative: Irregular rhythm, no tachycardia, no murmur no S3 GI normal to inspection, nondistended, normoactive bowel sounds no CVA tenderness Back/Spine no CVA tenderness and normal ROM Extremity normal to inspection Extremity Narrative: 1 pl edema Neuro oriented x3 and moves all extremities Assessment & Plan Assessment/Plan (1) Pericardial effusion: PLAN: The patient had a good diuresis There is no chest pain She has a preserved ejection fraction but significant pulm hypertension Follow-up echocardiography warranted, outpatient less tacycardia. less sob. will monitor clinically (2) WINIFRED (obstructive sleep apnea): PLAN: The patient does not have BiPAP at home has high flow oxygen at home Currently using 18/12 Tolerates the pressure No aerophagia Slept well last night with BiPAP well D/c settings will be 5 liter, Bipap 18/12 (3) Acute exacerbation of chronic obstructive pulmonary disease (COPD): PLAN: agree with steroid wean for d/c tomorrow Prednisone 40 mg 4 d, 30 mg 4 d 20 mg 4 d 10 mg 4 day (4) Acute hypoxic respiratory failure: PLAN: TV on 12/11 are 450s. pt is very comfortable mask leak so mask is being used too tight causing nasal abrasion will shift to home mask tomorrow on d/c The case is discussed with Dr. Crowe this morning possible d/c tomorrow 04/09/25 0818 Mitchell Brian MD Cosigner Signature (if applicable): CC: ~ Signed [facility]05-14-2025 Progress note Author Kenelza Vieyra [facility] Note Date/Time April 08, 2025 2:03p [facility] Medical Records Department [address] [place] [address] Progress Note - Hospitalist 04/08/25842 MR#: [id number] Acct: [id number] Name: PIPER CLARK Rep #:[id number] : 1955 69 From: Ken Hughes PCP: Dr. Genia Chappell MD Status:ADM IN Location: [place] [address] Reason for Visit Reason for Visit: Diagnoses Elevated white blood cell count, unspecified (04/05/25) Morbid (severe) obesity due to excess calories (04/05/25) Morbid (severe) obesity with alveolar hypoventilation (04/05/25) Acidosis, unspecified (04/05/25) Obstructive sleep apnea (adult) (pediatric) (04/05/25) Other pericardial effusion (noninflammatory) (04/05/25) Chronic atrial fibrillation, unspecified (04/05/25) Chronic obstructive pulmonary disease with (acute) exacerbation (04/05/25) Acute respiratory failure with hypoxia (04/05/25) Localized edema (04/05/25) Other specified abnormal findings of blood chemistry (04/05/25) Body mass index [BMI] 45.0-49.9, adult (04/05/25) penitentiary (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 anticoagulants (04/05/25) Objective Data Objective Data Vital Signs: Vital Signs Temp Pulse Resp BP Pulse Ox O2 Del Method O2 Flow Rate 97.9 F 60 13 145/86 H 98 Bi-pap 4 04/08/25 03:00 04/08/25 04:02 04/08/25 04:02 04/08/25 03:00 04/08/25 04:02 04/08/25 03:00 04/07/25 21:00 FiO2 35 04/08/25 04:02 Oxygen Flow Rate (L/min) 4 Oxygen Delivery Method Bi-pap Weight: 248 lb 0.321 oz Body Mass Index (BMI) 45.3 Intake & Output: Intake and Output for Last 24 Hours 04/06/25 04/07/25 04/08/25 23:59 23:59 23:59 Intake Total 100 / 100 653.9 / 893.9 290 / 290 Output Total 2550 / 3000 2100 / 2850 1200 / 1200 Balance -2450 / -2900 -1446.1 / -1956.1 -910 / -910 Lab / Micro Data 04/07/25 15:30 04/08/25 05:40 Labs: Laboratory Results - last 24 hr 04/07/25 08:50: POC Glucose 160 H 04/07/25 11:37: POC Glucose 161 H 04/07/25 15:30: WBC 31.9 H*, RBC 4.26, Hgb 12.4, Hct 38.9, MCV 91.3, MCH 29.1, MCHC 31.9 L D, RDW Std Deviation 51.9 H, RDW Coeff of Beena 15.8 H, Plt Count 365, MPV 10.0, Immature Gran % (Auto) 1.000 H, Neut % (Auto) 94.1 H, Lymph % (Auto) 1.4 L, Gilmer % (Auto) 3.3, Eos % (Auto) 0.0, Baso % (Auto) 0.2, Absolute Neuts (auto) 30.0 H, Absolute Lymphs (auto) 0.46 L, Nucleated RBC % 0, Platelet Estimate A, Sodium 141, Potassium 3.5, Chloride 88 L, Carbon Dioxide 41.0 H, Anion Gap 12, BUN 33 H, Creatinine 1.07, Estim Creat Clear Calc 57.45, Est GFR (MDRD) Non-Af 56 L, BUN/Creatinine Ratio 31.1 H, Glucose 187 H, Calcium 9.4 04/07/25 16:08: POC Glucose 128 H 04/07/25 21:13: POC Glucose 239 H 04/08/25 05:40: Sodium 139, Potassium 2.8 L, Chloride 87 L, Carbon Dioxide 43.6 H, Anion Gap 9, BUN 33 H, Creatinine 0.82, Estim Creat Clear Calc 74.56, Est GFR (MDRD) Non-Af 77, BUN/Creatinine Ratio 40.4 H, Glucose 149 H, Calcium 8.9 Micro: Microbiology 04/06/25 05:45 Mucosa - Nasopharyngeal Respiratory Panel (PCR) - Final ABG Data ABG results: ABG 04/06/25 04/06/25 00:23 05:10 Blood Gas Notified Whom de joel de joel Rhythm Strip Rhythm Strip: A-fib Rate: 97 Ectopy: None Physical Exam Narrative Seen and examined. Patient feels better than yesterday. Came out of the BiPAP in the morning. She is talking in full sentences. No dyspnea. Denies chest pain or pressure Physical exam: General: Alert, Oriented x3, Cooperative, morbid obesity BMI 46.4 kg per square HEENT: Atraumatic, PERRLA, EOMI, Normocephalic. Oral: On BiPAP Neck: Supple, No JVD, Negative Carotid Bruits Chest wall/Lungs: Air entry severely diminished in all lung samaniego. Intermittent BiPAP/O2 through nasal cannula. No respiratory distress. Cardiovascular: A-fib, rate controlled normal S1,S2, No M/G/R Abdomen: Bowel Sounds Present, Soft, Non Tender, Non-Distended : No dysuria. No renal angle tenderness. No suprapubic tenderness. Extremities: Bilateral 3+ chronic thigh level edema. Capillary Refill Less than 3 Seconds Skin: No rashes, No breakdown Musculoskeletal: No Tenderness to Palpation of Joints or Extremities. ROM restricted due to edema Neurological: Cranial nerves II-XII grossly intact, DTR 2+/4. No acute focal neurological deficit. Psych/Mental Status: flat affect Assessment & Plan Assessment/Plan (1) Acute exacerbation of chronic obstructive pulmonary disease (COPD): (2) Pericardial effusion: (3) Leukocytosis: QUALIFIERS: Leukocytosis type: unspecified Qualified Code(s): D72.829 - Elevated white blood cell count, unspecified (4) Lactic acidosis: (5) Acute hypoxic respiratory failure: (6) Bilateral edema of lower extremity: (7) Elevated brain natriuretic peptide (BNP) level: (8) Morbid obesity with BMI of 45.0-49.9, adult: (9) Obesity hypoventilation syndrome: (10) WINIFRED (obstructive sleep apnea): (11) Atrial fibrillation: QUALIFIERS: Atrial fibrillation type: unspecified chronic Qualified Code(s): I48.20 - Chronic atrial fibrillation, unspecified (12) Chronic anticoagulation: PLAN: Plan 69-year-old female was admitted with dyspnea at rest, shortness of breath prolonging for about 1 month, normally 4 L at rest and 6 L on exertion, on CPAP at night. #Aute exacerbation of COPD: Was discharged on 03/24/2025 about 2 weeks ago. Patient is being managed on scheduled bronchodilator, IV Solu-Medrol, Mucinex, incentive spirometry and Pep. 04/08: Continue treatment. Blood culture negative for 48 hours. Respiratory panel negative. IV Zosyn changed to IV ceftriaxone. No focal consolidation identified on CT chest. High leukocytosis due to high dose of Solu-Medrol. IV Solu-Medrol decreased from 60 mg IV every 6 hourly to 40 mg every 8 hourly 2. Acute HFpEF diagnosed 2 weeks ago: Heart failure core measures including intake and output, fluid restriction less than 1500 mL, daily weight monitoring, kidney and electrolytes monitoring. Continue Lasix, 40 mg IV adjusted by patient's hemodynamics Echo 03/19/2025. Interpretation Summary The study was technically difficult. The LV systolic function is normal. EF is 65 %. There is Mild focal posterior mitral annular calcification. Right ventricular systolic pressure estimated to be 50 mmHg. Small (<1.0 cm) pericardial effusion. 04/08: Creatinine is 0.82. Bicarb 43.6. discontinue the IV Lasix drip. . Furosemide 40 mg IV twice daily. CT on admission reported about 1.4 cm pericardial effusion which was seen on the echo also. Therefore no new finding 3. Chronic A-fib: At rest heart rate is controlled on Eliquis and Cardizem as well as metoprolol 04/08: Heart rate is controlled 4. Hypertension: 5. Dyslipidemia: Fasting profile ordered. Blood pressure is controlled . Hypokalemia: K2.8. Anion gap 9. Bicarb 44. IV KCl is being replaced. Serum magnesium and phosphorus ordered. DVT prophylaxis - Patient is already on apixaban for #5 which will be continued. Clinical Impression(s) from Imaging Studies Chest X-Ray 04/05/25 21:20 IMPRESSION: No Acute Findings. Reading Location: [facility] Chest/Abdomen/Pelvis CT 04/05/25 23:58 IMPRESSION: Pericardial effusion is present measuring around 1.4 cm axial 88, clinically correlate. Small posterior layering left pleural effusion. Bilateral atelectasis without focal consolidation identified. No evidence of acute intra-abdominal process on noncontrast imaging. Diverticulosis without diverticulitis. Reading Location: [id number] Charges/Coding Visit Charges Inpatient E&M: 67002 Subs Hosp L2 04/08/25 1332 <Electronically signed by Ken Vieyra MD> Cosigner Signature (if applicable): CC: ~ Signed ADDENDUM by Dr. Ken Vieyra MD on 04/08/25 at 1403 Addendum The patient requires a hospital bed due to needing frequent changes in position,due to respiratory condition, that is not feasible in an ordinary bed. Related to Dx of morbidity obesity with obstructive sleep apnea/obesity hypoventilation syndrome. 04/08/25 1403<Electronically signed by Ken Vieyra MD> Cosigner Signature (if applicable): cc: ~* Signed [facility] Work Phone: [phone] Progress note [facility] Medical Records Department [address] [place] [address] Progress Note - Hospitalist 04/08/25 0843 MR#: [id number] Acct: [id number] Name: PIPER CLARK Rep #:[id number] : 1955 69 From: Ken Hughes PCP: Dr. Genia Chappell MD Status:ADM IN Location: [place] [address] Reason for Visit Reason for Visit: Diagnoses Elevated white blood cell count, unspecified (04/05/25) Morbid (severe) obesity due to excess calories (04/05/25) Morbid (severe) obesity with alveolar hypoventilation (04/05/25) Acidosis, unspecified (04/05/25) Obstructive sleep apnea (adult) (pediatric) (04/05/25) Other pericardial effusion (noninflammatory) (04/05/25) Chronic atrial fibrillation, unspecified (04/05/25) Chronic obstructive pulmonary disease with (acute) exacerbation (04/05/25) Acute respiratory failure with hypoxia (04/05/25) Localized edema (04/05/25) Other specified abnormal findings of blood chemistry (04/05/25) Body mass index [BMI] 45.0-49.9, adult (04/05/25) penitentiary (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 anticoagulants (04/05/25) Objective Data Objective Data Vital Signs: Vital Signs Temp Pulse Resp BP Pulse Ox O2 Del Method O2 Flow Rate 97.9 F 60 13 145/86 H 98 Bi-pap 4 04/08/25 03:00 04/08/25 04:02 04/08/25 04:02 04/08/25 03:00 04/08/25 04:02 04/08/25 03:00 04/07/25 21:00 FiO2 35 04/08/25 04:02 Oxygen Flow Rate (L/min) 4 Oxygen Delivery Method Bi-pap Weight: 248 lb 0.321 oz Body Mass Index (BMI) 45.3 Intake & Output: Intake and Output for Last 24 Hours 04/06/25 04/07/25 04/08/25 23:59 23:59 23:59 Intake Total 100 / 100 653.9 / 893.9 290 / 290 Output Total 2550 / 3000 2100 / 2850 1200 / 1200 Balance -2450 / -2900 -1446.1 / -1956.1 -910 / -910 Lab / Micro Data 04/07/25 15:30 04/08/25 05:40 Labs: Laboratory Results - last 24 hr 04/07/25 08:50: POC Glucose 160 H 04/07/25 11:37: POC Glucose 161 H 04/07/25 15:30: WBC 31.9 H*, RBC 4.26, Hgb 12.4, Hct 38.9, MCV 91.3, MCH 29.1, MCHC 31.9 L D, RDW Std Deviation 51.9 H, RDW Coeff of Beena 15.8 H, Plt Count 365, MPV 10.0, Immature Gran % (Auto) 1.000 H, Neut % (Auto) 94.1 H, Lymph % (Auto) 1.4 L, Gilmer % (Auto) 3.3, Eos % (Auto) 0.0, Baso % (Auto) 0.2, Absolute Neuts (auto) 30.0 H, Absolute Lymphs (auto) 0.46 L, Nucleated RBC % 0, Platelet EstimateA, Sodium 141, Potassium 3.5, Chloride 88 L, Carbon Dioxide 41.0 H, Anion Gap 12, BUN 33 H, Creatinine 1.07, Estim Creat Clear Calc 57.45, Est GFR (MDRD) Non-Af 56 L, BUN/Creatinine Ratio 31.1 H, Glucose 187 H, Calcium 9.4 04/07/25 16:08: POC Glucose 128 H 04/07/25 21:13: POC Glucose 239 H 04/08/25 05:40: Sodium 139, Potassium 2.8 L, Chloride 87 L, Carbon Dioxide 43.6 H, Anion Gap 9, BUN33 H, Creatinine 0.82, Estim Creat Clear Calc 74.56, Est GFR (MDRD) Non-Af 77, BUN/Creatinine Ratio40.4 H, Glucose 149 H, Calcium 8.9 Micro: Microbiology 04/06/25 05:45 Mucosa - Nasopharyngeal Respiratory Panel (PCR) - Final ABG Data ABG results: ABG 04/06/25 04/06/25 00:23 05:10 Blood Gas Notified Whom de joel de joel Rhythm Strip Rhythm Strip: A-fib Rate: 97 Ectopy: None Physical Exam Narrative Seen and examined. Patient feels better than yesterday. Came out of the BiPAP in the morning. She is talking in full sentences. No dyspnea. Denies chest pain or pressure Physical exam: General: Alert, Oriented x3, Cooperative, morbid obesity BMI 46.4 kg per square HEENT: Atraumatic, PERRLA, EOMI, Normocephalic. Oral: On BiPAP Neck: Supple, No JVD, Negative Carotid Bruits Chest wall/Lungs: Air entry severely diminished in all lung samaniego. Intermittent BiPAP/O2 through nasal cannula. No respiratory distress. Cardiovascular: A-fib, rate controlled normal S1,S2, No M/G/R Abdomen: Bowel Sounds Present, Soft, Non Tender, Non-Distended : No dysuria. No renal angle tenderness. No suprapubic tenderness. Extremities: Bilateral 3+ chronic thigh level edema. Capillary Refill Less than 3 Seconds Skin: No rashes, No breakdown Musculoskeletal: No Tenderness to Palpation of Joints or Extremities. ROM restricted due to edema Neurological: Cranial nerves II-XII grossly intact, DTR 2+/4. No acute focal neurological deficit. Psych/Mental Status: flat affect Assessment & Plan Assessment/Plan (1) Acute exacerbation of chronic obstructive pulmonary disease (COPD): (2) Pericardial effusion: (3) Leukocytosis: QUALIFIERS: Leukocytosis type: unspecified Qualified Code(s): D72.829 - Elevated white blood cell count, unspecified (4) Lactic acidosis: (5) Acute hypoxic respiratory failure: (6) Bilateral edema of lower extremity: (7) Elevated brain natriuretic peptide (BNP) level: (8) Morbid obesity with BMI of 45.0-49.9, adult: (9) Obesity hypoventilation syndrome: (10) WINIFRED (obstructive sleep apnea): (11) Atrial fibrillation: QUALIFIERS: Atrial fibrillation type: unspecified chronic Qualified Code(s): I48.20 - Chronic atrial fibrillation, unspecified (12) Chronic anticoagulation: PLAN: Plan 69-year-old female was admitted with dyspnea at rest, shortness of breath prolonging for about 1 month, normally 4 L at rest and 6 L on exertion, on CPAP at night. #Aute exacerbation of COPD: Was discharged on 03/24/2025 about 2 weeks ago. Patient is being managedon scheduled bronchodilator, IV Solu-Medrol, Mucinex, incentive spirometry and Pep. 04/08: Continue treatment. Blood culture negative for 48 hours. Respiratory panel negative. IV Zosynchanged to IV ceftriaxone. No focal consolidation identified on CT chest. High leukocytosis due to high dose of Solu-Medrol. IV Solu-Medrol decreased from 60 mg IV every 6 hourly to 40 mg every 8 hourly 2. Acute HFpEF diagnosed 2 weeks ago: Heart failure core measures including intake and output, fluid restriction less than 1500 mL, daily weight monitoring, kidney and electrolytes monitoring. Continue Lasix, 40 mg IV adjusted by patient's hemodynamics Echo 03/19/2025. Interpretation Summary The study was technically difficult. The LV systolic function is normal. EF is 65 %. There is Mild focal posterior mitral annular calcification. Right ventricular systolic pressure estimated to be 50 mmHg. Small (<1.0 cm) pericardial effusion. 04/08: Creatinine is 0.82. Bicarb 43.6. discontinue the IV Lasix drip. . Furosemide 40 mg IV twice daily. CT on admission reported about 1.4 cm pericardial effusion which was seen on the echo also. Therefore no new finding 3. Chronic A-fib: At rest heart rate is controlled on Eliquis and Cardizem as well as metoprolol 04/08: Heart rate is controlled 4. Hypertension: 5. Dyslipidemia: Fasting profile ordered. Blood pressure is controlled . Hypokalemia: K2.8. Anion gap 9. Bicarb 44. IV KCl is being replaced. Serum magnesium and phosphorus ordered. DVT prophylaxis - Patient is already on apixaban for #5 which will be continued. Clinical Impression(s) from Imaging Studies Chest X-Ray 04/05/25 21:20 IMPRESSION: No Acute Findings. Reading Location: [facility] Chest/Abdomen/Pelvis CT 04/05/25 23:58 IMPRESSION: Pericardial effusion is present measuring around 1.4 cm axial 88, clinically correlate. Small posterior layering left pleural effusion. Bilateral atelectasis without focal consolidation identified. No evidence of acute intra-abdominal process on noncontrast imaging. Diverticulosis without diverticulitis. Reading Location: [id number] Charges/Coding Visit Charges Inpatient E&M: 64282 Subs Hosp L2 04/08/25 1332 Cosigner Signature (if applicable): CC: ~ Signed ADDENDUM by Dr. Ken Vieyra MD on 04/08/25 at 1403 Addendum The patient requires a hospital bed due to needing frequent changes in position,due to respiratory condition, that is not feasible in an ordinary bed. Related to Dx of morbidity obesity with obstructive sleep apnea/obesity hypoventilation syndrome. 04/08/25 1403 Cosigner Signature (if applicable): cc: ~* Signed [facility]05-13-2025 Progress note Author Ken Vieyra [facility] Note Date/Time April 07, 2025 3:01p [facility] Medical Records Department [address] [place] [address] Progress Note - Hospitalist 04/06/25 0842 MR#: [id number] Acct: [id number] Name: PIPER CLARK Rep #:[id number] : 1955 69 From: Ken Hughes PCP: Dr. Genia Chappell MD Status:ADM IN Location: [place] [address] Reason for Visit Reason for Visit: Diagnoses Elevated white blood cell count, unspecified (04/05/25) Morbid (severe) obesity due to excess calories (04/05/25) Morbid (severe) obesity with alveolar hypoventilation (04/05/25) Acidosis, unspecified (04/05/25) Obstructive sleep apnea (adult) (pediatric) (04/05/25) Other pericardial effusion (noninflammatory) (04/05/25) Chronic atrial fibrillation, unspecified (04/05/25) Chronic obstructive pulmonary disease with (acute) exacerbation (04/05/25) Acute respiratory failure with hypoxia (04/05/25) Localized edema (04/05/25) Other specified abnormal findings of blood chemistry (04/05/25) Body mass index [BMI] 45.0-49.9, adult (04/05/25) 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 (04/05/25) Objective Data Objective Data Vital Signs: Vital Signs Temp Pulse Resp BP Pulse Ox O2 Del Method O2 Flow Rate 97.6 F L 92 18 121/59 H 93 Bi-pap 50 04/06/25 05:05 04/06/25 05:05 04/06/25 05:45 04/06/25 05:05 04/06/25 06:30 04/06/25 06:30 04/06/25 05:05 FiO2 35 04/06/25 06:30 Oxygen Flow Rate (L/min) 50 Oxygen Delivery Method Bi-pap Weight: 253 lb 12.033 oz Body Mass Index (BMI) 46.4 Intake & Output: Intake and Output for Last 24 Hours 04/04/25 04/05/25 04/06/25 23:59 23:59 23:59 Intake Total 100 / 100 0 / 0 Output Total 200 / 200 1000 / 1000 Balance -100 / -100 -1000 / -1000 Lab / Micro Data 04/06/25 04:45 04/06/25 04:45 Labs: Laboratory Results - last 24 hr 04/05/25 20:34: WBC 25.4 H, RBC 4.04 L, Hgb 11.7 L, Hct 38.9, MCV 96.3, MCH 29.0, MCHC 30.1 L, RDW Std Deviation 53.1 H, RDW Coeff of Beena 15.1 H, Plt Count 367, MPV 9.8, Immature Gran % (Auto) 1.200 H, Neut % (Auto) 92.3 H, Lymph % (Auto) 2.2 L, Gilmer % (Auto) 4.1, Eos % (Auto) 0.0, Baso % (Auto) 0.2, Absolute Neuts (auto) 23.4 H, Absolute Lymphs (auto) 0.57 L, Nucleated RBC % 0, Differential Comment SCANNED, Platelet Estimate ADEQUATE, Basophilic Stippling RARE, Anisocytosis 1+, Stomatocytes 2+, Sodium 138, Potassium 4.7, Chloride 89 L, Carbon Dioxide 42.2 H, Anion Gap 7, BUN 23 H, Creatinine 0.77, Estim Creat Clear Calc 77.14, Est GFR (MDRD) Non-Af 82, BUN/Creatinine Ratio 29.9 H, Glucose 305 H, Lactic Acid 2.5 H*, Calcium 9.2, Troponin T High Sens 10 D, NT pro BNP II 1349 H 04/05/25 22:30: Magnesium 1.9, Troponin T Hi Sens 2 Hr 8 04/06/25 00:37: Lactic Acid 2.9 H*, Troponin T Hi Sens 4Hr 12 04/06/25 04:45: WBC 26.3 H, RBC 4.02 L, Hgb 11.6 L, Hct 38.4, MCV 95.5, MCH 28.9, MCHC 30.2 L, RDW Std Deviation 52.8 H, RDW Coeff of Beena 15.1 H, Plt Count 310, MPV 9.7, Immature Gran % (Auto) 1.300 H, Neut % (Auto) 96.1 H, Lymph % (Auto) 1.0 L, Gilmer % (Auto) 1.4, Eos % (Auto) 0.0, Baso % (Auto) 0.2, Absolute Neuts (auto) 25.3 H, Absolute Lymphs (auto) 0.26 L, Nucleated RBC % 0, Differential Comment SCANNED, Platelet Estimate ADEQUATE, RBC Morphology NORM C+C, ESR 18, Sodium 140, Potassium 4.0, Chloride 88 L, Carbon Dioxide 42.0 H, Anion Gap 10, BUN 16, Creatinine 0.60 L, Estim Creat Clear Calc 77.49, Est GFR (MDRD) Non-Af 96, BUN/Creatinine Ratio 27.3 H, Glucose 233 H, Lactic Acid 2.2 H*, Calcium 8.6, Phosphorus 3.2, Total Bilirubin 0.23, AST 20, ALT 41 H, Alkaline Phosphatase 53, C-React Prot Ext Range 18.90 H, NT pro BNP II 1763 H, Total Protein 6.1, Albumin 3.4, Globulin 2.7, Albumin/Globulin Ratio 1.3 ABG Data ABG results: ABG 04/06/25 04/06/25 04/06/25 00:23 05:10 07:26 Specimen Type ART ART ART Sample Site R Radial L Radial L Radial pH 7.34 L 7.42 7.41 Bicarbonate Actual 47.4 H 54.8 H 47.7 H Total CO2 > 50 > 50 > 50 Base Excess 22 H > 30 H 23 H O2 Saturation 98 96 85 L O2 % 45.0 40.0 35.0 ABG pCO2 86.9 H* 84.1 H* 75.5 H* ABG pO2 119 H 84 54 L Zechariah Test Positive Positive Positive O2 Delivery Device HFNC HFNC BiPAP Vent Mode Not entered Not entered Not entered Crit Call To/Read Back Yes Yes Yes Radiography Diagnostic Testing: Radiology Impression Chest X-Ray 04/05/25 21:20 IMPRESSION: No Acute Findings. Reading Location: [facility] Chest/Abdomen/Pelvis CT 04/05/25 23:58 IMPRESSION: Pericardial effusion is present measuring around 1.4 cm axial 88, clinically correlate. Small posterior layering left pleural effusion. Bilateral atelectasis without focal consolidation identified. No evidence of acute intra-abdominal process on noncontrast imaging. Diverticulosis without diverticulitis. Reading Location: [id number] Rhythm Strip Rhythm Strip: A-fib Rate: 97 Ectopy: None Physical Exam Narrative General: Alert, Oriented x3, Cooperative, morbid obesity BMI 46.4 kg per square HEENT: Atraumatic, PERRLA, EOMI, Normocephalic. Oral: On BiPAP Neck: Supple, No JVD, Negative Carotid Bruits Chest wall/Lungs: Air entry severely diminished in all lung samaniego. BiPAP support. Faint bilateral expiratory rhonchi Cardiovascular: A-fib, rate controlled normal S1,S2, No M/G/R Abdomen: Bowel Sounds Present, Soft, Non Tender, Non-Distended : No dysuria. No renal angle tenderness. No suprapubic tenderness. Extremities: Bilateral 3+ chronic thigh level edema. Capillary Refill Less than 3 Seconds Skin: No rashes, No breakdown Musculoskeletal: No Tenderness to Palpation of Joints or Extremities. ROM restricted due to edema Neurological: Cranial nerves II-XII grossly intact, DTR 2+/4. No acute focal neurological deficit. Psych/Mental Status: flat affect Assessment & Plan Assessment/Plan (1) Acute exacerbation of chronic obstructive pulmonary disease (COPD): (2) Pericardial effusion: (3) Leukocytosis: QUALIFIERS: Leukocytosis type: unspecified Qualified Code(s): D72.829 - Elevated white blood cell count, unspecified (4) Lactic acidosis: (5) Acute hypoxic respiratory failure: (6) Bilateral edema of lower extremity: (7) Elevated brain natriuretic peptide (BNP) level: (8) Morbid obesity with BMI of 45.0-49.9, adult: (9) Obesity hypoventilation syndrome: (10) WINIFRED (obstructive sleep apnea): (11) Atrial fibrillation: QUALIFIERS: Atrial fibrillation type: unspecified chronic Qualified Code(s): I48.20 - Chronic atrial fibrillation, unspecified (12) Chronic anticoagulation: PLAN: Plan 69-year-old female was admitted with dyspnea at rest, shortness of breath prolonging for about 1 month, normally 4 L at rest and 6 L on exertion, on CPAP at night. #Aute exacerbation of COPD: Was discharged on 03/24/2025 about 2 weeks ago. Patient is being managed on scheduled bronchodilator, IV Solu-Medrol, Mucinex, incentive spirometry and Pep. 2. Acute HFpEF diagnosed 2 weeks ago: Heart failure core measures including intake and output, fluid restriction less than 1500 mL, daily weight monitoring, kidney and electrolytes monitoring. Continue Lasix, 40 mg IV adjusted by patient's hemodynamics Echo 03/19/2025. Interpretation Summary The study was technically difficult. The LV systolic function is normal. EF is 65 %. There is Mild focal posterior mitral annular calcification. Right ventricular systolic pressure estimated to be 50 mmHg. Small (<1.0 cm) pericardial effusion. CT on admission reported about 1.4 cm pericardial effusion which was seen on the echo also. Therefore no new finding 3. Chronic A-fib: At rest heart rate is controlled on Eliquis and Cardizem as well as metoprolol 4. Hypertension: 5. Dyslipidemia: Fasting profile ordered. Blood pressure is controlled DVT prophylaxis - Patient is already on apixaban for #5 which will be continued. Clinical Impression(s) from Imaging Studies Chest X-Ray 04/05/25 21:20 IMPRESSION: No Acute Findings. Reading Location: [facility] Chest/Abdomen/Pelvis CT 04/05/25 23:58 IMPRESSION: Pericardial effusion is present measuring around 1.4 cm axial 88, clinically correlate. Small posterior layering left pleural effusion. Bilateral atelectasis without focal consolidation identified. No evidence of acute intra-abdominal process on noncontrast imaging. Diverticulosis without diverticulitis. Reading Location: [id number] Charges/Coding Visit Charges Inpatient E&M: 96192 Subs Hosp L2 04/06/25 0852 <Electronically signed by Ken Vieyra MD> Cosigner Signature (if applicable): CC: ~ Signed ADDENDUM by Dr. Ken Vieyra MD on 04/07/25 at 1500 Addendum Acute on chronic hypoxic and hypercarbic combined respiratory failure with respiratory acidosis and chronic metabolic alkalosis: Patient on BiPAP. Tidal volume increased from mid 400s to high 400s. Continue BiPAP support. ABG on admission 7.34/87/119 on high flow nasal cannula. On BiPAP 7.4 /54. Bicarb more than 50 04/07/25 1500<Electronically signed by Ken Vieyra MD> Cosigner Signature (if applicable): cc: ~* Signed [facility] Work Phone: [phone]) 184-699305-13-2025 Progress note Author Ken Vieyra [facility] Note Date/Time April 07, 2025 3:00p m [facility] Medical Records Department [address] [place] [address] Progress Note - Hospitalist 04/07/25 1453 MR#: [id number] Acct: [id number] Name: PIPER CLARK Johan Rep #:[id number] : 1955 69 From: Ken Hughes PCP: Dr. Genia Chappell MD Status:ADM IN Location: [place] [address] Reason for Visit Reason for Visit: Diagnoses Obstructive sleep apnea (adult) (pediatric) (04/05/25) Other pericardial effusion (noninflammatory) (04/05/25) Chronic atrial fibrillation, unspecified (04/05/25) Chronic obstructive pulmonary disease with (acute) exacerbation (04/05/25) Acute respiratory failure with hypoxia (04/05/25) Objective Data Objective Data Vital Signs: Vital Signs Temp Pulse Resp BP Pulse Ox O2 Del Method O2 Flow Rate 98.3 F 85 19 H 136/92 H 97 Room Air 4 04/07/25 09:00 04/07/25 11:08 04/07/25 11:08 04/07/25 09:46 04/07/25 09:07 04/07/25 09:07 04/07/25 09:07 FiO2 35 04/07/25 06:41 Oxygen Flow Rate (L/min) 4 Oxygen Delivery Method Room Air Weight: 250 lb 3.594 oz Body Mass Index (BMI) 45.7 Intake & Output: Intake and Output for Last 24 Hours 04/05/25 04/06/25 04/07/25 23:59 23:59 23:59 Intake Total 100 / 100 100 / 100 340 / 340 Output Total 200 / 200 2550 / 3000 1700 / 1700 Balance -100 / -100 -2450 / -2900 -1360 / -1360 Lab / Micro Data 04/06/25 04:45 04/06/25 04:45 Labs: Laboratory Results - last 24 hr 04/06/25 15:16: POC Glucose 173 H 04/06/25 21:24: POC Glucose 175 H 04/07/25 03:28: POC Glucose 155 H 04/07/25 05:13: Hemoglobin A1c 6.3 H, Phosphorus 3.3 04/07/25 08:50: POC Glucose 160 H 04/07/25 11:37: POC Glucose 161 H Micro: Microbiology 04/06/25 05:45 Mucosa - Nasopharyngeal Respiratory Panel (PCR) - Final Rhythm Strip Rhythm Strip: A-fib Rate: 97 Ectopy: None Physical Exam Narrative Seen and examined. Patient feels better than yesterday. Came out of the BiPAP in the morning. Sheis talking in full sentences. No dyspnea. Denies chest pain or pressure Physical exam: General: Alert, Oriented x3, Cooperative, morbid obesity BMI 46.4 kg per square HEENT: Atraumatic, PERRLA, EOMI, Normocephalic. Oral: On BiPAP Neck: Supple, No JVD, Negative Carotid Bruits Chest wall/Lungs: Air entry severely diminished in all lung saamniego. Intermittent BiPAP/O2 through nasal cannula. No respiratory distress. Cardiovascular: A-fib, rate controlled normal S1,S2, No M/G/R Abdomen: Bowel Sounds Present, Soft, Non Tender, Non-Distended : No dysuria. No renal angle tenderness. No suprapubic tenderness. Extremities: Bilateral 3+ chronic thigh level edema. Capillary Refill Less than3 Seconds Skin: No rashes, No breakdown Musculoskeletal: No Tenderness to Palpation of Joints or Extremities. ROM restricted due to edema Neurological: Cranial nerves II-XII grossly intact, DTR 2+/4. No acute focal neurological deficit. Psych/Mental Status: flat affect Assessment & Plan Assessment/Plan (1) Acute exacerbation of chronic obstructive pulmonary disease (COPD): (2) Pericardial effusion: (3) Leukocytosis: QUALIFIERS: Leukocytosis type: unspecified Qualified Code(s): D72.829 - Elevated white blood cell count, unspecified (4) Lactic acidosis: (5) Acute hypoxic respiratory failure: (6) Bilateral edema of lower extremity: (7) Elevated brain natriuretic peptide (BNP) level: (8) Morbid obesity with BMI of 45.0-49.9, adult: (9) Obesity hypoventilation syndrome: (10) WINIFRED (obstructive sleep apnea): (11) Atrial fibrillation: QUALIFIERS: Atrial fibrillation type: unspecified chronic Qualified Code(s): I48.20 - Chronic atrial fibrillation, unspecified (12) Chronic anticoagulation: PLAN: Plan 69-year-old female was admitted with dyspnea at rest, shortness of breath prolonging for about 1 month, normally 4 L at rest and 6 L on exertion, on CPAP at night. Acute on chronic hypoxic and hypercarbic combined respiratory failure with respiratory acidosis and chronic metabolic alkalosis: Patient on BiPAP. Tidal volume increased from mid 400s to high 400s. Continue BiPAP support. ABG on admission 7.34/87/119 on high flow nasal cannula. On BiPAP 7.4 /54. Bicarbmore than 50 04/07 on BMP bicarb 42. #Aute exacerbation of COPD: Was discharged on 03/24/2025 about 2 weeks ago. Patient is being managed on scheduled bronchodilator, IV Solu-Medrol, Mucinex, incentive spirometry and Pep. 03/28: Discussed with kettle hand Dr. Dunlap at today. Continue high-dose of steroid, bronchodilator, aggressive bronchopulmonary hygiene. 2. Acute HFpEF diagnosed 2 weeks ago: Heart failure core measures including intake and output, fluid restriction less than 1500 mL, daily weight monitoring,kidney and electrolytes monitoring. Continue Lasix, 40 mg IV adjusted by patient's hemodynamics Echo 03/19/2025. Interpretation Summary The study was technically difficult. The LV systolic function is normal. EF is 65 %. There is Mild focal posterior mitral annular calcification. Right ventricular systolic pressure estimated to be 50 mmHg. Small (<1.0 cm) pericardial effusion. CT on admission reported about 1.4 cm pericardial effusion which was seen on theecho also. Therefore no new finding 04/07: Total urine output 2.5 L yesterday and 1000 L till now therefore decrease Lasix drip to 5 mg/h. Patient having good diuresis but she has significant pulmonary hypertension. As mentioned above, RVSP 50 mmHg 3. Chronic A-fib: At rest heart rate is controlled on Eliquis and Cardizem as well as metoprolol 4. Hypertension: 5. Dyslipidemia: Fasting profile ordered. Blood pressure is controlled DVT prophylaxis - Patient is already on apixaban for #5 which will be continued. Clinical Impression(s) from Imaging Studies Chest X-Ray 04/05/25 21:20 IMPRESSION: No Acute Findings. Reading Location: [facility] Chest/Abdomen/Pelvis CT 04/05/25 23:58 IMPRESSION: Pericardial effusion is present measuring around 1.4 cm axial 88, clinically correlate. Small posterior layering left pleural effusion. Bilateral atelectasis without focal consolidation identified. No evidence of acute intra-abdominal process on noncontrast imaging. Diverticulosis without diverticulitis. Reading Location: [id number] Charges/Coding Visit Charges Inpatient E&M: 97069 Subs Hosp L3 04/07/25 1500 <Electronically signed by Ken Vieyra MD> Cosigner Signature (if applicable): CC: ~ Signed [facility] Work Phone: 1(634) 637-758005-13-2025 Progress note [facility] Medical Records Department [address] [place] [address] Progress Note - Hospitalist 04/06/25 0842 MR#: [id number] Acct: [id number] Name: PIPER CLARK Rep #:[id number] : 1955 69 From: Ken Hughes PCP: Dr. Genia Chappell MD Status:ADM IN Location: [place] [address] Reason for Visit Reason for Visit: Diagnoses Elevated white blood cell count, unspecified (04/05/25) Morbid (severe) obesity due to excess calories (04/05/25) Morbid (severe) obesity with alveolar hypoventilation (04/05/25) Acidosis, unspecified (04/05/25) Obstructive sleep apnea (adult) (pediatric) (04/05/25) Other pericardial effusion (noninflammatory) (04/05/25) Chronic atrial fibrillation, unspecified (04/05/25) Chronic obstructive pulmonary disease with (acute) exacerbation (04/05/25) Acute respiratory failure with hypoxia (04/05/25) Localized edema (04/05/25) Other specified abnormal findings of blood chemistry (04/05/25) Body mass index [BMI] 45.0-49.9, adult (04/05/25) 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 (04/05/25) Objective Data Objective Data Vital Signs: Vital Signs Temp Pulse Resp BP Pulse Ox O2 Del Method O2 Flow Rate 97.6 F L 92 18 121/59 H 93 Bi-pap 50 04/06/25 05:05 04/06/25 05:05 04/06/25 05:45 04/06/25 05:05 04/06/25 06:30 04/06/25 06:30 04/06/25 05:05 FiO2 35 04/06/25 06:30 Oxygen Flow Rate (L/min) 50 Oxygen Delivery Method Bi-pap Weight: 253 lb 12.033 oz Body Mass Index (BMI) 46.4 Intake & Output: Intake and Output for Last 24 Hours 04/04/25 04/05/25 04/06/25 23:59 23:59 23:59 Intake Total 100 / 100 0 / 0 Output Total 200 / 200 1000 / 1000 Balance -100 / -100 -1000 / -1000 Lab / Micro Data 04/06/25 04:45 04/06/25 04:45 Labs: Laboratory Results - last 24 hr 04/05/25 20:34: WBC 25.4 H, RBC 4.04 L, Hgb 11.7 L, Hct 38.9, MCV 96.3, MCH 29.0, MCHC 30.1 L, RDW Std Deviation 53.1 H, RDW Coeff of Beena 15.1 H, Plt Count 367, MPV 9.8, Immature Gran % (Auto) 1.200 H, Neut % (Auto) 92.3 H, Lymph % (Auto) 2.2 L, Gilmer % (Auto) 4.1, Eos % (Auto) 0.0, Baso % (Auto) 0.2, Absolute Neuts (auto) 23.4 H, Absolute Lymphs (auto) 0.57 L, Nucleated RBC % 0, Differential Comment SCANNED, Platelet Estimate ADEQUATE, Basophilic Stippling RARE, Anisocytosis 1+, Stomatocytes 2+, Sodium 138, Potassium 4.7, Chloride 89 L, Carbon Dioxide 42.2 H, Anion Gap 7, BUN 23 H, Creatinine0.77, Estim Creat Clear Calc 77.14, Est GFR (MDRD) Non-Af 82, BUN/Creatinine Ratio 29.9 H, Glucose 305 H, Lactic Acid 2.5 H*, Calcium 9.2, Troponin T High Sens 10 D, NT pro BNP II 1349 H 04/05/25 22:30: Magnesium 1.9, Troponin T Hi Sens 2 Hr 8 04/06/25 00:37: Lactic Acid 2.9 H*, Troponin T Hi Sens 4Hr 12 04/06/25 04:45: WBC 26.3 H, RBC 4.02 L, Hgb 11.6 L, Hct 38.4, MCV 95.5, MCH 28.9, MCHC 30.2 L, RDW Std Deviation 52.8 H, RDW Coeff of Beena 15.1 H, Plt Count 310, MPV 9.7, Immature Gran % (Auto) 1.300 H, Neut % (Auto) 96.1 H, Lymph % (Auto) 1.0 L, Gilmer % (Auto) 1.4, Eos % (Auto) 0.0, Baso % (Auto) 0.2, Absolute Neuts (auto) 25.3 H, Absolute Lymphs (auto) 0.26 L, Nucleated RBC % 0, Differential Comment SCANNED, Platelet Estimate ADEQUATE, RBC Morphology NORM C+C, ESR 18, Sodium 140, Potassium 4.0,Chloride 88 L, Carbon Dioxide 42.0 H, Anion Gap 10, BUN 16, Creatinine 0.60 L, Estim Creat Clear Calc 77.49, Est GFR (MDRD) Non-Af 96, BUN/Creatinine Ratio 27.3 H, Glucose 233 H, Lactic Acid 2.2 H*, Calcium 8.6, Phosphorus 3.2, Total Bilirubin 0.23, AST 20, ALT 41 H, Alkaline Phosphatase 53, C-React Prot Ext Range 18.90 H, NT pro BNP II 1763 H, Total Protein 6.1, Albumin 3.4, Globulin 2.7, Albumin/Globulin Ratio 1.3 ABG Data ABG results: ABG 04/06/25 04/06/25 04/06/25 00:23 05:10 07:26 Specimen Type ART ART ART Sample Site R Radial L Radial L Radial pH 7.34 L 7.42 7.41 Bicarbonate Actual 47.4 H 54.8 H 47.7 H Total CO2 > 50 > 50 > 50 Base Excess 22 H > 30 H 23 H O2 Saturation 98 96 85 L O2 % 45.0 40.0 35.0 ABG pCO2 86.9 H* 84.1 H* 75.5 H* ABG pO2 119 H 84 54 L Zechariah Test Positive Positive Positive O2 Delivery Device HFNC HFNC BiPAP Vent Mode Not entered Not entered Not entered Crit Call To/Read Back Yes Yes Yes Radiography Diagnostic Testing: Radiology Impression Chest X-Ray 04/05/25 21:20 IMPRESSION: No Acute Findings. Reading Location: [facility] Chest/Abdomen/Pelvis CT 04/05/25 23:58 IMPRESSION: Pericardial effusion is present measuring around 1.4 cm axial 88, clinically correlate. Small posterior layering left pleural effusion. Bilateral atelectasis without focal consolidation identified. No evidence of acute intra-abdominal process on noncontrast imaging. Diverticulosis without diverticulitis. Reading Location: [id number] Rhythm Strip Rhythm Strip: A-fib Rate: 97 Ectopy: None Physical Exam Narrative General: Alert, Oriented x3, Cooperative, morbid obesity BMI 46.4 kg per square HEENT: Atraumatic, PERRLA, EOMI, Normocephalic. Oral: On BiPAP Neck: Supple, No JVD, Negative Carotid Bruits Chest wall/Lungs: Air entry severely diminished in all lung samaniego. BiPAP support. Faint bilateral expiratory rhonchi Cardiovascular: A-fib, rate controlled normal S1,S2, No M/G/R Abdomen: Bowel Sounds Present, Soft, Non Tender, Non-Distended : No dysuria. No renal angle tenderness. No suprapubic tenderness. Extremities: Bilateral 3+ chronic thigh level edema. Capillary Refill Less than 3 Seconds Skin: No rashes, No breakdown Musculoskeletal: No Tenderness to Palpation of Joints or Extremities. ROM restricted due to edema Neurological: Cranial nerves II-XII grossly intact, DTR 2+/4. No acute focal neurological deficit. Psych/Mental Status: flat affect Assessment & Plan Assessment/Plan (1) Acute exacerbation of chronic obstructive pulmonary disease (COPD): (2) Pericardial effusion: (3) Leukocytosis: QUALIFIERS: Leukocytosis type: unspecified Qualified Code(s): D72.829 - Elevated white blood cell count, unspecified (4) Lactic acidosis: (5) Acute hypoxic respiratory failure: (6) Bilateral edema of lower extremity: (7) Elevated brain natriuretic peptide (BNP) level: (8) Morbid obesity with BMI of 45.0-49.9, adult: (9) Obesity hypoventilation syndrome: (10) WINIFRED (obstructive sleep apnea): (11) Atrial fibrillation: QUALIFIERS: Atrial fibrillation type: unspecified chronic Qualified Code(s): I48.20 - Chronic atrial fibrillation, unspecified (12) Chronic anticoagulation: PLAN: Plan 69-year-old female was admitted with dyspnea at rest, shortness of breath prolonging for about 1 month, normally 4 L at rest and 6 L on exertion, on CPAP at night. #Aute exacerbation of COPD: Was discharged on 03/24/2025 about 2 weeks ago. Patient is being managedon scheduled bronchodilator, IV Solu-Medrol, Mucinex, incentive spirometry and Pep. 2. Acute HFpEF diagnosed 2 weeks ago: Heart failure core measures including intake and output, fluid restriction less than 1500 mL, daily weight monitoring, kidney and electrolytes monitoring. Continue Lasix, 40 mg IV adjusted by patient's hemodynamics Echo 03/19/2025. Interpretation Summary The study was technically difficult. The LV systolic function is normal. EF is 65 %. There is Mild focal posterior mitral annular calcification. Right ventricular systolic pressure estimated to be 50 mmHg. Small (<1.0 cm) pericardial effusion. CT on admission reported about 1.4 cm pericardial effusion which was seen on the echo also. Therefore no new finding 3. Chronic A-fib: At rest heart rate is controlled on Eliquis and Cardizem as well as metoprolol 4. Hypertension: 5. Dyslipidemia: Fasting profile ordered. Blood pressure is controlled DVT prophylaxis - Patient is already on apixaban for #5 which will be continued. Clinical Impression(s) from Imaging Studies Chest X-Ray 04/05/25 21:20 IMPRESSION: No Acute Findings. Reading Location: [facility] Chest/Abdomen/Pelvis CT 04/05/25 23:58 IMPRESSION: Pericardial effusion is present measuring around 1.4 cm axial 88, clinically correlate. Small posterior layering left pleural effusion. Bilateral atelectasis without focal consolidation identified. No evidence of acute intra-abdominal process on noncontrast imaging. Diverticulosis without diverticulitis. Reading Location: [id number] Charges/Coding Visit Charges Inpatient E&M: 39363 Subs Hosp L2 04/06/25 0852 Cosigner Signature (if applicable): CC: ~ Signed ADDENDUM by Dr. Ken Vieyra MD on 04/07/25 at 1500 Addendum Acute on chronic hypoxic and hypercarbic combined respiratory failure with respiratory acidosis andchronic metabolic alkalosis: Patient on BiPAP. Tidal volume increased from mid 400s to high 400s. Continue BiPAP support. ABG on admission 7.34/87/119 on high flow nasal cannula. On BiPAP 7.4 1/75/54. Bicarb more than 50 04/07/25 1500 Cosigner Signature (if applicable): cc: ~* Signed [facility]05-13-2025 Progress note [facility] Medical Records Department [address] [place] [address] Progress Note - Hospitalist 04/07/25 1453 MR#: [id number] Acct: [id number] Name: PIPER CLARK Rep #:[id number] : 1955 69 From: Ken Hughes PCP: Dr. Genia Chappell MD Status:ADM IN Location: [place] [address] Reason for Visit Reason for Visit: Diagnoses Obstructive sleep apnea (adult) (pediatric) (04/05/25) Other pericardial effusion (noninflammatory) (04/05/25) Chronic atrial fibrillation, unspecified (04/05/25) Chronic obstructive pulmonary disease with (acute) exacerbation (04/05/25) Acute respiratory failure with hypoxia (04/05/25) Objective Data Objective Data Vital Signs: Vital Signs Temp Pulse Resp BP Pulse Ox O2 Del Method O2 Flow Rate 98.3 F 85 19 H 136/92 H 97 Room Air 4 04/07/25 09:00 04/07/25 11:08 04/07/25 11:08 04/07/25 09:46 04/07/25 09:07 04/07/25 09:07 04/07/25 09:07 FiO2 35 04/07/25 06:41 Oxygen Flow Rate (L/min) 4 Oxygen Delivery Method Room Air Weight: 250 lb 3.594 oz Body Mass Index (BMI) 45.7 Intake & Output: Intake and Output for Last 24 Hours 04/05/25 04/06/25 04/07/25 23:59 23:59 23:59 Intake Total 100 / 100 100 / 100 340 / 340 Output Total 200 / 200 2550 / 3000 1700 / 1700 Balance -100 / -100 -2450 / -2900 -1360 / -1360 Lab / Micro Data 04/06/25 04:45 04/06/25 04:45 Labs: Laboratory Results - last 24 hr 04/06/25 15:16: POC Glucose 173 H 04/06/25 21:24: POC Glucose 175 H 04/07/25 03:28: POC Glucose 155 H 04/07/25 05:13: Hemoglobin A1c 6.3 H, Phosphorus 3.3 04/07/25 08:50: POC Glucose 160 H 04/07/25 11:37: POC Glucose 161 H Micro: Microbiology 04/06/25 05:45 Mucosa - Nasopharyngeal Respiratory Panel (PCR) - Final Rhythm Strip Rhythm Strip: A-fib Rate: 97 Ectopy: None Physical Exam Narrative Seen and examined. Patient feels better than yesterday. Came out of the BiPAP in the morning. Sheis talking in full sentences. No dyspnea. Denies chest pain or pressure Physical exam: General: Alert, Oriented x3, Cooperative, morbid obesity BMI 46.4 kg per square HEENT: Atraumatic, PERRLA, EOMI, Normocephalic. Oral: On BiPAP Neck: Supple, No JVD, Negative Carotid Bruits Chest wall/Lungs: Air entry severely diminished in all lung samaniego. Intermittent BiPAP/O2 through nasal cannula. No respiratory distress. Cardiovascular: A-fib, rate controlled normal S1,S2, No M/G/R Abdomen: Bowel Sounds Present, Soft, Non Tender, Non-Distended : No dysuria. No renal angle tenderness. No suprapubic tenderness. Extremities: Bilateral 3+ chronic thigh level edema. Capillary Refill Less than3 Seconds Skin: No rashes, No breakdown Musculoskeletal: No Tenderness to Palpation of Joints or Extremities. ROM restricted due to edema Neurological: Cranial nerves II-XII grossly intact, DTR 2+/4. No acute focal neurological deficit. Psych/Mental Status: flat affect Assessment & Plan Assessment/Plan (1) Acute exacerbation of chronic obstructive pulmonary disease (COPD): (2) Pericardial effusion: (3) Leukocytosis: QUALIFIERS: Leukocytosis type: unspecified Qualified Code(s): D72.829 - Elevated white blood cell count, unspecified (4) Lactic acidosis: (5) Acute hypoxic respiratory failure: (6) Bilateral edema of lower extremity: (7) Elevated brain natriuretic peptide (BNP) level: (8) Morbid obesity with BMI of 45.0-49.9, adult: (9) Obesity hypoventilation syndrome: (10) WINIFRED (obstructive sleep apnea): (11) Atrial fibrillation: QUALIFIERS: Atrial fibrillation type: unspecified chronic Qualified Code(s): I48.20 - Chronic atrial fibrillation, unspecified (12) Chronic anticoagulation: PLAN: Plan 69-year-old female was admitted with dyspnea at rest, shortness of breath prolonging for about 1 month, normally 4 L at rest and 6 L on exertion, on CPAP at night. Acute on chronic hypoxic and hypercarbic combined respiratory failure with respiratory acidosis andchronic metabolic alkalosis: Patient on BiPAP. Tidal volume increased from mid 400s to high 400s. Continue BiPAP support. ABG on admission 7.34/87/119 on high flow nasal cannula. On BiPAP 7.4 /54. Bicarbmore than 50 04/07 on BMP bicarb 42. #Aute exacerbation of COPD: Was discharged on 03/24/2025 about 2 weeks ago. Patient is being managedon scheduled bronchodilator, IV Solu-Medrol, Mucinex, incentive spirometry and Pep. 03/28: Discussed with kettle hand Dr. Dunlap at today. Continue high-dose of steroid, bronchodilator, aggressive bronchopulmonary hygiene. 2. Acute HFpEF diagnosed 2 weeks ago: Heart failure core measures including intake and output, fluid restriction less than 1500 mL, daily weight monitoring,kidney and electrolytes monitoring. Continue Lasix, 40 mg IV adjusted by patient's hemodynamics Echo 03/19/2025. Interpretation Summary The study was technically difficult. The LV systolic function is normal. EF is 65 %. There is Mild focal posterior mitral annular calcification. Right ventricular systolic pressure estimated to be 50 mmHg. Small (<1.0 cm) pericardial effusion. CT on admission reported about 1.4 cm pericardial effusion which was seen on theecho also. Therefore no new finding 04/07: Total urine output 2.5 L yesterday and 1000 L till now therefore decrease Lasix drip to 5 mg/h. Patient having good diuresis but she has significant pulmonary hypertension. As mentioned above, RVSP 50 mmHg 3. Chronic A-fib: At rest heart rate is controlled on Eliquis and Cardizem as well as metoprolol 4. Hypertension: 5. Dyslipidemia: Fasting profile ordered. Blood pressure is controlled DVT prophylaxis - Patient is already on apixaban for #5 which will be continued. Clinical Impression(s) from Imaging Studies Chest X-Ray 04/05/25 21:20 IMPRESSION: No Acute Findings. Reading Location: [facility] Chest/Abdomen/Pelvis CT 04/05/25 23:58 IMPRESSION: Pericardial effusion is present measuring around 1.4 cm axial 88, clinically correlate. Small posterior layering left pleural effusion. Bilateral atelectasis without focal consolidation identified. No evidence of acute intra-abdominal process on noncontrast imaging. Diverticulosis without diverticulitis. Reading Location: [id number] Charges/Coding Visit Charges Inpatient E&M: 37591 Subs Hosp L3 04/07/25 1500 Cosigner Signature (if applicable): CC: ~ Signed [facility]05-13-2025 Progress note Author Mitchell Brian [facility] Note Date/Time April 07, 2025 8:14a m [facility] Medical Records Department [address] [place] [address] Progress Note 04/07/25 0807 MR#: [id number] Acct: [id number] Name: PIPER CLARK Rep #:[id number] : 1955 69 From: Mitchell norton MD PCP: Dr. Genia Chappell MD Status:ADM IN Location: [place] [address] Subjective Subjective The patient slept well, she is BiPAP through the night She denies any chest pain Shortness of breath is less pronounced She is speaking in full sentences, there is no accessory muscle use today Objective Data Objective Data Vital Signs: Vital Signs Temp Pulse Resp BP Pulse Ox O2 Del Method O2 Flow Rate 98.5 F 73 15 148/90 H 97 Bi-pap 50 04/07/25 03:00 04/07/25 05:16 04/07/25 05:16 04/07/25 03:00 04/07/25 05:16 04/07/25 03:00 04/06/25 05:05 FiO2 35 04/07/25 05:16 Oxygen Flow Rate (L/min) 50 Oxygen Delivery Method Bi-pap Weight: 113.5 kg Body Mass Index (BMI) 45.7 Intake & Output: Intake and Output for Last 24 Hours 04/05/25 04/06/25 04/07/25 23:59 23:59 23:59 Intake Total 100 / 100 100 / 100 50 / 50 Output Total 200 / 200 2550 / 3000 1000 / 1000 Balance -100 / -100 -2450 / -2900 -950 / -950 Lab / Micro Data 04/06/25 04:45 04/06/25 04:45 Labs: Laboratory Results - last 24 hr 04/06/25 04:45: Triglycerides 71, Cholesterol 147, LDL Cholesterol, Calc 61, VLDL Cholesterol 14, HDL Cholesterol 72, Cholesterol/HDL Ratio 2.04 04/06/25 09:15: Lactic Acid 3.0 H* 04/06/25 15:16: POC Glucose 173 H 04/06/25 21:24: POC Glucose 175 H 04/07/25 03:28: POC Glucose 155 H 04/07/25 05:13: Hemoglobin A1c 6.3 H, Phosphorus 3.3 Micro: Microbiology 04/06/25 05:45 Mucosa - Nasopharyngeal Respiratory Panel (PCR) - Final Rhythm Strip Rhythm Strip: A-fib Rate: 97 Ectopy: None Physical Exam Const alert, oriented x3 and no apparent distress General Appearance: cooperative and comfortable Orientation / Consciousness: awake HEENT normocephalic, head/scalp atraumatic, hearing grossly normal bilaterally and moist oral mucous membranes Head and Scalp: normal to inspection and normocephalic Face and Sinus: normal facial exam and sinuses nontender Nose: external nose normal and nares normal General Ear: hearing grossly impaired Mouth: oral and palatal mucosa normal, tongue normal and moist mucous membranes abnormal Eyes PERRL and EOMs intact bilaterally Neck full ROM, nuchal rigidity and no lymphadenopathy Chest Chest Narrative: Diminished breath sounds, slight improvement in air entry from yesterday. Poor chest expansion, no audible wheezing, prolonged expiratory phase, no accessory muscle use this morning Cardio Cardio Narrative: Irregular rhythm, no tachycardia, no murmur no S3 GI normal to inspection, nondistended, normoactive bowel sounds, soft to palpation,non-tender, non-distended, hepatosplenomegaly, no masses and no bruits Back/Spine no CVA tenderness and normal ROM Extremity normal to inspection Extremity Narrative: Less leg edema Neuro oriented x3 and moves all extremities Assessment & Plan Assessment/Plan (1) Pericardial effusion: PLAN: The patient had a good diuresis There is no chest pain She has a preserved ejection fraction but significant pulm hypertension Follow-up echocardiography warranted, outpatient (2) WINIFRED (obstructive sleep apnea): PLAN: The patient does not have BiPAP at home Currently using 20/10 Tolerates the pressure No aerophagia Slept well last night with BiPAP I am in the process of procuring a BiPAP with O2 blended in for home which I believe will help the patient quite substantially (3) Acute exacerbation of chronic obstructive pulmonary disease (COPD): PLAN: Less dyspnea this morning more air movement high steroids, frequent use ofDuoNebs having some effect. No evidence of acute infection at this point, some response to COPD exacerbation (4) Acute hypoxic respiratory failure: PLAN: Tidal volumes are increased from the mid 400s to the high 400s, the patient has less edema and has more air movement, I suspect the CO2 will continue to drop, consider blood gas either this morning or tomorrow The case is discussed with Dr. Crowe this morning 04/07/25 7219 <Electronically signed by Mitchell Brian MD> Mitchell Brian MD Cosigner Signature (if applicable): CC: ~ Signed [facility] Work Phone: [phone] Progress note [facility] Medical Records Department [address] [place] [address] Progress Note 04/07/25 08 MR#: [id number] Acct: [id number] Name: PIPER CLARK Rep #:[id number] : 1955 69 From: Mitchell norton MD PCP: Dr. Genia Chappell MD Status:ADM IN Location: [place] [address] Subjective Subjective The patient slept well, she is BiPAP through the night She denies any chest pain Shortness of breath is less pronounced She is speaking in full sentences, there is no accessory muscle use today Objective Data Objective Data Vital Signs: Vital Signs Temp Pulse Resp BP Pulse Ox O2 Del Method O2 Flow Rate 98.5 F 73 15 148/90 H 97 Bi-pap 50 04/07/25 03:00 04/07/25 05:16 04/07/25 05:16 04/07/25 03:00 04/07/25 05:16 04/07/25 03:00 04/06/25 05:05 FiO2 35 04/07/25 05:16 Oxygen Flow Rate (L/min) 50 Oxygen Delivery Method Bi-pap Weight: 113.5 kg Body Mass Index (BMI) 45.7 Intake & Output: Intake and Output for Last 24 Hours 04/05/25 04/06/25 04/07/25 23:59 23:59 23:59 Intake Total 100 / 100 100 / 100 50 / 50 Output Total 200 / 200 2550 / 3000 1000 / 1000 Balance -100 / -100 -2450 / -2900 -950 / -950 Lab / Micro Data 04/06/25 04:45 04/06/25 04:45 Labs: Laboratory Results - last 24 hr 04/06/25 04:45: Triglycerides 71, Cholesterol 147, LDL Cholesterol, Calc 61, VLDL Cholesterol 14, HDL Cholesterol 72, Cholesterol/HDL Ratio 2.04 04/06/25 09:15: Lactic Acid 3.0 H* 04/06/25 15:16: POC Glucose 173 H 04/06/25 21:24: POC Glucose 175 H 04/07/25 03:28: POC Glucose 155 H 04/07/25 05:13: Hemoglobin A1c 6.3 H, Phosphorus 3.3 Micro: Microbiology 04/06/25 05:45 Mucosa - Nasopharyngeal Respiratory Panel (PCR) - Final Rhythm Strip Rhythm Strip: A-fib Rate: 97 Ectopy: None Physical Exam Const alert, oriented x3 and no apparent distress General Appearance: cooperative and comfortable Orientation / Consciousness: awake HEENT normocephalic, head/scalp atraumatic, hearing grossly normal bilaterally and moist oral mucous membranes Head and Scalp: normal to inspection and normocephalic Face and Sinus: normal facial exam and sinuses nontender Nose: external nose normal and nares normal General Ear: hearing grossly impaired Mouth: oral and palatal mucosa normal, tongue normal and moist mucous membranes abnormal Eyes PERRL and EOMs intact bilaterally Neck full ROM, nuchal rigidity and no lymphadenopathy Chest Chest Narrative: Diminished breath sounds, slight improvement in air entry from yesterday. Poor chest expansion, no audible wheezing, prolonged expiratory phase, no accessory muscle use this morning Cardio Cardio Narrative: Irregular rhythm, no tachycardia, no murmur no S3 GI normal to inspection, nondistended, normoactive bowel sounds, soft to palpation,non-tender, non-distended, hepatosplenomegaly, no masses and no bruits Back/Spine no CVA tenderness and normal ROM Extremity normal to inspection Extremity Narrative: Less leg edema Neuro oriented x3 and moves all extremities Assessment & Plan Assessment/Plan (1) Pericardial effusion: PLAN: The patient had a good diuresis There is no chest pain She has a preserved ejection fraction but significant pulm hypertension Follow-up echocardiography warranted, outpatient (2) WINIFRED (obstructive sleep apnea): PLAN: The patient does not have BiPAP at home Currently using 20/10 Tolerates the pressure No aerophagia Slept well last night with BiPAP I am in the process of procuring a BiPAP with O2 blended in for home which I believe will help the patient quite substantially (3) Acute exacerbation of chronic obstructive pulmonary disease (COPD): PLAN: Less dyspnea this morning more air movement high steroids, frequent use ofDuoNebs having someeffect. No evidence of acute infection at this point, some response to COPD exacerbation (4) Acute hypoxic respiratory failure: PLAN: Tidal volumes are increased from the mid 400s to the high 400s, the patient has less edema and has more air movement, I suspect the CO2 will continue to drop, consider blood gas either this morning or tomorrow The case is discussed with Dr. Crowe this morning 04/07/25 0814 Mitchell Brian MD Cosigner Signature (if applicable): CC: ~ Signed [facility]05-12-2025 History and physical note Author Orlando Maldonado [facility] Note Date/Time April 06, 2025 6:10a m [facility] Medical Records Department [address] [place] [address] H&P Exam - Hospitalist 04/05/25 9458 MR#: [id number] Acct: [id number] Name: PIPER CLARK Rep #:[id number] : 1955 69 From: Orlando Zavaleta DO PCP: Dr. Genia Chappell MD Status:ADM IN Location: [id number] HPI - General General Date of Admission: 04/05/25 Date of Service: 04/05/25 Chief Complaint: SOB. HPI Narrative PIPER CLARK, is a 69 F with a past medical history of essential hypertension; on metoprolol and furosemide, history of hyperlipidemia; currentlynot on treatment, morbid obesity; with BMI of 49 this admission, WINIFRED, chronic atrial fibrillation; on diltiazem and apixaban, CAD, history of tobacco abuse; with subsequent asthma/COPD; on 4L NC at baseline on Trelegy Ellipta and as needed albuterol, narcolepsy; on modafinil, seasonal allergies; on montelukast, migraine headaches; on Nurtec ODT daily, depression; on duloxetine, history of cellulitis, history of septic olecranon bursitis of the Right elbow, history of hemorrhoids, history of appendectomy (~1994), history of Right heart catheterization (~2021) history of removal of ovary (~1994), history of GERD; currently not on treatment, osteopenia, OA; with chronic back pain on acetaminophen twice daily and recent admission here from March 19, 2025 to 2024 for treatment of AE COPD with elevated NT pro-BNP II of 1,003 pg/mL andmildly elevated troponin T of 19 bg/L complicated by [id number] Respiratory Insufficiency with LVEF ~65% and RVSP of ~50 mmHg with inability to evaluate for diastolic dysfunction who re-presents to [facility] complaining of shortness of breath, wheezing and lower extremity edema. Ms. Clark reports her symptoms began this afternoon as she was trying to get up and walk which caused her to increase her supplemental oxygen to 6L NC when she suddenly became very SOB. She alleges her pulse-oximeter was reading in the~40% range so she then activated EMS. The squad treated her with a DuoNeb and put her on 6L NC with an oxygen saturation of 96% - but with patient still very dyspneic. Her family noted she seemed to worsen when her steroids were tapered. Her LE edema present last admission has not significantly changed but she feelslike she was in atrial fibrillation all day. She denies associated fever, chills, runny nose, sore throat, abdominal pain, nausea, vomiting, diarrhea, constipation, dysuria, hematuria, urinary frequency, headache or rash. In the ER she was noted to have clinical evidence of AE COPD complicated by an elevatedNT pro-BNP II of 1,349 pg/mL present on admission with a corresponding CXR that revealed no acute findings recommended compounded by laboratory evidence of Leukocytosis of 25.4K with Left-shift of 1.2% along with Lactic Acidosis of 2.5 mmol/L with no signs of infection suspected to be due to recent steroid administration with all of these issues culminating to Acute Hypoxic RespiratoryFailure requiring Airvo 50L with no ABG checked prior in the setting of OHS compounded by CT evidence of newly diagnosed ~1.4 cm Pericardial Effusion. She was then admitted to the PCU for ongoing care for a stay that is expected to extend beyond 2 midnights. [facility] Medical History (Updated 04/06/25 @ 05:[address] Orlando Bolden, ) Morbid obesity with BMI of 45.0-49.9, adult Chronic anticoagulation Elevated troponin COPD exacerbation CHF (congestive heart failure) Atrial fibrillation Acute dyspnea Edema of both legs Coronary artery disease Atrial fibrillation Hypertension Abnormal stress test Atrial fibrillation with rapid ventricular response Tachycardia Asthma Chronic airway obstruction Motion sickness Osteopenia Sleep apnea GERD (gastroesophageal reflux disease) Morbid obesity Anxiety Fatigue Smoker Depression Migraines Acute respiratory failure with hypoxia COPD exacerbation Acute sinusitis Cellulitis of left forearm Cellulitis and abscess of face Urinary tract infection Septic olecranon bursitis of right elbow Olecranon bursitis of right elbow Bursitis Sebaceous cyst of axilla Back pain Bronchitis URI (upper respiratory infection) Knee pain Hemorrhoids SOB (shortness of breath) Lung disease Arthritis Home Medications ?Medication ?Instructions ?Recorded ?Last Taken ?Type montelukast 10 mg tablet 10 mg PO QHS allergies 09/0704/04/25 History fluticasone fur. 200 mcg-umeclid 1 inh inhalation BATSHEVA Y SOB 07/08/23 04/05/25 History 62.5 mcg-vilant 25 mcg inhalat.powder (Trelegy Ellipta) rimegepant 75 mg disintegrating 75 mg PO DAILY PRN olesya tamika 07/08/23 Unknown History tablet (Nurtec ODT) albuterol sulfate 90 mcg/actuation 2 puff inhalation Q 4H PRN 02/13/24 04/05/25 History aerosol inhaler Shortness Of Breath diltiazem HCl 240 mg capsule,24 240 mg PO DAILY heart rate 02/19/24 04/05/25 History hr,extended release (Tiadylt ER) potassium chloride 20 mEq 20 meq PO DAILY #90 tabs 11/1804/05/25 Rx tablet,extended release duloxetine 60 mg capsule,delayed 60 mg PO DAILY mood 1 11/30/23 04/05/25 History release metoprolol tartrate 50 mg tablet 50 mg PO BID #180 tab s 10/09/24 04/05/25 Rx apixaban 5 mg tablet (Eliquis) 5 mg PO BID #60 tabs 04/05/25 Rx fluticasone propionate 50 2 spray intranasal QHS nasal 03/19/25 04/04/25 History mcg/actuation nasal spray,suspension (24 Hour Allergy Relief) furosemide 40 mg tablet 40 mg PO BID water pill 02/2504/05/25 History prednisone 20 mg tablet 40 mg (2 x 20 mg) PO DAILY # 10 tabs 03/24/25 04/05/25 Rx furosemide 40 mg tablet (Lasix) 40 mg PO BID #60 tabs 03/25/25 Unknown Rx Allergy/AdvReac Type Severity Reaction Status Date / Time feathers Allergy Intermediate Shortness Verified 04/05/25 20:27 of breath house dust Allergy Unknown Verified 04/05/25 20:27 mold Allergy Unknown Verified 04/05/25 20:27 Family History Mother CAD (coronary artery disease) Diabetes C. difficile colitis Father CAD (coronary artery disease) Sister CAD (coronary artery disease) Brother , 62 Colon cancer Son , 45 Drug overdose Other Atrial fibrillation CHF (congestive heart failure) Cancer Heart disease Surgical History Hx of cardiac catheterization (~04/09/24) H/O left cataract extraction H/O right heart catheterization (~07/19/22) Hx of removal of ovary (~1994) History of appendectomy (~1994) Social History Smoking Status: Former smoker alcohol intake: current alcohol intake frequency: holidays/special occasions only substance use type: does not use caffeine: Yes Type: coffee Number of servings: 2 ROS ROS Narrative Review of Systems: Constitutional: Patient denies fever or chills. Eyes: Patient denies changes in vision or discharge from eyes. ENT: Patient denies runny nose, sore throat or ear pain. Resp: Patient admits to shortness of breath and wheezing but she denies cough. CV: Patient admits to lower extremity edema and palpitations with heart racing but she denies chest pain, lightheadedness, syncope or near syncope. GI: Patient denies abdominal pain, nausea, vomiting, diarrhea or constipation. : Patient denies dysuria hematuria. MSK: Patient denies arthralgias or myalgias. Skin: Patient denies rash, abscess, wounds or jaundice. Psych: Patient denies symptoms of uncontrolled depression or anxiety. Neuro: Patient denies headache, paresthesias or focal neurologic weakness. Allergy: Patient denies lip swelling, tongue swelling or urticaria. Hematology: Patient denies easy bleeding or easy bruisability. Endocrinology: Patient denies polyuria, polydipsia, polyphagia or heat/cold intolerance. 14 point ROS otherwise negative except for positives noted above in HPI. Vital Signs Vital Signs Vital Signs: 04/05/25 20:27 04/05/25 20:30 04/05/25 20:40 Temperature 98.3 F 98.3 F Temperature Source Oral Oral Pulse Rate 87 87 117 H Respiratory Rate 22 H 22 H 18 Respiratory Effort Respiratory Depth Respiratory Pattern Normal Blood Pressure 160/89 H 160/89 H Blood Pressure Mean 112 112 Pulse Ox 97 97 Oxygen Delivery Method Nasal Cannula Oxygen Flow Rate (L/min) 6 Fraction of Inspired Oxygen (FIO2) 04/05/25 20:40 04/05/25 20:48 04/05/25 20:51 Temperature Temperature Source Pulse Rate 87 Respiratory Rate 18 Respiratory Effort Short of Breath Respiratory Depth Normal Respiratory Pattern Normal Normal Blood Pressure Blood Pressure Mean Pulse Ox 98 98 Oxygen Delivery Method Nasal Cannula Venturi Mask Oxygen Flow Rate (L/min) 6 6 Fraction of Inspired Oxygen (FIO2) 50 04/05/25 21:30 04/05/25 22:00 04/05/25 22:00 Temperature 98.1 F 97.7 F L Temperature Source Temporal Oral Pulse Rate 100 97 89 Respiratory Rate 19 H 14 16 Respiratory Effort Respiratory Depth Respiratory Pattern Blood Pressure 149/70 H 121/52 H 121/52 H Blood Pressure Mean 96 75 75 Pulse Ox 98 98 97 Oxygen Delivery Method Airvo Airvo Oxygen Flow Rate (L/min) 50 50 Fraction of Inspired Oxygen (FIO2) 50 50 04/05/25 22:54 Temperature 98 F Temperature Source Oral Pulse Rate 85 Respiratory Rate 13 Respiratory Effort Respiratory Depth Respiratory Pattern Blood Pressure 116/58 L Blood Pressure Mean 77 Pulse Ox 99 Oxygen Delivery Method Airvo Oxygen Flow Rate (L/min) 50 Fraction of Inspired Oxygen (FIO2) 50 Weight Weight: 259 lb 7.745 oz Body Mass Index (BMI) 49.0 Physical Exam Const alert, oriented x3 and no apparent distress Constitutional Narrative: Morbidly obese and nontoxic in appearance on Airvo. General Appearance: cooperative HEENT normocephalic, head/scalp atraumatic, hearing grossly normal bilaterally and moist oral mucous membranes Eyes PERRL, EOMs intact bilaterally and conjunctivae normal Neck no lymphadenopathy and supple Resp Resp Narrative: Diminished breath sounds throughout with expiratory wheezes. Auscultation: wheezes Cardio Cardio Narrative: Irregularly irregular. GI normal to inspection, nondistended, normoactive bowel sounds, soft to palpation,non-tender and non-distended GI Narrative: Morbidly obese. Extremity Extremity Narrative: ~1+ bilateral symmetrical lower extremity pitting edema. Skin Skin Narrative: Patient has no evidence of rash, abscess, wounds or jaundice. Neuro oriented x3, CN's II-XII intact bilaterally, moves all extremities and no focal motor deficits Sensorium / Orientation: awake, alert, oriented to person, oriented to place andoriented to time Speech: speech normal Psych affect normal Results Medical Records Data Attestation: I reviewed the patient's medical records Lab / Micro Data Attestation: I reviewed the patient's lab results. 04/06/25 04:45 04/06/25 04:45 Labs: Laboratory Results - last 24 hr 04/05/25 20:34: WBC 25.4 H, RBC 4.04 L, Hgb 11.7 L, Hct 38.9, MCV 96.3, MCH 29.0, MCHC 30.1 L, RDW Std Deviation 53.1 H, RDW Coeff of Beena 15.1 H, Plt Count 367, MPV 9.8, Immature Gran % (Auto) 1.200 H, Neut % (Auto) 92.3 H, Lymph % (Auto) 2.2 L, Gilmer % (Auto) 4.1, Eos % (Auto) 0.0, Baso % (Auto) 0.2, Absolute Neuts (auto) 23.4 H, Absolute Lymphs (auto) 0.57 L, Nucleated RBC % 0, Differential Comment SCANNED, Platelet Estimate ADEQUATE, Basophilic Stippling RARE, Anisocytosis 1+, Stomatocytes 2+, Sodium 138, Potassium 4.7, Chloride 89 L, Carbon Dioxide 42.2 H, Anion Gap 7, BUN 23 H, Creatinine 0.77, Estim Creat Clear Calc 77.14, Est GFR (MDRD) Non-Af 82, BUN/Creatinine Ratio 29.9 H, [id number] H, Lactic Acid 2.5 H*, Calcium 9.2, Troponin T High Sens 10 D, NT pro BNP II 1349 H Rhythm Strip Rhythm Strip: A-fib Rate: 97 Ectopy: None Imaging Radiology Impression Chest X-Ray 04/05/25 21:20 IMPRESSION: No Acute Findings. Reading Location: [facility] Imaging Services [address] [place], [place] [address] CT Chest, Abd, Pelvis WO Cont MR#: [id number] Acct: [id number] Name: PIPER CLARK Rep #: [id number] : 1955 F 69 From: Mitchell Collier MD PCP: Dr. Genia Chappell MD Status: ADM IN Study: CT Chest, Abd, Pelvis WO Cont Date of Exam: 04/05/25 Exam# [id number] Ordering Dr: Orlando Bolden DO PROCEDURE: CT CHEST, ABD, PELVIS WO CONT 04/05/2025 REASON FOR EXAM: LEUKOCYTOSIS AND LACTIC ACIDOSIS WITH ? INFECTION TECHNIQUE: Chest, abdomen and pelvis CT without intravenous contrast. Coronal and Sagittal reconstruction series were provided. One or more dose reduction techniques were used (e.g., Automated exposure control, adjustment of the mA and/or kV according to patient size, use of iterative reconstruction technique. RADIATION DOSE SUMMARY: CTDlvol: 50 mGy DLP: 2098.96 mGycm COMPARISON: Chest CT 09/08/2024 FINDINGS: CT CHEST: Thoracic aorta appears within limits on noncontrast imaging. Atherosclerotic calcification noted. Mild appearing coronary calcification. Pericardial effusion is present measuring around 1.4 cm axial 88. Small posterior layering left pleural effusion. No adenopathy. Motion artifact. Difficult to appreciate the centrilobular emphysema due to motion. The central airways appear patent. Platelike atelectasis at the lingula and left lower lobe and medial right middlelobe. Small band of likely atelectasis at the right lower lobe posterior recess. The lungs otherwise appear clear. No focal consolidation. CT ABDOMEN / PELVIS: The liver, gallbladder, adrenal glands, kidneys, pancreas and spleen appear within limits on noncontrast imaging. Aortoiliac atherosclerotic calcification. No abdominal aortic aneurysm. No adenopathy. No bowel dilation or free air. No evidence of bowel wall thickening or adjacentfat inflammatory stranding. Diverticulosis without diverticulitis. The appendix is not identified, no secondary signs. The adnexa, uterus and bladder appear within limits. No free fluid. Visualized soft tissues appear unremarkable. Lower lumbar spondylosis, degenerative facet changes. Visualized osseous structures otherwise appear within limits. Fat containing umbilical hernia without stranding. Small fat containing left inguinal hernia without stranding. CT/CT Chest, Abd, Pelvis WO Cont IMPRESSION: Pericardial effusion is present measuring around 1.4 cm axial 88, clinically correlate. Small posterior layering left pleural effusion. Bilateral atelectasis without focal consolidation identified. No evidence of acute intra-abdominal process on noncontrast imaging. Diverticulosis without diverticulitis. Reading Location: [facility] CC: Dr. Genia Chappell MD; Dr. Orlando Bolden DO ~ Medical Fee Clerk: Signed Assessment & Plan Assessment/Plan (1) Acute exacerbation of chronic obstructive pulmonary disease (COPD): (2) Pericardial effusion: (3) Leukocytosis: QUALIFIERS: Leukocytosis type: unspecified Qualified Code(s): D72.829 - Elevated white blood cell count, unspecified (4) Lactic acidosis: (5) Acute hypoxic respiratory failure: (6) Bilateral edema of lower extremity: (7) Elevated brain natriuretic peptide (BNP) level: (8) Morbid obesity with BMI of 45.0-49.9, adult: (9) Obesity hypoventilation syndrome: (10) WINIFRED (obstructive sleep apnea): (11) Atrial fibrillation: QUALIFIERS: Atrial fibrillation type: unspecified chronic Qualified Code(s): I48.20 - Chronic atrial fibrillation, unspecified (12) Chronic anticoagulation: PLAN: Plan 1. AE COPD; with Leukocytosis and Lactic Acidosis likely due to recent steroids- Admit to PCU. Continue Solu-Medrol IV begun in the ER plus scheduled and as needed nebulizers. Maintain empiric IV piperacillin-tazobactam started in ER incase of RLL infiltrate with noncontrasted CT pending at this time. Give acetaminophen as needed pain or fever. 2. ~1.4 cm newly diagnosed Pericardial Effusion on CT this admission complicating #1 - Check echocardiogram to evaluate. Check ESR and CRP. Check viral respiratory panel. 3. Elevated NT pro-BNP II of 1,369 pg/mL present on admission with an ongoing alleged ~30 pound weight gain in ~2+ bilateral lower extremity edema with recentecho that revealed LVEF ~65% compounding #1 & #2 - Maintain IV furosemide began in ER daily. Check NT pro-BNP II daily to follow trend. 4. Mkrod-av-Cdtsoxm Respiratory Failure requiring Airvo attributable to #1 - #3- Patient switched to BiPAP with a persistently high pCO2 in the ~80 mmHg range (which seems to be her baseline) with repeat ABG pending at this time. 5. Morbid Obesity; with BMI of 49 this admission (up from 46.8 last admission) plus WINIFRED with OHS adding to the burden of disease outlined from #1 - #4 - Weightloss will be recommended. Continue nocturnal CPAP as previous. This complicates her case and may hamper recovery. 6. Chronic atrial fibrillation; on diltiazem and apixaban adding to the medicalcomplexity outlined from #1 - #4 - Maintain current regimen. 7. Essential hypertension; on metoprolol and furosemide - Maintain home regimenexcept furosemide will be switched to IV in light of #2. 8. History of hyperlipidemia; currently not on treatment - Check lipid profile this admission to confirm status. 9. Narcolepsy; on modafinil - Resume modafinil as before. 10. Seasonal allergies; on montelukast - Maintain current treatment. 11. Migraine headaches; on Nurtec ODT daily - Hold this agent while inpatient as there is a contraindication with coadministration with modafinil. 12. Depression; on duloxetine - Stable. Continue duloxetine as previous. 13. History of cellulitis and septic olecranon bursitis of the Right elbow - Noted no evidence of recurrence at this time. 14. History of hemorrhoids - Stable. 14. History of appendectomy (~1994) - Noted. 15. History of Right heart catheterization (~2021) - Noted. 17. History of removal of ovary (~1994) - Noted for the sake of completeness. 18. History of GERD; currently not on treatment - Start PPI in light of steroids used to treat #1. 19. Osteopenia - Stable. 20. OA; with chronic back pain on acetaminophen twice daily - Give acetaminophen prn for pain or fever. 21. DVT prophylaxis - Patient is already on apixaban for #5 which will be continued. Total time: Approximately (but not less than) 75 minutes. Charges/Coding Visit Charges Inpatient E&M: 54492 Init Hosp L3 04/06/25 0610 <Electronically signed by Orlando Bolden DO> Cosigner Signature (if applicable): CC: Dr. Genia Chappell MD; Dr. Orlando Bolden DO~ Signed [facility] Work Phone: [phone] [phone] History and physical note [facility] Medical Records Department [address] [place] [id number] H&P Exam - Hospitalist 04/05/252257 MR#: [id number] Acct: [id number] Name: PIPER CLARK Rep #:[id number] : 1955 69 From: Orlando Zavaleta DO PCP: Dr. Genia Chappell MD Status:ADM IN Location: [address] HPI - General General Date of Admission: 04/05/25 Date of Service: 04/05/25 Chief Complaint: SOB. HPI Narrative PIPER CLARK, is a 69 F with a past medical history of essential hypertension; on metoprolol andfurosemide, history of hyperlipidemia; currentlynot on treatment, morbid obesity; with BMI of 49 this admission, WINIFRED, chronic atrial fibrillation; on diltiazem and apixaban, CAD, history of tobacco abuse; with subsequent asthma/COPD; on 4L NC at baseline on Trelegy Ellipta and as needed albuterol, narcolepsy; on modafinil, seasonal allergies; on montelukast, migraine headaches; on Nurtec ODT daily, depression; on duloxetine, history of cellulitis, history of septic olecranon bursitis of the Right elbow, history of hemorrhoids, history of appendectomy (~1994), history of Right heart catheterization (~2021) history of removal of ovary (~1994), history of GERD; currently not on treatment, osteopenia, OA; with chronic back pain on acetaminophen twice daily and recent admission here from 2024 to April29, 2025 for treatment of AE COPD with elevated NT pro-BNP II of 1,003 pg/mL andmildly elevated troponin T of 19 bg/L complicated by Gwzqy-qf-Pixzvlv Respiratory Insufficiency with LVEF ~65% and RVSP of ~50 mmHg with inability to evaluate for diastolic dysfunction who re-presents to [facility] complaining of shortness of breath, wheezing and lower extremity edema. Ms. Clark reports her symptoms began this afternoon as she was trying to get up and walk which caused her to increase her supplemental oxygen to 6L NC when she suddenly became very SOB. She alleges her pulse-oximeter was reading in the~40% range so she then activated EMS. The squad treated her with a DuoNeb and put her on 6L NC with an oxygen saturation of 96% - but with patient still very dyspneic. Her family noted she seemed to worsen when her steroids were tapered. Her LE edema present last admission has not significantly changed but she feelslike she was in atrial fibrillation all day.She denies associated fever, chills, runny nose, sore throat, abdominal pain, nausea, vomiting, diarrhea, constipation, dysuria, hematuria, urinary frequency, headache or rash. In the ER she was noted to have clinical evidence of AE COPD complicated by an elevatedNT pro-BNP II of 1,349 pg/mL present on admission with a corresponding CXR that revealed no acute findings recommended compounded by laboratory evidence of Leukocytosis of 25.4K with Left-shift of 1.2% along with Lactic Acidosis of 2.5 mmol/L with no signs of infection suspected to be due to recent steroid administration with all of these issues culminating to Acute Hypoxic RespiratoryFailure requiring Airvo 50L with no ABG checkedprior in the setting of OHS compounded by CT evidence of newly diagnosed ~1.4 cm Pericardial Effusio n. She was then admitted to the PCU for ongoing care for a stay that is expected to extend beyond 2midnights. [facility] Medical History (Updated 04/06/25 @ 05:[address] Orlando Bolden, ) Morbid obesity with BMI of 45.0-49.9, adult Chronic anticoagulation Elevated troponin COPD exacerbation CHF (congestive heart failure) Atrial fibrillation Acute dyspnea Edema of both legs Coronary artery disease Atrial fibrillation Hypertension Abnormal stress test Atrial fibrillation with rapid ventricular response Tachycardia Asthma Chronic airway obstruction Motion sickness Osteopenia Sleep apnea GERD (gastroesophageal reflux disease) Morbid obesity Anxiety Fatigue Smoker Depression Migraines Acute respiratory failure with hypoxia COPD exacerbation Acute sinusitis Cellulitis of left forearm Cellulitis and abscess of face Urinary tract infection Septic olecranon bursitis of right elbow Olecranon bursitis of right elbow Bursitis Sebaceous cyst of axilla Back pain Bronchitis URI (upper respiratory infection) Knee pain Hemorrhoids SOB (shortness of breath) Lung disease Arthritis Home Medications ?Medication ?Instructions ?Recorded ?Last Taken ?Type montelukast 10 mg tablet 10 mg PO QHS allergies 09/0704/04/25 History fluticasone fur. 200 mcg-umeclid 1 inh inhalation BATSHEVA Y SOB 07/08/23 04/05/25 History 62.5 mcg-vilant 25 mcg inhalat.powder (Trelegy Ellipta) rimegepant 75 mg disintegrating 75 mg PO DAILY PRN olesya tamika 07/08/23 Unknown History tablet (Nurtec ODT) albuterol sulfate 90 mcg/actuation 2 puff inhalation Q 4H PRN 02/13/24 04/05/25 History aerosol inhaler Shortness Of Breath diltiazem HCl 240 mg capsule,24 240 mg PO DAILY heart rate 02/19/24 04/05/25 History hr,extended release (Tiadylt ER) potassium chloride 20 mEq 20 meq PO DAILY #90 tabs 11/1804/05/25 Rx tablet,extended release duloxetine 60 mg capsule,delayed 60 mg PO DAILY mood 1 11/30/23 04/05/25 History release metoprolol tartrate 50 mg tablet 50 mg PO BID #180 tab s 10/09/24 04/05/25 Rx apixaban 5 mg tablet (Eliquis) 5 mg PO BID #60 tabs 04/05/25 Rx fluticasone propionate 50 2 spray intranasal QHS nasal 03/19/25 04/04/25 History mcg/actuation nasal spray,suspension (24 Hour Allergy Relief) furosemide 40 mg tablet 40 mg PO BID water pill 02/2504/05/25 History prednisone 20 mg tablet 40 mg (2 x 20 mg) PO DAILY # 10 tabs 03/24/25 04/05/25 Rx furosemide 40 mg tablet (Lasix) 40 mg PO BID #60 tabs 03/25/25 Unknown Rx Allergy/AdvReac Type Severity Reaction Status Date / Time feathers Allergy Intermediate Shortness Verified 04/05/25 20:27 of breath house dust Allergy Unknown Verified 04/05/25 20:27 mold Allergy Unknown Verified 04/05/25 20:27 Family History Mother CAD (coronary artery disease) Diabetes C. difficile colitis Father CAD (coronary artery disease) Sister CAD (coronary artery disease) Brother , 62 Colon cancer Son , 45 Drug overdose Other Atrial fibrillation CHF (congestive heart failure) Cancer Heart disease Surgical History Hx of cardiac catheterization (~04/09/24) H/O left cataract extraction H/O right heart catheterization (~07/19/22) Hx of removal of ovary (~1994) History of appendectomy (~1994) Social History Smoking Status: Former smoker alcohol intake: current alcohol intake frequency: holidays/special occasions only substance use type: does not use caffeine: Yes Type: coffee Number of servings: 2 ROS ROS Narrative Review of Systems: Constitutional: Patient denies fever or chills. Eyes: Patient denies changes in vision or discharge from eyes. ENT: Patient denies runny nose, sore throat or ear pain. Resp: Patient admits to shortness of breath and wheezing but she denies cough. CV: Patient admits to lower extremity edema and palpitations with heart racing but she denies chestpain, lightheadedness, syncope or near syncope. GI: Patient denies abdominal pain, nausea, vomiting, diarrhea or constipation. : Patient denies dysuria hematuria. MSK: Patient denies arthralgias or myalgias. Skin: Patient denies rash, abscess, wounds or jaundice. Psych: Patient denies symptoms of uncontrolled depression or anxiety. Neuro: Patient denies headache, paresthesias or focal neurologic weakness. Allergy: Patient denies lip swelling, tongue swelling or urticaria. Hematology: Patient denies easy bleeding or easy bruisability. Endocrinology: Patient denies polyuria, polydipsia, polyphagia or heat/cold intolerance. 14 point ROS otherwise negative except for positives noted above in HPI. Vital Signs Vital Signs Vital Signs: 04/05/25 20:27 04/05/25 20:30 04/05/25 20:40 Temperature 98.3 F 98.3 F Temperature Source Oral Oral Pulse Rate 87 87 117 H Respiratory Rate 22 H 22 H 18 Respiratory Effort Respiratory Depth Respiratory Pattern Normal Blood Pressure 160/89 H 160/89 H Blood Pressure Mean 112 112 Pulse Ox 97 97 Oxygen Delivery Method Nasal Cannula Oxygen Flow Rate (L/min) 6 Fraction of Inspired Oxygen (FIO2) 04/05/25 20:40 04/05/25 20:48 04/05/25 20:51 Temperature Temperature Source Pulse Rate 87 Respiratory Rate 18 Respiratory Effort Short of Breath Respiratory Depth Normal Respiratory Pattern Normal Normal Blood Pressure Blood Pressure Mean Pulse Ox 98 98 Oxygen Delivery Method Nasal Cannula Venturi Mask Oxygen Flow Rate (L/min) 6 6 Fraction of Inspired Oxygen (FIO2) 50 04/05/25 21:30 04/05/25 22:00 04/05/25 22:00 Temperature 98.1 F 97.7 F L Temperature Source Temporal Oral Pulse Rate 100 97 89 Respiratory Rate 19 H 14 16 Respiratory Effort Respiratory Depth Respiratory Pattern Blood Pressure 149/70 H 121/52 H 121/52 H Blood Pressure Mean 96 75 75 Pulse Ox 98 98 97 Oxygen Delivery Method Airvo Airvo Oxygen Flow Rate (L/min) 50 50 Fraction of Inspired Oxygen (FIO2) 50 50 04/05/25 22:54 Temperature 98 F Temperature Source Oral Pulse Rate 85 Respiratory Rate 13 Respiratory Effort Respiratory Depth Respiratory Pattern Blood Pressure 116/58 L Blood Pressure Mean 77 Pulse Ox 99 Oxygen Delivery Method Airvo Oxygen Flow Rate (L/min) 50 Fraction of Inspired Oxygen (FIO2) 50 Weight Weight: 259 lb 7.745 oz Body Mass Index (BMI) 49.0 Physical Exam Const alert, oriented x3 and no apparent distress Constitutional Narrative: Morbidly obese and nontoxic in appearance on Airvo. General Appearance: cooperative HEENT normocephalic, head/scalp atraumatic, hearing grossly normal bilaterally and moist oral mucous membranes Eyes PERRL, EOMs intact bilaterally and conjunctivae normal Neck no lymphadenopathy and supple Resp Resp Narrative: Diminished breath sounds throughout with expiratory wheezes. Auscultation: wheezes Cardio Cardio Narrative: Irregularly irregular. GI normal to inspection, nondistended, normoactive bowel sounds, soft to palpation,non-tender and non-distended GI Narrative: Morbidly obese. Extremity Extremity Narrative: ~1+ bilateral symmetrical lower extremity pitting edema. Skin Skin Narrative: Patient has no evidence of rash, abscess, wounds or jaundice. Neuro oriented x3, CN's II-XII intact bilaterally, moves all extremities and no focal motor deficits Sensorium / Orientation: awake, alert, oriented to person, oriented to place andoriented to time Speech: speech normal Psych affect normal Results Medical Records Data Attestation: I reviewed the patient's medical records Lab / Micro Data Attestation: I reviewed the patient's lab results. 04/06/25 04:45 04/06/25 04:45 Labs: Laboratory Results - last 24 hr 04/05/25 20:34: WBC 25.4 H, RBC 4.04 L, Hgb 11.7 L, Hct 38.9, MCV 96.3, MCH 29.0, MCHC 30.1 L, RDW Std Deviation 53.1 H, RDW Coeff of Beena 15.1 H, Plt Count 367, MPV 9.8, Immature Gran % (Auto) 1.200 H, Neut % (Auto) 92.3 H, Lymph % (Auto) 2.2 L, Gilmer % (Auto) 4.1, Eos % (Auto) 0.0, Baso % (Auto) 0.2, Absolute Neuts (auto) 23.4 H, Absolute Lymphs (auto) 0.57 L, Nucleated RBC % 0, Differential Comment SCANNED, Platelet Estimate ADEQUATE, Basophilic Stippling RARE, Anisocytosis 1+, Stomatocytes 2+, Sodium 138, Potassium 4.7, Chloride 89 L, Carbon Dioxide 42.2 H, Anion Gap 7, BUN 23 H, Creatinine0.77, Estim Creat Clear Calc 77.14, Est GFR (MDRD) Non-Af 82, BUN/Creatinine Ratio 29.9 H, [id number] H, Lactic Acid 2.5 H*, Calcium 9.2, Troponin T High Sens 10 D, NT pro BNP II 1349 H Rhythm Strip Rhythm Strip: A-fib Rate: 97 Ectopy: None Imaging Radiology Impression Chest X-Ray 04/05/25 21:20 IMPRESSION: No Acute Findings. Reading Location: [facility] Imaging Services [address] [place] [address] CT Chest, Abd, Pelvis WO Cont MR#: [id number] Acct: [id number] Name: PIPER CLARK Rep #: [id number] : 1955 F 69 From: Mitchell Collier MD PCP: Dr. Genia Chappell MD Status: ADM IN Study: CT Chest, Abd, Pelvis WO Cont Date of Exam: 04/05/25 Exam# [id number] Ordering Dr: Orlando Bolden DO PROCEDURE: CT CHEST, ABD, PELVIS WO CONT 04/05/2025 REASON FOR EXAM: LEUKOCYTOSIS AND LACTIC ACIDOSIS WITH ? INFECTION TECHNIQUE: Chest, abdomen and pelvis CT without intravenous contrast. Coronal and Sagittal reconstruction series were provided. One or more dose reduction techniques were used (e.g., Automated exposure control, adjustment of the mA and/or kV according to patient size, use of iterative reconstruction technique. RADIATION DOSE SUMMARY: CTDlvol: 50 mGy DLP: 2098.96 mGycm COMPARISON: Chest CT 09/08/2024 FINDINGS: CT CHEST: Thoracic aorta appears within limits on noncontrast imaging. Atherosclerotic calcification noted. Mild appearing coronary calcification. Pericardial effusion is present measuring around 1.4 cm axial 88. Small posterior layering left pleural effusion. No adenopathy. Motion artifact. Difficult to appreciate the centrilobular emphysema due to motion. The central airways appear patent. Platelike atelectasis at the lingula and left lower lobe and medial right middlelobe. Small band oflikely atelectasis at the right lower lobe posterior recess. The lungs otherwise appear clear. No focal consolidation. CT ABDOMEN / PELVIS: The liver, gallbladder, adrenal glands, kidneys, pancreas and spleen appear within limits on noncontrast imaging. Aortoiliac atherosclerotic calcification. No abdominal aortic aneurysm. No adenopathy. No bowel dilation or free air. No evidence of bowel wall thickening or adjacentfat inflammatory stranding. Diverticulosis without diverticulitis. The appendix is not identified, no secondary signs. The adnexa, uterus and bladder appear within limits. No free fluid. Visualized soft tissues appear unremarkable. Lower lumbar spondylosis, degenerative facet changes. Visualized osseous structures otherwise appear within limits. Fat containing umbilical hernia without stranding. Small fat containing left inguinal hernia without stranding. CT/CT Chest, Abd, Pelvis WO Cont IMPRESSION: Pericardial effusion is present measuring around 1.4 cm axial 88, clinically correlate. Small posterior layering left pleural effusion. Bilateral atelectasis without focal consolidation identified. No evidence of acute intra-abdominal process on noncontrast imaging. Diverticulosis without diverticulitis. Reading Location: [id number] CC: Dr. Genia Chappell MD; Dr. Orlando Bolden DO ~ Medical Fee Clerk: Signed Assessment & Plan Assessment/Plan (1) Acute exacerbation of chronic obstructive pulmonary disease (COPD): (2) Pericardial effusion: (3) Leukocytosis: QUALIFIERS: Leukocytosis type: unspecified Qualified Code(s): D72.829 - Elevated white blood cell count, unspecified (4) Lactic acidosis: (5) Acute hypoxic respiratory failure: (6) Bilateral edema of lower extremity: (7) Elevated brain natriuretic peptide (BNP) level: (8) Morbid obesity with BMI of 45.0-49.9, adult: (9) Obesity hypoventilation syndrome: (10) WINIFRED (obstructive sleep apnea): (11) Atrial fibrillation: QUALIFIERS: Atrial fibrillation type: unspecified chronic Qualified Code(s): I48.20 - Chronic atrial fibrillation, unspecified (12) Chronic anticoagulation: PLAN: Plan 1. AE COPD; with Leukocytosis and Lactic Acidosis likely due to recent steroids- Admit to PCU. Continue Solu-Medrol IV begun in the ER plus scheduled and as needed nebulizers. Maintain empiric IV piperacillin-tazobactam started in ER incase of RLL infiltrate with noncontrasted CT pending at this time. Give acetaminophen as needed pain or fever. 2. ~1.4 cm newly diagnosed Pericardial Effusion on CT this admission complicating #1 - Check echocardiogram to evaluate. Check ESR and CRP. Check viral respiratory panel. 3. Elevated NT pro-BNP II of 1,369 pg/mL present on admission with an ongoing alleged ~30 pound weight gain in ~2+ bilateral lower extremity edema with recentecho that revealed LVEF ~65% compounding #1 & #2 - Maintain IV furosemide began in ER daily. Check NT pro-BNP II daily to follow trend. 4. Uknrf-ot-Vjkjbjn Respiratory Failure requiring Airvo attributable to #1 - #3- Patient switched to BiPAP with a persistently high pCO2 in the ~80 mmHg range (which seems to be her baseline) with repeat ABG pending at this time. 5. Morbid Obesity; with BMI of 49 this admission (up from 46.8 last admission) plus WINIFRED with OHS adding to the burden of disease outlined from #1 - #4 - Weightloss will be recommended. Continue nocturnal CPAP as previous. This complicates her case and may hamper recovery. 6. Chronic atrial fibrillation; on diltiazem and apixaban adding to the medicalcomplexity outlined from #1 - #4 - Maintain current regimen. 7. Essential hypertension; on metoprolol and furosemide - Maintain home regimenexcept furosemide will be switched to IV in light of #2. 8. History of hyperlipidemia; currently not on treatment - Check lipid profile this admission to confirm status. 9. Narcolepsy; on modafinil - Resume modafinil as before. 10. Seasonal allergies; on montelukast - Maintain current treatment. 11. Migraine headaches; on Nurtec ODT daily - Hold this agent while inpatient as there is a contraindication with coadministration with modafinil. 12. Depression; on duloxetine - Stable. Continue duloxetine as previous. 13. History of cellulitis and septic olecranon bursitis of the Right elbow - Noted no evidence of recurrence at this time. 14. History of hemorrhoids - Stable. 14. History of appendectomy (~1994) - Noted. 15. History of Right heart catheterization (~2021) - Noted. 17. History of removal of ovary (~1994) - Noted for the sake of completeness. 18. History of GERD; currently not on treatment - Start PPI in light of steroids used to treat #1. 19. Osteopenia - Stable. 20. OA; with chronic back pain on acetaminophen twice daily - Give acetaminophen prn for pain or fever. 21. DVT prophylaxis - Patient is already on apixaban for #5 which will be continued. Total time: Approximately (but not less than) 75 minutes. Charges/Coding Visit Charges Inpatient E&M: 97302 Init Hosp L3 04/06/25 0610 Cosigner Signature (if applicable): CC: Dr. Genia Chappell MD; Dr. Orlando Bolden, DO~ Signed [facility]05-12-2025 Discharge summary Author Andi Ortiz [facility] Note Date/Time April 05, 2025 11:02 pm [facility] Medical Records Department [address] [place] [address] Emergency Department Summary 04/05/25 MR#: [id number] Acct: [id number] Name: PIPER CLARK Rep #:[id number] : 1955 69 From: Andi Ortiz MD PCP: Dr. Genia Chappell MD Status:REG ER Location: ED HPI History of Present Illness Chief Complaint: Shortness of Breath Informant: patient, family and EMS Narrative Narrative: 69-year-old female presenting for dyspnea. She was in the hospital and discharged almost 2 weeks ago, for similar issues, has continued to have dyspneawith exertion, and was told to stay at 4 L of oxygen when she is at rest and bump it up to 6 whenever she walks around the house or does some light exertion. She is frequently checking her pulse oximetry. Tonight she turned up to 6 to walk and when she got back to her chair, she was very out of breath, she checkedher pulse ox and it was down as low as the 40% range and would not come back up and she was continuing to be worse with regards to her dyspnea and therefore EMSwas called. They gave a DuoNeb, shortened the amount of tubing that she was on and put her on their oxygen at 6 L and upon getting here after the nebulizer sheis at 96% but she still very dyspneic although she states the DuoNeb did seem tohelp a little. She denies any chest pain. She has had significant edema of herlegs ever since she was in the hospital that has not really changed, family states her weight went down a little bit but has gone back up since, now similarto when she was discharged from the hospital. She denies any presyncope or syncope but states she has paroxysmal atrial fibrillation and feels like she hasbeen in A-fib all day today. She states this is not usually the case for her. [facility] Medical History Chronic anticoagulation Elevated troponin Morbid obesity with BMI of 45.0-49.9, adult COPD exacerbation CHF (congestive heart failure) Atrial fibrillation Acute dyspnea Edema of both legs Coronary artery disease Atrial fibrillation Hypertension Abnormal stress test Atrial fibrillation with rapid ventricular response Tachycardia Asthma Chronic airway obstruction Motion sickness Osteopenia Sleep apnea GERD (gastroesophageal reflux disease) Morbid obesity Anxiety Fatigue Smoker Depression Migraines Acute respiratory failure with hypoxia COPD exacerbation Acute sinusitis Cellulitis of left forearm Cellulitis and abscess of face Urinary tract infection Septic olecranon bursitis of right elbow Olecranon bursitis of right elbow Bursitis Sebaceous cyst of axilla Back pain Bronchitis URI (upper respiratory infection) Knee pain Hemorrhoids SOB (shortness of breath) Lung disease Arthritis Home Medications ?Medication ?Instructions ?Recorded ?Last Taken ?Type montelukast 10 mg tablet 10 mg PO QHS allergies 09/0703/24/25 History fluticasone fur. 200 mcg-umeclid 1 inh inhalation BATSHEVA Y SOB 07/08/23 03/25/25 History 62.5 mcg-vilant 25 mcg inhalat.powder (Trelegy Ellipta) rimegepant 75 mg disintegrating 75 mg PO DAILY PRN olesya tamika 07/08/23 Unknown History tablet (Nurtec ODT) albuterol sulfate 90 mcg/actuation 2 puff inhalation Q 4H PRN 02/13/24 Unknown History aerosol inhaler Shortness Of Breath diltiazem HCl 240 mg capsule,24 240 mg PO DAILY 03/25/25 History hr,extended release (Tiadylt ER) potassium chloride 20 mEq 20 meq PO DAILY #90 tabs 11/1803/25/25 Rx tablet,extended release duloxetine 60 mg capsule,delayed 60 mg PO DAILY 03/25/25 History release metoprolol tartrate 50 mg tablet 50 mg PO BID #180 tab s 10/09/24 03/25/25 Rx apixaban 5 mg tablet (Eliquis) 5 mg PO BID #60 tabs 03/25/25 Rx cetirizine 10 mg tablet (24Hour 10 mg PO DAILY allergy 03/19/25 03/25/25 History Allergy) fluticasone propionate 50 2 spray intranasal DAILY 03/25/25 History mcg/actuation nasal spray,suspension (24 Hour Allergy Relief) furosemide 40 mg tablet 40 mg PO BID 03/19/25 History prednisone 20 mg tablet 40 mg (2 x 20 mg) PO DAILY # 10 tabs 03/24/25 03/25/25 Rx furosemide 40 mg tablet (Lasix) 40 mg PO BID #60 tabs 03/25/25 Unknown Rx Allergy/AdvReac Type Severity Reaction Status Date / Time feathers Allergy Intermediate Shortness Verified 04/05/25 20:27 of breath house dust Allergy Unknown Verified 04/05/25 20:27 mold Allergy Unknown Verified 04/05/25 20:27 Family History Mother CAD (coronary artery disease) Diabetes C. difficile colitis Father CAD (coronary artery disease) Sister CAD (coronary artery disease) Brother , 62 Colon cancer Son , 45 Drug overdose Other Atrial fibrillation CHF (congestive heart failure) Cancer Heart disease Surgical History Hx of cardiac catheterization (~04/09/24) H/O left cataract extraction H/O right heart catheterization (~07/19/22) Hx of removal of ovary (~1994) History of appendectomy (~1994) Social History Smoking Status: Former smoker alcohol intake: current alcohol intake frequency: holidays/special occasions only substance use type: does not use caffeine: Yes Type: coffee Number of servings: 2 ROS ROS ED Constitutional Constitutional ED: Denies chills or fever(s) Eyes Eyes: Denies change in vision or diplopia ENT ENT ED: Denies rhinorrhea or sore throat Cardiovascular Cardiovascular: Reports leg edema, palpitations and racing heartbeat; Denies chest pain, lightheadedness or syncope Respiratory/Chest Respiratory/Chest: Reports dyspnea and dyspnea on exertion; Denies cough Gastrointestinal Gastrointestinal: Denies abdominal pain, diarrhea, nausea or vomiting Genitourinary Genitourinary ED: Denies dysuria or hematuria Musculoskeletal Musculoskeletal: Denies back pain or neck pain Integumentary Denies abscess or rash Neurologic Neurologic: Denies headache(s), paresthesias or weakness Psychiatric Psychiatric: Denies suicidal thoughts EXAM Physical Exam Const Vital Signs: 04/05/25 20:27 04/05/25 20:30 04/05/25 20:40 Temperature 98.3 F 98.3 F Temperature Source Oral Oral Pulse Rate 87 87 117 H Respiratory Rate 22 H 22 H 18 Respiratory Effort Respiratory Depth Respiratory Pattern Normal Blood Pressure 160/89 H 160/89 H Blood Pressure Mean 112 112 Pulse Ox 97 97 Oxygen Delivery Method Nasal Cannula Oxygen Flow Rate (L/min) 6 Fraction of Inspired Oxygen (FIO2) 04/05/25 20:40 04/05/25 20:48 04/05/25 20:51 Temperature Temperature Source Pulse Rate 87 Respiratory Rate 18 Respiratory Effort Short of Breath Respiratory Depth Normal Respiratory Pattern Normal Normal Blood Pressure Blood Pressure Mean Pulse Ox 98 98 Oxygen Delivery Method Nasal Cannula Venturi Mask Oxygen Flow Rate (L/min) 6 6 Fraction of Inspired Oxygen (FIO2) 50 04/05/25 21:30 04/05/25 22:00 04/05/25 22:00 Temperature 98.1 F 97.7 F L Temperature Source Temporal Oral Pulse Rate 100 97 89 Respiratory Rate 19 H 14 16 Respiratory Effort Respiratory Depth Respiratory Pattern Blood Pressure 149/70 H 121/52 H 121/52 H Blood Pressure Mean 96 75 75 Pulse Ox 98 98 97 Oxygen Delivery Method Airvo Airvo Oxygen Flow Rate (L/min) 50 50 Fraction of Inspired Oxygen (FIO2) 50 50 04/05/25 22:54 Temperature 98 F Temperature Source Oral Pulse Rate 85 Respiratory Rate 13 Respiratory Effort Respiratory Depth Respiratory Pattern Blood Pressure 116/58 L Blood Pressure Mean 77 Pulse Ox 99 Oxygen Delivery Method Airvo Oxygen Flow Rate (L/min) 50 Fraction of Inspired Oxygen (FIO2) 50 Positive well nourished, well developed and obese Constitutional Narrative: Mild respiratory distress, speaking in 7-10 word sentences General Appearance ED: well developed Nutritional Appearance: obese HEENT Reports moist mucous membranes normocephalic and atraumatic Eyes PERRL and EOMs intact bilaterally Neck full ROM, supple and no JVD Resp Resp Narrative: Diffusely diminished and sounds tight with end expiratory wheezes. Mild respiratory distress. Trachea midline equal breath sounds bilaterally. Cardio Cardio Narrative: Faint heart sounds Rate: tachycardic Rhythm: abnormal rhythm irregularly irregular GI non-tender and non-distended Auscultation: normoactive bowel sounds Palpation: soft Back/Spine no CVA tenderness General Back: other FROM Extremity normal to inspection General Extremety ED: Yes edema; Negative for pulses abnormal or tenderness General Extremity: edema bilateral lower extremity Details: moderate; Negative for pulses abnormal Neuro oriented x3, CN's II-XII intact bilaterally and no sensory deficits noted Sensorium / Orientation: awake and alert Motor Exam: strength 5/5 throughout Psych mental status grossly normal Skin no rashes or lesions noted and no wounds Sepsis Attestation Sepsis Attestation: Agree w/Sepsis Date exam was performed: 04/05/25 Time exam was performed: 22:15 Possible Source of Sepsis: Pulmonary Sepsis Organ Dysfunction Criteria Present: Acute Respiratory Failure (New need for BiPAP/CPAP or MV) and Lactic Acid > 2 mmol/L Fluid Resuscitation Fluid Resuscitation ordered: Fluids not indicated (significant BLE edema, stableHR/BP) Reason for lesser fluid bolus:: Concern for fluid overload MDM MDM MDM Narrative Medical decision making narrative: Had respiratory give the patient some aerosols and we also gave her an injectionof terbutaline, as she was very tight and having trouble breathing. Respiratorywas considering BiPAP we tried Airvo high flow nasal cannula first, which reallyseem to help the patient, she is satting 98% on 50 L Airvo. She states it is helping her breathing. Her white blood count returned at 25.4 and she is hyperglycemic at 305. She confirms that she is still on prednisone, she states she is at the end of the taper and only has a couple days left. Her leukocytosis could be a combination of stress from respiratory distress as well as the steroids, she does not have any urinary symptoms or signs of infection anywhere else in 1 view chest x-ray on my interpretation shows some atelectasis at the bases but no obvious consolidation, radiology in agreement also no pneumothorax. Her proBNP is abnormal but when corrected for age, is inconsistent with acute decompensated congestive heart failure. Lactic acid is a little elevated at 2.5. Therefore, we are going to boost her steroids with Solu-Medrol and I will provide empiric antibiotics, discussed with hospitalist for admission. History & Record Review Additional record(s) reviewed:: Other (Echo several weeks ago showing EF 65%, RVsystolic pressure 50, limited evaluation of diastolic function) Lab Data Attestation: I reviewed the patient's lab results. Labs: Laboratory Results - last 24 hr 04/05/25 20:34 WBC 25.4 H RBC 4.04 L Hgb 11.7 L Hct 38.9 MCV 96.3 MCH 29.0 MCHC 30.1 L RDW Std Deviation 53.1 H RDW Coeff of Beena 15.1 H Plt Count 367 MPV 9.8 Immature Gran % (Auto) 1.200 H Neut % (Auto) 92.3 H Lymph % (Auto) 2.2 L Gilmer % (Auto) 4.1 Eos % (Auto) 0.0 Baso % (Auto) 0.2 Absolute Neuts (auto) 23.4 H Absolute Lymphs (auto) 0.57 L Nucleated RBC % 0 Differential Comment SCANNED Platelet Estimate ADEQUATE Basophilic Stippling RARE Anisocytosis 1+ Stomatocytes 2+ Sodium 138 Potassium 4.7 Chloride 89 L Carbon Dioxide 42.2 H Anion Gap 7 BUN 23 H Creatinine 0.77 Estim Creat Clear Calc 77.14 Est GFR (MDRD) Non-Af 82 BUN/Creatinine Ratio 29.9 H Glucose 305 H Lactic Acid 2.5 H* Calcium 9.2 Troponin T High Sens 10 D NT pro BNP II 1349 H Radiography Diagnostic Testing: Clinical Impression(s) from Imaging Studies Chest X-Ray 04/05/25 21:20 IMPRESSION: No Acute Findings. Reading Location: [facility] Rhythm Strip Rhythm Strip: A-fib Rate: 97 Ectopy: None EKG Initial EKG: Attestation: I personally reviewed and interpreted this EKG as follows: Interpretation: No Acute Injury Pattern and Atrial Fibrillation (90's) Prior EKG tracings: available for review Prior: Unchanged Management Discussion w/another healthcare provider: Hospitalist Critical Care Time Critical Care Time: Yes Critical care time (excluding procedures): 30-74 minutes (32 min), Including time spent:, Discussing w/Patient &/or Family/Secretary Of Police, Discussing w/Consultants, Arranging Admission or Transfer and Performing Direct Patient Care at Bedside Discharge Plan Dx/Rx/DC Orders Clinical Impression: Acute hypoxic respiratory failure, Atrial fibrillation, Bilateral edema of lower extremity, Acute exacerbation of chronic obstructive pulmonary disease (COPD) Disposition Disposition: Acute Care Hospital [facility] What to do if you have Problems For any increased pain, shortness of breath, bleeding, nausea or vomiting, chestpain, or any unexpected problems, contact your Primary Care Provider. Call [facility] ([phone]) or report to the closest Emergency Room. Call 911 if necessary. 04/05/252301 <Electronically signed by Andi Ortiz MD> Cosigner Signature (if applicable): CC: Dr. Genia Chappell MD ~ Signed [facility] Work Phone: [phone]) 351-662405-12-2025 Radiology Diagnostic study note [facility] Imaging Services [address] [place] [address] CT Chest, Abd, Pelvis WO Cont MR#: [id number] Acct: [id number] Name: PIPER CLARK Rep #: [id number] : 1955 F 69 From: Juvenal Collier MD PCP: Dr. Genia Chappell MD Status: ADM IN Study:CT Chest, Abd, Pelvis WO Cont Date of E xam: 04/05/25 Exam# [id number] Ordering Dr: Orlando Crump DO PROCEDURE: CT CHEST, ABD, PELVIS WO CONT 04/05/2025 REASON FOR EXAM: LEUKOCYTOSIS AND LACTIC ACIDOSIS WITH ? INFECTION TECHNIQUE: Chest, abdomen and pelvis CT without intravenous contrast. Coronal and Sagittal reconstruction series were provided. One or more dose reduction techniques were used (e.g., Automated exposure control, adjustment of the mA and/or kV according to patient size, use of iterative reconstruction technique. RADIATION DOSE SUMMARY: CTDlvol: 50 mGy DLP: 2098.96 mGycm COMPARISON: Chest CT 09/08/2024 FINDINGS: CT CHEST: Thoracic aorta appears within limits on noncontrast imaging. Atherosclerotic calcification noted. Mild appearing coronary calcification. Pericardial effusion is present measuring around 1.4 cm axial 88. Small posterior layering left pleural effusion. No adenopathy. Motion artifact. Difficult to appreciate the centrilobular emphysema due to motion. The central airways appear patent. Platelike atelectasis at the lingula and left lower lobe and medial right middlelobe. Small band oflikely atelectasis at the right lower lobe posterior recess. The lungs otherwise appear clear. No focal consolidation. CT ABDOMEN / PELVIS: The liver, gallbladder, adrenal glands, kidneys, pancreas and spleen appear within limits on noncontrast imaging. Aortoiliac atherosclerotic calcification. No abdominal aortic aneurysm. No adenopathy. No bowel dilation or free air. No evidence of bowel wall thickening or adjacentfat inflammatory stranding. Diverticulosis without diverticulitis. The appendix is not identified, no secondary signs. The adnexa, uterus and bladder appear within limits. No free fluid. Visualized soft tissues appear unremarkable. Lower lumbar spondylosis, degenerative facet changes. Visualized osseous structures otherwise appear within limits. Fat containing umbilical hernia without stranding. Small fat containing left inguinal hernia without stranding. CT/CT Chest, Abd, Pelvis WO Cont IMPRESSION: Pericardial effusion is present measuring around 1.4 cm axial 88, clinically correlate. Small posterior layering left pleural effusion. Bilateral atelectasis without focal consolidation identified. No evidence of acute intra-abdominal process on noncontrast imaging. Diverticulosis without diverticulitis. Reading Location: [id number] CC: Dr. Genia Chappell MD; Dr. Orlando Bolden DO ~ Medical Fee Clerk: Signed [facility]05-11-2025 Discharge summary [facility] Medical Records Department [address] [place] [address] Emergency Department Summary 04/05/25 MR#: [id number] Acct: [id number] Name: PIPER CLARK Rep #:[id number] : 1955 69 From: Andi Ortiz MD PCP: Dr. Genia Chappell MD Status:REG ER Location: ED HPI History of Present Illness Chief Complaint: Shortness of Breath Informant: patient, family and EMS Narrative Narrative: 69-year-old female presenting for dyspnea. She was in the hospital and discharged almost 2 weeks ago, for similar issues, has continued to have dyspneawith exertion, and was told to stay at 4 L of oxygen when she is at rest and bump it up to 6 whenever she walks around the house or does some light e xertion. She is frequently checking her pulse oximetry. Tonight she turned up to 6 to walk and whenshe got back to her chair, she was very out of breath, she checkedher pulse ox and it was down as low as the 40% range and would not come back up and she was continuing to be worse with regards to her dyspnea and therefore EMSwas called. They gave a DuoNeb, shortened the amount of tubing that she was on and put her on their oxygen at 6 L and upon getting here after the nebulizer sheis at 96% but she still very dyspneic although she states the DuoNeb did seem tohelp a little. She denies any chest pain. She has had significant edema of herlegs ever since she was in the hospital that has not really changed, family states her weight went down a little bit but has gone back up since, now similarto when she was discharged from the hospital. She denies any presyncope or syncope but states she has paroxysmal atrial fibrillation and feels like she hasbeen in A-fib all day today. She states this is not usually the case for her. [facility] Medical History Chronic anticoagulation Elevated troponin Morbid obesity with BMI of 45.0-49.9, adult COPD exacerbation CHF (congestive heart failure) Atrial fibrillation Acute dyspnea Edema of both legs Coronary artery disease Atrial fibrillation Hypertension Abnormal stress test Atrial fibrillation with rapid ventricular response Tachycardia Asthma Chronic airway obstruction Motion sickness Osteopenia Sleep apnea GERD (gastroesophageal reflux disease) Morbid obesity Anxiety Fatigue Smoker Depression Migraines Acute respiratory failure with hypoxia COPD exacerbation Acute sinusitis Cellulitis of left forearm Cellulitis and abscess of face Urinary tract infection Septic olecranon bursitis of right elbow Olecranon bursitis of right elbow Bursitis Sebaceous cyst of axilla Back pain Bronchitis URI (upper respiratory infection) Knee pain Hemorrhoids SOB (shortness of breath) Lung disease Arthritis Home Medications ?Medication ?Instructions ?Recorded ?Last Taken ?Type montelukast 10 mg tablet 10 mg PO QHS allergies 09/0703/24/25 History fluticasone fur. 200 mcg-umeclid 1 inh inhalation BATSHEVA Y SOB 07/08/23 03/25/25 History 62.5 mcg-vilant 25 mcg inhalat.powder (Trelegy Ellipta) rimegepant 75 mg disintegrating 75 mg PO DAILY PRN olesya tamika 07/08/23 Unknown History tablet (Nurtec ODT) albuterol sulfate 90 mcg/actuation 2 puff inhalation Q 4H PRN 02/13/24 Unknown History aerosol inhaler Shortness Of Breath diltiazem HCl 240 mg capsule,24 240 mg PO DAILY 03/25/25 History hr,extended release (Tiadylt ER) potassium chloride 20 mEq 20 meq PO DAILY #90 tabs 11/1803/25/25 Rx tablet,extended release duloxetine 60 mg capsule,delayed 60 mg PO DAILY 03/25/25 History release metoprolol tartrate 50 mg tablet 50 mg PO BID #180 tab s 10/09/24 03/25/25 Rx apixaban 5 mg tablet (Eliquis) 5 mg PO BID #60 tabs 03/25/25 Rx cetirizine 10 mg tablet (24Hour 10 mg PO DAILY allergy 03/19/25 03/25/25 History Allergy) fluticasone propionate 50 2 spray intranasal DAILY 03/25/25 History mcg/actuation nasal spray,suspension (24 Hour Allergy Relief) furosemide 40 mg tablet 40 mg PO BID 03/19/25 History prednisone 20 mg tablet 40 mg (2 x 20 mg) PO DAILY # 10 tabs 03/24/25 03/25/25 Rx furosemide 40 mg tablet (Lasix) 40 mg PO BID #60 tabs 03/25/25 Unknown Rx Allergy/AdvReac Type Severity Reaction Status Date / Time feathers Allergy Intermediate Shortness Verified 04/05/25 20:27 of breath house dust Allergy Unknown Verified 04/05/25 20:27 mold Allergy Unknown Verified 04/05/25 20:27 Family History Mother CAD (coronary artery disease) Diabetes C. difficile colitis Father CAD (coronary artery disease) Sister CAD (coronary artery disease) Brother , 62 Colon cancer Son , 45 Drug overdose Other Atrial fibrillation CHF (congestive heart failure) Cancer Heart disease Surgical History Hx of cardiac catheterization (~04/09/24) H/O left cataract extraction H/O right heart catheterization (~07/19/22) Hx of removal of ovary (~1994) History of appendectomy (~1994) Social History Smoking Status: Former smoker alcohol intake: current alcohol intake frequency: holidays/special occasions only substance use type: does not use caffeine: Yes Type: coffee Number of servings: 2 ROS ROS ED Constitutional Constitutional ED: Denies chills or fever(s) Eyes Eyes: Denies change in vision or diplopia ENT ENT ED: Denies rhinorrhea or sore throat Cardiovascular Cardiovascular: Reports leg edema, palpitations and racing heartbeat; Denies chest pain, lightheadedness or syncope Respiratory/Chest Respiratory/Chest: Reports dyspnea and dyspnea on exertion; Denies cough Gastrointestinal Gastrointestinal: Denies abdominal pain, diarrhea, nausea or vomiting Genitourinary Genitourinary ED: Denies dysuria or hematuria Musculoskeletal Musculoskeletal: Denies back pain or neck pain Integumentary Denies abscess or rash Neurologic Neurologic: Denies headache(s), paresthesias or weakness Psychiatric Psychiatric: Denies suicidal thoughts EXAM Physical Exam Const Vital Signs: 04/05/25 20:27 04/05/25 20:30 04/05/25 20:40 Temperature 98.3 F 98.3 F Temperature Source Oral Oral Pulse Rate 87 87 117 H Respiratory Rate 22 H 22 H 18 Respiratory Effort Respiratory Depth Respiratory Pattern Normal Blood Pressure 160/89 H 160/89 H Blood Pressure Mean 112 112 Pulse Ox 97 97 Oxygen Delivery Method Nasal Cannula Oxygen Flow Rate (L/min) 6 Fraction of Inspired Oxygen (FIO2) 04/05/25 20:40 04/05/25 20:48 04/05/25 20:51 Temperature Temperature Source Pulse Rate 87 Respiratory Rate 18 Respiratory Effort Short of Breath Respiratory Depth Normal Respiratory Pattern Normal Normal Blood Pressure Blood Pressure Mean Pulse Ox 98 98 Oxygen Delivery Method Nasal Cannula Venturi Mask Oxygen Flow Rate (L/min) 6 6 Fraction of Inspired Oxygen (FIO2) 50 04/05/25 21:30 04/05/25 22:00 04/05/25 22:00 Temperature 98.1 F 97.7 F L Temperature Source Temporal Oral Pulse Rate 100 97 89 Respiratory Rate 19 H 14 16 Respiratory Effort Respiratory Depth Respiratory Pattern Blood Pressure 149/70 H 121/52 H 121/52 H Blood Pressure Mean 96 75 75 Pulse Ox 98 98 97 Oxygen Delivery Method Airvo Airvo Oxygen Flow Rate (L/min) 50 50 Fraction of Inspired Oxygen (FIO2) 50 50 04/05/25 22:54 Temperature 98 F Temperature Source Oral Pulse Rate 85 Respiratory Rate 13 Respiratory Effort Respiratory Depth Respiratory Pattern Blood Pressure 116/58 L Blood Pressure Mean 77 Pulse Ox 99 Oxygen Delivery Method Airvo Oxygen Flow Rate (L/min) 50 Fraction of Inspired Oxygen (FIO2) 50 Positive well nourished, well developed and obese Constitutional Narrative: Mild respiratory distress, speaking in 7-10 word sentences General Appearance ED: well developed Nutritional Appearance: obese HEENT Reports moist mucous membranes normocephalic and atraumatic Eyes PERRL and EOMs intact bilaterally Neck full ROM, supple and no JVD Resp Resp Narrative: Diffusely diminished and sounds tight with end expiratory wheezes. Mild respiratory distress. Trachea midline equal breath sounds bilaterally. Cardio Cardio Narrative: Faint heart sounds Rate: tachycardic Rhythm: abnormal rhythm irregularly irregular GI non-tender and non-distended Auscultation: normoactive bowel sounds Palpation: soft Back/Spine no CVA tenderness General Back: other FROM Extremity normal to inspection General Extremety ED: Yes edema; Negative for pulses abnormal or tenderness General Extremity: edema bilateral lower extremity Details: moderate; Negative for pulses abnormal Neuro oriented x3, CN's II-XII intact bilaterally and no sensory deficits noted Sensorium / Orientation: awake and alert Motor Exam: strength 5/5 throughout Psych mental status grossly normal Skin no rashes or lesions noted and no wounds Sepsis Attestation Sepsis Attestation: Agree w/Sepsis Date exam was performed: 04/05/25 Time exam was performed: 22:15 Possible Source of Sepsis: Pulmonary Sepsis Organ Dysfunction Criteria Present: Acute Respiratory Failure (New need for BiPAP/CPAP or MV) and Lactic Acid > 2 mmol/L Fluid Resuscitation Fluid Resuscitation ordered: Fluids not indicated (significant BLE edema, stableHR/BP) Reason for lesser fluid bolus:: Concern for fluid overload MDM MDM MDM Narrative Medical decision making narrative: Had respiratory give the patient some aerosols and we also gave her an injectionof terbutaline, as she was very tight and having trouble breathing. Respiratorywas considering BiPAP we tried Airvo high flow nasal cannula first, which reallyseem to help the patient, she is satting 98% on 50 L Airvo. She states it is helping her breathing. Her white blood count returned at 25.4 and she is hyperglycemic at 305. She confirms that she is still on prednisone, she states she is at the end of the taper and only has a couple days left. Her leukocytosis could be a combination of stress from respiratory distress as well as the steroids, she does not have any urinary symptoms or signs of infection anywhere else in 1 view chest x-ray on my interpretation shows some atelectasis at the bases but no obvious consolidation, radiology in agreement also no pneumothorax. Her proBNP is abnormal but when corrected for age, is inconsistent with acute decompensated congestive heart failure. Lactic acid is a little elevated at 2.5. Therefore, we are going to boost her steroids with Solu-Medrol and I will provide empiric antibiotics, discussed with hospitalist for admission. History & Record Review Additional record(s) reviewed:: Other (Echo several weeks ago showing EF 65%, RVsystolic pressure 50, limited evaluation of diastolic function) Lab Data Attestation: I reviewed the patient's lab results. Labs: Laboratory Results - last 24 hr 04/05/25 20:34 WBC 25.4 H RBC 4.04 L Hgb 11.7 L Hct 38.9 MCV 96.3 MCH 29.0 MCHC 30.1 L RDW Std Deviation 53.1 H RDW Coeff of Beena 15.1 H Plt Count 367 MPV 9.8 Immature Gran % (Auto) 1.200 H Neut % (Auto) 92.3 H Lymph % (Auto) 2.2 L Gilmer % (Auto) 4.1 Eos % (Auto) 0.0 Baso % (Auto) 0.2 Absolute Neuts (auto) 23.4 H Absolute Lymphs (auto) 0.57 L Nucleated RBC % 0 Differential Comment SCANNED Platelet Estimate ADEQUATE Basophilic Stippling RARE Anisocytosis 1+ Stomatocytes 2+ Sodium 138 Potassium 4.7 Chloride 89 L Carbon Dioxide 42.2 H Anion Gap 7 BUN 23 H Creatinine 0.77 Estim Creat Clear Calc 77.14 Est GFR (MDRD) Non-Af 82 BUN/Creatinine Ratio 29.9 H Glucose 305 H Lactic Acid 2.5 H* Calcium 9.2 Troponin T High Sens 10 D NT pro BNP II 1349 H Radiography Diagnostic Testing: Clinical Impression(s) from Imaging Studies Chest X-Ray 04/05/25 21:20 IMPRESSION: No Acute Findings. Reading Location: [facility] Rhythm Strip Rhythm Strip: A-fib Rate: 97 Ectopy: None EKG Initial EKG: Attestation: I personally reviewed and interpreted this EKG as follows: Interpretation: No Acute Injury Pattern and Atrial Fibrillation (90's) Prior EKG tracings: available for review Prior: Unchanged Management Discussion w/another healthcare provider: Hospitalist Critical Care Time Critical Care Time: Yes Critical care time (excluding procedures): 30-74 minutes (32 min), Including time spent:, Discussing w/Patient &/or Family/Secretary Of Police, Discussing w/Consultants, Arranging Admission or Transfer and Performing Direct Patient Care at Bedside Discharge Plan Dx/Rx/DC Orders Clinical Impression: Acute hypoxic respiratory failure, Atrial fibrillation, Bilateral edema of lower extremity, Acute exacerbation of chronic obstructive pulmonary disease (COPD) Disposition Disposition: Acute Care Hospital [facility] What to do if you have Problems For any increased pain, shortness of breath, bleeding, nausea or vomiting, chestpain, or any unexpected problems, contact your Primary Care Provider. Call [facility] ([phone]) or report tothe closest Emergency Room. Call 911 if necessary. 04/05/25 2302 Cosigner Signature (if applicable): CC: Dr. Genia Chappell MD ~ Signed [facility]05-11-2025 Radiology Diagnostic study note [facility] Imaging Services [address] [place], [place] [address] Chest 1 View (Portable) MR#: [id number] Acct: [id number] Name: PIPER CLARK Rep #: [id number] : 1955 F 69 From: Amber Cortez MD PCP: Dr. Genia Chappell MD Status: PRE ER Study:Chest 1 View (Portable) Date of Exam: 04/05/25 Exam# [id number] Ordering Dr: Sal Ortiz MD PROCEDURE: CHEST 1 VIEW (PORTABLE) 04/05/2025 REASON FOR EXAM: SOB TECHNIQUE: Frontal view of the chest. COMPARISON: 03/30/2025 FINDINGS: Hardware: None Heart: Heart size is mildly enlarged. Lungs: Mild bibasilar atelectasis. No focal consolidation. No pneumothorax. No pleural effusion. Bones: The bones are unremarkable. Other: RAD/Chest 1 View (Portable) IMPRESSION: No Acute Findings. Reading Location: [facility] CC: Dr. Andi Ortiz MD; Dr. Genia Chappell MD ~ Medical Fee Clerk: Signed [facility]05-06-2025 Radiology Diagnostic study note [facility] Imaging Services [address] [place], [place] [id number] Chest PA and Lateral MR#: [id number] Acct: [id number] Name: PIPER CLARK Rep #: [id number] : 1955 F 69 From: Henrry Fowler MD PCP: Dr. Genia Cahppell MD Status: REG CL I Study:Chest PA and Lateral Date of Exam: 03/30/25 Exam# [id number] Ordering Dr: Ny Chappell MD PROCEDURE: 03/30/2025 REASON FOR EXAM: DIMINISHED LUNG SOUNDS TECHNIQUE: Frontal and lateral views of the chest. COMPARISON: Chest x-ray dated 03/25/2025. FINDINGS: The cardiac silhouette is moderately enlarged. No focal consolidation is seen within the lungs. There are small bilateral pleural effusions. Vascular congestion appears present. Underlying hyper lucency is present within the lungs. No acute osseous abnormality is seen. RAD/Chest PA and Lateral IMPRESSION: Markedly enlarged cardiac silhouette with congestion and small bilateral effusions may suggest CHF/pulmonary edema. Correlate clinically. Underlying COPD may be present. Reading Location: [id number] CC: Dr. Genia Chappell MD ~ Medical Fee Clerk: Signed [facility]04-29-2025 Consult note [facility] Medical Records Department [address] [place] [address] Counseling Note - Pharmacy 03/24/25 1345 MR#: [id number] Acct: [id number] Name: PIPER CLARK Rep #:[id number] : 1955 69 From: Lesly King PCP: Dr. Genia Chappell MD Status:ADM IN Y Location: [place] [address] Pharmacy [facility] has performed discharge medication reconciliation and counseling for this patient. 1. Prednisone 40mg PO daily x 5 days The patient's discharge medication list was reviewed for discrepancies and discrepancies were resolved. The patient was counseled on the following discharge medications and changes in medications for homegoing were reviewed. The Reason for Use, instructions for use, and potential side effects were reviewed for all new medications. The patient's questions regarding all of their medications were answered. The patient was able to verbally demonstrate an understanding of their dischargemedications. Medications at Discharge Home Medications montelukast 10 mg tablet 10 mg PO QHS allergies 09/07/18 fluticasone fur. 200 mcg-umeclid 62.5 mcg-vilant 25 mcg inhalat.powder (Trelegy Ellipta) 1 inh inhalation DAILY SOB 07/08/23 rimegepant 75 mg disintegrating tablet (Nurtec ODT) 75 mg PO DAILY PRN migraine 07/08/23 albuterol sulfate 90 mcg/actuation aerosol inhaler 2 puff inhalation Q4H PRN Shortness Of Breath 02/13/24 diltiazem HCl 240 mg capsule,24 hr,extended release (Tiadylt ER) 240 mg PO QDAY 02/19/24 potassium chloride 20 mEq tablet,extended release 20 meq PO DAILY #90 tabs 05/07/24 duloxetine 60 mg capsule,delayed release 60 mg PO QDAY 09/30/24 metoprolol tartrate 50 mg tablet 50 mg PO BID #180 tabs 11/14/24 apixaban 5 mg tablet (Eliquis) 5 mg PO BID #60 tabs 02/16/25 cetirizine 10 mg tablet (24Hour Allergy) 10 mg PO DAILY allergy 03/19/25 fluticasone propionate 50 mcg/actuation nasal spray,suspension (24 Hour Allergy Relief) 2 spray intranasal DAILY 03/19/25 furosemide 40 mg tablet 40 mg PO Q12H 03/19/25 prednisone 20 mg tablet 40 mg (2 x 20 mg) PO DAILY #10 tabs 03/24/25 03/24/25 1345 Date _ Leslyanton Kign Nicanor Signature (if applicable): Date CC: ~ Signed [facility]04-29-2025 Discharge summary Author C[facility] Note Date/Time March 24, 2025 12: 42pm [facility] Medical Records Department [address] [place] [address] Instructions for Home/Discharge Instructions 03/24/25 1241 MR#: [id number] Acct: [id number] Name: PIPER CLARK Rep #:[id number] : 1955 69 From: Cindi Lizarraga MD PCP: Dr. Genia Chappell MD Status:ADM IN Discharge Instructions Diet Discharge Diet: Low fat / Low cholesterol DC O2, CPAP, BIPAP needs Home O2 Discharge instructions: Yes Type of respiratory needs?: Oxygen Oxygen frequency: At rest and With Ambulation Oxygen liters per minute during Ambulation: 6 Dressing / Incision Discharge Activity: Return to Normal Activity Weight Bearing Status: Weight bearing as tolerated Dressing / Incision Call your doctor if you observe: Fever of 101 or Higher, Shortness of breath, Dizziness, Swelling in the ankles and Chest pain Follow Up Care Test Results: Test results from this visit will be discussed in further detail at your follow- up appointment, if applicable. Discharge Plan Admission Admit Date/Time: 03/19/25 22:05 Primary Reason for Your Visit: COPD exacerbation Attending Provider: Cindi Lizarraga Primary Care Provider: Genia Chappell Consulting Providers: Orlando Bolden; Chai Rider Instructions Patient Instructions: Discharge Instructions: COPD Discharge Orders/Prescriptions Prescriptions: New prednisone 20 mg tablet 40 mg PO DAILY Qty: 10 0RF Continued diltiazem HCl [Tiadylt ER] 240 mg capsule,extended release 24 hr 240 mg PO QDAY potassium chloride 20 mEq tablet extended release 20 meq PO DAILY Qty: 90 3RF duloxetine 60 mg capsule,delayed release(DR/EC) 60 mg PO QDAY montelukast 10 MG tablet 10 mg PO QHS albuterol sulfate 90 mcg/actuation HFA aerosol inhaler 2 puff Inhalation Q4H PRN (Reason: Shortness Of Breath) Nurtec ODT 75 mg tablet,disintegrating 75 mg PO DAILY PRN (Reason: migraine) Patient Comments: TAKE 1 (ONE) TABLET BY MOUTH DAILY IF NEEDED FOR MIGRAINE Trelegy Ellipta 200-62.5-25 mcg blister with device 1 inh inhalation DAILY fluticasone propionate [24 Hour Allergy Relief] 50 mcg/actuation spray,suspension 2 spray intranasal DAILY Rx Instructions: administer into each nostril furosemide 40 mg tablet 40 mg PO Q12H cetirizine [24Hour Allergy] 10 mg tablet 10 mg PO DAILY metoprolol tartrate 50 mg tablet 50 mg PO BID Qty: 180 3RF Eliquis 5 mg tablet 5 mg PO BID Qty: 60 11RF Referrals / Follow Up: Christy Perea MD [Med Staff - Brush Painter] - Genia Chappell MD [Primary Care Provider] - 03/25/25 11:30 am (With Nurse Practioner Azael ) Disposition Disposition (needs filled in before D/C Order can be placed): Home Health Service 03/24/25 1242<Electronically signed by Cindi Lizarraga MD>Cindi Lizarraga MD CC: Dr. Genia Chappell MD; Dr. Orlando Bolden DO; Dr. Chai Rider DO ~ Signed [facility] Work Phone: [phone]) 446-160704-29-2025 Discharge summary Author Cindi Lizarraga [facility] Note Date/Time March 24, 2025 2:2 6pm [facility] Medical Records Department [address] [place] [address] Discharge Summary 03/24/25 1242 MR#: [id number] Acct: [id number] Name: PIPER CLARK Rep #:[id number] : 1955 69 From: Cindi Lizarraga MD PCP: Dr. Genia Chappell MD Status:ADM IN Location: [place] [address] Providers Date of Admission: 03/19/25 Date of Discharge: 03/24/25 Primary Care Physician: Genia Chappell MD Reason For Visit: AE COPD AE CHF AND RESPIRATORY INSUFFICIENCY Diagnosis Discharge Diagnosis (1) COPD exacerbation: Status: Chronic Code(s): J44.1 - Chronic obstructive pulmonary disease with (acute) exacerbation (2) CHF (congestive heart failure): Status: Acute Code(s): I50.9 - Heart failure, unspecified Qualifiers: Heart failure chronicity: acute Heart failure type: unspecified Qualified Code(s): I50.9 - Heart failure, unspecified (3) Atrial fibrillation: Status: Acute Code(s): I48.91 - Unspecified atrial fibrillation Qualifiers: Atrial fibrillation type: unspecified chronic Qualified Code(s): I48.20- Chronic atrial fibrillation, unspecified Plan #Aute exacerbation of COPD * On breathing treatments bronchodilators. On azithromycin. On IV Solu-Medrol. * titrate oxygen to maintain sats >90% * Sputum culture is pending. * #Acute HFpEF: On IV Lasix 20 mg twice daily. Monitor intake and output. Fluid restriction to 1500 cc daily. #A-fib: This is chronic. Heart rate went up with ambulation today. On Eliquis and Cardizem as well as metoprolol DVT prophylaxis: On Eliquis Medications at Discharge Home Medications montelukast 10 mg tablet 10 mg PO QHS allergies 09/07/18 fluticasone fur. 200 mcg-umeclid 62.5 mcg-vilant 25 mcg inhalat.powder (Trelegy Ellipta) 1 inh inhalation DAILY SOB 07/08/23 rimegepant 75 mg disintegrating tablet (Nurtec ODT) 75 mg PO DAILY PRN migraine 07/08/23 albuterol sulfate 90 mcg/actuation aerosol inhaler 2 puff inhalation Q4H PRN Shortness Of Breath 02/13/24 diltiazem HCl 240 mg capsule,24 hr,extended release (Tiadylt ER) 240 mg PO QDAY 02/19/24 potassium chloride 20 mEq tablet,extended release 20 meq PO DAILY #90 tabs 05/07/24 duloxetine 60 mg capsule,delayed release 60 mg PO QDAY 09/30/24 metoprolol tartrate 50 mg tablet 50 mg PO BID #180 tabs 10/09/24 apixaban 5 mg tablet (Eliquis) 5 mg PO BID #60 tabs 02/16/25 cetirizine 10 mg tablet (24Hour Allergy) 10 mg PO DAILY allergy 03/19/25 fluticasone propionate 50 mcg/actuation nasal spray,suspension (24 Hour Allergy Relief) 2 spray intranasal DAILY 03/19/25 furosemide 40 mg tablet 40 mg PO Q12H 03/19/25 prednisone 20 mg tablet 40 mg (2 x 20 mg) PO DAILY #10 tabs 03/24/25 Hospital Course Operations None Procedures None Summary of Care Provided Minutes Spent on Discharge: 45 Hospital Course: Patient is a 69-year-old female with a past medical history as outlined including COPD with chronic respiratory failure on 4 L of oxygen at home was admitted to the ED on 03/19/2025 with complaint of shortness of breath, wheezing and lower extremity edema. Her symptoms are started about 2 weeks prior to admission and was of gradual onset and gradually worsening. She saw her PCP whoincreased her Lasix 40 mg twice daily and also increased her potassium but her symptoms did not improve so she came into the ED. She admitted to about 30 pound weight gain over 10 months prior to admission and also had increased lethargy and sensation of chest pressure as well as lower extremity edema. Ordered patient proBNP was elevated at thousand 3 chest x-ray showed possible small left pleural effusion and age indeterminate fracture of the left humeral neck with clinical correlation recommended. She was admitted and managed for acute exacerbation of heart failure as well as acute exacerbation of COPD. She started on diuresis with IV Lasix. She had a 2D echo which showed EF of 65% andunable to assess diastolic dysfunction due to arrhythmia. His shortness of breath gradually improved and she was weaned down to her baseline oxygen. She was on 3.5 L of oxygen at home. With exertion she was initially requiring up to10 L of oxygen but was eventually weaned down to her home dose of 6 L of oxygen with exertion. She was discharged on p.o. Lasix 40 mg twice daily as well as p.o. prednisone 40 mg daily for 5-day course. She is follow-up with her primarycare doctor in 1 to 2 weeks. She is also to follow-up with cardiology within 1 to 2 weeks. Patient seen and examined prior to discharge. She had no active complaints and felt well. Review of systems otherwise negative. Labs and vitals reviewed. Medication reviewed and reconciled. Physical Exam Const alert, oriented x3 and no apparent distress Constitutional Narrative: class III obesity General Appearance: cooperative, comfortable, well kempt and well developed Orientation / Consciousness: awake, oriented to person, oriented to place and oriented to time Exam Limitations: no limitations HEENT normocephalic, head/scalp atraumatic, hearing grossly normal bilaterally, moist oral mucous membranes and oropharynx normal Mouth: oral and palatal mucosa normal Eyes PERRL, EOMs intact bilaterally and conjunctivae normal Neck no lymphadenopathy, supple, no JVD, thyroid normal and no carotid bruits General: trachea midline Lymph Lymphatic: no lymphadenopathy noted and no lymphedema noted Resp normal respiratory effort, no retractions and no use of accessory muscles Resp Narrative: mildly diminished breath sounds bibasally, no wheezes or crackles. On 4L of oxygen by nasal canula Auscultation: wheezes expiratory wheezes; Negative for rales or rhonchi Cardio regular rate, regular rhythm, S1 normal heart sound, S2 normal heart sound, no murmurs, no rub and no gallops Cardio Narrative: Irregularly irregular at ~80 bpm. GI normal to inspection, nondistended, normoactive bowel sounds, soft to palpation,non-tender and non-distended GI Narrative: obese Extremity normal capillary refill, no clubbing, cyanosis or edema and no calf tenderness Extremity Narrative: ~2+ bilateral lower extremity pitting edema. General Extremity: no tenderness to palpation of joints or extremities Skin no rashes or lesions noted General Skin Exam: no breakdown Neuro oriented x3, CN's II-XII intact bilaterally, moves all extremities, no focal motor deficits and no sensory deficits noted Sensorium / Orientation: awake, alert, oriented to person, oriented to place andoriented to time Speech: speech normal Motor Exam: strength 5/5 throughout and general weakness Psych thought process normal, cooperative and affect normal Appearance: appropriate Weight / BMI Weight Weight: 254 lb 10.142 oz Body Mass Index (BMI) 46.5 ABG / Lab / Microbiology Data 03/24/25 06:20 03/24/25 06:20 Laboratory: Laboratory Results - last 24 hr 03/24/25 06:20: WBC 18.1 H, RBC 4.32, Hgb 12.3, Hct 40.5, MCV 93.8, MCH 28.5, MCHC 30.4 L, RDW Std Deviation 48.5 H, RDW Coeff of Beena 14.0, Plt Count 362, MPV 9.7, Immature Gran % (Auto) 0.900, Neut % (Auto) 89.5 H, Lymph % (Auto) 3.6 L, Gilmer % (Auto) 3.8, Eos % (Auto) 2.0, Baso % (Auto) 0.2, Absolute Neuts (auto) 16.2 H, Absolute Lymphs (auto) 0.66 L, Nucleated RBC % 0, Sodium 134, Potassium 5.6 H, Chloride 89 L, Carbon Dioxide 40.9 H, Anion Gap 4 L, BUN 32 H, Creatinine0.74, Estim Creat Clear Calc 77.65, Est GFR (MDRD) Non-Af 87, BUN/Creatinine Ratio 43.1 H, Glucose 163 H, Calcium 9.2 Microbiology: Microbiology 03/23/25 13:23 Sputum, Expectorated/Coughed Gram Stain - Final 03/23/25 13:23 Sputum, Expectorated/Coughed Respiratory Culture - Preliminary Appears to be normal respiratory maribel. Further studies to follow. D/C Instructions Discharge Diet: Low fat / Low cholesterol Discharge Activity: Return to Normal Activity Weight Bearing Status: Weight bearing as tolerated Call your doctor if you observe: Fever of 101 or Higher, Shortness of breath, Dizziness, Swelling in the ankles and Chest pain DC O2, CPAP, BIPAP Needs Home O2 Discharge instructions: Yes Type of respiratory needs?: Oxygen Oxygen frequency: At rest and With Ambulation Oxygen liters per minute during Ambulation: 6 DC home with Oxygen: Yes Home O2 MD Review: I have reviewed the oxygen testing, and the patient qualifies for home oxygen equipment and portability. The patient is mobile in the home and the community. Meaningful Use Info Meaningful Use Meaningful Use Diagnoses (Choose all that apply): CHF CHF JHON/ARB ordered at discharge?: No Reason JHON/ARB not ordered?: Not indicated Documented LVEF (%): 65 Ischemic Stroke Statin Dosing Therapy Reference: STATIN DOSE THERAPY REFERENCE: * Patients > 75 years receive moderate or high dose statin therapy. * Patients 75 years or YOUNGER should receive HIGH intensity statin dose unless contraindicated. You will be required to document reason for non-treatment if statin daily dose does not meet guidelines. HIGH DOSE STATIN THERAPY DAILY Atorvastatin > than or = to 40 mg Rosuvastatin > than or = to 20 mg Amlodipine + Atorvastatin > than or = to 2.5/40 mg Ezetimibe + Simvastatin 10/80 mg Simvastatin 80mg Discharge Plan Admission Admit Date/Time: 03/19/25 22:05 Primary Reason for Your Visit: COPD exacerbation Attending Provider: Cindi Lizarraga Primary Care Provider: Genia Chappell Consulting Providers: Orlando Bolden; Chai Rider Instructions Patient Instructions: Discharge Instructions: COPD Discharge Orders/Prescriptions Prescriptions: New prednisone 20 mg tablet 40 mg PO DAILY Qty: 10 0RF Continued diltiazem HCl [Tiadylt ER] 240 mg capsule,extended release 24 hr 240 mg PO QDAY potassium chloride 20 mEq tablet extended release 20 meq PO DAILY Qty: 90 3RF duloxetine 60 mg capsule,delayed release(DR/EC) 60 mg PO QDAY montelukast 10 MG tablet 10 mg PO QHS albuterol sulfate 90 mcg/actuation HFA aerosol inhaler 2 puff Inhalation Q4H PRN (Reason: Shortness Of Breath) Nurtec ODT 75 mg tablet,disintegrating 75 mg PO DAILY PRN (Reason: migraine) Patient Comments: TAKE 1 (ONE) TABLET BY MOUTH DAILY IF NEEDED FOR MIGRAINE Trelegy Ellipta 200-62.5-25 mcg blister with device 1 inh inhalation DAILY fluticasone propionate [24 Hour Allergy Relief] 50 mcg/actuation spray,suspension 2 spray intranasal DAILY Rx Instructions: administer into each nostril furosemide 40 mg tablet 40 mg PO Q12H cetirizine [24Hour Allergy] 10 mg tablet 10 mg PO DAILY metoprolol tartrate 50 mg tablet 50 mg PO BID Qty: 180 3RF Eliquis 5 mg tablet 5 mg PO BID Qty: 60 11RF Referrals / Follow Up: Christy Perea MD [Med Staff - Brush Painter] - Genia Chappell MD [Primary Care Provider] - 03/25/25 11:30 am (With Nurse Practioner Azael ) Disposition Disposition (needs filled in before D/C Order can be placed): Home Health Service Charges/Coding Visit Charges Inpatient E&M: 19574 Disch Hosp >30min 03/24/25 1426 <Electronically signed by Cindi Lizarraga MD> Cosigner Signature (if applicable): CC: Dr. Genia Chappell MD; Dr. Cindi Lizarraga MD~ Signed [facility] Work Phone: 1(862) 101-991904-29-2025 Discharge summary [facility] Medical Records Department [address] [place] [address] Discharge Summary 03/24/25 1242 MR#: [id number] Acct: [id number] Name: PIPER CLARK Rep #:[id number] : 1955 69 From: Cindi Lizarraga MD PCP: Dr. Genia Chappell MD Status:ADM IN Location: [place] [address] Providers Date of Admission: 03/19/25 Date of Discharge: 03/24/25 Primary Care Physician: Genia Chappell MD Reason For Visit: AE COPD AE CHF AND RESPIRATORY INSUFFICIENCY Diagnosis Discharge Diagnosis (1) COPD exacerbation: Status: Chronic Code(s): J44.1 - Chronic obstructive pulmonary disease with (acute) exacerbation (2) CHF (congestive heart failure): Status: Acute Code(s): I50.9 - Heart failure, unspecified Qualifiers: Heart failure chronicity: acute Heart failure type: unspecified Qualified Code(s): I50.9 - Heart failure, unspecified (3) Atrial fibrillation: Status: Acute Code(s): I48.91 - Unspecified atrial fibrillation Qualifiers: Atrial fibrillation type: unspecified chronic Qualified Code(s): I48.20- Chronic atrial fibrillation, unspecified Plan #Aute exacerbation of COPD * On breathing treatments bronchodilators. On azithromycin. On IV Solu-Medrol. * titrate oxygen to maintain sats >90% * Sputum culture is pending. * #Acute HFpEF: On IV Lasix 20 mg twice daily. Monitor intake and output. Fluid restriction to 1500 cc daily. #A-fib: This is chronic. Heart rate went up with ambulation today. On Eliquis and Cardizem as well as metoprolol DVT prophylaxis: On Eliquis Medications at Discharge Home Medications montelukast 10 mg tablet 10 mg PO QHS allergies 09/07/18 fluticasone fur. 200 mcg-umeclid 62.5 mcg-vilant 25 mcg inhalat.powder (Trelegy Ellipta) 1 inh inhalation DAILY SOB 07/08/23 rimegepant 75 mg disintegrating tablet (Nurtec ODT) 75 mg PO DAILY PRN migraine 07/08/23 albuterol sulfate 90 mcg/actuation aerosol inhaler 2 puff inhalation Q4H PRN Shortness Of Breath 02/13/24 diltiazem HCl 240 mg capsule,24 hr,extended release (Tiadylt ER) 240 mg PO QDAY 02/19/24 potassium chloride 20 mEq tablet,extended release 20 meq PO DAILY #90 tabs 05/07/24 duloxetine 60 mg capsule,delayed release 60 mg PO QDAY 09/30/24 metoprolol tartrate 50 mg tablet 50 mg PO BID #180 tabs 10/09/24 apixaban 5 mg tablet (Eliquis) 5 mg PO BID #60 tabs 02/16/25 cetirizine 10 mg tablet (24Hour Allergy) 10 mg PO DAILY allergy 03/19/25 fluticasone propionate 50 mcg/actuation nasal spray,suspension (24 Hour Allergy Relief) 2 spray intranasal DAILY 03/19/25 furosemide 40 mg tablet 40 mg PO Q12H 03/19/25 prednisone 20 mg tablet 40 mg (2 x 20 mg) PO DAILY #10 tabs 03/24/25 Hospital Course Operations None Procedures None Summary of Care Provided Minutes Spent on Discharge: 45 Hospital Course: Patient is a 69-year-old female with a past medical history as outlined including COPD with chronicrespiratory failure on 4 L of oxygen at home was admitted to the ED on 03/19/2025 with complaint of shortness of breath, wheezing and lower extremity edema. Her symptoms are started about 2 weeks prior to admission and was of gradual onset and gradually worsening. She saw her PCP whoincreased her Lasix 40 mg twice daily and also increased her potassium but her symptoms did not improve so she came into the ED. She admitted to about 30 pound weight gain over 10 months prior to admission and also had increased lethargy and sensation of chest pressure as well as lower extremity edema. Ordered patient proBNP was elevated at thousand 3 chest x-ray showed possible small left pleural effusion and age indeterminate fracture of the left humeral neck with clinical correlation recommended. She was admitted and managed for acute exacerbation of heart failure as well as acute exacerbation of COPD. She started on diuresis with IV Lasix. She had a 2D echo which showed EF of 65% andunable to assess diastolic dysfunction due to arrhythmia. His shortness of breath gradually improved and she was weaned down to her baseline oxygen. She was on 3.5 L of oxygen at home. With exertion she was initially requiring up to10 L of oxygen but was eventually weaned down to her home dose of 6 L of oxygen with exertion. She was discharged on p.o. Lasix 40 mg twice daily as well as p.o. prednisone 40 mg daily for5-day course. She is follow-up with her primarycare doctor in 1 to 2 weeks. She is also to follow-up with cardiology within 1 to 2 weeks. Patient seen and examined prior to discharge. She had no active complaints and felt well. Review ofsystems otherwise negative. Labs and vitals reviewed. Medication reviewed and reconciled. Physical Exam Const alert, oriented x3 and no apparent distress Constitutional Narrative: class III obesity General Appearance: cooperative, comfortable, well kempt and well developed Orientation / Consciousness: awake, oriented to person, oriented to place and oriented to time Exam Limitations: no limitations HEENT normocephalic, head/scalp atraumatic, hearing grossly normal bilaterally, moist oral mucous membranes and oropharynx normal Mouth: oral and palatal mucosa normal Eyes PERRL, EOMs intact bilaterally and conjunctivae normal Neck no lymphadenopathy, supple, no JVD, thyroid normal and no carotid bruits General: trachea midline Lymph Lymphatic: no lymphadenopathy noted and no lymphedema noted Resp normal respiratory effort, no retractions and no use of accessory muscles Resp Narrative: mildly diminished breath sounds bibasally, no wheezes or crackles. On 4L of oxygen by nasal canula Auscultation: wheezes expiratory wheezes; Negative for rales or rhonchi Cardio regular rate, regular rhythm, S1 normal heart sound, S2 normal heart sound, no murmurs, no rub and no gallops Cardio Narrative: Irregularly irregular at ~80 bpm. GI normal to inspection, nondistended, normoactive bowel sounds, soft to palpation,non-tender and non-distended GI Narrative: obese Extremity normal capillary refill, no clubbing, cyanosis or edema and no calf tenderness Extremity Narrative: ~2+ bilateral lower extremity pitting edema. General Extremity: no tenderness to palpation of joints or extremities Skin no rashes or lesions noted General Skin Exam: no breakdown Neuro oriented x3, CN's II-XII intact bilaterally, moves all extremities, no focal motor deficits and no sensory deficits noted Sensorium / Orientation: awake, alert, oriented to person, oriented to place andoriented to time Speech: speech normal Motor Exam: strength 5/5 throughout and general weakness Psych thought process normal, cooperative and affect normal Appearance: appropriate Weight / BMI Weight Weight: 254 lb 10.142 oz Body Mass Index (BMI) 46.5 ABG / Lab / Microbiology Data 03/24/25 06:20 03/24/25 06:20 Laboratory: Laboratory Results - last 24 hr 03/24/25 06:20: WBC 18.1 H, RBC 4.32, Hgb 12.3, Hct 40.5, MCV 93.8, MCH 28.5, MCHC 30.4 L, RDW Std Deviation 48.5 H, RDW Coeff of Beena 14.0, Plt Count 362, MPV 9.7, Immature Gran % (Auto) 0.900, Neut % (Auto) 89.5 H, Lymph % (Auto) 3.6 L, Gilmer % (Auto) 3.8, Eos % (Auto) 2.0, Baso % (Auto) 0.2, Absolute Neuts (auto) 16.2 H, Absolute Lymphs (auto) 0.66 L, Nucleated RBC % 0, Sodium 134, Potassium 5.6H, Chloride 89 L, Carbon Dioxide 40.9 H, Anion Gap 4 L, BUN 32 H, Creatinine0.74, Estim Creat ClearCalc 77.65, Est GFR (MDRD) Non-Af 87, BUN/Creatinine Ratio 43.1 H, Glucose 163 H, Calcium 9.2 Microbiology: Microbiology 03/23/25 13:23 Sputum, Expectorated/Coughed Gram Stain - Final 03/23/25 13:23 Sputum, Expectorated/Coughed Respiratory Culture - Preliminary Appears to be normal respiratory maribel. Further studies to follow. D/C Instructions Discharge Diet: Low fat / Low cholesterol Discharge Activity: Return to Normal Activity Weight Bearing Status: Weight bearing as tolerated Call your doctor if you observe: Fever of 101 or Higher, Shortness of breath, Dizziness, Swelling in the ankles and Chest pain DC O2, CPAP, BIPAP Needs Home O2 Discharge instructions: Yes Type of respiratory needs?: Oxygen Oxygen frequency: At rest and With Ambulation Oxygen liters per minute during Ambulation: 6 DC home with Oxygen: Yes Home O2 MD Review: I have reviewed the oxygen testing, and the patient qualifies for home oxygen equipment and portability. The patient is mobile in the home and the community. Meaningful Use Info Meaningful Use Meaningful Use Diagnoses (Choose all that apply): CHF CHF JHON/ARB ordered at discharge?: No Reason JHON/ARB not ordered?: Not indicated Documented LVEF (%): 65 Ischemic Stroke Statin Dosing Therapy Reference: STATIN DOSE THERAPY REFERENCE: * Patients > 75 years receive moderate or high dose statin therapy. * Patients 75 years or YOUNGER should receive HIGH intensity statin dose unless contraindicated. You will be required to document reason for non-treatment if statin daily dose does not meet guidelines. HIGH DOSE STATIN THERAPY DAILY Atorvastatin > than or = to 40 mg Rosuvastatin > than or = to 20 mg Amlodipine + Atorvastatin > than or = to 2.5/40 mg Ezetimibe + Simvastatin 10/80 mg Simvastatin 80mg Discharge Plan Admission Admit Date/Time: 03/19/25 22:05 Primary Reason for Your Visit: COPD exacerbation Attending Provider: Cindi Lizarraga Primary Care Provider: Genia Chappell Consulting Providers: Orlando Bolden; Chai Rider Instructions Patient Instructions: Discharge Instructions: COPD Discharge Orders/Prescriptions Prescriptions: New prednisone 20 mg tablet 40 mg PO DAILY Qty: 10 0RF Continued diltiazem HCl [Tiadylt ER] 240 mg capsule,extended release 24 hr 240 mg PO QDAY potassium chloride 20 mEq tablet extended release 20 meq PO DAILY Qty: 90 3RF duloxetine 60 mg capsule,delayed release(DR/EC) 60 mg PO QDAY montelukast 10 MG tablet 10 mg PO QHS albuterol sulfate 90 mcg/actuation HFA aerosol inhaler 2 puff Inhalation Q4H PRN (Reason: Shortness Of Breath) Nurtec ODT 75 mg tablet,disintegrating 75 mg PO DAILY PRN (Reason: migraine) Patient Comments: TAKE 1 (ONE) TABLET BY MOUTH DAILY IF NEEDED FOR MIGRAINE Trelegy Ellipta 200-62.5-25 mcg blister with device 1 inh inhalation DAILY fluticasone propionate [24 Hour Allergy Relief] 50 mcg/actuation spray,suspension 2 spray intranasal DAILY Rx Instructions: administer into each nostril furosemide 40 mg tablet 40 mg PO Q12H cetirizine [24Hour Allergy] 10 mg tablet 10 mg PO DAILY metoprolol tartrate 50 mg tablet 50 mg PO BID Qty: 180 3RF Eliquis 5 mg tablet 5 mg PO BID Qty: 60 11RF Referrals / Follow Up: Christy Perea MD [Med Staff - Brush Painter] - Genia Chappell MD [Primary Care Provider] - 03/25/25 11:30 am (With Nurse Practioner Azael ) Disposition Disposition (needs filled in before D/C Order can be placed): Home Health Service Charges/Coding Visit Charges Inpatient E&M: 43389 Disch Hosp >30min 03/24/25 1426 Cosigner Signature (if applicable): CC: Dr. Genia Chappell MD; Dr. Cindi Lizarraga MD~ Signed [facility]04-29-2025 Discharge summary [facility] Medical Records Department [address] [place] [address] Instructions for Home/Discharge Instructions 03/24/25 1241 MR#: [id number] Acct: [id number] Name: PIPER CLARK Rep #:[id number] : 1955 69 From: Cindi Lizarraga MD PCP: Dr. Genia Chappell MD Status:ADM IN Discharge Instructions Diet Discharge Diet: Low fat / Low cholesterol DC O2, CPAP, BIPAP needs Home O2 Discharge instructions: Yes Type of respiratory needs?: Oxygen Oxygen frequency: At rest and With Ambulation Oxygen liters per minute during Ambulation: 6 Dressing / Incision Discharge Activity: Return to Normal Activity Weight Bearing Status: Weight bearing as tolerated Dressing / Incision Call your doctor if you observe: Fever of 101 or Higher, Shortness of breath, Dizziness, Swelling in the ankles and Chest pain Follow Up Care Test Results: Test results from this visit will be discussed in further detail at your follow- up appointment, if applicable. Discharge Plan Admission Admit Date/Time: 03/19/25 22:05 Primary Reason for Your Visit: COPD exacerbation Attending Provider: Cindi Lizarraga Primary Care Provider: Genia Chappell Consulting Providers: Orlando Bolden; Chai Rider Instructions Patient Instructions: Discharge Instructions: COPD Discharge Orders/Prescriptions Prescriptions: New prednisone 20 mg tablet 40 mg PO DAILY Qty: 10 0RF Continued diltiazem HCl [Tiadylt ER] 240 mg capsule,extended release 24 hr 240 mg PO QDAY potassium chloride 20 mEq tablet extended release 20 meq PO DAILY Qty: 90 3RF duloxetine 60 mg capsule,delayed release(DR/EC) 60 mg PO QDAY montelukast 10 MG tablet 10 mg PO QHS albuterol sulfate 90 mcg/actuation HFA aerosol inhaler 2 puff Inhalation Q4H PRN (Reason: Shortness Of Breath) Nurtec ODT 75 mg tablet,disintegrating 75 mg PO DAILY PRN (Reason: migraine) Patient Comments: TAKE 1 (ONE) TABLET BY MOUTH DAILY IF NEEDED FOR MIGRAINE Trelegy Ellipta 200-62.5-25 mcg blister with device 1 inh inhalation DAILY fluticasone propionate [24 Hour Allergy Relief] 50 mcg/actuation spray,suspension 2 spray intranasal DAILY Rx Instructions: administer into each nostril furosemide 40 mg tablet 40 mg PO Q12H cetirizine [24Hour Allergy] 10 mg tablet 10 mg PO DAILY metoprolol tartrate 50 mg tablet 50 mg PO BID Qty: 180 3RF Eliquis 5 mg tablet 5 mg PO BID Qty: 60 11RF Referrals / Follow Up: Christy Perea MD [Med Staff - Brush Painter] - Genia Chappell MD [Primary Care Provider] - 03/25/25 11:30 am (With Nurse Practioner Azael ) Disposition Disposition (needs filled in before D/C Order can be placed): Home Health Service 03/24/25 1242Nanana Lizarraga MD CC: Dr. Genia Chappell MD; Dr. Orlando Bolden DO; Dr. Chai Rider DO ~ Signed [facility]04-29-2025 [facility] [place] Progress note Author Cindi Lizarraga [facility] Note Date/Time March 23, 2025 4:4 4pm [facility] Medical Records Department [address] [place] [address] Progress Note 03/23/25 1351 MR#: [id number] Acct: [id number] Name: PIPER CLARK Rep #:[id number] : 1955 69 From: Cindi Lizarraga MD PCP: Dr. Genia Chappell MD Status:ADM IN Location: [place] [address] Subjective Subjective Patient seen and examined. She was trying to ambulate with therapy. She still complains of shortness of breath with exertion. She denied any chest pain, wheezing, palpitations, nausea, vomiting or any other symptoms. REview of systems is otherwise negative. Objective Data Objective Data Vital Signs: Vital Signs Temp Pulse Resp BP Pulse Ox O2 Del Method O2 Flow Rate 97.9 F 68 18 138/76 H 95 Nasal Cannula 4 03/23/25 09:20 03/23/25 12:09 03/23/25 12:09 03/23/25 09:20 03/23/25 09:20 03/23/25 10:00 03/23/25 10:00 Oxygen Flow Rate (L/min) 4 Oxygen Delivery Method Nasal Cannula Weight: 254 lb 3.088 oz Body Mass Index (BMI) 46.5 Intake & Output: Intake and Output for Last 24 Hours 03/21/25 03/22/25 03/23/25 23:59 23:59 23:59 Intake Total 1335 / 1455 840 / 840 Output Total 700 / 1150 1500 / 2250 1150 / 1150 Balance 635 / 305 -660 / -1410 -1150 / -1150 Lab / Micro Data 03/20/25 05:54 03/23/25 05:44 Labs: Laboratory Results - last 24 hr 03/23/25 05:44: Sodium 138, Potassium 4.9, Chloride 91 L, Carbon Dioxide 42.1 H,Anion Gap 5, BUN 25 H, Creatinine 0.58 L, Estim Creat Clear Calc 77.57, Est GFR (MDRD) Non-Af 97, BUN/Creatinine Ratio 43.4 H, Glucose 165 H, Calcium 9.3 Physical Exam Const alert, oriented x3 and no apparent distress Constitutional Narrative: class III obesity HEENT normocephalic, head/scalp atraumatic, moist oral mucous membranes and oropharynxnormal Eyes PERRL and EOMs intact bilaterally Neck no lymphadenopathy, supple and no JVD Lymph Lymphatic: no lymphadenopathy noted and no lymphedema noted Resp Resp Narrative: mildly diminished breath sounds bibasally, no wheezes or crackles. On 4L of oxygen by nasal canula Cardio regular rate, regular rhythm, S1 normal heart sound, S2 normal heart sound and no murmurs GI normal to inspection, nondistended, normoactive bowel sounds, soft to palpation,non-tender and non-distended GI Narrative: obese Extremity normal capillary refill, no clubbing, cyanosis or edema and no calf tenderness General Extremity: no tenderness to palpation of joints or extremities Skin General Skin Exam: no breakdown Neuro CN's II-XII intact bilaterally, no focal motor deficits and no sensory deficits noted Motor Exam: strength 5/5 throughout and general weakness Psych thought process normal, cooperative and affect normal Appearance: appropriate Assessment & Plan Assessment/Plan (1) COPD exacerbation: (2) CHF (congestive heart failure): QUALIFIERS: Heart failure type: unspecified Heart failure chronicity: acute Qualified Code(s): I50.9 - Heart failure, unspecified (3) Atrial fibrillation: QUALIFIERS: Atrial fibrillation type: unspecified chronic Qualified Code(s): I48.20 - Chronic atrial fibrillation, unspecified PLAN: Plan #Aute exacerbation of COPD * On breathing treatments bronchodilators. On azithromycin. On IV Solu-Medrol. * titrate oxygen to maintain sats >90% * Sputum culture is pending. * #Acute HFpEF: On IV Lasix 20 mg twice daily. Monitor intake and output. Fluid restriction to 1500 cc daily. #A-fib: This is chronic. Heart rate went up with ambulation today. On Eliquis and Cardizem as well as metoprolol DVT prophylaxis: On Eliquis Charges/Coding Visit Charges Inpatient E&M: 71915 Subs Hosp L2 03/23/25 7955 <Electronically signed by Cindi Lizarraga MD> Cindi Lizarraga MD Cosigner Signature (if applicable): CC: ~ Signed [facility] Work Phone: 1(791) 426-904104-28-2025 Progress note [facility] Medical Records Department [address] [place] [address] Progress Note 03/23/25 1351 MR#: [id number] Acct: [id number] Name: PIPER CLARK Rep #:[id number] : 1955 69 From: Cindi Lizarraga MD PCP: Dr. Genia Chappell MD Status:ADM IN Location: [place] [address] Subjective Subjective Patient seen and examined. She was trying to ambulate with therapy. She still complains of shortness of breath with exertion. She denied any chest pain, wheezing, palpitations, nausea, vomiting or any other symptoms. REview of systems is otherwise negative. Objective Data Objective Data Vital Signs: Vital Signs Temp Pulse Resp BP Pulse Ox O2 Del Method O2 Flow Rate 97.9 F 68 18 138/76 H 95 Nasal Cannula 4 03/23/25 09:20 03/23/25 12:09 03/23/25 12:09 03/23/25 09:20 03/23/25 09:20 03/23/25 10:00 03/23/25 10:00 Oxygen Flow Rate (L/min) 4 Oxygen Delivery Method Nasal Cannula Weight: 254 lb 3.088 oz Body Mass Index (BMI) 46.5 Intake & Output: Intake and Output for Last 24 Hours 03/21/25 03/22/25 03/23/25 23:59 23:59 23:59 Intake Total 1335 / 1455 840 / 840 Output Total 700 / 1150 1500 / 2250 1150 / 1150 Balance 635 / 305 -660 / -1410 -1150 / -1150 Lab / Micro Data 03/20/25 05:54 03/23/25 05:44 Labs: Laboratory Results - last 24 hr 03/23/25 05:44: Sodium 138, Potassium 4.9, Chloride 91 L, Carbon Dioxide 42.1 H,Anion Gap 5, BUN 25H, Creatinine 0.58 L, Estim Creat Clear Calc 77.57, Est GFR (MDRD) Non-Af 97, BUN/Creatinine Ratio 43.4 H, Glucose 165 H, Calcium 9.3 Physical Exam Const alert, oriented x3 and no apparent distress Constitutional Narrative: class III obesity HEENT normocephalic, head/scalp atraumatic, moist oral mucous membranes and oropharynxnormal Eyes PERRL and EOMs intact bilaterally Neck no lymphadenopathy, supple and no JVD Lymph Lymphatic: no lymphadenopathy noted and no lymphedema noted Resp Resp Narrative: mildly diminished breath sounds bibasally, no wheezes or crackles. On 4L of oxygen by nasal canula Cardio regular rate, regular rhythm, S1 normal heart sound, S2 normal heart sound and no murmurs GI normal to inspection, nondistended, normoactive bowel sounds, soft to palpation,non-tender and non-distended GI Narrative: obese Extremity normal capillary refill, no clubbing, cyanosis or edema and no calf tenderness General Extremity: no tenderness to palpation of joints or extremities Skin General Skin Exam: no breakdown Neuro CN's II-XII intact bilaterally, no focal motor deficits and no sensory deficits noted Motor Exam: strength 5/5 throughout and general weakness Psych thought process normal, cooperative and affect normal Appearance: appropriate Assessment & Plan Assessment/Plan (1) COPD exacerbation: (2) CHF (congestive heart failure): QUALIFIERS: Heart failure type: unspecified Heart failure chronicity: acute Qualified Code(s): I50.9 - Heart failure, unspecified (3) Atrial fibrillation: QUALIFIERS: Atrial fibrillation type: unspecified chronic Qualified Code(s): I48.20 - Chronic atrial fibrillation, unspecified PLAN: Plan #Aute exacerbation of COPD * On breathing treatments bronchodilators. On azithromycin. On IV Solu-Medrol. * titrate oxygen to maintain sats >90% * Sputum culture is pending. * #Acute HFpEF: On IV Lasix 20 mg twice daily. Monitor intake and output. Fluid restriction to 1500 cc daily. #A-fib: This is chronic. Heart rate went up with ambulation today. On Eliquis and Cardizem as well as metoprolol DVT prophylaxis: On Eliquis Charges/Coding Visit Charges Inpatient E&M: 32651 Subs Hosp L2 03/23/25 1644 Cindi Lizarraga MD Cosigner Signature (if applicable): CC: ~ Signed [facility]04-27-2025 Progress note Author Chai Rider [facility] Note Date/Time March 22, 2025 5:4 3pm [facility] Medical Records Department [address] [place] [address] Progress Note - Hospitalist 03/22/25 1740 MR#: [id number] Acct: [id number] Name: PIPER CLARK Rep #:[id number] : 1955 69 From: Chai Rider DO PCP: Dr. Genia Chappell MD Status:ADM IN Location: [place] [address] Reason for Visit Reason for Visit: Diagnoses Chronic atrial fibrillation, unspecified (03/19/25) Chronic obstructive pulmonary disease with (acute) exacerbation (03/19/25) Subjective Subjective Patient was seen and examined today, she requires 6 L on ambulation and 4 L at rest. Her baseline oxygen requirement at home is 4 L-according to nursing, her home concentrator only goes up to 5 L Objective Data Objective Data Vital Signs: Vital Signs Temp Pulse Resp BP Pulse Ox O2 Del Method O2 Flow Rate 97.6 F L 67 17 142/69 H 99 Nasal Cannula 4 03/22/25 09:00 03/22/25 09:00 03/22/25 09:00 03/22/25 09:00 03/22/25 09:00 03/22/25 14:00 03/22/25 15:04 Oxygen Flow Rate (L/min) 4 Oxygen Delivery Method Nasal Cannula Weight: 116.2 kg Body Mass Index (BMI) 46.8 Intake & Output: Intake and Output for Last 24 Hours 03/20/25 03/21/25 03/22/25 23:59 23:59 23:59 Intake Total 1060 / 1300 1335 / 1455 840 / 840 Output Total 850 / 850 700 / 1150 1500 / 1500 Balance 210 / 450 635 / 305 -660 / -660 Lab / Micro Data 03/20/25 05:54 03/20/25 05:54 Physical Exam Narrative alert, oriented x3, no apparent distress and healthy appearing Constitutional Narrative: Patient has class III obesity General Appearance: cooperative, well kempt and well developed Orientation / Consciousness: awake, oriented to person, oriented to place and oriented to time HEENT normocephalic, head/scalp atraumatic and moist oral mucous membranes Eyes PERRL, EOMs intact bilaterally and conjunctivae normal Neck supple, no JVD, thyroid normal and no carotid bruits General: trachea midline Resp normal respiratory effort, no retractions and no use of accessory muscles Resp Narrative: Patient has bilateral expiratory wheezes which are high-pitched bilaterally Auscultation: wheezes expiratory wheezes; Negative for rales or rhonchi Cardio irregular rate, irregular rhythm, S1 normal heart sound, S2 normal heart sound, no murmurs, no rub and no gallops GI normal to inspection, nondistended, normoactive bowel sounds, soft to palpation,non-tender and non-distended Extremity no clubbing, cyanosis or edema Skin no rashes or lesions noted General Skin Exam: no breakdown Neuro oriented x3, CN's II-XII intact bilaterally, moves all extremities, no focal motor deficits and no sensory deficits noted Sensorium / Orientation: awake and alert Speech: speech normal Psych affect normal Assessment & Plan Assessment/Plan (1) COPD exacerbation: PLAN: Plan 1. Exacerbation of COPD-patient will remain on IV corticosteroids, aerosol treatments, patient is on Zithromax #2 chronic hypoxic respiratory failure-oxygen will be weaned if possible, patient is currently on 4 L at rest, 6 L on exertion, patient may need a different oxygen concentrator set up at home #3 acute congestive heart failure with preserved ejection fraction-patient will remain on IV Lasix at this time, she is currently on 20 mg twice daily #4 Chronic atrial fibrillation-patient is on chronic anticoagulation and rate control medication Total clinical time spent by myself addressing patient's medical issues, reviewing all of her data, and collaborating with patient's care team: 35 minutes Charges/Coding Visit Charges Inpatient E&M: 06355 Subs Hosp L2 03/22/251742 <Electronically signed by Chai Rider DO> Cosigner Signature (if applicable): CC: ~ Signed [facility] Work Phone: 1(740) 912-944604-27-2025 Progress note [facility] Medical Records Department [address] [place] [address] Progress Note - Hospitalist 03/22/25 174 MR#: [id number] Acct: [id number] Name: PIPER CLARK Rep #:[id number] : 1955 69 From: Chai Rider DO PCP: Dr. Genia Chappell MD Status:ADM IN Location: [place] [address] Reason for Visit Reason for Visit: Diagnoses Chronic atrial fibrillation, unspecified (03/19/25) Chronic obstructive pulmonary disease with (acute) exacerbation (03/19/25) Subjective Subjective Patient was seen and examined today, she requires 6 L on ambulation and 4 L at rest. Her baseline oxygen requirement at home is 4 L-according to nursing, her home concentrator only goes up to 5 L Objective Data Objective Data Vital Signs: Vital Signs Temp Pulse Resp BP Pulse Ox O2 Del Method O2 Flow Rate 97.6 F L 67 17 142/69 H 99 Nasal Cannula 4 03/22/25 09:00 03/22/25 09:00 03/22/25 09:00 03/22/25 09:00 03/22/25 09:00 03/22/25 14:00 03/22/25 15:04 Oxygen Flow Rate (L/min) 4 Oxygen Delivery Method Nasal Cannula Weight: 116.2 kg Body Mass Index (BMI) 46.8 Intake & Output: Intake and Output for Last 24 Hours 03/20/25 03/21/25 03/22/25 23:59 23:59 23:59 Intake Total 1060 / 1300 1335 / 1455 840 / 840 Output Total 850 / 850 700 / 1150 1500 / 1500 Balance 210 / 450 635 / 305 -660 / -660 Lab / Micro Data 03/20/25 05:54 03/20/25 05:54 Physical Exam Narrative alert, oriented x3, no apparent distress and healthy appearing Constitutional Narrative: Patient has class III obesity General Appearance: cooperative, well kempt and well developed Orientation / Consciousness: awake, oriented to person, oriented to place and oriented to time HEENT normocephalic, head/scalp atraumatic and moist oral mucous membranes Eyes PERRL, EOMs intact bilaterally and conjunctivae normal Neck supple, no JVD, thyroid normal and no carotid bruits General: trachea midline Resp normal respiratory effort, no retractions and no use of accessory muscles Resp Narrative: Patient has bilateral expiratory wheezes which are high-pitched bilaterally Auscultation: wheezes expiratory wheezes; Negative for rales or rhonchi Cardio irregular rate, irregular rhythm, S1 normal heart sound, S2 normal heart sound, no murmurs, no rub and no gallops GI normal to inspection, nondistended, normoactive bowel sounds, soft to palpation,non-tender and non-distended Extremity no clubbing, cyanosis or edema Skin no rashes or lesions noted General Skin Exam: no breakdown Neuro oriented x3, CN's II-XII intact bilaterally, moves all extremities, no focal motor deficits and no sensory deficits noted Sensorium / Orientation: awake and alert Speech: speech normal Psych affect normal Assessment & Plan Assessment/Plan (1) COPD exacerbation: PLAN: Plan 1. Exacerbation of COPD-patient will remain on IV corticosteroids, aerosol treatments, patient is on Zithromax #2 chronic hypoxic respiratory failure-oxygen will be weaned if possible, patient is currently on 4L at rest, 6 L on exertion, patient may need a different oxygen concentrator set up at home #3 acute congestive heart failure with preserved ejection fraction-patient will remain on IV Lasix at this time, she is currently on 20 mg twice daily #4 Chronic atrial fibrillation-patient is on chronic anticoagulation and rate control medication Total clinical time spent by myself addressing patient's medical issues, reviewing all of her data,and collaborating with patient's care team: 35 minutes Charges/Coding Visit Charges Inpatient E&M: 48434 Subs Hosp L2 03/22/25 8379 Cosigner Signature (if applicable): CC: ~ Signed [facility]04-26-2025 Progress note Author Chai [facility] Note Date/Time March 21, 2025 12: 03pm [facility] Medical Records Department [address] [place] [address] Progress Note - Hospitalist 03/21/25 1200 MR#: [id number] Acct: [id number] Name: PIPER CLARK Rep #:[id number] : 1955 69 From: Chai Rider DO PCP: Dr. Genia Chappell MD Status:ADM IN Location: [place] [address] Reason for Visit Reason for Visit: Diagnoses Chronic atrial fibrillation, unspecified (03/19/25) Chronic obstructive pulmonary disease with (acute) exacerbation (03/19/25) Subjective Subjective Patient was seen and examined today, she is requiring 8 L of oxygen on ambulation, she is on 4 L of oxygen at rest. Objective Data Objective Data Vital Signs: Vital Signs Temp Pulse Resp BP Pulse Ox O2 Del Method O2 Flow Rate 98.3 F 73 18 125/64 H 98 Nasal Cannula 4 03/21/25 08:37 04/26/25 08:46 03/21/25 08:37 03/21/25 08:37 03/21/25 08:37 03/21/25 09:03 03/21/25 09:03 Oxygen Flow Rate (L/min) 4 Oxygen Delivery Method Nasal Cannula Weight: 114.6 kg Body Mass Index (BMI) 46.2 Intake & Output: Intake and Output for Last 24 Hours 03/19/25 03/20/25 03/21/25 23:59 23:59 23:59 Intake Total 1060 / 1300 240 / 240 Output Total 850 / 850 200 / 200 Balance 210 / 450 40 / 40 Lab / Micro Data 03/20/25 05:54 03/20/25 05:54 Labs: Laboratory Results - last 24 hr 03/21/25 05:11: Phosphorus 2.8 Physical Exam Narrative alert, oriented x3, no apparent distress and healthy appearing Constitutional Narrative: Patient has class III obesity General Appearance: cooperative, well kempt and well developed Orientation / Consciousness: awake, oriented to person, oriented to place and oriented to time HEENT normocephalic, head/scalp atraumatic and moist oral mucous membranes Eyes PERRL, EOMs intact bilaterally and conjunctivae normal Neck supple, no JVD, thyroid normal and no carotid bruits General: trachea midline Resp normal respiratory effort, no retractions and no use of accessory muscles Resp Narrative: Patient has bilateral expiratory wheezes which are high-pitched bilaterally Auscultation: wheezes expiratory wheezes; Negative for rales or rhonchi Cardio irregular rate, irregular rhythm, S1 normal heart sound, S2 normal heart sound, no murmurs, no rub and no gallops GI normal to inspection, nondistended, normoactive bowel sounds, soft to palpation,non-tender and non-distended Extremity no clubbing, cyanosis or edema Skin no rashes or lesions noted General Skin Exam: no breakdown Neuro oriented x3, CN's II-XII intact bilaterally, moves all extremities, no focal motor deficits and no sensory deficits noted Sensorium / Orientation: awake and alert Speech: speech normal Psych affect normal Assessment & Plan Assessment/Plan (1) COPD exacerbation: PLAN: Plan 1. Exacerbation of COPD-patient will remain on IV corticosteroids, aerosol treatments, patient is on Zithromax #2 chronic hypoxic respiratory failure-oxygen will be weaned if possible, patient is currently on 4 L at rest, 8 L on exertion #3 acute congestive heart failure with preserved ejection fraction-patient will remain on IV Lasix at this time, I will change her Lasix to 20 mg IV twice daily. #4 Chronic atrial fibrillation-patient is on chronic anticoagulation and rate control medication Total clinical time spent by myself addressing patient's medical issues, reviewing all of her data, and collaborating with patient's care team: 35 minutes Charges/Coding Visit Charges Inpatient E&M: 32324 Subs Hosp L2 03/21/25 1203 <Electronically signed by Chai Rider DO> Cosigner Signature (if applicable): CC: ~ Signed [facility] Work Phone: 1(345) 442-754004-26-2025 Progress note [facility] Medical Records Department [address] [place] [address] Progress Note - Hospitalist 03/21/25 1200 MR#: [id number] Acct: [id number] Name: PIPER CLARK Rep #:[id number] 8 : 1955 69 From: Chai Rider DO PCP: Dr. Genia Chappell MD Status:ADM IN Location: [place] [address] Reason for Visit Reason for Visit: Diagnoses Chronic atrial fibrillation, unspecified (03/19/25) Chronic obstructive pulmonary disease with (acute) exacerbation (03/19/25) Subjective Subjective Patient was seen and examined today, she is requiring 8 L of oxygen on ambulation, she is on 4 L ofoxygen at rest. Objective Data Objective Data Vital Signs: Vital Signs Temp Pulse Resp BP Pulse Ox O2 Del Method O2 Flow Rate 98.3 F 73 18 125/64 H 98 Nasal Cannula 4 03/21/25 08:37 03/21/25 08:46 03/21/25 08:37 03/21/25 08:37 03/21/25 08:37 03/21/25 09:03 03/21/25 09:03 Oxygen Flow Rate (L/min) 4 Oxygen Delivery Method Nasal Cannula Weight: 114.6 kg Body Mass Index (BMI) 46.2 Intake & Output: Intake and Output for Last 24 Hours 03/19/25 03/20/25 03/21/25 23:59 23:59 23:59 Intake Total 1060 / 1300 240 / 240 Output Total 850 / 850 200 / 200 Balance 210 / 450 40 / 40 Lab / Micro Data 03/20/25 05:54 03/20/25 05:54 Labs: Laboratory Results - last 24 hr 03/21/25 05:11: Phosphorus 2.8 Physical Exam Narrative alert, oriented x3, no apparent distress and healthy appearing Constitutional Narrative: Patient has class III obesity General Appearance: cooperative, well kempt and well developed Orientation / Consciousness: awake, oriented to person, oriented to place and oriented to time HEENT normocephalic, head/scalp atraumatic and moist oral mucous membranes Eyes PERRL, EOMs intact bilaterally and conjunctivae normal Neck supple, no JVD, thyroid normal and no carotid bruits General: trachea midline Resp normal respiratory effort, no retractions and no use of accessory muscles Resp Narrative: Patient has bilateral expiratory wheezes which are high-pitched bilaterally Auscultation: wheezes expiratory wheezes; Negative for rales or rhonchi Cardio irregular rate, irregular rhythm, S1 normal heart sound, S2 normal heart sound, no murmurs, no rub and no gallops GI normal to inspection, nondistended, normoactive bowel sounds, soft to palpation,non-tender and non-distended Extremity no clubbing, cyanosis or edema Skin no rashes or lesions noted General Skin Exam: no breakdown Neuro oriented x3, CN's II-XII intact bilaterally, moves all extremities, no focal motor deficits and no sensory deficits noted Sensorium / Orientation: awake and alert Speech: speech normal Psych affect normal Assessment & Plan Assessment/Plan (1) COPD exacerbation: PLAN: Plan 1. Exacerbation of COPD-patient will remain on IV corticosteroids, aerosol treatments, patient is on Zithromax #2 chronic hypoxic respiratory failure-oxygen will be weaned if possible, patient is currently on 4L at rest, 8 L on exertion #3 acute congestive heart failure with preserved ejection fraction-patient will remain on IV Lasix at this time, I will change her Lasix to 20 mg IV twice daily. #4 Chronic atrial fibrillation-patient is on chronic anticoagulation and rate control medication Total clinical time spent by myself addressing patient's medical issues, reviewing all of her data,and collaborating with patient's care team: 35 minutes Charges/Coding Visit Charges Inpatient E&M: 13926 Subs Hosp L2 03/21/25 1203 Cosigner Signature (if applicable): CC: ~ Signed [facility]04-25-2025 Progress note Author Chai Rider [facility] Note Date/Time March 20, 2025 7:3 7pm [facility] Medical Records Department [address] [place] [address] Progress Note - Hospitalist 03/20/251926 MR#: [id number] Acct: [id number] Name: PIPER CLARK Rep #:[id number] 1 : 1955 69 From: Chai Rider DO PCP: Dr. Genia Chappell MD Status:ADM IN Location: [place] [address] Reason for Visit Reason for Visit: Diagnoses Chronic atrial fibrillation, unspecified (03/19/25) Subjective Subjective Patient was seen and examined today, echocardiogram today revealed a normal ejection fraction with moderate pulmonary hypertension. Patient is currently on4 L of oxygen at rest which is her baseline oxygen setting at home. Objective Data Objective Data Vital Signs: Vital Signs Temp Pulse Resp BP Pulse Ox O2 Del Method O2 Flow Rate 98.3 F 64 22 H 166/84 H 93 Nasal Cannula 4 03/20/25 15:25 03/20/25 15:25 03/20/25 15:25 03/20/25 15:25 03/20/25 15:25 03/20/25 16:44 03/20/25 16:44 Oxygen Flow Rate (L/min) 4 Oxygen Delivery Method Nasal Cannula Weight: 114.3 kg Body Mass Index (BMI) 46.0 Intake & Output: Intake and Output for Last 24 Hours 03/18/25 03/19/25 03/20/25 23:59 23:59 23:59 Intake Total 1060 / 1060 Output Total 850 / 850 Balance 210 / 210 Lab / Micro Data 03/20/25 05:54 03/20/25 05:54 Labs: Laboratory Results - last 24 hr 03/19/25 20:03: WBC 13.7 H, RBC 4.09 L, Hgb 11.7 L, Hct 39.1, MCV 95.6, MCH 28.6, MCHC 29.9 L, RDW Std Deviation 47.8 H, RDW Coeff of Beena 13.5, Plt Count 373, MPV 10.0, Immature Gran % (Auto) 0.400, Neut % (Auto) 73.9 H, Lymph % (Auto) 13.9 L, Gilmer % (Auto) 9.2, Eos % (Auto) 2.2, Baso % (Auto) 0.4, Absolute Neuts (auto) 10.2 H, Absolute Lymphs (auto) 1.91, Nucleated RBC % 0, Sodium 133,Potassium 4.3, Chloride 86 L, Carbon Dioxide 38.3 H, Anion Gap 9, BUN 13, Creatinine 0.80, Estim Creat Clear Calc 77.85, Est GFR (MDRD) Non-Af 79, BUN/Creatinine Ratio 16.7, Glucose 232 H, Calcium 9.2, Troponin T High Sens 19 H, NT pro BNP II 1003 H 03/19/25 22:13: Magnesium 1.7, Vitamin B12 473, TSH 0.905 03/19/25 23:19: Hemoglobin A1c 5.5, Troponin T Hi Sens 2 Hr 10, Serum Folate 8.88 03/20/25 05:54: WBC 11.0, RBC 3.78 L, Hgb 10.9 L, Hct 36.2 L, MCV 95.8, MCH 28.8, MCHC 30.1 L, RDW Std Deviation 48.0 H, RDW Coeff of Beena 13.5, Plt Count 315, MPV 9.8, Immature Gran % (Auto) 0.500, Neut % (Auto) 93.9 H, Lymph % (Auto)4.3 L, Gilmer % (Auto) 1.2, Eos % (Auto) 0.0, Baso % (Auto) 0.1, Absolute Neuts (auto) 10.3 H, Absolute Lymphs (auto) 0.47 L, Nucleated RBC % 0, Sodium 139, Potassium 4.6, Chloride 89 L, Carbon Dioxide 41.8 H, Anion Gap 8, BUN 15, Creatinine 0.59 L, Estim Creat Clear Calc 77.16, Est GFR (MDRD) Non-Af 96, BUN/Creatinine Ratio 24.8 H, Glucose 163 H, Calcium 9.1, Phosphorus 2.9 03/20/25 05:54: Phosphorus Cancelled, Total Bilirubin 0.28, AST 13, ALT 12, Alkaline Phosphatase 65, NT pro BNP II 1547 H, Total Protein 6.8, Albumin 3.5, Globulin 3.3, Albumin/Globulin Ratio 1.0, Triglycerides 51, Cholesterol 150, LDLCholesterol, Calc 82, VLDL Cholesterol 10, HDL Cholesterol 58, Cholesterol/HDL Ratio 2.58 Radiography Diagnostic Testing: Radiology Impression Chest X-Ray 03/19/25 20:15 IMPRESSION: 1. Possible small left pleural effusion. 2. Age-indeterminate fracture of the left humeral neck. Please correlate. Reading Location: [facility] Echocardiogram 03/19/25 22:40 Interpretation Summary The study was technically difficult. The LV systolic function is normal. EF is 65 %. There is Mild focal posterior mitral annular calcification. Right ventricular systolic pressure estimated to be 50 mmHg. Small (<1.0 cm) pericardial effusion. Ordering Physician: Orlando Bolden Referring Physician: GENIA CHAPPELL Performed By: Katelyn Barakat RDCS Physical Exam Const alert, oriented x3, no apparent distress and healthy appearing Constitutional Narrative: Patient has class III obesity General Appearance: cooperative, well kempt and well developed Orientation / Consciousness: awake, oriented to person, oriented to place and oriented to time HEENT normocephalic, head/scalp atraumatic and moist oral mucous membranes Eyes PERRL, EOMs intact bilaterally and conjunctivae normal Neck supple, no JVD, thyroid normal and no carotid bruits General: trachea midline Resp normal respiratory effort, no retractions and no use of accessory muscles Resp Narrative: Patient has bilateral expiratory wheezes which are high-pitched bilaterally Auscultation: wheezes expiratory wheezes; Negative for rales or rhonchi Cardio regular rate, regular rhythm, S1 normal heart sound, S2 normal heart sound, no murmurs, no rub and no gallops GI normal to inspection, nondistended, normoactive bowel sounds, soft to palpation,non-tender and non-distended Extremity no clubbing, cyanosis or edema Skin no rashes or lesions noted General Skin Exam: no breakdown Neuro oriented x3, CN's II-XII intact bilaterally, moves all extremities, no focal motor deficits and no sensory deficits noted Sensorium / Orientation: awake and alert Speech: speech normal Psych affect normal Assessment & Plan Assessment/Plan (1) COPD exacerbation: PLAN: Plan 1. Exacerbation of COPD-patient will remain on IV corticosteroids, aerosol treatments, I will add oral Zithromax to her regimen #2 chronic hypoxic respiratory failure-oxygen will be weaned if possible, patient is currently on 4 L at rest #3 acute congestive heart failure with preserved ejection fraction-patient will remain on IV Lasix at this time, I will change her Lasix to 20 mg IV twice daily. #4 Chronic atrial fibrillation-patient is on chronic anticoagulation and rate control medication Total clinical time spent by myself addressing patient's medical issues, reviewing all of her data, and collaborating with patient's care team: 35 minutes Charges/Coding Visit Charges Inpatient E&M: 30204 Subs Hosp L2 03/20/251936 <Electronically signed by Chai Rider DO> Cosigner Signature (if applicable): CC: ~ Signed [facility] Work Phone: 1(842) 956-381504-25-2025 Progress note [facility] Medical Records Department [address] [place] [address] Progress Note - Hospitalist 03/20/251926 MR#: [id number] Acct: [id number] Name: PIPER CLARK Rep #:[id number] 1 : 1955 69 From: Chai Rider DO PCP: Dr. Genia Chappell MD Status:ADM IN Location: [place] [address] Reason for Visit Reason for Visit: Diagnoses Chronic atrial fibrillation, unspecified (03/19/25) Subjective Subjective Patient was seen and examined today, echocardiogram today revealed a normal ejection fraction with moderate pulmonary hypertension. Patient is currently on4 L of oxygen at rest which is her baseline oxygen setting at home. Objective Data Objective Data Vital Signs: Vital Signs Temp Pulse Resp BP Pulse Ox O2 Del Method O2 Flow Rate 98.3 F 64 22 H 166/84 H 93 Nasal Cannula 4 03/20/25 15:25 03/20/25 15:25 03/20/25 15:25 03/20/25 15:25 03/20/25 15:25 03/20/25 16:44 03/20/25 16:44 Oxygen Flow Rate (L/min) 4 Oxygen Delivery Method Nasal Cannula Weight: 114.3 kg Body Mass Index (BMI) 46.0 Intake & Output: Intake and Output for Last 24 Hours 03/18/25 03/19/25 03/20/25 23:59 23:59 23:59 Intake Total 1060 / 1060 Output Total 850 / 850 Balance 210 / 210 Lab / Micro Data 03/20/25 05:54 03/20/25 05:54 Labs: Laboratory Results - last 24 hr 03/19/25 20:03: WBC 13.7 H, RBC 4.09 L, Hgb 11.7 L, Hct 39.1, MCV 95.6, MCH 28.6, MCHC 29.9 L, RDW Std Deviation 47.8 H, RDW Coeff of Beena 13.5, Plt Count 373, MPV 10.0, Immature Gran % (Auto) 0.400, Neut % (Auto) 73.9 H, Lymph % (Auto) 13.9 L, Gilmer % (Auto) 9.2, Eos % (Auto) 2.2, Baso % (Auto) 0.4,Absolute Neuts (auto) 10.2 H, Absolute Lymphs (auto) 1.91, Nucleated RBC % 0, Sodium 133,Potassium 4.3, Chloride 86 L, Carbon Dioxide 38.3 H, Anion Gap 9, BUN 13, Creatinine 0.80, Estim Creat Clear Calc 77.85, Est GFR (MDRD) Non-Af 79, BUN/Creatinine Ratio 16.7, Glucose 232 H, Calcium 9.2, TroponinT High Sens 19 H, NT pro BNP II 1003 H 03/19/25 22:13: Magnesium 1.7, Vitamin B12 473, TSH 0.905 03/19/25 23:19: Hemoglobin A1c 5.5, Troponin T Hi Sens 2 Hr 10, Serum Folate 8.88 03/20/25 05:54: WBC 11.0, RBC 3.78 L, Hgb 10.9 L, Hct 36.2 L, MCV 95.8, MCH 28.8, MCHC 30.1 L, RDW Std Deviation 48.0 H, RDW Coeff of Beena 13.5, Plt Count 315, MPV 9.8, Immature Gran % (Auto) 0.500, Neut % (Auto) 93.9 H, Lymph % (Auto)4.3 L, Gilmer % (Auto) 1.2, Eos % (Auto) 0.0, Baso % (Auto) 0.1, Absolute Neuts (auto) 10.3 H, Absolute Lymphs (auto) 0.47 L, Nucleated RBC % 0, Sodium 139, Potassium 4.6, Chloride 89 L, Carbon Dioxide 41.8 H, Anion Gap 8, BUN 15, Creatinine 0.59 L, Estim Creat ClearCalc 77.16, Est GFR (MDRD) Non-Af 96, BUN/Creatinine Ratio 24.8 H, Glucose 163 H, Calcium 9.1, Phosphorus 2.9 03/20/25 05:54: Phosphorus Cancelled, Total Bilirubin 0.28, AST 13, ALT 12, Alkaline Phosphatase 65, NT pro BNP II 1547 H, Total Protein 6.8, Albumin 3.5, Globulin 3.3, Albumin/Globulin Ratio 1.0, Triglycerides 51, Cholesterol 150, LDLCholesterol, Calc 82, VLDL Cholesterol 10, HDL Cholesterol 58, Ch olesterol/HDL Ratio 2.58 Radiography Diagnostic Testing: Radiology Impression Chest X-Ray 03/19/25 20:15 IMPRESSION: 1. Possible small left pleural effusion. 2. Age-indeterminate fracture of the left humeral neck. Please correlate. Reading Location: [facility] Echocardiogram 03/19/25 22:40 Interpretation Summary The study was technically difficult. The LV systolic function is normal. EF is 65 %. There is Mild focal posterior mitral annular calcification. Right ventricular systolic pressure estimated to be 50 mmHg. Small (<1.0 cm) pericardial effusion. Ordering Physician: Orlando Bolden Referring Physician: GENIA CHAPPELL Performed By: Katelyn Barakat RDCS Physical Exam Const alert, oriented x3, no apparent distress and healthy appearing Constitutional Narrative: Patient has class III obesity General Appearance: cooperative, well kempt and well developed Orientation / Consciousness: awake, oriented to person, oriented to place and oriented to time HEENT normocephalic, head/scalp atraumatic and moist oral mucous membranes Eyes PERRL, EOMs intact bilaterally and conjunctivae normal Neck supple, no JVD, thyroid normal and no carotid bruits General: trachea midline Resp normal respiratory effort, no retractions and no use of accessory muscles Resp Narrative: Patient has bilateral expiratory wheezes which are high-pitched bilaterally Auscultation: wheezes expiratory wheezes; Negative for rales or rhonchi Cardio regular rate, regular rhythm, S1 normal heart sound, S2 normal heart sound, no murmurs, no rub and no gallops GI normal to inspection, nondistended, normoactive bowel sounds, soft to palpation,non-tender and non-distended Extremity no clubbing, cyanosis or edema Skin no rashes or lesions noted General Skin Exam: no breakdown Neuro oriented x3, CN's II-XII intact bilaterally, moves all extremities, no focal motor deficits and no sensory deficits noted Sensorium / Orientation: awake and alert Speech: speech normal Psych affect normal Assessment & Plan Assessment/Plan (1) COPD exacerbation: PLAN: Plan 1. Exacerbation of COPD-patient will remain on IV corticosteroids, aerosol treatments, I will add oral Zithromax to her regimen #2 chronic hypoxic respiratory failure-oxygen will be weaned if possible, patient is currently on 4L at rest #3 acute congestive heart failure with preserved ejection fraction-patient will remain on IV Lasix at this time, I will change her Lasix to 20 mg IV twice daily. #4 Chronic atrial fibrillation-patient is on chronic anticoagulation and rate control medication Total clinical time spent by myself addressing patient's medical issues, reviewing all of her data,and collaborating with patient's care team: 35 minutes Charges/Coding Visit Charges Inpatient E&M: 62769 Subs Hosp L2 03/20/251936 Cosigner Signature (if applicable): CC: ~ Signed [facility]04-25-2025 History and physical note Author Orlando Maldonado [facility] Note Date/Time March 20, 2025 6:1 7am [facility] Medical Records Department [address] [place] [address] H&P Exam - Hospitalist 03/19/252137 MR#: [id number] Acct: [id number] Name: PIPER CLARK Rep #:[id number] 2 : 1955 69 From: Orlando Zavaleta DO PCP: Dr. Genia Chappell MD Status:ADM IN Location: [place] [address] HPI - General General Date of Admission: 03/19/25 Date of Service: 03/19/25 Chief Complaint: SOB, Wheezing and LE Edema. HPI Narrative PIPER CLARK, is a 69 F with a past medical history of essential hypertension; on metoprolol and furosemide, history of hyperlipidemia; currentlynot on treatment, morbid obesity; with BMI of 46.8 this admission, [place], chronic atrial fibrillation; on diltiazem and apixaban, CAD, history of tobacco abuse; with subsequent asthma/COPD; on 4L NC at baseline on Trelegy Ellipta and as needed albuterol, narcolepsy; on modafinil, seasonal allergies; on montelukast, migraine headaches; on Nurtec ODT daily, depression; on duloxetine, history of cellulitis, history of septic olecranon bursitis of the Right elbow, history of hemorrhoids, history of appendectomy (~1994), history of Right heart catheterization (~2021) history of removal of ovary (~1994), history of GERD; currently not on treatment, osteopenia and OA; with chronic back pain on acetaminophen twice daily who presents to [facility] ER complaining of shortness of breath, wheezing and lower extremity edema. Ms. Clark reports her symptoms began ~2 weeks prior to admission with a gradual-onset of progressively worsening dyspnea on exertion that progressed to shortness of breath at rest. She initially contacted her PCP last week who instructed her to increase her Lasix to 40 mg twice daily and to increase her potassium with blood work done 4 days ago. Unfortunately, she did not experience much improvement and she was told to increase her Lasix again for thenext 4 days with continued dyspnea. She states she has not been previously diagnosed with CHF but she does describe increasing lower extremity edema with aweight gain of about ~30 pounds over the past ~10 months. She admits to lethargy, increasing sensation of chest pressure along with back pain and lower extremity edema. She denies associated fever, chills, runny nose, sore throat, abdominal pain, nausea, vomiting, diarrhea, constipation, dysuria, hematuria, urinary frequency, headache or rash. In the ER she was noted to have clinical evidence of AE COPD complicated by an elevated NT pro-BNP II of 1,003 pg/mL present on admission with a corresponding CXR that revealed possible small left pleural effusion and age-indeterminate fracture of the Left humeral neck with clinical correlation recommended compounded by mildly elevated troponin T of 19 ng/L suspected to be due to acute cardiac strain with all of these issues culminating to cause acute-on chronic respiratory insufficiency. She was then admitted to the PCU for ongoing care for a stay that is expected to extend beyond 2 midnights. [facility] Medical History Atrial fibrillation Hypertension Abnormal stress test Atrial fibrillation with rapid ventricular response Tachycardia Asthma Chronic airway obstruction Motion sickness Osteopenia Sleep apnea GERD (gastroesophageal reflux disease) Morbid obesity Anxiety Fatigue Smoker Depression Migraines Acute respiratory failure with hypoxia COPD exacerbation Acute sinusitis Cellulitis of left forearm Cellulitis and abscess of face Urinary tract infection Septic olecranon bursitis of right elbow Olecranon bursitis of right elbow Bursitis Sebaceous cyst of axilla Back pain Bronchitis URI (upper respiratory infection) Knee pain Hemorrhoids SOB (shortness of breath) Lung disease Arthritis Home Medications ?Medication ?Instructions ?Recorded ?Last Taken ?Type montelukast 10 mg tablet 10 mg PO QHS allergies 09/07 Unknown History fluticasone fur. 200 mcg-umeclid 1 inh inhalation BATSHEVA Y SOB 07/08/23 07/08/23 History 62.5 mcg-vilant 25 mcg inhalat.powder (Trelegy Ellipta) rimegepant 75 mg disintegrating 75 mg PO DAILY PRN olesya tamika 07/08/23 Unknown History tablet (Nurtec ODT) albuterol sulfate 90 mcg/actuation 2 puff inhalation Q 4H PRN 02/13/24 Unknown History aerosol inhaler Shortness Of Breath diltiazem HCl 240 mg capsule,24 240 mg PO QDAY 4 04/09/24 History hr,extended release (Tiadylt ER) potassium chloride 20 mEq 20 meq PO DAILY #90 tabs 11/18 Unknown Rx tablet,extended release duloxetine 60 mg capsule,delayed 60 mg PO QDAY 4 Unknown History release modafinil 100 mg tablet 100 mg PO QDAY PRN narcoleps y 10/01/24 Unknown History metoprolol tartrate 50 mg tablet 50 mg PO BID #180 tab s 10/09/24 Unknown Rx apixaban 5 mg tablet (Eliquis) 5 mg PO BID #60 tabs Unknown Rx fluticasone propionate 50 2 spray intranasal DAILY Unknown History mcg/actuation nasal spray,suspension (24 Hour Allergy Relief) furosemide 40 mg tablet 40 mg PO Q12H 03/19/25 Unkno wn History Allergy/AdvReac Type Severity Reaction Status Date / Time feathers Allergy Intermediate Shortness Verified 03/19/25 20:02 of breath house dust Allergy Unknown Verified 03/19/25 20:02 mold Allergy Unknown Verified 03/19/25 20:02 Family History Mother CAD (coronary artery disease) Diabetes C. difficile colitis Father CAD (coronary artery disease) Sister CAD (coronary artery disease) Brother , 62 Colon cancer Son , 45 Drug overdose Other Atrial fibrillation CHF (congestive heart failure) Cancer Heart disease Surgical History Hx of cardiac catheterization (~04/09/24) H/O left cataract extraction H/O right heart catheterization (~07/19/22) Hx of removal of ovary (~1994) History of appendectomy (~1994) Social History Smoking Status: Former smoker alcohol intake: current alcohol intake frequency: holidays/special occasions only substance use type: does not use caffeine: Yes Type: coffee Number of servings: 2 ROS ROS Narrative Review of Systems: Constitutional: Patient admits to lethargy and weight gain as per HPI. She denies fevers, chills or sweats. Eyes: Patient denies changes in vision or discharge from eyes. ENT: Patient denies runny nose, sore throat or ear pain. Resp: Patient admits to shortness of breath and wheezing. She denies cough. CV: Patient admits to pressure sensation in her chest made worse with deep breathing but she denies heart racing or palpitations. GI: Patient denies abdominal pain, nausea, vomiting, diarrhea or constipation. : Patient denies dysuria, hematuria urinary frequency. MSK: Patient admits to generalized weakness and back pain as per HPI. Skin: Patient denies rash, abscess, wounds or jaundice. Psych: Patient denies symptoms of uncontrolled depression or anxiety. Neuro: Patient denies headache, paresthesias or focal neurologic deficits. Allergy: Patient denies lip swelling, tongue swelling or urticaria. Hematology: Patient admits to easy bleeding and bruisability on apixaban. Endocrinology: Patient denies polyuria, polydipsia, polyphagia or heat/cold intolerance. 14 point ROS otherwise negative except for positives noted above in HPI. Vital Signs Vital Signs Vital Signs: 03/19/25 19:56 03/19/25 20:02 03/19/25 20:03 Temperature 98.2 F Temperature Source Oral Pulse Rate 99 Respiratory Rate 23 H Respiratory Effort Short of Breath Labored Respiratory Depth Deep Respiratory Pattern Tachypnea Blood Pressure 161/101 H Blood Pressure Mean 121 Pulse Ox 92 95 Oxygen Delivery Method Nasal Cannula Nasal Cannula Nasal Cannula Oxygen Flow Rate (L/min) 6 6 6 03/19/25 20:16 03/19/25 20:24 03/19/25 21:02 Temperature 98.2 F Temperature Source Oral Pulse Rate 87 83 Respiratory Rate 24 H 18 Respiratory Effort Respiratory Depth Respiratory Pattern Tachypnea Blood Pressure 124/62 H Blood Pressure Mean 82 Pulse Ox 96 96 Oxygen Delivery Method Nasal Cannula Nasal Cannula Oxygen Flow Rate (L/min) 4 4 03/19/25 21:36 Temperature Temperature Source Pulse Rate Respiratory Rate Respiratory Effort Respiratory Depth Respiratory Pattern Blood Pressure 131/89 H Blood Pressure Mean Pulse Ox Oxygen Delivery Method Oxygen Flow Rate (L/min) Weight Weight: 255 lb 11.779 oz Body Mass Index (BMI) 46.7 Physical Exam Const alert and oriented x3 Constitutional Narrative: Mild distress noted and morbidly obese patient. General Appearance: cooperative HEENT normocephalic, head/scalp atraumatic, hearing grossly normal bilaterally and moist oral mucous membranes Eyes PERRL, EOMs intact bilaterally and conjunctivae normal Neck no lymphadenopathy, supple and no JVD Resp Resp Narrative: Diminished breath sounds throughout with faint expiratory wheezes bilaterally and conversational dyspnea noted. No accessory muscle use or retractions. Cardio Cardio Narrative: Irregularly irregular at ~80 bpm. GI normal to inspection, nondistended, normoactive bowel sounds, soft to palpation,non-tender and non-distended GI Narrative: Morbidly obese. Extremity Extremity Narrative: ~2+ bilateral lower extremity pitting edema. Skin Skin Narrative: Patient has no evidence of rash, abscess, wounds or jaundice. Neuro oriented x3, CN's II-XII intact bilaterally, moves all extremities and no focal motor deficits Sensorium / Orientation: awake, alert, oriented to person, oriented to place andoriented to time Speech: speech normal Psych affect normal Results Medical Records Data Attestation: I reviewed the patient's medical records Lab / Micro Data Attestation: I reviewed the patient's lab results. 03/19/25 20:03 03/19/25 20:03 Labs: Laboratory Results - last 24 hr 03/19/25 20:03: WBC 13.7 H, RBC 4.09 L, Hgb 11.7 L, Hct 39.1, MCV 95.6, MCH 28.6, MCHC 29.9 L, RDW Std Deviation 47.8 H, RDW Coeff of Beena 13.5, Plt Count 373, MPV 10.0, Immature Gran % (Auto) 0.400, Neut % (Auto) 73.9 H, Lymph % (Auto) 13.9 L, Gilmer % (Auto) 9.2, Eos % (Auto) 2.2, Baso % (Auto) 0.4, Absolute Neuts (auto) 10.2 H, Absolute Lymphs (auto) 1.91, Nucleated RBC % 0, Sodium 133,Potassium 4.3, Chloride 86 L, Carbon Dioxide 38.3 H, Anion Gap 9, BUN 13, Creatinine 0.80, Estim Creat Clear Calc 77.85, Est GFR (MDRD) Non-Af 79, BUN/Creatinine Ratio 16.7, Glucose 232 H, Calcium 9.2, Troponin T High Sens 19 H, NT pro BNP II 1003 H Imaging Radiology Impression Chest X-Ray 03/19/25 20:15 IMPRESSION: 1. Possible small left pleural effusion. 2. Age-indeterminate fracture of the left humeral neck. Please correlate. Reading [facility] Assessment & Plan Assessment/Plan (1) COPD exacerbation: (2) CHF (congestive heart failure): QUALIFIERS: Heart failure type: unspecified Heart failure chronicity: acute Qualified Code(s): I50.9 - Heart failure, unspecified (3) Edema of both legs: (4) Elevated troponin: (5) Coronary artery disease: QUALIFIERS: Coronary Disease-Associated Artery/Lesion type: unspecified vessel or lesion type [place] vs. transplanted heart: [place] heart Associated angina: without angina Qualified Code(s): I25.10 - Atherosclerotic heart disease of [place] coronary artery without angina pectoris (6) Respiratory insufficiency: (7) Morbid obesity with BMI of 45.0-49.9, adult: (8) Atrial fibrillation: QUALIFIERS: Atrial fibrillation type: unspecified chronic Qualified Code(s): I48.20 - Chronic atrial fibrillation, unspecified (9) Chronic anticoagulation: PLAN: Plan 1. AE COPD - Admit to PCU. Continue Solu-Medrol IV begun in the ER plus scheduled and as needed nebulizers. Give acetaminophen as needed pain or fever. 2. Elevated NT pro-BNP II of 1,003 pg/mL present on admission with ~30 pound weight gain in ~2+ bilateral lower extremity edema consistent with suspected AE CHF complicating #1 - Maintain IV furosemide began in ER daily. Check NT pro-BNP II daily to follow trend. Check echocardiogram to evaluate LVEF. 3. Mildly elevated troponin T of 19 ng/L suspected to be due to acute cardiac strain due to #1 & #2 in the setting of previously noted CAD - Serialize troponin to follow trend. 4. Kllkr-nh-Yyrsruf Respiratory Insufficiency attributable to #1 - #3 - Wean additional supplemental oxygen as tolerated. 5. Morbid Obesity; with BMI of 46.8 this admission plus WINIFRED adding to the burden of disease outlined from #1 - #4 - Weight loss will be recommended. Continue nocturnal CPAP as previous. Check TSH. This complicates her case and may hamper recovery. 6. Chronic atrial fibrillation; on diltiazem and apixaban adding to the medicalcomplexity outlined from #1 - #5 - Maintain current regimen. 7. Essential hypertension; on metoprolol and furosemide - Maintain home regimenexcept furosemide will be switched to IV in light of #2. 8. History of hyperlipidemia; currently not on treatment - Check lipid profile this admission to confirm status. 9. Narcolepsy; on modafinil - Resume modafinil as before. 10. Seasonal allergies; on montelukast - Maintain current treatment. 11. Migraine headaches; on Nurtec ODT daily - Hold this agent while inpatient as there is a contraindication with coadministration with modafinil. 12. Depression; on duloxetine - Stable. Continue duloxetine as previous. 13. History of cellulitis and septic olecranon bursitis of the Right elbow - Noted no evidence of recurrence at this time. 14. History of hemorrhoids - Stable. 15. History of appendectomy (~1994) - Noted. 16. History of Right heart catheterization (~2021) - Noted. 17. History of removal of ovary (~1994) - Noted for the sake of completeness. 18. History of GERD; currently not on treatment - Start PPI in light of steroids used to treat #1. 19. Osteopenia - Stable. 20. OA; with chronic back pain on acetaminophen twice daily - Give acetaminophen prn for pain or fever. 21. DVT prophylaxis - Patient is already on apixaban for #6 which will be continued. Total time: Approximately (but not less than) 75 minutes. Charges/Coding Visit Charges Inpatient E&M: 40993 Init Hosp L3 03/20/25 0617 <Electronically signed by Orlnado Bolden DO> Cosigner Signature (if applicable): CC: Dr. Genia Chappell MD; Dr. Orlando Bolden DO~ Signed [facility] Work Phone: [phone] [phone] History and physical note [facility] Medical Records Department [address] [place] [address] H&P Exam - Hospitalist 03/19/252137 MR#: [id number] Acct: [id number] Name: BENITOPIPER Rep #:[id number] 2 : 1955 69 From: Orlando Zavaleta DO PCP: Dr. Genia Chappell MD Status:ADM IN Location: [id number] - General General Date of Admission: 03/19/25 Date of Service: 03/19/25 Chief Complaint: SOB, Wheezing and LE Edema. HPI Narrative PIPER CLARK, is a 69 F with a past medical history of essential hypertension; on metoprolol andfurosemide, history of hyperlipidemia; currentlynot on treatment, morbid obesity; with BMI of 46.8 this admission, WINIFRED, chronic atrial fibrillation; on diltiazem and apixaban, CAD, history of tobacco abuse; with subsequent asthma/COPD; on 4L NC at baseline on Trelegy Ellipta and as needed albuterol, narcolepsy; on modafinil, seasonal allergies; on montelukast, migraine headaches; on Nurtec ODT daily, depression; on duloxetine, history of cellulitis, history of septic olecranon bursitis of the Right elbow, history of hemorrhoids, history of appendectomy (~1994), history of Right heart catheterization (~2021) history of removal of ovary (~1994), history of GERD; currently not on treatment, osteopenia and OA; with chronic back pain on acetaminophen twice daily who presents to [facility] ER complaining of shortness of breath, wheezing and lower extremity edema. Ms. Clark reports her symptoms began ~2 weeks prior to admission with a gradual-onset of progressively worsening dyspnea on exertion that progressed to shortness of breath at rest. She initially contacted her PCP last week who instructed her to increase her Lasix to 40 mg twice daily and to increase her potassium with blood work done 4 days ago. Unfortunately, she did not experience much improvement and she was told to increase her Lasix again for thenext 4 days with continued dyspnea. She states she has not been previously diagnosed with CHF but she does describe increasing lower extremity edema with aweight gain of about ~30 pounds over the past ~10 months. She admits to lethargy, increasing sensation of chest pressure along with back pain and lower extremity edema. She denies associated fever, chills, runny nose, sore throat, abdominal pain, nausea, vomiting, diarrhea, constipation, dysuria, hematuria, urinary frequency, headache or rash. In the ER she was noted to have clinicalevidence of AE COPD complicated by an elevated NT pro-BNP II of 1,003 pg/mL present on admission wit h a corresponding CXR that revealed possible small left pleural effusion and age-indeterminate fracture of the Left humeral neck with clinical correlation recommended compounded by mildly elevated troponin T of 19 ng/L suspected to be due to acute cardiac strain with all of these issues culminatingto cause acute- on chronic respiratory insufficiency. She was then admitted to the PCU for ongoing care for a stay that is expected to extend beyond 2 midnights. [facility] Medical History Atrial fibrillation Hypertension Abnormal stress test Atrial fibrillation with rapid ventricular response Tachycardia Asthma Chronic airway obstruction Motion sickness Osteopenia Sleep apnea GERD (gastroesophageal reflux disease) Morbid obesity Anxiety Fatigue Smoker Depression Migraines Acute respiratory failure with hypoxia COPD exacerbation Acute sinusitis Cellulitis of left forearm Cellulitis and abscess of face Urinary tract infection Septic olecranon bursitis of right elbow Olecranon bursitis of right elbow Bursitis Sebaceous cyst of axilla Back pain Bronchitis URI (upper respiratory infection) Knee pain Hemorrhoids SOB (shortness of breath) Lung disease Arthritis Home Medications ?Medication ?Instructions ?Recorded ?Last Taken ?Type montelukast 10 mg tablet 10 mg PO QHS allergies 09/07 Unknown History fluticasone fur. 200 mcg-umeclid 1 inh inhalation BATSHEVA Y SOB 07/08/23 07/08/23 History 62.5 mcg-vilant 25 mcg inhalat.powder (Trelegy Ellipta) rimegepant 75 mg disintegrating 75 mg PO DAILY PRN olesya tamika 07/08/23 Unknown History tablet (Nurtec ODT) albuterol sulfate 90 mcg/actuation 2 puff inhalation Q 4H PRN 02/13/24 Unknown History aerosol inhaler Shortness Of Breath diltiazem HCl 240 mg capsule,24 240 mg PO QDAY 4 04/09/24 History hr,extended release (Tiadylt ER) potassium chloride 20 mEq 20 meq PO DAILY #90 tabs 11/18 Unknown Rx tablet,extended release duloxetine 60 mg capsule,delayed 60 mg PO QDAY 4 Unknown History release modafinil 100 mg tablet 100 mg PO QDAY PRN narcoleps y 10/01/24 Unknown History metoprolol tartrate 50 mg tablet 50 mg PO BID #180 tab s 10/09/24 Unknown Rx apixaban 5 mg tablet (Eliquis) 5 mg PO BID #60 tabs Unknown Rx fluticasone propionate 50 2 spray intranasal DAILY Unknown History mcg/actuation nasal spray,suspension (24 Hour Allergy Relief) furosemide 40 mg tablet 40 mg PO Q12H 03/19/25 Unkno wn History Allergy/AdvReac Type Severity Reaction Status Date / Time feathers Allergy Intermediate Shortness Verified 03/19/25 20:02 of breath house dust Allergy Unknown Verified 03/19/25 20:02 mold Allergy Unknown Verified 03/19/25 20:02 Family History Mother CAD (coronary artery disease) Diabetes C. difficile colitis Father CAD (coronary artery disease) Sister CAD (coronary artery disease) Brother , 62 Colon cancer Son , 45 Drug overdose Other Atrial fibrillation CHF (congestive heart failure) Cancer Heart disease Surgical History Hx of cardiac catheterization (~04/09/24) H/O left cataract extraction H/O right heart catheterization (~07/19/22) Hx of removal of ovary (~1994) History of appendectomy (~1994) Social History Smoking Status: Former smoker alcohol intake: current alcohol intake frequency: holidays/special occasions only substance use type: does not use caffeine: Yes Type: coffee Number of servings: 2 ROS ROS Narrative Review of Systems: Constitutional: Patient admits to lethargy and weight gain as per HPI. She denies fevers, chills orsweats. Eyes: Patient denies changes in vision or discharge from eyes. ENT: Patient denies runny nose, sore throat or ear pain. Resp: Patient admits to shortness of breath and wheezing. She denies cough. CV: Patient admits to pressure sensation in her chest made worse with deep breathing but she deniesheart racing or palpitations. GI: Patient denies abdominal pain, nausea, vomiting, diarrhea or constipation. : Patient denies dysuria, hematuria urinary frequency. MSK: Patient admits to generalized weakness and back pain as per HPI. Skin: Patient denies rash, abscess, wounds or jaundice. Psych: Patient denies symptoms of uncontrolled depression or anxiety. Neuro: Patient denies headache, paresthesias or focal neurologic deficits. Allergy: Patient denies lip swelling, tongue swelling or urticaria. Hematology: Patient admits to easy bleeding and bruisability on apixaban. Endocrinology: Patient denies polyuria, polydipsia, polyphagia or heat/cold intolerance. 14 point ROS otherwise negative except for positives noted above in HPI. Vital Signs Vital Signs Vital Signs: 03/19/25 19:56 03/19/25 20:02 03/19/25 20:03 Temperature 98.2 F Temperature Source Oral Pulse Rate 99 Respiratory Rate 23 H Respiratory Effort Short of Breath Labored Respiratory Depth Deep Respiratory Pattern Tachypnea Blood Pressure 161/101 H Blood Pressure Mean 121 Pulse Ox 92 95 Oxygen Delivery Method Nasal Cannula Nasal Cannula Nasal Cannula Oxygen Flow Rate (L/min) 6 6 6 03/19/25 20:16 03/19/25 20:24 03/19/25 21:02 Temperature 98.2 F Temperature Source Oral Pulse Rate 87 83 Respiratory Rate 24 H 18 Respiratory Effort Respiratory Depth Respiratory Pattern Tachypnea Blood Pressure 124/62 H Blood Pressure Mean 82 Pulse Ox 96 96 Oxygen Delivery Method Nasal Cannula Nasal Cannula Oxygen Flow Rate (L/min) 4 4 03/19/25 21:36 Temperature Temperature Source Pulse Rate Respiratory Rate Respiratory Effort Respiratory Depth Respiratory Pattern Blood Pressure 131/89 H Blood Pressure Mean Pulse Ox Oxygen Delivery Method Oxygen Flow Rate (L/min) Weight Weight: 255 lb 11.779 oz Body Mass Index (BMI) 46.7 Physical Exam Const alert and oriented x3 Constitutional Narrative: Mild distress noted and morbidly obese patient. General Appearance: cooperative HEENT normocephalic, head/scalp atraumatic, hearing grossly normal bilaterally and moist oral mucous membranes Eyes PERRL, EOMs intact bilaterally and conjunctivae normal Neck no lymphadenopathy, supple and no JVD Resp Resp Narrative: Diminished breath sounds throughout with faint expiratory wheezes bilaterally and conversational dyspnea noted. No accessory muscle use or retractions. Cardio Cardio Narrative: Irregularly irregular at ~80 bpm. GI normal to inspection, nondistended, normoactive bowel sounds, soft to palpation,non-tender and non-distended GI Narrative: Morbidly obese. Extremity Extremity Narrative: ~2+ bilateral lower extremity pitting edema. Skin Skin Narrative: Patient has no evidence of rash, abscess, wounds or jaundice. Neuro oriented x3, CN's II-XII intact bilaterally, moves all extremities and no focal motor deficits Sensorium / Orientation: awake, alert, oriented to person, oriented to place andoriented to time Speech: speech normal Psych affect normal Results Medical Records Data Attestation: I reviewed the patient's medical records Lab / Micro Data Attestation: I reviewed the patient's lab results. 03/19/25 20:03 03/19/25 20:03 Labs: Laboratory Results - last 24 hr 03/19/25 20:03: WBC 13.7 H, RBC 4.09 L, Hgb 11.7 L, Hct 39.1, MCV 95.6, MCH 28.6, MCHC 29.9 L, RDW Std Deviation 47.8 H, RDW Coeff of Beena 13.5, Plt Count 373, MPV 10.0, Immature Gran % (Auto) 0.400, Neut % (Auto) 73.9 H, Lymph % (Auto) 13.9 L, Gilmer % (Auto) 9.2, Eos % (Auto) 2.2, Baso % (Auto) 0.4,Absolute Neuts (auto) 10.2 H, Absolute Lymphs (auto) 1.91, Nucleated RBC % 0, Sodium 133,Potassium 4.3, Chloride 86 L, Carbon Dioxide 38.3 H, Anion Gap 9, BUN 13, Creatinine 0.80, Estim Creat Clear Calc 77.85, Est GFR (MDRD) Non-Af 79, BUN/Creatinine Ratio 16.7, Glucose 232 H, Calcium 9.2, TroponinT High Sens 19 H, NT pro BNP II 1003 H Imaging Radiology Impression Chest X-Ray 03/19/25 20:15 IMPRESSION: 1. Possible small left pleural effusion. 2. Age-indeterminate fracture of the left humeral neck. Please correlate. Reading Location: [facility] Assessment & Plan Assessment/Plan (1) COPD exacerbation: (2) CHF (congestive heart failure): QUALIFIERS: Heart failure type: unspecified Heart failure chronicity: acute Qualified Code(s): I50.9 - Heart failure, unspecified (3) Edema of both legs: (4) Elevated troponin: (5) Coronary artery disease: QUALIFIERS: Coronary Disease-Associated Artery/Lesion type: unspecified vessel or lesion type [place] vs. transplanted heart: [place] heart Associated angina: without angina Qualified Code(s): I25.10 -Atherosclerotic heart disease of [place] coronary artery without angina pectoris (6) Respiratory insufficiency: (7) Morbid obesity with BMI of 45.0-49.9, adult: (8) Atrial fibrillation: QUALIFIERS: Atrial fibrillation type: unspecified chronic Qualified Code(s): I48.20 - Chronic atrial fibrillation, unspecified (9) Chronic anticoagulation: PLAN: Plan 1. AE COPD - Admit to PCU. Continue Solu-Medrol IV begun in the ER plus scheduled and as needed nebulizers. Give acetaminophen as needed pain or fever. 2. Elevated NT pro-BNP II of 1,003 pg/mL present on admission with ~30 pound weight gain in ~2+ bilateral lower extremity edema consistent with suspected AE CHF complicating #1 - Maintain IV furosemide began in ER daily. Check NT pro-BNP II daily to follow trend. Check echocardiogram to evaluate LVEF. 3. Mildly elevated troponin T of 19 ng/L suspected to be due to acute cardiac strain due to #1 & #2 in the setting of previously noted CAD - Serialize troponin to follow trend. 4. Xylps-qf-[id number] Respiratory Insufficiency attributable to #1 - #3 - Wean additional supplemental oxygen as tolerated. 5. Morbid Obesity; with BMI of 46.8 this admission plus WINIFRED adding to the burden of disease outlined from #1 - #4 - Weight loss will be recommended. Continue nocturnal CPAP as previous. Check TSH. This complicates her case and may hamper recovery. 6. Chronic atrial fibrillation; on diltiazem and apixaban adding to the medicalcomplexity outlined from #1 - #5 - Maintain current regimen. 7. Essential hypertension; on metoprolol and furosemide - Maintain home regimenexcept furosemide will be switched to IV in light of #2. 8. History of hyperlipidemia; currently not on treatment - Check lipid profile this admission to confirm status. 9. Narcolepsy; on modafinil - Resume modafinil as before. 10. Seasonal allergies; on montelukast - Maintain current treatment. 11. Migraine headaches; on Nurtec ODT daily - Hold this agent while inpatient as there is a contraindication with coadministration with modafinil. 12. Depression; on duloxetine - Stable. Continue duloxetine as previous. 13. History of cellulitis and septic olecranon bursitis of the Right elbow - Noted no evidence of recurrence at this time. 14. History of hemorrhoids - Stable. 15. History of appendectomy (~1994) - Noted. 16. History of Right heart catheterization (~2021) - Noted. 17. History of removal of ovary (~1994) - Noted for the sake of completeness. 18. History of GERD; currently not on treatment - Start PPI in light of steroids used to treat #1. 19. Osteopenia - Stable. 20. OA; with chronic back pain on acetaminophen twice daily - Give acetaminophen prn for pain or fever. 21. DVT prophylaxis - Patient is already on apixaban for #6 which will be continued. Total time: Approximately (but not less than) 75 minutes. Charges/Coding Visit Charges Inpatient E&M: 87736 Init Hosp L3 03/20/25 0617 Cosigner Signature (if applicable): CC: Dr. Genia Chappell MD; Dr. Orlando Bolden DO~ Signed [facility]04-25-2025 Discharge summary Author [facility] Note Date/Time March 19, 2025 10: 08pm [facility] Medical Records Department [address] [place] [id number] Emergency Department Summary 03/19/25 MR#: [id number] Acct: [id number] Name: PIPER CLARK Rep #:[id number] 2 : 1955 69 From: Juan F Curran DO PCP: Dr. Genia Chappell MD Status:ADM IN Location: [place] [address] HPI History of Present Illness Chief Complaint: Shortness of Breath Detail of Chief Complaint: Shortness of breath Informant: patient, spouse/S.O. and family Narrative Narrative: Patient presents with worsening shortness of breath x 2 weeks. She called her primary care physician last week who told her to increase her Lasix to 40 mg twice a day and also increase her potassium and then she had some blood work done 4 days ago. Today she called her PCP again that she really did not feel much improvement and was told to double her Lasix again for the next 4 days. Patient complains of exertional dyspnea. She has no significant cough or fever. She had some chest discomfort 4 days ago but none since. She has history of COPD and normally wears 4 L of home O2. She denies recent travel or surgery. She is currently on Eliquis for history of A- fib. She has not been diagnosed with CHF yet but she does describe leg edema and weight gain in the last 10 months of about 30 pounds [facility] Medical History Atrial fibrillation Hypertension Abnormal stress test Atrial fibrillation with rapid ventricular response Tachycardia Asthma Chronic airway obstruction Motion sickness Osteopenia Sleep apnea GERD (gastroesophageal reflux disease) Morbid obesity Anxiety Fatigue Smoker Depression Migraines Acute respiratory failure with hypoxia COPD exacerbation Acute sinusitis Cellulitis of left forearm Cellulitis and abscess of face Urinary tract infection Septic olecranon bursitis of right elbow Olecranon bursitis of right elbow Bursitis Sebaceous cyst of axilla Back pain Bronchitis URI (upper respiratory infection) Knee pain Hemorrhoids SOB (shortness of breath) Lung disease Arthritis Home Medications ?Medication ?Instructions ?Recorded ?Last Taken ?Type montelukast 10 mg tablet 10 mg PO QHS allergies 09/07 Unknown History fluticasone fur. 200 mcg-umeclid 1 inh inhalation BATSHEVA Y SOB 07/08/23 07/08/23 History 62.5 mcg-vilant 25 mcg inhalat.powder (Trelegy Ellipta) rimegepant 75 mg disintegrating 75 mg PO DAILY PRN olesya tamika 07/08/23 Unknown History tablet (Nurtec ODT) albuterol sulfate 90 mcg/actuation 2 puff inhalation Q 4H PRN 02/13/24 Unknown History aerosol inhaler Shortness Of Breath diltiazem HCl 240 mg capsule,24 240 mg PO QDAY 4 04/09/24 History hr,extended release (Tiadylt ER) potassium chloride 20 mEq 20 meq PO DAILY #90 tabs 11/18 Unknown Rx tablet,extended release duloxetine 60 mg capsule,delayed 60 mg PO QDAY 4 Unknown History release modafinil 100 mg tablet 100 mg PO QDAY PRN narcoleps y 10/01/24 Unknown History metoprolol tartrate 50 mg tablet 50 mg PO BID #180 tab s 10/09/24 Unknown Rx apixaban 5 mg tablet (Eliquis) 5 mg PO BID #60 tabs Unknown Rx fluticasone propionate 50 2 spray intranasal DAILY Unknown History mcg/actuation nasal spray,suspension (24 Hour Allergy Relief) furosemide 40 mg tablet 40 mg PO Q12H 03/19/25 Unkno wn History Allergy/AdvReac Type Severity Reaction Status Date / Time feathers Allergy Intermediate Shortness Verified 03/19/25 20:02 of breath house dust Allergy Unknown Verified 03/19/25 20:02 mold Allergy Unknown Verified 03/19/25 20:02 Family History Mother CAD (coronary artery disease) Diabetes C. difficile colitis Father CAD (coronary artery disease) Sister CAD (coronary artery disease) Brother , 62 Colon cancer Son , 45 Drug overdose Other Atrial fibrillation CHF (congestive heart failure) Cancer Heart disease Surgical History Hx of cardiac catheterization (~04/09/24) H/O left cataract extraction H/O right heart catheterization (~07/19/22) Hx of removal of ovary (~1994) History of appendectomy (~1994) Social History Smoking Status: Former smoker alcohol intake: current alcohol intake frequency: holidays/special occasions only substance use type: does not use caffeine: Yes Type: coffee Number of servings: 2 ROS ROS ED Review of Systems ROS Unobtainable: other Constitutional Constitutional ED: Reports lethargy; Denies chills, fever(s), sweats or weight loss Eyes Eyes: Denies blurry vision, change in vision or diplopia ENT ENT ED: Denies rhinorrhea or sore throat Cardiovascular Cardiovascular: Reports chest pain; Denies orthopnea or racing heartbeat Respiratory/Chest Respiratory/Chest: Reports dyspnea and dyspnea on exertion; Denies cough, orthopnea or sputum Gastrointestinal Gastrointestinal: Denies abdominal pain, diarrhea, nausea or vomiting Genitourinary Genitourinary ED: Denies dysuria, hematuria or urinary frequency Musculoskeletal Musculoskeletal: Reports other Details: Bilateral leg edema ; Denies arthralgias, back pain, myalgias or neck pain Integumentary Denies abscess, Abrasions or rash Neurologic Neurologic: Denies headache(s) or weakness Psychiatric Psychiatric: Denies anxiety, depression or suicidal thoughts Endocrine Endocrinology: Denies polydipsia, polyphagia or polyuria Hematologic/Lymphatic Hematologic/Lymphatic: Denies easy bleeding, easy bruising or lymphadenopathy Allergic/Immunologic Allergic/Immunologic ED: Denies mouth swelling, tongue swelling or urticaria EXAM Physical Exam Const Vital Signs: 03/19/25 19:56 03/19/25 20:02 03/19/25 20:03 Temperature 98.2 F Temperature Source Oral Pulse Rate 99 Respiratory Rate 23 H Respiratory Effort Short of Breath Labored Respiratory Depth Deep Respiratory Pattern Tachypnea Blood Pressure 161/101 H Blood Pressure Mean 121 Pulse Ox 92 95 Oxygen Delivery Method Nasal Cannula Nasal Cannula Nasal Cannula Oxygen Flow Rate (L/min) 6 6 6 03/19/25 20:16 03/19/25 20:24 03/19/25 21:02 Temperature 98.2 F Temperature Source Oral Pulse Rate 87 83 Respiratory Rate 24 H 18 Respiratory Effort Respiratory Depth Respiratory Pattern Tachypnea Blood Pressure 124/62 H Blood Pressure Mean 82 Pulse Ox 96 96 Oxygen Delivery Method Nasal Cannula Nasal Cannula Oxygen Flow Rate (L/min) 4 4 03/19/25 21:36 Temperature Temperature Source Pulse Rate Respiratory Rate Respiratory Effort Respiratory Depth Respiratory Pattern Blood Pressure 131/89 H Blood Pressure Mean Pulse Ox Oxygen Delivery Method Oxygen Flow Rate (L/min) Positive well nourished and well developed General Appearance ED: well developed and NAD HEENT Reports TM's clear and moist mucous membranes normocephalic and atraumatic; Negative for trauma or tenderness Tympanic Membrane ED: Yes TM's clear Eyes PERRL and EOMs intact bilaterally General Eye ED: Negative for pale conjunctiva or scleral icterus Neck no lymphadenopathy, supple and no JVD General: Negative for tenderness Chest Wall inspection of chest normal and palpation of chest normal Chest: Negative for tenderness Resp No normal respiratory effort and No clear to auscultation bilaterally Resp Narrative: Patient with mild conversational dyspnea. Diminished breath sounds bilaterally with faint expiratory wheezes noted. Few Rales in the bases. No accessory muscle use or retractions. Patient's O2 sat on 4 L when she arrived was 84%. Effort and Inspection: Negative for respiratory distress or pain with movement Auscultation: wheezes; Negative for rhonchi or diminished lung sounds Cardio regular rate, regular rhythm, S1 normal heart sound, S2 normal heart sound and no murmurs Peripheral Pulses: pulses 2+ throughout GI normal to inspection, nondistended, normoactive bowel sounds, soft to palpation,non-tender, non-distended and no masses Back/Spine no CVA tenderness and no thoracic nor lumbar tenderness Extremity Extremity Narrative: +2 edema both lower extremities General Extremety ED: Negative for edema General Extremity: Negative for edema Neuro oriented x3, CN's II-XII intact bilaterally, no sensory deficits noted and gait normal Sensorium / Orientation: awake, alert, oriented to person, oriented to place andoriented to time Motor Exam: strength 5/5 throughout and strength abnormal Psych mental status grossly normal Skin no rashes or lesions noted and no wounds MDM MDM MDM Narrative Medical decision making narrative: Patient presents with increased dyspnea over the last 2 weeks. In the differential would be COPD exacerbation versus CHF or infectious etiology without I think is less likely. PE would be in the differential however patientalready anticoagulated and feel this is low probability. IV line established. She was given DuoNeb aerosol and started on Solu-Medrol. CBC with differential white count of 13.7 with hemoglobin 11.7 and platelet count of 373. 1 view chest x-ray showed small left pleural effusion and radiology thought there was aleft humeral neck fracture indeterminate age. Patient has not had any recent trauma. In the last year she did sustain a fall and fracture of that arm. BMP obtained showed sodium 133 with potassium of 4.3 and chloride of 86. BUN 13 andcreatinine 0.8. Troponin slightly elevated 19 and BT DRILL DOCTOR was elevated at thousand 3. Chest x-ray obtained showed a small left pleural effusion and some pulmonary congestion. Patient was started on Lasix 80 mg IV and given an inch Nitropaste to the anterior chest wall. She was given DuoNeb aerosol on arrival as well as a dose of Solu-Medrol 125 mg IV. Will discuss case with hospitalist to evaluate patient for admission for dyspnea with hypoxemia. Suspect CHF and acomponent of COPD as etiology. Patient also currently in A-fib and has lost theatrial kick which could lead to increased pulmonary congestion. Lab Data Attestation: I reviewed the patient's lab results. Labs: Laboratory Results - last 24 hr 03/19/25 20:03 WBC 13.7 H RBC 4.09 L Hgb 11.7 L Hct 39.1 MCV 95.6 MCH 28.6 MCHC 29.9 L RDW Std Deviation 47.8 H RDW Coeff of Beena 13.5 Plt Count 373 MPV 10.0 Immature Gran % (Auto) 0.400 Neut % (Auto) 73.9 H Lymph % (Auto) 13.9 L Gilmer % (Auto) 9.2 Eos % (Auto) 2.2 Baso % (Auto) 0.4 Absolute Neuts (auto) 10.2 H Absolute Lymphs (auto) 1.91 Nucleated RBC % 0 Sodium 133 Potassium 4.3 Chloride 86 L Carbon Dioxide 38.3 H Anion Gap 9 BUN 13 Creatinine 0.80 Estim Creat Clear Calc 77.85 Est GFR (MDRD) Non-Af 79 BUN/Creatinine Ratio 16.7 Glucose 232 H Calcium 9.2 Troponin T High Sens 19 H NT pro BNP II 1003 H Radiography Diagnostic Testing: Clinical Impression(s) from Imaging Studies Chest X-Ray 03/19/25 20:15 IMPRESSION: 1. Possible small left pleural effusion. 2. Age-indeterminate fracture of the left humeral neck. Please correlate. Reading Location: [facility] 1 view chest x-ray obtained interpreted by myself as slight pulmonary congestionwith small left pleural effusion. No infiltrate or pneumothorax noted. Radiology in agreement and they noted age-indeterminate fracture of left humeralneck EKG Initial EKG: Attestation: I personally reviewed and interpreted this EKG as follows: Comments: Atrial fibrillation with ventricular rate of 81 bpm with no acute ST segment change Discharge Plan Triage Chief Complaint: Shortness of Breath ED Provider: Juan F Curran Dx/Rx/DC Orders Clinical Impression: Acute dyspnea, Atrial fibrillation, CHF (congestive heart failure), COPD exacerbation Prescriptions: No Action diltiazem HCl [Tiadylt ER] 240 mg capsule,extended release 24 hr 240 mg PO QDAY furosemide 40 mg tablet 40 mg PO QAM Qty: 90 3RF potassium chloride 20 mEq tablet extended release 20 meq PO DAILY Qty: 90 3RF duloxetine 60 mg capsule,delayed release(DR/EC) 60 mg PO QDAY modafinil 100 mg tablet 100 mg PO QDAY PRN (Reason: narcolepsy) montelukast 10 MG tablet 10 mg PO QHS albuterol sulfate 90 mcg/actuation HFA aerosol inhaler 2 puff Inhalation Q4H PRN (Reason: Shortness Of Breath) Nurtec ODT 75 mg tablet,disintegrating 75 mg PO DAILY PRN (Reason: migraine) Patient Comments: TAKE 1 (ONE) TABLET BY MOUTH DAILY IF NEEDED FOR MIGRAINE Trelegy Ellipta 200-62.5-25 mcg blister with device 1 inh inhalation DAILY metoprolol tartrate 50 mg tablet 50 mg PO BID Qty: 180 3RF Eliquis 5 mg tablet 5 mg PO BID Qty: 60 11RF Primary Care Provider: Genia Chappell Referrals: Christy Perea MD [Med Staff - Brush Painter] - Print Language: [place]i Disposition Disposition: Acute Care Hospital [facility] What to do if you have Problems For any increased pain, shortness of breath, bleeding, nausea or vomiting, chestpain, or any unexpected problems, contact your Primary Care Provider. Call [facility] ([phone]) or report to the closest Emergency Room. Call 911 if necessary. 03/19/252207 <Electronically signed by Juan F Curran DO> Cosigner Signature (if applicable): CC: Dr. Genia Chappell MD ~ Signed [facility] Work Phone: 1(812) 602-474004-25-2025 Evaluation note* Diagnosis Onset Date Resolution Status Admit Date Respiratory insufficiency resolved March 19, 2025 10:05pm Acute dyspnea inactive March 19, 2025 10:05pm Atrial fibrillation inactive March 19, 2025 10:05pm CHF (congestive heart failure) in[place] March 19, 2025 10:05pm Chronic anticoagulation inactive [facility] 2024 10:05pm COPD exacerbation inactive February 252024 10:05pm Coronary artery disease inactive [facility] 2024 10:05pm Edema of both legs inactive March 19, 2025 10:05pm Elevated troponin inactive February 252024 10:05pm Morbid obesity with BMI of 45.0-49.9, adult inactive March 19 10:05pm [facility] Work Phone: 1(751) 649-217904-25-2025 Evaluation note* Diagnosis Onset Date Resolution Status Admit Date Morbid obesity with BMI of 45.0-49.9, adult acute March 19 10:05pm Respiratory insufficiency resolved March 19, 2025 10:05pm Acute dyspnea inactive March 19, 2025 10:05pm Atrial fibrillation inactive March 19, 2025 10:05pm CHF (congestive heart failure) inact [place] March 19, 2025 10:05pm Chronic anticoagulation inactive [facility] 2024 10:05pm COPD exacerbation inactive February 252024 10:05pm Coronary artery disease inactive [facility] 2024 10:05pm Edema of both legs inactive March 19, 2025 10:05pm Elevated troponin inactive February 252024 10:05pm Acute hypoxic respiratory failure acute April 05, 2025 1 1:12pm Bilateral edema of lower extremity acute April 05, 2025 1 1:12pm Chronic anticoagulation acute M 2024 11:12pm Elevated brain natriuretic peptide (BNP) level acute April 05 11:12pm Lactic acidosis acute April 05, 2025 11:12pm Leukocytosis acute April 05 11:12pm Morbid obesity with BMI of 45.0-49.9, adult acute April 05, 2025 11:12pm Obesity hypoventilation syndrome acu te April 05, 2025 11:12pm WINIFRED (obstructive sleep apnea) acute April 05, 2025 11:12pm Acute exacerbation of chroni c obstructive pulmonary disease (COPD) chronic April 05, 2025 1 1:12pm Atrial fibrillation chronic March 262024 11:12pm [facility] Work Phone: [phone]) 849-357904-25-2025 Evaluation note* Diagnosis Onset Date Resolution Status Admit Date Morbid obesity with BMI of 45.0-49.9, adult acute March 19 10:05pm Respiratory insufficiency resolved March 19, 2025 10:05pm Acute dyspnea inactive March 19, 2025 10:05pm Atrial fibrillation inactive March 19, 2025 10:05pm CHF (congestive heart failure) inact [place] March 19, 2025 10:05pm Chronic anticoagulation inactive [facility] 2024 10:05pm COPD exacerbation inactive February 252024 10:05pm Coronary artery disease inactive A [facility] 2024 10:05pm Edema of both legs inactive March 19, 2025 10:05pm Elevated troponin inactive February 252024 10:05pm Acute hypoxic respiratory failure acute April 05, 2025 1 1:26pm Bilateral edema of lower extremity acute April 05, 2025 1 1:26pm Chronic anticoagulation acute M 2024 11:26pm Elevated brain natriuretic peptide (BNP) level acute April 05 11:26pm Lactic acidosis acute April 05, 2025 11:26pm Leukocytosis acute April 05 11:26pm Morbid obesity with BMI of 45.0-49.9, adult acute April 05, 2025 11:26pm Obesity hypoventilation syndrome acu te April 05, 2025 11:26pm WINIFRED (obstructive sleep apnea) acute April 05, 2025 11:26pm Pericardial effusion acute April 05, 2025 11:26pm Acute exacerbation of chroni c obstructive pulmonary disease (COPD) chronic April 05, 2025 1 1:26pm Atrial fibrillation chronic March 262024 11:26pm [facility] Work Phone: 1(456) 702-122904-24-2025 Discharge summary [facility] Medical Records Department [address] [place] [id number] Emergency Department Summary 03/19/25 MR#: [id number] Acct: [id number] Name: PIPER CLARK Rep #:[id number] 2 : 1955 69 From: Juan F Curran DO PCP: Dr. Genia Chappell MD Status:ADM IN Location: [place] [address] HPI History of Present Illness Chief Complaint: Shortness of Breath Detail of Chief Complaint: Shortness of breath Informant: patient, spouse/S.O. and family Narrative Narrative: Patient presents with worsening shortness of breath x 2 weeks. She called her primary care physician last week who told her to increase her Lasix to 40 mg twice a day and also increase her potassium and then she had some blood work done 4 days ago. Today she called her PCP again that she really didnot feel much improvement and was told to double her Lasix again for the next 4 days. Patient complains of exertional dyspnea. She has no significant cough or fever. She had some chest discomfort 4 days ago but none since. She has history of COPD and normally wears 4 L of home O2. She denies recenttravel or surgery. She is currently on Eliquis for history of A-fib. She has not been diagnosed with CHF yet but she does describe leg edema and weight gain in the last 10 months of about 30 pounds [facility] Medical History Atrial fibrillation Hypertension Abnormal stress test Atrial fibrillation with rapid ventricular response Tachycardia Asthma Chronic airway obstruction Motion sickness Osteopenia Sleep apnea GERD (gastroesophageal reflux disease) Morbid obesity Anxiety Fatigue Smoker Depression Migraines Acute respiratory failure with hypoxia COPD exacerbation Acute sinusitis Cellulitis of left forearm Cellulitis and abscess of face Urinary tract infection Septic olecranon bursitis of right elbow Olecranon bursitis of right elbow Bursitis Sebaceous cyst of axilla Back pain Bronchitis URI (upper respiratory infection) Knee pain Hemorrhoids SOB (shortness of breath) Lung disease Arthritis Home Medications ?Medication ?Instructions ?Recorded ?Last Taken ?Type montelukast 10 mg tablet 10 mg PO QHS allergies 09/07 Unknown History fluticasone fur. 200 mcg-umeclid 1 inh inhalation BATSHEVA Y SOB 07/08/23 07/08/23 History 62.5 mcg-vilant 25 mcg inhalat.powder (Trelegy Ellipta) rimegepant 75 mg disintegrating 75 mg PO DAILY PRN olesya tamika 07/08/23 Unknown History tablet (Nurtec ODT) albuterol sulfate 90 mcg/actuation 2 puff inhalation Q 4H PRN 02/13/24 Unknown History aerosol inhaler Shortness Of Breath diltiazem HCl 240 mg capsule,24 240 mg PO QDAY 4 04/09/24 History hr,extended release (Tiadylt ER) potassium chloride 20 mEq 20 meq PO DAILY #90 tabs 11/18 Unknown Rx tablet,extended release duloxetine 60 mg capsule,delayed 60 mg PO QDAY 4 Unknown History release modafinil 100 mg tablet 100 mg PO QDAY PRN narcoleps y 10/01/24 Unknown History metoprolol tartrate 50 mg tablet 50 mg PO BID #180 tab s 10/09/24 Unknown Rx apixaban 5 mg tablet (Eliquis) 5 mg PO BID #60 tabs Unknown Rx fluticasone propionate 50 2 spray intranasal DAILY Unknown History mcg/actuation nasal spray,suspension (24 Hour Allergy Relief) furosemide 40 mg tablet 40 mg PO Q12H 03/19/25 Unkno wn History Allergy/AdvReac Type Severity Reaction Status Date / Time feathers Allergy Intermediate Shortness Verified 03/19/25 20:02 of breath house dust Allergy Unknown Verified 03/19/25 20:02 mold Allergy Unknown Verified 03/19/25 20:02 Family History Mother CAD (coronary artery disease) Diabetes C. difficile colitis Father CAD (coronary artery disease) Sister CAD (coronary artery disease) Brother , 62 Colon cancer Son , 45 Drug overdose Other Atrial fibrillation CHF (congestive heart failure) Cancer Heart disease Surgical History Hx of cardiac catheterization (~04/09/24) H/O left cataract extraction H/O right heart catheterization (~07/19/22) Hx of removal of ovary (~1994) History of appendectomy (~1994) Social History Smoking Status: Former smoker alcohol intake: current alcohol intake frequency: holidays/special occasions only substance use type: does not use caffeine: Yes Type: coffee Number of servings: 2 ROS ROS ED Review of Systems ROS Unobtainable: other Constitutional Constitutional ED: Reports lethargy; Denies chills, fever(s), sweats or weight loss Eyes Eyes: Denies blurry vision, change in vision or diplopia ENT ENT ED: Denies rhinorrhea or sore throat Cardiovascular Cardiovascular: Reports chest pain; Denies orthopnea or racing heartbeat Respiratory/Chest Respiratory/Chest: Reports dyspnea and dyspnea on exertion; Denies cough, orthopnea or sputum Gastrointestinal Gastrointestinal: Denies abdominal pain, diarrhea, nausea or vomiting Genitourinary Genitourinary ED: Denies dysuria, hematuria or urinary frequency Musculoskeletal Musculoskeletal: Reports other Details: Bilateral leg edema ; Denies arthralgias, back pain, myalgias or neck pain Integumentary Denies abscess, Abrasions or rash Neurologic Neurologic: Denies headache(s) or weakness Psychiatric Psychiatric: Denies anxiety, depression or suicidal thoughts Endocrine Endocrinology: Denies polydipsia, polyphagia or polyuria Hematologic/Lymphatic Hematologic/Lymphatic: Denies easy bleeding, easy bruising or lymphadenopathy Allergic/Immunologic Allergic/Immunologic ED: Denies mouth swelling, tongue swelling or urticaria EXAM Physical Exam Const Vital Signs: 03/19/25 19:56 03/19/25 20:02 03/19/25 20:03 Temperature 98.2 F Temperature Source Oral Pulse Rate 99 Respiratory Rate 23 H Respiratory Effort Short of Breath Labored Respiratory Depth Deep Respiratory Pattern Tachypnea Blood Pressure 161/101 H Blood Pressure Mean 121 Pulse Ox 92 95 Oxygen Delivery Method Nasal Cannula Nasal Cannula Nasal Cannula Oxygen Flow Rate (L/min) 6 6 6 03/19/25 20:16 03/19/25 20:24 03/19/25 21:02 Temperature 98.2 F Temperature Source Oral Pulse Rate 87 83 Respiratory Rate 24 H 18 Respiratory Effort Respiratory Depth Respiratory Pattern Tachypnea Blood Pressure 124/62 H Blood Pressure Mean 82 Pulse Ox 96 96 Oxygen Delivery Method Nasal Cannula Nasal Cannula Oxygen Flow Rate (L/min) 4 4 03/19/25 21:36 Temperature Temperature Source Pulse Rate Respiratory Rate Respiratory Effort Respiratory Depth Respiratory Pattern Blood Pressure 131/89 H Blood Pressure Mean Pulse Ox Oxygen Delivery Method Oxygen Flow Rate (L/min) Positive well nourished and well developed General Appearance ED: well developed and NAD HEENT Reports TM's clear and moist mucous membranes normocephalic and atraumatic; Negative for trauma or tenderness Tympanic Membrane ED: Yes TM's clear Eyes PERRL and EOMs intact bilaterally General Eye ED: Negative for pale conjunctiva or scleral icterus Neck no lymphadenopathy, supple and no JVD General: Negative for tenderness Chest Wall inspection of chest normal and palpation of chest normal Chest: Negative for tenderness Resp No normal respiratory effort and No clear to auscultation bilaterally Resp Narrative: Patient with mild conversational dyspnea. Diminished breath sounds bilaterally with faint expiratory wheezes noted. Few Rales in the bases. No accessory muscle use or retractions. Patient's O2 sat on4 L when she arrived was 84%. Effort and Inspection: Negative for respiratory distress or pain with movement Auscultation: wheezes; Negative for rhonchi or diminished lung sounds Cardio regular rate, regular rhythm, S1 normal heart sound, S2 normal heart sound and no murmurs Peripheral Pulses: pulses 2+ throughout GI normal to inspection, nondistended, normoactive bowel sounds, soft to palpation,non-tender, non-distended and no masses Back/Spine no CVA tenderness and no thoracic nor lumbar tenderness Extremity Extremity Narrative: +2 edema both lower extremities General Extremety ED: Negative for edema General Extremity: Negative for edema Neuro oriented x3, CN's II-XII intact bilaterally, no sensory deficits noted and gait normal Sensorium / Orientation: awake, alert, oriented to person, oriented to place andoriented to time Motor Exam: strength 5/5 throughout and strength abnormal Psych mental status grossly normal Skin no rashes or lesions noted and no wounds MDM MDM MDM Narrative Medical decision making narrative: Patient presents with increased dyspnea over the last 2 weeks. In the differential would be COPD exacerbation versus CHF or infectious etiology without I think is less likely. PE would be in the differential however patientalready anticoagulated and feel this is low probability. IV line established. She was given DuoNeb aerosol and started on Solu-Medrol. CBC with differential white count of 13.7with hemoglobin 11.7 and platelet count of 373. 1 view chest x-ray showed small left pleural effusion and radiology thought there was aleft humeral neck fracture indeterminate age. Patient has not had any recent trauma. In the last year she did sustain a fall and fracture of that arm. BMP obtained showed sodium 133 with potassium of 4.3 and chloride of 86. BUN 13 andcreatinine 0.8. Troponin slightly elevated 19 and BT DRILL DOCTOR was elevated at thousand 3. Chest x-ray obtained showed a small left pleural effusion and some pulmonary congestion. Patient was started on Lasix 80 mg IV and given an inch Ni tropaste to the anterior chest wall. She was given DuoNeb aerosol on arrival as well as a dose of Solu-Medrol 125 mg IV. Will discuss case with hospitalist to evaluate patient for admission for dyspnea with hypoxemia. Suspect CHF and acomponent of COPD as etiology. Patient also currently in A-fib and has lost theatrial kick which could lead to increased pulmonary congestion. Lab Data Attestation: I reviewed the patient's lab results. Labs: Laboratory Results - last 24 hr 03/19/25 20:03 WBC 13.7 H RBC 4.09 L Hgb 11.7 L Hct 39.1 MCV 95.6 MCH 28.6 MCHC 29.9 L RDW Std Deviation 47.8 H RDW Coeff of Beena 13.5 Plt Count 373 MPV 10.0 Immature Gran % (Auto) 0.400 Neut % (Auto) 73.9 H Lymph % (Auto) 13.9 L Gilmer % (Auto) 9.2 Eos % (Auto) 2.2 Baso % (Auto) 0.4 Absolute Neuts (auto) 10.2 H Absolute Lymphs (auto) 1.91 Nucleated RBC % 0 Sodium 133 Potassium 4.3 Chloride 86 L Carbon Dioxide 38.3 H Anion Gap 9 BUN 13 Creatinine 0.80 Estim Creat Clear Calc 77.85 Est GFR (MDRD) Non-Af 79 BUN/Creatinine Ratio 16.7 Glucose 232 H Calcium 9.2 Troponin T High Sens 19 H NT pro BNP II 1003 H Radiography Diagnostic Testing: Clinical Impression(s) from Imaging Studies Chest X-Ray 03/19/25 20:15 IMPRESSION: 1. Possible small left pleural effusion. 2. Age-indeterminate fracture of the left humeral neck. Please correlate. Reading Location: [facility] 1 view chest x-ray obtained interpreted by myself as slight pulmonary congestionwith small left pleural effusion. No infiltrate or pneumothorax noted. Radiology in agreement and they noted age-indeterminate fracture of left humeralneck EKG Initial EKG: Attestation: I personally reviewed and interpreted this EKG as follows: Comments: Atrial fibrillation with ventricular rate of 81 bpm with no acute ST segment change Discharge Plan Triage Chief Complaint: Shortness of Breath ED Provider: Juan F Curran Dx/Rx/DC Orders Clinical Impression: Acute dyspnea, Atrial fibrillation, CHF (congestive heart failure), COPD exacerbation Prescriptions: No Action diltiazem HCl [Tiadylt ER] 240 mg capsule,extended release 24 hr 240 mg PO QDAY furosemide 40 mg tablet 40 mg PO QAM Qty: 90 3RF potassium chloride 20 mEq tablet extended release 20 meq PO DAILY Qty: 90 3RF duloxetine 60 mg capsule,delayed release(DR/EC) 60 mg PO QDAY modafinil 100 mg tablet 100 mg PO QDAY PRN (Reason: narcolepsy) montelukast 10 MG tablet 10 mg PO QHS albuterol sulfate 90 mcg/actuation HFA aerosol inhaler 2 puff Inhalation Q4H PRN (Reason: Shortness Of Breath) Nurtec ODT 75 mg tablet,disintegrating 75 mg PO DAILY PRN (Reason: migraine) Patient Comments: TAKE 1 (ONE) TABLET BY MOUTH DAILY IF NEEDED FOR MIGRAINE Trelegy Ellipta 200-62.5-25 mcg blister with device 1 inh inhalation DAILY metoprolol tartrate 50 mg tablet 50 mg PO BID Qty: 180 3RF Eliquis 5 mg tablet 5 mg PO BID Qty: 60 11RF Primary Care Provider: Genia Chappell Referrals: Christy Perea MD [Med Staff - Brush Painter] - Print Language: Kuwaiti Disposition Disposition: Acute Care Hospital [facility] What to do if you have Problems For any increased pain, shortness of breath, bleeding, nausea or vomiting, chestpain, or any unexpected problems, contact your Primary Care Provider. Call [facility] ([phone]) or report tothe closest Emergency Room. Call 911 if necessary. 03/19/252207 Cosigner Signature (if applicable): CC: Dr. Genia Chappell MD ~ Signed [facility]04-24-2025 Radiology Diagnostic study note [facility] Imaging Services [address] [place] [address] [id number] Chest 1 View (Portable) MR#: [id number] Acct: [id number] Name: PIPER CLARK Rep #: [id number] : 1955 F 69 From: Juvenal Malagon DO PCP: Dr. Genia Chappell MD Status: REG ER Study:Chest 1 View (Portable) Date of Exam: 03/19/25 Exam# [id number] Ordering Dr: Stephany Curran DO PROCEDURE: CHEST 1 VIEW (PORTABLE) 03/19/2025 REASON FOR EXAM: DYSPNEA TECHNIQUE: Frontal view of the chest. COMPARISON: None FINDINGS: Cardiomediastinal silhouette is within normal limits. Possible small left pleural effusion. Lungs are otherwise clear. No sizable pneumothorax. Age-indeterminate impaction fracture of the left humeral neck. RAD/Chest 1 View (Portable) IMPRESSION: 1. Possible small left pleural effusion. 2. Age-indeterminate fracture of the left humeral neck. Please correlate. Reading Location: [facility] CC: Dr. Genia Chappell MD; Dr. Juan F Curran, DO ~ Medical Fee Clerk: Signed [facility]01-09-2025 Evaluation note* Diagnosis Onset Date Resolution Status Admit Date Fracture of left shoulder inactive December 04, 2024 1:43pm Acute dyspnea acute March 19, 2025 10:05pm Atrial fibrillation acute March 19, 2025 10:05pm CHF (congestive heart failure) acute March 19, 2025 10:05pm Chronic anticoagulation acute A pril 2024 10:05pm Edema of both legs acute March 19, 2025 10:05pm Elevated troponin acute February 252024 10:05pm Morbid obesity with BMI of 45.0-49.9, adult acute March 19 10:05pm Respiratory insufficiency acute March 19, 2025 10:05pm COPD exacerbation chronic February 252024 10:05pm Coronary artery disease chronic A pril 2024 10:05pm [facility] Work Phone: 1(347) 745-600201-09-2025 Evaluation note* Diagnosis Onset Date Resolution Status Admit Date Fracture of left shoulder inactive December 04, 2024 1:43pm Respiratory insufficiency resolved March 19, 2025 10:05pm Acute dyspnea inactive March 19, 2025 10:05pm Atrial fibrillation inactive March 19, 2025 10:05pm CHF (congestive heart failure) inact [place] March 19, 2025 10:05pm Chronic anticoagulation inactive A l 2024 10:05pm COPD exacerbation inactive February 252024 10:05pm Coronary artery disease inactive A [facility] 2024 10:05pm Edema of both legs inactive March 19, 2025 10:05pm Elevated troponin inactive February 252024 10:05pm Morbid obesity with BMI of 45.0-49.9, adult inactive March 19 10:05pm [facility] Work Phone: 1(213) 628-152112-03-2024 Evaluation note* Diagnosis Onset Date Resolution Status Admit Date Atrial fibrillation chronic Decem gerardo 2023 2:14pm Chronic airway obstruction chronic October 28, 2024 2:14pm Coronary artery disease chronic D ecember 2023 2:14pm Hypertension chronic October 2:14pm Morbid obesity chronic October 282023 2:14pm Sleep apnea chronic October 28, 2024 2:14pm Fracture of left shoulder inactive December 04, 2024 1:43pm [facility] Work Phone: 1(420) 680-933408-14-2023 Progress note Author Preston Pineda [facility] July 09, 2023 3:21pm Note Date/Time July 09, 2023 3: 20pm [facility] Medical Records Department [address] [place] [address] Progress Note - Hospitalist 07/09/23 1511 MR#: [id number] Acct: [id number] Name: PIPER CLARK Rep #:[id number] : 1955 67 From: Preston desai DO PCP: Dr. Christy Perea MD Status:ADM IN Location: [address] Reason for Visit Reason for Visit: Diagnoses Chronic obstructive pulmonary disease with (acute) exacerbation (07/08/23) Acute respiratory failure with hypoxia (07/08/23) Subjective Subjective Patient seen at bedside. Sitting comfortably in bedside chair on 3 L nasal cannula, conversing normally, no acute distress. States she feels significantlybetter since admission. Her cough and sputum production have improved significantly already. She notices that her oxygen saturations have dropped when she gets up to go to the bathroom, however she has not felt that short of breath with exertion. Denies any fevers or chills. Denies any wheezing. No other acute concerns. Objective Data Objective Data Vital Signs: Vital Signs Temp Pulse Resp BP Pulse Ox O2 Del Method O2 Flow Rate 97.8 F 77 21 H 152/70 H 95 Nasal Cannula 3 07/09/23 09:00 07/09/23 11:06 07/09/23 11:06 07/09/23 09:00 07/09/23 10:06 07/09/23 10:06 07/09/23 10:06 Oxygen Flow Rate (L/min) 3 Oxygen Delivery Method Nasal Cannula Weight: 100.561 kg Body Mass Index (BMI) 39.9 Intake & Output: Intake and Output for Last 24 Hours 07/07/23 07/08/23 07/09/23 23:59 23:59 23:59 Intake Total 455 / 455 911 / 911 Balance 455 / 455 911 / 911 Lab / Micro Data Attestation: I reviewed the patient's lab results. 07/09/23 06:30 07/09/23 06:30 Labs: Laboratory Results - last 24 hr 07/08/23 15:40: WBC 14.0 H, RBC 4.52, Hgb 13.1, Hct 42.3, MCV 93.6, MCH 29.0, MCHC 31.0 L, RDW Std Deviation 49.2 H, RDW Coeff of Beena 14.4, Plt Count 281, MPV9.7, Immature Gran % (Auto) 0.400, Neut % (Auto) 78.6 H, Lymph % (Auto) 10.0 L, Gilmer % (Auto) 9.7, Eos % (Auto) 1.0, Baso % (Auto) 0.3, Absolute Neuts (auto) 11.0 H, Absolute Lymphs (auto) 1.40, Nucleated RBC % 0, D-Dimer Quant (PE/DVT) 0.63 H*, Sodium 138, Potassium 3.9, Chloride 100, Carbon Dioxide 34.0 H, Anion Gap 4 L, BUN 11, Creatinine 0.69, Est GFR (MDRD) Af Amer 108, Est GFR (MDRD) Non-Af 90, BUN/Creatinine Ratio 16.0, Glucose 110 H, Calcium 8.9, Troponin I High Sens 24 07/09/23 06:30: WBC 12.8 H, RBC 4.52, Hgb 13.1, Hct 42.2, MCV 93.4, MCH 29.0, MCHC 31.0 L, RDW Std Deviation 47.9 H, RDW Coeff of Beena 14.0, Plt Count 282, MPV9.8, Immature Gran % (Auto) 0.900, Neut % (Auto) 91.8 H, Lymph % (Auto) 5.0 L, Gilmer % (Auto) 2.0, Eos % (Auto) 0.0, Baso % (Auto) 0.3, Absolute Neuts (auto) 11.7 H, Absolute Lymphs (auto) 0.64 L, Nucleated RBC % 0, Sodium 137, Potassium 4.3, Chloride 100, Carbon Dioxide 21.0, Anion Gap 16 H, BUN 10, Creatinine 0.55,Estim Creat Clear Calc 41.99, Est GFR (MDRD) Af Amer 140, Est GFR (MDRD) Non-Af 116, BUN/Creatinine Ratio 18.1, Glucose 144 H, Calcium 8.9 Micro: Microbiology 07/08/23 19:03 Sputum, Expectorated/Coughed Gram Stain - Final 07/08/23 20:35 Mucosa - Nasopharyngeal Coronavirus COVID-19 PCR - Final Radiography Diagnostic Testing: Radiology Impression Chest X-Ray 07/08/23 15:50 IMPRESSION: Mild chronic interstitial changes. No acute disease Electronically Signed: Chidi Dillon MD at 16:05 EDT , Physical Exam Const alert and oriented x3 Constitutional Narrative: Pleasant female, sitting comfortably bedside chair, conversing normally, no acute distress. Satting in the low 90s on 3 L nasal cannula, no increased work of breathing noted. General Appearance: cooperative, comfortable and well kempt HEENT normocephalic, head/scalp atraumatic, hearing grossly normal bilaterally, nasal mucous membranes and turbinates normal and moist oral mucous membranes Eyes PERRL, EOMs intact bilaterally and conjunctivae normal Neck full ROM, no lymphadenopathy and supple Lymph Lymphatic: no lymphadenopathy noted Chest inspection of chest normal Resp Resp Narrative: Mildly decreased air movement bilaterally. No wheezing noted in upper airways. No rales or rhonchi noted. Cardio regular rate, regular rhythm, no murmurs and peripheral pulses 2+ throughout GI normal to inspection, nondistended, normoactive bowel sounds, soft to palpation,non-tender and non-distended Back/Spine normal ROM Extremity normal to inspection, full ROM and no pedal edema Skin no rashes or lesions noted Psych mental status grossly normal Assessment & Plan Assessment/Plan (1) COPD exacerbation: (2) Acute respiratory failure with hypoxia: PLAN: Plan Patient is a 67-year-old female with history significant for COPD on nocturnal 3L through CPAP, GERD and anxiety/depression who presented to [facility] on 07/08 with worsening dyspnea. 1. Acute exacerbation of COPD, community-acquired pneumonia Acute exacerbation very likely secondary to pneumonia. Known history of COPD for last 9 to 10 years, follows with pulmonology outpatient. Wears a CPAP at night for sleep apnea and has 3 L run through the CPAP. Last COPD exacerbation was 5 to 6 years ago and patient states that her presentation was similar. Previous smoker, quit smoking about 9 years ago. Started on IV steroids and antibiotics on admission and patient feels significantly improved. Satting in low 90s on 3 L nasal cannula on 07/09 and has had improvement in wheezing and sputum production. Sputum culture with no growth to date. COVID-negative. D-dimer normal for her age. -Continue prednisone 40 mg daily and IV ceftriaxone and azithromycin. Plan for 5-day courses of steroids and antibiotics, stop date 07/12. Continue DuoNebs as needed. Continue home long-acting inhalers. 2. GERD -Stable. Continue home PPI. 3. Anxiety/depression -Stable. Continue home medications. DVT prophylaxis: Lovenox CODE STATUS: DNR CCA, DO NOT INTUBATE. Confirmed with patient on admission. Expected disposition: Home, 1 to 2 days Total clinical time spent by myself addressing the patient's medical issues, reviewing all of the data, and collaborating with patient's care team: 35 minutes. Charges/Coding Visit Charges Inpatient E&M: 89269 Subs Hosp L2 07/09/23 1521 <Electronically signed by Preston Pineda DO> Cosigner Signature (if applicable): CC: ~ Signed [facility] Work Phone: 1(273) 308-172908-14-2023 Discharge summary Author Archie Gamino [facility] July 09, 2023 12:44am Note Date/Time July 08, 2023 3: 24pm [facility] Medical Records Department [address] [place] [address] Emergency Department Summary 07/08/23 MR#: [id number] Acct: [id number] Name: PIPER CLARK Rep #:[id number] : 1955 67 From: Archie Lopez PCP: Dr. Christy Perea MD Status:ADM IN Location: [place] [address]-1 HPI History of Present Illness Chief Complaint: Shortness of Breath Informant: patient Onset/Context/Timing Onset: Days (3) Context: gradual Timing: Continuous Quality: Positive for Dyspnea on exertion Worsened by: Exertion Relieved by: - (Air conditioning) Associated Symptoms cough, post nasal drip and green sputum; Negative for rhinorrhea, ear pain, fever, sore throat, chills or sweats Chest Pain: Positive for Dull Narrative Narrative: Patient presents with shortness of breath that has been getting worse over the past 3 days. Patient states that she was on vacation in [place] when thisbegan. Patient states it is gradually gotten worse. Patient states she drove back from [place]. Patient states her breathing is worse with any exertion. Patient states it is better when she is in air conditioning. Patientadmits to a cough with some green sputum. Patient also admits to some postnasaldrainage. Patient denies any fevers or chills. Patient admits to some dull chest pain in the substernal area. PE Risk Factors: Positive for Recent travel; Negative for Cancer, OCP + Smoking + > 35, Prior DVT or PE, Recent immobilization or Recent surgery [facility] Medical History Arthritis Cellulitis and abscess of face Cellulitis of left forearm Hemorrhoids Knee pain Lung disease SOB (shortness of breath) Home Medications calcium carbonate 500 mg calcium (1,250 mg) tablet 500 mg PO DAILY 09/07/18 [History Last Taken Unknown] fluticasone furoate 200 mcg-vilanterol 25 mcg/dose inhalation powder 2 puff inhalation DAILY 09/07/18 [History Last Taken Unknown] loratadine 10 mg capsule 10 mg PO DAILY 09/07/18 [History Last Taken Unknown] montelukast 10 mg tablet 10 mg PO DAILY 09/07/18 [History Last Taken Unknown] albuterol sulfate 90 mcg/actuation aerosol inhaler 2 puff inhalation Q4H PRN PRNShortness Of Breath 10/20/18 [History Last Taken Unknown] aspirin 81 mg chewable tablet 81 mg PO DAILY 10/20/18 [History Last Taken Unknown] escitalopram oxalate 5 mg tablet 5 mg PO DAILY 10/20/18 [History Last Taken Unknown] fluticasone furoate 100 mcg-vilanterol 25 mcg/dose inhalation powder (Breo Ellipta) 1 inh inhalation DAILY 10/20/18 [History Last Taken Unknown] umeclidinium 62.5 mcg/actuation blister powder for inhalation (Incruse Ellipta) 1 inh inhalation DAILY 10/20/18 [History Last Taken Unknown] pantoprazole 40 mg tablet,delayed release 40 mg PO DAILY 08/10/21 [History Last Taken Unknown] Allergy/AdvReac Type Severity Reaction Status Date / Time house dust Allergy Unknown Verified 07/08/23 15:01 mold Allergy Unknown Verified 07/08/23 15:01 Family History Other Cancer Heart disease Surgical History History of appendectomy Hx of removal of ovary Social History Smoking Status: Former smoker alcohol intake: never ROS ROS ED Constitutional Constitutional ED: Denies chills or fever(s) Eyes Eyes: Denies blurry vision or change in vision ENT ENT ED: Denies rhinorrhea or sore throat Cardiovascular Cardiovascular: Reports chest pain; Denies palpitations Respiratory/Chest Respiratory/Chest: Reports cough and dyspnea Gastrointestinal Gastrointestinal: Denies nausea or vomiting Genitourinary Genitourinary ED: Denies dysuria or hematuria Musculoskeletal Musculoskeletal: Reports back pain and neck pain Integumentary Denies abscess or rash Neurologic Neurologic: Denies headache(s) or weakness Allergic/Immunologic Allergic/Immunologic ED: Denies mouth swelling or urticaria EXAM Physical Exam Const Vital Signs: 07/08/23 15:02 07/08/23 15:05 07/08/23 15:38 Temperature 99.3 F H Temperature Source Temporal Pulse Rate 94 Respiratory Rate 22 H Respiratory Effort Respiratory Depth Respiratory Pattern Blood Pressure 168/67 H Blood Pressure Mean 100 Pulse Ox 83 99 Oxygen Delivery Method Room Air Nasal Cannula Nasal Cannula Oxygen Flow Rate (L/min) 2 07/08/23 15:39 07/08/23 15:44 Temperature Temperature Source Pulse Rate 85 Respiratory Rate 18 Respiratory Effort Short of Breath Respiratory Depth Normal Respiratory Pattern Normal Normal Blood Pressure Blood Pressure Mean Pulse Ox Oxygen Delivery Method Nasal Cannula Oxygen Flow Rate (L/min) 2 Positive well nourished and well developed General Appearance ED: well developed and NAD HEENT Reports moist mucous membranes Neck supple and no JVD Resp normal respiratory effort Auscultation: wheezes throughout Cardio regular rate and regular rhythm GI normal to inspection, nondistended, normoactive bowel sounds and non-tender Palpation: soft Extremity normal to inspection General Extremety ED: Negative for edema or tenderness General Extremity: Negative for edema Neuro oriented x3, CN's II-XII intact bilaterally and no sensory deficits noted Sensorium / Orientation: alert Motor Exam: strength 5/5 throughout Psych mental status grossly normal Skin no rashes or lesions noted MDM MDM MDM Narrative Medical decision making narrative: Differential diagnosis includes pneumonia, bronchitis, pulmonary embolism, pneumothorax, COPD exacerbation, and viral upper respiratory infection. EKG willbe obtained to assess for cardiac dysrhythmia and cardiac ischemia. Chest x-raywill be obtained to assess for pneumonia, pneumothorax, and COPD. CBC will be obtained to assess for leukocytosis and anemia. Basic metabolic profile will beobtained to assess for electrolyte abnormality and renal function. High-sensitivity troponin will be obtained to assess for cardiac ischemia. D-dimer will be obtained to assess for pulmonary embolism. Lab Data Attestation: I reviewed the patient's lab results. Lab results narrative: CBC was reviewed. There is a mild leukocytosis of 14.0. The remainder is essentially within normal limits. Basic metabolic profile was reviewed and was within normal limits. High-sensitivity troponin was reviewed and was normal. D-dimer was reviewed and was 0.63 which is normal for the patient's age. Labs: Laboratory Results - last 24 hr 07/08/23 15:40 WBC 14.0 H RBC 4.52 Hgb 13.1 Hct 42.3 MCV 93.6 MCH 29.0 MCHC 31.0 L RDW Std Deviation 49.2 H RDW Coeff of Beena 14.4 Plt Count 281 MPV 9.7 Immature Gran % (Auto) 0.400 Neut % (Auto) 78.6 H Lymph % (Auto) 10.0 L Gilmer % (Auto) 9.7 Eos % (Auto) 1.0 Baso % (Auto) 0.3 Absolute Neuts (auto) 11.0 H Absolute Lymphs (auto) 1.40 Nucleated RBC % 0 D-Dimer Quant (PE/DVT) 0.63 H* Sodium 138 Potassium 3.9 Chloride 100 Carbon Dioxide 34.0 H Anion Gap 4 L BUN 11 Creatinine 0.69 Est GFR (MDRD) Af Amer 108 Est GFR (MDRD) Non-Af 90 BUN/Creatinine Ratio 16.0 Glucose 110 H Calcium 8.9 Troponin I High Sens 24 Radiography Chest X-Ray - ED: 2 View, Read by ED Physician, Read by Radiologist and Chronic Changes Diagnostic Testing: Clinical Impression(s) from Imaging Studies Chest X-Ray 07/08/23 15:50 IMPRESSION: Mild chronic interstitial changes. No acute disease Electronically Signed: Chidi Dillon MD at 16:05 EDT , PA and lateral chest x-ray was obtained. There are 2 views. On my independent interpretation, lung samaniego show chronic changes. There is normal cardiac silhouette. Bony thorax is normal. There is no acute process noted. Radiologist also interpreted the x-ray and agrees. EKG Initial EKG: Attestation: I personally reviewed and interpreted this EKG as follows: Interpretation: Sinus Rhythm (90) and No Acute Injury Pattern Comments: EKG was obtained. On my independent interpretation, it showed anormal sinus rhythm with a rate of 90. WI interval, QRS interval, and QTc intervals were all normal. [place] was normal. There are no acute ST or T wave changes. Prior EKG tracings: not available for review Prior: No Prior Management Discussion w/another healthcare provider: Hospitalist Treatment and Re-Evaluation :: Patient was given a DuoNeb aerosol here. Patient's wheezing was improved on reevaluation. Since the patient was hypoxic on room air upon arrival and she does not normally wear oxygen, I recommended admission to the hospital. Patientis agreeable with this. I will discuss case with the hospitalist. He will admit the patient to the medical surgical unit. He recommended obtaining a sputum culture. Patient will be started on Rocephin and Zithromax. Patient andfamily understood and were agreeable with the plan. All questions were answered. Discharge Plan Triage Chief Complaint: Shortness of Breath ED Provider: Archie Gamino Dx/Rx/DC Orders Clinical Impression: Hypoxia, COPD exacerbation Prescriptions: No Action Breo Ellipta 100-25 mcg/dose blister with device 1 inh INHALATION DAILY Incruse Ellipta 62.5 mcg/actuation blister with device 1 inh INHALATION DAILY escitalopram oxalate 5 mg tablet 5 mg PO DAILY aspirin 81 mg tablet,chewable 81 mg PO DAILY calcium carbonate 500 MG tablet 500 mg PO DAILY montelukast 10 MG tablet 10 mg PO DAILY loratadine 10 MG capsule 10 mg PO DAILY fluticasone furoate-vilanterol 200-25 blister with device 2 puff Inhalation DAILY albuterol sulfate 90 mcg/actuation HFA aerosol inhaler 2 puff Inhalation Q4H PRN PRN (Reason: Shortness Of Breath) pantoprazole 40 mg tablet,delayed release (DR/EC) 40 mg PO DAILY Patient Comments: TAKE ONE TABLET TWICE DAILY BEFORE MORNING AND EVENING MEALS Primary Care Provider: Christy Perea Referrals: Christy Perea MD [Primary Care Provider] - Disposition Disposition: Acute Care Hospital [facility] What to do if you have Problems For any increased pain, shortness of breath, bleeding, nausea or vomiting, chestpain, or any unexpected problems, contact your Primary Care Provider. Call [facility] ([phone]) or report to the closest Emergency Room. Call 911 if necessary. 07/09/23 0044 <Electronically signed by Archie Gamino DO> Cosigner Signature (if applicable): CC: Dr. Christy Perea MD ~ Signed [facility] Work Phone: 1(890) 693-804608-13-2023 History and physical note Author Geoff Galvan [facility] July 08, 2023 8:15pm Note Date/Time July 08, 2023 5: 20pm [facility] Medical Records Department [address] [place] [address] H&P Exam - Hospitalist 07/08/23 1716 MR#: [id number] Acct: [id number] Name: BENITOPIPER L Rep #:[id number] : 1955 67 From: Geoff mora MD PCP: Dr. Christy Perea MD Status:ADM IN [facility] - General General Date of Admission: 07/08/23 HPI Narrative PIPER CLARK, is a 67 F who presents to the hospital with shortness of breath. This started 4 to 5 days ago while she was in [place] for family reunion. She has been noticing a slow increase in her shortness of breath and yesterday when she arrived home she found it difficult to walk from the car to the house. D-dimer was obtained in the ER which was normal for her age. She denies any fevers or chills but has noticed productive cough with thick green sputum, and in the ER she was found to have white blood cell count of 14 withoutbeing on any steroids. Chest x-ray was unremarkable. He does have a history ofCOPD and when she arrived to the ER she was 83% on room air. She only wears oxygen at night through her CPAP. [facility] Medical History (Updated 07/08/23 @ 19:53 by Maite De La Fuente) Arthritis Cellulitis and abscess of face Cellulitis of left forearm Depression Hemorrhoids Knee pain Lung disease Migraines Smoker SOB (shortness of breath) Home Medications calcium carbonate 500 mg calcium (1,250 mg) tablet 500 mg PO DAILY calcium 09/07/18 [History Last Taken 07/08/23 13:00] fluticasone furoate 200 mcg-vilanterol 25 mcg/dose inhalation powder 2 puff inhalation DAILY SOB 09/07/18 [History Last Taken Unknown] montelukast 10 mg tablet 10 mg PO QHS allergies 09/07/18 [History Last Taken Unknown] albuterol sulfate 90 mcg/actuation aerosol inhaler 2 puff inhalation Q4H PRN PRNShortness Of Breath 10/20/18 [History Last Taken Unknown] aspirin 81 mg chewable tablet 81 mg PO DAILY antiplatelet 10/20/18 [History Last Taken 07/07/23 21:30] escitalopram oxalate 5 mg tablet 10 mg PO QHS anxiety 10/20/18 [History Last Taken 07/07/23 21:30] pantoprazole 40 mg tablet,delayed release 40 mg PO DAILY GERD 08/10/21 [History Last Taken Unknown] cetirizine 10 mg tablet (24Hour Allergy) 10 mg PO QHS allergies 07/08/23 [History Last Taken 07/07/23 21:30] fluticasone fur. 200 mcg-umeclid 62.5 mcg-vilant 25 mcg inhalat.powder (Trelegy Ellipta) 1 inh inhalation DAILY SOB 07/08/23 [History Last Taken 07/08/23] fluticasone propionate 50 mcg/actuation nasal spray,suspension 2 spray intranasal QHS nasal dryness 07/08/23 [History Last Taken Unknown] rimegepant 75 mg disintegrating tablet (Nurtec ODT) 75 mg PO DAILY PRN migraine 07/08/23 [History Last Taken Unknown] Allergy/AdvReac Type Severity Reaction Status Date / Time house dust Allergy Unknown Verified 07/08/23 19:55 mold Allergy Unknown Verified 07/08/23 19:55 Family History Other Cancer Heart disease Surgical History History of appendectomy Hx of removal of ovary Social History Smoking Status: Former smoker alcohol intake: never ROS Constitutional Constitutional: Denies chills, fatigue, fever(s) or malaise Eyes Eyes: Denies blurry vision ENT HEENT: Denies headache(s) or nasal discharge Cardiovascular Cardiovascular: Denies chest pain, dyspnea on exertion or syncope Respiratory/Chest Respiratory/Chest: Reports cough, productive cough, shortness of breath at rest and shortness of breath with exertion Gastrointestinal Gastrointestinal: Denies constipation, diarrhea, nausea or vomiting Genitourinary Genitourinary: Denies dysuria Neurologic Neurologic: Denies focal weakness, numbness or tremor(s) Psychiatric Psychiatric: Denies anxiety or depression Vital Signs Vital Signs Vital Signs: 07/08/23 15:02 07/08/23 15:05 07/08/23 15:38 Temperature 99.3 F H Temperature Source Temporal Pulse Rate 94 Respiratory Rate 22 H Respiratory Effort Respiratory Depth Respiratory Pattern Blood Pressure 168/67 H Blood Pressure Mean 100 Pulse Ox 83 99 Oxygen Delivery Method Room Air Nasal Cannula Nasal Cannula Oxygen Flow Rate (L/min) 2 07/08/23 15:39 07/08/23 15:44 07/08/23 17:10 Temperature Temperature Source Pulse Rate 85 91 Respiratory Rate 18 18 Respiratory Effort Short of Breath Respiratory Depth Normal Respiratory Pattern Normal Normal Blood Pressure 159/72 H Blood Pressure Mean 101 Pulse Ox 94 Oxygen Delivery Method Nasal Cannula Oxygen Flow Rate (L/min) 2 Physical Exam Narrative General: Alert, Oriented x3, Cooperative, mild to moderate respiratory distress HEENT: Atraumatic, PERRLA, EOMI, Normocephalic Oral: Moist Mucosa Neck: Supple, No JVD Lungs: Diminished, Normal air movement, No rhonchi, wheeze, No rales, tachypnea,retractions Cardiovascular: Tachycardic, Regular Rhythm, Normal S1, Normal S2, No murmurs Abdomen: Soft, Non Tender, Non-Distended, No Hepato-splenomegaly Extremities: No edema, Capillary Refill Less than 3 Seconds Skin: No rashes, No breakdown Musculoskeletal: No Tenderness to Palpation of Joints or Extremities Neurological: Cranial nerves II-XII grossly intact, Motor Exam 5/5 strength throughout, Sensory exam intact to light touch and pain Psych/Mental Status: Normal Affect, Appropriate Results Lab / Micro Data 07/08/23 15:40 07/08/23 15:40 Labs: Laboratory Results - last 24 hr 07/08/23 15:40: WBC 14.0 H, RBC 4.52, Hgb 13.1, Hct 42.3, MCV 93.6, MCH 29.0, MCHC 31.0 L, RDW Std Deviation 49.2 H, RDW Coeff of Beena 14.4, Plt Count 281, MPV9.7, Immature Gran % (Auto) 0.400, Neut % (Auto) 78.6 H, Lymph % (Auto) 10.0 L, Gilmer % (Auto) 9.7, Eos % (Auto) 1.0, Baso % (Auto) 0.3, Absolute Neuts (auto) 11.0 H, Absolute Lymphs (auto) 1.40, Nucleated RBC % 0, D-Dimer Quant (PE/DVT) 0.63 H*, Sodium 138, Potassium 3.9, Chloride 100, Carbon Dioxide 34.0 H, Anion Gap 4 L, BUN 11, Creatinine 0.69, Est GFR (MDRD) Af Amer 108, Est GFR (MDRD) Non-Af 90, BUN/Creatinine Ratio 16.0, Glucose 110 H, Calcium 8.9, Troponin I High Sens 24 Radiology Impression Chest X-Ray 07/08/23 15:50 IMPRESSION: Mild chronic interstitial changes. No acute disease Electronically Signed: Chidi Dillon MD at 16:05 EDT , Assessment & Plan Assessment/Plan (1) COPD exacerbation: (2) Acute respiratory failure with hypoxia: PLAN: Plan 1. Acute hypoxic respiratory failure secondary to COPD exacerbation with possible pneumonia ? We will obtain a sputum culture to verify pneumonia in the meantime we will continue with empiric antibiotics ? Continue with steroids ? Continue with DuoNebs ? She is normally on room air during the day with oxygen bleed in through her CPAP at night and she was 83% with retractions and tachypnea ? D-dimer was normal for age ? Continue with incentive spirometry 2. GERD ? Stable ? Continue with PPI 3. Anxiety/depression ? Stable ? Continue with her home medications DVT: Lovenox 77 minutes was spent on direct patient care, including documentation as well as chart review and collaboration with colleagues 07/08/232014 <Electronically signed by Geoff Galvan MD> Cosigner Signature (if applicable): CC: Dr. Christy Perea MD; Dr. Geoff Galvan MD~ Signed [facility] Work Phone: [phone]) 345-968408-25-2022 Miscellaneous Notes* Telephone Encounter - Stephany Lind - 07/20/2022 2:48 PM EDT RHC Information The patient wants to know why her PVR, 2.62 Wood Units, did not qualify her for PH medications? Per Dr. Newell, the PVR needs to be > 3 Wood Units for the patient to qualify in the future. The patient will contact is if she has any further questions. Bhavik ZAMORANO, RN PH & HHT 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 Respiratory [place] [facility] documented in this encounterChillicothe [facility] Center08-24-2022 NoteHNO ID: [id number] Author: Lorne Newell MD Service: ? Author Type: Physician Type: Progress Notes Filed: 07/19/2022 4:33 PM Note Text: Patient Name: Piper Clark Patient Date of Procedure: July 19, [...] Procedure end time: 16:40 Staff involved: Lorne Newell MD Nurse(s): Ga Ruvalcaba RN and Kunal Paul. Procedure(s): Right Heart Catheterization. Right Heart Catheterization Indications: PH related to COPD/hypoxemia. 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 Access site: Right internal jugular vein [place] Evelia size: 7.5 F. Anesthesia: Lidocaine 1% Procedure Narrative: Consent was obtained. Time out taken. Performed at procedure room in 1. Under sterile condition, lidocaine 1 % (5 ml) was applied and under US guidance a 8.5 F introducer was inserted without difficulty. Wire was noted to be located in the SVC under fluoroscopy. A [place]-Evelia catheter was advanced to the right pulmonary [...] Weight loss. BP control. Authenticated by Lorne Newell MD on July 19, 2022 at 4:01 PM.[facility]08-24-2022 History of Present illness Narrative* Lorne Newell MD - 07/19/2022 4:01 PM EDT Images from the original note were not included. Patient Name: Piper Clark Patient Date of Procedure: July 19, [...] Procedure end time: 16:40 Staff involved: Lorne Newell MD Nurse(s): Ga Ruvalcaba RN and Kunla Paul. Procedure(s): Right Heart Catheterization. Right Heart Catheterization Indications: PH related to COPD/hypoxemia. 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 Access site: Right internal jugular vein [place] Evelia size: 7.5 F. Anesthesia: Lidocaine 1% Procedure Narrative: Consent was obtained. Time out taken. Performed at procedure room in G61. Under sterile condition, lidocaine 1 % (5 ml) was applied and under US guidance a 8.5 F introducer was inserted without difficulty. Wire was noted to be located in the SVC under fluoroscopy. A [place]-Evelia catheter was advanced to the right pulmonary [...] Weight loss. BP control. Authenticated by Lorne Newell MD on July 19, 2022 at 4:01 PM. documented in this encounterChillicothe [facility] Center08-16-2022 Miscellaneous Notes* Telephone Encounter - Orlando Simpson MA - 07/11/2022 10:22 AM EDTSummary: Appointment Confirmation Called patient to confirm her RHC with Dr. Newell on 07/19 at 4pm. No answer, left VM. Orlando Simpson Clinical Safety Intern [facility] Respiratory [place] documented in this encounterChillicothe [facility] Center08-05-2022 NoteHNO ID: [id number] Author: Lorne Newell MD Service: ? Author Type: Physician Type: Progress Notes Filed: 06/30/2022 4:11 PM Note Text: VIRTUAL VISIT PROGRESS NOTE This is a virtual visit using [employer] video visit. It required patient-provider interaction for the medical decision making as documented below. Chief complaint: This patient is seen in consultation at the request of Mitchell Brian MD for opinion or advice on PH. History of present illness: As you recall, Piper Clark is a 66 yo woman with severe COPD, WINIFRED, GERD, Hiatal Hernia. SOB with exertion. Echo performed March 2022 showed preserved EF 55-60% with no diastolic dysfunction. PA systolic is estimated at 50. 6MW distance results 633 feet requiring 3L O2 with oxygen desaturation at night 86%. Lives in [place] (1.5 hours from the clinic). No chest [...] which included preparing to see the patient, [id number] patient care, completing clinical documentation, obtaining and/or reviewing separately obtained history and ordering medications, tests, or procedures I will report my final recommendations back to the requesting physician by way of shared medical record or letter via US mail. Lorne Newell MD (more content not included)...[facility] 06-30-2022 History of Present illness Narrative* Lorne Newell MD - 06/30/2022 4:00 PM EDT Images from the original note were not included. VIRTUAL VISIT PROGRESS NOTE This is a virtual visit using [employer] video visit. It required patient-provider interaction for themedical decision making as documented below. Chief complaint: This patient is seen in consultation at the request of Mitchell Brian MD for opinion or advice on PH. History of present illness: As you recall, Piper Clark is a 66 yo woman with severe COPD, WINIFRED, GERD, Hiatal Hernia. SOB with exertion. Echo performed March 2022 showed preserved EF 55-60% with no diastolic dysfunction. PA systolic is estimated at 50. 6MW distance results 633 feet requiring 3L O2 with oxygen desaturation at night 86%. Lives in [place] (1.5 hours from the clinic). No chest [...] which included preparing to see the patient, [id number] patient care, completing clinical documentation, obtaining and/or reviewing separately obtained history and ordering medications, tests, or procedures I will report my final recommendations back to the requesting physician by way of shared medical record or letter via US mail. Lorne Newell MD June 30, 2022 documented in this encounterChillicothe Va [facility] Center08-02-2022 NoteHNO ID: [id number] Author: Naa Croft APRN.CNP Service: ? Author Type: Nurse Practitioner Type: [...] order VQ Scan and RHC. Naa Croft APRN.CNPCleveland Clinic [facility]08-02-2022 History of Present illness Narrative* Naa Croft APRN.CNP - 06/27/2022 11:55 AM EDT Images from the original note were not included. Patient referred by Mitchell Brian MD We have received the following records: Brief HPI: PMH- COPD, WINIFRED, GERD, Hiatal Hernia, PLMS. SOB with exertion. Echo performed March 2022 showed preserved EF 55-60% with no diastolic dysfunction. PA systolic is estimated at 50. 6MW distanceresults 633 feet requiring 3L O2 with oxygen [...] VQ Scan and RHC. Naa Croft APRN.CNP documented in [place] encounterJeffrey [place] [address]-11-2022 Miscellaneous Notes* Telephone Encounter - Orlando Simpson MA - 06/05/2022 10:50 AM EDTSummary: Care Coordination Called patient to schedule her RHC with Dr. Newell on 07/19/2022 at 4pm. NPO 4 hours pre-procedure. Anticoagulation: None at this time Must have a escort car driver for transportation post procedure. May take other medications as prescribed prior to procedure. Check in at desk G-11 at 3:30pm Orlando Simpson Clinical Safety Intern [facility] documented in this encounterChillicothe [facility] Center07-08-2022 Miscellaneous Notes* Telephone Encounter - Orlando Simpson MA - 06/02/2022 9:35 AM EDTSummary: Care Coordination Called patient to schedule her RHC with Dr. Newell. No answer, left VM. Orlando Simpson Clinical Safety Intern [facility] documented in this encounterChillicothe Va [facility] Center06-23-2022 Miscellaneous Notes* Telephone Encounter - Devonte Navas - 05/18/2022 1:[address] Mitchell Brian contacted Mic Webber MD for a RHC. Dr. Webber does not perform RHC's and has deferred to Dr. Newell. I am requesting recent office notes from office: [phone] documented in this encounterChillicothe Va Medical CenterConsult note Author Lesly King [facility] July 10, 2023 1:41pm Note Date/Time July 10, 2023 1: 41pm [facility] Medical Records Department [address] [place] [address] Counseling Note - Pharmacy 07/10/23 1340 MR#: [id number] Acct: [id number] Name: PIPER CLARK Rep #:[id number] : 1955 67 From: Lesly King PCP: Dr. Christy Perea MD Status:ADM IN Y Location: [place] [id number] Pharmacy [facility] Service has performed discharge medication reconciliation and counseling for this patient. 1. AZITHROMYCIN 500MG PO DAILY X 3 DAYS 2. PREDNISONE 40MG PO BREAKFAST X 3 DAYS The patient's discharge medication list was reviewed for discrepancies and discrepancies were resolved. The patient was counseled on the following discharge medications and changes in medications for homegoing were reviewed. The Reason for Use, instructions for use, and potential side effects were reviewed for all new medications. The patient's questions regarding all of their medications were answered. The patient was able to verbally demonstrate an understanding of their dischargemedications. Patient counseled by testing and regulating chiefAna. Medications at Discharge Home Medications calcium carbonate 500 mg calcium (1,250 mg) tablet 500 mg PO DAILY calcium 09/07/18 montelukast 10 mg tablet 10 mg PO QHS allergies 09/07/18 albuterol sulfate 90 mcg/actuation aerosol inhaler 2 puff inhalation Q4H PRN PRNShortness Of Breath 10/20/18 aspirin 81 mg chewable tablet 81 mg PO DAILY antiplatelet 10/20/18 escitalopram oxalate 5 mg tablet 10 mg PO QHS anxiety 10/20/18 pantoprazole 40 mg tablet,delayed release 40 mg PO DAILY GERD 08/10/21 cetirizine 10 mg tablet (24Hour Allergy) 10 mg PO QHS allergies 07/08/23 fluticasone fur. 200 mcg-umeclid 62.5 mcg-vilant 25 mcg inhalat.powder (Trelegy Ellipta) 1 inh inhalation DAILY SOB 07/08/23 fluticasone propionate 50 mcg/actuation nasal spray,suspension 2 spray intranasal QHS nasal dryness 07/08/23 rimegepant 75 mg disintegrating tablet (Nurtec ODT) 75 mg PO DAILY PRN migraine 07/08/23 azithromycin 500 mg tablet 500 mg PO DAILY 3 days #3 tabs 07/10/23 prednisone 20 mg tablet 40 mg (2 x 20 mg) PO BREAKFAST 3 days #6 tabs 07/10/23 07/10/23 1341 <Electronically signed by Lesly King> Date _ Lesly Vick Signature (if applicable): Date CC: ~ Signed [facility] Work Phone: Consult note Author Lesly King [facility] Note Date/Time March 24, 2025 3:4 0pm [facility] Medical Records Department [address] [place] [address] Counseling Note - Pharmacy 03/24/25 1515 MR#: [id number] Acct: [id number] Name: PIPER CLARK Rep #:[id number] : 1955 69 From: Lesly King PCP: Dr. Genia Chappell MD Status:ADM IN [facility] Service has performed discharge medication reconciliation and counseling for this patient. 1. Prednisone 40mg PO daily x 5 days The patient's discharge medication list was reviewed for discrepancies and discrepancies were resolved. The patient was counseled on the following discharge medications and changes in medications for homegoing were reviewed. The Reason for Use, instructions for use, and potential side effects were reviewed for all new medications. The patient's questions regarding all of their medications were answered. The patient was able to verbally demonstrate an understanding of their dischargemedications. Medications at Discharge Home Medications montelukast 10 mg tablet 10 mg PO QHS allergies 09/07/18 fluticasone fur. 200 mcg-umeclid 62.5 mcg-vilant 25 mcg inhalat.powder (Trelegy Ellipta) 1 inh inhalation DAILY SOB 07/08/23 rimegepant 75 mg disintegrating tablet (Nurtec ODT) 75 mg PO DAILY PRN migraine 07/08/23 albuterol sulfate 90 mcg/actuation aerosol inhaler 2 puff inhalation Q4H PRN Shortness Of Breath 02/13/24 diltiazem HCl 240 mg capsule,24 hr,extended release (Tiadylt ER) 240 mg PO QDAY 02/19/24 potassium chloride 20 mEq tablet,extended release 20 meq PO DAILY #90 tabs 05/07/24 duloxetine 60 mg capsule,delayed release 60 mg PO QDAY 09/30/24 metoprolol tartrate 50 mg tablet 50 mg PO BID #180 tabs 10/09/24 apixaban 5 mg tablet (Eliquis) 5 mg PO BID #60 tabs 02/16/25 cetirizine 10 mg tablet (24Hour Allergy) 10 mg PO DAILY allergy 03/19/25 fluticasone propionate 50 mcg/actuation nasal spray,suspension (24 Hour Allergy Relief) 2 spray intranasal DAILY 03/19/25 furosemide 40 mg tablet 40 mg PO Q12H 03/19/25 prednisone 20 mg tablet 40 mg (2 x 20 mg) PO DAILY #10 tabs 03/24/25 03/24/25 1345 <Electronically signed by Lesly King> Date _ Lesly King Cosigner Signature (if applicable): Date CC: ~ Signed [facility] Work Phone: Discharge summary [facility] July 10, 2023 12:55pm Note Date/Time July 10, 2023 12 :49pm [facility] Medical Records Department [address] [place] [address] Instructions for Home/Discharge Instructions 07/10/23 1247 MR#: [id number] Acct: [id number] Name: BENITOPIPER Rep #:[id number] : 1955 67 From: Preston desai DO PCP: Dr. Christy Perea MD Status:ADM IN Discharge Instructions Diet Discharge Diet: No restrictions Activity Discharge Activity: Return to Normal Activity Weight Bearing Status: Full weight bearing Follow Up Care Please Follow Up With: Christy Perea MD When: 1-2 weeks Test Results: Test results from this visit will be discussed in further detail at your follow- up appointment, if applicable. Pending Tests Upon Discharge: none Discharge Plan Admission Admit Date/Time: 07/08/23 17:12 Primary Reason for Your Visit: Acute exacerbation of COPD Attending Provider: Preston Pineda Primary Care Provider: Christy Perea Consulting Providers: Geoff Galvan Instructions Additional Instructions / Restrictions: Please complete 5-day courses of both azithromycin and prednisone. Use your pulse oximeter to check your oxygen saturation 3-4 times daily. Your goal oxygen saturation number is 88 to 94%. If it is below 88%, use supplemental oxygen as needed. Follow-up with your PCP as needed, and follow-up with your kettle hand in the next 4 to 6 weeks. Discharge Orders/Prescriptions Prescriptions: New prednisone 20 mg Tablet 40 mg PO BREAKFAST 3 Days Qty: 6 0RF azithromycin 500 mg tablet 500 mg PO DAILY 3 Days Qty: 3 0RF Continued escitalopram oxalate 5 mg tablet 10 mg PO QHS aspirin 81 mg tablet,chewable 81 mg PO DAILY calcium carbonate 500 MG tablet 500 mg PO DAILY montelukast 10 MG tablet 10 mg PO QHS albuterol sulfate 90 mcg/actuation HFA aerosol inhaler 2 puff Inhalation Q4H PRN PRN (Reason: Shortness Of Breath) pantoprazole 40 mg tablet,delayed release (DR/EC) 40 mg PO DAILY Patient Comments: TAKE ONE TABLET TWICE DAILY BEFORE MORNING AND EVENING MEALS Nurtec ODT 75 mg tablet,disintegrating 75 mg PO DAILY PRN (Reason: migraine) Patient Comments: TAKE 1 (ONE) TABLET BY MOUTH DAILY IF NEEDED FOR MIGRAINE cetirizine [24Hour Allergy] 10 mg tablet 10 mg PO QHS Trelegy Ellipta 200-62.5-25 mcg blister with device 1 inh inhalation DAILY fluticasone propionate 50 mcg/actuation spray,suspension 2 spray INTRANASAL QHS Discontinued fluticasone furoate-vilanterol 200-25 blister with device 2 puff Inhalation DAILY Referrals / Follow Up: Christy Perea MD [Primary Care Provider] - Disposition Disposition (needs filled in before D/C Order can be placed): Home, Self Care 07/10/23 1255<Electronically signed by Preston Pineda DO>Preston Pineda DO CC: Dr. Christy Perea MD; Dr. Geoff Galvan MD ~ Signed [facility] Work Phone: Evaluation note* Diagnosis Onset Date Resolution Status Acute sinusitis acute [facility] Work Phone: Evaluation note* Diagnosis Other secondary pulmonary hypertension (HCC) documented in this encounter [facility] note* Diagnosis Stage 3 severe COPD by GOLD classification (HCC) Abnormal echocardiogram Nonspecific (abnormal) findings on radiological and other examination of other intrathoracic organs documented in this encounter [facility] note* Diagnosis Stage 3 severe COPD by GOLD classification (HCC)- Primary documented in this encounter [facility] note* Diagnosis Pulmonary hypertension (HCC)- Primary Other chronic pulmonary heart diseases documented in this encounter [facility] noteNo assessment information availableWooMercy Health [facility] Work Phone: Evaluation note* Diagnosis Onset Date Resolution Status Acute respiratory failure with hypoxia acute Hypoxia acute COPD exacerbation chronic [facility] Work Phone: Evaluation note* Diagnosis Onset Date Resolution Status Acute respiratory failure with hypoxia acute COPD exacerbation chronic Hypoxia resolved [facility] Work Phone: Evaluation note* Diagnosis Onset Date Resolution Status Atrial fibrillation chronic Chronic airway obstruction c hronic Hypertension chronic Morbid obesity chronic Sleep apnea chronic [facility] Work Phone: Reason for referral (narrative)* Diagnostic Procedure Only (Routine) - Pending Review Specialty Diagnoses / Procedures Referred By Rene nugent Referred To Contact MOLECULAR & FUNCTIONAL IMAGING Diagnoses Other secondary pulmonary hypertension (HCC) Procedures NM LUNG VENT / PERF VQ PULMONARY VENTILATION & PERFUSION IMAGING Rachel Seaman APRN.[facility] [address] [place] [address] Molecular & Functional Imaging [address] [place] [address] Referral ID Status Reason Start Date Expiration Date Visits Requested Visits Authorized [id number] Pending Review Auto-Generat ed Referral 05/19/2022 06/18/2023 1 1 [facility] (narrative)No reason for referral information availableWKindred Healthcare Work Phone: Chief Complaint and Reason for Visit Chief Complaint DYSPNEA SINUS INFECTION Reason for Visit Acute sinusitis Chief Complaint POST AKASH, SCREENING Chief Complaint COPD EXACERBATION COPD EXACERBATION COPD EXACERBATION Reason for Visit Acute respiratory fa ilure with hypoxia Hypoxia COPD exacerbation Chief Complaint COPD EXACERBATION COPD EXACERBATION COPD EXACERBATION COPD EXACERBATION NICOTINE DEPENDENCE Reason for Visit Acute respiratory fa ilure with hypoxia COPD exacerbation Hypoxia Chief Complaint NICOTINE DEPENDENCE SCREENING Chronic Obsructive Pulmonary Disease J44.9 Chief Complaint NICOTINE DEPENDENCE SCREENING Chronic Obsructive Pulmonary Disease J44.9 Chronic Obstructive Pulmonary Disease (COPD) J44.9 Chief Complaint SCREENING Chronic Obsructive Pulmonary Disease J44.9 Chronic Obsructive Pulmonary Disease J44.9 Chronic Obstructive Pulmonary Disease (COPD) J44.9 tachycardia Chronic Obstructive Pulmonary Disease (COPD) J44.9 Chief Complaint Chronic Obsructive P ulmonary Disease J44.9 Chronic Obsructive Pulmonary Disease J44.9 Chronic Obstructive Pulmonary Disease (COPD) J44.9 tachycardia Chronic Obstructive Pulmonary Disease (COPD) J44.9 TACHYCARDIA ([facility]) COPD Reason for Visit Atrial fibrillation Chronic airway obstruction Hypertension Morbid obesity Sleep apnea Chief Complaint Chronic Obstructive Pulmonary Disease (COPD) J44.9 tachycardia Chronic Obstructive Pulmonary Disease (COPD) J44.9 TACHYCARDIA ([facility]) COPD AZAR AZAR COPD Reason for Visit Atrial fibrillation Chronic airway obstruction Hypertension Morbid obesity Sleep apnea Chief Complaint Chronic Obstructive Pulmonary Disease (COPD) J44.9 tachycardia Chronic Obstructive Pulmonary Disease (COPD) J44.9 TACHYCARDIA ([facility]) COPD AZAR AZAR COPD E ORDERS ABN STRESS SOB Reason for Visit Atrial fibrillation Chronic airway obstruction Hypertension Morbid obesity Sleep apnea Chief Complaint Admit Date 1 M FU October 28, 2024 2 :14pm L SHOULDER FX RX HERE November 05 2:00pm LEFT SHOULDER December 04, 2024 1: 43pm room 3 December 04, 2024 1: 55pm Reason for Visit Admit Date Atrial fibrillation October 28, 2024 2 :14pm Chronic airway obstruction October 28, 2024 2:14pm Coronary artery disease October 28 2:14pm Hypertension October 28, 2024 2 :14pm Morbid obesity October 28, 2024 2 :14pm Sleep apnea October 28, 2024 2 :14pm Fracture of left shoulder December 04, 2 025 1:43pm Chief Complaint Admit Date LEFT SHOULDER December 04, 2024 1: 43pm room 3 December 04, 2024 1: 55pm AE COPD AE CHF AND RESPIRATORY INSUFFICI ENCY March 19, 2025 10:05pm AE COPD AE CHF AND RESPIRATORY INSUFFICI ENCY March 20, 2025 7:27pm AE COPD AE CHF AND RESPIRATORY INSUFFICI ENCY March 21, 2025 12:00pm AE COPD AE CHF AND RESPIRATORY INSUFFICI ENCY March 22, 2025 5:40pm AE COPD AE CHF AND RESPIRATORY INSUFFICI ENCY March 23, 2025 1:51pm AE COPD AE CHF AND RESPIRATORY INSUFFICI ENCY March 24, 2025 12:42pm Reason for Visit Admit Date Fracture of left shoulder December 04 025 1:43pm Acute dyspnea March 19, 2025 10: 05pm Atrial fibrillation March 19, 2025 10: 05pm CHF (congestive heart failure) February 10:05pm Chronic anticoagulation March 19, 2025 10:05pm Edema of both legs March 19, 2025 10: 05pm Elevated troponin March 19, 2025 10: 05pm Morbid obesity with BMI of 45.0-49.9, ad ult March 19, 2025 10:05pm Respiratory insufficiency March 19 10:05pm COPD exacerbation March 19, 2025 10: 05pm Coronary artery disease March 19, 2025 10:05pm Chief Complaint Admit Date LEFT SHOULDER December 04, 2024 1: 43pm room 3 December 04, 2024 1: 55pm AE COPD AE CHF AND RESPIRATORY INSUFFICI ENCY March 19, 2025 10:05pm AE COPD AE CHF AND RESPIRATORY INSUFFICI ENCY March 20, 2025 7:27pm AE COPD AE CHF AND RESPIRATORY INSUFFICI ENCY March 21, 2025 12:00pm AE COPD AE CHF AND RESPIRATORY INSUFFICI ENCY March 22, 2025 5:40pm AE COPD AE CHF AND RESPIRATORY INSUFFICI ENCY March 23, 2025 1:51pm AE COPD AE CHF AND RESPIRATORY INSUFFICI ENCY March 24, 2025 12:42pm SOB March 25, 2025 11: 38am XRAY E-ORDER CHEST PA & LAT March 30 1:07pm Reason for Visit Admit Date Fracture of left shoulder December 04 1:43pm Respiratory insufficiency March 19 10:05pm Acute dyspnea March 19, 2025 10: 05pm Atrial fibrillation March 19, 2025 10: 05pm CHF (congestive heart failure) February 10:05pm Chronic anticoagulation March 19, 2025 10:05pm COPD exacerbation March 19, 2025 10: 05pm Coronary artery disease March 19, 2025 10:05pm Edema of both legs March 19, 2025 10: 05pm Elevated troponin March 19, 2025 10: 05pm Morbid obesity with BMI of 45.0-49.9, ad ult March 19, 2025 10:05pm Chief Complaint Admit Date AE COPD AE CHF AND RESPIRATORY INSUFFICI ENCY March 19, 2025 10:05pm AE COPD AE CHF AND RESPIRATORY INSUFFICI ENCY March 20, 2025 7:27pm AE COPD AE CHF AND RESPIRATORY INSUFFICI ENCY March 21, 2025 12:00pm AE COPD AE CHF AND RESPIRATORY INSUFFICI ENCY March 22, 2025 5:40pm AE COPD AE CHF AND RESPIRATORY INSUFFICI ENCY March 23, 2025 1:51pm AE COPD AE CHF AND RESPIRATORY INSUFFICI ENCY March 24, 2025 12:42pm SOB March 25, 2025 11: 38am XRAY E-ORDER CHEST PA & LAT March 30 1:07pm INT LAB ORDER April 03, 2025 2:32pm Reason for Visit Admit Date Respiratory insufficiency March 19 10:05pm Acute dyspnea March 19, 2025 10: 05pm Atrial fibrillation March 19, 2025 10: 05pm CHF (congestive heart failure) February 10:05pm Chronic anticoagulation March 19, 2025 10:05pm COPD exacerbation March 19, 2025 10: 05pm Coronary artery disease March 19, 2025 10:05pm Edema of both legs March 19, 2025 10: 05pm Elevated troponin March 19, 2025 10: 05pm Morbid obesity with BMI of 45.0-49.9, ad ult March 19, 2025 10:05pm Chief Complaint Admit Date AE COPD AE CHF AND RESPIRATORY INSUFFICI ENCY March 19, 2025 10:05pm AE COPD AE CHF AND RESPIRATORY INSUFFICI ENCY March 20, 2025 7:27pm AE COPD AE CHF AND RESPIRATORY INSUFFICI ENCY March 21, 2025 12:00pm AE COPD AE CHF AND RESPIRATORY INSUFFICI ENCY March 22, 2025 5:40pm AE COPD AE CHF AND RESPIRATORY INSUFFICI ENCY March 23, 2025 1:51pm AE COPD AE CHF AND RESPIRATORY INSUFFICI ENCY March 24, 2025 12:42pm SOB March 25, 2025 11: 38am XRAY E-ORDER CHEST PA & LAT March 30 1:07pm INT LAB ORDER April 03, 2025 2:32pm COPD April 05, 2025 11:12 pm Reason for Visit Admit Date Morbid obesity with BMI of 45.0-49.9, ad ult March 19, 2025 10:05pm Respiratory insufficiency March 19 10:05pm Acute dyspnea March 19, 2025 10: 05pm Atrial fibrillation March 19, 2025 10: 05pm CHF (congestive heart failure) February 10:05pm Chronic anticoagulation March 19, 2025 10:05pm COPD exacerbation March 19, 2025 10: 05pm Coronary artery disease March 19, 2025 10:05pm Edema of both legs March 19, 2025 10: 05pm Elevated troponin March 19, 2025 10: 05pm Acute hypoxic respiratory failure April 052024 11:12pm Bilateral edema of lower extremity March 262024 11:12pm Chronic anticoagulation April 05, 2025 1 1:12pm Elevated brain natriuretic peptide (BNP) level April 05, 2025 11:12pm Lactic acidosis April 05, 2025 11:12 pm Leukocytosis April 05, 2025 11:12 pm Morbid obesity with BMI of 45.0-49.9, ad ult April 05, 2025 11:12pm Obesity hypoventilation syndrome March 11:12pm WINIFRED (obstructive sleep apnea) April 05, 2025 11:12pm Acute exacerbation of chroni c obstructive pulmonary disease (COPD) April 05, 2025 11:12pm Atrial fibrillation April 05, 2025 11:12 pm Chief Complaint Admit Date AE COPD AE CHF AND RESPIRATORY INSUFFICI ENCY March 19, 2025 10:05pm AE COPD AE CHF AND RESPIRATORY INSUFFICI ENCY March 20, 2025 7:27pm AE COPD AE CHF AND RESPIRATORY INSUFFICI ENCY March 21, 2025 12:00pm AE COPD AE CHF AND RESPIRATORY INSUFFICI ENCY March 22, 2025 5:40pm AE COPD AE CHF AND RESPIRATORY INSUFFICI ENCY March 23, 2025 1:51pm AE COPD AE CHF AND RESPIRATORY INSUFFICI ENCY March 24, 2025 12:42pm SOB March 25, 2025 11: 38am XRAY E-ORDER CHEST PA & LAT March 30 1:07pm INT LAB ORDER April 03, 2025 2:32pm AE COPD, CHRONIC LE EDEMA WITH INC. BNP & April 05, 2025 11:26pm AE COPD, CHRONIC LE EDEMA WITH INC. BNP & April 06, 2025 8:42am AE COPD, CHRONIC LE EDEMA WITH INC. BNP & April 07, 2025 2:53pm Reason for Visit Admit Date Morbid obesity with BMI of 45.0-49.9, ad ult March 19, 2025 10:05pm Respiratory insufficiency March 19 10:05pm Acute dyspnea March 19, 2025 10: 05pm Atrial fibrillation March 19, 2025 10: 05pm CHF (congestive heart failure) February 10:05pm Chronic anticoagulation March 19, 2025 10:05pm COPD exacerbation March 19, 2025 10: 05pm Coronary artery disease March 19, 2025 10:05pm Edema of both legs March 19, 2025 10: 05pm Elevated troponin March 19, 2025 10: 05pm Acute hypoxic respiratory failure April 052024 11:26pm Bilateral edema of lower extremity March 262024 11:26pm Chronic anticoagulation April 05, 2025 1 1:26pm Elevated brain natriuretic peptide (BNP) level April 05, 2025 11:26pm Lactic acidosis April 05, 2025 11:26 pm Leukocytosis April 05, 2025 11:26 pm Morbid obesity with BMI of 45.0-49.9, ad ult April 05, 2025 11:26pm Obesity hypoventilation syndrome March 11:26pm WINIFRED (obstructive sleep apnea) April 05, 2025 11:26pm Pericardial effusion April 05, 2025 11:2 6pm Acute exacerbation of chroni c obstructive pulmonary disease (COPD) April 05, 2025 11:26pm Atrial fibrillation April 05, 2025 11:26 pm Chief Complaint Admit Date AE COPD AE CHF AND RESPIRATORY INSUFFICI ENCY March 19, 2025 10:05pm AE COPD AE CHF AND RESPIRATORY INSUFFICI ENCY March 20, 2025 7:27pm AE COPD AE CHF AND RESPIRATORY INSUFFICI ENCY March 21, 2025 12:00pm AE COPD AE CHF AND RESPIRATORY INSUFFICI ENCY March 22, 2025 5:40pm AE COPD AE CHF AND RESPIRATORY INSUFFICI ENCY March 23, 2025 1:51pm AE COPD AE CHF AND RESPIRATORY INSUFFICI ENCY March 24, 2025 12:42pm SOB March 25, 2025 11: 38am XRAY E-ORDER CHEST PA & LAT March 30 1:07pm INT LAB ORDER April 03, 2025 2:32pm AE COPD, CHRONIC LE EDEMA WITH INC. BNP & April 05, 2025 11:26pm AE COPD, CHRONIC LE EDEMA WITH INC. BNP & April 06, 2025 8:42am AE COPD, CHRONIC LE EDEMA WITH INC. BNP & April 07, 2025 2:53pm AE COPD, CHRONIC LE EDEMA WITH INC. BNP & April 08, 2025 8:43am AE COPD, CHRONIC LE EDEMA WITH INC. BNP & April 09, 2025 2:45pm Chief Complaint Admit Date AE COPD AE CHF AND RESPIRATORY INSUFFICI ENCY March 19, 2025 10:05pm AE COPD AE CHF AND RESPIRATORY INSUFFICI ENCY March 20, 2025 7:27pm AE COPD AE CHF AND RESPIRATORY INSUFFICI ENCY March 21, 2025 12:00pm AE COPD AE CHF AND RESPIRATORY INSUFFICI ENCY March 22, 2025 5:40pm AE COPD AE CHF AND RESPIRATORY INSUFFICI ENCY March 23, 2025 1:51pm AE COPD AE CHF AND RESPIRATORY INSUFFICI ENCY March 24, 2025 12:42pm SOB March 25, 2025 11: 38am XRAY E-ORDER CHEST PA & LAT March 30 1:07pm INT LAB ORDER April 03, 2025 2:32pm AE COPD, CHRONIC LE EDEMA WITH INC. BNP & April 05, 2025 11:26pm AE COPD, CHRONIC LE EDEMA WITH INC. BNP & April 06, 2025 8:42am AE COPD, CHRONIC LE EDEMA WITH INC. BNP & April 07, 2025 2:53pm AE COPD, CHRONIC LE EDEMA WITH INC. BNP & April 08, 2025 8:43am AE COPD, CHRONIC LE EDEMA WITH INC. BNP & April 09, 2025 2:45pm AE COPD, CHRONIC LE EDEMA WITH INC. BNP & April 10, 2025 6:46pm INT LAB ORDERS April 21, 2025 3:46p m Family History No Family History Records Found Relationship Condition Age at Onset Recorded Date/T buddy Not Specified Cardiac disease Unknown Malignant neoplasm Unknown Relationship Condition Age at Onset Recorded Date/T buddy Not Specified Congestive heart failure Unknown Atrial fibrillation Unknown Cardiac disease Unknown Malignant neoplasm Unknown mother Coronary artery disease Unknown Diabetes mellitus Unknown Colitis due to Clostridioides difficile U nknown father Coronary artery disease Unknown sister Coronary artery disease Unknown brother Malignant neoplasm of colon Unknown son Drug overdose Unknown Advance Directives No Advanced Directives Records Found Advance Directive Response Recorded Date/ Time Living Will No December 02 12:53pm Power of Cashier General No December 02 021 12:53pm Advance Directive Response Recorded Date/ Time Living Will No December 02 11:53am Power of Cashier General No December 02, 021 11:53am Advance Directive Response Recorded Date/ Time Name of Medical Power of Cashier General Juvenal Clark July 08, 2023 7:47pm Living Will Yes July 08 7:47pm Power of Cashier General Yes July 08, 2 023 7:47pm Advance Directive Response Recorded Date/ Time Advance Directives on File No Decem 2022 2:32pm Living Will Yes November 14, 2 023 2:47pm Power of Cashier General Yes November 14, 2023 2:47pm Advance Directive Response Recorded Date/ Time Advance Directives on File No Decem 2022 2:32pm Living Will Yes January 21, 2 024 2:01pm Power of Cashier General No January 21, 2024 2:01pm Advance Directive Response Recorded Date/ Time Advance Directives on File No Decem 2022 3:32pm Living Will Yes January 21, 2 024 3:01pm Power of Cashier General No January 21, 2024 3:01pm Advance Directive Response Recorded Date/ Time Living Will Yes January 21 3:01pm Power of Cashier General No January 21, 2024 3:01pm Advance Directive Response Recorded Date/ Time Living Will Yes August 18, 2024 10:21am Do you have a Healthcare Power of Cashier General? Yes August 18, 2024 10:21am Advance Directives Yes July 10:21am Advance Directive Response Recorded Date/ Time Living Will Yes August 18, 2024 10:21am Do you have a Healthcare Power of Cashier General? Yes August 18, 2024 10:21am Do you have a Healthcare Power of Cashier General? No March 19, 2025 10:53pm Advance Directives Yes July 10:21am Advance Directive Response Recorded Date/ Time Living Will Yes August 18, 2024 10:21am Do you have a Healthcare Power of Cashier General? Yes August 18, 2024 10:21am Do you have a Healthcare Power of Cashier General? No March 25, 2025 11:48am Do you have a Healthcare Power of Cashier General? No March 19, 2025 10:53pm Advance Directives Yes July 10:21am Advance Directive Response Recorded Date/ Time Do you have a Healthcare Power of Cashier General? No March 25, 2025 11:48am Do you have a Healthcare Power of Cashier General? No March 19, 2025 10:53pm Advance Directives Yes July 10:21am Advance Directive Response Recorded Date/ Time Do you have a Healthcare Power of Cashier General? No March 25, 2025 11:48am Do you have a Healthcare Power of Cashier General? No March 19, 2025 10:53pm Do you have a Healthcare Power of Cashier General? Yes April 05, 2025 8:31pm Advance Directives Yes July 10:21am Advance Directive Response Recorded Date/ Time Do you have a Healthcare Power of Cashier General? No March 25, 2025 11:48am Do you have a Healthcare Power of Cashier General? No March 19, 2025 10:53pm Do you have a Healthcare Power of Cashier General? Yes April 06, 2025 12:21am Advance Directives Yes July 10:21am Summary Purpose Additional Source Comments Goals (unrecognized section and content) Goals may be documented in a n alternate sectionGoals may be documented in an alternate sectionGoals may be documented in an alternate sectionGoals may be documented in an alternate sectionGoals may be documented in an alternate sectionGoals may be documented in an alternate sectionGoals may be documented in an alternate sectionGoals may be documented in an alternate sectionGoals may be documented in an alternate sectionGoals may be documented in an alternate sectionGoals may be documented in an alternate sectionGoals may be documented in an alternate section Source Comments (unrecognize d section and content) In the event this informatio n is protected by the Federal Confidentiality of Alcohol and Drug Abuse Patient Records regulations: The Federal rules restrict any use of the information to criminally investigate or prosecute any alcohol or drug abuse patient.[facility] the event this information is protected by the Federal Confidentiality of Alcohol and Drug Abuse Patient Records regulations: The Federal rules restrict any use of the information to criminally investigate or prosecute any alcohol or drug abuse patient.[facility] the event this information is protected by the Federal Confidentiality of Alcohol and Drug Abuse Patient Records regulations: The Federal rules restrict any use of the information to criminally investigate or prosecute any alcohol or drug abuse patient.[facility] the event this information is protected by the Federal Confidentiality of Alcohol and Drug Abuse Patient Records regulations: The Federal rules restrict any use of the information to criminally investigate or prosecute any alcohol or drug abuse patient.[facility] the event this information is protected by the Federal Confidentiality of Alcohol and Drug Abuse Patient Records regulations: The Federal rules restrict any use of the information to criminally investigate or prosecute any alcohol or drug abuse patient.[facility] the event this information is protected by the Federal Confidentiality of Alcohol and Drug Abuse Patient Records regulations: The Federal rules restrict any use of the information to criminally investigate or prosecute any alcohol or drug abuse patient.[facility] the event this information is protected by the Federal Confidentiality of Alcohol and Drug Abuse Patient Records regulations: The Federal rules restrict any use of the information to criminally investigate or prosecute any alcohol or drug abuse patient.[facility] the event this information is protected by the Federal Confidentiality of Alcohol and Drug Abuse Patient Records regulations: The Federal rules restrict any use of the information to criminally investigate or prosecute any alcohol or drug abuse patient.[facility] the event this information is protected by the Federal Confidentiality of Alcohol and Drug Abuse Patient Records regulations: The Federal rules restrict any use of the information to criminally investigate or prosecute any alcohol or drug abuse patient.[facility] the event this information is protected by the Federal Confidentiality of Alcohol and Drug Abuse Patient Records regulations: The Federal rules restrict any use of the information to criminally investigate or prosecute any alcohol or drug abuse patient.[facility] the event this information is protected by the Federal Confidentiality of Alcohol and Drug Abuse Patient Records regulations: The Federal rules restrict any use of the information to criminally investigate or prosecute any alcohol or drug abuse patient.[facility] Reason for Visit (unrecogniz ed section and content) Reason Comments Request Outside Medical Records Reason Comments Care Coordination Reason Comments Abstract Reason Comments Appointment Confirmation Reason Comments 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 - Other Care Teams (unrecognized sec tion and content) Vice President Of Operations Relationship Specialty Start Date [place] [phone] Registered Nurse Supervisor Internal Medicine 06/06/22 Vice President Of Operations Relationship Specialty Start Date End Date Mitchell Brian V [address] [place] [phone] Registered Nurse Supervisor Internal Medicine 06/06/22 Vice President Of Operations Relationship Specialty Start Date End Date Mitchell Brian V [address] [place] [phone] Registered Nurse Supervisor Internal Medicine 06/06/22 Vice President Of Operations Relationship Specialty Start Date End Date Mitchell Brian V [address] [place] [phone] Registered Nurse Supervisor Internal Medicine 06/06/22 Vice President Of Operations Relationship Specialty Start Date End Date Mitchell Brian V [address] [place] [phone] Registered Nurse Supervisor Internal Medicine 06/06/22 Team Status: Active Member Role Status Dates Dr. Christy Perea MD Family Provider Active Dr. Christy Perea MD Primary Care Provider Active Team Status: Active Member Role Status Dates Dr. Christy Perea MD Primary Care Provider Active Dr. Archie Gamino DO Emergency Provider Active Dr. Geoff Galvan MD Admit Provi galina, Attending Provider, Other Provider Active Team Status: Active Member Role Status Dates Dr. Christy Perea MD Primary Care Provider Active Dr. Archie Gamino DO Emergency Provider Active Dr. Geoff Galvan MD Admit Provider, Other Pro vider Active Dr. Preston Pineda , DO Attending Provider, Other Provider Active Team Status: Inactive Member Role Status Dates Dr. Christy Perea MD Primary Care Provider Active Dr. Archie Gamino DO Emergency Provider Active Dr. Geoff Galvan MD Admit Provider, Other Pro vider Active Dr. Preston Pineda , DO Attending Provider Active Team Status: Inactive Member Role Status Dates Dr. Christy Perea MD Primary Care Provider Active Dr. Mitchell Brian MD Attending Provider Active Team Status: Inactive Member Role Status Dates Dr. Christy Perea MD Primary Care Prov ider, Attending Provider, Referring Provider Active Team Status: Inactive Member Role Status Dates Dr. Christy Perea MD Primary Care Provider Active Dr. Mitchell Brian MD Attending Provider, Referrin g Provider Active Team Status: Active Member Role Status Dates Dr. Christy Perea MD Primary Care Provider Active Dr. Mitchell Brian MD Attending Provider, Referrin g Provider Active Team Status: Active Member Role Status Dates Dr. Christy Perea MD Primary Care Provider Active Dr. Mitchell Brian MD Referring Provider, Other Pr ovider Active Dr. Car Fuller MD Attending Provider Active Team Status: Inactive Member Role Status Dates Dr. Christy Perea MD Primary Care Provider Active Dr. Dolores Martin MD Emergency Provider Active Team Status: Inactive Member Role Status Dates Dr. Christy Perea MD Primary Care Provider, Referrin g Provider Active Dr. Chandni Courtney MD Attending Provider Active Team Status: Inactive Member Role Status Dates Dr. Christy Perea MD Primary Care Provider Active Dr. Dolores Martin MD Attending Provider, Emergency Provider Active Team Status: Active Member Role Status Dates Dr. Christy Perea MD Primary Care Provider Active Dr. Chandni Courtney MD Attending Provider , Referring Provider, Other Provider Active Team Status: Inactive Member Role Status Dates Dr. Christy Perea MD Primary Care Provider Active Dr. Chandni Courtney MD Attending Provider, Referring Pr ovider Active Team Status: Active Member Role Status Dates Dr. Christy Perea MD Primary Care Provider Active Dr. Chandni Courtney MD Other Provider Active Whitney WHITTEN PA Attending Provider Active Team Status: Inactive Member Role Status Dates Dr. Christy Perea MD Primary Care Provider Active Whitney WHITTEN PA Attending Provider, Referr ing Provider Active Team Status: Inactive Member Role Status Dates Dr. Christy Perea MD Primary Care Provider Active Start: October 28, 2024 End: October 28, 2024 Dr. Christy Perea MD Referring Provider Active Start: October 28, 2024 End: October 28, 2024 Dr. Chandni Courtney MD Attending Provider Active Start: October 28, 2024 End: October 28, 2024 Team Status: Inactive Member Role Status Dates Dr. Christy Perea MD Primary Care Provider Active Start: November 05, 2024 End: November 05, 2024 Curry Taylor MD Attending Provider Active St art: November 05, 2024 End: November 05, 2024 Curry Taylor MD Referring Provider Active St art: November 05, 2024 End: November 05, 2024 Team Status: Inactive Member Role Status Dates Dr. Christy Perea MD Primary Care Provider Active Start: December 04, 2024 End: December 04, 2024 Dr. Christy Perea MD Referring Provider Active Start: December 04, 2024 End: December 04, 2024 Curry Taylor MD Attending Provider Active St art: December 04, 2024 End: December 04, 2024 Team Status: Inactive Member Role Status Dates Dr. Christy Perea MD Primary Care Provider Active Start: December 04, 2024 End: December 04, 2024 Dr. Brennan Ansari MD Attending Provider Active S tart: December 04, 2024 End: December 04, 2024 Team Status: Inactive Member Role Status Dates Dr. Christy Perea MD Primary Care Provider Active Start: December 25, 2024 End: December 25, 2024 Azael Ashton DRILL DOCTOR, DRILL DOCTOR-C Attending Provider Active Start: December 25, 2024 End: December 25, 2024 Azael Ashton DRILL DOCTOR, DRILL DOCTOR-C Referring Provider Active Start: December 25, 2024 End: December 25, 2024 Team Status: Inactive Member Role Status Dates Dr. Christy Perea MD Primary Care Provider Active Start: February 05, 2025 End: February 05, 2025 Dr. Christy Perea MD Attending Provider Active Start: February 05, 2025 End: February 05, 2025 Dr. Christy Perea MD Referring Provider Active Start: February 05, 2025 End: February 05, 2025 Team Status: Active Member Role Status Dates Genia Chappell MD Primary Care Provider Active Team Status: Inactive Member Role Status Dates Dr. Christy Perea MD Primary Care Provider Active Start: March 18, 2025 End: March 18, 2025 Becca Dillard DRILL DOCTOR, DRILL DOCTOR-C Attending Provider Active Start: March 18, 2025 End: March 18, 2025 Becca Dillard DRILL DOCTOR, DRILL DOCTOR-C Referring Provider Active Start: March 18, 2025 End: March 18, 2025 Team Status: Inactive Member Role Status Dates Dr. Juan F Curran DO Referring Provider Active S tart: March 19, 2025 End: March 24, 2025 Dr. Juan F Curran DO Emergency Provider Active S tart: March 19, 2025 End: March 24, 2025 Genia Chappell MD Primary Care Provider Active St art: March 19, 2025 End: March 24, 2025 Dr. Orlando Bolden DO Admit Provider Active Start: March 19, 2025 End: March 24, 2025 Dr. Orlando Bolden , Other Provider Active Start: March 19, 2025 End: March 24, 2025 Dr. Cindi Lizarraga MD Attending Provider Active Start: March 19, 2025 End: March 24, 2025 Dr. Chai Rider , Other Provider Active S tart: March 19, 2025 End: March 24, 2025 Team Status: Active Member Role Status Dates Genia Chappell MD Primary Care Provider Active St art: March 20, 2025 Dr. Chandni Courtney MD Attending Provider Active Start: March 20, 2025 Team Status: Active Member Role Status Dates Dr. Juan F Curran , DO Referring Provider Active S tart: March 20, 2025 Dr. Juan F Curran , DO Emergency Provider Active S tart: March 20, 2025 Genia Chappell MD Primary Care Provider Active St art: March 20, 2025 Dr. Orlando Bolden , DO Admit Provider Active Start: March 20, 2025 Dr. Orlando Bolden , DO Other Provider Active Start: March 20, 2025 Dr. Chai Rider , DO Attending Provider Active Start: March 20, 2025 Dr. Chai Rider , DO Other Provider Active S tart: March 20, 2025 Team Status: Active Member Role Status Dates Dr. Juan F Curran , DO Referring Provider Active S tart: March 21, 2025 Dr. Juan F Curran , DO Emergency Provider Active S tart: March 21, 2025 Genia Chappell MD Primary Care Provider Active St art: March 21, 2025 Dr. Orlando Bolden , DO Admit Provider Active Start: March 21, 2025 Dr. Orlando Bolden , DO Other Provider Active Start: March 21, 2025 Dr. Chai Rider , DO Attending Provider Active Start: March 21, 2025 Dr. Chai Rider , DO Other Provider Active S tart: March 21, 2025 Team Status: Active Member Role Status Dates Dr. Juan F Curran , DO Referring Provider Active S tart: March 22, 2025 Dr. Juan F Curran , DO Emergency Provider Active S tart: March 22, 2025 Genia Chappell MD Primary Care Provider Active St art: March 22, 2025 Dr. Orlando Bolden , DO Admit Provider Active Start: March 22, 2025 Dr. Orlando Bolden , DO Other Provider Active Start: March 22, 2025 Dr. Chai Rider , DO Attending Provider Active Start: March 22, 2025 Dr. Chai Rider , DO Other Provider Active S tart: March 22, 2025 Team Status: Active Member Role Status Dates Dr. Juan F Curran , DO Referring Provider Active S tart: March 23, 2025 Dr. Juan F Curran , DO Emergency Provider Active S tart: March 23, 2025 Genia Chappell MD Primary Care Provider Active St art: March 23, 2025 Dr. Orlando Bolden , DO Admit Provider Active Start: March 23, 2025 Dr. Orlando Bolden , DO Other Provider Active Start: March 23, 2025 Dr. Cindi Lizarraga MD Attending Provider Active Start: March 23, 2025 Dr. Cindi Lizarraga MD Other Provider Active St art: March 23, 2025 Dr. Chai Rider , DO Other Provider Active S tart: March 23, 2025 Team Status: Active Member Role Status Dates Dr. Juan F Curran , DO Referring Provider Active S tart: March 24, 2025 Dr. Juan F Curran , DO Emergency Provider Active S tart: March 24, 2025 Genia Chappell MD Primary Care Provider Active St art: March 24, 2025 Dr. Orlando Bolden , DO Admit Provider Active Start: March 24, 2025 Dr. Orlando Bolden , DO Other Provider Active Start: March 24, 2025 Dr. Cindi Lizarraga MD Attending Provider Active Start: March 24, 2025 Dr. Cindi Lizarraga MD Other Provider Active St art: March 24, 2025 Dr. Chai Rider , DO Other Provider Active S tart: March 24, 2025 Team Status: Active Member Role Status Dates Dr. Juan F Curran , DO Emergency Provider Active S tart: March 20, 2025 Genia Chappell MD Primary Care Provider Active St art: March 20, 2025 Dr. Orlando Bolden , DO Admit Provider Active Start: March 20, 2025 Dr. Orlando Bolden , DO Other Provider Active Start: March 20, 2025 Dr. Chai Rider , DO Attending Provider Active Start: March 20, 2025 Dr. Chai Rider , DO Other Provider Active S tart: March 20, 2025 Team Status: Active Member Role Status Dates Dr. Juan F Curran DO Emergency Provider Active S tart: March 21, 2025 Genia Chappell MD Primary Care Provider Active St art: March 21, 2025 Dr. Orlando Bolden , DO Admit Provider Active Start: March 21, 2025 Dr. Orlando Bolden , DO Other Provider Active Start: March 21, 2025 Dr. Chai Rider , DO Attending Provider Active Start: March 21, 2025 Dr. Chai Rider , DO Other Provider Active S tart: March 21, 2025 Team Status: Active Member Role Status Dates Dr. Juan F Curran , DO Emergency Provider Active S tart: March 22, 2025 Genia Chappell MD Primary Care Provider Active St art: March 22, 2025 Dr. Orlando Bolden , DO Admit Provider Active Start: March 22, 2025 Dr. Orlando Bolden , DO Other Provider Active Start: March 22, 2025 Dr. Chai Rider , DO Attending Provider Active Start: March 22, 2025 Dr. Chai Rider , DO Other Provider Active S tart: March 22, 2025 Team Status: Active Member Role Status Dates Dr. Juan F Curran , DO Emergency Provider Active S tart: March 23, 2025 Genia Chappell MD Primary Care Provider Active St art: March 23, 2025 Dr. Orlando Bolden , DO Admit Provider Active Start: March 23, 2025 Dr. Orlando Bolden , DO Other Provider Active Start: March 23, 2025 Dr. Cindi Lizarraga MD Attending Provider Active Start: March 23, 2025 Dr. Cindi Lizarraga MD Other Provider Active St art: March 23, 2025 Dr. Chai Rider , DO Other Provider Active S tart: March 23, 2025 Team Status: Active Member Role Status Dates Dr. Juan F Curran , DO Emergency Provider Active S tart: March 24, 2025 Genia Chappell MD Primary Care Provider Active St art: March 24, 2025 Dr. Orlando Bolden , DO Admit Provider Active Start: March 24, 2025 Dr. Orlando Bolden , DO Other Provider Active Start: March 24, 2025 Dr. Cindi Lizarraga MD Attending Provider Active Start: March 24, 2025 Dr. Cindi Lizarraga MD Other Provider Active St art: March 24, 2025 Dr. Chai Rider , DO Other Provider Active S tart: March 24, 2025 Team Status: Inactive Member Role Status Dates Genia Chappell MD Primary Care Provider Active St art: March 25, 2025 End: March 25, 2025 Dr. Jose Armando Wood DO Attending Provider Active Start : March 25, 2025 End: March 25, 2025 Dr. Jose Armando Wood DO Emergency Provider Active Start : March 25, 2025 End: March 25, 2025 Team Status: Inactive Member Role Status Yonatan Chappell MD Primary Care Provider Active St art: March 30, 2025 End: March 30, 2025 Genia Chappell MD Attending Provider Active Start : March 30, 2025 End: March 30, 2025 Dr. Mitchell Brian MD Referring Provider Active Start: March 30, 2025 End: March 30, 2025 Team Status: Active Member Role Status Yonatan Chappell MD Primary Care Provider Active St art: March 31, 2025 Genia Chappell MD Attending Provider Active Start : March 31, 2025 Genia Chappell MD Referring Provider Active Start : March 31, 2025 Team Status: Inactive Member Role Status Yonatan Chappell MD Primary Care Provider Active St art: March 31, 2025 End: March 31, 2025 Genia Chappell MD Attending Provider Active Start : March 31, 2025 End: March 31, 2025 Genia Chappell MD Referring Provider Active Start : March 31, 2025 End: March 31, 2025 Team Status: Active Member Role Status Yonatan Chappell MD Primary Care Provider Active St art: April 03, 2025 Becca Dillard DRILL DOCTOR, DRILL DOCTOR-C Attending Provider Active Start: April 03, 2025 Becca Dillard NP, DRILL DOCTOR-C Referring Provider Active Start: April 03, 2025 Team Status: Active Member Role Status Yonatan Chappell MD Primary Care Provider Active St art: April 05, 2025 Dr. Andi Ortiz MD Emergency Provider Active Start: April 05, 2025 Dr. Orlando Bolden DO Admit Provider Active Start: April 05, 2025 Dr. Orlando Bolden DO Attending Provider Active Start: April 05, 2025 Dr. Orlando Bolden DO Referring Provider Active Start: April 05, 2025 Team Status: Inactive Member Role Status Yonatan Chappell MD Primary Care Provider Active St art: April 03, 2025 End: April 03, 2025 Becca Dillard DRILL DOCTOR, DRILL DOCTOR-C Attending Provider Active Start: April 03, 2025 End: April 03, 2025 Becca Dillard DRILL DOCTOR, DRILL DOCTOR-C Referring Provider Active Start: April 03, 2025 End: April 03, 2025 Team Status: Active Member Role Status Yonatan Chappell MD Primary Care Provider Active St art: April 05, 2025 Dr. Andi Ortiz MD Emergency Provider Active Start: April 05, 2025 Dr. Orlando Bolden DO Admit Provider Active Start: April 05, 2025 Dr. Orlando Bolden DO Referring Provider Active Start: April 05, 2025 Dr. Orlando Bolden DO Other Provider Active Start: April 05, 2025 Dr. Ken Vieyra MD Attending Provider Active Start: April 05, 2025 Dr. Mitchell Brian MD Other Provider Active Start: April 05, 2025 Team Status: Active Member Role Status Yonatan Chappell MD Primary Care Provider Active St art: April 06, 2025 Dr. Andi Ortiz MD Emergency Provider Active Start: April 06, 2025 Dr. Orlando Bolden DO Admit Provider Active Start: April 06, 2025 Dr. Orlando Bolden DO Referring Provider Active Start: April 06, 2025 Dr. Orlando Bodlen DO Other Provider Active Start: April 06, 2025 Dr. Ken Vieyra MD Attending Provider Active Start: April 06, 2025 Dr. Ken Vieyra MD Other Provider Active Sta rt: April 06, 2025 Team Status: Active Member Role Status Yonatan Chappell MD Primary Care Provider Active St art: April 07, 2025 Dr. Andi Ortiz MD Emergency Provider Active Start: April 07, 2025 Dr. Orlando Bolden DO Admit Provider Active Start: April 07, 2025 Dr. Orlando Bolden DO Referring Provider Active Start: April 07, 2025 Dr. Orlando Bolden DO Other Provider Active Start: April 07, 2025 Dr. Ken Vieyra MD Attending Provider Active Start: April 07, 2025 Dr. Ken Vieyra MD Other Provider Active Sta rt: April 07, 2025 Dr. Mitchell Brian MD Other Provider Active Start: April 07, 2025 Team Status: Inactive Member Role Status Yonatan Chappell MD Primary Care Provider Active St art: April 05, 2025 End: April 10, 2025 Dr. Andi Ortiz MD Emergency Provider Active Start: April 05, 2025 End: April 10, 2025 Dr. Orlando Bolden , Admit Provider Active Start: April 05, 2025 End: April 10, 2025 Dr. Orlando Bolden DO Referring Provider Active Start: April 05, 2025 End: April 10, 2025 Dr. Orlando Bolden DO Other Provider Active Start: April 05, 2025 End: April 10, 2025 Dr. Mitchell Brian MD Other Provider Active Start: April 05, 2025 End: April 10, 2025 Dr. Geoff Galvan MD Attending Provider Active Start: April 05, 2025 End: April 10, 2025 Dr. Ken Vieyra MD Other Provider Active Sta rt: April 05, 2025 End: April 10, 2025 Team Status: Active Member Role Status Yonatan Chappell MD Primary Care Provider Active St art: April 08, 2025 Dr. Andi Ortiz MD Emergency Provider Active Start: April 08, 2025 Dr. Orlando Bolden DO Admit Provider Active Start: April 08, 2025 Dr. Orlando Bolden DO Referring Provider Active Start: April 08, 2025 Dr. Orlando Bolden DO Other Provider Active Start: April 08, 2025 Dr. Ken Vieyra MD Attending Provider Active Start: April 08, 2025 Dr. Ken Vieyra MD Other Provider Active Sta rt: April 08, 2025 Dr. Mitchell Brian MD Other Provider Active Start: April 08, 2025 Team Status: Active Member Role Status Yonatan Chappell MD Primary Care Provider Active St art: April 09, 2025 Dr. Andi Ortiz MD Emergency Provider Active Start: April 09, 2025 Dr. Orlando Bolden DO Admit Provider Active Start: April 09, 2025 Dr. Orlando Bolden DO Referring Provider Active Start: April 09, 2025 Dr. Orlando Bolden DO Other Provider Active Start: April 09, 2025 Dr. Ken Vieyra MD Attending Provider Active Start: April 09, 2025 Dr. Ken Vieyra MD Other Provider Active Sta rt: April 09, 2025 Dr. Mitchell Brian MD Other Provider Active Start: April 09, 2025 Team Status: Active Member Role Status Yonatan Chappell MD Primary Care Provider Active St art: April 06, 2025 Dr. Andi Ortiz MD Emergency Provider Active Start: April 06, 2025 Dr. Orlando Bolden DO Admit Provider Active Start: April 06, 2025 Dr. Orlando Bolden DO Other Provider Active Start: April 06, 2025 Dr. Ken Vieyra MD Attending Provider Active Start: April 06, 2025 Dr. Ken Vieyra MD Other Provider Active Sta rt: April 06, 2025 Team Status: Active Member Role Status Yonatan Chappell MD Primary Care Provider Active St art: April 07, 2025 Dr. Andi Ortiz MD Emergency Provider Active Start: April 07, 2025 Dr. Orlando Bolden DO Admit Provider Active Start: April 07, 2025 Dr. Orlando Bolden DO Other Provider Active Start: April 07, 2025 Dr. Ken Vieyra MD Attending Provider Active Start: April 07, 2025 Dr. Ken Vieyra MD Other Provider Active Sta rt: April 07, 2025 Dr. Mitchell Brian MD Other Provider Active Start: April 07, 2025 Team Status: Active Member Role Status Yonatan Chappell MD Primary Care Provider Active St art: April 08, 2025 Dr. Andi Ortiz MD Emergency Provider Active Start: April 08, 2025 Dr. Orlando Bolden DO Admit Provider Active Start: April 08, 2025 Dr. Orlando Bolden DO Other Provider Active Start: April 08, 2025 Dr. Ken Vieyra MD Attending Provider Active Start: April 08, 2025 Dr. Ken Vieyra MD Other Provider Active Sta rt: April 08, 2025 Dr. Mitchell Brian MD Other Provider Active Start: April 08, 2025 Team Status: Active Member Role Status Yonatan Chappell MD Primary Care Provider Active St art: April 09, 2025 Dr. Andi Ortiz MD Emergency Provider Active Start: April 09, 2025 Dr. Orlando Bolden DO Admit Provider Active Start: April 09, 2025 Dr. Orlando Bolden DO Other Provider Active Start: April 09, 2025 Dr. Ken Vieyra MD Attending Provider Active Start: April 09, 2025 Dr. Ken Vieyra MD Other Provider Active Sta rt: April 09, 2025 Dr. Mitchell Brian MD Other Provider Active Start: April 09, 2025 Team Status: Active Member Role Status Dates Genia Chappell MD Primary Care Provider Active St art: April 10, 2025 Dr. Andi Ortiz MD Emergency Provider Active Start: April 10, 2025 Dr. Orlando Bolden DO Admit Provider Active Start: April 10, 2025 Dr. Orlando Bolden DO Other Provider Active Start: April 10, 2025 Dr. Mitchell Brian MD Other Provider Active Start: April 10, 2025 Dr. Geoff Galvan MD Attending Provider Active Start: April 10, 2025 Dr. Geoff Galvan MD Other Provider Active Start: April 10, 2025 Dr. Ken Vieyra MD Other Provider Active Sta rt: April 10, 2025 Team Status: Inactive Member Role Status Yonatan Chappell MD Primary Care Provider Active St art: April 21, 2025 End: April 21, 2025 Becca Dillard NP, DRILL DOCTOR-C Attending Provider Active Start: April 21, 2025 End: April 21, 2025 Becca Dillard NP DRILL DOCTOR-C Referring Provider Active Start: April 21, 2025 End: April 21, 2025 INFORMATION SOURCE (unrecogn ized section and content) DATE CREATED AUTHOR 07/23/2022 [facility] DATE CREATED AUTHOR AUTHOR'S ORGANIZ ATION 04/30/2025 [facility] FOR RECORDS PERTAINING TO PATIENTS WHO ARE [...] BE BASED ON THE PRIMARY CLINICAL RECORDS. [facility] [employer] [facility]. provides no warranty or guarantee of the accuracy or completeness of information in this document.
== END | disposition home or self-care (01) ==
LOC: PSN 12:57
PROVIDERS: PCP Family Medicine; Referring Provider Internal Medicine Pulmonary Disease; Visit Provider Internal Medicine Pulmonary Disease
DX: J96.11 Chronic respiratory failure with hypoxia (principal); J44.9 Chronic obstructive pulmonary disease, unspecified
CPT/HCPCS: 36600; 82803

== ENCOUNTER 2025-05-05 21:56 | Observation (INO) | payer MEDICARE, SELFPAY ==
[2024-08-18 10:21] VITALS: BMI 40.8
[2025-05-05 21:58] VITALS: BP 128/72; PULSE 84; RESP 18; TEMP 36.9; O2SAT 97
--- NOTE | 2025-05-05 22:44 | EKG12_ITS ---
Test Reason : ABD LABS Blood Pressure : */* mmHG Vent. Rate : 79 BPM Atrial Rate : * BPM P-R Int : * ms QRS Dur : 90 ms QT Int : 340 ms P-R-T Axes : * 55 -85 degrees QTcB Int : [address] & T wave abnormality, consider inferior ischemia Abnormal ECG Confirmed by Yasmani Bruno ([id number]), market editor SHANNAN MAN ([id number]) on 05/07/2025 6:56:09 AM Referred By: Confirmed By: Yasmani Bruno
--- NOTE | 2025-05-05 23:55 | EDS_ITS ---
HPI History of Present Illness Chief Complaint: Abn Labs Informant: patient and spouse/S.O. Narrative Narrative: 69-year-old female presenting to the emergency room with weakness twitching confusion. Patient states that on Sunday she saw cardiology and she started new medications over the weekend including metolazone and digoxin. Patient has a history of A-fib and is on Eliquis as well as metoprolol. States her symptoms were particularly noted on Sunday as well as today by home health. They attempted to contact cardiology was advised by nursing to come to the emergency room tonight. Patient felt globally weak getting into the car. She states that she does not feel that she is thinking clearly. Patient has a history of COPD is on home oxygen. She was recently admitted for COPD exacerbation as well as A-fib and lower extremity edema (HFpEF) [facility] Medical History Morbid obesity with BMI of 45.0-49.9, adult Chronic anticoagulation Elevated troponin COPD exacerbation CHF (congestive heart failure) Atrial fibrillation Acute dyspnea Edema of both legs Coronary artery disease Atrial fibrillation Hypertension Abnormal stress test Atrial fibrillation with rapid ventricular response Tachycardia Asthma Chronic airway obstruction Motion sickness Osteopenia Sleep apnea GERD (gastroesophageal reflux disease) Morbid obesity Anxiety Fatigue Smoker Depression Migraines Acute respiratory failure with hypoxia COPD exacerbation Acute sinusitis Cellulitis of left forearm Cellulitis and abscess of face Urinary tract infection Septic olecranon bursitis of right elbow Olecranon bursitis of right elbow Bursitis Sebaceous cyst of axilla Back pain Bronchitis URI (upper respiratory infection) Knee pain Hemorrhoids SOB (shortness of breath) Lung disease Arthritis Home Medications ?Medication ?Instructions ?Recorded ?Last Taken ?Type montelukast 10 mg tablet 10 mg PO QHS allergies 09/0704/04/25 History fluticasone fur. 200 mcg-umeclid 1 inh inhalation BATSHEVA Y SOB 07/08/23 04/05/25 History 62.5 mcg-vilant 25 mcg inhalat.powder (Trelegy Ellipta) rimegepant 75 mg disintegrating 75 mg PO DAILY PRN olesya tamika 07/08/23 Unknown History tablet (Nurtec ODT) albuterol sulfate 90 mcg/actuation 2 puff inhalation Q 4H PRN 02/13/24 04/05/25 History aerosol inhaler Shortness Of Breath duloxetine 60 mg capsule,delayed 60 mg PO DAILY mood 1 11/30/23 04/05/25 History release apixaban 5 mg tablet (Eliquis) 5 mg PO BID blood thinn er #60 tabs 02/16/25 04/05/25 Rx fluticasone propionate 50 2 spray intranasal QHS nasal 03/19/25 04/04/25 History mcg/actuation nasal spray,suspension (24 Hour Allergy Relief) furosemide 40 mg tablet 40 mg PO BID water pill 02/2504/05/25 History levofloxacin 500 mg tablet 500 mg PO DAILY #7 tabs Unknown Rx potassium chloride 20 mEq 20 meq PO DAILY supplement # 90 tabs 04/24/25 Unknown Rx tablet,extended release dapagliflozin propanediol 10 mg 10 mg PO QDAY #90 tabs 04/30/25 Unknown Rx tablet (Farxiga) digoxin 250 mcg (0.25 mg) tablet 250 mcg PO QDAY #90 t abs 05/01/25 Unknown Rx metolazone 5 mg tablet 5 mg PO QDAY #90 tabs Unknown Rx metoprolol tartrate 50 mg tablet 50 mg PO BID 05/04/25 Unknown History Allergy/AdvReac Type Severity Reaction Status Date / Time feathers Allergy Intermediate Shortness Verified 05/05/25 21:57 of breath house dust Allergy Unknown Verified 05/05/25 21:57 mold Allergy Unknown Verified 05/05/25 21:57 Family History Mother CAD (coronary artery disease) Diabetes C. difficile colitis Father CAD (coronary artery disease) Sister CAD (coronary artery disease) Brother , 62 Colon cancer Son , 45 Drug overdose Other Atrial fibrillation CHF (congestive heart failure) Cancer Heart disease Surgical History Hx of cardiac catheterization (~04/09/24) H/O left cataract extraction H/O right heart catheterization (~07/19/22) Hx of removal of ovary (~1994) History of appendectomy (~1994) Social History household members: spouse housing: house Smoking Status: Former smoker alcohol intake: current alcohol intake frequency: holidays/special occasions only substance use type: does not use caffeine: Yes Type: coffee Number of servings: 2 ROS ROS ED ROS Narrative Generalized weakness, confusion, twitching Constitutional Constitutional ED: Denies chills or weight loss Eyes Eyes: Denies change in vision or diplopia ENT ENT ED: Denies ear pain, rhinorrhea or sore throat Cardiovascular Cardiovascular: Denies chest pain, orthopnea, palpitations or racing heartbeat Respiratory/Chest Respiratory/Chest: Denies cough, dyspnea or orthopnea Gastrointestinal Gastrointestinal: Denies abdominal pain, diarrhea, nausea or vomiting Genitourinary Genitourinary ED: Denies dysuria, hematuria or urinary frequency Musculoskeletal Musculoskeletal: Denies arthralgias or myalgias Integumentary Denies abscess or rash Neurologic Neurologic: Denies headache(s) or weakness Psychiatric Psychiatric: Denies anxiety, depression, suicidal ideation or suicidal thoughts Endocrine Endocrinology: Denies polydipsia, polyphagia or polyuria Allergic/Immunologic Allergic/Immunologic ED: Denies mouth swelling, tongue swelling or urticaria EXAM Physical Exam Const Vital Signs: 05/05/25 21:58 05/05/25 23:59 05/06/25 00:01 Temperature 98.5 F Temperature Source Oral Pulse Rate 84 78 Respiratory Rate 18 14 Respiratory Effort Respiratory Pattern Blood Pressure 128/72 H 115/71 Blood Pressure Mean 90 85 Pulse Ox 97 100 Oxygen Delivery Method Nasal Cannula Room Air Oxygen Flow Rate (L/min) 4 Fraction of Inspired Oxygen (FIO2) 05/06/25 00:02 05/06/25 01:55 05/06/25 02:00 Temperature Temperature Source Pulse Rate 88 88 Respiratory Rate 17 18 Respiratory Effort Normal Non-Labored Respiratory Pattern Normal Blood Pressure 122/74 H Blood Pressure Mean 90 Pulse Ox 97 98 Oxygen Delivery Method Oxygen Flow Rate (L/min) Fraction of Inspired Oxygen (FIO2) 35 05/06/25 02:18 Temperature 98.6 F Temperature Source Pulse Rate 88 Respiratory Rate 18 Respiratory Effort Respiratory Pattern Blood Pressure 122/74 H Blood Pressure Mean 90 Pulse Ox 98 Oxygen Delivery Method Oxygen Flow Rate (L/min) Fraction of Inspired Oxygen (FIO2) Positive well nourished and well developed General Appearance ED: well developed HEENT Reports normocephalic, head/scalp atraumatic and moist mucous membranes Eyes PERRL and EOMs intact bilaterally Neck no lymphadenopathy, supple and no JVD Resp normal respiratory effort and clear to auscultation bilaterally Cardio no murmurs Rhythm: abnormal rhythm irregularly irregular GI normal to inspection, nondistended, normoactive bowel sounds and non-tender Palpation: soft Back/Spine no CVA tenderness and normal ROM Extremity normal to inspection General Extremety ED: Negative for edema General Extremity: Negative for edema Neuro oriented x3 and CN's II-XII intact bilaterally Sensorium / Orientation: alert Motor Exam: strength 5/5 throughout Psych mental status grossly normal Mood & Affect: Negative for depressed or tearful Skin no rashes or lesions noted and no wounds MDM MDM MDM Narrative Medical decision making narrative: Differential diagnosis includes dehydration acute kidney injury electrolyte abnormalities CO2 retention digoxin toxicity liver dysfunction UTI Basic blood work shows a white count of 13.2 hemoglobin 12.5. Sodium 136 potassium is 2.5 magnesium 2.1. CO2 on the BMP is greater than 50. BUN is 20 creatinine 0.94. Digoxin 1.15 normal liver function. ABG was obtained which demonstrates a pH of 7.475 PaCO2 of 73.8 PaO2 of 101.7 HCO3 of 54.4. EKG shows A-fib at a rate of 79 bpm. Wonder if the metolazone is controls her contraction alkalosis and hypokalemia. Patient received acetazolamide. She does wear BiPAP at night when sleeping. Patient received oral potassium as well as IV potassium. Case was discussed with the hospitalist into the hospital. She has not yet been able to give us a urine specimen. History & Record Review Discussion w/independent historian: Patient and Significant other Additional record(s) reviewed:: Prior inpatient record, Prior outpatient record, Prior ED visit and Prior labs Lab Data Attestation: I reviewed the patient's lab results. Labs: Laboratory Results - last 24 hr 05/05/25 05/06/25 23:51 02:39 WBC 13.2 H RBC 4.35 Hgb 12.5 Hct 40.1 MCV 92.2 MCH 28.7 MCHC 31.2 L RDW Std Deviation 51.0 H RDW Coeff of Beena 15.1 H Plt Count 477 H MPV 9.4 Immature Gran % (Auto) 0.900 Neut % (Auto) 77.7 H Lymph % (Auto) 9.7 L Mckinley % (Auto) 11.1 H Eos % (Auto) 0.2 Baso % (Auto) 0.4 Absolute Neuts (auto) 10.3 H Absolute Lymphs (auto) 1.28 Nucleated RBC % 0 Sodium 136 135 Potassium 2.5 L* 2.6 L* Chloride 73 L* 75 L Carbon Dioxide > 50.0 H* 49.8 H* Anion Gap UNABLE TO CALCULATE L 10 BUN 20 H 19 Creatinine 0.94 0.86 Estim Creat Clear Calc 61.82 67.57 Est GFR (MDRD) Non-Af 65 72 BUN/Creatinine Ratio 21.6 H 22.0 H Glucose 146 H 117 H Calcium 10.2 9.9 Magnesium 2.1 Total Bilirubin 0.45 Direct Bilirubin 0.21 AST 21 ALT 21 Alkaline Phosphatase 76 Total Protein 6.9 Albumin 3.8 Globulin 3.1 Digoxin 1.15 ABG Data ABG results: ABG 05/06/25 01:33 Specimen Type ART Sample Site R Radial pH 7.48 H Bicarbonate Actual 54.4 H Total CO2 > 50 Base Excess > 30 H O2 Saturation 98 O2 % 4.0 ABG pCO2 73.8 H* ABG pO2 102 H Johnathan Test Positive O2 Delivery Device Cannula Vent Mode Not entered Crit Call To/Read Back Yes Blood Gas Notified Whom [facility] Blood Gas Notified Time 01:34:56 EKG Initial EKG: Attestation: I personally reviewed and interpreted this EKG as follows: Comments: Atrial fibrillation at a rate of 79 bpm. Management Discussion w/another healthcare provider: Hospitalist (Dr. Camejo) Discharge Plan Dx/Rx/DC Orders Clinical Impression: Acute hypokalemia, COPD (chronic obstructive pulmonary disease), Chronic respiratory failure with hypoxia and hypercapnia, Weakness, Acute confusion, Alkalosis Disposition Disposition: Acute Care Hospital [facility]
[2025-05-05 23:59] VITALS: BMI 41.5
[2025-05-06] VITALS (16 sets, daily range): BP systolic 115–152; BP diastolic 62–82; PULSE 73–93; RESP 12–19; TEMP 36.6–37; O2SAT 94–100; BMI 41.1
--- OUTSIDE RECORDS SUMMARY | 2025-05-06 00:19 | XMS RPT_ITS | CCD ---
Author Organization [facility] Care Team Providers Care Sewer Pipe Cleaner Name Role Phone Dr. Christy Perea Primary Care Provider [phone] Belinda Barlow Attending Provider [phone] Dr. Christy Perea Referring Provider [phone] FISH Dahl Attending Provider Unavailable Primary Care Provider Unavailabl e Mitchell Millard Unavailable Mitchell Millard Unavailable Dr. Christy Perea Primary Care Provider Dr. Arcihe Gamino Emergency Provider Dr. Geoff Galvan Admit [...] Shelton Attending Provider Brit NORRIS, Dr. Christy Jose Primary Care Provider Brit NORRIS, Dr. Christy Jose Referring Provider Sherwin NORRIS, Dr. Tariq Attending Provider Curry Taylor MD Attending Provider Curry Taylor MD Referring Provider Elan NORRIS, Dr. Amin Attending Provider [facility] INTERIOR PLANT CARETAKER-C, Azael Attending Provider [facility] INTERIOR PLANT CARETAKER-C, Azael Referring Provider Brit NORRIS, Dr. Christy Jose Attending Provider Brit NORRIS, Dr. Christy Jose Primary Care Provider Brit NORRIS, Dr. Christy Jose Referring Provider Curry Taylor MD Attending Provider Nishant INTERIOR PLANT CARETAKER-CBecca Attending Provider Nishant INTERIOR PLANT CARETAKER-CBecca Referring Provider Magdy CASTANEDA, Dr. Rogel Referring [...] MD Referring Provider Brit NORRIS, Dr. Christy Jose Primary Care Provider Brit NORRIS, Dr. Christy Jose Referring Provider Angel NORRIS, Dr. Escamilla Emergency Provider nm Joel CASTANEDA, Dr. Nielsen Attending Provider Unav ailable DoJoel DO, Dr. Nielsen Referring Provider Unav ailable Angel NORRIS, Dr. Escamilla Emergency Provider [facility] , Dr. Nielsen Referring Provider Unav ailable Jarrell NORRIS, Dr. Rogers Attending Provider Roc NORRIS, Dr. Mitchell Winkler Other Provider Jarrell NORRIS, Dr. Rogers Other Provider Mandy NORRIS, Dr. Geoff Beal Attending Provider Jarrell NORRIS, Dr. Rogers Other Provider Jarrell NORRIS, Dr. Rogers Attending Provider Brit NORRIS, Dr. Christy Jose Primary Care Provider Mandy NORRIS, Dr. Geoff Beal Other Provider Mitchell Brian V Referring Unavailable Dona, Chalclarissa Primary Care Unavailable Genia Chappell Attending Unavailable Cheryllliff, Christy S Primary Care Unavailable Curry Taylor Attending Unavailable Curry Taylor Referring Unavailable Jolliff, Christy S Attending Unavailable Jolliff, Christy S Primary Care Unavailable Dona, Chalon Primary Care Unavailable Nishant INTERIOR PLANT CARETAKER, Becca Attending Unavailable Nishant ESPARZA, Becca Referring Unavailable Sherwin, Chandni Attending Unavailable Sherwin, Chandni Referring Unavailable Dona, Chalon Primary Care Unavailable Sibilia, Mitchell V Attending Unavailable Sibilia, Mitchell V Referring Unavailable Dona, Chalon Primary Care Unavailable Jolliff, Christy S Referring Unavailable Jolliff, Christy S Attending Unavailable Jolliff, Christy S Primary Care Unavailable Brennan Ansari Attending Unavailable Jolliff, Christy S Primary Care Unavailable Jolliff, Christy S Referring Unavailable Jolliff, Christy S Primary Care Unavailable Husam Young NP Attending Unavailable Nishant INTERIOR PLANT CARETAKER, Becca Referring Unavailable Nishant INTERIOR PLANT CARETAKER, Becca Attending Unavailable Jolliff, Christy S Primary Care Unavailable Jolliff, Christy S Primary Care Unavailable Braden Bower Attending Unavailable Sherwin, Chandni Referring Unavailable Dona, Chalon Primary Care Unavailable Jose Armando Wood Attending Unavailable McMorrow INTERIOR PLANT CARETAKERAzael Referring Unavailable Jolliff, Christy S Primary Care Unavailable McMorrow INTERIOR PLANT CARETAKER, Azael Attending Unavailable Sibilia, Mitchell V Referring Unavailable Sibilia, Mitchell V Attending Unavailable Jolliff, Christy S Primary Care Unavailable Sherwin, Chandni Attending Unavailable Sherwin, Chandni Referring Unavailable Jolliff, Christy S Primary Care Unavailable Jolliff, Christy S Attending Unavailable Jolliff, Christy S Referring Unavailable Jolliff, Chritsy S Primary Care Unavailable Jolliff, Christy S Referring Unavailable Jolliff, Christy S Primary Care Unavailable Curry Taylor Attending Unavailable Sherwin, Chandni Attending Unavailable Jolliff, Christy S Referring Unavailable Jolliff, Christy S Primary Care Unavailable Orlando Bolden Admitting Unavailable Orlando Bolden Consulting Unavailable Dona, Chalon Primary Care Unavailable Ungur, Remus Referring Unavailable Koram, Cindi Kristen Attending Unavailable Chai Rider Consulting Unavailable Zia, Cindi Kristen Consulting Unavailable Orlando Bolden Consulting Unavailable Orlando Bolden Admitting Unavailable Ungur, Remus Referring Unavailable Koram, Cindi Kristen Attending Unavailable Dona, Chalon Primary Care Unavailable Chai Rider Unavailable Orlando Bolden Admitting Unavailable Orlando Bolden Consulting Unavailable Orlando Bolden Referring Unavailable Dona, Chalon Primary Care Unavailable Geoff Galvan Attending Unavailable Sibilia, Mitchell V Consulting Unavailable Ken Vieyra Consulting Unavailable Nishant INTERIOR PLANT CARETAKER, Becca Referring Unavailable Dona, Chalon Primary Care Unavailable Nishant ESPARZA, Becca Attending Unavailable Jolliff, Christy S Referring Unavailable Jolliff, Christy S Primary Care Unavailable Mollison, Curry Attending Unavailable Jolliff, Christy S Referring Unavailable Jolliff, Christy S Primary Care Unavailable Mollison, Curry Attending Unavailable Jolliff, Christy S Primary Care Unavailable Jolliff, Christy S Referring Unavailable Mollison, Curry Attending Unavailable Tereletsky, Chai Attending Unavailable Jarrell, Ken Attending Unavailable Orlando Bolden Admitting Unavailable Orlando Bolden Consulting Unavailable Orlando Bolden Referring Unavailable Dona, Chalon Primary Care Unavailable Sibilia, Mitchell V Consulting Unavailable Jarrell, Ken Consulting Unavailable de Joel, Orlando Attending Unavailable de Joel, Orlando Attending Unavailable KotsoniGeoff jose F Attending Unavailable Geoff Galvan Consulting Unavailable Sherwin, Chandni Attending Unavailable Dona, Chalon Primary Care Unavailable Sherwin, Chandni Attending Unavailable Jolliff, Christy S Referring Unavailable Dona, Chalon Primary Care Unavailable Sherwin, Chandni Attending Unavailable Jolliff, Christy S Primary Care Unavailable Jolliff, Christy S Referring Unavailable Jolliff, Christy S Primary Care Unavailable Elan, Brennan Attending Unavailable Dona, Chalon Primary Care Unavailable Dona, Chalon Attending Unavailable Dona, Chalon Referring Unavailable Jolliff , Dr. Christy Jose Primary Care Provider [phone] Dr. Christy Perea MD Attending Provider Dr. Christy Perea MD Referring Provider Nishant INTERIOR PLANT CARETAKER-CBecca Attending Provider [phone] Nishant INTERIOR PLANT CARETAKER-CBecca Referring Provider Dr. Juan F Curran DO Referring Provider Dr. Juan F Curran DO Emergency Provider Genia Chappell MD Primary Care Provider [phone] Dr. Orlando Bolden DO Admit Provider Unavail able Dr. Orlando Bolden DO Other Provider Unavail able Zia NORRIS, Dr. Cindi Peterson Attending Provider Dr. Chai Rider DO Other Provider Sherwin NORRIS, Dr. Tariq Attending Provider Dr. Chai Rider DO Attending Provider [phone] Zia NORRIS, Dr. Cindi Peterson Other Provider Nina CASTANEDA, Dr. Suárez Attending Provider Dr. Jose Armando Wood DO Emergency Provider Genia Chappell MD Attending Provider Roc NORRIS, Dr. Mitchell Winkler Referring Provider Genia Chappell MD Referring Provider Angel NORRIS, Dr. Escamilla Emergency Provider de Joel CASTANEDA, Dr. Nielsen Referring Provider Unav ailable Roc NORRIS, Dr. Mitchell Winkler Other Provider Mandy NORRIS, Dr. Geoff Beal Attending Provider Jarrell NORRIS, Dr. Rogers Other Provider Jarrell NORRIS, Dr. Rogers Attending Provider Mandy NORRIS, Dr. Geoff Beal Other Provider Roc NORRIS, Dr. Mitchell Winkler Attending Provider [phone] Allergies Allergy Classification Reported Allergen(s) Allergy Type Date of Onset Reaction(s) Facility (20 sources) house dust allergenic extract Drug Allergy 03-31-2022 Unknown [facility] (20 sources) Mold Extract Drug Allergy 03-31-2022 [facility] Work Phone: (15 sources) Feather; Translations: [feathers] Drug Allergy 06-30-2022 [facility] Work Phone: (5 sources) House dust mite Allergy to substance 06-30-2022 [facility] Work Phone: (1 source) house dust allergenic extract Drug Allergy 04-30-2025 [facility] (1 source) Mold Extract Drug Allergy 04-30-2025 [facility] Medications Current Medications Medication Drug Class(es) Dates Sig (Normalized) Sig (Original) [id number] actuat albuterol 0.09 mg/actuat metered dose inhaler (20 sources) beta2-Adrenergic Agonist Start: 02-13-2024 Start: 02-13-2024 Albuterol Sulf ate 90 mcg/actuation HFA aerosol inhaler Active 2 [...] 0 06/30/2022 Active Start: 10-20-2018 End: 02-13-2024 Start: 10-20-2018 End: 02-13-2024 Albuterol Sulfate 90 [...] 20, 2018 2:46pm Start: 09-07-2018 End: 10-20-2018 Start: 09-07-2018 End: 10-20-2018 Albuterol Sulfate 90 [...] tablet (20 sources) Factor Xa Inhibitor Start: 01-21-2024 End: 02-16-2025 Start: 01-21-2024 End: 02-19-2024 take 2 tablets by mouth twice daily, then take 1 tablet by mouth twice daily Apixaban (Eliquis) 5 mg tablet Discontinued 5 mg PO TWICE A DAY 74 January 21, 2024 1:00am February 19, 2024 11:25am 10 mg twice a day for the first week. Then 5 mg twice a day. 24 hr dilTIAZem hydrochlorid e 240 mg extended release oral capsule (20 sources) Calcium Channel Garret Start: 02-19-2024 Start: 01-21-2024 End: 02-19-2024 DULoxetine 60 mg delayed release oral capsule (9 sources) Serotonin and Norepinephrine Reuptake Inhibitor Start: 09-30-2024 fluticasone propionate 0.05 mg/actuat metered dose nasal spray (20 sources) Corticosteroid Start: 07-08-2023 End: 03-19-2025 Start: 07-08-2023 Fluticasone Pr opionate Active 2 SPRAY INTRANASAL AT BEDTIME July 08, 2023 12:00am Wjkpydvezef-Llpyeotbj-Koycxj er (20 sources) Start: 07-08-2023 Start: 07-08-2023 Fluticasone-Um eclidin-Vilanter (Trelegy Ellipta) 200-62.5-25 [...] 08, 2023 12:00am levoFLOXacin 500 mg oral tab let (3 sources) Quinolone Antimicrobial Start: 04-10-2025 metoprolol tartrate 50 mg or al tablet (20 sources) beta-Adrenergic Garret Start: 10-09-2024 Start: 02-19-2024 End: 10-09-2024 Start: 02-19-2024 End: 09-19-2024 take 1 tablet by mouth twice daily Metoprolol Tartrate 25 mg tablet Discontinued 25 mg PO TWICE A DAY February 19, 2024 12:00am September 19, 2024 1:54pm montelukast 10 mg oral table t (20 sources) Leukotriene Receptor Antagonist Start: 09-07-2018 Comment on above: Take 1 tablet by zulema daily at bedtime. potassium chloride 20 meq extended release oral tablet (11 sources) Start: 05-07-2024 End: 04-24-2025 rimegepant 75 mg disintegrat ing oral tablet (20 sources) Start: 07-08-2023 Completed/Discontinued Medications Medication Drug Class(es) Dates Sig (Normalized) Sig (Original) acetaminophen 300 mg / HYDROcodone bitartrate 5 mg oral tablet (9 sources) Opioid Agonist Start: 08-17-2024 End: 09-30-2024 Start: 08-17-2024 End: 09-30-2024 Hydrocodone-Acetaminophen 5- 300 mg tablet Discontinued 1 {tbl} PO Q4H as needed for pain 15 05August 17, 2024 September 30, 2024 3:16pm aspirin 81 mg chewable tablet (20 sources) Platelet Aggregation Inhibitor, Nonsteroidal Anti-inflammatory Drug Start: 04-08-2024 End: 05-07-2024 Start: 02-13-2024 End: 02-19-2024 Start: 06-30-2022 take 1 tablet by mouth once da jennifer aspirin, enteric coated (ECOTRIN LOW STRENGTH) 81 mg EC tablet Take 1 tablet by mouth once daily. 0 06/30/2022 Active Start: 10-20-2018 End: 02-13-2024 Comment on above: Take 1 tablet by zulema once daily. azithromycin 250 mg oral tablet (20 sources) Macrolide Antimicrobial Start: 10-01-2024 End: 10-28-2024 Azithromycin 250 mg tablet Discontinued 250 mg PO As Directed October 01, 2024 1:00am October 28, 2024 3:21pm Start: 07-10-2023 End: 01-21-2024 benzonatate 200 mg oral caps ule (20 sources) Non-narcotic Antitussive Start: 11-14-2018 End: 05-12-2021 calcium carbonate 1250 mg or al tablet (20 sources) Start: 09-07-2018 End: 09-30-2024 cephalexin 500 mg oral capsu le (20 sources) Cephalosporin Antibacterial Start: 03-31-2022 End: 04-10-2022 Start: 10-03-2021 End: 10-13-2021 Start: 07-28-2021 End: 08-10-2021 Start: 07-28-2021 End: 08-10-2021 take 1 capsule by mouth every eight hours Cephalexin 500 mg capsule Discontinued 500 mg PO Q8H July 28, 2021 12:00am August 10, 2021 2:49pm cetirizine hydrochloride 10 mg oral tablet (20 sources) Histamine-1 Receptor Antagonist Start: 07-08-2023 End: 04-06-2025 citalopram 10 mg oral tablet (20 sources) Serotonin Reuptake Inhibitor Start: 09-07-2018 End: 10-20-2018 clindamycin 300 mg oral caps ule (20 sources) Lincosamide Antibacterial Start: 11-21-2021 End: 03-31-2022 Start: 12-02-2020 End: 08-10-2021 cyclobenzaprine hydrochlorid e 10 mg oral tablet (20 sources) Muscle Relaxant Start: 02-27-2019 End: 08-10-2021 Start: 02-27-2019 End: 08-10-2021 take 1 tablet [...] 30, 2024 3:15pm Start: 10-20-2018 End: 02-13-2024 Start: 10-20-2018 End: 02-13-2024 take 2 tablets by mouth at bedtime Escitalopram Oxalate 5 mg tablet Discontinued 10 mg PO AT BEDTIME October 20, 2018 1:00am February 13, 2024 12:48pm Start: 10-20-2018 End: 02-13-2024 take 10 mg by mouth at bedtime Escitalopram Oxalate Di scontinued 10 MG PO AT BEDTIME October 20, 2018 1:00am February 13, 2024 12:48pm 30 actuat fluticasone furoat e 0.1 mg/actuat / vilanterol 0.025 mg/actuat dry powder inhaler (20 sources) Corticosteroid, beta2-Adrenergic Agonist Start: 10-20-2018 End: 07-08-2023 Start: 10-20-2018 End: 07-08-2023 Fluticasone Furoate-Vilanter ol [...] 07, 2018 8:55pm Start: 09-07-2018 End: 07-10-2023 Start: 09-07-2018 End: 07-10-2023 Fluticasone Furoate-Vilanter ol [...] oral tablet (20 sources) Loop Diuretic Start: 03-19-2025 End: 04-10-2025 Start: 05-07-2024 End: 04-10-2025 Start: 05-07-2024 End: 03-19-2025 take 1 tablet by mouth once daily in the morning Furosemide 40 mg tablet Discontinued 40 mg PO EVERY MORNING May 07, 2024 12:00am March 19, 2025 9:45pm loratadine 10 mg oral tablet (20 sources) Start: 06-30-2022 take 1 tablet by mouth once daily as needed loratadine (CLARITIN) 10 mg tablet Take 1 tablet by mouth once daily as needed (for allergy symptoms.). 0 06/30/2022 Active Start: 09-07-2018 End: 07-08-2023 Comment on above: Take 1 tablet by zulema th once daily as needed (for allergy symptoms.). modafinil 100 mg oral tablet (9 sources) Sympathomimetic-like Agent Start: 10-01-2024 End: 03-19-2025 omeprazole 40 mg delayed rel ease oral capsule (9 sources) Proton Pump Inhibitor Start: 05-07-2024 End: 12-04-2024 pantoprazole 40 mg delayed release oral tablet (20 sources) Proton Pump Inhibitor Start: 09-07-2018 End: 05-07-2024 Comment on above: Take 1 tablet by zulema th once daily. predniSONE 10 mg oral tablet (20 sources) Start: 04-10-2025 End: 04-30-2025 Start: 03-24-2025 End: 04-10-2025 Start: 10-01-2024 End: 10-28-2024 Start: 10-01-2024 End: 10-28-2024 Prednisone 20 mg tablet Discontinued mg PO October 01, 2024 1:00am October 28, 2024 3:22pm Start: 07-10-2023 End: 01-21-2024 Start: 07-10-2023 End: 01-21-2024 take 40 mg by mouth at breakfast Prednisone Discontinu ed 40 MG PO WITH BREAKFAST 6 3 July 10, 2023 12:00am January 21, 2024 5:54pm sulfamethoxazole 800 mg / trimethoprim 160 mg oral tablet (20 sources) Dihydrofolate Reductase Inhibitor Antibacterial, Sulfonamide Antimicrobial Start: 2021 End: 10-03-2021 Start: 2021 End: 10-03-2021 Sulfamethoxazole-Trimethopri m (Bactrim Ds) 800-160 mg tablet Discontinued 1 {tbl} PO TWICE A DAY 2021 12:00am October 03, 2021 3:42pm 7 actuat umeclidinium 0.0625 mg/actuat dry powder inhaler (20 sources) Anticholinergic Start: 06-30-2022 take 1 puff(s) by inhalation once daily umeclidinium (INCRUSE ELLIPTA) 62.5 mcg/actuation inhaler Inhale 1 Puff as instructed once daily. 0 06/30/2022 Active Start: 10-20-2018 take 62.5 ug by inha lation once daily Umeclidinium (Incruse Ellipta) 62.5 mcg/actuation blister with device Active 1 INH INHALATION DAILY October 20, 2018 2:42pm Start: 10-20-2018 End: 07-08-2023 Start: 10-20-2018 End: 07-08-2023 take 62.5 ug [...] 20, 2018 12:00am Start: 09-07-2018 End: 10-20-2018 Start: 09-07-2018 End: 10-20-2018 Umeclidinium 62.5 MC blister with device Discontinued 2 NMA INHALATION DAILY September 07, 2018 12:00am October 20, 2018 2:46pm Start: 09-07-2018 End: 10-20-2018 take 1 puff(s) by inhalation once daily Umeclidinium Discontinued 2 PUFF INHALATION DAILY September 07, 2018 12:00am October 20, 2018 2:46pm Comment on above: Inhale 1 Puff as ins tructed once daily. (2 sources) Start: 10-01-2024 End: 10-28-2024 Start: 02-13-2024 End: 09-30-2024 Problems Active Problems Problem Classification Problem Date Documented Da te Episodic/Chronic Cardiac dysrhythmias (20 sources) Atrial fibrillation with rapid ventricular response; Translations: [Unspecified atrial fibrillation] Onset: 04-05-2025 01-21-2024 Chronic Cardiac dysrhythmias (13 sources) Tachycardia; Translations: [Tachycardia, unspecified] 02-13-2024 Episodic Chronic obstructive pulmonary disease and bronchiectasis (20 sources) Severe chronic obstructive pulmonary disease; Translations: [Chronic obstructive pulmonary disease, unspecified] Onset: 04-03-2025 Chronic Chronic obstructive pulmonary disease and bronchiectasis (20 sources) Bronchitis; Translations: [Bronchitis, not specified as acute or chronic] 11-14-2018 Episodic Congestive heart failure; nonhypertensive (20 sources) Congestive heart failure; Translations: [Heart failure, unspecified] Onset: 03-25-2025 03-19-2025 Chronic Coronary atherosclerosis and other heart disease (20 sources) Coronary arteriosclerosis; Translations: [Atherosclerotic heart disease of [place] coronary artery without angina pectoris] Onset: 03-24-2025 05-07-2024 Chronic Diseases of white blood cells (11 sources) Leukocytosis; Translations: [Elevated white blood cell count, unspecified] Onset: 04-10-2025 04-05-2025 Chronic Disorders of lipid metabolism (9 sources) Hyperlipidemia; Translations: [Hyperlipidemia, unspecified] Onset: 03-23-2025 03-17-2025 Chronic E Codes: Fall (9 sources) Fall; Translations: [Unspecified fall, initial encounter] 08-25-2024 Episodic Essential hypertension (20 sources) Hypertensive disorder; Translations: [Essential (primary) hypertension] Onset: 04-30-2025 02-19-2024 Chronic Fluid and electrolyte disorders (10 sources) Lactic acidosis; Translations: [Lactic acidosis] 04-05-2025 Episodic Malaise and fatigue (1 source) Other fatigue; Translations: [Other fatigue] Onset: 02-16-2025 Episodic Other aftercare (9 sources) Long-term current use of diuretic; Translations: [Encounter for therapeutic drug level monitoring] 08-15-2024 Episodic Other aftercare (20 sources) Long-term current use of anticoagulant; Translations: [FDC (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 anticoagulants] 08-25-2024 Episodic Other aftercare (1 source) Encounter for therapeutic drug level monitoring; Translations: [Encounter for therapeutic drug level monitoring] Onset: 05-01-2025 Episodic Other aftercare (1 source) Other custodial (current) drug therapy; Translations: [Other custodial (current) drug therapy] Onset: 05-01-2025 Episodic Other aftercare (1 source) terminal worker (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 anticoagulants; Translations: [terminal worker (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 anticoagulants] Onset: 04-10-2025 Episodic Other circulatory disease (9 sources) H/O: atrial fibrillation; Translations: [Personal history [...] elbow] 08-15-2021 Episodic Other connective tissue disease (9 sources) Muscle pain; Translations: [Myalgia, unspecified site] 08-15-2024 Episodic Other lower respiratory disease (20 sources) Hypoxia; Translations: [Hypoxemia] 07-08-2023 Episodic Other lower respiratory disease (3 sources) Hypoxemia; Translations: [Hypoxemia] Onset: 04-30-2025 07-10-2023 Episodic Other lower respiratory disease (16 sources) Dyspnea; Translations: [Dyspnea, unspecified] 03-19-2025 Episodic Other lower respiratory disease (16 sources) Respiratory insufficiency; Translations: [Other abnormalities of breathing] 03-19-2025 Episodic Other lower respiratory disease (1 source) Shortness of breath; Translations: [Shortness of breath] Onset: 04-26-2025 Episodic Other lower respiratory disease (1 source) Other abnormalities of breathing; Translations: [Other abnormalities of breathing] Onset: 03-24-2025 Episodic Other nutritional; endocrine; and metabolic disorders (15 sources) Morbid obesity; Translations: [Morbid (severe) obesity due to excess calories] 02-19-2024 Chronic Other nutritional; endocrine; and metabolic disorders (6 sources) Morbid (severe) obesity due to excess calories; Translations: [Morbid obesity] Onset: 04-10-2025 02-19-2024 Chronic Other nutritional; endocrine; and metabolic disorders (20 sources) Body mass index 40+ - severely obese; Translations: [Morbid (severe) obesity due to excess calories] 03-19-2025 Chronic Other nutritional; endocrine; and metabolic disorders (10 sources) Alveolar hypoventilation; Translations: [Morbid (severe) obesity [...] caused by tuberculosis or sexually transmitted disease) (8 sources) Pericardial effusion; Translations: [Pericardial effusion] 04-06-2025 Episodic Pulmonary heart disease (2 sources) Secondary pulmonary hypertension; Translations: [Other secondary pulmonary hypertension] Chronic Residual codes; unclassified (15 sources) Sleep apnea; Translations: [Sleep apnea, unspecified] 02-19-2024 Chronic Residual codes; unclassified (5 sources) Sleep apnea, unspecified; Translations: [Unspecified sleep apnea] Onset: 04-30-2025 02-19-2024 Chronic Residual codes; unclassified (10 sources) Obstructive sleep apnea syndrome; Translations: [Obstructive sleep apnea (adult) (pediatric)] 04-05-2025 Chronic Residual codes; unclassified (1 source) Obstructive sleep apnea (adult) (pediatric); Translations: [Obstructive sleep apnea (adult) (pediatric)] Onset: 04-10-2025 Chronic Residual codes; unclassified (20 sources) Bilateral lower limb edema; Translations: [Localized edema] 03-17-2025 Episodic Residual codes; unclassified (2 sources) Edema; Translations: [Edema, unspecified] 04-21-2025 Episodic Residual codes; unclassified (2 sources) Localized edema; Translations: [Localized edema] Onset: 04-08-2025 Episodic Respiratory failure; insufficiency; arrest (adult) (8 sources) Chronic hypoxemic respiratory failure; Translations: [Chronic respiratory failure with hypoxia] Onset: 04-30-2025 04-02-2025 Chronic Respiratory failure; insufficiency; arrest (adult) (20 sources) Acute respiratory failure; Translations: [Acute respiratory failure with hypoxia] Onset: 04-10-2025 07-08-2023 Episodic Skin and subcutaneous tissue infections (20 sources) Cellulitis and abscess of face; Translations: [Cellulitis of face] 11-21-2021 Episodic Spondylosis; intervertebral disc disorders; other back problems (20 sources) Backache; Translations: [Dorsalgia, unspecified] 02-27-2019 Episodic Unclassified (7 sources) With Nurse Practioner Azael Unclassified (2 sources) Chronic atrial fibrillation, unspecified; Translations: [Chronic atrial fibrillation, unspecified] Onset: 04-10-2025 Unclassified (1 source) Other pericardial effusion (noninflammatory); Translations: [Other pericardial effusion (noninflammatory)] Onset: 04-10-2025 Unclassified (1 source) Acidosis, unspecified; Translations: [Acidosis, unspecified] Onset: 04-10-2025 Past or Other Problems Problem Classification Problem Date Documented Da te Episodic/Chronic Fracture of upper limb (13 sources) Fracture of left shoulder girdle, part [...] Test Name Value Interpretation Reference Range Facility Blood Gases by [facility] 025 Base excess Calc (Bld) [Moles/Vol] 19 mmol/L High -2 to +2 [facility] Comment on above: Performed By: #### L [id number] ####[facility] [id number] [facility] [place], [address] Blood Gas Type ART Normal [facility] Comment on above: Performed By: #### L 9000.0800 ####[facility] [address] [place], [address] CO2 [Moles/Vol] 44 mmol/L Normal [facility] Comment on above: Performed By: #### L 9000.0800 ####[facility] [address] [place], [address] FI02 4.0 Normal [facility] Comment on above: Performed By: #### L 9000.0800 ####[facility] [address] [place], [address] HCO3 (Bld) [Moles/Vol] 42.1 mmol/L High 22-26 [facility] Comment on above: Performed By: #### L 9000.0800 ####[facility] [address] [place], [address] Mode Not entered Normal [facility] Comment on above: Performed By: #### L 9000.0800 ####[facility] [address] [place], [address] O2 Delivery Dev Cannula Normal [facility] Comment on above: Performed By: #### L 9000.0800 ####[facility] [address] [place], [address] pCO2 54.1 mmHg High 35-45 [facility] Comment on above: Performed By: #### L 9000.0800 ####[facility] [address] [place], [address] pH (Bld) 7.50 [pH] High 7.35-7.45 [facility] Comment on above: Performed By: #### L 9000.0800 ####[facility] [address] [place], [address] PO2 120 mmHG High 75-100 [facility] Comment on above: Performed By: #### L 9000.0800 ####[facility] [address] [place], [address] SITE L Radial Normal [facility] Comment on above: Performed By: #### L 9000.0800 ####[facility] [address] [place], [address] SO2 99 Normal 95-99 [facility] Comment on above: Performed By: #### L 9000.0800 ####[facility] [address] [place], [address] Blood base excess determinat ionOrdered By: Mitchell Brian on 04-30-2025 Base excess Calc (BldV) [Moles/Vol] 19 mmol/L High -2-2 [facility] Blood bicarbonate measuremen tOrdered By: Mitchell Brian on 04-30-2025 HCO3 (Bld) [Moles/Vol] 42.1 mmol/L High 22-26 [facility] Cardiology Visit Reporton Cardiology Visit Report Normal [facility] Measurement, pHOrdered By: Ángel Brian on 04-30-2025 pH (Unsp spec) 7.50 [pH] High 7.35-7.45 [facility] No Panel InformationOrdered By: Mitchell Brian on 04-30-2025 ART [facility] L Radial [facility] Not entered [facility] Cannula [facility] Total carbon dioxide measure mentOrdered By: Mitchell Brian on 04-30-2025 CO2 [Moles/Vol] 44 mmol/L [facility] Absolute lymphocyte countOrd ered By: Becca Dillard on 04-21-2025 Lymphocytes Auto (Unsp spec) [#/Vol] 0.78 10*3/uL Low 0.83-4.51 [facility] Absolute neutrophil countOrd ered By: Becca Dillard on 04-21-2025 Neutrophils (Bld) [#/Vol] 13.2 10*3/uL High 2.0-7.7 [facility] Anion gap in Serum or Plasma Ordered By: Becca Dillard on 04-21-2025 Anion gap [Moles/Vol] 9 mmol/L 5-15 [facility] Automated lymphocyte count a s percentage of total leukocytesOrdered By: Becca Dillard on 04-21-2025 Lymphocytes/100 WBC Auto (Unsp spec) 5.2 % Low 19-41 [facility] BUN/creatinine ratioOrdered By: Becca Dillard on 04-21-2025 Urea nitrogen/Creatinine [Mass ratio] 21.5 mg/mg High 10-20 [facility] Basic Metabolic Profile (BMP )on 04-21-2025 BUN/CRE 21.5 RATIO High 10- [facility] Comment on above: Performed By: #### L 100.0100, L500.2500, L503.7505 ####[facility] [address] [place], [address] Calcium [Mass/Vol] 9.0 mg/dL Normal 7.6-11.0 [facility] Comment on above: Performed By: #### L 100.0100, L500.2500, L503.7505 ####[facility] [address] [place], [address] Chloride [Moles/Vol] 90 mmol/L Low 98-108 [facility] Comment on above: Performed By: #### L 100.0100, L500.2500, L503.7505 ####[facility] [address] [place], [address] CO2 [Moles/Vol] 41.5 mmol/L High 21.0-32.0 [facility] Comment on above: Performed By: #### L 100.0100, L500.2500, L503.7505 ####[facility] [address] [place], [address] Creatinine [Mass/Vol] 0.73 mg/dL Normal 0.70-1.20 [facility] Comment on above: Performed By: #### L 100.0100, L500.2500, L503.7505 ####[facility] [address] [place], [address] GAP 9 Normal 5-15 [facility] Comment on above: Performed By: #### L 100.0100, L500.2500, L503.7505 ####[facility] [address] [place], [address] GFR/1.73 sq M.predicted among non-blacks MDRD (S/P/Bld) [Vol rate/Area] 88 mL/min/{1.73_m2} Normal >60 [facility] Comment on above: Result Comment: mL/m in/1.73m2 CKD-EPI Creatinine Equation (2020) Performed By: #### L 100.0100, L500.2500, L503.7505 ####[facility] [address] [place], [address] Glucose [Mass/Vol] 167 mg/dL High 70-99 [facility] Comment on above: Performed By: #### L 100.0100, L500.2500, L503.7505 ####[facility] [address] [place], [address] Potassium [Moles/Vol] 4.4 mmol/L Normal 3.3-5.1 [facility] Comment on above: Performed By: #### L 100.0100, L500.2500, L503.7505 ####[facility] [address] [place], [address] Sodium [Moles/Vol] 140 mmol/L Normal 133-145 [facility] Comment on above: Performed By: #### L 100.0100, L500.2500, L503.7505 ####[facility] [address] [place], [address] Urea nitrogen [Mass/Vol] 16 mg/dL Normal 4-19 [facility] Comment on above: Performed By: #### L 100.0100, L500.2500, L503.7505 ####[facility] [address] [place], [address] Basophil percentageOrdered B y: Becca Dillard on 04-21-2025 Basophils/100 WBC (Bld) 0.2 % 0-1 [facility] CBC W/Diff, Automatedon 03-27 Absolute Lymph 0.78 X10 3/uL Low 0.83-4.51 [facility] Comment on above: Performed By: #### L 100.0100, L500.2500, L503.7505 ####[facility] [address] [place], [address] Absolute Neut 13.2 X10 3/uL High 2.0-7.7 [facility] Comment on above: Performed By: #### L 100.0100, L500.2500, L503.7505 ####[facility] [address] [place], [address] Basophils/100 WBC (Bld) 0.2 % Normal 0-1 [facility] Comment on above: Performed By: #### L 100.0100, L500.2500, L503.7505 ####[facility] [address] [place], [address] Eosinophils/100 WBC (Bld) 0.1 % Normal 0-5 [facility] Comment on above: Performed By: #### L 100.0100, L500.2500, L503.7505 ####[facility] [address] [place], [address] Erythrocyte distribution width (RBC) [Ratio] 15.9 % High 11.6-14.6 [facility] Comment on above: Performed By: #### L 100.0100, L500.2500, L503.7505 ####[facility] [address] [place], [address] Hematocrit (Bld) [Volume fraction] 37.0 % Normal 37-47 [facility] Comment on above: Performed By: #### L 100.0100, L500.2500, L503.7505 ####[facility] [address] [place], [address] Hemoglobin (Bld) [Mass/Vol] 11.4 g/dL Low 12.0-15.0 [facility] Comment on above: Performed By: #### L 100.0100, L500.2500, L503.7505 ####[facility] [address] [place], [address] IG% 1.100 High 0.0-0.9 [facility] Comment on above: Result Comment: IG% - Immature Granulocytes (promyelocytes, myelocytes andmetamyelocytes) > 1% indicates that a LEFT SHIFT is Present. Performed By: #### L 100.0100, L500.2500, L503.7505 ####[facility] [address] [place], [address] Lymphocytes/100 WBC (Bld) 5.2 % Low 19-41 [facility] Comment on above: Performed By: #### L 100.0100, L500.2500, L503.7505 ####[facility] [address] [place], [address] MCH (RBC) [Entitic mass] 29.1 pg Normal 27.0-32.0 [facility] Comment on above: Performed By: #### L 100.0100, L500.2500, L503.7505 ####[facility] [address] [place], [address] MCHC (RBC) [Mass/Vol] 30.8 g/dL Low 32-36 [facility] Comment on above: Performed By: #### L 100.0100, L500.2500, L503.7505 ####[facility] [address] [place], [address] MCV (RBC) [Entitic vol] 94.4 fL Normal 81-99 [facility] Comment on above: Performed By: #### L 100.0100, L500.2500, L503.7505 ####[facility] [address] [place], [address] Monocytes/100 WBC (Bld) 5.4 % Normal 0-10 [facility] Comment on above: Performed By: #### L 100.0100, L500.2500, L503.7505 ####[facility] [address] [place], [address] Neutrophils/100 WBC (Bld) 88.0 % High 47-70 [facility] Comment on above: Performed By: #### L 100.0100, L500.2500, L503.7505 ####[facility] [address] [place], [address] Nucleated RBC (Bld) [#/Vol] 0 10*3/uL Normal 0-5 [facility] Comment on above: Performed By: #### L 100.0100, L500.2500, L503.7505 ####[facility] [address] [place], [address] Platelet mean volume (Bld) [Entitic vol] 9.7 fL Normal 6.2-12.0 [facility] Comment on above: Performed By: #### L 100.0100, L500.2500, L503.7505 ####[facility] [address] [place], [address] Platelets (Bld) [#/Vol] 267 10*3/uL Normal 150-450 [facility] Comment on above: Performed By: #### L 100.0100, L500.2500, L503.7505 ####[facility] [address] [place], [address] RBC (Bld) [#/Vol] 3.92 10*6/uL Low 4.2-5.4 [facility] Comment on above: Performed By: #### L 100.0100, L500.2500, L503.7505 ####[facility] [address] [place], [address] RDW SD 55.5 fl High 35.1-43.9 [facility] Comment on above: Performed By: #### L 100.0100, L500.2500, L503.7505 ####[facility] [address] [place], [address] WBC (Bld) [#/Vol] 15.1 10*3/uL High 4.4-11.0 [facility] Comment on above: Performed By: #### L 100.0100, L500.2500, L503.7505 ####[facility] [address] [place], [address] Carbon dioxide, total [Moles /volume] in Central venous bloodOrdered By: Becca Dillard on 04-21-2025 CO2 [Moles/Vol] 41.5 mmol/L High 21.0-32.0 [facility] Chloride assayOrdered By: Sergio Dillard on 04-21-2025 Chloride [Moles/Vol] 90 mmol/L Low 98-108 [facility] Eosinophil percentageOrdered By: Becca Dillard on 04-21-2025 Eosinophils/100 WBC (Bld) 0.1 % 0-5 [facility] Erythrocyte distribution wid th ratioOrdered By: Becca Dillard on 04-21-2025 Erythrocyte distribution width (RBC) [Ratio] 15.9 % High 11.6-14.6 [facility] Erythrocyte distribution wid th standard deviationOrdered By: Becca Dillard on 04-21-2025 Erythrocyte distribution width (RBC) [Ratio] 55.5 fl High 35.1-43.9 [facility] Glomerular filtration rate ( GFR) estimation/1.73 sq m using serum, plasma, or whole bOrdered By: Becca Dillard on 04-21-2025 GFR/1.73 sq M.predicted among non-blacks MDRD (S/P/Bld) [Vol rate/Area] 88 mL/min/{1.73_m2} >60 [facility] Comment on above: mL/min/1.73m2 CKD-EP I Creatinine Equation (2020) Hematocrit Auto (Bld) [Volum e fraction]Ordered By: Becca Dillard on 04-21-2025 Hematocrit (Bld) [Volume fraction] 37.0 % 37-47 [facility] Hemoglobin measurementOrdere d By: Becca Dillard on 04-21-2025 Hemoglobin (Bld) [Mass/Vol] 11.4 g/dL Low 12.0-15.0 [facility] Immature granulocytes/100 WB C Auto (Bld)Ordered By: Becca Dillard on 04-21-2025 Immature granulocytes/100 WBC (Bld) 1.100 % High 0.0-0.9 [facility] Comment on above: IG% - Immature Granu locytes (promyelocytes, myelocytes and metamyelocytes) > 1% indicates that a LEFT SHIFT is Present. L503.7505on 04-21-2025 Natriuretic peptide B (Bld) [Mass/Vol] 771 pg/mL Normal <=900 [facility] Comment on above: Result Comment: Hear t Failure Unlikely: < 300 pg/mLHeart Failure Likely< 50 Years: > 450 pg/mL50-75 Years: > 900 pg/mL>75 Years: > 1800 pg/mL Performed By: #### L 100.0100, L500.2500, L503.7505 ####[facility] [address] [place], [address] MCV (mean corpuscular volume ) determinationOrdered By: Becca Dillard on 04-21-2025 MCV (RBC) [Entitic vol] 94.4 fL 81-99 [facility] Mean corpuscular hemoglobin (MCH) determinationOrdered By: Becca Dillard on 04-21-2025 MCH (RBC) [Entitic mass] 29.1 pg 27.0-32.0 [facility] Mean corpuscular hemoglobin concentration (MCHC) determinationOrdered By: Becca Dillard on 04-21-2025 MCHC (RBC) [Mass/Vol] 30.8 g/dL Low 32-36 [facility] Mean platelet volume determi nationOrdered By: Becca Dillard on 04-21-2025 Platelet mean volume (Bld) [Entitic vol] 9.7 fL 6.2-12.0 [facility] Monocyte percentageOrdered B y: Becca Dillard on 04-21-2025 Monocytes/100 WBC (Bld) 5.4 % 0-10 [facility] Natriuretic peptide.B prohor inessa N-Terminal [Mass/volume] in Serum or PlasmaOrdered By: Becca Dillard on 04-21-2025 Natriuretic peptide.B prohormone N-Terminal [Mass/Vol] 771 pg/mL <900 [facility] Comment on above: Heart Failure Unlike ly: < 300 pg/mLHeart Failure Likely< 50 Years: > 450 pg/mL50-75 Years: > 900 pg/mL>75 Years: > 1800 pg/mL Neutrophil percentageOrdered By: Becca Dillard on 04-21-2025 Neutrophils/100 WBC (Bld) 88.0 % High 47-70 [facility] Nucleated red blood cell per centageOrdered By: Becca Dillard on 04-21-2025 Nucleated RBC/100 WBC (Bld) [Ratio] 0 % 0-5 [facility] Platelet countOrdered By: Sergio Dillard on 04-21-2025 Platelets (Bld) [#/Vol] 267 10*3/uL 150-450 [facility] Potassium measurement (mass/ volume)Ordered By: Becca Dillard on 04-21-2025 Potassium (Unsp spec) [Mass/Vol] 4.4 mmol/L 3.3-5.1 [facility] RBC Auto (Bld) [#/Vol]Ordere d By: Becca Dillard on 04-21-2025 RBC (Bld) [#/Vol] 3.92 10*6/uL Low 4.2-5.4 [facility] Serum creatinine measurement (mass/volume)Ordered By: Becca Dillard on 04-21-2025 Creatinine [Mass/Vol] 0.73 mg/dL 0.70-1.20 [facility] Serum glucose measurement (m ass/volume)Ordered By: Becca Dillard on 04-21-2025 Glucose [Mass/Vol] 167 mg/dL High 70-99 [facility] Serum or plasma calcium diallo urement (mass/volume)Ordered By: Becca Dillard on 04-21-2025 Calcium [Mass/Vol] 9.0 mg/dL 7.6-11.0 [facility] Serum or plasma urea nitroge n measurement (mass/volume)Ordered By: Becca Dillard on 04-21-2025 Urea nitrogen [Mass/Vol] 16 mg/dL 4-19 [facility] Sodium levelOrdered By: Faith Dillard on 04-21-2025 Sodium [Moles/Vol] 140 mmol/L 133-145 [facility] White blood cell (WBC) count Ordered By: Becca Dillard on 04-21-2025 WBC (Bld) [#/Vol] 15.1 10*3/uL High 4.4-11.0 [facility] Culture, Blood (WB)on 2024 CUB Blood cultures x2, from two different sites No growth in 5 days. Normal [facility] Comment on above: Performed By: #### M 200.1000 ####[facility] [address] [place], [address] Absolute lymphocyte countOrd ered By: Heath Silva on 04-10-2025 Lymphocytes Auto (Unsp spec) [#/Vol] 0.82 10*3/uL Low 0.83-4.51 [facility] Absolute neutrophil countOrd ered By: Heath Silva on 04-10-2025 Neutrophils (Bld) [#/Vol] 19.1 10*3/uL High 2.0-7.7 [facility] Anion gap in Serum or Plasma Ordered By: Ken Vieyra on 04-10-2025 Anion gap [Moles/Vol] 7 mmol/L 5-15 [facility] Automated lymphocyte count a s percentage of total leukocytesOrdered By: Heath Silva on 04-10-2025 Lymphocytes/100 WBC Auto (Unsp spec) 3.8 % Low 19-41 [facility] BUN/creatinine ratioOrdered By: Ken Vieyra on 04-10-2025 Urea nitrogen/Creatinine [Mass ratio] 44.3 mg/mg High 10-20 [facility] Basic Metabolic Profile (BMP )on 04-10-2025 BUN/CRE 44.3 RATIO High 10-20 [facility] Comment on above: Performed By: #### L 500.2500 ####[facility] [address] [place], [address] Calcium [Mass/Vol] 8.9 mg/dL Normal 7.6-11.0 [facility] Comment on above: Performed By: #### L 500.2500 ####[facility] [address] [place], [address] Chloride [Moles/Vol] 89 mmol/L Low 98-108 [facility] Comment on above: Performed By: #### L 500.2500 ####[facility] [address] [place], [address] CO2 [Moles/Vol] 40.6 mmol/L High 21.0-32.0 [facility] Comment on above: Performed By: #### L 500.2500 ####[facility] [address] [place], [address] Creatinine [Mass/Vol] 0.79 mg/dL Normal 0.70-1.20 [facility] Comment on above: Performed By: #### L 500.2500 ####[facility] [address] [place], [address] ECRCL 76.43 ml/min Normal 50-250 [facility] Comment on above: Performed By: #### L 500.2500 ####[facility] [address] [place], [address] GAP 7 Normal 5-15 [facility] Comment on above: Performed By: #### L 500.2500 ####[facility] [address] [place], [address] GFR/1.73 sq M.predicted among non-blacks MDRD (S/P/Bld) [Vol rate/Area] 80 mL/min/{1.73_m2} Normal >60 [facility] Comment on above: Result Comment: mL/m in/1.73m2 CKD-EPI Creatinine Equation (2020) Performed By: #### L 500.2500 ####[facility] [address] [place], [address] Glucose [Mass/Vol] 107 mg/dL High 70-99 [facility] Comment on above: Performed By: #### L 500.2500 ####[facility] [address] [place], [address] Potassium [Moles/Vol] 4.0 mmol/L Normal 3.3-5.1 [facility] Comment on above: Performed By: #### L 500.2500 ####[facility] [address] [place], [address] Sodium [Moles/Vol] 136 mmol/L Normal 133-145 [facility] Comment on above: Performed By: #### L 500.2500 ####[facility] [address] [place], [address] Urea nitrogen [Mass/Vol] 35 mg/dL High 4-19 [facility] Comment on above: Performed By: #### L 500.2500 ####[facility] [address] [place], [address] Basophil percentageOrdered B y: Heath Silva on 04-10-2025 Basophils/100 WBC (Bld) 0.1 % 0-1 [facility] Bedside Glucoseon 04-10-2025 FINGERSTICK GLU 200 mg/dL High 74-106 [facility] Comment on above: Result Comment: MAURI GEMENT OF PATIENT CARE PER NURSING PROTOCOL Performed By: #### L 501.080 ####[facility] [address] [place], [address] FINGERSTICK GLU 109 mg/dL High 74-106 [facility] Comment on above: Result Comment: MAURI GEMENT OF PATIENT CARE PER NURSING PROTOCOL Performed By: #### L 501.080 ####[facility] [address] [place], [address] CBC W/Diff, Automatedon - Absolute Lymph 0.82 X10 3/uL Low 0.83-4.51 [facility] Comment on above: Performed By: #### L 100.0100 ####[facility] [address] [place], [address] Absolute Neut 19.1 X10 3/uL High 2.0-7.7 [facility] Comment on above: Performed By: #### L 100.0100 ####[facility] [address] [place], [address] Basophils/100 WBC (Bld) 0.1 % Normal 0-1 [facility] Comment on above: Performed By: #### L 100.0100 ####[facility] [address] [place], [address] Eosinophils/100 WBC (Bld) 0.0 % Normal 0-5 [facility] Comment on above: Performed By: #### L 100.0100 ####[facility] [address] [place], [address] Erythrocyte distribution width (RBC) [Ratio] 15.7 % High 11.6-14.6 [facility] Comment on above: Performed By: #### L 100.0100 ####[facility] [address] [place], [address] Hematocrit (Bld) [Volume fraction] 36.9 % Low 37-47 [facility] Comment on above: Performed By: #### L 100.0100 ####[facility] [address] [place], [address] Hemoglobin (Bld) [Mass/Vol] 11.6 g/dL Low 12.0-15.0 [facility] Comment on above: Performed By: #### L 100.0100 ####[facility] [address] [place], [address] IG% 0.700 Normal 0.0-0.9 [facility] Comment on above: Result Comment: IG% - Immature Granulocytes (promyelocytes, myelocytes andmetamyelocytes) > 1% indicates that a LEFT SHIFT is Present. Performed By: #### L 100.0100 ####[facility] [address] [place], [address] Lymphocytes/100 WBC (Bld) 3.8 % Low 19-41 [facility] Comment on above: Performed By: #### L 100.0100 ####[facility] [address] [place], [address] MCH (RBC) [Entitic mass] 28.3 pg Normal 27.0-32.0 [facility] Comment on above: Performed By: #### L 100.0100 ####[facility] [address] [place], [address] MCHC (RBC) [Mass/Vol] 31.4 g/dL Low 32-36 [facility] Comment on above: Performed By: #### L 100.0100 ####[facility] [address] [place], [address] MCV (RBC) [Entitic vol] 90.0 fL Normal 81-99 [facility] Comment on above: Performed By: #### L 100.0100 ####[facility] [address] [place], [address] Monocytes/100 WBC (Bld) 6.1 % Normal 0-10 [facility] Comment on above: Performed By: #### L 100.0100 ####[facility] [address] [place], [address] Neutrophils/100 WBC (Bld) 89.3 % High 47-70 [facility] Comment on above: Performed By: #### L 100.0100 ####[facility] [address] [place], [address] Nucleated RBC (Bld) [#/Vol] 0 10*3/uL Normal 0-5 [facility] Comment on above: Performed By: #### L 100.0100 ####[facility] [address] [place], [address] Platelet mean volume (Bld) [Entitic vol] 10.5 fL Normal 6.2-12.0 [facility] Comment on above: Performed By: #### L 100.0100 ####[facility] [address] [place], [address] Platelets (Bld) [#/Vol] 270 10*3/uL Normal 150-450 [facility] Comment on above: Performed By: #### L 100.0100 ####[facility] [address] [place], [address] RBC (Bld) [#/Vol] 4.10 10*6/uL Low 4.2-5.4 [facility] Comment on above: Performed By: #### L 100.0100 ####[facility] [address] [place], [address] RDW SD 51.3 fl High 35.1-43.9 [facility] Comment on above: Performed By: #### L 100.0100 ####[facility] [address] [place], [address] WBC (Bld) [#/Vol] 21.4 10*3/uL High 4.4-11.0 [facility] Comment on above: Performed By: #### L 100.0100 ####[facility] [address] [place], [address] Carbon dioxide, total [Moles /volume] in Central venous bloodOrdered By: Ken Vieyra on 04-10-2025 CO2 [Moles/Vol] 40.6 mmol/L High 21.0-32.0 [facility] Chloride assayOrdered By: Bel Vieyra on 04-10-2025 Chloride [Moles/Vol] 89 mmol/L Low 98-108 [facility] Discharge Instructionon 03-26 Discharge Instruction Normal [facility] Eosinophil percentageOrdered By: Heath Silva on 04-10-2025 Eosinophils/100 WBC (Bld) 0.0 % 0-5 [facility] Erythrocyte distribution wid th ratioOrdered By: Heath Silva on 04-10-2025 Erythrocyte distribution width (RBC) [Ratio] 15.7 % High 11.6-14.6 [facility] Erythrocyte distribution wid th standard deviationOrdered By: Heath Silva on 04-10-2025 Erythrocyte distribution width (RBC) [Ratio] 51.3 fl High 35.1-43.9 [facility] Glomerular filtration rate ( GFR) estimation/1.73 sq m using serum, plasma, or whole bOrdered By: Ken Vieyra on 04-10-2025 GFR/1.73 sq M.predicted among non-blacks MDRD (S/P/Bld) [Vol rate/Area] 80 mL/min/{1.73_m2} >60 [facility] Comment on above: mL/min/1.73m2 CKD-EP I Creatinine Equation (2020) [facility] deOrdered By: Geoff Galvan on 04-10-2025 Glucose [Mass/Vol] 200 mg/dL High 74-106 [facility] Comment on above: MANAGEMENT OF PATIEN T CARE PER NURSING PROTOCOL Hematocrit Auto (Bld) [Volum e fraction]Ordered By: Heath Silva on 04-10-2025 Hematocrit (Bld) [Volume fraction] 36.9 % Low 37-47 [facility] Hemoglobin measurementOrdere d By: Heath Silva on 04-10-2025 Hemoglobin (Bld) [Mass/Vol] 11.6 g/dL Low 12.0-15.0 [facility] Immature granulocytes/100 WB C Auto (Bld)Ordered By: Heath Silva on 04-10-2025 Immature granulocytes/100 WBC (Bld) 0.700 % 0.0-0.9 [facility] Comment on above: IG% - Immature Granu locytes (promyelocytes, myelocytes and metamyelocytes) > 1% indicates that a LEFT SHIFT is Present. MCV (mean corpuscular volume ) determinationOrdered By: Heath Silva on 04-10-2025 MCV (RBC) [Entitic vol] 90.0 fL 81-99 [facility] Mean corpuscular hemoglobin (MCH) determinationOrdered By: Heath Silva on 04-10-2025 MCH (RBC) [Entitic mass] 28.3 pg 27.0-32.0 [facility] Mean corpuscular hemoglobin concentration (MCHC) determinationOrdered By: Heath Silva on 04-10-2025 MCHC (RBC) [Mass/Vol] 31.4 g/dL Low 32-36 [facility] Mean platelet volume determi nationOrdered By: Heath Silva on 04-10-2025 Platelet mean volume (Bld) [Entitic vol] 10.5 fL 6.2-12.0 [facility] Monocyte percentageOrdered B y: Heath Silva on 04-10-2025 Monocytes/100 WBC (Bld) 6.1 % 0-10 [facility] Neutrophil percentageOrdered By: Heath Silva on 04-10-2025 Neutrophils/100 WBC (Bld) 89.3 % High 47-70 [facility] Nucleated red blood cell per centageOrdered By: Heath Silva on 04-10-2025 Nucleated RBC/100 WBC (Bld) [Ratio] 0 % 0-5 [facility] Platelet countOrdered By: Toshia Silva on 04-10-2025 Platelets (Bld) [#/Vol] 270 10*3/uL 150-450 [facility] Potassium measurement (mass/ volume)Ordered By: Ken Vieyra on 04-10-2025 Potassium (Unsp spec) [Mass/Vol] 4.0 mmol/L 3.3-5.1 [facility] RBC Auto (Bld) [#/Vol]Ordere d By: Heath Silva on 04-10-2025 RBC (Bld) [#/Vol] 4.10 10*6/uL Low 4.2-5.4 [facility] Serum creatinine measurement (mass/volume)Ordered By: Ken Vieyra on 04-10-2025 Creatinine [Mass/Vol] 0.79 mg/dL 0.70-1.20 [facility] Serum glucose measurement (m ass/volume)Ordered By: Ken Vieyra on 04-10-2025 Glucose [Mass/Vol] 107 mg/dL High 70-99 [facility] Serum or plasma calcium diallo urement (mass/volume)Ordered By: Ken Vieyra on 04-10-2025 Calcium [Mass/Vol] 8.9 mg/dL 7.6-11.0 [facility] Serum or plasma urea nitroge n measurement (mass/volume)Ordered By: Ken Vieyra on 04-10-2025 Urea nitrogen [Mass/Vol] 35 mg/dL High 4-19 [facility] Sodium levelOrdered By: Anton Vieyra on 04-10-2025 Sodium [Moles/Vol] 136 mmol/L 133-145 [facility] White blood cell (WBC) count Ordered By: Heath Silva on 04-10-2025 WBC (Bld) [#/Vol] 21.4 10*3/uL High 4.4-11.0 [facility] Basic Metabolic Profile (BMP )on 04-09-2025 BUN/CRE 46.9 RATIO High 10-20 [facility] Comment on above: Performed By: #### L 500.2500 ####[facility] [address] [place], [address] Calcium [Mass/Vol] 9.1 mg/dL Normal 7.6-11.0 [facility] Comment on above: Performed By: #### L 500.2500 ####[facility] [address] [place], [address] Chloride [Moles/Vol] 91 mmol/L Low 98-108 [facility] Comment on above: Performed By: #### L 500.2500 ####[facility] [address] [place], [address] CO2 [Moles/Vol] 40.6 mmol/L High 21.0-32.0 [facility] Comment on above: Performed By: #### L 500.2500 ####[facility] [address] [place], [address] Creatinine [Mass/Vol] 0.67 mg/dL Low 0.70-1.20 [facility] Comment on above: Performed By: #### L 500.2500 ####[facility] [address] [place], [address] ECRCL 76.39 ml/min Normal 50-250 [facility] Comment on above: Performed By: #### L 500.2500 ####[facility] [address] [place], [address] GAP 7 Normal 5-15 [facility] Comment on above: Performed By: #### L 500.2500 ####[facility] [address] [place], [address] GFR/1.73 sq M.predicted among non-blacks MDRD (S/P/Bld) [Vol rate/Area] 93 mL/min/{1.73_m2} Normal >60 [facility] Comment on above: Result Comment: mL/m in/1.73m2 CKD-EPI Creatinine Equation (2020) Performed By: #### L 500.2500 ####[facility] [address] [place], [address] Glucose [Mass/Vol] 134 mg/dL High 70-99 [facility] Comment on above: Performed By: #### L 500.2500 ####[facility] [address] [place], [address] Potassium [Moles/Vol] 4.0 mmol/L Normal 3.3-5.1 [facility] Comment on above: Performed By: #### L 500.2500 ####[facility] [address] [place], [address] Sodium [Moles/Vol] 139 mmol/L Normal 133-145 [facility] Comment on above: Performed By: #### L 500.2500 ####[facility] [address] [place], [address] Urea nitrogen [Mass/Vol] 32 mg/dL High 4-19 [facility] Comment on above: Performed By: #### L 500.2500 ####[facility] [address] [place], [address] Bedside Glucoseon 04-09-2025 FINGERSTICK GLU 242 mg/dL High 74-106 [facility] Comment on above: Result Comment: MAURI GEMENT OF PATIENT CARE PER NURSING PROTOCOL Performed By: #### L 501.080 ####[facility] [address] [place], [address] FINGERSTICK GLU 91 mg/dL Normal 74-106 [facility] Comment on above: Result Comment: MAURI GEMENT OF PATIENT CARE PER NURSING PROTOCOL Performed By: #### L 501.080 ####[facility] [address] [place], [address] FINGERSTICK GLU 277 mg/dL High 74-106 [facility] Comment on above: Result Comment: MAURI GEMENT OF PATIENT CARE PER NURSING PROTOCOL Performed By: #### L 501.080 ####[facility] [address] [place], [address] FINGERSTICK GLU 157 mg/dL High -[address] [place] [address] Comment on above: Result Comment: MAURI GEMENT OF PATIENT CARE PER NURSING PROTOCOL Performed By: #### L 501.080 ####[facility] [address] [place], [address] FINGERSTICK GLU 239 mg/dL High -[address] [place] [address] Comment on above: Result Comment: MAURI GEMENT OF PATIENT CARE PER NURSING PROTOCOL Performed By: #### L 501.080 ####[facility] [address] [place], [address] CBC W/Diff, Automatedon 05- Absolute Lymph 0.37 X10 3/uL Low 0.83-4.51 [facility] Comment on above: Performed By: #### L 100.0100 ####[facility] [address] [place], [address] Absolute Neut 19.4 X10 3/uL High 2.0-7.7 [facility] Comment on above: Performed By: #### L 100.0100 ####[facility] [address] [place], [address] Basophils/100 WBC (Bld) 0.1 % Normal 0-1 [facility] Comment on above: Performed By: #### L 100.0100 ####[facility] [address] [place], [address] Eosinophils/100 WBC (Bld) 0.0 % Normal 0-5 [facility] Comment on above: Performed By: #### L 100.0100 ####[facility] [address] [place], [address] Erythrocyte distribution width (RBC) [Ratio] 15.9 % High 11.6-14.6 [facility] Comment on above: Performed By: #### L 100.0100 ####[facility] [address] [place], [address] Hematocrit (Bld) [Volume fraction] 39.9 % Normal 37-47 [facility] Comment on above: Performed By: #### L 100.0100 ####[facility] [address] [place], [address] Hemoglobin (Bld) [Mass/Vol] 12.5 g/dL Normal 12.0-15.0 [facility] Comment on above: Performed By: #### L 100.0100 ####[facility] [address] [place], [address] IG% 0.700 Normal 0.0-0.9 [facility] Comment on above: Result Comment: IG% - Immature Granulocytes (promyelocytes, myelocytes andmetamyelocytes) > 1% indicates that a LEFT SHIFT is Present. Performed By: #### L 100.0100 ####[facility] [address] [place], [address] Lymphocytes/100 WBC (Bld) 1.8 % Low 19-41 [facility] Comment on above: Performed By: #### L 100.0100 ####[facility] [address] [place], [address] MCH (RBC) [Entitic mass] 28.8 pg Normal 27.0-32.0 [facility] Comment on above: Performed By: #### L 100.0100 ####[facility] [address] [place], [address] MCHC (RBC) [Mass/Vol] 31.3 g/dL Low 32-36 [facility] Comment on above: Performed By: #### L 100.0100 ####[facility] [address] [place], [address] MCV (RBC) [Entitic vol] 91.9 fL Normal 81-99 [facility] Comment on above: Performed By: #### L 100.0100 ####[facility] [address] [place], [address] Monocytes/100 WBC (Bld) 3.3 % Normal 0-10 [facility] Comment on above: Performed By: #### L 100.0100 ####[facility] [address] [place], [address] Neutrophils/100 WBC (Bld) 94.1 % High 47-70 [facility] Comment on above: Performed By: #### L 100.0100 ####[facility] [address] [place], [address] Nucleated RBC (Bld) [#/Vol] 0 10*3/uL Normal 0-5 [facility] Comment on above: Performed By: #### L 100.0100 ####[facility] [address] [place], [address] Platelet mean volume (Bld) [Entitic vol] 10.0 fL Normal 6.2-12.0 [facility] Comment on above: Performed By: #### L 100.0100 ####[facility] [address] [place], [address] Platelets (Bld) [#/Vol] 259 10*3/uL Normal 150-450 [facility] Comment on above: Performed By: #### L 100.0100 ####[facility] [address] [place], [address] RBC (Bld) [#/Vol] 4.34 10*6/uL Normal 4.2-5.4 [facility] Comment on above: Performed By: #### L 100.0100 ####[facility] [address] [place], [address] RDW SD 52.8 fl High 35.1-43.9 [facility] Comment on above: Performed By: #### L 100.0100 ####[facility] [address] [place], [address] WBC (Bld) [#/Vol] 20.6 10*3/uL High 4.4-11.0 [facility] Comment on above: Performed By: #### L 100.0100 ####[facility] [address] [place], [address] Anion gap in Serum or Plasma Ordered By: Ken Vieyra on 04-08-2025 Anion gap [Moles/Vol] 9 mmol/L - [facility] BUN/creatinine ratioOrdered By: Ken Vieyra on 04-08-2025 Urea nitrogen/Creatinine [Mass ratio] 40.4 mg/mg High 09-14 [facility] Basic Metabolic Profile (BMP )on 04-08-2025 BUN/CRE 40.4 RATIO High 09-14 [facility] Comment on above: Performed By: #### L 500.2500 ####[facility] [address] [place], [address] Calcium [Mass/Vol] 8.9 mg/dL Normal 7.6-11.0 [facility] Comment on above: Performed By: #### L 500.2500 ####[facility] [address] [place], [address] Chloride [Moles/Vol] 87 mmol/L Low 98-108 [facility] Comment on above: Performed By: #### L 500.2500 ####[facility] [address] [place], [address] CO2 [Moles/Vol] 43.6 mmol/L High 21.0-32.0 [facility] Comment on above: Performed By: #### L 500.2500 ####[facility] [address] [place], [address] Creatinine [Mass/Vol] 0.82 mg/dL Normal 0.70-1.20 [facility] Comment on above: Performed By: #### L 500.2500 ####[facility] [address] [place], [address] ECRCL 74.56 ml/min Normal 50-250 [facility] Comment on above: Performed By: #### L 500.2500 ####[facility] [address] [place], [address] GAP 9 Normal 5-15 [facility] Comment on above: Performed By: #### L 500.2500 ####[facility] [address] [place], [address] GFR/1.73 sq M.predicted among non-blacks MDRD (S/P/Bld) [Vol rate/Area] 77 mL/min/{1.73_m2} Normal >60 [facility] Comment on above: Result Comment: mL/m in/1.73m2 CKD-EPI Creatinine Equation (2020) Performed By: #### L 500.2500 ####[facility] [address] [place], [address] Glucose [Mass/Vol] 149 mg/dL High 70-99 [facility] Comment on above: Performed By: #### L 500.2500 ####[facility] [address] [place], [address] Potassium [Moles/Vol] 2.8 mmol/L Low 3.3-5.1 [facility] Comment on above: Performed By: #### L 500.2500 ####[facility] [address] [place], [address] Sodium [Moles/Vol] 139 mmol/L Normal 133-145 [facility] Comment on above: Performed By: #### L 500.2500 ####[facility] [address] [place], [address] Urea nitrogen [Mass/Vol] 33 mg/dL High 4-19 [facility] Comment on above: Performed By: #### L 500.2500 ####[facility] [address] [place], [address] Bedside Glucoseon 04-08-2025 FINGERSTICK GLU 81 mg/dL Normal 74-106 [facility] Comment on above: Result Comment: MAURI GEMENT OF PATIENT CARE PER NURSING PROTOCOL Performed By: #### L 501.080 ####[facility] [address] [place], [address] FINGERSTICK GLU 175 mg/dL High 74-106 [facility] Comment on above: Result Comment: MAURI GEMENT OF PATIENT CARE PER NURSING PROTOCOL Performed By: #### L 501.080 ####[facility] [address] [place], [address] FINGERSTICK GLU 289 mg/dL High 74-106 [facility] Comment on above: Result Comment: MAURI GEMENT OF PATIENT CARE PER NURSING PROTOCOL Performed By: #### L 501.080 ####[facility] [address] [place], [address] Blood Gases by [facility] 025 Results To de joel Normal [facility] Comment on above: Performed By: #### L 9000.0800 ####[facility] [address] [place], [address] Carbon dioxide, total [Moles /volume] in Central venous bloodOrdered By: Ken Vieyra on 04-08-2025 CO2 [Moles/Vol] 43.6 mmol/L High 21.0-32.0 [facility] Chloride assayOrdered By: Bel Vieyra on 04-08-2025 Chloride [Moles/Vol] 87 mmol/L Low 98-108 [facility] Glomerular filtration rate ( GFR) estimation/1.73 sq m using serum, plasma, or whole bOrdered By: Ken Vieyra on 04-08-2025 GFR/1.73 sq M.predicted among non-blacks MDRD (S/P/Bld) [Vol rate/Area] 77 mL/min/{1.73_m2} >60 [facility] Comment on above: mL/min/1.73m2 CKD-EP I Creatinine Equation (2020) [facility] deOrdered By: Ken Vieyra on 04-08-2025 Glucose [Mass/Vol] 289 mg/dL High 74-106 [facility] Comment on above: MANAGEMENT OF PATIEN T CARE PER NURSING PROTOCOL Magnesiumon 04-08-2025 Magnesium [Mass/Vol] 2.5 mg/dL High 1.5-2.2 [facility] Comment on above: Performed By: #### L 501.2300, L501.5200 ####[facility] [address] [place], [place], [address] Magnesium measurement (mass/ volume)Ordered By: Ken Vieyra on 04-08-2025 Magnesium (Unsp spec) [Mass/Vol] 2.5 mg/dL High 1.5-2.2 [facility] Phosphoruson 04-08-2025 Phosphate [Mass/Vol] 4.4 mg/dL Normal 2.7-4.5 [facility] Comment on above: Performed By: #### L 501.2300, L501.5200 ####[facility] [address] [place], [address] Potassium measurement (mass/ volume)Ordered By: Kne Vieyra on 04-08-2025 Potassium (Unsp spec) [Mass/Vol] 2.8 mmol/L Low 3.3-5.1 [facility] Serum creatinine measurement (mass/volume)Ordered By: Ken Vieyra on 04-08-2025 Creatinine [Mass/Vol] 0.82 mg/dL 0.70-1.20 [facility] Serum glucose measurement (m ass/volume)Ordered By: Ken Vieyra on 04-08-2025 Glucose [Mass/Vol] 149 mg/dL High 70-99 [facility] Serum or plasma calcium diallo urement (mass/volume)Ordered By: Ken Vierya on 04-08-2025 Calcium [Mass/Vol] 8.9 mg/dL 7.6-11.0 [facility] Serum or plasma urea nitroge n measurement (mass/volume)Ordered By: Ken Vieyra on 04-08-2025 Urea nitrogen [Mass/Vol] 33 mg/dL High 4-19 [facility] Sodium levelOrdered By: Anton Vieyra on 04-08-2025 Sodium [Moles/Vol] 139 mmol/L 133-145 [facility] Absolute lymphocyte countOrd ered By: Ken Vieyra on 04-07-2025 Lymphocytes Auto (Unsp spec) [#/Vol] 0.46 10*3/uL Low 0.83-4.51 [facility] Absolute neutrophil countOrd ered By: Ken Vieyra on 04-07-2025 Neutrophils (Bld) [#/Vol] 30.0 10*3/uL High 2.0-7.7 [facility] Automated lymphocyte count a s percentage of total leukocytesOrdered By: Ken Vieyra on 04-07-2025 Lymphocytes/100 WBC Auto (Unsp spec) 1.4 % Low 19-41 [facility] Basic Metabolic Profile (BMP )on 04-07-2025 BUN/CRE 31.1 RATIO High 10-20 [facility] Comment on above: Performed By: #### L 500.2500, L100.0100 ####[facility] [address] [place], [address] Calcium [Mass/Vol] 9.4 mg/dL Normal 7.6-11.0 [facility] Comment on above: Performed By: #### L 500.2500, L100.0100 ####[facility] [address] [place], [address] Chloride [Moles/Vol] 88 mmol/L Low 98-108 [facility] Comment on above: Performed By: #### L 500.2500, L100.0100 ####[facility] [address] [place], [address] CO2 [Moles/Vol] 41.0 mmol/L High 21.0-32.0 [facility] Comment on above: Performed By: #### L 500.2500, L100.0100 ####[facility] [address] [place], [address] Creatinine [Mass/Vol] 1.07 mg/dL Normal 0.70-1.20 [facility] Comment on above: Performed By: #### L 500.2500, L100.0100 ####[facility] [address] [place], [address] ECRCL 57.45 ml/min Normal 50-250 [facility] Comment on above: Performed By: #### L 500.2500, L100.0100 ####[facility] [address] [place], [address] GAP 12 Normal 5-15 [facility] Comment on above: Performed By: #### L 500.2500, L100.0100 ####[facility] [address] [place], [address] GFR/1.73 sq M.predicted among non-blacks MDRD (S/P/Bld) [Vol rate/Area] 56 mL/min/{1.73_m2} Low >60 [facility] Comment on above: Result Comment: mL/m in/1.73m2 CKD-EPI Creatinine Equation (2020) Performed By: #### L 500.2500, L100.0100 ####[facility] [address] [place], [address] Glucose [Mass/Vol] 187 mg/dL High 70-99 [facility] Comment on above: Performed By: #### L 500.2500, L100.0100 ####[facility] [address] [place], [address] Potassium [Moles/Vol] 3.5 mmol/L Normal 3.3-5.1 [facility] Comment on above: Performed By: #### L 500.2500, L100.0100 ####[facility] [address] [place], [address] Sodium [Moles/Vol] 141 mmol/L Normal 133-145 [facility] Comment on above: Performed By: #### L 500.2500, L100.0100 ####[facility] [address] [place], [address] Urea nitrogen [Mass/Vol] 33 mg/dL High 4-19 [facility] Comment on above: Performed By: #### L 500.2500, L100.0100 ####[facility] [address] [place], [address] Basophil percentageOrdered B y: Ken Vieyra on 04-07-2025 Basophils/100 WBC (Bld) 0.2 % 0-1 [facility] Bedside Glucoseon 04-07-2025 FINGERSTICK GLU 239 mg/dL High 74-106 [facility] Comment on above: Result Comment: MAURI IVORY OF PATIENT CARE PER NURSING PROTOCOL Performed By: #### L 501.080 ####[facility] [address] [place], [address] FINGERSTICK GLU 128 mg/dL High 74-106 [facility] Comment on above: Result Comment: MAURI GEMENT OF PATIENT CARE PER NURSING PROTOCOL Performed By: #### L 501.080 ####[facility] [address] [place], [address] FINGERSTICK GLU 161 mg/dL High 74-106 [facility] Comment on above: Result Comment: MAURI GEMENT OF PATIENT CARE PER NURSING PROTOCOL Performed By: #### L 501.080 ####[facility] [address] [place], [address] FINGERSTICK GLU 160 mg/dL High 74-106 [facility] Comment on above: Result Comment: MAURI GEMENT OF PATIENT CARE PER NURSING PROTOCOL Performed By: #### L 501.080 ####[facility] [address] [place], [address] FINGERSTICK GLU 155 mg/dL High 74-106 [facility] Comment on above: Result Comment: MAURI GEMENT OF PATIENT CARE PER NURSING PROTOCOL Performed By: #### L 501.080 ####[facility] [address] [place], [address] CBC W/Diff, Automatedon 03-26 PLT EST A Normal ADEQ [facility] Comment on above: Order Comment: CRITI ELISHA VALUE CALLED TO AZRA MONAHAN04/07/25 1607 Dhara Julio.RESULTS READ BACK BY SAME. Performed By: #### L 500.2500, L100.0100 ####[facility] [address] [place], [address] Eosinophil percentageOrdered By: Ken Vieyra on 04-07-2025 Eosinophils/100 WBC (Bld) 0.0 % 0-5 [facility] Erythrocyte distribution wid th ratioOrdered By: Ken Vieyra on 04-07-2025 Erythrocyte distribution width (RBC) [Ratio] 15.8 % High 11.6-14.6 [facility] Erythrocyte distribution wid th standard deviationOrdered By: Ken Vieyra on 04-07-2025 Erythrocyte distribution width (RBC) [Ratio] 51.9 fl High 35.1-43.9 [facility] Hematocrit Auto (Bld) [Volum e fraction]Ordered By: Ken Vieyra on 04-07-2025 Hematocrit (Bld) [Volume fraction] 38.9 % 37-47 [facility] Hemoglobin A1con 04-07-2025 HbA1c (Bld) [Mass fraction] 6.3 % High <=5.6 [facility] Comment on above: Result Comment: Norm al < 5.7 % Prediabetic 5.7 - 6.4 % Diabetic >or= 6.5 % Please note range changes. Performed By: #### L 501.9994 ####[facility] [address] [place], [address] Hemoglobin A1c percentageOrd ered By: Ken Vieyra on 04-07-2025 HbA1c (Bld) [Mass fraction] 6.3 % High <5.7 [facility] Comment on above: Normal < 5.7 % Predi abetic 5.7 - 6.4 % Diabetic >or= 6.5 % Please note range changes. Hemoglobin measurementOrdere d By: Ken Vieyra on 04-07-2025 Hemoglobin (Bld) [Mass/Vol] 12.4 g/dL 12.0-15.0 [facility] Immature granulocytes/100 WB C Auto (Bld)Ordered By: Ken Vieyra on 04-07-2025 Immature granulocytes/100 WBC (Bld) 1.000 % High 0.0-0.9 [facility] Comment on above: IG% - Immature Granu locytes (promyelocytes, myelocytes and metamyelocytes) > 1% indicates that a LEFT SHIFT is Present. MCV (mean corpuscular volume ) determinationOrdered By: Ken Vieyra on 04-07-2025 MCV (RBC) [Entitic vol] 91.3 fL 81-99 [facility] Mean corpuscular hemoglobin (MCH) determinationOrdered By: Ken Vieyra on 04-07-2025 MCH (RBC) [Entitic mass] 29.1 pg 27.0-32.0 [facility] Mean corpuscular hemoglobin concentration (MCHC) determinationOrdered By: Ken Vieyra on 04-07-2025 MCHC (RBC) [Mass/Vol] 31.9 g/dL Low 32-36 [facility] Comment on above: Delta: 30.2 on 04/06-444 Mean platelet volume determi nationOrdered By: Ken Vieyra on 04-07-2025 Platelet mean volume (Bld) [Entitic vol] 10.0 fL 6.2-12.0 [facility] Monocyte percentageOrdered B y: Ken Vieyra on 04-07-2025 Monocytes/100 WBC (Bld) 3.3 % 0-10 [facility] Neutrophil percentageOrdered By: Ken Vieyra on 04-07-2025 Neutrophils/100 WBC (Bld) 94.1 % High 47-70 [facility] Nucleated red blood cell per centageOrdered By: Ken Vieyra on 04-07-2025 Nucleated RBC/100 WBC (Bld) [Ratio] 0 % 0-5 [facility] Phosphoruson 04-07-2025 Phosphate [Mass/Vol] 3.3 mg/dL Normal 2.7-4.5 [facility] Comment on above: Performed By: #### L 501.2300 ####[facility] [address] [place], [place], [id number] Platelet countOrdered By: Bel Vieyra on 04-07-2025 Platelets (Bld) [#/Vol] 365 10*3/uL 150-450 [facility] Platelet estimateOrdered By: Ken Vieyra on 04-07-2025 Platelets LM Ql (Bld) A ADEQ [facility] RBC Auto (Bld) [#/Vol]Ordere d By: Ken Vieyra on 04-07-2025 RBC (Bld) [#/Vol] 4.26 10*6/uL 4.2-5.4 [facility] White blood cell (WBC) count Ordered By: Ken Vieyra on 04-07-2025 WBC (Bld) [#/Vol] 31.9 10*3/uL High 4.4-11.0 [facility] Assessment of wrist artery p atency prior to arterial punctureOrdered By: Orlando Maldonado on 04-06-2025 Arterial patency Wrist artery --pre arterial puncture Positive [facility] Bedside Glucoseon 04-06-2025 FINGERSTICK GLU 175 mg/dL High 74-106 [facility] Comment on above: Result Comment: MAURI GEMENT OF PATIENT CARE PER NURSING PROTOCOL Performed By: #### L 501.080 ####[facility] [address] [place], [address] FINGERSTICK GLU 173 mg/dL High 74-106 [facility] Comment on above: Result Comment: MAURI GEMENT OF PATIENT CARE PER NURSING PROTOCOL Performed By: #### L 501.080 ####[facility] [address] [place], [address] Bilirubin, totalOrdered By: Orlando Maldonado on 04-06-2025 Bilirubin [Mass/Vol] 0.23 mg/dL 0.00-1.30 [facility] Blood Gases by CPSon 025 ZECHARIAH TEST Positive Normal [facility] Comment on above: Performed By: #### L 9000.0800 ####[facility] [address] [place], [address] Base excess Calc (Bld) [Moles/Vol] 23 mmol/L High -2 to +2 [facility] Comment on above: Performed By: #### L 9000.0800 ####[facility] [address] [place], [address] Blood Gas Type ART Normal [facility] Comment on above: Performed By: #### L 9000.0800 ####[facility] [address] [place], [address] FI02 35.0 Normal [facility] Comment on above: Performed By: #### L 9000.0800 ####[facility] [address] [place], [address] HCO3 (Bld) [Moles/Vol] 47.7 mmol/L High 22-26 [facility] Comment on above: Performed By: #### L 9000.0800 ####[facility] [address] [place], [address] Mode Not entered [facility] Comment on above: Performed By: #### L 9000.0800 ####[facility] [address] [place], [address] O2 Delivery Dev BiPAP Normal [facility] Comment on above: Performed By: #### L 9000.0800 ####[facility] [address] [place], [address] pCO2 75.5 mmHg Invalid Interpretation Code 35-45 [facility] Comment on above: Performed By: #### L 9000.0800 ####[facility] [address] [place], [address] pH (Bld) 7.41 [pH] Normal 7.35-7.45 [facility] Comment on above: Performed By: #### L 9000.0800 ####[facility] [address] [place], [address] PO2 54 mmHG Low 75-100 [facility] Comment on above: Performed By: #### L 9000.0800 ####[facility] [address] [place], [address] Read Back By Yes [facility] Comment on above: Performed By: #### L 9000.0800 ####[facility] [address] [place], [address] SITE L Radial Normal [facility] Comment on above: Performed By: #### L 9000.0800 ####[facility] [address] [place], [address] SO2 85 Low 95-99 [facility] Comment on above: Performed By: #### L 9000.0800 ####[facility] [address] [place], [address] TOTAL CO2 > 50 Normal [facility] Comment on above: Performed By: #### L 9000.0800 ####[facility] [address] [place], [address] Blood base excess determinat ionOrdered By: Orlando Maldonado on 04-06-2025 Base excess Calc (BldV) [Moles/Vol] 23 mmol/L High -2-2 [facility] Blood bicarbonate measuremen tOrdered By: Orlando Maldonado on 04-06-2025 HCO3 (Bld) [Moles/Vol] 47.7 mmol/L High 22-26 [facility] Blood manual differential co mment interpretation (narrative result)Ordered By: Orlando Maldonado on 04-06-2025 Manual differential comment Eugene (Bld) [Interp] SCANNED [facility] CBC W/Diff, Automatedon 03-26 PLT EST ADEQUATE Normal ADEQ [facility] Comment on above: Performed By: #### L 100.0100, L500.4050, L503.7505, L501.2300 ####[facility] [address] [place], [address] RED CELL MORPH NORM C+C Normal NORM C C [facility] Comment on above: Performed By: #### L 100.0100, L500.4050, L503.7505, L501.2300 ####[facility] [address] [place], [address] SMEAR COMMENT SCANNED Normal [facility] Comment on above: Performed By: #### L 100.0100, L500.4050, L503.7505, L501.2300 ####[facility] [address] [place], [address] CRPon 04-06-2025 C-REACTIVE PROT 18.90 mg/L High 0.0-3.0 [facility] Comment on above: Performed By: #### L 501.6710, L101.9900 ####[facility] [address] [place], [address] Calculated very low density lipoprotein (VLDL) cholesterol measurementOrdered By: Ken Vieyra on 04-06-2025 Calculated very low density lipoprotein (VLDL) cholesterol measurement 14 mg/dL 5-40 [facility] Comprehensive Metabolic Prof ilon 04-06-2025 Albumin [Mass/Vol] 3.4 g/dL Normal 3.4-4.8 [facility] Comment on above: Performed By: #### L 100.0100, L500.4050, L503.7505, L501.2300 ####[facility] [address] [place], [address] Albumin/Globulin [Mass ratio] 1.3 {ratio} Normal 0.9-2.4 [facility] Comment on above: Performed By: #### L 100.0100, L500.4050, L503.7505, L501.2300 ####[facility] [address] [place], [address] ALK PHOS 53 U/L Normal 35-104 [facility] Comment on above: Performed By: #### L 100.0100, L500.4050, L503.7505, L501.2300 ####[facility] [address] [place], [address] ALT [Catalytic activity/Vol] 41 U/L High <=34 [facility] Comment on above: Performed By: #### L 100.0100, L500.4050, L503.7505, L501.2300 ####[facility] [address] [place], [address] AST [Catalytic activity/Vol] 20 U/L Normal <=31 [facility] Comment on above: Result Comment: Hemo lysis present, Results??could be affected.?? Performed By: #### L 100.0100, L500.4050, L503.7505, L501.2300 ####[facility] [address] [place], [address] Bilirubin [Mass/Vol] 0.23 mg/dL Normal 0.00-1.30 [facility] Comment on above: Performed By: #### L 100.0100, L500.4050, L503.7505, L501.2300 ####[facility] [address] [place], [address] BUN/CRE 27.3 RATIO High 10-20 [facility] Comment on above: Performed By: #### L 100.0100, L500.4050, L503.7505, L501.2300 ####[facility] [address] [place], [address] Calcium [Mass/Vol] 8.6 mg/dL Normal 7.6-11.0 [facility] Comment on above: Performed By: #### L 100.0100, L500.4050, L503.7505, L501.2300 ####[facility] [address] [place], [address] Chloride [Moles/Vol] 88 mmol/L Low 98-108 [facility] Comment on above: Performed By: #### L 100.0100, L500.4050, L503.7505, L501.2300 ####[facility] [address] [place], [address] CO2 [Moles/Vol] 42.0 mmol/L High 21.0-32.0 [facility] Comment on above: Performed By: #### L 100.0100, L500.4050, L503.7505, L501.2300 ####[facility] [address] [place], [address] Creatinine [Mass/Vol] 0.60 mg/dL Low 0.70-1.20 [facility] Comment on above: Performed By: #### L 100.0100, L500.4050, L503.7505, L501.2300 ####[facility] [address] [place], [address] ECRCL 77.49 ml/min Normal 50-250 [facility] Comment on above: Performed By: #### L 100.0100, L500.4050, L503.7505, L501.2300 ####[facility] [address] [place], [address] GAP 10 Normal 5-15 [facility] Comment on above: Performed By: #### L 100.0100, L500.4050, L503.7505, L501.2300 ####[facility] [address] [place], [address] GFR/1.73 sq M.predicted among non-blacks MDRD (S/P/Bld) [Vol rate/Area] 96 mL/min/{1.73_m2} Normal >60 [facility] Comment on above: Result Comment: mL/m in/1.73m2 CKD-EPI Creatinine Equation (2020) Performed By: #### L 100.0100, L500.4050, L503.7505, L501.2300 ####[facility] [address] [place], [address] Globulin (S) [Mass/Vol] 2.7 g/dL Normal 2.2-4.2 [facility] Comment on above: Performed By: #### L 100.0100, L500.4050, L503.7505, L501.2300 ####[facility] [address] [place], [address] Glucose [Mass/Vol] 233 mg/dL High 70-99 [facility] Comment on above: Performed By: #### L 100.0100, L500.4050, L503.7505, L501.2300 ####[facility] [address] [place], [address] Potassium [Moles/Vol] 4.0 mmol/L Normal 3.3-5.1 [facility] Comment on above: Result Comment: Hemo lysis present, Results??could be affected.?? Performed By: #### L 100.0100, L500.4050, L503.7505, L501.2300 ####[facility] [address] [place], [address] Sodium [Moles/Vol] 140 mmol/L Normal 133-145 [facility] Comment on above: Performed By: #### L 100.0100, L500.4050, L503.7505, L501.2300 ####[facility] [address] [place], [address] T PROT 6.1 g/dL Normal 5.9-8.4 [facility] Comment on above: Performed By: #### L 100.0100, L500.4050, L503.7505, L501.2300 ####[facility] [address] [place], [address] Urea nitrogen [Mass/Vol] 16 mg/dL Normal 4-19 [facility] Comment on above: Performed By: #### L 100.0100, L500.4050, L503.7505, L501.2300 ####[facility] [address] [place], [address] Electrocardiogram reportOrde red By: Yasmani Bruno on 04-06-2025 EKG study [facility] [address] [place] [address] 12 Lead EKG 04/05/252057 MR#: [id number] Acct: [id number] Name: PIPER CLARK Rep #:[id number] : 1955 69 From: Yasmani parra MD Attending Dr: Dr. Ken Vieyra MD Status: ADM IN Ordering Dr: Andi Ortiz MD Date: 04/05/25 Location: [facility] Sex: F C Admitted: 04/05/25 Test Reason : SOB Blood Pressure : */* mmHG Vent. Rate : 97 BPM Atrial Rate : * BPM P-R Int : * ms QRS Dur : 88 ms QT Int : 316 ms P-R-T Axes : * 59 30 degrees QTcB Int : 401 ms Atrial fibrillation Low voltage QRS Abnormal ECG Confirmed by Yasmani Bruno ([id number]), index editor SHANNAN MAN ([id number]) on :25:24 AM Referred By: Orlando Bolden Confirmed By: Yasmani Bruno 04/06/25 0925 Date _ Yasmani Bruno MD CC: Dr. Andi Ortiz MD; Dr. Genia Chappell MD; Dr. Orlando Bolden DO; Dr. Ken Vieyra MD ~ Signed [facility] Other Phone: Erythrocyte Sed Rateon 04-06 SED RATE 18 mm/hr Normal 0-30 [facility] Comment on above: Performed By: #### L 501.6710, L101.9900 ####[facility] [address] [place], [address] Erythrocyte morphology asses smentOrdered By: Orlando Maldonado on 04-06-2025 RBC morphology finding Nom (Bld) NORM C+C NORMAL NORM C&C [facility] Erythrocyte sedimentation ra teOrdered By: Orlando Maldonado on 04-06-2025 ESR (Bld) [Velocity] 18 mm/h 0-30 [facility] L499.0043on 04-06-2025 Trop T High Sen 12 ng/L Normal <=14 [facility] Comment on above: Performed By: #### L 499.0043 ####[facility] [address] [place], [address] L503.7505on 04-06-2025 Natriuretic peptide B (Bld) [Mass/Vol] 1763 pg/mL High <=900 [facility] Comment on above: Result Comment: Hear t Failure Unlikely: < 300 pg/mLHeart Failure Likely< 50 Years: > 450 pg/mL50-75 Years: > 900 pg/mL>75 Years: > 1800 pg/mL Performed By: #### L 100.0100, L500.4050, L503.7505, L501.2300 ####[facility] [address] [place], [address] LDL calc ser/plasOrdered By: Ken Vieyra on 04-06-2025 Cholesterol in LDL [Mass/Vol] 61 mg/dL [facility] Comment on above: Zfxfyjgyhz=147-284 m g/dL & Higher Hucb=878 mg/dL or greater Laboratory - Chemistry and C hemistry - challengeOrdered By: Orlando Maldonado on 04-06-2025 AST [Catalytic activity/Vol] 20 U/L <32 [facility] Comment on above: Hemolysis present, R esults could be affected. Lactic Acidon 04-06-2025 Lactate [Moles/Vol] 3.0 mmol/L Invalid Interpretation Code 0.0-2.0 [facility] Comment on above: Result Comment: Crit ical Result(s) Called at 1003: by: NEHEMIAH GUTIÉRREZ. ??Results read back by same. Performed By: #### L [id number] ####[facility] [address] [place], [address] Lactate [Moles/Vol] 2.2 mmol/L Invalid Interpretation Code 0.0-2.0 [facility] Comment on above: Order Comment: Y Result Comment: Crit ical Result(s) Called at 0559: by: JJ BELL??Results read back by same. Performed By: #### L 503.6005 ####[facility] [address] [place], [place], [address] Lactate [Moles/Vol] 2.9 mmol/L Invalid Interpretation Code 0.0-2.0 [facility] Comment on above: Order Comment: N Result Comment: Crit ical Result(s) Called at: 0136 by:??NBURNS TO EAFFOLTERResults read back by same. Performed By: #### L 503.6007 ####[facility] [address] [place], [address] Lactic acid measurementOrder ed By: Orlando Maldonado on 04-06-2025 Lactate [Moles/Vol] 3.0 mmol/L High 0.0-2.0 [facility] Comment on above: Critical Result(s) C alled at 1003: by: NEHEMIAH RAUSCH. Results read back by same. Lipid Profileon 04-06-2025 CHOL:HDL 2.04 Normal [facility] Comment on above: Performed By: #### L 500.4100 ####[facility] [address] [place], [place], [address] Cholesterol [Mass/Vol] 147 mg/dL Normal <=200 [facility] Comment on above: Result Comment: Chol esterol level, Desirable <200 mg/dLBorderline high cholesterol 200-239 mg/dLHigh cholesterol >=240 mg/dLRecommendations of the NCEP Adult Treatment Panel for thefollowing risk-cutoff thresholds for the [place] Americanpopulation. Performed By: #### L 500.4100 ####[facility] [address] [place], [place], [address] Cholesterol in HDL [Mass/Vol] 72 mg/dL Normal [facility] Comment on above: Result Comment: Leslie onal Cholesterol Education Program (NCEP) guidelines:<40 mg/dL: Low HDL-cholesterol (major risk factor for CHD)>= 60 mg/dL: High HDL-cholesterol (negative risk factor forCHD)HDL-cholesterol is affected by a number of factors, e.g.smoking, exercise, hormones, sex and age. Performed By: #### L 500.4100 ####[facility] [address] [place], [address] Cholesterol in LDL [Mass/Vol] 61 mg/dL Normal [facility] Comment on above: Result Comment: Bord xobpsu=990-148 mg/dL Higher Ptuu=615 mg/dL or greater Performed By: #### L 500.4100 ####[facility] [address] [place], [address] Cholesterol in VLDL [Mass/Vol] 14 mg/dL Normal 5-40 [facility] Comment on above: Performed By: #### L 500.4100 ####[facility] [address] [place], [address] Triglyceride [Mass/Vol] 71 mg/dL Normal [facility] Comment on above: Result Comment: The drugs N-Acetylcysteine and Metamizole may falselydepress this assay.Normal range: <150 mg/dLBorderline High: 150-199 mg/dLHigh: 200-499 mg/dLVery High: >500 mg/dL Performed By: #### L 500.4100 ####[facility] [address] [place], [address] Magnesiumon 04-06-2025 Magnesium [Mass/Vol] 1.9 mg/dL Normal 1.5-2.2 [facility] Comment on above: Performed By: #### L 501.5200 ####[facility] [address] [place], [address] Measurement, pHOrdered By: Ellen Maldonado on 04-06-2025 pH (Unsp spec) 7.41 [pH] 7.35-7.45 [facility] Natriuretic peptide.B prohor inessa N-Terminal [Mass/volume] in Serum or PlasmaOrdered By: Orlando Maldonado on 04-06-2025 Natriuretic peptide.B prohormone N-Terminal [Mass/Vol] 1763 pg/mL High <900 [facility] Comment on above: Heart Failure Unlike ly: < 300 pg/mLHeart Failure Likely< 50 Years: > 450 pg/mL50-75 Years: > 900 pg/mL>75 Years: > 1800 pg/mL No Panel InformationOrdered By: Orlando Maldonado on 04-06-2025 Bld Gas Crit Called To/Read Back By Yes [facility] Blood Gas Sample Site L Radial [facility] Blood Gas Specimen Type ART W [facility] Blood Gas Vent Mode Not entered [facility] Oxygen Delivery Device BiPAP [facility] ART [facility] L Radial [facility] Not entered [facility] BiPAP [facility] Yes [facility] Blood Gas Notified [facility] 20 U/L <32 [facility] Phosphoruson 04-06-2025 Phosphate [Mass/Vol] 3.2 mg/dL Normal 2.7-4.5 [facility] Comment on above: Performed By: #### L 100.0100, L500.4050, L503.7505, L501.2300 ####[facility] [address] [place], [address] RESPIRATORY PANEL MOLECULARo n 04-06-2025 RP PANEL Normal [facility] Comment on above: Performed By: #### M 100.638 ####[facility] [address] [place], [address] Respiratory pathogens detect ion panel by molecular detection methodOrdered By: Orlando Maldonado on 04-06-2025 Respiratory pathogens DNA and RNA panel KEARA+probe (Resp) [facility] Screening total cholesterol/ high density lipoprotein (HDL) cholesterol ratioOrdered By: Ken Vieyra on 04-06-2025 Cholesterol.total/Choles terol in HDL [Mass ratio] 2.04 {ratio} [facility] Serum globulin measurementOr dered By: Orlando Maldonado on 04-06-2025 Globulin (S) [Mass/Vol] 2.7 g/dL 2.2-4.2 [facility] Serum or plasma C reactive p rotein measurement (mass/volume)Ordered By: Orlando Maldonado on 04-06-2025 CRP [Mass/Vol] 18.90 mg/L High 0.0-3.0 [facility] Serum or plasma alanine garza otransferase (ALT) measurementOrdered By: Orlando Maldonado on 04-06-2025 ALT [Catalytic activity/Vol] 41 U/L High <35 [facility] Serum or plasma albumin diallo urement (mass/volume)Ordered By: Orlando Maldonado on 04-06-2025 Albumin [Mass/Vol] 3.4 g/dL 3.4-4.8 [facility] Serum or plasma albumin/glob ulin mass ratioOrdered By: Orlando Maldonado on 04-06-2025 Albumin/Globulin [Mass ratio] 1.3 {ratio} 0.9-2.4 [facility] Serum or plasma alkaline pati sphatase measurementOrdered By: Orlando Maldonado on 04-06-2025 ALP [Catalytic activity/Vol] 53 U/L 35-104 [facility] Serum or plasma cholesterol in HDL measurement (mass/volume)Ordered By: Ken Vieyra on 04-06-2025 Cholesterol in HDL [Mass/Vol] 72 mg/dL >40 [facility] Comment on above: National Cholesterol Education Program (NCEP) guidelines:<40 mg/dL: Low HDL-cholesterol (major risk factor for CHD)>= 60 mg/dL: High HDL-cholesterol (negative risk factor for CHD)HDL-cholesterol is affected by a number of factors, e.g. smoking, exercise, hormones, sex and age. Serum or plasma cholesterol measurement (mass/volume)Ordered By: Ken Vieyra on 04-06-2025 Cholesterol [Mass/Vol] 147 mg/dL <201 [facility] Comment on above: Cholesterol level, D esirable <200 mg/dLBorderline high cholesterol 200-239 mg/dLHigh cholesterol >=240 mg/dLRecommendations of the NCEP Adult Treatment Panel for the following risk-cutoff thresholds for the [place] population. Total proteinOrdered By: Severo Maldonado on 04-06-2025 Protein [Mass/Vol] 6.1 g/dL 5.9-8.4 [facility] Triglycerides measurementOrd ered By: eKn Vieyra on 04-06-2025 Triglyceride [Mass/Vol] 71 mg/dL <199 [facility] Comment on above: The drugs N-Acetylcy steine and Metamizole may falsely depress this assay. Normal range: <150 mg/dLBorderline High: 150-199 mg/dLHigh: 200-499 mg/dLVery High: >500 mg/dL Troponin T.cardiac [Mass/vol ume] in Serum or Plasma by High sensitivity methodOrdered By: Andi Ortiz on 04-06-2025 Troponin T.cardiac High sensitivity method [Mass/Vol] 12 ng/L <14 [facility] 12 Lead EKGon 04-05-2025 12 Lead EKG Normal [facility] Absolute lymphocyte countOrd ered By: Andi Ortiz on 04-05-2025 Lymphocytes Auto (Unsp spec) [#/Vol] 0.57 10*3/uL Low 0.83-4.51 [facility] Absolute neutrophil countOrd ered By: Andi Ortiz on 04-05-2025 Neutrophils (Bld) [#/Vol] 23.4 10*3/uL High 2.0-7.7 [facility] Anion gap in Serum or Plasma Ordered By: Andi Ortiz on 04-05-2025 Anion gap [Moles/Vol] 7 mmol/L 5-15 [facility] Automated lymphocyte count a s percentage of total leukocytesOrdered By: Andi Ortiz on 04-05-2025 Lymphocytes/100 WBC Auto (Unsp spec) 2.2 % Low 19-41 [facility] BUN/creatinine ratioOrdered By: Andi Ortiz on 04-05-2025 Urea nitrogen/Creatinine [Mass ratio] 29.9 mg/mg High 10-20 [facility] Basic Metabolic Profile (BMP )on 04-05-2025 BUN/CRE 29.9 RATIO High - [facility] Comment on above: Performed By: #### L 500.2500, L100.0100 ####[facility] [address] [place], [place], [id number] Calcium [Mass/Vol] 9.2 mg/dL Normal 7.6-11.0 [facility] Comment on above: Performed By: #### L 500.2500, L100.0100 ####[facility] [address] [place], [address] Chloride [Moles/Vol] 89 mmol/L Low 98-108 [facility] Comment on above: Performed By: #### L 500.2500, L100.0100 ####[facility] [address] [place], [address] CO2 [Moles/Vol] 42.2 mmol/L High 21.0-32.0 [facility] Comment on above: Performed By: #### L 500.2500, L100.0100 ####[facility] [address] [place], [address] Creatinine [Mass/Vol] 0.77 mg/dL Normal 0.70-1.20 [facility] Comment on above: Performed By: #### L 500.2500, L100.0100 ####[facility] [address] [place], [address] ECRCL 77.14 ml/min Normal 50-250 [facility] Comment on above: Performed By: #### L 500.2500, L100.0100 ####[facility] [address] [place], [address] GAP 7 Normal 5-15 [facility] Comment on above: Performed By: #### L 500.2500, L100.0100 ####[facility] [address] [place], [address] GFR/1.73 sq M.predicted among non-blacks MDRD (S/P/Bld) [Vol rate/Area] 82 mL/min/{1.73_m2} Normal >60 [facility] Comment on above: Result Comment: mL/m in/1.73m2 CKD-EPI Creatinine Equation (2020) Performed By: #### L 500.2500, L100.0100 ####[facility] [address] [place], [address] Glucose [Mass/Vol] 305 mg/dL High 70-99 [facility] Comment on above: Performed By: #### L 500.2500, L100.0100 ####[facility] [address] [place], [address] Potassium [Moles/Vol] 4.7 mmol/L Normal 3.3-5.1 [facility] Comment on above: Performed By: #### L 500.2500, L100.0100 ####[facility] [address] [place], [address] Sodium [Moles/Vol] 138 mmol/L Normal 133-145 [facility] Comment on above: Performed By: #### L 500.2500, L100.0100 ####[facility] [address] [place], [address] Urea nitrogen [Mass/Vol] 23 mg/dL High 4-19 [facility] Comment on above: Performed By: #### L 500.2500, L100.0100 ####[facility] [address] [place], [address] Basophil percentageOrdered B y: Andi Ortiz on 04-05-2025 Basophils/100 WBC (Bld) 0.2 % 0-1 [facility] Blood cultureOrdered By: Skylar Ortiz on 04-05-2025 Bacteria identified Cx Nom (Bld) No growth in 5 days. [facility] Bacteria identified Cx Nom (Bld) No growth in 5 days. [facility] Blood manual differential co mment interpretation (narrative result)Ordered By: Andi Ortiz on 04-05-2025 Manual differential comment Eugene (Bld) [Interp] SCANNED [facility] Blood stomatocytes detection by light microscopyOrdered By: Andi Ortiz on 04-05-2025 Stomatocytes LM Ql (Bld) 2+ [facility] CBC W/Diff, Automatedon 03-26 Anisocytosis Ql (Bld) 1+ Normal [facility] Comment on above: Performed By: #### L 500.2500, L100.0100 ####[facility] [address] [place], [address] BASO STIPPLING RARE Normal [facility] Comment on above: Performed By: #### L 500.2500, L100.0100 ####[facility] [address] [place], [address] PLT EST ADEQUATE Normal ADEQ [facility] Comment on above: Performed By: #### L 500.2500, L100.0100 ####[facility] [address] [place], [address] SMEAR COMMENT SCANNED Normal [facility] Comment on above: Performed By: #### L 500.2500, L100.0100 ####[facility] [address] [place], [address] STOMATOCYTE 2+ Normal [facility] Comment on above: Performed By: #### L 500.2500, L100.0100 ####[facility] [address] [place], [address] CT Chest, Abd, Pelvis WO Con ton 04-05-2025 CT Chest, Abd, Pelvis WO Cont Normal [facility] Carbon dioxide, total [Moles /volume] in Central venous bloodOrdered By: Andi Ortiz on 04-05-2025 CO2 [Moles/Vol] 42.2 mmol/L High 21.0-32.0 [facility] Chest 1 View (Portable)on Chest 1 View (Portable) Normal [facility] Chloride assayOrdered By: Holland Ortiz on 04-05-2025 Chloride [Moles/Vol] 89 mmol/L Low 98-108 [facility] Summary on 04-05-2025 Emergency Department Summary Normal [facility] Eosinophil percentageOrdered By: Andi Ortiz on 04-05-2025 Eosinophils/100 WBC (Bld) 0.0 % 0-5 [facility] Erythrocyte basophilic stipp ling detectionOrdered By: Andi Ortiz on 04-05-2025 Basophilic stippling LM Ql (Bld) RARE [facility] Erythrocyte distribution wid th ratioOrdered By: Andi Ortiz on 04-05-2025 Erythrocyte distribution width (RBC) [Ratio] 15.1 % High 11.6-14.6 [facility] Erythrocyte distribution wid th standard deviationOrdered By: Andisoraida Ortiz on 04-05-2025 Erythrocyte distribution width (RBC) [Ratio] 53.1 fl High 35.1-43.9 [facility] Glomerular filtration rate ( GFR) estimation/1.73 sq m using serum, plasma, or whole bOrdered By: Andisoraida Ortiz on 04-05-2025 GFR/1.73 sq M.predicted among non-blacks MDRD (S/P/Bld) [Vol rate/Area] 82 mL/min/{1.73_m2} >60 [facility] Comment on above: mL/min/1.73m2 CKD-EP I Creatinine Equation (2020) H AND P Exam - [facility] 04-05-2025 H&P Exam - Hospitalist Normal [facility] Hematocrit Auto (Bld) [Volum e fraction]Ordered By: [facility] on 04-05-2025 Hematocrit (Bld) [Volume fraction] 38.9 % 37-47 [facility] Hemoglobin measurementOrdere d By: Andi Ortiz on 04-05-2025 Hemoglobin (Bld) [Mass/Vol] 11.7 g/dL Low 12.0-15.0 [facility] Immature granulocytes/100 WB C Auto (Bld)Ordered By: Andi Ortiz on 04-05-2025 Immature granulocytes/100 WBC (Bld) 1.200 % High 0.0-0.9 [facility] Comment on above: IG% - Immature Granu locytes (promyelocytes, myelocytes and metamyelocytes) > 1% indicates that a LEFT SHIFT is Present. L499.0042on 04-05-2025 Trop T High Sen 8 ng/L Normal <=14 [facility] Comment on above: Performed By: #### L 499.0042 ####[facility] [address] [place], [address] L501.4021on 04-05-2025 Trop T High Sen 10 ng/L Normal <=14 [facility] Comment on above: Performed By: #### L 503.7503, L501.4021 ####[facility] [address] [place], [address] L503.7505on 04-05-2025 Natriuretic peptide B (Bld) [Mass/Vol] 1349 pg/mL High <=900 [facility] Comment on above: Result Comment: Hear t Failure Unlikely: < 300 pg/mLHeart Failure Likely< 50 Years: > 450 pg/mL50-75 Years: > 900 pg/mL>75 Years: > 1800 pg/mL Performed By: #### L 503.2677, L501.4021 ####[facility] [address] [place], [place], [id number] Laboratory - Hematology and Cell countsOrdered By: Andi Ortiz on 04-05-2025 Anisocytosis Ql (Bld) 1+ [facility] Lactic Acidon 04-05-2025 Lactate [Moles/Vol] 2.5 mmol/L Invalid Interpretation Code 0.0-2.0 [facility] Comment on above: Order Comment: Y Result Comment: Crit ical Result(s) Called at: 2213 by:??KAYLEE ROLON Results read back by same. Performed By: #### L 503.6005 ####[facility] [address] [place], [place], [id number] Lactic acid measurementOrder ed By: Andi Ortiz on 04-05-2025 Lactate [Moles/Vol] 2.5 mmol/L High 0.0-2.0 [facility] Comment on above: Critical Result(s) C alled at: 4 by: KAYLEE CLEMENTS Results read back by same. MCV (mean corpuscular volume ) determinationOrdered By: Andi Ortiz on 04-05-2025 MCV (RBC) [Entitic vol] 96.3 fL 81-99 [facility] Magnesium measurement (mass/ volume)Ordered By: Orlando Maldonado on 04-05-2025 Magnesium (Unsp spec) [Mass/Vol] 1.9 mg/dL 1.5-2.2 [facility] Mean corpuscular hemoglobin (MCH) determinationOrdered By: Andi Ortiz on 04-05-2025 MCH (RBC) [Entitic mass] 29.0 pg 27.0-32.0 [facility] Mean corpuscular hemoglobin concentration (MCHC) determinationOrdered By: Andi Ortiz on 04-05-2025 MCHC (RBC) [Mass/Vol] 30.1 g/dL Low 32-36 [facility] Mean platelet volume determi nationOrdered By: Andi Ortiz on 04-05-2025 Platelet mean volume (Bld) [Entitic vol] 9.8 fL 6.2-12.0 [facility] Monocyte percentageOrdered B y: Andi Ortiz on 04-05-2025 Monocytes/100 WBC (Bld) 4.1 % 0-10 [facility] Natriuretic peptide.B prohor inessa N-Terminal [Mass/volume] in Serum or PlasmaOrdered By: Andi Ortiz on 04-05-2025 Natriuretic peptide.B prohormone N-Terminal [Mass/Vol] 1349 pg/mL High <900 [facility] Comment on above: Heart Failure Unlike ly: < 300 pg/mLHeart Failure Likely< 50 Years: > 450 pg/mL50-75 Years: > 900 pg/mL>75 Years: > 1800 pg/mL Neutrophil percentageOrdered By: Andi Ortiz on 04-05-2025 Neutrophils/100 WBC (Bld) 92.3 % High 47-70 [facility] No Panel InformationOrdered By: Andi Ortiz on 04-05-2025 1+ [facility] Nucleated red blood cell per centageOrdered By: Andi Ortiz on 04-05-2025 Nucleated RBC/100 WBC (Bld) [Ratio] 0 % 0-5 [facility] Platelet countOrdered By: Holland Ortiz on 04-05-2025 Platelets (Bld) [#/Vol] 367 10*3/uL 150-450 [facility] Platelet estimateOrdered By: Andi Ortiz on 04-05-2025 Platelets LM Ql (Bld) ADEQUATE ADEQ [facility] Potassium measurement (mass/ volume)Ordered By: Andi Ortiz on 04-05-2025 Potassium (Unsp spec) [Mass/Vol] 4.7 mmol/L 3.3-5.1 [facility] RBC Auto (Bld) [#/Vol]Ordere d By: Andi Ortiz on 04-05-2025 RBC (Bld) [#/Vol] 4.04 10*6/uL Low 4.2-5.4 [facility] Serum creatinine measurement (mass/volume)Ordered By: Andi Ortiz on 04-05-2025 Creatinine [Mass/Vol] 0.77 mg/dL 0.70-1.20 [facility] Serum glucose measurement (m ass/volume)Ordered By: Andi Ortiz on 04-05-2025 Glucose [Mass/Vol] 305 mg/dL High 70-99 [facility] Serum or plasma calcium diallo urement (mass/volume)Ordered By: Andi Ortiz on 04-05-2025 Calcium [Mass/Vol] 9.2 mg/dL 7.6-11.0 [facility] Serum or plasma urea nitroge n measurement (mass/volume)Ordered By: Andi Ortiz on 04-05-2025 Urea nitrogen [Mass/Vol] 23 mg/dL High 4-19 [facility] Sodium levelOrdered By: Brooks Ortiz on 04-05-2025 Sodium [Moles/Vol] 138 mmol/L 133-145 [facility] Troponin T.cardiac [Mass/vol ume] in Serum or Plasma by High sensitivity methodOrdered By: Andi Ortiz on 04-05-2025 Troponin T.cardiac High sensitivity method [Mass/Vol] 8 ng/L <14 [facility] Troponin T.cardiac High sensitivity method [Mass/Vol] 10 ng/L <14 [facility] Comment on above: Delta: 19 on White blood cell (WBC) count Ordered By: Andi Ortiz on 04-05-2025 WBC (Bld) [#/Vol] 25.4 10*3/uL High 4.4-11.0 [facility] Anion gap in Serum or Plasma Ordered By: Becca Dillard on 04-03-2025 Anion gap [Moles/Vol] 6 mmol/L - [facility] BUN/creatinine ratioOrdered By: Becca Dillard on 04-03-2025 Urea nitrogen/Creatinine [Mass ratio] 30.0 mg/mg High 09-14 [facility] Basic Metabolic Profile (BMP )on 04-03-2025 BUN/CRE 30.0 RATIO High 09-14 [facility] Comment on above: Performed By: #### L 500.2500 ####[facility] [address] [place], [address] Calcium [Mass/Vol] 9.2 mg/dL Normal 7.6-11.0 [facility] Comment on above: Performed By: #### L 500.2500 ####[facility] [address] [place], [address] Chloride [Moles/Vol] 90 mmol/L Low 98-108 [facility] Comment on above: Performed By: #### L 500.2500 ####[facility] [address] [place], [address] CO2 [Moles/Vol] 41.7 mmol/L High 21.0-32.0 [facility] Comment on above: Performed By: #### L 500.2500 ####[facility] [address] [place], [address] Creatinine [Mass/Vol] 0.78 mg/dL Normal 0.70-1.20 [facility] Comment on above: Performed By: #### L 500.2500 ####[facility] [address] [place], [address] GAP 6 Normal - [facility] Comment on above: Performed By: #### L 500.2500 ####[facility] [address] [place], [address] GFR/1.73 sq M.predicted among non-blacks MDRD (S/P/Bld) [Vol rate/Area] 81 mL/min/{1.73_m2} Normal >60 [facility] Comment on above: Result Comment: mL/m in/1.73m2 CKD-EPI Creatinine Equation (2020) Performed By: #### L 500.2500 ####[facility] [address] [place], [address] Glucose [Mass/Vol] 237 mg/dL High 70-99 [facility] Comment on above: Performed By: #### L 500.2500 ####[facility] [address] [place], [address] Potassium [Moles/Vol] 5.1 mmol/L Normal 3.3-5.1 [facility] Comment on above: Result Comment: Hemo lysis present, Results??could be affected.?? Performed By: #### L 500.2500 ####[facility] [address] [place], [address] Sodium [Moles/Vol] 137 mmol/L Normal 133-145 [facility] Comment on above: Performed By: #### L 500.2500 ####[facility] [address] [place], [address] Urea nitrogen [Mass/Vol] 23 mg/dL High 4-19 [facility] Comment on above: Performed By: #### L 500.2500 ####[facility] [address] [place], [address] Carbon dioxide, total [Moles /volume] in Central venous bloodOrdered By: Becca Dillard on 04-03-2025 CO2 [Moles/Vol] 41.7 mmol/L High 21.0-32.0 [facility] Chloride assayOrdered By: Sergio Dillard on 04-03-2025 Chloride [Moles/Vol] 90 mmol/L Low 98-108 [facility] Glomerular filtration rate ( GFR) estimation/1.73 sq m using serum, plasma, or whole bOrdered By: Becca Dillard on 04-03-2025 GFR/1.73 sq M.predicted among non-blacks MDRD (S/P/Bld) [Vol rate/Area] 81 mL/min/{1.73_m2} >60 [facility] Comment on above: mL/min/1.73m2 CKD-EP I Creatinine Equation (2020) Potassium measurement (mass/ volume)Ordered By: Becca Dillard on 04-03-2025 Potassium (Unsp spec) [Mass/Vol] 5.1 mmol/L 3.3-5.1 [facility] Comment on above: Hemolysis present, R esults could be affected. Serum creatinine measurement (mass/volume)Ordered By: Becca Dillard on 04-03-2025 Creatinine [Mass/Vol] 0.78 mg/dL 0.70-1.20 [facility] Serum glucose measurement (m ass/volume)Ordered By: Becca Dillard on 04-03-2025 Glucose [Mass/Vol] 237 mg/dL High 70-99 [facility] Serum or plasma calcium diallo urement (mass/volume)Ordered By: Becca Dillard on 04-03-2025 Calcium [Mass/Vol] 9.2 mg/dL 7.6-11.0 [facility] Serum or plasma urea nitroge n measurement (mass/volume)Ordered By: Becca Dillard on 04-03-2025 Urea nitrogen [Mass/Vol] 23 mg/dL High 03-14 [facility] Sodium levelOrdered By: Faith Dillard on 04-03-2025 Sodium [Moles/Vol] 137 mmol/L 133-145 [facility] Basic Metabolic Profile (BMP )on 03-31-2025 BUN Normal 03-14 [facility] Comment on above: Result Comment: Canc elled via OM: Order cancelled - Patient discharged Performed By: #### L 100.0100, L500.2500 ####[facility] [address] [place], [address] BUN/CRE Normal 09-14 [facility] Comment on above: Result Comment: Canc elled via OM: Order cancelled - Patient discharged Performed By: #### L 100.0100, L500.2500 ####[facility] [address] [place], [address] Calcium Normal 7.6-11.0 [facility] Comment on above: Result Comment: Canc elled via OM: Order cancelled - Patient discharged Performed By: #### L 100.0100, L500.2500 ####[facility] [address] [place], [address] CL Normal 98-108 [facility] Comment on above: Result Comment: Canc elled via OM: Order cancelled - Patient discharged Performed By: #### L 100.0100, L500.2500 ####[facility] [address] [place], [address] CO2 Normal 21.0-32.0 [facility] Comment on above: Result Comment: Canc elled via OM: Order cancelled - Patient discharged Performed By: #### L 100.0100, L500.2500 ####[facility] [address] [place], [address] CREAT,SERUM Normal 0.70-1.20 [facility] Comment on above: Result Comment: Canc elled via OM: Order cancelled - Patient discharged Performed By: #### L 100.0100, L500.2500 ####[facility] [address] [place], [address] eGFR Normal >60 [facility] Comment on above: Result Comment: Canc elled via OM: Order cancelled - Patient discharged Performed By: #### L 100.0100, L500.2500 ####[facility] [address] [place], [address] GAP Normal 5-15 [facility] Comment on above: Result Comment: Canc elled via OM: Order cancelled - Patient discharged Performed By: #### L 100.0100, L500.2500 ####[facility] [address] [place], [address] GLU Normal 70-99 [facility] Comment on above: Result Comment: Canc elled via OM: Order cancelled - Patient discharged Performed By: #### L 100.0100, L500.2500 ####[facility] [address] [place], [address] Potassium Normal 3.3-5.1 [facility] Comment on above: Result Comment: Canc elled via OM: Order cancelled - Patient discharged Performed By: #### L 100.0100, L500.2500 ####[facility] [address] [place], [address] Basic Metabolic Profile (BMP) Normal 133-145 [facility] Comment on above: Result Comment: Canc elled via OM: Order cancelled - Patient discharged Performed By: #### L 100.0100, L500.2500 ####[facility] [address] [place], [address] CBC W/Diff, Automatedon 05-0 -2024 Absolute Neut Normal 2.0-7.7 [facility] Comment on above: Result Comment: Canc elled via OM: Order cancelled - Patient discharged Performed By: #### L 100.0100, L500.2500 ####[facility] [address] [place], [address] HCT Normal 37-47 [facility] Comment on above: Result Comment: Canc elled via OM: Order cancelled - Patient discharged Performed By: #### L 100.0100, L500.2500 ####[facility] [address] [place], [address] HGB Normal 12.0-15.0 [facility] Comment on above: Result Comment: Canc elled via OM: Order cancelled - Patient discharged Performed By: #### L 100.0100, L500.2500 ####[facility] [address] [place], [address] MCH Normal 27.0-32.0 [facility] Comment on above: Result Comment: Canc elled via OM: Order cancelled - Patient discharged Performed By: #### L 100.0100, L500.2500 ####[facility] [address] [place], [address] MCHC Normal 32-36 [facility] Comment on above: Result Comment: Canc elled via OM: Order cancelled - Patient discharged Performed By: #### L 100.0100, L500.2500 ####[facility] [address] [place], [address] MCV Normal 81-99 [facility] Comment on above: Result Comment: Canc elled via OM: Order cancelled - Patient discharged Performed By: #### L 100.0100, L500.2500 ####[facility] [address] [place], [address] NEUT% Normal 47-70 [facility] Comment on above: Result Comment: Canc elled via OM: Order cancelled - Patient discharged Performed By: #### L 100.0100, L500.2500 ####[facility] [address] [place], [address] PLT Normal 150-450 [facility] Comment on above: Result Comment: Canc elled via OM: Order cancelled - Patient discharged Performed By: #### L 100.0100, L500.2500 ####[facility] [address] [place], [address] RBC Normal 4.2-5.4 [facility] Comment on above: Result Comment: Canc elled via OM: Order cancelled - Patient discharged Performed By: #### L 100.0100, L500.2500 ####[facility] [address] [place], [address] RDW CV Normal 11.6-14.6 [facility] Comment on above: Result Comment: Canc elled via OM: Order cancelled - Patient discharged Performed By: #### L 100.0100, L500.2500 ####[facility] [address] [place], [address] RDW SD Normal 35.1-43.9 [facility] Comment on above: Result Comment: Canc elled via OM: Order cancelled - Patient discharged Performed By: #### L 100.0100, L500.2500 ####[facility] [address] [place], [address] WBC Normal 4.4-11.0 [facility] Comment on above: Result Comment: Canc elled via OM: Order cancelled - Patient discharged Performed By: #### L 100.0100, L500.2500 ####[facility] [address] [place], [address] International normalized rat io (INR) calculationOrdered By: Genia Chappell on 03-31-2025 INR Coag (Bld) [Relative time] 1.2 {INR} [facility] Prothrombin Time w/INRon INR Coag (PPP) [Relative time] 1.2 {INR} Normal [facility] Comment on above: Performed By: #### L 300.3900 ####[facility] [address] [place], [address] PT Coag (PPP) [Time] 15.8 s High 11.7-14.9 [facility] Comment on above: Performed By: #### L 300.3900 ####[facility] [address] [place], [address] Prothrombin timeOrdered By: Genia Chappell on 03-31-2025 PT Coag (PPP) [Time] 15.8 s High 11.7-14.9 [facility] Basic Metabolic Profile (BMP )on 03-30-2025 BUN Normal 4-19 [facility] Comment on above: Result Comment: Canc elled via OM: Order cancelled - Patient discharged Performed By: #### L 100.0100, L500.2500 ####[facility] [address] [place], [address] BUN/CRE Normal 10-20 [facility] Comment on above: Result Comment: Canc elled via OM: Order cancelled - Patient discharged Performed By: #### L 100.0100, L500.2500 ####[facility] [address] [place], [address] Calcium Normal 7.6-11.0 [facility] Comment on above: Result Comment: Canc elled via OM: Order cancelled - Patient discharged Performed By: #### L 100.0100, L500.2500 ####[facility] [address] [place], [address] CL Normal 98-108 [facility] Comment on above: Result Comment: Canc elled via OM: Order cancelled - Patient discharged Performed By: #### L 100.0100, L500.2500 ####[facility] [address] [place], [address] CO2 Normal 21.0-32.0 [facility] Comment on above: Result Comment: Canc elled via OM: Order cancelled - Patient discharged Performed By: #### L 100.0100, L500.2500 ####[facility] [address] [place], [address] CREAT,SERUM Normal 0.70-1.20 [facility] Comment on above: Result Comment: Canc elled via OM: Order cancelled - Patient discharged Performed By: #### L 100.0100, L500.2500 ####[facility] [address] [place], [address] eGFR Normal >60 [facility] Comment on above: Result Comment: Canc elled via OM: Order cancelled - Patient discharged Performed By: #### L 100.0100, L500.2500 ####[facility] [address] [place], [address] GAP Normal 5-15 [facility] Comment on above: Result Comment: Canc elled via OM: Order cancelled - Patient discharged Performed By: #### L 100.0100, L500.2500 ####[facility] [address] [place], [address] GLU Normal 70-99 [facility] Comment on above: Result Comment: Canc elled via OM: Order cancelled - Patient discharged Performed By: #### L 100.0100, L500.2500 ####[facility] [address] [place], [address] Potassium Normal 3.3-5.1 [facility] Comment on above: Result Comment: Canc elled via OM: Order cancelled - Patient discharged Performed By: #### L 100.0100, L500.2500 ####[facility] [address] [place], [address] Basic Metabolic Profile (BMP) Normal 133-145 [facility] Comment on above: Result Comment: Canc elled via OM: Order cancelled - Patient discharged Performed By: #### L 100.0100, L500.2500 ####[facility] [address] [place], [address] CBC W/Diff, Automatedon 05-0 5-2024 Absolute Neut Normal 2.0-7.7 [facility] Comment on above: Result Comment: Canc elled via OM: Order cancelled - Patient discharged Performed By: #### L 100.0100, L500.2500 ####[facility] [address] [place], [address] HCT Normal 37-47 [facility] Comment on above: Result Comment: Canc elled via OM: Order cancelled - Patient discharged Performed By: #### L 100.0100, L500.2500 ####[facility] [address] [place], [address] HGB Normal 12.0-15.0 [facility] Comment on above: Result Comment: Canc elled via OM: Order cancelled - Patient discharged Performed By: #### L 100.0100, L500.2500 ####[facility] [address] [place], [address] MCH Normal 27.0-32.0 [facility] Comment on above: Result Comment: Canc elled via OM: Order cancelled - Patient discharged Performed By: #### L 100.0100, L500.2500 ####[facility] [address] [place], [address] MCHC Normal 32-36 [facility] Comment on above: Result Comment: Canc elled via OM: Order cancelled - Patient discharged Performed By: #### L 100.0100, L500.2500 ####[facility] [address] [place], [address] MCV Normal 81-99 [facility] Comment on above: Result Comment: Canc elled via OM: Order cancelled - Patient discharged Performed By: #### L 100.0100, L500.2500 ####[facility] [address] [place], [address] NEUT% Normal 47-70 [facility] Comment on above: Result Comment: Canc elled via OM: Order cancelled - Patient discharged Performed By: #### L 100.0100, L500.2500 ####[facility] [address] [place], [address] PLT Normal 150-450 [facility] Comment on above: Result Comment: Canc elled via OM: Order cancelled - Patient discharged Performed By: #### L 100.0100, L500.2500 ####[facility] [address] [place], [address] RBC Normal 4.2-5.4 [facility] Comment on above: Result Comment: Canc elled via OM: Order cancelled - Patient discharged Performed By: #### L 100.0100, L500.2500 ####[facility] [address] [place], [address] RDW CV Normal 11.6-14.6 [facility] Comment on above: Result Comment: Canc elled via OM: Order cancelled - Patient discharged Performed By: #### L 100.0100, L500.2500 ####[facility] [address] [place], [address] RDW SD Normal 35.1-43.9 [facility] Comment on above: Result Comment: Canc elled via OM: Order cancelled - Patient discharged Performed By: #### L 100.0100, L500.2500 ####[facility] [address] [place], [address] WBC Normal 4.4-11.0 [facility] Comment on above: Result Comment: Canc elled via OM: Order cancelled - Patient discharged Performed By: #### L 100.0100, L500.2500 ####[facility] [address] [place], [address] Chest PA and Lateralon 03-30 Chest PA and Lateral Normal [facility] Basic Metabolic Profile (BMP )on 03-29-2025 BUN Normal 4-19 [facility] Comment on above: Performed By: #### L 500.2500, L100.0100 ####[facility] [address] [place], [address] BUN/CRE Normal 10-20 [facility] Comment on above: Performed By: #### L 500.2500, L100.0100 ####[facility] [address] [place], [address] Calcium Normal 7.6-11.0 [facility] Comment on above: Performed By: #### L 500.2500, L100.0100 ####[facility] [address] [place], [address] CL Normal 98-108 [facility] Comment on above: Performed By: #### L 500.2500, L100.0100 ####[facility] [address] [place], [address] CO2 Normal 21.0-32.0 [facility] Comment on above: Performed By: #### L 500.2500, L100.0100 ####[facility] [address] [place], [address] CREAT,SERUM Normal 0.70-1.20 [facility] Comment on above: Performed By: #### L 500.2500, L100.0100 ####[facility] [address] [place], [address] eGFR Normal >60 [facility] Comment on above: Performed By: #### L 500.2500, L100.0100 ####[facility] [address] [place], [address] GAP Normal 5-15 [facility] Comment on above: Performed By: #### L 500.2500, L100.0100 ####[facility] [address] [place], [address] GLU Normal 70-99 [facility] Comment on above: Performed By: #### L 500.2500, L100.0100 ####[facility] [address] [place], [address] Potassium Normal 3.3-5.1 [facility] Comment on above: Performed By: #### L 500.2500, L100.0100 ####[facility] [address] [place], [address] Basic Metabolic Profile (BMP) Normal 133-145 [facility] Comment on above: Performed By: #### L 500.2500, L100.0100 ####[facility] [address] [place], [address] CBC W/Diff, Automatedon 05-0 Absolute Neut Normal 2.0-7.7 [facility] Comment on above: Result Comment: Canc elled via OM: Order cancelled - Patient discharged Performed By: #### L 500.2500, L100.0100 ####[facility] [address] [place], [address] HCT Normal 37-47 [facility] Comment on above: Result Comment: Canc elled via OM: Order cancelled - Patient discharged Performed By: #### L 500.2500, L100.0100 ####[facility] [address] [place], [address] HGB Normal 12.0-15.0 [facility] Comment on above: Result Comment: Canc elled via OM: Order cancelled - Patient discharged Performed By: #### L 500.2500, L100.0100 ####[facility] [address] [place], [address] MCH Normal 27.0-32.0 [facility] Comment on above: Result Comment: Canc elled via OM: Order cancelled - Patient discharged Performed By: #### L 500.2500, L100.0100 ####[facility] [address] [place], [address] MCHC Normal 32-36 [facility] Comment on above: Result Comment: Canc elled via OM: Order cancelled - Patient discharged Performed By: #### L 500.2500, L100.0100 ####[facility] [address] [place], [address] MCV Normal 81-99 [facility] Comment on above: Result Comment: Canc elled via OM: Order cancelled - Patient discharged Performed By: #### L 500.2500, L100.0100 ####[facility] [address] [place], [address] NEUT% Normal 47-70 [facility] Comment on above: Result Comment: Canc elled via OM: Order cancelled - Patient discharged Performed By: #### L 500.2500, L100.0100 ####[facility] [address] [place], [address] PLT Normal 150-450 [facility] Comment on above: Result Comment: Canc elled via OM: Order cancelled - Patient discharged Performed By: #### L 500.2500, L100.0100 ####[facility] [address] [place], [address] RBC Normal 4.2-5.4 [facility] Comment on above: Result Comment: Canc elled via OM: Order cancelled - Patient discharged Performed By: #### L 500.2500, L100.0100 ####[facility] [address] [place], [address] RDW CV Normal 11.6-14.6 [facility] Comment on above: Result Comment: Canc elled via OM: Order cancelled - Patient discharged Performed By: #### L 500.2500, L100.0100 ####[facility] [address] [place], [address] RDW SD Normal 35.1-43.9 [facility] Comment on above: Result Comment: Canc elled via OM: Order cancelled - Patient discharged Performed By: #### L 500.2500, L100.0100 ####[facility] [address] [place], [address] WBC Normal 4.4-11.0 [facility] Comment on above: Result Comment: Canc elled via OM: Order cancelled - Patient discharged Performed By: #### L 500.2500, L100.0100 ####[facility] [address] [place], [address] Basic Metabolic Profile (BMP )on 03-28-2025 BUN Normal 4-19 [facility] Comment on above: Result Comment: Canc elled via OM: Order cancelled - Patient discharged Performed By: #### L 500.2500, L100.0100 ####[facility] [address] [place], [address] BUN/CRE Normal 10-20 [facility] Comment on above: Result Comment: Canc elled via OM: Order cancelled - Patient discharged Performed By: #### L 500.2500, L100.0100 ####[facility] [address] [place], [address] Calcium Normal 7.6-11.0 [facility] Comment on above: Result Comment: Canc elled via OM: Order cancelled - Patient discharged Performed By: #### L 500.2500, L100.0100 ####[facility] [address] [place], [address] CL Normal 98-108 [facility] Comment on above: Result Comment: Canc elled via OM: Order cancelled - Patient discharged Performed By: #### L 500.2500, L100.0100 ####[facility] [address] [place], [address] CO2 Normal 21.0-32.0 [facility] Comment on above: Result Comment: Canc elled via OM: Order cancelled - Patient discharged Performed By: #### L 500.2500, L100.0100 ####[facility] [address] [place], [address] CREAT,SERUM Normal 0.70-1.20 [facility] Comment on above: Result Comment: Canc elled via OM: Order cancelled - Patient discharged Performed By: #### L 500.2500, L100.0100 ####[facility] [address] [place], [address] eGFR Normal >60 [facility] Comment on above: Result Comment: Canc elled via OM: Order cancelled - Patient discharged Performed By: #### L 500.2500, L100.0100 ####[facility] [address] [place], [address] GAP Normal 5-15 [facility] Comment on above: Result Comment: Canc elled via OM: Order cancelled - Patient discharged Performed By: #### L 500.2500, L100.0100 ####[facility] [address] [place], [address] GLU Normal 70-99 [facility] Comment on above: Result Comment: Canc elled via OM: Order cancelled - Patient discharged Performed By: #### L 500.2500, L100.0100 ####[facility] [address] [place], [address] Potassium Normal 3.3-5.1 [facility] Comment on above: Result Comment: Canc elled via OM: Order cancelled - Patient discharged Performed By: #### L 500.2500, L100.0100 ####[facility] [address] [place], [address] Basic Metabolic Profile (BMP) Normal 133-145 [facility] Comment on above: Result Comment: Canc elled via OM: Order cancelled - Patient discharged Performed By: #### L 500.2500, L100.0100 ####[facility] [address] [place], [address] CBC W/Diff, Automatedon 05-0 -2024 Absolute Neut Normal 2.0-7.7 [facility] Comment on above: Result Comment: Canc elled via OM: Order cancelled - Patient discharged Performed By: #### L 500.2500, L100.0100 ####[facility] [address] [place], [address] HCT Normal 37-47 [facility] Comment on above: Result Comment: Canc elled via OM: Order cancelled - Patient discharged Performed By: #### L 500.2500, L100.0100 ####[facility] [address] [place], [address] HGB Normal 12.0-15.0 [facility] Comment on above: Result Comment: Canc elled via OM: Order cancelled - Patient discharged Performed By: #### L 500.2500, L100.0100 ####[facility] [address] [place], [address] MCH Normal 27.0-32.0 [facility] Comment on above: Result Comment: Canc elled via OM: Order cancelled - Patient discharged Performed By: #### L 500.2500, L100.0100 ####[facility] [address] [place], [address] MCHC Normal 32-36 [facility] Comment on above: Result Comment: Canc elled via OM: Order cancelled - Patient discharged Performed By: #### L 500.2500, L100.0100 ####[facility] [address] [place], [address] MCV Normal 81-99 [facility] Comment on above: Result Comment: Canc elled via OM: Order cancelled - Patient discharged Performed By: #### L 500.2500, L100.0100 ####[facility] [address] [place], [address] NEUT% Normal 47-70 [facility] Comment on above: Result Comment: Canc elled via OM: Order cancelled - Patient discharged Performed By: #### L 500.2500, L100.0100 ####[facility] [address] [place], [address] PLT Normal 150-450 [facility] Comment on above: Result Comment: Canc elled via OM: Order cancelled - Patient discharged Performed By: #### L 500.2500, L100.0100 ####[facility] [address] [place], [address] RBC Normal 4.2-5.4 [facility] Comment on above: Result Comment: Canc elled via OM: Order cancelled - Patient discharged Performed By: #### L 500.2500, L100.0100 ####[facility] [address] [place], [address] RDW CV Normal 11.6-14.6 [facility] Comment on above: Result Comment: Canc elled via OM: Order cancelled - Patient discharged Performed By: #### L 500.2500, L100.0100 ####[facility] [address] [place], [address] RDW SD Normal 35.1-43.9 [facility] Comment on above: Result Comment: Canc elled via OM: Order cancelled - Patient discharged Performed By: #### L 500.2500, L100.0100 ####[facility] [address] [place], [address] WBC Normal 4.4-11.0 [facility] Comment on above: Result Comment: Canc elled via OM: Order cancelled - Patient discharged Performed By: #### L 500.2500, L100.0100 ####[facility] [address] [place], [address] Basic Metabolic Profile (BMP )on 03-27-2025 BUN Normal 4-19 [facility] Comment on above: Result Comment: Canc elled via OM: Order cancelled - Patient discharged Performed By: #### L 500.2500, L100.0100 ####[facility] [address] [place], [address] BUN/CRE Normal 10-20 [facility] Comment on above: Result Comment: Canc elled via OM: Order cancelled - Patient discharged Performed By: #### L 500.2500, L100.0100 ####[facility] [address] [place], [address] Calcium Normal 7.6-11.0 [facility] Comment on above: Result Comment: Canc elled via OM: Order cancelled - Patient discharged Performed By: #### L 500.2500, L100.0100 ####[facility] [address] [place], [address] CL Normal 98-108 [facility] Comment on above: Result Comment: Canc elled via OM: Order cancelled - Patient discharged Performed By: #### L 500.2500, L100.0100 ####[facility] [address] [place], [address] CO2 Normal 21.0-32.0 [facility] Comment on above: Result Comment: Canc elled via OM: Order cancelled - Patient discharged Performed By: #### L 500.2500, L100.0100 ####[facility] [address] [place], [address] CREAT,SERUM Normal 0.70-1.20 [facility] Comment on above: Result Comment: Canc elled via OM: Order cancelled - Patient discharged Performed By: #### L 500.2500, L100.0100 ####[facility] [address] [place], [address] eGFR Normal >60 [facility] Comment on above: Result Comment: Canc elled via OM: Order cancelled - Patient discharged Performed By: #### L 500.2500, L100.0100 ####[facility] [address] [place], [address] GAP Normal 5-15 [facility] Comment on above: Result Comment: Canc elled via OM: Order cancelled - Patient discharged Performed By: #### L 500.2500, L100.0100 ####[facility] [address] [place], [address] GLU Normal 70-99 [facility] Comment on above: Result Comment: Canc elled via OM: Order cancelled - Patient discharged Performed By: #### L 500.2500, L100.0100 ####[facility] [address] [place], [address] Potassium Normal 3.3-5.1 [facility] Comment on above: Result Comment: Canc elled via OM: Order cancelled - Patient discharged Performed By: #### L 500.2500, L100.0100 ####[facility] [address] [place], [address] Basic Metabolic Profile (BMP) Normal 133-145 [facility] Comment on above: Result Comment: Canc elled via OM: Order cancelled - Patient discharged Performed By: #### L 500.2500, L100.0100 ####[facility] [address] [place], [address] CBC W/Diff, Automatedon 05-0 2-5 Absolute Neut Normal 2.0-7.7 [facility] Comment on above: Result Comment: Canc elled via OM: Order cancelled - Patient discharged Performed By: #### L 500.2500, L100.0100 ####[facility] [address] [place], [address] HCT Normal 37-47 [facility] Comment on above: Result Comment: Canc elled via OM: Order cancelled - Patient discharged Performed By: #### L 500.2500, L100.0100 ####[facility] [address] [place], [address] HGB Normal 12.0-15.0 [facility] Comment on above: Result Comment: Canc elled via OM: Order cancelled - Patient discharged Performed By: #### L 500.2500, L100.0100 ####[facility] [address] [place], [address] MCH Normal 27.0-32.0 [facility] Comment on above: Result Comment: Canc elled via OM: Order cancelled - Patient discharged Performed By: #### L 500.2500, L100.0100 ####[facility] [address] [place], [address] MCHC Normal 32-36 [facility] Comment on above: Result Comment: Canc elled via OM: Order cancelled - Patient discharged Performed By: #### L 500.2500, L100.0100 ####[facility] [address] [place], [address] MCV Normal 81-99 [facility] Comment on above: Result Comment: Canc elled via OM: Order cancelled - Patient discharged Performed By: #### L 500.2500, L100.0100 ####[facility] [address] [place], [address] NEUT% Normal 47-70 [facility] Comment on above: Result Comment: Canc elled via OM: Order cancelled - Patient discharged Performed By: #### L 500.2500, L100.0100 ####[facility] [address] [place], [address] PLT Normal 150-450 [facility] Comment on above: Result Comment: Canc elled via OM: Order cancelled - Patient discharged Performed By: #### L 500.2500, L100.0100 ####[facility] [address] [place], [address] RBC Normal 4.2-5.4 [facility] Comment on above: Result Comment: Canc elled via OM: Order cancelled - Patient discharged Performed By: #### L 500.2500, L100.0100 ####[facility] [address] [place], [address] RDW CV Normal 11.6-14.6 [facility] Comment on above: Result Comment: Canc elled via OM: Order cancelled - Patient discharged Performed By: #### L 500.2500, L100.0100 ####[facility] [address] [place], [address] RDW SD Normal 35.1-43.9 [facility] Comment on above: Result Comment: Canc elled via OM: Order cancelled - Patient discharged Performed By: #### L 500.2500, L100.0100 ####[facility] [address] [place], [address] WBC Normal 4.4-11.0 [facility] Comment on above: Result Comment: Canc elled via OM: Order cancelled - Patient discharged Performed By: #### L 500.2500, L100.0100 ####[facility] [address] [place], [address] Basic Metabolic Profile (BMP )on 03-26-2025 BUN Normal 4-19 [facility] Comment on above: Result Comment: Canc elled via OM: Order cancelled - Patient discharged Performed By: #### L 100.0100, L500.2500 ####[facility] [address] [place], [address] BUN/CRE Normal 10-20 [facility] Comment on above: Result Comment: Canc elled via OM: Order cancelled - Patient discharged Performed By: #### L 100.0100, L500.2500 ####[facility] [address] [place], [address] Calcium Normal 7.6-11.0 [facility] Comment on above: Result Comment: Canc elled via OM: Order cancelled - Patient discharged Performed By: #### L 100.0100, L500.2500 ####[facility] [address] [place], [address] CL Normal 98-108 [facility] Comment on above: Result Comment: Canc elled via OM: Order cancelled - Patient discharged Performed By: #### L 100.0100, L500.2500 ####[facility] [address] [place], [address] CO2 Normal 21.0-32.0 [facility] Comment on above: Result Comment: Canc elled via OM: Order cancelled - Patient discharged Performed By: #### L 100.0100, L500.2500 ####[facility] [address] [place], [address] CREAT,SERUM Normal 0.70-1.20 [facility] Comment on above: Result Comment: Canc elled via OM: Order cancelled - Patient discharged Performed By: #### L 100.0100, L500.2500 ####[facility] [address] [place], [address] eGFR Normal >60 [facility] Comment on above: Result Comment: Canc elled via OM: Order cancelled - Patient discharged Performed By: #### L 100.0100, L500.2500 ####[facility] [address] [place], [address] GAP Normal 5-15 [facility] Comment on above: Result Comment: Canc elled via OM: Order cancelled - Patient discharged Performed By: #### L 100.0100, L500.2500 ####[facility] [address] [place], [address] GLU Normal 70-99 [facility] Comment on above: Result Comment: Canc elled via OM: Order cancelled - Patient discharged Performed By: #### L 100.0100, L500.2500 ####[facility] [address] [place], [address] Potassium Normal 3.3-5.1 [facility] Comment on above: Result Comment: Canc elled via OM: Order cancelled - Patient discharged Performed By: #### L 100.0100, L500.2500 ####[facility] [address] [place], [address] Basic Metabolic Profile (BMP) Normal 133-145 [facility] Comment on above: Result Comment: Canc elled via OM: Order cancelled - Patient discharged Performed By: #### L 100.0100, L500.2500 ####[facility] [address] [place], [address] CBC W/Diff, Automatedon 05-0 -2024 Absolute Neut Normal 2.0-7.7 [facility] Comment on above: Result Comment: Canc elled via OM: Order cancelled - Patient discharged Performed By: #### L 100.0100, L500.2500 ####[facility] [address] [place], [address] HCT Normal 37-47 [facility] Comment on above: Result Comment: Canc elled via OM: Order cancelled - Patient discharged Performed By: #### L 100.0100, L500.2500 ####[facility] [address] [place], [address] HGB Normal 12.0-15.0 [facility] Comment on above: Result Comment: Canc elled via OM: Order cancelled - Patient discharged Performed By: #### L 100.0100, L500.2500 ####[facility] [address] [place], [address] MCH Normal 27.0-32.0 [facility] Comment on above: Result Comment: Canc elled via OM: Order cancelled - Patient discharged Performed By: #### L 100.0100, L500.2500 ####[facility] [address] [place], [address] MCHC Normal 32-36 [facility] Comment on above: Result Comment: Canc elled via OM: Order cancelled - Patient discharged Performed By: #### L 100.0100, L500.2500 ####[facility] [address] [place], [address] MCV Normal 81-99 [facility] Comment on above: Result Comment: Canc elled via OM: Order cancelled - Patient discharged Performed By: #### L 100.0100, L500.2500 ####[facility] [address] [place], [address] NEUT% Normal 47-70 [facility] Comment on above: Result Comment: Canc elled via OM: Order cancelled - Patient discharged Performed By: #### L 100.0100, L500.2500 ####[facility] [address] [place], [address] PLT Normal 150-450 [facility] Comment on above: Result Comment: Canc elled via OM: Order cancelled - Patient discharged Performed By: #### L 100.0100, L500.2500 ####[facility] [address] [place], [address] RBC Normal 4.2-5.4 [facility] Comment on above: Result Comment: Canc elled via OM: Order cancelled - Patient discharged Performed By: #### L 100.0100, L500.2500 ####[facility] [address] [place], [address] RDW CV Normal 11.6-14.6 [facility] Comment on above: Result Comment: Canc elled via OM: Order cancelled - Patient discharged Performed By: #### L 100.0100, L500.2500 ####[facility] [address] [place], [address] RDW SD Normal 35.1-43.9 [facility] Comment on above: Result Comment: Canc elled via OM: Order cancelled - Patient discharged Performed By: #### L 100.0100, L500.2500 ####[facility] [address] [place], [address] WBC Normal 4.4-11.0 [facility] Comment on above: Result Comment: Canc elled via OM: Order cancelled - Patient discharged Performed By: #### L 100.0100, L500.2500 ####[facility] [address] [place], [address] Respiratory Cultureon 2024 RESPC Normal [facility] Comment on above: Performed By: #### M 100.2400, M100.2000 ####[facility] [address] [place], [address] 12 Lead EKGon 03-25-2025 12 Lead EKG Normal [facility] Absolute lymphocyte countOrd ered By: Jose Armando Wood on 03-25-2025 Lymphocytes Auto (Unsp spec) [#/Vol] 1.08 10*3/uL 0.83-4.51 [facility] Absolute neutrophil countOrd ered By: Jose Armando Wood on 03-25-2025 Neutrophils (Bld) [#/Vol] 22.6 10*3/uL High 2.0-7.7 [facility] Anion gap in Serum or Plasma Ordered By: Jose Armando Wood on 03-25-2025 Anion gap [Moles/Vol] 9 mmol/L 5-15 [facility] Automated lymphocyte count a s percentage of total leukocytesOrdered By: Jose Armando Wood on 03-25-2025 Lymphocytes/100 WBC Auto (Unsp spec) 4.2 % Low 19-41 [facility] BUN/creatinine ratioOrdered By: Jose Armando Wood on 03-25-2025 Urea nitrogen/Creatinine [Mass ratio] 41.3 mg/mg High 10-20 [facility] Basic Metabolic Profile (BMP )on 03-25-2025 BUN/CRE 41.3 RATIO High 10-20 [facility] Comment on above: Performed By: #### L 500.2500, L100.0100 ####[facility] [address] [place], [address] Calcium [Mass/Vol] 9.3 mg/dL Normal 7.6-11.0 [facility] Comment on above: Performed By: #### L 500.2500, L100.0100 ####[facility] [address] [place], [address] Chloride [Moles/Vol] 87 mmol/L Low 98-108 [facility] Comment on above: Performed By: #### L 500.2500, L100.0100 ####[facility] [address] [place], [address] CO2 [Moles/Vol] 38.5 mmol/L High 21.0-32.0 [facility] Comment on above: Performed By: #### L 500.2500, L100.0100 ####[facility] [address] [place], [address] Creatinine [Mass/Vol] 0.80 mg/dL Normal 0.70-1.20 [facility] Comment on above: Performed By: #### L 500.2500, L100.0100 ####[facility] [address] [place], [address] ECRCL 74.62 ml/min Normal 50-250 [facility] Comment on above: Performed By: #### L 500.2500, L100.0100 ####[facility] [address] [place], [address] GAP 9 Normal 5-15 [facility] Comment on above: Performed By: #### L 500.2500, L100.0100 ####[facility] [address] [place], [address] GFR/1.73 sq M.predicted among non-blacks MDRD (S/P/Bld) [Vol rate/Area] 78 mL/min/{1.73_m2} Normal >60 [facility] Comment on above: Result Comment: mL/m in/1.73m2 CKD-EPI Creatinine Equation (2020) Performed By: #### L 500.2500, L100.0100 ####[facility] [address] [place], [address] Glucose [Mass/Vol] 188 mg/dL High 70-99 [facility] Comment on above: Performed By: #### L 500.2500, L100.0100 ####[facility] [address] [place], [address] Potassium [Moles/Vol] 4.9 mmol/L Normal 3.3-5.1 [facility] Comment on above: Performed By: #### L 500.2500, L100.0100 ####[facility] [address] [place], [address] Sodium [Moles/Vol] 135 mmol/L Normal 133-145 [facility] Comment on above: Performed By: #### L 500.2500, L100.0100 ####[facility] [address] [place], [address] Urea nitrogen [Mass/Vol] 33 mg/dL High 4-19 [facility] Comment on above: Performed By: #### L 500.2500, L100.0100 ####[facility] [address] [place], [address] BUN Normal 4-19 [facility] Comment on above: Result Comment: Canc elled via OM: Order cancelled - Patient discharged Performed By: #### L 500.2500, L100.0100 ####[facility] [address] [place], [address] BUN/CRE Normal 10-20 [facility] Comment on above: Result Comment: Canc elled via OM: Order cancelled - Patient discharged Performed By: #### L 500.2500, L100.0100 ####[facility] [address] [place], [address] Calcium Normal 7.6-11.0 [facility] Comment on above: Result Comment: Canc elled via OM: Order cancelled - Patient discharged Performed By: #### L 500.2500, L100.0100 ####[facility] [address] [place], [address] CL Normal 98-108 [facility] Comment on above: Result Comment: Canc elled via OM: Order cancelled - Patient discharged Performed By: #### L 500.2500, L100.0100 ####[facility] [address] [place], [address] CO2 Normal 21.0-32.0 [facility] Comment on above: Result Comment: Canc elled via OM: Order cancelled - Patient discharged Performed By: #### L 500.2500, L100.0100 ####[facility] [address] [place], [address] CREAT,SERUM Normal 0.70-1.20 [facility] Comment on above: Result Comment: Canc elled via OM: Order cancelled - Patient discharged Performed By: #### L 500.2500, L100.0100 ####[facility] [address] [place], [address] eGFR Normal >60 [facility] Comment on above: Result Comment: Canc elled via OM: Order cancelled - Patient discharged Performed By: #### L 500.2500, L100.0100 ####[facility] [address] [place], [address] GAP Normal 5-15 [facility] Comment on above: Result Comment: Canc elled via OM: Order cancelled - Patient discharged Performed By: #### L 500.2500, L100.0100 ####[facility] [address] [place], [address] GLU Normal 70-99 [facility] Comment on above: Result Comment: Canc elled via OM: Order cancelled - Patient discharged Performed By: #### L 500.2500, L100.0100 ####[facility] [address] [place], [address] Potassium Normal 3.3-5.1 [facility] Comment on above: Result Comment: Canc elled via OM: Order cancelled - Patient discharged Performed By: #### L 500.2500, L100.0100 ####[facility] [address] [place], [address] Basic Metabolic Profile (BMP) Normal 133-145 [facility] Comment on above: Result Comment: Canc elled via OM: Order cancelled - Patient discharged Performed By: #### L 500.2500, L100.0100 ####[facility] [address] [place], [address] Basophil percentageOrdered B y: Jose Armando Wood on 03-25-2025 Basophils/100 WBC (Bld) 0.2 % 0-1 [facility] Blood manual differential co mment interpretation (narrative result)Ordered By: Jose Armando Wood on 03-25-2025 Manual differential comment Eugene (Bld) [Interp] COMMENT [facility] Comment on above: NEUTROPHILIA.MONCYTO SIS. CBC W/Diff, Automatedon 02-26 SMEAR COMMENT COMMENT Normal [facility] Comment on above: Result Comment: NEUT ROPHILIA.MONCYTOSIS. Performed By: #### L 500.2500, L100.0100 ####[facility] [address] [place], [address] Absolute Neut Normal 2.0-7.7 [facility] Comment on above: Result Comment: Canc elled via OM: Order cancelled - Patient discharged Performed By: #### L 500.2500, L100.0100 ####[facility] [address] [place], [address] HCT Normal 37-47 [facility] Comment on above: Result Comment: Canc elled via OM: Order cancelled - Patient discharged Performed By: #### L 500.2500, L100.0100 ####[facility] [address] [place], [address] HGB Normal 12.0-15.0 [facility] Comment on above: Result Comment: Canc elled via OM: Order cancelled - Patient discharged Performed By: #### L 500.2500, L100.0100 ####[facility] [address] [place], [address] MCH Normal 27.0-32.0 [facility] Comment on above: Result Comment: Canc elled via OM: Order cancelled - Patient discharged Performed By: #### L 500.2500, L100.0100 ####[facility] [address] [place], [address] MCHC Normal 32-36 [facility] Comment on above: Result Comment: Canc elled via OM: Order cancelled - Patient discharged Performed By: #### L 500.2500, L100.0100 ####[facility] [address] [place], [address] MCV Normal 81-99 [facility] Comment on above: Result Comment: Canc elled via OM: Order cancelled - Patient discharged Performed By: #### L 500.2500, L100.0100 ####[facility] [address] [place], [address] NEUT% Normal 47-70 [facility] Comment on above: Result Comment: Canc elled via OM: Order cancelled - Patient discharged Performed By: #### L 500.2500, L100.0100 ####[facility] [address] [place], [address] PLT Normal 150-450 [facility] Comment on above: Result Comment: Canc elled via OM: Order cancelled - Patient discharged Performed By: #### L 500.2500, L100.0100 ####[facility] [address] [place], [address] RBC Normal 4.2-5.4 [facility] Comment on above: Result Comment: Canc elled via OM: Order cancelled - Patient discharged Performed By: #### L 500.2500, L100.0100 ####[facility] [address] [place], [address] RDW CV Normal 11.6-14.6 [facility] Comment on above: Result Comment: Canc elled via OM: Order cancelled - Patient discharged Performed By: #### L 500.2500, L100.0100 ####[facility] [address] [place], [address] RDW SD Normal 35.1-43.9 [facility] Comment on above: Result Comment: Canc elled via OM: Order cancelled - Patient discharged Performed By: #### L 500.2500, L100.0100 ####[facility] [address] [place], [address] WBC Normal 4.4-11.0 [facility] Comment on above: Result Comment: Canc elled via OM: Order cancelled - Patient discharged Performed By: #### L 500.2500, L100.0100 ####[facility] [address] [place], [address] Carbon dioxide, total [Moles /volume] in Central venous bloodOrdered By: Jose Armando Wood on 03-25-2025 CO2 [Moles/Vol] 38.5 mmol/L High 21.0-32.0 [facility] Chest 1 View (Portable)on Chest 1 View (Portable) Normal [facility] Chloride assayOrdered By: Tanner Wood on 03-25-2025 Chloride [Moles/Vol] 87 mmol/L Low 98-108 [facility] Summary on 03-25-2025 Emergency Department Summary Normal [facility] Eosinophil percentageOrdered By: Jose Armando Wood on 03-25-2025 Eosinophils/100 WBC (Bld) 0.0 % 0-5 [facility] Erythrocyte distribution wid th ratioOrdered By: Jose Armando Wood on 03-25-2025 Erythrocyte distribution width (RBC) [Ratio] 14.1 % 11.6-14.6 [facility] Erythrocyte distribution wid th standard deviationOrdered By: Jose Armando Wood on 03-25-2025 Erythrocyte distribution width (RBC) [Ratio] 47.7 fl High 35.1-43.9 [facility] Glomerular filtration rate ( GFR) estimation/1.73 sq m using serum, plasma, or whole bOrdered By: Jose Armando Wood on 03-25-2025 GFR/1.73 sq M.predicted among non-blacks MDRD (S/P/Bld) [Vol rate/Area] 78 mL/min/{1.73_m2} >60 [facility] Comment on above: mL/min/1.73m2 CKD-EP I Creatinine Equation (2020) Hematocrit Auto (Bld) [Volum e fraction]Ordered By: Jose Armando Wood on 03-25-2025 Hematocrit (Bld) [Volume fraction] 41.5 % 37-47 [facility] Hemoglobin measurementOrdere d By: Jose Armando Wood on 03-25-2025 Hemoglobin (Bld) [Mass/Vol] 12.8 g/dL 12.0-15.0 [facility] Immature granulocytes/100 WB C Auto (Bld)Ordered By: Jose Armando Wood 03-25-2025 Immature granulocytes/100 WBC (Bld) 0.800 % 0.0-0.9 [facility] Comment on above: IG% - Immature Granu locytes (promyelocytes, myelocytes and metamyelocytes) > 1% indicates that a LEFT SHIFT is Present. MCV (mean corpuscular volume ) determinationOrdered By: Jose Armando Wood on 03-25-2025 MCV (RBC) [Entitic vol] 92.8 fL 81-99 [facility] Mean corpuscular hemoglobin (MCH) determinationOrdered By: Jose Armando Wood 03-25-2025 MCH (RBC) [Entitic mass] 28.6 pg 27.0-32.0 [facility] Mean corpuscular hemoglobin concentration (MCHC) determinationOrdered By: Jose Armando Wood 03-25-2025 MCHC (RBC) [Mass/Vol] 30.8 g/dL Low 32-36 [facility] Mean platelet volume determi nationOrdered By: Jose Armando Wood on 03-25-2025 Platelet mean volume (Bld) [Entitic vol] 9.9 fL 6.2-12.0 [facility] Monocyte percentageOrdered B y: Jose Armando Wood on 03-25-2025 Monocytes/100 WBC (Bld) 7.8 % 0-10 [facility] Neutrophil percentageOrdered By: Jose Armando Wood on 03-25-2025 Neutrophils/100 WBC (Bld) 87.0 % High 47-70 [facility] Nucleated red blood cell per centageOrdered By: Jose Armando Wood on 03-25-2025 Nucleated RBC/100 WBC (Bld) [Ratio] 0 % 0-5 [facility] Platelet countOrdered By: Tanner Wood on 03-25-2025 Platelets (Bld) [#/Vol] 414 10*3/uL 150-450 [facility] Potassium measurement (mass/ volume)Ordered By: Jose Armando Wood on 03-25-2025 Potassium (Unsp spec) [Mass/Vol] 4.9 mmol/L 3.3-5.1 [facility] RBC Auto (Bld) [#/Vol]Ordere d By: Jose Armando Wood on 03-25-2025 RBC (Bld) [#/Vol] 4.47 10*6/uL 4.2-5.4 [facility] Serum creatinine measurement (mass/volume)Ordered By: Jose Armando Wood on 03-25-2025 Creatinine [Mass/Vol] 0.80 mg/dL 0.70-1.20 [facility] Serum glucose measurement (m ass/volume)Ordered By: Jose Armando Wood on 03-25-2025 Glucose [Mass/Vol] 188 mg/dL High 70-99 [facility] Serum or plasma calcium diallo urement (mass/volume)Ordered By: Jose Armando Wood on 03-25-2025 Calcium [Mass/Vol] 9.3 mg/dL 7.6-11.0 [facility] Serum or plasma urea nitroge n measurement (mass/volume)Ordered By: Jose Armando Wood on 03-25-2025 Urea nitrogen [Mass/Vol] 33 mg/dL High 4-19 [facility] Sodium levelOrdered By: Jose Armando Wood on 03-25-2025 Sodium [Moles/Vol] 135 mmol/L 133-145 [facility] White blood cell (WBC) count Ordered By: Jose Armando Wood on 03-25-2025 WBC (Bld) [#/Vol] 25.9 10*3/uL High 4.4-11.0 [facility] Absolute lymphocyte countOrd ered By: Cindiana Lizarraga on 03-24-2025 Lymphocytes Auto (Unsp spec) [#/Vol] 0.66 10*3/uL Low 0.83-4.51 [facility] Absolute neutrophil countOrd ered By: Cindi Lizarraga on 03-24-2025 Neutrophils (Bld) [#/Vol] 16.2 10*3/uL High 2.0-7.7 [facility] Anion gap in Serum or Plasma Ordered By: Cindi Lizarraga on 03-24-2025 Anion gap [Moles/Vol] 4 mmol/L Low 5-15 [facility] Automated lymphocyte count a s percentage of total leukocytesOrdered By: Cindi Lizarraga on 03-24-2025 Lymphocytes/100 WBC Auto (Unsp spec) 3.6 % Low 19-41 [facility] BUN/creatinine ratioOrdered By: Cindi Lizarraga on 03-24-2025 Urea nitrogen/Creatinine [Mass ratio] 43.1 mg/mg High 10-20 [facility] Basic Metabolic Profile (BMP )on 03-24-2025 BUN/CRE 43.1 RATIO High 10-20 [facility] Comment on above: Performed By: #### L 100.0100, L500.2500 ####[facility] [address] [place], [address] Calcium [Mass/Vol] 9.2 mg/dL Normal 7.6-11.0 [facility] Comment on above: Performed By: #### L 100.0100, L500.2500 ####[facility] [address] [place], [address] Chloride [Moles/Vol] 89 mmol/L Low 98-108 [facility] Comment on above: Performed By: #### L 100.0100, L500.2500 ####[facility] [address] [place], [address] CO2 [Moles/Vol] 40.9 mmol/L High 21.0-32.0 [facility] Comment on above: Performed By: #### L 100.0100, L500.2500 ####[facility] [address] [place], [address] Creatinine [Mass/Vol] 0.74 mg/dL Normal 0.70-1.20 [facility] Comment on above: Performed By: #### L 100.0100, L500.2500 ####[facility] [address] [place], [address] ECRCL 77.65 ml/min Normal 50-250 [facility] Comment on above: Performed By: #### L 100.0100, L500.2500 ####[facility] [address] [place], [address] GAP 4 Low 5-15 [facility] Comment on above: Performed By: #### L 100.0100, L500.2500 ####[facility] [address] [place], [address] GFR/1.73 sq M.predicted among non-blacks MDRD (S/P/Bld) [Vol rate/Area] 87 mL/min/{1.73_m2} Normal >60 [facility] Comment on above: Result Comment: mL/m in/1.73m2 CKD-EPI Creatinine Equation (2020) Performed By: #### L 100.0100, L500.2500 ####[facility] [address] [place], [address] Glucose [Mass/Vol] 163 mg/dL High 70-99 [facility] Comment on above: Performed By: #### L 100.0100, L500.2500 ####[facility] [address] [place], [address] Potassium [Moles/Vol] 5.6 mmol/L High 3.3-5.1 [facility] Comment on above: Performed By: #### L 100.0100, L500.2500 ####[facility] [address] [place], [address] Sodium [Moles/Vol] 134 mmol/L Normal 133-145 [facility] Comment on above: Performed By: #### L 100.0100, L500.2500 ####[facility] [address] [place], [address] Urea nitrogen [Mass/Vol] 32 mg/dL High 4-19 [facility] Comment on above: Performed By: #### L 100.0100, L500.2500 ####[facility] [address] [place], [address] Basophil percentageOrdered B y: Cindi Lizarraga on 03-24-2025 Basophils/100 WBC (Bld) 0.2 % 0-1 [facility] [facility] CBC W/Diff, Automatedon 02-25 Absolute Lymph 0.66 X10 3/uL Low 0.83-4.51 [facility] Comment on above: Performed By: #### L 100.0100, L500.2500 ####[facility] [address] [place], [address] Absolute Neut 16.2 X10 3/uL High 2.0-7.7 [facility] Comment on above: Performed By: #### L 100.0100, L500.2500 ####[facility] [address] [place], [address] Basophils/100 WBC (Bld) 0.2 % Normal 0-1 [facility] Comment on above: Performed By: #### L 100.0100, L500.2500 ####[facility] [address] [place], [address] Eosinophils/100 WBC (Bld) 2.0 % Normal 0-5 [facility] Comment on above: Performed By: #### L 100.0100, L500.2500 ####[facility] [address] [place], [address] Erythrocyte distribution width (RBC) [Ratio] 14.0 % Normal 11.6-14.6 [facility] Comment on above: Performed By: #### L 100.0100, L500.2500 ####[facility] [address] [place], [address] Hematocrit (Bld) [Volume fraction] 40.5 % Normal 37-47 [facility] Comment on above: Performed By: #### L 100.0100, L500.2500 ####[facility] [address] [place], [address] Hemoglobin (Bld) [Mass/Vol] 12.3 g/dL Normal 12.0-15.0 [facility] Comment on above: Performed By: #### L 100.0100, L500.2500 ####[facility] [address] [place], [address] IG% 0.900 Normal 0.0-0.9 [facility] Comment on above: Result Comment: IG% - Immature Granulocytes (promyelocytes, myelocytes andmetamyelocytes) > 1% indicates that a LEFT SHIFT is Present. Performed By: #### L 100.0100, L500.2500 ####[facility] [address] [place], [address] Lymphocytes/100 WBC (Bld) 3.6 % Low 19-41 [facility] Comment on above: Performed By: #### L 100.0100, L500.2500 ####[facility] [address] [place], [address] MCH (RBC) [Entitic mass] 28.5 pg Normal 27.0-32.0 [facility] Comment on above: Performed By: #### L 100.0100, L500.2500 ####[facility] [address] [place], [address] MCHC (RBC) [Mass/Vol] 30.4 g/dL Low 32-36 [facility] Comment on above: Performed By: #### L 100.0100, L500.2500 ####[facility] [address] [place], [address] MCV (RBC) [Entitic vol] 93.8 fL Normal 81-99 [facility] Comment on above: Performed By: #### L 100.0100, L500.2500 ####[facility] [address] [place], [address] Monocytes/100 WBC (Bld) 3.8 % Normal 0-10 [facility] Comment on above: Performed By: #### L 100.0100, L500.2500 ####[facility] [address] [place], [address] Neutrophils/100 WBC (Bld) 89.5 % High 47-70 [facility] Comment on above: Performed By: #### L 100.0100, L500.2500 ####[facility] [address] [place], [address] Nucleated RBC (Bld) [#/Vol] 0 10*3/uL Normal 0-5 [facility] Comment on above: Performed By: #### L 100.0100, L500.2500 ####[facility] [address] [place], [address] Platelet mean volume (Bld) [Entitic vol] 9.7 fL Normal 6.2-12.0 [facility] Comment on above: Performed By: #### L 100.0100, L500.2500 ####[facility] [address] [place], [address] Platelets (Bld) [#/Vol] 362 10*3/uL Normal 150-450 [facility] Comment on above: Performed By: #### L 100.0100, L500.2500 ####[facility] [address] [place], [address] RBC (Bld) [#/Vol] 4.32 10*6/uL Normal 4.2-5.4 [facility] Comment on above: Performed By: #### L 100.0100, L500.2500 ####[facility] [address] [place], [address] RDW SD 48.5 fl High 35.1-43.9 [facility] Comment on above: Performed By: #### L 100.0100, L500.2500 ####[facility] [address] [place], [address] WBC (Bld) [#/Vol] 18.1 10*3/uL High 4.4-11.0 [facility] Comment on above: Performed By: #### L 100.0100, L500.2500 ####[facility] [address] [place], [address] Carbon dioxide, total [Moles /volume] in Central venous bloodOrdered By: Cindi Lizarraga on 03-24-2025 CO2 [Moles/Vol] 40.9 mmol/L High 21.0-32.0 [facility] Chloride assayOrdered By: Na na Zia on 03-24-2025 Chloride [Moles/Vol] 89 mmol/L Low 98-108 [facility] Discharge Instructionon 04- Discharge Instruction Normal [facility] Eosinophil percentageOrdered By: Cindi Lizarraga on 03-24-2025 Eosinophils/100 WBC (Bld) 2.0 % 0-5 [facility] Erythrocyte distribution wid th (RBC) [Ratio]Ordered By: Cindi Lizarraga on 03-24-2025 Erythrocyte distribution width (RBC) [Entitic vol] 48.5 fL High 35.1-43.9 [facility] Erythrocyte distribution wid th ratioOrdered By: Cindi Lizarraga 03-24-2025 Erythrocyte distribution width (RBC) [Ratio] 14.0 % 11.6-14.6 [facility] Erythrocyte distribution wid th standard deviationOrdered By: Cindi Lizarraga 03-24-2025 Erythrocyte distribution width (RBC) [Ratio] 48.5 fl High 35.1-43.9 [facility] Estimation of creatinine junie aranceOrdered By: Cindi Lizarraga on 03-24-2025 Estimated Creatinine Clearance Calc 77.65 ml/min 50-250 [facility] GFR/1.73 sq M.predicted lisa g non-blacks MDRD (S/P/Bld) [Vol rate/Area]Ordered By: Cindi Lizarraga 03-24-2025 Estimated GFR (MDRD) Non-Af Amer 87 >60 [facility] Comment on above: mL/min/1.73m2 CKD-EP I Creatinine Equation (2020) Glomerular filtration rate ( GFR) estimation/1.73 sq m using serum, plasma, or whole bOrdered By: Cindi Lizarraga 03-24-2025 GFR/1.73 sq M.predicted among non-blacks MDRD (S/P/Bld) [Vol rate/Area] 87 mL/min/{1.73_m2} >60 [facility] Comment on above: mL/min/1.73m2 CKD-EP I Creatinine Equation (2020) Hematocrit Auto (Bld) [Volum e fraction]Ordered By: Cindi Lizarraga 03-24-2025 Hematocrit (Bld) [Volume fraction] 40.5 % 37-47 [facility] Hemoglobin measurementOrdere d By: Cindi Lizarraga 03-24-2025 Hemoglobin (Bld) [Mass/Vol] 12.3 g/dL 12.0-15.0 [facility] Immature granulocytes/100 WB C Auto (Bld)Ordered By: Cindi Lizarraga 03-24-2025 Immature granulocytes/100 WBC (Bld) 0.900 % 0.0-0.9 [facility] Comment on above: IG% - Immature Granu locytes (promyelocytes, myelocytes and metamyelocytes) > 1% indicates that a LEFT SHIFT is Present. Lymphocytes Auto (Unsp spec) [#/Vol]Ordered By: Cindi Lizarraga on 03-24-2025 Lymphocytes (Bld) [#/Vol] 0.66 10*3/uL Low 0.83-4.51 [facility] Lymphocytes/100 WBC Auto (Un sp spec)Ordered By: Cindi Lizarraga on 03-24-2025 Lymphocytes/100 WBC (Bld) 3.6 % Low 19-41 [facility] MCV (mean corpuscular volume ) determinationOrdered By: Cindi Lizarraga on 03-24-2025 MCV (RBC) [Entitic vol] 93.8 fL 81-99 [facility] Mean corpuscular hemoglobin (MCH) determinationOrdered By: Cindi Lizarraga on 03-24-2025 MCH (RBC) [Entitic mass] 28.5 pg 27.0-32.0 [facility] Mean corpuscular hemoglobin concentration (MCHC) determinationOrdered By: Cindi Lizarraga on 03-24-2025 MCHC (RBC) [Mass/Vol] 30.4 g/dL Low 32-36 [facility] Mean platelet volume determi nationOrdered By: Cindi Lizarraga on 03-24-2025 Platelet mean volume (Bld) [Entitic vol] 9.7 fL 6.2-12.0 [facility] Monocyte percentageOrdered B y: Cindi Lizarraga on 03-24-2025 Monocytes/100 WBC (Bld) 3.8 % 0-10 [facility] Neutrophil percentageOrdered By: Cindi Lizarraga on 03-24-2025 Neutrophils/100 WBC (Bld) 89.5 % High 47-70 [facility] Nucleated red blood cell per centageOrdered By: Cindi Lizarraga on 03-24-2025 Nucleated RBC/100 WBC (Bld) [Ratio] 0 % 0-5 [facility] Platelet countOrdered By: Carol Ann Lizarraga on 03-24-2025 Platelets (Bld) [#/Vol] 362 10*3/uL 150-450 [facility] Potassium (Unsp spec) [Mass/ Vol]Ordered By: Cindi Lizarraga on 03-24-2025 Potassium [Moles/Vol] 5.6 mmol/L High 3.3-5.1 [facility] Potassium measurement (mass/ volume)Ordered By: Cindi Lizarraga on 03-24-2025 Potassium (Unsp spec) [Mass/Vol] 5.6 mmol/L High 3.3-5.1 [facility] RBC Auto (Bld) [#/Vol]Ordere d By: Cindi Lizarraga on 03-24-2025 RBC (Bld) [#/Vol] 4.32 10*6/uL 4.2-5.4 [facility] Serum creatinine measurement (mass/volume)Ordered By: Cindi Lizarraga on 03-24-2025 Creatinine [Mass/Vol] 0.74 mg/dL 0.70-1.20 [facility] Serum glucose measurement (m ass/volume)Ordered By: Cindi Lizarraga on 03-24-2025 Glucose [Mass/Vol] 163 mg/dL High 70-99 [facility] Serum or plasma calcium diallo urement (mass/volume)Ordered By: Cindi Lizarraga on 03-24-2025 Calcium [Mass/Vol] 9.2 mg/dL 7.6-11.0 [facility] Serum or plasma urea nitroge n measurement (mass/volume)Ordered By: Cindi Lizarraga on 03-24-2025 Urea nitrogen [Mass/Vol] 32 mg/dL High 4-19 [facility] Sodium levelOrdered By: Cindi Lizarraga on 03-24-2025 Sodium [Moles/Vol] 134 mmol/L 133-145 [facility] White blood cell (WBC) count Ordered By: Cindi Lizarraga on 03-24-2025 WBC (Bld) [#/Vol] 18.1 10*3/uL High 4.4-11.0 [facility] Basic Metabolic Profile (BMP )on 03-23-2025 BUN/CRE 43.4 RATIO High 10-20 [facility] Comment on above: Performed By: #### L 500.2500 ####[facility] [address] [place], [address] Calcium [Mass/Vol] 9.3 mg/dL Normal 7.6-11.0 [facility] Comment on above: Performed By: #### L 500.2500 ####[facility] [address] [place], [address] Chloride [Moles/Vol] 91 mmol/L Low 98-108 [facility] Comment on above: Performed By: #### L 500.2500 ####[facility] [address] [place], [address] CO2 [Moles/Vol] 42.1 mmol/L High 21.0-32.0 [facility] Comment on above: Performed By: #### L 500.2500 ####[facility] [address] [place], [address] Creatinine [Mass/Vol] 0.58 mg/dL Low 0.70-1.20 [facility] Comment on above: Performed By: #### L 500.2500 ####[facility] [address] [place], [address] ECRCL 77.57 ml/min Normal 50-250 [facility] Comment on above: Performed By: #### L 500.2500 ####[facility] [address] [place], [address] GAP 5 Normal 5-15 [facility] Comment on above: Performed By: #### L 500.2500 ####[facility] [address] [place], [address] GFR/1.73 sq M.predicted among non-blacks MDRD (S/P/Bld) [Vol rate/Area] 97 mL/min/{1.73_m2} Normal >60 [facility] Comment on above: Result Comment: mL/m in/1.73m2 CKD-EPI Creatinine Equation (2020) Performed By: #### L 500.2500 ####[facility] [address] [place], [address] Glucose [Mass/Vol] 165 mg/dL High 70-99 [facility] Comment on above: Performed By: #### L 500.2500 ####[facility] [address] [place], [address] Potassium [Moles/Vol] 4.9 mmol/L Normal 3.3-5.1 [facility] Comment on above: Performed By: #### L 500.2500 ####[facility] [address] [place], [address] Sodium [Moles/Vol] 138 mmol/L Normal 133-145 [facility] Comment on above: Performed By: #### L 500.2500 ####[facility] [address] [place], [address] Urea nitrogen [Mass/Vol] 25 mg/dL High 4-19 [facility] Comment on above: Performed By: #### L 500.2500 ####[facility] [address] [place], [address] Gram Stainon 03-23-2025 List Antibiotics [place] 48 Hours? zithromax Acceptable Specimen? Yes (<25 Epithelial cells per/lpf) Gram Stain 2+ Gram positive cocci 3+ White Blood Cells Rare Epithelial cells Normal [facility] Comment on above: Performed By: #### M 100.2400, M100.2000 ####[facility] [address] [place], [address] Gram stainOrdered By: Cindi juarez on 03-23-2025 Microscopic observation Gram stain Nom (Unsp spec) [facility] Microbial respiratory cultur eOrdered By: Cindi Lizarraga on 03-23-2025 Microorganism identified Cx Nom (Unsp spec) Proteus mirabilis Abnormal [facility] Phosphoruson 03-21-2025 Phosphate [Mass/Vol] 2.8 mg/dL Normal 2.7-4.5 [facility] Comment on above: Performed By: #### L 501.2300 ####[facility] [address] [place], [address] Serum phosphorus measurement Ordered By: Orlando Maldonado on 03-21-2025 Phosphorus Level 2.8 mg/dL 2.7-4.5 [facility] Bilirubin, totalOrdered By: Orlando Maldonado on 03-20-2025 Bilirubin [Mass/Vol] 0.28 mg/dL 0.00-1.30 [facility] CBC W/Diff, Automatedon 02-25 Absolute Lymph 0.47 X10 3/uL Low 0.83-4.51 [facility] Comment on above: Performed By: #### L 100.0100 ####[facility] [address] [place], [address] Absolute Neut 10.3 X10 3/uL High 2.0-7.7 [facility] Comment on above: Performed By: #### L 100.0100 ####[facility] [address] [place], [address] Basophils/100 WBC (Bld) 0.1 % Normal 0-1 [facility] Comment on above: Performed By: #### L 100.0100 ####[facility] [address] [place], [address] Eosinophils/100 WBC (Bld) 0.0 % Normal 0-5 [facility] Comment on above: Performed By: #### L 100.0100 ####[facility] [address] [place], [address] Erythrocyte distribution width (RBC) [Ratio] 13.5 % Normal 11.6-14.6 [facility] Comment on above: Performed By: #### L 100.0100 ####[facility] [address] [place], [address] Hematocrit (Bld) [Volume fraction] 36.2 % Low 37-47 [facility] Comment on above: Performed By: #### L 100.0100 ####[facility] [address] [place], [address] Hemoglobin (Bld) [Mass/Vol] 10.9 g/dL Low 12.0-15.0 [facility] Comment on above: Performed By: #### L 100.0100 ####[facility] [address] [place], [address] IG% 0.500 Normal 0.0-0.9 [facility] Comment on above: Result Comment: IG% - Immature Granulocytes (promyelocytes, myelocytes andmetamyelocytes) > 1% indicates that a LEFT SHIFT is Present. Performed By: #### L 100.0100 ####[facility] [address] [place], [address] Lymphocytes/100 WBC (Bld) 4.3 % Low 19-41 [facility] Comment on above: Performed By: #### L 100.0100 ####[facility] [address] [place], [address] MCH (RBC) [Entitic mass] 28.8 pg Normal 27.0-32.0 [facility] Comment on above: Performed By: #### L 100.0100 ####[facility] [address] [place], [address] MCHC (RBC) [Mass/Vol] 30.1 g/dL Low 32-36 [facility] Comment on above: Performed By: #### L 100.0100 ####[facility] [address] [place], [address] MCV (RBC) [Entitic vol] 95.8 fL Normal 81-99 [facility] Comment on above: Performed By: #### L 100.0100 ####[facility] [address] [place], [address] Monocytes/100 WBC (Bld) 1.2 % Normal 0-10 [facility] Comment on above: Performed By: #### L 100.0100 ####[facility] [address] [place], [address] Neutrophils/100 WBC (Bld) 93.9 % High 47-70 [facility] Comment on above: Performed By: #### L 100.0100 ####[facility] [address] [place], [address] Nucleated RBC (Bld) [#/Vol] 0 10*3/uL Normal 0-5 [facility] Comment on above: Performed By: #### L 100.0100 ####[facility] [address] [place], [address] Platelet mean volume (Bld) [Entitic vol] 9.8 fL Normal 6.2-12.0 [facility] Comment on above: Performed By: #### L 100.0100 ####[facility] [address] [place], [address] Platelets (Bld) [#/Vol] 315 10*3/uL Normal 150-450 [facility] Comment on above: Performed By: #### L 100.0100 ####[facility] [address] [place], [address] RBC (Bld) [#/Vol] 3.78 10*6/uL Low 4.2-5.4 [facility] Comment on above: Performed By: #### L 100.0100 ####[facility] [address] [place], [address] RDW SD 48.0 fl High 35.1-43.9 [facility] Comment on above: Performed By: #### L 100.0100 ####[facility] [address] [place], [address] WBC (Bld) [#/Vol] 11.0 10*3/uL Normal 4.4-11.0 [facility] Comment on above: Performed By: #### L 100.0100 ####[facility] [address] [place], [address] Calculated very low density lipoprotein (VLDL) cholesterol measurementOrdered By: Orlando Maldonado on 03-20-2025 Calculated very low density lipoprotein (VLDL) cholesterol measurement 10 mg/dL -40 [facility] VLDL Cholesterol 10 mg/dL -40 [facility] Comprehensive Metabolic Prof ilon 03-20-2025 Albumin [Mass/Vol] 3.5 g/dL Normal 3.4-4.8 [facility] Comment on above: Performed By: #### L 503.7505, L501.2300, L500.4100, L500.4050 ####[facility] [address] [place], [address] Albumin/Globulin [Mass ratio] 1.0 {ratio} Normal 0.9-2.4 [facility] Comment on above: Performed By: #### L 503.7505, L501.2300, L500.4100, L500.4050 ####[facility] [address] [place], [address] ALK PHOS 65 U/L Normal 35-104 [facility] Comment on above: Performed By: #### L 503.7505, L501.2300, L500.4100, L500.4050 ####[facility] [address] [place], [address] ALT [Catalytic activity/Vol] 12 U/L Normal <=34 [facility] Comment on above: Performed By: #### L 503.7505, L501.2300, L500.4100, L500.4050 ####[facility] [address] [place], [address] AST [Catalytic activity/Vol] 13 U/L Normal <=31 [facility] Comment on above: Performed By: #### L 503.7505, L501.2300, L500.4100, L500.4050 ####[facility] [address] [place], [address] Bilirubin [Mass/Vol] 0.28 mg/dL Normal 0.00-1.30 [facility] Comment on above: Performed By: #### L 503.7505, L501.2300, L500.4100, L500.4050 ####[facility] [address] [place], [address] BUN/CRE 24.8 RATIO High 10-20 [facility] Comment on above: Performed By: #### L 503.7505, L501.2300, L500.4100, L500.4050 ####[facility] [address] [place], [address] Calcium [Mass/Vol] 9.1 mg/dL Normal 7.6-11.0 [facility] Comment on above: Performed By: #### L 503.7505, L501.2300, L500.4100, L500.4050 ####[facility] [address] [place], [address] Chloride [Moles/Vol] 89 mmol/L Low 98-108 [facility] Comment on above: Performed By: #### L 503.7505, L501.2300, L500.4100, L500.4050 ####[facility] [address] [place], [address] CO2 [Moles/Vol] 41.8 mmol/L High 21.0-32.0 [facility] Comment on above: Performed By: #### L 503.7505, L501.2300, L500.4100, L500.4050 ####[facility] [address] [place], [address] Creatinine [Mass/Vol] 0.59 mg/dL Low 0.70-1.20 [facility] Comment on above: Performed By: #### L 503.7505, L501.2300, L500.4100, L500.4050 ####[facility] [address] [place], [address] ECRCL 77.16 ml/min Normal 50-250 [facility] Comment on above: Performed By: #### L 503.7505, L501.2300, L500.4100, L500.4050 ####[facility] [address] [place], [address] GAP 8 Normal 5-15 [facility] Comment on above: Performed By: #### L 503.7505, L501.2300, L500.4100, L500.4050 ####[facility] [address] [place], [address] GFR/1.73 sq M.predicted among non-blacks MDRD (S/P/Bld) [Vol rate/Area] 96 mL/min/{1.73_m2} Normal >60 [facility] Comment on above: Result Comment: mL/m in/1.73m2 CKD-EPI Creatinine Equation (2020) Performed By: #### L 503.7505, L501.2300, L500.4100, L500.4050 ####[facility] [address] [place], [address] Globulin (S) [Mass/Vol] 3.3 g/dL Normal 2.2-4.2 [facility] Comment on above: Performed By: #### L 503.7505, L501.2300, L500.4100, L500.4050 ####[facility] [address] [place], [address] Glucose [Mass/Vol] 163 mg/dL High 70-99 [facility] Comment on above: Performed By: #### L 503.7505, L501.2300, L500.4100, L500.4050 ####[facility] [address] [place], [address] Potassium [Moles/Vol] 4.6 mmol/L Normal 3.3-5.1 [facility] Comment on above: Performed By: #### L 503.7505, L501.2300, L500.4100, L500.4050 ####[facility] [address] [place], [address] Sodium [Moles/Vol] 139 mmol/L Normal 133-145 [facility] Comment on above: Performed By: #### L 503.7505, L501.2300, L500.4100, L500.4050 ####[facility] [address] [place], [address] T PROT 6.8 g/dL Normal 5.9-8.4 [facility] Comment on above: Performed By: #### L 503.7505, L501.2300, L500.4100, L500.4050 ####[facility] [address] [place], [address] Urea nitrogen [Mass/Vol] 15 mg/dL Normal 4-19 [facility] Comment on above: Performed By: #### L 503.7505, L501.2300, L500.4100, L500.4050 ####[facility] [address] [place], [address] Echocardiogram study reportO rdered By: Chandni Courtney on 03-20-2025 Study report [facility] [address] [place] [address] Echo Complete W/ Contrast 03/20/2514 MR#: [id number] Acct: [id number] Name: PIPER CLARK Rep #:[id number] 1 : 1955 69 From: Chandni Courtney MD Attending Dr: Dr. Chai Rider, DO Status: ADM IN Ordering Dr: Orlando Bolden DO Date: 03/19/25 Location: [facility] Sex: F C Admitted: 03/19/25 Reason For [...] GENIA CHAPPELL Performed By: Katelyn Barakat RDCS 03/20/251054 Date _ Chandni Courtney MD CC: Dr. Genia Chappell MD; Dr. Orlando Bolden DO; Dr. Chai Rider DO; Dr.Remus Magdy DO ~ Date Dictated: 03/20/25913 Date Transcribed: 03/20/251054 Parking Garage Manager: Signed [facility] Work Phone: Folates,Serum (Folic Acid)on 03-20-2025 FOLATES,SERUM 8.88 ng/mL Normal 4.60-34.80 [facility] Comment on above: Result Comment: Hemo lysis, Results will be affected, Requires Recollection. Performed By: #### L 501.5200, L506.0200, L501.9520, L503.0106 ####[facility] [address] [place], [place], [address] Hemoglobin A1con 03-20-2025 HbA1c (Bld) [Mass fraction] 5.5 % Normal <=5.6 [facility] Comment on above: Result Comment: Norm al < 5.7 % Prediabetic 5.7 - 6.4 % Diabetic >or= 6.5 % Please note range changes. Performed By: #### L 501.9985 ####[facility] [address] [place], [place], [address] L499.0043on 03-20-2025 Trop T High Sen Normal <=14 [facility] Comment on above: Result Comment: RENEE JOHNSON SAID TO CANCEL Performed By: #### L 499.0043 ####[facility] [address] [place], [address] L503.7505on 03-20-2025 Natriuretic peptide B (Bld) [Mass/Vol] 1547 pg/mL High <=900 [facility] Comment on above: Result Comment: Hear t Failure Unlikely: < 300 pg/mLHeart Failure Likely< 50 Years: > 450 pg/mL50-75 Years: > 900 pg/mL>75 Years: > 1800 pg/mL Performed By: #### L 503.7505, L501.2300, L500.4100, L500.4050 ####[facility] [address] [place], [address] LDL calc ser/plasOrdered By: Orlando Maldonado on 03-20-2025 Cholesterol in LDL [Mass/Vol] 82 mg/dL [facility] Comment on above: Ikqneugylw=375-623 m g/dL & Higher Dist=929 mg/dL or greater LDL Cholesterol, Calculated 82 mg/dL [facility] Comment on above: Amhcpxhfqo=239-521 m g/dL & Higher Eosl=718 mg/dL or greater Laboratory - Chemistry and C hemistry - challengeOrdered By: Orlando Maldonado on 03-20-2025 AST [Catalytic activity/Vol] 13 U/L <32 [facility] Lipid Profileon 03-20-2025 CHOL:HDL 2.58 Normal [facility] Comment on above: Performed By: #### L 503.7505, L501.2300, L500.4100, L500.4050 ####[facility] [address] [place], [address] Cholesterol [Mass/Vol] 150 mg/dL Normal <=200 [facility] Comment on above: Result Comment: Chol esterol level, Desirable <200 mg/dLBorderline high cholesterol 200-239 mg/dLHigh cholesterol >=240 mg/dLRecommendations of the NCEP Adult Treatment Panel for thefollowing risk-cutoff thresholds for the [place] [facility]. Performed By: #### L 503.7505, L501.2300, L500.4100, L500.4050 ####[facility] [address] [place], [address] Cholesterol in HDL [Mass/Vol] 58 mg/dL Normal [facility] Comment on above: Result Comment: Leslie onal Cholesterol Education Program (NCEP) guidelines:<40 mg/dL: Low HDL-cholesterol (major risk factor for CHD)>= 60 mg/dL: High HDL-cholesterol (negative risk factor forCHD)HDL-cholesterol is affected by a number of factors, e.g.smoking, exercise, hormones, sex and age. Performed By: #### L 503.7505, L501.2300, L500.4100, L500.4050 ####[facility] [address] [place], [address] Cholesterol in LDL [Mass/Vol] 82 mg/dL Normal [facility] Comment on above: Result Comment: Bord tcsjau=503-435 mg/dL Higher Bnso=712 mg/dL or greater Performed By: #### L 503.7505, L501.2300, L500.4100, L500.4050 ####[facility] [address] [place], [address] Cholesterol in VLDL [Mass/Vol] 10 mg/dL Normal 5-40 [facility] Comment on above: Performed By: #### L 503.7505, L501.2300, L500.4100, L500.4050 ####[facility] [address] [place], [address] Triglyceride [Mass/Vol] 51 mg/dL Normal [facility] Comment on above: Result Comment: The drugs N-Acetylcysteine and Metamizole may falselydepress this assay.Normal range: <150 mg/dLBorderline High: 150-199 mg/dLHigh: 200-499 mg/dLVery High: >500 mg/dL Performed By: #### L 503.7505, L501.2300, L500.4100, L500.4050 ####[facility] [address] [place], [place], [id number] Magnesiumon 03-20-2025 Magnesium [Mass/Vol] 1.7 mg/dL Normal 1.5-2.2 [facility] Comment on above: Performed By: #### L 501.5200, L506.0200, L501.9520, L503.0106 ####[facility] [address] [place], [place], [id number] Natriuretic peptide.B prohor inessa N-Terminal [Mass/Vol]Ordered By: Orlando Maldonado on 03-20-2025 Natriuretic peptide B (Bld) [Mass/Vol] 1547 pg/mL High <900 [facility] Comment on above: Heart Failure Unlike ly: < 300 pg/mLHeart Failure Likely< 50 Years: > 450 pg/mL50-75 Years: > 900 pg/mL>75 Years: > 1800 pg/mL Natriuretic peptide.B prohor inessa N-Terminal [Mass/volume] in Serum or PlasmaOrdered By: Orlando Maldonado on 03-20-2025 Natriuretic peptide.B prohormone N-Terminal [Mass/Vol] 1547 pg/mL High <900 [facility] Comment on above: Heart Failure Unlike ly: < 300 pg/mLHeart Failure Likely< 50 Years: > 450 pg/mL50-75 Years: > 900 pg/mL>75 Years: > 1800 pg/mL No Panel InformationOrdered By: Orlando Maldonado on 03-20-2025 13 U/L <32 [facility] Phosphoruson 03-20-2025 Phosphate [Mass/Vol] 2.9 mg/dL Normal 2.7-4.5 [facility] Comment on above: Performed By: #### L 503.7505, L501.2300, L500.4100, L500.4050 ####[facility] [address] [place], [address] Screening total cholesterol/ high density lipoprotein (HDL) cholesterol ratioOrdered By: Orlando Maldonado on 03-20-2025 Cholesterol.total/Choles terol in HDL [Mass ratio] 2.58 {ratio} [facility] Serum globulin measurementOr dered By: Orlando Maldonado on 03-20-2025 Globulin (S) [Mass/Vol] 3.3 g/dL 2.2-4.2 [facility] Serum or plasma alanine garza otransferase (ALT) measurementOrdered By: Orlando Maldonado on 03-20-2025 ALT [Catalytic activity/Vol] 12 U/L <35 [facility] Serum or plasma albumin diallo urement (mass/volume)Ordered By: Orlando Maldonado on 03-20-2025 Albumin [Mass/Vol] 3.5 g/dL 3.4-4.8 [facility] Serum or plasma albumin/glob ulin mass ratioOrdered By: Orlando Maldonado on 03-20-2025 Albumin/Globulin [Mass ratio] 1.0 {ratio} 0.9-2.4 [facility] Serum or plasma alkaline pati sphatase measurementOrdered By: Orlando Maldonado on 03-20-2025 ALP [Catalytic activity/Vol] 65 U/L 35-104 [facility] Serum or plasma cholesterol in HDL measurement (mass/volume)Ordered By: Orlando Maldonado on 03-20-2025 Cholesterol in HDL [Mass/Vol] 58 mg/dL >40 [facility] Comment on above: National Cholesterol Education Program (NCEP) guidelines:<40 mg/dL: Low HDL-cholesterol (major risk factor for CHD)>= 60 mg/dL: High HDL-cholesterol (negative risk factor for CHD)HDL-cholesterol is affected by a number of factors, e.g. smoking, exercise, hormones, sex and age. Serum or plasma cholesterol measurement (mass/volume)Ordered By: Orlando Maldonado on 03-20-2025 Cholesterol [Mass/Vol] 150 mg/dL <201 [facility] Comment on above: Cholesterol level, D esirable <200 mg/dLBorderline high cholesterol 200-239 mg/dLHigh cholesterol >=240 mg/dLRecommendations of the NCEP Adult Treatment Panel for the following risk-cutoff thresholds for the [place] population. Thyroid Stim Hormone (TSH)on 03-20-2025 TSH 0.905 uIU/mL Normal 0.300-4.200 [facility] Comment on above: Performed By: #### L 501.5200, L506.0200, L501.9520, L503.0106 ####[facility] [address] [place], [address] Total proteinOrdered By: Severo Maldonado on 03-20-2025 Protein [Mass/Vol] 6.8 g/dL 5.9-8.4 [facility] Triglycerides measurementOrd ered By: Orlando Maldonado on 03-20-2025 Triglyceride [Mass/Vol] 51 mg/dL <199 [facility] Comment on above: The drugs N-Acetylcy steine and Metamizole may falsely depress this assay. Normal range: <150 mg/dLBorderline High: 150-199 mg/dLHigh: 200-499 mg/dLVery High: >500 mg/dL Vitamin B12on 03-20-2025 Cobalamin (Vitamin B12) [Mass/Vol] 473 pg/mL Normal 180-914 [facility] Comment on above: Performed By: #### L 501.5200, L506.0200, L501.9520, L503.0106 ####[facility] [address] [place], [address] Basic Metabolic Profile (BMP )on 03-19-2025 BUN/CRE 16.7 RATIO Normal 10-20 [facility] Comment on above: Performed By: #### L 100.0100, L503.7505, L501.4021, L500.2500 ####[facility] [address] [place], [address] Calcium [Mass/Vol] 9.2 mg/dL Normal 7.6-11.0 [facility] Comment on above: Performed By: #### L 100.0100, L503.7505, L501.4021, L500.2500 ####[facility] [address] [place], [address] Chloride [Moles/Vol] 86 mmol/L Low 98-108 [facility] Comment on above: Performed By: #### L 100.0100, L503.7505, L501.4021, L500.2500 ####[facility] [address] [place], [address] CO2 [Moles/Vol] 38.3 mmol/L High 21.0-32.0 [facility] Comment on above: Performed By: #### L 100.0100, L503.7505, L501.4021, L500.2500 ####[facility] [address] [place], [address] Creatinine [Mass/Vol] 0.80 mg/dL Normal 0.70-1.20 [facility] Comment on above: Performed By: #### L 100.0100, L503.7505, L501.4021, L500.2500 ####[facility] [address] [place], [address] ECRCL 77.85 ml/min Normal 50-250 [facility] Comment on above: Performed By: #### L 100.0100, L503.7505, L501.4021, L500.2500 ####[facility] [address] [place], [address] GAP 9 Normal 5-15 [facility] Comment on above: Performed By: #### L 100.0100, L503.7505, L501.4021, L500.2500 ####[facility] [address] [place], [address] GFR/1.73 sq M.predicted among non-blacks MDRD (S/P/Bld) [Vol rate/Area] 79 mL/min/{1.73_m2} Normal >60 [facility] Comment on above: Result Comment: mL/m in/1.73m2 CKD-EPI Creatinine Equation (2020) Performed By: #### L 100.0100, L503.7505, L501.4021, L500.2500 ####[facility] [address] [place], [address] Glucose [Mass/Vol] 232 mg/dL High 70-99 [facility] Comment on above: Performed By: #### L 100.0100, L503.7505, L501.4021, L500.2500 ####[facility] [address] [place], [address] Potassium [Moles/Vol] 4.3 mmol/L Normal 3.3-5.1 [facility] Comment on above: Performed By: #### L 100.0100, L503.7505, L501.4021, L500.2500 ####[facility] [address] [place], [address] Sodium [Moles/Vol] 133 mmol/L Normal 133-145 [facility] Comment on above: Performed By: #### L 100.0100, L503.7505, L501.4021, L500.2500 ####[facility] [address] [place], [address] Urea nitrogen [Mass/Vol] 13 mg/dL Normal 4-19 [facility] Comment on above: Performed By: #### L 100.0100, L503.7505, L501.4021, L500.2500 ####[facility] [address] [place], [address] CBC W/Diff, Automatedon 04-2 Absolute Lymph 1.91 X10 3/uL Normal 0.83-4.51 [facility] Comment on above: Performed By: #### L 100.0100, L503.7505, L501.4021, L500.2500 ####[facility] [address] [place], [address] Absolute Neut 10.2 X10 3/uL High 2.0-7.7 [facility] Comment on above: Performed By: #### L 100.0100, L503.7505, L501.4021, L500.2500 ####[facility] [address] [place], [address] Basophils/100 WBC (Bld) 0.4 % Normal 0-1 [facility] Comment on above: Performed By: #### L 100.0100, L503.7505, L501.4021, L500.2500 ####[facility] [address] [place], [address] Eosinophils/100 WBC (Bld) 2.2 % Normal 0-5 [facility] Comment on above: Performed By: #### L 100.0100, L503.7505, L501.4021, L500.2500 ####[facility] [address] [place], [address] Erythrocyte distribution width (RBC) [Ratio] 13.5 % Normal 11.6-14.6 [facility] Comment on above: Performed By: #### L 100.0100, L503.7505, L501.4021, L500.2500 ####[facility] [address] [place], [address] Hematocrit (Bld) [Volume fraction] 39.1 % Normal 37-47 [facility] Comment on above: Performed By: #### L 100.0100, L503.7505, L501.4021, L500.2500 ####[facility] [address] [place], [address] Hemoglobin (Bld) [Mass/Vol] 11.7 g/dL Low 12.0-15.0 [facility] Comment on above: Performed By: #### L 100.0100, L503.7505, L501.4021, L500.2500 ####[facility] [address] [place], [address] IG% 0.400 Normal 0.0-0.9 [facility] Comment on above: Result Comment: IG% - Immature Granulocytes (promyelocytes, myelocytes andmetamyelocytes) > 1% indicates that a LEFT SHIFT is Present. Performed By: #### L 100.0100, L503.7505, L501.4021, L500.2500 ####[facility] [address] [place], [address] Lymphocytes/100 WBC (Bld) 13.9 % Low 19-41 [facility] Comment on above: Performed By: #### L 100.0100, L503.7505, L501.4021, L500.2500 ####[facility] [address] [place], [address] MCH (RBC) [Entitic mass] 28.6 pg Normal 27.0-32.0 [facility] Comment on above: Performed By: #### L 100.0100, L503.7505, L501.4021, L500.2500 ####[facility] [address] [place], [address] MCHC (RBC) [Mass/Vol] 29.9 g/dL Low 32-36 [facility] Comment on above: Performed By: #### L 100.0100, L503.7505, L501.4021, L500.2500 ####[facility] [address] [place], [address] MCV (RBC) [Entitic vol] 95.6 fL Normal 81-99 [facility] Comment on above: Performed By: #### L 100.0100, L503.7505, L501.4021, L500.2500 ####[facility] [address] [place], [address] Monocytes/100 WBC (Bld) 9.2 % Normal 0-10 [facility] Comment on above: Performed By: #### L 100.0100, L503.7505, L501.4021, L500.2500 ####[facility] [address] [place], [address] Neutrophils/100 WBC (Bld) 73.9 % High 47-70 [facility] Comment on above: Performed By: #### L 100.0100, L503.7505, L501.4021, L500.2500 ####[facility] [address] [place], [address] Nucleated RBC (Bld) [#/Vol] 0 10*3/uL Normal 0-5 [facility] Comment on above: Performed By: #### L 100.0100, L503.7505, L501.4021, L500.2500 ####[facility] [address] [place], [address] Platelet mean volume (Bld) [Entitic vol] 10.0 fL Normal 6.2-12.0 [facility] Comment on above: Performed By: #### L 100.0100, L503.7505, L501.4021, L500.2500 ####[facility] [address] [place], [address] Platelets (Bld) [#/Vol] 373 10*3/uL Normal 150-450 [facility] Comment on above: Performed By: #### L 100.0100, L503.7505, L501.4021, L500.2500 ####[facility] [address] [place], [address] RBC (Bld) [#/Vol] 4.09 10*6/uL Low 4.2-5.4 [facility] Comment on above: Performed By: #### L 100.0100, L503.7505, L501.4021, L500.2500 ####[facility] [address] [place], [address] RDW SD 47.8 fl High 35.1-43.9 [facility] Comment on above: Performed By: #### L 100.0100, L503.7505, L501.4021, L500.2500 ####[facility] [address] [place], [address] WBC (Bld) [#/Vol] 13.7 10*3/uL High 4.4-11.0 [facility] Comment on above: Performed By: #### L 100.0100, L503.7505, L501.4021, L500.2500 ####[facility] [address] [place], [address] Chest 1 View (Portable)on Chest 1 View (Portable) Normal [facility] Echo Complete W/ Contraston 03-19-2025 Echo Complete W/ Contrast Normal [facility] Emergency Department Summary on 03-19-2025 Emergency Department Summary Normal [facility] Folate [Moles/Vol]Ordered By : Orlando Maldonado on 03-19-2025 Serum Folate 8.88 ng/mL 4.60-34.80 [facility] Comment on above: Hemolysis, Results w ill be affected, Requires Recollection. Folate [Moles/volume] in Ser um or PlasmaOrdered By: Orlando Maldonado on 03-19-2025 Folate [Moles/Vol] 8.88 ng/mL 4.60-34.80 [facility] Comment on above: Hemolysis, Results w ill be affected, Requires Recollection. H AND P Exam - Hospitaliston 03-19-2025 H&P Exam - Hospitalist Normal [facility] Hemoglobin A1c percentageOrd ered By: Orlando Maldonado on 03-19-2025 HbA1c (Bld) [Mass fraction] 5.5 % <5.7 [facility] Comment on above: Normal < 5.7 % Predi abetic 5.7 - 6.4 % Diabetic >or= 6.5 % Please note range changes. L499.0042on 03-19-2025 Trop T High Sen 10 ng/L Normal <=14 [facility] Comment on above: Order Comment: ER DI D NOT GET SECOND TROP BEFORE LEAVING TO FLOOR. Performed By: #### L 499.0042 ####[facility] [address] [place], [address] L501.4021on 03-19-2025 Trop T High Sen 19 ng/L High <=14 [facility] Comment on above: Performed By: #### L 100.0100, L503.7505, L501.4021, L500.2500 ####[facility] [address] [place], [address] L503.7505on 03-19-2025 Natriuretic peptide B (Bld) [Mass/Vol] 1003 pg/mL High <=900 [facility] Comment on above: Result Comment: Hear t Failure Unlikely: < 300 pg/mLHeart Failure Likely< 50 Years: > 450 pg/mL50-75 Years: > 900 pg/mL>75 Years: > 1800 pg/mL Performed By: #### L 100.0100, L503.7505, L501.4021, L500.2500 ####[facility] [address] [place], [address] Magnesium (Unsp spec) [Mass/ Vol]Ordered By: Orlando Maldonado on 03-19-2025 Magnesium [Mass/Vol] 1.7 mg/dL 1.5-2.2 [facility] Magnesium measurement (mass/ volume)Ordered By: Orlando Maldonado on 03-19-2025 Magnesium (Unsp spec) [Mass/Vol] 1.7 mg/dL 1.5-2.2 [facility] TSH DL <= 0.005 mIU/L QnOrde red By: Orlando Maldonado on 03-19-2025 Thyroid Stimulating Hormone (TSH) 0.905 uIU/mL 0.300-4.200 [facility] TSH Qn 0.905 uIU/mL 0.300-4.200 [facility] Troponin T.cardiac High sens itivity method [Mass/Vol]Ordered By: Juan F Curran on 03-19-2025 Troponin T High Sensitivity 2 Hour 10 ng/L <14 [facility] Troponin T High Sensitivity 19 ng/L High <14 [facility] Troponin T.cardiac [Mass/vol ume] in Serum or Plasma by High sensitivity methodOrdered By: Juan F Curran on 03-19-2025 Troponin T.cardiac High sensitivity method [Mass/Vol] 10 ng/L <14 [facility] Troponin T.cardiac High sensitivity method [Mass/Vol] 19 ng/L High <14 [facility] Vitamin B12 ser/plasOrdered By: Orlando Maldonado on 03-19-2025 Cobalamin (Vitamin B12) [Mass/Vol] 473 pg/mL 180-914 [facility] Anion gap in Serum or Plasma Ordered By: Becca Dillard on 03-18-2025 Anion gap [Moles/Vol] 8 mmol/L - [facility] BUN/creatinine ratioOrdered By: Becca Dillard on 03-18-2025 Urea nitrogen/Creatinine [Mass ratio] 16.6 mg/mg - [facility] Basic Metabolic Profile (BMP )on 03-18-2025 BUN/CRE 16.6 RATIO Normal 09-14 [facility] Comment on above: Performed By: #### L 503.7505, L500.4100, L500.3400, L500.2500 ####[facility] [address] [place], [address] Calcium [Mass/Vol] 9.4 mg/dL Normal 7.6-11.0 [facility] Comment on above: Performed By: #### L 503.7505, L500.4100, L500.3400, L500.2500 ####[facility] [address] [place], [address] Chloride [Moles/Vol] 91 mmol/L Low 98-108 [facility] Comment on above: Performed By: #### L 503.7505, L500.4100, L500.3400, L500.2500 ####[facility] [address] [place], [address] CO2 [Moles/Vol] 37.8 mmol/L High 21.0-32.0 [facility] Comment on above: Performed By: #### L 503.7505, L500.4100, L500.3400, L500.2500 ####[facility] [address] [place], [address] Creatinine [Mass/Vol] 0.68 mg/dL Low 0.70-1.20 [facility] Comment on above: Performed By: #### L 503.7505, L500.4100, L500.3400, L500.2500 ####[facility] [address] [place], [address] GAP 8 Normal 5-15 [facility] Comment on above: Performed By: #### L 503.7505, L500.4100, L500.3400, L500.2500 ####[facility] [address] [place], [address] GFR/1.73 sq M.predicted among non-blacks MDRD (S/P/Bld) [Vol rate/Area] 93 mL/min/{1.73_m2} Normal >60 [facility] Comment on above: Result Comment: mL/m in/1.73m2 CKD-EPI Creatinine Equation (2020) Performed By: #### L 503.7505, L500.4100, L500.3400, L500.2500 ####[facility] [address] [place], [address] Glucose [Mass/Vol] 147 mg/dL High 70-99 [facility] Comment on above: Performed By: #### L 503.7505, L500.4100, L500.3400, L500.2500 ####[facility] [address] [place], [address] Potassium [Moles/Vol] 5.1 mmol/L Normal 3.3-5.1 [facility] Comment on above: Performed By: #### L 503.7505, L500.4100, L500.3400, L500.2500 ####[facility] [address] [place], [address] Sodium [Moles/Vol] 137 mmol/L Normal 133-145 [facility] Comment on above: Performed By: #### L 503.7505, L500.4100, L500.3400, L500.2500 ####[facility] [address] [place], [address] Urea nitrogen [Mass/Vol] 11 mg/dL Normal 4-19 [facility] Comment on above: Performed By: #### L 503.7505, L500.4100, L500.3400, L500.2500 ####[facility] [address] [place], [address] Bilirubin directOrdered By: Becca Dillard on 03-18-2025 Bilirubin.direct [Mass/Vol] 0.17 mg/dL 0.00-0.30 [facility] Bilirubin, totalOrdered By: Becca Dillard on 03-18-2025 Bilirubin [Mass/Vol] 0.33 mg/dL 0.00-1.30 [facility] Calculated very low density lipoprotein (VLDL) cholesterol measurementOrdered By: Becca Dillard on 03-18-2025 Calculated very low density lipoprotein (VLDL) cholesterol measurement 13 mg/dL 5-40 [facility] VLDL Cholesterol 13 mg/dL -40 [facility] Carbon dioxide, total [Moles /volume] in Central venous bloodOrdered By: Becca Dillard on 03-18-2025 CO2 [Moles/Vol] 37.8 mmol/L High 21.0-32.0 [facility] Chloride assayOrdered By: Sergio Dillard on 03-18-2025 Chloride [Moles/Vol] 91 mmol/L Low 98-108 [facility] GFR/1.73 sq M.predicted lisa g non-blacks MDRD (S/P/Bld) [Vol rate/Area]Ordered By: Becca Dillard on 03-18-2025 Estimated GFR (MDRD) Non-Af Amer 93 >60 [facility] Comment on above: mL/min/1.73m2 CKD-EP I Creatinine Equation (2020) Glomerular filtration rate ( GFR) estimation/1.73 sq m using serum, plasma, or whole bOrdered By: Becca Dillard on 03-18-2025 GFR/1.73 sq M.predicted among non-blacks MDRD (S/P/Bld) [Vol rate/Area] 93 mL/min/{1.73_m2} >60 [facility] Comment on above: mL/min/1.73m2 CKD-EP I Creatinine Equation (2020) L503.7505on 03-18-2025 Natriuretic peptide B (Bld) [Mass/Vol] 1006 pg/mL High <=900 [facility] Comment on above: Result Comment: Hear t Failure Unlikely: < 300 pg/mLHeart Failure Likely< 50 Years: > 450 pg/mL50-75 Years: > 900 pg/mL>75 Years: > 1800 pg/mL Performed By: #### L 503.7505, L500.4100, L500.3400, L500.2500 ####[facility] [address] [place], [place], [id number] LDL calc ser/plasOrdered By: Becca Dillard on 03-18-2025 Cholesterol in LDL [Mass/Vol] 89 mg/dL [facility] Comment on above: Swgyebvnyi=650-605 m g/dL & Higher Gcyq=618 mg/dL or greater LDL Cholesterol, Calculated 89 mg/dL [facility] Comment on above: Jztllzjeaj=194-405 m g/dL & Higher Epcw=862 mg/dL or greater Laboratory - Chemistry and C hemistry - challengeOrdered By: Becca Dillard on 03-18-2025 AST [Catalytic activity/Vol] 15 U/L <32 [facility] Lipid Profileon 03-18-2025 CHOL:HDL 2.59 Normal [facility] Comment on above: Performed By: #### L 503.7505, L500.4100, L500.3400, L500.2500 ####[facility] [address] [place], [address] Cholesterol [Mass/Vol] 167 mg/dL Normal <=200 [facility] Comment on above: Result Comment: Chol esterol level, Desirable <200 mg/dLBorderline high cholesterol 200-239 mg/dLHigh cholesterol >=240 mg/dLRecommendations of the NCEP Adult Treatment Panel for thefollowing risk-cutoff thresholds for the [place] [facility] hospital[facility]. Performed By: #### L 503.7505, L500.4100, L500.3400, L500.2500 ####[facility] [address] [place], [address] Cholesterol in HDL [Mass/Vol] 65 mg/dL Normal [facility] Comment on above: Result Comment: Leslie onal Cholesterol Education Program (NCEP) guidelines:<40 mg/dL: Low HDL-cholesterol (major risk factor for CHD)>= 60 mg/dL: High HDL-cholesterol (negative risk factor forCHD)HDL-cholesterol is affected by a number of factors, e.g.smoking, exercise, hormones, sex and age. Performed By: #### L 503.7505, L500.4100, L500.3400, L500.2500 ####[facility] [address] [place], [address] Cholesterol in LDL [Mass/Vol] 89 mg/dL Normal [facility] Comment on above: Result Comment: Bord oyuizs=693-055 mg/dL Higher Mivu=441 mg/dL or greater Performed By: #### L 503.7505, L500.4100, L500.3400, L500.2500 ####[facility] [address] [place], [address] Cholesterol in VLDL [Mass/Vol] 13 mg/dL Normal 5-40 [facility] Comment on above: Performed By: #### L 503.7505, L500.4100, L500.3400, L500.2500 ####[facility] [address] [place], [address] Triglyceride [Mass/Vol] 66 mg/dL Normal [facility] Comment on above: Result Comment: The drugs N-Acetylcysteine and Metamizole may falselydepress this assay.Normal range: <150 mg/dLBorderline High: 150-199 mg/dLHigh: 200-499 mg/dLVery High: >500 mg/dL Performed By: #### L 503.7505, L500.4100, L500.3400, L500.2500 ####[facility] [address] [place], [address] Liver Profileon 03-18-2025 Albumin [Mass/Vol] 3.7 g/dL Normal 3.4-4.8 [facility] Comment on above: Performed By: #### L 503.7505, L500.4100, L500.3400, L500.2500 ####[facility] [address] [place], [address] ALK PHOS 72 U/L Normal 35-104 [facility] Comment on above: Performed By: #### L 503.7505, L500.4100, L500.3400, L500.2500 ####[facility] [address] [place], [address] ALT [Catalytic activity/Vol] 8 U/L Normal <=34 [facility] Comment on above: Performed By: #### L 503.7505, L500.4100, L500.3400, L500.2500 ####[facility] [address] [place], [address] AST [Catalytic activity/Vol] 15 U/L Normal <=31 [facility] Comment on above: Performed By: #### L 503.7505, L500.4100, L500.3400, L500.2500 ####[facility] [address] [place], [address] Bilirubin [Mass/Vol] 0.33 mg/dL Normal 0.00-1.30 [facility] Comment on above: Performed By: #### L 503.7505, L500.4100, L500.3400, L500.2500 ####[facility] [address] [place], [address] Bilirubin.direct [Mass/Vol] 0.17 mg/dL Normal 0.00-0.30 [facility] Comment on above: Performed By: #### L 503.7505, L500.4100, L500.3400, L500.2500 ####[facility] [address] [place], [address] Globulin (S) [Mass/Vol] 3.4 g/dL Normal 2.2-4.2 [facility] Comment on above: Performed By: #### L 503.7505, L500.4100, L500.3400, L500.2500 ####[facility] [address] [place], [address] T PROT 7.1 g/dL Normal 5.9-8.4 [facility] Comment on above: Performed By: #### L 503.7505, L500.4100, L500.3400, L500.2500 ####[facility] [address] [place], [address] Natriuretic peptide.B prohor inessa N-Terminal [Mass/Vol]Ordered By: Becca Dillard on 03-18-2025 Natriuretic peptide B (Bld) [Mass/Vol] 1006 pg/mL High <900 [facility] Comment on above: Heart Failure Unlike ly: < 300 pg/mLHeart Failure Likely< 50 Years: > 450 pg/mL50-75 Years: > 900 pg/mL>75 Years: > 1800 pg/mL Natriuretic peptide.B prohor inessa N-Terminal [Mass/volume] in Serum or PlasmaOrdered By: Becca Dillard on 03-18-2025 Natriuretic peptide.B prohormone N-Terminal [Mass/Vol] 1006 pg/mL High <900 [facility] Comment on above: Heart Failure Unlike ly: < 300 pg/mLHeart Failure Likely< 50 Years: > 450 pg/mL50-75 Years: > 900 pg/mL>75 Years: > 1800 pg/mL No Panel InformationOrdered By: Becca Dillard on 03-18-2025 15 U/L <32 [facility] Potassium (Unsp spec) [Mass/ Vol]Ordered By: Becca Dillard on 03-18-2025 Potassium [Moles/Vol] 5.1 mmol/L 3.3-5.1 [facility] Potassium measurement (mass/ volume)Ordered By: Becca Dillard on 03-18-2025 Potassium (Unsp spec) [Mass/Vol] 5.1 mmol/L 3.3-5.1 [facility] Screening total cholesterol/ high density lipoprotein (HDL) cholesterol ratioOrdered By: Becca Dillard on 03-18-2025 Cholesterol.total/Choles terol in HDL [Mass ratio] 2.59 {ratio} [facility] Serum creatinine measurement (mass/volume)Ordered By: Becca Dillard on 03-18-2025 Creatinine [Mass/Vol] 0.68 mg/dL Low 0.70-1.20 [facility] Serum globulin measurementOr dered By: Becca Dillard on 03-18-2025 Globulin (S) [Mass/Vol] 3.4 g/dL 2.2-4.2 [facility] Serum glucose measurement (m ass/volume)Ordered By: Becca Dillard on 03-18-2025 Glucose [Mass/Vol] 147 mg/dL High 70-99 [facility] Serum or plasma alanine garza otransferase (ALT) measurementOrdered By: Becca Dillard on 03-18-2025 ALT [Catalytic activity/Vol] 8 U/L <35 [facility] Serum or plasma albumin diallo urement (mass/volume)Ordered By: Becca Dillard on 03-18-2025 Albumin [Mass/Vol] 3.7 g/dL 3.4-4.8 [facility] Serum or plasma alkaline pati sphatase measurementOrdered By: Becca Dillard on 03-18-2025 ALP [Catalytic activity/Vol] 72 U/L 35-104 [facility] Serum or plasma calcium diallo urement (mass/volume)Ordered By: Becca Dillard on 03-18-2025 Calcium [Mass/Vol] 9.4 mg/dL 7.6-11.0 [facility] Serum or plasma cholesterol in HDL measurement (mass/volume)Ordered By: Becca Dillard on 03-18-2025 Cholesterol in HDL [Mass/Vol] 65 mg/dL >40 [facility] Comment on above: National Cholesterol Education Program (NCEP) guidelines:<40 mg/dL: Low HDL-cholesterol (major risk factor for CHD)>= 60 mg/dL: High HDL-cholesterol (negative risk factor for CHD)HDL-cholesterol is affected by a number of factors, e.g. smoking, exercise, hormones, sex and age. Serum or plasma cholesterol measurement (mass/volume)Ordered By: Becca Dillard on 03-18-2025 Cholesterol [Mass/Vol] 167 mg/dL <201 [facility] Comment on above: Cholesterol level, D esirable <200 mg/dLBorderline high cholesterol 200-239 mg/dLHigh cholesterol >=240 mg/dLRecommendations of the NCEP Adult Treatment Panel for the following risk-cutoff thresholds for the [place] population. Serum or plasma urea nitroge n measurement (mass/volume)Ordered By: Becca Dillard on 03-18-2025 Urea nitrogen [Mass/Vol] 11 mg/dL 4-19 [facility] Sodium levelOrdered By: Faith Dillard on 03-18-2025 Sodium [Moles/Vol] 137 mmol/L 133-145 [facility] Total proteinOrdered By: Reynold Dillard on 03-18-2025 Protein [Mass/Vol] 7.1 g/dL 5.9-8.4 [facility] Triglycerides measurementOrd ered By: Becca Dillard on 03-18-2025 Triglyceride [Mass/Vol] 66 mg/dL <199 [facility] Comment on above: The drugs N-Acetylcy steine and Metamizole may falsely depress this assay. Normal range: <150 mg/dLBorderline High: 150-199 mg/dLHigh: 200-499 mg/dLVery High: >500 mg/dL Absolute lymphocyte countOrd ered By: Christy Perea on 02-05-2025 Lymphocytes Auto (Unsp spec) [#/Vol] 2.14 10*3/uL 0.83-4.51 [facility] Absolute neutrophil countOrd ered By: Christy Perea on 02-05-2025 Neutrophils (Bld) [#/Vol] 7.5 10*3/uL 2.0-7.7 [facility] Anion gap in Serum or Plasma Ordered By: Christy Perea on 02-05-2025 Anion gap [Moles/Vol] 8 mmol/L 5-15 [facility] Automated lymphocyte count a s percentage of total leukocytesOrdered By: Christy Perea on 02-05-2025 Lymphocytes/100 WBC Auto (Unsp spec) 19.2 % 19- [facility] BUN/creatinine ratioOrdered By: Christy Perea on 02-05-2025 Urea nitrogen/Creatinine [Mass ratio] 20.6 mg/mg High 10- [facility] Basophil percentageOrdered B y: Christy Perea on 02-05-2025 Basophils/100 WBC (Bld) 0.4 % 0-1 [facility] Bilirubin, totalOrdered By: Christy Perea on 02-05-2025 Bilirubin [Mass/Vol] 0.25 mg/dL 0.00-1.30 [facility] CBC W/Diff, Automatedon 01-24 Absolute Lymph 2.14 X10 3/uL Normal 0.83-4.51 [facility] Comment on above: Performed By: #### L 500.4050, L501.6710, L501.9520, L101.9900, L100.0100 ####[facility] [address] [place], [address] Absolute Neut 7.5 X10 3/uL Normal 2.0-7.7 [facility] Comment on above: Performed By: #### L 500.4050, L501.6710, L501.9520, L101.9900, L100.0100 ####[facility] [address] [place], [address] Basophils/100 WBC (Bld) 0.4 % Normal 0-1 [facility] Comment on above: Performed By: #### L 500.4050, L501.6710, L501.9520, L101.9900, L100.0100 ####[facility] [address] [place], [address] Eosinophils/100 WBC (Bld) 2.2 % Normal 0-5 [facility] Comment on above: Performed By: #### L 500.4050, L501.6710, L501.9520, L101.9900, L100.0100 ####[facility] [address] [place], [address] Erythrocyte distribution width (RBC) [Ratio] 14.6 % Normal 11.6-14.6 [facility] Comment on above: Performed By: #### L 500.4050, L501.6710, L501.9520, L101.9900, L100.0100 ####[facility] [address] [place], [address] Hematocrit (Bld) [Volume fraction] 40.0 % Normal 37-47 [facility] Comment on above: Performed By: #### L 500.4050, L501.6710, L501.9520, L101.9900, L100.0100 ####[facility] [address] [place], [address] Hemoglobin (Bld) [Mass/Vol] 12.1 g/dL Normal 12.0-15.0 [facility] Comment on above: Performed By: #### L 500.4050, L501.6710, L501.9520, L101.9900, L100.0100 ####[facility] [address] [place], [address] IG% 0.400 Normal 0.0-0.9 [facility] Comment on above: Result Comment: IG% - Immature Granulocytes (promyelocytes, myelocytes andmetamyelocytes) > 1% indicates that a LEFT SHIFT is Present. Performed By: #### L 500.4050, L501.6710, L501.9520, L101.9900, L100.0100 ####[facility] [address] [place], [address] Lymphocytes/100 WBC (Bld) 19.2 % Normal 19-41 [facility] Comment on above: Performed By: #### L 500.4050, L501.6710, L501.9520, L101.9900, L100.0100 ####[facility] [address] [place], [address] MCH (RBC) [Entitic mass] 28.2 pg Normal 27.0-32.0 [facility] Comment on above: Performed By: #### L 500.4050, L501.6710, L501.9520, L101.9900, L100.0100 ####[facility] [address] [place], [address] MCHC (RBC) [Mass/Vol] 30.3 g/dL Low 32-36 [facility] Comment on above: Performed By: #### L 500.4050, L501.6710, L501.9520, L101.9900, L100.0100 ####[facility] [address] [place], [address] MCV (RBC) [Entitic vol] 93.2 fL Normal 81-99 [facility] Comment on above: Performed By: #### L 500.4050, L501.6710, L501.9520, L101.9900, L100.0100 ####[facility] [address] [place], [address] Monocytes/100 WBC (Bld) 10.7 % High 0-10 [facility] Comment on above: Performed By: #### L 500.4050, L501.6710, L501.9520, L101.9900, L100.0100 ####[facility] [address] [place], [address] Neutrophils/100 WBC (Bld) 67.1 % Normal 47-70 [facility] Comment on above: Performed By: #### L 500.4050, L501.6710, L501.9520, L101.9900, L100.0100 ####[facility] [address] [place], [address] Nucleated RBC (Bld) [#/Vol] 0 10*3/uL Normal 0-5 [facility] Comment on above: Performed By: #### L 500.4050, L501.6710, L501.9520, L101.9900, L100.0100 ####[facility] [address] [place], [address] Platelet mean volume (Bld) [Entitic vol] 10.1 fL Normal 6.2-12.0 [facility] Comment on above: Performed By: #### L 500.4050, L501.6710, L501.9520, L101.9900, L100.0100 ####[facility] [address] [place], [address] Platelets (Bld) [#/Vol] 310 10*3/uL Normal 150-450 [facility] Comment on above: Performed By: #### L 500.4050, L501.6710, L501.9520, L101.9900, L100.0100 ####[facility] [address] [place], [address] RBC (Bld) [#/Vol] 4.29 10*6/uL Normal 4.2-5.4 [facility] Comment on above: Performed By: #### L 500.4050, L501.6710, L501.9520, L101.9900, L100.0100 ####[facility] [address] [place], [address] RDW SD 50.0 fl High 35.1-43.9 [facility] Comment on above: Performed By: #### L 500.4050, L501.6710, L501.9520, L101.9900, L100.0100 ####[facility] [address] [place], [address] WBC (Bld) [#/Vol] 11.2 10*3/uL High 4.4-11.0 [facility] Comment on above: Performed By: #### L 500.4050, L501.6710, L501.9520, L101.9900, L100.0100 ####[facility] [address] [place], [address] CRPon 02-05-2025 C-REACTIVE PROT 6.40 mg/L High 0.0-3.0 [facility] Comment on above: Performed By: #### L 500.4050, L501.6710, L501.9520, L101.9900, L100.0100 ####[facility] [address] [place], [address] CRP [Mass/Vol]Ordered By: Carol Perea on 02-05-2025 C-Reactive Protein Extended Range 6.40 mg/L High 0.0-3.0 [facility] Carbon dioxide, total [Moles /volume] in Central venous bloodOrdered By: Christy Perea on 02-05-2025 CO2 [Moles/Vol] 32.3 mmol/L High 21.0-32.0 [facility] Chloride assayOrdered By: Carol Perea on 02-05-2025 Chloride [Moles/Vol] 98 mmol/L 98-108 [facility] Comprehensive Metabolic Prof ilon 02-05-2025 Albumin [Mass/Vol] 4.0 g/dL Normal 3.4-4.8 [facility] Comment on above: Performed By: #### L 500.4050, L501.6710, L501.9520, L101.9900, L100.0100 ####[facility] [address] [place], [address] Albumin/Globulin [Mass ratio] 1.3 {ratio} Normal 0.9-2.4 [facility] Comment on above: Performed By: #### L 500.4050, L501.6710, L501.9520, L101.9900, L100.0100 ####[facility] [address] [place], [address] ALK PHOS 63 U/L Normal 35-104 [facility] Comment on above: Performed By: #### L 500.4050, L501.6710, L501.9520, L101.9900, L100.0100 ####[facility] [address] [place], [address] ALT [Catalytic activity/Vol] 12 U/L Normal <=34 [facility] Comment on above: Performed By: #### L 500.4050, L501.6710, L501.9520, L101.9900, L100.0100 ####[facility] [address] [place], [address] AST [Catalytic activity/Vol] 16 U/L Normal <=31 [facility] Comment on above: Performed By: #### L 500.4050, L501.6710, L501.9520, L101.9900, L100.0100 ####[facility] [address] [place], [address] Bilirubin [Mass/Vol] 0.25 mg/dL Normal 0.00-1.30 [facility] Comment on above: Performed By: #### L 500.4050, L501.6710, L501.9520, L101.9900, L100.0100 ####[facility] [address] [place], [address] BUN/CRE 20.6 RATIO High 10-20 [facility] Comment on above: Performed By: #### L 500.4050, L501.6710, L501.9520, L101.9900, L100.0100 ####[facility] [address] [place], [address] Calcium [Mass/Vol] 9.8 mg/dL Normal 7.6-11.0 [facility] Comment on above: Performed By: #### L 500.4050, L501.6710, L501.9520, L101.9900, L100.0100 ####[facility] [address] [place], [address] Chloride [Moles/Vol] 98 mmol/L Normal 98-108 [facility] Comment on above: Performed By: #### L 500.4050, L501.6710, L501.9520, L101.9900, L100.0100 ####[facility] [address] [place], [address] CO2 [Moles/Vol] 32.3 mmol/L High 21.0-32.0 [facility] Comment on above: Performed By: #### L 500.4050, L501.6710, L501.9520, L101.9900, L100.0100 ####[facility] [address] [place], [address] Creatinine [Mass/Vol] 0.69 mg/dL Low 0.70-1.20 [facility] Comment on above: Performed By: #### L 500.4050, L501.6710, L501.9520, L101.9900, L100.0100 ####[facility] [address] [place], [address] GAP 8 Normal 5-15 [facility] Comment on above: Performed By: #### L 500.4050, L501.6710, L501.9520, L101.9900, L100.0100 ####[facility] [address] [place], [address] GFR/1.73 sq M.predicted among non-blacks MDRD (S/P/Bld) [Vol rate/Area] 93 mL/min/{1.73_m2} Normal >60 [facility] Comment on above: Result Comment: mL/m in/1.73m2 CKD-EPI Creatinine Equation (2020) Performed By: #### L 500.4050, L501.6710, L501.9520, L101.9900, L100.0100 ####[facility] [address] [place], [address] Globulin (S) [Mass/Vol] 3.2 g/dL Normal 2.2-4.2 [facility] Comment on above: Performed By: #### L 500.4050, L501.6710, L501.9520, L101.9900, L100.0100 ####[facility] [address] [place], [address] Glucose [Mass/Vol] 98 mg/dL Normal 70-99 [facility] Comment on above: Performed By: #### L 500.4050, L501.6710, L501.9520, L101.9900, L100.0100 ####[facility] [address] [place], [address] Potassium [Moles/Vol] 4.4 mmol/L Normal 3.3-5.1 [facility] Comment on above: Performed By: #### L 500.4050, L501.6710, L501.9520, L101.9900, L100.0100 ####[facility] [address] [place], [address] Sodium [Moles/Vol] 139 mmol/L Normal 133-145 [facility] Comment on above: Performed By: #### L 500.4050, L501.6710, L501.9520, L101.9900, L100.0100 ####[facility] [address] [place], [place], [address] T PROT 7.1 g/dL Normal 5.9-8.4 [facility] Comment on above: Performed By: #### L 500.4050, L501.6710, L501.9520, L101.9900, L100.0100 ####[facility] [address] [place], [address] Urea nitrogen [Mass/Vol] 14 mg/dL Normal 4-19 [facility] Comment on above: Performed By: #### L 500.4050, L501.6710, L501.9520, L101.9900, L100.0100 ####[facility] [address] [place], [address] Eosinophil percentageOrdered By: Christy Perea on 02-05-2025 Eosinophils/100 WBC (Bld) 2.2 % 0-5 [facility] Erythrocyte Sed Rateon 02-05 SED RATE 55 mm/hr High 0-30 [facility] Comment on above: Performed By: #### L 500.4050, L501.6710, L501.9520, L101.9900, L100.0100 ####[facility] [address] [place], [place], [address] Erythrocyte distribution wid th ratioOrdered By: Christy Perea on 02-05-2025 Erythrocyte distribution width (RBC) [Ratio] 14.6 % 11.6-14.6 [facility] Erythrocyte distribution wid th standard deviationOrdered By: Christy Perea on 02-05-2025 Erythrocyte distribution width (RBC) [Entitic vol] 50.0 fL High 35.1-43.9 [facility] Erythrocyte distribution width (RBC) [Ratio] 50.0 fl High 35.1-43.9 [facility] Erythrocyte sedimentation ra teOrdered By: Christy Perea on 02-05-2025 ESR (Bld) [Velocity] 55 mm/h High 0-30 [facility] GFR/1.73 sq M.predicted lisa g non-blacks MDRD (S/P/Bld) [Vol rate/Area]Ordered By: Christy Perea on 02-05-2025 Estimated GFR (MDRD) Non-Af Amer 93 >60 [facility] Comment on above: mL/min/1.73m2 CKD-EP I Creatinine Equation (2020) Glomerular filtration rate ( GFR) estimation/1.73 sq m using serum, plasma, or whole bOrdered By: Christy Perea on 02-05-2025 GFR/1.73 sq M.predicted among non-blacks MDRD (S/P/Bld) [Vol rate/Area] 93 mL/min/{1.73_m2} >60 [facility] Comment on above: mL/min/1.73m2 CKD-EP I Creatinine Equation (2020) Hematocrit Auto (Bld) [Volum e fraction]Ordered By: Christy Perea on 02-05-2025 Hematocrit (Bld) [Volume fraction] 40.0 % 37-47 [facility] Hemoglobin measurementOrdere d By: Christy Perea on 02-05-2025 Hemoglobin (Bld) [Mass/Vol] 12.1 g/dL 12.0-15.0 [facility] Immature granulocytes/100 WB C Auto (Bld)Ordered By: Christy Perea on 02-05-2025 Immature granulocytes/100 WBC (Bld) 0.400 % 0.0-0.9 [facility] Comment on above: IG% - Immature Granu locytes (promyelocytes, myelocytes and metamyelocytes) > 1% indicates that a LEFT SHIFT is Present. Laboratory - Chemistry and C hemistry - challengeOrdered By: Christy Perea on 02-05-2025 AST [Catalytic activity/Vol] 16 U/L <32 [facility] Lymphocytes Auto (Unsp spec) [#/Vol]Ordered By: Christy Perea on 02-05-2025 Lymphocytes (Bld) [#/Vol] 2.14 10*3/uL 0.83-4.51 [facility] Lymphocytes/100 WBC Auto (Un sp spec)Ordered By: Christy Perea on 02-05-2025 Lymphocytes/100 WBC (Bld) 19.2 % 19-41 [facility] MCV (mean corpuscular volume ) determinationOrdered By: Christy Perea on 02-05-2025 MCV (RBC) [Entitic vol] 93.2 fL 81-99 [facility] Mean corpuscular hemoglobin (MCH) determinationOrdered By: Christy Perea on 02-05-2025 MCH (RBC) [Entitic mass] 28.2 pg 27.0-32.0 [facility] Mean corpuscular hemoglobin concentration (MCHC) determinationOrdered By: Christy Perea on 02-05-2025 MCHC (RBC) [Mass/Vol] 30.3 g/dL Low 32-36 [facility] Mean platelet volume determi nationOrdered By: Christy Perea on 02-05-2025 Platelet mean volume (Bld) [Entitic vol] 10.1 fL 6.2-12.0 [facility] Monocyte percentageOrdered B y: Christy Perea on 02-05-2025 Monocytes/100 WBC (Bld) 10.7 % High 0-10 [facility] Neutrophil percentageOrdered By: Christy Perea on 02-05-2025 Neutrophils/100 WBC (Bld) 67.1 % 47-70 [facility] No Panel InformationOrdered By: Christy Perea on 02-05-2025 16 U/L <32 [facility] Nucleated red blood cell per centageOrdered By: Christy Perea on 02-05-2025 Nucleated RBC/100 WBC (Bld) [Ratio] 0 % 0-5 [facility] Platelet countOrdered By: Carol Perea on 02-05-2025 Platelets (Bld) [#/Vol] 310 10*3/uL 150-450 [facility] Potassium (Unsp spec) [Mass/ Vol]Ordered By: Christy Perea on 02-05-2025 Potassium [Moles/Vol] 4.4 mmol/L 3.3-5.1 [facility] Potassium measurement (mass/ volume)Ordered By: Christy Perea on 02-05-2025 Potassium (Unsp spec) [Mass/Vol] 4.4 mmol/L 3.3-5.1 [facility] RBC Auto (Bld) [#/Vol]Ordere d By: Christy Perea on 02-05-2025 RBC (Bld) [#/Vol] 4.29 10*6/uL 4.2-5.4 [facility] Serum creatinine measurement (mass/volume)Ordered By: Christy Perea on 02-05-2025 Creatinine [Mass/Vol] 0.69 mg/dL Low 0.70-1.20 [facility] Serum globulin measurementOr dered By: Christy Perea on 02-05-2025 Globulin (S) [Mass/Vol] 3.2 g/dL 2.2-4.2 [facility] Serum glucose measurement (m ass/volume)Ordered By: Christy Perea on 02-05-2025 Glucose [Mass/Vol] 98 mg/dL 70-99 [facility] Serum or plasma C reactive p rotein measurement (mass/volume)Ordered By: Christy Perea on 02-05-2025 CRP [Mass/Vol] 6.40 mg/L High 0.0-3.0 [facility] Serum or plasma alanine garza otransferase (ALT) measurementOrdered By: Christy Perea on 02-05-2025 ALT [Catalytic activity/Vol] 12 U/L <35 [facility] Serum or plasma albumin diallo urement (mass/volume)Ordered By: Christy Perea on 02-05-2025 Albumin [Mass/Vol] 4.0 g/dL 3.4-4.8 [facility] Serum or plasma albumin/glob ulin mass ratioOrdered By: Christy Perea on 02-05-2025 Albumin/Globulin [Mass ratio] 1.3 {ratio} 0.9-2.4 [facility] Serum or plasma alkaline pati sphatase measurementOrdered By: Christy Perea 02-05-2025 ALP [Catalytic activity/Vol] 63 U/L 35-104 [facility] Serum or plasma calcium diallo urement (mass/volume)Ordered By: Christy ePrea on 02-05-2025 Calcium [Mass/Vol] 9.8 mg/dL 7.6-11.0 [facility] Serum or plasma urea nitroge n measurement (mass/volume)Ordered By: Christy Perea on 02-05-2025 Urea nitrogen [Mass/Vol] 14 mg/dL 4-19 [facility] Sodium levelOrdered By: Christy Perea on 02-05-2025 Sodium [Moles/Vol] 139 mmol/L 133-145 [facility] TSH DL <= 0.005 mIU/L QnOrde red By: Christy Perea on 02-05-2025 Thyroid Stimulating Hormone (TSH) 2.170 uIU/mL 0.300-4.200 [facility] TSH Qn 2.170 uIU/mL 0.300-4.200 [facility] Thyroid Stim Hormone (TSH)on 02-05-2025 TSH 2.170 uIU/mL Normal 0.300-4.200 [facility] Comment on above: Performed By: #### L 500.4050, L501.6710, L501.9520, L101.9900, L100.0100 ####[facility] [address] [place], [place], [address] Total proteinOrdered By: Christy Perea on 02-05-2025 Protein [Mass/Vol] 7.1 g/dL 5.9-8.4 [facility] White blood cell (WBC) count Ordered By: Christy Perea on 02-05-2025 WBC (Bld) [#/Vol] 11.2 10*3/uL High 4.4-11.0 [facility] Urine Cultureon 12-27-2024 URC Normal [facility] Comment on above: Performed By: #### M 100.2204 ####[facility] [address] [place], [place], [id number] Urine cultureOrdered By: Chadwick Ashton on 12-25-2024 Bacteria identified Cx Nom (U) Klebsiella pneumoniae sp pneum Abnormal [facility] Orthopedic Visit Reporton Orthopedic Visit Report Normal [facility] Shoulder min 2 Viewson 12-04 Shoulder min 2 Views Normal [facility] Cardiology Visit Reporton Cardiology Visit Report Normal [facility] Re-Evaluation - PT (1)on Re-Evaluation - PT (1) Normal [facility] SCRN MAMM (CAD)W/TOM BILATo n 10-02-2024 SCRN MAMM (CAD)W/TOM BILAT Normal [facility] Cardiology Visit Reporton Cardiology Visit Report Normal [facility] Orthopedic Visit Reporton Orthopedic Visit Report Normal [facility] Shoulder min 2 Viewson 09-30 Shoulder min 2 Views Normal [facility] Inital Evaluation (1) - PTon 09-09-2024 Inital Evaluation (1) - PT Normal [facility] Low Dose CT Lung Screeningon 09-08-[address] Lung Screening Normal [facility] Orthopedic Visit Reporton Orthopedic Visit Report Normal [facility] Urine Cultureon 08-21-2024 URC Normal [facility] Comment on above: Performed By: #### M 100.2200 ####[facility] [address] [place], [address] Urine Cultureon 08-20-2024 URC UNABLE TO CHANGE SOURCE FROM INTERFACE Order Date: 08/19/24 Order Info: 630-4 - CUUR Bacteria Ur Cult Normal [facility] Comment on above: Performed By: #### M 100.2200, L400.0001 ####[facility] [address] [place], [address] Urinalysis, Completeon 08-19 BACTERIA 1+ /hpf Normal None Seen [facility] Comment on above: Order Comment: Order Date: 08/19/24Order Info: [id number] - UACCOLLECTOR TO SPECIFY Performed By: #### M 100.2200, L400.0001 ####[facility] [address] [place], [address] WBC 5-10 SEEN Normal 0-5 [facility] Comment on above: Order Comment: Order Date: 08/19/24Order Info: [id number] - UACCOLLECTOR TO SPECIFY Performed By: #### M 100.2200, L400.0001 ####[facility] [address] [place], [address] EPI,SQUAMOUS 0 SEEN Normal 5-10 [facility] Comment on above: Order Comment: Order Date: 08/19/24Order Info: [id number] - UACCOLLECTOR TO SPECIFY Performed By: #### M 100.2200, L400.0001 ####[facility] [address] [place], [address] Mucus Ql (Urine sed) 0 SEEN Normal [facility] Comment on above: Order Comment: Order Date: 08/19/24Order Info: [id number] - UACCOLLECTOR TO SPECIFY Performed By: #### M 100.2200, L400.0001 ####[facility] [address] [place], [address] RBC 0 SEEN Normal 0-5 [facility] Comment on above: Order Comment: Order Date: 08/19/24Order Info: [id number] - UACCOLLECTOR TO SPECIFY Performed By: #### M 100.2200, L400.0001 ####[facility] [address] [place], [address] CBC W/Diff, Automatedon 07-28 PATH REV Reviewed Normal [facility] Comment on above: Result Comment: Neut rophilic leukocytosis.Clinical correlation necessary.Mp Matso M.D. 08/18/24 AMENDED REPORT 08/18/24 1130 PATH REV previously reported as: March foll Performed By: #### L 100.0100, L500.4050, L501.5200 ####[facility] [address] [place], [address] Orthopedic Visit Reporton Orthopedic Visit Report Normal [facility] Comprehensive Metabolic Prof ilon 08-17-2024 Albumin [Mass/Vol] 3.3 g/dL Normal 3.2-5.0 [facility] Comment on above: Performed By: #### L 100.0100, L500.4050, L501.5200 ####[facility] [address] [place], [address] Albumin/Globulin [Mass ratio] 0.8 {ratio} Low 0.9-2.4 [facility] Comment on above: Performed By: #### L 100.0100, L500.4050, L501.5200 ####[facility] [address] [place], [address] ALK P 66 U/L Normal 45-117 [facility] Comment on above: Performed By: #### L 100.0100, L500.4050, L501.5200 ####[facility] [address] [place], [address] ALT [Catalytic activity/Vol] 23 U/L Normal 13-56 [facility] Comment on above: Performed By: #### L 100.0100, L500.4050, L501.5200 ####[facility] [address] [place], [address] AST [Catalytic activity/Vol] 17 U/L Normal 15-37 [facility] Comment on above: Performed By: #### L 100.0100, L500.4050, L501.5200 ####[facility] [address] [place], [address] Bilirubin [Mass/Vol] 0.30 mg/dL Normal 0.20-1.00 [facility] Comment on above: Result Comment: For patients on eltrombopag therapy, use of Dimension Corona TBIL is not recommended. Performed By: #### L 100.0100, L500.4050, L501.5200 ####[facility] [address] [place], [address] BUN/CRE 23.2 RATIO High 10-20 [facility] Comment on above: Performed By: #### L 100.0100, L500.4050, L501.5200 ####[facility] [address] [place], [address] CA,Total 9.4 mg/dL Normal 8.5-10.1 [facility] Comment on above: Performed By: #### L 100.0100, L500.4050, L501.5200 ####[facility] [address] [place], [address] Chloride [Moles/Vol] 101 mmol/L Normal 98-107 [facility] Comment on above: Performed By: #### L 100.0100, L500.4050, L501.5200 ####[facility] [address] [place], [address] CO2 [Moles/Vol] 36.0 mmol/L High 21.0-32.0 [facility] Comment on above: Performed By: #### L 100.0100, L500.4050, L501.5200 ####[facility] [address] [place], [address] Creatinine [Mass/Vol] 0.73 mg/dL Normal 0.55-1.02 [facility] Comment on above: Result Comment: The validity of the calculated GFR GFRAA in patients over70 years has not been determined. Clinical correlation isessential. Performed By: #### L 100.0100, L500.4050, L501.5200 ####[facility] [address] [place], [address] ECRCL 75.61 ml/min Normal [facility] Comment on above: Performed By: #### L 100.0100, L500.4050, L501.5200 ####[facility] [address] [place], [address] EST GFR - AA 100 mL/min Normal >60 [facility] Comment on above: Result Comment: Afri can Burkinan GFR Calc Performed By: #### L 100.0100, L500.4050, L501.5200 ####[facility] [address] [place], [address] GAP 2 Low 5-15 [facility] Comment on above: Performed By: #### L 100.0100, L500.4050, L501.5200 ####[facility] [address] [place], [address] GFR/1.73 sq M.predicted among non-blacks MDRD (S/P/Bld) [Vol rate/Area] 83 mL/min/{1.73_m2} Normal >60 [facility] Comment on above: Result Comment: Non- GFR Calc Performed By: #### L 100.0100, L500.4050, L501.5200 ####[facility] [address] [place], [address] Globulin (S) [Mass/Vol] 3.9 g/dL Normal 2.2-4.2 [facility] Comment on above: Performed By: #### L 100.0100, L500.4050, L501.5200 ####[facility] [address] [place], [address] Glucose [Mass/Vol] 110 mg/dL High 74-106 [facility] Comment on above: Result Comment: Fast ing Glucose result from 100 to 125 mg/dLsuggests IMPAIRED HOMEOSTASIS per A.D.A. criteria. Performed By: #### L 100.0100, L500.4050, L501.5200 ####[facility] [address] [place], [address] Potassium [Moles/Vol] 4.1 mmol/L Normal 3.5-5.1 [facility] Comment on above: Performed By: #### L 100.0100, L500.4050, L501.5200 ####[facility] [address] [place], [address] Sodium [Moles/Vol] 139 mmol/L Normal 136-145 [facility] Comment on above: Performed By: #### L 100.0100, L500.4050, L501.5200 ####[facility] [address] [place], [address] T PROT 7.2 g/dL Normal 6.4-8.2 [facility] Comment on above: Performed By: #### L 100.0100, L500.4050, L501.5200 ####[facility] [address] [place], [address] Urea nitrogen [Mass/Vol] 17 mg/dL Normal 7-18 [facility] Comment on above: Performed By: #### L 100.0100, L500.4050, L501.5200 ####[facility] [address] [place], [address] Emergency Department Summary on 08-17-2024 Emergency Department Summary Normal [facility] Humerus min 2 Viewson 2023 Humerus min 2 Views Normal [facility] Magnesiumon 08-17-2024 Magnesium [Mass/Vol] 1.8 mg/dL Normal 1.6-2.6 [facility] Comment on above: Performed By: #### L 100.0100, L500.4050, L501.5200 ####[facility] [address] [place], [address] Shoulder min 2 Viewson 08-17 Shoulder min 2 Views Normal [facility] Basic Metabolic Profile (BMP )on 05-16-2024 BUN/CRE 20.9 RATIO High 10-20 [facility] Comment on above: Performed By: #### L 500.2500, L500.4100 ####[facility] [address] [place], [address] CA,Total 9.1 mg/dL Normal 8.5-10.1 [facility] Comment on above: Performed By: #### L 500.2500, L500.4100 ####[facility] [address] [place], [address] Chloride [Moles/Vol] 99 mmol/L Normal 98-107 [facility] Comment on above: Performed By: #### L 500.2500, L500.4100 ####[facility] [address] [place], [address] CO2 [Moles/Vol] 36.0 mmol/L High 21.0-32.0 [facility] Comment on above: Performed By: #### L 500.2500, L500.4100 ####[facility] [address] [place], [address] Creatinine [Mass/Vol] 0.96 mg/dL Normal 0.55-1.02 [facility] Comment on above: Result Comment: The validity of the calculated GFR GFRAA in patients over70 years has not been determined. Clinical correlation isessential. Performed By: #### L 500.2500, L500.4100 ####[facility] [address] [place], [address] EST GFR - AA 74 mL/min Normal >60 [facility] Comment on above: Result Comment: Afri can [place]kin[place] GFR Calc Performed By: #### L 500.2500, L500.4100 ####[facility] [address] [place], [address] GAP 3 Low 5-15 [facility] Comment on above: Performed By: #### L 500.2500, L500.4100 ####[facility] [address] [place], [address] GFR/1.73 sq M.predicted among non-blacks MDRD (S/P/Bld) [Vol rate/Area] 61 mL/min/{1.73_m2} Normal >60 [facility] Comment on above: Result Comment: Non- GFR Calc Performed By: #### L 500.2500, L500.4100 ####[facility] [address] [place], [address] Glucose [Mass/Vol] 101 mg/dL Normal 74-106 [facility] Comment on above: Result Comment: Fast ing Glucose result from 100 to 125 mg/dLsuggests IMPAIRED HOMEOSTASIS per A.D.A. criteria. Performed By: #### L 500.2500, L500.4100 ####[facility] [address] [place], [address] Potassium [Moles/Vol] 4.2 mmol/L Normal 3.5-5.1 [facility] Comment on above: Performed By: #### L 500.2500, L500.4100 ####[facility] [address] [place], [address] Sodium [Moles/Vol] 138 mmol/L Normal 136-145 [facility] Comment on above: Performed By: #### L 500.2500, L500.4100 ####[facility] [address] [place], [address] Urea nitrogen [Mass/Vol] 20 mg/dL High 7-18 [facility] Comment on above: Performed By: #### L 500.2500, L500.4100 ####[facility] [address] [place], [address] Lipid Profileon 05-16-2024 Cholesterol [Mass/Vol] 174 mg/dL Normal 200 [facility] Comment on above: Result Comment: <200 mg/dL Desirable 200-240 mg/dL Borderline >240 mg/dL High Risk Performed By: #### L 500.2500, L500.4100 ####[facility] [address] [place], [address] Cholesterol in HDL [Mass/Vol] 60 mg/dL Normal [facility] Comment on above: Result Comment: The drugs N-Acetylcysteine and Metamizole may falselydepress this assay. Reference Range HDL <40 mg/dL Low HDL Cholesterol HDL >or= 60 mg/dL High HDL Cholesterol Performed By: #### L 500.2500, L500.4100 ####[facility] [address] [place], [address] Cholesterol in LDL [Mass/Vol] 92 mg/dL Normal 0-130 [facility] Comment on above: Performed By: #### L 500.2500, L500.4100 ####[facility] [address] [place], [address] Cholesterol in VLDL [Mass/Vol] 22 mg/dL Normal 5-40 [facility] Comment on above: Performed By: #### L 500.2500, L500.4100 ####[facility] [address] [place], [address] Triglyceride [Mass/Vol] 111 mg/dL Normal [facility] Comment on above: Result Comment: The drugs N-Acetylcysteine and Metamizole may falselydepress this assay.Serum Triglycerides Reference Interval Normal <150 mg/dL Borderline high 150 - 199 mg/dL High 200 - 499 mg/dL Very High > or = 500 mg/dL Performed By: #### L 500.2500, L500.4100 ####[facility] [address] [place], [address] Cardiology Visit Reporton Cardiology Visit Report Normal [facility] Absolute lymphocyte countOrd ered By: Whitney Espitia on 03-28-2024 Lymphocytes Auto (Unsp spec) [#/Vol] 1.63 10*3/uL 0.83-4.51 [facility] Activated partial thrombopla stin time (aPTT) in platelet poor plasma by coagulation aOrdered By: Whitney Espitia on 03-28-2024 aPTT Coag (PPP) [Time] 29.1 s 24.1-36.2 [facility] Automated lymphocyte count a s percentage of total leukocytesOrdered By: Whitney Espitia on 03-28-2024 Lymphocytes/100 WBC Auto (Unsp spec) 19.0 % 19-41 [facility] Basophil percentageOrdered B y: Whitney Espitia on 03-28-2024 Basophils/100 WBC (Bld) 0.4 % 0-1 [facility] Chloride [Moles/Vol] 98 mmol/L 98-107 [facility] Eosinophils/100 WBC (Bld) 3.4 % 0-5 [facility] Glucose [Mass/Vol] 95 mg/dL 74-106 [facility] Hemoglobin (Bld) [Mass/Vol] 12.0 g/dL 12.0-15.0 [facility] Monocytes/100 WBC (Bld) 10.4 % 0-10 [facility] Neutrophils (Bld) [#/Vol] 5.7 10*3/uL 2.0-7.7 [facility] Neutrophils/100 WBC (Bld) 66.4 % 47-70 [facility] Potassium [Moles/Vol] 4.4 mmol/L 3.5-5.1 [facility] Sodium [Moles/Vol] 135 mmol/L 136-145 [facility] WBC (Bld) [#/Vol] 8.6 10*3/uL 4.4-11.0 [facility] Determination of erythrocyte mean corpuscular volume (MCV)Ordered By: Whitney Espitia on 03-28-2024 MCV (RBC) [Entitic vol] 93.8 fL 81-99 [facility] Erythrocyte distribution wid th ratioOrdered By: Whitney Espitia on 03-28-2024 Erythrocyte distribution width (RBC) [Ratio] 14.9 % 11.6-14.6 [facility] Erythrocyte distribution wid th standard deviationOrdered By: Whitney Espitia on 03-28-2024 Erythrocyte distribution width (RBC) [Entitic vol] 51.7 fL 35.1-43.9 [facility] Hematocrit Auto (Bld) [Volum e fraction]Ordered By: Whitney Espitia on 03-28-2024 Hematocrit (Bld) [Volume fraction] 40.7 % 37-47 [facility] Immature granulocytes/100 WB C Auto (Bld)Ordered By: Whitney Espitia on 03-28-2024 Immature granulocytes/100 WBC (Bld) 0.400 % 0.0-0.9 [facility] Comment on above: IG% - Immature Granu locytes (promyelocytes, myelocytes and metamyelocytes) > 1% indicates that a LEFT SHIFT is Present. Laboratory - Chemistry and C hemistry - challengeOrdered By: Whitney Espitia on 03-28-2024 CO2 [Moles/Vol] 38.0 mmol/L 21.0-32.0 [facility] Urea nitrogen/Creatinine [Mass ratio] 25.1 mg/mg 10-20 [facility] Laboratory - CoagulationOrde red By: Whitney Espitia on 03-28-2024 INR Coag (Bld) [Relative time] 1.2 {INR} [facility] PT Coag (PPP) [Time] 14.9 s 11.7-14.9 [facility] Laboratory - Hematology and Cell countsOrdered By: Whitney Espitia on 03-28-2024 MCH (RBC) [Entitic mass] 27.6 pg 27.0-32.0 [facility] MCHC (RBC) [Mass/Vol] 29.5 g/dL 32-36 [facility] Nucleated RBC/100 WBC (Bld) [Ratio] 0 % 0-5 [facility] Platelet mean volume (Bld) [Entitic vol] 9.6 fL 6.2-12.0 [facility] Platelets (Bld) [#/Vol] 289 10*3/uL 150-450 [facility] No Panel InformationOrdered By: Whitney Espitia on 03-28-2024 Estimated GFR (MDRD) Amer 97 mL/min >60 [facility] Comment on above: GFR Calc Estimated GFR (MDRD) Non-Af Amer 80 mL/min >60 [facility] Comment on above: Non- GFR Calc RBC Auto (Bld) [#/Vol]Ordere d By: Whitney Espitia on 03-28-2024 RBC (Bld) [#/Vol] 4.34 10*6/uL 4.2-5.4 [facility] Serum or plasma calcium diallo urement (mass/volume)Ordered By: Whitney Espitia on 03-28-2024 Calcium [Mass/Vol] 9.3 mg/dL 8.5-10.1 [facility] Serum or plasma creatinine m easurement (mass/volume)Ordered By: Whitney Espitia on 03-28-2024 Creatinine [Mass/Vol] 0.76 mg/dL 0.55-1.02 [facility] Comment on above: The validity of the calculated GFR & GFRAA in patients over 70 years has not been determined. Clinical correlation is essential. Serum or plasma urea nitroge n measurement (mass/volume)Ordered By: Whitney Espitia on 03-28-2024 Urea nitrogen [Mass/Vol] 19 mg/dL 7-18 [facility] Thin prep Papanicolaou smear with manual screeningOrdered By: Whitney Espitia on 03-28-2024 Thin prep Papanicolaou smear with manual screening -1 5-15 [facility] Absolute lymphocyte countOrd ered By: Dolores Martin on 01-21-2024 Lymphocytes Auto (Unsp spec) [#/Vol] 1.55 10*3/uL 0.83-4.51 [facility] Automated lymphocyte count a s percentage of total leukocytesOrdered By: Dolores Martin on 01-21-2024 Lymphocytes/100 WBC Auto (Unsp spec) 15.3 % 19-41 [facility] Basophil percentageOrdered B y: Dolores Martin on 01-21-2024 Basophils/100 WBC (Bld) 0.6 % 0-1 [facility] Chloride [Moles/Vol] 104 mmol/L 98-107 [facility] Eosinophils/100 WBC (Bld) 2.5 % 0-5 [facility] Glucose [Mass/Vol] 104 mg/dL 74-106 [facility] Comment on above: Fasting Glucose resu lt from 100 to 125 mg/dL suggests IMPAIRED HOMEOSTASIS per A.D.A. criteria. Hemoglobin (Bld) [Mass/Vol] 12.5 g/dL 12.0-15.0 [facility] Monocytes/100 WBC (Bld) 9.3 % 0-10 [facility] Neutrophils (Bld) [#/Vol] 7.3 10*3/uL 2.0-7.7 [facility] Neutrophils/100 WBC (Bld) 71.7 % 47-70 [facility] Potassium [Moles/Vol] 4.1 mmol/L 3.5-5.1 [facility] Sodium [Moles/Vol] 140 mmol/L 136-145 [facility] WBC (Bld) [#/Vol] 10.2 10*3/uL 4.4-11.0 [facility] Determination of erythrocyte mean corpuscular volume (MCV)Ordered By: Dolores Martin on 01-21-2024 MCV (RBC) [Entitic vol] 88.9 fL 81-99 [facility] Erythrocyte distribution wid th ratioOrdered By: Dolores Martin on 01-21-2024 Erythrocyte distribution width (RBC) [Ratio] 15.0 % 11.6-14.6 [facility] Erythrocyte distribution wid th standard deviationOrdered By: Dolores Martin on 01-21-2024 Erythrocyte distribution width (RBC) [Entitic vol] 49.0 fL 35.1-43.9 [facility] Hematocrit Auto (Bld) [Volum e fraction]Ordered By: Dolores Martin on 01-21-2024 Hematocrit (Bld) [Volume fraction] 40.0 % 37-47 [facility] Immature granulocytes/100 WB C Auto (Bld)Ordered By: Dolores Martin on 01-21-2024 Immature granulocytes/100 WBC (Bld) 0.600 % 0.0-0.9 [facility] Comment on above: IG% - Immature Granu locytes (promyelocytes, myelocytes and metamyelocytes) > 1% indicates that a LEFT SHIFT is Present. Laboratory - Chemistry and C hemistry - challengeOrdered By: Dolores Martin on 01-21-2024 CO2 [Moles/Vol] 34.0 mmol/L 21.0-32.0 [facility] Urea nitrogen/Creatinine [Mass ratio] 24.1 mg/mg 10-20 [facility] Laboratory - Hematology and Cell countsOrdered By: Dolores Martin on 01-21-2024 MCH (RBC) [Entitic mass] 27.8 pg 27.0-32.0 [facility] MCHC (RBC) [Mass/Vol] 31.3 g/dL 32-36 [facility] Nucleated RBC/100 WBC (Bld) [Ratio] 0 % 0-5 [facility] Platelet mean volume (Bld) [Entitic vol] 9.8 fL 6.2-12.0 [facility] Platelets (Bld) [#/Vol] 287 10*3/uL 150-450 [facility] No Panel InformationOrdered By: Dolores Martin on 01-21-2024 Estimated Creatinine Clearance Calc 73.11 ml/min [facility] Estimated GFR (MDRD) Amer 132 mL/min >60 [facility] Comment on above: GFR Calc Estimated GFR (MDRD) Non-Af Amer 109 mL/min >60 [facility] Comment on above: Non- GFR Calc Troponin I High Sensitivity 10 pg/mL 3.0-54.0 [facility] Comment on above: Please Note: New Kathi t Units and Gender Specific Reference Ranges. For more information see Policy Stat Procedure Corona High Sensitivity Troponin (TNIH) and attachments. RBC Auto (Bld) [#/Vol]Ordere d By: Dolores Martin on 01-21-2024 RBC (Bld) [#/Vol] 4.50 10*6/uL 4.2-5.4 [facility] Serum or plasma calcium diallo urement (mass/volume)Ordered By: Dolores Martin on 01-21-2024 Calcium [Mass/Vol] 9.3 mg/dL 8.5-10.1 [facility] Serum or plasma creatinine m easurement (mass/volume)Ordered By: Dolores Martin on 01-21-2024 Creatinine [Mass/Vol] 0.58 mg/dL 0.55-1.02 [facility] Comment on above: The validity of the calculated GFR & GFRAA in patients over 70 years has not been determined. Clinical correlation is essential. Serum or plasma thyroid stim ulating hormone (TSH) measurement (units/volume)Ordered By: Dolores Martin on 01-21-2024 TSH Qn 1.53 uIU/mL 0.358-3.74 [facility] Serum or plasma urea nitroge n measurement (mass/volume)Ordered By: Dolores Martin on 01-21-2024 Urea nitrogen [Mass/Vol] 14 mg/dL 7-18 [facility] Thin prep Papanicolaou smear with manual screeningOrdered By: Dolores Martin on 01-21-2024 Thin prep Papanicolaou smear with manual screening 2 5-15 [facility] Absolute lymphocyte countOrd ered By: Christy Perea on 11-29-2023 Lymphocytes Auto (Unsp spec) [#/Vol] 1.50 10*3/uL 0.83-4.51 [facility] Basophil percentageOrdered B y: Christy Perea on 11-29-2023 Basophils/100 WBC (Bld) 0.7 % 0-1 [facility] Bilirubin [Mass/Vol] 0.40 mg/dL 0.20-1.00 [facility] Comment on above: For patients on eltr ombopag therapy, use of Dimension Corona TBIL is not recommended. Chloride [Moles/Vol] 99 mmol/L 98-107 [facility] Eosinophils/100 WBC (Bld) 4.3 % 0-5 [facility] Glucose [Mass/Vol] 95 mg/dL 74-106 [facility] Neutrophils (Bld) [#/Vol] 6.6 10*3/uL 2.0-7.7 [facility] Neutrophils/100 WBC (Bld) 67.9 % 47-70 [facility] Potassium [Moles/Vol] 4.4 mmol/L 3.5-5.1 [facility] Protein [Mass/Vol] 7.1 g/dL 6.4-8.2 [facility] Sodium [Moles/Vol] 139 mmol/L 136-145 [facility] WBC (Bld) [#/Vol] 9.7 10*3/uL 4.4-11.0 [facility] Blood erythrocytes count (nu mber/volume)Ordered By: Christy Perea on 11-29-2023 RBC (Bld) [#/Vol] 4.51 10*6/uL 4.2-5.4 [facility] Blood hemoglobin measurement (mass/volume)Ordered By: Christy Perea on 11-29-2023 Hemoglobin (Bld) [Mass/Vol] 12.4 g/dL 12.0-15.0 [facility] Blood lymphocytes/100 leukoc ytesOrdered By: Christy Perea on 11-29-2023 Lymphocytes/100 WBC (Bld) 15.4 % 19-41 [facility] Blood monocytes/100 leukocyt esOrdered By: Christy Perea on 11-29-2023 Monocytes/100 WBC (Bld) 11.5 % 0-10 [facility] Blood platelet mean volumeOr dered By: Christy Perea on 11-29-2023 Platelet mean volume (Bld) [Entitic vol] 10.0 fL 6.2-12.0 [facility] Determination of erythrocyte mean corpuscular volume (MCV)Ordered By: Christy Perea on 11-29-2023 MCV (RBC) [Entitic vol] 92.5 fL 81-99 [facility] Hematocrit Auto (Bld) [Volum e fraction]Ordered By: Christy Perea on 11-29-2023 Hematocrit (Bld) [Volume fraction] 41.7 % 37-47 [facility] Laboratory - Chemistry and C hemistry - challengeOrdered By: Christy Perea on 11-29-2023 ALP [Catalytic activity/Vol] 60 U/L 45-117 [facility] ALT [Catalytic activity/Vol] 15 U/L 13-56 [facility] CO2 [Moles/Vol] 36.0 mmol/L 21.0-32.0 [facility] Cobalamin (Vitamin B12) [Mass/Vol] 353 pg/mL 211-911 [facility] Globulin (S) [Mass/Vol] 3.9 g/dL 2.2-4.2 [facility] Urea nitrogen/Creatinine [Mass ratio] 19.7 mg/mg 10-20 [facility] Laboratory - Hematology and Cell countsOrdered By: Christy Perea on 11-29-2023 Erythrocyte distribution width (RBC) [Entitic vol] 47.0 fL 35.1-43.9 [facility] Erythrocyte distribution width (RBC) [Ratio] 13.8 % 11.6-14.6 [facility] Immature granulocytes/100 WBC (Bld) 0.200 % 0.0-0.9 [facility] Comment on above: IG% - Immature Granu locytes (promyelocytes, myelocytes and metamyelocytes) > 1% indicates that a LEFT SHIFT is Present. MCH (RBC) [Entitic mass] 27.5 pg 27.0-32.0 [facility] Nucleated RBC/100 WBC (Bld) [Ratio] 0 % 0-5 [facility] MCHC Auto (RBC) [Mass/Vol]Or dered By: Christy Perea on 11-29-2023 MCHC (RBC) [Mass/Vol] 29.7 g/dL 32-36 [facility] No Panel InformationOrdered By: Christy Perea on 11-29-2023 Estimated GFR (MDRD) Amer 104 mL/min >60 [facility] Comment on above: GFR Calc Estimated GFR (MDRD) Non-Af Amer 86 mL/min >60 [facility] Comment on above: Non- GFR Calc Thyroid Stimulating Hormone (TSH) 2.21 uIU/mL 0.358-3.74 [facility] Platelets bldOrdered By: Christy Perea on 11-29-2023 Platelets (Bld) [#/Vol] 322 10*3/uL 150-450 [facility] Serum or plasma albumin diallo urement (mass/volume)Ordered By: Christy Perea on 11-29-2023 Albumin [Mass/Vol] 3.2 g/dL 3.2-5.0 [facility] Serum or plasma albumin/glob ulin mass ratioOrdered By: Christy Perea on 11-29-2023 Albumin/Globulin [Mass ratio] 0.8 {ratio} 0.9-2.4 [facility] Serum or plasma calcium diallo urement (mass/volume)Ordered By: Christy Perea on 11-29-2023 Calcium [Mass/Vol] 8.8 mg/dL 8.5-10.1 [facility] Serum or plasma creatinine m easurement (mass/volume)Ordered By: Christy Perea on 11-29-2023 Creatinine [Mass/Vol] 0.71 mg/dL 0.55-1.02 [facility] Comment on above: The validity of the calculated GFR & GFRAA in patients over 70 years has not been determined. Clinical correlation is essential. Serum or plasma urea nitroge n measurement (mass/volume)Ordered By: Christy Perea on 11-29-2023 Urea nitrogen [Mass/Vol] 14 mg/dL 7-18 [facility] Thin prep Papanicolaou smear with manual screeningOrdered By: Christy Perea on 11-29-2023 Thin prep Papanicolaou smear with manual screening 14 U/L 15-37 [facility] Thin prep Papanicolaou smear with manual screening 4 5-15 [facility] Basophil percentageOrdered B y: Preston Pineda on 07-10-2023 WBC (Bld) [#/Vol] 15.5 10*3/uL 4.4-11.0 [facility] Blood erythrocytes count (nu mber/volume)Ordered By: Preston Pineda on 07-10-2023 RBC (Bld) [#/Vol] 4.54 10*6/uL 4.2-5.4 [facility] Blood hemoglobin measurement (mass/volume)Ordered By: Preston Pineda on 07-10-2023 Hemoglobin (Bld) [Mass/Vol] 13.3 g/dL 12.0-15.0 [facility] Blood platelet mean volumeOr dered By: Preston Pineda on 07-10-2023 Platelet mean volume (Bld) [Entitic vol] 9.9 fL 6.2-12.0 [facility] Determination of erythrocyte mean corpuscular volume (MCV)Ordered By: Preston Pineda on 07-10-2023 MCV (RBC) [Entitic vol] 97.4 fL 81-99 [facility] Hematocrit Auto (Bld) [Volum e fraction]Ordered By: Preston Pineda on 07-10-2023 Hematocrit (Bld) [Volume fraction] 44.2 % 37-47 [facility] Laboratory - Hematology and Cell countsOrdered By: Preston Pineda on 07-10-2023 Erythrocyte distribution width (RBC) [Entitic vol] 51.3 fL 35.1-43.9 [facility] Erythrocyte distribution width (RBC) [Ratio] 14.2 % 11.6-14.6 [facility] MCH (RBC) [Entitic mass] 29.3 pg 27.0-32.0 [facility] MCHC Auto (RBC) [Mass/Vol]Or dered By: Preston Pineda on 07-10-2023 MCHC (RBC) [Mass/Vol] 30.1 g/dL 32-36 [facility] Platelets bldOrdered By: Renetta Pineda on 07-10-2023 Platelets (Bld) [#/Vol] 257 10*3/uL 150-450 [facility] Absolute lymphocyte countOrd ered By: Geoff Galvan on 07-09-2023 Lymphocytes Auto (Unsp spec) [#/Vol] 0.64 10*3/uL 0.83-4.51 [facility] Basophil percentageOrdered B y: Geoff Galvan on 07-09-2023 Basophils/100 WBC (Bld) 0.3 % 0-1 [facility] Chloride [Moles/Vol] 100 mmol/L 98-107 [facility] Eosinophils/100 WBC (Bld) 0.0 % 0-5 [facility] Glucose [Mass/Vol] 144 mg/dL 74-106 [facility] Comment on above: Fasting Glucose resu lt greater than or equal to 126 mg/dL suggests DIABETES MELLITUS per A.D.A. criteria. Neutrophils (Bld) [#/Vol] 11.7 10*3/uL 2.0-7.7 [facility] Neutrophils/100 WBC (Bld) 91.8 % 47-70 [facility] Potassium [Moles/Vol] 4.3 mmol/L 3.5-5.1 [facility] Sodium [Moles/Vol] 137 mmol/L 136-145 [facility] Blood lymphocytes/100 leukoc ytesOrdered By: Geoff Galvan on 07-09-2023 Lymphocytes/100 WBC (Bld) 5.0 % 19-41 [facility] Blood monocytes/100 leukocyt esOrdered By: Geoff Galvan on 07-09-2023 Monocytes/100 WBC (Bld) 2.0 % 0-10 [facility] Laboratory - Chemistry and C hemistry - challengeOrdered By: Geoff Galvan on 07-09-2023 CO2 [Moles/Vol] 21.0 mmol/L 21.0-32.0 [facility] Urea nitrogen/Creatinine [Mass ratio] 18.1 mg/mg 10-20 [facility] Laboratory - Hematology and Cell countsOrdered By: Geoff Galvan on 07-09-2023 Immature granulocytes/100 WBC (Bld) 0.900 % 0.0-0.9 [facility] Comment on above: IG% - Immature Granu locytes (promyelocytes, myelocytes and metamyelocytes) > 1% indicates that a LEFT SHIFT is Present. Nucleated RBC/100 WBC (Bld) [Ratio] 0 % 0-5 [facility] No Panel InformationOrdered By: Geoff Galvan on 07-09-2023 Estimated Creatinine Clearance Calc 41.99 ml/min [facility] Estimated GFR (MDRD) Amer 140 mL/min >60 [facility] Comment on above: GFR Calc Estimated GFR (MDRD) Non-Af Amer 116 mL/min >60 [facility] Comment on above: Non- GFR Calc Serum or plasma calcium diallo urement (mass/volume)Ordered By: Geoff Galvan on 07-09-2023 Calcium [Mass/Vol] 8.9 mg/dL 8.5-10.1 [facility] Serum or plasma creatinine m easurement (mass/volume)Ordered By: Geoff Galvan on 07-09-2023 Creatinine [Mass/Vol] 0.55 mg/dL 0.55-1.02 [facility] Comment on above: The validity of the calculated GFR & GFRAA in patients over 70 years has not been determined. Clinical correlation is essential. Serum or plasma urea nitroge n measurement (mass/volume)Ordered By: Geoff Galvan on 07-09-2023 Urea nitrogen [Mass/Vol] 10 mg/dL 7-18 [facility] Thin prep Papanicolaou smear with manual screeningOrdered By: Geoff Galvan on 07-09-2023 Thin prep Papanicolaou smear with manual screening 16 5-15 [facility] Bacteria identified Respirat ory culture Nom (Unsp spec)Ordered By: Archie Gamino on 07-08-2023 Respiratory Culture Haemophilus influenzae [facility] Gram stain for investigation of transfusion reactionOrdered By: Archie Gamino on 07-08-2023 Microscopic observation Gram stain Nom (Unsp spec) [facility] Laboratory - Microbiology an d Antimicrobial susceptibilityOrdered By: Daja Hogan on 07-08-2023 SARS-CoV-2 (COVID-19) RNA KEARA+probe Ql (Unsp spec) [facility] No Panel InformationOrdered By: Archie Gamino on 07-08-2023 D-Dimer Quantitative (PE/DVT) 0.63 FEU/ug/m 0.27-0.49 [facility] Comment on above: D-Dimer ELEVATED (>0 .49): Additional studies and clinicalassessments are indicated to conclude diagnosis of:Deep Vein Thrombosis (DVT) or Pulmonary Embolism (PE)CRITICAL VALUE VERIFIED. CALLED TO BO OQUENDO07/08/23 1604 Ga Hogan.RESULTS READ BACK BY SAME . Troponin I High Sensitivity 24 pg/mL 3.0-54.0 [facility] Comment on above: Please Note: New Kathi t Units and Gender Specific Reference Ranges. For more information see Policy Stat Procedure [place]ona High Sensitivity Troponin (TNIH) and attachments. Sven 07-20-2022 CNPN Telephone (PULMMN) PIPER CLARK ([id number]) 1955 F Date Time Provider Department 07/20/22 STEPHANY LIND During your visit today, we recorded the following information about you: Stephany Lind 07/20/2022 2:52 PM Signed [facility] Information The patient wants to know why her PVR, 2.62 Wood Units, did not qualify her for PH medications? Per Dr. Newell, the PVR needs to be > 3 Wood Units for the patient to qualify in the future. The patient will contact is if she has any further questions. Bhavik ZAMORANO, RN PH AND HHT Chief Technician X Ray Respiratory Trin[facility] Allergies As of Date: 07/20/2022 Noted Allergy Reaction DUST MITES 06/30/2022 7 - Swelling FEATHERS 06/30/2022 7 - Swelling MOLD 06/30/2022 7 - Swelling Date Reviewed: 06/30/2022 Reviewed by: Lorne Newell MD - Fully Assessed Reason for Visit: Chief Technician X Ray - Other [3602] Prescriptions as of 07/20/2022 - fluticasone-vilanterol (BREO [...] Status:Closed by STEPHANY LIND on 07/20/22 Normal [facility] ARTERIAL BLOOD GASESon 07-19 Base excess Calc (Bld) [Moles/Vol] 1 mmol/L Normal 0-2 [facility] Comment on above: Order Comment: Speci men Type: ARTERIAL BLOOD SPECIMEN Ordering Facility: [facility] Address: [address] [place] [address] Performed By: #### A LLBG #### [facility] CLIA [id number] [address] [place] [address] [place] CALCIUM IONIZED, PH CORRECTED 1.18 mmol/L Normal 1.08-1.30 [facility] Comment on above: Order Comment: Speci men Type: ARTERIAL BLOOD SPECIMEN Ordering Facility: [facility] Address: [address] [place] [address] Performed By: #### A LLBG #### [facility] CLIA [id number] [address] [place] [address] [place] Calcium.ionized (Bld) [Mass/Vol] 1.13 mmol/L Normal 1.08-1.30 [facility] Comment on above: Order Comment: Speci men Type: ARTERIAL BLOOD SPECIMEN Ordering Facility: [facility] Address: [address] [place], [place] [id number] Performed By: #### A LLBG #### [facility] CLIA [id number] [address] [place] [address] [place] Carboxyhemoglobin (BldA) [Mass fraction] 1.4 % Normal 0.0-2.0 [facility] Comment on above: Order Comment: Speci men Type: ARTERIAL BLOOD SPECIMEN Ordering Facility: [facility] Address: [address] [place] [address] Result Comment: Carb oxyhemoglobin Reference Range for Smokers: 2.0-8.0% Performed By: #### A LLBG #### [facility] CLIA [id number] [address] [place] [address] [place] CO2 (Bld) [Partial pressure] 32 mm Hg Low 36-46 [facility] Comment on above: Order Comment: Speci men Type: ARTERIAL BLOOD SPECIMEN Ordering Facility: [facility] Address: [address] [place], [place] [id number] Performed By: #### A LLBG #### [facility] CLIA [id number] [address] [place] [address] [place] CO2 [Moles/Vol] 25 mmol/L Normal 22-28 [facility] Comment on above: Order Comment: Speci men Type: ARTERIAL BLOOD SPECIMEN Ordering Facility: [facility] Address: [address] [place] [address] Performed By: #### A LLBG #### [facility] CLIA [id number] [address] [place] [address] [place] CO2 adjusted to patient's actual temperature (Bld) [Partial pressure] 32 mmHg Low 36-46 [facility] Comment on above: Order Comment: Speci men Type: ARTERIAL BLOOD SPECIMEN Ordering Facility: [facility] Address: [address] [place] [address] Performed By: #### A LLBG #### [facility] CLIA [id number] [address] [place], [place] [id number] [place] Glucose [Mass/Vol] 97 mg/dL Normal 60-105 [facility] Comment on above: Order Comment: Speci men Type: ARTERIAL BLOOD SPECIMEN Ordering Facility: [facility] Address: [address] [place], [place] [id number] Performed By: #### A LLBG #### [facility] CLIA [id number] [address] [place] [address] [place] HCO3 (Bld) [Moles/Vol] 24 mmol/L Normal 22-26 [facility] Comment on above: Order Comment: Speci men Type: ARTERIAL BLOOD SPECIMEN Ordering Facility: [facility] Address: [address] [place], [place] [address] Performed By: #### A LLBG #### [facility] CLIA [id number] [address] [place] [address] [place] Hematocrit (Bld) [Volume fraction] 44.0 % Normal 36.0-46.0 [facility] Comment on above: Order Comment: Speci men Type: ARTERIAL BLOOD SPECIMEN Ordering Facility: [facility] Address: [address] [place], [place] [id number] Performed By: #### A LLBG #### [facility] CLIA [id number] [address] [place], [place] [address] [place] Hemoglobin (Bld) [Mass/Vol] 14.3 g/dL Normal 11.5-15.5 [facility] Comment on above: Order Comment: Speci men Type: ARTERIAL BLOOD SPECIMEN Ordering Facility: [facility] Address: [address] [place], [place] [phone] Performed By: #### A LLBG #### [facility] CLIA [id number] [address] [place] [address] [place] Lactate [Moles/Vol] 0.9 mmol/L Normal 0.5-2.2 [facility] Comment on above: Order Comment: Speci men Type: ARTERIAL BLOOD SPECIMEN Ordering Facility: [facility] Address: [address] [place] [address] Performed By: #### A LLBG #### [facility] CLIA [id number] [address] [place] [address] [place] Order Comment: Speci men Type: VENOUS BLOOD SPECIMEN Ordering Facility: [facility] Address: [address] [place], [place] [address] Performed By: #### 2 [id number] #### [facility] CLIA [id number] [address] [place] [address] [place] Methemoglobin (Bld) [Mass fraction] 0.9 % Normal 0.0-1.5 [facility] Comment on above: Order Comment: Speci men Type: ARTERIAL BLOOD SPECIMEN Ordering Facility: [facility] Address: [address] [place], [place] [phone] Performed By: #### A LLBG #### [facility] CLIA [id number] [address] [place] [address] [place] Oxygen (Bld) [Partial pressure] 77 mm Hg Low 85-95 [facility] Comment on above: Order Comment: Speci men Type: ARTERIAL BLOOD SPECIMEN Ordering Facility: [facility] Address: [address] [place] [address] Performed By: #### A LLBG #### [facility] CLIA [id number] [address] [place] [address] [place] Oxygen adjusted to patient's actual temperature (Bld) [Partial pressure] 77 mmHg Low 85-95 [facility] Comment on above: Order Comment: Speci men Type: ARTERIAL BLOOD SPECIMEN Ordering Facility: [facility] Address: [address] [place] [address] Performed By: #### A LLBG #### [facility] CLIA [id number] [address] [place], [place] [address] [place] OXYGEN SATURATION, ARTERIAL 96 % Normal 95-98 [facility] Comment on above: Order Comment: Speci men Type: ARTERIAL BLOOD SPECIMEN Ordering Facility: [facility] Address: [address] [place] [address] Performed By: #### A LLBG #### [facility] CLIA [id number] [address] [place] [address] [place] Oxyhemoglobin (BldA) [Mass fraction] 94 % Low 95-98 [facility] Comment on above: Order Comment: Speci men Type: ARTERIAL BLOOD SPECIMEN Ordering Facility: [facility] Address: [address] [place] [address] Performed By: #### A LLBG #### [facility] CLIA [id number] [address] [place] [address] [place] PATIENT POSITION-ICPET Wedge Normal Cl [facility] Comment on above: Order Comment: Speci men Type: ARTERIAL BLOOD SPECIMEN Ordering Facility: [facility] Address: [address] [place] [address] Performed By: #### A LLBG #### [facility] CLIA [id number] [address] [place] [address] [place] pH (Bld) 7.48 [pH] High 7.35-7.45 [facility] Comment on above: Order Comment: Speci men Type: ARTERIAL BLOOD SPECIMEN Ordering Facility: [facility] Address: [address] [place] [address] Performed By: #### A LLBG #### [facility] CLIA [id number] [address] [place] [address] [place] pH adjusted to patient's actual temperature (Bld) 7.48 High 7.35-7.45 [facility] Comment on above: Order Comment: Speci men Type: ARTERIAL BLOOD SPECIMEN Ordering Facility: [facility] Address: [address] [place] [address] Performed By: #### A LLBG #### [facility] CLIA [id number] [address] [place] [address] [place] Potassium [Moles/Vol] 3.5 mmol/L Normal 3.5-5.0 [facility] Comment on above: Order Comment: Speci men Type: ARTERIAL BLOOD SPECIMEN Ordering Facility: [facility] Address: [address] [place] [address] Performed By: #### A LLBG #### [facility] CLIA [id number] [address] [place] [address] [place] Sodium [Moles/Vol] 138 mmol/L Normal 136-144 [facility] Comment on above: Order Comment: Speci men Type: ARTERIAL BLOOD SPECIMEN Ordering Facility: [facility] Address: [address] [place] [address] Performed By: #### A LLBG #### [facility] CLIA [id number] [address] [place] [address] [place] Base excess Calc (Bld) [Moles/Vol] 1 mmol/L 0 - 2 mmol/L [facility] Calcium Ionized, pH corrected 1.18 mmol/L 1.08 - 1.30 mmol/L [facility] Calcium.ionized (Bld) [Mass/Vol] 1.13 mmol/L 1.08 - 1.30 mmol/L [facility] Carboxyhemoglobin (BldA) [Mass fraction] 1.4 % 0.0 - 2.0 % [facility] CO2 (Bld) [Partial pressure] 32 mm Hg Low 36 - 46 mm Hg [facility] CO2 [Moles/Vol] 25 mmol/L 22 - 28 mmol/L [facility] CO2 adjusted to patient's actual temperature (Bld) [Partial pressure] 32 mmHg Low 36 - 46 mmHg [facility] Glucose [Mass/Vol] 97 mg/dL 60 - 105 mg/dL [facility] HCO3 (Bld) [Moles/Vol] 24 mmol/L 22 - 26 mmol/L [facility] Hematocrit (Bld) [Volume fraction] 44.0 % 36.0 - 46.0 % [facility] Hemoglobin (Bld) [Mass/Vol] 14.3 g/dL 11.5 - 15.5 g/dL [facility] Lactate [Moles/Vol] 0.9 mmol/L 0.5 - 2. 2 mmol/L [facility] Methemoglobin (Bld) [Mass fraction] 0.9 % 0.0 - 1.5 % [facility] Oxygen (Bld) [Partial pressure] 77 mm Hg Low 85 - 95 mm Hg [facility] Oxygen adjusted to patient's actual temperature (Bld) [Partial pressure] 77 mmHg Low 85 - 95 mmHg [facility] Oxygen saturation in Blood 96 % 95 - 98 % [facility] Oxyhemoglobin (BldA) [Mass fraction] 94 % Low 95 - 98 % [facility] Patient Position Wedge [facility] pH (Bld) 7.48 [pH] High 7.35 - 7.45 [facility] pH adjusted to patient's actual temperature (Bld) 7.48 High 7.35 - 7.45 [facility] Potassium [Moles/Vol] 3.5 mmol/L 3.5 - 5.0 mmol/L [facility] Sodium [Moles/Vol] 138 mmol/L 136 - 144 mmol/L [facility] CNOVon 07-19-2022 CNOV Office Visit (PUBRON ) PIPER CLARK ([id number]) 1955 F Date Time Provider Department 8/24/22 4:00 PM PULM MAIN [id number] PROCEDURE RMPUBRON During your visit today, we recorded the following information about you: Weight Height 88.2 kg 1.575 m Referring Provider: LORNE NEWELL [[id number]] Allergies As of Date: 07/19/2022 Noted Allergy Reaction DUST MITES 06/30/2022 7 - Swelling FEATHERS 06/30/2022 7 - Swelling MOLD 06/30/2022 7 - Swelling Date Reviewed: 06/30/2022 Reviewed by: Lorne Newell MD - Fully Assessed Primary Visit Diagnosis:Stage 3 severe COPD by GOLD classification (HCC) [J44.9] Order(s):XR ARTERY CATHETER (POC) FOR REYNALDO USE ONLY [9035319] Order #: [id number]: 1 US VASCULAR (POC) FOR REYNALDO USE ONLY [6647618] Order #: [id number]. #:[id number]: 1 ARTERIAL BLOOD GASES [SQALLBG] Order #: [id number]. #:[id number] VENOUS BLOOD GASES [SQVALLBG] Order #: [id number]. #:[id number] Prescriptions as of 07/19/2022 - fluticasone-vilanterol (BREO [...] Status:Closed by LE ORTEGA on 07/19/22 Normal [facility] Carbon monoxide pane l (BldV)on 07-19-2022 Base excess Calc (BldV) [Moles/Vol] 3 mmol/L High 0-2 [facility] Comment on above: Order Comment: Speci men Type: VENOUS BLOOD SPECIMEN Ordering Facility: [facility] Address: [address] [place] [address] Performed By: #### 2 4344-4 #### [facility] CLIA [id number] [address] [place] [address] [place] CALCIUM IONIZED, PH CORRECTED 1.24 mmol/L Normal 1.08-1.30 [facility] Comment on above: Order Comment: Speci men Type: VENOUS BLOOD SPECIMEN Ordering Facility: [facility] Address: [address] [place] [address] Performed By: #### 2 4344-4 #### [facility] CLIA [id number] [address] [place] [address] [place] Calcium.ionized (Bld) [Mass/Vol] 1.24 mmol/L Normal 1.08-1.30 [facility] Comment on above: Order Comment: Speci men Type: VENOUS BLOOD SPECIMEN Ordering Facility: [facility] Address: [address] [place] [address] Performed By: #### 2 4344-4 #### [facility] CLIA [id number] [address] [place] [address] [place] Carboxyhemoglobin (BldV) [Mass fraction] 0.8 % Normal 0.0-2.0 [facility] Comment on above: Order Comment: Speci men Type: VENOUS BLOOD SPECIMEN Ordering Facility: [facility] Address: [address] [place] [address] Result Comment: Carb oxyhemoglobin Reference Range for Smokers: 2.0-8.0% Performed By: #### 2 4344-4 #### [facility] CLIA [id number] [address] [place] [address] [place] CO2 (BldV) [Partial pressure] 48 mm[Hg] Normal 42-55 [facility] Comment on above: Order Comment: Speci men Type: VENOUS BLOOD SPECIMEN Ordering Facility: [facility] Address: [address] [place] [address] Performed By: #### 2 4344-4 #### [facility] CLIA [id number] [address] [place] [address] [place] CO2 [Moles/Vol] 30 mmol/L High 25-29 [facility] Comment on above: Order Comment: Speci men Type: VENOUS BLOOD SPECIMEN Ordering Facility: [facility] Address: [address] [place], [place] [address] Performed By: #### 2 4344-4 #### [facility] CLIA [id number] [address] [place] [address] [place] CO2 adjusted to patient's actual temperature (BldV) [Partial pressure] 48 mmHg Normal 42-55 [facility] Comment on above: Order Comment: Speci men Type: VENOUS BLOOD SPECIMEN Ordering Facility: [facility] Address: [address] [place], [place] [address] Performed By: #### 2 4344-4 #### [facility] CLIA [id number] [address] [place] [address] [place] Glucose [Mass/Vol] 103 mg/dL Normal 60-105 [facility] Comment on above: Order Comment: Speci men Type: VENOUS BLOOD SPECIMEN Ordering Facility: [facility] Address: [address] [place] [address] Performed By: #### 2 4344-4 #### [facility] CLIA [id number] [address] [place] [address] [place] HCO3 (Bld) [Moles/Vol] 28 mmol/L Normal 24-28 [facility] Comment on above: Order Comment: Speci men Type: VENOUS BLOOD SPECIMEN Ordering Facility: [facility] Address: [address] [place] [address] Performed By: #### 2 4344-4 #### [facility] CLIA [id number] [address] [place] [address] [place] Hematocrit (Bld) [Volume fraction] 43.1 % Normal 36.0-46.0 [facility] Comment on above: Order Comment: Speci men Type: VENOUS BLOOD SPECIMEN Ordering Facility: [facility] Address: [address] [place], [place] [address] Performed By: #### 2 4344-4 #### [facility] CLIA [id number] [address] [place] [address] [place] Hemoglobin (Bld) [Mass/Vol] 14.1 g/dL Normal 11.5-15.5 [facility] Comment on above: Order Comment: Speci men Type: VENOUS BLOOD SPECIMEN Ordering Facility: [facility] Address: [address] [place], [place] [address] Performed By: #### 2 4344-4 #### [facility] CLIA [id number] [address] [place] [address] [place] Methemoglobin (Bld) [Mass fraction] 1.0 % Normal 0.0-1.5 [facility] Comment on above: Order Comment: Speci men Type: VENOUS BLOOD SPECIMEN Ordering Facility: [facility] Address: [address] [place] [address] Performed By: #### 2 4344-4 #### [facility] CLIA [id number] [address] [place] [address] [place] Oxygen (BldV) [Partial pressure] 43 mm[Hg] Normal 35-45 [facility] Comment on above: Order Comment: Speci men Type: VENOUS BLOOD SPECIMEN Ordering Facility: [facility] Address: [address] [place] [address] Performed By: #### 2 4344-4 #### [facility] CLIA [id number] [address] [place] [address] [place] Oxygen adjusted to patient's actual temperature (BldV) [Partial pressure] 43 mmHg Normal 35-45 [facility] Comment on above: Order Comment: Speci men Type: VENOUS BLOOD SPECIMEN Ordering Facility: [facility] Address: [address] [place] [address] Performed By: #### 2 4344-4 #### [facility] CLIA [id number] [address] [place] [address] [place] Oxygen saturation in Blood 76 % Normal 60-85 [facility] Comment on above: Order Comment: Speci men Type: VENOUS BLOOD SPECIMEN Ordering Facility: [facility] Address: [address] [place], [place] [address] Performed By: #### 2 4344-4 #### [facility] CLIA [id number] [address] [place] [address] [place] Oxyhemoglobin (BldV) [Mass fraction] 74 % Normal 60-85 [facility] Comment on above: Order Comment: Speci men Type: VENOUS BLOOD SPECIMEN Ordering Facility: [facility] Address: [address] [place] [address] Performed By: #### 2 4344-4 #### [facility] CLIA [id number] [address] [place] [address] [place] PATIENT POSITION-ICPET Baseline Normal [facility] Comment on above: Order Comment: Speci men Type: VENOUS BLOOD SPECIMEN Ordering Facility: [facility] Address: [address] [place], [place] [address] Result Comment: Supi ne Performed By: #### 2 4344-4 #### [facility] CLIA [id number] [address] [place], [place] [address] [place] pH (BldV) 7.39 [pH] Normal 7.32-7.42 [facility] Comment on above: Order Comment: Speci men Type: VENOUS BLOOD SPECIMEN Ordering Facility: [facility] Address: [address] [place], [place] [address] Performed By: #### 2 4344-4 #### [facility] CLIA [id number] [address] [place] [address] [place] pH adjusted to patient's actual temperature (BldV) 7.39 Normal 7.32-7.42 [facility] Comment on above: Order Comment: Speci men Type: VENOUS BLOOD SPECIMEN Ordering Facility: [facility] Address: [address] [place], [place] [address] Performed By: #### 2 4344-4 #### [facility] CLIA [id number] [address] [place] [address] [place] Potassium [Moles/Vol] 3.8 mmol/L Normal 3.5-5.0 [facility] Comment on above: Order Comment: Speci men Type: VENOUS BLOOD SPECIMEN Ordering Facility: [facility] Address: [address] [place], [place] [address] Performed By: #### 2 4344-4 #### [facility] CLIA [id number] [address] [place] [address] [place] Sodium [Moles/Vol] 139 mmol/L Normal 136-144 [facility] Comment on above: Order Comment: Speci men Type: VENOUS BLOOD SPECIMEN Ordering Facility: [facility] Address: [address] [place] [address] Performed By: #### 2 4344-4 #### [facility] CLIA [id number] [address] [place] [address] [place] Base excess Calc (BldV) [Moles/Vol] 3 mmol/L High 0 - 2 mmol/L [facility] Calcium Ionized, pH corrected 1.24 mmol/L 1.08 - 1.30 mmol/L [facility] Calcium.ionized (Bld) [Mass/Vol] 1.24 mmol/L 1.08 - 1.30 mmol/L [facility] Carboxyhemoglobin (BldV) [Mass fraction] 0.8 % 0.0 - 2.0 % [facility] CO2 (BldV) [Partial pressure] 48 mm[Hg] 42 - 55 mmHg [facility] CO2 [Moles/Vol] 30 mmol/L High 25 - 29 mmol/L [facility] CO2 adjusted to patient's actual temperature (BldV) [Partial pressure] 48 mmHg 42 - 55 mmHg [facility] Glucose [Mass/Vol] 103 mg/dL 60 - 105 mg/dL [facility] HCO3 (Bld) [Moles/Vol] 28 mmol/L 24 - 28 mmol/L [facility] Hematocrit (Bld) [Volume fraction] 43.1 % 36.0 - 46.0 % [facility] Hemoglobin (Bld) [Mass/Vol] 14.1 g/dL 11.5 - 15.5 g/dL [facility] Lactate [Moles/Vol] 0.9 mmol/L 0.5 - 2. 2 mmol/L [facility] Methemoglobin (Bld) [Mass fraction] 1.0 % 0.0 - 1.5 % [facility] Oxygen (BldV) [Partial pressure] 43 mm[Hg] 35 - 45 mmHg [facility] Oxygen adjusted to patient's actual temperature (BldV) [Partial pressure] 43 mmHg 35 - 45 mmHg [facility] Oxygen saturation in Blood 76 % 60 - 85 % [facility] Oxyhemoglobin (BldV) [Mass fraction] 74 % 60 - 85 % [facility] Patient Position Baseline Supine [facility] pH (BldV) 7.39 [pH] 7.32 - 7.42 [facility] pH adjusted to patient's actual temperature (BldV) 7.39 7.32 - 7.42 [facility] Potassium [Moles/Vol] 3.8 mmol/L 3.5 - 5.0 mmol/L [facility] Sodium [Moles/Vol] 139 mmol/L 136 - 144 mmol/L [facility] US VASCULAR (POC) FOR REYNALDO US E ONLYon 07-19-2022 [facility] SARS-CoV-2 RNA Resp Ql KEARA+p robeon 07-17-2022 SARS-CoV-2 (COVID-19) RNA KEARA+probe Ql (Resp) SARS-CoV-2 (Agent of COVID-19) Not Detected by RT-PCR or equivalent method. Normal Not Detected [facility] Comment on above: Order Comment: Speci men Type: VENOUS BLOOD SPECIMEN Ordering Facility: [facility] Address: [address] [place] [address] Result Comment: This test was developed and its performance characteristics determined by [facility]'s [facility] [place]. This test has been authorized by FDA under an Emergency Use Authorization (EUA). This test has been validated in accordance with the FDA's Guidance Document Policy for Diagnostics Testing in Laboratories Certified to Perform High Complexity Testing under CLIA prior to Emergency use Authorization for Coronavirus Disease 2019 during the Public Health Emergency issued on January 24, 2020. Test performed by [facility], [facility] [place], [address] [place] [address]. Performed By: #### 2 4344-4 #### [facility] CLIA [id number] [address] [place], [place] [address] [address] OF [facility] CNPNon 07-12-2022 CNPN Telephone (PULMMN) PIPER CLARK ([id number]) 1955 F Date Time Provider Department 07/12/22 ORLANDO SIMPSON During your visit today, we recorded the following information about you: Orlando Simpson MA 07/12/2022 12:37 PM Signed Patient called me to state her grandson tested positive for Covid. Covid order is being placed for her to have one before her RHC on 07/[address] Newell. Orlando Simpson Clinical Information Coder [facility] [place] Allergies As of Date: 07/12/2022 Noted Allergy Reaction DUST MITES 06/30/2022 7 - Swelling FEATHERS 06/30/2022 7 - Swelling MOLD 06/30/2022 7 - Swelling Date Reviewed: 06/30/2022 Reviewed by: Lorne Newell MD - Fully Assessed Reason for Visit: Patient Question [[id number]] Prescriptions as of 07/12/2022 - fluticasone-vilanterol (BREO [...] Encounter Status:Closed by OR[facility]JESSIE[facility] PIPER CLARK ([id number]) 1955 F Date Time Provider Department 07/11/22 ORLANDO SIMPSON During your visit today, we recorded the following information about you: Orlando Simpson MA 07/11/2022 10:22 AM Signed Called patient to confirm her RHC with Dr. Newell on 07/19 at 4pm. No answer, left VM. Orlando Simpson Clinical Information Coder [facility] [place] Allergies As of Date: 07/11/2022 Noted Allergy Reaction DUST MITES 06/30/2022 7 - Swelling FEATHERS 06/30/2022 7 - Swelling MOLD 06/30/2022 7 - Swelling Date Reviewed: 06/30/2022 Reviewed by: Lorne Newell MD - Fully Assessed Reason for Visit: Appointment Confirmation [[id number]] Prescriptions as of 07/11/2022 - fluticasone-vilanterol (BREO [...] Encounter Status:Closed by ORLANDO SIMPSON on 07/11/22 [facility] 06-05-2022 [facility] (JESSIE) PIPER CLARK ([id number]) 1955 F Date Time Provider Department 06/05/22 ORLANDO SIMPSON During your visit today, we recorded the following information about you: Orlando Simpson MA 06/05/2022 10:54 AM Signed Called patient to schedule her RHC with Dr. Newell on 07/19/2022 at 4pm. NPO 4 hours pre-procedure. Anticoagulation: None at this time Must have a putaway driver for transportation post procedure. May take other medications as prescribed prior to procedure. Check in at desk G-11 at 3:30pm Orlando Simpson Clinical Information Coder [facility] Allergies As of Date: 06/05/2022 (Not on File) Date Reviewed: Never Reviewed Reason for Visit: Care Coordination [3491] Problem List As Of Date: 06/05/2022 (None) Encounter Status:Closed by ORLANDO SIMPSON on 06/05/22 [facility] 06-02-2022 CNPN Telephone (PULMMN) PIPER CLARK ([id number]) 1955 F Date Time Provider Department 06/02/22 ORLANDO SIMPSON During your visit today, we recorded the following information about you: Orlando Simpson MA 06/02/2022 9:35 AM Signed Called patient to schedule her RHC with Dr. Newell. No answer, left VM. Orlando iSmpson Clinical Information Coder [facility] Allergies As of Date: 06/02/2022 (Not on File) Date Reviewed: Never Reviewed Reason for Visit: Care Coordination [3491] Problem List As Of Date: 06/02/2022 (None) Encounter Status:Closed by ORLANDO SIMPSON on 06/02/22 [facility] 05-18-2022 CNPN Telephone (PMNA11) PIPER CLARK ([id number]) 1955 F Date Time Provider Department 05/18/22 LORNE NEWELL PMNA11 During your visit today, we recorded the following information about you: Devonte Navas 05/18/2022 1:[address] Mitchell Brian contacted Mic Webber MD for a RHC. Dr. Webber does not perform RHC's and has deferred to Dr. Newell. I am requesting recent office notes from office: [phone] Devonte Yosef 05/19/2022 8:56 AM Signed Uploaded outside medical records from Dr. Brian. Please allow time for document to appear in [facility]or[facility]. Devonte Navas 05/19/2022 12:25 PM Signed Requested PFTs, echo report, and CT report from Dr. Brian. Devonte Navas 05/22/2022 2:55 PM Signed Uploaded additional records from Dr. Brian. Please allow time for document to appear in [facility]or[facility]. Devonte Mial[place]a 05/26/2022 10:42 AM Signed Spoke with patient; she will call [phone] to get registered with [facility]. Allergies As of Date: 05/18/2022 (Not on File) Date Reviewed: Never Reviewed Reason for Visit: Request Outside Medical Records [[id number]] Received Outside Medical Records [[id number]] Problem List As Of Date: 05/18/2022 (None) Encounter Status:Closed by DEVONTE NAVAS on 05/18/22 Normal [facility] RIGHT HEART CATH O2 SATURATI ON & CARDIAC OUTPUT [facility] Vital Signs Date Time Vital Sign Value Performing Clinician Facility 04-30-2025 12:040 Body height 157.[address] Christy Perea MD Work Phone: [facility] 04-30-2025 12:040 Body mass index (BMI) [Ratio] 43.3 kg/m2 Dr. Christy Perea MD Work Phone: [facility] 04-30-2025 12:040 Body weight 107.[address] Christy Perea MD Work Phone: [facility] 04-30-2025 12:28-0400 Diastolic blood pressure 62 mm[Hg] Dr. Christy Perea MD Work Phone: [facility] 04-30-2025 12:28-0400 Heart rate 70 /min Dr. Christy Perea MD Work Phone: [facility] 04-30-2025 12:28-0400 Respiratory rate 18 /min Dr. Christy Perea MD Work Phone: [facility] 04-30-2025 12:28-0400 Systolic blood pressure 100 mm[Hg] Dr. Christy Perea MD Work Phone: [facility] 04-10-2025 15:20-0400 Heart rate 70 /min Dr. Christy Perea MD Work Phone: [facility] 04-10-2025 15:20-0400 Inhaled oxygen concentration 30 % Dr. Christy Perea MD Work Phone: [facility] 04-10-2025 15:20-0400 Respiratory rate 19 /min Dr. Christy Perea MD Work Phone: [facility] 04-10-2025 15:20-0400 SaO2% (BldA) [Mass fraction] 97 % Dr. Christy Perea MD Work Phone: [facility] 04-10-2025 14:56-0400 Body temperature 98.1 [degF] Dr. Christy Perea MD Work Phone: [facility] 04-10-2025 14:56-0400 Diastolic blood pressure 80 mm[Hg] Dr. Christy Perea MD Work Phone: [facility] 04-10-2025 14:56-0400 Inhaled oxygen flow rate 4 L/min Dr. Christy Perea MD Work Phone: [facility] 04-10-2025 14:56-0400 Systolic blood pressure 140 mm[Hg] Dr. Christy Perea MD Work Phone: [facility] 04-10-2025 04:23-0400 Body mass index (BMI) [Ratio] 45.3 kg/m2 Dr. Christy Perea MD Work Phone: [facility] 04-10-2025 04:23-0400 Body weight 112.[address] Christy Perea MD Work Phone: [facility] 04-09-2025 15:15-0400 Body height 157.[address] Christy Perea MD Work Phone: 9(988)594-032434 [address] 04-08-2025 11:16-0400 Inhaled oxygen flow rate 4 L/min Dr. Christy Perea MD Work Phone: 6(390)483-725669 [place] [address] 04-08-2025 11:16-0400 SaO2% (BldA) [Mass fraction] 100 % Dr. Christy Perea MD Work Phone: 0(412)353-927569 [place] [address] 04-08-2025 10:49-0400 Heart rate 89 /min Dr. Christy Perea MD Work Phone: 5(408)987-319169 [place] [address] 04-08-2025 10:49-0400 Respiratory rate 20 /min Dr. Christy Perea MD Work Phone: 7(191)359-893934 [address] 04-08-2025 09:16-0400 Body temperature 98 [degF] Dr. Christy Perea MD Work Phone: 9(363)600-537869 [place] [address] 04-08-2025 09:16-0400 Diastolic blood pressure 74 mm[Hg] Dr. Christy Perea MD Work Phone: 5(414)602-650239 [place] [address] 04-08-2025 09:16-0400 Systolic blood pressure 126 mm[Hg] Dr. Christy Perea MD Work Phone: 0(725)618-745769 [place] [address] 04-08-2025 05:50-0400 Body mass index (BMI) [Ratio] 45.3 kg/m2 Dr. Christy Perea MD Work Phone: 7(703)517-268334 [address] 04-08-2025 05:50-0400 Body weight 112.[address] Christy Perea MD Work Phone: 1(301)286-023139 [place] [address] 04-08-2025 04:02-0400 Inhaled oxygen concentration 35 % Dr. Christy Perea MD Work Phone: [facility] 04-06-2025 10:07-0400 Body height 157.[address] Christy Perea MD Work Phone: [facility] 04-05-2025 23:41-0400 Body temperature 98.1 [degF] Dr. Christy Perea MD Work Phone: [facility] 04-05-2025 23:41-0400 Diastolic blood pressure 63 mm[Hg] Dr. Christy Perea MD Work Phone: [facility] 04-05-2025 23:41-0400 Heart rate 92 /min Dr. Christy Perea MD Work Phone: [facility] 04-05-2025 23:41-0400 Respiratory rate 16 /min Dr. Christy Perea MD Work Phone: [facility] 04-05-2025 23:41-0400 SaO2% (BldA) [Mass fraction] 98 % Dr. Christy Perea MD Work Phone: [facility] 04-05-2025 23:41-0400 Systolic blood pressure 110 mm[Hg] Dr. Christy Perea MD Work Phone: [facility] 04-05-2025 22:54-0400 Inhaled oxygen concentration 50 % Dr. Christy Perea MD Work Phone: [facility] 04-05-2025 22:54-0400 Inhaled oxygen flow rate 50 L/min Dr. Christy Perea MD Work Phone: [facility] 04-05-2025 20:27-0400 Body height 154.[address] Christy Perea MD Work Phone: [facility] 04-05-2025 20:27-0400 Body mass index (BMI) [Ratio] 49 kg/m2 Dr. Christy Perea MD Work Phone: [facility] 04-05-2025 20:27-0400 Body weight 117.[address] Christy Perea MD Work Phone: 4(829)391-441839 [place] [address] 03-25-2025 14:24-0400 Body temperature 98.2 [degF] Dr. Christy Perea MD Work Phone: 2(476)732-541069 [place] [address] 03-25-2025 14:24-0400 Diastolic blood pressure 69 mm[Hg] Dr. Christy Perea MD Work Phone: 7(142)487-831969 [place] [address] 03-25-2025 14:24-0400 Heart rate 71 /min Dr. Christy Perea MD Work Phone: 7(124)020-695469 [place] [address] 03-25-2025 14:24-0400 Respiratory rate 15 /min Dr. Christy Perea MD Work Phone: 5(158)829-115669 [place] [address] 03-25-2025 14:24-0400 SaO2% (BldA) [Mass fraction] 97 % Dr. Christy Perea MD Work Phone: 6(056)711-286339 [place] [address] 03-25-2025 14:24-0400 Systolic blood pressure 115 mm[Hg] Dr. Christy Perea MD Work Phone: 8(799)585-973069 [place] [address] 03-25-2025 11:48-0400 Inhaled oxygen flow rate 4 L/min Dr. Christy Perea MD Work Phone: 3(830)753-463069 [place] [address] 03-25-2025 11:43-0400 Body height 154.[address] Christy Perea MD Work Phone: 4(804)203-086569 [place] [address] 03-25-2025 11:43-0400 Body mass index (BMI) [Ratio] 46.4 kg/m2 Dr. Christy Perea MD Work Phone: 0(822)559-788839 [place] [address] 03-25-2025 11:43-0400 Body weight 111.[address] Christy Perea MD Work Phone: 6(764)634-048669 [place] [address] 03-24-2025 14:32-0400 Body temperature 97.8 [degF] Dr. Christy Perea MD Work Phone: 9(075)009-960569 [place] [address] 03-24-2025 14:32-0400 Diastolic blood pressure 72 mm[Hg] Dr. Christy Perea MD Work Phone: 4(786)928-466669 [place] [address] 03-24-2025 14:32-0400 Heart rate 78 /min Dr. Christy Perea MD Work Phone: 1(430)397-530469 [place] [address] 03-24-2025 14:32-0400 Inhaled oxygen flow rate 4 L/min Dr. Christy Perea MD Work Phone: 8(771)375-893569 [place] [address] 03-24-2025 14:32-0400 Respiratory rate 20 /min Dr. Christy Perea MD Work Phone: 0(398)070-281269 [place] [address] 03-24-2025 14:32-0400 SaO2% (BldA) [Mass fraction] 98 % Dr. Christy Perea MD Work Phone: 8(097)336-268069 [place] [address] 03-24-2025 14:32-0400 Systolic blood pressure 136 mm[Hg] Dr. Christy Perea MD Work Phone: 9(867)901-633169 [place] [address] 03-24-2025 04:43-0400 Body mass index (BMI) [Ratio] 46.5 kg/m2 Dr. Christy Perea MD Work Phone: 6(853)251-251869 [place] [address] 03-24-2025 04:43-0400 Body weight 115.[address] Christy Perea MD Work Phone: 8(795)581-026469 [place] [address] 03-20-2025 12:54-0400 Body height 157.[address] Christy Perea MD Work Phone: 8(303)295-387969 [place] [address] 10-28-2024 08:50-0500 Body height 157.[address] Christy Perea MD Work Phone: 4(421)619-447169 [place] [address] 10-28-2024 08:50-0500 Body mass index (BMI) [Ratio] 43.3 kg/m2 Dr. Christy Perea MD Work Phone: 2(476)221-157869 [place] [address] 10-28-2024 08:50-0500 Body weight 107.[address] Christy Perea MD Work Phone: [facility] 10-28-2024 08:50-0500 Diastolic blood pressure 61 mm[Hg] Dr. Christy Perea MD Work Phone: [facility] 10-28-2024 08:50-0500 Heart rate 68 /min Dr. Christy Perea MD Work Phone: [facility] 10-28-2024 08:50-0500 Respiratory rate 20 /min Dr. Christy Perea MD Work Phone: [facility] 10-28-2024 08:50-0500 Systolic blood pressure 117 mm[Hg] Dr. Christy Perea MD Work Phone: [facility] 02-25-2024 00:20-0400 Body mass index (BMI) [Ratio] 40.8 kg/m2 Dr. Christy Perea Work Phone: [facility] 02-25-2024 00:20-0400 Body weight 101.[address] Christy Perea Work Phone: [facility] 02-19-2024 10:25-0400 Body height 157.[address] Christy Perea Work Phone: [facility] 02-19-2024 10:25-0400 Body mass index (BMI) [Ratio] 40.6 kg/m2 Dr. Christy Perea Work Phone: [facility] 02-19-2024 10:25-0400 Body weight 100.[address] Christy Perea Work Phone: [facility] 02-19-2024 10:25-0400 Diastolic blood pressure 93 mm[Hg] Dr. Christy Perea Work Phone: [facility] 02-19-2024 10:25-0400 Heart rate 101 /min Dr. Christy Perae Work Phone: [facility] 02-19-2024 10:25-0400 Respiratory rate 18 /min Dr. Christy Perea Work Phone: [facility] 02-19-2024 10:25-0400 Systolic blood pressure 157 mm[Hg] Dr. Christy Perea Work Phone: [facility] 01-25-2024 00:24-0500 Body mass index (BMI) [Ratio] 40.8 kg/m2 Dr. Christy Perea Work Phone: [facility] 01-25-2024 00:24-0500 Body weight 101.[address] Christy Perea Work Phone: [facility] 01-21-2024 17:17-0500 Body temperature 98 [degF] Dr. Christy Perea Work Phone: [facility] 01-21-2024 17:17-0500 Diastolic blood pressure 71 mm[Hg] Dr. Christy Perea Work Phone: 8(055)249-493839 [place] [address] 01-21-2024 17:17-0500 Heart rate 72 /min Dr. Christy Perea Work Phone: [facility] 01-21-2024 17:17-0500 Respiratory rate 12 /min Dr. Christy Perea Work Phone: [facility] 01-21-2024 17:17-0500 SaO2% (BldA) [Mass fraction] 98 % Dr. Christy Perea Work Phone: [facility] 01-21-2024 17:17-0500 Systolic blood pressure 148 mm[Hg] Dr. Christy Perea Work Phone: [facility] 01-21-2024 14:56-0500 Body mass index (BMI) [Ratio] 41 kg/m2 Dr. Christy Perea Work Phone: [facility] 01-21-2024 14:56-0500 Body weight 101.[address] Christy Perea Work Phone: [facility] 01-21-2024 14:01-0500 Inhaled oxygen flow rate 5 L/min Dr. Christy Perea Work Phone: [facility] 01-21-2024 13:38-0500 Body height 157.[address] Christy Perea Work Phone: [facility] 01-14-2024 10:08-0500 Body mass index (BMI) [Ratio] 40.8 kg/m2 Dr. Christy Perea Work Phone: [facility] 01-14-2024 10:08-0500 Body weight 101.[address] Christy Perea Work Phone: [facility] 12-18-2023 08:44-0500 Body mass index (BMI) [Ratio] 39.6 kg/m2 [facility] 12-03-2023 18:52-0500 Body mass index (BMI) [Ratio] 39.6 kg/m2 [facility] 11-15-2023 06:43-0500 Body height 157.48 cm [facility] 11-15-2023 06:43-0500 Body mass index (BMI) [Ratio] 39.6 kg/m2 [facility] 11-15-2023 06:43-0500 Body weight 98.42 kg [facility] 11-14-2023 14:51-0500 Diastolic blood pressure 84 mm[Hg] [facility] 11-14-2023 14:51-0500 Systolic blood pressure 160 mm[Hg] [facility] 11-14-2023 14:47-0500 Heart rate 83 /min [facility] 11-14-2023 14:47-0500 SaO2% (BldA) [Mass fraction] 89 % [facility] 07-10-2023 13:27-0400 Inhaled oxygen flow rate 2 L/min Dr. Christy Perea Work Phone: [facility] 07-10-2023 13:25-0400 Body temperature 98.2 [degF] Dr. Christy Perea Work Phone: [facility] 07-10-2023 13:25-0400 Diastolic blood pressure 60 mm[Hg] Dr. Christy Perea Work Phone: [facility] 07-10-2023 13:25-0400 Heart rate 86 /min Dr. Christy Perea Work Phone: [facility] 07-10-2023 13:25-0400 Respiratory rate 16 /min Dr. Christy Perea Work Phone: [facility] 07-10-2023 13:25-0400 SaO2% (BldA) [Mass fraction] 96 % Dr. Chrsity Perea Work Phone: [facility] 07-10-2023 13:25-0400 Systolic blood pressure 140 mm[Hg] Dr. Christy Perea Work Phone: [facility] 07-08-2023 18:52-0400 Body height 158.[address] Christy Perea Work Phone: [facility] 07-08-2023 18:52-0400 Body mass index (BMI) [Ratio] 39.9 kg/m2 Dr. Christy Perea Work Phone: [facility] 07-08-2023 18:52-0400 Body weight 100.[address] Christy Perea Work Phone: [facility] 09-28-2022 12:37-0400 Body height 160.02 cm [facility] Work Phone: 07-19-2022 16:04-0400 Body height 157.5 cm Pulm Rm Work Phone: [facility] 07-19-2022 16:04-0400 Body weight 88.2 kg Pulm Rm Work Phone: [facility] 03-31-2022 13:38-0400 Body temperature 97.4 [degF] Dr. Christy Perea Work Phone: [facility] Work Phone: 03-31-2022 13:38-0400 Diastolic blood pressure 74 mm[Hg] Dr. Christy Perea Work Phone: [facility] Work Phone: 03-31-2022 13:38-0400 Heart rate 106 /min Dr. Christy Perea Work Phone: [facility] Work Phone: 03-31-2022 13:38-0400 Respiratory rate 16 /min Dr. Christy Perea Work Phone: [facility] Work Phone: 03-31-2022 13:38-0400 SaO2% (BldA) [Mass fraction] 91 % Dr. Christy Perea Work Phone: [facility] Work Phone: 03-31-2022 13:38-0400 Systolic blood pressure 152 mm[Hg] Dr. Christy Perea Work Phone: [facility] Work Phone: Encounters Encounter Date Encounter Type Care Provider Facility Start: 05-04-2025 ambulatory [facility] Facility:[facility] Start: 04-30-2025 End: 04-30-2025 Dr. Chandni Courtney MD -[place] [facility] Work Phone: Start: 04-30-2025 End: 04-30-2025 ambulatory Chandni [facility] Facility:[facility] Start: 04-30-2025 Dr. Mitchell florian MD -Pulmonary Services/Neurology Work Phone: Start: 04-30-2025 ambulatory Mitchell Chavez ty:[facility] Start: 04-21-2025 End: 04-21-[address] Christy Perea MD Work Phone: [facility] Work Phone: Start: 04-21-2025 End: 04-21-2025 Patient encounter procedure Becca Dillard [employer] -Laboratory Work Phone: Start: 04-21-2025 End: 04-21-2025 Becca Dillard [employer] -Laboratory Work Phone: Start: 04-21-2025 End: 04-21-2025 ambulatory Becca Dillard [employer] Facility:[facility] Start: 04-10-2025 Non-patient / Non-visit Dr. Lindsay Galvan MD [facility] Work Phone: Start: 04-10-2025 Dr. Geoff Galvan MD -[place] [facility] Work Phone: Start: 04-09-2025 Non-patient / Non-visit Dr. Ken Vieyra MD [facility] Work Phone: Start: 04-09-2025 Dr. Ken Vieyra MD [facility] Work Phone: Start: 04-08-2025 Non-patient / Non-visit Dr. Ken Vieyra MD [facility] Work Phone: Start: 04-08[facility]: Start: 04-07-2025 Non-patient / Non-visit Dr. Ken Vieyra MD [facility] Work Phone: Start: 04-07-2025 Dr. Ken Vieyra MD [facility] Work Phone: Start: 04-06-2025 Non-patient / Non-visit Dr. Ken Vieyra MD -[place] [facility] Work Phone: Start: 04-06-20[facility] Work [facility]: Start: 04-05-2025 ambulatory Ken Vieyra Facility: [facility] Start: 04-05-2025 End: 04-10-2025 Dr. Gefof Galvan MD -Progressive Care Unit Work Phone: Start: 04-05-2025 End: 04-10-2025 Evaluation and management of inpatient Dr. Orlando Bolden DO -Progressive Care Unit Work Phone: Start: 04-03-2025 End: 04-03-[address] Christy Perea MD Work Phone: [facility] Work Phone: Start: 04-03-2025 End: 04-03-2025 Patient encounter procedure Becca Dillard [employer] -Laboratory Work Phone: Start: 04-03-2025 End: 04-03-2025 Becca Dillard [employer] -Laboratory Work Phone: Start: 04-03-2025 End: 04-03-2025 ambulatory [facility] Facility:[facility] Start: 03-31-2025 End: 03-31-[address] Christy Perea MD Work Phone: [facility] Work Phone: Start: 03-31-2025 End: 03-31-[address] Genia Chappell MD -Laboratory, [facility] Start: 03-31-2025 End: 03-31-2025 Dr. Genia Chappell MD -Laboratory [facility] Start: 03-30-2025 End: 03-31-[address] Christy Perea MD Work Phone: [facility] Work Phone: Start: 03-30-2025 End: 03-30-[address] Genia Chappell MD -Radiology, [facility] Work Phone: Start: 03-30-2025 End: 03-30-2025 Dr. Genia Chappell MD -Radiology [facility] Work Phone: Start: 03-30-2025 End: 03-30-2025 ambulatory Mitchell Brian Facility:[facility] Start: 03-25-2025 End: 03-25-2025 Dr. Jose Armando Willoughby -Emergency Departmen t Work Phone: Start: 03-25-2025 End: 03-25-2025 Emergency department patient visit Dr. Jose Armando Willoughby -Emergency Department Work Phone: Start: 03-24-2025 Non-patient / Non-visit Dr. Carol Ann Lizarraga MD -[place] [facility] Work Phone: Start: 03-24-2025 Dr. Cindi juarez MD [facility] Work Phone: Start: 03-23-2025 Non-patient / Non-visit Dr. Carol Ann Lizarraga MD -[place] [facility] Work Phone: Start: 03-23-2025 Dr. Cindi juarez MD -[place] [facility] Work Phone: Start: 03-22-2025 Non-patient / Non-visit Dr. Fannie howard [facility] Work Phone: Start: 03-22-2025 Dr. Chai smith [facility] Work Phone: Start: 03-21-2025 Non-patient / Non-visit [facility] Work Phone: Start: 03-21-2025 Dr. Chai smith [facility] Work Phone: Start: 03-20-2025 Non-patient / Non-visit Dr. Fannie howard [facility] Work Phone: Start: 03-20-2025 Dr. Chai smith [facility] Work Phone: Start: 03-20-2025 ambulatory Chandni Courtney Facility:[facility] Start: 03-20-2025 Non-patient / Non-visit Dr. Chandni solitario MD -[facility] Start: 03-20-2025 Dr. Chandni Courtney MD [facility] Start: 03-19-2025 ambulatory Orlando Hatcho Facili ty:[facility] Start: 03-19-2025 End: 03-24-2025 Evaluation and management of inpatient Dr. Cindi Lizarraga MD -Progressive Care Unit Work Phone: Start: 03-19-2025 End: 03-24-2025 Dr. Cindi Lizarraga MD -Progressive Care Unit Work Phone: Start: 03-18-2025 End: 03-18-2025 Patient encounter procedure Becca Dillard [employer] -Laboratory Work Phone: Start: 03-18-2025 End: 03-18-2025 Becca Dillard [employer] -Laboratory Work Phone: Start: 03-18-2025 End: 03-18-2025 ambulatory Becca Dillard [employer] Facility:[facility] Start: 02-05-2025 End: 02-05-[address] Christy Perea MD Work Phone: [facility] Work Phone: Start: 02-05-2025 End: 02-05-[address] Christy Perea MD -Laboratory, [facility] Start: 02-05-2025 End: 02-05-2025 Dr. Christy Perea MD -Laboratory [facility] Start: 02-05-2025 End: 02-05-2025 ambulatory Christy Perea Facility:[facility] Start: 12-25-2024 End: 12-25-2024 Patient encounter procedure Azael Ashton [employer] -Laboratory, Specimen Work Phone: Start: 12-25-2024 End: 12-25-2024 ambulatory Azael Kareemdonna [employer] Facility:[facility] Start: 12-04-2024 End: 12-04-[address] Brennan Ansari MD -[facility] Start: 12-04-2024 End: 12-04-2024 ambulatory Christy Perea Facility:[facility] Start: 11-05-2024 End: 11-05-2024 ambulatory Christy Perea Facility:[facility] Start: 11-05-2024 End: 11-05-[address] Curry Taylor MD -Physical Therapy Work Phone: Start: 10-28-2024 End: 10-28-[address] Chandni Courtney MD -[facility] Work Phone: Start: 10-28-2024 End: 10-28-2024 ambulatory Chandni Courtney Facility:[facility] Start: 10-01-2024 End: 10-02-2024 ambulatory Christy Devineiff Facility:[facility] Start: 09-30-2024 End: 09-30-2024 ambulatory Christy S Sybiliff Facility:[facility] Start: 09-08-2024 End: 09-08-2024 ambulatory Mitchell Brian Facility:[facility] Start: 09-01-2024 End: 09-01-2024 ambulatory Christy S Sybiliff Facility:[facility] Start: 08-18-2024 End: 08-19-2024 ambulatory Christy S Cheryleduardaiff Facility:[facility] Start: 08-17-2024 End: 08-17-2024 Emergency department patient visit Christy Jose Sybiliff Facility:[facility] Start: 05-16-2024 End: 05-16-2024 ambulatory Chandni Sherwin Facility:[facility] Start: 05-07-2024 End: 05-07-2024 ambulatory Chandni Sherwin Facility:[facility] Start: 03-31-2024 Non-patient / Non-visit Dr. Carol Perea Work Phone: [facility] Start: 03-28-2024 End: 03-28-[address] Christy Perea Work Phone: [facility] Work Phone: Start: 03-28-2024 End: 03-28-[address] Christy Perea Work Phone: [facility]-Laboratory Work Phone: Start: 03-21-2024 End: 03-25-[address] Christy Perea Work Phone: [facility] Work Phone: Start: 03-21-2024 End: 03-25-[address] Christy Perea Work Phone: [facility]-Pulmonary Rehab Work Phone: Start: 03-21-[address] Christy castro Work Phone: [facility]-Pulmonary Rehab Work Phone: Start: 03-20-2024 Non-patient / Non-visit Dr. Carol Perea Work Phone: [facility] Start: 03-20-2024 End: 03-20-[address] Christy Perea Work Phone: [facility] Work Phone: Start: 03-20-2024 End: 03-20-[address] Christy Perea Work Phone: [facility]-Cardiovascula r Services Work Phone: Start: 02-22-2024 End: 02-24-[address] Christy Perea Work Phone: [facility] Work Phone: Start: 02-22-2024 End: 02-24-[address] Christy Perea Work Phone: [facility]-Pulmonary Rehab Work Phone: Start: 02-19-2024 End: 02-19-[address] Christy Perea Work Phone: [facility] Work Phone: Start: 01-23-2024 End: 01-24-[address] Christy Perea Work Phone: [facility] Work Phone: Start: 01-23-2024 End: 01-24-[address] Christy Perea Work Phone: [facility]-Pulmonary Rehab Work Phone: Start: 01-21-2024 End: 01-21-2024 Emergency department patient visit Dr. Christy Perea Work Phone: [facility]-Emergency Department Work Phone: Start: 12-26-2023 End: 12-26-2023 ambulatory [facility] Work Phone: Start: 12-26-2023 End: 12-26-2023 Discharged Recurring [facility]-Pulmonary Rehab Work Phone: Start: 12-17-2023 Registered Recurring [facility]-Pulmonary Rehab Work Phone: Start: 12-12-2023 End: 12-12-2023 ambulatory [facility] Work Phone: Start: 12-12-2023 End: 12-12-2023 Patient encounter procedure [facility]-Radiology, [facility] Work Phone: Start: 12-03-2023 Registered Recurring [facility]-Pulmonary Rehab Work Phone: Start: 11-29-2023 End: 11-29-2023 ambulatory [facility] Work Phone: Start: 11-29-2023 End: 11-29-2023 [facility] Work Phone: Start: 11-15-2023 Non-patient / Non-visit Dr. Carol Perea Work Phone: [facility] Work Phone: Start: 11-14-2023 End: 11-14-2023 ambulatory [facility] Work Phone: Start: 11-14-2023 End: 11-14-2023 Patient encounter procedure [facility]-Pulmonary Rehab Work Phone: Start: 10-01-2023 End: 10-01-2023 Patient encounter procedure [facility]-Outpatient Breast Imaging Work Phone: Start: 09-06-2023 End: 09-06-[address] Christy Perea Work Phone: [facility] Work Phone: Start: 09-06-2023 End: 09-06-[address] Christy Perea Work Phone: [facility]-Cat Scan, [facility] Work Phone: Start: 07-10-2023 Non-patient / Non-visit Dr. Carol Perea Work Phone: [facility] Work Phone: Start: 07-09-2023 Non-patient / Non-visit Dr. Carol Perea Work Phone: [facility] Work Phone: Start: 07-08-2023 Non-patient / Non-visit Dr. Carol Perea Work Phone: [facility] Work Phone: Start: 07-08-2023 End: 07-10-2023 Evaluation and management of inpatient Dr. Christy Perea Work Phone: [facility]-Medical Surgical 3 Work Phone: Start: 09-28-2022 End: 09-28-2022 ambulatory [facility] Work Phone: Start: 09-28-2022 End: 09-28-2022 Patient encounter procedure [facility]-Outpatient Bone Densitometry Start: 07-20-2022 Telephone encounter Stephany Lind RN Pulmonary Medicine Comment on above: Chief Technician X Ray - O ther Start: 07-19-2022 ambulatory Lorne saenz MD Work Phone: Pulmonary Medicine Start: 07-19-2022 End: 07-19-2022 Patient encounter procedure Pulm Main [id number] Procedure Rm Work Phone: Pulmonary Medicine Comment on above: Stage 3 severe COPD by GOLD classification (HCC) (Primary Dx) Start: 07-11-2022 Telephone encounter Orlando [facility] Medicine Comment on above: Appointment Confirma tion Start: 06-30-2022 End: 06-30-2022 ambulatory Lorne Newell MD Work Phone: Pulmonary Medicine Comment on above: Stage 3 severe COPD by GOLD classification (HCC); Abnormal echocardiogram Start: 06-30-2022 End: 06-30-2022 Telemedicine consultation with patient Lorne Newell MD Work Phone: [facility] Start: 06-27-2022 Chart abstracting Naa Croft APRN.CHARGE AUDITOR Work Phone: Pulmonary Medicine Comment on above: Abstract Start: 06-05-2022 ambulatory Orlando Simpson MA Pulmonary Medicine Comment on above: [facility] 07/19 at 4pm Start: 06-05-2022 E-mail encounter fro m caregiver Orlando Simpson MA [facility] Start: 06-05-2022 Telephone encounter Orlando Simpson MA Pu lmonary Medicine Comment on above: Care Coordination Start: 06-02-2022 Telephone encounter Orlando Simpson MA Pu lmonary Medicine Comment on above: Care Coordination Start: 05-19-2022 Orders Only Rachel Seaman GUIDE VISITOR.BOTTLE PACKER Work Phone: Pulmonary Medicine Comment on above: Other secondary pulm onary hypertension (HCC) Start: 05-18-2022 Telephone encounter Lorne Newell MD Work Phone: Pulmonary Medicine Comment on above: Request Outside [facility] Records Start: 03-31-2022 End: 03-31-[address] Christy Perea Work Phone: [facility] Start: 03-30-2022 Non-patient / Non-visit Dr. Carol Perea Work Phone: [facility] Start: 03-30-2022 End: 03-30-[address] Christy Perea Work Phone: [facility] Procedures Date Procedure Procedure Detail Performing Clinician Start: 04-30-2025 Carbon dioxide measu rement, partial pressure Dr. Christy Perea MD Work Phone: Start: 04-30-2025 Gases blood o2 satur ation only direct diallo Dr. Christy Perea MD Work Phone: Start: 04-30-2025 Measurement of parti al pressure of oxygen in blood Dr. Christy Perea MD Work Phone: Start: 04-30-[address] Christy Perea MD Work Phone: Start: 04-21-2025 Blood count smear mc rscp w/mnl difrntl wbc count Dr. Christy Perea MD Work Phone: Start: 04-21-2025 Mean corpuscular hem oglobin concentration determination Dr. Christy Perea MD Work Phone: Start: 04-21-2025 Nucleated red blood cell count procedure Dr. Christy Perea MD Work Phone: Start: 04-21-2025 Platelet mean volume determination Dr. Christy Perea MD Work Phone: Start: 04-10-2025 Blood count smear mc rscp w/mnl difrntl wbc count Dr. Christy Perea MD Work Phone: Start: 04-10-[address] Christy Perea MD Work Phone: Start: 04-10-2025 Mean corpuscular hem oglobin concentration determination Dr. Chrisyt Perea MD Work Phone: Start: 04-10-2025 Nucleated red blood cell count procedure Dr. Christy Perea MD Work Phone: Start: 04-10-2025 Platelet mean volume determination Dr. Christy Perea MD Work Phone: Start: 04-08-[address] Christy Perea MD Work Phone: Start: 04-08-2025 Serum inorganic phos phate measurement Dr. Christy Perea MD Work Phone: Start: 04-07-2025 Serum inorganic phos phate measurement Dr. Christy Perea MD Work Phone: Start: 04-06-[address] Christy Perea MD Work Phone: Start: 04-06-[address] Carol Perea MD Work Phone: Start: 04-06-2025 Carbon [...] Christy Perea MD Work Phone: Start: 04-06-[address] Christy Perea MD Work Phone: Start: 04-06-2025 Total cholesterol:HD L ratio measurement Dr. Christy Perea MD Work Phone: Start: 04-05-2025 CT of chest, abdomen and pelvis without contrast Dr. Christy Perea MD Work Phone: Start: 04-05-2025 Plain chest X-ray Dr. Ana Perea MD Work Phone: Start: 04-05-[address] Christy Perea MD Work Phone: Start: 04-05-[address] Christy castro MD Work Phone: Start: 03-31-2025 Calculation of international normalized ratio Dr. Christy Perea MD Work Phone: Start: 03-30-2025 X-ray of chest, PA a nd lateral views Dr. Christy Perea MD Work Phone: Start: 03-25-2025 Plain chest X-ray Dr. Ana Perea MD Work Phone: Start: 03-25-2025 Blood count smear mc rscp w/mnl difrntl wbc count Dr. Christy Perea MD Work Phone: Start: 03-25-[address] Christy Perea MD Work Phone: Start: 03-25-2025 Mean corpuscular hem oglobin concentration determination Dr. Christy Perea MD Work Phone: Start: 03-25-2025 Nucleated red blood cell count procedure Dr. Christy Perea MD Work Phone: Start: 03-25-2025 Platelet mean volume determination Dr. Christy Perea MD Work Phone: Start: 03-24-2025 Blood count smear rscp w/mnl difrntl wbc count Dr. Christy Perea MD Work Phone: Start: 03-24-[address] Christy Perea MD Work Phone: Start: 03-24-2025 Mean corpuscular hem oglobin concentration determination Dr. Christy Perea MD Work Phone: Start: 03-24-2025 Nucleated red blood cell count procedure Dr. Christy Perea MD Work Phone: Start: 03-24-2025 Platelet mean volume determination Dr. Christy Perea MD Work Phone: Start: 03-23-2025 Gram stain microscopy D jatinder Perea MD Work Phone: Start: 03-23-2025 Respiratory microbia l culture Dr. Christy Perea MD Work Phone: Start: 03-21-2025 Serum inorganic phos phate measurement Dr. Christy Perea MD Work Phone: Start: 03-20-[address] Christy Perea MD Work Phone: Start: 03-20-2025 Total cholesterol:HD L ratio measurement Dr. Christy Perea MD Work Phone: Start: 03-19-2025 Plain chest X-ray Dr. Ana Perea MD Work Phone: Start: 03-18-[address] Christy Perea MD Work Phone: Start: 03-18-2025 Total cholesterol:HD L ratio measurement Dr. Christy Perea MD Work Phone: Start: 02-05-2025 Blood count smear rscp w/mnl difrntl wbc count Dr. Christy Perea MD Work Phone: Start: 02-05-2025 Mean corpuscular hem oglobin concentration determination Dr. Christy Perea MD Work Phone: Start: 02-05-2025 Nucleated red blood cell count procedure Dr. Christy Perea MD Work Phone: Start: 02-05-2025 Platelet mean volume determination Dr. Christy Perea MD Work Phone: Start: 12-25-2024 Urine [...] Treatment Date Care Activity Detail Author Start: 04-30-2025 [facility] Start: 04-10-2025 Patient discharge [facility] Start: 04-09-2025 Provision of activit y privileges [facility] Start: 04-08-2025 Referral to service [facility] Start: 04-07-2025 [facility] Start: 04-06-2025 End: 04-07-2025 [facility] Start: 04-06-2025 Care regimes management [facility] Start: 04-06-2025 Notification of physician [facility] Start: 04-06-2025 Consultation [facility] Start: 04-06-2025 Continuous pulse oximetry [facility] Start: 04-06-2025 Following clinical pathway protocol [facility] Start: 04-06-2025 Assessment of risk o f venous thromboembolism [facility] Start: 04-06-2025 Catheterization of vein [facility] Start: 04-06-2025 Insertion of cathete r into peripheral vein [facility] Start: 04-06-2025 Measuring intake and output [facility] Start: 04-06-2025 Oxygen therapy [facility] Start: 04-06-2025 Patient referral to dietitian [facility] Start: 04-06-2025 Providing care accor ding to standard [facility] Start: 04-06-2025 Provision of activit y privileges [facility] Start: 04-06-2025 Referral to occupati onal therapist [facility] Start: 04-06-2025 Referral to service [facility] Start: 04-06-2025 [facility] Start: 04-06-2025 Dual pressure sponta neous ventilation support [facility] Start: 04-06-2025 Inhalation therapy procedure [facility] Start: 04-05-2025 Verification routine [facility] Start: 04-05-2025 Admission procedure [facility] Start: 04-05-2025 CT of chest, abdomen and pelvis without contrast CT Chest, Abd, Pelvis [facility] Start: 04-05-2025 Hospital admission, emergency, from emergency room, medical nature [facility] Start: 04-05-2025 [facility] Start: 04-05-2025 End: 04-06-2025 [facility] Start: 04-05-2025 Bacteria identified in Blood by Culture Blood Culture [facility] Start: 04-05-2025 Blood culture Blood Culture [facility] Start: 04-05-2025 Continuous positive airway pressure ventilation treatment [facility] Start: 03-25-2025 [facility] Start: 03-24-2025 Patient discharge [facility] Start: 03-23-2025 Respiratory microbia l culture Respiratory Culture [facility] Start: 03-20-2025 Referral to service [facility] Start: 03-20-2025 Inhalation therapy procedure [facility] Start: 03-19-2025 End: 03-20-2025 [facility] Start: 03-19-2025 Following clinical pathway protocol [facility] Start: 03-19-2025 Assessment of risk o f venous thromboembolism [facility] Start: 03-19-2025 Catheterization of vein [facility] Start: 03-19-2025 Continuous positive airway pressure ventilation treatment [facility] Start: 03-19-2025 Insertion of cathete r into peripheral vein [facility] Start: 03-19-2025 Measuring intake and output [facility] Start: 03-19-2025 Oxygen therapy [facility] Start: 03-19-2025 Providing care accor ding to standard [facility] Start: 03-19-2025 Provision of activit y privileges [facility] Start: 03-19-2025 Referral to occupati onal therapist [facility] Start: 03-19-2025 Referral to service [facility] Start: 03-19-2025 Verification routine [facility] Start: 03-19-2025 Admission procedure [facility] Start: 03-19-2025 Patient referral to dietitian [facility] Start: 01-21-2024 [facility] Start: 01-21-2024 [facility] Start: 07-10-2023 Patient discharge [facility] Start: 07-08-2023 End: 07-09-2023 [facility] Start: 07-08-2023 Ambulation without limitation [facility] Start: 07-08-2023 Assessment of risk o f venous thromboembolism [facility] Start: 07-08-2023 Incentive spirometry [facility] Start: 07-08-2023 Inhalation therapy procedure [facility] Start: 07-08-2023 Insertion of cathete r into peripheral vein [facility] Start: 07-08-2023 Providing care accor ding to standard [facility] Start: 07-08-2023 Oxygen therapy [facility] Start: 07-08-2023 Following clinical pathway protocol [facility] Start: 07-08-2023 Verification routine [facility] Start: 07-08-2023 Admission procedure [facility] Start: 07-08-2023 Respiratory microbia l culture Respiratory Culture [facility] Start: 07-27-2022 Influenza vaccination INFLUENZA (#1) [facility] Start: 11-26-2021 ADVANCE DIRECTIVE DISCUSSION ADVANCE DIRECTIVE DISCUSSION [facility] Start: 2018 BONE DENSITY BONE DENSITY [facility] Start: 2018 PNEUMOCOCCAL: 65+ (1 - PCV) PNEUMOCOCCAL: 65+ (1 - PCV) [facility] Start: 2003 Influenza vaccination LUNG CANCER SC REENING [facility] Start: 2003 SHINGRIX VACCINE (1 of 2) GRIFFIN GRIX VACCINE (1 of 2) [facility] Start: 1998 COLOGUARD (FIT-DNA) COLOGUARD (FIT-D NA) [facility] Start: 1998 Colonoscopy COLONOSCOPY [facility] Start: 1998 COLORECTAL CANCER SCREENING COLORECTAL CANCER SCREENING [facility] Start: [address] COLONOGRAPHY [facility] Start: 1998 DIABETES SCREEN DIABETES SCREEN [facility] Start: 1998 FECAL OCCULT BLOOD FECAL OCCULT BLOO D [facility] Start: 1998 LIPID SCREEN LIPID SCREEN [facility] Start: 1998 SIGMOIDOSCOPY SIGMOIDOSCOPY [facility] Start: 1993 Mammography MAMMOGRAM [facility] Start: 1983 Zoledronic acid therapy ALPHA- 1 ANTITRYPSIN DEFICIENCY SCREENING [facility] Start: 1972 Urine microalbumin profile DTAP,TDAP,TD (1 - Tdap) [facility] Start: 1971 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 DISEASE VISIT ANNUAL PCP TEAM CHRONIC DISEASE VISIT [facility] Start: 1971 HEPATITIS C SCREENING HEPATITIS C SC PAMNING [facility] Start: 1971 SPIROMETRY SPIROMETRY [facility] Start: 1965 Adult depression screening assessment DEPRESSION SCREENING [facility] Start: 1959 PNEUMOCOCCAL: 65+ (1 - PCV) PNEUMOCOCCAL: 65+ (1 - PCV) [facility] Start: 02-09-1954 COVID-19 VACCINE (#1) COVID-19 VACCI NE (#1) [facility] Anion gap in Serum o r Plasma [facility] BUN/Creatinine ratio [facility] Calcium [Mass/volume ] in Serum or Plasma [facility] Carbon dioxide, tota l [Moles/volume] in Central venous blood [facility] Creatinine [Mass/vol ume] in Serum or Plasma [facility] Erythrocyte mean corpuscular volume determination [facility] Erythrocyte mean corpuscular volume determination [facility] Erythrocyte mean corpuscular volume determination [facility] Erythrocyte mean corpuscular volume determination [facility] Glucose [Mass/volume ] in Serum or Plasma [facility] Hematocrit [Volume Fraction] of Blood [facility] Hematocrit [Volume Fraction] of Blood [facility] Hematocrit [Volume Fraction] of Blood [facility] Hematocrit [Volume Fraction] of Blood [facility] Hemoglobin [Mass/vol ume] in Blood [facility] Hemoglobin [Mass/vol ume] in Blood [facility] Hemoglobin [Mass/vol ume] in Blood [facility] Hemoglobin [Mass/vol ume] in Blood [facility] Leukocytes [#/volume ] in Blood [facility] Leukocytes [#/volume ] in Blood [facility] Leukocytes [#/volume ] in Blood [facility] Leukocytes [#/volume ] in Blood [facility] Magnesium measurement [facility] Mean corpuscular hemoglobin concentration determination [facility] Mean corpuscular hemoglobin concentration determination [facility] Mean corpuscular hemoglobin concentration determination [facility] Mean corpuscular hemoglobin concentration determination [facility] Mean corpuscular hemoglobin determination [facility] Mean corpuscular hemoglobin determination [facility] Mean corpuscular hemoglobin determination [facility] Mean corpuscular hemoglobin determination [facility] Measurement of renal function [facility] Neutrophil count [facility] Neutrophil count [facility] Neutrophil count [facility] Neutrophil count [facility] Neutrophil percent differential count [facility] Neutrophil percent differential count [facility] Neutrophil percent differential count [facility] Neutrophil percent differential count [facility] NM Heart Views W str ess and W radionuclide IV [facility] Patient Education [facility] Work Phone: Patient referral [facility] Work Phone: Platelets [#/volume] in Blood [facility] Platelets [#/volume] in Blood [facility] Platelets [#/volume] in Blood [facility] Platelets [#/volume] in Blood [facility] Potassium measurement [facility] End: 06-18-2023 Pulmonary ventilation & perfusion imaging NM LUNG VENT / PERF VQ Radiology Routine Other secondary pulmonary hypertension (HCC) 1 Occurrences starting 05/19/2022 until 06/18/2023 [facility] Work Phone: Comment on above: 1 Occurrences starti ng 05/19/2022 until 06/18/2023 Red blood cell count [facility] Red blood cell count [facility] Red blood cell count [facility] Red blood cell count [facility] Red cell distributio n width determination [facility] Red cell distributio n width determination [facility] Red cell distributio n width determination [facility] Red cell distributio n width determination [facility] Serum chloride measurement [facility] Sodium measurement [facility] Troponin T.cardiac [Mass/volume] in Serum or Plasma by High sensitivity method [facility] Urea nitrogen [Mass/volume] in Serum or Plasma [facility] XR ARTERY CATHETER ( POC) FOR REYNALDO USE ONLY XR ARTERY CATHETER (POC) FOR REYNALDO USE ONLY Imaging Procedures Routine Stage 3 severe COPD by GOLD classification (HCC) Ordered: 07/19/2022 [facility] Work Phone: Comment on above: Ordered: 07/19/2022 [facility] Immunizations Immunization Date Immunization Notes Care Provider Fa cili 01-24-2021 COVID-19 vaccine, fu ll dose (MODERNA) Naa Croft GUIDE VISITOR.CHARGE AUDITOR Work Phone: [facility] 12-27-2020 COVID-19 vaccine, fu ll dose (MODERNA) Naa Croft GUIDE VISITOR.CHARGE AUDITOR Work Phone: [facility] 09-07-2018 tetanus toxoid, redu braeden diphtheria toxoid, and acellular pertussis vaccine, adsorbed Dr. Christy Perea Work Phone: [facility] Payers Date Payer Category Payer Self-pay [id number] 2024 Private Health Insurance 101 [id number] 2021 Medicare AETNA MEDICARE A ETNA MEDICARE PPO [id number] 2021-Present [phone] [address] [place] [address] PPO [id number] 2021 Medicare AETNA MEDICARE A ETNA MEDICARE PPO [id number] 2021-Present [phone] [address] [place] [address] O [id number] Unknown [id number] Unknown [id number] 2.16.840.1.128036.3.579.2.4 62 Unknown [id number] 2.16.840.1.029414.3.579.2.4 62 Unknown [id number] 2.16.840.1.930856.3.579.2.4 62 Unknown [id number] 2.16.840.1.019257.3.579.2.4 62 Unknown [id number] 2.16.840.1.467497.3.579.2.4 62 Unknown [id number] 2.16.840.1.375009.3.579.2.4 62 Unknown [id number] 2.16.840.1.767371.3.579.2.4 62 Unknown [id number] 2.16.840.1.118476.3.579.2.4 62 Unknown [id number] 2.16.840.1.452503.3.579.2.4 62 Unknown [id number] 2.16.840.1.870343.3.579.2.4 62 Unknown [id number] 2.16.840.1.497315.3.579.2.4 62 Unknown [id number] 2.16.840.1.537477.3.579.2.4 62 Unknown [id number] 2.16.840.1.970144.3.579.2.4 62 Unknown [id number] 2.16.840.1.342922.3.579.2.4 62 Unknown [id number] 2.16.840.1.425418.3.579.2.4 62 Unknown [id number] 2.16.840.1.729631.3.579.2.4 62 Unknown [id number] 2.16.840.1.265464.3.579.2.4 62 Unknown [id number] 2.16.840.1.039919.3.579.2.4 62 Unknown [id number] 2.16.840.1.293739.3.579.2.4 62 Unknown [id number] 2.16.840.1.611100.3.579.2.4 62 Unknown [id number] 2.16.840.1.311764.3.579.2.4 62 Unknown [id number] 2.16.840.1.521730.3.579.2.4 62 Unknown [id number] 2.16.840.1.917049.3.579.2.4 62 Unknown [id number] 2.16.840.1.013043.3.579.2.4 62 Unknown [id number] 2.16.840.1.456935.3.579.2.4 62 Unknown [id number] 2.16.840.1.775313.3.579.2.4 62 Unknown [id number] 2.16.840.1.843582.3.579.2.4 62 Unknown [id number] 2.16.840.1.906618.3.579.2.4 62 Unknown [id number] 2.16.840.1.056017.3.579.2.4 62 Unknown [id number] 2.16.840.1.768191.3.579.2.4 62 Unknown [id number] 2.16.840.1.871217.3.579.2.4 62 Unknown [id number] 2.16.840.1.487208.3.579.2.4 62 Unknown [id number] 2.16.840.1.409873.3.579.2.4 62 Unknown [id number] 2.16.840.1.129953.3.579.2.4 62 Unknown [id number] 2.16.840.1.624297.3.579.2.4 62 Unknown [id number] 2.16.840.1.182440.3.579.2.4 62 Unknown [id number] 2.16.840.1.016525.3.579.2.4 62 Unknown [id number] 2.16.840.1.641118.3.579.2.4 62 Unknown [id number] 2.16.840.1.051854.3.579.2.4 62 Unknown [id number] 2.16.840.1.871233.3.579.2.4 62 Unknown [id number] 2.16.840.1.929928.3.579.2.4 62 Social History Date Type Detail Facility Start: 03-31-2022 End: 02-19-2024 Tobacco smoking status MSIS Unknown if ever smoked [facility] Start: 1955 Sex Assigned At Female C [facility] Start: 1955 Sex Assigned At Not on file [facility] Start: 05-21-2022 End: 07-19-2022 Exposure to SARS-CoV-2 (event) Not sure [facility] Start: 05-27-2022 End: 06-06-2022 Exposure to SARS-CoV-2 (event) Unable to assess [facility] Start: 06-30-2022 End: 04-05-2025 Tobacco smoking status MSIS Ex-smoker [facility] Work Phone: End: 06-30-2013 History of tobacco use Current smoker [facility] Work Phone: Start: 06-30-2022 Cigarettes smoked current (pack per day) - Reported 1.5 [facility] Start: 06-30-2022 Alcohol intake Ex-drinker (finding) [facility] End: 06-30-2013 History of tobacco use Cigarette Smoker [facility] Work Phone: Start: 02-16-2025 End: 03-24-2025 Sex Female (finding) [facility] Goals Date Patient Goal Desired Activity /State Functional Status Date Assessment Result Facility 04-10-2025 Functional status Ambulates [facility] Work Phone: 04-08-2025 Functional status Ambulates [facility] Work Phone: 03-24-2025 Functional status Bathroom Privilege [facility] Work Phone: 07-10-2023 Functional status Ambulates [facility] Work Phone: Mental Status Date Assessment Result Facility 04-10-2025 Cognitive function Voice/Name [facility] Work Phone: 04-08-2025 Cognitive function Voice/Name [facility] Work Phone: 03-24-2025 Cognitive function Voice/Name [facility] Work Phone: 01-21-2024 Cognitive function Level Of Cons ciousness Awake;Alert;Appropriate [facility] Work Phone: 07-09-2023 Cognitive function Voice/Name [facility] Work Phone: Clinical Notes 05-18-2022 to 04-30-2025 Note Date & Type Note Facility 04-30-2025 Progress note Note Date/Time April 30, 2025 3:06pm [facility] [address] [place] [address]. [address] [place] [address] OFFICE VISIT Date of Service: 04/30/25 MR#: [id number] Acct: [id number] Name: PIPER CLARK Rep #: [id number] : 1955 Provider: Dr. Heraclio Courtney MD Age/Sex: 69/F Location: [facility] [place] Status: Signed HPI HPI History of Present Illness Details: This lady with history of mild coronary artery disease, advanced COPD on 24-hourambulatory oxygen therapy, moderate to severe pulmonary hypertension, hypertension and obesity is here for follow-up visit. She was recently admittedto the hospital with COPD exacerbation. BNP was also elevated, ruling her in for HFpEF. Patient complains of occasional palpitations. Denies any chest pains. She has chronic shortness of breath with mild to moderate exertion. This remains unchanged. Chronic lower extremity edema. Intake Vital Signs 10/28/24 08:50 06/05/25 12:28 Height 5 ft 2 in 5 ft 2 in Weight: 237 lb BMI 43.3 BP 100/62 Blood Pressure Location Lt brachial Position Sitting Respiration 18 Pulse 70 Pulse Source NIBP Intake Visit Reasons: 6 M FU Before School Babysitter Required: No Accompanied by: Is patient in pain?: No Allergies feathers Allergy (Intermediate, Verified 04/30/25 14:41) Shortness of breath house dust Allergy (Verified 04/30/25 14:41) Unknown mold Allergy (Verified 04/30/25 14:41) Unknown Medications ?Medication ?Instructions ?Recorded ?Confirmed ?Type montelukast 10 mg tablet 10 mg PO QHS allergies 09/0704/30/25 History fluticasone fur. 200 mcg-umeclid 1 inh inhalation BATSHEVA Y SOB 07/08/23 04/30/25 History 62.5 mcg-vilant 25 mcg inhalat.powder (Trelegy Ellipta) rimegepant 75 mg disintegrating 75 mg PO DAILY PRN olesya tamika 07/08/23 04/30/25 History tablet (Nurtec ODT) albuterol sulfate 90 mcg/actuation 2 puff inhalation Q 4H PRN 02/13/24 04/30/25 History aerosol inhaler Shortness Of Breath diltiazem HCl 240 mg capsule,24 240 mg PO DAILY heart rate 02/19/24 04/30/25 History hr,extended release (Tiadylt ER) duloxetine 60 mg capsule,delayed 60 mg PO DAILY mood 1 11/30/23 04/30/25 History release metoprolol tartrate 50 mg tablet 50 mg PO BID blood pr essure #180 10/09/24 04/30/25 Rx tabs apixaban 5 mg tablet (Eliquis) 5 mg PO BID blood thinn er #60 tabs 02/16/25 04/30/25 Rx fluticasone propionate 50 2 spray intranasal QHS nasal 03/19/25 04/30/25 History mcg/actuation nasal spray,suspension (24 Hour Allergy Relief) furosemide 40 mg tablet 40 mg PO BID water pill 02/2504/30/25 History levofloxacin 500 mg tablet 500 mg PO DAILY #7 tabs 04/30/25 Rx potassium chloride 20 mEq 20 meq PO DAILY supplement # 90 tabs 04/24/25 04/30/25 Rx tablet,extended release Ejection fraction %: 65 Have you fallen in the past year?: Yes (left shoulder fracture, tripping over [id number]) [facility] Medical History (Updated 04/30/25 @ 15:[address] Chandni Courtney MD) Morbid obesity with BMI of 45.0-49.9, adult [...] SOB (shortness of breath) Lung disease Arthritis Surgical History Hx of cardiac catheterization (~04/09/24) H/O left cataract extraction H/O right heart catheterization (~07/19/22) Hx of removal of ovary (~1994) History of appendectomy (~1994) Family History Mother CAD (coronary artery disease) Diabetes C. difficile colitis Father CAD (coronary artery disease) Sister CAD (coronary artery disease) Brother , 62 Colon cancer Son , 45 Drug overdose Other Atrial fibrillation CHF (congestive heart failure) Cancer Heart disease Social History Smoking Status: Former smoker alcohol intake: current alcohol intake frequency: holidays/special occasions only substance use type: does not use caffeine: Yes Type: coffee Number of servings: 2 ROS Const Const: Positive for fatigue and weakness; Negative for headache(s) or weight gain ENT ENT: Negative for headache(s), dizziness, Nosebleed/epistaxis or balance problems Cardio Chest Pain: No Palpitations: Yes (with AFIB) Edema: None Muscle aches with walking: None Resp Respiratory: Positive for SOB with activity and SOB at rest; Negative for SOB orthopneaundefinedSOB lying down GI GI: Negative nausea, vomiting or heartburn Musc Musc: Negative for muscle aches/ myalgia, muscle weakness, joint pain or balanceproblems Neuro Neuro: Positive for weakness; Negative for dizziness, lightheadedness, near syncope, syncope or headache(s) Endo Endo: Positive for fatigue Cardiology Exam Const Appearance: comfortable and no acute distress Nutritional Appearance: obese Neck Neck: no JVD Carotids: Negative bruit Chest Auscultation: Bilateral: Diminished Lung Sounds Cardio Heart sounds: S1 normal and S2 normal GI GI: obese Neuro General: patient alert, patient awake and patient oriented x3 Extremities Lower Extremity Edema: +2: Bilateral Supplemental Info Supplemental Information Echocardiogram 03/19/25: Interpretation Summary The study was technically difficult. The LV systolic function is normal. EF is 65 %. There is Mild focal posterior mitral annular calcification. Right ventricular systolic pressure estimated to be 50 mmHg. Small (<1.0 cm) pericardial effusion. Echocardiogram 02/2024: The study was technically difficult. The left ventricular ejection fraction is 65 %. Right ventricular systolic pressure estimated to be 63 mmHg. ECHOCARDIOGRAM 03/30/22: Interpretation Summary The estimated ejection fraction is 55-60 %. No evidence for diastolic dysfunction. Trivial mitral valve insufficiency. Stress test from 03/20/2024: Impression: 1. Pharmacologic (Regadenoson) evaluation 2. Peak pharmacologic ECG with no ischemic changes. 3. There were no cardiac dysrhythmias pretest, during pharmacologic infusion, or recovery. 5. Mildly reduced perfusion of the apex and septum post-rest suggestive of mildischemia. 6. The gated Cardiolite study reports an LVEF of 70%. CARDIAC CATHETERIZATION 04/09/24: CONCLUSIONS 40% Mid LAD, 30% Mid RCA RECOMMENDATIONS Risk factor modification CORONARY ANGIOGRAPHY DOMINANCE: Right Dominant LEFT MAIN: Angiographically normal LEFT ANTERIOR DESCENDING ARTERY: LAD: Tubular 40% Mid lesion in LAD RIGHT CORONARY ARTERY: RCA: Tubular 30% Mid lesion in RCA RIGHT HEART CATHETERIZATION 07/19/22: Summary: Postcapillary PH with preserved cardiac index at rest in supine position. Plan: F/U in the OP clinic. Low salt in the diet. Gentle diuresis. Weight loss. BP control. CT CHEST WITHOUT CONTRAST 03/30/22: FINDINGS: CHEST Stable small benign-appearing bilateral axillary lymph nodes. Hyperinflation. Emphysematous changes. Since prior study, there is evidence of increased interstitial markings with possible nodular density in the right lung apex. Follow-up in 3 months is recommended. Stable scarring in the lingular segment of the left upper lobe. The previously seen 5.6 mm nodule in the lateral aspect of the anterior right lower lobe is not seen at this time. There is no demonstrated pleural abnormality. There are calcifications of the coronary arteries. Normal mediastinum. Normal hilar regions. Normal unenhanced pulmonary arteries. There is atherosclerotic calcification of the aortic arch. There are multi-level degenerative changes of the thoracic spine. There is no demonstrated abnormality of the visualized upper abdomen. IMPRESSION: Progressive increased interstitial markings in the right upper lobe. Follow-up in [address] LUNG 09/06/23: FINDINGS: LUNGS, PLEURA AND LARGE AIRWAYS: No consolidation or edema. No pulmonary nodule. No pleural effusion. No pneumothorax. Centrilobular emphysematous changes of the lungs. THYROID: Unremarkable. HEART AND PERICARDIUM: Coronary artery calcifications are present. No pericardial effusion. MEDIASTINUM AND TAYLOR: No mediastinal or hilar adenopathy. Esophagus is unremarkable. No hiatal hernia. VESSELS: No thoracic aortic aneurysm. UPPER ABDOMEN: The visualized upper abdomen is unremarkable. BONES: No acute abnormality. IMPRESSION: No pulmonary nodules. Lung-RADS Category 1 (negative, <1% chance of malignancy). Recommend continuing annual screening with low-dose CT. Assessment and Plan Assessment and Plan (1) Atrial fibrillation: Status: Chronic Qualifiers: Atrial fibrillation type: unspecified chronic Qualified Code(s): I48.20- Chronic atrial fibrillation, unspecified Plan: Continue apixaban. Metoprolol for rate control. DC diltiazem as it may be causing or contributing to her lower extremity edema. Start on digoxin. (2) Coronary artery disease: Status: Chronic Qualifiers: Coronary Disease-Associated Artery/Lesion type: unspecified vessel or lesion type Solomon vs. transplanted heart: [place] heart Associated angina: without angina Qualified Code(s): I25.10 - Atherosclerotic heart disease of [place] coronary artery without angina pectoris Plan: Mild CAD noted on coronary angiography. For risk factor modification. Declines statins or any other cholesterol-lowering medication. (3) (HFpEF) heart failure with preserved ejection fraction: Status: Chronic Plan: Continue furosemide. Add metolazone. SGLT2 inhibitor. As diltiazem may be contributing to or causing her lower extremity edema, DC diltiazem. (4) Hypertension: Status: Chronic Plan: Metoprolol, diuretics. (5) Chronic airway obstruction: Status: Chronic Plan: Severe, advanced. As per pulmonology. (6) Sleep apnea: Status: Chronic Plan: On CPAP. Continue as per pulmonology. (7) Morbid obesity: Status: Chronic Plan: Lose weight. Plan Details Follow Up: 6 Weeks Coding Level of Care Code Off vis,est,level 4 Diagnoses Chronic atrial fibrillation I48.20 Atrial fibrillation type: unspecified chronic Coronary artery disease involving [place] heart without angina pectoris, unspecified vessel or lesion type I25.10 Coronary Disease-Associated Artery/Lesion type: unspecified vessel or lesion type Solomon vs. transplanted heart: [place] heart Associated angina: without angina (HFpEF) heart failure with preserved ejection fraction I50.30 Hypertension I10 Chronic airway obstruction J44.9 Sleep apnea G47.30 Morbid obesity E66.01 Coding Level of Care Code Off vis,est,level 4 Diagnoses Chronic atrial fibrillation I48.20 Atrial fibrillation type: unspecified chronic Coronary artery disease involving [place] heart without angina pectoris, unspecified vessel or lesion type I25.10 Coronary Disease-Associated Artery/Lesion type: unspecified vessel or lesion type Solomon vs. transplanted heart: [place] heart Associated angina: without angina (HFpEF) heart failure with preserved ejection fraction I50.30 Hypertension I10 Chronic airway obstruction J44.9 Sleep apnea G47.30 Morbid obesity E66.01 Clinical Quality Measures Falls Risk Screening/Assistive Devices Have you fallen in the past year?: Yes (left shoulder fracture, tripping over [id number]) Cardiac Ejection fraction %: 65 04/30/25 1506 <Electronically signed by Chandni Courtney MD> Date _ Chandni Courtney MD Cosigner Signature: Date (if applicable) CC: Dr. Genia Chappell MD ~ [facility] Work Phone: [phone]) [phone] [facility]05-16-2025 Discharge summary Author Geoff Galvan [facility] Note Date/Time April 10, 2025 2:54p m [facility] Medical Records Department [address] [place] [address] Instructions for Home/Discharge Instructions 04/10/25 1425 MR#: [id number] Acct: [id number] Name: PIPER CLARK Rep #:[id number] 5 : 1955 69 From: Geoff mora [...] can be placed): Home, Self Care 04/10/25 5184<Electronically signed by Geoff Galvan MD>Geoff Galvan MD CC: Dr. Genia Chappell MD; Dr. Orlando Bolden DO; Dr. Ken Vieyra MD; Dr. Mitchell Brian MD ~ Signed [facility] Work Phone: 1(191) 572-945105-16-2025 Discharge summary [facility] Medical Records Department [address] [place] [address] Instructions for Home/Discharge Instructions 04/10/25 1425 MR#: [id number] Acct: [id number] Name: PIPER CLARK Rep #:[id number] 5 : 1955 69 From: Geoff mora [...] MD; Dr. Mitchell Brian MD ~ Signed [facility]05-15-2025 Progress note Author [facility] Note Date/Time April 09, 2025 2:54p [facility] Medical Records Department [address] [place] [address] Progress Note - Hospitalist 04/09/25 1445 MR#: [id number] Acct: [id number] Name: PIPER CLARK Rep #:[id number] 0 : 1955 69 From: Ken Hughes PCP: Dr. Genia Chappell MD Status:ADM IN Location: [place] [address] Reason for Visit Reason for Visit: Diagnoses [...] Body mass index [BMI] 45.0-49.9, adult (04/05/25) FDC (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 anticoagulants (04/05/25) Objective Data [...] 94.1 H, Lymph % (Auto) 1.8 L, Loup % (Auto) 3.3, Eos % (Auto) 0.0, [...] 46.9 H, Glucose 134 H, Calcium 9.1 05/15/25 08:24: POC Glucose 157 H 04/09/25 11:33: [...] every 8 hourly 04/09: Discussed with the erp manager Dr. Mitchell Brian. Currently on BiPAP 18/12 at night. Wanted BiPAP at home with discharge setting 18 at 5 L with hospital bed. Possible [...] 21:20 IMPRESSION: No Acute Findings. Reading Location: [facility] Chest/Abdomen/Pelvis CT 04/05/25 23:58 IMPRESSION: Pericardial effusion is present measuring around 1.4 cm axial 88, clinically correlate. Small posterior layering left pleural effusion. Bilateral atelectasis without focal consolidation identified. No evidence of acute intra-abdominal process on noncontrast imaging. Diverticulosis without diverticulitis. Reading Location: [id number] Microbiology Past 72 Hours 04/05/25 22:25 Blood [...] 94.1 H, Lymph % (Auto) 1.8 L, Loup % (Auto) 3.3, Eos % (Auto) 0.0, [...] 277 H Charges/Coding Visit Charges Inpatient E&M: 56016 Subs Hosp L2 04/09/25 3164 <Electronically signed by Ken Vieyra MD> Cosigner Signature (if applicable): CC: ~ Signed [facility] Work Phone: 1(837) 839-260405-15-2025 Progress note [facility] Medical Records Department [address] [place] [address] Progress Note - Hospitalist 04/09/25 1445 MR#: [id number] Acct: [id number] Name: PIPER CLARK Rep #:[id number] 0 : 1955 69 From: Ken Hughes PCP: Dr. Genia Chappell MD Status:ADM IN Location: [place] [address] Reason for Visit Reason for Visit: Diagnoses [...] Body mass index [BMI] 45.0-49.9, adult (04/05/25) FDC (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 anticoagulants (04/05/25) Objective Data [...] 94.1 H, Lymph % (Auto) 1.8 L, Loup % (Auto) 3.3, Eos % (Auto) 0.0, [...] every 8 hourly 04/09: Discussed with the erp manager Dr. Mitchell Brian. Currently on BiPAP 18/12 at night. Wanted BiPAP at home with discharge setting 18/12 at 5 L with hospital bed. Possible [...] 21:20 IMPRESSION: No Acute Findings. Reading Location: [facility] Chest/Abdomen/Pelvis CT 04/05/25 23:58 IMPRESSION: Pericardial effusion is present measuring around 1.4 cm axial 88, clinically correlate. Small posterior layering left pleural effusion. Bilateral atelectasis without focal consolidation identified. No evidence of acute intra-abdominal process on noncontrast imaging. Diverticulosis without diverticulitis. Reading Location: [id number] Microbiology Past 72 Hours 04/05/25 22:25 Blood [...] 94.1 H, Lymph % (Auto) 1.8 L, Loup % (Auto) 3.3, Eos % (Auto) 0.0, [...] 277 H Charges/Coding Visit Charges Inpatient E&M: 59049 Subs Hosp L2 04/09/25 1454 Cosigner Signature (if applicable): CC: ~ Signed [facility]05-15-2025 Progress note Author Mitchell Brian [facility] Note Date/Time April 09, 2025 8:18a m [facility] Medical Records Department [address] [place] [address] Progress Note 04/09/25 0808 MR#: [id number] Acct: [id number] Name: PIPER CLARK Rep #:[id number] 1 : 1955 69 From: Mitchell norton MD PCP: Dr. Genia Chappell MD Status:ADM IN Location: [place] [address]- 1 Subjective Subjective Up out of bed [...] (Auto) 94.1 H, Lymph % (Auto) 1.8L, Loup % (Auto) 3.3, Eos % (Auto) 0.0, [...] high flow oxygen at home Currently using 12/11 Tolerates the pressure No aerophagia Slept well last night with BiPAP well D/c settings will be 5 liter, Bipap 12/11 (3) Acute exacerbation of chronic obstructive pulmonary [...] this morning possible d/c tomorrow 04/09/25 0818 <Electronically signed by Mitchell Brian MD> Mitchell Brian MD Cosigner Signature (if applicable): CC: ~ Signed [facility] Work Phone: 1(191) 142-292405-15-2025 Progress note [facility] Medical Records Department [address] [place] [address] Progress Note 04/09/25 0808 MR#: [id number] Acct: [id number] Name: PIPER CLARK Rep #:[id number] 1 : 1955 69 From: Mitchell norton MD PCP: Dr. Genia Chappell MD Status:ADM IN Location: [place] [address]- 1 Subjective Subjective Up out of bed [...] (Auto) 94.1 H, Lymph % (Auto) 1.8L, Loup % (Auto) 3.3, Eos % (Auto) 0.0, [...] Cosigner Signature (if applicable): CC: ~ Signed [facility]05-14-2025 Progress note Author Ken Vieyra [facility] Note Date/Time April 08, 2025 2:03p [facility] Medical Records Department [address] [place] [address] Progress Note - Hospitalist 04/08/2543 MR#: [id number] Acct: [id number] Name: PIPER CLARK Rep #:[id number] 3 : 1955 69 From: Ken Hughes PCP: Dr. Genia Chappell MD Status:ADM IN Location: [place] [address] 1 Reason for Visit Reason for Visit: Diagnoses [...] Body mass index [BMI] 45.0-49.9, adult (04/05/25) FDC (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 anticoagulants (04/05/25) Objective Data [...] 94.1 H, Lymph % (Auto) 1.4 L, Loup % (Auto) 3.3, Eos % (Auto) 0.0, [...] 21:20 IMPRESSION: No Acute Findings. Reading Location: [facility] Chest/Abdomen/Pelvis CT 04/05/25 23:58 IMPRESSION: Pericardial effusion is present measuring around 1.4 cm axial 88, clinically correlate. Small posterior layering left pleural effusion. Bilateral atelectasis without focal consolidation identified. No evidence of acute intra-abdominal process on noncontrast imaging. Diverticulosis without diverticulitis. Reading Location: [id number] Charges/Coding Visit Charges Inpatient E&M: 26125 Subs Hosp L2 04/08/25 1332 <Electronically signed [...] Cosigner Signature (if applicable): cc: ~* Signed [facility] Work Phone: 1(133) 195-802905-14-2025 Progress note [facility] Medical Records Department [address] [place] [address] Progress Note - Hospitalist 04/08/25 0843 MR#: [id number] Acct: [id number] Name: PIPER CLARK Rep #:[id number] 3 : 1955 69 From: Ken Hughes PCP: Dr. Genia Chappell MD Status:ADM IN Location: [place] [address] Reason for Visit Reason for Visit: Diagnoses [...] Body mass index [BMI] 45.0-49.9, adult (04/05/25) FDC (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 anticoagulants (04/05/25) Objective Data [...] 94.1 H, Lymph % (Auto) 1.4 L, Loup % (Auto) 3.3, Eos % (Auto) 0.0, [...] 21:20 IMPRESSION: No Acute Findings. Reading [facility] Chest/Abdomen/Pelvis CT 04/05/25 23:58 IMPRESSION: Pericardial effusion is present measuring around 1.4 cm axial 88, clinically correlate. Small posterior layering left pleural effusion. Bilateral atelectasis without focal consolidation identified. No evidence of acute intra-abdominal process on noncontrast imaging. Diverticulosis without diverticulitis. Reading Location: [id number] Charges/Coding Visit Charges Inpatient E&M: 16185 Subs Hosp L2 04/08/25 1332 Cosigner Signature [...] Cosigner Signature (if applicable): cc: ~* Signed [facility]05-13-2025 Progress note Author Ken Vieyra [facility] Note Date/Time April 07, 2025 3:01p [facility] Medical Records Department [address] [place] [address] Progress Note - Hospitalist 04/06/25 0842 MR#: [id number] Acct: [id number] Name: PIPER CLARK Rep #:[id number] 8 : 1955 69 From: Ken Hughes PCP: Dr. 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 Reading Location: [facility] Chest/Abdomen/Pelvis CT 04/05/25 23:58 IMPRESSION: Pericardial effusion is present measuring around 1.4 cm axial 88, clinically correlate. Small posterior layering left pleural effusion. Bilateral atelectasis without focal consolidation identified. No evidence of acute intra-abdominal process on noncontrast imaging. Diverticulosis without diverticulitis. Reading Location: [facility] Rhythm Strip Rhythm Strip: A-fib Rate: 97 [...] 21:20 IMPRESSION: No Acute Findings. Reading Location[facility] Chest/Abdomen/Pelvis CT 04/05/25 23:58 IMPRESSION: Pericardial effusion is present measuring around 1.4 cm axial 88, clinically correlate. Small posterior layering left pleural effusion. Bilateral atelectasis without focal consolidation identified. No evidence of acute intra-abdominal process on noncontrast imaging. Diverticulosis without diverticulitis. Reading Location: [facility] Charges/Coding Visit Charges Inpatient E&M: 74203 Subs Hosp L2 04/06/25 0852 <Electronically signed [...] Cosigner Signature (if applicable): cc: ~* Signed [facility] Work Phone: 1(375) 791-801805-13-2025 Progress note Author Kenelza Vieyra [facility] Note Date/Time April 07, 2025 3:00p [facility] Medical Records Department [address] [place] [address] Progress Note - Hospitalist 04/07/25 1453 MR#: [id number] Acct: [id number] Name: PIPER LCARK Rep #:[id number] 7 : 1955 69 From: Ken Hughes PCP: Dr. Genia Chappell MD Status:ADM IN Location: [place] [address] Reason for Visit Reason for Visit: Diagnoses [...] high flow nasal cannula. On BiPAP 7.4 1/54. Bicarbmore than 50 04/07 on BMP bicarb 42. #Aute exacerbation of COPD: Was discharged on 03/24/2025 about 2 weeks ago. Patient is being managed on scheduled bronchodilator, IV Solu-Medrol, Mucinex, incentive spirometry and Pep. 03/28: Discussed with erp manager Dr. Dunlap at today. Continue high-dose of [...] 21:20 IMPRESSION: No Acute Findings. Reading Location: [facility] Chest/Abdomen/Pelvis CT 04/05/25 23:58 IMPRESSION: Pericardial effusion is present measuring around 1.4 cm axial 88, clinically correlate. Small posterior layering left pleural effusion. Bilateral atelectasis without focal consolidation identified. No evidence of acute intra-abdominal process on noncontrast imaging. Diverticulosis without diverticulitis. Reading Location: [facility]FT[facility]MR Charges/Coding Visit Charges Inpatient E&M: 05416 Subs Hosp L3 04/07/25 1500 <Electronically signed by Ken Vieyra MD> Cosigner Signature (if applicable): CC: ~ Signed [facility] Work Phone: 1(488) 139-583305-13-2025 Progress note [facility] Medical Records Department [address] [place] [address] Progress Note - Hospitalist 04/06/25 0842 MR#: [id number] Acct: [id number] Name: PIPER CLARK Rep #:[id number] 8 : 1955 69 From: Ken Hughes PCP: Dr. Genia Chappell MD Status:ADM IN Location: [address] 1 Reason for Visit Reason for Visit: Diagnoses [...] Body mass index [BMI] 45.0-49.9, adult (04/05/25) FDC (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 anticoagulants (04/05/25) Objective Data [...] 92.3 H, Lymph % (Auto) 2.2 L, Loup % (Auto) 4.1, Eos % (Auto) 0.0, [...] 96.1 H, Lymph % (Auto) 1.0 L, Loup % (Auto) 1.4, Eos % (Auto) 0.0, [...] 21:20 IMPRESSION: No Acute Findings. Reading Location: [facility] Chest/Abdomen/Pelvis CT 04/05/25 23:58 IMPRESSION: Pericardial effusion is present measuring around 1.4 cm axial 88, clinically correlate. Small posterior layering left pleural effusion. Bilateral atelectasis without focal consolidation identified. No evidence of acute intra-abdominal process on noncontrast imaging. Diverticulosis without diverticulitis. Reading Location: [facility] Rhythm Strip Rhythm Strip: A-fib Rate: 97 [...] 21:20 IMPRESSION: No Acute Findings. Reading Location: [facility] Chest/Abdomen/Pelvis CT 04/05/25 23:58 IMPRESSION: Pericardial effusion is present measuring around 1.4 cm axial 88, clinically correlate. Small posterior layering left pleural effusion. Bilateral atelectasis without focal consolidation identified. No evidence of acute intra-abdominal process on noncontrast imaging. Diverticulosis without diverticulitis. Reading Location: [id number] Charges/Coding Visit Charges Inpatient E&M: 32261 Subs Hosp L2 04/06/25 0852 Cosigner Signature [...] high flow nasal cannula. On BiPAP 7.4 1/54. Bicarb more than 50 04/07/25 1500 Cosigner Signature (if applicable): cc: ~* Signed [facility]05-13-2025 Progress note [facility] Medical Records Department [address] [place] [address] Progress Note - Hospitalist 04/07/25 2247 MR#: [id number] Acct: [id number] Name: PIPER CLARK Rep #:[id number] 7 : 1955 69 From: Ken Hughes PCP: Dr. Genia Chappell MD Status:ADM IN Location: [place] [address] 1 Reason for Visit Reason for Visit: Diagnoses [...] high flow nasal cannula. On BiPAP 7.4 1/54. Bicarbmore than 50 04/07 on BMP bicarb 42. #Aute exacerbation of COPD: Was discharged on 03/24/2025 about 2 weeks ago. Patient is being managedon scheduled bronchodilator, IV Solu-Medrol, Mucinex, incentive spirometry and Pep. 03/28: Discussed with erp manager Dr. Dunlap at today. Continue high-dose of [...] IMPRESSION: No Acute Findings. Reading Location: [facility] Chest/Abdomen/Pelvis CT 04/05/25 23:58 IMPRESSION: Pericardial effusion is present measuring around 1.4 cm axial 88, clinically correlate. Small posterior layering left pleural effusion. Bilateral atelectasis without focal consolidation identified. No evidence of acute intra-abdominal process on noncontrast imaging. Diverticulosis without diverticulitis. Reading Location: [facility] Charges/Coding Visit Charges Inpatient E&M: 54176 Subs Hosp L3 04/07/25 1500 Cosigner Signature (if applicable): CC: ~ Signed [facility]05-13-2025 Progress note Author Mitchell Brian [facility] Note Date/Time April 07, 2025 8:14a m [facility] Medical Records Department [address] [place] [address] Progress Note 04/07/25 0807 MR#: [id number] Acct: [id number] Name: PIPER CLARK Rep #:[id number] 7 : 1955 69 From: Mitchell norton MD PCP: Dr. Genia Chappell MD Status:ADM IN Location: [place] [address] Subjective Subjective The patient slept well, she [...] is discussed with Dr. Crowe this morning 04/07/25813 <Electronically signed by Mitchell Brian MD> Mitchell Brian MD Cosigner Signature (if applicable): CC: ~ Signed [facility] Work Phone: 1(959) 642-121905-13-2025 Progress note [facility] Medical Records Department [address] [place] [address] Progress Note 04/07/25806 MR#: [id number] Acct: [id number] Name: PPIER CLARK Rep #:[id number] 7 : 1955 69 From: Mitchell norton MD PCP: Dr. Genia Chappell MD Status:ADM IN Location: [place] [address] Subjective Subjective The patient slept well, she [...] Cosigner Signature (if applicable): CC: ~ Signed [facility]05-12-2025 History and physical note Author Orlando Maldonado [facility] Note Date/Time April 06, 2025 6:10a m [facility] Medical Records Department [address] [place] [address] H&P Exam - Hospitalist 04/05/25 2258 MR#: [id number] Acct: [id number] Name: PIPER CLARK Rep #:[id number] 0 : 1955 69 From: Orlando Zavaleta DO PCP: Dr. Genia Chappell MD Status:ADM IN Location: [address] - General General Date of Admission: 04/05/25 [...] troponin T of 19 bg/L complicated by Eivov-jt-Gpobjao Respiratory Insufficiency with LVEF ~65% and RVSP of ~50 mmHg with inability to evaluate for diastolic dysfunction who re-presents to [facility] complaining of shortness of breath, wheezing [...] is expected to extend beyond 2 midnights. [facility] Medical History (Updated 04/06/25 @ 05:[address] Orlando Bolden, DO) Morbid obesity with BMI of 45.0-49.9, adult [...] 92.3 H, Lymph % (Auto) 2.2 L, Loup % (Auto) 4.1, Eos % (Auto) 0.0, [...] (MDRD) Non-Af 82, BUN/Creatinine Ratio 29.9 H, Cqoutab013 H, Lactic Acid 2.5 H*, Calcium 9.2, Troponin T High Sens 10 D, NT pro BNP II 1349 H Rhythm Strip Rhythm Strip: A-fib Rate: 97 Ectopy: None Imaging Radiology Impression Chest X-Ray 04/05/25 21:20 IMPRESSION: No Acute Findings. Reading Location: [facility] Imaging Services [address] [place] [id number] Chest, Abd, Pelvis WO Cont MR#: [id number] Acct: [id number] Name: PIPER CLARK Rep #: [id number] : 1955 F 69 From: Mitchell Collier MD PCP: Dr. Genia Chappell MD Status: ADM IN Study: CT Chest, Abd, Pelvis WO Cont Date of Exam: 04/05/25 Exam# [id number] Ordering Dr: Orlando Bolden DO PROCEDURE: CT [...] noncontrast imaging. Diverticulosis without diverticulitis. Reading Location: [facility] CC: Dr. Genia Chappell MD; Dr. Orlando Bolden DO ~ Parking Garage Manager: Signed Assessment & Plan Assessment/Plan (1) Acute [...] pro-BNP II daily to follow trend. 4. Dpvnh-ee-Pdtmlqg Respiratory Failure requiring Airvo attributable to #1 [...] 75 minutes. Charges/Coding Visit Charges Inpatient E&M: 92808 Init Hosp L3 04/06/25 0610 <Electronically signed by Orlando Bolden DO> Cosigner Signature (if applicable): CC: Dr. Genia Chappell MD; Dr. Orlando Bolden DO~ Signed [facility] Work Phone: 1(276) 949-436205-12-2025 History and physical note [facility] Medical Records Department [address] [place] [address] H&P Exam - Hospitalist 04/05/25 3827 MR#: [id number] Acct: [id number] Name: PIPER CLARK Rep #:[id number] 0 : 1955 69 From: Orlando Zavaleta DO PCP: Dr. Genia Chappell MD Status:ADM IN Location: [address] 1 HPI - General General Date [...] and recent admission here from 2024 to 2024 for treatment of AE COPD with elevated NT pro-BNP II of 1,003 pg/mL andmildly elevated troponin T of 19 bg/L complicated by Oplnv-qc-Qaqqbhx Respiratory Insufficiency with LVEF ~65% and RVSP of ~50 mmHg with inability to evaluate for diastolic dysfunction who re-presents to [facility] complaining of shortness of breath, wheezing [...] that is expected to extend beyond 2midnights. [facility] Medical History (Updated 04/06/25 @ 05:[address] Orlando Bolden, DO) Morbid obesity with BMI of 45.0-49.9, adult [...] 92.3 H, Lymph % (Auto) 2.2 L, Loup % (Auto) 4.1, Eos % (Auto) 0.0, [...] (MDRD) Non-Af 82, BUN/Creatinine Ratio 29.9 H, Ylrahhw194 H, Lactic Acid 2.5 H*, Calcium 9.2, Troponin T High Sens 10 D, NT pro BNP II 1349 H Rhythm Strip Rhythm Strip: A-fib Rate: 97 Ectopy: None Imaging Radiology Impression Chest X-Ray 04/05/25 21:20 IMPRESSION: No Acute Findings. Reading Location: [facility] Imaging Services [address] [place] [address] Chest, Abd, Pelvis WO Cont MR#: [id number] Acct: [id number] Name: PIPER CLARK Rep #: [id number] : 1955 F 69 From: Mitchell Collier MD PCP: Dr. Genia Chappell MD Status: ADM IN Study: CT Chest, Abd, Pelvis WO Cont Date of Exam: 04/05/25 Exam# [id number] Ordering Dr: Orlando Bolden DO PROCEDURE: CT [...] noncontrast imaging. Diverticulosis without diverticulitis. Reading Location: [id number] CC: Dr. Genia Chappell MD; Dr. Orlando Bolden DO ~ Parking Garage Manager: Signed Assessment & Plan Assessment/Plan (1) Acute [...] pro-BNP II daily to follow trend. 4. Btnxj-ee-Oydwdxe Respiratory Failure requiring Airvo attributable to #1 [...] 75 minutes. Charges/Coding Visit Charges Inpatient E&M: 38250 Init Hosp L3 04/06/25 0610 Cosigner Signature (if applicable): CC: Dr. Genia Chappell MD; Dr. Orlando Bolden, DO~ Signed [facility]05-12-2025 Discharge summary Author Andi Angel [facility] Note Date/Time April 05, 2025 11:02 pm [facility] Medical Records Department [address] [place] [address] Emergency Department Summary 04/05/25 MR#: [id number] Acct: [id number] Name: PIPER CLARK Rep #:[id number] 0 : 1955 69 From: Andi Ortiz [...] is not usually the case for her. [facility] Medical History Chronic anticoagulation Elevated troponin Morbid [...] 92.3 H Lymph % (Auto) 2.2 L Loup % (Auto) 4.1 Eos % (Auto) 0.0 [...] 21:20 IMPRESSION: No Acute Findings. [facility] Rhythm Strip Rhythm Strip: A-fib Rate: 97 [...] min), Including time spent:, Discussing w/Patient &/or Family/Muck Miner, Discussing w/Consultants, Arranging Admission or Transfer and Performing Direct Patient Care at Bedside Discharge Plan Dx/Rx/DC Orders Clinical Impression: Acute hypoxic respiratory failure, Atrial fibrillation, Bilateral edema of lower extremity, Acute exacerbation of chronic obstructive pulmonary disease (COPD) Disposition Disposition: [facility] What to do if you have Problems For any increased pain, shortness of breath, bleeding, nausea or vomiting, chestpain, or any unexpected problems, contact your Primary Care Provider. Call [facility] ([phone]) or report to the closest Emergency Room. Call 911 if necessary. 04/05/252 <Electronically signed by Andi Ortiz MD> Cosigner Signature (if applicable): CC: Dr. Genia Chappell MD ~ Signed [facility] Work Phone: 1(586) 836-383805-12-2025 Radiology Diagnostic study note [facility] Imaging Services [address] [place], [place] [address] CT Chest, Abd, Pelvis WO Cont MR#: [id number] Acct: [id number] Name: PIPER CLARK Rep #: [id number] 1 : 1955 F 69 From: Juvenal Collier MD PCP: Dr. Genia Chappell MD Status: ADM IN Study:CT Chest, Abd, Pelvis WO Cont Date of E xam: 04/05/25 Exam# [id number] Ordering Dr: Orlando Crump DO PROCEDURE: CT [...] noncontrast imaging. Diverticulosis without diverticulitis. Reading Location: [facility] CC: Dr. Genia Chappell MD; Dr. Orlando Bolden, DO ~ Parking Garage Manager: Signed [facility]05-11-2025 Discharge summary [facility] Medical Records Department [address] [place] [address] Emergency Department Summary 04/05/25 MR#: [id number] Acct: [id number] Name: PIPER CLARK Rep #:[id number] 0 : 1955 69 From: Andi Ortiz [...] is not usually the case for her. [facility] Medical History Chronic anticoagulation Elevated troponin Morbid [...] 92.3 H Lymph % (Auto) 2.2 L Loup % (Auto) 4.1 Eos % (Auto) 0.0 [...] 21:20 IMPRESSION: No Acute Findings. Reading [facility] Rhythm Strip Rhythm Strip: A-fib Rate: 97 [...] min), Including time spent:, Discussing w/Patient &/or Family/Muck Miner, Discussing w/Consultants, Arranging Admission or Transfer and Performing Direct Patient Care at Bedside Discharge Plan Dx/Rx/DC Orders Clinical Impression: Acute hypoxic respiratory failure, Atrial fibrillation, Bilateral edema of lower extremity, Acute exacerbation of chronic obstructive pulmonary disease (COPD) Disposition Disposition: [facility] What to do if you have Problems For any increased pain, shortness of breath, bleeding, nausea or vomiting, chestpain, or any unexpected problems, contact your Primary Care Provider. Call [place] ([phone]) or report tothe closest Emergency Room. Call 911 if necessary. 04/05/25 2302 Cosigner Signature (if applicable): CC: Dr. Genia Chappell MD ~ Signed [facility]05-11-2025 Radiology Diagnostic study note [facility] Imaging Services [address] [place], [place] [id number] Chest 1 View (Portable) MR#: [id number] Acct: [id number] Name: HUSSAIN CLARKNATALIYA Prado Rep #: [id number] 6 : 1955 F 69 From: Amber Cortez MD PCP: Dr. Genia Chappell MD Status: PRE ER Study:Chest 1 View (Portable) Date of Exam: 04/05/25 Exam# [id number] Ordering Dr: Sal Ortiz MD PROCEDURE: CHEST 1 VIEW (PORTABLE) 04/05/2025 REASON FOR EXAM: SOB TECHNIQUE: Frontal view of the chest. COMPARISON: 03/30/2025 FINDINGS: Hardware: None Heart: Heart size is mildly enlarged. Lungs: Mild bibasilar atelectasis. No focal consolidation. No pneumothorax. No pleural effusion. Bones: The bones are unremarkable. Other: RAD/Chest 1 View (Portable) IMPRESSION: No Acute Findings. Reading Location: [facility] CC: Dr. Andi Ortiz MD; Dr. Genia Chappell MD ~ Parking Garage Manager: Signed [facility]05-06-2025 Radiology Diagnostic study note [facility] Imaging Services [address], [place] [id number] Chest PA and Lateral MR#: [id number] Acct: [id number] Name: BENITOPIPER L Rep #: [id number] 9 : 1955 F 69 From: Henrry Fowler MD PCP: Dr. Genia Chappell MD Status: REG CL I Study:Chest PA and Lateral Date of Exam: 03/30/25 Exam# [id number] Ordering Dr: Ny Chappell MD PROCEDURE: 03/30/2025 [...] Underlying COPD may be present. Reading Location: [id number] CC: Dr. Genia Chappell MD ~ Parking Garage Manager: Signed [facility]04-29-2025 Consult note [facility] Medical Records Department [address] [place] [address] Counseling Note - Pharmacy 03/24/25 1345 MR#: [id number] Acct: [id number] Name: PIPER CLARK Rep #:[id number] 0 : 1955 69 From: Lesly King PCP: Dr. Genia Chappell MD Status:ADM IN Location: [place] [id number] 1 Pharmacy [facility] has performed discharge medication reconciliation [...] #10 tabs 03/24/25 03/24/25 1345 Date _ Lesly Vick Signature (if applicable): Date CC: ~ Signed [facility]04-29-2025 Discharge summary Author Cindi Lizarraga [facility] Note Date/Time March 24, 2025 12: 42pm [facility] Medical Records Department [address] [place] [address] Instructions for Home/Discharge Instructions 03/24/25 1241 MR#: [id number] Acct: [id number] Name: PIPER CLARK Rep #:[id number] 6 : 1955 69 From: Cindi Lizarraga [...] Up: Christy Perea MD [Med Staff - [employer]] - Genia Chappell MD [Primary Care Provider] - 03/25/25 11:30 am (With Nurse Practioner Azael ) Disposition Disposition (needs filled in before D/C Order can be placed): Home Health Service 03/24/25 1242<Electronically signed by Cindi Lizarraga MD>Cindi Lizarraga MD CC: Dr. Genia Chappell MD; Dr. Orlando Bolden DO; Dr. Chai Rider DO ~ Signed [facility] Work Phone: 1(244) 907-510604-29-2025 Discharge summary Author Cindi [facility] Note Date/Time March 24, 2025 2:2 6pm [facility] Medical Records Department [address] [place] [address] Discharge Summary 03/24/25 1242 MR#: [id number] Acct: [id number] Name: PIPER CLARK Rep #:[id number] 8 : 1955 69 From: Cindi Lizarraga MD PCP: Dr. Genia Chappell MD Status:ADM IN Location: [place] [address] Providers Date of Admission: 03/19/25 Date of [...] 89.5 H, Lymph % (Auto) 3.6 L, Loup % (Auto) 3.8, Eos % (Auto) 2.0, [...] Up: Christy Perea MD [Med Staff - [employer]] - Genia Chappell MD [Primary Care Provider] - 03/25/25 11:30 am (With Nurse Practioner Azael ) Disposition Disposition (needs filled in before D/C Order can be placed): Home Health Service Charges/Coding Visit Charges Inpatient E&M: 05433 Disch Hosp >30min 03/24/25 1426 <Electronically signed by Cindi Lizarraga MD> Cosigner Signature (if applicable): CC: Dr. Genia Chappell MD; Dr. Cindi Lizarraga MD~ Signed [facility] Work Phone: 1([phone]) 358-127304-29-2025 Discharge summary [facility] Medical Records Department [address] [place] [address] Discharge Summary 03/24/25 1242 MR#: [id number] Acct: [id number] Name: PIPER CLARK Rep #:[id number] 8 : 1955 69 From: Cindi Lizarraga MD PCP: Dr. Genia Chappell MD Status:ADM IN Location: [place] [address] Providers Date of Admission: 03/19/25 Date of [...] 89.5 H, Lymph % (Auto) 3.6 L, Loup % (Auto) 3.8, Eos % (Auto) 2.0, [...] Provider: Genia Chappell Consulting Providers: Orlando Bolden; Tereletsky,Chai Instructions Patient Instructions: Discharge Instructions: COPD Discharge [...] Up: Christy Perea MD [Med Staff - [employer]] - Genia Chappell MD [Primary Care Provider] - 03/25/25 11:30 am (With Nurse Practioner Azael ) Disposition Disposition (needs filled in before D/C Order can be placed): Home Health Service Charges/Coding Visit Charges Inpatient E&M: 47856 Disch Hosp >30min 03/24/25 1426 Cosigner Signature (if applicable): CC: Dr. Genia Chappell MD; Dr. Cindi Lizarraga MD~ Signed [facility]04-29-2025 Discharge summary [facility] Medical Records Department [address] [place] [address] Instructions for Home/Discharge Instructions 03/24/25 1241 MR#: [id number] Acct: [id number] Name: PIPER CLAKR Rep #:[id number] 6 : 1955 69 From: Cindi Lizarraga [...] Up: Christy Perea MD [Med Staff - [employer]] - Genia Chappell MD [Primary Care Provider] - 03/25/25 11:30 am (With Nurse Practioner Azael ) Disposition Disposition (needs filled in before D/C Order can be placed): Home Health Service 03/24/25 1242Cindi Lizarraga MD CC: Dr. Genia Chappell MD; Dr. Orlando Bolden DO; Dr. Chai Rider DO ~ Signed [facility]04-29-20[facility] Progress note Author Cindi [facility] Note Date/Time March 23, 2025 4:4 4pm [facility] Medical Records Department [address] [place] [address] Progress Note 03/23/25 1351 MR#: [id number] Acct: [id number] Name: PIPER CLARK Rep #:[id number] 5 : 1955 69 From: Cindi Lizarraga MD PCP: Dr. Genia Chappell MD Status:ADM IN Location: [place] [address] Subjective Subjective Patient seen and examined. She [...] On Eliquis Charges/Coding Visit Charges Inpatient E&M: 85713 Subs Hosp L2 03/23/25 1644 <Electronically signed by Cindi Lizarraga MD> Cindi Lizarraga MD Cosigner Signature (if applicable): CC: ~ Signed [facility] Work Phone: 1(450) 798-561004-28-2025 Progress note [facility] Medical Records Department [address] [place] [address] Progress Note 03/23/25 1351 MR#: [id number] Acct: [id number] Name: PIPER CLARK Rep #:[id number] 5 : 1955 69 From: Cindi Lizarraga MD PCP: Dr. Genia Chappell MD Status:ADM IN Location: [place] [address] Subjective Subjective Patient seen and examined. She [...] On Eliquis Charges/Coding Visit Charges Inpatient E&M: 15573 Subs Hosp L2 03/23/25 1644 Cindi Lizarraga MD Cosigner Signature (if applicable): CC: ~ Signed [facility]04-27-2025 Progress note Author Chai Rider [facility] Note Date/Time March 22, 2025 5:4 3pm [facility] Medical Records Department [address] [place] [address] Progress Note - Hospitalist 03/22/25 1740 MR#: [id number] Acct: [id number] Name: PIPER CLARK Rep #:[id number] 9 : 1955 69 From: Chai Rider DO PCP: Dr. Genia Chappell MD Status:ADM IN Location: [place] [address] Reason for Visit Reason for Visit: Diagnoses [...] 35 minutes Charges/Coding Visit Charges Inpatient E&M: 14559 Subs Hosp L2 03/22/25 9659 <Electronically signed by Chai Rider DO> Cosigner Signature (if applicable): CC: ~ Signed [facility] Work Phone: 1(488) 570-436804-27-2025 Progress note [facility] Medical Records Department [address] [place] [address] Progress Note - Hospitalist 03/22/25 1740 MR#: [id number] Acct: [id number] Name: PIPER CLARK Rep #:[id number] 9 : 1955 69 From: Chai Rider DO PCP: Dr. Genia Chappell MD Status:ADM IN Location: [place] [address] Reason for Visit Reason for Visit: Diagnoses [...] 35 minutes Charges/Coding Visit Charges Inpatient E&M: 86207 Subs Hosp L2 03/22/25 1743 Cosigner Signature (if applicable): CC: ~ Signed [facility]04-26-2025 Progress note Author Chai Rider [facility] Note Date/Time March 21, 2025 12: 03pm [facility] Medical Records Department [address] [place] [address] Progress Note - Hospitalist 03/21/25 1200 MR#: [id number] Acct: [id number] Name: PIPER CLARK Johan Rep #:[id number] 8 : 1955 69 From: Chai Rider DO PCP: Dr. Genia Chappell MD Status:ADM IN Location: [place] [address] Reason for Visit Reason for Visit: Diagnoses [...] 35 minutes Charges/Coding Visit Charges Inpatient E&M: 72954 Subs Hosp L2 03/21/25 1203 <Electronically signed by Chai Rider DO> Cosigner Signature (if applicable): CC: ~ Signed [facility] Work Phone: 1(994) 624-732604-26-2025 Progress note [facility] Medical Records Department [address] [place] [address] Progress Note - Hospitalist 03/21/25 1200 MR#: [id number] Acct: [id number] Name: PIPER CLARK Rep #:[id number] 8 : 1955 69 From: Chai Rider DO PCP: Dr. Genia Chappell MD Status:ADM IN Location: [place] [address] Reason for Visit Reason for Visit: Diagnoses [...] 35 minutes Charges/Coding Visit Charges Inpatient E&M: 94531 Subs Hosp L2 03/21/25 1203 Cosigner Signature (if applicable): CC: ~ Signed [facility]04-25-2025 Progress note Author Chai Rider [facility] Note Date/Time March 20, 2025 7:3 7pm [facility] Medical Records Department [address] [place] [address] Progress Note - Hospitalist 03/20/251926 MR#: [id number] Acct: [id number] Name: PIPER CLARK Rep #:[id number] 1 : 1955 69 From: Chai Rider DO PCP: Dr. Genia Chappell MD Status:ADM IN Location: [place] [address] Reason for Visit Reason for Visit: Diagnoses [...] 03/20/25 15:25 03/20/25 15:25 03/20/25 15:25 03/20/25 15:03/20/25 16:44 03/20/25 16:44 Oxygen Flow Rate (L/min) [...] 73.9 H, Lymph % (Auto) 13.9 L, Loup % (Auto) 9.2, Eos % (Auto) 2.2, [...] (Auto) 93.9 H, Lymph % (Auto)4.3 L, Loup % (Auto) 1.2, Eos % (Auto) 0.0, [...] left humeral neck. Please correlate. Reading Location: [facility] Echocardiogram 03/19/25 22:40 Interpretation Summary The study [...] 35 minutes Charges/Coding Visit Charges Inpatient E&M: 75663 Subs Hosp L2 03/20/251936 <Electronically signed by Chai Rider DO> Cosigner Signature (if applicable): CC: ~ Signed [facility] Work Phone: 1(632) 618-241704-25-2025 Progress note [facility] Medical Records Department [address] [place] [address] Progress Note - Hospitalist 03/20/251926 MR#: [id number] Acct: [id number] Name: BENITOPIPER Rep #:[id number] 1 : 1955 69 From: Chai Rider DO PCP: Dr. Genia Chappell MD Status:ADM IN Location: [place] [address] 1 Reason for Visit Reason for Visit: Diagnoses [...] 166/84 H 93 Nasal Cannula 4 03/20/25 15:03/20/25 15:25 03/20/25 15:25 03/20/25 15:25 03/20/25 15:03/20/25 16:44 03/20/25 16:44 Oxygen Flow Rate (L/min) [...] 73.9 H, Lymph % (Auto) 13.9 L, Loup % (Auto) 9.2, Eos % (Auto) 2.2, [...] (Auto) 93.9 H, Lymph % (Auto)4.3 L, Loup % (Auto) 1.2, Eos % (Auto) 0.0, [...] 35 minutes Charges/Coding Visit Charges Inpatient E&M: 26388 Subs Hosp L2 03/20/251936 Cosigner Signature (if applicable): CC: ~ Signed [facility]04-25-2025 History and physical note Author Orlando Maldonado [facility] Note Date/Time March 20, 2025 6:1 7am [facility] Medical Records Department [address] [place] [address] H&P Exam - Hospitalist 03/19/252137 MR#: [id number] Acct: [id number] Name: PIPER CLARK Rep #:[id number] 2 : 1955 69 From: Orlando Zavaleta DO PCP: Dr. Genia Chappell MD Status:ADM IN Location: [place] [address] HPI - General General Date of Admission: [...] on acetaminophen twice daily who presents to [facility] ER complaining of shortness of breath, wheezing [...] is expected to extend beyond 2 midnights. [facility] Medical History Atrial fibrillation Hypertension Abnormal [...] 73.9 H, Lymph % (Auto) 13.9 L, Loup % (Auto) 9.2, Eos % (Auto) 2.2, [...] left humeral neck. Please correlate. Reading Location: [facility] Assessment & Plan Assessment/Plan (1) COPD exacerbation: (2) CHF (congestive heart failure): QUALIFIERS: Heart failure type: unspecified Heart failure chronicity: acute Qualified Code(s): I50.9 - Heart failure, unspecified (3) Edema of both legs: (4) Elevated troponin: (5) Coronary artery disease: QUALIFIERS: Coronary Disease-Associated Artery/Lesion type: unspecified vessel or lesion type Solomon vs. transplanted heart: rapp[place]ock heart Associated angina: [...] - Serialize troponin to follow trend. 4. Ewsus-qq-Kpjzemi Respiratory Insufficiency attributable to #1 - #3 [...] 75 minutes. Charges/Coding Visit Charges Inpatient E&M: 58282 Init Hosp L3 03/20/25 0617 <Electronically signed by Orlando Bolden DO> Cosigner Signature (if applicable): CC: Dr. Genia Chappell MD; Dr. Orlando Bolden DO~ Signed [facility] Work Phone: 1(631) 120-866104-25-2025 History and physical note [facility] Medical Records Department [address] [place] [address] H&P Exam - Hospitalist 03/19/252137 MR#: [id number] Acct: [id number] Name: PIPER CLARK Rep #:[id number] 2 : 1955 69 From: Orlando Zavaleta DO PCP: Dr. Genia Chappell MD Status:ADM IN Location: [address] 1 [facility] - General General Date of Admission: 03/19/25 [...] on acetaminophen twice daily who presents to [facility] ER complaining of shortness of breath, wheezing [...] is expected to extend beyond 2 midnights. [facility] Medical History Atrial fibrillation Hypertension Abnormal [...] 73.9 H, Lymph % (Auto) 13.9 L, Loup % (Auto) 9.2, Eos % (Auto) 2.2, [...] left humeral neck. Please correlate. Reading [facility] Assessment & Plan Assessment/Plan (1) COPD exacerbation: (2) CHF (congestive heart failure): QUALIFIERS: Heart failure type: unspecified Heart failure chronicity: acute Qualified Code(s): I50.9 - Heart failure, unspecified (3) Edema of both legs: (4) Elevated troponin: (5) Coronary artery disease: QUALIFIERS: Coronary Disease-Associated Artery/Lesion type: unspecified vessel or lesion type Solomon vs. transplanted heart: [place]ock heart Associated angina: [...] - Serialize troponin to follow trend. 4. Sbycx-as-Ukxaqtr Respiratory Insufficiency attributable to #1 - #3 [...] 75 minutes. Charges/Coding Visit Charges Inpatient E&M: 97838 Init Hosp L3 03/20/25 0617 Cosigner Signature (if applicable): CC: Dr. Genia Chappell MD; Dr. Orlando Bolden DO~ Signed [facility]04-25-2025 Discharge summary Author Juan F Curran [facility] Note Date/Time March 19, 2025 10: 08pm [facility] Medical Records Department [address] [place] [address] Emergency Department Summary 03/19/25 MR#: [id number] Acct: [id number] Name: PIPER CLARK Rep #:[id number] 2 : 1955 69 From: Juan F Curran DO PCP: Dr. Genia Chappell MD Status:ADM IN Location: [place] [address] HPI History of Present Illness Chief Complaint: [...] last 10 months of about 30 pounds [facility] Medical History Atrial fibrillation Hypertension Abnormal stress [...] 0.8. Troponin slightly elevated 19 and [employer] was elevated at thousand 3. Chest x-ray [...] 73.9 H Lymph % (Auto) 13.9 L Loup % (Auto) 9.2 Eos % (Auto) 2.2 [...] left humeral neck. Please correlate. Reading Location: [facility] 1 view chest x-ray obtained interpreted [...] Referrals: Christy Perea MD [Med Staff - [employer]] - Print Language: Indonesian Disposition Disposition: [facility] What to do if you have Problems For any increased pain, shortness of breath, bleeding, nausea or vomiting, chestpain, or any unexpected problems, contact your Primary Care Provider. Call [facility] ([phone]) or report to the closest Emergency Room. Call 911 if necessary. 03/19/252207 <Electronically signed by Juan F Curran DO> Cosigner Signature (if applicable): CC: Dr. Genia Chappell MD ~ Signed [facility] Work Phone: 1(159) 581-879204-25-2025 Evaluation note* Diagnosis Onset Date Resolution Status Admit Date Respiratory insufficiency resolved March 19, 2025 10:05pm Acute dyspnea inactive March 19, 2025 10:05pm Atrial fibrillation inactive March 19, 2025 10:05pm CHF (congestive heart failure) [facility] [place] March 19, 2025 10:05pm Chronic anticoagulation inactive A [facility] 2024 10:05pm COPD exacerbation inactive February 252024 10:05pm Coronary artery disease inactive A [facility] 2024 10:05pm Edema of both legs inactive March 19, 2025 10:05pm Elevated troponin inactive February 252024 10:05pm Morbid obesity with BMI of 45.0-49.9, adult inactive March 19 10:05pm [facility] Work Phone: 1(415) 562-502504-25-2025 Evaluation note* Diagnosis Onset Date Resolution Status Admit Date Morbid obesity with BMI of 45.0-49.9, adult acute March 19 10:05pm Respiratory insufficiency resolved March 19, 2025 10:05pm Acute dyspnea inactive March 19, 2025 10:05pm Atrial fibrillation inactive March 19, 2025 10:05pm CHF (congestive heart failure) [place] [place] March 19, 2025 10:05pm Chronic anticoagulation inactive A [facility] 2024 10:05pm COPD exacerbation inactive February 252024 10:05pm Coronary artery disease inactive A [facility] 2024 10:05pm Edema of both legs inactive [...] 1:12pm Atrial fibrillation chronic March 262024 11:12pm [facility] Work Phone: 1(429) 678-409604-25-2025 Evaluation note* Diagnosis Onset Date Resolution Status Admit Date Morbid obesity with BMI of 45.0-49.9, adult acute March 19 10:05pm Respiratory insufficiency resolved March 19, 2025 10:05pm Acute dyspnea inactive March 19, 2025 10:05pm Atrial fibrillation inactive March 19, 2025 10:05pm CHF (congestive heart failure) [place] March 19, 2025 10:05pm Chronic anticoagulation inactive A [facility] 2024 10:05pm COPD exacerbation inactive February 252024 10:05pm Coronary artery disease inactive A [facility] 2024 10:05pm Edema of both legs inactive March 19, 2025 10:05pm Elevated troponin inactive February 252024 10:05pm Acute hypoxic respiratory failure acute April 05, 2025 1 1:26pm Bilateral edema of lower extremity acute April 05, 2025 1 1:26pm Chronic anticoagulation acute M ay 2024 11:26pm Elevated brain natriuretic peptide (BNP) [...] 1:26pm Atrial fibrillation chronic March 262024 11:26pm [facility] Work Phone: 1(558) 486-452504-25-2025 Evaluation note* Diagnosis Onset Date Resolution Status Admit Date Morbid obesity with BMI of 45.0-49.9, adult acute March 19 10:05pm Coronary artery disease chronic A pril 2024 10:05pm Respiratory insufficiency resolved March 19, 2025 10:05pm Acute dyspnea inactive March 19, 2025 10:05pm Atrial fibrillation inactive March 19, 2025 10:05pm CHF (congestive heart failure) [place] March 19, 2025 10:05pm Chronic anticoagulation inactive A pril 2024 10:05pm COPD exacerbation inactive February 252024 10:05pm Edema of both legs inactive March 19, 2025 10:05pm Elevated troponin inactive February 252024 10:05pm Acute hypoxic respiratory failure acute April 05, 2025 1 1:26pm Bilateral edema of lower extremity acute April 05, 2025 1 1:26pm Chronic anticoagulation acute M ay 2024 11:26pm Elevated brain natriuretic peptide (BNP) [...] 1:26pm Atrial fibrillation chronic March 262024 11:26pm (HFpEF) heart failure with preserved ejection fraction chronic April 30, 2025 2:23pm Atrial fibrillation chronic April 30, 2025 2:23pm Chronic airway obstruction chronic April 30, 2025 2:23pm Coronary artery disease chronic J 2024 2:23pm Hypertension chronic April 30 2:23pm Morbid obesity chronic April 30, 2025 2:23pm Sleep apnea chronic April 30 2:23pm [facility] Work Phone: 1(519) 709-982204-24-2025 Discharge summary [facility] Medical Records Department [address] [place] [address] Emergency Department Summary 03/19/25 MR#: [id number] Acct: [id number] Name: PIPER CLARK Rep #:[id number] : 1955 69 From: Juan F Curran DO PCP: Dr. Genia Chappell MD Status:ADM IN Location: [place] [id number]- [facility] History of Present Illness Chief Complaint: Shortness [...] last 10 months of about 30 pounds [facility] Medical History Atrial fibrillation Hypertension Abnormal stress [...] 0.8. Troponin slightly elevated 19 and [employer] was elevated at thousand 3. Chest x-ray [...] 73.9 H Lymph % (Auto) 13.9 L Loup % (Auto) 9.2 Eos % (Auto) 2.2 [...] left humeral neck. Please correlate. Reading Location: [facility] 1 view chest x-ray obtained interpreted [...] Referrals: Christy Perea MD [Med Staff - [employer]] - Print Language: Indonesian Disposition Disposition: Acute Care [facility] What to do if you have Problems For any increased pain, shortness of breath, bleeding, nausea or vomiting, chestpain, or any unexpected problems, contact your Primary Care Provider. Call [facility] ([phone]) or report tothe closest Emergency Room. Call 911 if necessary. 03/19/252207 Cosigner Signature (if applicable): CC: Dr. Genia Chappell MD ~ Signed [facility]04-24-2025 Radiology Diagnostic study note [facility] Imaging Services [address] [place], [place] [address] Chest 1 View (Portable) MR#: [id number] Acct: [id number] Name: PIPER CLARK Rep #: [id number] : 1955 F 69 From: Juvenal Malagon DO PCP: Dr. Genia Chappell MD Status: REG ER Study:Chest 1 View (Portable) Date of Exam: 03/19/25 Exam# [id number] Ordering Dr: Stephany Curran DO PROCEDURE: CHEST [...] Dr. Genia Chappell MD; Dr. Juan F Curran DO ~ Parking Garage Manager: Signed [facility]01-09-2025 Evaluation note* Diagnosis Onset Date Resolution Status [...] 252024 10:05pm Coronary artery disease chronic A [facility] 2024 10:05pm [facility] Work Phone: 1(764) 979-656201-09-2025 Evaluation note* Diagnosis Onset Date Resolution Status Admit Date Fracture of left shoulder inactive December 04, 2024 1:43pm Respiratory insufficiency resolved March 19, 2025 10:05pm Acute dyspnea inactive March 19, 2025 10:05pm Atrial fibrillation inactive March 19, 2025 10:05pm CHF (congestive heart failure) [place] March 19, 2025 10:05pm Chronic anticoagulation inactive A pril 2024 10:05pm COPD exacerbation inactive February 252024 10:05pm Coronary artery disease inactive A pril 2024 10:05pm Edema of both legs inactive March 19, 2025 10:05pm Elevated troponin inactive February 252024 10:05pm Morbid obesity with BMI of 45.0-49.9, adult inactive March 19 10:05pm [facility] Work Phone: 1(954) 908-334612-03-2024 Evaluation note* Diagnosis Onset Date Resolution Status Admit Date Atrial fibrillation chronic Decem gerardo 2023 2:14pm Chronic airway obstruction chronic October 28, 2024 2:14pm Coronary artery disease chronic D ecember 2023 2:14pm Hypertension chronic October 2:14pm Morbid obesity chronic October 282023 2:14pm Sleep apnea chronic October 28, 2024 2:14pm Fracture of left shoulder inactive December 04, 2024 1:43pm [facility] Work Phone: 1(247) 405-786908-14-2023 Progress note [facility] July 09, 2023 3:21pm Note Date/Time July 09, 2023 3: 20pm [facility] Medical Records Department [address] [place] [address] Progress Note - Hospitalist 07/09/23 1511 MR#: [id number] Acct: [id number] Name: PIPER CLARK Rep #:[id number] : 1955 67 From: Preston desai DO PCP: Dr. Christy Perea MD Status:ADM [facility] Reason for Visit Reason for Visit: Diagnoses [...] 78.6 H, Lymph % (Auto) 10.0 L, Loup % (Auto) 9.7, Eos % (Auto) 1.0, [...] 91.8 H, Lymph % (Auto) 5.0 L, Loup % (Auto) 2.0, Eos % (Auto) 0.0, [...] CPAP, GERD and anxiety/depression who presented to [facility] on 07/08 with worsening dyspnea. 1. Acute [...] 35 minutes. Charges/Coding Visit Charges Inpatient E&M: 49825 Subs Hosp L2 07/09/23 1528 <Electronically signed by Preston Pineda DO> Cosigner Signature (if applicable): CC: ~ Signed [facility] Work Phone: 1(555) 917-417908-14-2023 Discharge summary Author Archie Gamino [facility] July 09, 2023 12:44am Note Date/Time July 08, 2023 3: 24pm [facility] Medical Records Department [address] [place] [address] Emergency Department Summary 07/08/23 MR#: [id number] Acct: [id number] Name: PIPER CLARK Rep #:[id number] : 1955 67 From: Archie Lopez PCP: Dr. Christy Perea MD Status:ADM IN Location: [place] [address] HPI History of Present Illness Chief Complaint: [...] states that she was on vacation in [place] when thisbegan. Patient states it is gradually gotten worse. Patient states she drove back from [place]. Patient states her breathing is worse with [...] or PE, Recent immobilization or Recent surgery [facility] Medical History Arthritis Cellulitis and abscess of [...] 78.6 H Lymph % (Auto) 10.0 L Loup % (Auto) 9.7 Eos % (Auto) 1.0 [...] sinus rhythm with a rate of 90. TX interval, QRS interval, and QTc intervals were all normal. [place] was normal. There are no acute ST [...] Provider] - Disposition Disposition: [facility] Care [facility] What to do if you have Problems For any increased pain, shortness of breath, bleeding, nausea or vomiting, chestpain, or any unexpected problems, contact your Primary Care Provider. Call [facility] ([phone]) or report to the closest Emergency Room. Call 911 if necessary. 07/09/23 0044 <Electronically signed by Archie Gamino DO> Cosigner Signature (if applicable): CC: Dr. Christy Perea MD ~ Signed [facility] Work Phone: 1(484) 185-319508-13-2023 History and physical note Author Geoff Galvan [facility] July 08, 2023 8:15pm Note Date/Time July 08, 2023 5: 20pm [facility] Medical Records Department [address] [place] [address] H&P Exam - Hospitalist 07/08/23 1716 MR#: [id number] Acct: [id number] Name: PIPER CLARK Rep #:[id number] : 1955 67 From: Geoff mora MD PCP: Dr. Christy Perea MD Status:ADM IN Location: [facility] XM260-4 HPI - General General Date of Admission: 07/08/23 HPI Narrative PIPER CLARK, is a 67 F who presents to the hospital with shortness of breath. This started 4 to 5 days ago while she was in [place] for family reunion. She has been noticing [...] wears oxygen at night through her CPAP. [facility] Medical History (Updated 07/08/23 @ 19:53 by [...] 78.6 H, Lymph % (Auto) 10.0 L, Loup % (Auto) 9.7, Eos % (Auto) 1.0, [...] Perea MD; Dr. Geoff Galvan MD~ Signed [facility] Work Phone: 1(879) 157-433008-25-2022 Miscellaneous Notes* Telephone Encounter - Stephany Lind [...] questions. Bhavik ZAMORANO, RN PH & HHT Chief Technician X [facility] Respiratory [facility] documented in this encounterMercy Health West Hospital08-24-2022 NoteHNO ID: [id number] Author: Lorne Newell MD Service: ? Author [...] meds. Access site: Right internal jugular vein Fisk Evelia size: 7.5 F. Anesthesia: Lidocaine 1% Procedure Narrative: Consent was obtained. Time out taken. Performed at procedure room in 1. Under sterile condition, lidocaine 1 % (5 ml) was applied and under US guidance a 8.5 F introducer was inserted without difficulty. Wire was noted to be located in the SVC under fluoroscopy. A Fisk-Evelia catheter was advanced to the right pulmonary [...] MD on July 19, 2022 at 4:01 PM.[facility]08-24-2022 History of Present illness Narrative* Lorne Newell [...] meds. Access site: Right internal jugular vein Fisk Evelai size: 7.5 F. Anesthesia: Lidocaine 1% Procedure Narrative: Consent was obtained. Time out taken. Performed at procedure room in 1. Under sterile condition, lidocaine 1 % (5 ml) was applied and under US guidance a 8.5 F introducer was inserted without difficulty. Wire was noted to be located in the SVC under fluoroscopy. A Fisk-Evelia catheter was advanced to the right pulmonary [...] 2022 at 4:01 PM. documented in this encounterMercy Health West Hospital08-16-2022 Miscellaneous Notes* Telephone Encounter - Orlando Simspon MA - 07/11/2022 10:22 AM EDTSummary: Appointment Confirmation Called patient to confirm her RHC with Dr. Newell on 07/19 at 4pm. No answer, left VM. Orlando Simpson Clinical Information Coder [facility] Respiratory [facility] documented in this encounterMercy Health West Hospital08-05-2022 NoteHNO ID: [id number] Author: Lorne Newell MD Service: ? Author Type: Physician Type: Progress Notes Filed: 06/30/2022 4:11 PM Note Text: VIRTUAL VISIT PROGRESS NOTE This is a virtual visit using SDNsquare video visit. It required patient-provider interaction for [...] oxygen desaturation at night 86%. Lives in [place] (1.5 hours from the clinic). No chest [...] which included preparing to see the patient, [id number] patient care, completing clinical documentation, obtaining and/or reviewing separately obtained history and ordering medications, tests, or procedures I will report my final recommendations back to the requesting physician by way of shared medical record or letter via US mail. Lorne Newell MD (more content not included)...[facility] 06-30-2022 History of Present illness Narrative* Lorne Newell MD - 06/30/2022 4:00 PM EDT Images from the original note were not included. VIRTUAL VISIT PROGRESS NOTE This is a virtual visit using SDNsquare video visit. It required patient-provider interaction for [...] oxygen desaturation at night 86%. Lives in [place] (1.5 hours from the clinic). No chest [...] which included preparing to see the patient, [id number] patient care, completing clinical documentation, obtaining and/or reviewing separately obtained history and ordering medications, tests, or procedures I will report my final recommendations back to the requesting physician by way of shared medical record or letter via US mail. Lorne Newell MD June 30, 2022 documented in this encounterMercy Health West Hospital08-02-2022 NoteHNO ID: [id number] Author: Naa Croft APRN.MOSHE Service: ? Author Type: Nurse Practitioner Type: [...] order VQ Scan and RHC. Naa Croft APRN.[facility]HEW[facility] History of Present illness Narrative* Naa Croft APRN.CHARGE AUDITOR - 06/27/2022 11:55 AM EDT Images from [...] RHC. Naa Croft APRN.MOSHE documented in this encounterMercy Health West Hospital07-11-2022 Miscellaneous Notes* Telephone Encounter - Orlando Simpson MA - 06/05/2022 10:50 AM EDTSummary: Care Coordination Called patient to schedule her RHC with Dr. Newell on 07/19/2022 at 4pm. NPO 4 hours pre-procedure. Anticoagulation: None at this time Must have a putaway driver for transportation post procedure. May take other medications as prescribed prior to procedure. Check in at desk G-11 at 3:30pm Orlando Simpson Clinical Information Coder [facility] documented in this encounterMercy Health West Hospital07-08-2022 Miscellaneous Notes* Telephone Encounter - Orlando Simpson MA - 06/02/2022 9:35 AM EDTSummary: Care Coordination Called patient to schedule her RHC with Dr. Newell. No answer, left VM. Orlando Simpson Clinical Information Coder [facility] documented in this encounterMercy Health West Hospital06-23-2022 Miscellaneous Notes* Telephone Encounter - Devonte Navas - 05/18/2022 1:[address] Mitchell Brian contacted Mic Webber MD for a RHC. Dr. Webber does not perform RHC's and has deferred to Dr. Newell. I am requesting recent office notes from office: [phone] documented in this encounterMercy Health West HospitalConlt note Author Lesly King [facility] July 10, 2023 1:41pm Note Date/Time July 10, 2023 1: 41pm [facility] Medical Records Department [address] [place] [address] Counseling Note - Pharmacy 07/10/23 1340 MR#: [id number] Acct: [id number] Name: PIPER CLARK Rep #:[id number] : 1955 67 From: Lesly King PCP: Dr. Christy Perea MD Status:ADM IN Y Location: [place] [address] Pharmacy [facility] has performed discharge medication reconciliation [...] understanding of their dischargemedications. Patient counseled by outpatient pharmacy managerAna. Medications at Discharge Home Medications calcium carbonate [...] Signature (if applicable): Date CC: ~ Signed [facility] Work Phone: Consult note Author Lesly King [facility] Note Date/Time March 24, 2025 3:4 0pm [facility] Medical Records Department [address] [place] [address] Counseling Note - Pharmacy 03/24/25 1345 MR#: [id number] Acct: [id number] Name: PIPER CLARK Rep #:[id number] : 1955 69 From: Lesly King PCP: Dr. Genia Chappell MD Status:ADM [facility] has performed discharge medication reconciliation [...] Signature (if applicable): Date CC: ~ Signed [facility] Work Phone: Discharge summary Author Preston Pineda [facility] July 10, 2023 12:55pm Note Date/Time July 10, 2023 12 :49pm [facility] Medical Records Department [address] [place] [address] Instructions for Home/Discharge Instructions 07/10/23 1247 MR#: [id number] Acct: [id number] Name: PIPER CLARK Rep #:[id number] : 1955 67 From: Preston desai [...] PCP as needed, and follow-up with your erp manager in the next 4 to 6 weeks. [...] can be placed): Home, Self Care 07/10/23 0835<Electronically signed by Preston Pineda DO>Preston Pineda DO CC: Dr. Christy Perea MD; Dr. Geoff Galvan MD ~ Signed [facility] Work Phone: evaluation note* Diagnosis Onset Date Resolution Status Acute sinusitis acute [facility] Work Phone: Evaluation note* Diagnosis Other secondary pulmonary hypertension (HCC) documented in this encounter [facility] note* Diagnosis Stage 3 severe COPD by GOLD classification (HCC) Abnormal echocardiogram Nonspecific (abnormal) findings on radiological and other examination of other intrathoracic organs documented in this encounter [facility] note* Diagnosis Stage 3 severe COPD by GOLD classification (HCC)- Primary documented in this encounter [facility] note* Diagnosis Pulmonary hypertension (HCC)- Primary Other chronic pulmonary heart diseases documented in this encounter [facility] noteNo assessment information availableWAvita Health [facility] Work Phone: Evaluation note* Diagnosis Onset Date Resolution Status Acute respiratory failure with hypoxia acute Hypoxia acute COPD exacerbation chronic [facility] Work Phone: Evaluation note* Diagnosis Onset Date Resolution Status Acute respiratory failure with hypoxia acute COPD exacerbation chronic Hypoxia resolved [facility] Work Phone: Evaluation note* Diagnosis Onset Date Resolution Status Atrial fibrillation chronic Chronic airway obstruction c hronic Hypertension chronic Morbid obesity chronic Sleep apnea chronic [facility] Work Phone: Reason for referral (narrative)* Diagnostic Procedure Only (Routine) - Pending Review Specialty Diagnoses / Procedures Referred By Conttoshia t Referred To Contact MOLECULAR & FUNCTIONAL IMAGING Diagnoses Other secondary pulmonary hypertension (HCC) Procedures NM LUNG VENT / PERF VQ PULMONARY VENTILATION & PERFUSION IMAGING Rachel Seaman APRN.CNS [address] [facility] [address] [place] [address] Molecular & Functional Imaging [address] [place] [id number] Referral ID Status Reason Start Date Expiration Date Visits Requested Visits Authorized [id number] Pending Review Auto-Generat ed Referral 05/19/2022 06/18/2023 1 1 [facility] (narrative)No reason for referral information availableWAvita [facility] Work Phone: Chief Complaint and Reason for [...] Chronic Obstructive Pulmonary Disease (COPD) J44.9 TACHYCARDIA ([facility]) COPD Reason for Visit Atrial fibrillation Chronic airway obstruction Hypertension Morbid obesity Sleep apnea Chief Complaint Chronic Obstructive Pulmonary Disease (COPD) J44.9 tachycardia Chronic Obstructive Pulmonary Disease (COPD) J44.9 TACHYCARDIA ([facility]) COPD AZAR AZAR COPD Reason for Visit Atrial fibrillation Chronic airway obstruction Hypertension Morbid obesity Sleep apnea Chief Complaint Chronic Obstructive Pulmonary Disease (COPD) J44.9 tachycardia Chronic Obstructive Pulmonary Disease (COPD) J44.9 TACHYCARDIA ([facility]) COPD AZAR AZAR COPD E ORDERS [...] 2 :14pm Fracture of left shoulder December 04 2 025 1:43pm Chief Complaint Admit Date [...] LAB ORDERS April 21, 2025 3:46p m Chief Complaint Admit Date AE COPD AE [...] LAB ORDERS April 21, 2025 3:46p m HYPOXIA April 30, 2025 12:56 pm 6 M FU April 30, 2025 2:23p m Reason for Visit Admit Date Morbid obesity with BMI of 45.0-49.9, ad ult March 19, 2025 10:05pm Coronary artery disease March 19, 2025 10:05pm Respiratory insufficiency March 19 10:05pm Acute dyspnea March 19, 2025 10: 05pm Atrial fibrillation March 19, 2025 10: 05pm CHF (congestive heart failure) February 10:05pm Chronic anticoagulation March 19, 2025 10:05pm COPD exacerbation March 19, 2025 10: 05pm Edema of both legs March 19, 2025 [...] Atrial fibrillation April 05, 2025 11:26 pm (HFpEF) heart failure with preserved eje ction fraction April 30, 2025 2:23pm Atrial fibrillation April 30, 2025 2:23p m Chronic airway obstruction April 30 2:23pm Coronary artery disease April 30, 2025 2 :23pm Hypertension April 30, 2025 2:23p m Morbid obesity April 30, 2025 2:23p m Sleep apnea April 30, 2025 2:23p m Family History Relationship Condition Age at Onset Recorded Date/T [...] Unknown son Drug overdose Unknown Advance Directives Advance Directive Response Recorded Date/ Time Living Will No December 02 12:53pm Power of Broommaking Supervisor No December 02 12:53pm Advance Directive Response Recorded Date/ Time Living Will No December 02 11:53am Power of Broommaking Supervisor No December 02 11:53am Advance Directive Response Recorded Date/ Time Name of Medical Power of Broommaking Supervisor Juvenal Clark July 08, 2023 7:47pm Living Will Yes July 08 7:47pm Power of Broommaking Supervisor Yes July 08, 023 7:47pm Advance Directive Response Recorded Date/ Time Advance Directives on File No Dece 2022 2:32pm Living Will Yes November 14, 2 023 2:47pm Power of Broommaking Supervisor Yes November 14, 2023 2:47pm Advance Directive Response Recorded Date/ Time Advance Directives on File No Dece 2022 2:32pm Living Will Yes January 21, 2 024 2:01pm Power of Broommaking Supervisor No January 21, 2024 2:01pm Advance Directive Response Recorded Date/ Time Advance Directives on File No Dece 2022 3:32pm Living Will Yes January 21, 2 024 3:01pm Power of Broommaking Supervisor No January 21, 2024 3:01pm Advance Directive Response Recorded Date/ Time Living Will Yes January 21, 2 024 3:01pm Power of Broommaking Supervisor No January 21, 2024 3:01pm Advance Directive Response Recorded Date/ Time Living Will Yes August 18, 2024 10:21am Do you have a Healthcare Power of Broommaking Supervisor? Yes August 18, 2024 10:21am Advance Directives Yes July 10:21am Advance Directive Response Recorded Date/ Time Living Will Yes August 18, 2024 10:21am Do you have a Healthcare Power of Broommaking Supervisor? Yes August 18, 2024 10:21am Do you have a Healthcare Power of Broommaking Supervisor? No March 19, 2025 10:53pm Advance Directives Yes July 10:21am Advance Directive Response Recorded Date/ Time Living Will Yes August 18, 2024 10:21am Do you have a Healthcare Power of Broommaking Supervisor? Yes August 18, 2024 10:21am Do you have a Healthcare Power of Broommaking Supervisor? No March 25, 2025 11:48am Do you have a Healthcare Power of Broommaking Supervisor? No March 19, 2025 10:53pm Advance Directives Yes July 10:21am Advance Directive Response Recorded Date/ Time Do you have a Healthcare Power of Broommaking Supervisor? No March 25, 2025 11:48am Do you have a Healthcare Power of Broommaking Supervisor? No March 19, 2025 10:53pm Advance Directives Yes July 10:21am Advance Directive Response Recorded Date/ Time Do you have a Healthcare Power of Broommaking Supervisor? No March 25, 2025 11:48am Do you have a Healthcare Power of Broommaking Supervisor? No March 19, 2025 10:53pm Do you have a Healthcare Power of Broommaking Supervisor? Yes April 05, 2025 8:31pm Advance Directives Yes July 10:21am Advance Directive Response Recorded Date/ Time Do you have a Healthcare Power of Broommaking Supervisor? No March 25, 2025 11:48am Do you have a Healthcare Power of Broommaking Supervisor? No March 19, 2025 10:53pm Do you have a Healthcare Power of Broommaking Supervisor? Yes April 06, 2025 12:21am Advance Directives [...] or prosecute any alcohol or drug abuse patient.[facility] Hospital[facility] the event this information is protected by the Federal Confidentiality of Alcohol and Drug Abuse Patient Records regulations: The Federal rules restrict any use of the information to criminally investigate or prosecute any alcohol or drug abuse patient.[facility] HospitalIn the event this information is protected by the Federal Confidentiality of Alcohol and Drug Abuse Patient Records regulations: The Federal rules restrict any use of the information to criminally investigate or prosecute any alcohol or drug abuse patient.[facility] HospitalIn the event this information is protected by the Federal Confidentiality of Alcohol and Drug Abuse Patient Records regulations: The Federal rules restrict any use of the information to criminally investigate or prosecute any alcohol or drug abuse patient.[facility] HospitalIn the event this information is protected by the Federal Confidentiality of Alcohol and Drug Abuse Patient Records regulations: The Federal rules restrict any use of the information to criminally investigate or prosecute any alcohol or drug abuse patient.[facility] HospitalIn the event this information is protected by the Federal Confidentiality of Alcohol and Drug Abuse Patient Records regulations: The Federal rules restrict any use of the information to criminally investigate or prosecute any alcohol or drug abuse patient.[facility] HospitalIn the event this information is protected by the Federal Confidentiality of Alcohol and Drug Abuse Patient Records regulations: The Federal rules restrict any use of the information to criminally investigate or prosecute any alcohol or drug abuse patient.[facility] HospitalIn the event this information is protected by the Federal Confidentiality of Alcohol and Drug Abuse Patient Records regulations: The Federal rules restrict any use of the information to criminally investigate or prosecute any alcohol or drug abuse patient.[facility] HospitalIn the event this information is protected by the Federal Confidentiality of Alcohol and Drug Abuse Patient Records regulations: The Federal rules restrict any use of the information to criminally investigate or prosecute any alcohol or drug abuse patient.[facility] HospitalIn the event this information is protected by the Federal Confidentiality of Alcohol and Drug Abuse Patient Records regulations: The Federal rules restrict any use of the information to criminally investigate or prosecute any alcohol or drug abuse patient.[facility] HospitalIn the event this information is protected by the Federal Confidentiality of Alcohol and Drug Abuse Patient Records regulations: The Federal rules restrict any use of the information to criminally investigate or prosecute any alcohol or drug abuse patient.[facility] Reason for Visit (unrecogniz ed section and content) Reason Comments Request Outside Medical Records Reason Comments Care Coordination Reason Comments Abstract Reason Comments Appointment Confirmation Reason Comments Chief Technician X Ray - Other Care Teams (unrecognized sec tion and content) Sewer Pipe Cleaner Relationship Specialty Start Date End Date Mitchell Brian V [address] [place] [address] Waste Disposal Leakage Tester Internal Medicine 06/06/22 Sewer Pipe Cleaner Relationship Specialty Start Date End Date Mitchell Brian V [address] [phone] Waste Disposal Leakage Tester Internal Medicine 06/06/22 Sewer Pipe Cleaner Relationship Specialty Start Date End Date Mitchell Brian V [address] [address] Waste Disposal Leakage Tester Internal Medicine 06/06/22 Sewer Pipe Cleaner Relationship Specialty Start Date End Date Mitchell Brian V [address] [phone] Waste Disposal Leakage Tester Internal Medicine 06/06/22 Sewer Pipe Cleaner Relationship Specialty Start Date End Date Mitchell Brian V [address] [place] [phone] Waste Disposal Leakage Tester Internal Medicine 06/06/22 Team Status: Active Member Role Status Dates Dr. Christy Perea MD Family Provider Active Dr. Christy Perea MD Primary Care Provider Active Team Status: Active Member Role Status Dates Dr. Christy Perea MD Primary Care Provider Active Dr. Archie Gamino , DO Emergency Provider Active Dr. Geoff Galvan MD Admit Provi galina, Attending Provider, Other Provider Active Team Status: Active Member Role Status Dates Dr. Christy Perea MD Primary Care Provider Active Dr. Archie Gamino , DO Emergency Provider Active Dr. Geoff Galvan MD Admit Provider, Other Pro vider Active Dr. Preston Pineda , DO Attending Provider, Other Provider Active Team Status: Inactive Member Role Status Dates Dr. Christy Perea MD Primary Care Provider Active Dr. Archie Gamino , DO Emergency Provider Active Dr. Geoff Galvan MD Admit Provider, Other Pro vider Active Dr. Preston Pineda DO Attending Provider Active Team Status: Inactive [...] Chandni Courtney MD Other Provider Active Whitney WHITTEN, PA Attending Provider Active Team Status: Inactive Member Role Status Dates Dr. Christy Perea MD Primary Care Provider Active Whitney Espitia PA, PA Attending Provider, Referr ing Provider Active [...] 2024 End: December 25, 2024 Azael Ashton INTERIOR PLANT CARETAKER, INTERIOR PLANT CARETAKER-C Attending Provider Active Start: December 25, 2024 End: December 25, 2024 Azael Ashton INTERIOR PLANT CARETAKER, INTERIOR PLANT CARETAKER-C Referring Provider Active Start: December 25, 2024 [...] 2025 End: March 18, 2025 Becca Dillard INTERIOR PLANT CARETAKER, INTERIOR PLANT CARETAKER-C Attending Provider Active Start: March 18, 2025 End: March 18, 2025 Becca Dillard INTERIOR PLANT CARETAKER, INTERIOR PLANT CARETAKER-C Referring Provider Active Start: March 18, 2025 [...] March 24, 2025 Dr. Orlando Bolden , Admit Provider Active Start: March 19, 2025 [...] March 20, 2025 Dr. Juan F Curran DO Emergency Provider Active S tart: March 20, 2025 Genia Chappell MD Primary Care Provider Active St art: March 20, 2025 Dr. Orlando Bolden DO Admit Provider Active Start: March 20, 2025 Dr. Orlando Bolden DO Other Provider Active Start: March 20, 2025 Dr. Chai Rider DO Attending Provider Active Start: March 20, 2025 Dr. Chai Rider , Other Provider Active S tart: March 20, [...] Status Dates Dr. Juan F Curran , Emergency Provider Active S tart: March 23, [...] March 25, 2025 Dr. Jose Armando Wood , Emergency Provider Active Start : March 25, [...] St art: April 03, 2025 Becca Dillard INTERIOR PLANT CARETAKER, INTERIOR PLANT CARETAKER-C Attending Provider Active Start: April 03, 2025 Becca Dillard INTERIOR PLANT CARETAKER, INTERIOR PLANT CARETAKER-C Referring Provider Active Start: April 03, 2025 [...] 2025 End: April 03, 2025 Becca Dillard INTERIOR PLANT CARETAKER, INTERIOR PLANT CARETAKER-C Attending Provider Active Start: April 03, 2025 End: April 03, 2025 Becca Dillard INTERIOR PLANT CARETAKER, INTERIOR PLANT CARETAKER-C Referring Provider Active Start: April 03, 2025 [...] Sta rt: April 08, 2025 Dr. Mitchell Brain MD Other Provider Active Start: April 08, [...] 2025 End: April 21, 2025 Becca Dillard INTERIOR PLANT CARETAKER, INTERIOR PLANT CARETAKER-C Attending Provider Active Start: April 21, 2025 End: April 21, 2025 Becca Dillard INTERIOR PLANT CARETAKER, INTERIOR PLANT CARETAKER-C Referring Provider Active Start: April 21, 2025 End: April 21, 2025 Team Status: Active Member Role Status Dates Genia Chappell MD Primary Care Provider Active St art: April 30, 2025 Dr. Mitchell Brian MD Attending Provider Active Start: April 30, 2025 Dr. Mitchell Brian MD Referring Provider Active Start: April 30, 2025 Team Status: Inactive Member Role Status Dates Dr. Christy Perea MD Referring Provider Active Start: April 30, 2025 End: April 30, 2025 Dr. Chandni Courtney MD Attending Provider Active Start: April 30, 2025 End: April 30, 2025 Genia Chappell MD Primary Care Provider Active St art: April 30, 2025 End: April 30, 2025 INFORMATION SOURCE (unrecogn ized section and content) DATE CREATED AUTHOR 07/23/2022 [facility] DATE CREATED AUTHOR AUTHOR'S ORGANIZ ATION 05/01/2025 [facility] FOR RECORDS PERTAINING TO PATIENTS WHO ARE [...] BE BASED ON THE PRIMARY CLINICAL RECORDS. [facility] [facility]. provides no warranty or guarantee of the accuracy or completeness of information in this document.
[2025-05-06 00:24] LABS: Absolute Lymphocyte Count 1.28 X10^3/uL (0.83-4.51); Absolute Neutrophil Count 10.3 X10^3/uL (2.0-7.7); Basophil# 0.05 X10^3/uL; Basophil% 0.4 % (0-1); Eosinophil# 0.03 X10^3/uL; Eosinophils% 0.2 % (0-5); Hematocrit 40.1 % (37-47); Hemoglobin 12.5 g/dL (12.0-15.0); Lymphocyte # 1.28 X10^3/ul (0.83-4.51); Lymphocyte % 9.7 % (19-41); Mean Corp Hgb Conc 31.2 g/dL (32-36); Mean Corpuscular Hgb 28.7 pg (27.0-32.0); Mean Corpuscular Volume 92.2 fL (81-99); Mean Platelet Vol. 9.4 fl (6.2-12.0); Monocyte# 1.47 X10^3/uL; Monocyte% 11.1 % (0-10); NRBC Flagged by Analyzer 0 % (0-5); Neutrophil # 10.28 X10^3/uL (2.7-7.7); Neutrophil % 77.7 % (47-70); Platelet Count 477 K/mm3 (150-450); RBC Distribution Width CV 15.1 % (11.6-14.6); Red Blood Count 4.35 M/mm3 (4.2-5.4); White Blood Count 13.2 K/mm3 (4.4-11.0)
[2025-05-06 00:47] LABS: AST(SGOT) 21 U/L (<=31); Alanine Aminotransfer ALT/SGPT 21 U/L (<=34); Albumin, Serum 3.8 g/dL (3.4-4.8); Alkaline Phosphatase 76 U/L (35-104); Anion Gap UNABLE TO CALCULATE (5-15); BUN 20 mg/dL (4-19); BUN/Creat Ratio 21.6 RATIO (10-20); Bilirubin, Direct 0.21 mg/dL (0.00-0.30); Calcium,Total 10.2 mg/dL (7.6-11.0); Carbon Dioxide > 50.0 mmol/L (21.0-32.0); Chloride 73 mmol/L (98-108); Creatinine, Serum 0.94 mg/dL (0.70-1.20); EST Glomerular Filtration Rate 65 (>60); Estimated Creatinine Clearance 61.82 ml/min (50-250); Globulin 3.1 g/dL (2.2-4.2); Glucose 146 mg/dL (70-99); Potassium 2.5 mmol/L (3.3-5.1); Protein, Total 6.9 g/dL (5.9-8.4); Sodium Level 136 mmol/L (133-145); Total Bilirubin 0.45 mg/dL (0.00-1.30)
[2025-05-06] MEDS: Potassium Chloride 10mEq/100mL 10 MEQ/100 ML IV.SOLN. 100 MEQ IV BOLUS ×5 (01:21→16:49)
[2025-05-06 01:30] LABS: Digoxin Level 1.15 ng/mL (0.00-2.00)
[2025-05-06 01:32] LABS: Magnesium 2.1 mg/dL (1.5-2.2)
[2025-05-06 01:38] LABS: Allen Test Positive; Base Excess > 30 mmol/L (-2 to +2); Bicarbonate 54.4 mmol/L (22-26); Blood Gas Specimen Type ART; Mode Not entered; O2 Delivery Device Cannula; PO2 102 mmHG (75-100); SITE R Radial; SO2 98 % (95-99); Total Carbon Dioxide > 50 mmol/L; pCO2 73.8 mmHg (35-45); pH 7.48 (7.35-7.45)
[2025-05-06] MEDS: Potassium Chloride Oral Tablet 20 MEQ 40 MEQ PO ×3 (02:08→12:09)
--- NOTE | 2025-05-06 02:28 | HP.PCM.HOS_ITS ---
HPI - General General Date of Admission: 05/06/25 Date of Service: 05/06/25 Chief Complaint: Weakness/mild confusion HPI Narrative PIPER OLIVER, is a 69 F who presented to the emergency department [facility] on 05/05/2025 with a chief complaint of generalized weakness with muscle twitching and some intermittent confusion. Patient has chronic heart failure with preserved ejection fraction and saw her director of environmental services on Sunday. He will diltiazem was discontinued and metolazone and digoxin were initiated. She is on chronic oxygen at 4 L for COPD and recently had a COPD exacerbation but has no shortness of breath at this time. She states other than the weakness she overall has been feeling much better she is very pleased with the amount of swelling in her legs as this is decreased dramatically. Vital signs on presentation showed temperature of 98.5, heart rate is 84, respiratory rate 18, blood pressure is 128/72 and pulse ox is 97% on her baseline 4 L nasal cannula. Chemistry shows a mild leukocytosis with a white count of 13.2 and a platelet count of 474,000. Her hemoglobin is also up to 12.5 which is above her baseline. This appears to be contraction related. ABG was performed due to abnormal chemistry. pH was 7.48 with a pCO2 of 73.8 and a pO2 of 102 on 4 L nasal cannula. Her chemistry showed marked hypokalemia with a potassium of 2.5. Her chloride was 73 with a serum bicarb greater than 50. Her BUN was 20 with a serum creatinine of 0.94. Glucose was 146. Liver functions are normal. Given her marked alkalosis, she was given Diamox 500 mg IV push x 1 dose in emergency department and her potassium was replaced with 40 mEq p.o. potassium and 10 mEq IV potassium. She will be admitted to PCU given her hypokalemia as observation status as I do not anticipate her requiring a 2 midnight hospitalization. [facility] Medical History Morbid obesity with BMI of 45.0-49.9, adult Chronic anticoagulation Elevated troponin COPD exacerbation CHF (congestive heart failure) Atrial fibrillation Acute dyspnea Edema of both legs Coronary artery disease Atrial fibrillation Hypertension Abnormal stress test Atrial fibrillation with rapid ventricular response Tachycardia Asthma Chronic airway obstruction Motion sickness Osteopenia Sleep apnea GERD (gastroesophageal reflux disease) Morbid obesity Anxiety Fatigue Smoker Depression Migraines Acute respiratory failure with hypoxia COPD exacerbation Acute sinusitis Cellulitis of left forearm Cellulitis and abscess of face Urinary tract infection Septic olecranon bursitis of right elbow Olecranon bursitis of right elbow Bursitis Sebaceous cyst of axilla Back pain Bronchitis URI (upper respiratory infection) Knee pain Hemorrhoids SOB (shortness of breath) Lung disease Arthritis Home Medications ?Medication ?Instructions ?Recorded ?Last Taken ?Type montelukast 10 mg tablet 10 mg PO QHS allergies 09/0704/04/25 History fluticasone fur. 200 mcg-umeclid 1 inh inhalation BATSHEVA Y SOB 07/08/23 04/05/25 History 62.5 mcg-vilant 25 mcg inhalat.powder (Trelegy Ellipta) rimegepant 75 mg disintegrating 75 mg PO DAILY PRN olesya tamika 07/08/23 Unknown History tablet (Nurtec ODT) albuterol sulfate 90 mcg/actuation 2 puff inhalation Q 4H PRN 02/13/24 04/05/25 History aerosol inhaler Shortness Of Breath duloxetine 60 mg capsule,delayed 60 mg PO DAILY mood 1 11/30/23 04/05/25 History release apixaban 5 mg tablet (Eliquis) 5 mg PO BID blood thinn er #60 tabs 02/16/25 04/05/25 Rx fluticasone propionate 50 2 spray intranasal QHS nasal 03/19/25 04/04/25 History mcg/actuation nasal spray,suspension (24 Hour Allergy Relief) furosemide 40 mg tablet 40 mg PO BID water pill 02/2504/05/25 History levofloxacin 500 mg tablet 500 mg PO DAILY #7 tabs Unknown Rx potassium chloride 20 mEq 20 meq PO DAILY supplement # 90 tabs 04/24/25 Unknown Rx tablet,extended release dapagliflozin propanediol 10 mg 10 mg PO QDAY #90 tabs 04/30/25 Unknown Rx tablet (Farxiga) digoxin 250 mcg (0.25 mg) tablet 250 mcg PO QDAY #90 t abs 05/01/25 Unknown Rx metolazone 5 mg tablet 5 mg PO QDAY #90 tabs Unknown Rx metoprolol tartrate 50 mg tablet 50 mg PO BID 05/04/25 Unknown History Allergy/AdvReac Type Severity Reaction Status Date / Time feathers Allergy Intermediate Shortness Verified 05/05/25 21:57 of breath house dust Allergy Unknown Verified 05/05/25 21:57 mold Allergy Unknown Verified 05/05/25 21:57 Family History Mother CAD (coronary artery disease) Diabetes C. difficile colitis Father CAD (coronary artery disease) Sister CAD (coronary artery disease) Brother , 62 Colon cancer Son , 45 Drug overdose Other Atrial fibrillation CHF (congestive heart failure) Cancer Heart disease Surgical History Hx of cardiac catheterization (~04/09/24) H/O left cataract extraction H/O right heart catheterization (~07/19/22) Hx of removal of ovary (~1994) History of appendectomy (~1994) Social History household members: spouse housing: house Smoking Status: Former smoker alcohol intake: current alcohol intake frequency: holidays/special occasions only substance use type: does not use caffeine: Yes Type: coffee Number of servings: 2 ROS Constitutional Constitutional: Reports fatigue and weakness; Denies anorexia, change in weight, chills, fever(s), malaise, night sweats or other Eyes Eyes: Denies blurry vision, change in eye color, change in vision, discharge from eye(s), double vision, erythema, eye pain, loss of vision or other ENT HEENT: Denies abnormal hearing, dysphagia, ear pain, epistaxis, headache(s), hearing loss, nasal congestion, nasal discharge, post nasal drip, sinus pressure, sore throat or other Cardiovascular Cardiovascular: Reports edema; Denies chest pain, claudication, dyspnea on exertion, lightheadedness, orthopnea, palpitations, paroxysmal nocturnal dyspnea, rapid heart rate, syncope or other Respiratory/Chest Respiratory/Chest: Denies cough, dyspnea, excessive phlegm production, hemoptysis, productive cough, shortness of breath at rest, shortness of breath with exertion, wheezing or other Gastrointestinal Gastrointestinal: Denies abdominal pain, coffee ground emesis, constipation, diarrhea, dyspepsia, hematemesis, hematochezia, loose stools, melena, nausea, vomiting or other Genitourinary Genitourinary: Denies burning urination, difficulty urinating, dysuria, hematuria, nocturia, urinary frequency, urinary hesitancy, urinary incontinence, urinary urgency or other Musculoskeletal Musculoskeletal: Reports back pain and joint pain; Denies arthralgias, joint stiffness, joint swelling, myalgias, neck pain or other Neurologic Neurologic: Reports confusion; Denies abnormal gait, abnormal speech, disequilibrium, dizziness, focal weakness, headache(s), numbness, paresthesias, seizure-like activity, seizures, syncope, tingling, tremor(s) or other Psychiatric Psychiatric: Reports anxiety and depression; Denies homicidal ideation, suicidal ideation or other Endocrine Endocrinology: Denies change in body appearance, cold intolerance, excessive sweating, heat intolerance, polydipsia, polyuria or other Hematologic/Lymphatic Hematologic/Lymphatic: Denies anemia, easy bleeding, easy bruising, lymphadenopathy or other Allergic/Immunologic Allergic/Immunologic: Denies rhinitis, hives, eczemia, asthma or other Vital Signs Vital Signs Vital Signs: 05/05/25 21:58 05/05/25 23:59 05/06/25 00:01 Temperature 98.5 F Temperature Source Oral Pulse Rate 84 78 Respiratory Rate 18 14 Respiratory Effort Respiratory Pattern Blood Pressure 128/72 H 115/71 Blood Pressure Mean 90 85 Pulse Ox 97 100 Oxygen Delivery Method Nasal Cannula Room Air Oxygen Flow Rate (L/min) 4 Fraction of Inspired Oxygen (FIO2) 05/06/25 00:02 05/06/25 01:55 05/06/25 02:00 Temperature Temperature Source Pulse Rate 88 88 Respiratory Rate 17 18 Respiratory Effort Normal Non-Labored Respiratory Pattern Normal Blood Pressure 122/74 H Blood Pressure Mean 90 Pulse Ox 97 98 Oxygen Delivery Method Oxygen Flow Rate (L/min) Fraction of Inspired Oxygen (FIO2) 35 05/06/25 02:18 Temperature 98.6 F Temperature Source Pulse Rate 88 Respiratory Rate 18 Respiratory Effort Respiratory Pattern Blood Pressure 122/74 H Blood Pressure Mean 90 Pulse Ox 98 Oxygen Delivery Method Oxygen Flow Rate (L/min) Fraction of Inspired Oxygen (FIO2) Weight Weight: 103.2 kg Body Mass Index (BMI) 41.5 Physical Exam Const alert, oriented x3, no apparent distress and well nourished; Negative for average body habitus or healthy appearing Constitutional Narrative: Morbidly obese, older, white female, sitting up in bed on BiPAP as she is going to sleep, appears comfortable, nontoxic General Appearance: cooperative HEENT normocephalic, head/scalp atraumatic, hearing grossly normal bilaterally and moist oral mucous membranes Resp normal respiratory effort, no retractions and no use of accessory muscles Resp Narrative: Diffusely diminished Cardio regular rate, S1 normal heart sound, S2 normal heart sound, no murmurs, no rub, no gallops and no clicks Cardio Narrative: Irregularly irregular rhythm with good rate control, heart tones are distant GI normal to inspection, nondistended, normoactive bowel sounds, soft to palpation and non-tender GI Narrative: Protuberant abdomen Extremity Extremity Narrative: Trace bilateral lower extremity edema, pedal pulses and radial pulses are 2+, no clubbing or cyanosis Neuro oriented x3, moves all extremities and no focal motor deficits Neuro Narrative: Generalized weakness noted but no focal deficits, currently on BiPAP but speech is intelligible and appropriate Psych affect normal Psych Narrative: Pleasant, eye contact is good and she interacts appropriately Results Lab / Micro Data 05/05/25 23:51 05/05/25 23:51 Labs: Laboratory Results - last 24 hr 05/05/25 23:51: WBC 13.2 H, RBC 4.35, Hgb 12.5, Hct 40.1, MCV 92.2, MCH 28.7, M CHC 31.2 L, RDW Std Deviation 51.0 H, RDW Coeff of Beena 15.1 H, Plt Count 477 H, MPV 9.4, Immature Gran % (Auto) 0.900, Neut % (Auto) 77.7 H, Lymph % (Auto) 9.7 L, [place] % (Auto) 11.1 H, Eos % (Auto) 0.2, Baso % (Auto) 0.4, Absolute Neuts (auto) 10.3 H, Absolute Lymphs (auto) 1.28, Nucleated RBC % 0, Sodium 136, P otassium 2.5 L*, Chloride 73 L*, Carbon Dioxide > 50.0 H*, Anion Gap UNABLE TO CALCULATE L, BUN 20 H, Creatinine 0.94, Estim Creat Clear Calc 61.82, Est GFR (MDRD) Non-Af 65, BUN/Creatinine Ratio 21.6 H, Glucose 146 H, Calcium 10.2, Magnesium 2.1, Total Bilirubin 0.45, Direct Bilirubin 0.21, AST 21, ALT 21, Alkaline Phosphatase 76, Total Protein 6.9, Albumin 3.8, Globulin 3.1, Digoxin 1.15 ABG Data ABG results: ABG 05/06/25 01:33 Specimen Type ART Sample Site R Radial pH 7.48 H Bicarbonate Actual 54.4 H Total CO2 > 50 Base Excess > 30 H O2 Saturation 98 O2 % 4.0 ABG pCO2 73.8 H* ABG pO2 102 H Johnathan Test Positive O2 Delivery Device Cannula Vent Mode Not entered Crit Call To/Read Back Yes Blood Gas Notified Whom [facility] Blood Gas Notified Time 01:34:56 Assessment & Plan Assessment/Plan (1) Acute confusion: (2) Weakness: (3) Acute hypokalemia: (4) Chronic respiratory failure with hypoxia and hypercapnia: (5) Metabolic alkalosis: (6) Respiratory acidosis: PLAN: Plan Generalized weakness - Suspect related to contraction alkalosis and marked hypokalemia - Replace potassium - Patient received 40 mEq p.o. and 10 mEq IV in the emergency department and will give another 40 mEq on admission - Mag levels within normal limits - Patient also appears to have a contraction alkalosis worse than her baseline alkalosis that is compensatory for chronic respiratory acidosis - Hold metolazone and Lasix - Acetazolamide 500 mg x 1 dose - Repeat BMP in a.m. - Dig levels within normal limits Altered mental status - Currently at baseline - Was having intermittent confusion at home but may be related to contraction alkalosis and hypokalemia - Will continue to monitor but currently alert and oriented x 3 Chronic hypoxic and hypercapnic respiratory failure - Patient is on chronic 4 L at home and stable on this at this time - Baseline pCO2 appears to run between 60 and 70 - Current ABG shows alkalosis that is somewhat worse than her baseline like related to contraction alkalosis from diuretics - Patient has a baseline respiratory alkalosis with a compensated metabolic acidosis that is currently overcompensated due to contraction WINIFRED - Continue BiPAP nocturnally and with naps COPD - Oxygen dependent 4 L at baseline - Aerosols as ordered - No signs of acute exacerbation - Continue home inhalers - Follows with Dr. Hoang as an outpatient Atrial fibrillation - Continue apixaban - Continue metoprolol - Patient had been on diltiazem but this was discontinued as there was concern that it was causing her lower extremity edema or at least contributing - Will continue digoxin that was started on 04/30/2025 by cardiology - Level was therapeutic at the time of admission Nonobstructive CAD/essential hypertension/chronic HFpEF/secondary pulmonary hypertension - Hold home diuretics now due to contraction alkalosis and give Diamox 500 mg x 1 dose -May need to titrate home metolazone and Lasix at the time of discharge - Continue home metoprolol - Continue home Jardiance - Last echocardiogram was performed on 03/20/2025 that showed EF of 65% with a small pericardial effusion and right ventricular systolic pressure of 50 mmHg Morbid obesity - BMI is 41.6 - recommend weight loss - complicates treatment, prognosis, outcomes Seasonal allergies - Continue home Singulair History of migraines - Continue as needed migraine medication Depression - Continue home antidepressants DVT prophylaxis - continue home apixaban CODE STATUS - DNR CCA is discussed with patient prior to admission Charges/Coding Visit Charges Inpatient E&M: 21907 Init Hosp L2
[2025-05-06] MEDS: AcetaZOLAMIDE 500 MG/10 ML Vial IV (02:55)
[2025-05-06 03:02] LABS: Anion Gap 10 (5-15); BUN 19 mg/dL (4-19); Calcium,Total 9.9 mg/dL (7.6-11.0); Carbon Dioxide 49.8 mmol/L (21.0-32.0); Chloride 75 mmol/L (98-108); Creatinine, Serum 0.86 mg/dL (0.70-1.20); EST Glomerular Filtration Rate 72 (>60); Estimated Creatinine Clearance 67.57 ml/min (50-250); Glucose 117 mg/dL (70-99); Potassium 2.6 mmol/L (3.3-5.1); Sodium Level 135 mmol/L (133-145)
[2025-05-06 09:15] LABS: Absolute Lymphocyte Count 2.05 X10^3/uL (0.83-4.51); Basophil# 0.05 X10^3/uL; Basophil% 0.3 % (0-1); Eosinophil# 0.03 X10^3/uL; Eosinophils% 0.2 % (0-5); Hemoglobin 11.4 g/dL (12.0-15.0); Lymphocyte # 2.05 X10^3/ul (0.83-4.51); Lymphocyte % 13.8 % (19-41); Mean Corp Hgb Conc 30.8 g/dL (32-36); Mean Corpuscular Hgb 28.7 pg (27.0-32.0); Mean Corpuscular Volume 93.2 fL (81-99); Mean Platelet Vol. 9.6 fl (6.2-12.0); Monocyte# 1.62 X10^3/uL; Monocyte% 10.9 % (0-10); NRBC Flagged by Analyzer 0 % (0-5); Neutrophil # 11.03 X10^3/uL (2.7-7.7); Neutrophil % 74.1 % (47-70); POSITIVE DIFFERENTIAL YES; Platelet Count 477 K/mm3 (150-450); RBC Distribution Width CV 15.2 % (11.6-14.6); RBC Distribution Width SD 52.1 fl (35.1-43.9); Red Blood Count 3.97 M/mm3 (4.2-5.4); White Blood Count 14.9 K/mm3 (4.4-11.0)
[2025-05-06 09:21] LABS: Differential Indicated SCAN CRITERIA MET
[2025-05-06 09:34] LABS: Phosphorus 3.5 mg/dL (2.7-4.5)
[2025-05-06 09:39] LABS: Anion Gap 10 (5-15); BUN 17 mg/dL (4-19); BUN/Creat Ratio 20.2 RATIO (10-20); Carbon Dioxide 47.7 mmol/L (21.0-32.0); Chloride 78 mmol/L (98-108); Creatinine, Serum 0.85 mg/dL (0.70-1.20); EST Glomerular Filtration Rate 73 (>60); Estimated Creatinine Clearance 68.37 ml/min (50-250); Glucose 117 mg/dL (70-99); Potassium 2.6 mmol/L (3.3-5.1); Sodium Level 135 mmol/L (133-145)
[2025-05-06] MEDS: Metoprolol Tartrate 50 MG Tablet PO ×2 (12:08→22:48)
[2025-05-06] MEDS: APIXABAN 5 MG TABLET PO ×2 (12:08→22:47)
[2025-05-06] MEDS: DULoxetine Hcl 60 MG Capsule PO (12:08)
[2025-05-06] MEDS: Digoxin 250 MCG Tablet PO (12:09)
[2025-05-06] MEDS: Potassium Chloride Oral Tablet 20 MEQ PO (12:50)
[2025-05-06] MEDS: Ipratropium/Albuterol Sulfate 3 ML AMPUL.NEB INHALATION ×2 (13:28→19:52)
[2025-05-06] MEDS: 0.9% Saline Lock 10 ML Syringe IV (13:35)
[2025-05-06] MEDS: 0.9% Normal Saline (250mL Bag) 250 ML 40 ML IV (13:37)
--- NOTE | 2025-05-06 17:45 | PN_ITS ---
Subjective Subjective Patient seen and examined. She was seen in the ED. She was admitted with a complaint of generalized weakness with muscle twitching and confusion. She was found to be hypokalemic. She is therefore being managed for hypokalemia Patient seen in the ED. She still felt weak. She denied any pain, fever or chills, any nausea or vomiting or any other symptoms. Review of systems otherwise negative. Objective Data Objective Data Vital Signs: Vital Signs Temp Pulse Resp BP Pulse Ox O2 Del Method O2 Flow Rate 98.4 F 88 18 144/82 H 94 Nasal Cannula 4 05/06/25 11:14 05/06/25 13:29 05/06/25 13:29 05/06/25 11:14 05/06/25 11:14 05/06/25 11:14 05/06/25 16:37 FiO2 35 05/06/25 06:22 Oxygen Flow Rate (L/min) 4 Oxygen Delivery Method Nasal Cannula Weight: 224 lb 13.944 oz Body Mass Index (BMI) 41.1 Intake & Output: Intake and Output for Last 24 Hours 05/04/25 05/05/25 05/06/25 23:59 23:59 23:59 Intake Total 790 / 790 Output Total 450 / 450 Balance 340 / 340 Lab / Micro Data 05/06/25 08:45 05/06/25 08:45 Labs: Laboratory Results - last 24 hr 05/05/25 23:51: WBC 13.2 H, RBC 4.35, Hgb 12.5, Hct 40.1, MCV 92.2, MCH 28.7, M CHC 31.2 L, RDW Std Deviation 51.0 H, RDW Coeff of Beena 15.1 H, Plt Count 477 H, MPV 9.4, Immature Gran % (Auto) 0.900, Neut % (Auto) 77.7 H, Lymph % (Auto) 9.7 L, Yancey % (Auto) 11.1 H, Eos % (Auto) 0.2, Baso % (Auto) 0.4, Absolute Neuts (auto) 10.3 H, Absolute Lymphs (auto) 1.28, Nucleated RBC % 0, Sodium 136, P otassium 2.5 L*, Chloride 73 L*, Carbon Dioxide > 50.0 H*, Anion Gap UNABLE TO CALCULATE L, BUN 20 H, Creatinine 0.94, Estim Creat Clear Calc 61.82, Est GFR (MDRD) Non-Af 65, BUN/Creatinine Ratio 21.6 H, Glucose 146 H, Calcium 10.2, Magnesium 2.1, Total Bilirubin 0.45, Direct Bilirubin 0.21, AST 21, ALT 21, Alkaline Phosphatase 76, Total Protein 6.9, Albumin 3.8, Globulin 3.1, Digoxin 1.15 05/06/25 02:39: Sodium 135, Potassium 2.6 L*, Chloride 75 L, Carbon Dioxide 49.8 H*, Anion Gap 10, BUN 19, Creatinine 0.86, Estim Creat Clear Calc 67.57, Est GFR (MDRD) Non-Af 72, BUN/Creatinine Ratio 22.0 H, Glucose 117 H, Calcium 9.9 05/06/25 08:45: WBC 14.9 H, RBC 3.97 L, Hgb 11.4 L, Hct 37.0, MCV 93.2, MCH 28.7, MCHC 30.8 L, RDW Std Deviation 52.1 H, RDW Coeff of Beena 15.2 H, Plt Count 477 H, MPV 9.6, Immature Gran % (Auto) 0.700, Neut % (Auto) 74.1 H, Lymph % (Auto) 13.8 L, Yancey % (Auto) 10.9 H, Eos % (Auto) 0.2, Baso % (Auto) 0.3, A bsolute Neuts (auto) 11.0 H, Absolute Lymphs (auto) 2.05, Nucleated RBC % 0, Differential Comment COMMENT, Sodium 135, Potassium 2.6 L*, Chloride 78 L, C arbon Dioxide 47.7 H*, Anion Gap 10, BUN 17, Creatinine 0.85, Estim Creat Clear Calc 68.37, Est GFR (MDRD) Non-Af 73, BUN/Creatinine Ratio 20.2 H, Glucose 117 H , Calcium 10.0, Phosphorus 3.5 ABG Data ABG results: ABG 05/06/25 01:33 Specimen Type ART Sample Site R Radial pH 7.48 H Bicarbonate Actual 54.4 H Total CO2 > 50 Base Excess > 30 H O2 Saturation 98 O2 % 4.0 ABG pCO2 73.8 H* ABG pO2 102 H Johnathan Test Positive O2 Delivery Device Cannula Vent Mode Not entered Crit Call To/Read Back Yes Blood Gas Notified Whom nella Blood Gas Notified Time 01:34:56 Physical Exam Const alert and oriented x3 Constitutional Narrative: Weak and frail. Class III obesity General Appearance: cooperative HEENT normocephalic, head/scalp atraumatic, moist oral mucous membranes and oropharynx normal Eyes PERRL and EOMs intact bilaterally Neck supple and no JVD Lymph Lymphatic: no lymphedema noted Resp normal respiratory effort, normal air movement and clear to auscultation bilaterally Cardio regular rate, regular rhythm, S1 normal heart sound, S2 normal heart sound and no murmurs GI normal to inspection, nondistended, normoactive bowel sounds, soft to palpation, non-tender and non-distended Extremity normal capillary refill and no clubbing, cyanosis or edema General Extremity: no tenderness to palpation of joints or extremities Skin General Skin Exam: no breakdown Neuro no focal motor deficits and no sensory deficits noted Motor Exam: general weakness Psych thought process normal Appearance: appropriate Assessment & Plan Assessment/Plan (1) Weakness: (2) Acute hypokalemia: PLAN: Plan #Debility and weakness due to acute hypokalemia with contraction alkalosis * Potassium was 2.5 and repeat was 2.6. Replace potassium aggressively. * Metolazone and Lasix on hold. She did receive a dose of acetazolamide on account of the contraction alkalosis. * Hydrate with IV fluids and trend potassium levels. * PT OT on board. For precautions. #Acute encephalopathy likely due to metabolic derangement: Resolved. Patient now at her baseline. #Chronic respiratory failure: * On 4 L of oxygen chronically at home. * She also has chronically elevated pCO2 * Breathing treatments bronchodilators. Titrate oxygen to maintain saturation above 90%. #WINIFRED: On BiPAP nightly #History of COPD: Not in exacerbation. Breathing treatments bronchodilators. #History of atrial fibrillation: On metoprolol and Eliquis. Also on digoxin. #Benign essential hypertension: On metoprolol #Nonobstructive CAD: Stable. #Chronic heart failure preserved ejection fraction: * Not in exacerbation. On Jardiance. Lasix and metolazone on hold due to hypokalemia. * Lasix echo showed EF of 65%. * #History of migraines: Stable #DVT prophylaxis: On Eliquis CODE STATUS: Full code Total time spent on evaluation and management of patient, reviewing chart and specialist notes, discussing plan with patient, discussion with nursing and ancillary staff as well as documentation: 35 mins Charges/Coding Visit Charges Inpatient E&M: 16402 PROLNG IP/OBS E/M EA 15 MIN
[2025-05-06 19:01] LABS: Anion Gap 7 (5-15); BUN 19 mg/dL (4-19); BUN/Creat Ratio 18.4 RATIO (10-20); Calcium,Total 9.9 mg/dL (7.6-11.0); Chloride 85 mmol/L (98-108); Creatinine, Serum 1.02 mg/dL (0.70-1.20); EST Glomerular Filtration Rate 59 (>60); Estimated Creatinine Clearance 56.59 ml/min (50-250); Glucose 178 mg/dL (70-99); Potassium 3.9 mmol/L (3.3-5.1); Sodium Level 137 mmol/L (133-145)
[2025-05-06] MEDS: Budesonide Respules 0.5 MG/2 ML AMPUL.NEB. INHALATION (19:52)
--- OUTSIDE RECORDS SUMMARY | 2025-05-06 20:42 | XMS RPT_ITS | CCD ---
Author Organization [facility] Care Team Providers Care Cargo Tank Mechanic Name Role Phone Dr. Christy Perea Primary Care Provider Dr. Belinda Barlow Attending Provider [phone] Dr. Christy Perea Referring Provider [phone] FISH Dahl Attending Provider Unavailable Primary Care Provider Unavailabl e Mitchell Millard Unavailable Mitchell Millard Unavailable Dr. Christy Perea Primary Care Provider Dr. Archie Gamino Emergency Provider Dr. Geoff Galvan Admit Provider Dr. Geoff Galvan Attending Provider Dr. Geoff Galvan Other Provider Dr. Preston Pineda Attending Provider Dr. Preston Pineda Other Provider Dr. Christy Perea Primary Care Provider Dr. Mitchell Brian V Referring Provider Dr. Mitchell Brian V Other Provider [phone] Car Fuller Attending Provider Dr. Christy Perea Primary Care Provider Dr. Mitchell Brian V Referring Provider Dr. Mitchell Brian V Other Provider [phone] Car Fuller Attending Provider Dr. Christy [...] Provider Elan NORRIS, Dr. Amin Attending Provider [facility] MEDICAL ASSISTANT CARDIOLOGY-C, Azael Attending Provider Jayashreehammondonna MEDICAL ASSISTANT CARDIOLOGY-C, Azael Referring Provider Brit NORRIS, Dr. Christy Delgadillo Attending Provider Brit NORRIS, Dr. Christy Delgadillo Primary Care Provider Brit NORRIS, Dr. Christy Delgadillo Referring Provider Curry Taylor MD Attending Provider Nishant MEDICAL ASSISTANT CARDIOLOGY-CBecca Attending Provider Nishant MEDICAL ASSISTANT CARDIOLOGY-CBecca Referring Provider Dr. Juan F Curran DO Referring Provider [phone] Juan F Curran DO Emergency Provider Genia Chappell MD Primary Care Provider Bolden DO, Dr. Nielsen Admit Provider Unavail able Dr. Orlando Bolden DO Other Provider Unavail able iZa NORRIS, Dr. Cindi Peterson Attending Provider Dr. Chai Rider DO Other Provider Sherwin NORRIS, Dr. Tariq Attending Provider [facility], Dr. Paula Attending Provider Zia NORRIS, Dr. Cindi Peterson Other Provider Nina CASTANEDA, Dr. Suárez Attending Provider Nina CASTANEDA, Dr. Sáurez Emergency Provider Dona NORRIS, Genia Attending Provider Roc NORRIS, Dr. Mitchell Winkler Referring Provider Dona NORRIS, Genia Referring Provider Brit NORRIS, Dr. Christy Delgadillo Primary Care Provider Brit NORRIS, Dr. Christy Delgadillo Referring Provider Angel NORRIS, Dr. Escamilla Emergency Provider [facility], Dr. Nielsen Attending Provider Unav ailable ms Joel DO, Dr. Nielsen Referring Provider Unav ailable Angel NORRIS, Dr. Escamilla Emergency Provider [facility], Dr. Nielsen Referring Provider Unav ailable Jarrell NORRIS, Dr. Rogers Attending Provider Rco NORRIS, Dr. Mitchell Winkler Other Provider Jarrell NORRIS, Dr. Rogers Other Provider Mandy NORRIS, Dr. Geoff Beal Attending Provider Jarrell NORRIS, Dr. Rogers Other Provider Jarrell NORRIS, Dr. Rogers Attending Provider Brit NORRIS, Dr. Christy Delgadillo Primary Care Provider Mandy NORRIS, Dr. Geoff Beal Other Provider Mitchell Brian V Referring Unavailable Dona, Chalon Primary Care Unavailable Dona, Chalon Attending Unavailable Jolliff, Christy S Primary Care Unavailable Curry Taylor Attending Unavailable Curry Taylor Referring Unavailable Jolliff, Christy S Attending Unavailable Jolliff, Christy S Primary Care Unavailable Dona, Chalon Primary Care Unavailable Nishant MEDICAL ASSISTANT CARDIOLOGY, Becca Attending Unavailable Nishant MEDICAL ASSISTANT CARDIOLOGY, Becca Referring Unavailable Sherwin, Chandni Attending Unavailable [...] Unavailable Husam Young NP Attending Unavailable Nishant MEDICAL ASSISTANT CARDIOLOGY, Becca Referring Unavailable Nishant MEDICAL ASSISTANT CARDIOLOGY, Becca Attending Unavailable Jolliff, Christy S Primary Care Unavailable Jolliff, Christy S Primary Care Unavailable Braden Bower Attending Unavailable Sherwin, Chandni Referring Unavailable Dona, Chalon Primary Care Unavailable Jose Armando Wood Attending Unavailable McMorrow MEDICAL ASSISTANT CARDIOLOGYAzael Referring Unavailable Jolliff, Christy S Primary Care Unavailable McMorrow MEDICAL ASSISTANT CARDIOLOGY, Azael Attending Unavailable Sibilia, Mitchell V Referring [...] Kristen Attending Unavailable Chai Rider Consulting Unavailable Cindi Lizarraga Consulting Unavailable Orlando Bolden Consulting Unavailable Orlando Bolden Admitting Unavailable Ungur, Remus Referring Unavailable Koram, Cindi Kristen Attending Unavailable Dona, Chalon Primary Care Unavailable Chai Rider Unavailable Orlando Bolden Admitting Unavailable Orlando Bolden Consulting Unavailable Orlando Bolden Referring Unavailable Dona, Chalon Primary Care Unavailable Geoff Galvan Attending Unavailable Sibilia, Mitchell V Consulting Unavailable Ken Vieyra Consulting Unavailable Nishant ESPARZA, Becca Referring Unavailable Dona, Chalon Primary Care Unavailable Nishant ESPARZA, Becca Attending Unavailable Jolliff, Christy S Referring Unavailable Jolliff, Christy S Primary Care Unavailable Mollison, Curry Attending Unavailable Jolliff, Christy S Referring Unavailable Jolliff, Christy S Primary Care Unavailable Mollison, Curry Attending Unavailable Jolliff, Christy S Primary Care Unavailable Jolliff, Christy S Referring Unavailable Mollison, Curry Attending Unavailable TereletskyChai Attending Unavailable Ken Vieyra Attending Unavailable Orlando Bolden Admitting Unavailable Orlando Bolden Consulting Unavailable Orlando Bolden Referring Unavailable Dona, Chalon Primary Care Unavailable SibiliaMitchell V Consulting Unavailable Jarrell, Ken Consulting Unavailable de Joel, Orlando Attending Unavailable de Joel, Orlando Attending Unavailable Kotsonis, Geoff F Attending Unavailable KotsGeoff mora F Consulting Unavailable Sherwin, Chandni Attending Unavailable Dona, Chalon Primary Care Unavailable Sherwin, Chandni Attending Unavailable Jolliff, Christy S Referring Unavailable Dona, Chalon Primary Care Unavailable Sherwin, Chandni Attending Unavailable Jolliff, Christy S Primary Care Unavailable Jolliff, Christy S Referring Unavailable Jolliff, Christy S Primary Care Unavailable ElanBryantBrennan Attending Unavailable Dona, Chalon Primary Care Unavailable Dona, Chalon Attending Unavailable Dona, Chalon Referring Unavailable Sybiliff , Dr. Christy Delgadillo Primary Care Provider Dr. Christy Perea MD Attending Provider Dr. Christy Perea MD Referring Provider Becca Gatica Attending Provider Becca Gatica Referring Provider [phone] Dr. Juan F Curran DO Referring Provider Dr. Juan F Curran DO Emergency Provider Genia Chappell MD Primary Care Provider Bolden DO, Dr. Nielsen Admit Provider Unavail able Bolden DO, Dr. Nielsen Other Provider Unavail able Zia NORRIS, Dr. Cindi Peterson Attending Provider Adry CASTANEDA, Dr. Paula Other Provider Sherwin NORRIS, Dr. Tariq Attending Provider Dr. Chai Rider DO Attending Provider Zia NORRIS, Dr. Cindi Peterson Other Provider Nina CASTANEDA, Dr. Suárez Attending Provider Dr. Jose Armando Wood DO Emergency Provider Genia Chappell MD Attending Provider Roc NORRIS, Dr. Mitchell Winkler Referring Provider Genia Chappell MD Referring Provider Dr. Andi Ortiz MD Emergency Provider de Joel CASTANEDA, Dr. Nielsen Referring Provider Unav ailable Roc NORRIS, Dr. Mitchell Winkler Other Provider Mandy NORRIS, Dr. Geoff Beal Attending Provider Jarrell NORRIS, Dr. Rogers Other Provider Jarrell NORRIS, Dr. Rogers Attending Provider Mandy NORRIS, Dr. Geoff Beal Other Provider Roc NORRIS, Dr. Mitchell Winkler Attending Provider Dr. Que Greene DO Emergency Provider [phone] Vannesa Camejo DO Attending Provider Dr. Vannesa Camejo DO Admit Provider Allergies Allergy Classification Reported Allergen(s) Allergy Type Date of Onset Reaction(s) Facility (20 sources) house dust allergenic extract Drug Allergy 03-31-2022 Unknown [facility] (20 sources) Mold Extract Drug Allergy 03-31-2022 [facility] Work Phone: (16 sources) Feather; Translations: [feathers] Drug Allergy 06-30-2022 [facility] Work Phone: (5 sources) House dust mite Allergy to substance 06-30-2022 [facility] Work Phone: (1 source) house dust allergenic extract Drug Allergy 04-30-2025 [facility] Repository (1 source) Mold Extract Drug Allergy 04-30-2025 [facility] Repository Medications Current Medications Medication Drug Class(es) Dates Sig (Normalized) Sig (Original) [id number] 200 actuat albuterol 0.09 mg/actuat metered dose [...] 2 Inhalation as instructed four times daily. dapagliflozin 10 mg oral tab let (1 source) Sodium-Glucose Cotransporter 2 Inhibitor Start: 04-30-2025 digoxin 0.25 mg oral tablet (1 source) Cardiac Glycoside Start: 05-01-2025 DULoxetine 60 mg delayed release oral capsule (10 sources) Serotonin and Norepinephrine Reuptake Inhibitor Start: 09-30-2024 fluticasone propionate 0.05 mg/actuat metered dose nasal spray (20 sources) Corticosteroid Start: 07-08-2023 End: 03-19-2025 Start: 07-08-2023 Fluticasone Pr opionate Active 2 SPRAY INTRANASAL AT BEDTIME July 08, 2023 12:00am Lkuixtrgunl-Nwiepuacr-Lmvjqf er (20 sources) Start: 07-08-2023 Start: 07-08-2023 [...] 12:00am levoFLOXacin 500 mg oral tab let (4 sources) Quinolone Antimicrobial Start: 04-10-2025 metOLazone 5 mg oral tablet (1 source) Thiazide-like Diuretic Start: 05-01-2025 metoprolol tartrate 50 mg or al tablet (20 sources) beta-Adrenergic Garret Start: 05-01-2025 End: 05-04-2025 Start: 10-09-2024 End: 05-04-2025 Start: 02-19-2024 End: 10-09-2024 Start: 02-19-2024 End: [...] chloride 20 meq extended release oral tablet (13 sources) Start: 05-07-2024 End: 04-24-2025 rimegepant 75 mg disintegrat ing oral tablet (20 sources) Start: 07-08-2023 Completed/Discontinued Medications Medication Drug Class(es) Dates Sig (Normalized) Sig (Original) acetaminophen 300 mg / HYDROcodone bitartrate 5 mg oral tablet (10 sources) Opioid Agonist Start: 08-17-2024 End: 09-30-2024 Start: 08-17-2024 End: 09-30-2024 Hydrocodone-Acetaminophen 5- 300 mg tablet Discontinued 1 {tbl} PO Q4H as needed for pain 15 05August 17, 2024 September 30, 2024 3:16pm apixaban 5 mg oral tablet (20 sources) [...] week. Then 5 mg twice a day. aspirin 81 mg chewable tablet (20 sources) [...] 27, 2019 12:00am August 10, 2021 2:49pm 24 hr dilTIAZem hydrochlorid e 240 mg extended release oral capsule (20 sources) Calcium Channel Garret Start: 02-19-2024 End: 05-01-2025 Start: 01-21-2024 End: 02-19-2024 escitalopram 20 mg oral tablet (20 sources) [...] oral tablet (20 sources) Loop Diuretic Start: 05-07-2024 End: 04-10-2025 Start: 05-07-2024 End: 04-10-2025 Start: [...] allergy symptoms.). modafinil 100 mg oral tablet (10 sources) Sympathomimetic-like Agent Start: 10-01-2024 End: 03-19-2025 omeprazole 40 mg delayed rel ease oral capsule (10 sources) Proton Pump Inhibitor Start: 05-07-2024 End: [...] 1 Puff as ins tructed once daily. (4 sources) Start: 10-01-2024 End: 10-28-2024 Start: 02-13-2024 End: 09-30-2024 Problems Active Problems Problem Classification Problem Date Documented Da te Episodic/Chronic Cardiac dysrhythmias (20 sources) Atrial fibrillation with rapid ventricular response; Translations: [Unspecified atrial fibrillation] Onset: 04-05-2025 01-21-2024 Chronic Cardiac dysrhythmias (14 sources) Tachycardia; Translations: [Tachycardia, unspecified] 02-13-2024 Episodic [...] Coronary arteriosclerosis; Translations: [Atherosclerotic heart disease of [place] coronary artery without angina pectoris] Onset: 03-24-2025 05-07-2024 Chronic Diseases of white blood cells (13 sources) Leukocytosis; Translations: [Elevated white blood cell count, unspecified] Onset: 04-10-2025 04-05-2025 Chronic Disorders of lipid metabolism (10 sources) Hyperlipidemia; Translations: [Hyperlipidemia, unspecified] Onset: 03-23-2025 03-17-2025 Chronic E Codes: Fall (10 sources) Fall; Translations: [Unspecified fall, initial encounter] 08-25-2024 Episodic Essential hypertension (20 sources) Hypertensive disorder; Translations: [Essential (primary) hypertension] Onset: 04-30-2025 02-19-2024 Chronic Fluid and electrolyte disorders (20 sources) Lactic acidosis; Translations: [Lactic acidosis] 04-05-2025 Episodic Fracture of upper limb (14 sources) Fracture of left shoulder girdle, part unspecified, initial encounter for closed fracture; Translations: [Fracture of left shoulder] Onset: 12-04-2024 08-25-2024 Episodic Malaise and fatigue (3 sources) Other fatigue; Translations: [Asthenia] Onset: 02-16-2025 05-06-2025 Episodic Other aftercare (10 sources) Long-term current use of diuretic; Translations: [Encounter for therapeutic drug level monitoring] 08-15-2024 Episodic Other aftercare (20 sources) Long-term current use of anticoagulant; Translations: [exterminator termite (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 anticoagulants] 08-25-2024 Episodic Other aftercare (1 source) Encounter for therapeutic drug level monitoring; Translations: [Encounter for therapeutic drug level monitoring] Onset: 05-01-2025 Episodic Other aftercare (1 source) Other jail (current) drug therapy; Translations: [Other jail (current) drug therapy] Onset: 05-01-2025 Episodic Other aftercare (1 source) exterminator termite (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 anticoagulants; Translations: [exterminator termite (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 anticoagulants] Onset: 04-10-2025 Episodic Other circulatory disease (10 sources) H/O: atrial fibrillation; Translations: [Personal history [...] elbow] 08-15-2021 Episodic Other connective tissue disease (10 sources) Muscle pain; Translations: [Myalgia, unspecified site] 08-15-2024 Episodic Other lower respiratory disease (20 sources) Hypoxia; Translations: [Hypoxemia] 07-08-2023 Episodic Other lower respiratory disease (3 sources) Hypoxemia; Translations: [Hypoxemia] Onset: 04-30-2025 07-10-2023 Episodic Other lower respiratory disease (18 sources) Dyspnea; Translations: [Dyspnea, unspecified] 03-19-2025 Episodic Other lower respiratory disease (18 sources) Respiratory insufficiency; Translations: [Other abnormalities of breathing] 03-19-2025 Episodic Other lower respiratory disease (1 source) Shortness of breath; Translations: [Shortness of breath] Onset: 04-26-2025 Episodic Other lower respiratory disease (1 source) Other abnormalities of breathing; Translations: [Other abnormalities of breathing] Onset: 03-24-2025 Episodic Other nutritional; endocrine; and metabolic disorders (17 sources) Morbid obesity; Translations: [Morbid (severe) obesity [...] Chronic Other nutritional; endocrine; and metabolic disorders (12 sources) Alveolar hypoventilation; Translations: [Morbid (severe) obesity [...] caused by tuberculosis or sexually transmitted disease) (10 sources) Pericardial effusion; Translations: [Pericardial effusion] 04-06-2025 Episodic Pulmonary heart disease (2 sources) Secondary pulmonary hypertension; Translations: [Other secondary pulmonary hypertension] Chronic Residual codes; unclassified (17 sources) Sleep apnea; Translations: [Sleep apnea, unspecified] 02-19-2024 Chronic Residual codes; unclassified (5 sources) Sleep apnea, unspecified; Translations: [Unspecified sleep apnea] Onset: 04-30-2025 02-19-2024 Chronic Residual codes; unclassified (12 sources) Obstructive sleep apnea syndrome; Translations: [Obstructive sleep apnea (adult) (pediatric)] 04-05-2025 Chronic Residual codes; unclassified (1 source) Obstructive sleep apnea (adult) (pediatric); Translations: [Obstructive sleep apnea (adult) (pediatric)] Onset: 04-10-2025 Chronic Residual codes; unclassified (20 sources) Bilateral lower limb edema; Translations: [Localized edema] 03-17-2025 Episodic Residual codes; unclassified (3 sources) Edema; Translations: [Edema, unspecified] 04-21-2025 Episodic Residual codes; unclassified (2 sources) Localized edema; Translations: [Localized edema] Onset: 04-08-2025 Episodic Residual codes; unclassified (2 sources) Acute confusion; Translations: [Disorientation, unspecified] 05-06-2025 Episodic Respiratory failure; insufficiency; arrest (adult) (11 sources) Chronic hypoxemic respiratory failure; Translations: [Chronic [...] Acidosis, unspecified; Translations: [Acidosis, unspecified] Onset: 04-10-2025 Urinary tract infections (20 sources) Urinary tract infectious disease; Translations: [Urinary tract infection, site not specified] Onset: 01-09-2025 10-03-2021 Episodic Past or Other Problems Problem Classification Problem Date Documented Da te Episodic/Chronic Genitourinary symptoms and ill-defined conditions (1 source) Painful micturition, unspecified; Translations: [Painful micturition, unspecified] Onset: 09-18-2024 Episodic Other injuries and conditions due to external causes (1 source) Encounter for examination and observation following other accident; Translations: [Encounter for examination and observation following other accident] Onset: 09-11-2024 Episodic Results Test Name Value Interpretation Reference Range Facility Absolute lymphocyte countOrd ered By: Que Greene on 05-06-2025 Lymphocytes Auto (Unsp spec) [#/Vol] 2.05 10*3/uL 0.83-4.51 [facility] Anion gap in Serum or Plasma Ordered By: Que Greene on 05-06-2025 Anion gap [Moles/Vol] 10 mmol/L 5-15 [facility] Assessment of wrist artery p atency prior to arterial punctureOrdered By: Que Greene on 05-06-2025 Arterial patency Wrist artery --pre arterial puncture Positive [facility] Automated lymphocyte count a s percentage of total leukocytesOrdered By: Que Greene on 05-06-2025 Lymphocytes/100 WBC Auto (Unsp spec) 13.8 % Low 19-41 [facility] BUN/creatinine ratioOrdered By: Que Greene on 05-06-2025 Urea nitrogen/Creatinine [Mass ratio] 20.2 mg/mg High 10-20 [facility] Basophil percentageOrdered B y: Que Greene on 05-06-2025 Basophils/100 WBC (Bld) 0.3 % 0-1 [facility] Blood base excess determinat ionOrdered By: Que Greene on 05-06-2025 Base excess Calc (BldV) [Moles/Vol] mmol/L High -2-2 [facility] Blood bicarbonate measuremen tOrdered By: Que Greene on 05-06-2025 HCO3 (Bld) [Moles/Vol] 54.4 mmol/L High 22-26 [facility] Blood manual differential co mment interpretation (narrative result)Ordered By: Que Greene on 05-06-2025 Manual differential comment Eugene (Bld) [Interp] COMMENT [facility] Carbon dioxide, total [Moles /volume] in Central venous bloodOrdered By: Que Greene on 05-06-2025 CO2 [Moles/Vol] 47.7 mmol/L High 21.0-32.0 [facility] Chloride assayOrdered By: Misael Greene on 05-06-2025 Chloride [Moles/Vol] 78 mmol/L Low 98-108 [facility] Eosinophil percentageOrdered By: Que Greene on 05-06-2025 Eosinophils/100 WBC (Bld) 0.2 % 0-5 [facility] Erythrocyte distribution wid th ratioOrdered By: Que Greene on 05-06-2025 Erythrocyte distribution width (RBC) [Ratio] 15.2 % High 11.6-14.6 [facility] Erythrocyte distribution wid th standard deviationOrdered By: Que Greene on 05-06-2025 Erythrocyte distribution width (RBC) [Ratio] 52.1 fl High 35.1-43.9 [facility] Glomerular filtration rate ( GFR) estimation/1.73 sq m using serum, plasma, or whole bOrdered By: Que Greene on 05-06-2025 GFR/1.73 sq M.predicted among non-blacks MDRD (S/P/Bld) [Vol rate/Area] 73 mL/min/{1.73_m2} >60 [facility] Hematocrit Auto (Bld) [Volum e fraction]Ordered By: Que Greene on 05-06-2025 Hematocrit (Bld) [Volume fraction] 37.0 % 37-47 [facility] Hemoglobin measurementOrdere d By: Que Greene on 05-06-2025 Hemoglobin (Bld) [Mass/Vol] 11.4 g/dL Low 12.0-15.0 [facility] Immature granulocytes/100 WB C Auto (Bld)Ordered By: Que Greene on 05-06-2025 Immature granulocytes/100 WBC (Bld) 0.700 % 0.0-0.9 [facility] MCV (mean corpuscular volume ) determinationOrdered By: Que Greene on 05-06-2025 MCV (RBC) [Entitic vol] 93.2 fL 81-99 [facility] Mean corpuscular hemoglobin (MCH) determinationOrdered By: Que Greene on 05-06-2025 MCH (RBC) [Entitic mass] 28.7 pg 27.0-32.0 [facility] Measurement, pHOrdered By: Ellen Greene on 05-06-2025 pH (Unsp spec) 7.48 [pH] High 7.35-7.45 [facility] Monocyte percentageOrdered B y: Que Greene on 05-06-2025 Monocytes/100 WBC (Bld) 10.9 % High 0-10 [facility] Neutrophil percentageOrdered By: Que Greene on 05-06-2025 Neutrophils/100 WBC (Bld) 74.1 % High 47-70 [facility] No Panel InformationOrdered By: Que Greene on 05-06-2025 ART [facility] R Radial [facility] Not entered [facility] Cannula [facility] 01:34:56 [facility] hoehne [facility] Yes [facility] Platelet countOrdered By: Misael Greene on 05-06-2025 Platelets (Bld) [#/Vol] 477 10*3/uL High 150-450 [facility] Potassium measurement (mass/ volume)Ordered By: Que Greene on 05-06-2025 Potassium (Unsp spec) [Mass/Vol] 2.6 mmol/L Low 3.3-5.1 [facility] RBC Auto (Bld) [#/Vol]Ordere d By: Que Greene on 05-06-2025 RBC (Bld) [#/Vol] 3.97 10*6/uL Low 4.2-5.4 [facility] Serum creatinine measurement (mass/volume)Ordered By: Que Greene on 05-06-2025 Creatinine [Mass/Vol] 0.85 mg/dL 0.70-1.20 [facility] Serum glucose measurement (m ass/volume)Ordered By: Que Greene on 05-06-2025 Glucose [Mass/Vol] 117 mg/dL High 70-99 [facility] Serum or plasma calcium diallo urement (mass/volume)Ordered By: Que Greene on 05-06-2025 Calcium [Mass/Vol] 10.0 mg/dL 7.6-11.0 [facility] Serum or plasma urea nitroge n measurement (mass/volume)Ordered By: Que Greene on 05-06-2025 Urea nitrogen [Mass/Vol] 17 mg/dL 4-19 [facility] Sodium levelOrdered By: Dustin Greene on 05-06-2025 Sodium [Moles/Vol] 135 mmol/L 133-145 [facility] White blood cell (WBC) count Ordered By: Que Greene on 05-06-2025 WBC (Bld) [#/Vol] 14.9 10*3/uL High 4.4-11.0 [facility] Bilirubin directOrdered By: Que Greene on 05-05-2025 Bilirubin.direct [Mass/Vol] 0.21 mg/dL 0.00-0.30 [facility] Bilirubin, totalOrdered By: Que Greene on 05-05-2025 Bilirubin [Mass/Vol] 0.45 mg/dL 0.00-1.30 [facility] Magnesium measurement (mass/ volume)Ordered By: Que Greene on 05-05-2025 Magnesium (Unsp spec) [Mass/Vol] 2.1 mg/dL 1.5-2.2 [facility] No Panel InformationOrdered By: Que Greene on 05-05-2025 21 U/L <32 [facility] Serum globulin measurementOr dered By: Que Greene on 05-05-2025 Globulin (S) [Mass/Vol] 3.1 g/dL 2.2-4.2 [facility] Serum or plasma alanine garza otransferase (ALT) measurementOrdered By: Que Greene on 05-05-2025 ALT [Catalytic activity/Vol] 21 U/L <35 [facility] Serum or plasma albumin diallo urement (mass/volume)Ordered By: Que Greene on 05-05-2025 Albumin [Mass/Vol] 3.8 g/dL 3.4-4.8 [facility] Serum or plasma alkaline pati sphatase measurementOrdered By: Que Greene on 05-05-2025 ALP [Catalytic activity/Vol] 76 U/L 35-104 [facility] Serum or plasma digoxin diallo urement (mass/volume)Ordered By: Que Greene on 05-05-2025 Digoxin [Mass/Vol] 1.15 ng/mL 0.00-2.00 [facility] Total proteinOrdered By: Danny Greene on 05-05-2025 Protein [Mass/Vol] 6.9 g/dL 5.9-8.4 [facility] Blood Gases by CPSon 025 Base excess Calc (Bld) [Moles/Vol] 19 mmol/L High -2 to +2 [facility] Comment on above: Performed By: #### L 9000.0800 ####[facility] [id number] [place], [address] Blood Gas Type ART Normal [facility] Comment on above: Performed By: #### L 8999.08 ####[facility] [address] [place], [address] CO2 [Moles/Vol] 44 mmol/L Normal [facility] Comment on above: Performed By: #### L 8999.0800 ####[facility] [id number] [place], [address] FI02 4.0 Normal [facility] Comment on above: Performed By: #### L 8999.0800 ####[facility] [address] [place], [address] HCO3 (Bld) [Moles/Vol] 42.1 mmol/L High 22-26 [facility] [facility] Comment on above: Performed By: #### L 8999.0800 ####[facility] [address] [place], [address] Mode Not entered Normal [facility] Comment on above: Performed By: #### L 8999.0800 ####[facility] [address] [place], [address] O2 Delivery Dev Cannula Normal [facility] Comment on above: Performed By: #### L 8999.0800 ####[facility] [address] [place], [address] pCO2 54.1 mmHg High 35-45 [facility] Comment on above: Performed By: #### L 8999.0800 ####[facility] [address] [place], [address] pH (Bld) 7.50 [pH] High 7.35-7.45 [facility] Comment on above: Performed By: #### L 8999.0800 ####[facility] [address] [place], [address] PO2 120 mmHG High 75-100 [facility] Comment on above: Performed By: #### L 9000.0800 ####[facility] [address] [place], [address] SITE L Radial Normal [facility] Comment on above: Performed By: #### L 9000.0800 ####[facility] [address] [place], [address] SO2 99 Normal 95-99 [facility] Comment on above: Performed By: #### L 9000.0800 ####[facility] [address] [place], [address] Blood base excess determinat ionOrdered By: Mitchell Brian on 04-30-2025 Base excess Calc (BldV) [Moles/Vol] 19 mmol/L High -2-2 [facility] Blood bicarbonate measuremen tOrdered By: Mitchell Brian on 04-30-2025 HCO3 (Bld) [Moles/Vol] 42.1 mmol/L High 22-26 [facility] Cardiology Visit Reporton Cardiology Visit Report Normal [facility] Measurement, pHOrdered By: Ángel Brian on 04-30-2025 pH (Unsp spec) 7.50 [pH] High 7.35-7.45 [facility] No Panel InformationOrdered By: Mitchell Brian on 04-30-2025 ART [facility] L Radial [facility] Not entered [facility] Cannula [facility] Total carbon dioxide measure mentOrdered By: Mitchell Brian on 04-30-2025 CO2 [Moles/Vol] 44 mmol/L [facility] Absolute lymphocyte countOrd ered By: Becca Dillard on 04-21-2025 Lymphocytes Auto (Unsp spec) [#/Vol] 0.78 10*3/uL Low 0.83-4.51 [facility] Absolute neutrophil countOrd ered By: Becca Dillard on 04-21-2025 Neutrophils (Bld) [#/Vol] 13.2 10*3/uL High 2.0-7.7 [facility] Anion gap in Serum or Plasma Ordered By: Becca Dillard on 04-21-2025 Anion gap [Moles/Vol] 9 mmol/L 5-15 [facility] Automated lymphocyte count a s percentage of total leukocytesOrdered By: Becca Dillard on 04-21-2025 Lymphocytes/100 WBC Auto (Unsp spec) 5.2 % Low 19-41 [facility] BUN/creatinine ratioOrdered By: Becca Dillard on 04-21-2025 Urea nitrogen/Creatinine [Mass ratio] 21.5 mg/mg High 10-20 [facility] Basic Metabolic Profile (BMP )on 04-21-2025 BUN/CRE 21.5 RATIO High 09-14 [facility] Comment on above: Performed By: #### L 100.0100, L500.2500, L503.7505 ####[facility] [address] [place], [address] Calcium [Mass/Vol] 9.0 mg/dL Normal 7.6-11.0 [facility] Comment on above: Performed By: #### L 100.0100, L500.2500, L503.7505 ####[facility] [address] [place], [address] Chloride [Moles/Vol] 90 mmol/L Low 98-108 [facility] Comment on above: Performed By: #### L 100.0100, L500.2500, L503.7505 ####[facility] [address] [place], [address] CO2 [Moles/Vol] 41.5 mmol/L High 21.0-32.0 [facility] Comment on above: Performed By: #### L 100.0100, L500.2500, L503.7505 ####[facility] [address] [place], [address] Creatinine [Mass/Vol] 0.73 mg/dL Normal 0.70-1.20 [facility] Comment on above: Performed By: #### L 100.0100, L500.2500, L503.7505 ####[facility] [address] [place], [address] GAP 9 Normal 5-15 [facility] Comment on above: Performed By: #### L 100.0100, L500.2500, L503.7505 ####[facility] [address] [place], [address] GFR/1.73 sq M.predicted among non-blacks MDRD (S/P/Bld) [Vol rate/Area] 88 mL/min/{1.73_m2} Normal >60 [facility] Comment on above: Result Comment: mL/m in/1.73m2 CKD-EPI Creatinine Equation (2020) Performed By: #### L 100.0100, L500.2500, L503.7505 ####[facility] [address] [place], [address] Glucose [Mass/Vol] 167 mg/dL High 70-99 [facility] Comment on above: Performed By: #### L 100.0100, L500.2500, L503.7505 ####[facility] [address] [place], [address] Potassium [Moles/Vol] 4.4 mmol/L Normal 3.3-5.1 [facility] Comment on above: Performed By: #### L 100.0100, L500.2500, L503.7505 ####[facility] [address] [place], [address] Sodium [Moles/Vol] 140 mmol/L Normal 133-145 [facility] Comment on above: Performed By: #### L 100.0100, L500.2500, L503.7505 ####[facility] [address] [place], [address] Urea nitrogen [Mass/Vol] 16 mg/dL Normal 4-19 [facility] Comment on above: Performed By: #### L 100.0100, L500.2500, L503.7505 ####[facility] [address] [place], [address] Basophil percentageOrdered B y: Becca Dillard on 04-21-2025 Basophils/100 WBC (Bld) 0.2 % 0-1 [facility] CBC W/Diff, Automatedon 03-27 Absolute Lymph 0.78 X10 3/uL Low 0.83-4.51 [facility] Comment on above: Performed By: #### L 100.0100, L500.2500, L503.7505 ####[facility] [address] [place], [address] Absolute Neut 13.2 X10 3/uL High 2.0-7.7 [facility] Comment on above: Performed By: #### L 100.0100, L500.2500, L503.7505 ####[facility] [address] [place], [address] Basophils/100 WBC (Bld) 0.2 % Normal 0-1 [facility] Comment on above: Performed By: #### L 100.0100, L500.2500, L503.7505 ####[facility] [address] [place], [address] Eosinophils/100 WBC (Bld) 0.1 % Normal 0-5 [facility] Comment on above: Performed By: #### L 100.0100, L500.2500, L503.7505 ####[facility] [address] [place], [address] Erythrocyte distribution width (RBC) [Ratio] 15.9 % High 11.6-14.6 [facility] Comment on above: Performed By: #### L 100.0100, L500.2500, L503.7505 ####[facility] [address] [place], [address] Hematocrit (Bld) [Volume fraction] 37.0 % Normal 37-47 [facility] Comment on above: Performed By: #### L 100.0100, L500.2500, L503.7505 ####[facility] [address] [place], [address] Hemoglobin (Bld) [Mass/Vol] 11.4 g/dL Low 12.0-15.0 [facility] Comment on above: Performed By: #### L 100.0100, L500.2500, L503.7505 ####[facility] [address] [place], [address] IG% 1.100 High 0.0-0.9 [facility] Comment on above: Result Comment: IG% - Immature Granulocytes (promyelocytes, myelocytes andmetamyelocytes) > 1% indicates that a LEFT SHIFT is Present. Performed By: #### L 100.0100, L500.2500, L503.7505 ####[facility] [address] [place], [address] Lymphocytes/100 WBC (Bld) 5.2 % Low 19-41 [facility] Comment on above: Performed By: #### L 100.0100, L500.2500, L503.7505 ####[facility] [address] [place], [address] MCH (RBC) [Entitic mass] 29.1 pg Normal 27.0-32.0 [facility] Comment on above: Performed By: #### L 100.0100, L500.2500, L503.7505 ####[facility] [address] [place], [address] MCHC (RBC) [Mass/Vol] 30.8 g/dL Low 32-36 [facility] Comment on above: Performed By: #### L 100.0100, L500.2500, L503.7505 ####[facility] [address] [place], [address] MCV (RBC) [Entitic vol] 94.4 fL Normal 81-99 [facility] Comment on above: Performed By: #### L 100.0100, L500.2500, L503.7505 ####[facility] [address] [place], [address] Monocytes/100 WBC (Bld) 5.4 % Normal 0-10 [facility] Comment on above: Performed By: #### L 100.0100, L500.2500, L503.7505 ####[facility] [address] [place], [address] Neutrophils/100 WBC (Bld) 88.0 % High 47-70 [facility] Comment on above: Performed By: #### L 100.0100, L500.2500, L503.7505 ####[facility] [address] [place], [address] Nucleated RBC (Bld) [#/Vol] 0 10*3/uL Normal 0-5 [facility] Comment on above: Performed By: #### L 100.0100, L500.2500, L503.7505 ####[facility] [address] [place], [address] Platelet mean volume (Bld) [Entitic vol] 9.7 fL Normal 6.2-12.0 [facility] Comment on above: Performed By: #### L 100.0100, L500.2500, L503.7505 ####[facility] [address] [place], [address] Platelets (Bld) [#/Vol] 267 10*3/uL Normal 150-450 [facility] Comment on above: Performed By: #### L 100.0100, L500.2500, L503.7505 ####[facility] [address] [place], [address] RBC (Bld) [#/Vol] 3.92 10*6/uL Low 4.2-5.4 [facility] Comment on above: Performed By: #### L 100.0100, L500.2500, L503.7505 ####[facility] [address] [place], [address] RDW SD 55.5 fl High 35.1-43.9 [facility] Comment on above: Performed By: #### L 100.0100, L500.2500, L503.7505 ####[facility] [address] [place], [address] WBC (Bld) [#/Vol] 15.1 10*3/uL High 4.4-11.0 [facility] Comment on above: Performed By: #### L 100.0100, L500.2500, L503.7505 ####[facility] [address] [place], [address] Carbon dioxide, total [Moles /volume] in Central venous bloodOrdered By: Becca Dillard on 04-21-2025 CO2 [Moles/Vol] 41.5 mmol/L High 21.0-32.0 [facility] Chloride assayOrdered By: Sergio Dillard on 04-21-2025 Chloride [Moles/Vol] 90 mmol/L Low 98-108 [facility] Eosinophil percentageOrdered By: Becca Dillard on 04-21-2025 Eosinophils/100 WBC (Bld) 0.1 % 0-5 [facility] Erythrocyte distribution wid th ratioOrdered By: Becca Dillard on 04-21-2025 Erythrocyte distribution width (RBC) [Ratio] 15.9 % High 11.6-14.6 [facility] Erythrocyte distribution wid th standard deviationOrdered By: Becca Dillard on 04-21-2025 Erythrocyte distribution width (RBC) [Ratio] 55.5 fl High 35.1-43.9 [facility] Glomerular filtration rate ( GFR) estimation/1.73 sq m using serum, plasma, or whole bOrdered By: Becca Dillard on 04-21-2025 GFR/1.73 sq M.predicted among non-blacks MDRD (S/P/Bld) [Vol rate/Area] 88 mL/min/{1.73_m2} >60 [facility] Comment on above: mL/min/1.73m2 CKD-EP I Creatinine Equation (2020) Hematocrit Auto (Bld) [Volum e fraction]Ordered By: Becca Dillard on 04-21-2025 Hematocrit (Bld) [Volume fraction] 37.0 % 37-47 [facility] Hemoglobin measurementOrdere d By: Becca Dillard on 04-21-2025 Hemoglobin (Bld) [Mass/Vol] 11.4 g/dL Low 12.0-15.0 [facility] Immature granulocytes/100 WB C Auto (Bld)Ordered By: Becca Dillard on 04-21-2025 Immature granulocytes/100 WBC (Bld) 1.100 % High 0.0-0.9 [facility] Comment on above: IG% - Immature Granu locytes (promyelocytes, myelocytes and metamyelocytes) > 1% indicates that a LEFT SHIFT is Present. L503.7505on 04-21-2025 Natriuretic peptide B (Bld) [Mass/Vol] 771 pg/mL Normal <=900 [facility] Comment on above: Result Comment: Hear t Failure Unlikely: < 300 pg/mLHeart Failure Likely< 50 Years: > 450 pg/mL50-75 Years: > 900 pg/mL>75 Years: > 1800 pg/mL Performed By: #### L 100.0100, L500.2500, L503.7505 ####[facility] [address] [place], [address] MCV (mean corpuscular volume ) determinationOrdered By: Becca Dillard on 04-21-2025 MCV (RBC) [Entitic vol] 94.4 fL 81-99 [facility] Mean corpuscular hemoglobin (MCH) determinationOrdered By: Becca Dillard on 04-21-2025 MCH (RBC) [Entitic mass] 29.1 pg 27.0-32.0 [facility] Mean corpuscular hemoglobin concentration (MCHC) determinationOrdered By: Becca Dillard on 04-21-2025 MCHC (RBC) [Mass/Vol] 30.8 g/dL Low 32-36 [facility] Mean platelet volume determi nationOrdered By: Becca Dillard on 04-21-2025 Platelet mean volume (Bld) [Entitic vol] 9.7 fL 6.2-12.0 [facility] Monocyte percentageOrdered B y: Becca Dillard on 04-21-2025 Monocytes/100 WBC (Bld) 5.4 % 0-10 [facility] Natriuretic peptide.B prohor inessa N-Terminal [Mass/volume] in Serum or PlasmaOrdered By: Becca Dillard on 04-21-2025 Natriuretic peptide.B prohormone N-Terminal [Mass/Vol] 771 pg/mL <900 [facility] Comment on above: Heart Failure Unlike ly: < 300 pg/mLHeart Failure Likely< 50 Years: > 450 pg/mL50-75 Years: > 900 pg/mL>75 Years: > 1800 pg/mL Neutrophil percentageOrdered By: Becca Dillard on 04-21-2025 Neutrophils/100 WBC (Bld) 88.0 % High 47-70 [facility] Nucleated red blood cell per centageOrdered By: Becca Dillard on 04-21-2025 Nucleated RBC/100 WBC (Bld) [Ratio] 0 % 0-5 [facility] Platelet countOrdered By: Sergio Dillard on 04-21-2025 Platelets (Bld) [#/Vol] 267 10*3/uL 150-450 [facility] Potassium measurement (mass/ volume)Ordered By: Becca Dillard on 04-21-2025 Potassium (Unsp spec) [Mass/Vol] 4.4 mmol/L 3.3-5.1 [facility] RBC Auto (Bld) [#/Vol]Ordere d By: Becca Dillard on 04-21-2025 RBC (Bld) [#/Vol] 3.92 10*6/uL Low 4.2-5.4 [facility] Serum creatinine measurement (mass/volume)Ordered By: Becca Dillard on 04-21-2025 Creatinine [Mass/Vol] 0.73 mg/dL 0.70-1.20 [facility] Serum glucose measurement (m ass/volume)Ordered By: Becca Dillard on 04-21-2025 Glucose [Mass/Vol] 167 mg/dL High 70-99 [facility] Serum or plasma calcium diallo urement (mass/volume)Ordered By: Becca Dillard on 04-21-2025 Calcium [Mass/Vol] 9.0 mg/dL 7.6-11.0 [facility] Serum or plasma urea nitroge n measurement (mass/volume)Ordered By: Becca Dillard on 04-21-2025 Urea nitrogen [Mass/Vol] 16 mg/dL 4-19 [facility] Sodium levelOrdered By: Faith Dillard on 04-21-2025 Sodium [Moles/Vol] 140 mmol/L 133-145 [facility] White blood cell (WBC) count Ordered By: Becca Dillard on 04-21-2025 WBC (Bld) [#/Vol] 15.1 10*3/uL High 4.4-11.0 [facility] Culture, Blood (WB)on 2024 CUB Blood cultures x2, from two different sites No growth in 5 days. Normal [facility] Comment on above: Performed By: #### M 200.1000 ####[facility] [address] [place], [place], [id number] Absolute lymphocyte countOrd ered By: Heath Silva on 04-10-2025 Lymphocytes Auto (Unsp spec) [#/Vol] 0.82 10*3/uL Low 0.83-4.51 [facility] Absolute neutrophil countOrd ered By: Heath Silva on 04-10-2025 Neutrophils (Bld) [#/Vol] 19.1 10*3/uL High 2.0-7.7 [facility] Anion gap in Serum or Plasma Ordered By: Ken Vieyra on 04-10-2025 Anion gap [Moles/Vol] 7 mmol/L 5-15 [facility] Automated lymphocyte count a s percentage of total leukocytesOrdered By: Heath Silva on 04-10-2025 Lymphocytes/100 WBC Auto (Unsp spec) 3.8 % Low 19-41 [facility] BUN/creatinine ratioOrdered By: Ken Vieyra on 04-10-2025 Urea nitrogen/Creatinine [Mass ratio] 44.3 mg/mg High 10-20 [facility] Basic Metabolic Profile (BMP )on 04-10-2025 BUN/CRE 44.3 RATIO High 10-20 [facility] Comment on above: Performed By: #### L 500.2500 ####[facility] [address] [place], [address] Calcium [Mass/Vol] 8.9 mg/dL Normal 7.6-11.0 [facility] Comment on above: Performed By: #### L 500.2500 ####[facility] [address] [place], [address] Chloride [Moles/Vol] 89 mmol/L Low 98-108 [facility] Comment on above: Performed By: #### L 500.2500 ####[facility] [address] [place], [address] CO2 [Moles/Vol] 40.6 mmol/L High 21.0-32.0 [facility] Comment on above: Performed By: #### L 500.2500 ####[facility] [address] [place], [address] Creatinine [Mass/Vol] 0.79 mg/dL Normal 0.70-1.20 [facility] Comment on above: Performed By: #### L 500.2500 ####[facility] [address] [place], [address] ECRCL 76.43 ml/min Normal 50-250 [facility] Comment on above: Performed By: #### L 500.2500 ####[facility] [address] [place], [address] GAP 7 Normal 5-15 [facility] Comment on above: Performed By: #### L 500.2500 ####[facility] [address] [place], [address] GFR/1.73 sq M.predicted among non-blacks MDRD (S/P/Bld) [Vol rate/Area] 80 mL/min/{1.73_m2} Normal >60 [facility] Comment on above: Result Comment: mL/m in/1.73m2 CKD-EPI Creatinine Equation (2020) Performed By: #### L 500.2500 ####[facility] [address] [place], [address] Glucose [Mass/Vol] 107 mg/dL High 70-99 [facility] Comment on above: Performed By: #### L 500.2500 ####[facility] [address] [place], [address] Potassium [Moles/Vol] 4.0 mmol/L Normal 3.3-5.1 [facility] Comment on above: Performed By: #### L 500.2500 ####[facility] [address] [place], [address] Sodium [Moles/Vol] 136 mmol/L Normal 133-145 [facility] Comment on above: Performed By: #### L 500.2500 ####[facility] [address] [place], [address] Urea nitrogen [Mass/Vol] 35 mg/dL High 4-19 [facility] Comment on above: Performed By: #### L 500.2500 ####[facility] [address] [place], [address] Basophil percentageOrdered B y: Heath Silva on 04-10-2025 Basophils/100 WBC (Bld) 0.1 % 0-1 [facility] Bedside Glucoseon 04-10-2025 FINGERSTICK GLU 200 mg/dL High 74-106 [facility] Comment on above: Result Comment: MAURI IVORY OF PATIENT CARE PER NURSING PROTOCOL Performed By: #### L 501.080 ####[facility] [address] [place], [address] FINGERSTICK GLU 109 mg/dL High 74-106 [facility] Comment on above: Result Comment: MAURI IVORY OF PATIENT CARE PER NURSING PROTOCOL Performed By: #### L 501.080 ####[facility] [address] [place], [address] CBC W/Diff, Automatedon 05-1 -2024 Absolute Lymph 0.82 X10 3/uL Low 0.83-4.51 [facility] Comment on above: Performed By: #### L 100.0100 ####[facility] [address] [place], [address] Absolute Neut 19.1 X10 3/uL High 2.0-7.7 [facility] Comment on above: Performed By: #### L 100.0100 ####[facility] [address] [place], [address] Basophils/100 WBC (Bld) 0.1 % Normal 0-1 [facility] Comment on above: Performed By: #### L 100.0100 ####[facility] [address] [place], [address] Eosinophils/100 WBC (Bld) 0.0 % Normal 0-5 [facility] Comment on above: Performed By: #### L 100.0100 ####[facility] [address] [place], [address] Erythrocyte distribution width (RBC) [Ratio] 15.7 % High 11.6-14.6 [facility] Comment on above: Performed By: #### L 100.0100 ####[facility] [address] [place], [address] Hematocrit (Bld) [Volume fraction] 36.9 % Low 37-47 [facility] Comment on above: Performed By: #### L 100.0100 ####[facility] [address] [place], [address] Hemoglobin (Bld) [Mass/Vol] 11.6 g/dL Low 12.0-15.0 [facility] Comment on above: Performed By: #### L 100.0100 ####[facility] [address] [place], [address] IG% 0.700 Normal 0.0-0.9 [facility] Comment on above: Result Comment: IG% - Immature Granulocytes (promyelocytes, myelocytes andmetamyelocytes) > 1% indicates that a LEFT SHIFT is Present. Performed By: #### L 100.0100 ####[facility] [address] [place], [address] Lymphocytes/100 WBC (Bld) 3.8 % Low 19-41 [facility] Comment on above: Performed By: #### L 100.0100 ####[facility] [address] [place], [address] MCH (RBC) [Entitic mass] 28.3 pg Normal 27.0-32.0 [facility] Comment on above: Performed By: #### L 100.0100 ####[facility] [address] [place], [address] MCHC (RBC) [Mass/Vol] 31.4 g/dL Low 32-36 [facility] Comment on above: Performed By: #### L 100.0100 ####[facility] [address] [place], [address] MCV (RBC) [Entitic vol] 90.0 fL Normal 81-99 [facility] Comment on above: Performed By: #### L 100.0100 ####[facility] [address] [place], [address] Monocytes/100 WBC (Bld) 6.1 % Normal 0-10 [facility] Comment on above: Performed By: #### L 100.0100 ####[facility] [address] [place], [address] Neutrophils/100 WBC (Bld) 89.3 % High 47-70 [facility] Comment on above: Performed By: #### L 100.0100 ####[facility] [address] [place], [address] Nucleated RBC (Bld) [#/Vol] 0 10*3/uL Normal 0-5 [facility] Comment on above: Performed By: #### L 100.0100 ####[facility] [address] [place], [address] Platelet mean volume (Bld) [Entitic vol] 10.5 fL Normal 6.2-12.0 [facility] Comment on above: Performed By: #### L 100.0100 ####[facility] [address] [place], [address] Platelets (Bld) [#/Vol] 270 10*3/uL Normal 150-450 [facility] Comment on above: Performed By: #### L 100.0100 ####[facility] [address] [place], [address] RBC (Bld) [#/Vol] 4.10 10*6/uL Low 4.2-5.4 [facility] Comment on above: Performed By: #### L 100.0100 ####[facility] [address] [place], [address] RDW SD 51.3 fl High 35.1-43.9 [facility] Comment on above: Performed By: #### L 100.0100 ####[facility] [address] [place], [address] WBC (Bld) [#/Vol] 21.4 10*3/uL High 4.4-11.0 [facility] Comment on above: Performed By: #### L 100.0100 ####[facility] [address] [place], [address] Carbon dioxide, total [Moles /volume] in Central venous bloodOrdered By: Ken Vieyra on 04-10-2025 CO2 [Moles/Vol] 40.6 mmol/L High 21.0-32.0 [facility] Chloride assayOrdered By: Bel Vieyra on 04-10-2025 Chloride [Moles/Vol] 89 mmol/L Low 98-108 [facility] Discharge Instructionon 03-26 Discharge Instruction Normal [facility] Eosinophil percentageOrdered By: Heath Silva on 04-10-2025 Eosinophils/100 WBC (Bld) 0.0 % 0-5 [facility] Erythrocyte distribution wid th ratioOrdered By: Heath Silva on 04-10-2025 Erythrocyte distribution width (RBC) [Ratio] 15.7 % High 11.6-14.6 [facility] Erythrocyte distribution wid th standard deviationOrdered By: Heath Silva on 04-10-2025 Erythrocyte distribution width (RBC) [Ratio] 51.3 fl High 35.1-43.9 [facility] Glomerular filtration rate ( GFR) estimation/1.73 sq m using serum, plasma, or whole bOrdered By: Ken Veiyra on 04-10-2025 GFR/1.73 sq M.predicted among non-blacks MDRD (S/P/Bld) [Vol rate/Area] 80 mL/min/{1.73_m2} >60 [facility] Comment on above: mL/min/1.73m2 CKD-EP I Creatinine Equation (2020) Glucose measurement at bedsi deOrdered By: Geoff Galvan on 04-10-2025 Glucose [Mass/Vol] 200 mg/dL High 74-106 [facility] Comment on above: MANAGEMENT OF PATIEN T CARE PER NURSING PROTOCOL Hematocrit Auto (Bld) [Volum e fraction]Ordered By: Heath Silva on 04-10-2025 Hematocrit (Bld) [Volume fraction] 36.9 % Low 37-47 [facility] Hemoglobin measurementOrdere d By: Heath Silva on 04-10-2025 Hemoglobin (Bld) [Mass/Vol] 11.6 g/dL Low 12.0-15.0 [facility] Immature granulocytes/100 WB C Auto (Bld)Ordered By: Heath Silva on 04-10-2025 Immature granulocytes/100 WBC (Bld) 0.700 % 0.0-0.9 [facility] Comment on above: IG% - Immature Granu locytes (promyelocytes, myelocytes and metamyelocytes) > 1% indicates that a LEFT SHIFT is Present. MCV (mean corpuscular volume ) determinationOrdered By: Heath Silva on 04-10-2025 MCV (RBC) [Entitic vol] 90.0 fL 81-99 [facility] Mean corpuscular hemoglobin (MCH) determinationOrdered By: Heath Silva on 04-10-2025 MCH (RBC) [Entitic mass] 28.3 pg 27.0-32.0 [facility] Mean corpuscular hemoglobin concentration (MCHC) determinationOrdered By: Heath Silva on 04-10-2025 MCHC (RBC) [Mass/Vol] 31.4 g/dL Low 32-36 [facility] Mean platelet volume determi nationOrdered By: Heath Silva on 04-10-2025 Platelet mean volume (Bld) [Entitic vol] 10.5 fL 6.2-12.0 [facility] Monocyte percentageOrdered B y: Heath Silva on 04-10-2025 Monocytes/100 WBC (Bld) 6.1 % 0-10 [facility] Neutrophil percentageOrdered By: Heath Silva on 04-10-2025 Neutrophils/100 WBC (Bld) 89.3 % High 47-70 [facility] Nucleated red blood cell per centageOrdered By: Heath Silva on 04-10-2025 Nucleated RBC/100 WBC (Bld) [Ratio] 0 % 0-5 [facility] Platelet countOrdered By: Sky Silva on 04-10-2025 Platelets (Bld) [#/Vol] 270 10*3/uL 150-450 [facility] Potassium measurement (mass/ volume)Ordered By: Ken Vieyra on 04-10-2025 Potassium (Unsp spec) [Mass/Vol] 4.0 mmol/L 3.3-5.1 [facility] RBC Auto (Bld) [#/Vol]Ordere d By: Heath Silva on 04-10-2025 RBC (Bld) [#/Vol] 4.10 10*6/uL Low 4.2-5.4 [facility] Serum creatinine measurement (mass/volume)Ordered By: Ken Vieyra on 04-10-2025 Creatinine [Mass/Vol] 0.79 mg/dL 0.70-1.20 [facility] Serum glucose measurement (m ass/volume)Ordered By: Ken Vieyra on 04-10-2025 Glucose [Mass/Vol] 107 mg/dL High 70-99 [facility] Serum or plasma calcium diallo urement (mass/volume)Ordered By: Ken Vieyra on 04-10-2025 Calcium [Mass/Vol] 8.9 mg/dL 7.6-11.0 [facility] Serum or plasma urea nitroge n measurement (mass/volume)Ordered By: Ken Vieyra on 04-10-2025 Urea nitrogen [Mass/Vol] 35 mg/dL High 4-19 [facility] Sodium levelOrdered By: Anton Vieyra on 04-10-2025 Sodium [Moles/Vol] 136 mmol/L 133-145 [facility] White blood cell (WBC) count Ordered By: Heath Silva on 04-10-2025 WBC (Bld) [#/Vol] 21.4 10*3/uL High 4.4-11.0 [facility] Basic Metabolic Profile (BMP )on 04-09-2025 BUN/CRE 46.9 RATIO High 10-20 [facility] Comment on above: Performed By: #### L 500.2500 ####[facility] [address] [place], [address] Calcium [Mass/Vol] 9.1 mg/dL Normal 7.6-11.0 [facility] Comment on above: Performed By: #### L 500.2500 ####[facility] [address] [place], [address] Chloride [Moles/Vol] 91 mmol/L Low 98-108 [facility] Comment on above: Performed By: #### L 500.2500 ####[facility] [address] [place], [address] CO2 [Moles/Vol] 40.6 mmol/L High 21.0-32.0 [facility] Comment on above: Performed By: #### L 500.2500 ####[facility] [address] [place], [address] Creatinine [Mass/Vol] 0.67 mg/dL Low 0.70-1.20 [facility] Comment on above: Performed By: #### L 500.2500 ####[facility] [address] [place], [address] ECRCL 76.39 ml/min Normal 50-250 [facility] Comment on above: Performed By: #### L 500.2500 ####[facility] [address] [place], [address] GAP 7 Normal 5-15 [facility] Comment on above: Performed By: #### L 500.2500 ####[facility] [address] [place], [address] GFR/1.73 sq M.predicted among non-blacks MDRD (S/P/Bld) [Vol rate/Area] 93 mL/min/{1.73_m2} Normal >60 [facility] Comment on above: Result Comment: mL/m in/1.73m2 CKD-EPI Creatinine Equation (2020) Performed By: #### L 500.2500 ####[facility] [address] [place], [address] Glucose [Mass/Vol] 134 mg/dL High 70-99 [facility] Comment on above: Performed By: #### L 500.2500 ####[facility] [address] [place], [address] Potassium [Moles/Vol] 4.0 mmol/L Normal 3.3-5.1 [facility] Comment on above: Performed By: #### L 500.2500 ####[facility] [address] [place], [address] Sodium [Moles/Vol] 139 mmol/L Normal 133-145 [facility] Comment on above: Performed By: #### L 500.2500 ####[facility] [address] [place], [address] Urea nitrogen [Mass/Vol] 32 mg/dL High 4-19 [facility] Comment on above: Performed By: #### L 500.2500 ####[facility] [address] [place], [address] Bedside Glucoseon 04-09-2025 FINGERSTICK GLU 242 mg/dL High 74-106 [facility] Comment on above: Result Comment: MAURI GEMENT OF PATIENT CARE PER NURSING PROTOCOL Performed By: #### L 501.080 ####[facility] [address] [place], [address] FINGERSTICK GLU 91 mg/dL Normal 74-106 [facility] Comment on above: Result Comment: MAURI GEMENT OF PATIENT CARE PER NURSING PROTOCOL Performed By: #### L 501.080 ####[facility] [address] [place], [address] FINGERSTICK GLU 277 mg/dL High 74-106 [facility] Comment on above: Result Comment: MAURI GEMENT OF PATIENT CARE PER NURSING PROTOCOL Performed By: #### L 501.080 ####[facility] [address] [place], [address] FINGERSTICK GLU 157 mg/dL High 74-106 [facility] Comment on above: Result Comment: MAURI GEMENT OF PATIENT CARE PER NURSING PROTOCOL Performed By: #### L 501.080 ####[facility] [address] [place], [address] FINGERSTICK GLU 239 mg/dL High 74-106 [facility] Comment on above: Result Comment: MAURI IVORY OF PATIENT CARE PER NURSING PROTOCOL Performed By: #### L 501.080 ####[facility] [address] [place], [address] CBC W/Diff, Automatedon 05-1 -2024 Absolute Lymph 0.37 X10 3/uL Low 0.83-4.51 [facility] Comment on above: Performed By: #### L 100.0100 ####[facility] [address] [place], [address] Absolute Neut 19.4 X10 3/uL High 2.0-7.7 [facility] Comment on above: Performed By: #### L 100.0100 ####[facility] [address] [place], [address] Basophils/100 WBC (Bld) 0.1 % Normal 0-1 [facility] Comment on above: Performed By: #### L 100.0100 ####[facility] [address] [place], [address] Eosinophils/100 WBC (Bld) 0.0 % Normal 0-5 [facility] Comment on above: Performed By: #### L 100.0100 ####[facility] [address] [place], [address] Erythrocyte distribution width (RBC) [Ratio] 15.9 % High 11.6-14.6 [facility] Comment on above: Performed By: #### L 100.0100 ####[facility] [address] [place], [address] Hematocrit (Bld) [Volume fraction] 39.9 % Normal 37-47 [facility] Comment on above: Performed By: #### L 100.0100 ####[facility] [address] [place], [address] Hemoglobin (Bld) [Mass/Vol] 12.5 g/dL Normal 12.0-15.0 [facility] Comment on above: Performed By: #### L 100.0100 ####[facility] [address] [place], [address] IG% 0.700 Normal 0.0-0.9 [facility] Comment on above: Result Comment: IG% - Immature Granulocytes (promyelocytes, myelocytes andmetamyelocytes) > 1% indicates that a LEFT SHIFT is Present. Performed By: #### L 100.0100 ####[facility] [address] [place], [address] Lymphocytes/100 WBC (Bld) 1.8 % Low 19-41 [facility] Comment on above: Performed By: #### L 100.0100 ####[facility] [address] [place], [address] MCH (RBC) [Entitic mass] 28.8 pg Normal 27.0-32.0 [facility] Comment on above: Performed By: #### L 100.0100 ####[facility] [address] [place], [address] MCHC (RBC) [Mass/Vol] 31.3 g/dL Low 32-36 [facility] Comment on above: Performed By: #### L 100.0100 ####[facility] [address] [place], [address] MCV (RBC) [Entitic vol] 91.9 fL Normal 81-99 [facility] Comment on above: Performed By: #### L 100.0100 ####[facility] [address] [place], [address] Monocytes/100 WBC (Bld) 3.3 % Normal 0-10 [facility] Comment on above: Performed By: #### L 100.0100 ####[facility] [address] [place], [address] Neutrophils/100 WBC (Bld) 94.1 % High 47-70 [facility] Comment on above: Performed By: #### L 100.0100 ####[facility] [address] [place], [address] Nucleated RBC (Bld) [#/Vol] 0 10*3/uL Normal 0-5 [facility] Comment on above: Performed By: #### L 100.0100 ####[facility] [address] [place], [address] Platelet mean volume (Bld) [Entitic vol] 10.0 fL Normal 6.2-12.0 [facility] Comment on above: Performed By: #### L 100.0100 ####[facility] [address] [place], [address] Platelets (Bld) [#/Vol] 259 10*3/uL Normal 150-450 [facility] Comment on above: Performed By: #### L 100.0100 ####[facility] [address] [place], [address] RBC (Bld) [#/Vol] 4.34 10*6/uL Normal 4.2-5.4 [facility] Comment on above: Performed By: #### L 100.0100 ####[facility] [address] [place], [address] RDW SD 52.8 fl High 35.1-43.9 [facility] Comment on above: Performed By: #### L 100.0100 ####[facility] [address] [place], [address] WBC (Bld) [#/Vol] 20.6 10*3/uL High 4.4-11.0 [facility] Comment on above: Performed By: #### L 100.0100 ####[facility] [address] [place], [address] Anion gap in Serum or Plasma Ordered By: Ken Vieyra on 04-08-2025 Anion gap [Moles/Vol] 9 mmol/L 5-15 [facility] BUN/creatinine ratioOrdered By: Ken Vieyra on 04-08-2025 Urea nitrogen/Creatinine [Mass ratio] 40.4 mg/mg High - [facility] Basic Metabolic Profile (BMP )on 04-08-2025 BUN/CRE 40.4 RATIO High - [facility] Comment on above: Performed By: #### L 500.2500 ####[facility] [address] [place], [address] Calcium [Mass/Vol] 8.9 mg/dL Normal 7.6-11.0 [facility] Comment on above: Performed By: #### L 500.2500 ####[facility] [address] [place], [address] Chloride [Moles/Vol] 87 mmol/L Low 98-108 [facility] Comment on above: Performed By: #### L 500.2500 ####[facility] [address] [place], [address] CO2 [Moles/Vol] 43.6 mmol/L High 21.0-32.0 [facility] Comment on above: Performed By: #### L 500.2500 ####[facility] [address] [place], [address] Creatinine [Mass/Vol] 0.82 mg/dL Normal 0.70-1.20 [facility] Comment on above: Performed By: #### L 500.2500 ####[facility] [address] [place], [address] ECRCL 74.56 ml/min Normal 50-250 [facility] Comment on above: Performed By: #### L 500.2500 ####[facility] [address] [place], [address] GAP 9 Normal 5-15 [facility] Comment on above: Performed By: #### L 500.2500 ####[facility] [address] [place], [address] GFR/1.73 sq M.predicted among non-blacks MDRD (S/P/Bld) [Vol rate/Area] 77 mL/min/{1.73_m2} Normal >60 [facility] Comment on above: Result Comment: mL/m in/1.73m2 CKD-EPI Creatinine Equation (2020) Performed By: #### L 500.2500 ####[facility] [address] [place], [address] Glucose [Mass/Vol] 149 mg/dL High 70-99 [facility] Comment on above: Performed By: #### L 500.2500 ####[facility] [address] [place], [address] Potassium [Moles/Vol] 2.8 mmol/L Low 3.3-5.1 [facility] Comment on above: Performed By: #### L 500.2500 ####[facility] [address] [place], [address] Sodium [Moles/Vol] 139 mmol/L Normal 133-145 [facility] Comment on above: Performed By: #### L 500.2500 ####[facility] [address] [place], [address] Urea nitrogen [Mass/Vol] 33 mg/dL High 4-19 [facility] Comment on above: Performed By: #### L 500.2500 ####[facility] [address] [place], [address] Bedside Glucoseon 04-08-2025 FINGERSTICK GLU 81 mg/dL Normal 74-106 [facility] Comment on above: Result Comment: MAURI IVORY OF PATIENT CARE PER NURSING PROTOCOL Performed By: #### L 501.080 ####[facility] [address] [place], [address] FINGERSTICK GLU 175 mg/dL High 74-106 [facility] Comment on above: Result Comment: MAURI GEMENT OF PATIENT CARE PER NURSING PROTOCOL Performed By: #### L 501.080 ####[facility] [address] [place], [address] FINGERSTICK GLU 289 mg/dL High 74-106 [facility] Comment on above: Result Comment: MAURI GEMENT OF PATIENT CARE PER NURSING PROTOCOL Performed By: #### L 501.080 ####[facility] [address] [place], [address] Blood Gases by CPSon 025 Results To de joelmariaelena Montiel [facility] Comment on above: Performed By: #### L 9000.0800 ####[facility] [address] [place], [address] Carbon dioxide, total [Moles /volume] in Central venous bloodOrdered By: Ken Vieyra on 04-08-2025 CO2 [Moles/Vol] 43.6 mmol/L High 21.0-32.0 [facility] Chloride assayOrdered By: Bel Vieyra on 04-08-2025 Chloride [Moles/Vol] 87 mmol/L Low 98-108 [facility] Glomerular filtration rate ( GFR) estimation/1.73 sq m using serum, plasma, or whole bOrdered By: Ken Vieyra on 04-08-2025 GFR/1.73 sq M.predicted among non-blacks MDRD (S/P/Bld) [Vol rate/Area] 77 mL/min/{1.73_m2} >60 [facility] Comment on above: mL/min/1.73m2 CKD-EP I Creatinine Equation (2020) [facility] deOrdered By: Ken Vieyra on 04-08-2025 Glucose [Mass/Vol] 289 mg/dL High 74-106 [facility] Comment on above: MANAGEMENT OF PATIEN T CARE PER NURSING PROTOCOL Magnesiumon 04-08-2025 Magnesium [Mass/Vol] 2.5 mg/dL High 1.5-2.2 [facility] Comment on above: Performed By: #### L 501.2300, L501.5200 ####[facility] [address] [place], [place], [address] Magnesium measurement (mass/ volume)Ordered By: Ken Vieyra on 04-08-2025 Magnesium (Unsp spec) [Mass/Vol] 2.5 mg/dL High 1.5-2.2 [facility] Phosphoruson 04-08-2025 Phosphate [Mass/Vol] 4.4 mg/dL Normal 2.7-4.5 [facility] Comment on above: Performed By: #### L 501.2300, L501.5200 ####[facility] [address] [place], [place], [address] Potassium measurement (mass/ volume)Ordered By: Ken Vieyra on 04-08-2025 Potassium (Unsp spec) [Mass/Vol] 2.8 mmol/L Low 3.3-5.1 [facility] Serum creatinine measurement (mass/volume)Ordered By: Ken Vieyra on 04-08-2025 Creatinine [Mass/Vol] 0.82 mg/dL 0.70-1.20 [facility] Serum glucose measurement (m ass/volume)Ordered By: Ken Vieyra on 04-08-2025 Glucose [Mass/Vol] 149 mg/dL High 70-99 [facility] Serum or plasma calcium diallo urement (mass/volume)Ordered By: Ken Vieyra on 04-08-2025 Calcium [Mass/Vol] 8.9 mg/dL 7.6-11.0 [facility] Serum or plasma urea nitroge n measurement (mass/volume)Ordered By: Ken Vieyra on 04-08-2025 Urea nitrogen [Mass/Vol] 33 mg/dL High 4-19 [facility] Sodium levelOrdered By: Anton Vieyra on 04-08-2025 Sodium [Moles/Vol] 139 mmol/L 133-145 [facility] Absolute lymphocyte countOrd ered By: Kengrace Vieyra on 04-07-2025 Lymphocytes Auto (Unsp spec) [#/Vol] 0.46 10*3/uL Low 0.83-4.51 [facility] Absolute neutrophil countOrd ered By: Kengrace Vieyra on 04-07-2025 Neutrophils (Bld) [#/Vol] 30.0 10*3/uL High 2.0-7.7 [facility] Automated lymphocyte count a s percentage of total leukocytesOrdered By: Kenelza Vieyra on 04-07-2025 Lymphocytes/100 WBC Auto (Unsp spec) 1.4 % Low 19-41 [facility] Basic Metabolic Profile (BMP )on 04-07-2025 BUN/CRE 31.1 RATIO High 10-20 [facility] Comment on above: Performed By: #### L 500.2500, L100.0100 ####[facility] [address] [place], [address] Calcium [Mass/Vol] 9.4 mg/dL Normal 7.6-11.0 [facility] Comment on above: Performed By: #### L 500.2500, L100.0100 ####[facility] [address] [place], [address] Chloride [Moles/Vol] 88 mmol/L Low 98-108 [facility] Comment on above: Performed By: #### L 500.2500, L100.0100 ####[facility] [address] [place], [address] CO2 [Moles/Vol] 41.0 mmol/L High 21.0-32.0 [facility] Comment on above: Performed By: #### L 500.2500, L100.0100 ####[facility] [address] [place], [address] Creatinine [Mass/Vol] 1.07 mg/dL Normal 0.70-1.20 [facility] Comment on above: Performed By: #### L 500.2500, L100.0100 ####[facility] [address] [place], [address] ECRCL 57.45 ml/min Normal 50-250 [facility] Comment on above: Performed By: #### L 500.2500, L100.0100 ####[facility] [address] [place], [address] GAP 12 Normal 5-15 [facility] Comment on above: Performed By: #### L 500.2500, L100.0100 ####[facility] [address] [place], [address] GFR/1.73 sq M.predicted among non-blacks MDRD (S/P/Bld) [Vol rate/Area] 56 mL/min/{1.73_m2} Low >60 [facility] Comment on above: Result Comment: mL/m in/1.73m2 CKD-EPI Creatinine Equation (2020) Performed By: #### L 500.2500, L100.0100 ####[facility] [address] [place], [address] Glucose [Mass/Vol] 187 mg/dL High 70-99 [facility] Comment on above: Performed By: #### L 500.2500, L100.0100 ####[facility] [address] [place], [address] Potassium [Moles/Vol] 3.5 mmol/L Normal 3.3-5.1 [facility] Comment on above: Performed By: #### L 500.2500, L100.0100 ####[facility] [address] [place], [address] Sodium [Moles/Vol] 141 mmol/L Normal 133-145 [facility] Comment on above: Performed By: #### L 500.2500, L100.0100 ####[facility] [address] [place], [address] Urea nitrogen [Mass/Vol] 33 mg/dL High 4-19 [facility] Comment on above: Performed By: #### L 500.2500, L100.0100 ####[facility] [address] [place], [address] Basophil percentageOrdered B y: Ken Vieyra on 04-07-2025 Basophils/100 WBC (Bld) 0.2 % 0-1 [facility] Bedside Glucoseon 04-07-2025 FINGERSTICK GLU 239 mg/dL High 74-106 [facility] Comment on above: Result Comment: MAURI GEMENT OF PATIENT CARE PER NURSING PROTOCOL Performed By: #### L 501.080 ####[facility] [address] [place], [address] FINGERSTICK GLU 128 mg/dL High 74-106 [facility] Comment on above: Result Comment: MAURI GEMENT OF PATIENT CARE PER NURSING PROTOCOL Performed By: #### L 501.080 ####[facility] [address] [place], [address] FINGERSTICK GLU 161 mg/dL High 74-106 [facility] Comment on above: Result Comment: MAURI GEMENT OF PATIENT CARE PER NURSING PROTOCOL Performed By: #### L 501.080 ####[facility] [address] [place], [address] FINGERSTICK GLU 160 mg/dL High 74-106 [facility] Comment on above: Result Comment: MAURI GEMENT OF PATIENT CARE PER NURSING PROTOCOL Performed By: #### L 501.080 ####[facility] [address] [place], [address] FINGERSTICK GLU 155 mg/dL High 74-106 [facility] Comment on above: Result Comment: MAURI GEMENT OF PATIENT CARE PER NURSING PROTOCOL Performed By: #### L 501.080 ####[facility] [address] [place], [address] CBC W/Diff, Automatedon 05-1 3-2025 PLT EST A Normal ADEQ [facility] Comment on above: Order Comment: CRITI ELISHA VALUE CALLED TO AZRA MONAHAN04/07/25 1607 Dhara Julio.RESULTS READ BACK BY SAME. Performed By: #### L 500.2500, L100.0100 ####[facility] [address] [place], [place], [address] Eosinophil percentageOrdered By: Kenelza Vieyra on 04-07-2025 Eosinophils/100 WBC (Bld) 0.0 % 0-5 [facility] Erythrocyte distribution wid th ratioOrdered By: [facility] Jarrell on 04-07-2025 Erythrocyte distribution width (RBC) [Ratio] 15.8 % High 11.6-14.6 [facility] Erythrocyte distribution wid th standard deviationOrdered By: [facility] Jarrell on 04-07-2025 Erythrocyte distribution width (RBC) [Ratio] 51.9 fl High 35.1-43.9 [facility] Hematocrit Auto (Bld) [Volum e fraction]Ordered By: Kengrace Vieyra on 04-07-2025 Hematocrit (Bld) [Volume fraction] 38.9 % 37-47 [facility] Hemoglobin A1con 04-07-2025 HbA1c (Bld) [Mass fraction] 6.3 % High <=5.6 [facility] Comment on above: Result Comment: Norm al < 5.7 % Prediabetic 5.7 - 6.4 % Diabetic >or= 6.5 % Please note range changes. Performed By: #### L 501.9985 ####[facility] [address] [place], [place], [address] Hemoglobin A1c percentageOrd ered By: Kengrace Vieyra on 04-07-2025 HbA1c (Bld) [Mass fraction] 6.3 % High <5.7 [facility] Comment on above: Normal < 5.7 % Predi abetic 5.7 - 6.4 % Diabetic >or= 6.5 % Please note range changes. Hemoglobin measurementOrdere d By: Ken Vieyra on 04-07-2025 Hemoglobin (Bld) [Mass/Vol] 12.4 g/dL 12.0-15.0 [facility] Immature granulocytes/100 WB C Auto (Bld)Ordered By: Ken Vieyra on 04-07-2025 Immature granulocytes/100 WBC (Bld) 1.000 % High 0.0-0.9 [facility] Comment on above: IG% - Immature Granu locytes (promyelocytes, myelocytes and metamyelocytes) > 1% indicates that a LEFT SHIFT is Present. MCV (mean corpuscular volume ) determinationOrdered By: Ken Vieyra on 04-07-2025 MCV (RBC) [Entitic vol] 91.3 fL 81-99 [facility] Mean corpuscular hemoglobin (MCH) determinationOrdered By: Ken Vieyra on 04-07-2025 MCH (RBC) [Entitic mass] 29.1 pg 27.0-32.0 [facility] Mean corpuscular hemoglobin concentration (MCHC) determinationOrdered By: Ken Vieyra on 04-07-2025 MCHC (RBC) [Mass/Vol] 31.9 g/dL Low 32-36 [facility] Comment on above: Delta: 30.2 on 04/06-444 Mean platelet volume determi nationOrdered By: Ken Vieyra on 04-07-2025 Platelet mean volume (Bld) [Entitic vol] 10.0 fL 6.2-12.0 [facility] Monocyte percentageOrdered B y: Ken Vieyra on 04-07-2025 Monocytes/100 WBC (Bld) 3.3 % 0-10 [facility] Neutrophil percentageOrdered By: Ken Vieyra on 04-07-2025 Neutrophils/100 WBC (Bld) 94.1 % High 47-70 [facility] Nucleated red blood cell per centageOrdered By: Ken Vieyra on 04-07-2025 Nucleated RBC/100 WBC (Bld) [Ratio] 0 % 0-5 [facility] Phosphoruson 04-07-2025 Phosphate [Mass/Vol] 3.3 mg/dL Normal 2.7-4.5 [facility] Comment on above: Performed By: #### L 501.2300 ####[facility] [address] [place], [address] Platelet countOrdered By: Bel Vieyra on 04-07-2025 Platelets (Bld) [#/Vol] 365 10*3/uL 150-450 [facility] Platelet estimateOrdered By: Ken Vieyra on 04-07-2025 Platelets LM Ql (Bld) A ADEQ [facility] RBC Auto (Bld) [#/Vol]Ordere d By: Ken Vieyra on 04-07-2025 RBC (Bld) [#/Vol] 4.26 10*6/uL 4.2-5.4 [facility] White blood cell (WBC) count Ordered By: Ken Vieyra on 04-07-2025 WBC (Bld) [#/Vol] 31.9 10*3/uL High 4.4-11.0 [facility] Assessment of wrist artery p atency prior to arterial punctureOrdered By: Orlando Maldonado on 04-06-2025 Arterial patency Wrist artery --pre arterial puncture Positive [facility] Bedside Glucoseon 04-06-2025 FINGERSTICK GLU 175 mg/dL High 74-106 [facility] Comment on above: Result Comment: MAURI GEMENT OF PATIENT CARE PER NURSING PROTOCOL Performed By: #### L 501.080 ####[facility] [address] [place], [address] FINGERSTICK GLU 173 mg/dL High 74-106 [facility] Comment on above: Result Comment: MAURI GEMENT OF PATIENT CARE PER NURSING PROTOCOL Performed By: #### L 501.080 ####[facility] [address] [place], [address] Bilirubin, totalOrdered By: Orlando Maldonado on 04-06-2025 Bilirubin [Mass/Vol] 0.23 mg/dL 0.00-1.30 [facility] Blood Gases by CPSon 025 ZECHARIAH TEST Positive Normal [facility] Comment on above: Performed By: #### L 9000.0800 ####[facility] [address] [place], [address] Base excess Calc (Bld) [Moles/Vol] 23 mmol/L High -2 to +2 [facility] Comment on above: Performed By: #### L 9000.0800 ####[facility] [address] [place], [address] Blood Gas Type ART Normal [facility] Comment on above: Performed By: #### L 9000.0800 ####[facility] [address] [place], [address] FI02 35.0 Normal [facility] Comment on above: Performed By: #### L 9000.0800 ####[facility] [address] [place], [address] HCO3 (Bld) [Moles/Vol] 47.7 mmol/L High 22-26 [facility] Comment on above: Performed By: #### L 9000.0800 ####[facility] [address] [place], [address] Mode Not entered Normal [facility] Comment on above: Performed By: #### L 9000.0800 ####[facility] [address] [place], [address] O2 Delivery Dev BiPAP Normal [facility] Comment on above: Performed By: #### L 9000.0800 ####[facility] [address] [place], [address] pCO2 75.5 mmHg Invalid Interpretation Code 35-45 [facility] Comment on above: Performed By: #### L 9000.0800 ####[facility] [address] [place], [address] pH (Bld) 7.41 [pH] Normal 7.35-7.45 [facility] Comment on above: Performed By: #### L 9000.0800 ####[facility] [address] [place], [address] PO2 54 mmHG Low 75-100 [facility] Comment on above: Performed By: #### L 9000.0800 ####[facility] [address] [place], [address] Read Back By Yes Normal [facility] Comment on above: Performed By: #### L 9000.0800 ####[facility] [address] [place], [address] SITE L Radial Normal [facility] Comment on above: Performed By: #### L 9000.0800 ####[facility] [address] [place], [address] SO2 85 Low 95-99 [facility] Comment on above: Performed By: #### L 9000.0800 ####[facility] [address] [place], [address] TOTAL CO2 > 50 Normal [facility] Comment on above: Performed By: #### L 9000.0800 ####[facility] [address] [place], [address] Blood base excess determinat ionOrdered By: Orlando Maldonado on 04-06-2025 Base excess Calc (BldV) [Moles/Vol] 23 mmol/L High -2-2 [facility] Blood bicarbonate measuremen tOrdered By: Orlando Maldonado on 04-06-2025 HCO3 (Bld) [Moles/Vol] 47.7 mmol/L High 22-26 [facility] Blood manual differential co mment interpretation (narrative result)Ordered By: Orlando Maldonado on 04-06-2025 Manual differential comment Eugene (Bld) [Interp] SCANNED [facility] CBC W/Diff, Automatedon 03-26 PLT EST ADEQUATE Normal ADEQ [facility] Comment on above: Performed By: #### L 100.0100, L500.4050, L503.7505, L501.2300 ####[facility] [address] [place], [address] RED CELL MORPH NORM C+C Normal NORM C C [facility] Comment on above: Performed By: #### L 100.0100, L500.4050, L503.7505, L501.2300 ####[facility] [address] [place], [address] SMEAR COMMENT SCANNED Normal [facility] Comment on above: Performed By: #### L 100.0100, L500.4050, L503.7505, L501.2300 ####[facility] [address] [place], [address] CRPon 04-06-2025 C-REACTIVE PROT 18.90 mg/L High 0.0-3.0 [facility] Comment on above: Performed By: #### L 501.6710, L101.9900 ####[facility] [address] [place], [address] Calculated very low density lipoprotein (VLDL) cholesterol measurementOrdered By: Ken Vieyra on 04-06-2025 Calculated very low density lipoprotein (VLDL) cholesterol measurement 14 mg/dL 5-40 [facility] Comprehensive Metabolic Prof ilon 04-06-2025 Albumin [Mass/Vol] 3.4 g/dL Normal 3.4-4.8 [facility] Comment on above: Performed By: #### L 100.0100, L500.4050, L503.7505, L501.2300 ####[facility] [address] [place], [address] Albumin/Globulin [Mass ratio] 1.3 {ratio} Normal 0.9-2.4 [facility] Comment on above: Performed By: #### L 100.0100, L500.4050, L503.7505, L501.2300 ####[facility] [address] [place], [address] ALK PHOS 53 U/L Normal 35-104 [facility] Comment on above: Performed By: #### L 100.0100, L500.4050, L503.7505, L501.2300 ####[facility] [address] [place], [address] ALT [Catalytic activity/Vol] 41 U/L High <=34 [facility] Comment on above: Performed By: #### L 100.0100, L500.4050, L503.7505, L501.2300 ####[facility] [address] [place], [address] AST [Catalytic activity/Vol] 20 U/L Normal <=31 [facility] Comment on above: Result Comment: Hemo lysis present, Results??could be affected.?? Performed By: #### L 100.0100, L500.4050, L503.7505, L501.2300 ####[facility] [address] [place], [address] Bilirubin [Mass/Vol] 0.23 mg/dL Normal 0.00-1.30 [facility] Comment on above: Performed By: #### L 100.0100, L500.4050, L503.7505, L501.2300 ####[facility] [address] [place], [address] BUN/CRE 27.3 RATIO High 10-20 [facility] Comment on above: Performed By: #### L 100.0100, L500.4050, L503.7505, L501.2300 ####[facility] [address] [place], [address] Calcium [Mass/Vol] 8.6 mg/dL Normal 7.6-11.0 [facility] Comment on above: Performed By: #### L 100.0100, L500.4050, L503.7505, L501.2300 ####[facility] [address] [place], [address] Chloride [Moles/Vol] 88 mmol/L Low 98-108 [facility] Comment on above: Performed By: #### L 100.0100, L500.4050, L503.7505, L501.2300 ####[facility] [address] [place], [address] CO2 [Moles/Vol] 42.0 mmol/L High 21.0-32.0 [facility] Comment on above: Performed By: #### L 100.0100, L500.4050, L503.7505, L501.2300 ####[facility] [address] [place], [address] Creatinine [Mass/Vol] 0.60 mg/dL Low 0.70-1.20 [facility] Comment on above: Performed By: #### L 100.0100, L500.4050, L503.7505, L501.2300 ####[facility] [address] [place], [address] ECRCL 77.49 ml/min Normal 50-250 [facility] Comment on above: Performed By: #### L 100.0100, L500.4050, L503.7505, L501.2300 ####[facility] [address] [place], [address] GAP 10 Normal 5-15 [facility] Comment on above: Performed By: #### L 100.0100, L500.4050, L503.7505, L501.2300 ####[facility] [address] [place], [address] GFR/1.73 sq M.predicted among non-blacks MDRD (S/P/Bld) [Vol rate/Area] 96 mL/min/{1.73_m2} Normal >60 [facility] Comment on above: Result Comment: mL/m in/1.73m2 CKD-EPI Creatinine Equation (2020) Performed By: #### L 100.0100, L500.4050, L503.7505, L501.2300 ####[facility] [address] [place], [address] Globulin (S) [Mass/Vol] 2.7 g/dL Normal 2.2-4.2 [facility] Comment on above: Performed By: #### L 100.0100, L500.4050, L503.7505, L501.2300 ####[facility] [address] [place], [address] Glucose [Mass/Vol] 233 mg/dL High 70-99 [facility] Comment on above: Performed By: #### L 100.0100, L500.4050, L503.7505, L501.2300 ####[facility] [address] [place], [address] Potassium [Moles/Vol] 4.0 mmol/L Normal 3.3-5.1 [facility] Comment on above: Result Comment: Hemo lysis present, Results??could be affected.?? Performed By: #### L 100.0100, L500.4050, L503.7505, L501.2300 ####[facility] [address] [place], [address] Sodium [Moles/Vol] 140 mmol/L Normal 133-145 [facility] Comment on above: Performed By: #### L 100.0100, L500.4050, L503.7505, L501.2300 ####[facility] [address] [place], [address] T PROT 6.1 g/dL Normal 5.9-8.4 [facility] Comment on above: Performed By: #### L 100.0100, L500.4050, L503.7505, L501.2300 ####[facility] [address] [place], [address] Urea nitrogen [Mass/Vol] 16 mg/dL Normal 4-19 [facility] Comment on above: Performed By: #### L 100.0100, L500.4050, L503.7505, L501.2300 ####[facility] [address] [place], [address] Electrocardiogram reportOrde red By: Yasmani Bruno on 04-06-2025 EKG study [facility] [address] [place] [address] 12 Lead EKG 04/05/252057 MR#: [id number] Acct: [id number] Name: PIPER CLARK Rep #:[id number] 1 : 1955 69 From: Yasmani parra MD Attending Dr: Dr. Ken Vieyra MD Status: ADM IN Ordering Dr: Andi Ortiz MD Date: 04/05/25 Location: [facility] Sex: F C Admitted: 04/05/25 Test Reason : SOB Blood Pressure : */* mmHG Vent. Rate : 97 BPM Atrial Rate : * BPM P-R Int : * ms QRS Dur : 88 ms QT Int : 316 ms P-R-T Axes : * 59 30 degrees QTcB Int : 401 ms Atrial fibrillation Low voltage QRS Abnormal ECG Confirmed by Yasmani Bruno ([id number]), associate entertainment editor SHANNAN MAN ([id number]) on :25:24 AM Referred By: Orlando Bolden Confirmed By: Yasmani Bruno 04/06/2525 Date _ Yasmani Bruno MD CC: Dr. Andi Ortiz MD; Dr. Genia Chappell MD; Dr. Orlando Bolden, DO; Dr. Ken Vieyra MD ~ Signed [facility] Other Phone: Erythrocyte Sed Rateon 04-06 SED RATE 18 mm/hr Normal 0-30 [facility] Comment on above: Performed By: #### L 501.6710, L101.9900 ####[facility] [address] [place], [place], [address] Erythrocyte morphology asses smentOrdered By: Orlando Maldonado on 04-06-2025 RBC morphology finding Nom (Bld) NORM C+C NORMAL NORM C&C [facility] Erythrocyte sedimentation ra teOrdered By: Orlando Maldonado on 04-06-2025 ESR (Bld) [Velocity] 18 mm/h 0-30 [facility] L499.0043on 04-06-2025 Trop T High Sen 12 ng/L Normal <=14 [facility] Comment on above: Performed By: #### L 499.0043 ####[facility] [address] [place], [address] L503.7505on 04-06-2025 Natriuretic peptide B (Bld) [Mass/Vol] 1763 pg/mL High <=900 [facility] Comment on above: Result Comment: Hear t Failure Unlikely: < 300 pg/mLHeart Failure Likely< 50 Years: > 450 pg/mL50-75 Years: > 900 pg/mL>75 Years: > 1800 pg/mL Performed By: #### L 100.0100, L500.4050, L503.7505, L501.2300 ####[facility] [address] [place], [place], [address] LDL calc ser/plasOrdered By: Ken Vieyra on 04-06-2025 Cholesterol in LDL [Mass/Vol] 61 mg/dL [facility] Comment on above: Pgpnwxiipt=106-186 m g/dL & Higher Gzxs=845 mg/dL or greater Laboratory - Chemistry and C hemistry - challengeOrdered By: Orlando Maldonado on 04-06-2025 AST [Catalytic activity/Vol] 20 U/L <32 [facility] Comment on above: Hemolysis present, R esults could be affected. Lactic Acidon 04-06-2025 Lactate [Moles/Vol] 3.0 mmol/L Invalid Interpretation Code 0.0-2.0 [facility] Comment on above: Result Comment: Crit ical Result(s) Called at 1003: by: NEHEMIAH GUTIÉRREZ. ??Results read back by same. Performed By: #### L 481.6009 ####[facility] [address] [place], [place], [address] Lactate [Moles/Vol] 2.2 mmol/L Invalid Interpretation Code 0.0-2.0 [facility] Comment on above: Order Comment: Y Result Comment: Crit ical Result(s) Called at 0559: by: JJ TOEAFFOLTER??Results read back by same. Performed By: #### L 415.6170 ####[facility] [address] [place], [place], [address] Lactate [Moles/Vol] 2.9 mmol/L Invalid Interpretation Code 0.0-2.0 [facility] Comment on above: Order Comment: N Result Comment: Crit ical Result(s) Called at: 0136 by:??NBURNS TO EAFFOLTERResults read back by same. Performed By: #### L 554.4630 ####[facility] [address] [place], [place], [address] Lactic acid measurementOrder ed By: Orlando aMldonado on 04-06-2025 Lactate [Moles/Vol] 3.0 mmol/L High 0.0-2.0 [facility] Comment on above: Critical Result(s) C alled at 1003: by: NEHEMIAH RAUSCH. Results read back by same. Lipid Profileon 04-06-2025 CHOL:HDL 2.04 Normal [facility] Comment on above: Performed By: #### L 500.5040 ####[facility] [address] [place], [place], [address] Cholesterol [Mass/Vol] 147 mg/dL Normal <=200 [facility] Comment on above: Result Comment: Chol esterol level, Desirable <200 mg/dLBorderline high cholesterol 200-239 mg/dLHigh cholesterol >=240 mg/dLRecommendations of the NCEP Adult Treatment Panel for thefollowing risk-cutoff thresholds for the [place] Americanpulation. Performed By: #### L 500.4100 ####[facility] [address] [place], [address] Cholesterol in HDL [Mass/Vol] 72 mg/dL Normal [facility] Comment on above: Result Comment: Leslie onal Cholesterol Education Program (NCEP) guidelines:<40 mg/dL: Low HDL-cholesterol (major risk factor for CHD)>= 60 mg/dL: High HDL-cholesterol (negative risk factor forCHD)HDL-cholesterol is affected by a number of factors, e.g.smoking, exercise, hormones, sex and age. Performed By: #### L 500.4100 ####[facility] [address] [facility] [address] Cholesterol in LDL [Mass/Vol] 61 mg/dL Normal [facility] Comment on above: Result Comment: Bord qbslpu=379-856 mg/dL Higher Infn=162 mg/dL or greater Performed By: #### L 500.4100 ####[facility] [address] [place], [address] Cholesterol in VLDL [Mass/Vol] 14 mg/dL Normal 5-40 [facility] Comment on above: Performed By: #### L 500.4100 ####[facility] [address] [facility] [address] Triglyceride [Mass/Vol] 71 mg/dL Normal [facility] Comment on above: Result Comment: The drugs N-Acetylcysteine and Metamizole may falselydepress this assay.Normal range: <150 mg/dLBorderline High: 150-199 mg/dLHigh: 200-499 mg/dLVery High: >500 mg/dL Performed By: #### L 500.4100 ####[facility] [address] [place], [address] Magnesiumon 05-12-2025 Magnesium [Mass/Vol] 1.9 mg/dL Normal 1.5-2.2 [facility] Comment on above: Performed By: #### L 093.5204 ####[facility] [address] [place], [place], [address] Measurement, pHOrdered By: Ellen Maldonado on 04-06-2025 pH (Unsp spec) 7.41 [pH] 7.35-7.45 [facility] Natriuretic peptide.B prohor inessa N-Terminal [Mass/volume] in Serum or PlasmaOrdered By: Orlando Maldonado on 04-06-2025 Natriuretic peptide.B prohormone N-Terminal [Mass/Vol] 1763 pg/mL High <900 [facility] Comment on above: Heart Failure Unlike ly: < 300 pg/mLHeart Failure Likely< 50 Years: > 450 pg/mL50-75 Years: > 900 pg/mL>75 Years: > 1800 pg/mL No Panel InformationOrdered By: Orlando Maldonado on 04-06-2025 Bld Gas Crit Called To/Read Back By Yes [facility] Blood Gas Sample Site L Radial [facility] Blood Gas Specimen Type [facility] Blood Gas Vent Mode Not entered [facility] Oxygen Delivery Device [facility] L Radial [facility] Not entered [facility] Yes [facility] Blood Gas Notified Whom obed [facility] de [facility] 20 U/L <32 [facility] Phosphoruson 04-06-2025 Phosphate [Mass/Vol] 3.2 mg/dL Normal 2.7-4.5 [facility] Comment on above: Performed By: #### L 100.0100, L500.4050, L503.7505, L501.2300 ####[facility] [address] [place], [address] RESPIRATORY PANEL MOLECULARo n 04-06-2025 RP PANEL Normal [facility] Comment on above: Performed By: #### M 100.638 ####[facility] [address] [place], [address] Respiratory pathogens detect ion panel by molecular detection methodOrdered By: Orlando Maldonado on 04-06-2025 Respiratory pathogens DNA and RNA panel KEARA+probe (Resp) [facility] Screening total cholesterol/ high density lipoprotein (HDL) cholesterol ratioOrdered By: Ken Vieyra on 04-06-2025 Cholesterol.total/Choles terol in HDL [Mass ratio] 2.04 {ratio} [facility] Serum globulin measurementOr dered By: Orlando Maldonado on 04-06-2025 Globulin (S) [Mass/Vol] 2.7 g/dL 2.2-4.2 [facility] Serum or plasma C reactive p rotein measurement (mass/volume)Ordered By: Orlando Maldonado on 04-06-2025 CRP [Mass/Vol] 18.90 mg/L High 0.0-3.0 [facility] Serum or plasma alanine garza otransferase (ALT) measurementOrdered By: Orlando Maldonado on 04-06-2025 ALT [Catalytic activity/Vol] 41 U/L High <35 [facility] Serum or plasma albumin diallo urement (mass/volume)Ordered By: Orlando Maldonado on 04-06-2025 Albumin [Mass/Vol] 3.4 g/dL 3.4-4.8 [facility] Serum or plasma albumin/glob ulin mass ratioOrdered By: Orlando Maldonado on 04-06-2025 Albumin/Globulin [Mass ratio] 1.3 {ratio} 0.9-2.4 [facility] Serum or plasma alkaline pati sphatase measurementOrdered By: Orlando Maldonado on 04-06-2025 ALP [Catalytic activity/Vol] 53 U/L 35-104 [facility] Serum or plasma cholesterol in HDL measurement (mass/volume)Ordered By: Ken Vieyra on 04-06-2025 Cholesterol in HDL [Mass/Vol] 72 mg/dL >40 [facility] Comment on above: National Cholesterol Education Program (NCEP) guidelines:<40 mg/dL: Low HDL-cholesterol (major risk factor for CHD)>= 60 mg/dL: High HDL-cholesterol (negative risk factor for CHD)HDL-cholesterol is affected by a number of factors, e.g. smoking, exercise, hormones, sex and age. Serum or plasma cholesterol measurement (mass/volume)Ordered By: Ken Vieyra on 04-06-2025 Cholesterol [Mass/Vol] 147 mg/dL <201 [facility] Comment on above: Cholesterol level, D esirable <200 mg/dLBorderline high cholesterol 200-239 mg/dLHigh cholesterol >=240 mg/dLRecommendations of the NCEP Adult Treatment Panel for the following risk-cutoff thresholds for the [place] population. Total proteinOrdered By: Severo Maldonado on 04-06-2025 Protein [Mass/Vol] 6.1 g/dL 5.9-8.4 [facility] Triglycerides measurementOrd ered By: Ken Vieyra on 04-06-2025 Triglyceride [Mass/Vol] 71 mg/dL <199 [facility] Comment on above: The drugs N-Acetylcy steine and Metamizole may falsely depress this assay. Normal range: <150 mg/dLBorderline High: 150-199 mg/dLHigh: 200-499 mg/dLVery High: >500 mg/dL Troponin T.cardiac [Mass/vol ume] in Serum or Plasma by High sensitivity methodOrdered By: Andi Ortiz on 04-06-2025 Troponin T.cardiac High sensitivity method [Mass/Vol] 12 ng/L <14 [facility] 12 Lead EKGon 04-05-2025 12 Lead EKG Normal [facility] Absolute lymphocyte countOrd ered By: Andi Ortiz on 04-05-2025 Lymphocytes Auto (Unsp spec) [#/Vol] 0.57 10*3/uL Low 0.83-4.51 [facility] Absolute neutrophil countOrd ered By: Andi Ortiz on 04-05-2025 Neutrophils (Bld) [#/Vol] 23.4 10*3/uL High 2.0-7.7 [facility] Anion gap in Serum or Plasma Ordered By: Andi Ortiz on 04-05-2025 Anion gap [Moles/Vol] 7 mmol/L 5-15 [facility] Automated lymphocyte count a s percentage of total leukocytesOrdered By: Andi Ortiz on 04-05-2025 Lymphocytes/100 WBC Auto (Unsp spec) 2.2 % Low 19-41 [facility] BUN/creatinine ratioOrdered By: Andi Ortiz on 04-05-2025 Urea nitrogen/Creatinine [Mass ratio] 29.9 mg/mg High 10-20 [facility] Basic Metabolic Profile (BMP )on 04-05-2025 BUN/CRE 29.9 RATIO High - [facility] Comment on above: Performed By: #### L 500.2500, L100.0100 ####[facility] [address] [place], [address] Calcium [Mass/Vol] 9.2 mg/dL Normal 7.6-11.0 [facility] Comment on above: Performed By: #### L 500.2500, L100.0100 ####[facility] [address] [place], [address] Chloride [Moles/Vol] 89 mmol/L Low 98-108 [facility] Comment on above: Performed By: #### L 500.2500, L100.0100 ####[facility] [address] [place], [address] CO2 [Moles/Vol] 42.2 mmol/L High 21.0-32.0 [facility] Comment on above: Performed By: #### L 500.2500, L100.0100 ####[facility] [address] [place], [address] Creatinine [Mass/Vol] 0.77 mg/dL Normal 0.70-1.20 [facility] Comment on above: Performed By: #### L 500.2500, L100.0100 ####[facility] [address] [place], [address] ECRCL 77.14 ml/min Normal 50-250 [facility] Comment on above: Performed By: #### L 500.2500, L100.0100 ####[facility] [address] [place], [address] GAP 7 Normal 5-15 [facility] Comment on above: Performed By: #### L 500.2500, L100.0100 ####[facility] [address] [place], [address] GFR/1.73 sq M.predicted among non-blacks MDRD (S/P/Bld) [Vol rate/Area] 82 mL/min/{1.73_m2} Normal >60 [facility] Comment on above: Result Comment: mL/m in/1.73m2 CKD-EPI Creatinine Equation (2020) Performed By: #### L 500.2500, L100.0100 ####[facility] [address] [place], [address] Glucose [Mass/Vol] 305 mg/dL High 70-99 [facility] Comment on above: Performed By: #### L 500.2500, L100.0100 ####[facility] [address] [place], [address] Potassium [Moles/Vol] 4.7 mmol/L Normal 3.3-5.1 [facility] Comment on above: Performed By: #### L 500.2500, L100.0100 ####[facility] [address] [place], [address] Sodium [Moles/Vol] 138 mmol/L Normal 133-145 [facility] Comment on above: Performed By: #### L 500.2500, L100.0100 ####[facility] [address] [place], [address] Urea nitrogen [Mass/Vol] 23 mg/dL High 4-19 [facility] Comment on above: Performed By: #### L 500.2500, L100.0100 ####[facility] [address] [place], [address] Basophil percentageOrdered B y: Andi Ortiz on 04-05-2025 Basophils/100 WBC (Bld) 0.2 % 0-1 [facility] Blood cultureOrdered By: Skylar Ortiz on 04-05-2025 Bacteria identified Cx Nom (Bld) No growth in 5 days. [facility] Bacteria identified Cx Nom (Bld) No growth in 5 days. [facility] Blood manual differential co mment interpretation (narrative result)Ordered By: Andi Ortiz on 04-05-2025 Manual differential comment Eugene (Bld) [Interp] SCANNED [facility] Blood stomatocytes detection by light microscopyOrdered By: Andi Ortiz on 04-05-2025 Stomatocytes LM Ql (Bld) 2+ [facility] CBC W/Diff, Automatedon 03-26 Anisocytosis Ql (Bld) 1+ Normal [facility] Comment on above: Performed By: #### L 500.2500, L100.0100 ####[facility] [address] [place], [address] BASO STIPPLING RARE Normal [facility] Comment on above: Performed By: #### L 500.2500, L100.0100 ####[facility] [address] [place], [address] PLT EST ADEQUATE Normal ADEQ [facility] Comment on above: Performed By: #### L 500.2500, L100.0100 ####[facility] [address] [place], [address] SMEAR COMMENT SCANNED Normal [facility] Comment on above: Performed By: #### L 500.2500, L100.0100 ####[facility] [address] [place], [address] STOMATOCYTE 2+ Normal [facility] Comment on above: Performed By: #### L 500.2500, L100.0100 ####[facility] [address] [place], [address] CT Chest, Abd, Pelvis WO Con ton 04-05-2025 CT Chest, Abd, Pelvis WO Cont Normal [facility] Carbon dioxide, total [Moles /volume] in Central venous bloodOrdered By: Andi Ortiz on 04-05-2025 CO2 [Moles/Vol] 42.2 mmol/L High 21.0-32.0 [facility] Chest 1 View (Portable)on Chest 1 View (Portable) Normal [facility] Chloride assayOrdered By: Holland Ortiz on 04-05-2025 Chloride [Moles/Vol] 89 mmol/L Low 98-108 [facility] Emergency Department Summary on 04-05-2025 Emergency Department Summary Normal [facility] Eosinophil percentageOrdered By: Andi Ortiz on 04-05-2025 Eosinophils/100 WBC (Bld) 0.0 % 0-5 [facility] Erythrocyte basophilic stipp ling detectionOrdered By: Andi Ortiz on 04-05-2025 Basophilic stippling LM Ql (Bld) RARE [facility] Erythrocyte distribution wid th ratioOrdered By: Andi Ortiz on 04-05-2025 Erythrocyte distribution width (RBC) [Ratio] 15.1 % High 11.6-14.6 [facility] Erythrocyte distribution wid th standard deviationOrdered By: Andi Ortiz on 04-05-2025 Erythrocyte distribution width (RBC) [Ratio] 53.1 fl High 35.1-43.9 [facility] Glomerular filtration rate ( GFR) estimation/1.73 sq m using serum, plasma, or whole bOrdered By: Andi Ortiz on 04-05-2025 GFR/1.73 sq M.predicted among non-blacks MDRD (S/P/Bld) [Vol rate/Area] 82 mL/min/{1.73_m2} >60 [facility] Comment on above: mL/min/1.73m2 CKD-EP I Creatinine Equation (2020) H AND P Exam - Hospitaliston 04-05-2025 H&P Exam - Hospitalist Normal [facility] Hematocrit Auto (Bld) [Volum e fraction]Ordered By: Andi Ortiz on 04-05-2025 Hematocrit (Bld) [Volume fraction] 38.9 % 37-47 [facility] Hemoglobin measurementOrdere d By: Andi Ortiz on 04-05-2025 Hemoglobin (Bld) [Mass/Vol] 11.7 g/dL Low 12.0-15.0 [facility] Immature granulocytes/100 WB C Auto (Bld)Ordered By: Andi Ortiz on 04-05-2025 Immature granulocytes/100 WBC (Bld) 1.200 % High 0.0-0.9 [facility] Comment on above: IG% - Immature Granu locytes (promyelocytes, myelocytes and metamyelocytes) > 1% indicates that a LEFT SHIFT is Present. L499.0042on 04-05-2025 Trop T High Sen 8 ng/L Normal <=14 [facility] Comment on above: Performed By: #### L 499.0042 ####[facility] [address] [place], [address] L501.4021on 04-05-2025 Trop T High Sen 10 ng/L Normal <=14 [facility] Comment on above: Performed By: #### L 503.7505, L501.4021 ####[facility] [address] [place], [address] L503.7505on 04-05-2025 Natriuretic peptide B (Bld) [Mass/Vol] 1349 pg/mL High <=900 [facility] Comment on above: Result Comment: Hear t Failure Unlikely: < 300 pg/mLHeart Failure Likely< 50 Years: > 450 pg/mL50-75 Years: > 900 pg/mL>75 Years: > 1800 pg/mL Performed By: #### L 503.7505, L501.4021 ####[facility] [address] [place], [address] Laboratory - Hematology and Cell countsOrdered By: Andi Ortiz on 04-05-2025 Anisocytosis Ql (Bld) 1+ [facility] Lactic Acidon 04-05-2025 Lactate [Moles/Vol] 2.5 mmol/L Invalid Interpretation Code 0.0-2.0 [facility] Comment on above: Order Comment: Y Result Comment: Crit ical Result(s) Called at: 2213 by:??KAYLEE MCCALL TO ROGERSP Results read back by same. Performed By: #### L 503.6005 ####[facility] [address] [place], [address] Lactic acid measurementOrder ed By: Andi Ortiz on 04-05-2025 Lactate [Moles/Vol] 2.5 mmol/L High 0.0-2.0 [facility] Comment on above: Critical Result(s) C alled at: 2213 by: KAYLEE MERCER ANGELA TYREE Results read back by same. MCV (mean corpuscular volume ) determinationOrdered By: Andi Ortiz on 04-05-2025 MCV (RBC) [Entitic vol] 96.3 fL 81-99 [facility] Magnesium measurement (mass/ volume)Ordered By: Orlando Maldonado on 04-05-2025 Magnesium (Unsp spec) [Mass/Vol] 1.9 mg/dL 1.5-2.2 [facility] Mean corpuscular hemoglobin (MCH) determinationOrdered By: Andi Ortiz on 04-05-2025 MCH (RBC) [Entitic mass] 29.0 pg 27.0-32.0 [facility] Mean corpuscular hemoglobin concentration (MCHC) determinationOrdered By: Andi Ortiz on 04-05-2025 MCHC (RBC) [Mass/Vol] 30.1 g/dL Low 32-36 [facility] Mean platelet volume determi nationOrdered By: Andi Ortiz on 04-05-2025 Platelet mean volume (Bld) [Entitic vol] 9.8 fL 6.2-12.0 [facility] Monocyte percentageOrdered B y: Andi Ortiz on 04-05-2025 Monocytes/100 WBC (Bld) 4.1 % 0-10 [facility] Natriuretic peptide.B prohor inessa N-Terminal [Mass/volume] in Serum or PlasmaOrdered By: Andi Ortiz on 04-05-2025 Natriuretic peptide.B prohormone N-Terminal [Mass/Vol] 1349 pg/mL High <900 [facility] Comment on above: Heart Failure Unlike ly: < 300 pg/mLHeart Failure Likely< 50 Years: > 450 pg/mL50-75 Years: > 900 pg/mL>75 Years: > 1800 pg/mL Neutrophil percentageOrdered By: Andi Ortiz on 04-05-2025 Neutrophils/100 WBC (Bld) 92.3 % High 47-70 [facility] No Panel InformationOrdered By: Andi Ortiz on 04-05-2025 1+ [facility] Nucleated red blood cell per centageOrdered By: Andi Ortiz on 04-05-2025 Nucleated RBC/100 WBC (Bld) [Ratio] 0 % 0-5 [facility] Platelet countOrdered By: Holland Ortiz on 04-05-2025 Platelets (Bld) [#/Vol] 367 10*3/uL 150-450 [facility] Platelet estimateOrdered By: Andi Ortiz on 04-05-2025 Platelets LM Ql (Bld) ADEQUATE ADEQ [facility] Potassium measurement (mass/ volume)Ordered By: Andi Ortiz on 04-05-2025 Potassium (Unsp spec) [Mass/Vol] 4.7 mmol/L 3.3-5.1 [facility] RBC Auto (Bld) [#/Vol]Ordere d By: Andi Ortiz on 04-05-2025 RBC (Bld) [#/Vol] 4.04 10*6/uL Low 4.2-5.4 [facility] Serum creatinine measurement (mass/volume)Ordered By: Andi Ortiz on 04-05-2025 Creatinine [Mass/Vol] 0.77 mg/dL 0.70-1.20 [facility] Serum glucose measurement (m ass/volume)Ordered By: Andi Ortiz on 04-05-2025 Glucose [Mass/Vol] 305 mg/dL High 70-99 [facility] Serum or plasma calcium diallo urement (mass/volume)Ordered By: Andi Ortiz on 04-05-2025 Calcium [Mass/Vol] 9.2 mg/dL 7.6-11.0 [facility] Serum or plasma urea nitroge n measurement (mass/volume)Ordered By: Andi Ortiz on 04-05-2025 Urea nitrogen [Mass/Vol] 23 mg/dL High 4-19 [facility] Sodium levelOrdered By: Brooks Ortiz on 04-05-2025 Sodium [Moles/Vol] 138 mmol/L 133-145 [facility] Troponin T.cardiac [Mass/vol ume] in Serum or Plasma by High sensitivity methodOrdered By: Andi Ortiz on 04-05-2025 Troponin T.cardiac High sensitivity method [Mass/Vol] 8 ng/L <14 [facility] Troponin T.cardiac High sensitivity method [Mass/Vol] 10 ng/L <14 [facility] Comment on above: Delta: 19 on White blood cell (WBC) count Ordered By: Andi Ortiz on 04-05-2025 WBC (Bld) [#/Vol] 25.4 10*3/uL High 4.4-11.0 [facility] Anion gap in Serum or Plasma Ordered By: Becca Dillard on 04-03-2025 Anion gap [Moles/Vol] 6 mmol/L 04-09 [facility] BUN/creatinine ratioOrdered By: Becca Dillard on 04-03-2025 Urea nitrogen/Creatinine [Mass ratio] 30.0 mg/mg High 09-14 [facility] Basic Metabolic Profile (BMP )on 04-03-2025 BUN/CRE 30.0 RATIO High 09-14 [facility] Comment on above: Performed By: #### L 500.2500 ####[facility] [address] [place], [address] Calcium [Mass/Vol] 9.2 mg/dL Normal 7.6-11.0 [facility] Comment on above: Performed By: #### L 500.2500 ####[facility] [address] [place], [address] Chloride [Moles/Vol] 90 mmol/L Low 98-108 [facility] Comment on above: Performed By: #### L 500.2500 ####[facility] [address] [place], [address] CO2 [Moles/Vol] 41.7 mmol/L High 21.0-32.0 [facility] Comment on above: Performed By: #### L 500.2500 ####[facility] [address] [place], [address] Creatinine [Mass/Vol] 0.78 mg/dL Normal 0.70-1.20 [facility] Comment on above: Performed By: #### L 500.2500 ####[facility] [address] [place], [address] GAP 6 Normal 5-15 [facility] Comment on above: Performed By: #### L 500.2500 ####[facility] [address] [place], [address] GFR/1.73 sq M.predicted among non-blacks MDRD (S/P/Bld) [Vol rate/Area] 81 mL/min/{1.73_m2} Normal >60 [facility] Comment on above: Result Comment: mL/m in/1.73m2 CKD-EPI Creatinine Equation (2020) Performed By: #### L 500.2500 ####[facility] [address] [place], [address] Glucose [Mass/Vol] 237 mg/dL High 70-99 [facility] Comment on above: Performed By: #### L 500.2500 ####[facility] [address] [place], [address] Potassium [Moles/Vol] 5.1 mmol/L Normal 3.3-5.1 [facility] Comment on above: Result Comment: Hemo lysis present, Results??could be affected.?? Performed By: #### L 500.2500 ####[facility] [address] [place], [address] Sodium [Moles/Vol] 137 mmol/L Normal 133-145 [facility] Comment on above: Performed By: #### L 500.2500 ####[facility] [address] [place], [address] Urea nitrogen [Mass/Vol] 23 mg/dL High 03-14 [facility] Comment on above: Performed By: #### L 500.2500 ####[facility] [address] [place], [address] Carbon dioxide, total [Moles /volume] in Central venous bloodOrdered By: Becca Dillard on 04-03-2025 CO2 [Moles/Vol] 41.7 mmol/L High 21.0-32.0 [facility] Chloride assayOrdered By: Sergio Dillard on 04-03-2025 Chloride [Moles/Vol] 90 mmol/L Low 98-108 [facility] Glomerular filtration rate ( GFR) estimation/1.73 sq m using serum, plasma, or whole bOrdered By: Becca Dillard on 04-03-2025 GFR/1.73 sq M.predicted among non-blacks MDRD (S/P/Bld) [Vol rate/Area] 81 mL/min/{1.73_m2} >60 [facility] Comment on above: mL/min/1.73m2 CKD-EP I Creatinine Equation (2020) Potassium measurement (mass/ volume)Ordered By: Becca Dillard on 04-03-2025 Potassium (Unsp spec) [Mass/Vol] 5.1 mmol/L 3.3-5.1 [facility] Comment on above: Hemolysis present, R esults could be affected. Serum creatinine measurement (mass/volume)Ordered By: Becca Dillard on 04-03-2025 Creatinine [Mass/Vol] 0.78 mg/dL 0.70-1.20 [facility] Serum glucose measurement (m ass/volume)Ordered By: Becca Dillard on 04-03-2025 Glucose [Mass/Vol] 237 mg/dL High 70-99 [facility] Serum or plasma calcium diallo urement (mass/volume)Ordered By: Becca Dillard on 04-03-2025 Calcium [Mass/Vol] 9.2 mg/dL 7.6-11.0 [facility] Serum or plasma urea nitroge n measurement (mass/volume)Ordered By: Becca Dillard on 04-03-2025 Urea nitrogen [Mass/Vol] 23 mg/dL High 03-14 [facility] Sodium levelOrdered By: Faith Dillard on 04-03-2025 Sodium [Moles/Vol] 137 mmol/L 133-145 [facility] Basic Metabolic Profile (BMP )on 03-31-2025 BUN Normal - [facility] Comment on above: Result Comment: Canc elled via OM: Order cancelled - Patient discharged Performed By: #### L 100.0100, L500.2500 ####[facility] [address] [place], [address] BUN/CRE Normal - [facility] Comment on above: Result Comment: Canc elled via OM: Order cancelled - Patient discharged Performed By: #### L 100.0100, L500.2500 ####[facility] [address] [place], [address] Calcium Normal 7.6-11.0 [facility] Comment on above: Result Comment: Canc elled via OM: Order cancelled - Patient discharged Performed By: #### L 100.0100, L500.2500 ####[facility] [address] [place], [address] CL Normal 98-108 [facility] Comment on above: Result Comment: Canc elled via OM: Order cancelled - Patient discharged Performed By: #### L 100.0100, L500.2500 ####[facility] [address] [place], [address] CO2 Normal 21.0-32.0 [facility] Comment on above: Result Comment: Canc elled via OM: Order cancelled - Patient discharged Performed By: #### L 100.0100, L500.2500 ####[facility] [address] [place], [address] CREAT,SERUM Normal 0.70-1.20 [facility] Comment on above: Result Comment: Canc elled via OM: Order cancelled - Patient discharged Performed By: #### L 100.0100, L500.2500 ####[facility] [address] [place], [address] eGFR Normal >60 [facility] Comment on above: Result Comment: Canc elled via OM: Order cancelled - Patient discharged Performed By: #### L 100.0100, L500.2500 ####[facility] [address] [place], [address] GAP Normal 5-15 [facility] Comment on above: Result Comment: Canc elled via OM: Order cancelled - Patient discharged Performed By: #### L 100.0100, L500.2500 ####[facility] [address] [place], [address] GLU Normal 70-99 [facility] Comment on above: Result Comment: Canc elled via OM: Order cancelled - Patient discharged Performed By: #### L 100.0100, L500.2500 ####[facility] [address] [place], [address] Potassium Normal 3.3-5.1 [facility] Comment on above: Result Comment: Canc elled via OM: Order cancelled - Patient discharged Performed By: #### L 100.0100, L500.2500 ####[facility] [address] [place], [address] Basic Metabolic Profile (BMP) Normal 133-145 [facility] Comment on above: Result Comment: Canc elled via OM: Order cancelled - Patient discharged Performed By: #### L 100.0100, L500.2500 ####[facility] [address] [place], [address] CBC W/Diff, Automatedon 05-0 -2024 Absolute Neut Normal 2.0-7.7 [facility] Comment on above: Result Comment: Canc elled via OM: Order cancelled - Patient discharged Performed By: #### L 100.0100, L500.2500 ####[facility] [address] [place], [address] HCT Normal 37-47 [facility] Comment on above: Result Comment: Canc elled via OM: Order cancelled - Patient discharged Performed By: #### L 100.0100, L500.2500 ####[facility] [address] [place], [address] HGB Normal 12.0-15.0 [facility] Comment on above: Result Comment: Canc elled via OM: Order cancelled - Patient discharged Performed By: #### L 100.0100, L500.2500 ####[facility] [address] [place], [address] MCH Normal 27.0-32.0 [facility] Comment on above: Result Comment: Canc elled via OM: Order cancelled - Patient discharged Performed By: #### L 100.0100, L500.2500 ####[facility] [address] [place], [address] MCHC Normal 32-36 [facility] Comment on above: Result Comment: Canc elled via OM: Order cancelled - Patient discharged Performed By: #### L 100.0100, L500.2500 ####[facility] [address] [place], [address] MCV Normal 81-99 [facility] Comment on above: Result Comment: Canc elled via OM: Order cancelled - Patient discharged Performed By: #### L 100.0100, L500.2500 ####[facility] [address] [place], [address] NEUT% Normal 47-70 [facility] Comment on above: Result Comment: Canc elled via OM: Order cancelled - Patient discharged Performed By: #### L 100.0100, L500.2500 ####[facility] [address] [place], [address] PLT Normal 150-450 [facility] Comment on above: Result Comment: Canc elled via OM: Order cancelled - Patient discharged Performed By: #### L 100.0100, L500.2500 ####[facility] [address] [place], [address] RBC Normal 4.2-5.4 [facility] Comment on above: Result Comment: Canc elled via OM: Order cancelled - Patient discharged Performed By: #### L 100.0100, L500.2500 ####[facility] [address] [place], [address] RDW CV Normal 11.6-14.6 [facility] Comment on above: Result Comment: Canc elled via OM: Order cancelled - Patient discharged Performed By: #### L 100.0100, L500.2500 ####[facility] [address] [place], [address] RDW SD Normal 35.1-43.9 [facility] Comment on above: Result Comment: Canc elled via OM: Order cancelled - Patient discharged Performed By: #### L 100.0100, L500.2500 ####[facility] [address] [place], [address] WBC Normal 4.4-11.0 [facility] Comment on above: Result Comment: Canc elled via OM: Order cancelled - Patient discharged Performed By: #### L 100.0100, L500.2500 ####[facility] [address] [place], [address] International normalized rat io (INR) calculationOrdered By: Genia Chappell on 03-31-2025 INR Coag (Bld) [Relative time] 1.2 {INR} [facility] Prothrombin Time w/INRon INR Coag (PPP) [Relative time] 1.2 {INR} Normal [facility] Comment on above: Performed By: #### L 300.3900 ####[facility] [address] [place], [address] PT Coag (PPP) [Time] 15.8 s High 11.7-14.9 [facility] Comment on above: Performed By: #### L 300.3900 ####[facility] [address] [place], [address] Prothrombin timeOrdered By: Genia Chappell on 03-31-2025 PT Coag (PPP) [Time] 15.8 s High 11.7-14.9 [facility] Basic Metabolic Profile (BMP )on 03-30-2025 BUN Normal 4-19 [facility] Comment on above: Result Comment: Canc elled via OM: Order cancelled - Patient discharged Performed By: #### L 100.0100, L500.2500 ####[facility] [address] [place], [address] BUN/CRE Normal 10-20 [facility] Comment on above: Result Comment: Canc elled via OM: Order cancelled - Patient discharged Performed By: #### L 100.0100, L500.2500 ####[facility] [address] [place], [address] Calcium Normal 7.6-11.0 [facility] Comment on above: Result Comment: Canc elled via OM: Order cancelled - Patient discharged Performed By: #### L 100.0100, L500.2500 ####[facility] [address] [place], [address] CL Normal 98-108 [facility] Comment on above: Result Comment: Canc elled via OM: Order cancelled - Patient discharged Performed By: #### L 100.0100, L500.2500 ####[facility] [address] [place], [address] CO2 Normal 21.0-32.0 [facility] Comment on above: Result Comment: Canc elled via OM: Order cancelled - Patient discharged Performed By: #### L 100.0100, L500.2500 ####[facility] [address] [place], [address] CREAT,SERUM Normal 0.70-1.20 [facility] Comment on above: Result Comment: Canc elled via OM: Order cancelled - Patient discharged Performed By: #### L 100.0100, L500.2500 ####[facility] [address] [place], [address] eGFR Normal >60 [facility] Comment on above: Result Comment: Canc elled via OM: Order cancelled - Patient discharged Performed By: #### L 100.0100, L500.2500 ####[facility] [address] [place], [address] GAP Normal 5-15 [facility] Comment on above: Result Comment: Canc elled via OM: Order cancelled - Patient discharged Performed By: #### L 100.0100, L500.2500 ####[facility] [address] [place], [address] GLU Normal 70-99 [facility] Comment on above: Result Comment: Canc elled via OM: Order cancelled - Patient discharged Performed By: #### L 100.0100, L500.2500 ####[facility] [address] [place], [address] Potassium Normal 3.3-5.1 [facility] Comment on above: Result Comment: Canc elled via OM: Order cancelled - Patient discharged Performed By: #### L 100.0100, L500.2500 ####[facility] [address] [place], [address] Basic Metabolic Profile (BMP) Normal 133-145 [facility] Comment on above: Result Comment: Canc elled via OM: Order cancelled - Patient discharged Performed By: #### L 100.0100, L500.2500 ####[facility] [address] [place], [address] CBC W/Diff, Automatedon 05-0 5-2024 Absolute Neut Normal 2.0-7.7 [facility] Comment on above: Result Comment: Canc elled via OM: Order cancelled - Patient discharged Performed By: #### L 100.0100, L500.2500 ####[facility] [address] [place], [address] HCT Normal 37-47 [facility] Comment on above: Result Comment: Canc elled via OM: Order cancelled - Patient discharged Performed By: #### L 100.0100, L500.2500 ####[facility] [address] [place], [address] HGB Normal 12.0-15.0 [facility] Comment on above: Result Comment: Canc elled via OM: Order cancelled - Patient discharged Performed By: #### L 100.0100, L500.2500 ####[facility] [address] [place], [address] MCH Normal 27.0-32.0 [facility] Comment on above: Result Comment: Canc elled via OM: Order cancelled - Patient discharged Performed By: #### L 100.0100, L500.2500 ####[facility] [address] [place], [address] MCHC Normal 32-36 [facility] Comment on above: Result Comment: Canc elled via OM: Order cancelled - Patient discharged Performed By: #### L 100.0100, L500.2500 ####[facility] [address] [place], [address] MCV Normal 81-99 [facility] Comment on above: Result Comment: Canc elled via OM: Order cancelled - Patient discharged Performed By: #### L 100.0100, L500.2500 ####[facility] [address] [place], [address] NEUT% Normal 47-70 [facility] Comment on above: Result Comment: Canc elled via OM: Order cancelled - Patient discharged Performed By: #### L 100.0100, L500.2500 ####[facility] [address] [place], [address] PLT Normal 150-450 [facility] Comment on above: Result Comment: Canc elled via OM: Order cancelled - Patient discharged Performed By: #### L 100.0100, L500.2500 ####[facility] [address] [place], [address] RBC Normal 4.2-5.4 [facility] Comment on above: Result Comment: Canc elled via OM: Order cancelled - Patient discharged Performed By: #### L 100.0100, L500.2500 ####[facility] [address] [place], [address] RDW CV Normal 11.6-14.6 [facility] Comment on above: Result Comment: Canc elled via OM: Order cancelled - Patient discharged Performed By: #### L 100.0100, L500.2500 ####[facility] [address] [place], [address] RDW SD Normal 35.1-43.9 [facility] Comment on above: Result Comment: Canc elled via OM: Order cancelled - Patient discharged Performed By: #### L 100.0100, L500.2500 ####[facility] [address] [place], [address] WBC Normal 4.4-11.0 [facility] Comment on above: Result Comment: Canc elled via OM: Order cancelled - Patient discharged Performed By: #### L 100.0100, L500.2500 ####[facility] [address] [place], [address] Chest PA and Lateralon 05-05 -2025 Chest PA and Lateral Normal [facility] Basic Metabolic Profile (BMP )on 03-29-2025 BUN Normal 4-19 [facility] Comment on above: Performed By: #### L 500.2500, L100.0100 ####[facility] [address] [place], [address] BUN/CRE Normal 10-20 [facility] Comment on above: Performed By: #### L 500.2500, L100.0100 ####[facility] [address] [place], [address] Calcium Normal 7.6-11.0 [facility] Comment on above: Performed By: #### L 500.2500, L100.0100 ####[facility] [address] [place], [address] CL Normal 98-108 [facility] Comment on above: Performed By: #### L 500.2500, L100.0100 ####[facility] [address] [place], [address] CO2 Normal 21.0-32.0 [facility] Comment on above: Performed By: #### L 500.2500, L100.0100 ####[facility] [address] [place], [address] CREAT,SERUM Normal 0.70-1.20 [facility] Comment on above: Performed By: #### L 500.2500, L100.0100 ####[facility] [address] [place], [address] eGFR Normal >60 [facility] Comment on above: Performed By: #### L 500.2500, L100.0100 ####[facility] [address] [place], [address] GAP Normal 5-15 [facility] Comment on above: Performed By: #### L 500.2500, L100.0100 ####[facility] [address] [place], [address] GLU Normal 70-99 [facility] Comment on above: Performed By: #### L 500.2500, L100.0100 ####[facility] [address] [place], [address] Potassium Normal 3.3-5.1 [facility] Comment on above: Performed By: #### L 500.2500, L100.0100 ####[facility] [address] [place], [address] Basic Metabolic Profile (BMP) Normal 133-145 [facility] Comment on above: Performed By: #### L 500.2500, L100.0100 ####[facility] [address] [place], [address] CBC W/Diff, Automatedon 05-0 Absolute Neut Normal 2.0-7.7 [facility] Comment on above: Result Comment: Canc elled via OM: Order cancelled - Patient discharged Performed By: #### L 500.2500, L100.0100 ####[facility] [address] [place], [address] HCT Normal 37-47 [facility] Comment on above: Result Comment: Canc elled via OM: Order cancelled - Patient discharged Performed By: #### L 500.2500, L100.0100 ####[facility] [address] [place], [address] HGB Normal 12.0-15.0 [facility] Comment on above: Result Comment: Canc elled via OM: Order cancelled - Patient discharged Performed By: #### L 500.2500, L100.0100 ####[facility] [address] [place], [address] MCH Normal 27.0-32.0 [facility] Comment on above: Result Comment: Canc elled via OM: Order cancelled - Patient discharged Performed By: #### L 500.2500, L100.0100 ####[facility] [address] [place], [address] MCHC Normal 32-36 [facility] Comment on above: Result Comment: Canc elled via OM: Order cancelled - Patient discharged Performed By: #### L 500.2500, L100.0100 ####[facility] [address] [place], [address] MCV Normal 81-99 [facility] Comment on above: Result Comment: Canc elled via OM: Order cancelled - Patient discharged Performed By: #### L 500.2500, L100.0100 ####[facility] [address] [place], [address] NEUT% Normal 47-70 [facility] Comment on above: Result Comment: Canc elled via OM: Order cancelled - Patient discharged Performed By: #### L 500.2500, L100.0100 ####[facility] [address] [place], [address] PLT Normal 150-450 [facility] Comment on above: Result Comment: Canc elled via OM: Order cancelled - Patient discharged Performed By: #### L 500.2500, L100.0100 ####[facility] [address] [place], [address] RBC Normal 4.2-5.4 [facility] Comment on above: Result Comment: Canc elled via OM: Order cancelled - Patient discharged Performed By: #### L 500.2500, L100.0100 ####[facility] [address] [place], [address] RDW CV Normal 11.6-14.6 [facility] Comment on above: Result Comment: Canc elled via OM: Order cancelled - Patient discharged Performed By: #### L 500.2500, L100.0100 ####[facility] [address] [place], [address] RDW SD Normal 35.1-43.9 [facility] Comment on above: Result Comment: Canc elled via OM: Order cancelled - Patient discharged Performed By: #### L 500.2500, L100.0100 ####[facility] [address] [place], [address] WBC Normal 4.4-11.0 [facility] Comment on above: Result Comment: Canc elled via OM: Order cancelled - Patient discharged Performed By: #### L 500.2500, L100.0100 ####[facility] [address] [place], [address] Basic Metabolic Profile (BMP )on 03-28-2025 BUN Normal 4-19 [facility] Comment on above: Result Comment: Canc elled via OM: Order cancelled - Patient discharged Performed By: #### L 500.2500, L100.0100 ####[facility] [address] [place], [address] BUN/CRE Normal 10-20 [facility] Comment on above: Result Comment: Canc elled via OM: Order cancelled - Patient discharged Performed By: #### L 500.2500, L100.0100 ####[facility] [address] [place], [address] Calcium Normal 7.6-11.0 [facility] Comment on above: Result Comment: Canc elled via OM: Order cancelled - Patient discharged Performed By: #### L 500.2500, L100.0100 ####[facility] [address] [place], [address] CL Normal 98-108 [facility] Comment on above: Result Comment: Canc elled via OM: Order cancelled - Patient discharged Performed By: #### L 500.2500, L100.0100 ####[facility] [address] [place], [address] CO2 Normal 21.0-32.0 [facility] Comment on above: Result Comment: Canc elled via OM: Order cancelled - Patient discharged Performed By: #### L 500.2500, L100.0100 ####[facility] [address] [place], [address] CREAT,SERUM Normal 0.70-1.20 [facility] Comment on above: Result Comment: Canc elled via OM: Order cancelled - Patient discharged Performed By: #### L 500.2500, L100.0100 ####[facility] [address] [place], [address] eGFR Normal >60 [facility] Comment on above: Result Comment: Canc elled via OM: Order cancelled - Patient discharged Performed By: #### L 500.2500, L100.0100 ####[facility] [address] [place], [address] GAP Normal 5-15 [facility] Comment on above: Result Comment: Canc elled via OM: Order cancelled - Patient discharged Performed By: #### L 500.2500, L100.0100 ####[facility] [address] [place], [address] GLU Normal 70-99 [facility] Comment on above: Result Comment: Canc elled via OM: Order cancelled - Patient discharged Performed By: #### L 500.2500, L100.0100 ####[facility] [address] [place], [address] Potassium Normal 3.3-5.1 [facility] Comment on above: Result Comment: Canc elled via OM: Order cancelled - Patient discharged Performed By: #### L 500.2500, L100.0100 ####[facility] [address] [place], [address] Basic Metabolic Profile (BMP) Normal 133-145 [facility] Comment on above: Result Comment: Canc elled via OM: Order cancelled - Patient discharged Performed By: #### L 500.2500, L100.0100 ####[facility] [address] [place], [address] CBC W/Diff, Automatedon 05-0 -2024 Absolute Neut Normal 2.0-7.7 [facility] Comment on above: Result Comment: Canc elled via OM: Order cancelled - Patient discharged Performed By: #### L 500.2500, L100.0100 ####[facility] [address] [place], [address] HCT Normal 37-47 [facility] Comment on above: Result Comment: Canc elled via OM: Order cancelled - Patient discharged Performed By: #### L 500.2500, L100.0100 ####[facility] [address] [place], [address] HGB Normal 12.0-15.0 [facility] Comment on above: Result Comment: Canc elled via OM: Order cancelled - Patient discharged Performed By: #### L 500.2500, L100.0100 ####[facility] [address] [place], [address] MCH Normal 27.0-32.0 [facility] Comment on above: Result Comment: Canc elled via OM: Order cancelled - Patient discharged Performed By: #### L 500.2500, L100.0100 ####[facility] [address] [place], [address] MCHC Normal 32-36 [facility] Comment on above: Result Comment: Canc elled via OM: Order cancelled - Patient discharged Performed By: #### L 500.2500, L100.0100 ####[facility] [address] [place], [address] MCV Normal 81-99 [facility] Comment on above: Result Comment: Canc elled via OM: Order cancelled - Patient discharged Performed By: #### L 500.2500, L100.0100 ####[facility] [address] [place], [address] NEUT% Normal 47-70 [facility] Comment on above: Result Comment: Canc elled via OM: Order cancelled - Patient discharged Performed By: #### L 500.2500, L100.0100 ####[facility] [address] [place], [address] PLT Normal 150-450 [facility] Comment on above: Result Comment: Canc elled via OM: Order cancelled - Patient discharged Performed By: #### L 500.2500, L100.0100 ####[facility] [address] [place], [address] RBC Normal 4.2-5.4 [facility] Comment on above: Result Comment: Canc elled via OM: Order cancelled - Patient discharged Performed By: #### L 500.2500, L100.0100 ####[facility] [address] [place], [address] RDW CV Normal 11.6-14.6 [facility] Comment on above: Result Comment: Canc elled via OM: Order cancelled - Patient discharged Performed By: #### L 500.2500, L100.0100 ####[facility] [address] [place], [address] RDW SD Normal 35.1-43.9 [facility] Comment on above: Result Comment: Canc elled via OM: Order cancelled - Patient discharged Performed By: #### L 500.2500, L100.0100 ####[facility] [address] [place], [address] WBC Normal 4.4-11.0 [facility] Comment on above: Result Comment: Canc elled via OM: Order cancelled - Patient discharged Performed By: #### L 500.2500, L100.0100 ####[facility] [address] [place], [address] Basic Metabolic Profile (BMP )on 03-27-2025 BUN Normal 4-19 [facility] Comment on above: Result Comment: Canc elled via OM: Order cancelled - Patient discharged Performed By: #### L 500.2500, L100.0100 ####[facility] [address] [place], [address] BUN/CRE Normal 10-20 [facility] Comment on above: Result Comment: Canc elled via OM: Order cancelled - Patient discharged Performed By: #### L 500.2500, L100.0100 ####[facility] [address] [place], [address] Calcium Normal 7.6-11.0 [facility] Comment on above: Result Comment: Canc elled via OM: Order cancelled - Patient discharged Performed By: #### L 500.2500, L100.0100 ####[facility] [address] [place], [address] CL Normal 98-108 [facility] Comment on above: Result Comment: Canc elled via OM: Order cancelled - Patient discharged Performed By: #### L 500.2500, L100.0100 ####[facility] [address] [place], [address] CO2 Normal 21.0-32.0 [facility] Comment on above: Result Comment: Canc elled via OM: Order cancelled - Patient discharged Performed By: #### L 500.2500, L100.0100 ####[facility] [address] [place], [address] CREAT,SERUM Normal 0.70-1.20 [facility] Comment on above: Result Comment: Canc elled via OM: Order cancelled - Patient discharged Performed By: #### L 500.2500, L100.0100 ####[facility] [address] [place], [address] eGFR Normal >60 [facility] Comment on above: Result Comment: Canc elled via OM: Order cancelled - Patient discharged Performed By: #### L 500.2500, L100.0100 ####[facility] [address] [place], [address] GAP Normal 5-15 [facility] Comment on above: Result Comment: Canc elled via OM: Order cancelled - Patient discharged Performed By: #### L 500.2500, L100.0100 ####[facility] [address] [place], [address] GLU Normal 70-99 [facility] Comment on above: Result Comment: Canc elled via OM: Order cancelled - Patient discharged Performed By: #### L 500.2500, L100.0100 ####[facility] [address] [place], [address] Potassium Normal 3.3-5.1 [facility] Comment on above: Result Comment: Canc elled via OM: Order cancelled - Patient discharged Performed By: #### L 500.2500, L100.0100 ####[facility] [address] [place], [address] Basic Metabolic Profile (BMP) Normal 133-145 [facility] Comment on above: Result Comment: Canc elled via OM: Order cancelled - Patient discharged Performed By: #### L 500.2500, L100.0100 ####[facility] [address] [place], [address] CBC W/Diff, Automatedon 05-0 2-2024 Absolute Neut Normal 2.0-7.7 [facility] Comment on above: Result Comment: Canc elled via OM: Order cancelled - Patient discharged Performed By: #### L 500.2500, L100.0100 ####[facility] [address] [place], [address] HCT Normal 37-47 [facility] Comment on above: Result Comment: Canc elled via OM: Order cancelled - Patient discharged Performed By: #### L 500.2500, L100.0100 ####[facility] [address] [place], [address] HGB Normal 12.0-15.0 [facility] Comment on above: Result Comment: Canc elled via OM: Order cancelled - Patient discharged Performed By: #### L 500.2500, L100.0100 ####[facility] [address] [place], [address] MCH Normal 27.0-32.0 [facility] Comment on above: Result Comment: Canc elled via OM: Order cancelled - Patient discharged Performed By: #### L 500.2500, L100.0100 ####[facility] [address] [place], [address] MCHC Normal 32-36 [facility] Comment on above: Result Comment: Canc elled via OM: Order cancelled - Patient discharged Performed By: #### L 500.2500, L100.0100 ####[facility] [address] [place], [address] MCV Normal 81-99 [facility] Comment on above: Result Comment: Canc elled via OM: Order cancelled - Patient discharged Performed By: #### L 500.2500, L100.0100 ####[facility] [address] [place], [address] NEUT% Normal 47-70 [facility] Comment on above: Result Comment: Canc elled via OM: Order cancelled - Patient discharged Performed By: #### L 500.2500, L100.0100 ####[facility] [address] [place], [address] PLT Normal 150-450 [facility] Comment on above: Result Comment: Canc elled via OM: Order cancelled - Patient discharged Performed By: #### L 500.2500, L100.0100 ####[facility] [address] [place], [address] RBC Normal 4.2-5.4 [facility] Comment on above: Result Comment: Canc elled via OM: Order cancelled - Patient discharged Performed By: #### L 500.2500, L100.0100 ####[facility] [address] [place], [address] RDW CV Normal 11.6-14.6 [facility] Comment on above: Result Comment: Canc elled via OM: Order cancelled - Patient discharged Performed By: #### L 500.2500, L100.0100 ####[facility] [address] [place], [address] RDW SD Normal 35.1-43.9 [facility] Comment on above: Result Comment: Canc elled via OM: Order cancelled - Patient discharged Performed By: #### L 500.2500, L100.0100 ####[facility] [address] [place], [address] WBC Normal 4.4-11.0 [facility] Comment on above: Result Comment: Canc elled via OM: Order cancelled - Patient discharged Performed By: #### L 500.2500, L100.0100 ####[facility] [address] [place], [address] Basic Metabolic Profile (BMP )on 03-26-2025 BUN Normal 4-19 [facility] Comment on above: Result Comment: Canc elled via OM: Order cancelled - Patient discharged Performed By: #### L 100.0100, L500.2500 ####[facility] [address] [place], [address] BUN/CRE Normal 10-20 [facility] Comment on above: Result Comment: Canc elled via OM: Order cancelled - Patient discharged Performed By: #### L 100.0100, L500.2500 ####[facility] [address] [place], [address] Calcium Normal 7.6-11.0 [facility] Comment on above: Result Comment: Canc elled via OM: Order cancelled - Patient discharged Performed By: #### L 100.0100, L500.2500 ####[facility] [address] [place], [address] CL Normal 98-108 [facility] Comment on above: Result Comment: Canc elled via OM: Order cancelled - Patient discharged Performed By: #### L 100.0100, L500.2500 ####[facility] [address] [place], [address] CO2 Normal 21.0-32.0 [facility] Comment on above: Result Comment: Canc elled via OM: Order cancelled - Patient discharged Performed By: #### L 100.0100, L500.2500 ####[facility] [address] [place], [address] CREAT,SERUM Normal 0.70-1.20 [facility] Comment on above: Result Comment: Canc elled via OM: Order cancelled - Patient discharged Performed By: #### L 100.0100, L500.2500 ####[facility] [address] [place], [address] eGFR Normal >60 [facility] Comment on above: Result Comment: Canc elled via OM: Order cancelled - Patient discharged Performed By: #### L 100.0100, L500.2500 ####[facility] [address] [place], [address] GAP Normal 5-15 [facility] Comment on above: Result Comment: Canc elled via OM: Order cancelled - Patient discharged Performed By: #### L 100.0100, L500.2500 ####[facility] [address] [place], [address] GLU Normal 70-99 [facility] Comment on above: Result Comment: Canc elled via OM: Order cancelled - Patient discharged Performed By: #### L 100.0100, L500.2500 ####[facility] [address] [place], [address] Potassium Normal 3.3-5.1 [facility] Comment on above: Result Comment: Canc elled via OM: Order cancelled - Patient discharged Performed By: #### L 100.0100, L500.2500 ####[facility] [address] [place], [address] Basic Metabolic Profile (BMP) Normal 133-145 [facility] Comment on above: Result Comment: Canc elled via OM: Order cancelled - Patient discharged Performed By: #### L 100.0100, L500.2500 ####[facility] [address] [place], [address] CBC W/Diff, Automatedon 05-0 -2024 Absolute Neut Normal 2.0-7.7 [facility] Comment on above: Result Comment: Canc elled via OM: Order cancelled - Patient discharged Performed By: #### L 100.0100, L500.2500 ####[facility] [address] [place], [address] HCT Normal 37-47 [facility] Comment on above: Result Comment: Canc elled via OM: Order cancelled - Patient discharged Performed By: #### L 100.0100, L500.2500 ####[facility] [address] [place], [address] HGB Normal 12.0-15.0 [facility] Comment on above: Result Comment: Canc elled via OM: Order cancelled - Patient discharged Performed By: #### L 100.0100, L500.2500 ####[facility] [address] [place], [address] MCH Normal 27.0-32.0 [facility] Comment on above: Result Comment: Canc elled via OM: Order cancelled - Patient discharged Performed By: #### L 100.0100, L500.2500 ####[facility] [address] [place], [address] MCHC Normal 32-36 [facility] Comment on above: Result Comment: Canc elled via OM: Order cancelled - Patient discharged Performed By: #### L 100.0100, L500.2500 ####[facility] [address] [place], [address] MCV Normal 81-99 [facility] Comment on above: Result Comment: Canc elled via OM: Order cancelled - Patient discharged Performed By: #### L 100.0100, L500.2500 ####[facility] [address] [place], [address] NEUT% Normal 47-70 [facility] Comment on above: Result Comment: Canc elled via OM: Order cancelled - Patient discharged Performed By: #### L 100.0100, L500.2500 ####[facility] [address] [place], [address] PLT Normal 150-450 [facility] Comment on above: Result Comment: Canc elled via OM: Order cancelled - Patient discharged Performed By: #### L 100.0100, L500.2500 ####[facility] [address] [place], [address] RBC Normal 4.2-5.4 [facility] Comment on above: Result Comment: Canc elled via OM: Order cancelled - Patient discharged Performed By: #### L 100.0100, L500.2500 ####[facility] [facility] [address] [place], [address] RDW CV Normal 11.6-14.6 [facility] Comment on above: Result Comment: Canc elled via OM: Order cancelled - Patient discharged Performed By: #### L 100.0100, L500.2500 ####[facility] [address] [place], [address] RDW SD Normal 35.1-43.9 [facility] Comment on above: Result Comment: Canc elled via OM: Order cancelled - Patient discharged Performed By: #### L 100.0100, L500.2500 ####[facility] [address] [place], [address] WBC Normal 4.4-11.0 [facility] Comment on above: Result Comment: Canc elled via OM: Order cancelled - Patient discharged Performed By: #### L 100.0100, L500.2500 ####[facility] [address] [place], [address] Respiratory Cultureon 2024 RESPC Normal [facility] Comment on above: Performed By: #### M 100.2400, M100.2000 ####[facility] [address] [place], [address] 12 Lead EKGon 03-25-2025 12 Lead EKG Normal [facility] Absolute lymphocyte countOrd ered By: Jose Armando Wood on 03-25-2025 Lymphocytes Auto (Unsp spec) [#/Vol] 1.08 10*3/uL 0.83-4.51 [facility] Absolute neutrophil countOrd ered By: Jose Armando Wood on 03-25-2025 Neutrophils (Bld) [#/Vol] 22.6 10*3/uL High 2.0-7.7 [facility] Anion gap in Serum or Plasma Ordered By: Jose Armando Wood on 03-25-2025 Anion gap [Moles/Vol] 9 mmol/L 5-15 [facility] Automated lymphocyte count a s percentage of total leukocytesOrdered By: Jose Armando Nina on 03-25-2025 Lymphocytes/100 WBC Auto (Unsp spec) 4.2 % Low 19-41 [facility] BUN/creatinine ratioOrdered By: Jose Armando Nina on 03-25-2025 Urea nitrogen/Creatinine [Mass ratio] 41.3 mg/mg High 10-20 [facility] Basic Metabolic Profile (BMP )on 03-25-2025 BUN/CRE 41.3 RATIO High 10-20 [facility] Comment on above: Performed By: #### L 500.2500, L100.0100 ####[facility] [address] [place], [address] Calcium [Mass/Vol] 9.3 mg/dL Normal 7.6-11.0 [facility] Comment on above: Performed By: #### L 500.2500, L100.0100 ####[facility] [address] [place], [address] Chloride [Moles/Vol] 87 mmol/L Low 98-108 [facility] Comment on above: Performed By: #### L 500.2500, L100.0100 ####[facility] [address] [place], [address] CO2 [Moles/Vol] 38.5 mmol/L High 21.0-32.0 [facility] Comment on above: Performed By: #### L 500.2500, L100.0100 ####[facility] [address] [place], [address] Creatinine [Mass/Vol] 0.80 mg/dL Normal 0.70-1.20 [facility] Comment on above: Performed By: #### L 500.2500, L100.0100 ####[facility] [address] [place], [address] ECRCL 74.62 ml/min Normal 50-250 [facility] Comment on above: Performed By: #### L 500.2500, L100.0100 ####[facility] [address] [place], [address] GAP 9 Normal 5-15 [facility] Comment on above: Performed By: #### L 500.2500, L100.0100 ####[facility] [address] [place], [address] GFR/1.73 sq M.predicted among non-blacks MDRD (S/P/Bld) [Vol rate/Area] 78 mL/min/{1.73_m2} Normal >60 [facility] Comment on above: Result Comment: mL/m in/1.73m2 CKD-EPI Creatinine Equation (2020) Performed By: #### L 500.2500, L100.0100 ####[facility] [address] [place], [address] Glucose [Mass/Vol] 188 mg/dL High 70-99 [facility] Comment on above: Performed By: #### L 500.2500, L100.0100 ####[facility] [address] [place], [address] Potassium [Moles/Vol] 4.9 mmol/L Normal 3.3-5.1 [facility] Comment on above: Performed By: #### L 500.2500, L100.0100 ####[facility] [address] [place], [address] Sodium [Moles/Vol] 135 mmol/L Normal 133-145 [facility] Comment on above: Performed By: #### L 500.2500, L100.0100 ####[facility] [address] [place], [address] Urea nitrogen [Mass/Vol] 33 mg/dL High 4-19 [facility] Comment on above: Performed By: #### L 500.2500, L100.0100 ####[facility] [address] [place], [address] BUN Normal 4-19 [facility] Comment on above: Result Comment: Canc elled via OM: Order cancelled - Patient discharged Performed By: #### L 500.2500, L100.0100 ####[facility] [address] [place], [address] BUN/CRE Normal 10-20 [facility] Comment on above: Result Comment: Canc elled via OM: Order cancelled - Patient discharged Performed By: #### L 500.2500, L100.0100 ####[facility] [address] [place], [address] Calcium Normal 7.6-11.0 [facility] Comment on above: Result Comment: Canc elled via OM: Order cancelled - Patient discharged Performed By: #### L 500.2500, L100.0100 ####[facility] [address] [place], [address] CL Normal 98-108 [facility] Comment on above: Result Comment: Canc elled via OM: Order cancelled - Patient discharged Performed By: #### L 500.2500, L100.0100 ####[facility] [address] [place], [address] CO2 Normal 21.0-32.0 [facility] Comment on above: Result Comment: Canc elled via OM: Order cancelled - Patient discharged Performed By: #### L 500.2500, L100.0100 ####[facility] [address], [address] CREAT,SERUM Normal 0.70-1.20 [facility] Comment on above: Result Comment: Canc elled via OM: Order cancelled - Patient discharged Performed By: #### L 500.2500, L100.0100 ####[facility] [address] [place], [address] eGFR Normal >60 [facility] Comment on above: Result Comment: Canc elled via OM: Order cancelled - Patient discharged Performed By: #### L 500.2500, L100.0100 ####[facility] [address] [place], [address] GAP Normal 5-15 [facility] Comment on above: Result Comment: Canc elled via OM: Order cancelled - Patient discharged Performed By: #### L 500.2500, L100.0100 ####[facility] [address] [place], [address] GLU Normal 70-99 [facility] Comment on above: Result Comment: Canc elled via OM: Order cancelled - Patient discharged Performed By: #### L 500.2500, L100.0100 ####[facility] [address] [place], [address] Potassium Normal 3.3-5.1 [facility] Comment on above: Result Comment: Canc elled via OM: Order cancelled - Patient discharged Performed By: #### L 500.2500, L100.0100 ####[facility] [address] [place], [address] Basic Metabolic Profile (BMP) Normal 133-145 [facility] Comment on above: Result Comment: Canc elled via OM: Order cancelled - Patient discharged Performed By: #### L 500.2500, L100.0100 ####[facility] [address] [place], [address] Basophil percentageOrdered B y: Jose Armando Wood on 03-25-2025 Basophils/100 WBC (Bld) 0.2 % 0-1 [facility] Blood manual differential co mment interpretation (narrative result)Ordered By: Jose Armando Wood on 03-25-2025 Manual differential comment Eugene (Bld) [Interp] COMMENT [facility] Comment on above: NEUTROPHILIA.MONCYTO SIS. CBC W/Diff, Automatedon - SMEAR COMMENT COMMENT Normal [facility] Comment on above: Result Comment: NEUT ROPHILIA.MONCYTOSIS. Performed By: #### L 500.2500, L100.0100 ####[facility] [address] [place], [address] Absolute Neut Normal 2.0-7.7 [facility] Comment on above: Result Comment: Canc elled via OM: Order cancelled - Patient discharged Performed By: #### L 500.2500, L100.0100 ####[facility] [address] [place], [address] HCT Normal 37-47 [facility] Comment on above: Result Comment: Canc elled via OM: Order cancelled - Patient discharged Performed By: #### L 500.2500, L100.0100 ####[facility] [address] [place], [address] HGB Normal 12.0-15.0 [facility] Comment on above: Result Comment: Canc elled via OM: Order cancelled - Patient discharged Performed By: #### L 500.2500, L100.0100 ####[facility] [address] [place], [address] MCH Normal 27.0-32.0 [facility] Comment on above: Result Comment: Canc elled via OM: Order cancelled - Patient discharged Performed By: #### L 500.2500, L100.0100 ####[facility] [address] [place], [address] MCHC Normal 32-36 [facility] Comment on above: Result Comment: Canc elled via OM: Order cancelled - Patient discharged Performed By: #### L 500.2500, L100.0100 ####[facility] [address] [place], [address] MCV Normal 81-99 [facility] Comment on above: Result Comment: Canc elled via OM: Order cancelled - Patient discharged Performed By: #### L 500.2500, L100.0100 ####[facility] [address] [place], [address] NEUT% Normal 47-70 [facility] Comment on above: Result Comment: Canc elled via OM: Order cancelled - Patient discharged Performed By: #### L 500.2500, L100.0100 ####[facility] [address] [place], [address] PLT Normal 150-450 [facility] Comment on above: Result Comment: Canc elled via OM: Order cancelled - Patient discharged Performed By: #### L 500.2500, L100.0100 ####[facility] [address] [place], [address] RBC Normal 4.2-5.4 [facility] Comment on above: Result Comment: Canc elled via OM: Order cancelled - Patient discharged Performed By: #### L 500.2500, L100.0100 ####[facility] [address] [place], [address] RDW CV Normal 11.6-14.6 [facility] Comment on above: Result Comment: Canc elled via OM: Order cancelled - Patient discharged Performed By: #### L 500.2500, L100.0100 ####[facility] [address] [place], [address] RDW SD Normal 35.1-43.9 [facility] Comment on above: Result Comment: Canc elled via OM: Order cancelled - Patient discharged Performed By: #### L 500.2500, L100.0100 ####[facility] [address] [place], [address] WBC Normal 4.4-11.0 [facility] Comment on above: Result Comment: Canc elled via OM: Order cancelled - Patient discharged Performed By: #### L 500.2500, L100.0100 ####[facility] [address] [place], [address] Carbon dioxide, total [Moles /volume] in Central venous bloodOrdered By: Jose Armando Wood on 03-25-2025 CO2 [Moles/Vol] 38.5 mmol/L High 21.0-32.0 [facility] Chest 1 View (Portable)on Chest 1 View (Portable) Normal [facility] Chloride assayOrdered By: Tanner Wood on 03-25-2025 Chloride [Moles/Vol] 87 mmol/L Low 98-108 [facility] Emergency Department Summary on 03-25-2025 Emergency Department Summary Normal [facility] Eosinophil percentageOrdered By: Jose Armando Wood on 03-25-2025 Eosinophils/100 WBC (Bld) 0.0 % 0-5 [facility] Erythrocyte distribution wid th ratioOrdered By: Jose Armando Wood on 03-25-2025 Erythrocyte distribution width (RBC) [Ratio] 14.1 % 11.6-14.6 [facility] Erythrocyte distribution wid th standard deviationOrdered By: Jose Armando Wood on 03-25-2025 Erythrocyte distribution width (RBC) [Ratio] 47.7 fl High 35.1-43.9 [facility] Glomerular filtration rate ( GFR) estimation/1.73 sq m using serum, plasma, or whole bOrdered By: Jose Armando Wood on 03-25-2025 GFR/1.73 sq M.predicted among non-blacks MDRD (S/P/Bld) [Vol rate/Area] 78 mL/min/{1.73_m2} >60 [facility] Comment on above: mL/min/1.73m2 CKD-EP I Creatinine Equation (2020) Hematocrit Auto (Bld) [Volum e fraction]Ordered By: Jose Armando Wood on 03-25-2025 Hematocrit (Bld) [Volume fraction] 41.5 % 37-47 [facility] Hemoglobin measurementOrdere d By: Jose Armando Wood on 03-25-2025 Hemoglobin (Bld) [Mass/Vol] 12.8 g/dL 12.0-15.0 [facility] Immature granulocytes/100 WB C Auto (Bld)Ordered By: Jose Armando Wood on 03-25-2025 Immature granulocytes/100 WBC (Bld) 0.800 % 0.0-0.9 [facility] Comment on above: IG% - Immature Granu locytes (promyelocytes, myelocytes and metamyelocytes) > 1% indicates that a LEFT SHIFT is Present. MCV (mean corpuscular volume ) determinationOrdered By: Jose Armando Wood on 03-25-2025 MCV (RBC) [Entitic vol] 92.8 fL 81-99 [facility] Mean corpuscular hemoglobin (MCH) determinationOrdered By: Jose Armando Wood on 03-25-2025 MCH (RBC) [Entitic mass] 28.6 pg 27.0-32.0 [facility] Mean corpuscular hemoglobin concentration (MCHC) determinationOrdered By: Jose Armando Wood on 03-25-2025 MCHC (RBC) [Mass/Vol] 30.8 g/dL Low 32-36 [facility] Mean platelet volume determi nationOrdered By: Jose Armando Wood on 03-25-2025 Platelet mean volume (Bld) [Entitic vol] 9.9 fL 6.2-12.0 [facility] Monocyte percentageOrdered B y: Jose Armando Wood on 03-25-2025 Monocytes/100 WBC (Bld) 7.8 % 0-10 [facility] Neutrophil percentageOrdered By: Jose Armando Wood on 03-25-2025 Neutrophils/100 WBC (Bld) 87.0 % High 47-70 [facility] Nucleated red blood cell per centageOrdered By: Jose Armando Wood on 03-25-2025 Nucleated RBC/100 WBC (Bld) [Ratio] 0 % 0-5 [facility] Platelet countOrdered By: Tanner oWod on 03-25-2025 Platelets (Bld) [#/Vol] 414 10*3/uL 150-450 [facility] Potassium measurement (mass/ volume)Ordered By: Jose Armando Wood on 03-25-2025 Potassium (Unsp spec) [Mass/Vol] 4.9 mmol/L 3.3-5.1 [facility] RBC Auto (Bld) [#/Vol]Ordere d By: Jose Armando Wood on 03-25-2025 RBC (Bld) [#/Vol] 4.47 10*6/uL 4.2-5.4 [facility] Serum creatinine measurement (mass/volume)Ordered By: Jose Armando Wood on 03-25-2025 Creatinine [Mass/Vol] 0.80 mg/dL 0.70-1.20 [facility] Serum glucose measurement (m ass/volume)Ordered By: Jose Armando Wood on 03-25-2025 Glucose [Mass/Vol] 188 mg/dL High 70-99 [facility] Serum or plasma calcium diallo urement (mass/volume)Ordered By: Jose Armando Wood on 03-25-2025 Calcium [Mass/Vol] 9.3 mg/dL 7.6-11.0 [facility] Serum or plasma urea nitroge n measurement (mass/volume)Ordered By: Jose Armando Wood on 03-25-2025 Urea nitrogen [Mass/Vol] 33 mg/dL High 4-19 [facility] Sodium levelOrdered By: Jose Armando Wood on 03-25-2025 Sodium [Moles/Vol] 135 mmol/L 133-145 [facility] White blood cell (WBC) count Ordered By: Jose Armando Wood on 03-25-2025 WBC (Bld) [#/Vol] 25.9 10*3/uL High 4.4-11.0 [facility] Absolute lymphocyte countOrd ered By: Cindi Lizarraga on 03-24-2025 Lymphocytes Auto (Unsp spec) [#/Vol] 0.66 10*3/uL Low 0.83-4.51 [facility] Absolute neutrophil countOrd ered By: Cindi Lizarraga on 03-24-2025 Neutrophils (Bld) [#/Vol] 16.2 10*3/uL High 2.0-7.7 [facility] Anion gap in Serum or Plasma Ordered By: Cindi Lizarraga on 03-24-2025 Anion gap [Moles/Vol] 4 mmol/L Low 5-15 [facility] Automated lymphocyte count a s percentage of total leukocytesOrdered By: Cindi Lizarraga on 03-24-2025 Lymphocytes/100 WBC Auto (Unsp spec) 3.6 % Low 19-41 [facility] BUN/creatinine ratioOrdered By: Cindi Lizarraga on 03-24-2025 Urea nitrogen/Creatinine [Mass ratio] 43.1 mg/mg High 10-20 [facility] Basic Metabolic Profile (BMP )on 03-24-2025 BUN/CRE 43.1 RATIO High 10-20 [facility] Comment on above: Performed By: #### L 100.0100, L500.2500 ####[facility] [address] [place], [address] Calcium [Mass/Vol] 9.2 mg/dL Normal 7.6-11.0 [facility] Comment on above: Performed By: #### L 100.0100, L500.2500 ####[facility] [address] [place], [address] Chloride [Moles/Vol] 89 mmol/L Low 98-108 [facility] Comment on above: Performed By: #### L 100.0100, L500.2500 ####[facility] [address] [place], [address] CO2 [Moles/Vol] 40.9 mmol/L High 21.0-32.0 [facility] Comment on above: Performed By: #### L 100.0100, L500.2500 ####[facility] [address] [place], [address] Creatinine [Mass/Vol] 0.74 mg/dL Normal 0.70-1.20 [facility] Comment on above: Performed By: #### L 100.0100, L500.2500 ####[facility] [address] [place], [address] ECRCL 77.65 ml/min Normal 50-250 [facility] Comment on above: Performed By: #### L 100.0100, L500.2500 ####[facility] [address] [place], [address] GAP 4 Low 5-15 [facility] Comment on above: Performed By: #### L 100.0100, L500.2500 ####[facility] [address] [place], [address] GFR/1.73 sq M.predicted among non-blacks MDRD (S/P/Bld) [Vol rate/Area] 87 mL/min/{1.73_m2} Normal >60 [facility] Comment on above: Result Comment: mL/m in/1.73m2 CKD-EPI Creatinine Equation (2020) Performed By: #### L 100.0100, L500.2500 ####[facility] [address] [place], [address] Glucose [Mass/Vol] 163 mg/dL High 70-99 [facility] Comment on above: Performed By: #### L 100.0100, L500.2500 ####[facility] [address] [place], [address] Potassium [Moles/Vol] 5.6 mmol/L High 3.3-5.1 [facility] Comment on above: Performed By: #### L 100.0100, L500.2500 ####[facility] [address] [place], [address] Sodium [Moles/Vol] 134 mmol/L Normal 133-145 [facility] Comment on above: Performed By: #### L 100.0100, L500.2500 ####[facility] [address] [place], [address] Urea nitrogen [Mass/Vol] 32 mg/dL High 4-19 [facility] Comment on above: Performed By: #### L 100.0100, L500.2500 ####[facility] [address] [place], [address] Basophil percentageOrdered B y: Cindi Lizarraga on 03-24-2025 Basophils/100 WBC (Bld) 0.2 % 0-1 [facility] CBC W/Diff, Automatedon 04-2 Absolute Lymph 0.66 X10 3/uL Low 0.83-4.51 [facility] Comment on above: Performed By: #### L 100.0100, L500.2500 ####[facility] [address] [place], [address] Absolute Neut 16.2 X10 3/uL High 2.0-7.7 [facility] Comment on above: Performed By: #### L 100.0100, L500.2500 ####[facility] [address] [place], [address] Basophils/100 WBC (Bld) 0.2 % Normal 0-1 [facility] Comment on above: Performed By: #### L 100.0100, L500.2500 ####[facility] [address] [place], [address] Eosinophils/100 WBC (Bld) 2.0 % Normal 0-5 [facility] Comment on above: Performed By: #### L 100.0100, L500.2500 ####[facility] [address] [place], [address] Erythrocyte distribution width (RBC) [Ratio] 14.0 % Normal 11.6-14.6 [facility] Comment on above: Performed By: #### L 100.0100, L500.2500 ####[facility] [address] [place], [address] Hematocrit (Bld) [Volume fraction] 40.5 % Normal 37-47 [facility] Comment on above: Performed By: #### L 100.0100, L500.2500 ####[facility] [address] [place], [address] Hemoglobin (Bld) [Mass/Vol] 12.3 g/dL Normal 12.0-15.0 [facility] Comment on above: Performed By: #### L 100.0100, L500.2500 ####[facility] [address] [place], [address] IG% 0.900 Normal 0.0-0.9 [facility] Comment on above: Result Comment: IG% - Immature Granulocytes (promyelocytes, myelocytes andmetamyelocytes) > 1% indicates that a LEFT SHIFT is Present. Performed By: #### L 100.0100, L500.2500 ####[facility] [address] [place], [address] Lymphocytes/100 WBC (Bld) 3.6 % Low 19-41 [facility] Comment on above: Performed By: #### L 100.0100, L500.2500 ####[facility] [address] [place], [address] MCH (RBC) [Entitic mass] 28.5 pg Normal 27.0-32.0 [facility] Comment on above: Performed By: #### L 100.0100, L500.2500 ####[facility] [address] [place], [address] MCHC (RBC) [Mass/Vol] 30.4 g/dL Low 32-36 [facility] Comment on above: Performed By: #### L 100.0100, L500.2500 ####[facility] [address] [place], [address] MCV (RBC) [Entitic vol] 93.8 fL Normal 81-99 [facility] Comment on above: Performed By: #### L 100.0100, L500.2500 ####[facility] [address] [place], [address] Monocytes/100 WBC (Bld) 3.8 % Normal 0-10 [facility] Comment on above: Performed By: #### L 100.0100, L500.2500 ####[facility] [address] [place], [address] Neutrophils/100 WBC (Bld) 89.5 % High 47-70 [facility] Comment on above: Performed By: #### L 100.0100, L500.2500 ####[facility] [address] [place], [address] Nucleated RBC (Bld) [#/Vol] 0 10*3/uL Normal 0-5 [facility] Comment on above: Performed By: #### L 100.0100, L500.2500 ####[facility] [address] [place], [address] Platelet mean volume (Bld) [Entitic vol] 9.7 fL Normal 6.2-12.0 [facility] Comment on above: Performed By: #### L 100.0100, L500.2500 ####[facility] [address] [place], [address] Platelets (Bld) [#/Vol] 362 10*3/uL Normal 150-450 [facility] Comment on above: Performed By: #### L 100.0100, L500.2500 ####[facility] [address] [place], [address] RBC (Bld) [#/Vol] 4.32 10*6/uL Normal 4.2-5.4 [facility] Comment on above: Performed By: #### L 100.0100, L500.2500 ####[facility] [address] [place], [address] RDW SD 48.5 fl High 35.1-43.9 [facility] Comment on above: Performed By: #### L 100.0100, L500.2500 ####[facility] [address] [place], [address] WBC (Bld) [#/Vol] 18.1 10*3/uL High 4.4-11.0 [facility] Comment on above: Performed By: #### L 100.0100, L500.2500 ####[facility] [address] [place], [address] Carbon dioxide, total [Moles /volume] in Central venous bloodOrdered By: Cindi Lizarraga on 03-24-2025 CO2 [Moles/Vol] 40.9 mmol/L High 21.0-32.0 [facility] Chloride assayOrdered By: Na na Zia on 03-24-2025 Chloride [Moles/Vol] 89 mmol/L Low 98-108 [facility] Discharge Instructionon 02-25 Discharge Instruction Normal [facility] Eosinophil percentageOrdered By: Cindi Lizarraga on 03-24-2025 Eosinophils/100 WBC (Bld) 2.0 % 0-5 [facility] Erythrocyte distribution wid th (RBC) [Ratio]Ordered By: Cindi Lizarraga on 03-24-2025 Erythrocyte distribution width (RBC) [Entitic vol] 48.5 fL High 35.1-43.9 [facility] Erythrocyte distribution wid th ratioOrdered By: Cindi Lizarraga 03-24-2025 Erythrocyte distribution width (RBC) [Ratio] 14.0 % 11.6-14.6 [facility] Erythrocyte distribution wid th standard deviationOrdered By: Cindi Lizarraga on 03-24-2025 Erythrocyte distribution width (RBC) [Ratio] 48.5 fl High 35.1-43.9 [facility] Estimation of creatinine junie aranceOrdered By: Cindi Lizarraga on 03-24-2025 Estimated Creatinine Clearance Calc 77.65 ml/min 50-250 [facility] GFR/1.73 sq M.predicted lisa g non-blacks MDRD (S/P/Bld) [Vol rate/Area]Ordered By: Cindi Lizarraga on 03-24-2025 Estimated GFR (MDRD) Non-Af Amer 87 >60 [facility] Comment on above: mL/min/1.73m2 CKD-EP I Creatinine Equation (2020) Glomerular filtration rate ( GFR) estimation/1.73 sq m using serum, plasma, or whole bOrdered By: Cindi Lizarraga on 03-24-2025 GFR/1.73 sq M.predicted among non-blacks MDRD (S/P/Bld) [Vol rate/Area] 87 mL/min/{1.73_m2} >60 [facility] Comment on above: mL/min/1.73m2 CKD-EP I Creatinine Equation (2020) Hematocrit Auto (Bld) [Volum e fraction]Ordered By: Cindi Lizarraga on 03-24-2025 Hematocrit (Bld) [Volume fraction] 40.5 % 37-47 [facility] Hemoglobin measurementOrdere d By: Cindi Lizarraga on 03-24-2025 Hemoglobin (Bld) [Mass/Vol] 12.3 g/dL 12.0-15.0 [facility] Immature granulocytes/100 WB C Auto (Bld)Ordered By: Cindi Lizarraga on 03-24-2025 Immature granulocytes/100 WBC (Bld) 0.900 % 0.0-0.9 [facility] Comment on above: IG% - Immature Granu locytes (promyelocytes, myelocytes and metamyelocytes) > 1% indicates that a LEFT SHIFT is Present. Lymphocytes Auto (Unsp spec) [#/Vol]Ordered By: Cindi Lizarraga on 03-24-2025 Lymphocytes (Bld) [#/Vol] 0.66 10*3/uL Low 0.83-4.51 [facility] Lymphocytes/100 WBC Auto (Un sp spec)Ordered By: Cindi Lizarraga on 03-24-2025 Lymphocytes/100 WBC (Bld) 3.6 % Low 19-41 [facility] MCV (mean corpuscular volume ) determinationOrdered By: Cindi Lizarraga on 03-24-2025 MCV (RBC) [Entitic vol] 93.8 fL 81-99 [facility] Mean corpuscular hemoglobin (MCH) determinationOrdered By: Cindi Lizarraga on 03-24-2025 MCH (RBC) [Entitic mass] 28.5 pg 27.0-32.0 [facility] Mean corpuscular hemoglobin concentration (MCHC) determinationOrdered By: Cindi Lizarraga 03-24-2025 MCHC (RBC) [Mass/Vol] 30.4 g/dL Low 32-36 [facility] Mean platelet volume determi nationOrdered By: Cindi Lizarraga on 03-24-2025 Platelet mean volume (Bld) [Entitic vol] 9.7 fL 6.2-12.0 [facility] Monocyte percentageOrdered B y: Cindi Lizarraga on 03-24-2025 Monocytes/100 WBC (Bld) 3.8 % 0-10 [facility] Neutrophil percentageOrdered By: Cindiana Lizarraga on 03-24-2025 Neutrophils/100 WBC (Bld) 89.5 % High 47-70 [facility] Nucleated red blood cell per centageOrdered By: Cindi Lizarraga on 03-24-2025 Nucleated RBC/100 WBC (Bld) [Ratio] 0 % 0-5 [facility] Platelet countOrdered By: Carol Ann Lizarraga on 03-24-2025 Platelets (Bld) [#/Vol] 362 10*3/uL 150-450 [facility] Potassium (Unsp spec) [Mass/ Vol]Ordered By: Cindi Lizarraga on 03-24-2025 Potassium [Moles/Vol] 5.6 mmol/L High 3.3-5.1 [facility] Potassium measurement (mass/ volume)Ordered By: Cindi Lizarraga on 03-24-2025 Potassium (Unsp spec) [Mass/Vol] 5.6 mmol/L High 3.3-5.1 [facility] RBC Auto (Bld) [#/Vol]Ordere d By: Cindi Lizarraga on 03-24-2025 RBC (Bld) [#/Vol] 4.32 10*6/uL 4.2-5.4 [facility] Serum creatinine measurement (mass/volume)Ordered By: Cindi Lizarraga on 03-24-2025 Creatinine [Mass/Vol] 0.74 mg/dL 0.70-1.20 [facility] Serum glucose measurement (m ass/volume)Ordered By: Cindi Lizarraga on 03-24-2025 Glucose [Mass/Vol] 163 mg/dL High 70-99 [facility] Serum or plasma calcium diallo urement (mass/volume)Ordered By: Cindi Lizarraga 03-24-2025 Calcium [Mass/Vol] 9.2 mg/dL 7.6-11.0 [facility] Serum or plasma urea nitroge n measurement (mass/volume)Ordered By: Cindi Lizarraga 03-24-2025 Urea nitrogen [Mass/Vol] 32 mg/dL High 4-19 [facility] Sodium levelOrdered By: Cindi Lizarraga on 03-24-2025 Sodium [Moles/Vol] 134 mmol/L 133-145 [facility] White blood cell (WBC) count Ordered By: Cindi Lizarraga on 03-24-2025 WBC (Bld) [#/Vol] 18.1 10*3/uL High 4.4-11.0 [facility] Basic Metabolic Profile (BMP )on 03-23-2025 BUN/CRE 43.4 RATIO High 10-20 [facility] Comment on above: Performed By: #### L 500.2500 ####[facility] [address] [place], [address] Calcium [Mass/Vol] 9.3 mg/dL Normal 7.6-11.0 [facility] Comment on above: Performed By: #### L 500.2500 ####[facility] [address] [place], [address] Chloride [Moles/Vol] 91 mmol/L Low 98-108 [facility] Comment on above: Performed By: #### L 500.2500 ####[facility] [address] [place], [address] CO2 [Moles/Vol] 42.1 mmol/L High 21.0-32.0 [facility] Comment on above: Performed By: #### L 500.2500 ####[facility] [address] [place], [address] Creatinine [Mass/Vol] 0.58 mg/dL Low 0.70-1.20 [facility] Comment on above: Performed By: #### L 500.2500 ####[facility] [address] [place], [address] ECRCL 77.57 ml/min Normal 50-250 [facility] Comment on above: Performed By: #### L 500.2500 ####[facility] [address] [place], [address] GAP 5 Normal 5-15 [facility] Comment on above: Performed By: #### L 500.2500 ####[facility] [address] [place], [address] GFR/1.73 sq M.predicted among non-blacks MDRD (S/P/Bld) [Vol rate/Area] 97 mL/min/{1.73_m2} Normal >60 [facility] Comment on above: Result Comment: mL/m in/1.73m2 CKD-EPI Creatinine Equation (2020) Performed By: #### L 500.2500 ####[facility] [address] [place], [address] Glucose [Mass/Vol] 165 mg/dL High 70-99 [facility] Comment on above: Performed By: #### L 500.2500 ####[facility] [address] [place], [address] Potassium [Moles/Vol] 4.9 mmol/L Normal 3.3-5.1 [facility] Comment on above: Performed By: #### L 500.2500 ####[facility] [address] [place], [address] Sodium [Moles/Vol] 138 mmol/L Normal 133-145 [facility] Comment on above: Performed By: #### L 500.2500 ####[facility] [address] [place], [address] Urea nitrogen [Mass/Vol] 25 mg/dL High 4-19 [facility] Comment on above: Performed By: #### L 500.2500 ####[facility] [address] [place], [address] Gram Stainon 03-23-2025 List Antibiotics Las t 48 Hours? zithromax Acceptable Specimen? Yes (<25 Epithelial cells per/lpf) Gram Stain 2+ Gram positive cocci 3+ White Blood Cells Rare Epithelial cells Normal [facility] Comment on above: Performed By: #### M 100.2400, M100.2000 ####[facility] [address] [place], [address] Gram stainOrdered By: Cindi juarez on 03-23-2025 Microscopic observation Gram stain Nom (Unsp spec) [facility] Microbial respiratory cultur eOrdered By: Cindi Lizarraga on 03-23-2025 Microorganism identified Cx Nom (Unsp spec) Proteus mirabilis Abnormal [facility] Phosphoruson 03-21-2025 Phosphate [Mass/Vol] 2.8 mg/dL Normal 2.7-4.5 [facility] Comment on above: Performed By: #### L 501.2300 ####[facility] [address] [place], [address] Serum phosphorus measurement Ordered By: Orlando Maldonado on 03-21-2025 Phosphorus Level 2.8 mg/dL 2.7-4.5 [facility] Bilirubin, totalOrdered By: Orlando Maldonado on 03-20-2025 Bilirubin [Mass/Vol] 0.28 mg/dL 0.00-1.30 [facility] CBC W/Diff, Automatedon 02-25 Absolute Lymph 0.47 X10 3/uL Low 0.83-4.51 [facility] Comment on above: Performed By: #### L 100.0100 ####[facility] [address] [place], [address] Absolute Neut 10.3 X10 3/uL High 2.0-7.7 [facility] Comment on above: Performed By: #### L 100.0100 ####[facility] [address] [place], [address] Basophils/100 WBC (Bld) 0.1 % Normal 0-1 [facility] Comment on above: Performed By: #### L 100.0100 ####[facility] [address] [place], [address] Eosinophils/100 WBC (Bld) 0.0 % Normal 0-5 [facility] Comment on above: Performed By: #### L 100.0100 ####[facility] [address] [place], [address] Erythrocyte distribution width (RBC) [Ratio] 13.5 % Normal 11.6-14.6 [facility] Comment on above: Performed By: #### L 100.0100 ####[facility] [address] [place], [address] Hematocrit (Bld) [Volume fraction] 36.2 % Low 37-47 [facility] Comment on above: Performed By: #### L 100.0100 ####[facility] [address] [place], [address] Hemoglobin (Bld) [Mass/Vol] 10.9 g/dL Low 12.0-15.0 [facility] Comment on above: Performed By: #### L 100.0100 ####[facility] [address] [place], [address] IG% 0.500 Normal 0.0-0.9 [facility] Comment on above: Result Comment: IG% - Immature Granulocytes (promyelocytes, myelocytes andmetamyelocytes) > 1% indicates that a LEFT SHIFT is Present. Performed By: #### L 100.0100 ####[facility] [address] [place], [address] Lymphocytes/100 WBC (Bld) 4.3 % Low 19-41 [facility] Comment on above: Performed By: #### L 100.0100 ####[facility] [address] [place], [address] MCH (RBC) [Entitic mass] 28.8 pg Normal 27.0-32.0 [facility] Comment on above: Performed By: #### L 100.0100 ####[facility] [address] [place], [address] MCHC (RBC) [Mass/Vol] 30.1 g/dL Low 32-36 [facility] Comment on above: Performed By: #### L 100.0100 ####[facility] [address] [place], [address] MCV (RBC) [Entitic vol] 95.8 fL Normal 81-99 [facility] Comment on above: Performed By: #### L 100.0100 ####[facility] [address] [place], [address] Monocytes/100 WBC (Bld) 1.2 % Normal 0-10 [facility] Comment on above: Performed By: #### L 100.0100 ####[facility] [address] [place], [address] Neutrophils/100 WBC (Bld) 93.9 % High 47-70 [facility] Comment on above: Performed By: #### L 100.0100 ####[facility] [address] [place], [address] Nucleated RBC (Bld) [#/Vol] 0 10*3/uL Normal 0-5 [facility] Comment on above: Performed By: #### L 100.0100 ####[facility] [address] [place], [address] Platelet mean volume (Bld) [Entitic vol] 9.8 fL Normal 6.2-12.0 [facility] Comment on above: Performed By: #### L 100.0100 ####[facility] [address] [place], [address] Platelets (Bld) [#/Vol] 315 10*3/uL Normal 150-450 [facility] Comment on above: Performed By: #### L 100.0100 ####[facility] [address] [place], [address] RBC (Bld) [#/Vol] 3.78 10*6/uL Low 4.2-5.4 [facility] Comment on above: Performed By: #### L 100.0100 ####[facility] [address] [place], [address] RDW SD 48.0 fl High 35.1-43.9 [facility] Comment on above: Performed By: #### L 100.0100 ####[facility] [address] [place], [address] WBC (Bld) [#/Vol] 11.0 10*3/uL Normal 4.4-11.0 [facility] Comment on above: Performed By: #### L 100.0100 ####[facility] [address] [place], [address] Calculated very low density lipoprotein (VLDL) cholesterol measurementOrdered By: Orlando Maldonado on 03-20-2025 Calculated very low density lipoprotein (VLDL) cholesterol measurement 10 mg/dL 5-40 [facility] VLDL Cholesterol 10 mg/dL 5-40 [facility] Comprehensive Metabolic Prof ilon 03-20-2025 Albumin [Mass/Vol] 3.5 g/dL Normal 3.4-4.8 [facility] Comment on above: Performed By: #### L 503.7505, L501.2300, L500.4100, L500.4050 ####[facility] [address] [place], [address] Albumin/Globulin [Mass ratio] 1.0 {ratio} Normal 0.9-2.4 [facility] Comment on above: Performed By: #### L 503.7505, L501.2300, L500.4100, L500.4050 ####[facility] [address] [place], [address] ALK PHOS 65 U/L Normal 35-104 [facility] Comment on above: Performed By: #### L 503.7505, L501.2300, L500.4100, L500.4050 ####[facility] [address] [place], [address] ALT [Catalytic activity/Vol] 12 U/L Normal <=34 [facility] Comment on above: Performed By: #### L 503.7505, L501.2300, L500.4100, L500.4050 ####[facility] [address] [place], [address] AST [Catalytic activity/Vol] 13 U/L Normal <=31 [facility] Comment on above: Performed By: #### L 503.7505, L501.2300, L500.4100, L500.4050 ####[facility] [address] [place], [address] Bilirubin [Mass/Vol] 0.28 mg/dL Normal 0.00-1.30 [facility] Comment on above: Performed By: #### L 503.7505, L501.2300, L500.4100, L500.4050 ####[facility] [address] [place], [address] BUN/CRE 24.8 RATIO High 10-20 [facility] Comment on above: Performed By: #### L 503.7505, L501.2300, L500.4100, L500.4050 ####[facility] [address] [place], [address] Calcium [Mass/Vol] 9.1 mg/dL Normal 7.6-11.0 [facility] Comment on above: Performed By: #### L 503.7505, L501.2300, L500.4100, L500.4050 ####[facility] [address] [place], [address] Chloride [Moles/Vol] 89 mmol/L Low 98-108 [facility] Comment on above: Performed By: #### L 503.7505, L501.2300, L500.4100, L500.4050 ####[facility] [address] [place], [address] CO2 [Moles/Vol] 41.8 mmol/L High 21.0-32.0 [facility] Comment on above: Performed By: #### L 503.7505, L501.2300, L500.4100, L500.4050 ####[facility] [address] [place], [address] Creatinine [Mass/Vol] 0.59 mg/dL Low 0.70-1.20 [facility] Comment on above: Performed By: #### L 503.7505, L501.2300, L500.4100, L500.4050 ####[facility] [address] [place], [address] ECRCL 77.16 ml/min Normal 50-250 [facility] Comment on above: Performed By: #### L 503.7505, L501.2300, L500.4100, L500.4050 ####[facility] [address] [place], [address] GAP 8 Normal 5-15 [facility] Comment on above: Performed By: #### L 503.7505, L501.2300, L500.4100, L500.4050 ####[facility] [address] [place], [address] GFR/1.73 sq M.predicted among non-blacks MDRD (S/P/Bld) [Vol rate/Area] 96 mL/min/{1.73_m2} Normal >60 [facility] Comment on above: Result Comment: mL/m in/1.73m2 CKD-EPI Creatinine Equation (2020) Performed By: #### L 503.7505, L501.2300, L500.4100, L500.4050 ####[facility] [address] [place], [address] Globulin (S) [Mass/Vol] 3.3 g/dL Normal 2.2-4.2 [facility] Comment on above: Performed By: #### L 503.7505, L501.2300, L500.4100, L500.4050 ####[facility] [address] [place], [address] Glucose [Mass/Vol] 163 mg/dL High 70-99 [facility] Comment on above: Performed By: #### L 503.7505, L501.2300, L500.4100, L500.4050 ####[facility] [address] [place], [address] Potassium [Moles/Vol] 4.6 mmol/L Normal 3.3-5.1 [facility] Comment on above: Performed By: #### L 503.7505, L501.2300, L500.4100, L500.4050 ####[facility] [address] [place], [address] Sodium [Moles/Vol] 139 mmol/L Normal 133-145 [facility] Comment on above: Performed By: #### L 503.7505, L501.2300, L500.4100, L500.4050 ####[facility] [address] [place], [address] T PROT 6.8 g/dL Normal 5.9-8.4 [facility] Comment on above: Performed By: #### L 503.7505, L501.2300, L500.4100, L500.4050 ####[facility] [address] [place], [address] Urea nitrogen [Mass/Vol] 15 mg/dL Normal 4-19 [facility] Comment on above: Performed By: #### L 503.7505, L501.2300, L500.4100, L500.4050 ####[facility] [address] [place], [address] Echocardiogram study reportO rdered By: Chandni Courtney on 03-20-2025 Study report [facility] [address] [place] [address] Echo Complete W/ Contrast 03/20/25913 MR#: [id number] Acct: [id number] Name: PIPER CLARK Rep #:[id number] 1 : 1955 69 From: Chandni Courtney MD Attending Dr: Dr. Chai Rider, Status: ADM IN Ordering Dr: Orlando Bolden DO Date: 03/19/25 Location: [facility] Sex: F C Admitted: 03/19/25 Reason For [...] ~ Date Dictated: 03/20/25913 Date Transcribed: 03/20/251054 [employer]: Signed [facility] Work Phone: Folates,Serum (Folic Acid)on 03-20-2025 FOLATES,SERUM 8.88 ng/mL Normal 4.60-34.80 [facility] Comment on above: Result Comment: Hemo lysis, Results will be affected, Requires Recollection. Performed By: #### L 501.5200, L506.0200, L501.9520, L503.0106 ####[facility] [address] [place], [address] Hemoglobin A1con 03-20-2025 HbA1c (Bld) [Mass fraction] 5.5 % Normal <=5.6 [facility] Comment on above: Result Comment: Norm al < 5.7 % Prediabetic 5.7 - 6.4 % Diabetic >or= 6.5 % Please note range changes. Performed By: #### L 501.9985 ####[facility] [address] [place], [address] L499.0043on 03-20-2025 Trop T High Sen Normal <=14 [facility] Comment on above: Result Comment: NURS E ALEX SAID TO CANCEL Performed By: #### L 499.0043 ####[facility] [address] [place], [address] L503.7505on 03-20-2025 Natriuretic peptide B (Bld) [Mass/Vol] 1547 pg/mL High <=900 [facility] Comment on above: Result Comment: Hear t Failure Unlikely: < 300 pg/mLHeart Failure Likely< 50 Years: > 450 pg/mL50-75 Years: > 900 pg/mL>75 Years: > 1800 pg/mL Performed By: #### L 503.7505, L501.2300, L500.4100, L500.4050 ####[facility] [address] [place], [address] LDL calc ser/plasOrdered By: Orlando Maldonado on 03-20-2025 Cholesterol in LDL [Mass/Vol] 82 mg/dL [facility] Comment on above: Tmvkhezoei=922-958 m g/dL & Higher Zawk=978 mg/dL or greater LDL Cholesterol, Calculated 82 mg/dL [facility] Comment on above: Kdgthxagvo=542-021 m g/dL & Higher Qkkb=471 mg/dL or greater Laboratory - Chemistry and C hemistry - challengeOrdered By: Orlando Maldonado on 03-20-2025 AST [Catalytic activity/Vol] 13 U/L <32 [facility] Lipid Profileon 03-20-2025 CHOL:HDL 2.58 Normal [facility] Comment on above: Performed By: #### L 503.7505, L501.2300, L500.4100, L500.4050 ####[facility] [address] [place], [address] Cholesterol [Mass/Vol] 150 mg/dL Normal <=200 [facility] Comment on above: Result Comment: Chol esterol level, Desirable <200 mg/dLBorderline high cholesterol 200-239 mg/dLHigh cholesterol >=240 mg/dLRecommendations of the NCEP Adult Treatment Panel for thefollowing risk-cutoff thresholds for the [place]. Performed By: #### L 503.7505, L501.2300, L500.4100, L500.4050 ####[facility] [address] [place], [address] Cholesterol in HDL [Mass/Vol] 58 mg/dL Normal [facility] Comment on above: Result Comment: Leslie onal Cholesterol Education Program (NCEP) guidelines:<40 mg/dL: Low HDL-cholesterol (major risk factor for CHD)>= 60 mg/dL: High HDL-cholesterol (negative risk factor forCHD)HDL-cholesterol is affected by a number of factors, e.g.smoking, exercise, hormones, sex and age. Performed By: #### L 503.7505, L501.2300, L500.4100, L500.4050 ####[facility] [address] [place], [address] Cholesterol in LDL [Mass/Vol] 82 mg/dL Normal [facility] Comment on above: Result Comment: Bord hmwyki=596-069 mg/dL Higher Jlhj=941 mg/dL or greater Performed By: #### L 503.7505, L501.2300, L500.4100, L500.4050 ####[facility] [address] [place], [address] Cholesterol in VLDL [Mass/Vol] 10 mg/dL Normal 5-40 [facility] Comment on above: Performed By: #### L 503.7505, L501.2300, L500.4100, L500.4050 ####[facility] [address] [place], [address] Triglyceride [Mass/Vol] 51 mg/dL Normal [facility] Comment on above: Result Comment: The drugs N-Acetylcysteine and Metamizole may falselydepress this assay.Normal range: <150 mg/dLBorderline High: 150-199 mg/dLHigh: 200-499 mg/dLVery High: >500 mg/dL Performed By: #### L 503.7505, L501.2300, L500.4100, L500.4050 ####[facility] [address] [place], [address] Magnesiumon 03-20-2025 Magnesium [Mass/Vol] 1.7 mg/dL Normal 1.5-2.2 [facility] Comment on above: Performed By: #### L 501.5200, L506.0200, L501.9520, L503.0106 ####[facility] [address] [place], [address] Natriuretic peptide.B prohor inessa N-Terminal [Mass/Vol]Ordered By: Orlando Maldonado on 03-20-2025 Natriuretic peptide B (Bld) [Mass/Vol] 1547 pg/mL High <900 [facility] Comment on above: Heart Failure Unlike ly: < 300 pg/mLHeart Failure Likely< 50 Years: > 450 pg/mL50-75 Years: > 900 pg/mL>75 Years: > 1800 pg/mL Natriuretic peptide.B prohor inessa N-Terminal [Mass/volume] in Serum or PlasmaOrdered By: Orlando Maldonado on 03-20-2025 Natriuretic peptide.B prohormone N-Terminal [Mass/Vol] 1547 pg/mL High <900 [facility] Comment on above: Heart Failure Unlike ly: < 300 pg/mLHeart Failure Likely< 50 Years: > 450 pg/mL50-75 Years: > 900 pg/mL>75 Years: > 1800 pg/mL No Panel InformationOrdered By: Orlando Maldonado on 03-20-2025 13 U/L <32 [facility] Phosphoruson 03-20-2025 Phosphate [Mass/Vol] 2.9 mg/dL Normal 2.7-4.5 [facility] Comment on above: Performed By: #### L 503.7505, L501.2300, L500.4100, L500.4050 ####[facility] [address] [place], [place], [address] Screening total cholesterol/ high density lipoprotein (HDL) cholesterol ratioOrdered By: Orlando Maldonado on 03-20-2025 Cholesterol.total/Choles terol in HDL [Mass ratio] 2.58 {ratio} [facility] Serum globulin measurementOr dered By: Orlando Maldonado on 03-20-2025 Globulin (S) [Mass/Vol] 3.3 g/dL 2.2-4.2 [facility] Serum or plasma alanine garza otransferase (ALT) measurementOrdered By: Orlando Maldonado on 03-20-2025 ALT [Catalytic activity/Vol] 12 U/L <35 [facility] Serum or plasma albumin diallo urement (mass/volume)Ordered By: Orlando Maldonado on 03-20-2025 Albumin [Mass/Vol] 3.5 g/dL 3.4-4.8 [facility] Serum or plasma albumin/glob ulin mass ratioOrdered By: Orlando Maldonado on 03-20-2025 Albumin/Globulin [Mass ratio] 1.0 {ratio} 0.9-2.4 [facility] Serum or plasma alkaline pati sphatase measurementOrdered By: Orlando Maldonado on 03-20-2025 ALP [Catalytic activity/Vol] 65 U/L 35-104 [facility] Serum or plasma cholesterol in HDL measurement (mass/volume)Ordered By: Orlando Maldonado on 03-20-2025 Cholesterol in HDL [Mass/Vol] 58 mg/dL >40 [facility] Comment on above: National Cholesterol Education Program (NCEP) guidelines:<40 mg/dL: Low HDL-cholesterol (major risk factor for CHD)>= 60 mg/dL: High HDL-cholesterol (negative risk factor for CHD)HDL-cholesterol is affected by a number of factors, e.g. smoking, exercise, hormones, sex and age. Serum or plasma cholesterol measurement (mass/volume)Ordered By: Orlando Maldonado on 03-20-2025 Cholesterol [Mass/Vol] 150 mg/dL <201 [facility] Comment on above: Cholesterol level, D esirable <200 mg/dLBorderline high cholesterol 200-239 mg/dLHigh cholesterol >=240 mg/dLRecommendations of the NCEP Adult Treatment Panel for the following risk-cutoff thresholds for the [place] population. Thyroid Stim Hormone (TSH)on 03-20-2025 TSH 0.905 uIU/mL Normal 0.300-4.200 [facility] Comment on above: Performed By: #### L 501.5200, L506.0200, L501.9520, L503.0106 ####[facility] [address] [place], [address] Total proteinOrdered By: Severo Maldonado on 03-20-2025 Protein [Mass/Vol] 6.8 g/dL 5.9-8.4 [facility] Triglycerides measurementOrd ered By: Orlando Maldonado on 03-20-2025 Triglyceride [Mass/Vol] 51 mg/dL <199 [facility] Comment on above: The drugs N-Acetylcy steine and Metamizole may falsely depress this assay. Normal range: <150 mg/dLBorderline High: 150-199 mg/dLHigh: 200-499 mg/dLVery High: >500 mg/dL Vitamin B12on 03-20-2025 Cobalamin (Vitamin B12) [Mass/Vol] 473 pg/mL Normal 180-914 [facility] Comment on above: Performed By: #### L 501.5200, L506.0200, L501.9520, L503.0106 ####[facility] [address] [place], [address] Basic Metabolic Profile (BMP )on 03-19-2025 BUN/CRE 16.7 RATIO Normal 10-20 [facility] Comment on above: Performed By: #### L 100.0100, L503.7505, L501.4021, L500.2500 ####[facility] [address] [place], [address] Calcium [Mass/Vol] 9.2 mg/dL Normal 7.6-11.0 [facility] Comment on above: Performed By: #### L 100.0100, L503.7505, L501.4021, L500.2500 ####[facility] [address] [place], [address] Chloride [Moles/Vol] 86 mmol/L Low 98-108 [facility] Comment on above: Performed By: #### L 100.0100, L503.7505, L501.4021, L500.2500 ####[facility] [address] [place], [address] CO2 [Moles/Vol] 38.3 mmol/L High 21.0-32.0 [facility] Comment on above: Performed By: #### L 100.0100, L503.7505, L501.4021, L500.2500 ####[facility] [address] [place], [address] Creatinine [Mass/Vol] 0.80 mg/dL Normal 0.70-1.20 [facility] Comment on above: Performed By: #### L 100.0100, L503.7505, L501.4021, L500.2500 ####[facility] [address] [place], [address] ECRCL 77.85 ml/min Normal 50-250 [facility] Comment on above: Performed By: #### L 100.0100, L503.7505, L501.4021, L500.2500 ####[facility] [address] [place], [address] GAP 9 Normal 5-15 [facility] Comment on above: Performed By: #### L 100.0100, L503.7505, L501.4021, L500.2500 ####[facility] [address] [place], [address] GFR/1.73 sq M.predicted among non-blacks MDRD (S/P/Bld) [Vol rate/Area] 79 mL/min/{1.73_m2} Normal >60 [facility] Comment on above: Result Comment: mL/m in/1.73m2 CKD-EPI Creatinine Equation (2020) Performed By: #### L 100.0100, L503.7505, L501.4021, L500.2500 ####[facility] [address] [place], [address] Glucose [Mass/Vol] 232 mg/dL High 70-99 [facility] Comment on above: Performed By: #### L 100.0100, L503.7505, L501.4021, L500.2500 ####[facility] [address] [place], [address] Potassium [Moles/Vol] 4.3 mmol/L Normal 3.3-5.1 [facility] Comment on above: Performed By: #### L 100.0100, L503.7505, L501.4021, L500.2500 ####[facility] [address] [place], [address] Sodium [Moles/Vol] 133 mmol/L Normal 133-145 [facility] Comment on above: Performed By: #### L 100.0100, L503.7505, L501.4021, L500.2500 ####[facility] [address] [place], [address] Urea nitrogen [Mass/Vol] 13 mg/dL Normal 4-19 [facility] Comment on above: Performed By: #### L 100.0100, L503.7505, L501.4021, L500.2500 ####[facility] [address] [place], [address] CBC W/Diff, Automatedon -12 30-2024 Absolute Lymph 1.91 X10 3/uL Normal 0.83-4.51 [facility] Comment on above: Performed By: #### L 100.0100, L503.7505, L501.4021, L500.2500 ####[facility] [address] [place], [address] Absolute Neut 10.2 X10 3/uL High 2.0-7.7 [facility] Comment on above: Performed By: #### L 100.0100, L503.7505, L501.4021, L500.2500 ####[facility] [address] [place], [address] Basophils/100 WBC (Bld) 0.4 % Normal 0-1 [facility] Comment on above: Performed By: #### L 100.0100, L503.7505, L501.4021, L500.2500 ####[facility] [address] [place], [address] Eosinophils/100 WBC (Bld) 2.2 % Normal 0-5 [facility] Comment on above: Performed By: #### L 100.0100, L503.7505, L501.4021, L500.2500 ####[facility] [address] [place], [address] Erythrocyte distribution width (RBC) [Ratio] 13.5 % Normal 11.6-14.6 [facility] Comment on above: Performed By: #### L 100.0100, L503.7505, L501.4021, L500.2500 ####[facility] [address] [place], [address] Hematocrit (Bld) [Volume fraction] 39.1 % Normal 37-47 [facility] Comment on above: Performed By: #### L 100.0100, L503.7505, L501.4021, L500.2500 ####[facility] [address] [place], [place], [address] Hemoglobin (Bld) [Mass/Vol] 11.7 g/dL Low 12.0-15.0 [facility] Comment on above: Performed By: #### L 100.0100, L503.7505, L501.4021, L500.2500 ####[facility] [address] [place], [address] IG% 0.400 Normal 0.0-0.9 [facility] Comment on above: Result Comment: IG% - Immature Granulocytes (promyelocytes, myelocytes andmetamyelocytes) > 1% indicates that a LEFT SHIFT is Present. Performed By: #### L 100.0100, L503.7505, L501.4021, L500.2500 ####[facility] [address] [place], [address] Lymphocytes/100 WBC (Bld) 13.9 % Low 19-41 [facility] Comment on above: Performed By: #### L 100.0100, L503.7505, L501.4021, L500.2500 ####[facility] [address] [place], [address] MCH (RBC) [Entitic mass] 28.6 pg Normal 27.0-32.0 [facility] Comment on above: Performed By: #### L 100.0100, L503.7505, L501.4021, L500.2500 ####[facility] [address] [place], [address] MCHC (RBC) [Mass/Vol] 29.9 g/dL Low 32-36 [facility] Comment on above: Performed By: #### L 100.0100, L503.7505, L501.4021, L500.2500 ####[facility] [address] [place], [address] MCV (RBC) [Entitic vol] 95.6 fL Normal 81-99 [facility] Comment on above: Performed By: #### L 100.0100, L503.7505, L501.4021, L500.2500 ####[facility] [address] [place], [address] Monocytes/100 WBC (Bld) 9.2 % Normal 0-10 [facility] Comment on above: Performed By: #### L 100.0100, L503.7505, L501.4021, L500.2500 ####[facility] [address] [place], [address] Neutrophils/100 WBC (Bld) 73.9 % High 47-70 [facility] Comment on above: Performed By: #### L 100.0100, L503.7505, L501.4021, L500.2500 ####[facility] [address] [place], [address] Nucleated RBC (Bld) [#/Vol] 0 10*3/uL Normal 0-5 [facility] Comment on above: Performed By: #### L 100.0100, L503.7505, L501.4021, L500.2500 ####[facility] [address] [place], [address] Platelet mean volume (Bld) [Entitic vol] 10.0 fL Normal 6.2-12.0 [facility] Comment on above: Performed By: #### L 100.0100, L503.7505, L501.4021, L500.2500 ####[facility] [address] [place], [address] Platelets (Bld) [#/Vol] 373 10*3/uL Normal 150-450 [facility] Comment on above: Performed By: #### L 100.0100, L503.7505, L501.4021, L500.2500 ####[facility] [address] [place], [address] RBC (Bld) [#/Vol] 4.09 10*6/uL Low 4.2-5.4 [facility] Comment on above: Performed By: #### L 100.0100, L503.7505, L501.4021, L500.2500 ####[facility] [address] [place], [address] RDW SD 47.8 fl High 35.1-43.9 [facility] Comment on above: Performed By: #### L 100.0100, L503.7505, L501.4021, L500.2500 ####[facility] [address] [place], [address] WBC (Bld) [#/Vol] 13.7 10*3/uL High 4.4-11.0 [facility] Comment on above: Performed By: #### L 100.0100, L503.7505, L501.4021, L500.2500 ####[facility] [address] [place], [address] Chest 1 View (Portable)on Chest 1 View (Portable) Normal [facility] Echo Complete W/ Contraston 03-19-2025 Echo Complete W/ Contrast Normal [facility] Emergency Department Summary on 03-19-2025 Emergency Department Summary Normal [facility] Folate [Moles/Vol]Ordered By : Orlando Maldonado on 03-19-2025 Serum Folate 8.88 ng/mL 4.60-34.80 [facility] Comment on above: Hemolysis, Results w ill be affected, Requires Recollection. Folate [Moles/volume] in Ser um or PlasmaOrdered By: Orlando Maldonado on 03-19-2025 Folate [Moles/Vol] 8.88 ng/mL 4.60-34.80 [facility] Comment on above: Hemolysis, Results w ill be affected, Requires Recollection. H AND P Exam - Hospital[place] 03-19-2025 H&P Exam - Hospitalist Normal [facility] Hemoglobin A1c percentageOrd ered By: Orlando Maldonado on 03-19-2025 HbA1c (Bld) [Mass fraction] 5.5 % <5.7 [facility] Comment on above: Normal < 5.7 % Predi abetic 5.7 - 6.4 % Diabetic >or= 6.5 % Please note range changes. L499.0042on 03-19-2025 Trop T High Sen 10 ng/L Normal <=14 [facility] Comment on above: Order Comment: ER DI D NOT GET SECOND TROP BEFORE LEAVING TO FLOOR. Performed By: #### L 499.0042 ####[facility] [address] [facility] [place], [address] L501.4021on 03-19-2025 Trop T High Sen 19 ng/L High <=14 [facility] Comment on above: Performed By: #### L 100.0100, L503.7505, L501.4021, L500.2500 ####[facility] [address] [facility] [place], [address] L503.7505on 03-19-2025 Natriuretic peptide B (Bld) [Mass/Vol] 1003 pg/mL High <=900 [facility] Comment on above: Result Comment: Hear t Failure Unlikely: < 300 pg/mLHeart Failure Likely< 50 Years: > 450 pg/mL50-75 Years: > 900 pg/mL>75 Years: > 1800 pg/mL Performed By: #### L 100.0100, L503.7505, L501.4021, L500.2500 ####[facility] [address] [place], [address] Magnesium (Unsp spec) [Mass/ Vol]Ordered By: Orlando Maldonado on 03-19-2025 Magnesium [Mass/Vol] 1.7 mg/dL 1.5-2.2 [facility] Magnesium measurement (mass/ volume)Ordered By: Orlando Maldonado on 03-19-2025 Magnesium (Unsp spec) [Mass/Vol] 1.7 mg/dL 1.5-2.2 [facility] TSH DL <= 0.005 mIU/L QnOrde red By: Orlando Maldonado on 03-19-2025 Thyroid Stimulating Hormone (TSH) 0.905 uIU/mL 0.300-4.200 [facility] TSH Qn 0.905 uIU/mL 0.300-4.200 [facility] Troponin T.cardiac High sens itivity method [Mass/Vol]Ordered By: Juan F Curran on 03-19-2025 Troponin T High Sensitivity 2 Hour 10 ng/L <14 [facility] Troponin T High Sensitivity 19 ng/L High <14 [facility] Troponin T.cardiac [Mass/vol ume] in Serum or Plasma by High sensitivity methodOrdered By: Juan F Curran on 03-19-2025 Troponin T.cardiac High sensitivity method [Mass/Vol] 10 ng/L <14 [facility] Troponin T.cardiac High sensitivity method [Mass/Vol] 19 ng/L High <14 [facility] Vitamin B12 ser/plasOrdered By: Orlando Maldonado on 03-19-2025 Cobalamin (Vitamin B12) [Mass/Vol] 473 pg/mL 180-914 [facility] Anion gap in Serum or Plasma Ordered By: Becca Dillard on 03-18-2025 Anion gap [Moles/Vol] 8 mmol/L - [facility] BUN/creatinine ratioOrdered By: Becca Dillard on 03-18-2025 Urea nitrogen/Creatinine [Mass ratio] 16.6 mg/mg 10- [facility] Basic Metabolic Profile (BMP )on 03-18-2025 BUN/CRE 16.6 RATIO Normal - [facility] Comment on above: Performed By: #### L 503.7505, L500.4100, L500.3400, L500.2500 ####[facility] [address] [place], [address] Calcium [Mass/Vol] 9.4 mg/dL Normal 7.6-11.0 [facility] Comment on above: Performed By: #### L 503.7505, L500.4100, L500.3400, L500.2500 ####[facility] [address] [place], [address] Chloride [Moles/Vol] 91 mmol/L Low 98-108 [facility] Comment on above: Performed By: #### L 503.7505, L500.4100, L500.3400, L500.2500 ####[facility] [address] [place], [address] CO2 [Moles/Vol] 37.8 mmol/L High 21.0-32.0 [facility] Comment on above: Performed By: #### L 503.7505, L500.4100, L500.3400, L500.2500 ####[facility] [address] [place], [address] Creatinine [Mass/Vol] 0.68 mg/dL Low 0.70-1.20 [facility] Comment on above: Performed By: #### L 503.7505, L500.4100, L500.3400, L500.2500 ####[facility] [address] [place], [address] GAP 8 Normal 5-15 [facility] Comment on above: Performed By: #### L 503.7505, L500.4100, L500.3400, L500.2500 ####[facility] [address] [place], [address] GFR/1.73 sq M.predicted among non-blacks MDRD (S/P/Bld) [Vol rate/Area] 93 mL/min/{1.73_m2} Normal >60 [facility] Comment on above: Result Comment: mL/m in/1.73m2 CKD-EPI Creatinine Equation (2020) Performed By: #### L 503.7505, L500.4100, L500.3400, L500.2500 ####[facility] [address] [place], [address] Glucose [Mass/Vol] 147 mg/dL High 70-99 [facility] Comment on above: Performed By: #### L 503.7505, L500.4100, L500.3400, L500.2500 ####[facility] [address] [place], [address] Potassium [Moles/Vol] 5.1 mmol/L Normal 3.3-5.1 [facility] Comment on above: Performed By: #### L 503.7505, L500.4100, L500.3400, L500.2500 ####[facility] [address] [place], [address] Sodium [Moles/Vol] 137 mmol/L Normal 133-145 [facility] Comment on above: Performed By: #### L 503.7505, L500.4100, L500.3400, L500.2500 ####[facility] [address] [place], [address] Urea nitrogen [Mass/Vol] 11 mg/dL Normal 4-19 [facility] Comment on above: Performed By: #### L 503.7505, L500.4100, L500.3400, L500.2500 ####[facility] [address] [place], [address] Bilirubin directOrdered By: Becca Dillard on 03-18-2025 Bilirubin.direct [Mass/Vol] 0.17 mg/dL 0.00-0.30 [facility] Bilirubin, totalOrdered By: Becca Dillard on 03-18-2025 Bilirubin [Mass/Vol] 0.33 mg/dL 0.00-1.30 [facility] Calculated very low density lipoprotein (VLDL) cholesterol measurementOrdered By: Becca Dillard on 03-18-2025 Calculated very low density lipoprotein (VLDL) cholesterol measurement 13 mg/dL 5-40 [facility] VLDL Cholesterol 13 mg/dL 5-40 [facility] Carbon dioxide, total [Moles /volume] in Central venous bloodOrdered By: Becca Dillard on 03-18-2025 CO2 [Moles/Vol] 37.8 mmol/L High 21.0-32.0 [facility] Chloride assayOrdered By: Sergio Dillard on 03-18-2025 Chloride [Moles/Vol] 91 mmol/L Low 98-108 [facility] GFR/1.73 sq M.predicted lisa g non-blacks MDRD (S/P/Bld) [Vol rate/Area]Ordered By: Becca Dillard on 03-18-2025 Estimated GFR (MDRD) Non-Af Amer 93 >60 [facility] Comment on above: mL/min/1.73m2 CKD-EP I Creatinine Equation (2020) Glomerular filtration rate ( GFR) estimation/1.73 sq m using serum, plasma, or whole bOrdered By: Becca Dillard on 03-18-2025 GFR/1.73 sq M.predicted among non-blacks MDRD (S/P/Bld) [Vol rate/Area] 93 mL/min/{1.73_m2} >60 [facility] Comment on above: mL/min/1.73m2 CKD-EP I Creatinine Equation (2020) L503.7505on 03-18-2025 Natriuretic peptide B (Bld) [Mass/Vol] 1006 pg/mL High <=900 [facility] Comment on above: Result Comment: Hear t Failure Unlikely: < 300 pg/mLHeart Failure Likely< 50 Years: > 450 pg/mL50-75 Years: > 900 pg/mL>75 Years: > 1800 pg/mL Performed By: #### L 503.6815, L500.4100, L500.3400, L500.2500 ####[facility] [address] [place], [place], [id number] LDL calc ser/plasOrdered By: Becca Dillard on 03-18-2025 Cholesterol in LDL [Mass/Vol] 89 mg/dL [facility] Comment on above: Owzqhegwez=972-301 m g/dL & Higher Qmvp=375 mg/dL or greater LDL Cholesterol, Calculated 89 mg/dL [facility] Comment on above: Koseundqbv=637-661 m g/dL & Higher Rqbl=759 mg/dL or greater Laboratory - Chemistry and C hemistry - challengeOrdered By: Becca Dillard on 03-18-2025 AST [Catalytic activity/Vol] 15 U/L <32 [facility] Lipid Profileon 03-18-2025 CHOL:HDL 2.59 Normal [facility] Comment on above: Performed By: #### L 503.7505, L500.4100, L500.3400, L500.2500 ####[facility] [address] [place], [place], [address] Cholesterol [Mass/Vol] 167 mg/dL Normal <=200 [facility] Comment on above: Result Comment: Chol esterol level, Desirable <200 mg/dLBorderline high cholesterol 200-239 mg/dLHigh cholesterol >=240 mg/dLRecommendations of the NCEP Adult Treatment Panel for thefollowing risk-cutoff thresholds for the [place] Americanpulation. Performed By: #### L 503.7505, L500.4100, L500.3400, L500.2500 ####[facility] [address] [place], [address] Cholesterol in HDL [Mass/Vol] 65 mg/dL Normal [facility] Comment on above: Result Comment: Leslie onal Cholesterol Education Program (NCEP) guidelines:<40 mg/dL: Low HDL-cholesterol (major risk factor for CHD)>= 60 mg/dL: High HDL-cholesterol (negative risk factor forCHD)HDL-cholesterol is affected by a number of factors, e.g.smoking, exercise, hormones, sex and age. Performed By: #### L 503.7505, L500.4100, L500.3400, L500.2500 ####[facility] [address] [place], [address] Cholesterol in LDL [Mass/Vol] 89 mg/dL Normal [facility] Comment on above: Result Comment: Bord pvfobn=023-514 mg/dL Higher Cjnu=618 mg/dL or greater Performed By: #### L 503.7505, L500.4100, L500.3400, L500.2500 ####[facility] [address] [place], [address] Cholesterol in VLDL [Mass/Vol] 13 mg/dL Normal 5-40 [facility] Comment on above: Performed By: #### L 503.7505, L500.4100, L500.3400, L500.2500 ####[facility] [address] [place], [address] Triglyceride [Mass/Vol] 66 mg/dL Normal [facility] Comment on above: Result Comment: The drugs N-Acetylcysteine and Metamizole may falselydepress this assay.Normal range: <150 mg/dLBorderline High: 150-199 mg/dLHigh: 200-499 mg/dLVery High: >500 mg/dL Performed By: #### L 503.7505, L500.4100, L500.3400, L500.2500 ####[facility] [address] [place], [address] Liver Profileon 03-18-2025 Albumin [Mass/Vol] 3.7 g/dL Normal 3.4-4.8 [facility] Comment on above: Performed By: #### L 503.7505, L500.4100, L500.3400, L500.2500 ####[facility] [address] [place], [address] ALK PHOS 72 U/L Normal 35-104 [facility] Comment on above: Performed By: #### L 503.7505, L500.4100, L500.3400, L500.2500 ####[facility] [address] [place], [address] ALT [Catalytic activity/Vol] 8 U/L Normal <=34 [facility] Comment on above: Performed By: #### L 503.7505, L500.4100, L500.3400, L500.2500 ####[facility] [address] [place], [address] AST [Catalytic activity/Vol] 15 U/L Normal <=31 [facility] Comment on above: Performed By: #### L 503.7505, L500.4100, L500.3400, L500.2500 ####[facility] [address] [place], [address] Bilirubin [Mass/Vol] 0.33 mg/dL Normal 0.00-1.30 [facility] Comment on above: Performed By: #### L 503.7505, L500.4100, L500.3400, L500.2500 ####[facility] [address] [place], [address] Bilirubin.direct [Mass/Vol] 0.17 mg/dL Normal 0.00-0.30 [facility] Comment on above: Performed By: #### L 503.7505, L500.4100, L500.3400, L500.2500 ####[facility] [address] [place], [address] Globulin (S) [Mass/Vol] 3.4 g/dL Normal 2.2-4.2 [facility] Comment on above: Performed By: #### L 503.7505, L500.4100, L500.3400, L500.2500 ####[facility] [address] [place], [address] T PROT 7.1 g/dL Normal 5.9-8.4 [facility] Comment on above: Performed By: #### L 503.7505, L500.4100, L500.3400, L500.2500 ####[facility] [address] [place], [address] Natriuretic peptide.B prohor inessa N-Terminal [Mass/Vol]Ordered By: Becca Dillard on 03-18-2025 Natriuretic peptide B (Bld) [Mass/Vol] 1006 pg/mL High <900 [facility] Comment on above: Heart Failure Unlike ly: < 300 pg/mLHeart Failure Likely< 50 Years: > 450 pg/mL50-75 Years: > 900 pg/mL>75 Years: > 1800 pg/mL Natriuretic peptide.B prohor inessa N-Terminal [Mass/volume] in Serum or PlasmaOrdered By: Becca Dillard on 03-18-2025 Natriuretic peptide.B prohormone N-Terminal [Mass/Vol] 1006 pg/mL High <900 [facility] Comment on above: Heart Failure Unlike ly: < 300 pg/mLHeart Failure Likely< 50 Years: > 450 pg/mL50-75 Years: > 900 pg/mL>75 Years: > 1800 pg/mL No Panel InformationOrdered By: Becca Dillard on 03-18-2025 15 U/L <32 [facility] Potassium (Unsp spec) [Mass/ Vol]Ordered By: Becac Dillard on 03-18-2025 Potassium [Moles/Vol] 5.1 mmol/L 3.3-5.1 [facility] Potassium measurement (mass/ volume)Ordered By: Becca Dillard on 03-18-2025 Potassium (Unsp spec) [Mass/Vol] 5.1 mmol/L 3.3-5.1 [facility] Screening total cholesterol/ high density lipoprotein (HDL) cholesterol ratioOrdered By: Becca Dillard on 03-18-2025 Cholesterol.total/Choles terol in HDL [Mass ratio] 2.59 {ratio} [facility] Serum creatinine measurement (mass/volume)Ordered By: Becca Dillard on 03-18-2025 Creatinine [Mass/Vol] 0.68 mg/dL Low 0.70-1.20 [facility] Serum globulin measurementOr dered By: Becca Dillard on 03-18-2025 Globulin (S) [Mass/Vol] 3.4 g/dL 2.2-4.2 [facility] Serum glucose measurement (m ass/volume)Ordered By: Becca Dillard on 03-18-2025 Glucose [Mass/Vol] 147 mg/dL High 70-99 [facility] Serum or plasma alanine garza otransferase (ALT) measurementOrdered By: Becca Dillard on 03-18-2025 ALT [Catalytic activity/Vol] 8 U/L <35 [facility] Serum or plasma albumin diallo urement (mass/volume)Ordered By: Becca Dillard on 03-18-2025 Albumin [Mass/Vol] 3.7 g/dL 3.4-4.8 [facility] Serum or plasma alkaline pati sphatase measurementOrdered By: Becca Dillard on 03-18-2025 ALP [Catalytic activity/Vol] 72 U/L 35-104 [facility] Serum or plasma calcium diallo urement (mass/volume)Ordered By: Becca Dillard on 03-18-2025 Calcium [Mass/Vol] 9.4 mg/dL 7.6-11.0 [facility] Serum or plasma cholesterol in HDL measurement (mass/volume)Ordered By: Becca Dillard on 03-18-2025 Cholesterol in HDL [Mass/Vol] 65 mg/dL >40 [facility] Comment on above: National Cholesterol Education Program (NCEP) guidelines:<40 mg/dL: Low HDL-cholesterol (major risk factor for CHD)>= 60 mg/dL: High HDL-cholesterol (negative risk factor for CHD)HDL-cholesterol is affected by a number of factors, e.g. smoking, exercise, hormones, sex and age. Serum or plasma cholesterol measurement (mass/volume)Ordered By: Becca Dillard on 03-18-2025 Cholesterol [Mass/Vol] 167 mg/dL <201 [facility] Comment on above: Cholesterol level, D esirable <200 mg/dLBorderline high cholesterol 200-239 mg/dLHigh cholesterol >=240 mg/dLRecommendations of the NCEP Adult Treatment Panel for the following risk-cutoff thresholds for the [place] population. Serum or plasma urea nitroge n measurement (mass/volume)Ordered By: Becca Dillard on 03-18-2025 Urea nitrogen [Mass/Vol] 11 mg/dL 4-19 [facility] Sodium levelOrdered By: Faith Dillard on 03-18-2025 Sodium [Moles/Vol] 137 mmol/L 133-145 [facility] Total proteinOrdered By: Reynold Dillard on 03-18-2025 Protein [Mass/Vol] 7.1 g/dL 5.9-8.4 [facility] Triglycerides measurementOrd ered By: Becca Dillard on 03-18-2025 Triglyceride [Mass/Vol] 66 mg/dL <199 [facility] Comment on above: The drugs N-Acetylcy steine and Metamizole may falsely depress this assay. Normal range: <150 mg/dLBorderline High: 150-199 mg/dLHigh: 200-499 mg/dLVery High: >500 mg/dL Absolute lymphocyte countOrd ered By: Christy Perea on 02-05-2025 Lymphocytes Auto (Unsp spec) [#/Vol] 2.14 10*3/uL 0.83-4.51 [facility] Absolute neutrophil countOrd ered By: Christy Perea on 02-05-2025 Neutrophils (Bld) [#/Vol] 7.5 10*3/uL 2.0-7.7 [facility] Anion gap in Serum or Plasma Ordered By: Christy Perea on 02-05-2025 Anion gap [Moles/Vol] 8 mmol/L 5-15 [facility] Automated lymphocyte count a s percentage of total leukocytesOrdered By: Christy Perea on 02-05-2025 Lymphocytes/100 WBC Auto (Unsp spec) 19.2 % 19-41 [facility] BUN/creatinine ratioOrdered By: Christy Perea on 02-05-2025 Urea nitrogen/Creatinine [Mass ratio] 20.6 mg/mg High 10-20 [facility] Basophil percentageOrdered B y: Christy Perea on 02-05-2025 Basophils/100 WBC (Bld) 0.4 % 0-1 [facility] Bilirubin, totalOrdered By: Christy Perea on 02-05-2025 Bilirubin [Mass/Vol] 0.25 mg/dL 0.00-1.30 [facility] CBC W/Diff, Automatedon 01-24 Absolute Lymph 2.14 X10 3/uL Normal 0.83-4.51 [facility] Comment on above: Performed By: #### L 500.4050, L501.6710, L501.9520, L101.9900, L100.0100 ####[facility] [address] [place], [address] Absolute Neut 7.5 X10 3/uL Normal 2.0-7.7 [facility] Comment on above: Performed By: #### L 500.4050, L501.6710, L501.9520, L101.9900, L100.0100 ####[facility] [address] [place], [address] Basophils/100 WBC (Bld) 0.4 % Normal 0-1 [facility] Comment on above: Performed By: #### L 500.4050, L501.6710, L501.9520, L101.9900, L100.0100 ####[facility] [address] [place], [address] Eosinophils/100 WBC (Bld) 2.2 % Normal 0-5 [facility] Comment on above: Performed By: #### L 500.4050, L501.6710, L501.9520, L101.9900, L100.0100 ####[facility] [address] [place], [address] Erythrocyte distribution width (RBC) [Ratio] 14.6 % Normal 11.6-14.6 [facility] Comment on above: Performed By: #### L 500.4050, L501.6710, L501.9520, L101.9900, L100.0100 ####[facility] [address] [place], [address] Hematocrit (Bld) [Volume fraction] 40.0 % Normal 37-47 [facility] Comment on above: Performed By: #### L 500.4050, L501.6710, L501.9520, L101.9900, L100.0100 ####[facility] [address] [place], [address] Hemoglobin (Bld) [Mass/Vol] 12.1 g/dL Normal 12.0-15.0 [facility] Comment on above: Performed By: #### L 500.4050, L501.6710, L501.9520, L101.9900, L100.0100 ####[facility] [address] [place], [address] IG% 0.400 Normal 0.0-0.9 [facility] Comment on above: Result Comment: IG% - Immature Granulocytes (promyelocytes, myelocytes andmetamyelocytes) > 1% indicates that a LEFT SHIFT is Present. Performed By: #### L 500.4050, L501.6710, L501.9520, L101.9900, L100.0100 ####[facility] [address] [place], [address] Lymphocytes/100 WBC (Bld) 19.2 % Normal 19-41 [facility] Comment on above: Performed By: #### L 500.4050, L501.6710, L501.9520, L101.9900, L100.0100 ####[facility] [address] [place], [address] MCH (RBC) [Entitic mass] 28.2 pg Normal 27.0-32.0 [facility] Comment on above: Performed By: #### L 500.4050, L501.6710, L501.9520, L101.9900, L100.0100 ####[facility] [address] [place], [address] MCHC (RBC) [Mass/Vol] 30.3 g/dL Low 32-36 [facility] Comment on above: Performed By: #### L 500.4050, L501.6710, L501.9520, L101.9900, L100.0100 ####[facility] [address] [place], [address] MCV (RBC) [Entitic vol] 93.2 fL Normal 81-99 [facility] Comment on above: Performed By: #### L 500.4050, L501.6710, L501.9520, L101.9900, L100.0100 ####[facility] [address] [place], [address] Monocytes/100 WBC (Bld) 10.7 % High 0-10 [facility] Comment on above: Performed By: #### L 500.4050, L501.6710, L501.9520, L101.9900, L100.0100 ####[facility] [address] [place], [address] Neutrophils/100 WBC (Bld) 67.1 % Normal 47-70 [facility] Comment on above: Performed By: #### L 500.4050, L501.6710, L501.9520, L101.9900, L100.0100 ####[facility] [id number] [place], [address] Nucleated RBC (Bld) [#/Vol] 0 10*3/uL Normal 0-5 [facility] Comment on above: Performed By: #### L 500.4050, L501.6710, L501.9520, L101.9900, L100.0100 ####[facility] [id number] [place], [address] Platelet mean volume (Bld) [Entitic vol] 10.1 fL Normal 6.2-12.0 [facility] Comment on above: Performed By: #### L 500.4050, L501.6710, L501.9520, L101.9900, L100.0100 ####[facility] [address] [place], [address] Platelets (Bld) [#/Vol] 310 10*3/uL Normal 150-450 [facility] Comment on above: Performed By: #### L 500.4050, L501.6710, L501.9520, L101.9900, L100.0100 ####[facility] [address] [place], [address] RBC (Bld) [#/Vol] 4.29 10*6/uL Normal 4.2-5.4 [facility] Comment on above: Performed By: #### L 500.4050, L501.6710, L501.9520, L101.9900, L100.0100 ####[facility] [address] [place], [address] RDW SD 50.0 fl High 35.1-43.9 [facility] Comment on above: Performed By: #### L 500.4050, L501.6710, L501.9520, L101.9900, L100.0100 ####[facility] [address] [place], [address] WBC (Bld) [#/Vol] 11.2 10*3/uL High 4.4-11.0 [facility] Comment on above: Performed By: #### L 500.4050, L501.6710, L501.9520, L101.9900, L100.0100 ####[facility] [address] [place], [address] CRPon 02-05-2025 C-REACTIVE PROT 6.40 mg/L High 0.0-3.0 [facility] Comment on above: Performed By: #### L 500.4050, L501.6710, L501.9520, L101.9900, L100.0100 ####[facility] [address] [place], [address] CRP [Mass/Vol]Ordered By: Carol Perea on 02-05-2025 C-Reactive Protein Extended Range 6.40 mg/L High 0.0-3.0 [facility] Carbon dioxide, total [Moles /volume] in Central venous bloodOrdered By: Christy Perea on 02-05-2025 CO2 [Moles/Vol] 32.3 mmol/L High 21.0-32.0 [facility] Chloride assayOrdered By: Carol Perea on 02-05-2025 Chloride [Moles/Vol] 98 mmol/L 98-108 [facility] Comprehensive Metabolic Prof ilon 02-05-2025 Albumin [Mass/Vol] 4.0 g/dL Normal 3.4-4.8 [facility] Comment on above: Performed By: #### L 500.4050, L501.6710, L501.9520, L101.9900, L100.0100 ####[facility] [address] [place], [address] Albumin/Globulin [Mass ratio] 1.3 {ratio} Normal 0.9-2.4 [facility] Comment on above: Performed By: #### L 500.4050, L501.6710, L501.9520, L101.9900, L100.0100 ####[facility] [address] [place], [address] ALK PHOS 63 U/L Normal 35-104 [facility] Comment on above: Performed By: #### L 500.4050, L501.6710, L501.9520, L101.9900, L100.0100 ####[facility] [address] [place], [address] ALT [Catalytic activity/Vol] 12 U/L Normal <=34 [facility] Comment on above: Performed By: #### L 500.4050, L501.6710, L501.9520, L101.9900, L100.0100 ####[facility] [address] [place], [address] AST [Catalytic activity/Vol] 16 U/L Normal <=31 [facility] Comment on above: Performed By: #### L 500.4050, L501.6710, L501.9520, L101.9900, L100.0100 ####[facility] [address] [place], [address] Bilirubin [Mass/Vol] 0.25 mg/dL Normal 0.00-1.30 [facility] Comment on above: Performed By: #### L 500.4050, L501.6710, L501.9520, L101.9900, L100.0100 ####[facility] [address] [place], [address] BUN/CRE 20.6 RATIO High 10-20 [facility] Comment on above: Performed By: #### L 500.4050, L501.6710, L501.9520, L101.9900, L100.0100 ####[facility] [address] [place], [address] Calcium [Mass/Vol] 9.8 mg/dL Normal 7.6-11.0 [facility] Comment on above: Performed By: #### L 500.4050, L501.6710, L501.9520, L101.9900, L100.0100 ####[facility] [address] [place], [address] Chloride [Moles/Vol] 98 mmol/L Normal 98-108 [facility] Comment on above: Performed By: #### L 500.4050, L501.6710, L501.9520, L101.9900, L100.0100 ####[facility] [address] [place], [address] CO2 [Moles/Vol] 32.3 mmol/L High 21.0-32.0 [facility] Comment on above: Performed By: #### L 500.4050, L501.6710, L501.9520, L101.9900, L100.0100 ####[facility] [address] [place], [address] Creatinine [Mass/Vol] 0.69 mg/dL Low 0.70-1.20 [facility] Comment on above: Performed By: #### L 500.4050, L501.6710, L501.9520, L101.9900, L100.0100 ####[facility] [address] [place], [address] GAP 8 Normal 5-15 [facility] Comment on above: Performed By: #### L 500.4050, L501.6710, L501.9520, L101.9900, L100.0100 ####[facility] [address] [place], [address] GFR/1.73 sq M.predicted among non-blacks MDRD (S/P/Bld) [Vol rate/Area] 93 mL/min/{1.73_m2} Normal >60 [facility] Comment on above: Result Comment: mL/m in/1.73m2 CKD-EPI Creatinine Equation (2020) Performed By: #### L 500.4050, L501.6710, L501.9520, L101.9900, L100.0100 ####[facility] [address] [place], [address] Globulin (S) [Mass/Vol] 3.2 g/dL Normal 2.2-4.2 [facility] Comment on above: Performed By: #### L 500.4050, L501.6710, L501.9520, L101.9900, L100.0100 ####[facility] [address] [place], [address] Glucose [Mass/Vol] 98 mg/dL Normal 70-99 [facility] Comment on above: Performed By: #### L 500.4050, L501.6710, L501.9520, L101.9900, L100.0100 ####[facility] [address] [place], [address] Potassium [Moles/Vol] 4.4 mmol/L Normal 3.3-5.1 [facility] Comment on above: Performed By: #### L 500.4050, L501.6710, L501.9520, L101.9900, L100.0100 ####[facility] [address] [place], [address] Sodium [Moles/Vol] 139 mmol/L Normal 133-145 [facility] Comment on above: Performed By: #### L 500.4050, L501.6710, L501.9520, L101.9900, L100.0100 ####[facility] [address] [place], [address] T PROT 7.1 g/dL Normal 5.9-8.4 [facility] Comment on above: Performed By: #### L 500.4050, L501.6710, L501.9520, L101.9900, L100.0100 ####[facility] [address] [place], [address] Urea nitrogen [Mass/Vol] 14 mg/dL Normal 4-19 [facility] Comment on above: Performed By: #### L 500.4050, L501.6710, L501.9520, L101.9900, L100.0100 ####[facility] [address] [place], [address] Eosinophil percentageOrdered By: Christy Perea on 02-05-2025 Eosinophils/100 WBC (Bld) 2.2 % 0-5 [facility] Erythrocyte Sed Rateon 02-05 SED RATE 55 mm/hr High 0-30 [facility] Comment on above: Performed By: #### L 500.4050, L501.6710, L501.9527, L101.9900, L100.0100 ####[facility] [address] [place], [address] Erythrocyte distribution wid th ratioOrdered By: Christy Perea on 02-05-2025 Erythrocyte distribution width (RBC) [Ratio] 14.6 % 11.6-14.6 [facility] Erythrocyte distribution wid th standard deviationOrdered By: Christy Perea on 02-05-2025 Erythrocyte distribution width (RBC) [Entitic vol] 50.0 fL High 35.1-43.9 [facility] Erythrocyte distribution width (RBC) [Ratio] 50.0 fl High 35.1-43.9 [facility] Erythrocyte sedimentation ra teOrdered By: Christy Perea on 02-05-2025 ESR (Bld) [Velocity] 55 mm/h High 0-30 [facility] GFR/1.73 sq M.predicted lisa g non-blacks MDRD (S/P/Bld) [Vol rate/Area]Ordered By: Christy Perea on 02-05-2025 Estimated GFR (MDRD) Non-Af Amer 93 >60 [facility] Comment on above: mL/min/1.73m2 CKD-EP I Creatinine Equation (2020) Glomerular filtration rate ( GFR) estimation/1.73 sq m using serum, plasma, or whole bOrdered By: Christy Perea on 02-05-2025 GFR/1.73 sq M.predicted among non-blacks MDRD (S/P/Bld) [Vol rate/Area] 93 mL/min/{1.73_m2} >60 [facility] Comment on above: mL/min/1.73m2 CKD-EP I Creatinine Equation (2020) Hematocrit Auto (Bld) [Volum e fraction]Ordered By: Christy Perea on 02-05-2025 Hematocrit (Bld) [Volume fraction] 40.0 % 37-47 [facility] Hemoglobin measurementOrdere d By: Christy Perea on 02-05-2025 Hemoglobin (Bld) [Mass/Vol] 12.1 g/dL 12.0-15.0 [facility] Immature granulocytes/100 WB C Auto (Bld)Ordered By: Christy Perea on 02-05-2025 Immature granulocytes/100 WBC (Bld) 0.400 % 0.0-0.9 [facility] Comment on above: IG% - Immature Granu locytes (promyelocytes, myelocytes and metamyelocytes) > 1% indicates that a LEFT SHIFT is Present. Laboratory - Chemistry and C hemistry - challengeOrdered By: Christy Perea on 02-05-2025 AST [Catalytic activity/Vol] 16 U/L <32 [facility] Lymphocytes Auto (Unsp spec) [#/Vol]Ordered By: Christy Perea on 02-05-2025 Lymphocytes (Bld) [#/Vol] 2.14 10*3/uL 0.83-4.51 [facility] Lymphocytes/100 WBC Auto (Un sp spec)Ordered By: Christy Perea on 02-05-2025 Lymphocytes/100 WBC (Bld) 19.2 % 19-41 [facility] MCV (mean corpuscular volume ) determinationOrdered By: Christy Perea on 02-05-2025 MCV (RBC) [Entitic vol] 93.2 fL 81-99 [facility] Mean corpuscular hemoglobin (MCH) determinationOrdered By: Christy Perea on 02-05-2025 MCH (RBC) [Entitic mass] 28.2 pg 27.0-32.0 [facility] Mean corpuscular hemoglobin concentration (MCHC) determinationOrdered By: Christy Perea on 02-05-2025 MCHC (RBC) [Mass/Vol] 30.3 g/dL Low 32-36 [facility] Mean platelet volume determi nationOrdered By: Christy Perea on 02-05-2025 Platelet mean volume (Bld) [Entitic vol] 10.1 fL 6.2-12.0 [facility] Monocyte percentageOrdered B y: Christy Perea on 02-05-2025 Monocytes/100 WBC (Bld) 10.7 % High 0-10 [facility] Neutrophil percentageOrdered By: Christy Perea on 02-05-2025 Neutrophils/100 WBC (Bld) 67.1 % 47-70 [facility] No Panel InformationOrdered By: Christy Perea on 02-05-2025 16 U/L <32 [facility] Nucleated red blood cell per centageOrdered By: Christy Perea on 02-05-2025 Nucleated RBC/100 WBC (Bld) [Ratio] 0 % 0-5 [facility] Platelet countOrdered By: Carol Perea on 02-05-2025 Platelets (Bld) [#/Vol] 310 10*3/uL 150-450 [facility] Potassium (Unsp spec) [Mass/ Vol]Ordered By: Christy Perea on 02-05-2025 Potassium [Moles/Vol] 4.4 mmol/L 3.3-5.1 [facility] Potassium measurement (mass/ volume)Ordered By: Christy Perea on 02-05-2025 Potassium (Unsp spec) [Mass/Vol] 4.4 mmol/L 3.3-5.1 [facility] RBC Auto (Bld) [#/Vol]Ordere d By: Christy Perea on 02-05-2025 RBC (Bld) [#/Vol] 4.29 10*6/uL 4.2-5.4 [facility] Serum creatinine measurement (mass/volume)Ordered By: Christy Perea on 02-05-2025 Creatinine [Mass/Vol] 0.69 mg/dL Low 0.70-1.20 [facility] Serum globulin measurementOr dered By: Christy Perea on 02-05-2025 Globulin (S) [Mass/Vol] 3.2 g/dL 2.2-4.2 [facility] Serum glucose measurement (m ass/volume)Ordered By: Christy Perea on 02-05-2025 Glucose [Mass/Vol] 98 mg/dL 70-99 [facility] Serum or plasma C reactive p rotein measurement (mass/volume)Ordered By: Christy Perea on 02-05-2025 CRP [Mass/Vol] 6.40 mg/L High 0.0-3.0 [facility] Serum or plasma alanine garza otransferase (ALT) measurementOrdered By: Christy Perea on 02-05-2025 ALT [Catalytic activity/Vol] 12 U/L <35 [facility] Serum or plasma albumin diallo urement (mass/volume)Ordered By: Christy ePrea on 02-05-2025 Albumin [Mass/Vol] 4.0 g/dL 3.4-4.8 [facility] Serum or plasma albumin/glob ulin mass ratioOrdered By: Christy Perea on 02-05-2025 Albumin/Globulin [Mass ratio] 1.3 {ratio} 0.9-2.4 [facility] Serum or plasma alkaline pati sphatase measurementOrdered By: Christy Perea on 02-05-2025 ALP [Catalytic activity/Vol] 63 U/L 35-104 [facility] Serum or plasma calcium diallo urement (mass/volume)Ordered By: Christy Perea on 02-05-2025 Calcium [Mass/Vol] 9.8 mg/dL 7.6-11.0 [facility] Serum or plasma urea nitroge n measurement (mass/volume)Ordered By: Christy Perea on 02-05-2025 Urea nitrogen [Mass/Vol] 14 mg/dL 4-19 [facility] Sodium levelOrdered By: Christy Perea on 02-05-2025 Sodium [Moles/Vol] 139 mmol/L 133-145 [facility] TSH DL <= 0.005 mIU/L QnOrde red By: Christy Perea on 02-05-2025 Thyroid Stimulating Hormone (TSH) 2.170 uIU/mL 0.300-4.200 [facility] TSH Qn 2.170 uIU/mL 0.300-4.200 [facility] Thyroid Stim Hormone (TSH)on 02-05-2025 TSH 2.170 uIU/mL Normal 0.300-4.200 [facility] Comment on above: Performed By: #### L 500.4050, L501.6725, L501.9520, L101.9900, L100.0100 ####[facility] [address] [place], [address] Total proteinOrdered By: Christy Perea on 02-05-2025 Protein [Mass/Vol] 7.1 g/dL 5.9-8.4 [facility] White blood cell (WBC) count Ordered By: Christy Perea on 02-05-2025 WBC (Bld) [#/Vol] 11.2 10*3/uL High 4.4-11.0 [facility] Urine Cultureon 12-27-2024 [facility] Normal [facility] Comment on above: Performed By: #### M 100.2200 ####[facility] [address] [place], [place], [address] Urine cultureOrdered By: Chadwick Ashton on 12-25-2024 Bacteria identified Cx Nom (U) Klebsiella pneumoniae sp pneum Abnormal [facility] Orthopedic Visit Reporton Orthopedic Visit Report Normal [facility] Shoulder min 2 Viewson 12-04 Shoulder min 2 Views Normal [facility] Cardiology Visit Reporton Cardiology Visit Report Normal [facility] Re-Evaluation - PT (1)on Re-Evaluation - PT (1) Normal [facility] SCRN MAMM (CAD)W/TOM BILATo n 10-02-2024 SCRN MAMM (CAD)W/TOM BILAT Normal [facility] Cardiology Visit Reporton Cardiology Visit Report Normal [facility] Orthopedic Visit Reporton Orthopedic Visit Report Normal [facility] Shoulder min 2 Viewson 09-30 Shoulder min 2 Views Normal [facility] Inital Evaluation (1) - PTon 09-09-2024 Inital Evaluation (1) - PT Normal [facility] Low Dose CT Lung Screeningon 09-08-[address] Lung Screening Normal [facility] Orthopedic Visit Reporton Orthopedic Visit Report Normal [facility] Urine Cultureon 08-21-2024 URC Normal [facility] Comment on above: Performed By: #### M 100.2200 ####[facility] [address] [place], [address] Urine Cultureon 08-20-2024 [facility] UNABLE TO CHANGE SOURCE FROM INTERFACE Order Date: 08/19/24 Order Info: 630-4 - CUUR Bacteria Ur Cult Normal [facility] Comment on above: Performed By: #### M 100.2200, L400.0001 ####[facility] [address] [place], [address] Urinalysis, Completeon 08-19 BACTERIA 1+ /hpf Normal None Seen [facility] Comment on above: Order Comment: Order Date: 08/19/24Order Info: [id number] - UACCOLLECTOR TO SPECIFY Performed By: #### M 100.2200, L400.0001 ####[facility] [address] [place], [address] WBC 5-10 SEEN Normal 0-5 [facility] Comment on above: Order Comment: Order Date: 08/19/24Order Info: [id number] - UACCOLLECTOR TO SPECIFY Performed By: #### M 100.2200, L400.0001 ####[facility] [address] [place], [address] EPI,SQUAMOUS 0 SEEN Normal 5-10 [facility] Comment on above: Order Comment: Order Date: 08/19/24Order Info: [id number] - UACCOLLECTOR TO SPECIFY Performed By: #### M 100.2200, L400.0001 ####[facility] [address] [place], [address] Mucus Ql (Urine sed) 0 SEEN Normal [facility] Comment on above: Order Comment: Order Date: 08/19/24Order Info: [id number] - UACCOLLECTOR TO SPECIFY Performed By: #### M 100.2200, L400.0001 ####[facility] [address] [place], [address] RBC 0 SEEN Normal 0-5 [facility] Comment on above: Order Comment: Order Date: 08/19/24Order Info: [id number] - UACCOLLECTOR TO SPECIFY Performed By: #### M 100.2200, L400.0001 ####[facility] [address] [place], [address] CBC W/Diff, Automatedon - PATH REV Reviewed Normal [facility] Comment on above: Result Comment: Neut rophilic leukocytosis.Clinical correlation necessary.Mp Matos M.D. 08/18/24 AMENDED REPORT 08/18/24 1130 PATH REV previously reported as: March Performed By: #### L 100.0100, L500.4050, L501.5200 ####[facility] [address] [place], [address] Orthopedic Visit Reporton Orthopedic Visit Report Normal [facility] Comprehensive Metabolic Prof ilon 08-17-2024 Albumin [Mass/Vol] 3.3 g/dL Normal 3.2-5.0 [facility] Comment on above: Performed By: #### L 100.0100, L500.4050, L501.5200 ####[facility] [address] [place], [address] Albumin/Globulin [Mass ratio] 0.8 {ratio} Low 0.9-2.4 [facility] Comment on above: Performed By: #### L 100.0100, L500.4050, L501.5200 ####[facility] [address] [place], [address] ALK P 66 U/L Normal 45-117 [facility] Comment on above: Performed By: #### L 100.0100, L500.4050, L501.5200 ####[facility] [address] [place], [address] ALT [Catalytic activity/Vol] 23 U/L Normal 13-56 [facility] Comment on above: Performed By: #### L 100.0100, L500.4050, L501.5200 ####[facility] [address] [place], [address] AST [Catalytic activity/Vol] 17 U/L Normal 15-37 [facility] Comment on above: Performed By: #### L 100.0100, L500.4050, L501.5200 ####[facility] [address] [place], [address] Bilirubin [Mass/Vol] 0.30 mg/dL Normal 0.20-1.00 [facility] Comment on above: Result Comment: For patients on eltrombopag therapy, use of Dimension Malone TBIL is not recommended. Performed By: #### L 100.0100, L500.4050, L501.5200 ####[facility] [address] [place], [address] BUN/CRE 23.2 RATIO High 10-20 [facility] Comment on above: Performed By: #### L 100.0100, L500.4050, L501.5200 ####[facility] [address] [place], [address] CA,Total 9.4 mg/dL Normal 8.5-10.1 [facility] Comment on above: Performed By: #### L 100.0100, L500.4050, L501.5200 ####[facility] [address] [place], [address] Chloride [Moles/Vol] 101 mmol/L Normal 98-107 [facility] Comment on above: Performed By: #### L 100.0100, L500.4050, L501.5200 ####[facility] [address] [place], [address] CO2 [Moles/Vol] 36.0 mmol/L High 21.0-32.0 [facility] Comment on above: Performed By: #### L 100.0100, L500.4050, L501.5200 ####[facility] [address] [place], [address] Creatinine [Mass/Vol] 0.73 mg/dL Normal 0.55-1.02 [facility] Comment on above: Result Comment: The validity of the calculated GFR GFRAA in patients over70 years has not been determined. Clinical correlation isessential. Performed By: #### L 100.0100, L500.4050, L501.5200 ####[facility] [address] [place], [address] ECRCL 75.61 ml/min Normal [facility] Comment on above: Performed By: #### L 100.0100, L500.4050, L501.5200 ####[facility] [address] [place], [address] EST GFR - AA 100 mL/min Normal >60 [facility] Comment on above: Result Comment: Afri can [place] GFR Calc Performed By: #### L 100.0100, L500.4050, L501.5200 ####[facility] [address] [place], [address] GAP 2 Low 5-15 [facility] Comment on above: Performed By: #### L 100.0100, L500.4050, L501.5200 ####[facility] [address] [place], [address] GFR/1.73 sq M.predicted among non-blacks MDRD (S/P/Bld) [Vol rate/Area] 83 mL/min/{1.73_m2} Normal >60 [facility] Comment on above: Result Comment: Non- GFR Calc Performed By: #### L 100.0100, L500.4050, L501.5200 ####[facility] [address] [place], [address] Globulin (S) [Mass/Vol] 3.9 g/dL Normal 2.2-4.2 [facility] Comment on above: Performed By: #### L 100.0100, L500.4050, L501.5200 ####[facility] [address] [place], [address] Glucose [Mass/Vol] 110 mg/dL High 74-106 [facility] Comment on above: Result Comment: Fast ing Glucose result from 100 to 125 mg/dLsuggests IMPAIRED HOMEOSTASIS per A.D.A. criteria. Performed By: #### L 100.0100, L500.4050, L501.5200 ####[facility] [address] [place], [address] Potassium [Moles/Vol] 4.1 mmol/L Normal 3.5-5.1 [facility] Comment on above: Performed By: #### L 100.0100, L500.4050, L501.5200 ####[facility] [address] [place], [address] Sodium [Moles/Vol] 139 mmol/L Normal 136-145 [facility] Comment on above: Performed By: #### L 100.0100, L500.4050, L501.5200 ####[facility] [address] [place], [address] T PROT 7.2 g/dL Normal 6.4-8.2 [facility] Comment on above: Performed By: #### L 100.0100, L500.4050, L501.5200 ####[facility] [address] [place], [address] Urea nitrogen [Mass/Vol] 17 mg/dL Normal 7-18 [facility] Comment on above: Performed By: #### L 100.0100, L500.4050, L501.5200 ####[facility] [address] [place], [address] Emergency Department Summary on 08-17-2024 Emergency Department Summary Normal [facility] Humerus min 2 Viewson 2023 Humerus min 2 Views Normal [facility] Magnesiumon 08-17-2024 Magnesium [Mass/Vol] 1.8 mg/dL Normal 1.6-2.6 [facility] Comment on above: Performed By: #### L 100.0100, L500.4050, L501.5200 ####[facility] [address] [place], [address] Shoulder min 2 Viewson 08-17 Shoulder min 2 Views Normal [facility] Basic Metabolic Profile (BMP )on 05-16-2024 BUN/CRE 20.9 RATIO High 10-20 [facility] Comment on above: Performed By: #### L 500.2500, L500.4100 ####[facility] [address] [place], [address] CA,Total 9.1 mg/dL Normal 8.5-10.1 [facility] Comment on above: Performed By: #### L 500.2500, L500.4100 ####[facility] [address] [place], [address] Chloride [Moles/Vol] 99 mmol/L Normal 98-107 [facility] Comment on above: Performed By: #### L 500.2500, L500.4100 ####[facility] [address] [place], [address] CO2 [Moles/Vol] 36.0 mmol/L High 21.0-32.0 [facility] Comment on above: Performed By: #### L 500.2500, L500.4100 ####[facility] [address] [place], [address] Creatinine [Mass/Vol] 0.96 mg/dL Normal 0.55-1.02 [facility] Comment on above: Result Comment: The validity of the calculated GFR GFRAA in patients over70 years has not been determined. Clinical correlation isessential. Performed By: #### L 500.2500, L500.4100 ####[facility] [address] [place], [address] EST GFR - AA 74 mL/min Normal >60 [facility] Comment on above: Result Comment: Afri can [place] GFR Calc Performed By: #### L 500.2500, L500.4100 ####[facility] [address] [place], [address] GAP 3 Low 5-15 [facility] Comment on above: Performed By: #### L 500.2500, L500.4100 ####[facility] [address] [place], [address] GFR/1.73 sq M.predicted among non-blacks MDRD (S/P/Bld) [Vol rate/Area] 61 mL/min/{1.73_m2} Normal >60 [facility] Comment on above: Result Comment: Non- GFR Calc Performed By: #### L 500.2500, L500.4100 ####[facility] [address] [place], [address] Glucose [Mass/Vol] 101 mg/dL Normal 74-106 [facility] Comment on above: Result Comment: Fast ing Glucose result from 100 to 125 mg/dLsuggests IMPAIRED HOMEOSTASIS per A.D.A. criteria. Performed By: #### L 500.2500, L500.4100 ####[facility] [address] [place], [address] Potassium [Moles/Vol] 4.2 mmol/L Normal 3.5-5.1 [facility] Comment on above: Performed By: #### L 500.2500, L500.4100 ####[facility] [address] [place], [address] Sodium [Moles/Vol] 138 mmol/L Normal 136-145 [facility] Comment on above: Performed By: #### L 500.2500, L500.4100 ####[facility] [address] [place], [address] Urea nitrogen [Mass/Vol] 20 mg/dL High 7-18 [facility] Comment on above: Performed By: #### L 500.2500, L500.4100 ####[facility] [address] [place], [address] Lipid Profileon 05-16-2024 Cholesterol [Mass/Vol] 174 mg/dL Normal 200 [facility] Comment on above: Result Comment: <200 mg/dL Desirable 200-240 mg/dL Borderline >240 mg/dL High Risk Performed By: #### L 500.2500, L500.4100 ####[facility] [address] [place], [address] Cholesterol in HDL [Mass/Vol] 60 mg/dL Normal [facility] Comment on above: Result Comment: The drugs N-Acetylcysteine and Metamizole may falselydepress this assay. Reference Range HDL <40 mg/dL Low HDL Cholesterol HDL >or= 60 mg/dL High HDL Cholesterol Performed By: #### L 500.2500, L500.4100 ####[facility] [address] [place], [address] Cholesterol in LDL [Mass/Vol] 92 mg/dL Normal 0-130 [facility] Comment on above: Performed By: #### L 500.2500, L500.4100 ####[facility] [address] [place], [address] Cholesterol in VLDL [Mass/Vol] 22 mg/dL Normal 5-40 [facility] Comment on above: Performed By: #### L 500.2500, L500.4100 ####[facility] [address] [place], [address] Triglyceride [Mass/Vol] 111 mg/dL Normal [facility] Comment on above: Result Comment: The drugs N-Acetylcysteine and Metamizole may falselydepress this assay.Serum Triglycerides Reference Interval Normal <150 mg/dL Borderline high 150 - 199 mg/dL High 200 - 499 mg/dL Very High > or = 500 mg/dL Performed By: #### L 500.2500, L500.4100 ####[facility] [address] [place], [address] Cardiology Visit Reporton Cardiology Visit Report Normal [facility] Absolute lymphocyte countOrd ered By: Whitney Espitia on 03-28-2024 Lymphocytes Auto (Unsp spec) [#/Vol] 1.63 10*3/uL 0.83-4.51 [facility] Activated partial thrombopla stin time (aPTT) in platelet poor plasma by coagulation aOrdered By: Whitney Espitia on 03-28-2024 aPTT Coag (PPP) [Time] 29.1 s 24.1-36.2 [facility] Automated lymphocyte count a s percentage of total leukocytesOrdered By: Whitney Espitia on 03-28-2024 Lymphocytes/100 WBC Auto (Unsp spec) 19.0 % 19-41 [facility] Basophil percentageOrdered B y: Whitney Espitia on 03-28-2024 Basophils/100 WBC (Bld) 0.4 % 0-1 [facility] Chloride [Moles/Vol] 98 mmol/L 98-107 [facility] Eosinophils/100 WBC (Bld) 3.4 % 0-5 [facility] Glucose [Mass/Vol] 95 mg/dL 74-106 [facility] Hemoglobin (Bld) [Mass/Vol] 12.0 g/dL 12.0-15.0 [facility] Monocytes/100 WBC (Bld) 10.4 % 0-10 [facility] Neutrophils (Bld) [#/Vol] 5.7 10*3/uL 2.0-7.7 [facility] Neutrophils/100 WBC (Bld) 66.4 % 47-70 [facility] Potassium [Moles/Vol] 4.4 mmol/L 3.5-5.1 [facility] Sodium [Moles/Vol] 135 mmol/L 136-145 [facility] WBC (Bld) [#/Vol] 8.6 10*3/uL 4.4-11.0 [facility] Determination of erythrocyte mean corpuscular volume (MCV)Ordered By: Whitney Espitia on 03-28-2024 MCV (RBC) [Entitic vol] 93.8 fL 81-99 [facility] Erythrocyte distribution wid th ratioOrdered By: Whitney Espitia on 03-28-2024 Erythrocyte distribution width (RBC) [Ratio] 14.9 % 11.6-14.6 [facility] Erythrocyte distribution wid th standard deviationOrdered By: Whitney Espitia on 03-28-2024 Erythrocyte distribution width (RBC) [Entitic vol] 51.7 fL 35.1-43.9 [facility] Hematocrit Auto (Bld) [Volum e fraction]Ordered By: Whitney Espitia on 03-28-2024 Hematocrit (Bld) [Volume fraction] 40.7 % 37-47 [facility] Immature granulocytes/100 WB C Auto (Bld)Ordered By: Whitney Espitia on 03-28-2024 Immature granulocytes/100 WBC (Bld) 0.400 % 0.0-0.9 [facility] Comment on above: IG% - Immature Granu locytes (promyelocytes, myelocytes and metamyelocytes) > 1% indicates that a LEFT SHIFT is Present. Laboratory - Chemistry and C hemistry - challengeOrdered By: Whitney Espitia on 03-28-2024 CO2 [Moles/Vol] 38.0 mmol/L 21.0-32.0 [facility] Urea nitrogen/Creatinine [Mass ratio] 25.1 mg/mg 10-20 [facility] Laboratory - CoagulationOrde red By: Whitney Espitia on 03-28-2024 INR Coag (Bld) [Relative time] 1.2 {INR} [facility] PT Coag (PPP) [Time] 14.9 s 11.7-14.9 [facility] Laboratory - Hematology and Cell countsOrdered By: Whitney Espitia on 03-28-2024 MCH (RBC) [Entitic mass] 27.6 pg 27.0-32.0 [facility] MCHC (RBC) [Mass/Vol] 29.5 g/dL 32-36 [facility] Nucleated RBC/100 WBC (Bld) [Ratio] 0 % 0-5 [facility] Platelet mean volume (Bld) [Entitic vol] 9.6 fL 6.2-12.0 [facility] Platelets (Bld) [#/Vol] 289 10*3/uL 150-450 [facility] No Panel InformationOrdered By: Whitney Espitia on 03-28-2024 Estimated GFR (MDRD) Amer 97 mL/min >60 [facility] Comment on above: GFR Calc Estimated GFR (MDRD) Non-Af Amer 80 mL/min >60 [facility] Comment on above: Non- GFR Calc RBC Auto (Bld) [#/Vol]Ordere d By: Whitney Espitia on 03-28-2024 RBC (Bld) [#/Vol] 4.34 10*6/uL 4.2-5.4 [facility] Serum or plasma calcium diallo urement (mass/volume)Ordered By: Whitney Espitia on 03-28-2024 Calcium [Mass/Vol] 9.3 mg/dL 8.5-10.1 [facility] Serum or plasma creatinine m easurement (mass/volume)Ordered By: Whitney Espitia on 03-28-2024 Creatinine [Mass/Vol] 0.76 mg/dL 0.55-1.02 [facility] Comment on above: The validity of the calculated GFR & GFRAA in patients over 70 years has not been determined. Clinical correlation is essential. Serum or plasma urea nitroge n measurement (mass/volume)Ordered By: Whitney Espitia on 03-28-2024 Urea nitrogen [Mass/Vol] 19 mg/dL 7-18 [facility] Thin prep Papanicolaou smear with manual screeningOrdered By: Whitney Espitia on 03-28-2024 Thin prep Papanicolaou smear with manual screening -1 5-15 [facility] Absolute lymphocyte countOrd ered By: Dolores Martin on 01-21-2024 Lymphocytes Auto (Unsp spec) [#/Vol] 1.55 10*3/uL 0.83-4.51 [facility] Automated lymphocyte count a s percentage of total leukocytesOrdered By: Dolores Martin on 01-21-2024 Lymphocytes/100 WBC Auto (Unsp spec) 15.3 % 19-41 [facility] Basophil percentageOrdered B y: Dolores Martin on 01-21-2024 Basophils/100 WBC (Bld) 0.6 % 0-1 [facility] Chloride [Moles/Vol] 104 mmol/L 98-107 [facility] Eosinophils/100 WBC (Bld) 2.5 % 0-5 [facility] Glucose [Mass/Vol] 104 mg/dL 74-106 [facility] Comment on above: Fasting Glucose resu lt from 100 to 125 mg/dL suggests IMPAIRED HOMEOSTASIS per A.D.A. criteria. Hemoglobin (Bld) [Mass/Vol] 12.5 g/dL 12.0-15.0 [facility] Monocytes/100 WBC (Bld) 9.3 % 0-10 [facility] Neutrophils (Bld) [#/Vol] 7.3 10*3/uL 2.0-7.7 [facility] Neutrophils/100 WBC (Bld) 71.7 % 47-70 [facility] Potassium [Moles/Vol] 4.1 mmol/L 3.5-5.1 [facility] Sodium [Moles/Vol] 140 mmol/L 136-145 [facility] WBC (Bld) [#/Vol] 10.2 10*3/uL 4.4-11.0 [facility] Determination of erythrocyte mean corpuscular volume (MCV)Ordered By: Dolores Martin on 01-21-2024 MCV (RBC) [Entitic vol] 88.9 fL 81-99 [facility] Erythrocyte distribution wid th ratioOrdered By: Dolores Martin on 01-21-2024 Erythrocyte distribution width (RBC) [Ratio] 15.0 % 11.6-14.6 [facility] Erythrocyte distribution wid th standard deviationOrdered By: Dolores Martin on 01-21-2024 Erythrocyte distribution width (RBC) [Entitic vol] 49.0 fL 35.1-43.9 [facility] Hematocrit Auto (Bld) [Volum e fraction]Ordered By: Dolores Martin on 01-21-2024 Hematocrit (Bld) [Volume fraction] 40.0 % 37-47 [facility] Immature granulocytes/100 WB C Auto (Bld)Ordered By: Dolores Martin on 01-21-2024 Immature granulocytes/100 WBC (Bld) 0.600 % 0.0-0.9 [facility] Comment on above: IG% - Immature Granu locytes (promyelocytes, myelocytes and metamyelocytes) > 1% indicates that a LEFT SHIFT is Present. Laboratory - Chemistry and C hemistry - challengeOrdered By: Dolores Martin on 01-21-2024 CO2 [Moles/Vol] 34.0 mmol/L 21.0-32.0 [facility] Urea nitrogen/Creatinine [Mass ratio] 24.1 mg/mg 10-20 [facility] Laboratory - Hematology and Cell countsOrdered By: Dolores Martin on 01-21-2024 MCH (RBC) [Entitic mass] 27.8 pg 27.0-32.0 [facility] MCHC (RBC) [Mass/Vol] 31.3 g/dL 32-36 [facility] Nucleated RBC/100 WBC (Bld) [Ratio] 0 % 0-5 [facility] Platelet mean volume (Bld) [Entitic vol] 9.8 fL 6.2-12.0 [facility] Platelets (Bld) [#/Vol] 287 10*3/uL 150-450 [facility] No Panel InformationOrdered By: Dolores Martin on 01-21-2024 Estimated Creatinine Clearance Calc 73.11 ml/min [facility] Estimated GFR (MDRD) Amer 132 mL/min >60 [facility] Comment on above: GFR Calc Estimated GFR (MDRD) Non-Af Amer 109 mL/min >60 [facility] Comment on above: Non- GFR Calc Troponin I High Sensitivity 10 pg/mL 3.0-54.0 [facility] Comment on above: Please Note: New Kathi t Units and Gender Specific Reference Ranges. For more information see Policy Stat Procedure [facility] High Sensitivity Troponin (TNIH) and attachments. RBC Auto (Bld) [#/Vol]Ordere d By: Dolores Martin on 01-21-2024 RBC (Bld) [#/Vol] 4.50 10*6/uL 4.2-5.4 [facility] Serum or plasma calcium diallo urement (mass/volume)Ordered By: Dolores Martin on 01-21-2024 Calcium [Mass/Vol] 9.3 mg/dL 8.5-10.1 [facility] Serum or plasma creatinine m easurement (mass/volume)Ordered By: Dolores Martin on 01-21-2024 Creatinine [Mass/Vol] 0.58 mg/dL 0.55-1.02 [facility] Comment on above: The validity of the calculated GFR & GFRAA in patients over 70 years has not been determined. Clinical correlation is essential. Serum or plasma thyroid stim ulating hormone (TSH) measurement (units/volume)Ordered By: Dolores Martin on 01-21-2024 TSH Qn 1.53 uIU/mL 0.358-3.74 [facility] Serum or plasma urea nitroge n measurement (mass/volume)Ordered By: Dolores Martin on 01-21-2024 Urea nitrogen [Mass/Vol] 14 mg/dL 7-18 [facility] Thin prep Papanicolaou smear with manual screeningOrdered By: Dolores Martin on 01-21-2024 Thin prep Papanicolaou smear with manual screening 2 5-15 [facility] Absolute lymphocyte countOrd ered By: Christy Perea on 11-29-2023 Lymphocytes Auto (Unsp spec) [#/Vol] 1.50 10*3/uL 0.83-4.51 [facility] Basophil percentageOrdered B y: Christy Perea on 11-29-2023 Basophils/100 WBC (Bld) 0.7 % 0-1 [facility] Bilirubin [Mass/Vol] 0.40 mg/dL 0.20-1.00 [facility] Comment on above: For patients on eltr ombopag therapy, use of Dimension Malone TBIL is not recommended. Chloride [Moles/Vol] 99 mmol/L 98-107 [facility] Eosinophils/100 WBC (Bld) 4.3 % 0-5 [facility] Glucose [Mass/Vol] 95 mg/dL 74-106 [facility] Neutrophils (Bld) [#/Vol] 6.6 10*3/uL 2.0-7.7 [facility] Neutrophils/100 WBC (Bld) 67.9 % 47-70 [facility] Potassium [Moles/Vol] 4.4 mmol/L 3.5-5.1 [facility] Protein [Mass/Vol] 7.1 g/dL 6.4-8.2 [facility] Sodium [Moles/Vol] 139 mmol/L 136-145 [facility] WBC (Bld) [#/Vol] 9.7 10*3/uL 4.4-11.0 [facility] Blood erythrocytes count (nu mber/volume)Ordered By: Christy Perea on 11-29-2023 RBC (Bld) [#/Vol] 4.51 10*6/uL 4.2-5.4 [facility] Blood hemoglobin measurement (mass/volume)Ordered By: Christy Perea on 11-29-2023 Hemoglobin (Bld) [Mass/Vol] 12.4 g/dL 12.0-15.0 [facility] Blood lymphocytes/100 leukoc ytesOrdered By: Christy Perea on 11-29-2023 Lymphocytes/100 WBC (Bld) 15.4 % 19-41 [facility] Blood monocytes/100 leukocyt esOrdered By: Christy Perea on 11-29-2023 Monocytes/100 WBC (Bld) 11.5 % 0-10 [facility] Blood platelet mean volumeOr dered By: Christy Perea on 11-29-2023 Platelet mean volume (Bld) [Entitic vol] 10.0 fL 6.2-12.0 [facility] Determination of erythrocyte mean corpuscular volume (MCV)Ordered By: Christy Perea on 11-29-2023 MCV (RBC) [Entitic vol] 92.5 fL 81-99 [facility] Hematocrit Auto (Bld) [Volum e fraction]Ordered By: Christy Perea on 11-29-2023 Hematocrit (Bld) [Volume fraction] 41.7 % 37-47 [facility] Laboratory - Chemistry and C hemistry - challengeOrdered By: Christy Perea on 11-29-2023 ALP [Catalytic activity/Vol] 60 U/L 45-117 [facility] ALT [Catalytic activity/Vol] 15 U/L 13-56 [facility] CO2 [Moles/Vol] 36.0 mmol/L 21.0-32.0 [facility] Cobalamin (Vitamin B12) [Mass/Vol] 353 pg/mL 211-911 [facility] Globulin (S) [Mass/Vol] 3.9 g/dL 2.2-4.2 [facility] Urea nitrogen/Creatinine [Mass ratio] 19.7 mg/mg 10-20 [facility] Laboratory - Hematology and Cell countsOrdered By: Christy Perea on 11-29-2023 Erythrocyte distribution width (RBC) [Entitic vol] 47.0 fL 35.1-43.9 [facility] Erythrocyte distribution width (RBC) [Ratio] 13.8 % 11.6-14.6 [facility] Immature granulocytes/100 WBC (Bld) 0.200 % 0.0-0.9 [facility] Comment on above: IG% - Immature Granu locytes (promyelocytes, myelocytes and metamyelocytes) > 1% indicates that a LEFT SHIFT is Present. MCH (RBC) [Entitic mass] 27.5 pg 27.0-32.0 [facility] Nucleated RBC/100 WBC (Bld) [Ratio] 0 % 0-5 [facility] MCHC Auto (RBC) [Mass/Vol]Or dered By: Christy Perea on 11-29-2023 MCHC (RBC) [Mass/Vol] 29.7 g/dL 32-36 [facility] No Panel InformationOrdered By: Christy Perea on 11-29-2023 Estimated GFR (MDRD) Amer 104 mL/min >60 [facility] Comment on above: GFR Calc Estimated GFR (MDRD) Non-Af Amer 86 mL/min >60 [facility] Comment on above: Non- GFR Calc Thyroid Stimulating Hormone (TSH) 2.21 uIU/mL 0.358-3.74 [facility] Platelets bldOrdered By: Christy Perea on 11-29-2023 Platelets (Bld) [#/Vol] 322 10*3/uL 150-450 [facility] Serum or plasma albumin diallo urement (mass/volume)Ordered By: Christy Perea on 11-29-2023 Albumin [Mass/Vol] 3.2 g/dL 3.2-5.0 [facility] Serum or plasma albumin/glob ulin mass ratioOrdered By: Christy Perea on 11-29-2023 Albumin/Globulin [Mass ratio] 0.8 {ratio} 0.9-2.4 [facility] Serum or plasma calcium diallo urement (mass/volume)Ordered By: Christy Perea on 11-29-2023 Calcium [Mass/Vol] 8.8 mg/dL 8.5-10.1 [facility] Serum or plasma creatinine m easurement (mass/volume)Ordered By: Christy Perea on 11-29-2023 Creatinine [Mass/Vol] 0.71 mg/dL 0.55-1.02 [facility] Comment on above: The validity of the calculated GFR & GFRAA in patients over 70 years has not been determined. Clinical correlation is essential. Serum or plasma urea nitroge n measurement (mass/volume)Ordered By: Christy Perea on 11-29-2023 Urea nitrogen [Mass/Vol] 14 mg/dL 7-18 [facility] Thin prep Papanicolaou smear with manual screeningOrdered By: Christy Perea on 11-29-2023 Thin prep Papanicolaou smear with manual screening 14 U/L 15-37 [facility] Thin prep Papanicolaou smear with manual screening 4 5-15 [facility] Basophil percentageOrdered B y: Preston Pineda on 07-10-2023 WBC (Bld) [#/Vol] 15.5 10*3/uL 4.4-11.0 [facility] Blood erythrocytes count (nu mber/volume)Ordered By: Preston Pineda on 07-10-2023 RBC (Bld) [#/Vol] 4.54 10*6/uL 4.2-5.4 [facility] Blood hemoglobin measurement (mass/volume)Ordered By: Preston Pineda on 07-10-2023 Hemoglobin (Bld) [Mass/Vol] 13.3 g/dL 12.0-15.0 [facility] Blood platelet mean volumeOr dered By: Preston Pineda on 07-10-2023 Platelet mean volume (Bld) [Entitic vol] 9.9 fL 6.2-12.0 [facility] Determination of erythrocyte mean corpuscular volume (MCV)Ordered By: Preston Pineda on 07-10-2023 MCV (RBC) [Entitic vol] 97.4 fL 81-99 [facility] Hematocrit Auto (Bld) [Volum e fraction]Ordered By: Preston Pineda on 07-10-2023 Hematocrit (Bld) [Volume fraction] 44.2 % 37-47 [facility] Laboratory - Hematology and Cell countsOrdered By: Preston Pineda on 07-10-2023 Erythrocyte distribution width (RBC) [Entitic vol] 51.3 fL 35.1-43.9 [facility] Erythrocyte distribution width (RBC) [Ratio] 14.2 % 11.6-14.6 [facility] MCH (RBC) [Entitic mass] 29.3 pg 27.0-32.0 [facility] MCHC Auto (RBC) [Mass/Vol]Or dered By: Preston Pineda on 07-10-2023 MCHC (RBC) [Mass/Vol] 30.1 g/dL 32-36 [facility] Platelets bldOrdered By: Renetta Pineda on 07-10-2023 Platelets (Bld) [#/Vol] 257 10*3/uL 150-450 [facility] Absolute lymphocyte countOrd ered By: Geoff Galvan on 07-09-2023 Lymphocytes Auto (Unsp spec) [#/Vol] 0.64 10*3/uL 0.83-4.51 [facility] Basophil percentageOrdered B y: Geoff Galvan on 07-09-2023 Basophils/100 WBC (Bld) 0.3 % 0-1 [facility] Chloride [Moles/Vol] 100 mmol/L 98-107 [facility] Eosinophils/100 WBC (Bld) 0.0 % 0-5 [facility] Glucose [Mass/Vol] 144 mg/dL 74-106 [facility] Comment on above: Fasting Glucose resu lt greater than or equal to 126 mg/dL suggests DIABETES MELLITUS per A.D.A. criteria. Neutrophils (Bld) [#/Vol] 11.7 10*3/uL 2.0-7.7 [facility] Neutrophils/100 WBC (Bld) 91.8 % 47-70 [facility] Potassium [Moles/Vol] 4.3 mmol/L 3.5-5.1 [facility] Sodium [Moles/Vol] 137 mmol/L 136-145 [facility] Blood lymphocytes/100 leukoc ytesOrdered By: Geoff Galvan on 07-09-2023 Lymphocytes/100 WBC (Bld) 5.0 % 19-41 [facility] Blood monocytes/100 leukocyt esOrdered By: Geoff Galvan on 07-09-2023 Monocytes/100 WBC (Bld) 2.0 % 0-10 [facility] Laboratory - Chemistry and C hemistry - challengeOrdered By: Geoff Galvan on 07-09-2023 CO2 [Moles/Vol] 21.0 mmol/L 21.0-32.0 [facility] Urea nitrogen/Creatinine [Mass ratio] 18.1 mg/mg 10-20 [facility] Laboratory - Hematology and Cell countsOrdered By: eGoff Galvan on 07-09-2023 Immature granulocytes/100 WBC (Bld) 0.900 % 0.0-0.9 [facility] Comment on above: IG% - Immature Granu locytes (promyelocytes, myelocytes and metamyelocytes) > 1% indicates that a LEFT SHIFT is Present. Nucleated RBC/100 WBC (Bld) [Ratio] 0 % 0-5 [facility] No Panel InformationOrdered By: Geoff Galvan on 07-09-2023 Estimated Creatinine Clearance Calc 41.99 ml/min [facility] Estimated GFR (MDRD) Amer 140 mL/min >60 [facility] Comment on above: GFR Calc Estimated GFR (MDRD) Non-Af Amer 116 mL/min >60 [facility] Comment on above: Non- GFR Calc Serum or plasma calcium diallo urement (mass/volume)Ordered By: Geoff Galvan on 07-09-2023 Calcium [Mass/Vol] 8.9 mg/dL 8.5-10.1 [facility] Serum or plasma creatinine m easurement (mass/volume)Ordered By: Geoff Galvan on 07-09-2023 Creatinine [Mass/Vol] 0.55 mg/dL 0.55-1.02 [facility] Comment on above: The validity of the calculated GFR & GFRAA in patients over 70 years has not been determined. Clinical correlation is essential. Serum or plasma urea nitroge n measurement (mass/volume)Ordered By: Geoff Galvan on 07-09-2023 Urea nitrogen [Mass/Vol] 10 mg/dL 7-18 [facility] Thin prep Papanicolaou smear with manual screeningOrdered By: Geoff Galvan on 07-09-2023 Thin prep Papanicolaou smear with manual screening 16 5-15 [facility] Bacteria identified Respirat ory culture Nom (Unsp spec)Ordered By: Archie Gamino on 07-08-2023 Respiratory Culture Haemophilus influenzae [facility] Gram stain for investigation of transfusion reactionOrdered By: Archie Gamino on 07-08-2023 Microscopic observation Gram stain Nom (Unsp spec) [facility] Laboratory - Microbiology an d Antimicrobial susceptibilityOrdered By: Daja Hogan on 07-08-2023 SARS-CoV-2 (COVID-19) RNA KEARA+probe Ql (Unsp spec) [facility] No Panel InformationOrdered By: Archie Gamino on 07-08-2023 D-Dimer Quantitative (PE/DVT) 0.63 FEU/ug/m 0.27-0.49 [facility] Comment on above: D-Dimer ELEVATED (>0 .49): Additional studies and clinicalassessments are indicated to conclude diagnosis of:Deep Vein Thrombosis (DVT) or Pulmonary Embolism (PE)CRITICAL VALUE VERIFIED. CALLED TO BO OQUENDO07/08/23 1604 [address] Hogan.RESULTS READ BACK BY SAME . Troponin I High Sensitivity 24 pg/mL 3.0-54.0 [facility] Comment on above: Please Note: New Kathi t Units and Gender Specific Reference Ranges. For more information see Policy Stat Procedure [facility] High Sensitivity Troponin (TNIH) and attachments. Sven 07-20-2022 [place] Telephone (PULN) BENITOPIPER Johan ([id number]) 1955 F Date Time Provider Department 07/20/22 STEPHANY LIND During your visit today, we recorded the following information about you: Stephany Wninerson 07/20/2022 2:52 PM Signed [facility] Information The patient wants to know why her PVR, 2.62 Wood Units, did not qualify her for PH medications? Per Dr. Newell, the PVR needs to be > 3 Wood Units for the patient to qualify in the future. The patient will contact is if she has any further questions. Bhavik Lind BSN, RN PH AND HHT Separator Operator Respiratory [place] [facility] Allergies As of Date: 07/20/2022 Noted Allergy Reaction DUST MITES 06/30/2022 7 - Swelling FEATHERS 06/30/2022 7 - Swelling MOLD 06/30/2022 7 - Swelling Date Reviewed: 06/30/2022 Reviewed by: Lorne Newell MD - Fully Assessed Reason for Visit: Separator Operator - Other [3602] Prescriptions as of 07/20/2022 [...] Status:Closed by STEPHANY LIND on 07/20/22 Normal [facility] ARTERIAL BLOOD GASESon 07-19 Base excess Calc (Bld) [Moles/Vol] 1 mmol/L Normal 0-2 [facility] Comment on above: Order Comment: Speci men Type: ARTERIAL BLOOD SPECIMEN Ordering Facility: [facility] Address: [address] [place] [address] Performed By: #### A LLBG #### [facility] CLIA [id number] [address] [place] [address] [place] CALCIUM IONIZED, PH CORRECTED 1.18 mmol/L Normal 1.08-1.30 [facility] Comment on above: Order Comment: Speci men Type: ARTERIAL BLOOD SPECIMEN Ordering Facility: [facility] Address: [address] [place] [address] Performed By: #### A LLBG #### [facility] CLIA [id number] [address] [place] [address] [place] Calcium.ionized (Bld) [Mass/Vol] 1.13 mmol/L Normal 1.08-1.30 [facility] Comment on above: Order Comment: Speci men Type: ARTERIAL BLOOD SPECIMEN Ordering Facility: [facility] Address: [address] [place] [address] Performed By: #### A LLBG #### [facility] CLIA [id number] [address] [place] [address] [place] Carboxyhemoglobin (BldA) [Mass fraction] 1.4 % Normal 0.0-2.0 [facility] Comment on above: Order Comment: Speci men Type: ARTERIAL BLOOD SPECIMEN Ordering Facility: [facility] Address: [address] [place] [address] Result Comment: Carb oxyhemoglobin Reference Range for Smokers: 2.0-8.0% Performed By: #### A LLBG #### [facility] CLIA [id number] [address] [place] [address] [place] CO2 (Bld) [Partial pressure] 32 mm Hg Low 36-46 [facility] Comment on above: Order Comment: Speci men Type: ARTERIAL BLOOD SPECIMEN Ordering Facility: [facility] Address: [address] [place], [place] [address] Performed By: #### A LLBG #### [facility] CLIA [id number] [address] [place] [address] [place] CO2 [Moles/Vol] 25 mmol/L Normal 22-28 [facility] Comment on above: Order Comment: Speci men Type: ARTERIAL BLOOD SPECIMEN Ordering Facility: [facility] Address: [address] [place], [place] [address] Performed By: #### A LLBG #### [facility] CLIA [id number] [address] [place] [address] [place] CO2 adjusted to patient's actual temperature (Bld) [Partial pressure] 32 mmHg Low 36-46 [facility] Comment on above: Order Comment: Speci men Type: ARTERIAL BLOOD SPECIMEN Ordering Facility: [facility] Address: [address] [place], [place] [address] Performed By: #### A LLBG #### [facility] CLIA [id number] [address] [place] [address] [place] Glucose [Mass/Vol] 97 mg/dL Normal 60-105 [facility] Comment on above: Order Comment: Speci men Type: ARTERIAL BLOOD SPECIMEN Ordering Facility: [facility] Address: [address] [place] [address] Performed By: #### A LLBG #### [facility] CLIA [id number] [address] [place], [place] [address] [place] HCO3 (Bld) [Moles/Vol] 24 mmol/L Normal 22-26 [facility] Comment on above: Order Comment: Speci men Type: ARTERIAL BLOOD SPECIMEN Ordering Facility: [facility] Address: [address] [place] [address] Performed By: #### A LLBG #### [facility] CLIA [id number] [address] [place] [address] [place] Hematocrit (Bld) [Volume fraction] 44.0 % Normal 36.0-46.0 [facility] Comment on above: Order Comment: Speci men Type: ARTERIAL BLOOD SPECIMEN Ordering Facility: [facility] Address: [address] [place] [address] Performed By: #### A LLBG #### [facility] CLIA [id number] [address] [place] [address] [place] Hemoglobin (Bld) [Mass/Vol] 14.3 g/dL Normal 11.5-15.5 [facility] Comment on above: Order Comment: Speci men Type: ARTERIAL BLOOD SPECIMEN Ordering Facility: [facility] Address: [address] [place], [place] [address] Performed By: #### A LLBG #### [facility] CLIA [id number] [address] [place] [address] [place] Lactate [Moles/Vol] 0.9 mmol/L Normal 0.5-2.2 [facility] Comment on above: Order Comment: Speci men Type: ARTERIAL BLOOD SPECIMEN Ordering Facility: [facility] Address: [address] [place], [place] [address] Performed By: #### A LLBG #### [facility] CLIA [id number] [address] [place] [address] [place] Order Comment: Speci men Type: VENOUS BLOOD SPECIMEN Ordering Facility: [facility] Address: [address] [place] [address] Performed By: #### 2 4344-4 #### [facility] CLIA [id number] [address] [place] [address] [place] Methemoglobin (Bld) [Mass fraction] 0.9 % Normal 0.0-1.5 [facility] Comment on above: Order Comment: Speci men Type: ARTERIAL BLOOD SPECIMEN Ordering Facility: [facility] Address: [address] [place] [address] Performed By: #### A LLBG #### [facility] CLIA [id number] [address] [place], [place] [address] [place] Oxygen (Bld) [Partial pressure] 77 mm Hg Low 85-95 [facility] Comment on above: Order Comment: Speci men Type: ARTERIAL BLOOD SPECIMEN Ordering Facility: [facility] Address: [address] [place], [place] [phone] Performed By: #### A LLBG #### [facility] CLIA [id number] [address] [place] [address] [place] Oxygen adjusted to patient's actual temperature (Bld) [Partial pressure] 77 mmHg Low 85-95 [facility] Comment on above: Order Comment: Speci men Type: ARTERIAL BLOOD SPECIMEN Ordering Facility: [facility] Address: [address] [place], [place] [address] Performed By: #### A LLBG #### [facility] CLIA [id number] [address] [place], [place] [address] [place] OXYGEN SATURATION, ARTERIAL 96 % Normal 95-98 [facility] Comment on above: Order Comment: Speci men Type: ARTERIAL BLOOD SPECIMEN Ordering Facility: [facility] Address: [address] [place], [place] [phone] Performed By: #### A LLBG #### [facility] CLIA [id number] [address] [place], [place] [address] [place] Oxyhemoglobin (BldA) [Mass fraction] 94 % Low 95-98 [facility] Comment on above: Order Comment: Speci men Type: ARTERIAL BLOOD SPECIMEN Ordering Facility: [facility] Address: [address] [place] [id number] Performed By: #### A LLBG #### [facility] CLIA [id number] [address] [place], [place] [address] [place] PATIENT POSITION-ICPET Wedge Normal [facility] Comment on above: Order Comment: Speci men Type: ARTERIAL BLOOD SPECIMEN Ordering Facility: [facility] Address: [address] [place], [place] [address] Performed By: #### A LLBG #### [facility] CLIA [id number] [address] [place] [address] [place] pH (Bld) 7.48 [pH] High 7.35-7.45 [facility] Comment on above: Order Comment: Speci men Type: ARTERIAL BLOOD SPECIMEN Ordering Facility: [facility] Address: [address] [place], [place] [address] Performed By: #### A LLBG #### [facility] CLIA [id number] [address] [place] [address] [place] pH adjusted to patient's actual temperature (Bld) 7.48 High 7.35-7.45 [facility] Comment on above: Order Comment: Speci men Type: ARTERIAL BLOOD SPECIMEN Ordering Facility: [facility] Address: [address] [place], [place] [address] Performed By: #### A LLBG #### [facility] CLIA [id number] [address] [place] [address] [place] Potassium [Moles/Vol] 3.5 mmol/L Normal 3.5-5.0 [facility] Comment on above: Order Comment: Speci men Type: ARTERIAL BLOOD SPECIMEN Ordering Facility: [facility] Address: [address] [place], [place] [address] Performed By: #### A LLBG #### [facility] CLIA [id number] [address] [place] [address] [place] Sodium [Moles/Vol] 138 mmol/L Normal 136-144 [facility] Comment on above: Order Comment: Speci men Type: ARTERIAL BLOOD SPECIMEN Ordering Facility: [facility] Address: [address] [place] [address] Performed By: #### A LLBG #### [facility] CLIA [id number] [address] [place] [address] [place] Base excess Calc (Bld) [Moles/Vol] 1 mmol/L 0 - 2 mmol/L [facility] Calcium Ionized, pH corrected 1.18 mmol/L 1.08 - 1.30 mmol/L [facility] Calcium.ionized (Bld) [Mass/Vol] 1.13 mmol/L 1.08 - 1.30 mmol/L [facility] Carboxyhemoglobin (BldA) [Mass fraction] 1.4 % 0.0 - 2.0 % [facility] CO2 (Bld) [Partial pressure] 32 mm Hg Low 36 - 46 mm Hg [facility] CO2 [Moles/Vol] 25 mmol/L 22 - 28 mmol/L [facility] CO2 adjusted to patient's actual temperature (Bld) [Partial pressure] 32 mmHg Low 36 - 46 mmHg [facility] Glucose [Mass/Vol] 97 mg/dL 60 - 105 mg/dL [facility] HCO3 (Bld) [Moles/Vol] 24 mmol/L 22 - 26 mmol/L [facility] Hematocrit (Bld) [Volume fraction] 44.0 % 36.0 - 46.0 % [facility] Hemoglobin (Bld) [Mass/Vol] 14.3 g/dL 11.5 - 15.5 g/dL [facility] Lactate [Moles/Vol] 0.9 mmol/L 0.5 - 2. 2 mmol/L [facility] Methemoglobin (Bld) [Mass fraction] 0.9 % 0.0 - 1.5 % [facility] Oxygen (Bld) [Partial pressure] 77 mm Hg Low 85 - 95 mm Hg [facility] Oxygen adjusted to patient's actual temperature (Bld) [Partial pressure] 77 mmHg Low 85 - 95 mmHg [facility] Oxygen saturation in Blood 96 % 95 - 98 % [facility] Oxyhemoglobin (BldA) [Mass fraction] 94 % Low 95 - 98 % [facility] Patient Position Wedge [facility] pH (Bld) 7.48 [pH] High 7.35 - 7.45 [facility] pH adjusted to patient's actual temperature (Bld) 7.48 High 7.35 - 7.45 [facility] Potassium [Moles/Vol] 3.5 mmol/L 3.5 - 5.0 mmol/L [facility] Sodium [Moles/Vol] 138 mmol/L 136 - 144 mmol/L [facility] CNOVon 07-19-2022 CNOV Office Visit (PUBRON ) PIPER CLARK ([id number]) 1955 F Date Time Provider Department 07/19/22 4:00 PM [facility] [id number] PROCEDURE RMPUBRON During your visit today, we recorded the following information about you: Weight Height 88.2 kg 1.575 m Referring Provider: LORNE NEWELL [[id number]] Allergies As of Date: 07/19/2022 Noted Allergy Reaction DUST MITES 06/30/2022 7 - Swelling FEATHERS 06/30/2022 7 - Swelling MOLD 06/30/2022 7 - Swelling Date Reviewed: 06/30/2022 Reviewed by: Lorne Newell MD - Fully Assessed Primary Visit Diagnosis:Stage 3 severe COPD by GOLD classification (HCC) [J44.9] Order(s):XR ARTERY CATHETER (POC) FOR REYNALDO USE ONLY [2815090] Order #: [id number]: 1 US VASCULAR (POC) FOR REYNALDO USE ONLY [722[address]] Order #: [id number]. #:[id number]: 1 ARTERIAL BLOOD GASES [SQALLBG] Order #: [id number]. #:[id number] VENOUS BLOOD GASES [SQVALLBG] Order #: [id number]. #:[id number] Prescriptions as of 07/19/2022 - fluticasone-vilanterol (BREO [...] Status:Closed by LE ORTEGA on 07/19/22 Normal [facility] Gas and Carbon monoxide pane l (BldV)on 07-19-2022 Base excess Calc (BldV) [Moles/Vol] 3 mmol/L High 0-2 [facility] Comment on above: Order Comment: Speci men Type: VENOUS BLOOD SPECIMEN Ordering Facility: [facility] Address: [address] [place] [address] Performed By: #### 2 4344-4 #### [facility] CLIA [id number] [address] [place] [address] [place] CALCIUM IONIZED, PH CORRECTED 1.24 mmol/L Normal 1.08-1.30 [facility] Comment on above: Order Comment: Speci men Type: VENOUS BLOOD SPECIMEN Ordering Facility: [facility] Address: [address] [place] [address] Performed By: #### 2 4344-4 #### [facility] CLIA [id number] [address] [place] [address] [place] Calcium.ionized (Bld) [Mass/Vol] 1.24 mmol/L Normal 1.08-1.30 [facility] Comment on above: Order Comment: Speci men Type: VENOUS BLOOD SPECIMEN Ordering Facility: [facility] Address: [address] [place], [place] [address] Performed By: #### 2 4344-4 #### [facility] CLIA [id number] [address] [place] [address] [place] Carboxyhemoglobin (BldV) [Mass fraction] 0.8 % Normal 0.0-2.0 [facility] Comment on above: Order Comment: Speci men Type: VENOUS BLOOD SPECIMEN Ordering Facility: [facility] Address: [address] [place] [address] Result Comment: Carb oxyhemoglobin Reference Range for Smokers: 2.0-8.0% Performed By: #### 2 4344-4 #### [facility] CLIA [id number] [address] [place] [address] [place] CO2 (BldV) [Partial pressure] 48 mm[Hg] Normal 42-55 [facility] Comment on above: Order Comment: Speci men Type: VENOUS BLOOD SPECIMEN Ordering Facility: [facility] Address: [address] [place], [place] [address] Performed By: #### 2 4344-4 #### [facility] CLIA [id number] [address] [place] [address] [place] CO2 [Moles/Vol] 30 mmol/L High 25-29 [facility] Comment on above: Order Comment: Speci men Type: VENOUS BLOOD SPECIMEN Ordering Facility: [facility] Address: [address] [place] [address] Performed By: #### 2 4344-4 #### [facility] CLIA [id number] [address] [place] [address] [place] CO2 adjusted to patient's actual temperature (BldV) [Partial pressure] 48 mmHg Normal 42-55 [facility] Comment on above: Order Comment: Speci men Type: VENOUS BLOOD SPECIMEN Ordering Facility: [facility] Address: [address] [place] [address] Performed By: #### 2 4344-4 #### [facility] CLIA [id number] [address] [place] [address] [place] Glucose [Mass/Vol] 103 mg/dL Normal 60-105 [facility] Comment on above: Order Comment: Speci men Type: VENOUS BLOOD SPECIMEN Ordering Facility: [facility] Address: [address] [place], [place] [address] Performed By: #### 2 4344-4 #### [facility] CLIA [id number] [address] [place] [address] [place] HCO3 (Bld) [Moles/Vol] 28 mmol/L Normal 24-28 [facility] Comment on above: Order Comment: Speci men Type: VENOUS BLOOD SPECIMEN Ordering Facility: [facility] Address: [address] [place], [place] [address] Performed By: #### 2 4344-4 #### [facility] CLIA [id number] [address] [place] [address] [place] Hematocrit (Bld) [Volume fraction] 43.1 % Normal 36.0-46.0 [facility] Comment on above: Order Comment: Speci men Type: VENOUS BLOOD SPECIMEN Ordering Facility: [facility] Address: [address] [place], [place] [address] Performed By: #### 2 4344-4 #### [facility] CLIA [id number] [address] [place], [place] [address] [place] Hemoglobin (Bld) [Mass/Vol] 14.1 g/dL Normal 11.5-15.5 [facility] Comment on above: Order Comment: Speci men Type: VENOUS BLOOD SPECIMEN Ordering Facility: [facility] Address: [address] [place] [address] Performed By: #### 2 4344-4 #### [facility] CLIA [id number] [address] [id number] [address] [place] Methemoglobin (Bld) [Mass fraction] 1.0 % Normal 0.0-1.5 [facility] Comment on above: Order Comment: Speci men Type: VENOUS BLOOD SPECIMEN Ordering Facility: [facility] Address: [address] [place] [address] Performed By: #### 2 4344-4 #### [facility] CLIA [id number] [address] [place] [address] [place] Oxygen (BldV) [Partial pressure] 43 mm[Hg] Normal 35-45 [facility] Comment on above: Order Comment: Speci men Type: VENOUS BLOOD SPECIMEN Ordering Facility: [facility] Address: [address] [place], [place] [address] Performed By: #### 2 4344-4 #### [facility] CLIA [id number] [address] [place] [address] [place] Oxygen adjusted to patient's actual temperature (BldV) [Partial pressure] 43 mmHg Normal 35-45 [facility] Comment on above: Order Comment: Speci men Type: VENOUS BLOOD SPECIMEN Ordering Facility: [facility] Address: [address] [place] [address] Performed By: #### 2 4344-4 #### [facility] CLIA [id number] [address] [place] [address] [place] Oxygen saturation in Blood 76 % Normal 60-85 [facility] Comment on above: Order Comment: Speci men Type: VENOUS BLOOD SPECIMEN Ordering Facility: [facility] Address: [address] [place], [place] [address] Performed By: #### 2 4344-4 #### [facility] CLIA [id number] [address] [place] [address] [place] Oxyhemoglobin (BldV) [Mass fraction] 74 % Normal 60-85 [facility] Comment on above: Order Comment: Speci men Type: VENOUS BLOOD SPECIMEN Ordering Facility: [facility] Address: [address] [place], [place] [address] Performed By: #### 2 4344-4 #### [facility] CLIA [id number] [address] [place] [address] [place] PATIENT POSITION-ICPET Baseline Normal Cl [facility] Comment on above: Order Comment: Speci men Type: VENOUS BLOOD SPECIMEN Ordering Facility: [facility] Address: [address] [place] [address] Result Comment: Supi ne Performed By: #### 2 4344-4 #### [facility] CLIA [id number] [address] [place] [address] [place] pH (BldV) 7.39 [pH] Normal 7.32-7.42 [facility] Comment on above: Order Comment: Speci men Type: VENOUS BLOOD SPECIMEN Ordering Facility: [facility] Address: [address] [place], [place] [address] Performed By: #### 2 4344-4 #### [facility] CLIA [id number] [address] [place] [address] [place] pH adjusted to patient's actual temperature (BldV) 7.39 Normal 7.32-7.42 [facility] Comment on above: Order Comment: Speci men Type: VENOUS BLOOD SPECIMEN Ordering Facility: [facility] Address: [address] [place], [place] [address] Performed By: #### 2 4344-4 #### [facility] CLIA [id number] [address] [place] [address] [place] Potassium [Moles/Vol] 3.8 mmol/L Normal 3.5-5.0 [facility] Comment on above: Order Comment: Speci men Type: VENOUS BLOOD SPECIMEN Ordering Facility: [facility] Address: [address] [place], [place] [address] Performed By: #### 2 4344-4 #### [facility] CLIA [id number] [address] [place] [address] [place] Sodium [Moles/Vol] 139 mmol/L Normal 136-144 [facility] Comment on above: Order Comment: Speci men Type: VENOUS BLOOD SPECIMEN Ordering Facility: [facility] Address: [address] [place] [address] Performed By: #### 2 4344-4 #### [facility] [place] [id number] [address] [place] [address] [place] Base excess Calc (BldV) [Moles/Vol] 3 mmol/L High 0 - 2 mmol/L [facility] Calcium Ionized, pH corrected 1.24 mmol/L 1.08 - 1.30 mmol/L [facility] Calcium.ionized (Bld) [Mass/Vol] 1.24 mmol/L 1.08 - 1.30 mmol/L [facility] Carboxyhemoglobin (BldV) [Mass fraction] 0.8 % 0.0 - 2.0 % [facility] CO2 (BldV) [Partial pressure] 48 mm[Hg] 42 - 55 mmHg [facility] CO2 [Moles/Vol] 30 mmol/L High 25 - 29 mmol/L [facility] CO2 adjusted to patient's actual temperature (BldV) [Partial pressure] 48 mmHg 42 - 55 mmHg [facility] Glucose [Mass/Vol] 103 mg/dL 60 - 105 mg/dL [facility] HCO3 (Bld) [Moles/Vol] 28 mmol/L 24 - 28 mmol/L [facility] Hematocrit (Bld) [Volume fraction] 43.1 % 36.0 - 46.0 % [facility] Hemoglobin (Bld) [Mass/Vol] 14.1 g/dL 11.5 - 15.5 g/dL [facility] Lactate [Moles/Vol] 0.9 mmol/L 0.5 - 2. 2 mmol/L [facility] Methemoglobin (Bld) [Mass fraction] 1.0 % 0.0 - 1.5 % [facility] Oxygen (BldV) [Partial pressure] 43 mm[Hg] 35 - 45 mmHg [facility] Oxygen adjusted to patient's actual temperature (BldV) [Partial pressure] 43 mmHg 35 - 45 mmHg [facility] Oxygen saturation in Blood 76 % 60 - 85 % [facility] Oxyhemoglobin (BldV) [Mass fraction] 74 % 60 - 85 % [facility] Patient Position Baseline Supine [facility] pH (BldV) 7.39 [pH] 7.32 - 7.42 [facility] pH adjusted to patient's actual temperature (BldV) 7.39 7.32 - 7.42 [facility] Potassium [Moles/Vol] 3.8 mmol/L 3.5 - 5.0 mmol/L [facility] Sodium [Moles/Vol] 139 mmol/L 136 - 144 mmol/L [facility] US VASCULAR (POC) FOR REYNALDO US E ONLYon 07-19-2022 [facility] SARS-CoV-2 RNA Resp Ql KEARA+p robeon 07-17-2022 SARS-CoV-2 (COVID-19) RNA KEARA+probe Ql (Resp) SARS-CoV-2 (Agent of COVID-19) Not Detected by RT-PCR or equivalent method. Normal Not Detected [facility] Comment on above: Order Comment: Speci men Type: VENOUS BLOOD SPECIMEN Ordering Facility: [facility] Address: [address] [place] [address] Result Comment: This test was developed and its performance characteristics determined by [facility]'s [facility] [place]. This test has been authorized by FDA under an Emergency Use Authorization (EUA). This test has been validated in accordance with the FDA's Guidance Document Policy for Diagnostics Testing in Laboratories Certified to Perform High Complexity Testing under CLIA prior to Emergency use Authorization for Coronavirus Disease 2019 during the Public Health Emergency issued on January 24, 2020. Test performed by [facility], [facility] [place], [address] [place] [address]. Performed By: #### 2 4344-4 #### [facility] CLIA [id number] [address] [place] [address] [place] [address] [place] CNPBettina 07-12-2022 CNPN Telephone (PULMMN) BENITOPIPER Johan ([id number]) 1955 F Date Time Provider Department 07/12/22 ORLANDO SIMPSON During your visit today, we recorded the following information about you: Orlando Simpson MA 07/12/2022 12:37 PM Signed Patient called me to state her grandson tested positive for Covid. Covid order is being placed for her to have one before her RHC on 07/[address] Newell. Orlando Simpson Clinical Slasher Hand [facility] [place] Allergies As of Date: 07/12/2022 Noted Allergy Reaction DUST MITES 06/30/2022 7 - Swelling FEATHERS 06/30/2022 7 - Swelling MOLD 06/30/2022 7 - Swelling Date Reviewed: 06/30/2022 Reviewed by: Lorne Newell MD - Fully Assessed Reason for Visit: Patient Question [[id number]] Prescriptions as of 07/12/2022 - fluticasone-vilanterol (BREO [...] Encounter Status:Closed by ORLANDO SIMPSON on 07/12/22 [place] 07-11-2022 [facility] Telephone (JESSIE) PIPER CLARK ([id number]) 1955 F Date Time Provider Department 07/11/22 ORLANDO SIMPSON During your visit today, we recorded the following information about you: Orlando Simpson MA 07/11/2022 10:22 AM Signed Called patient to confirm her RHC with Dr. Newell on 07/19 at 4pm. No answer, left VM. Orlando Simpson Clinical Slasher Hand [facility] [place] Allergies As of Date: 07/11/2022 Noted Allergy Reaction DUST MITES 06/30/2022 7 - Swelling FEATHERS 06/30/2022 7 - Swelling MOLD 06/30/2022 7 - Swelling Date Reviewed: 06/30/2022 Reviewed by: Lorne Newell MD - Fully Assessed Reason for Visit: Appointment Confirmation [[id number]] Prescriptions as of 07/11/2022 - fluticasone-vilanterol (BREO [...] Encounter Status:Closed by ORLANDO SIMPSON on 07/11/22 [place] 06-05-2022 CNPN Telephone (PULMMN) PIPER CLARK ([id number]) 1955 Date Time Provider Department 06/05/22 ORLANDO SIMPSON During your visit today, we recorded the following information about you: Orlando Simpson MA 06/05/2022 10:54 AM Signed Called patient to schedule her RHC with Dr. Newell on 07/19/2022 at 4pm. NPO 4 hours pre-procedure. Anticoagulation: None at this time Must have a tank driver for transportation post procedure. May take other medications as prescribed prior to procedure. Check in at desk G-11 at 3:30pm Orlando Simpson Clinical Slasher Hand [facility] [place] Allergies As of Date: 06/05/2022 (Not on File) Date Reviewed: Never Reviewed Reason for Visit: Care Coordination [3491] Problem List As Of Date: 06/05/2022 (None) Encounter Status:Closed by ORLANDO SIMPSON on 06/05/22 [place] 06-02-2022 CNPN Telephone (PULMMN) PIPER CLARK ([id number]) 1955 Date Time Provider Department 06/02/22 ORLANDO SIMPSON During your visit today, we recorded the following information about you: Orlando Simpson MA 06/02/2022 9:35 AM Signed Called patient to schedule her RHC with Dr. Newell. No answer, left VM. Orlando Simpson Clinical Slasher Hand [facility] [place] Allergies As of Date: 06/02/2022 (Not on File) Date Reviewed: Never Reviewed Reason for Visit: Care Coordination [0571] Problem List As Of Date: 06/02/2022 (None) Encounter Status:Closed by ORLANDO SIMPSON on 06/02/22 Normal [facility] CNPNon 05-18-2022 CNPN Telephone (PMNA11) PIPER CLARK ([id number]) 1955 F Date Time Provider Department 05/18/22 LORNE NEWELL PMNA11 During your visit today, we recorded the following information about you: Devonte Navas 05/18/2022 1:[address] Mitchell Brian contacted Mic Webber MD for a RHC. Dr. Webber does not perform RHC's and has deferred to Dr. Newell. I am requesting recent office notes from office: [phone] Devonte Navas 05/19/2022 8:56 AM Signed Uploaded outside medical records from Dr. Brian. Please allow time for document to appear in [employer]. Devonte Navas 05/19/2022 12:25 PM Signed Requested PFTs, echo report, and CT report from Dr. Brian. Devonte Navas 05/22/2022 2:55 PM Signed Uploaded additional records from Dr. Brian. Please allow time for document to appear in [employer]. Devonte Navas 05/26/2022 10:42 AM Signed Spoke with patient; she will call [phone] to get registered with [facility]. Allergies As of Date: 05/18/2022 (Not on File) Date Reviewed: Never Reviewed Reason for Visit: Request Outside Medical Records [3575] Received Outside Medical Records [3576] Problem List As Of Date: 05/18/2022 (None) Encounter Status:Closed by DEVONTE NAVAS on 05/18/22 Normal [facility] RIGHT HEART CATH O2 SATURATI ON & CARDIAC OUTPUT [facility] Vital Signs Date Time Vital Sign Value Performing Clinician Facility 05-06-2025 13:29-0400 Heart rate 88 /min Dr. Christy Perea MD Work Phone: 0(756)515-073534 [place] [address] 05-06-2025 13:29-0400 Respiratory rate 18 /min Dr. Christy Perea MD Work Phone: 4(268)271-500534 [place] [address] 05-06-2025 11:14-0400 Body height 157.[address] Christy Perea MD Work Phone: 2(224)997-922026 [place] [address] 05-06-2025 11:14-0400 Body mass index (BMI) [Ratio] 41.1 kg/m2 Dr. Christy Perea MD Work Phone: 3(680)872-131434 [place] [address] 05-06-2025 11:14-0400 Body temperature 98.4 [degF] Dr. Christy Perea MD Work Phone: 4(265)536-358046 [address] 05-06-2025 11:14-0400 Body weight [address] Christy Perea MD Work Phone: 9(412)093-325834 [place] [address] 05-06-2025 11:14-0400 Diastolic blood pressure 82 mm[Hg] Dr. Christy Perea MD Work Phone: 5(002)852-501634 [place] [address] 05-06-2025 11:14-0400 Inhaled oxygen flow rate 4 L/min Dr. Christy Perea MD Work Phone: [facility] 05-06-2025 11:14-0400 SaO2% (BldA) [Mass fraction] 94 % Dr. Christy Perea MD Work Phone: [facility] 05-06-2025 11:14-0400 Systolic blood pressure 144 mm[Hg] Dr. Christy Perea MD Work Phone: 4(258)622-468534 [place] [address] 05-06-2025 06:22-0400 Inhaled oxygen concentration 35 % Dr. Christy Perea MD Work Phone: [facility] 04-30-2025 12:28-0400 Body height 157.[address] Christy Perea MD Work Phone: [facility] 04-30-2025 12:28-0400 Body mass index (BMI) [Ratio] 43.3 kg/m2 Dr. Christy Perea MD Work Phone: 0(711)404-805134 [place] [address] 04-30-2025 12:28-0400 Body weight 107.[address] Christy Perea MD Work Phone: 3(693)351-506026 [place] [address] 04-30-2025 12:28-0400 Diastolic blood pressure 62 mm[Hg] Dr. Christy Perea MD Work Phone: 6(701)148-467026 [place] [address] 04-30-2025 12:28-0400 Heart rate 70 /min Dr. Christy Perea MD Work Phone: 1(126)173-627926 [place] [address] 04-30-2025 12:28-0400 Respiratory rate 18 /min Dr. Christy Perea MD Work Phone: 1(552)721-467646 [address] 04-30-2025 12:28-0400 Systolic blood pressure 100 mm[Hg] Dr. Christy Perea MD Work Phone: 4(896)010-398534 [place] [address] 04-10-2025 15:20-0400 Heart rate 70 /min Dr. Christy Perea MD Work Phone: 7(862)623-669034 [place] [address] 04-10-2025 15:20-0400 Inhaled oxygen concentration 30 % Dr. Christy Perea MD Work Phone: 1(696)130-704434 [place] [address] 04-10-2025 15:20-0400 Respiratory rate 19 /min Dr. Christy Perea MD Work Phone: 5(965)305-224934 [place] [address] 04-10-2025 15:20-0400 SaO2% (BldA) [Mass fraction] 97 % Dr. Christy Perea MD Work Phone: 6(222)926-671134 [place] [address] 04-10-2025 14:56-0400 Body temperature 98.1 [degF] Dr. Christy Perea MD Work Phone: [facility] 04-10-2025 14:56-0400 Diastolic blood pressure 80 mm[Hg] Dr. Christy Perea MD Work Phone: 2(095)330-030034 [place] [address] 04-10-2025 14:56-0400 Inhaled oxygen flow rate 4 L/min Dr. Christy Perea MD Work Phone: 1(595)326-219226 [place] [address] 04-10-2025 14:56-0400 Systolic blood pressure 140 mm[Hg] Dr. Christy Perea MD Work Phone: 1(556)674-701526 [place] [address] 04-10-2025 04:23-0400 Body mass index (BMI) [Ratio] 45.3 kg/m2 Dr. Christy Perea MD Work Phone: 9(289)502-894226 [place] [address] 04-10-2025 04:23-0400 Body weight 112.[address] Christy Perea MD Work Phone: 5(047)575-048926 [place] [address] 04-09-2025 15:15-0400 Body height 157.[address] Christy Perea MD Work Phone: 8(131)946-867526 [place] [address] 04-08-2025 11:16-0400 Inhaled oxygen flow rate 4 L/min Dr. Christy Perea MD Work Phone: 6(817)041-009526 [place] [address] 04-08-2025 11:16-0400 SaO2% (BldA) [Mass fraction] 100 % Dr. Christy Perea MD Work Phone: 1(514)899-263126 [place] [address] 04-08-2025 10:49-0400 Heart rate 89 /min Dr. Christy Perea MD Work Phone: 9(923)090-028726 [place] [address] 04-08-2025 10:49-0400 Respiratory rate 20 /min Dr. Christy Perea MD Work Phone: 2(503)690-824126 [place] [address] 04-08-2025 09:16-0400 Body temperature 98 [degF] Dr. Christy Perea MD Work Phone: 4(475)719-277534 [place] [address] 04-08-2025 09:16-0400 Diastolic blood pressure 74 mm[Hg] Dr. Christy Perea MD Work Phone: [facility] 04-08-2025 09:16-0400 Systolic blood pressure 126 mm[Hg] Dr. Christy Perea MD Work Phone: [facility] 04-08-2025 05:50-0400 Body mass index (BMI) [Ratio] 45.3 kg/m2 Dr. Christy Perea MD Work Phone: [facility] 04-08-2025 05:50-0400 Body weight 112.[address] Christy Perea MD Work Phone: 7(810)817-373834 [place] [address] 04-08-2025 04:02-0400 Inhaled oxygen concentration 35 % Dr. Christy Perea MD Work Phone: 5(347)963-608934 [place] [address] 04-06-2025 10:07-0400 Body height 157.[address] Christy Perea MD Work Phone: 8(877)613-768834 [place] [address] 04-05-2025 23:41-0400 Body temperature 98.1 [degF] Dr. Christy Perea MD Work Phone: 2(293)244-441134 [place] [address] 04-05-2025 23:41-0400 Diastolic blood pressure 63 mm[Hg] Dr. Christy Perea MD Work Phone: [facility] 04-05-2025 23:41-0400 Heart rate 92 /min Dr. Christy Perea MD Work Phone: [facility] 04-05-2025 23:41-0400 Respiratory rate 16 /min Dr. Christy Perea MD Work Phone: [facility] 04-05-2025 23:41-0400 SaO2% (BldA) [Mass fraction] 98 % Dr. Christy Perea MD Work Phone: [facility] 04-05-2025 23:41-0400 Systolic blood pressure 110 mm[Hg] Dr. Christy Perea MD Work Phone: [facility] 04-05-2025 22:54-0400 Inhaled oxygen concentration 50 % Dr. Christy Perea MD Work Phone: [facility] 04-05-2025 22:54-0400 Inhaled oxygen flow rate 50 L/min Dr. Christy Perea MD Work Phone: [facility] 04-05-2025 20:27-0400 Body height 154.[address] Christy Perea MD Work Phone: 1(676)443-598334 [place] [address] 04-05-2025 20:27-0400 Body mass index (BMI) [Ratio] 49 kg/m2 Dr. Christy Perea MD Work Phone: 5(665)988-841026 [place] [address] 04-05-2025 20:27-0400 Body weight 117.[address] Christy Perea MD Work Phone: 0(606)216-457134 [place] [address] 03-25-2025 14:24-0400 Body temperature 98.2 [degF] Dr. Christy Perea MD Work Phone: 3(030)946-849134 [place] [address] 03-25-2025 14:24-0400 Diastolic blood pressure 69 mm[Hg] Dr. Christy Perea MD Work Phone: 6(755)299-104934 [place] [address] 03-25-2025 14:24-0400 Heart rate 71 /min Dr. Christy Perea MD Work Phone: [facility] 03-25-2025 14:24-0400 Respiratory rate 15 /min Dr. Christy Perea MD Work Phone: [facility] 03-25-2025 14:24-0400 SaO2% (BldA) [Mass fraction] 97 % Dr. Christy Perea MD Work Phone: [facility] 03-25-2025 14:24-0400 Systolic blood pressure 115 mm[Hg] Dr. Christy Perea MD Work Phone: [facility] 03-25-2025 11:48-0400 Inhaled oxygen flow rate 4 L/min Dr. Christy Perea MD Work Phone: [facility] 03-25-2025 11:43-0400 Body height 154.[address] Christy Perea MD Work Phone: [facility] 03-25-2025 11:43-0400 Body mass index (BMI) [Ratio] 46.4 kg/m2 Dr. Christy Perea MD Work Phone: [facility] 03-25-2025 11:43-0400 Body weight 111.[address] Christy Perea MD Work Phone: 5(817)485-808634 [place] [address] 03-24-2025 14:32-0400 Body temperature 97.8 [degF] Dr. Christy Perea MD Work Phone: 1(152)834-386926 [place] [address] 03-24-2025 14:32-0400 Diastolic blood pressure 72 mm[Hg] Dr. Christy Perea MD Work Phone: 2(512)908-607834 [place] [address] 03-24-2025 14:32-0400 Heart rate 78 /min Dr. Christy Perea MD Work Phone: 0(478)167-434134 [place] [address] 03-24-2025 14:32-0400 Inhaled oxygen flow rate 4 L/min Dr. Christy Perea MD Work Phone: 3(823)845-469934 [place] [address] 03-24-2025 14:32-0400 Respiratory rate 20 /min Dr. Christy Perea MD Work Phone: 5(676)442-744346 [address] 03-24-2025 14:32-0400 SaO2% (BldA) [Mass fraction] 98 % Dr. Christy Perea MD Work Phone: [facility] 03-24-2025 14:32-0400 Systolic blood pressure 136 mm[Hg] Dr. Christy Perea MD Work Phone: 1(972)148-393034 [place] [address] 03-24-2025 04:43-0400 Body mass index (BMI) [Ratio] 46.5 kg/m2 Dr. Christy Perea MD Work Phone: [facility] 03-24-2025 04:43-0400 Body weight 115.[address] Christy Perea MD Work Phone: 4(504)899-233446 [address] 03-20-2025 12:54-0400 Body height 157.[address] Christy Perea MD Work Phone: 8(358)493-465826 [place] [address] 10-28-2024 08:50-0500 Body height 157.[address] Christy Perea MD Work Phone: 1(945)883-596026 [place] [address] 10-28-2024 08:50-0500 Body mass index (BMI) [Ratio] 43.3 kg/m2 Dr. Christy Perea MD Work Phone: 2(810)089-676526 [place] [address] 10-28-2024 08:50-0500 Body weight 107.[address] Christy Perea MD Work Phone: 9(693)964-532026 [place] [address] 10-28-2024 08:50-0500 Diastolic blood pressure 61 mm[Hg] Dr. Christy Perea MD Work Phone: 7(081)161-340226 [place] [address] 10-28-2024 08:50-0500 Heart rate 68 /min Dr. Christy Perea MD Work Phone: 8(470)995-088026 [place] [address] 10-28-2024 08:50-0500 Respiratory rate 20 /min Dr. Christy Perea MD Work Phone: 7(190)731-711526 [place] [address] 10-28-2024 08:50-0500 Systolic blood pressure 117 mm[Hg] Dr. Christy Perea MD Work Phone: 9(116)603-873626 [place] [address] 02-25-2024 00:20-0400 Body mass index (BMI) [Ratio] 40.8 kg/m2 Dr. Christy Perea Work Phone: 5(097)395-256434 [place] [address] 02-25-2024 00:20-0400 Body weight 101.[address] Christy Perea Work Phone: 4(102)855-938126 [place] [address] 02-19-2024 10:25-0400 Body height 157.[address] Christy Perea Work Phone: 1(981)278-495426 [place] [address] 02-19-2024 10:25-0400 Body mass index (BMI) [Ratio] 40.6 kg/m2 Dr. Christy Perea Work Phone: [facility] 02-19-2024 10:25-0400 Body weight 100.[address] Christy Perea Work Phone: [facility] 02-19-2024 10:25-0400 Diastolic blood pressure 93 mm[Hg] Dr. Christy Preea Work Phone: [facility] 02-19-2024 10:25-0400 Heart rate 101 /min Dr. Christy Perea Work Phone: [facility] 02-19-2024 10:25-0400 Respiratory rate 18 /min Dr. Christy Perea Work Phone: [facility] 02-19-2024 10:25-0400 Systolic blood pressure 157 mm[Hg] Dr. Christy Perea Work Phone: 8(338)526-832334 [place] [address] 01-25-2024 00:24-0500 Body mass index (BMI) [Ratio] 40.8 kg/m2 Dr. Christy Perea Work Phone: [facility] 01-25-2024 00:24-0500 Body weight 101.[address] Christy Perea Work Phone: [facility] 01-21-2024 17:17-0500 Body temperature 98 [degF] Dr. Christy Perea Work Phone: 2(945)898-378134 [place] [address] 01-21-2024 17:17-0500 Diastolic blood pressure 71 mm[Hg] Dr. Christy Perea Work Phone: [facility] 01-21-2024 17:17-0500 Heart rate 72 /min Dr. Christy Perea Work Phone: [facility] 01-21-2024 17:17-0500 Respiratory rate 12 /min Dr. Christy Perea Work Phone: [facility] 01-21-2024 17:17-0500 SaO2% (BldA) [Mass fraction] 98 % Dr. Christy Perea Work Phone: [facility] 01-21-2024 17:17-0500 Systolic blood pressure 148 mm[Hg] Dr. Christy Perea Work Phone: [facility] 01-21-2024 14:56-0500 Body mass index (BMI) [Ratio] 41 kg/m2 Dr. Christy Perea Work Phone: [facility] 01-21-2024 14:56-0500 Body weight 101.[address] Christy Perea Work Phone: [facility] 01-21-2024 14:01-0500 Inhaled oxygen flow rate 5 L/min Dr. Christy Perea Work Phone: [facility] 01-21-2024 13:38-0500 Body height 157.[address] Christy Perea Work Phone: [facility] 01-14-2024 10:08-0500 Body mass index (BMI) [Ratio] 40.8 kg/m2 Dr. Christy Perea Work Phone: [facility] 01-14-2024 10:08-0500 Body weight 101.[address] Christy Perea Work Phone: [facility] 12-18-2023 08:44-0500 Body mass index (BMI) [Ratio] 39.6 kg/m2 [facility] 12-03-2023 18:52-0500 Body mass index (BMI) [Ratio] 39.6 kg/m2 [facility] 11-15-2023 06:43-0500 Body height 157.48 cm [facility] 11-15-2023 06:43-0500 Body mass index (BMI) [Ratio] 39.6 kg/m2 [facility] 11-15-2023 06:43-0500 Body weight 98.42 kg [facility] 11-14-2023 14:51-0500 Diastolic blood pressure 84 mm[Hg] [facility] 11-14-2023 14:51-0500 Systolic blood pressure 160 mm[Hg] [facility] 11-14-2023 14:47-0500 Heart rate 83 /min [facility] 11-14-2023 14:47-0500 SaO2% (BldA) [Mass fraction] 89 % [facility] 07-10-2023 13:27-0400 Inhaled oxygen flow rate 2 L/min Dr. Christy Perea Work Phone: [facility] 07-10-2023 13:25-0400 Body temperature 98.2 [degF] Dr. Christy Perea Work Phone: [facility] 07-10-2023 13:25-0400 Diastolic blood pressure 60 mm[Hg] Dr. Christy Perea Work Phone: [facility] 07-10-2023 13:25-0400 Heart rate 86 /min Dr. Christy Perea Work Phone: [facility] 07-10-2023 13:25-0400 Respiratory rate 16 /min Dr. Christy Perea Work Phone: [facility] 07-10-2023 13:25-0400 SaO2% (BldA) [Mass fraction] 96 % Dr. Christy Perea Work Phone: [facility] 07-10-2023 13:25-0400 Systolic blood pressure 140 mm[Hg] Dr. Christy Perea Work Phone: [facility] 07-08-2023 18:52-0400 Body height 158.[address] Christy Perea Work Phone: [facility] 07-08-2023 18:52-0400 Body mass index (BMI) [Ratio] 39.9 kg/m2 Dr. Christy Perea Work Phone: [facility] 07-08-2023 18:52-0400 Body weight 100.[address] Christy Perea Work Phone: [facility] 09-28-2022 12:37-0400 Body height 160.02 cm [facility] Work Phone: 07-19-2022 16:04-0400 Body height 157.5 cm Pulm Rm Work Phone: [facility] 07-19-2022 16:04-0400 Body weight 88.2 kg Pulm Rm Work Phone: [facility] 03-31-2022 13:38-0400 Body temperature 97.4 [degF] Dr. Christy Perea Work Phone: [facility] Work Phone: 03-31-2022 13:38-0400 Diastolic blood pressure 74 mm[Hg] Dr. Christy Perea Work Phone: [facility] Work Phone: 03-31-2022 13:38-0400 Heart rate 106 /min Dr. Christy Perea Work Phone: [facility] Work Phone: 03-31-2022 13:38-0400 Respiratory rate 16 /min Dr. Christy Perea Work Phone: [facility] Work Phone: 03-31-2022 13:38-0400 SaO2% (BldA) [Mass fraction] 91 % Dr. Chritsy Perea Work Phone: [facility] Work Phone: 03-31-2022 13:38-0400 Systolic blood pressure 152 mm[Hg] Dr. Christy Perea Work Phone: [facility] Work Phone: Encounters Encounter Date Encounter Type Care Provider Facility Start: 05-06-2025 Evaluation and manag ement of inpatient Dr. Christy Perea MD Work Phone: [facility] Work Phone: Start: 05-06-2025 Dr. Vannesa Camejo DO -[facility] 2 Work Phone: Start: 05-04-2025 ambulatory Chandni Courtney Facility:[facility] Start: 04-30-2025 End: 04-30-2025 Dr. Chandni Courtney MD -[facility] Work Phone: Start: 04-30-2025 End: 04-30-2025 ambulatory Chandni Sherwin Facility:[facility] Start: 04-30-2025 Dr. Mitchell florian MD -Pulmonary Services/Neurology Work Phone: Start: 04-30-2025 ambulatory Mitchell Chavez ty:[facility] Start: 04-21-2025 End: 04-21-[address] Christy Perea MD Work Phone: [facility] Work Phone: Start: 04-21-2025 End: 04-21-2025 Patient encounter procedure Becca Dillard MEDICAL ASSISTANT CARDIOLOGY-C -Laboratory Work Phone: Start: 04-21-2025 End: 04-21-2025 Becca Dillard MEDICAL ASSISTANT CARDIOLOGY-C -Laboratory Work Phone: Start: 04-21-2025 End: 04-21-2025 ambulatory Becca Dillard MEDICAL ASSISTANT CARDIOLOGY Facility:[facility] Start: 04-10-2025 Non-patient / Non-visit Dr. Lindsay Galvan MD -[facility] Work Phone: Start: 04-10-2025 Dr. Geoff Galvan MD -[facility] Work Phone: Start: 04-09-2025 Non-patient / Non-visit Dr. Ken Vieyra MD -[facility] Work Phone: Start: 04-09-2025 Dr. Ken Vieyra MD -[facility] Work Phone: Start: 04-08-2025 Non-patient / Non-visit Dr. Ken Vieyra MD -[facility] Work Phone: Start: 04-08-2025 Dr. Ken Vieyra MD -[facility] Work Phone: Start: 04-07-2025 Non-patient / Non-visit Dr. Ken Vieyra MD -[facility] Work Phone: Start: 04-07-2025 Dr. Ken Vieyra MD -[facility] Work Phone: Start: 04-06-2025 Non-patient / Non-visit Dr. Ken Vieyra MD -[facility] Work Phone: Start: 04-06-2025 Dr. Ken Vieyra MD -[facility] Work Phone: Start: 04-05-2025 ambulatory Ken Vieyra Facility: [facility] Start: 04-05-2025 End: 04-10-2025 Dr. Geoff Galvan MD -Progressive Care Unit Work Phone: Start: 04-05-2025 End: 04-10-2025 Evaluation and management of inpatient Dr. Orlando Bolden DO -Progressive Care Unit Work Phone: Start: 04-03-2025 End: 04-03-[address] Christy Perea MD Work Phone: [facility] Work Phone: Start: 04-03-2025 End: 04-03-2025 Patient encounter procedure Becca Dillard MEDICAL ASSISTANT CARDIOLOGY-C -Laboratory Work Phone: Start: 04-03-2025 End: 04-03-2025 Becca Dillard MEDICAL ASSISTANT CARDIOLOGY-C -Laboratory Work Phone: Start: 04-03-2025 End: 04-03-2025 ambulatory [facility] Facility:[facility] Start: 03-31-2025 End: 03-31-[address] Christy Perea MD Work Phone: [facility] Work Phone: Start: 03-31-2025 End: 03-31-[address] Genia Chappell MD -Laboratory, [facility] Start: 03-31-2025 End: 03-31-2025 Dr. Genia Chappell MD -Laboratory [facility] Start: 03-30-2025 End: 03-31-[address] Christy Perea MD Work Phone: [facility] Work Phone: Start: 03-30-2025 End: 03-30-[address] Genia Chappell MD -Radiology, [facility] Work Phone: Start: 03-30-2025 End: 03-30-2025 Dr. Genia Chappell MD -Radiology [facility] Work Phone: Start: 03-30-2025 End: 03-30-2025 ambulatory [facility] Facility:[facility] Start: 03-25-2025 End: 03-25-2025 [facility] Start: 03-25-2025 End: 03-25-2025 Emergency department patient visit Dr. Jose Armando Willoughby -Emergency Department Work Phone: Start: 03-24-2025 Non-patient / Non-visit Dr. Carol Ann Lizarraga MD -[facility] Work Phone: Start: 03-24-2025 Dr. Cindi juarez MD -[facility] Work Phone: Start: 03-23-2025 Non-patient / Non-visit Dr. Carol Ann Lizarraga MD -[facility] Work Phone: Start: 03-23-2025 Dr. Cindi juarez MD -[facility] Work Phone: Start: 03-22-2025 Non-patient / Non-visit Dr. Fannie Rider [facility] Work Phone: Start: 03-22-2025 Dr. Chai smith [facility] Work Phone: Start: 03-21-2025 Non-patient / Non-visit Dr. Fannie Rider [facility] Work Phone: Start: 03-21-2025 Dr. Chai smith [facility] Work Phone: Start: 03-20-2025 Non-patient / Non-visit Dr. Fannie Rider [facility] Work Phone: Start: 03-20-2025 Dr. Chai smith [facility] Work Phone: Start: 03-20-2025 ambulatory Chandni Courtney Facility:[facility] Start: 03-20-2025 Non-patient / Non-visit Dr. Chandni solitario MD -[facility] Start: 03-20-2025 Dr. Chandni Courtney MD -[facility] Start: 03-19-2025 ambulatory Orlando Hidalgoi ty:[facility] Start: 03-19-2025 End: 03-24-2025 Evaluation and management of inpatient Dr. Cindi Lizarraga MD -Progressive Care Unit Work Phone: Start: 03-19-2025 End: 03-24-2025 Dr. Cindi Lizarraga MD -Progressive Care Unit Work Phone: Start: 03-18-2025 End: 03-18-2025 Patient encounter procedure Becca Dillard MEDICAL ASSISTANT CARDIOLOGY-C -Laboratory Work Phone: Start: 03-18-2025 End: 03-18-2025 Becca Dillard MEDICAL ASSISTANT CARDIOLOGY-C -Laboratory Work Phone: Start: 03-18-2025 End: 03-18-2025 ambulatory Becca Dillard NP Facility:[facility] Start: 02-05-2025 End: 02-05-[address] Christy Perea MD Work Phone: [facility] Work Phone: Start: 02-05-2025 End: 02-05-[address] Christy Perea MD -Laboratory, [facility] Start: 02-05-2025 End: 02-05-2025 Dr. Christy Perea MD -Laboratory [facility] Start: 02-05-2025 End: 02-05-2025 ambulatory Christy Perea Facility:[facility] Start: 12-25-2024 End: 12-25-2024 Patient encounter procedure Azael Ashton MEDICAL ASSISTANT CARDIOLOGY-C -Laboratory, Specimen Work Phone: Start: 12-25-2024 End: 12-25-2024 ambulatory Azael Sernaow MEDICAL ASSISTANT CARDIOLOGY Facility:[facility] Start: 12-04-2024 End: 12-04-[address] Brennan Ansari MD -[facility] Start: 12-04-2024 End: 12-04-2024 ambulatory Christy S Jolliff Facility:[facility] Start: 11-05-2024 End: 11-05-2024 ambulatory Christy S Jolliff Facility:[facility] Start: 11-05-2024 End: 11-05-[address] Curry Taylor MD -Physical Therapy Work Phone: Start: 10-28-2024 End: 10-28-[address] Chandni Courtney MD -[facility] Work Phone: Start: 10-28-2024 End: 10-28-2024 ambulatory Chandni Sherwin Facility:[facility] Start: 10-01-2024 End: 10-02-2024 ambulatory Christy S Jolliff Facility:[facility] Start: 09-30-2024 End: 09-30-2024 ambulatory Christy S Jolliff Facility:[facility] Start: 09-08-2024 End: 09-08-2024 ambulatory Mitchell V Sibilia Facility:[facility] Start: 09-01-2024 End: 09-01-2024 ambulatory Christy S Jolliff Facility:[facility] Start: 08-18-2024 End: 08-19-2024 ambulatory Christy S Jolliff Facility:[facility] Start: 08-17-2024 End: 08-17-2024 Emergency department patient visit Christy S Jolliff Facility:[facility] Start: 05-16-2024 End: 05-16-2024 ambulatory Chandni Sherwin Facility:[facility] Start: 05-07-2024 End: 05-07-2024 ambulatory Chandni Sherwin Facility:[facility] Start: 03-31-2024 Non-patient / Non-visit Dr. Carol Perea Work Phone: [facility] Start: 03-28-2024 End: 03-28-[address] Christy Perea Work Phone: [facility] Work Phone: Start: 03-28-2024 End: 03-28-[address] Christy Perea Work Phone: [facility]-Laboratory Work Phone: Start: 03-21-2024 End: 03-25-[address] Christy Perea Work Phone: [facility] Work Phone: Start: 03-21-2024 End: 03-25-[address] Christy Perea Work Phone: [facility]-Pulmonary Rehab Work Phone: Start: 03-21-[address] Christy castro Work Phone: [facility]-Pulmonary Rehab Work Phone: Start: 03-20-2024 Non-patient / Non-visit Dr. Carol Perea Work Phone: [facility] Start: 03-20-2024 End: 03-20-[address] Christy Perea Work Phone: [facility] Work Phone: Start: 03-20-2024 End: 03-20-[address] Christy Perea Work Phone: [facility]-Cardiovascula r Services Work Phone: Start: 02-22-2024 End: 02-24-[address] Christy Perea Work Phone: [facility] Work Phone: Start: 02-22-2024 End: 02-24-[address] Christy Perea Work Phone: [facility]-Pulmonary Rehab Work Phone: Start: 02-19-2024 End: 02-19-[address] Christy Perea Work Phone: [facility] Work Phone: Start: 01-23-2024 End: 01-24-[address] Christy Perea Work Phone: [facility] Work Phone: Start: 01-23-2024 End: 01-24-[address] Christy Perea Work Phone: [facility]-Pulmonary Rehab Work Phone: Start: 01-21-2024 End: 01-21-2024 Emergency department patient visit Dr. Christy Perea Work Phone: [facility]-Emergency Department Work Phone: Start: 12-26-2023 End: 12-26-2023 ambulatory [facility] Work Phone: Start: 12-26-2023 End: 12-26-2023 Discharged Recurring [facility]-Pulmonary Rehab Work Phone: Start: 12-17-2023 Registered Recurring [facility]-Pulmonary Rehab Work Phone: Start: 12-12-2023 End: 12-12-2023 ambulatory [facility] Work Phone: Start: 12-12-2023 End: 12-12-2023 Patient encounter procedure [facility]-Radiology, [facility] Work Phone: Start: 12-03-2023 Registered Recurring [facility]-Pulmonary Rehab Work Phone: Start: 11-29-2023 End: 11-29-2023 ambulatory [facility] Work Phone: Start: 11-29-2023 End: 11-29-2023 Patient encounter procedure [facility] Work Phone: Start: 11-15-2023 Non-patient / Non-visit Dr. Carol Perea Work Phone: [facility] Work Phone: Start: 11-14-2023 End: 11-14-2023 ambulatory [facility] Work Phone: Start: 11-14-2023 End: 11-14-2023 Patient encounter procedure [facility]-Pulmonary Rehab Work Phone: Start: 10-01-2023 End: 10-01-2023 Patient encounter procedure [facility]-Outpatient Breast Imaging Work Phone: Start: 09-06-2023 End: 09-06-[address] Christy Perea Work Phone: [facility] Work Phone: Start: 09-06-2023 End: 09-06-[address] Christy Perea Work Phone: [facility]-Cat Scan, [facility] Work Phone: Start: 07-10-2023 Non-patient / Non-visit Dr. Carol Perea Work Phone: [facility] Work Phone: Start: 07-09-2023 Non-patient / Non-visit Dr. Carol Perea Work Phone: [facility] Work Phone: Start: 07-08-2023 Non-patient / Non-visit Dr. Carol Perea Work Phone: [facility] Work Phone: Start: 07-08-2023 End: 07-10-2023 Evaluation and management of inpatient Dr. Christy Perea Work Phone: [facility]-Medical Surgical 3 Work Phone: Start: 09-28-2022 End: 09-28-2022 ambulatory [facility] Work Phone: Start: 09-28-2022 End: 09-28-2022 Patient encounter procedure [facility]-Outpatient Bone Densitometry Start: 07-20-2022 Telephone encounter Stephany Lind RN Pulmonary Medicine Comment on above: Separator Operator - O ther Start: 07-19-2022 ambulatory Lorne saenz MD Work Phone: Pulmonary Medicine Start: 07-19-2022 End: 07-19-2022 Patient encounter procedure Pulm Main [id number] Procedure Rm Work Phone: Pulmonary Medicine Comment on above: Stage 3 severe COPD by GOLD classification ([facility]) (Primary Dx) Start: 07-11-2022 Telephone encounter Orlando Simpson MA Pu lmonary Medicine Comment on above: Appointment Confirma tion Start: 06-30-2022 End: 06-30-2022 ambulatory Lorne Newell MD Work Phone: Pulmonary Medicine Comment on above: Stage 3 severe COPD by GOLD classification ([facility]); Abnormal echocardiogram Start: 06-30-2022 End: 06-30-2022 Telemedicine consultation with patient Lorne Newell MD Work Phone: [facility] Start: 06-27-2022 Chart abstracting Naa Croft APRN.BEVERAGE DISTILLER Work Phone: Pulmonary Medicine Comment on above: Abstract Start: 06-05-2022 ambulatory Orlando Simpson MA Pulmonary Medicine Comment on above: [facility] 07/19 at 4pm Start: 06-05-2022 E-mail encounter fro m caregiver Orlando Simpson MA [facility] Start: 06-05-2022 Telephone encounter Orlando Simpson MA Pu lmonary Medicine Comment on above: Care Coordination Start: 06-02-2022 Telephone encounter Orlando Simpson MA Pu lmonary Medicine Comment on above: Care Coordination Start: 05-19-2022 Orders Only Rachel Seaman APRN.CAD OPERATOR Work Phone: Pulmonary Medicine Comment on above: Other secondary pulm onary hypertension (HCC) Start: 05-18-2022 Telephone encounter Lorne Newell MD Work Phone: Pulmonary Medicine Comment on above: Request Outside [facility] Records Start: 03-31-2022 End: 03-31-[address] Christy Perea Work Phone: [facility] Start: 03-30-2022 Non-patient / Non-visit Dr. Carol Perea Work Phone: [facility] Start: 03-30-2022 End: 03-30-[address] Christy Perea Work Phone: [facility] Procedures Date Procedure Procedure Detail Performing Clinician Start: 05-06-2025 Blood count smear mc rscp w/mnl difrntl wbc count Dr. Christy Perea MD Work Phone: Start: 05-06-[address] Christy Perea MD Work Phone: Start: 05-06-2025 Mean corpuscular hem oglobin concentration determination Dr. Christy Perea MD Work Phone: Start: 05-06-2025 Nucleated red blood cell count procedure Dr. Christy Perea MD Work Phone: Start: 05-06-2025 Platelet mean volume determination Dr. Christy Perea MD Work Phone: Start: 05-06-2025 Serum inorganic phos phate measurement Dr. Christy Perea MD Work Phone: Start: 05-06-[address] Christy Perea MD Work Phone: Start: 05-06-2025 Carbon dioxide measu rement, partial pressure Dr. Christy Perea MD Work Phone: Start: 05-06-2025 Gases blood o2 satur ation only direct diallo Dr. Christy Perea MD Work Phone: Start: 05-06-2025 Measurement of parti al pressure of oxygen in blood Dr. Christy Perea MD Work Phone: Start: 05-06-[address] Christy Perea MD Work Phone: Start: 04-30-2025 Carbon dioxide measu rement, partial [...] Christy Perea MD Work Phone: Start: 04-10-2025 Nucleated red blood cell count procedure Dr. Christy Perea MD Work Phone: Start: 04-10-2025 Platelet mean volume determination Dr. hCristy Perea MD Work Phone: Start: 04-08-2025 Estimated [...] Work Phone: Start: 02-05-2025 Blood count smear mc rscp w/mnl difrntl [...] X-ray Dr. Ana Perea Work Phone: Start: 08-13-2023 Coronavirus COVID-[address] Christy Perea Work [...] Treatment Date Care Activity Detail Author Start: 05-07-2025 Serum inorganic phos phate measurement [facility] Start: 05-06-2025 Following clinical p athway protocol [facility] Start: 05-06-2025 Assessment of risk o f venous thromboembolism [facility] Start: 05-06-2025 Catheterization of vein [facility] Start: 05-06-2025 Incentive spirometry [facility] Start: 05-06-2025 Insertion of cathete r into peripheral vein [facility] Start: 05-06-2025 Measuring intake and output [facility] Start: 05-06-2025 Oxygen therapy [facility] Start: 05-06-2025 Providing care accor ding to standard [facility] Start: 05-06-2025 Provision of activit y privileges [facility] Start: 05-06-2025 Referral to occupati onal therapist [facility] Start: 05-06-2025 Referral to service [facility] Start: 05-06-2025 [facility] Start: 05-06-2025 Continuous pulse oximetry [facility] Start: 05-06-2025 End: 05-06-2025 Hospital admission, emergency, from emergency room, medical nature [facility] Start: 05-06-2025 Verification routine [facility] Start: 05-06-2025 Admission procedure [facility] Start: 05-06-2025 Dual pressure sponta neous ventilation support [facility] Start: 04-30-2025 [facility] Start: 04-10-2025 Patient discharge [facility] Start: 04-09-2025 Provision of activit y privileges [facility] Start: 04-08-2025 Referral to service [facility] Start: 04-07-2025 [facility] Start: 04-06-2025 End: 04-07-2025 [facility] Start: 04-06-2025 Care regimes management [facility] Start: 04-06-2025 Notification of physician [facility] Start: 04-06-2025 Consultation [facility] Start: 04-06-2025 Continuous pulse oximetry [facility] Start: 04-06-2025 Following clinical p athway protocol [facility] Start: 04-06-2025 Assessment of risk o f venous thromboembolism [facility] Start: 04-06-2025 Catheterization of vein [facility] Start: 04-06-2025 Insertion of cathete r into peripheral vein [facility] Start: 04-06-2025 Measuring intake and output [facility] Start: 04-06-2025 Oxygen therapy [facility] Start: 04-06-2025 Patient referral to dietitian [facility] Start: 04-06-2025 Providing care accor ding to standard [facility] Start: 04-06-2025 Provision of activit y privileges [facility] Start: 04-06-2025 Referral to occupati onal therapist [facility] Start: 04-06-2025 Referral to service [facility] Start: 04-06-2025 [facility] Start: 04-06-2025 Dual pressure sponta neous ventilation support [facility] Start: 04-06-2025 Inhalation therapy procedure [facility] Start: 04-05-2025 Verification routine [facility] Start: 04-05-2025 Admission procedure [facility] Start: 04-05-2025 CT of chest, abdomen and pelvis without contrast CT Chest, Abd, Pelvis [facility] Start: 04-05-2025 Hospital admission, emergency, from emergency room, medical nature [facility] Start: 04-05-2025 [facility] Start: 04-05-2025 End: 04-06-2025 [facility] Start: 04-05-2025 Bacteria identified in Blood by Culture Blood Culture [facility] Start: 04-05-2025 Blood culture Blood Culture [facility] Start: 04-05-2025 Continuous positive airway pressure ventilation treatment [facility] Start: 03-25-2025 [facility] Start: 03-24-2025 Patient discharge [facility] Start: 03-23-2025 Respiratory microbia l culture Respiratory Culture [facility] Start: 03-20-2025 Referral to service [facility] Start: 03-20-2025 Inhalation therapy procedure [facility] Start: 03-19-2025 End: 03-20-2025 [facility] Start: 03-19-2025 Following clinical p athway protocol [facility] Start: 03-19-2025 Assessment of risk o f venous thromboembolism [facility] Start: 03-19-2025 Catheterization of vein [facility] Start: 03-19-2025 Continuous positive airway pressure ventilation treatment [facility] Start: 03-19-2025 Insertion of cathete r into peripheral vein [facility] Start: 03-19-2025 Measuring intake and output [facility] Start: 03-19-2025 Oxygen therapy [facility] Start: 03-19-2025 Providing care accor ding to standard [facility] Start: 03-19-2025 Provision of activit y privileges [facility] Start: 03-19-2025 Referral to occupati onal therapist [facility] Start: 03-19-2025 Referral to service [facility] Start: 03-19-2025 Verification routine [facility] Start: 03-19-2025 Admission procedure [facility] Start: 03-19-2025 Patient referral to dietitian [facility] Start: 01-21-2024 [facility] Start: 01-21-2024 [facility] Start: 07-10-2023 Patient discharge [facility] Start: 07-08-2023 End: 07-09-2023 [facility] Start: 07-08-2023 Ambulation without limitation [facility] Start: 07-08-2023 Assessment of risk o f venous thromboembolism [facility] Start: 07-08-2023 Incentive spirometry [facility] Start: 07-08-2023 Inhalation therapy procedure [facility] Start: 07-08-2023 Insertion of cathete r into peripheral vein [facility] Start: 07-08-2023 Providing care accor ding to standard [facility] Start: 07-08-2023 Oxygen therapy [facility] Start: 07-08-2023 Following clinical p athway protocol [facility] Start: 07-08-2023 Verification routine [facility] Start: 07-08-2023 Admission procedure [facility] Start: 07-08-2023 Respiratory microbia l culture Respiratory Culture [facility] Start: 07-27-2022 Influenza vaccination INFLUENZA (#1) [facility] Start: 11-26-2021 ADVANCE DIRECTIVE DISCUSSION ADVANCE DIRECTIVE DISCUSSION [facility] Start: 2018 BONE DENSITY BONE DENSITY [facility] Start: 2018 PNEUMOCOCCAL: 65+ (1 - PCV) PNEUMOCOCCAL: 65+ (1 - PCV) [facility] Start: 2003 Influenza vaccination LUNG CANCER SC REENING [facility] Start: 2003 SHINGRIX VACCINE (1 of 2) GRIFFIN GRIX VACCINE (1 of 2) [facility] Start: 1998 COLOGUARD (FIT-DNA) COLOGUARD (FIT-D NA) [facility] Start: 1998 Colonoscopy COLONOSCOPY [facility] Start: 1998 COLORECTAL CANCER SCREENING COLORECTAL CANCER SCREENING [facility] Start: [address] COLONOGRAPHY [facility] Start: 1998 DIABETES SCREEN DIABETES SCREEN [facility] Start: 1998 FECAL OCCULT BLOOD FECAL OCCULT BLOO D [facility] Start: 1998 LIPID SCREEN LIPID SCREEN [facility] Start: 1998 SIGMOIDOSCOPY SIGMOIDOSCOPY [facility] Start: 1993 Mammography MAMMOGRAM [facility] Start: 1983 Zoledronic acid therapy ALPHA- 1 ANTITRYPSIN DEFICIENCY SCREENING [facility] Start: 1972 Urine microalbumin profile DTAP,TDAP ,TD (1 - Tdap) [facility] Start: 1971 ANNUAL PCP TEAM BUSINESS PROCESS ANALYST FAVIAN DISEASE VISIT ANNUAL PCP TEAM CHRONIC DISEASE VISIT [facility] Start: 1971 HEPATITIS C SCREENING HEPATITIS C SC REENING [facility] Start: 1971 SPIROMETRY SPIROMETRY [facility] Start: 1965 Adult depression scr eening assessment DEPRESSION SCREENING [facility] Start: 1959 PNEUMOCOCCAL: 65+ (1 - PCV) PNEUMOCOCCAL: 65+ (1 - PCV) [facility] Start: 02-09-1956 COVID-19 VACCINE (#1) COVID-19 VACCI NE (#1) [facility] Alanine aminotransfe rase [Enzymatic activity/volume] in Serum or Plasma [facility] Albumin [Mass/volume ] in Serum or Plasma [facility] Alkaline phosphatase [Enzymatic activity/volume] in Serum or Plasma [facility] Anion gap in Serum o r Plasma [facility] Anion gap in Serum o r Plasma [facility] Basic metabolic 2008 panel with ionized calcium - Serum or Plasma [facility] Bilirubin measuremen t, urine [facility] Bilirubin, total measurement [facility] BUN/Creatinine ratio [facility] BUN/Creatinine ratio [facility] Calcium [Mass/volume ] in Serum or Plasma [facility] Calcium [Mass/volume ] in Serum or Plasma [facility] Carbon dioxide, tota l [Moles/volume] in Central venous blood [facility] Carbon dioxide, tota l [Moles/volume] in Central venous blood [facility] Creatinine [Mass/vol ume] in Serum or Plasma [facility] Creatinine [Mass/vol ume] in Serum or Plasma [facility] Digoxin [Mass/volume ] in Serum or Plasma [facility] Erythrocyte mean corpuscular volume determination [facility] Erythrocyte mean corpuscular volume determination [facility] Erythrocyte mean corpuscular volume determination [facility] Erythrocyte mean corpuscular volume determination [facility] Erythrocyte mean corpuscular volume determination [facility] Glucose [Mass/volume ] in Serum or Plasma [facility] Glucose [Mass/volume ] in Serum or Plasma [facility] Hematocrit [Volume Fraction] of Blood [facility] Hematocrit [Volume Fraction] of Blood [facility] Hematocrit [Volume Fraction] of Blood [facility] Hematocrit [Volume Fraction] of Blood [facility] Hematocrit [Volume Fraction] of Blood [facility] Hemoglobin [Mass/vol ume] in Blood [facility] Hemoglobin [Mass/vol ume] in Blood [facility] Hemoglobin [Mass/vol ume] in Blood [facility] Hemoglobin [Mass/vol ume] in Blood [facility] Hemoglobin [Mass/vol ume] in Blood [facility] Hemoglobin [Presence ] in Urine [facility] Leukocytes [#/volume ] in Blood [facility] Leukocytes [#/volume ] in Blood [facility] Leukocytes [#/volume ] in Blood [facility] Leukocytes [#/volume ] in Blood [facility] Leukocytes [#/volume ] in Blood [facility] Magnesium measurement [facility] Mean corpuscular hemoglobin concentration determination [facility] Mean corpuscular hemoglobin concentration determination [facility] Mean corpuscular hemoglobin concentration determination [facility] Mean corpuscular hemoglobin concentration determination [facility] Mean corpuscular hemoglobin concentration determination [facility] Mean corpuscular hemoglobin determination [facility] Mean corpuscular hemoglobin determination [facility] Mean corpuscular hemoglobin determination [facility] Mean corpuscular hemoglobin determination [facility] Mean corpuscular hemoglobin determination [facility] Measurement of keton es in urine using dipstick [facility] Measurement of renal function [facility] Measurement of renal function [facility] Microscopic urinalysis [facility] Neutrophil count [facility] Neutrophil count [facility] Neutrophil count [facility] Neutrophil count [facility] Neutrophil count [facility] Neutrophil percent differential count [facility] Neutrophil percent differential count [facility] Neutrophil percent differential count [facility] Neutrophil percent differential count [facility] Neutrophil percent differential count [facility] NM Heart Views W str ess and W radionuclide IV [facility] Patient Education [facility] Work Phone: Patient referral [facility] Work Phone: pH of Urine [facility] Platelets [#/volume] in Blood [facility] Platelets [#/volume] in Blood [facility] Platelets [#/volume] in Blood [facility] Platelets [#/volume] in Blood [facility] Platelets [#/volume] in Blood [facility] Potassium measurement [facility] Potassium measurement [facility] End: 06-18-2023 Pulmonary ventilation & perfusion imaging NM LUNG VENT / PERF VQ Radiology Routine Other secondary pulmonary hypertension (HCC) 1 Occurrences starting 05/19/2022 until 06/18/2023 [facility] Work Phone: Comment on above: 1 Occurrences starti ng 05/19/2022 until 06/18/2023 Red blood cell count [facility] Red blood cell count [facility] Red blood cell count [facility] Red blood cell count [facility] Red blood cell count [facility] Red cell distributio n width determination [facility] Red cell distributio n width determination [facility] Red cell distributio n width determination [facility] Red cell distributio n width determination [facility] Red cell distributio n width determination [facility] Serum chloride measurement [facility] Serum chloride measurement [facility] Sodium measurement [facility] Sodium measurement [facility] Specific gravity of Urine [facility] Total protein measurement [facility] Troponin T.cardiac [Mass/volume] in Serum or Plasma by High sensitivity method [facility] Urea nitrogen [Mass/volume] in Serum or Plasma [facility] Urea nitrogen [Mass/volume] in Serum or Plasma [facility] Urine blood test [facility] Urine dipstick for glucose [facility] [facility] Urine dipstick for leukocyte esterase [facility] Urine dipstick for nitrite [facility] Urine dipstick for protein [facility] Urine examination [facility] Urine microscopy: epithelial cells [facility] Urine Microscopy: wh ite cells [facility] Urobilinogen [Presen ce] in Urine [facility] US Heart [facility] XR ARTERY CATHETER ( POC) FOR REYNALDO USE ONLY XR ARTERY CATHETER (POC) FOR REYNALDO USE ONLY Imaging Procedures Routine Stage 3 severe COPD by GOLD classification (HCC) Ordered: 07/19/2022 [facility] Work Phone: Comment on above: Ordered: 07/19/2022 [facility] Immunizations Immunization Date Immunization Notes Care Provider Feliberto doty 01-24-2021 COVID-19 vaccine, fu ll dose (MODERNA) Naa Croft [employer]OKIE [employer]IVER[employer] Work Phone: [facility] 12-27-2020 COVID-19 vaccine, fu ll dose (MODERNA) 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 Christy Perea Work Phone: [facility] Payers Date Payer Category Payer Self-pay [id number] 2024 Private Health Insurance [facility] [id number] 2021 Medicare AETNA MEDICARE A ETNA MEDICARE PPO [id number] 2021-Present [phone] [address] [place] [address] PPO [id number] 2021 Medicare AETNA MEDICARE A ETNA MEDICARE PPO [id number] 2021-Present [phone] [address] [place] [address] PPO [id number] Unknown [id number] Unknown [id number] 2.16.840.1.766188.3.579.2.4 62 Unknown [id number] 2.16.840.1.811688.3.579.2.4 62 Unknown [id number] 2.16.840.1.072216.3.579.2.4 62 Unknown [id number] 2.16.840.1.420648.3.579.2.4 62 Unknown [id number] 2.16.840.1.172371.3.579.2.4 62 Unknown [id number] 2.16.840.1.801720.3.579.2.4 62 Unknown [id number] 2.16.840.1.770803.3.579.2.4 62 Unknown [id number] 2.16.840.1.988593.3.579.2.4 62 Unknown [id number] 2.16.840.1.068044.3.579.2.4 62 Unknown [id number] 2.16.840.1.613027.3.579.2.4 62 Unknown [id number] 2.16.840.1.826841.3.579.2.4 62 Unknown [id number] 2.16.840.1.317161.3.579.2.4 62 Unknown [id number] 2.16.840.1.823678.3.579.2.4 62 Unknown [id number] 2.16.840.1.409937.3.579.2.4 62 Unknown [id number] 2.16.840.1.717720.3.579.2.4 62 Unknown [id number] 2.16.840.1.605833.3.579.2.4 62 Unknown [id number] 2.16.840.1.664928.3.579.2.4 62 Unknown [id number] 2.16.840.1.341683.3.579.2.4 62 Unknown [id number] 2.16.840.1.896205.3.579.2.4 62 Unknown [id number] 2.16.840.1.030839.3.579.2.4 62 Unknown [id number] 2.16.840.1.550795.3.579.2.4 62 Unknown [id number] 2.16.840.1.866895.3.579.2.4 62 Unknown [id number] 2.16.840.1.674514.3.579.2.4 62 Unknown [id number] 2.16.840.1.924442.3.579.2.4 62 Unknown [id number] 2.16.840.1.676355.3.579.2.4 62 Unknown [id number] 2.16.840.1.086685.3.579.2.4 62 Unknown [id number] 2.16.840.1.718291.3.579.2.4 62 Unknown [id number] 2.16.840.1.138835.3.579.2.4 62 Unknown [id number] 2.16.840.1.199221.3.579.2.4 62 Unknown [id number] 2.16.840.1.359045.3.579.2.4 62 Unknown [id number] 2.16.840.1.096374.3.579.2.4 62 Unknown [id number] 2.16.840.1.955222.3.579.2.4 62 Unknown [id number] 2.16.840.1.477262.3.579.2.4 62 Unknown [id number] 2.16.840.1.637565.3.579.2.4 62 Unknown [id number] 2.16.840.1.935008.3.579.2.4 62 Unknown [id number] 2.16.840.1.036243.3.579.2.4 62 Unknown [id number] 2.16.840.1.451299.3.579.2.4 62 Unknown [id number] 2.16.840.1.326390.3.579.2.4 62 Unknown [id number] 2.16.840.1.855150.3.579.2.4 62 Unknown [id number] 2.16.840.1.685410.3.579.2.4 62 Unknown [id number] 2.16.840.1.519932.3.579.2.4 62 Social History Date Type Detail Facility Start: 03-31-2022 End: 02-19-2024 Tobacco smoking status NVIS Unknown if ever smoked [facility] Start: 1955 Sex Assigned At Female C [facility] Start: 1955 Sex Assigned At Not on file [facility] Start: 05-21-2022 End: 07-19-2022 Exposure to SARS-CoV-2 (event) Not sure [facility] Start: 05-27-2022 End: 06-06-2022 Exposure to SARS-CoV-2 (event) Unable to assess [facility] Start: 06-30-2022 End: 05-06-2025 Tobacco smoking status NVIS Ex-smoker [facility] Work Phone: End: 06-30-2013 History of tobacco use Current smoker [facility] Work Phone: Start: 06-30-2022 Cigarettes smoked current (pack per day) - Reported 1.5 [facility] Start: 06-30-2022 Alcohol intake Ex-drinker (finding) [facility] End: 06-30-2013 History of tobacco use Cigarette Smoker [facility] Work Phone: Start: 02-16-2025 End: 03-24-2025 Sex Female (finding) [facility] Goals Date Patient Goal Desired Activity /State Functional Status Date Assessment Result Facility 05-06-2025 Functional status With Assist of 2 [facility] Work Phone: 04-10-2025 Functional status Ambulates [facility] Work Phone: 04-08-2025 Functional status Ambulates [facility] Work Phone: 03-24-2025 Functional status Bathroom Privilege [facility] Work Phone: 07-10-2023 Functional status Ambulates [facility] Work Phone: Mental Status Date Assessment Result Facility 05-06-2025 Cognitive function Awake;Alert;A ppropriate;Follow s Commands [facility] Work Phone: 04-10-2025 Cognitive function Voice/Name [facility] Work Phone: 04-08-2025 Cognitive function Voice/Name [facility] Work Phone: 03-24-2025 Cognitive function Voice/Name [facility] Work Phone: 01-21-2024 Cognitive function Level Of Cons ciousness Awake;Alert;Appropriate [facility] Work Phone: 07-09-2023 Cognitive function Voice/Name [facility] Work Phone: Clinical Notes 05-18-2022 to 05-06-2025 Note Date & Type Note Facility 05-06-2025 Discharge summary Note Date/Time May 06, 2025 8:58am [facility] Medical Records Department [address] [place] [address] Emergency Department Summary 05/05/25 MR#: [id number] Acct: [id number] Name: PIPER CLARK Rep #:[id number] : 1955 69 From: Que Lopez PCP: Dr. Genia Chappell MD Status:REG ER Location: ED HPI History of Present Illness Chief Complaint: Abn Labs Informant: patient and spouse/S.O. Narrative Narrative: 69-year-old female presenting to the emergency room with weakness twitching confusion. Patient states that on Sunday she saw cardiology and she started newmedications over the weekend including metolazone and digoxin. Patient has a history of A-fib and is on Eliquis as well as metoprolol. States her symptoms were particularly noted on Sunday as well as today by home health. They attempted to contact cardiology was advised by nursing to come to the emergency room tonight. Patient felt globally weak getting into the car. She states thatshe does not feel that she is thinking clearly. Patient has a history of COPD is on home oxygen. She was recently admitted for COPD exacerbation as well as A-fib and lower extremity edema (HFpEF) [facility] Medical History Morbid obesity with BMI of 45.0-49.9, adult [...] 04/05/25 History aerosol inhaler Shortness Of Breath duloxetine 60 mg capsule,delayed 60 mg PO DAILY mood 1 11/30/23 04/05/25 History release apixaban 5 mg tablet (Eliquis) 5 mg PO BID blood thinn er #60 tabs 02/16/25 04/05/25 Rx fluticasone propionate 50 2 spray intranasal QHS nasal 03/19/25 04/04/25 History mcg/actuation nasal spray,suspension (24 Hour Allergy Relief) furosemide 40 mg tablet 40 mg PO BID water pill 02/2504/05/25 History levofloxacin 500 mg tablet 500 mg PO DAILY #7 tabs Unknown Rx potassium chloride 20 mEq 20 meq PO DAILY supplement # 90 tabs 04/24/25 Unknown Rx tablet,extended release dapagliflozin propanediol 10 mg 10 mg PO QDAY #90 tabs 04/30/25 Unknown Rx tablet (Farxiga) digoxin 250 mcg (0.25 mg) tablet 250 mcg PO QDAY #90 t abs 05/01/25 Unknown Rx metolazone 5 mg tablet 5 mg PO QDAY #90 tabs Unknown Rx metoprolol tartrate 50 mg tablet 50 mg PO BID 05/04/25 Unknown History Allergy/AdvReac Type Severity Reaction Status Date / Time feathers Allergy Intermediate Shortness Verified 05/05/25 21:57 of breath house dust Allergy Unknown Verified 05/05/25 21:57 mold Allergy Unknown Verified 05/05/25 21:57 Family History Mother CAD (coronary artery disease) [...] (~1994) History of appendectomy (~1994) Social History household members: spouse housing: house Smoking Status: Former smoker alcohol intake: current alcohol intake frequency: holidays/special occasions only substance use type: does not use caffeine: Yes Type: coffee Number of servings: 2 ROS ROS ED ROS Narrative Generalized weakness, confusion, twitching Constitutional Constitutional ED: Denies chills or weight loss Eyes Eyes: Denies change in vision or diplopia ENT ENT ED: Denies ear pain, rhinorrhea or sore throat Cardiovascular Cardiovascular: Denies chest pain, orthopnea, palpitations or racing heartbeat Respiratory/Chest Respiratory/Chest: Denies cough, dyspnea or orthopnea Gastrointestinal Gastrointestinal: Denies abdominal pain, diarrhea, nausea or vomiting Genitourinary Genitourinary ED: Denies dysuria, hematuria or urinary frequency Musculoskeletal Musculoskeletal: Denies arthralgias or myalgias Integumentary Denies abscess or rash Neurologic Neurologic: Denies headache(s) or weakness Psychiatric Psychiatric: Denies anxiety, depression, suicidal ideation or suicidal thoughts Endocrine Endocrinology: Denies polydipsia, polyphagia or polyuria Allergic/Immunologic Allergic/Immunologic ED: Denies mouth swelling, tongue swelling or urticaria EXAM Physical Exam Const Vital Signs: 05/05/25 21:58 05/05/25 23:59 05/06/25 00:01 Temperature 98.5 F Temperature Source Oral Pulse Rate 84 78 Respiratory Rate 18 14 Respiratory Effort Respiratory Pattern Blood Pressure 128/72 H 115/71 Blood Pressure Mean 90 85 Pulse Ox 97 100 Oxygen Delivery Method Nasal Cannula Room Air Oxygen Flow Rate (L/min) 4 Fraction of Inspired Oxygen (FIO2) 05/06/25 00:02 05/06/25 01:55 05/06/25 02:00 Temperature Temperature Source Pulse Rate 88 88 Respiratory Rate 17 18 Respiratory Effort Normal Non-Labored Respiratory Pattern Normal Blood Pressure 122/74 H Blood Pressure Mean 90 Pulse Ox 97 98 Oxygen Delivery Method Oxygen Flow Rate (L/min) Fraction of Inspired Oxygen (FIO2) 35 05/06/25 02:18 Temperature 98.6 F Temperature Source Pulse Rate 88 Respiratory Rate 18 Respiratory Effort Respiratory Pattern Blood Pressure 122/74 H Blood Pressure Mean 90 Pulse Ox 98 Oxygen Delivery Method Oxygen Flow Rate (L/min) Fraction of Inspired Oxygen (FIO2) Positive well nourished and well developed General Appearance ED: well developed HEENT Reports normocephalic, head/scalp atraumatic and moist mucous membranes Eyes PERRL and EOMs intact bilaterally Neck no lymphadenopathy, supple and no JVD Resp normal respiratory effort and clear to auscultation bilaterally Cardio no murmurs Rhythm: abnormal rhythm irregularly irregular GI normal to inspection, nondistended, normoactive bowel sounds and non-tender Palpation: soft Back/Spine no CVA tenderness and normal ROM Extremity normal to inspection General Extremety ED: Negative for edema General Extremity: Negative for edema Neuro oriented x3 and CN's II-XII intact bilaterally Sensorium / Orientation: alert Motor Exam: strength 5/5 throughout Psych mental status grossly normal Mood & Affect: Negative for depressed or tearful Skin no rashes or lesions noted and no wounds MDM MDM MDM Narrative Medical decision making narrative: Differential diagnosis includes dehydration acute kidney injury electrolyte abnormalities CO2 retention digoxin toxicity liver dysfunction UTI Basic blood work shows a white count of 13.2 hemoglobin 12.5. Sodium 136 potassium is 2.5 magnesium 2.1. CO2 on the BMP is greater than 50. BUN is 20 creatinine 0.94. Digoxin 1.15 normal liver function. ABG was obtained which demonstrates a pH of 7.475 PaCO2 of 73.8 PaO2 of 101.7 HCO3 of 54.4. EKG shows A-fib at a rate of 79 bpm. Wonder if the metolazone is controls her contraction alkalosis and hypokalemia. Patient received acetazolamide. She does wear BiPAP at night when sleeping. Patient received oral potassium as well as IV potassium. Case was discussed with the hospitalist into the hospital. She has not yet been able to give us a urine specimen. History & Record Review Discussion w/independent historian: Patient and Significant other Additional record(s) reviewed:: Prior inpatient record, Prior outpatient record,Prior ED visit and Prior labs Lab Data Attestation: I reviewed the patient's lab results. Labs: Laboratory Results - last 24 hr 05/05/25 05/06/25 23:51 02:39 WBC 13.2 H RBC 4.35 Hgb 12.5 Hct 40.1 MCV 92.2 MCH 28.7 MCHC 31.2 L RDW Std Deviation 51.0 H RDW Coeff of Beena 15.1 H Plt Count 477 H MPV 9.4 Immature Gran % (Auto) 0.900 Neut % (Auto) 77.7 H Lymph % (Auto) 9.7 L Navarro % (Auto) 11.1 H Eos % (Auto) 0.2 Baso % (Auto) 0.4 Absolute Neuts (auto) 10.3 H Absolute Lymphs (auto) 1.28 Nucleated RBC % 0 Sodium 136 135 Potassium 2.5 L* 2.6 L* Chloride 73 L* 75 L Carbon Dioxide > 50.0 H* 49.8 H* Anion Gap UNABLE TO CALCULATE L 10 BUN 20 H 19 Creatinine 0.94 0.86 Estim Creat Clear Calc 61.82 67.57 Est GFR (MDRD) Non-Af 65 72 BUN/Creatinine Ratio 21.6 H 22.0 H Glucose 146 H 117 H Calcium 10.2 9.9 Magnesium 2.1 Total Bilirubin 0.45 Direct Bilirubin 0.21 AST 21 ALT 21 Alkaline Phosphatase 76 Total Protein 6.9 Albumin 3.8 Globulin 3.1 Digoxin 1.15 ABG Data ABG results: ABG 05/06/25 01:33 Specimen Type ART Sample Site R Radial pH 7.48 H Bicarbonate Actual 54.4 H Total CO2 > 50 Base Excess > 30 H O2 Saturation 98 O2 % 4.0 ABG pCO2 73.8 H* ABG pO2 102 H Zechariah Test Positive O2 Delivery Device Cannula Vent Mode Not entered Crit Call To/Read Back Yes Blood Gas Notified Whom nella Blood Gas Notified Time 01:34:56 EKG Initial EKG: Attestation: I personally reviewed and interpreted this EKG as follows: Comments: Atrial fibrillation at a rate of 79 bpm. Management Discussion w/another healthcare provider: Hospitalist (Dr. Camejo) Discharge Plan Dx/Rx/DC Orders Clinical Impression: Acute hypokalemia, COPD (chronic obstructive pulmonary disease), Chronic respiratory failure with hypoxia and hypercapnia, Weakness, Acute confusion, Alkalosis Disposition Disposition: Acute Care Hospital [facility] What to do if you have Problems For any increased pain, shortness of breath, bleeding, nausea or vomiting, chestpain, or any unexpected problems, contact your Primary Care Provider. Call [facility] ([phone]) or report to the closest Emergency Room. Call 911 if necessary. 05/06/25 0858 <Electronically signed by Que Greene DO> Cosigner Signature (if applicable): CC: Dr. Genia Chappell MD ~ Signed [facility] Work Phone: [phone] 108-965106-11-2025 History and physical note Author Vannesa Camejo [facility] Note Date/Time May 06, 2025 3:22 am [facility] Medical Records Department [address] [place] [address] H&P Exam - Hospitalist 05/06/25 0228 MR#: [id number] Acct: [id number] Name: PIPER CLARK Rep #:[id number] : 1955 69 From: Vannesa Camejo DO PCP: Dr. Genia Chappell MD Status:REG ER Location: ED HPI - General General Date of Admission: 05/06/25 Date of Service: 05/06/25 Chief Complaint: Weakness/mild confusion HPI Narrative PIPER CLARK, is a 69 F who presented to the emergency department [facility] on 05/05/2025 with a chief complaint of generalized weakness with muscle twitching and some intermittent confusion. 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 He will diltiazem was discontinued and metolazone and digoxin were initiated. She is on chronic oxygen at 4 L for COPD and recently had a COPD exacerbation but has no shortness of breath at this time. She states other thanthe weakness she overall has been feeling much better she is very pleased with the amount of swelling in her legs as this is decreased dramatically. Vital signs on presentation showed temperature of 98.5, heart rate is 84, respiratory rate 18, blood pressure is 128/72 and pulse ox is 97% on her baseline 4 L nasal cannula. Chemistry shows a mild leukocytosis with a white count of 13.2 and a platelet count of 474,000. Her hemoglobin is also up to 12.5 which is above her baseline. This appears to be contraction related. ABG was performed due to abnormal chemistry. pH was 7.48 with a pCO2 of 73.8 and a pO2 of 102 on 4 L nasal cannula. Her chemistry showed marked hypokalemia with apotassium of 2.5. Her chloride was 73 with a serum bicarb greater than 50. HerBUN was 20 with a serum creatinine of 0.94. Glucose was 146. Liver functions are normal. Given her marked alkalosis, she was given Diamox 500 mg IV push x 1 dose in emergency department and her potassium was replaced with 40 mEq p.o. potassium and 10 mEq IV potassium. She will be admitted to PCU given her hypokalemia as observation status as I do not anticipate her requiring a 2 midnight hospitalization. [facility] Medical History Morbid obesity with BMI of 45.0-49.9, adult [...] 04/05/25 History aerosol inhaler Shortness Of Breath duloxetine 60 mg capsule,delayed 60 mg PO DAILY mood 1 11/30/23 04/05/25 History release apixaban 5 mg tablet (Eliquis) 5 mg PO BID blood thinn er #60 tabs 02/16/25 04/05/25 Rx fluticasone propionate 50 2 spray intranasal QHS nasal 03/19/25 04/04/25 History mcg/actuation nasal spray,suspension (24 Hour Allergy Relief) furosemide 40 mg tablet 40 mg PO BID water pill 02/2504/05/25 History levofloxacin 500 mg tablet 500 mg PO DAILY #7 tabs Unknown Rx potassium chloride 20 mEq 20 meq PO DAILY supplement # 90 tabs 04/24/25 Unknown Rx tablet,extended release dapagliflozin propanediol 10 mg 10 mg PO QDAY #90 tabs 04/30/25 Unknown Rx tablet (Farxiga) digoxin 250 mcg (0.25 mg) tablet 250 mcg PO QDAY #90 t abs 05/01/25 Unknown Rx metolazone 5 mg tablet 5 mg PO QDAY #90 tabs Unknown Rx metoprolol tartrate 50 mg tablet 50 mg PO BID 05/04/25 Unknown History Allergy/AdvReac Type Severity Reaction Status Date / Time feathers Allergy Intermediate Shortness Verified 05/05/25 21:57 of breath house dust Allergy Unknown Verified 05/05/25 21:57 mold Allergy Unknown Verified 05/05/25 21:57 Family History Mother CAD (coronary artery disease) [...] (~1994) History of appendectomy (~1994) Social History household members: spouse housing: house Smoking Status: Former smoker alcohol intake: current alcohol intake frequency: holidays/special occasions only substance use type: does not use caffeine: Yes Type: coffee Number of servings: 2 ROS Constitutional Constitutional: Reports fatigue and weakness; Denies anorexia, change in weight,chills, fever(s), malaise, night sweats or other Eyes Eyes: Denies blurry vision, change in eye color, change in vision, discharge from eye(s), double vision, erythema, eye pain, loss of vision or other ENT HEENT: Denies abnormal hearing, dysphagia, ear pain, epistaxis, headache(s), hearing loss, nasal congestion, nasal discharge, post nasal drip, sinus pressure, sore throat or other Cardiovascular Cardiovascular: Reports edema; Denies chest pain, claudication, dyspnea on exertion, lightheadedness, orthopnea, palpitations, paroxysmal nocturnal dyspnea, rapid heart rate, syncope or other Respiratory/Chest Respiratory/Chest: Denies cough, dyspnea, excessive phlegm production, hemoptysis, productive cough, shortness of breath at rest, shortness of breath with exertion, wheezing or other Gastrointestinal Gastrointestinal: Denies abdominal pain, coffee ground emesis, constipation, diarrhea, dyspepsia, hematemesis, hematochezia, loose stools, melena, nausea, vomiting or other Genitourinary Genitourinary: Denies burning urination, difficulty urinating, dysuria, hematuria, nocturia, urinary frequency, urinary hesitancy, urinary incontinence,urinary urgency or other Musculoskeletal Musculoskeletal: Reports back pain and joint pain; Denies arthralgias, joint stiffness, joint swelling, myalgias, neck pain or other Neurologic Neurologic: Reports confusion; Denies abnormal gait, abnormal speech, disequilibrium, dizziness, focal weakness, headache(s), numbness, paresthesias, seizure-like activity, seizures, syncope, tingling, tremor(s) or other Psychiatric Psychiatric: Reports anxiety and depression; Denies homicidal ideation, suicidalideation or other Endocrine Endocrinology: Denies change in body appearance, cold intolerance, excessive sweating, heat intolerance, polydipsia, polyuria or other Hematologic/Lymphatic Hematologic/Lymphatic: Denies anemia, easy bleeding, easy bruising, lymphadenopathy or other Allergic/Immunologic Allergic/Immunologic: Denies rhinitis, hives, eczemia, asthma or other Vital Signs Vital Signs Vital Signs: 05/05/25 21:58 05/05/25 23:59 05/06/25 00:01 Temperature 98.5 F Temperature Source Oral Pulse Rate 84 78 Respiratory Rate 18 14 Respiratory Effort Respiratory Pattern Blood Pressure 128/72 H 115/71 Blood Pressure Mean 90 85 Pulse Ox 97 100 Oxygen Delivery Method Nasal Cannula Room Air Oxygen Flow Rate (L/min) 4 Fraction of Inspired Oxygen (FIO2) 05/06/25 00:02 05/06/25 01:55 05/06/25 02:00 Temperature Temperature Source Pulse Rate 88 88 Respiratory Rate 17 18 Respiratory Effort Normal Non-Labored Respiratory Pattern Normal Blood Pressure 122/74 H Blood Pressure Mean 90 Pulse Ox 97 98 Oxygen Delivery Method Oxygen Flow Rate (L/min) Fraction of Inspired Oxygen (FIO2) 35 05/06/25 02:18 Temperature 98.6 F Temperature Source Pulse Rate 88 Respiratory Rate 18 Respiratory Effort Respiratory Pattern Blood Pressure 122/74 H Blood Pressure Mean 90 Pulse Ox 98 Oxygen Delivery Method Oxygen Flow Rate (L/min) Fraction of Inspired Oxygen (FIO2) Weight Weight: 103.2 kg Body Mass Index (BMI) 41.5 Physical Exam Const alert, oriented x3, no apparent distress and well nourished; Negative for average body habitus or healthy appearing Constitutional Narrative: Morbidly obese, older, white female, sitting up in bed on BiPAP as she is going to sleep, appears comfortable, nontoxic General Appearance: cooperative HEENT normocephalic, head/scalp atraumatic, hearing grossly normal bilaterally and moist oral mucous membranes Resp normal respiratory effort, no retractions and no use of accessory muscles Resp Narrative: Diffusely diminished Cardio regular rate, S1 normal heart sound, S2 normal heart sound, no murmurs, no rub, no gallops and no clicks Cardio Narrative: Irregularly irregular rhythm with good rate control, heart tones are distant GI normal to inspection, nondistended, normoactive bowel sounds, soft to palpation and non-tender GI Narrative: Protuberant abdomen Extremity Extremity Narrative: Trace bilateral lower extremity edema, pedal pulses and radial pulses are 2+, noclubbing or cyanosis Neuro oriented x3, moves all extremities and no focal motor deficits Neuro Narrative: Generalized weakness noted but no focal deficits, currently on BiPAP but speech is intelligible and appropriate Psych affect normal Psych Narrative: Pleasant, eye contact is good and she interacts appropriately Results Lab / Micro Data 05/05/25 23:51 05/05/25 23:51 Labs: Laboratory Results - last 24 hr 05/05/25 23:51: WBC 13.2 H, RBC 4.35, Hgb 12.5, Hct 40.1, MCV 92.2, MCH 28.7, MCHC 31.2 L, RDW Std Deviation 51.0 H, RDW Coeff of Beena 15.1 H, Plt Count 477 H, MPV 9.4, Immature Gran % (Auto) 0.900, Neut % (Auto) 77.7 H, Lymph % (Auto) 9.7 L, Navarro % (Auto) 11.1 H, Eos % (Auto) 0.2, Baso % (Auto) 0.4, Absolute Neuts (auto) 10.3 H, Absolute Lymphs (auto) 1.28, Nucleated RBC % 0, Sodium 136, Potassium 2.5 L*, Chloride 73 L*, Carbon Dioxide > 50.0 H*, Anion Gap UNABLE TO CALCULATE L, BUN 20 H, Creatinine 0.94, Estim Creat Clear Calc 61.82, Est GFR (MDRD) Non-Af 65, BUN/Creatinine Ratio 21.6 H, Glucose 146 H, Calcium 10.2, Magnesium 2.1, Total Bilirubin 0.45, Direct Bilirubin 0.21, AST 21, ALT 21, Alkaline Phosphatase 76, Total Protein 6.9, Albumin 3.8, Globulin 3.1, Digoxin 1.15 ABG Data ABG results: ABG 05/06/25 01:33 Specimen Type ART Sample Site R Radial pH 7.48 H Bicarbonate Actual 54.4 H Total CO2 > 50 Base Excess > 30 H O2 Saturation 98 O2 % 4.0 ABG pCO2 73.8 H* ABG pO2 102 H Zechariah Test Positive O2 Delivery Device Cannula Vent Mode Not entered Crit Call To/Read Back Yes Blood Gas Notified Whom [facility] Blood Gas Notified Time 01:34:56 Assessment & Plan Assessment/Plan (1) Acute confusion: (2) Weakness: (3) Acute hypokalemia: (4) Chronic respiratory failure with hypoxia and hypercapnia: (5) Metabolic alkalosis: (6) Respiratory acidosis: PLAN: Plan Generalized weakness - Suspect related to contraction alkalosis and marked hypokalemia - Replace potassium - Patient received 40 mEq p.o. and 10 mEq IV in the emergency department and will give another 40 mEq on admission - Mag levels within normal limits - Patient also appears to have a contraction alkalosis worse than her baseline alkalosis that is compensatory for chronic respiratory acidosis - Hold metolazone and Lasix - Acetazolamide 500 mg x 1 dose - Repeat BMP in a.m. - Dig levels within normal limits Altered mental status - Currently at baseline - Was having intermittent confusion at home but may be related to contraction alkalosis and hypokalemia - Will continue to monitor but currently alert and oriented x 3 Chronic hypoxic and hypercapnic respiratory failure - Patient is on chronic 4 L at home and stable on this at this time - Baseline pCO2 appears to run between 60 and 70 - Current ABG shows alkalosis that is somewhat worse than her baseline like related to contraction alkalosis from diuretics - Patient has a baseline respiratory alkalosis with a compensated metabolic acidosis that is currently overcompensated due to contraction WINIFRED - Continue BiPAP nocturnally and with naps COPD - Oxygen dependent 4 L at baseline - Aerosols as ordered - No signs of acute exacerbation - Continue home inhalers - Follows with Dr. Hoang as an outpatient Atrial fibrillation - Continue apixaban - Continue metoprolol - Patient had been on diltiazem but this was discontinued as there was concern that it was causing her lower extremity edema or at least contributing - Will continue digoxin that was started on 04/30/2025 by cardiology - Level was therapeutic at the time of admission Nonobstructive CAD/essential hypertension/chronic HFpEF/secondary pulmonary hypertension - Hold home diuretics now due to contraction alkalosis and give Diamox 500 mg x 1 dose -May need to titrate home metolazone and Lasix at the time of discharge - Continue home metoprolol - Continue home Jardiance - Last echocardiogram was performed on 03/20/2025 that showed EF of 65% with a small pericardial effusion and right ventricular systolic pressure of 50 mmHg Morbid obesity - BMI is 41.6 - recommend weight loss - complicates treatment, prognosis, outcomes Seasonal allergies - Continue home Singulair History of migraines - Continue as needed migraine medication Depression - Continue home antidepressants DVT prophylaxis - continue home apixaban CODE STATUS - DNR CCA is discussed with patient prior to admission Charges/Coding Visit Charges Inpatient E&M: 57171 Init Hosp L2 05/06/25 0322 <Electronically signed by Vannesa Camejo DO> Cosigner Signature (if applicable): CC: Dr. Genia Chappell MD; Dr. Vannesa Camejo DO~ Signed [facility] Work Phone: 1(231) 339-108306-05-2025 Progress note Author Chandni Courtney [facility] Note Date/Time April 30, 2025 3:06p m [facility] [address] [place] [address] OFFICE VISIT Date of Service: 04/30/25 MR#: [id number] Acct: [id number] Name: PIPER CLARK Rep #: [id number] : 1955 Provider: Dr. Heraclio Courtney MD Age/Sex: 69/F Location: [facility] [place] [facility] Status: Signed HPI HPI History of Present [...] extremity edema. 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 transplanted heart: [place] heart Associated angina: without angina Qualified Code(s): I25.10 - Atherosclerotic heart disease of [place] coronary artery without angina pectoris Plan: Mild [...] type: unspecified chronic Coronary artery disease involving [place] heart without angina pectoris, unspecified vessel or lesion type I25.10 Coronary Disease-Associated Artery/Lesion type: unspecified vessel or lesion type [place] vs. transplanted heart: [place] heart Associated angina: without angina (HFpEF) heart failure with preserved ejection fraction I50.30 Hypertension I10 Chronic airway obstruction J44.9 Sleep apnea G47.30 Morbid obesity E66.01 Coding Level of Care Code Off vis,est,level 4 Diagnoses Chronic atrial fibrillation I48.20 Atrial fibrillation type: unspecified chronic Coronary artery disease involving [place] heart without angina pectoris, unspecified vessel or lesion type I25.10 Coronary Disease-Associated Artery/Lesion type: unspecified vessel or lesion type [place] vs. transplanted heart: [place] heart Associated angina: without angina (HFpEF) heart failure with preserved ejection fraction I50.30 Hypertension I10 Chronic airway obstruction J44.9 Sleep apnea G47.30 Morbid obesity E66.01 Clinical Quality Measures Falls Risk Screening/Assistive Devices Have you fallen in the past year?: Yes (left shoulder fracture, tripping over B3ymnfos) Cardiac Ejection fraction %: 65 04/30/25 1506 <Electronically signed by Chandni Courtney MD> Date _ Chandni Courtney MD Cosigner Signature: Date (if applicable) CC: Dr. Genia Chappell MD ~ [facility] Work Phone: [phone]) [phone] [facility]05-16-2025 Discharge summary Author Geoff Galvan [facility] Note Date/Time April 10, 2025 2:54p m [facility] Medical Records Department [address] [place] [address] Instructions for Home/Discharge Instructions 04/10/25 1425 MR#: [id number] Acct: [id number] Name: PIPER CLARK Rep #:[id number] 5 : 1955 69 From: Geoff mora [...] Qty: 10 0RF Referrals / Follow Up: Genai Chappell MD [Primary Care Provider] - Within 1 Week Mitchell Brian MD [Med Staff - Active Staff] - Within 2 Weeks Disposition Disposition (needs filled in before D/C Order can be placed): Home, Self Care 04/10/25 1454<Electronically signed by Geoff Galvan MD>Geoff Galvan MD CC: Dr. Genia Chappell MD; Dr. Orlando Bolden DO; Dr. Ken Vieyra MD; Dr. Mitchell Brian MD ~ Signed [facility] Work Phone: 1([phone]) 443-220005-16-2025 Discharge summary [facility] Medical Records Department [address] [place] [address] Instructions for Home/Discharge Instructions 04/10/25 1425 MR#: [id number] Acct: [id number] Name: PIPER CLARK Rep #:[id number] 5 : 1955 69 From: Geoff mora [...] Vieyra MD; Dr. Mitchell Brian MD ~ [facility]05-15-2025 Progress note Author [facility] Note Date/Time April 09, 2025 2:54p [facility] Medical Records Department [address] [place] [address] Progress Note - Hospitalist 04/09/25 1445 MR#: [id number] Acct: [id number] Name: PIPER CLARK Rep #:[id number] 0 : 1955 69 From: Ken Hughes PCP: Dr. 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 Mitchell Brian. Currently on BiPAP 18/12 [...] 21:20 IMPRESSION: No Acute Findings. Reading Location: [facility] Chest/Abdomen/Pelvis CT 04/05/25 23:58 IMPRESSION: Pericardial effusion is present measuring around 1.4 cm axial 88, clinically correlate. Small posterior layering left pleural effusion. Bilateral atelectasis without focal consolidation identified. No evidence of acute intra-abdominal process on noncontrast imaging. Diverticulosis without diverticulitis. Reading Location: [id number] Microbiology Past 72 Hours 04/05/25 22:25 Blood [...] 94.1 H, Lymph % (Auto) 1.8 L, [place] % (Auto) 3.3, Eos % (Auto) 0.0, [...] 277 H Charges/Coding Visit Charges Inpatient E&M: 74903 Subs Hosp L2 04/09/25 7865 <Electronically signed by Ken Vieyra MD> Cosigner Signature (if applicable): CC: ~ Signed [facility] Work Phone: 1([phone]) 248-140705-15-2025 Progress note [facility] Medical Records Department [address] [place] [address] Progress Note - Hospitalist 04/09/25 1445 MR#: [id number] Acct: [id number] Name: PIPER CLARK Rep #:[id number] 0 : 1955 69 From: Ken Hughes PCP: Dr. Genia Chappell MD Status:ADM IN Location: [place] [address] Reason for Visit Reason for Visit: Diagnoses [...] Body mass index [BMI] 45.0-49.9, adult (04/05/25) group home (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 anticoagulants (04/05/25) Objective Data [...] 94.1 H, Lymph % (Auto) 1.8 L, [place] % (Auto) 3.3, Eos % (Auto) 0.0, [...] every 8 hourly 04/09: Discussed with the manager discovery Dr. Mitchell Brian. Currently on BiPAP 18/12 [...] 21:20 IMPRESSION: No Acute Findings. Reading Location: [facility] Chest/Abdomen/Pelvis CT 04/05/25 23:58 IMPRESSION: Pericardial effusion is present measuring around 1.4 cm axial 88, clinically correlate. Small posterior layering left pleural effusion. Bilateral atelectasis without focal consolidation identified. No evidence of acute intra-abdominal process on noncontrast imaging. Diverticulosis without diverticulitis. Reading Location: [id number] Microbiology Past 72 Hours 04/05/25 22:25 Blood [...] 94.1 H, Lymph % (Auto) 1.8 L, [place] % (Auto) 3.3, Eos % (Auto) 0.0, [...] 277 H Charges/Coding Visit Charges Inpatient E&M: 75346 Subs Hosp L2 04/09/25 9496 Cosigner Signature (if applicable): CC: ~ Signed [facility]05-15-2025 Progress note Author [facility] Note Date/Time April 09, 2025 8:18a m [facility] Medical Records Department [address] [place] [address] Progress Note 04/09/25 0808 MR#: [id number] Acct: [id number] Name: PIPER CLARK Rep #:[id number] 1 : 1955 69 From: Mitchell norton MD PCP: Dr. Genia Chappell MD Status:ADM IN Location: [place] [address] 1 Subjective Subjective Up out of bed [...] (Auto) 94.1 H, Lymph % (Auto) 1.8L, [place] % (Auto) 3.3, Eos % (Auto) 0.0, [...] Cosigner Signature (if applicable): CC: ~ Signed [facility] Work Phone: 1(524) 518-939605-15-2025 Progress note [facility] Medical Records Department [address] [place] [address] Progress Note 04/09/25 0808 MR#: [id number] Acct: [id number] Name: PIPER CLARK Rep #:[id number] 1 : 1955 69 From: Mitchell norton MD PCP: Dr. Genia Chappell MD Status:ADM IN Location: [place] [address] Subjective Subjective Up out of bed yesterday. [...] (Auto) 94.1 H, Lymph % (Auto) 1.8L, [place] % (Auto) 3.3, Eos % (Auto) 0.0, [...] Cosigner Signature (if applicable): CC: ~ Signed [facility]05-14-2025 Progress note Author Ken Vieyra [facility] Note Date/Time April 08, 2025 2:03p m [facility] Medical Records Department [address] [place] [address] Progress Note - Hospitalist 04/08/25 0843 MR#: [id number] Acct: [id number] Name: PIPER CLARK Rep #:[id number] 3 : 1955 69 From: Ken Hughes PCP: Dr. 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 Reading Location: [facility] Chest/Abdomen/Pelvis CT 04/05/25 23:58 IMPRESSION: Pericardial effusion is present measuring around 1.4 cm axial 88, clinically correlate. Small posterior layering left pleural effusion. Bilateral atelectasis without focal consolidation identified. No evidence of acute intra-abdominal process on noncontrast imaging. Diverticulosis without diverticulitis. Reading Location: [id number] Charges/Coding Visit Charges Inpatient E&M: 41650 Subs Hosp L2 04/08/25 1332 <Electronically signed [...] Cosigner Signature (if applicable): cc: ~* Signed [facility] Work Phone: 1([phone]) 987-106805-14-2025 Progress note [facility] Medical Records Department [address] [place] [address] Progress Note - Hospitalist 04/08/25 0843 MR#: [id number] Acct: [id number] Name: PPIER CLARK Rep #:[id number] 3 : 1955 69 From: Ken Hughes PCP: Dr. Genia Chappell MD Status:ADM IN Location: [place] [address] Reason for Visit Reason for Visit: Diagnoses [...] Body mass index [BMI] 45.0-49.9, adult (04/05/25) group home (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 anticoagulants (04/05/25) Objective Data [...] 94.1 H, Lymph % (Auto) 1.4 L, [place] % (Auto) 3.3, Eos % (Auto) 0.0, [...] 21:20 IMPRESSION: No Acute Findings. [facility] Chest/Abdomen/Pelvis CT 04/05/25 23:58 IMPRESSION: Pericardial effusion is present measuring around 1.4 cm axial 88, clinically correlate. Small posterior layering left pleural effusion. Bilateral atelectasis without focal consolidation identified. No evidence of acute intra-abdominal process on noncontrast imaging. Diverticulosis without diverticulitis. Reading Location: [id number] Charges/Coding Visit Charges Inpatient E&M: 01807 Subs Hosp L2 04/08/25 1332 Cosigner Signature [...] Cosigner Signature (if applicable): cc: ~* Signed [facility]05-13-2025 Progress note Author Ken Vieyra [facility] Note Date/Time April 07, 2025 3:01p [facility] Medical Records Department [address] [place] [address] Progress Note - Hospitalist 04/06/25 0842 MR#: [id number] Acct: [id number] Name: PIPER CLARK Johan Rep #:[id number] 8 : 1955 69 From: Ken Hughes PCP: Dr. 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 Reading Location: [facility] Chest/Abdomen/Pelvis CT 04/05/25 23:58 IMPRESSION: Pericardial effusion is present measuring around 1.4 cm axial 88, clinically correlate. Small posterior layering left pleural effusion. Bilateral atelectasis without focal consolidation identified. No evidence of acute intra-abdominal process on noncontrast imaging. Diverticulosis without diverticulitis. Reading Location: [id number] Rhythm Strip Rhythm Strip: A-fib Rate: 97 [...] 21:20 IMPRESSION: No Acute Findings. Reading Location: [facility] Chest/Abdomen/Pelvis CT 04/05/25 23:58 IMPRESSION: Pericardial effusion is present measuring around 1.4 cm axial 88, clinically correlate. Small posterior layering left pleural effusion. Bilateral atelectasis without focal consolidation identified. No evidence of acute intra-abdominal process on noncontrast imaging. Diverticulosis without diverticulitis. Reading Location: [id number] Charges/Coding Visit Charges Inpatient E&M: 47778 Subs Hosp L2 04/06/25 0852 <Electronically signed [...] 7.4 1/75/54. Bicarb more than 50 04/07/25 1500<Electronically signed by Ken Vieyra MD> Cosigner Signature (if applicable): cc: ~* Signed [facility] Work Phone: 1(289) 225-421405-13-2025 Progress note Author Ken Vieyra [facility] Note Date/Time April 07, 2025 3:00p [facility] Medical Records Department [address] [place] [address] Progress Note - Hospitalist 04/07/25 1453 MR#: [id number] Acct: [id number] Name: PIPER CLARK Rep #:[id number] 7 : 1955 69 From: Ken Hughes PCP: Dr. Genia Chappell MD Status:ADM IN Location: [place] [address]- 1 Reason for Visit Reason for Visit: [...] IV Solu-Medrol, Mucinex, incentive spirometry and Pep. 5/3: Discussed with manager discovery Dr. Dunlap at today. Continue high-dose of [...] 21:20 IMPRESSION: No Acute Findings. Reading Location: [facility] Chest/Abdomen/Pelvis CT 04/05/25 23:58 IMPRESSION: Pericardial effusion is present measuring around 1.4 cm axial 88, clinically correlate. Small posterior layering left pleural effusion. Bilateral atelectasis without focal consolidation identified. No evidence of acute intra-abdominal process on noncontrast imaging. Diverticulosis without diverticulitis. Reading Location: [id number] Charges/Coding Visit Charges Inpatient E&M: 48574 Subs Hosp L3 04/07/25 1500 <Electronically signed by Ken Vieyra MD> Cosigner Signature (if applicable): CC: ~ Signed [facility] Work Phone: 1(550) 717-859305-13-2025 Progress note [facility] Medical Records Department [address] [place] [address] Progress Note - Hospitalist 04/06/25 0842 MR#: [id number] Acct: [id number] Name: PIPER CLARK Rep #:[id number] 8 : 1955 69 From: Ken Hughes PCP: Dr. 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 Reading Location: [facility] Chest/Abdomen/Pelvis CT 04/05/25 23:58 IMPRESSION: Pericardial effusion is present measuring around 1.4 cm axial 88, clinically correlate. Small posterior layering left pleural effusion. Bilateral atelectasis without focal consolidation identified. No evidence of acute intra-abdominal process on noncontrast imaging. Diverticulosis without diverticulitis. Reading Location: [id number]-KW Rhythm Strip Rhythm Strip: A-fib Rate: 97 [...] 21:20 IMPRESSION: No Acute Findings. Reading Location: [facility] Chest/Abdomen/Pelvis CT 04/05/25 23:58 IMPRESSION: Pericardial effusion is present measuring around 1.4 cm axial 88, clinically correlate. Small posterior layering left pleural effusion. Bilateral atelectasis without focal consolidation identified. No evidence of acute intra-abdominal process on noncontrast imaging. Diverticulosis without diverticulitis. Reading Location: [id number] Charges/Coding Visit Charges Inpatient E&M: 92481 Subs Hosp L2 04/06/25 0852 Cosigner Signature [...] high flow nasal cannula. On BiPAP 7.4 175/54. Bicarb more than 50 04/07/25 1500 Cosigner Signature (if applicable): cc: ~* Signed [facility]05-13-2025 Progress note [facility] Medical Records Department [address] [place] [address] Progress Note - Hospitalist 04/07/25 1453 MR#: [id number] Acct: [id number] Name: PIPER CLARK Rep #:[id number] 7 : 1955 69 From: Ken Hughes PCP: Dr. Genia Chappell MD Status:ADM IN Location: [place] [address] Reason for Visit Reason for Visit: Diagnoses [...] high flow nasal cannula. On BiPAP 7.4 175/54. Bicarbmore than 50 04/07 on BMP bicarb 42. #Aute exacerbation of COPD: Was discharged on 03/24/2025 about 2 weeks ago. Patient is being managedon scheduled bronchodilator, IV Solu-Medrol, Mucinex, incentive spirometry and Pep. 03/28: Discussed with manager discovery Dr. Dunlap at today. Continue high-dose of [...] 21:20 IMPRESSION: No Acute Findings. [facility] Chest/Abdomen/Pelvis CT 04/05/25 23:58 IMPRESSION: Pericardial effusion is present measuring around 1.4 cm axial 88, clinically correlate. Small posterior layering left pleural effusion. Bilateral atelectasis without focal consolidation identified. No evidence of acute intra-abdominal process on noncontrast imaging. Diverticulosis without diverticulitis. Reading Location: [facility] Charges/Coding Visit Charges Inpatient E&M: 77582 Subs Hosp L3 04/07/25 1500 Cosigner Signature (if applicable): CC: ~ Signed [facility]05-13-2025 Progress note Author Mitchell Brian [facility] Note Date/Time April 07, 2025 8:14a m [facility] Medical Records Department [address] [place] [address] Progress Note 04/07/25806 MR#: [id number] Acct: [id number] Name: PIPER CLARK Rep #:[id number] 7 : 1955 69 From: Mitchell norton MD PCP: Dr. Genia Chappell MD Status:ADM IN Location: [place] [address] Subjective Subjective The patient slept well, she [...] Cosigner Signature (if applicable): CC: ~ Signed [facility] Work Phone: 1(429) 924-248205-13-2025 Progress note [facility] Medical Records Department [address] [place] [address] Progress Note 04/07/25806 MR#: [id number] Acct: [id number] Name: PIPER CLARK Rep #:[id number] 7 : 1955 69 From: Mitchell norton MD PCP: Dr. Genia Chappell MD Status:ADM IN Location: [place] [address] Subjective Subjective The patient slept well, she [...] Cosigner Signature (if applicable): CC: ~ Signed [facility]05-12-2025 History and physical note Author Orlando Maldonado [facility] Note Date/Time April 06, 2025 6:10a m [facility] Medical Records Department [address] [place] [address] H&P Exam - Hospitalist 04/05/258 MR#: [id number] Acct: [id number] Name: PIPER CLARK Rep #:[id number] 0 : 1955 69 From: Orlando Zavaleta DO PCP: Dr. Genia Chappell MD Status:ADM IN Location: [facility] [id number]- [id number] HPI - General General Date of [...] troponin T of 19 bg/L complicated by Ucqce-ha-Zlhvecb Respiratory Insufficiency with LVEF ~65% and RVSP of ~50 mmHg with inability to evaluate for diastolic dysfunction who re-presents to [facility] complaining of shortness of breath, wheezing [...] is expected to extend beyond 2 midnights. [facility] Medical History (Updated 04/06/25 @ 05:13 by [...] 92.3 H, Lymph % (Auto) 2.2 L, Navarro % (Auto) 4.1, Eos % (Auto) 0.0, [...] (MDRD) Non-Af 82, BUN/Creatinine Ratio 29.9 H, Wqwhhjl041 H, Lactic Acid 2.5 H*, Calcium 9.2, Troponin T High Sens 10 D, NT pro BNP II 1349 H Rhythm Strip Rhythm Strip: A-fib Rate: 97 Ectopy: None Imaging Radiology Impression Chest X-Ray 04/05/25 21:20 IMPRESSION: No Acute Findings. Reading Location: [facility] Imaging Services [address] [place] [address] Chest, Abd, Pelvis WO Cont MR#: [id number] Acct: [id number] Name: PPIER CLARK Rep #: [id number] : 1955 F 69 From: Mitchell Collier MD PCP: Dr. Genia Chappell MD Status: ADM IN Study: CT Chest, Abd, Pelvis WO Cont Date of Exam: 04/05/25 Exam# [id number] Ordering Dr: Orlando Bolden DO PROCEDURE: CT [...] noncontrast imaging. Diverticulosis without diverticulitis. Reading Location: [id number] CC: Dr. Genia Chappell MD; Dr. Orlando Bolden DO ~ Manager Bakery: Signed Assessment & Plan Assessment/Plan (1) Acute [...] pro-BNP II daily to follow trend. 4. Nizgs-hl-Vhxghtt Respiratory Failure requiring Airvo attributable to #1 [...] 75 minutes. Charges/Coding Visit Charges Inpatient E&M: [address] Init Hosp L3 04/06/25 0610 <Electronically signed by Orlando Bolden DO> Cosigner Signature (if applicable): CC: Dr. Genia Chappell MD; Dr. Orlando Bolden DO~ Signed [facility] Work Phone: 1(926) 687-517505-12-2025 History and physical note [facility] Medical Records Department [address] [place] [address] H&P Exam - Hospitalist 04/05/25 3048 MR#: [id number] Acct: [id number] Name: PIPER CLARK Rep #:[id number] 0 : 1955 69 From: Orlando Zavaleta DO PCP: Dr. Genia Chappell MD Status:ADM IN Location: [place] [address] HPI - General General Date of Admission: [...] troponin T of 19 bg/L complicated by Iscsp-as-Rydiwoe Respiratory Insufficiency with LVEF ~65% and RVSP of ~50 mmHg with inability to evaluate for diastolic dysfunction who re-presents to [facility] complaining of shortness of breath, wheezing [...] that is expected to extend beyond 2midnights. [facility] Medical History (Updated 04/06/25 @ 05:13 by [...] 92.3 H, Lymph % (Auto) 2.2 L, Navarro % (Auto) 4.1, Eos % (Auto) 0.0, [...] (MDRD) Non-Af 82, BUN/Creatinine Ratio 29.9 H, Xeaklzz253 H, Lactic Acid 2.5 H*, Calcium 9.2, Troponin T High Sens 10 D, NT pro BNP II 1349 H Rhythm Strip Rhythm Strip: A-fib Rate: 97 Ectopy: None Imaging Radiology Impression Chest X-Ray 04/05/25 21:20 IMPRESSION: No Acute Findings. Reading Location: [facility] Imaging Services [address] [place] [address] Chest, Abd, Pelvis WO Cont MR#: [id number] Acct: [id number] Name: PIPER CLARK Rep #: [id number] : 1955 F 69 From: Mitchell Collier MD PCP: Dr. Genia Chappell MD Status: ADM IN Study: CT Chest, Abd, Pelvis WO Cont Date of Exam: 04/05/25 Exam# [id number] Ordering Dr: Orlando Bolden DO PROCEDURE: CT [...] noncontrast imaging. Diverticulosis without diverticulitis. Reading Location: [id number] CC: Dr. Genia Chappell MD; Dr. Orlando Bolden DO ~ Manager Bakery: Signed Assessment & Plan Assessment/Plan (1) Acute [...] pro-BNP II daily to follow trend. 4. Czgix-fm-Fdkbzpb Respiratory Failure requiring Airvo attributable to #1 [...] 75 minutes. Charges/Coding Visit Charges Inpatient E&M: 73582 Init Hosp L3 04/06/25 0610 Cosigner Signature (if applicable): CC: Dr. Genia Chappell MD; Dr. Orlando Bolden, DO~ Signed [facility]05-12-2025 Discharge summary Author Andi Ortiz [facility] Note Date/Time April 05, 2025 11:02 pm [facility] Medical Records Department [address] [place] [address] Emergency Department Summary 04/05/25 MR#: [id number] Acct: [id number] Name: PIEPR CLARK Rep #:[id number] 0 : 1955 69 From: Andi Ortiz [...] not usually the case for her. [facility] Medical History Chronic anticoagulation Elevated troponin Morbid [...] 92.3 H Lymph % (Auto) 2.2 L Navarro % (Auto) 4.1 Eos % (Auto) 0.0 [...] 21:20 IMPRESSION: No Acute Findings. [facility] Rhythm Strip Rhythm Strip: A-fib Rate: 97 [...] min), Including time spent:, Discussing w/Patient &/or Family/Hatchery Helper, Discussing w/Consultants, Arranging Admission or Transfer and Performing Direct Patient Care at Bedside Discharge Plan Dx/Rx/DC Orders Clinical Impression: Acute hypoxic respiratory failure, Atrial fibrillation, Bilateral edema of lower extremity, Acute exacerbation of chronic obstructive pulmonary disease (COPD) Disposition Disposition: Acute Care Hospital [facility] What to do if you have Problems For any increased pain, shortness of breath, bleeding, nausea or vomiting, chestpain, or any unexpected problems, contact your Primary Care Provider. Call [facility] ([phone]) or report to the closest Emergency Room. Call 911 if necessary. 04/05/25 230 <Electronically signed by Andi Ortiz MD> Cosigner Signature (if applicable): CC: Dr. Genia Chappell MD ~ Signed [facility] Work Phone: 1(706) 374-194105-12-2025 Radiology Diagnostic study note [facility] Imaging Services [address] [place], [place] [address] CT Chest, Abd, Pelvis WO Cont MR#: [id number] Acct: [id number] Name: PIPER CLARK Rep #: [id number] 1 : 1955 F 69 From: Juvenal Collier MD PCP: Dr. Genia Chappell MD Status: ADM IN Study:CT Chest, Abd, Pelvis WO Cont Date of [place] mitchell: 04/05/25 Exam# [id number] Ordering Dr: Orlando Crump DO PROCEDURE: CT [...] noncontrast imaging. Diverticulosis without diverticulitis. Reading Location: [facility] CC: Dr. Genia Chappell MD; Dr. Orlando Bolden, DO ~ Manager Bakery: Signed [facility]05-11-2025 Discharge summary [facility] Medical Records Department [address] [place] [address] Emergency Department Summary 04/05/25 MR#: [id number] Acct: [id number] Name: PIPER CLARK Rep #:[id number] 0 : 1955 69 From: Andi Ortiz [...] not usually the case for her. [facility] Medical History Chronic anticoagulation Elevated troponin Morbid [...] 92.3 H Lymph % (Auto) 2.2 L Navarro % (Auto) 4.1 Eos % (Auto) 0.0 [...] 21:20 IMPRESSION: No Acute Findings. Reading Location: [facility] Rhythm Strip Rhythm Strip: A-fib Rate: 97 [...] min), Including time spent:, Discussing w/Patient &/or Family/Hatchery Helper, Discussing w/Consultants, Arranging Admission or Transfer and Performing Direct Patient Care at Bedside Discharge Plan Dx/Rx/DC Orders Clinical Impression: Acute hypoxic respiratory failure, Atrial fibrillation, Bilateral edema of lower extremity, Acute exacerbation of chronic obstructive pulmonary disease (COPD) Disposition Disposition: Acute Care Hospital [facility] What to do if you have Problems For any increased pain, shortness of breath, bleeding, nausea or vomiting, chestpain, or any unexpected problems, contact your Primary Care Provider. Call [facility] ([phone]) or report tothe closest Emergency Room. Call 911 if necessary. 04/05/25 2302 Cosigner Signature (if applicable): CC: Dr. Genia Chappell MD ~ Signed [facility]05-11-2025 Radiology Diagnostic study note [facility] Imaging Services [address] [place] [address] Chest 1 View (Portable) MR#: [id number] Acct: [id number] Name: BENITO,PIPER L Rep #: [id number] 6 : 1955 F 69 From: Amebr Cortez MD PCP: Dr. Genia Chappell MD Status: PRE ER Study:Chest 1 View (Portable) Date of Exam: 04/05/25 Exam# [id number] Ordering Dr: Sal Ortiz MD PROCEDURE: CHEST 1 VIEW (PORTABLE) 04/05/2025 REASON FOR EXAM: SOB TECHNIQUE: Frontal view of the chest. COMPARISON: 03/30/2025 FINDINGS: Hardware: None Heart: Heart size is mildly enlarged. Lungs: Mild bibasilar atelectasis. No focal consolidation. No pneumothorax. No pleural effusion. Bones: The bones are unremarkable. Other: RAD/Chest 1 View (Portable) IMPRESSION: No Acute Findings. Reading Location: [facility] CC: Dr. Andi Ortiz MD; Dr. Genia Chappell MD ~ Manager Bakery: Signed [facility]05-06-2025 Radiology Diagnostic study note [facility] Imaging Services [address] [place] [address] Chest PA and Lateral MR#: [id number] Acct: [id number] Name: BENITOPIPER Rep #: [id number] 9 : 1955 F 69 From: Henrry Fowler MD PCP: Dr. Genia Chappell MD Status: REG CL I Study:Chest PA and Lateral Date of Exam: 03/30/25 Exam# [id number] Ordering Dr: Ny Chappell MD PROCEDURE: 03/30/2025 [...] Underlying COPD may be present. Reading Location: [id number] CC: Dr. Genia Chappell MD ~ Manager Bakery: Signed [facility]04-29-2025 Consult note [facility] Medical Records Department [address] [place] [address] Counseling Note - Pharmacy 03/24/25 1345 MR#: [id number] Acct: [id number] Name: PIPER CLARK Rep #:[id number] 0 : 1955 69 From: Lesly King PCP: Dr. Genia Chappell MD Status:ADM IN Y Location: [place] [address] Pharmacy [facility] has performed discharge medication reconciliation [...] Signature (if applicable): Date CC: ~ Signed [facility]04-29-2025 Discharge summary Author Cindi Lizarraga [facility] Note Date/Time March 24, 2025 12: 42pm [facility] Medical Records Department [address] [place] [address] Instructions for Home/Discharge Instructions 03/24/25 1241 MR#: [id number] Acct: [id number] Name: PIPER CLARK Rep #:[id number] 6 : 1955 69 From: Cindi Lizarraga [...] Up: Christy Perea MD [Med Staff - Home And School Visitor] - Genia Chappell MD [Primary Care Provider] - 03/25/25 11:30 am (With Nurse Practioner Azael ) Disposition Disposition (needs filled in before D/C Order can be placed): Home Health Service 03/24/25 1242<Electronically signed by Cindi Lizarraga MD>Cindi Lizarraga MD CC: Dr. Genia Chappell MD; Dr. Orlando Bolden DO; Dr. Chai Rider DO ~ Signed [facility] Work Phone: [phone]) 885-245704-29-2025 Discharge summary Author [facility] Note Date/Time March 24, 2025 2:2 6pm [facility] Medical Records Department [address] [place] [address] Discharge Summary 03/24/25 1242 MR#: [id number] Acct: [id number] Name: PIPER CLARK Rep #:[id number] 8 : 1955 69 From: Cindi Lizarraga MD PCP: Dr. Genia Chappell MD Status:ADM IN Location: [place] [address] Providers Date of Admission: 03/19/25 Date of [...] 89.5 H, Lymph % (Auto) 3.6 L, Navarro % (Auto) 3.8, Eos % (Auto) 2.0, [...] Up: Christy Perea MD [Med Staff - Home And School Visitor] - Genia Chappell MD [Primary Care Provider] - 03/25/25 11:30 am (With Nurse Practioner Azael ) Disposition Disposition (needs filled in before D/C Order can be placed): Home Health Service Charges/Coding Visit Charges Inpatient E&M: 11079 Disch Hosp >30min 03/24/25 1426 <Electronically signed by Cindi Lizarraga MD> Cosigner Signature (if applicable): CC: Dr. Genia Chappell MD; Dr. Cindi Lizarraga MD~ Signed [facility] Work Phone: 1(679) 423-439304-29-2025 Discharge summary [facility] Medical Records Department [address] [place] [address] Discharge Summary 03/24/25 1242 MR#: [id number] Acct: [id number] Name: PIPER CLARK Rep #:[id number] 8 : 1955 69 From: Cindi Lizarraga MD PCP: Dr. Genia Chappell MD Status:ADM [facility] Providers Date of Admission: 03/19/25 Date of [...] 89.5 H, Lymph % (Auto) 3.6 L, Navarro % (Auto) 3.8, Eos % (Auto) 2.0, [...] Up: Christy Perea MD [Med Staff - Home And School Visitor] - Genia Chappell MD [Primary Care Provider] - 03/25/25 11:30 am (With Nurse Practioner Azael ) Disposition Disposition (needs filled in before D/C Order can be placed): Home Health Service Charges/Coding Visit Charges Inpatient E&M: 11116 Disch Hosp >30min 03/24/25 1426 Cosigner Signature (if applicable): CC: Dr. Genia Chappell MD; Dr. Cindi Lizarraga MD~ Signed [facility]04-29-2025 Discharge summary [facility] Medical Records Department [address] [place] [address] Instructions for Home/Discharge Instructions 03/24/25 1241 MR#: [id number] Acct: [id number] Name: PIPER CLARK Rep #:[id number] 6 : 1955 69 From: Cindi Lizarraga [...] Up: Christy Perea MD [Med Staff - Home And School Visitor] - Genia Chappell MD [Primary Care Provider] - 03/25/25 11:30 am (With Nurse Practioner Azael ) Disposition Disposition (needs filled in before D/C Order can be placed): Home Health Service 03/24/25 1242Cindi Lizarraga MD CC: Dr. Genia Chappell MD; Dr. Orlando Bolden DO; Dr. Chai Rider DO ~ Signed [facility]04-29-[facility] Progress note Author Cindi [facility] Note Date/Time March 23, 2025 4:4 4pm [facility] Medical Records Department [address] [place] [address] Progress Note 03/23/25 1351 MR#: [id number] Acct: [id number] Name: PIPER CLARK Rep #:[id number] 5 : 1955 69 From: Cindi Lizarraga MD PCP: Dr. Genia Chappell MD Status:ADM IN Location: [place] [address] Subjective Subjective Patient seen and examined. She [...] Intake and Output for Last 24 Hours 0403/22/25 03/23/25 23:59 23:59 23:59 Intake Total 1335 [...] On Eliquis Charges/Coding Visit Charges Inpatient E&M: 90189 Subs Hosp L2 03/23/25 1644 <Electronically signed by Cindi Lizarraga MD> Cindi Lizarraga MD Cosigner Signature (if applicable): CC: ~ Signed [facility] Work Phone: 1(289) 145-129704-28-2025 Progress note [facility] Medical Records Department [address] [place] [address] Progress Note 03/23/25 1351 MR#: [id number] Acct: [id number] Name: PIPER CLARK Rep #:[id number] 5 : 1955 69 From: Cindi Lizarraga MD PCP: Dr. Genia Chappell MD Status:ADM IN Location: [place] [address] Subjective Subjective Patient seen and examined. She [...] On Eliquis Charges/Coding Visit Charges Inpatient E&M: 58994 Subs Hosp L2 03/23/25 1644 Cindi Lizarraga MD Cosigner Signature (if applicable): CC: ~ Signed [facility]04-27-2025 Progress note Author Chai Rider [facility] Note Date/Time March 22, 2025 5:4 3pm [facility] Medical Records Department [address] [place] [address] Progress Note - Hospitalist 03/22/25 1740 MR#: [id number] Acct: [id number] Name: PIPER CLARK Rep #:[id number] 9 : 1955 69 From: Chai Rider DO PCP: Dr. Genia Chappell MD Status:ADM IN Location: [place] [address] Reason for Visit Reason for Visit: Diagnoses [...] 35 minutes Charges/Coding Visit Charges Inpatient E&M: 13340 Subs Hosp L2 03/22/25 174 <Electronically signed by Chai Rider DO> Cosigner Signature (if applicable): CC: ~ Signed [facility] Work Phone: 1(986) 243-895604-27-2025 Progress note [facility] Medical Records Department [address] [place] [address] Progress Note - Hospitalist 03/22/251739 MR#: [id number] Acct: [id number] Name: PIPER CLARK Rep #:[id number] 9 : 1955 69 From: Chai Rider DO PCP: Dr. Genia Chappell MD Status:ADM IN Location: [place] [address] Reason for Visit Reason for Visit: Diagnoses [...] 35 minutes Charges/Coding Visit Charges Inpatient E&M: 30014 Subs Hosp L2 03/22/25 1766 Cosigner Signature (if applicable): CC: ~ Signed [facility]04-26-2025 Progress note Author Chai Rider [facility] Note Date/Time March 21, 2025 12: 03pm [facility] Medical Records Department [address] [place] [address] Progress Note - Hospitalist 03/21/25 1200 MR#: [id number] Acct: [id number] Name: PIPER CLARK Rep #:[id number] 8 : 1955 69 From: Chai Rider DO PCP: Dr. Genia Chappell MD Status:ADM IN Location: [place] [address] Reason for Visit Reason for Visit: Diagnoses [...] 35 minutes Charges/Coding Visit Charges Inpatient E&M: 49720 Subs Hosp L2 03/21/25 1203 <Electronically signed by Chai Rider DO> Cosigner Signature (if applicable): CC: ~ Signed [facility] Work Phone: 1(364) 286-479304-26-2025 Progress note [facility] Medical Records Department [address] [place] [address] Progress Note - Hospitalist 03/21/25 1200 MR#: [id number] Acct: [id number] Name: PIPER CLARK Rep #:[id number] 8 : 1955 69 From: Chai Rider DO PCP: Dr. Genia Chappell MD Status:ADM IN Location: [place] [address] Reason for Visit Reason for Visit: Diagnoses [...] 35 minutes Charges/Coding Visit Charges Inpatient E&M: 51798 Subs Hosp L2 03/21/25 1203 Cosigner Signature (if applicable): CC: ~ Signed [facility]04-25-2025 Progress note Author Chai Rider [facility] Note Date/Time March 20, 2025 7:3 7pm [facility] Medical Records Department [address] [place] [address] Progress Note - Hospitalist 03/20/251926 MR#: [id number] Acct: [id number] Name: PIPER CLARK Rep #:[id number] 1 : 1955 69 From: Chai Rider DO PCP: Dr. Genia Chpapell MD Status:ADM IN Location: [place] [address] Reason for Visit Reason for Visit: Diagnoses [...] 73.9 H, Lymph % (Auto) 13.9 L, Navarro % (Auto) 9.2, Eos % (Auto) 2.2, [...] (Auto) 93.9 H, Lymph % (Auto)4.3 L, Navarro % (Auto) 1.2, Eos % (Auto) 0.0, [...] Referring Physician: GENIA CHAPPELL Performed By: Katelyn Barakat, TONI Physical Exam Const alert, oriented x3, no [...] 35 minutes Charges/Coding Visit Charges Inpatient E&M: 17024 Subs Hosp L2 03/20/251936 <Electronically signed by Chai Rider DO> Cosigner Signature (if applicable): CC: ~ Signed [facility] Work Phone: 1(852) 151-885204-25-2025 Progress note [facility] Medical Records Department [address] [place] [address] Progress Note - Hospitalist 03/20/251926 MR#: [id number] Acct: [id number] Name: PIPER CLARK Rep #:[id number] 1 : 1955 69 From: Chai Rider DO PCP: Dr. Genia Chappell MD Status:ADM IN Location: [place] [address] Reason for Visit Reason for Visit: Diagnoses [...] 73.9 H, Lymph % (Auto) 13.9 L, Navarro % (Auto) 9.2, Eos % (Auto) 2.2, [...] Std Deviation 48.0 H, RDW Coeff of Ebena 13.5, Plt Count 315, MPV 9.8, Immature Gran % (Auto) 0.500, Neut % (Auto) 93.9 H, Lymph % (Auto)4.3 L, Navarro % (Auto) 1.2, Eos % (Auto) 0.0, [...] 35 minutes Charges/Coding Visit Charges Inpatient E&M: 30909 Subs Hosp L2 03/20/251936 Cosigner Signature (if applicable): CC: ~ Signed [facility]04-25-2025 History and physical note Author Orlando Maldonado [facility] Note Date/Time March 20, 2025 6:1 7am [facility] Medical Records Department [address] [place] [address] H&P Exam - Hospitalist 03/19/252137 MR#: [id number] Acct: [id number] Name: PIPER CLARK Rep #:[id number] 2 : 1955 69 From: Orlando Zavaleta DO PCP: Dr. Genia Chappell MD Status:ADM IN Location: [place] [address] HPI - General General Date of Admission: [...] on acetaminophen twice daily who presents to [facility] ER complaining of shortness of breath, [...] is expected to extend beyond 2 midnights. [facility] Medical History Atrial fibrillation Hypertension Abnormal stress [...] 73.9 H, Lymph % (Auto) 13.9 L, Navarro % (Auto) 9.2, Eos % (Auto) 2.2, [...] Artery/Lesion type: unspecified vessel or lesion type [place] vs. transplanted heart: [place] heart Associated angina: without angina Qualified Code(s): I25.10 - Atherosclerotic heart disease of [place] coronary artery without angina pectoris (6) Respiratory [...] - Serialize troponin to follow trend. 4. Npctg-dl-Jynistq Respiratory Insufficiency attributable to #1 - #3 [...] 75 minutes. Charges/Coding Visit Charges Inpatient E&M: 63426 Init Hosp L3 03/20/25 0617 <Electronically signed by Orlando Bolden DO> Cosigner Signature (if applicable): CC: Dr. Genia Chappell MD; Dr. Orlando Bolden DO~ Signed [facility] Work Phone: 1(313) 351-197404-25-2025 History and physical note [facility] Medical Records Department [address] [facility] [place] [address] H&P Exam - Hospitalist 03/19/252137 MR#: [id number] Acct: [id number] Name: PIPER CLARK Rep #:[id number] 2 : 1955 69 From: Orlando Zavaleta DO PCP: Dr. Genia Chappell MD Status:ADM IN Location: [place] [address] HPI - General General Date of Admission: [...] on acetaminophen twice daily who presents to [facility] ER complaining of shortness of breath, [...] is expected to extend beyond 2 midnights. [facility] Medical History Atrial fibrillation Hypertension Abnormal stress [...] 73.9 H, Lymph % (Auto) 13.9 L, Navarro % (Auto) 9.2, Eos % (Auto) 2.2, [...] Artery/Lesion type: unspecified vessel or lesion type [place] vs. 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 4. Xazaw-vt-Fpjrkml Respiratory Insufficiency attributable to #1 - #3 [...] 75 minutes. Charges/Coding Visit Charges Inpatient E&M: 10249 Init Hosp 03/20/25 0617 Cosigner Signature (if applicable): CC: Dr. Genia Chappell MD; Dr. Orlando Bolden DO~ Signed [facility]04-25-2025 Discharge summary Author Juan F Curran [facility] Note Date/Time March 19, 2025 10: 08pm [facility] Medical Records Department [address] [place] [address] Emergency Department Summary 03/19/25 MR#: [id number] Acct: [id number] Name: PIPER CLARK Rep #:[id number] 2 : 1955 69 From: Juan F Curran DO PCP: Dr. Genia Chappell MD Status:ADM IN Location: [place] [address] HPI History of Present Illness Chief Complaint: [...] 10 months of about 30 pounds [facility] Medical History Atrial fibrillation Hypertension Abnormal stress [...] 0.8. Troponin slightly elevated 19 and [facility] was elevated at thousand 3. Chest x-ray [...] 73.9 H Lymph % (Auto) 13.9 L Navarro % (Auto) 9.2 Eos % (Auto) 2.2 [...] Referrals: Christy Perea MD [Med Staff - Home And School Visitor] - Print Language: Qatari Disposition Disposition: Acute Care Hospital [facility] What to do if you have Problems For any increased pain, shortness of breath, bleeding, nausea or vomiting, chestpain, or any unexpected problems, contact your Primary Care Provider. Call [facility] ([phone]) or report to the closest Emergency Room. Call 911 if necessary. 03/19/252207 <Electronically signed by Juan F Curran DO> Cosigner Signature (if applicable): CC: Dr. Genia Chappell MD ~ Signed [facility] Work Phone: 1([phone]) 745-501004-25-2025 Evaluation note* Diagnosis Onset Date Resolution Status Admit Date Respiratory insufficiency resolved March 19, 2025 10:05pm Acute dyspnea inactive March 19, 2025 10:05pm Atrial fibrillation inactive March 19, 2025 10:05pm CHF (congestive heart failure) inact [place] March 19, 2025 10:05pm Chronic anticoagulation inactive A 2024 10:05pm COPD exacerbation inactive February 252024 10:05pm Coronary artery disease inactive A [facility]20[facility] 10:05pm Edema of both legs inactive March 19, 2025 10:05pm Elevated troponin inactive February 252024 10:05pm Morbid obesity with BMI of 45.0-49.9, adult inactive March 19 10:05pm [facility] Work Phone: 1(413) 540-627904-25-2025 Evaluation note* Diagnosis Onset Date Resolution Status Admit Date Morbid obesity with BMI of 45.0-49.9, adult acute March 19 10:05pm Respiratory insufficiency resolved March 19, 2025 10:05pm Acute dyspnea inactive March 19, 2025 10:05pm Atrial fibrillation inactive March 19, 2025 10:05pm CHF (congestive heart failure) inact [place] March 19, 2025 10:05pm Chronic anticoagulation inactive A 2024 10:05pm COPD exacerbation inactive February 252024 10:05pm Coronary artery disease inactive A [facility] 2024 10:05pm Edema of both legs inactive March 19, 2025 10:05pm Elevated troponin inactive February 252024 10:05pm Acute hypoxic respiratory failure acute April 05, 2025 1 1:12pm Bilateral edema of lower extremity acute April 05, 2025 1 1:12pm Chronic anticoagulation acute M ay 2024 11:12pm Elevated brain natriuretic peptide (BNP) [...] 1:12pm Atrial fibrillation chronic March 262024 11:12pm [facility] Work Phone: [phone]) [phone] Evaluation note* Diagnosis Onset Date Resolution Status Admit Date Morbid obesity with BMI of 45.0-49.9, adult acute March 19 10:05pm Respiratory insufficiency resolved March 19, 2025 10:05pm Acute dyspnea inactive March 19, 2025 10:05pm Atrial fibrillation inactive March 19, 2025 10:05pm CHF (congestive heart failure) inact [place] March 19, 2025 10:05pm Chronic anticoagulation inactive A [facility] 2024 10:05pm COPD exacerbation inactive February 252024 10:05pm Coronary artery disease inactive A [facility] 2024 10:05pm Edema of both legs inactive [...] 1:26pm Atrial fibrillation chronic March 262024 11:26pm [facility] Work Phone: 1(726) 582-845204-25-2025 Evaluation note* Diagnosis Onset Date Resolution Status [...] 2:23pm Sleep apnea chronic April 30 2:23pm [facility] Work Phone: 1(996) 342-800904-25-2025 Evaluation note* Diagnosis Onset Date Resolution Status [...] 2:23pm Sleep apnea chronic April 30 2:23pm Acute confusion acute April 2:36am Acute hypokalemia acute May 062024 2:36am Alkalosis acute May 06 2:36am Metabolic alkalosis acute May 06, 2025 2:36am Respiratory acidosis acute May 06, 2025 2:36am Weakness acute May 06 2:36am Chronic respiratory failure with hypoxia and hypercapnia chronic April 2:36am COPD (chronic obstructive pulmonary disease) chronic May 06 2:36am [facility] Work Phone: 1(801) 769-442804-24-2025 Discharge summary [facility] Medical Records Department [address] [place] [address] Emergency Department Summary 03/19/25 MR#: [id number] Acct: [id number] Name: PIPER CLARK Rep #:[id number] : 1955 69 From: Juan F Curran DO PCP: Dr. Genia Chappell MD Status:ADM IN Location: [place] [address] HPI History of Present Illness Chief Complaint: [...] 10 months of about 30 pounds [facility] Medical History Atrial fibrillation Hypertension Abnormal stress [...] 0.8. Troponin slightly elevated 19 and [facility] was elevated at thousand 3. Chest x-ray [...] 73.9 H Lymph % (Auto) 13.9 L Navarro % (Auto) 9.2 Eos % (Auto) 2.2 [...] humeral neck. Please correlate. Reading Location: [place] 1 view chest x-ray obtained interpreted by [...] Referrals: Christy Perea MD [Med Staff - Home And School Visitor] - Print Language: Qatari Disposition Disposition: Acute Care Hospital [facility] What to do if you have Problems For any increased pain, shortness of breath, bleeding, nausea or vomiting, chestpain, or any unexpected problems, contact your Primary Care Provider. Call [facility] ([phone]) or report tothe closest Emergency Room. Call 911 if necessary. 03/19/252207 Cosigner Signature (if applicable): CC: Dr. Genia Chappell MD ~ Signed [facility]04-24-2025 Radiology Diagnostic study note [facility] Imaging Services [address] [place], [place] [address] Chest 1 View (Portable) MR#: [id number] Acct: [id number] Name: PIPER CLARK Rep #: [id number] : 1955 F 69 From: Juvenal Malagon DO PCP: Dr. Genia Chappell MD Status: REG ER Study:Chest 1 View (Portable) Date of Exam: 03/19/25 Exam# [id number] Ordering Dr: Stephany Curran DO PROCEDURE: CHEST [...] MD; Dr. Juan F Curran DO ~ Manager Bakery: Signed [facility]01-09-2025 Evaluation note* Diagnosis Onset Date Resolution [...] 252024 10:05pm Coronary artery disease chronic A [facility]2024 10:05pm [facility] Work Phone: 1(966) 180-339501-09-2025 Evaluation note* Diagnosis Onset Date Resolution Status Admit Date Fracture of left shoulder inactive December 04, 2024 1:43pm Respiratory insufficiency resolved March 19, 2025 10:05pm Acute dyspnea inactive March 19, 2025 10:05pm Atrial fibrillation inactive March 19, 2025 10:05pm CHF (congestive heart failure) inact [place] March 19, 2025 10:05pm Chronic anticoagulation inactive A [facility] 2024 10:05pm COPD exacerbation inactive February 252024 10:05pm Coronary artery disease inactive A [facility] 2024 10:05pm Edema of both legs inactive March 19, 2025 10:05pm Elevated troponin inactive February 252024 10:05pm Morbid obesity with BMI of 45.0-49.9, adult inactive March 19 10:05pm [facility] Work Phone: 1(138) 680-708612-03-2024 Evaluation note* Diagnosis Onset Date Resolution Status Admit Date Atrial fibrillation chronic Decem 2023 2:14pm Chronic airway obstruction chronic October 28, 2024 2:14pm Coronary artery disease chronic D ec2023 2:14pm Hypertension chronic October 2:14pm Morbid obesity chronic October 282023 2:14pm Sleep apnea chronic October 28, 2024 2:14pm Fracture of left shoulder inactive December 04, 2024 1:43pm [facility] Work Phone: 1(307) 798-522708-14-2023 Progress note [facility] July 09, 2023 3:21pm Note Date/Time July 09, 2023 3: 20pm [facility] Medical Records Department [address] [place] [address] Progress Note - Hospitalist 07/09/23 1511 MR#: [id number] Acct: [id number] Name: HUSSAIN CLARKNATALIYA Prado Rep #:[id number] : 1955 67 From: Preston Mckeon kate DO PCP: Dr. Christy Perea MD Status:ADM IN Location: [place]3 IC316-3 Reason for Visit Reason for Visit: Diagnoses [...] 78.6 H, Lymph % (Auto) 10.0 L, Navarro % (Auto) 9.7, Eos % (Auto) 1.0, [...] 91.8 H, Lymph % (Auto) 5.0 L, Navarro % (Auto) 2.0, Eos % (Auto) 0.0, [...] Signed: Chidi Dillon MD at 16:05 EDT Reading Location ID and State: [facility] / [place] , Service support , Physical Exam Const alert and oriented [...] CPAP, GERD and anxiety/depression who presented to [facility] on 07/08 with worsening dyspnea. 1. [...] 35 minutes. Charges/Coding Visit Charges Inpatient E&M: 29748 Subs Hosp L2 07/09/23 1521 <Electronically signed by Preston Pineda DO> Cosigner Signature (if applicable): CC: ~ Signed [facility] Work Phone: 1(971) 528-678308-14-2023 Discharge summary Author Archie Gamino [facility] July 09, 2023 12:44am Note Date/Time July 08, 2023 3: 24pm [facility] Medical Records Department [address] [place] [address] Emergency Department Summary 07/08/23 MR#: [id number] Acct: [id number] Name: PIPER CLARK Rep #:[id number] : 1955 67 From: Archie Lopez PCP: Dr. Christy Perea MD Status:ADM IN Location: [place] [address] HPI History of Present Illness Chief Complaint: [...] states that she was on vacation in [place] when thisbegan. Patient states it is gradually gotten worse. Patient states she drove back from [place]. Patient states her breathing is worse with [...] or PE, Recent immobilization or [facility] Medical History Arthritis Cellulitis and abscess of [...] 78.6 H Lymph % (Auto) 10.0 L Navarro % (Auto) 9.7 Eos % (Auto) 1.0 [...] sinus rhythm with a rate of 90. [place] interval, QRS interval, and QTc intervals were all normal. [place] was normal. There are no acute ST [...] Provider] - Disposition Disposition: Acute Care Hospital [facility] What to do if you have Problems For any increased pain, shortness of breath, bleeding, nausea or vomiting, chestpain, or any unexpected problems, contact your Primary Care Provider. Call [facility] ([phone]) or report to the closest Emergency Room. Call 911 if necessary. 07/09/23 0044 <Electronically signed by Archie Gamino DO> Cosigner Signature (if applicable): CC: Dr. Christy Perea MD ~ Signed [facility] Work Phone: 1(622) 405-378008-13-2023 History and physical note Author Geoff Galvan [facility] July 08, 2023 8:15pm Note Date/Time July 08, 2023 5: 20pm [facility] Medical Records Department [address] [place] [address] H&P Exam - Hospitalist 07/08/231715 MR#: [id number] Acct: [id number] Name: PIPER CLARK Rep #:[id number] : 1955 67 From: Geoff mora MD PCP: Dr. Christy Perea MD Status:ADM IN Location: [facility] SQ613-5 HPI - General General Date of Admission: 07/08/23 HPI Narrative PIPER CLARK, is a 67 F who presents to the hospital with shortness of breath. This started 4 to 5 days ago while she was in [place] for family reunion. She has been noticing [...] wears oxygen at night through her CPAP. [facility] Medical History (Updated 07/08/23 @ 19:53 by [...] 78.6 H, Lymph % (Auto) 10.0 L, Navarro % (Auto) 9.7, Eos % (Auto) 1.0, [...] Perea MD; Dr. Geoff Galvan MD~ Signed [facility] Work Phone: 1(525) 656-303308-25-2022 Miscellaneous Notes* Telephone Encounter - Stephany Lind [...] questions. Bhavik ZAMORANO, RN PH & HHT Separator Operator Respiratory [place] [facility] documented in this encounterPromedica Bay Park Hospital08-24-2022 NoteHNO ID: [id number] Author: Lorne Newell MD Service: ? Author [...] meds. Access site: Right internal jugular vein [place] Evelia size: 7.5 F. Anesthesia: Lidocaine 1% Procedure Narrative: Consent was obtained. Time out taken. Performed at procedure room in 1. Under sterile condition, lidocaine 1 % (5 ml) was applied and under US guidance a 8.5 F introducer was inserted without difficulty. Wire was noted to be located in the SVC under fluoroscopy. A [place]Evelia catheter was advanced to the right pulmonary artery without difficulties (RA, RV, PA pressures were measured). Wedge was obtained and confirmed to be appropriate by fluoroscopy (stable catheter) and blood gas analysis. Mixed venous blood was obtained for indirect Oliiva determination. CO was determined by thermodilution and [...] MD on July 19, 2022 at 4:01 PM.[facility]08-24-2022 History of Present illness Narrative* [...] meds. Access site: Right internal jugular vein [place] Evelia size: 7.5 F. Anesthesia: Lidocaine 1% Procedure Narrative: Consent was obtained. Time out taken. Performed at procedure room in 1. Under sterile condition, lidocaine 1 % (5 ml) was applied and under US guidance a 8.5 F introducer was inserted without difficulty. Wire was noted to be located in the SVC under fluoroscopy. A [place]vel[place] catheter was advanced to the right pulmonary [...] 2022 at 4:01 PM. documented in this encounterPromedica Bay Park Hospital08-16-2022 Miscellaneous Notes* Telephone Encounter - Orlando Simpson MA - 07/11/2022 10:22 AM EDTSummary: Appointment Confirmation Called patient to confirm her RHC with Dr. Newell on 07/19 at 4pm. No answer, left VM. Orlando Simpson Clinical Slasher Hand [facility] Respiratory [place] documented in this encounterPromedica Bay Park Hospital08-05-2022 NoteHNO ID: [id number] Author: Lorne Newell MD Service: ? Author Type: Physician Type: Progress Notes Filed: 06/30/2022 4:11 PM Note Text: VIRTUAL VISIT PROGRESS NOTE This is a virtual visit using [employer] video visit. It required patient-provider interaction for [...] oxygen desaturation at night 86%. Lives in [place] (1.5 hours from the clinic). No chest [...] is a 66 yo woman exsmoker with IWNIFRED, GERD (hiatal hernia), severe COPD who was [...] which included preparing to see the patient, [id number] patient care, completing clinical documentation, obtaining and/or reviewing separately obtained history and ordering medications, tests, or procedures I will report my final recommendations back to the requesting physician by way of shared medical record or letter via US mail. Lorne Newell MD (more content not included)...[facility] 06-30-2022 History of Present illness Narrative* Lorne Newell MD - 06/30/2022 4:00 PM EDT Images from the original note were not included. VIRTUAL VISIT PROGRESS NOTE This is a virtual visit using [employer] video visit. It required patient-provider interaction for [...] oxygen desaturation at night 86%. Lives in [place] (1.5 hours from the clinic). No chest [...] which included preparing to see the patient, [id number] patient care, completing clinical documentation, obtaining and/or reviewing separately obtained history and ordering medications, tests, or procedures I will report my final recommendations back to the requesting physician by way of shared medical record or letter via US mail. Lorne Newell MD June 30, 2022 documented in this encounterPromedica Bay Park Hospital08-02-2022 NoteHNO ID: [id number] Author: Naa Croft APRN.BEVERAGE DISTILLER Service: ? Author Type: Nurse Practitioner Type: [...] order VQ Scan and RHC. Naa Croft APRN.[facility]08-02-2022 History of Present illness Narrative* [...] RHC. Naa Croft APRN.MOSHE documented in this encounterPromedica Bay Park Hospital07-11-2022 Miscellaneous Notes* Telephone Encounter - Orlando Simpson MA - 06/05/2022 10:50 AM EDTSummary: Care Coordination Called patient to schedule her RHC with Dr. Newell on 07/19/2022 at 4pm. NPO 4 hours pre-procedure. Anticoagulation: None at this time Must have a tank driver for transportation post procedure. May take other medications as prescribed prior to procedure. Check in at desk G-11 at 3:30pm Orlando Simpson Clinical Slasher Hand [facility] Respiratory [place] documented in this encounterPromedica Bay Park Hospital07-08-2022 Miscellaneous Notes* Telephone Encounter - Orlando Simpson MA - 06/02/2022 9:35 AM EDTSummary: Care Coordination Called patient to schedule her RHC with Dr. Newell. No answer, left VM. Orlando Simpson Clinical Slasher Hand [facility] Respiratory [place] documented in this encounterPromedica Bay Park Hospital06-23-2022 Miscellaneous Notes* Telephone Encounter - Devonte Dealexa - 05/18/2022 1:[address] Mitchell Brian contacted Mic Webber MD for a RHC. Dr. Webber does not perform RHC's and has deferred to Dr. Newell. I am requesting recent office notes from office: [phone] documented in this encounterPromedica Bay Park HospitalConsult note Author Lesly King [facility] July 10, 2023 1:41pm Note Date/Time July 10, 2023 1: 41pm [facility] Medical Records Department [address] [place] [address] Counseling Note - Pharmacy 07/10/23 1340 MR#: [id number] Acct: [id number] Name: PIPER CLARK Rep #:[id number] : 1955 67 From: Lesly King PCP: Dr. Christy Perea MD Status:ADM [facility] has performed discharge medication reconciliation [...] understanding of their dischargemedications. Patient counseled by pharmacy laboratory technicianAna. Medications at Discharge Home Medications calcium carbonate [...] Signature (if applicable): Date CC: ~ Signed [facility] Work Phone: Consult note Author Lesly King [facility] Note Date/Time March 24, 2025 3:4 0pm [facility] Medical Records Department [address] [place] [address] Counseling Note - Pharmacy 03/24/25 1345 MR#: [id number] Acct: [id number] Name: PIPER CLARK Johan Rep #:[id number] : 1955 69 From: Lesly King PCP: Dr. Genia Chappell MD Status:ADM IN Y Location: [facility] [id number]- [id number] Pharmacy [facility] Pharmacy Service has performed discharge medication reconciliation [...] 03/24/25 03/24/25 1345 <Electronically signed by Lesly iKng> Date _ Lesly Vick Signature (if applicable): Date CC: ~ Signed [facility] Work Phone: Discharge summary Author Preston Pineda [facility] July 10, 2023 12:55pm Note Date/Time July 10, 2023 12 :49pm [facility] Medical Records Department [address] [place] [address] Instructions for Home/Discharge Instructions 07/10/23 1247 MR#: [id number] Acct: [id number] Name: PIPER CLARK Rep #:[id number] : 1955 67 From: Preston Mckeon kate CASTANEDA PCP: Dr. Christy Perea MD Status:ADM IN [...] PCP as needed, and follow-up with your manager discovery in the next 4 to 6 weeks. [...] MD; Dr. Geoff Galvan MD ~ Signed [facility] Work Phone: evaluation note* Diagnosis Onset Date Resolution Status Acute sinusitis acute [facility] Work Phone: Evaluation note* Diagnosis Other secondary pulmonary hypertension (HCC) documented in this encounter [facility] note* Diagnosis Stage 3 severe COPD by GOLD classification ([facility]) Abnormal echocardiogram Nonspecific (abnormal) findings on radiological and other examination of other intrathoracic organs documented in this encounter [facility] note* Diagnosis Stage 3 severe COPD by GOLD classification (HCC)- Primary documented in this encounter [facility] note* Diagnosis Pulmonary hypertension (HCC)- Primary Other chronic pulmonary heart diseases documented in this encounter [facility] noteNo assessment information availableWSelect Medical Specialty [facility], [facility] Work Phone: Evaluation note* Diagnosis Onset Date Resolution Status Acute respiratory failure with hypoxia acute Hypoxia acute COPD exacerbation chronic [facility] Work Phone: Evaluation note* Diagnosis Onset Date Resolution Status Acute respiratory failure with hypoxia acute COPD exacerbation chronic Hypoxia resolved [facility] Work Phone: Evaluation note* Diagnosis Onset Date Resolution Status Atrial fibrillation chronic Chronic airway obstruction c hronic Hypertension chronic Morbid obesity chronic Sleep apnea chronic [facility] Work Phone: Reason for referral (narrative)* Diagnostic Procedure Only (Routine) - Pending Review Specialty Diagnoses / Procedures Referred By Contac t Referred To Contact MOLECULAR & FUNCTIONAL IMAGING Diagnoses Other secondary pulmonary hypertension (HCC) Procedures NM LUNG VENT / PERF VQ PULMONARY VENTILATION & PERFUSION IMAGING Rachel Seaman APRN.CNS [address] [facility] [address] [place], [place] [id number] Molecular & Functional Imaging [address] [place] [address] Referral ID Status Reason Start Date Expiration Date Visits Requested Visits Authorized [id number] Pending Review Auto-Generat ed Referral 05/19/2022 06/18/2023 1 1 [facility] for referral (narrative)No reason for referral information availableWSelect Medical Special[facility] Work Phone: Chief Complaint and Reason for [...] Chronic Obstructive Pulmonary Disease (COPD) J44.9 TACHYCARDIA ([facility]) COPD Reason for Visit Atrial fibrillation Chronic airway obstruction Hypertension Morbid obesity Sleep apnea Chief Complaint Chronic Obstructive Pulmonary Disease (COPD) J44.9 tachycardia Chronic Obstructive Pulmonary Disease (COPD) J44.9 TACHYCARDIA ([facility]) COPD AZAR AZAR COPD Reason for Visit Atrial fibrillation Chronic airway obstruction Hypertension Morbid obesity Sleep apnea Chief Complaint Chronic Obstructive Pulmonary Disease (COPD) J44.9 tachycardia Chronic Obstructive Pulmonary Disease (COPD) J44.9 TACHYCARDIA ([facility]) COPD AZAR AZAR COPD E ORDERS [...] Admit Date Fracture of left shoulder December 04, 2 025 1:43pm Acute dyspnea March 19, 2025 [...] Sleep apnea April 30, 2025 2:23p m Chief Complaint Admit Date AE COPD [...] M FU April 30, 2025 2:23p m abnormal labs May 06, 2025 2:28 am HYPOKALEMIA/CONTRACTION ALKALOSIS April 262024 2:36am Reason for Visit Admit Date Morbid obesity [...] 262024 11:26pm Chronic anticoagulation April 05, 2025 1:26pm Elevated brain natriuretic peptide (BNP) level [...] Sleep apnea April 30, 2025 2:23p m Acute confusion May 06, 2025 2:36 am Acute hypokalemia May 06, 2025 2:36 am Alkalosis May 06, 2025 2:36 am Metabolic alkalosis Chana 11th, 2025 2:36 am Respiratory acidosis May 06, 2025 2:3 6am Weakness May 06, 2025 2:36 am Chronic respiratory failure with hypoxia and hypercapnia May 06, 2025 2:36am COPD (chronic obstructive pulmonary dise ase) May 06, 2025 2:36am Family History Relationship Condition Age at Onset [...] Will No December 02 12:53pm Power of Night Order Selector No December 02 12:53pm Advance Directive Response Recorded Date/ Time Living Will No December 02 11:53am Power of Night Order Selector No December 02 11:53am Advance Directive Response Recorded Date/ Time Name of Medical Power of Night Order Selector Juvenal Clark July 08, 2023 7:47pm Living Will Yes July 08 7:47pm Power of Night Order Selector Yes July 08 023 7:47pm Advance Directive Response Recorded Date/ Time Advance Directives on File No Dece2022 2:32pm Living Will Yes November 14, 023 2:47pm Power of Night Order Selector Yes November 14, 2023 2:47pm Advance Directive Response Recorded Date/ Time Advance Directives on File No Decem 2022 2:32pm Living Will Yes January 21, 024 2:01pm Power of Night Order Selector No January 21, 2024 2:01pm Advance Directive Response Recorded Date/ Time Advance Directives on File No Decem 2022 3:32pm Living Will Yes January 21, 024 3:01pm Power of Night Order Selector No January 21, 2024 3:01pm Advance Directive Response Recorded Date/ Time Living Will Yes January 21, 024 3:01pm Power of Night Order Selector No January 21, 2024 3:01pm Advance Directive Response Recorded Date/ Time Living Will Yes August 18, 2024 10:21am Do you have a Healthcare Power of Night Order Selector? Yes August 18, 2024 10:21am Advance Directives Yes July 10:21am Advance Directive Response Recorded Date/ Time Living Will Yes August 18, 2024 10:21am Do you have a Healthcare Power of Night Order Selector? Yes August 18, 2024 10:21am Do you have a Healthcare Power of Night Order Selector? No March 19, 2025 10:53pm Advance Directives Yes July 10:21am Advance Directive Response Recorded Date/ Time Living Will Yes August 18, 2024 10:21am Do you have a Healthcare Power of Night Order Selector? Yes August 18, 2024 10:21am Do you have a Healthcare Power of Night Order Selector? No March 25, 2025 11:48am Do you have a Healthcare Power of Night Order Selector? No March 19, 2025 10:53pm Advance Directives Yes July 10:21am Advance Directive Response Recorded Date/ Time Do you have a Healthcare Power of Night Order Selector? No March 25, 2025 11:48am Do you have a Healthcare Power of Night Order Selector? No March 19, 2025 10:53pm Advance Directives Yes July 10:21am Advance Directive Response Recorded Date/ Time Do you have a Healthcare Power of Night Order Selector? No March 25, 2025 11:48am Do you have a Healthcare Power of Night Order Selector? No March 19, 2025 10:53pm Do you have a Healthcare Power of Night Order Selector? Yes April 05, 2025 8:31pm Advance Directives Yes July 10:21am Advance Directive Response Recorded Date/ Time Do you have a Healthcare Power of Night Order Selector? No March 25, 2025 11:48am Do you have a Healthcare Power of Night Order Selector? No March 19, 2025 10:53pm Do you have a Healthcare Power of Night Order Selector? Yes April 06, 2025 12:21am Advance Directives Yes July 10:21am Advance Directive Response Recorded Date/ Time Do you have a Healthcare Power of Night Order Selector? No March 25, 2025 11:48am Do you have a Healthcare Power of Night Order Selector? No March 19, 2025 10:53pm Do you have a Healthcare Power of Night Order Selector? Yes April 06, 2025 12:21am Do you have a Healthcare Power of Night Order Selector? Yes May 06, 2025 12:03am Advance Directives Yes July 10:21am Summary Purpose [...] or prosecute any alcohol or drug abuse patient.[facility] HospitalIn the event this information is protected by the Federal Confidentiality of Alcohol and Drug Abuse Patient Records regulations: The Federal rules restrict any use of the information to criminally investigate or prosecute any alcohol or drug abuse patient.[facility] HospitalIn the event this information is protected by the Federal Confidentiality of Alcohol and Drug Abuse Patient Records regulations: The Federal rules restrict any use of the information to criminally investigate or prosecute any alcohol or drug abuse patient.[facility] HospitalIn the event this information is protected by the Federal Confidentiality of Alcohol and Drug Abuse Patient Records regulations: The Federal rules restrict any use of the information to criminally investigate or prosecute any alcohol or drug abuse patient.[facility] HospitalIn the event this information is protected by the Federal Confidentiality of Alcohol and Drug Abuse Patient Records regulations: The Federal rules restrict any use of the information to criminally investigate or prosecute any alcohol or drug abuse patient.[facility] HospitalIn the event this information is protected by the Federal Confidentiality of Alcohol and Drug Abuse Patient Records regulations: The Federal rules restrict any use of the information to criminally investigate or prosecute any alcohol or drug abuse patient.[facility] HospitalIn the event this information is protected by the Federal Confidentiality of Alcohol and Drug Abuse Patient Records regulations: The Federal rules restrict any use of the information to criminally investigate or prosecute any alcohol or drug abuse patient.[facility] HospitalIn the event this information is protected by the Federal Confidentiality of Alcohol and Drug Abuse Patient Records regulations: The Federal rules restrict any use of the information to criminally investigate or prosecute any alcohol or drug abuse patient.[facility] the event this information is protected by the Federal Confidentiality of Alcohol and Drug Abuse Patient Records regulations: The Federal rules restrict any use of the information to criminally investigate or prosecute any alcohol or drug abuse patient.[facility] the event this information is protected by the Federal Confidentiality of Alcohol and Drug Abuse Patient Records regulations: The Federal rules restrict any use of the information to criminally investigate or prosecute any alcohol or drug abuse patient.[facility] the event this information is protected by the Federal Confidentiality of Alcohol and Drug Abuse Patient Records regulations: The Federal rules restrict any use of the information to criminally investigate or prosecute any alcohol or drug abuse patient.[facility] Reason for Visit (unrecogniz ed section and content) Reason Comments Request Outside Medical Records Reason Comments Care Coordination Reason Comments Abstract Reason Comments Appointment Confirmation Reason Comments Separator Operator - Other Care Teams (unrecognized sec tion and content) Cargo Tank Mechanic Relationship Specialty Start Date [place] [address] Claims Agent Right Of Way Internal Medicine 06/06/22 Cargo Tank Mechanic Relationship Specialty Start Date End Date Mitchell Brian V [address] [place] [address] Claims Agent Right Of Way Internal Medicine 06/06/22 Cargo Tank Mechanic Relationship Specialty Start Date End Date Mitchell Brian V [address] [place] [address] Claims Agent Right Of Way Internal Medicine 06/06/22 Cargo Tank Mechanic Relationship Specialty Start Date End Date Mitchell Brian V [address] [place] [address] Claims Agent Right Of [address] Internal Medicine 06/06/22 Cargo Tank Mechanic Relationship Specialty Start Date End Date Mitchell Brian V [address] [place] [place] [address] Claims [address] Of [address] Internal Medicine 06/06/22 Team Status: Active Member [...] vider Active Dr. Preston Pineda DO Attending Provider, Other Provider Active Team Status: Inactive Member Role Status Dates Dr. Christy Perea MD Primary Care Provider Active Dr. Archie Gamino DO Emergency Provider Active Dr. Geoff Galvan MD Admit Provider, Other Pro vider Active Dr. Preston Pinead DO Attending Provider Active Team Status: Inactive Member Role Status Dates Dr. Christy Perea MD Primary Care Provider Active Dr. Mitchell Brain MD Attending Provider Active Team Status: Inactive [...] 2024 End: December 25, 2024 Azael Ashton MEDICAL ASSISTANT CARDIOLOGY, MEDICAL ASSISTANT CARDIOLOGY-C Attending Provider Active Start: December 25, 2024 End: December 25, 2024 Azael Ashton MEDICAL ASSISTANT CARDIOLOGY, MEDICAL ASSISTANT CARDIOLOGY-C Referring Provider Active Start: December 25, 2024 [...] 2025 End: March 18, 2025 Becca Dillard MEDICAL ASSISTANT CARDIOLOGY, MEDICAL ASSISTANT CARDIOLOGY-C Attending Provider Active Start: March 18, 2025 End: March 18, 2025 Becca Dillard MEDICAL ASSISTANT CARDIOLOGY, MEDICAL ASSISTANT CARDIOLOGY-C Referring Provider Active Start: March 18, 2025 [...] , DO Other Provider Active Start: March 19, 2025 [...] Provider Active Start: March 21, 2025 Dr. Orlanod Bolden , DO Other Provider Active Start: [...] Team Status: Inactive Member Role Status Dates Arion Dona , MD Primary Care Provider Active St art: [...] St art: April 03, 2025 Becca Dillard MEDICAL ASSISTANT CARDIOLOGY, MEDICAL ASSISTANT CARDIOLOGY-C Attending Provider Active Start: April 03, 2025 Becca Dillard MEDICAL ASSISTANT CARDIOLOGY, MEDICAL ASSISTANT CARDIOLOGY-C Referring Provider Active Start: April 03, 2025 [...] 2025 End: April 03, 2025 Becca Dillard MEDICAL ASSISTANT CARDIOLOGY, MEDICAL ASSISTANT CARDIOLOGY-C Attending Provider Active Start: April 03, 2025 End: April 03, 2025 Becca Dillard MEDICAL ASSISTANT CARDIOLOGY, MEDICAL ASSISTANT CARDIOLOGY-C Referring Provider Active Start: April 03, 2025 End: April 03, 2025 Team Status: Active Member Role Status Yonatan Chappell MD Primary Care Provider Active St art: April 05, 2025 Dr. Andi Ortiz MD Emergency Provider Active Start: April 05, 2025 Dr. Orlando Bolden , Admit Provider Active Start: April 05, 2025 Dr. Orlando Bolden DO Referring Provider Active Start: April 05, 2025 Dr. Orlando Bolden , Other Provider Active Start: April 05, 2025 [...] Start: April 09, 2025 Dr. Orlando Bolden , Admit Provider Active Start: April 09, 2025 [...] 2025 End: April 21, 2025 Becca Dillard MEDICAL ASSISTANT CARDIOLOGY, MEDICAL ASSISTANT CARDIOLOGY-C Attending Provider Active Start: April 21, 2025 End: April 21, 2025 Becca Dillard MEDICAL ASSISTANT CARDIOLOGY, MEDICAL ASSISTANT CARDIOLOGY-C Referring Provider Active Start: April 21, 2025 [...] April 30, 2025 End: April 30, 2025 Team Status: Active Member Role Status Dates Genia Chappell MD Primary Care Provider Active St art: May 06, 2025 Dr. Que Greene DO Emergency Provider Active Start: May 06, 2025 Dr. Vannesa Camejo DO Attending Provider Active S tart: May 06, 2025 Team Status: Active Member Role Status Dates Genia Chappell MD Primary Care Provider Active St art: May 06, 2025 Dr. Que Greene DO Emergency Provider Active Start: May 06, 2025 Dr. Vannesa Camejo DO Admit Provider Active Start : May 06, 2025 Dr. Vannesa Camejo DO Attending Provider Active S tart: May 06, 2025 INFORMATION SOURCE (unrecogn ized section and content) DATE CREATED AUTHOR 07/23/2022 [facility] DATE CREATED AUTHOR 'S ORGANIZ ATION 05/01/2025 [facility] FOR RECORDS PERTAINING TO PATIENTS WHO ARE [...] BE BASED ON THE PRIMARY CLINICAL RECORDS. [employer] provides no warranty or guarantee of the accuracy or completeness of information in this document.
--- NOTE | 2025-05-06 20:59 | CPS ---
Patient set up with own PAP machine brought from home for the night.
[2025-05-06] MEDS: Fluticasone 0.05% 1 SPRAY NASAL.SRY 2 SPRAY NASAL (22:47)
[2025-05-06] MEDS: Montelukast 10 MG Tablet PO (22:48)
[2025-05-07] VITALS (8 sets, daily range): BP systolic 132–152; BP diastolic 48–72; PULSE 72–85; RESP 16–20; TEMP 36.7; O2SAT 92–99
[2025-05-07 04:47] LABS: Absolute Lymphocyte Count 1.75 X10^3/uL (0.83-4.51); Absolute Neutrophil Count 8.4 X10^3/uL (2.0-7.7); Basophil# 0.08 X10^3/uL; Basophil% 0.7 % (0-1); Eosinophil# 0.23 X10^3/uL; Eosinophils% 1.9 % (0-5); Hematocrit 40.1 % (37-47); Hemoglobin 12.1 g/dL (12.0-15.0); Lymphocyte # 1.75 X10^3/ul (0.83-4.51); Lymphocyte % 14.6 % (19-41); Mean Corp Hgb Conc 30.2 g/dL (32-36); Mean Corpuscular Hgb 28.7 pg (27.0-32.0); Mean Platelet Vol. 9.3 fl (6.2-12.0); Monocyte# 1.41 X10^3/uL; Monocyte% 11.7 % (0-10); NRBC Flagged by Analyzer 0 % (0-5); Neutrophil # 8.36 X10^3/uL (2.7-7.7); Neutrophil % 69.6 % (47-70); Platelet Count 362 K/mm3 (150-450); RBC Distribution Width CV 15.5 % (11.6-14.6); RBC Distribution Width SD 53.5 fl (35.1-43.9); Red Blood Count 4.22 M/mm3 (4.2-5.4)
[2025-05-07 05:15] LABS: ALB/GLOB Ratio 1.2 RATIO (0.9-2.4); AST(SGOT) 23 U/L (<=31); Alanine Aminotransfer ALT/SGPT 16 U/L (<=34); Albumin, Serum 3.4 g/dL (3.4-4.8); Alkaline Phosphatase 73 U/L (35-104); Anion Gap 11 (5-15); BUN 18 mg/dL (4-19); Calcium,Total 9.7 mg/dL (7.6-11.0); Carbon Dioxide 37.5 mmol/L (21.0-32.0); Chloride 87 mmol/L (98-108); Creatinine, Serum 0.83 mg/dL (0.70-1.20); EST Glomerular Filtration Rate 75 (>60); Estimated Creatinine Clearance 69.54 ml/min (50-250); Globulin 2.9 g/dL (2.2-4.2); Glucose 102 mg/dL (70-99); Potassium 3.4 mmol/L (3.3-5.1); Protein, Total 6.4 g/dL (5.9-8.4); Sodium Level 136 mmol/L (133-145); Total Bilirubin 0.48 mg/dL (0.00-1.30)
[2025-05-07] MEDS: APIXABAN 5 MG TABLET PO ×2 (08:45→22:15)
[2025-05-07] MEDS: Metoprolol Tartrate 50 MG Tablet PO ×2 (08:45→22:15)
[2025-05-07] MEDS: Digoxin 250 MCG Tablet PO (08:45)
[2025-05-07] MEDS: DULoxetine Hcl 60 MG Capsule PO (08:45)
[2025-05-07] MEDS: Potassium Chloride Oral Tablet 20 MEQ PO (08:46)
[2025-05-07] MEDS: Empagliflozin 25 MG Tablet PO (08:46)
--- NOTE | 2025-05-07 09:12 | CASEMGMT ---
SULLIVAN Met with patient to complete SULLIVAN form. SULLIVAN form and its content were verbally explained and patient's questions were answered to the best of my ability.? Patient voiced understanding and signed SULLIVAN form.? Patient provided a copy of signed SULLIVAN form and original placed in patient's chart.? Patient had no further questions. Rebeka Ly, Discharge Planning Asst
[2025-05-07 11:58] LABS: Bacteria 0 SEEN /hpf (None Seen); Color, Urine Yellow (Yellow); Glucose, Dipstick 1000 mg/dl (Normal); Ketone-Dipstick Negative (Negative); Leukocyte Esterase-Dipstick Negative /ul (Negative); Mucous, Urine 0 SEEN /hpf (<or=2+); Nitrite-Dipstick Negative (Negative); Occult Blood-Urine Negative /ul (Negative); Protein-Dipstick Negative (Negative); Red Blood Cells-Urine 0 SEEN /hpf (0-5); Urine Bilirubin Dipstick Negative (Negative); Urine Clarity Clear (Clear); Urine Urobilinogen Normal (Normal); White Blood Cells 0 SEEN /hpf (0-5)
[2025-05-07 11:59] LABS: Squamous Epithelial Cells - UA 0-5 SEEN /hpf (5-10)
--- NOTE | 2025-05-07 14:51 | PN_ITS ---
Subjective Subjective Patient seen and examined. She said she felt a bit better today. She denied any lightheadedness, dizziness, palpitations, nausea, vomiting or any other symptoms. Review of systems is otherwise negative. Objective Data Objective Data Vital Signs: Vital Signs Temp Pulse Resp BP Pulse Ox O2 Del Method O2 Flow Rate 98.1 F 79 17 132/48 H 94 Nasal Cannula 4 05/07/25 04:00 05/07/25 08:45 05/07/25 09:25 05/07/25 04:00 05/07/25 04:00 05/07/25 09:25 05/07/25 09:25 FiO2 35 05/06/25 06:22 Oxygen Flow Rate (L/min) 4 Oxygen Delivery Method Nasal Cannula Weight: 224 lb 13.944 oz Body Mass Index (BMI) 41.1 Intake & Output: Intake and Output for Last 24 Hours 05/05/25 05/06/25 05/07/25 23:59 23:59 23:59 Intake Total 1025.33 / 1025.33 Output Total 450 / 450 400 / 400 Balance 575.33 / 575.33 -400 / -400 Lab / Micro Data 05/07/25 04:15 05/07/25 04:15 Labs: Laboratory Results - last 24 hr 05/06/25 11:38: Urine Color Cancelled, Urine Clarity Cancelled, Urine pH Cancelled, Ur Specific [place] Cancelled, U Specif Grav (Refrac) Cancelled, Urine Protein Cancelled, Urine Glucose (UA) Cancelled, Urine Ketones Cancelled, Urine Occult Blood Cancelled, Urine Nitrite Cancelled, Urine Bilirubin Cancelled, Urine Urobilinogen Cancelled, Ur Leukocyte Esterase Cancelled, Urine RBC Cancelled, Urine WBC Cancelled, Ur Squamous Epith Cells Cancelled, Ur Transition Epith Cell Cancelled, Ur Renal Epithelial Cell Cancelled, Calcium Oxalate Crystal Cancelled, Uric Acid Crystals Cancelled, Triple Phos Crystals Cancelled, Other Crystals Cancelled, Amorphous Sediment Cancelled, Urine Bacteria Cancelled, Hyaline Casts Cancelled, Fine Granular Casts Cancelled, Coarse Granular Casts Cancelled, Waxy Casts Cancelled, RBC Casts Cancelled, WBC Casts Cancelled, Urine Mucus Cancelled, Urine Trichomonas Cancelled, Urine Yeast Cancelled 05/06/25 18:30: Sodium 137, Potassium 3.9, Chloride 85 L, Carbon Dioxide 45.0 H, Anion Gap 7, BUN 19, Creatinine 1.02, Estim Creat Clear Calc 56.59, Est GFR (MDRD) Non-Af 59 L, BUN/Creatinine Ratio 18.4, Glucose 178 H, Calcium 9.9 05/07/25 04:15: WBC 12.0 H, RBC 4.22, Hgb 12.1, Hct 40.1, MCV 95.0, MCH 28.7, M CHC 30.2 L, RDW Std Deviation 53.5 H, RDW Coeff of Beena 15.5 H, Plt Count 362, MPV 9.3, Immature Gran % (Auto) 1.500 H, Neut % (Auto) 69.6, Lymph % (Auto) 14.6 L, [place] % (Auto) 11.7 H, Eos % (Auto) 1.9, Baso % (Auto) 0.7, Absolute Neuts (auto) 8.4 H, Absolute Lymphs (auto) 1.75, Nucleated RBC % 0, Sodium 136, Potassium 3.4, Chloride 87 L, Carbon Dioxide 37.5 H, Anion Gap 11, BUN 18, Creatinine 0.83, Estim Creat Clear Calc 69.54, Est GFR (MDRD) Non-Af 75, B UN/Creatinine Ratio 22.0 H, Glucose 102 H, Calcium 9.7, Phosphorus 3.0, Total Bilirubin 0.48, AST 23, ALT 16, Alkaline Phosphatase 73, Total Protein 6.4, Albumin 3.4, Globulin 2.9, Albumin/Globulin Ratio 1.2 05/07/25 11:38: Urine Color Yellow, Urine Clarity Clear, Urine pH 8.0, Ur Specific [place] 1.010, Urine Protein Negative, Urine Glucose (UA) 1000 H, Urine Ketones Negative, Urine Occult Blood Negative, Urine Nitrite Negative, Urine Bilirubin Negative, Urine Urobilinogen Normal, Ur Leukocyte Esterase Negative, Urine RBC 0 SEEN, Urine WBC 0 SEEN, Ur Squamous Epith Cells 0-5 SEEN, Urine Bacteria 0 SEEN, Urine Mucus 0 SEEN Physical Exam Const alert, oriented x3 and no apparent distress Constitutional Narrative: Weak and frail. Class III obesity General Appearance: cooperative HEENT normocephalic, head/scalp atraumatic, hearing grossly normal bilaterally, moist oral mucous membranes and oropharynx normal Eyes PERRL and EOMs intact bilaterally Neck supple and no JVD Lymph Lymphatic: no lymphedema noted Resp Resp Narrative: mildly diminished breath sounds bibasally, no wheezes or crackles. On 4L oxygen which is her baseline. Cardio regular rate, regular rhythm, S1 normal heart sound, S2 normal heart sound and no murmurs GI normal to inspection, nondistended, normoactive bowel sounds, soft to palpation, non-tender and non-distended GI Narrative: obese abdomen Extremity normal capillary refill Extremity Narrative: Trace bilateral lower extremity edema, pedal pulses and radial pulses are 2+, no clubbing or cyanosis General Extremity: no tenderness to palpation of joints or extremities Skin General Skin Exam: no breakdown Neuro oriented x3, CN's II-XII intact bilaterally, moves all extremities, no focal motor deficits and no sensory deficits noted Motor Exam: general weakness Psych thought process normal and cooperative Appearance: appropriate Mood & Affect: flat affect Assessment & Plan Assessment/Plan (1) Weakness: (2) Acute hypokalemia: PLAN: Plan #Debility and weakness due to acute hypokalemia with contraction alkalosis * hypokalemia has resolved. K today is 3.4 and went up to 3.9 yesterday. * Metolazone and Lasix on hold. * She did receive a dose of Diamox in the ED also. Bicarb today is 37.5. It was up to 45 yesterday and at the time she came to the ED was more than 50. * PT OT on board. Fall precautions. #Acute encephalopathy likely due to metabolic derangement: * Resolved. Patient now at her baseline. #Chronic respiratory failure: * On 4 L of oxygen chronically at home. * She also has chronically elevated pCO2 * Breathing treatments bronchodilators. Titrate oxygen to maintain saturation above 90%. #WINIFRED: On BiPAP nightly #History of COPD: Not in exacerbation. Breathing treatments bronchodilators. #History of atrial fibrillation: On metoprolol and Eliquis. Also on digoxin. #Benign essential hypertension: On metoprolol #Nonobstructive CAD: Stable. #Chronic heart failure preserved ejection fraction: * Not in exacerbation. On Jardiance. Lasix and metolazone on hold due to hypokalemia. * Lasix echo showed EF of 65%. * resume lasix today with potassium supplementation * #History of migraines: Stable #DVT prophylaxis: On Eliquis CODE STATUS: Full code Charges/Coding Visit Charges Inpatient E&M: 11150 Subs Hosp L2
[2025-05-07] MEDS: Ipratropium/Albuterol Sulfate 3 ML AMPUL.NEB INHALATION (19:29)
[2025-05-07] MEDS: Budesonide Respules 0.5 MG/2 ML AMPUL.NEB. INHALATION (19:29)
--- NOTE | 2025-05-07 20:39 | CPS ---
Patient set up with own PAP machine for the night.
[2025-05-07] MEDS: 0.9% Saline Lock 10 ML Syringe IV (22:15)
[2025-05-07] MEDS: Fluticasone 0.05% 1 SPRAY NASAL.SRY 2 SPRAY NASAL (22:15)
[2025-05-07] MEDS: Montelukast 10 MG Tablet PO (22:15)
[2025-05-08 04:02] VITALS: BP 125/65; PULSE 75; RESP 17; TEMP 36.2; O2SAT 97
[2025-05-08 07:45] LABS: Absolute Lymphocyte Count 1.82 X10^3/uL (0.83-4.51); Absolute Neutrophil Count 9.3 X10^3/uL (2.0-7.7); Basophil# 0.07 X10^3/uL; Basophil% 0.5 % (0-1); Eosinophil# 0.08 X10^3/uL; Eosinophils% 0.6 % (0-5); Hematocrit 37.5 % (37-47); Hemoglobin 11.6 g/dL (12.0-15.0); Lymphocyte # 1.82 X10^3/ul (0.83-4.51); Lymphocyte % 14.1 % (19-41); Mean Corp Hgb Conc 30.9 g/dL (32-36); Mean Corpuscular Hgb 28.8 pg (27.0-32.0); Mean Corpuscular Volume 93.1 fL (81-99); Mean Platelet Vol. 9.3 fl (6.2-12.0); Monocyte# 1.42 X10^3/uL; NRBC Flagged by Analyzer 0 % (0-5); Neutrophil # 9.33 X10^3/uL (2.7-7.7); Neutrophil % 72.4 % (47-70); Platelet Count 437 K/mm3 (150-450); RBC Distribution Width SD 51.6 fl (35.1-43.9); Red Blood Count 4.03 M/mm3 (4.2-5.4); White Blood Count 12.9 K/mm3 (4.4-11.0)
[2025-05-08 08:17] LABS: Anion Gap 7 (5-15); BUN 15 mg/dL (4-19); BUN/Creat Ratio 21.6 RATIO (10-20); Calcium,Total 9.3 mg/dL (7.6-11.0); Carbon Dioxide 39.4 mmol/L (21.0-32.0); Chloride 90 mmol/L (98-108); Creatinine, Serum 0.71 mg/dL (0.70-1.20); EST Glomerular Filtration Rate 91 (>60); Estimated Creatinine Clearance 72.15 ml/min (50-250); Glucose 113 mg/dL (70-99); Potassium 3.7 mmol/L (3.3-5.1); Sodium Level 136 mmol/L (133-145)
[2025-05-08 08:22] VITALS: BP 154/67; PULSE 79; RESP 17; TEMP 36.3; O2SAT 98
[2025-05-08] MEDS: DULoxetine Hcl 60 MG Capsule PO (09:54)
[2025-05-08] MEDS: APIXABAN 5 MG TABLET PO (09:54)
[2025-05-08] MEDS: Digoxin 250 MCG Tablet PO (09:54)
[2025-05-08] MEDS: Empagliflozin 25 MG Tablet PO (09:54)
[2025-05-08] MEDS: Potassium Chloride Oral Tablet 20 MEQ PO (09:54)
[2025-05-08 09:55] VITALS: BP 154/67; PULSE 79
[2025-05-08] MEDS: Metoprolol Tartrate 50 MG Tablet PO (09:55)
--- NOTE | 2025-05-08 11:45 | CASEMGMT ---
Dr Lizarraga states that the pt will be discharging home today. RN CM to the pt room at this time to discuss DC planning. Pt states that she would like [facility] to resume care at home and denies wanting a list of other options. TC to [facility] and Christy states that they can resume care on Sunday for SN, PT, and OT. Christy states that they do not need a YUAN order as the pt has been admitted under obs the entire duration of her stay. Pt agreeable to [facility] resuming care on Sunday. TC to Jewel from [facility] who states that the pt's current oxygen orders are 4L continuous via NC and 6L w/ exertion. Pt also has an NIV (currently @ bedside). Pt is currently adequately saturating on her home oxygen orders and does not warrant an updated Rx. Pt states that her plans to bring in her portability at the time of DC. Pt states that he helps care for her at home. Pt states that she feels safe returning home with her today with the HH starting on Sunday and denies further needs at this time. Pt RN updated.
[2025-05-08 12:34] VITALS: O2SAT 99
--- NOTE | 2025-05-08 13:33 | DCINST_ITS ---
Discharge Instructions Diet Discharge Diet: Low fat / Low cholesterol DC O2, CPAP, BIPAP needs Home O2 Discharge instructions: No Dressing / Incision Discharge Activity: Return to Normal Activity Weight Bearing Status: Weight bearing as tolerated Dressing / Incision Call your doctor if you observe: Fever of 101 or Higher, Shortness of breath, Dizziness, Swelling in the ankles and Chest pain Follow Up Care Test Results: Test results from this visit will be discussed in further detail at your follow- up appointment, if applicable. Discharge Plan Admission Admit Date/Time: 05/08/25 11:54 Primary Reason for Your Visit: hypokalemia, debility Attending Provider: Cindi Lizarraga Primary Care Provider: Genia Carcamo Consulting Providers: Vannesa Camejo Instructions Patient Instructions: ED Hypokalemia, ED Potassium-Rich Foods Discharge Orders/Prescriptions Prescriptions: New potassium chloride [K-Tab] 20 mEq tablet extended release 20 meq PO BID Qty: 60 2RF Continued duloxetine 60 mg capsule,delayed release(DR/EC) 60 mg PO DAILY dapagliflozin propanediol [Farxiga] 10 mg tablet 10 mg PO QDAY Qty: 90 3RF metolazone 5 mg tablet 5 mg PO QDAY Qty: 90 3RF digoxin 250 mcg (0.25 mg) tablet 250 mcg PO QDAY Qty: 90 3RF montelukast 10 MG tablet 10 mg PO QHS albuterol sulfate 90 mcg/actuation HFA aerosol inhaler 2 puff Inhalation Q4H PRN (Reason: Shortness Of Breath) Nurtec ODT 75 mg tablet,disintegrating 75 mg PO DAILY PRN (Reason: migraine) Patient Comments: TAKE 1 (ONE) TABLET BY MOUTH DAILY IF NEEDED FOR MIGRAINE Trelegy Ellipta 200-62.5-25 mcg blister with device 1 inh inhalation DAILY fluticasone propionate [24 Hour Allergy Relief] 50 mcg/actuation spray,suspension 2 spray intranasal QHS Rx Instructions: administer into each nostril furosemide 40 mg tablet 40 mg PO BID Rx Instructions: TAKE 1 TAB IN MORNING, AND 1 TAB IN AFTERNOON. Eliquis 5 mg tablet 5 mg PO BID Qty: 60 11RF metoprolol tartrate 50 mg tablet 50 mg PO BID Discontinued levofloxacin 500 mg tablet 500 mg PO DAILY Qty: 7 0RF potassium chloride 20 mEq tablet extended release 20 meq PO DAILY Qty: 90 3RF Patient Comments: WHEN PT TAKES FUROSEMIDE, SHE TAKES POTASSIUM WELL, CURRENTLY ONCE IN AM, AND ONCE AT NOON Referrals / Follow Up: Genia Carcamo MD [Primary Care Provider] - Within 1 Week Disposition Disposition (needs filled in before D/C Order can be placed): Home, Self Care
--- NOTE | 2025-05-08 13:33 | DS.PCM_ITS ---
Providers Date of Admission: 05/08/25 Date of Discharge: 05/08/25 Primary Care Physician: Genia Carcamo MD Reason For Visit: HYPOKALEMIA/CONTRACTION ALKALOSIS Diagnosis Discharge Diagnosis (1) Weakness: Status: Acute Code(s): R53.1 - Weakness (2) Acute hypokalemia: Status: Acute Code(s): E87.6 - Hypokalemia Plan #Debility and weakness due to acute hypokalemia with contraction alkalosis * hypokalemia has resolved. K today is 3.4 and went up to 3.9 yesterday. * Metolazone and Lasix on hold. * She did receive a dose of Diamox in the ED also. Bicarb today is 37.5. It was up to 45 yesterday and at the time she came to the ED was more than 50. * PT OT on board. Fall precautions. #Acute encephalopathy likely due to metabolic derangement: * Resolved. Patient now at her baseline. #Chronic respiratory failure: * On 4 L of oxygen chronically at home. * She also has chronically elevated pCO2 * Breathing treatments bronchodilators. Titrate oxygen to maintain saturation above 90%. #WINIFRED: On BiPAP nightly #History of COPD: Not in exacerbation. Breathing treatments bronchodilators. #History of atrial fibrillation: On metoprolol and Eliquis. Also on digoxin. #Benign essential hypertension: On metoprolol #Nonobstructive CAD: Stable. #Chronic heart failure preserved ejection fraction: * Not in exacerbation. On Jardiance. Lasix and metolazone on hold due to hypokalemia. * Lasix echo showed EF of 65%. * resume lasix today with potassium supplementation * #History of migraines: Stable #DVT prophylaxis: On Eliquis CODE STATUS: Full code Medications at Discharge Home Medications montelukast 10 mg tablet 10 mg PO QHS allergies 09/07/18 fluticasone fur. 200 mcg-umeclid 62.5 mcg-vilant 25 mcg inhalat.powder (Trelegy Ellipta) 1 inh inhalation DAILY SOB 07/08/23 rimegepant 75 mg disintegrating tablet (Nurtec ODT) 75 mg PO DAILY PRN migraine 07/08/23 albuterol sulfate 90 mcg/actuation aerosol inhaler 2 puff inhalation Q4H PRN Shortness Of Breath 02/13/24 duloxetine 60 mg capsule,delayed release 60 mg PO DAILY mood 09/30/24 apixaban 5 mg tablet (Eliquis) 5 mg PO BID blood thinner #60 tabs 02/16/25 fluticasone propionate 50 mcg/actuation nasal spray,suspension (24 Hour Allergy Relief) 2 spray intranasal QHS nasal 03/19/25 furosemide 40 mg tablet 40 mg PO BID water pill 03/19/25 dapagliflozin propanediol 10 mg tablet (Farxiga) 10 mg PO QDAY #90 tabs 04/30/25 digoxin 250 mcg (0.25 mg) tablet 250 mcg PO QDAY #90 tabs 05/01/25 metoprolol tartrate 50 mg tablet 50 mg PO BID 05/04/25 potassium chloride 20 mEq tablet,extended release (K-Tab) 20 meq PO BID #60 tabs 05/08/25 Hospital Course Operations None Procedures None Summary of Care Provided Minutes Spent on Discharge: 45 Hospital Course: Patient is a 69-year-old female with past medical history as outlined was admitted through the ED on 05/06/2025 with a complaint of generalized weakness and muscle twitching as well as some confusion. She has seen her superintendent sales a few days prior to admission on account of heart failure preserved ejection fraction. Her Cardizem was discontinued and she was placed on metolazone and digoxin. She was 4 L of oxygen chronically for COPD. On admission she did have a contraction alkalosis and chemistry showed evidence of hypokalemia with potassium of 2.5. Her bicarb was elevated at over 50. She was given a dose of Diamox on account of the metabolic acidosis which was thought to be due to diuresis. She was also given potassium supplementation. She was admitted to be managed for hypokalemia and contraction alkalosis in the setting of diuretic use. Her potassium was aggressively replaced and eventually corrected. She worked with physical therapy and felt much better. She was therefore discharged home on 05/08/2025 on p.o. potassium 20 mg twice daily for potassium supplementation in light of her being on metolazone and Lasix for her heart failure. She is follow-up with her PCP within 1 to 2 weeks. Her metolazone was discontinued. I did call patient's (Mitchell Clark- [phone]) to tell him that patient was to stop taking hte metolazone and continue with her lasix to decrease the risk of contraction alkalosis and hypokalemia. Patient's was thankful for the call and said patient was sleeping with her BiPAP on and so he will tell her after she woke up. He was counseled to follow-up with cardiology but patient said they were going to switch to a different superintendent sales. Advised him to follow-up with the new superintendent sales as soon as possible. Patient seen and examined prior to discharge. She had no active complaints and had an uneventful night. Review of systems otherwise negative. Labs and vitals reviewed. Home medication reviewed and reconciled. Physical Exam Const alert, oriented x3 and no apparent distress Constitutional Narrative: Weak and frail. Class III obesity General Appearance: cooperative Orientation / Consciousness: awake HEENT normocephalic, head/scalp atraumatic, hearing grossly normal bilaterally, moist oral mucous membranes and oropharynx normal Mouth: oral and palatal mucosa normal Eyes PERRL and EOMs intact bilaterally Neck supple and no JVD Lymph Lymphatic: no lymphedema noted Resp clear to auscultation bilaterally Resp Narrative: mildly diminished breath sounds bibasally, no wheezes or crackles. On 4L oxygen which is her baseline. Cardio S1 normal heart sound and S2 normal heart sound Cardio Narrative: Irregularly irregular rhythm with good rate control, GI normal to inspection, nondistended, normoactive bowel sounds, soft to palpation, non-tender and non-distended GI Narrative: obese abdomen Extremity Extremity Narrative: Trace bilateral lower extremity edema, pedal pulses and radial pulses are 2+, no clubbing or cyanosis General Extremity: no tenderness to palpation of joints or extremities Skin General Skin Exam: no breakdown Neuro oriented x3 and moves all extremities Neuro Narrative: Generalized weakness noted but no focal deficits Motor Exam: general weakness Psych Psych Narrative: Pleasant, eye contact is good and she interacts appropriately Appearance: appropriate Weight / BMI Weight Weight: 224 lb 13.944 oz Body Mass Index (BMI) 41.1 ABG / Lab / Microbiology Data 05/08/25 07:37 05/08/25 07:37 Laboratory: Laboratory Results - last 24 hr 05/08/25 07:37: WBC 12.9 H, RBC 4.03 L, Hgb 11.6 L, Hct 37.5, MCV 93.1, MCH 28.8, MCHC 30.9 L, RDW Std Deviation 51.6 H, RDW Coeff of Beena 15.0 H, Plt Count 437, MPV 9.3, Immature Gran % (Auto) 1.400 H, Neut % (Auto) 72.4 H, Lymph % (Auto) 14.1 L, Kinney % (Auto) 11.0 H, Eos % (Auto) 0.6, Baso % (Auto) 0.5, A bsolute Neuts (auto) 9.3 H, Absolute Lymphs (auto) 1.82, Nucleated RBC % 0, Sodium 136, Potassium 3.7, Chloride 90 L, Carbon Dioxide 39.4 H, Anion Gap 7, BUN 15, Creatinine 0.71, Estim Creat Clear Calc 72.15, Est GFR (MDRD) Non-Af 91, BUN/Creatinine Ratio 21.6 H, Glucose 113 H, Calcium 9.3 D/C Instructions Discharge Diet: Low fat / Low cholesterol Discharge Activity: Return to Normal Activity Weight Bearing Status: Weight bearing as tolerated Call your doctor if you observe: Fever of 101 or Higher, Shortness of breath, Dizziness, Swelling in the ankles and Chest pain DC O2, CPAP, BIPAP Needs Home O2 Discharge instructions: Yes Type of respiratory needs?: Oxygen (4) Oxygen frequency: Continuous Continuous oxygen liters per minute: 4 DC home with Oxygen: Yes Home O2 MD Review: I have reviewed the oxygen testing, and the patient qualifies for home oxygen equipment and portability. The patient is mobile in the home and the community. Meaningful Use Info Meaningful Use Meaningful Use Diagnoses (Choose all that apply): None applicable Ischemic Stroke Statin Dosing Therapy Reference: STATIN DOSE THERAPY REFERENCE: * Patients > 75 years receive moderate or high dose statin therapy. * Patients 75 years or YOUNGER should receive HIGH intensity statin dose unless contraindicated. You will be required to document reason for non-treatment if statin daily dose does not meet guidelines. HIGH DOSE STATIN THERAPY DAILY Atorvastatin > than or = to 40 mg Rosuvastatin > than or = to 20 mg Amlodipine + Atorvastatin > than or = to 2.5/40 mg Ezetimibe + Simvastatin 10/80 mg Simvastatin 80mg Discharge Plan Admission Admit Date/Time: 05/08/25 11:54 Primary Reason for Your Visit: hypokalemia, debility Attending Provider: Cindi Lizarraga Primary Care Provider: Genia Carcamo Consulting Providers: Vannesa Camejo Instructions Patient Instructions: ED Hypokalemia, ED Potassium-Rich Foods Discharge Orders/Prescriptions Prescriptions: New potassium chloride [K-Tab] 20 mEq tablet extended release 20 meq PO BID Qty: 60 2RF Continued duloxetine 60 mg capsule,delayed release(DR/EC) 60 mg PO DAILY dapagliflozin propanediol [Farxiga] 10 mg tablet 10 mg PO QDAY Qty: 90 3RF digoxin 250 mcg (0.25 mg) tablet 250 mcg PO QDAY Qty: 90 3RF montelukast 10 MG tablet 10 mg PO QHS albuterol sulfate 90 mcg/actuation HFA aerosol inhaler 2 puff Inhalation Q4H PRN (Reason: Shortness Of Breath) Nurtec ODT 75 mg tablet,disintegrating 75 mg PO DAILY PRN (Reason: migraine) Patient Comments: TAKE 1 (ONE) TABLET BY MOUTH DAILY IF NEEDED FOR MIGRAINE Trelegy Ellipta 200-62.5-25 mcg blister with device 1 inh inhalation DAILY fluticasone propionate [24 Hour Allergy Relief] 50 mcg/actuation spray,suspension 2 spray intranasal QHS Rx Instructions: administer into each nostril furosemide 40 mg tablet 40 mg PO BID Rx Instructions: TAKE 1 TAB IN MORNING, AND 1 TAB IN AFTERNOON. Eliquis 5 mg tablet 5 mg PO BID Qty: 60 11RF metoprolol tartrate 50 mg tablet 50 mg PO BID Discontinued metolazone 5 mg tablet 5 mg PO QDAY Qty: 90 3RF levofloxacin 500 mg tablet 500 mg PO DAILY Qty: 7 0RF potassium chloride 20 mEq tablet extended release 20 meq PO DAILY Qty: 90 3RF Patient Comments: WHEN PT TAKES FUROSEMIDE, SHE TAKES POTASSIUM WELL, CURRENTLY ONCE IN AM, AND ONCE AT NOON Referrals / Follow Up: Genia Carcamo MD [Primary Care Provider] - Within 1 Week Disposition Disposition (needs filled in before D/C Order can be placed): Home, Self Care Charges/Coding Visit Charges Inpatient E&M: 23189 Disch Hosp >30min
== END 2025-05-08 11:54 | disposition home health service (06) ==
LOC: ED 05-06 09:36 → MS2 05-06 10:53
PROVIDERS: Admitting Provider Internal Medicine; Emergency Provider Emergency Medicine; PCP Family Medicine; Visit Provider Student in an Organized Health Care Education/Training Program
DX: E87.6 Hypokalemia (principal); J96.11 Chronic respiratory failure with hypoxia; J96.12 Chronic respiratory failure with hypercapnia; I50.32 Chronic diastolic (congestive) heart failure; I11.0 Hypertensive heart disease with heart failure; I27.21 Secondary pulmonary arterial hypertension; J44.9 Chronic obstructive pulmonary disease, unspecified; I48.91 Unspecified atrial fibrillation; Z68.41 Body mass index [BMI] 40.0-44.9, adult; E66.01 Morbid (severe) obesity due to excess calories; G93.40 Encephalopathy, unspecified; E87.4 Mixed disorder of acid-base balance; E87.3 Alkalosis; F32.A Depression, unspecified; E87.29 Other acidosis; I25.10 Atherosclerotic heart disease of native coronary artery without angina pectoris; G47.33 Obstructive sleep apnea (adult) (pediatric); Z79.01 Long term (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 anticoagulants; Z87.891 Personal history of nicotine dependence; Z79.51 Long term (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 inhaled steroids; R53.81 Other malaise; Z99.81 Dependence on supplemental oxygen; Z79.899 Other long term (current) drug therapy; Z66 Do not resuscitate
CPT/HCPCS: 36415; 36600; 80048; 80053; 80076; 80162; 81001; 82803; 83735; 84100; 85025; 93005; 94002; 94640; 94668; 96365; 96366; 96375; 97110; 97116; 97162; 99221; 99285; A4216; G0378

== ENCOUNTER → 2025-05-14 | Outpatient (CLI) | payer MEDICARE, SELFPAY ==
[2024-08-18 10:21] VITALS: BMI 40.8
[2025-05-14 12:02] LABS: Absolute Neutrophil Count 11.5 X10^3/uL (2.0-7.7); Basophil# 0.08 X10^3/uL; Basophil% 0.5 % (0-1); Eosinophil# 0.02 X10^3/uL; Eosinophils% 0.1 % (0-5); Hematocrit 38.4 % (37-47); Hemoglobin 11.6 g/dL (12.0-15.0); Lymphocyte % 10.7 % (19-41); Mean Corp Hgb Conc 30.2 g/dL (32-36); Mean Corpuscular Hgb 28.7 pg (27.0-32.0); Mean Platelet Vol. 9.8 fl (6.2-12.0); Monocyte# 1.44 X10^3/uL; Monocyte% 9.6 % (0-10); NRBC Flagged by Analyzer 0 % (0-5); Neutrophil # 11.52 X10^3/uL (2.7-7.7); Platelet Count 452 K/mm3 (150-450); RBC Distribution Width CV 15.3 % (11.6-14.6); RBC Distribution Width SD 53.4 fl (35.1-43.9); Red Blood Count 4.04 M/mm3 (4.2-5.4)
[2025-05-14 13:00] LABS: Digoxin Level 1.84 ng/mL (0.00-2.00)
[2025-05-14 13:06] LABS: Anion Gap 8 (5-15); BUN 14 mg/dL (4-19); BUN/Creat Ratio 21.9 RATIO (10-20); Calcium,Total 9.3 mg/dL (7.6-11.0); Carbon Dioxide 36.8 mmol/L (21.0-32.0); Chloride 92 mmol/L (98-108); Creatinine, Serum 0.64 mg/dL (0.70-1.20); EST Glomerular Filtration Rate 95 (>60); Glucose 127 mg/dL (70-99); Sodium Level 137 mmol/L (133-145)
[2025-05-14 13:19] LABS: Pro- Brain NATRIURETIC PEPTIDE 704 pg/mL (<=900)
== END | disposition home or self-care (01) ==
LOC: LAB 11:17
PROVIDERS: Internal Medicine Cardiovascular Disease; PCP Family Medicine; Referring Provider Nurse Practitioner Family; Visit Provider Nurse Practitioner Family
DX: I48.20 Chronic atrial fibrillation, unspecified (principal); I11.0 Hypertensive heart disease with heart failure; I50.30 Unspecified diastolic (congestive) heart failure; R41.0 Disorientation, unspecified; I25.10 Atherosclerotic heart disease of native coronary artery without angina pectoris; R06.00 Dyspnea, unspecified; R53.83 Other fatigue; Z51.81 Encounter for therapeutic drug level monitoring; Z79.899 Other long term (current) drug therapy
CPT/HCPCS: 36415; 80048; 80162; 83880; 84443; 85025

== ENCOUNTER → 2025-06-03 | Outpatient (CLI) | payer MEDICARE, SELFPAY ==
[2024-08-18 10:21] VITALS: BMI 40.8
--- NOTE | 2025-06-03 18:46 | CT_ITS ---
PROCEDURE: BRAIN/HEAD WITHOUT CONTRAST 06/03/2025 REASON FOR EXAM: MEMORY ISSUES, RULE OUT CVA/TIA TECHNIQUE: BRAIN/HEAD WITHOUT CONTRAST Coronal and Sagittal reconstruction series were provided. One or more dose reduction techniques were used (e.g., Automated exposure control, adjustment of the mA and/or kV according to patient size, use of iterative reconstruction technique. RADIATION DOSE SUMMARY: CTDlvol: 44.99 mGy DLP: 812.98 mGycm COMPARISON: CT head 09/07/2018 FINDINGS: No acute intracranial hemorrhage, extra-axial collection, mass effect or evidence of acute infarct. Ventricles and subarachnoid spaces are normal in size. Orbital contents are unremarkable. Intact skull base and calvarium. Clear paranasal sinuses and mastoid air cells. CT/Brain/Head without Contrast IMPRESSION: No acute intracranial abnormality. Reading Location: [id number]
== END | disposition home or self-care (01) ==
LOC: CT 18:44
PROVIDERS: PCP Family Medicine; Referring Provider Nurse Practitioner Family; Visit Provider Nurse Practitioner Family
DX: R41.0 Disorientation, unspecified (principal); I50.30 Unspecified diastolic (congestive) heart failure; I11.0 Hypertensive heart disease with heart failure; I48.20 Chronic atrial fibrillation, unspecified; I25.10 Atherosclerotic heart disease of native coronary artery without angina pectoris
CPT/HCPCS: 70450

== ENCOUNTER → 2025-08-03 | Outpatient (CLI) | payer MEDICARE, SELFPAY ==
[2024-08-18 10:21] VITALS: BMI 40.8
[2025-08-03 18:34] LABS: Hematocrit 41.4 % (37-47); Hemoglobin 12.4 g/dL (12.0-15.0); Mean Corp Hgb Conc 30.0 g/dL (32-36); Mean Corpuscular Volume 91.2 fL (81-99); Mean Platelet Vol. 10.5 fl (6.2-12.0); Platelet Count 335 K/mm3 (150-450); RBC Distribution Width CV 14.4 % (11.6-14.6); RBC Distribution Width SD 48.3 fl (35.1-43.9); Red Blood Count 4.54 M/mm3 (4.2-5.4); White Blood Count 12.1 K/mm3 (4.4-11.0)
[2025-08-03 19:04] LABS: AST(SGOT) 17 U/L (<=31); Alanine Aminotransfer ALT/SGPT 11 U/L (<=34); Albumin, Serum 4.0 g/dL (3.4-4.8); Alkaline Phosphatase 70 U/L (35-104); Anion Gap 11 (5-15); BUN 14 mg/dL (4-19); BUN/Creat Ratio 20.8 RATIO (10-20); Calcium,Total 9.6 mg/dL (7.6-11.0); Carbon Dioxide 33.0 mmol/L (21.0-32.0); Chloride 95 mmol/L (98-108); Globulin 3.1 g/dL (2.2-4.2); Glucose 128 mg/dL (70-99); Potassium 4.0 mmol/L (3.3-5.1)
[2025-08-03 19:52] LABS: Magnesium 2.1 mg/dL (1.5-2.2); Potassium 4.0 mmol/L (3.3-5.1)
== END | disposition home or self-care (01) ==
LOC: MFPLAB 14:16
PROVIDERS: Internal Medicine Cardiovascular Disease; PCP Family Medicine; Visit Provider Family Medicine
DX: I50.30 Unspecified diastolic (congestive) heart failure (principal); E87.6 Hypokalemia; R53.83 Other fatigue
CPT/HCPCS: 36415; 80053; 83735; 84132; 85027

== ENCOUNTER → 2025-09-08 | Outpatient (CLI) | payer MEDICARE, SELFPAY ==
[2024-08-18 10:21] VITALS: BMI 40.8
--- NOTE | 2025-09-08 14:55 | CT_ITS ---
PROCEDURE: LOW DOSE CT LUNG SCREENING 09/08/2025 REASON FOR EXAM: PERSONAL HISTORY OF NICOTINE DEPENDENCE Former smoker. Patient has smoked 1-1/2 pack per day for 50 years. COPD. TECHNIQUE: Procedure Code: [id number] Modality: CT Procedure: LOW DOSE CT LUNG SCREENING Coronal and Sagittal reconstruction series were provided. One or more dose reduction techniques were used (e.g., Automated exposure control, adjustment of the mA and/or kV according to patient size, use of iterative reconstruction technique). REFERENCE LINK: [facility] Lung-RADS RADIATION DOSE SUMMARY: CTDlvol: 4.02 mGy DLP: 154.01 mGycm COMPARISON: Prior study dated April 05, 2025. FINDINGS: PULMONARY NODULES: (Only nodules >3mm are reported) Nodules described below are on series 1 unless otherwise specified. Pulmonary Nodules: No pulmonary nodules are seen. Hardware:None Lymph Nodes:No suspicious hilar or mediastinal lymphadenopathy seen. Heart and Vasculature:The heart is nonenlarged. No evidence of pleural effusion at this time. There is evidence of coronary artery calcification. Coronary Artery Calcifications: Present Lungs and Airways: Mild emphysematous changes are present. Stable scarring in the lingular segment of the left upper lobe as well as in the right middle lobe. No pleural effusion. Pleura:No pleural effusion. Upper Abdomen:Unremarkable Bones:Degenerative changes of the thoracic spine. CT/Low Dose CT Lung Screening IMPRESSION: No suspicious pulmonary nodule. Coronary artery calcification (CAC) is is present Lung-RADS Category: 2 BENIGN (BASED ON IMAGING FEATURES OR INDOLENT BEHAVIOR). RECOMMEND 12-MONTH SCREENING LDCT. Other Significant Findings: Reading Location: [facility]
== END | disposition home or self-care (01) ==
LOC: CT 14:54
PROVIDERS: PCP Family Medicine; Referring Provider Internal Medicine Pulmonary Disease; Visit Provider Internal Medicine Pulmonary Disease
DX: Z12.2 Encounter for screening for malignant neoplasm of respiratory organs (principal); Z87.891 Personal history of nicotine dependence
CPT/HCPCS: 71271

== ENCOUNTER → 2025-09-15 | Outpatient (CLI) | payer MEDICARE, SELFPAY ==
[2024-08-18 10:21] VITALS: BMI 40.8
[2025-09-15 10:46] LABS: Allen Test Positive; Base Excess 20 mmol/L (-2 to +2); FI02 4.0; PO2 132 mmHG (75-100); SITE R Radial; SO2 99 % (95-99)
== END | disposition home or self-care (01) ==
LOC: PSN 09:59
PROVIDERS: PCP Family Medicine; Referring Provider Internal Medicine Pulmonary Disease; Visit Provider Internal Medicine Pulmonary Disease
DX: J96.10 Chronic respiratory failure, unspecified whether with hypoxia or hypercapnia (principal)
CPT/HCPCS: 36600; 82803

== ENCOUNTER → 2025-11-20 | Outpatient (CLI) | payer MEDICARE, SELFPAY ==
[2024-08-18 10:21] VITALS: BMI 40.8
--- OUTSIDE RECORDS SUMMARY | 2025-11-20 14:25 | XMS RPT_ITS | CCD ---
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 Christy Perea Primary Care Provider Dr. Belinda Barlow Attending Provider [phone] Dr. Christy Perea Referring Provider [phone] FISH Dahl Attending Provider Unavailable Primary Care [...] Provider Elan NORRIS, Dr. Amin Attending Provider [facility] SEWER REPAIRER-C, Azael Attending Provider [facility] SEWER REPAIRER-C, Azael Referring Provider Brit NORRIS, Dr. Christy Delgadillo Attending Provider Brit NORRIS, Dr. Christy Delgadillo Primary Care Provider Brit NORRIS, Dr. Christy Delgadillo Referring Provider Curry Taylor MD Attending Provider Nishant SEWER REPAIRER-CBecca Attending Provider Nishant SEWER REPAIRER-CBecca Referring Provider Magdy CASTANEDA, Dr. Rogel Referring Provider Dr. Juan F Curran DO Emergency Provider Genia Chappell MD Primary Care Provider Bolden DO, Dr. Nielsen Admit Provider Unavail able Bolden DO, Dr. Nielsen Other Provider Unavail able Zia NORRIS, Dr. Cindi Peterson Attending Provider Dr. Chai Rider DO Other Provider Sherwin NORRIS, Dr. Tariq Attending Provider Terconnie DO, Dr. Paula Attending Provider Zia NORRIS, Dr. Cindi Peterson Other Provider Nina CASTANEDA, Dr. Suárez Attending Provider Nina CASTANEDA, Dr. Suárez Emergency Provider Genia Chappell MD Attending Provider Roc NORRIS, Dr. Mitchell Winkler Referring Provider Genia Chappell MD Referring Provider Brit NORRIS, Dr. Christy Delgadillo Primary Care Provider Brit NORRIS, Dr. Christy Delgadillo Referring Provider Angel NORRIS, Dr. Escamilla Emergency Provider ia Joel CASTANEDA, Dr. Nielsen Attending Provider Unav ailable ia Joel DO, Dr. Nielsen Referring Provider Unav ailable Angel NORRIS, Dr. Escamilla Emergency Provider [facility], Dr. Nielsen Referring Provider Unav ailable Jarrell NORRIS, Dr. Rogers Attending Provider Roc NORRIS, Dr. Mitchell Winkler Other Provider Jarrell NORRIS, Dr. Rogers Other Provider Mandy NORRIS, Dr. Geoff Beal Attending Provider Jarrell NORRIS, Dr. Rogers Other Provider Jarrell NORRIS, Dr. Rogers Attending Provider Brit NORRIS, Dr. Christy Delgadillo Primary Care Provider Mandy NORRIS, Dr. Geoff Beal Other Provider Brit NORRIS, Dr. Christy Delgadillo Primary Care Provider Brit NORRIS, Dr. Christy Delgadillo Attending Provider Brit NORRIS, Dr. Christy Delgadillo Referring Provider Nishant ESPARZA-CBecca Attending Provider Becca Gatica Referring Provider Magdy CASTANEDA, Dr. Rogel Referring Provider Magdy CASTANEDA, Dr. Rogel Emergency Provider Dona NORRIS, Genia Primary Care Provider Bolden DO, Dr. Nielsen Admit Provider Unavail able Bolden DO, Dr. Nielsen Other Provider Unavail able Zia NORRIS, Dr. Cindi Peterson Attending Provider Adry CASTANEDA, Dr. Paula Other Provider Sherwin NORRIS, Dr. Tariq Attending Provider Adry CASTANEDA, Dr. Paula Attending Provider Zia NORRIS, Dr. Cindi Peterson Other Provider Nina CASTANEDA, Dr. Suárez Attending Provider Nina CASTANEDA, Dr. Suárez Emergency Provider Genia Chappell MD Attending Provider Roc NORRIS, Dr. Mitchell Winkler Referring Provider Genia Chappell MD Referring Provider Angel NORRIS, Dr. Escamilla Emergency Provider Bolden DO, Dr. Nielsen Referring Provider Unav ailable Roc NORRSI, Dr. Mitchell Winkler Other Provider Mandy NORRIS, Dr. Geoff Beal Attending Provider Jarrell NORRIS, Dr. Rogers Other Provider Jrarell NORRIS, Dr. Rogers Attending Provider Dr. Geoff Galvan MD Other Provider Dr. Mitchell Brian MD, V Attending Provider Dr. Que Greene DO Emergency Provider Bashir CASTANEDA, Dr. Granado Attending Provider Dr. Vannesa Camejo DO Admit Provider Dr. Vannesa Camejo DO Other Provider Dr. Vannesa Camejo DO Admit Provider Dr. Vannesa Camejo DO Other Provider Roof SEWER REPAIRER-C, Husam H Attending Provider Roof SEWER REPAIRER-C, Husam H Referring Provider Brit NORRIS, Dr. Christy Delgadillo Primary Care Provider Brit NORRIS, Dr. Christy Delgadillo Referring Provider Dr. Yasmani Bruno MD Attending Provider Dona NORRIS, Genia Primary Care Provider Nishant SEWER REPAIRER-Becca Rodriguez Attending Provider Nishant SEWER REPAIRER-C, Becca Referring Provider Roc NORRIS, Dr. Mitchell Winkler Attending Provider Roc NORRIS, Dr. Mitchell Winkler Referring Provider Brit NORIRS, Dr. Christy Delgadillo Referring Provider Sherwin NORRIS, Dr. Tariq Attending Provider Dr. Que Greene DO Emergency Provider Dr. Vannesa Camejo DO Attending Provider Dr. Vannesa Camejo DO Admit Provider Bashir CASTANEDA, Dr. Granado Other Provider Zia NORRIS, Dr. Cindi Peterson Attending Provider Dr. Cindi Lizarraga MD Other Provider Genia Chappell MD Referring Provider Roof SEWER REPAIRER-C, Husam Redman Attending Provider Roof SEWER REPAIRER-C, Husam Redman Referring Provider Dr. Yasmani Bruno MD Attending Provider Genia Chappell MD Attending Provider Dona NORRIS, Genia Primary Care Physician Dr. Mitchell Brian MD, V Attending Physician Sherwin NORRIS, Dr. Tariq Attending Physician [phone] Que Greene DO Emergency Department Physi ericka Bashir CASTANEDA, Dr. Granado Attending Physician Bashir CASTANEDA, Dr. Granado Admitting Physician [phone] Bashir CASTANEDA, Dr. Granado Nurse Practitioner Zia NORRIS, Dr. Cindi Peterson Attending Physician Zia NORRIS, Dr. Cindi Peterson Nurse Practitioner Roof SEWER REPAIRER-C, Husam H Attending Physician [phone] Kiana NORRIS, Dr. Gruber Attending Physician Dona NORRIS, Genia Attending Physician Carla NORRIS, Dr. Garner Attending Physician Dona NORRIS, Genia Primary Care Physician [phone] Racheal NORRIS, Dr. Moore Attending Physician Chandni Courtney Attending Unavailable Cahndni Courtney Referring Unavailable Dona, Chalon Primary Care Unavailable Dona, Chalon Referring Unavailable Dona, Chalon Primary Care Unavailable DonaGenia Attending Unavailable Dona, Chalon Primary Care Unavailable Dona, Chalon Referring Unavailable Oscar Springer Attending Unavailable Jolliff, Christy S Primary Care Unavailable Jolliff, Christy S Referring Unavailable Roof SEWER REPAIRER, Husam Redman Attending Unavailable Dona, Chalon Primary Care Unavailable iCndi Lizarraga Attending Unavailable Vannesa Camejo Consulting Unavailable Vannesa Camejo Admitting Unavailable Dona, Chalon Primary Care Unavailable Roof SEWER REPAIRER, Husam Redman Attending Unavailable Roof SEWER REPAIRER, Husam Redman Referring Unavailable Orlando Bolden Consulting Unavailable Dona, Chalon Primary Care Unavailable Orlando Bolden Admitting Unavailable Ungur, Remus Referring Unavailable Chai Rider Attending Unavailable Chai Rider Consulting Unavailable Orlando Bolden Attending Unavailable Sibilia, Mitchell V Referring Unavailable Dona, Chalon Primary Care Unavailable Dona, Arion Attending Unavailable Jolliff, Christy S Primary Care Unavailable Curry Taylor Attending Unavailable Curry Taylor Referring Unavailable Sibilia, Mitchell V Attending Unavailable Sibilia, Mitchell V Referring Unavailable Dona, Chalon Primary Care Unavailable Dnoa, Chalon Primary Care Unavailable Dillard SEWER REPAIRER, Becca Attending Unavailable Dillard SEWER REPAIRER, Becca Referring Unavailable Dona, Chalon Primary Care Unavailable Jose Armando Wood Attending Unavailable Dona, Chalon Primary Care Unavailable Dillard SEWER REPAIRER, Becca Attending Unavailable Dillard SEWER REPAIRER, Becca Referring Unavailable Jolliff, Christy S Attending Unavailable Jolliff, Christy S Referring Unavailable Jolliff, Christy S Primary Care Unavailable Dona, Chalon Primary Care Unavailable Roof SEWER REPAIRER, Husam Redman Attending Unavailable Roof SEWER REPAIRER, Husam Redman Referring Unavailable Sibilia, Mitchell V Attending Unavailable Sibilia, Mitchell V Referring Unavailable Dona, Chalon Primary Care Unavailable Sibilia, Mitchell V Attending Unavailable Sibilia, Mitchell V Referring Unavailable Dona, Chalon Primary Care Unavailable Jolliff, Christy S Attending Unavailable Jolliff, Christy S Referring Unavailable Jolliff, Christy S Primary Care Unavailable McMorrow SEWER REPAIRER, Azael Referring Unavailable McMorrow SEWER REPAIRER, Azael Attending Unavailable Jolliff, Christy S Primary Care Unavailable Dona, Chalon Primary Care Unavailable Yasmani Bruno Attending Unavailable Dona, Chalon Referring Unavailable Dona, Chalon Primary Care Unavailable Dona, Chalon Referring Unavailable Roof SEWER REPAIRER, Husam Redman Attending Unavailable Dona, Chalon Referring Unavailable Dona, Chalon Primary Care Unavailable Roof SEWER REPAIRER, Husam Redman Attending Unavailable Jolliff, Christy S Primary Care Unavailable Brennan Ansari Attending Unavailable Dona, Chalon Primary Care Unavailable Vannesa Camejo Consulting Unavailable AlessandroamCindi Attending Unavailable Vannesa Camejo Admitting Unavailable Koram, Cindi Kristen Consulting Unavailable Dona, Chalon Primary Care Unavailable AlessandroamCindi Attending Unavailable Vannesa Camejo Consulting Unavailable Bashir Vannesa Admitting Unavailable Koram, Cindi Kristen Consulting Unavailable Dona, Chalon Primary Care Unavailable Vannesa Camejo Attending Unavailable Dona, Chalon Primary Care Unavailable Chandni Courtney Attending Unavailable Orlando Bolden Consulting Unavailable Orlando Bolden Admitting Unavailable Dona, Chalon Primary Care Unavailable Orlando Bolden Referring Unavailable Geoff Galvan Attending Unavailable Sibilia, Mitchell V Consulting Unavailable Jarrell, Ken Consulting Unavailable Geoff Galvan Consulting Unavailable Jarrell Ken Attending Unavailable Dona, Chalon Primary Care Unavailable Dona, Chalon Referring Unavailable Patsy Aguirre Attending Unavailable Dona, Chalon Primary Care Unavailable Dona, Chalon Referring Unavailable Patsy Aguirre Attending Unavailable Jolliff, Christy S Primary Care Unavailable Brennan Ansari Attending Unavailable Jolliff, Christy S Primary Care Unavailable Jolliff, Christy S Referring Unavailable MollisonCurry Attending Unavailable Jolliff, Christy S Referring Unavailable SherwinChandni Attending Unavailable Dona, Chalon Primary Care Unavailable Jolliff, Christy S Referring Unavailable Jolliff, Christy S Primary Care Unavailable Curry Taylor Attending Unavailable Jolliff, Christy S Primary Care Unavailable Sherwin, Chandni Attending Unavailable Jolliff, Christy S Referring Unavailable Orlando Bolden Attending Unavailable KoramCindi Attending Unavailable KoramCindi Consulting Unavailable Jolliff, Christy S Primary Care Unavailable Nishant SEWER REPAIRER, Becca Referring Unavailable Nishant SEWER REPAIRER, Becca Attending Unavailable Orlando Bolden Referring Unavailable Orlando Bolden Consulting Unavailable Orlando Bolden Admitting Unavailable Dona, Chalon Primary Care Unavailable Geoff Galvan Attending Unavailable Mitchell Brian V Consulting Unavailable Ken Vieyra Consulting Unavailable Orlando Bolden Admitting Unavailable Orlando Bolden Consulting Unavailable Dona, Chalon Primary Care Unavailable Ungur, Remus Referring Unavailable Korcarol, Cindi Peterson Attending Unavailable Chai Rider Consulting Unavailable Dona, Genia Attending Unavailable Dona, Chalon Primary Care Unavailable Dona NORRIS, Genia Primary Care Physician [phone] Genia Chappell MD Referring Provider [phone] Roof SEWER REPAIRER-Husam Rodriguez Attending Physician [phone] Roof SEWER REPAIRER-CHusam Referring Provider [phone] Mitchell Brian MD, V Attending Physician Dr. Mitchell Brian MD, V Referring Provider [phone] Allergies Allergy Classification Reported Allergen(s) Allergy Type Date of Onset Reaction(s) Facility (20 sources) house dust allergenic extract Drug Allergy 03-31-2022 Unknown [facility] (20 sources) Mold Extract Drug Allergy 03-31-2022 [facility] Work Phone: (20 sources) Feather; Translations: [feathers] Drug Allergy 06-30-2022 [facility] Work Phone: (5 sources) House dust mite Allergy to substance 06-30-2022 [facility] Work Phone: (1 source) house dust allergenic extract Drug Allergy 09-11-2025 [facility] Repository (1 source) Mold Extract Drug Allergy 09-11-2025 [facility] Repository Medications Current Medications Medication Drug Class(es) Dates Sig (Normalized) Sig (Original) [id number] 200 actuat albuterol 0.09 mg/actuat metered dose inhaler (20 sources) beta2-Adrenergic Agonist Start: 02-13-2024 Start: 02-13-2024 Start: 02-13-2024 take 1 puff(s) by in [...] 13, 2024 12:50pm Start: 10-20-2018 End: 02-13-2024 Start: 10-20-2018 End: 02-13-2024 take 1 puff(s) [...] 09-07-2018 End: 10-20-2018 Start: 09-07-2018 End: 10-20-2018 take 1 puff(s) by inhalation every four hours as needed Albuterol Sulfate Discontinued 2 PUFF INHALATION EVERY 4 HOURS NEEDED September 07, 2018 12:00am October 20, 2018 2:46pm Comment on above: Inhale 2 Inhalation as instructed four times daily. cetirizine hydrochloride 10 mg oral capsule (20 sources) Histamine-1 Receptor Antagonist Start: 08-14-2025 take 1 capsule by mouth once daily as needed Start: 07-08-2023 End: 04-06-2025 take 1 tablet by mouth once daily Cetirizine (24hour Allergy) 10 mg tablet Discontinued 10 mg PO DAILY March 19, 2025 12:00am April 06, 2025 12:14am allergy dapagliflozin 10 mg oral tablet (13 sources) Sodium-Glucose Cotransporter 2 Inhibitor Start: 04-30-2025 take 1 tablet by mouth once daily DULoxetine 60 mg delayed release oral capsule (20 sources) Serotonin and Norepinephrine Reuptake Inhibitor Start: 09-30-2024 take 1 capsule by mouth once daily fluticasone propionate 0.05 mg/actuat metered dose nasal spray (20 sources) Corticosteroid Start: 07-08-2023 End: 03-19-2025 take 50 ug nasal route at bedtime Start: 07-08-2023 Fluticasone Pr opionate Active 2 SPRAY INTRANASAL AT BEDTIME July 08, 2023 12:00am Jawalhadnlp-Lawfdcbth-Pgemvo er (20 sources) Start: 07-08-2023 Qzsohcsmylc-Blzqhhari-Obervd er (Trelegy Ellipta) 200-62.5-25 mcg blister with device Active 1 NMA INHALATION DAILY July 08, 2023 12:00am SOB Complies with drug therapy Start: 07-08-2023 Start: 07-08-2023 Fluticasone-Um eclidin-Vilanter (Trelegy Ellipta) 200-62.5-25 mcg blister with device Active 1 NMA INHALATION DAILY July 08, 2023 12:00am SOB Start: 07-08-2023 Start: 07-08-2023 Fluticasone-Um eclidin-Vilanter (Trelegy Ellipta) 200-62.5-25 mcg blister with device Active 1 NMA INHALATION DAILY July 08, 2023 12:00am Start: 07-08-2023 Fluticasone-Um eclidin-Vilanter (Trelegy Ellipta) 200-62.5-25 mcg blister with device Active 1 INH INHALATION DAILY July 07, 2023 11:00pm Start: 07-08-2023 Fluticasone-Um eclidin-Vilanter (Trelegy Ellipta) 200-62.5-25 mcg blister with device Active 1 INH INHALATION DAILY July 08, 2023 12:00am metoprolol tartrate 50 mg oral tablet (20 sources) beta-Adrenergic Garret Start: 05-15-2025 End: 05-15-2025 take 1 tablet by mouth twice daily Start: 05-11-2025 End: 05-15-2025 take 2 tablets by mouth twice daily Metoprolol Tartrate 25 mg tablet Discontinued 50 mg PO TWICE A DAY 60 May 14, 2025 10:49am May 15, 2025 11:37am Start: 05-11-2025 End: 05-14-2025 take 1 tablet by mouth twice daily Metoprolol Tartrate 25 mg tablet Discontinued 25 mg PO TWICE A DAY 60 May 11, 2025 12:00am May 14, 2025 10:51am Start: 05-01-2025 End: 05-04-2025 take 1 tablet by mouth twice daily Metoprolol Tartrate 100 mg tablet Discontinued 100 mg PO TWICE A DAY 180 May 01, 2025 12:00am May 04, 2025 4:28pm Start: 10-09-2024 End: 05-11-2025 take 1 tablet by mouth twice daily Metoprolol Tartrate 50 mg tablet Discontinued 50 mg PO TWICE A DAY May 04, 2025 12:00am May 11, 2025 2:02pm Start: 02-19-2024 End: 10-09-2024 take 2 tablets by mouth [...] take 1 tablet by mouth at bedtime Comment on above: Take 1 tablet by zulema th daily at bedtime. rimegepant 75 mg disintegrating oral tablet (20 sources) Start: 07-08-2023 take 1 tablet by mouth once daily as needed Semaglutide (Weight Loss) (1 source) Start: 09-11-2025 spironolactone 25 mg oral tablet (10 sources) Aldosterone Antagonist Start: 05-14-2025 take 1 tablet by mouth once daily tiZANidine 4 mg oral tablet (3 sources) Central alpha-2 Adrenergic Agonist Start: 08-14-2025 take 1 tablet by mouth twice daily as needed Vibegron (2 sources) Start: 09-11-2025 take 1 tablet by mouth once daily Start: 09-11-2025 End: 09-11-2025 take 1 tablet by mouth once daily Vibegron (Gemtesa) 75 mg tablet Discontinued 75 mg PO daily September 11, 2025 12:00am September 11, 2025 3:39pm Completed/Discontinued Medications Medication Drug Class(es) Dates Sig (Normalized) Sig (Original) acetaminophen 300 mg / HYDROcodone bitartrate 5 mg oral tablet (20 sources) Opioid Agonist Start: 08-17-2024 End: 09-30-2024 Hydrocodone-Acetami nophen 5-300 mg tablet Discontinued 1 {tbl} PO Q4H as needed for pain 20 6 0 August 17, 2024 September 30, 2024 3:16pm Fracture of left shoulder Start: 08-17-2024 End: 09-30-2024 apixaban 5 mg oral tablet (20 sources) Factor Xa Inhibitor Start: 01-21-2024 End: 02-16-2025 take 1 tablet by mouth twice daily Apixaban (Eliquis) 5 mg tablet Discontinued 5 mg PO TWICE A DAY 60 11 February 19, 2024 11:24am February 16, 2025 2:44pm Start: 01-21-2024 End: 02-19-2024 take 2 tablets by mouth twice daily, then take 1 tablet by mouth twice daily Apixaban (Eliquis) 5 mg tablet Discontinued 5 mg PO TWICE A DAY 74 0 January 21, 2024 1:00am February 19, 2024 [...] 20, 2018 1:00am February 13, 2024 12:49pm antiplatelet Comment on above: Take 1 tablet by zulema th once daily. azithromycin 250 mg oral tablet (20 sources) Macrolide Antimicrobial Start: 10-01-2024 End: 10-28-2024 Azithromycin 250 mg tablet Discontinued 250 mg PO As Directed October 01, 2024 1:00am October 28, 2024 3:21pm Start: 07-10-2023 End: 01-21-2024 take 1 tablet by mouth once daily Azithromycin 500 mg tablet Discontinued 500 mg PO DAILY 3 3 0 July 10, 2023 12:00am January 21, 2024 5:53pm benzonatate 200 mg oral capsule (20 sources) Non-narcotic Antitussive Start: 11-14-2018 End: 05-12-2021 take 1 capsule by mouth three times daily as needed for cough Benzonatate 200 mg capsule Discontinued 200 mg PO THREE TIMES A DAY as needed for cough 20 0 November 14, 2018 1:00am May 12, 2021 5:17pm calcium carbonate 1250 mg oral tablet (20 sources) Start: 09-07-2018 End: 09-30-2024 take 1 tablet by mouth once daily Calcium Carbonate 500 MG tablet Discontinued 500 mg PO DAILY September 07, 2018 12:00am September 30, 2024 3:15pm calcium cephalexin 500 mg oral capsule (20 sources) Cephalosporin Antibacterial Start: 03-31-2022 End: 04-10-2022 take 1 capsule by mouth every twelve hours Cephalexin 500 mg capsule Discontinued 500 mg PO Q12H 20 10 March 31, 2022 12:00am April 09, 2022 12:00am April 10, 2022 12:04am Start: 10-03-2021 End: 10-13-2021 take 1 capsule by mouth every twelve hours Cephalexin 500 mg capsule Discontinued 500 mg PO Q12H 20 10 October 03, 2021 1:00am October 12, 2021 1:00am October 13, 2021 1:01am Start: 07-28-2021 End: 08-10-2021 take 1 capsule by mouth every eight hours Cephalexin 500 mg capsule Discontinued 500 mg PO Q8H 30 0 July 28, 2021 12:00am August 10, 2021 2:49pm Start: 07-28-2021 End: 08-10-2021 citalopram 10 mg oral tablet (20 sources) [...] 300 mg PO THREE TIMES A DAY 30 0 November 21, 2021 1:00am March 31, 2022 1:39pm Start: 12-02-2020 End: 08-10-2021 take 1 capsule by mouth three times daily Clindamycin Hcl 300 mg capsule Discontinued 300 mg PO THREE TIMES A DAY 30 0 May 12, 2021 12:00am August 10, 2021 2:49pm cyclobenzaprine hydrochloride 10 mg oral tablet (20 sources) Muscle Relaxant Start: 02-27-2019 End: 08-10-2021 take 1 tablet by mouth at bedtime as needed for muscle spasms Cyclobenzaprine 10 mg tablet Discontinued 10 mg PO BEDTIME as needed for muscle spasm 10 February 27, 2019 12:00am August 10, 2021 2:49pm Start: 02-27-2019 End: 08-10-2021 digoxin 0.25 mg oral tablet (13 sources) Cardiac Glycoside Start: 05-01-2025 End: 05-14-2025 take 1 tablet by mouth once daily Digoxin 250 mcg (0.25 mg) tablet Discontinued 250 ug PO daily 90 3 May 01, 2025 12:00am May 14, 2025 10:49am 24 hr dilTIAZem hydrochloride 240 mg extended release oral capsule (20 sources) Calcium Channel Garret Start: 02-19-2024 End: 05-01-2025 take 1 capsule by mouth once daily, then take 1 capsule by mouth every twenty-four hours Diltiazem Hcl (Tiadylt Er) 240 mg capsule,extended release 24 hr Discontinued 240 mg PO DAILY February 19, 2024 12:00am May 01, 2025 10:26am heart rate Start: 01-21-2024 End: 02-19-2024 take 1 capsule by mouth once daily, then take 1 capsule by mouth every twenty-four hours Diltiazem Hcl (Cardizem Cd) 180 mg capsule,extended release 24hr Discontinued 180 mg PO DAILY 30 0 January 21, 2024 1:00am February 19, 2024 10:30am escitalopram 20 mg oral tablet (20 sources) [...] 20, 2018 1:00am February 13, 2024 12:48pm anxiety Start: 10-20-2018 End: 02-13-2024 Start: 10-20-2018 End: 02-13-2024 take 10 mg by mouth at bedtime Escitalopram Oxalate Di scontinued 10 MG PO AT BEDTIME October 20, 2018 1:00am February 13, 2024 12:48pm 30 actuat fluticasone furoate 0.1 mg/actuat / vilanterol 0.025 mg/actuat dry powder inhaler (20 sources) Corticosteroid, beta2-Adrenergic Agonist Start: 10-20-2018 End: 07-08-2023 Fluticasone Furoate-Vilanterol (Breo Ellipta) 100-25 mcg/dose blister with device Discontinued 1 NMA INHALATION DAILY October 20, 2018 1:00am July 08, 2023 6:25pm Start: 10-20-2018 End: 07-08-2023 Start: 10-20-2018 End: [...] 07, 2018 12:00am July 10, 2023 12:50pm SOB Start: 09-07-2018 End: 07-10-2023 Start: 09-07-2018 End: 07-10-2023 take 1 puff(s) [...] take 1 tablet by mouth twice daily in the morning Furosemide 40 mg tablet Discontinued 40 mg PO TWICE A DAY March 19, 2025 12:00am May 15, 2025 11:22am water pill TAKE 1 TAB IN MORNING, AND 1 TAB IN AFTERNOON. Start: 05-07-2024 End: 03-19-2025 take 1 tablet by mouth once daily in the morning Furosemide 40 mg tablet Discontinued 40 mg PO EVERY MORNING 90 May 07, 2024 12:00am March 19, 2025 9:45pm Start: 05-07-2024 End: 05-15-2025 gemtessa (2 sources) Start: 09-01-2025 End: 09-11-2025 gemtessa Discontinued PO Oct 2024 12:00am September 11, 2025 2:58pm urinary incontinence Start: 09-01-2025 levoFLOXacin 500 mg oral tablet (16 sources) Quinolone Antimicrobial Start: 04-10-2025 End: 05-08-2025 take 1 tablet by mouth once daily Levofloxacin 500 mg tablet Discontinued 500 mg PO DAILY 7 April 10, 2025 12:00am May 08, 2025 1:31pm loratadine 10 mg oral tablet (20 sources) [...] once daily as needed (for allergy symptoms.). metOLazone 5 mg oral tablet (13 sources) Thiazide-like Diuretic Start: 05-01-20 End: 05-08-20 take 1 tablet by mouth once daily Metolazone 5 mg tablet Discontinued 5 mg PO daily 90 May 01, 2025 12:00am May 08, 2025 5:56pm metroNIDAZOLE 500 mg oral tablet (3 sources) Nitroimidazole Antimicrobial Start: 08-17-20 End: 09-11-20 take 1 tablet by mouth twice daily Metronidazole 500 mg tablet Discontinued 500 mg PO TWICE A DAY 14 0 August 17, 2025 12:00am September 11, 2025 2:57pm Start: 08-17-2025 take 1 tablet by mouth twice d aily modafinil 100 mg oral tablet (20 sources) Sympathomimetic-like Agent Start: 10-01-2024 End: 03-19-2025 take 1 tablet by mouth once daily as needed Modafinil 100 mg tablet Discontinued 100 mg PO daily as needed for narcolepsy October 01, 2024 1:00am March 19, 2025 10:45pm omeprazole 40 mg delayed release oral capsule (20 sources) Proton Pump Inhibitor Start: 05-07-2024 End: 12-04-2024 take 1 capsule by mouth once daily Omeprazole 40 mg capsule,delayed release(DR/EC) Discontinued 40 mg PO DAILY May 07, 2024 12:00am December 04, 2024 2:48pm pantoprazole 40 mg delayed release oral tablet (20 sources) Proton Pump Inhibitor Start: 09-07-2018 End: 05-07-2024 take 1 tablet by mouth once daily Pantoprazole 40 mg tablet,delayed release (DR/EC) Discontinued 40 mg PO DAILY August 10, 2021 2:50pm May 07, 2024 1:11pm GERD Comment on above: Take 1 tablet by zulema th once daily. potassium chloride 20 meq extended release oral tablet (20 sources) Start: 05-08-2025 End: 05-14-2025 take 1 tablet by mouth twice daily Potassium Chloride (K-Tab) 20 mEq tablet extended release Discontinued 20 meq PO TWICE A DAY 60 2 May 08, 2025 12:00am May 14, 2025 10:50am Start: 05-07-2024 End: 05-14-2025 take 1 tablet by mouth once daily Potassium Chloride 20 mEq tablet extended release Discontinued 20 meq PO DAILY 90 3 April 24, 2025 4:45pm May 08, 2025 1:31pm supplement predniSONE 10 mg oral tablet (20 sources) Start: 04-10-2025 End: 04-30-2025 take 4 tablets by mouth once daily, then take 3 tablets by mouth once daily, then take 2 tablets by mouth once daily, then take 1 tablet by mouth once daily, then take 0.5 tablet by mouth once daily Prednisone 10 mg tablet Discontinued 10 mg PO DAILY 32 April 10, 2025 12:00am April 30, 2025 2:42pm Take 4 tablets daily for 3 days then 3 tablets daily for 3 days then 2 tablets daily for 3 days then 1 tablet daily for 3 days then half tablet daily for 4 days Start: 03-24-2025 End: 04-10-2025 take 2 tablets by mouth once daily Prednisone 20 mg tablet Discontinued 40 mg PO DAILY 10 March 24, 2025 12:00am April 10, 2025 2:48pm Start: 10-01-2024 End: 10-28-2024 Prednisone 20 mg tablet Discontinued mg PO October 01, 2024 1:00am October 28, 2024 3:22pm Start: 10-01-2024 End: 10-28-2024 Start: 07-10-2023 End: 01-21-2024 take 2 tablets by mouth at breakfast Prednisone 20 mg Tablet Discontinued 40 mg PO WITH BREAKFAST 6 3 July 10, 2023 12:00am January 21, 2024 5:54pm Start: 07-10-2023 End: 01-21-2024 take 40 mg by mouth at breakfast Prednisone Discontinu ed 40 MG PO WITH BREAKFAST 6 3 July 10, 2023 12:00am January 21, 2024 5:54pm sulfamethoxazole 800 mg / trimethoprim 160 mg oral tablet (20 sources) Dihydrofolate Reductase Inhibitor Antibacterial, Sulfonamide Antimicrobial Start: 08-14-2025 End: 09-01-2025 Sulfamethoxazole-Trimethopri m 800-160 mg tablet Discontinued 1 {tbl} PO TWICE A DAY August 14, 2025 12:00am September 01, 2025 2:17pm Start: 2021 End: 10-03-2021 Sulfamethoxazole-Trimethopri m (Bactrim Ds) 800-160 mg tablet Discontinued 1 {tbl} PO TWICE A DAY 2021 12:00am October 03, 2021 3:42pm Start: 2021 End: 10-03-2021 7 actuat umeclidinium 0.0625 mg/actuat dry powder [...] 09-07-2018 End: 10-20-2018 Start: 09-07-2018 End: 10-20-2018 take 1 puff(s) by inhalation once daily Umeclidinium Discontinued 2 PUFF INHALATION DAILY September 07, 2018 12:00am October 20, 2018 2:46pm Comment on above: Inhale 1 Puff as ins tructed once daily. (20 sources) Start: 10-01-2024 End: 10-28-2024 Start: 02-13-2024 End: 09-30-2024 Problems Active Problems Problem Classification Problem Date Documented Date Episodic/Chronic Abdominal hernia (5 sources) Umbilical hernia; Translations: [Umbilical hernia without obstruction or gangrene] Onset: 09-01-2025 09-01-2025 Episodic Cardiac dysrhythmias (20 sources) Atrial fibrillation with rapid ventricular response; Translations: [Unspecified atrial fibrillation] Onset: 05-05-2025 01-21-2024 Chronic Cardiac dysrhythmias (20 sources) Tachycardia; Translations: [Tachycardia, unspecified] 02-13-2024 Episodic Cataract (4 sources) Cataract; Translations: [Unspecified cataract] 08-10-2025 Chronic Chronic obstructive pulmonary disease and bronchiectasis [...] Coronary arteriosclerosis; Translations: [Atherosclerotic heart disease of [place] coronary artery without angina pectoris] Onset: 03-24-2025 05-07-2024 Chronic Diabetes mellitus without complication (4 sources) Diabetes mellitus; Translations: [Type 2 diabetes mellitus without complications] 08-10-2025 Chronic Diseases of white blood cells (20 sources) Leukocytosis; Translations: [Elevated white blood cell count, unspecified] Onset: 04-10-2025 04-05-2025 Chronic Disorders of lipid metabolism (20 sources) Hyperlipidemia; Translations: [Hyperlipidemia, unspecified] Onset: 03-23-2025 03-17-2025 Chronic E Codes: Fall (20 sources) Fall; Translations: [Unspecified fall, initial encounter] 08-25-2024 Episodic Essential hypertension (20 sources) Hypertensive disorder; Translations: [Essential (primary) hypertension] Onset: 05-05-2025 02-19-2024 Chronic Genitourinary symptoms and ill-defined conditions (13 sources) Urinary incontinence; Translations: [Unspecified urinary incontinence] Onset: 08-14-2025 08-10-2025 Chronic Genitourinary symptoms and ill-defined conditions (12 sources) Urgent desire to urinate; Translations: [Urgency of urination] Onset: 08-14-2025 08-10-2025 Episodic Headache; including migraine (4 sources) Headache; Translations: [Headache] 08-10-2025 Episodic Malaise and fatigue (20 sources) Asthenia; Translations: [Weakness] Onset: 05-08-2025 05-06-2025 Episodic Menopausal disorders (7 sources) Atrophy of vagina; Translations: [Postmenopausal atrophic vaginitis] 08-14-2025 Chronic Other aftercare (20 sources) Long-term current use of diuretic; Translations: [Encounter for therapeutic drug level monitoring] 08-15-2024 Episodic Other aftercare (20 sources) Long-term current use of anticoagulant; Translations: [USP (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 anticoagulants] 08-25-2024 Episodic Other circulatory disease (20 sources) H/O: atrial fibrillation; Translations: [Personal history [...] elbow] 08-15-2021 Episodic Other connective tissue disease (20 sources) Muscle pain; Translations: [Myalgia, unspecified site] 08-15-2024 Episodic Other diseases of bladder and urethra (7 sources) Overactive bladder; Translations: [Overactive bladder] 08-14-2025 Chronic Other female genital disorders (8 sources) Pruritus of vagina; Translations: [Other specified noninflammatory disorders of vagina] 08-10-2025 Episodic Other female genital disorders (7 sources) Atrophic vulva; Translations: [Atrophy of vulva] 08-14-2025 Episodic Other infections; including parasitic (4 sources) History of pneumococcal infection; Translations: [Personal history of other infectious and parasitic diseases] 08-10-2025 Episodic Other lower respiratory disease (20 sources) Hypoxia; Translations: [Hypoxemia] 07-08-2023 Episodic Other lower respiratory disease (20 sources) Dyspnea; Translations: [Dyspnea, unspecified] 03-19-2025 Episodic Other lower respiratory disease (20 sources) Respiratory insufficiency; Translations: [Other abnormalities of breathing] 03-19-2025 Episodic Other nutritional; endocrine; and metabolic disorders (20 sources) Morbid obesity; Translations: [Morbid (severe) obesity [...] nutritional; endocrine; and metabolic disorders (20 sources) Alveolar hypoventilation; Translations: [Morbid (severe) obesity [...] imaging of heart and coronary circulation] Onset: 10-27-2024 Episodic Other skin disorders (20 sources) Sebaceous cyst of skin; Translations: [Sebaceous cyst] 05-12-2021 Episodic Other upper respiratory disease (4 sources) Seasonal allergy; Translations: [Other seasonal allergic rhinitis] 08-10-2025 Chronic Other upper respiratory infections (20 sources) Acute sinusitis; Translations: [Acute sinusitis, unspecified] Episodic Mellisa-; endo-; and myocarditis; cardiomyopathy (except that caused by tuberculosis or sexually transmitted disease) (20 sources) Pericardial effusion; Translations: [Pericardial effusion] 04-06-2025 Episodic Pulmonary heart disease (2 sources) Secondary pulmonary hypertension; Translations: [Other secondary pulmonary hypertension] Chronic Residual codes; unclassified (20 sources) Sleep apnea; Translations: [Sleep apnea, unspecified] 02-19-2024 Chronic Residual codes; unclassified (5 sources) Sleep apnea, unspecified; Translations: [Unspecified sleep apnea] Onset: 04-30-2025 02-19-2024 Chronic Residual codes; unclassified (20 sources) Obstructive sleep apnea syndrome; Translations: [Obstructive sleep apnea (adult) (pediatric)] 04-05-2025 Chronic Residual codes; unclassified (1 source) Obstructive sleep apnea (adult) (pediatric); Translations: [Obstructive sleep apnea (adult) (pediatric)] Onset: 04-10-2025 Chronic Residual codes; unclassified (20 sources) Bilateral lower limb edema; Translations: [Localized edema] 03-17-2025 Episodic Residual codes; unclassified (20 sources) Edema; Translations: [Edema, unspecified] 04-21-2025 Episodic Residual codes; unclassified (20 sources) Acute confusion; Translations: [Disorientation, unspecified] 05-06-2025 Episodic Residual codes; unclassified (4 sources) History of past delivery; Translations: [Personal history of other genital system and obstetric disorders] 08-10-2025 Episodic Comment on above: X4 Respiratory failure; insufficiency; arrest (adult) (20 sources) Chronic hypoxemic respiratory failure; Translations: [Chronic respiratory failure with hypoxia] Onset: 05-08-2025 04-02-2025 Chronic Skin and subcutaneous tissue infections (20 sources) Cellulitis and abscess of face; Translations: [Cellulitis of face] 11-21-2021 Episodic Spondylosis; intervertebral disc disorders; other back problems (20 sources) Backache; Translations: [Dorsalgia, unspecified] 02-27-2019 Episodic Unclassified (7 sources) With Nurse Practioner Azael Unclassified (2 sources) Chronic atrial fibrillation, unspecified; Translations: [Chronic atrial fibrillation, unspecified] Onset: 04-10-2025 Unclassified (1 source) Other acidosis; Translations: [Other acidosis] Onset: 05-08-2025 Unclassified (1 source) Other pericardial effusion (noninflammatory); Translations: [Other pericardial effusion (noninflammatory)] Onset: 04-10-2025 Unclassified (1 source) Acidosis, unspecified; Translations: [Acidosis, unspecified] Onset: 04-10-2025 Past or Other Problems Problem Classification Problem Date Documented Date Episodic/Chronic Fluid and electrolyte disorders (20 sources) Lactic acidosis; Translations: [Lactic acidosis] Onset: 05-08-2025 04-05-2025 Episodic Fracture of upper limb (20 sources) Fracture of left shoulder girdle, part unspecified, initial encounter for closed fracture; Translations: [Fracture of left shoulder] Onset: 12-04-2024 08-25-2024 Episodic Other aftercare (1 source) Encounter for therapeutic drug level monitoring; Translations: [Encounter for therapeutic drug level monitoring] Onset: 05-05-2025 Episodic Other aftercare (1 source) Other termite renewal inspector (current) drug therapy; Translations: [Other termite renewal inspector (current) drug therapy] Onset: 05-05-2025 Episodic Other aftercare (1 source) termite renewal inspector (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 anticoagulants; Translations: [termite renewal inspector (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 anticoagulants] Onset: 04-10-2025 Episodic Other lower respiratory disease (3 sources) Hypoxemia; Translations: [Hypoxemia] Onset: 05-07-2025 07-10-2023 Episodic Other lower respiratory disease (1 source) Dyspnea, unspecified; Translations: [Dyspnea, unspecified] Onset: 06-01-2025 Episodic Other lower respiratory disease (1 source) Shortness of breath; Translations: [Shortness of breath] Onset: 04-26-2025 Episodic Other lower respiratory disease (1 source) Other abnormalities of breathing; Translations: [Other abnormalities of breathing] Onset: 03-24-2025 Episodic Residual codes; unclassified (2 sources) Disorientation, unspecified; Translations: [Disorientation, unspecified] Onset: 05-08-2025 Episodic Residual codes; unclassified (2 sources) Localized edema; Translations: [Localized edema] Onset: 04-08-2025 Episodic Respiratory failure; insufficiency; arrest (adult) (20 sources) Acute respiratory failure; Translations: [Acute respiratory failure with hypoxia] Onset: 04-10-2025 07-08-2023 Episodic Urinary tract infections (20 sources) Urinary tract infectious disease; Translations: [Urinary tract infection, site not specified] Onset: 01-09-2025 10-03-2021 Episodic Results Test Name Value Interpretation Reference Range Facility Assessment of wrist artery p atency prior to arterial punctureOrdered By: Mitchell Brian on 09-15-2025 Arterial patency Wrist artery --pre arterial puncture Positive [facility] Blood Gases by CPSon 025 ZECHARIAH TEST Positive Normal [facility] Comment on above: Performed By: #### L 9000.0800 ####[facility] [address] [place], [address] Base excess Calc (Bld) [Moles/Vol] 20 mmol/L High -2 to +2 [facility] Comment on above: Performed By: #### L 9000.0800 ####[facility] [address] [place], [address] Blood Gas Type ART Normal [facility] Comment on above: Performed By: #### L 9000.0800 ####[facility] [address] [place], [address] CO2 [Moles/Vol] 46 mmol/L Normal [facility] Comment on above: Performed By: #### L 9000.0800 ####[facility] [address] [place], [address] FI02 4.0 Normal [facility] Comment on above: Performed By: #### L 9000.0800 ####[facility] [address] [place], [address] HCO3 (Bld) [Moles/Vol] 44.3 mmol/L High 22-[address] [facility] Comment on above: Performed By: #### L 9000.0800 ####[facility] [address] [place], [address] Mode Not entered Normal [facility] Comment on above: Performed By: #### L 9000.0800 ####[facility] [address] [place], [address] O2 Delivery Dev Cannula Normal [facility] Comment on above: Performed By: #### L 9000.0800 ####[facility] [address] [place], [address] pCO2 66.2 mmHg High 35-45 [facility] Comment on above: Performed By: #### L 9000.0800 ####[facility] [address] [place], [address] pH (Bld) 7.43 [pH] Normal 7.35-7.45 [facility] Comment on above: Performed By: #### L 9000.0800 ####[facility] [address] [place], [address] PO2 132 mmHG High 75-100 [facility] Comment on above: Performed By: #### L 9000.0800 ####[facility] [address] [place], [address] SITE R Radial Normal [facility] Comment on above: Performed By: #### L 9000.0800 ####[facility] [address] [place], [address] SO2 99 Normal 95-99 [facility] Comment on above: Performed By: #### L 9000.0800 ####[facility] [address] [place], [address] Blood base excess determinat ionOrdered By: Mitchell Brian on 09-15-2025 Base excess Calc (BldV) [Moles/Vol] 20 mmol/L High -2-2 [facility] Blood bicarbonate measuremen tOrdered By: Mitchell Brian on 09-15-2025 HCO3 (Bld) [Moles/Vol] 44.3 mmol/L [facility] 22-[address] [facility] Measurement, pHOrdered By: Ángel Brian on 09-15-2025 pH (Unsp spec) 7.43 [pH] 7.35-7.45 [facility] No Panel InformationOrdered By: Mitchell Brian on 09-15-2025 Blood Gas Sample Site R Radial [facility] Blood Gas Specimen Type ART [facility] Blood Gas Vent Mode Not entered [facility] Oxygen Delivery Device Cannula [facility] Total carbon dioxide measure mentOrdered By: Mitchell Brian on 09-15-2025 CO2 [Moles/Vol] 46 mmol/L [facility] Laboratory - Chemistry and C hemistry - challengeOrdered By: Patsy Aguirre on 09-11-2025 Bilirubin Ql (U) Negative [facility] Glucose Ql (U) 1000 g/dL [facility] Ketones Ql (U) Negative [facility] pH (U) 6.5 [pH] [facility] Specific gravity (U) [Rel density] 1.010 [facility] Urobilinogen (U) [Mass/Vol] 0.4606334 mg/dL [facility] Laboratory - Hematology and Cell countsOrdered By: Patsy Aguirre on 09-11-2025 Hemoglobin Ql (U) Negative [facility] Laboratory - UrinalysisOrder ed By: Patsy Aguirre on 09-11-2025 Nitrite Ql (U) Negative [facility] Protein Ql (U) Negative [facility] MR/BMS.BUSon 09-11-2025 MR/BMS.TANA Normal [facility] No Panel InformationOrdered By: Patsy Aguirre on 09-11-2025 Urine Leukocytes Negatve [facility] Urine Non-Hemolyzed Blood Negative [facility] Low Dose CT Lung Screeningon 09-08-[address] Lung Screening Normal [facility] Surgery Visit Reporton 09-01 Surgery Visit Report Normal [facility] Laboratory - Chemistry and C hemistry - challengeOrdered By: Patsy Aguirre on 08-14-2025 Bilirubin Ql (U) Negative [facility] Glucose Ql (U) 500 g/dL [facility] Ketones Ql (U) Negative [facility] pH (U) 6 [pH] [facility] Specific gravity (U) [Rel density] 1.005 [facility] Urobilinogen (U) [Mass/Vol] Negative [facility] Laboratory - Hematology and Cell countsOrdered By: Patsy Aguirre on 08-14-2025 Hemoglobin Ql (U) Negative [facility] Laboratory - UrinalysisOrder ed By: Patsy Aguirre on 08-14-2025 Nitrite Ql (U) Negative [facility] Protein Ql (U) Negative [facility] MR/BMS.BUSon 08-14-2025 MR/BMS.BUS Normal [facility] No Panel InformationOrdered By: Patsy Aguirre on 08-14-2025 Urine Leukocytes Negatve [facility] Urine Non-Hemolyzed Blood Negative [facility] Anion gap in Serum or Plasma Ordered By: Yasmani Bruno on 08-03-2025 Anion gap [Moles/Vol] 11 mmol/L 5-15 [facility] BUN/creatinine ratioOrdered By: Yasmani Bruno on 08-03-2025 Urea nitrogen/Creatinine [Mass ratio] 20.8 mg/mg High 10-20 [facility] Bilirubin, totalOrdered By: Yasmani Bruno on 08-03-2025 Bilirubin [Mass/Vol] 0.19 mg/dL 0.00-1.30 [facility] CBC-Complete Blood Cnt No Di ffon 08-03-2025 Erythrocyte distribution width (RBC) [Ratio] 14.4 % Normal 11.6-14.6 [facility] Comment on above: Performed By: #### L 100.0500, L500.4050 ####[facility] [address] [place], [address] Hematocrit (Bld) [Volume fraction] 41.4 % Normal 37-47 [facility] Comment on above: Performed By: #### L 100.0500, L500.4050 ####[facility] [address] [place], [address] Hemoglobin (Bld) [Mass/Vol] 12.4 g/dL Normal 12.0-15.0 [facility] Comment on above: Performed By: #### L 100.0500, L500.4050 ####[facility] [address] [place], [address] MCH (RBC) [Entitic mass] 27.3 pg Normal 27.0-32.0 [facility] Comment on above: Performed By: #### L 100.0500, L500.4050 ####[facility] [address] [place], [address] MCHC (RBC) [Mass/Vol] 30.0 g/dL Low 32-36 [facility] Comment on above: Performed By: #### L 100.0500, L500.4050 ####[facility] [address] [place], [address] MCV (RBC) [Entitic vol] 91.2 fL Normal 81-[address] [facility] Comment on above: Performed By: #### L 100.0500, L500.4050 ####[facility] [address] [place], [address] Platelet mean volume (Bld) [Entitic vol] 10.5 fL Normal 6.2-12.0 [facility] Comment on above: Performed By: #### L 100.0500, L500.4050 ####[facility] [address] [place], [address] Platelets (Bld) [#/Vol] 335 10*3/uL Normal 150-450 [facility] Comment on above: Performed By: #### L 100.0500, L500.4050 ####[facility] [address] [place], [address] RBC (Bld) [#/Vol] 4.54 10*6/uL Normal 4.2-5.4 [facility] Comment on above: Performed By: #### L 100.0500, L500.4050 ####[facility] [address] [place], [address] RDW SD 48.3 fl High 35.1-43.9 [facility] Comment on above: Performed By: #### L 100.0500, L500.4050 ####[facility] [address] [place], [address] WBC (Bld) [#/Vol] 12.1 10*3/uL High 4.4-11.0 [facility] Comment on above: Performed By: #### L 100.0500, L500.4050 ####[facility] [address] [place], [address] Carbon dioxide, total [Moles /volume] in Central venous bloodOrdered By: Yasmani Bruno on 08-03-2025 CO2 [Moles/Vol] 33.0 mmol/L High 21.0-32.0 [facility] Chloride assayOrdered By: Radha Bruno on 08-03-2025 Chloride [Moles/Vol] 95 mmol/L Low 98-108 [facility] Comprehensive Metabolic Prof ilon 08-03-2025 Albumin [Mass/Vol] 4.0 g/dL Normal 3.4-4.8 [facility] Comment on above: Performed By: #### L 100.0500, L500.4050 ####[facility] [address] [place], [address] Albumin/Globulin [Mass ratio] 1.3 {ratio} Normal 0.9-2.4 [facility] Comment on above: Performed By: #### L 100.0500, L500.4050 ####[facility] [address] [place], [address] ALK PHOS 70 U/L Normal 35-104 [facility] Comment on above: Performed By: #### L 100.0500, L500.4050 ####[facility] [address] [place], [address] ALT [Catalytic activity/Vol] 11 U/L Normal <=34 [facility] Comment on above: Performed By: #### L 100.0500, L500.4050 ####[facility] [address] [place], [address] AST [Catalytic activity/Vol] 17 U/L Normal <=31 [facility] Comment on above: Performed By: #### L 100.0500, L500.4050 ####[facility] [address] [place], [address] Bilirubin [Mass/Vol] 0.19 mg/dL Normal 0.00-1.30 [facility] Comment on above: Performed By: #### L 100.0500, L500.4050 ####[facility] [address] [place], [address] BUN/CRE 20.8 RATIO High 10-20 [facility] Comment on above: Performed By: #### L 100.0500, L500.4050 ####[facility] [address] [place], [address] Calcium [Mass/Vol] 9.6 mg/dL Normal 7.6-11.0 [facility] Comment on above: Performed By: #### L 100.0500, L500.4050 ####[facility] [address] [place], [address] Chloride [Moles/Vol] 95 mmol/L Low 98-108 [facility] Comment on above: Performed By: #### L 100.0500, L500.4050 ####[facility] [address] [place], [address] CO2 [Moles/Vol] 33.0 mmol/L High 21.0-32.0 [facility] Comment on above: Performed By: #### L 100.0500, L500.4050 ####[facility] [address] [place], [address] Creatinine [Mass/Vol] 0.69 mg/dL Low 0.70-1.20 [facility] Comment on above: Performed By: #### L 100.0500, L500.4050 ####[facility] [address] [place], [address] GAP 11 Normal 5-15 [facility] Comment on above: Performed By: #### L 100.0500, L500.4050 ####[facility] [address] [place], [address] GFR/1.73 sq M.predicted among non-blacks MDRD (S/P/Bld) [Vol rate/Area] 93 mL/min/{1.73_m2} Normal >60 [facility] Comment on above: Result Comment: mL/m in/1.73m2 CKD-EPI Creatinine Equation (2020) Performed By: #### L 100.0500, L500.4050 ####[facility] [address] [place], [address] Globulin (S) [Mass/Vol] 3.1 g/dL Normal 2.2-4.2 [facility] Comment on above: Performed By: #### L 100.0500, L500.4050 ####[facility] [address] [place], [place], [address] Glucose [Mass/Vol] 128 mg/dL High 70-99 [facility] Comment on above: Performed By: #### L 100.0500, L500.4050 ####[facility] [address] [place], [address] Potassium [Moles/Vol] 4.0 mmol/L Normal 3.3-5.1 [facility] Comment on above: Performed By: #### L 100.0500, L500.4050 ####[facility] [address] [place], [address] Sodium [Moles/Vol] 140 mmol/L Normal 133-145 [facility] Comment on above: Performed By: #### L 100.0500, L500.4050 ####[facility] [address] [place], [address] T PROT 7.1 g/dL Normal 5.9-8.4 [facility] Comment on above: Performed By: #### L 100.0500, L500.4050 ####[facility] [address] [place], [address] Urea nitrogen [Mass/Vol] 14 mg/dL Normal 4-19 [facility] Comment on above: Performed By: #### L 100.0500, L500.4050 ####[facility] [address] [place], [place], [id number] Erythrocyte distribution wid th ratioOrdered By: Yasmani Bruno on 08-03-2025 Erythrocyte distribution width (RBC) [Ratio] 14.4 % 11.6-14.6 [facility] Erythrocyte distribution wid th standard deviationOrdered By: Yasmani Bruno on 08-03-2025 Erythrocyte distribution width (RBC) [Ratio] 48.3 fl High 35.1-43.9 [facility] Glomerular filtration rate ( GFR) estimation/1.73 sq m using serum, plasma, or whole bOrdered By: Yasmani Bruno on 08-03-2025 GFR/1.73 sq M.predicted among non-blacks MDRD (S/P/Bld) [Vol rate/Area] 93 mL/min/{1.73_m2} >60 [facility] Comment on above: mL/min/1.73m2 CKD-EP I Creatinine Equation (2020) Hematocrit Auto (Bld) [Volum e fraction]Ordered By: Yasmani Bruno on 08-03-2025 Hematocrit (Bld) [Volume fraction] 41.4 % 37-47 [facility] Hemoglobin measurementOrdere d By: Yasmani Bruno on 08-03-2025 Hemoglobin (Bld) [Mass/Vol] 12.4 g/dL 12.0-15.0 [facility] Laboratory - Chemistry and C hemistry - challengeOrdered By: Yasmani Bruno on 08-03-2025 AST [Catalytic activity/Vol] 17 U/L <32 [facility] MCV (mean corpuscular volume ) determinationOrdered By: Yasmani Bruno on 08-03-2025 MCV (RBC) [Entitic vol] 91.2 fL 81-[address] [facility] Magnesiumon 08-03-2025 Magnesium [Mass/Vol] 2.1 mg/dL Normal 1.5-2.2 [facility] Comment on above: Order Comment: Order Date: 05/21/25Order Info: [id number] - MGOrder Info: [id number] - K Performed By: #### L 501.5200, L501.5600 ####[facility] [address] [place], [address] Magnesium measurement (mass/ volume)Ordered By: Genia Chappell on 08-03-2025 Magnesium (Unsp spec) [Mass/Vol] 2.1 mg/dL 1.5-2.2 [facility] Mean corpuscular hemoglobin (MCH) determinationOrdered By: Yasmani Bruno on 08-03-2025 MCH (RBC) [Entitic mass] 27.3 pg 27.0-32.0 [facility] Mean corpuscular hemoglobin concentration (MCHC) determinationOrdered By: Yasmani Bruno on 08-03-2025 MCHC (RBC) [Mass/Vol] 30.0 g/dL Low 32-36 [facility] Mean platelet volume determi nationOrdered By: Yasmani Bruno on 08-03-2025 Platelet mean volume (Bld) [Entitic vol] 10.5 fL 6.2-12.0 [facility] Platelet countOrdered By: Radha Bruno on 08-03-2025 Platelets (Bld) [#/Vol] 335 10*3/uL 150-450 [facility] Potassiumon 08-03-2025 Potassium [Moles/Vol] 4.0 mmol/L Normal 3.3-5.1 [facility] Comment on above: Order Comment: Order Date: 05/21/25Order Info: [id number] - MGOrder Info: [id number] - K Performed By: #### L 501.5200, L501.5600 ####[facility] [address] [place], [address] Potassium measurement (mass/ volume)Ordered By: Genia Chappell on 08-03-2025 Potassium (Unsp spec) [Mass/Vol] 4.0 mmol/L 3.3-5.1 [facility] RBC Auto (Bld) [#/Vol]Ordere d By: Yasmani Bruno on 08-03-2025 RBC (Bld) [#/Vol] 4.54 10*6/uL 4.2-5.4 [facility] Serum creatinine measurement (mass/volume)Ordered By: Yasmani Bruno on 08-03-2025 Creatinine [Mass/Vol] 0.69 mg/dL Low 0.70-1.20 [facility] Serum globulin measurementOr dered By: Yasmani Bruno on 08-03-2025 Globulin (S) [Mass/Vol] 3.1 g/dL 2.2-4.2 [facility] Serum glucose measurement (m ass/volume)Ordered By: Yasmani Bruno on 08-03-2025 Glucose [Mass/Vol] 128 mg/dL High 70-99 [facility] Serum or plasma alanine garza otransferase (ALT) measurementOrdered By: Yasmani Bruno on 08-03-2025 ALT [Catalytic activity/Vol] 11 U/L <35 [facility] Serum or plasma albumin diallo urement (mass/volume)Ordered By: Yasmani Bruno on 08-03-2025 Albumin [Mass/Vol] 4.0 g/dL 3.4-4.8 [facility] Serum or plasma albumin/glob ulin mass ratioOrdered By: Yasmani Bruno on 08-03-2025 Albumin/Globulin [Mass ratio] 1.3 {ratio} 0.9-2.4 [facility] Serum or plasma alkaline pati sphatase measurementOrdered By: Yasmani Bruno on 08-03-2025 ALP [Catalytic activity/Vol] 70 U/L 35-104 [facility] Serum or plasma calcium diallo urement (mass/volume)Ordered By: Yasmani Bruno on 08-03-2025 Calcium [Mass/Vol] 9.6 mg/dL 7.6-11.0 [facility] Serum or plasma urea nitroge n measurement (mass/volume)Ordered By: Yasmani Bruno on 08-03-2025 Urea nitrogen [Mass/Vol] 14 mg/dL 4- [facility] Sodium levelOrdered By: Nestor warren Kiana on 08-03-2025 Sodium [Moles/Vol] 140 mmol/L 133-145 [facility] Total proteinOrdered By: Henrry mariela Kiana on 08-03-2025 Protein [Mass/Vol] 7.1 g/dL 5.9-8.4 [facility] White blood cell (WBC) count Ordered By: Yasmani Bruno on 08-03-2025 WBC (Bld) [#/Vol] 12.1 10*3/uL High 4.4-11.0 [facility] Cardiology Visit Reporton Cardiology Visit Report Normal [facility] Brain/Head without Contrasto 06-03-2025 Brain/Head without Contrast Normal [facility] Cardiology Visit Reporton Cardiology Visit Report Normal [facility] Absolute lymphocyte countOrd ered By: Husam Young on 05-14-2025 Lymphocytes Auto (Unsp spec) [#/Vol] 1.60 10*3/uL 0.83-4.51 [facility] Absolute neutrophil countOrd ered By: Husam Young on 05-14-2025 Neutrophils (Bld) [#/Vol] 11.5 10*3/uL High 2.0-7.7 [facility] Anion gap in Serum or Plasma Ordered By: Chandni Courtney on 05-14-2025 Anion gap [Moles/Vol] 8 mmol/L 5- [facility] Automated lymphocyte count a s percentage of total leukocytesOrdered By: Husam Young on 05-14-2025 Lymphocytes/100 WBC Auto (Unsp spec) 10.7 % Low 19- [facility] BUN/creatinine ratioOrdered By: Chandni Courtney on 05-14-2025 Urea nitrogen/Creatinine [Mass ratio] 21.9 mg/mg High 10- [facility] Basic Metabolic Profile (BMP )on 05-14-2025 BUN/CRE 21.9 RATIO High - [facility] Comment on above: Performed By: #### L 500.2500, L501.7510 ####[facility] [address] [place], [address] Calcium [Mass/Vol] 9.3 mg/dL Normal 7.6-11.0 [facility] Comment on above: Performed By: #### L 500.2500, L501.7510 ####[facility] [address] [place], [address] Chloride [Moles/Vol] 92 mmol/L Low 98-108 [facility] Comment on above: Performed By: #### L 500.2500, L501.7510 ####[facility] [address] [place], [address] CO2 [Moles/Vol] 36.8 mmol/L High 21.0-32.0 [facility] Comment on above: Performed By: #### L 500.2500, L501.7510 ####[facility] [address] [place], [address] Creatinine [Mass/Vol] 0.64 mg/dL Low 0.70-1.20 [facility] Comment on above: Performed By: #### L 500.2500, L501.7510 ####[facility] [address] [place], [address] GAP 8 Normal 5-15 [facility] Comment on above: Performed By: #### L 500.2500, L501.7510 ####[facility] [address] [place], [address] GFR/1.73 sq M.predicted among non-blacks MDRD (S/P/Bld) [Vol rate/Area] 95 mL/min/{1.73_m2} Normal >60 [facility] Comment on above: Result Comment: mL/m in/1.73m2 CKD-EPI Creatinine Equation (2020) Performed By: #### L 500.2500, L501.7510 ####[facility] [address] [place], [address] Glucose [Mass/Vol] 127 mg/dL High 70-99 [facility] Comment on above: Performed By: #### L 500.2500, L501.7510 ####[facility] [address] [place], [address] Potassium [Moles/Vol] 4.0 mmol/L Normal 3.3-5.1 [facility] Comment on above: Performed By: #### L 500.2500, L501.7510 ####[facility] [address] [place], [address] Sodium [Moles/Vol] 137 mmol/L Normal 133-145 [facility] Comment on above: Performed By: #### L 500.2500, L501.7510 ####[facility] [address] [place], [address] Urea nitrogen [Mass/Vol] 14 mg/dL Normal 4-19 [facility] Comment on above: Performed By: #### L 500.2500, L501.7510 ####[facility] [address] [place], [address] Basophil percentageOrdered B y: Husam Young on 05-14-2025 Basophils/100 WBC (Bld) 0.5 % 0-[address] [facility] CBC W/Diff, Automatedon 04-26 Absolute Lymph 1.60 X10 3/uL Normal 0.83-4.51 [facility] Comment on above: Performed By: #### L 501.9520, L100.0100, L503.7505 ####[facility] [address] [place], [address] Absolute Neut 11.5 X10 3/uL High 2.0-7.7 [facility] Comment on above: Performed By: #### L 501.9520, L100.0100, L503.7505 ####[facility] [address] [place], [address] Basophils/100 WBC (Bld) 0.5 % Normal 0-[address] [facility] Comment on above: Performed By: #### L 501.9520, L100.0100, L503.7505 ####[facility] [address] [place], [address] Eosinophils/100 WBC (Bld) 0.1 % Normal 0-5 [facility] Comment on above: Performed By: #### L 501.9520, L100.0100, L503.7505 ####[facility] [address] [place], [address] Erythrocyte distribution width (RBC) [Ratio] 15.3 % High 11.6-14.6 [facility] Comment on above: Performed By: #### L 501.9520, L100.0100, L503.7505 ####[facility] [address] [place], [address] Hematocrit (Bld) [Volume fraction] 38.4 % Normal 37-47 [facility] Comment on above: Performed By: #### L 501.9520, L100.0100, L503.7505 ####[facility] [address] [place], [address] Hemoglobin (Bld) [Mass/Vol] 11.6 g/dL Low 12.0-15.0 [facility] Comment on above: Performed By: #### L 501.9520, L100.0100, L503.7505 ####[facility] [address] [place], [address] IG% 2.100 High 0.0-0.9 [facility] Comment on above: Result Comment: IG% - Immature Granulocytes (promyelocytes, myelocytes andmetamyelocytes) > 1% indicates that a LEFT SHIFT is Present. Performed By: #### L 501.9520, L100.0100, L503.7505 ####[facility] [address] [place], [address] Lymphocytes/100 WBC (Bld) 10.7 % Low 19-41 [facility] Comment on above: Performed By: #### L 501.9520, L100.0100, L503.7505 ####[facility] [address] [place], [address] MCH (RBC) [Entitic mass] 28.7 pg Normal 27.0-32.0 [facility] Comment on above: Performed By: #### L 501.9520, L100.0100, L503.7505 ####[facility] [address] [place], [address] MCHC (RBC) [Mass/Vol] 30.2 g/dL Low 32-36 [facility] Comment on above: Performed By: #### L 501.9520, L100.0100, L503.7505 ####[facility] [address] [place], [address] MCV (RBC) [Entitic vol] 95.0 fL Normal 81-99 [facility] Comment on above: Performed By: #### L 501.9520, L100.0100, L503.7505 ####[facility] [address] [place], [address] Monocytes/100 WBC (Bld) 9.6 % Normal 0-10 [facility] Comment on above: Performed By: #### L 501.9520, L100.0100, L503.7505 ####[facility] [address] [place], [address] Neutrophils/100 WBC (Bld) 77.0 % High 47-70 [facility] Comment on above: Performed By: #### L 501.9520, L100.0100, L503.7505 ####[facility] [address] [place], [address] Nucleated RBC (Bld) [#/Vol] 0 10*3/uL Normal 0-5 [facility] Comment on above: Performed By: #### L 501.9520, L100.0100, L503.7505 ####[facility] [address] [place], [address] Platelet mean volume (Bld) [Entitic vol] 9.8 fL Normal 6.2-12.0 [facility] Comment on above: Performed By: #### L 501.9520, L100.0100, L503.7505 ####[facility] [address] [place], [address] Platelets (Bld) [#/Vol] 452 10*3/uL High 150-450 [facility] Comment on above: Performed By: #### L 501.9520, L100.0100, L503.7505 ####[facility] [address] [place], [address] RBC (Bld) [#/Vol] 4.04 10*6/uL Low 4.2-5.4 [facility] Comment on above: Performed By: #### L 501.9520, L100.0100, L503.7505 ####[facility] [address] [place], [address] RDW SD 53.4 fl High 35.1-43.9 [facility] Comment on above: Performed By: #### L 501.9520, L100.0100, L503.7505 ####[facility] [address] [place], [address] WBC (Bld) [#/Vol] 15.0 10*3/uL High 4.4-11.0 [facility] Comment on above: Performed By: #### L 501.9520, L100.0100, L503.7505 ####[facility] [address] [place], [place], [id number] Carbon dioxide, total [Moles /volume] in Central venous bloodOrdered By: Chandni Courtney on 05-14-2025 CO2 [Moles/Vol] 36.8 mmol/L High 21.0-32.0 [facility] Cardiology Visit Reporton Cardiology Visit Report Normal [facility] Chloride assayOrdered By: Srikanth Courtney on 05-14-2025 Chloride [Moles/Vol] 92 mmol/L Low 98-108 [facility] Digoxin Levelon 05-14-2025 DIG 1.84 ng/mL Normal 0.00-2.00 [facility] Comment on above: Performed By: #### L 500.2500, L501.7510 ####[facility] [address] [place], [place], [id number] Eosinophil percentageOrdered By: Husam Young on 05-14-2025 Eosinophils/100 WBC (Bld) 0.1 % 0-5 [facility] Erythrocyte distribution wid th ratioOrdered By: Husam Young on 05-14-2025 Erythrocyte distribution width (RBC) [Ratio] 15.3 % High 11.6-14.6 [facility] Erythrocyte distribution wid th standard deviationOrdered By: Husam Young on 05-14-2025 Erythrocyte distribution width (RBC) [Ratio] 53.4 fl High 35.1-43.9 [facility] Glomerular filtration rate ( GFR) estimation/1.73 sq m using serum, plasma, or whole bOrdered By: Chandni Courtney on 05-14-2025 GFR/1.73 sq M.predicted among non-blacks MDRD (S/P/Bld) [Vol rate/Area] 95 mL/min/{1.73_m2} >60 [facility] Comment on above: mL/min/1.73m2 CKD-EP I Creatinine Equation (2020) Hematocrit Auto (Bld) [Volum e fraction]Ordered By: Husam Young on 05-14-2025 Hematocrit (Bld) [Volume fraction] 38.4 % 37-47 [facility] Hemoglobin measurementOrdere d By: Husam Young on 05-14-2025 Hemoglobin (Bld) [Mass/Vol] 11.6 g/dL Low 12.0-15.0 [facility] Immature granulocytes/100 WB C Auto (Bld)Ordered By: Husam Young on 05-14-2025 Immature granulocytes/100 WBC (Bld) 2.100 % High 0.0-0.9 [facility] Comment on above: IG% - Immature Granu locytes (promyelocytes, myelocytes and metamyelocytes) > 1% indicates that a LEFT SHIFT is Present. L503.7505on 05-14-2025 Natriuretic peptide B (Bld) [Mass/Vol] 704 pg/mL Normal <=900 [facility] Comment on above: Result Comment: Hear t Failure Unlikely: < 300 pg/mLHeart Failure Likely< 50 Years: > 450 pg/mL50-75 Years: > 900 pg/mL>75 Years: > 1800 pg/mL Performed By: #### L 501.9520, L100.0100, L503.7505 ####[facility] [address] [place], [address] MCV (mean corpuscular volume ) determinationOrdered By: Husam Young on 05-14-2025 MCV (RBC) [Entitic vol] 95.0 fL 81-[address] [facility] Mean corpuscular hemoglobin (MCH) determinationOrdered By: Husam Young on 05-14-2025 MCH (RBC) [Entitic mass] 28.7 pg 27.0-32.0 [facility] Mean corpuscular hemoglobin concentration (MCHC) determinationOrdered By: Husam Young on 05-14-2025 MCHC (RBC) [Mass/Vol] 30.2 g/dL Low 32-36 [facility] Mean platelet volume determi nationOrdered By: Husam Young on 05-14-2025 Platelet mean volume (Bld) [Entitic vol] 9.8 fL 6.2-12.0 [facility] Monocyte percentageOrdered B y: Husam Young on 05-14-2025 Monocytes/100 WBC (Bld) 9.6 % 0-[address] [facility] Natriuretic peptide.B prohor inessa N-Terminal [Mass/volume] in Serum or PlasmaOrdered By: Husam Young on 05-14-2025 Natriuretic peptide.B prohormone N-Terminal [Mass/Vol] 704 pg/mL <900 [facility] Comment on above: Heart Failure Unlike ly: < 300 pg/mLHeart Failure Likely< 50 Years: > 450 pg/mL50-75 Years: > 900 pg/mL>75 Years: > 1800 pg/mL Neutrophil percentageOrdered By: Husam Young on 05-14-2025 Neutrophils/100 WBC (Bld) 77.0 % High 47-70 [facility] Nucleated red blood cell per centageOrdered By: Husam Young on 05-14-2025 Nucleated RBC/100 WBC (Bld) [Ratio] 0 % 0-5 [facility] Platelet countOrdered By: Cheryl Young on 05-14-2025 Platelets (Bld) [#/Vol] 452 10*3/uL High 150-450 [facility] Potassium measurement (mass/ volume)Ordered By: Chandni Courtnye on 05-14-2025 Potassium (Unsp spec) [Mass/Vol] 4.0 mmol/L 3.3-5.1 [facility] RBC Auto (Bld) [#/Vol]Ordere d By: Husam Young on 05-14-2025 RBC (Bld) [#/Vol] 4.04 10*6/uL Low 4.2-5.4 [facility] Serum creatinine measurement (mass/volume)Ordered By: Chandni Courtney on 05-14-2025 Creatinine [Mass/Vol] 0.64 mg/dL Low 0.70-1.20 [facility] Serum glucose measurement (m ass/volume)Ordered By: Chandni Courtney on 05-14-2025 Glucose [Mass/Vol] 127 mg/dL High 70-99 [facility] Serum or plasma calcium diallo urement (mass/volume)Ordered By: Chandni Courtney on 05-14-2025 Calcium [Mass/Vol] 9.3 mg/dL 7.6-11.0 [facility] Serum or plasma digoxin diallo urement (mass/volume)Ordered By: Chandni Courtney on 05-14-2025 Digoxin [Mass/Vol] 1.84 ng/mL 0.00-2.00 [facility] Serum or plasma urea nitroge n measurement (mass/volume)Ordered By: Chandni Courtney on 05-14-2025 Urea nitrogen [Mass/Vol] 14 mg/dL 4- [facility] Sodium levelOrdered By: Heraclio Courtney on 05-14-2025 Sodium [Moles/Vol] 137 mmol/L 133-145 [facility] TSH DL <= 0.005 mIU/L QnOrde red By: Husam Young on 05-14-2025 TSH Qn 2.780 uIU/mL 0.300-4.200 [facility] Thyroid Stim Hormone (TSH)on 05-14-2025 TSH 2.780 uIU/mL Normal 0.300-4.200 [facility] Comment on above: Performed By: #### L 501.9520, L100.0100, L503.7505 ####[facility] [address] [place], [place], [address] White blood cell (WBC) count Ordered By: Husam Young on 05-14-2025 WBC (Bld) [#/Vol] 15.0 10*3/uL High 4.4-11.0 [facility] Absolute lymphocyte countOrd ered By: Cindi Lizarraga on 05-08-2025 Lymphocytes Auto (Unsp spec) [#/Vol] 1.82 10*3/uL 0.83-4.51 [facility] Absolute neutrophil countOrd ered By: Cindi Lizarraga on 05-08-2025 Neutrophils (Bld) [#/Vol] 9.3 10*3/uL High 2.0-7.7 [facility] Anion gap in Serum or Plasma Ordered By: Cindi Lizarraga on 05-08-2025 Anion gap [Moles/Vol] 7 mmol/L 5-15 [facility] Automated lymphocyte count a s percentage of total leukocytesOrdered By: Cindi Lizarraga on 05-08-2025 Lymphocytes/100 WBC Auto (Unsp spec) 14.1 % Low 19-41 [facility] BUN/creatinine ratioOrdered By: Cindi Lizarraga on 05-08-2025 Urea nitrogen/Creatinine [Mass ratio] 21.6 mg/mg High 10-20 [facility] Basic Metabolic Profile (BMP )on 05-08-2025 BUN/CRE 21.6 RATIO High - [facility] Comment on above: Performed By: #### L 500.2500, L100.0100 ####[facility] [address] [place], [address] Calcium [Mass/Vol] 9.3 mg/dL Normal 7.6-11.0 [facility] Comment on above: Performed By: #### L 500.2500, L100.0100 ####[facility] [address] [place], [address] Chloride [Moles/Vol] 90 mmol/L Low 98-108 [facility] Comment on above: Performed By: #### L 500.2500, L100.0100 ####[facility] [address] [place], [address] CO2 [Moles/Vol] 39.4 mmol/L High 21.0-32.0 [facility] Comment on above: Performed By: #### L 500.2500, L100.0100 ####[facility] [address] [place], [address] Creatinine [Mass/Vol] 0.71 mg/dL Normal 0.70-1.20 [facility] Comment on above: Performed By: #### L 500.2500, L100.0100 ####[facility] [address] [place], [address] ECRCL 72.15 ml/min Normal 50-250 [facility] Comment on above: Performed By: #### L 500.2500, L100.0100 ####[facility] [address] [place], [address] GAP 7 Normal 5-15 [facility] Comment on above: Performed By: #### L 500.2500, L100.0100 ####[facility] [address] [place], [address] GFR/1.73 sq M.predicted among non-blacks MDRD (S/P/Bld) [Vol rate/Area] 91 mL/min/{1.73_m2} Normal >60 [facility] Comment on above: Result Comment: mL/m in/1.73m2 CKD-EPI Creatinine Equation (2020) Performed By: #### L 500.2500, L100.0100 ####[facility] [address] [place], [address] Glucose [Mass/Vol] 113 mg/dL High 70-99 [facility] Comment on above: Performed By: #### L 500.2500, L100.0100 ####[facility] [address] [place], [address] Potassium [Moles/Vol] 3.7 mmol/L Normal 3.3-5.1 [facility] Comment on above: Performed By: #### L 500.2500, L100.0100 ####[facility] [address] [place], [address] Sodium [Moles/Vol] 136 mmol/L Normal 133-145 [facility] Comment on above: Performed By: #### L 500.2500, L100.0100 ####[facility] [address] [place], [address] Urea nitrogen [Mass/Vol] 15 mg/dL Normal 4-19 [facility] Comment on above: Performed By: #### L 500.2500, L100.0100 ####[facility] [address] [place], [address] Basophil percentageOrdered B y: Cindi Lizarraga on 05-08-2025 Basophils/100 WBC (Bld) 0.5 % 0-[address] [facility] CBC W/Diff, Automatedon 04-26 Absolute Lymph 1.82 X10 3/uL Normal 0.83-4.51 [facility] Comment on above: Performed By: #### L 500.2500, L100.0100 ####[facility] [address] [place], [address] Absolute Neut 9.3 X10 3/uL High 2.0-7.7 [facility] Comment on above: Performed By: #### L 500.2500, L100.0100 ####[facility] [address] [place], [address] Basophils/100 WBC (Bld) 0.5 % Normal 0-[address] [facility] Comment on above: Performed By: #### L 500.2500, L100.0100 ####[facility] [address] [place], [address] Eosinophils/100 WBC (Bld) 0.6 % Normal 0-5 [facility] Comment on above: Performed By: #### L 500.2500, L100.0100 ####[facility] [address] [place], [address] Erythrocyte distribution width (RBC) [Ratio] 15.0 % High 11.6-14.6 [facility] Comment on above: Performed By: #### L 500.2500, L100.0100 ####[facility] [address] [place], [address] Hematocrit (Bld) [Volume fraction] 37.5 % Normal 37-47 [facility] Comment on above: Performed By: #### L 500.2500, L100.0100 ####[facility] [address] [place], [address] Hemoglobin (Bld) [Mass/Vol] 11.6 g/dL Low 12.0-15.0 [facility] Comment on above: Performed By: #### L 500.2500, L100.0100 ####[facility] [address] [place], [address] IG% 1.400 High 0.0-0.9 [facility] Comment on above: Result Comment: IG% - Immature Granulocytes (promyelocytes, myelocytes andmetamyelocytes) > 1% indicates that a LEFT SHIFT is Present. Performed By: #### L 500.2500, L100.0100 ####[facility] [address] [place], [address] Lymphocytes/100 WBC (Bld) 14.1 % Low 19-41 [facility] Comment on above: Performed By: #### L 500.2500, L100.0100 ####[facility] [address] [place], [address] MCH (RBC) [Entitic mass] 28.8 pg Normal 27.0-32.0 [facility] Comment on above: Performed By: #### L 500.2500, L100.0100 ####[facility] [address] [place], [address] MCHC (RBC) [Mass/Vol] 30.9 g/dL Low 32-36 [facility] Comment on above: Performed By: #### L 500.2500, L100.0100 ####[facility] [address] [place], [address] MCV (RBC) [Entitic vol] 93.1 fL Normal 81-99 [facility] Comment on above: Performed By: #### L 500.2500, L100.0100 ####[facility] [address] [place], [address] Monocytes/100 WBC (Bld) 11.0 % High 0-[address] [facility] Comment on above: Performed By: #### L 500.2500, L100.0100 ####[facility] [address] [place], [address] Neutrophils/100 WBC (Bld) 72.4 % High 47-70 [facility] Comment on above: Performed By: #### L 500.2500, L100.0100 ####[facility] [address] [place], [address] Nucleated RBC (Bld) [#/Vol] 0 10*3/uL Normal 0-5 [facility] Comment on above: Performed By: #### L 500.2500, L100.0100 ####[facility] [address] [place], [address] Platelet mean volume (Bld) [Entitic vol] 9.3 fL Normal 6.2-12.0 [facility] Comment on above: Performed By: #### L 500.2500, L100.0100 ####[facility] [address] [place], [address] Platelets (Bld) [#/Vol] 437 10*3/uL Normal 150-450 [facility] Comment on above: Performed By: #### L 500.2500, L100.0100 ####[facility] [address] [place], [address] RBC (Bld) [#/Vol] 4.03 10*6/uL Low 4.2-5.4 [facility] Comment on above: Performed By: #### L 500.2500, L100.0100 ####[facility] [address] [place], [address] RDW SD 51.6 fl High 35.1-43.9 [facility] Comment on above: Performed By: #### L 500.2500, L100.0100 ####[facility] [address] [place], [address] WBC (Bld) [#/Vol] 12.9 10*3/uL High 4.4-11.0 [facility] Comment on above: Performed By: #### L 500.2500, L100.0100 ####[facility] [address] [place], [place], [id number] Carbon dioxide, total [Moles /volume] in Central venous bloodOrdered By: Cnidi Lizarraga on 05-08-2025 CO2 [Moles/Vol] 39.4 mmol/L High 21.0-32.0 [facility] Chloride assayOrdered By: Na na Zia on 05-08-2025 Chloride [Moles/Vol] 90 mmol/L Low 98-108 [facility] Discharge Instructionon 04-26 Discharge Instruction Normal [facility] Eosinophil percentageOrdered By: Cindi Lizarraga on 05-08-2025 Eosinophils/100 WBC (Bld) 0.6 % 0-5 [facility] Erythrocyte distribution wid th ratioOrdered By: Cindi Lizarraga on 05-08-2025 Erythrocyte distribution width (RBC) [Ratio] 15.0 % High 11.6-14.6 [facility] Erythrocyte distribution wid th standard deviationOrdered By: Cindi Lizarraga on 05-08-2025 Erythrocyte distribution width (RBC) [Ratio] 51.6 fl High 35.1-43.9 [facility] Glomerular filtration rate ( GFR) estimation/1.73 sq m using serum, plasma, or whole bOrdered By: Cindi Lizarraga on 05-08-2025 GFR/1.73 sq M.predicted among non-blacks MDRD (S/P/Bld) [Vol rate/Area] 91 mL/min/{1.73_m2} >60 [facility] Comment on above: mL/min/1.73m2 CKD-EP I Creatinine Equation (2020) Hematocrit Auto (Bld) [Volum e fraction]Ordered By: Cindi Lizarraga on 05-08-2025 Hematocrit (Bld) [Volume fraction] 37.5 % 37-47 [facility] Hemoglobin measurementOrdere d By: Cindi Lizarraga on 05-08-2025 Hemoglobin (Bld) [Mass/Vol] 11.6 g/dL Low 12.0-15.0 [facility] Immature granulocytes/100 WB C Auto (Bld)Ordered By: Cindi Lizarraga on 05-08-2025 Immature granulocytes/100 WBC (Bld) 1.400 % High 0.0-0.9 [facility] Comment on above: IG% - Immature Granu locytes (promyelocytes, myelocytes and metamyelocytes) > 1% indicates that a LEFT SHIFT is Present. MCV (mean corpuscular volume ) determinationOrdered By: Cindi Lizarraga on 05-08-2025 MCV (RBC) [Entitic vol] 93.1 fL 81-[address] [facility] Mean corpuscular hemoglobin (MCH) determinationOrdered By: Cindi Lizarraga on 05-08-2025 MCH (RBC) [Entitic mass] 28.8 pg 27.0-32.0 [facility] Mean corpuscular hemoglobin concentration (MCHC) determinationOrdered By: Cindi Lizarraga on 05-08-2025 MCHC (RBC) [Mass/Vol] 30.9 g/dL Low 32-36 [facility] Mean platelet volume determi nationOrdered By: Cindi Lizarraga on 05-08-2025 Platelet mean volume (Bld) [Entitic vol] 9.3 fL 6.2-12.0 [facility] Monocyte percentageOrdered B y: Cindi Lizarraga on 05-08-2025 Monocytes/100 WBC (Bld) 11.0 % High 0-[address] [facility] Neutrophil percentageOrdered By: Cindi Lizarraga on 05-08-2025 Neutrophils/100 WBC (Bld) 72.4 % High 47-70 [facility] Nucleated red blood cell per centageOrdered By: Cindi Lizarraga 05-08-2025 Nucleated RBC/100 WBC (Bld) [Ratio] 0 % 0-5 [facility] Platelet countOrdered By: Na antonette Lizarraga on 05-08-2025 Platelets (Bld) [#/Vol] 437 10*3/uL 150-450 [facility] Potassium measurement (mass/ volume)Ordered By: Cindi Lizarraga on 05-08-2025 Potassium (Unsp spec) [Mass/Vol] 3.7 mmol/L 3.3-5.1 [facility] RBC Auto (Bld) [#/Vol]Ordere d By: Cindi Lizarraga on 05-08-2025 RBC (Bld) [#/Vol] 4.03 10*6/uL Low 4.2-5.4 [facility] Serum creatinine measurement (mass/volume)Ordered By: Cindi Lizarraga on 05-08-2025 Creatinine [Mass/Vol] 0.71 mg/dL 0.70-1.20 [facility] Serum glucose measurement (m ass/volume)Ordered By: Cindi Lizarraga on 05-08-2025 Glucose [Mass/Vol] 113 mg/dL High 70-99 [facility] Serum or plasma calcium diallo urement (mass/volume)Ordered By: Cindi Lizarraga on 05-08-2025 Calcium [Mass/Vol] 9.3 mg/dL 7.6-11.0 [facility] Serum or plasma urea nitroge n measurement (mass/volume)Ordered By: Cindi Lizarraga on 05-08-2025 Urea nitrogen [Mass/Vol] 15 mg/dL 4-19 [facility] Sodium levelOrdered By: Cindi Lizarraga on 05-08-2025 Sodium [Moles/Vol] 136 mmol/L 133-145 [facility] White blood cell (WBC) count Ordered By: Cindi Lizarraga on 05-08-2025 WBC (Bld) [#/Vol] 12.9 10*3/uL High 4.4-11.0 [facility] Absolute lymphocyte countOrd ered By: Vannesa Camejo on 05-07-2025 Lymphocytes Auto (Unsp spec) [#/Vol] 1.75 10*3/uL 0.83-4.51 [facility] Anion gap in Serum or Plasma Ordered By: Vannesa Camejo on 05-07-2025 Anion gap [Moles/Vol] 11 mmol/L 5-15 [facility] Automated lymphocyte count a s percentage of total leukocytesOrdered By: Vannesa Camejo on 05-07-2025 Lymphocytes/100 WBC Auto (Unsp spec) 14.6 % Low 19-41 [facility] BUN/creatinine ratioOrdered By: Vannesa Camejo on 05-07-2025 Urea nitrogen/Creatinine [Mass ratio] 22.0 mg/mg High 10-20 [facility] Basophil percentageOrdered B y: Vannesa Camejo on 05-07-2025 Basophils/100 WBC (Bld) 0.7 % 0-[address] [facility] Bilirubin Test strip Ql (U)O rdered By: Cindi Lizarraga on 05-07-2025 Bilirubin Ql (U) Negative Negative [facility] Bilirubin, totalOrdered By: Vannesa Camejo on 05-07-2025 Bilirubin [Mass/Vol] 0.48 mg/dL 0.00-1.30 [facility] CBC W/Diff, Automatedon 04-26 Absolute Lymph 1.75 X10 3/uL Normal 0.83-4.51 [facility] Comment on above: Performed By: #### L 501.2300, L100.0100, L500.4050 ####[facility] [address] [place], [address] Absolute Neut 8.4 X10 3/uL High 2.0-7.7 [facility] Comment on above: Performed By: #### L 501.2300, L100.0100, L500.4050 ####[facility] [address] [place], [address] Basophils/100 WBC (Bld) 0.7 % Normal 0-1 [facility] Comment on above: Performed By: #### L 501.2300, L100.0100, L500.4050 ####[facility] [address] [place], [address] Eosinophils/100 WBC (Bld) 1.9 % Normal 0-5 [facility] Comment on above: Performed By: #### L 501.2300, L100.0100, L500.4050 ####[facility] [address] [place], [address] Erythrocyte distribution width (RBC) [Ratio] 15.5 % High 11.6-14.6 [facility] Comment on above: Performed By: #### L 501.2300, L100.0100, L500.4050 ####[facility] [address] [place], [address] Hematocrit (Bld) [Volume fraction] 40.1 % Normal 37-47 [facility] Comment on above: Performed By: #### L 501.2300, L100.0100, L500.4050 ####[facility] [address] [place], [address] Hemoglobin (Bld) [Mass/Vol] 12.1 g/dL Normal 12.0-15.0 [facility] Comment on above: Performed By: #### L 501.2300, L100.0100, L500.4050 ####[facility] [address] [place], [address] IG% 1.500 High 0.0-0.9 [facility] Comment on above: Result Comment: IG% - Immature Granulocytes (promyelocytes, myelocytes andmetamyelocytes) > 1% indicates that a LEFT SHIFT is Present. Performed By: #### L 501.2300, L100.0100, L500.4050 ####[facility] [address] [place], [address] Lymphocytes/100 WBC (Bld) 14.6 % Low 19-41 [facility] Comment on above: Performed By: #### L 501.2300, L100.0100, L500.4050 ####[facility] [address] [place], [address] MCH (RBC) [Entitic mass] 28.7 pg Normal 27.0-32.0 [facility] Comment on above: Performed By: #### L 501.2300, L100.0100, L500.4050 ####[facility] [address] [place], [address] MCHC (RBC) [Mass/Vol] 30.2 g/dL Low 32-36 [facility] Comment on above: Performed By: #### L 501.2300, L100.0100, L500.4050 ####[facility] [address] [place], [address] MCV (RBC) [Entitic vol] 95.0 fL Normal 81-[address] [facility] Comment on above: Performed By: #### L 501.2300, L100.0100, L500.4050 ####[facility] [address] [place], [address] Monocytes/100 WBC (Bld) 11.7 % High 0-[address] [facility] Comment on above: Performed By: #### L 501.2300, L100.0100, L500.4050 ####[facility] [address] [place], [address] Neutrophils/100 WBC (Bld) 69.6 % Normal 47-70 [facility] Comment on above: Performed By: #### L 501.2300, L100.0100, L500.4050 ####[facility] [address] [place], [address] Nucleated RBC (Bld) [#/Vol] 0 10*3/uL Normal 0-5 [facility] Comment on above: Performed By: #### L 501.2300, L100.0100, L500.4050 ####[facility] [address] [place], [address] Platelet mean volume (Bld) [Entitic vol] 9.3 fL Normal 6.2-12.0 [facility] Comment on above: Performed By: #### L 501.2300, L100.0100, L500.4050 ####[facility] [address] [place], [address] Platelets (Bld) [#/Vol] 362 10*3/uL Normal 150-450 [facility] Comment on above: Performed By: #### L 501.2300, L100.0100, L500.4050 ####[facility] [address] [place], [address] RBC (Bld) [#/Vol] 4.22 10*6/uL Normal 4.2-5.4 [facility] Comment on above: Performed By: #### L 501.2300, L100.0100, L500.4050 ####[facility] [address] [place], [address] RDW SD 53.5 fl High 35.1-43.9 [facility] Comment on above: Performed By: #### L 501.2300, L100.0100, L500.4050 ####[facility] [address] [place], [address] WBC (Bld) [#/Vol] 12.0 10*3/uL High 4.4-11.0 [facility] Comment on above: Performed By: #### L 501.2300, L100.0100, L500.4050 ####[facility] [address] [place], [address] Carbon dioxide, total [Moles /volume] in Central venous bloodOrdered By: Vannesa Camejo on 05-07-2025 CO2 [Moles/Vol] 37.5 mmol/L High 21.0-32.0 [facility] Chloride assayOrdered By: Whitney Camejo on 05-07-2025 Chloride [Moles/Vol] 87 mmol/L Low 98-108 [facility] Comprehensive Metabolic Prof ilon 05-07-2025 Albumin [Mass/Vol] 3.4 g/dL Normal 3.4-4.8 [facility] Comment on above: Performed By: #### L 501.2300, L100.0100, L500.4050 ####[facility] [address] [place], [address] Albumin/Globulin [Mass ratio] 1.2 {ratio} Normal 0.9-2.4 [facility] Comment on above: Performed By: #### L 501.2300, L100.0100, L500.4050 ####[facility] [address] [place], [address] ALK PHOS 73 U/L Normal 35-104 [facility] Comment on above: Performed By: #### L 501.2300, L100.0100, L500.4050 ####[facility] [address] [place], [address] ALT [Catalytic activity/Vol] 16 U/L Normal <=34 [facility] Comment on above: Performed By: #### L 501.2300, L100.0100, L500.4050 ####[facility] [address] [place], [address] AST [Catalytic activity/Vol] 23 U/L Normal <=31 [facility] Comment on above: Performed By: #### L 501.2300, L100.0100, L500.4050 ####[facility] [address] [place], [address] Bilirubin [Mass/Vol] 0.48 mg/dL Normal 0.00-1.30 [facility] Comment on above: Performed By: #### L 501.2300, L100.0100, L500.4050 ####[facility] [address] [place], [address] BUN/CRE 22.0 RATIO High 10-20 [facility] Comment on above: Performed By: #### L 501.2300, L100.0100, L500.4050 ####[facility] [address] [place], [address] Calcium [Mass/Vol] 9.7 mg/dL Normal 7.6-11.0 [facility] Comment on above: Performed By: #### L 501.2300, L100.0100, L500.4050 ####[facility] [address] [place], [address] Chloride [Moles/Vol] 87 mmol/L Low 98-108 [facility] Comment on above: Performed By: #### L 501.2300, L100.0100, L500.4050 ####[facility] [address] [place], [address] CO2 [Moles/Vol] 37.5 mmol/L High 21.0-32.0 [facility] Comment on above: Performed By: #### L 501.2300, L100.0100, L500.4050 ####[facility] [address] [place], [address] Creatinine [Mass/Vol] 0.83 mg/dL Normal 0.70-1.20 [facility] Comment on above: Performed By: #### L 501.2300, L100.0100, L500.4050 ####[facility] [address] [place], [address] ECRCL 69.54 ml/min Normal 50-250 [facility] Comment on above: Performed By: #### L 501.2300, L100.0100, L500.4050 ####[facility] [address] [place], [address] GAP 11 Normal 5-15 [facility] Comment on above: Performed By: #### L 501.2300, L100.0100, L500.4050 ####[facility] [address] [place], [address] GFR/1.73 sq M.predicted among non-blacks MDRD (S/P/Bld) [Vol rate/Area] 75 mL/min/{1.73_m2} Normal >60 [facility] Comment on above: Result Comment: mL/m in/1.73m2 CKD-EPI Creatinine Equation (2020) Performed By: #### L 501.2300, L100.0100, L500.4050 ####[facility] [address] [place], [address] Globulin (S) [Mass/Vol] 2.9 g/dL Normal 2.2-4.2 [facility] Comment on above: Performed By: #### L 501.2300, L100.0100, L500.4050 ####[facility] [address] [place], [address] Glucose [Mass/Vol] 102 mg/dL High 70-99 [facility] Comment on above: Performed By: #### L 501.2300, L100.0100, L500.4050 ####[facility] [address] [place], [address] Potassium [Moles/Vol] 3.4 mmol/L Normal 3.3-5.1 [facility] Comment on above: Result Comment: Hemo lysis present, Results??could be affected.?? Performed By: #### L 501.2300, L100.0100, L500.4050 ####[facility] [address] [place], [address] Sodium [Moles/Vol] 136 mmol/L Normal 133-145 [facility] Comment on above: Performed By: #### L 501.2300, L100.0100, L500.4050 ####[facility] [address] [place], [address] T PROT 6.4 g/dL Normal 5.9-8.4 [facility] Comment on above: Performed By: #### L 501.2300, L100.0100, L500.4050 ####[facility] [address] [place], [address] Urea nitrogen [Mass/Vol] 18 mg/dL Normal 4-19 [facility] Comment on above: Performed By: #### L 501.2300, L100.0100, L500.4050 ####[facility] [address] [place], [address] Electrocardiogram reportOrde red By: Yasmani Bruno on 05-07-2025 EKG study [facility] Other Phone: Eosinophil percentageOrdered By: Vannesa Camejo on 05-07-2025 Eosinophils/100 WBC (Bld) 1.9 % 0-5 [facility] Erythrocyte distribution wid th ratioOrdered By: Vannesa Camejo on 05-07-2025 Erythrocyte distribution width (RBC) [Ratio] 15.5 % High 11.6-14.6 [facility] Erythrocyte distribution wid th standard deviationOrdered By: Vannesa Camejo on 05-07-2025 Erythrocyte distribution width (RBC) [Ratio] 53.5 fl High 35.1-43.9 [facility] Glomerular filtration rate ( GFR) estimation/1.73 sq m using serum, plasma, or whole bOrdered By: Vannesa Camejo on 05-07-2025 GFR/1.73 sq M.predicted among non-blacks MDRD (S/P/Bld) [Vol rate/Area] 75 mL/min/{1.73_m2} >60 [facility] Hematocrit Auto (Bld) [Volum e fraction]Ordered By: Vannesa Camejo on 05-07-2025 Hematocrit (Bld) [Volume fraction] 40.1 % 37-47 [facility] Hemoglobin measurementOrdere d By: Vannesa Camejo on 05-07-2025 Hemoglobin (Bld) [Mass/Vol] 12.1 g/dL 12.0-15.0 [facility] Immature granulocytes/100 WB C Auto (Bld)Ordered By: Vannesa Camejo on 05-07-2025 Immature granulocytes/100 WBC (Bld) 1.500 % High 0.0-0.9 [facility] Ketones Test strip Ql (U)Ord ered By: Cindi Lizarraga on 05-07-2025 Ketones Ql (U) Negative Negative [facility] Laboratory - Chemistry and C hemistry - challengeOrdered By: Vannesa Camejo on 05-07-2025 AST [Catalytic activity/Vol] 23 U/L <32 [facility] MCV (mean corpuscular volume ) determinationOrdered By: Vannesa Camejo on 05-07-2025 MCV (RBC) [Entitic vol] 95.0 fL 81-[address] [facility] Mean corpuscular hemoglobin (MCH) determinationOrdered By: Vannesa Camejo on 05-07-2025 MCH (RBC) [Entitic mass] 28.7 pg 27.0-32.0 [facility] Microscopic analysis of urin e for red blood cells (RBC)Ordered By: Cindi Lizarraga on 05-07-2025 Microscopic analysis of urine for red blood cells (RBC) 0 SEEN /hpf 0-5 [facility] Monocyte percentageOrdered B y: Vannesa Camejo on 05-07-2025 Monocytes/100 WBC (Bld) 11.7 % High 0-[address] [facility] Mucus LM Ql (Urine sed)Order ed By: Cindi Lizarraga on 05-07-2025 Mucus Ql (Urine sed) 0 SEEN /hpf [facility] Neutrophil percentageOrdered By: Vannesa Camejo on 05-07-2025 Neutrophils/100 WBC (Bld) 69.6 % 47-70 [facility] Nitrite Test strip Ql (U)Ord ered By: Cindi Lizarraga on 05-07-2025 Nitrite Ql (U) Negative Negative [facility] No Panel InformationOrdered By: Vannesa Camejo on 05-07-2025 23 U/L <32 [facility] Phosphoruson 05-07-2025 Phosphate [Mass/Vol] 3.0 mg/dL Normal 2.7-4.5 [facility] Comment on above: Performed By: #### L 501.2300, L100.0100, L500.4050 ####[facility] [address] [place], [address] Platelet countOrdered By: Whitney Camejo on 05-07-2025 Platelets (Bld) [#/Vol] 362 10*3/uL 150-450 [facility] Potassium measurement (mass/ volume)Ordered By: Vannesa Camejo on 05-07-2025 Potassium (Unsp spec) [Mass/Vol] 3.4 mmol/L 3.3-5.1 [facility] Protein Test strip Ql (U)Ord ered By: Cindi Lizarraga on 05-07-2025 Protein Ql (U) Negative Negative [facility] RBC Auto (Bld) [#/Vol]Ordere d By: Vannesa Camejo on 05-07-2025 RBC (Bld) [#/Vol] 4.22 10*6/uL 4.2-5.4 [facility] Serum creatinine measurement (mass/volume)Ordered By: Vannesa Camejo on 05-07-2025 Creatinine [Mass/Vol] 0.83 mg/dL 0.70-1.20 [facility] Serum globulin measurementOr dered By: Vannesa Camejo on 05-07-2025 Globulin (S) [Mass/Vol] 2.9 g/dL 2.2-4.[address] [facility] Serum glucose measurement (m ass/volume)Ordered By: Vannesa Camejo on 05-07-2025 Glucose [Mass/Vol] 102 mg/dL High 70-99 [facility] Serum or plasma alanine garza otransferase (ALT) measurementOrdered By: Vannesa Camejo on 05-07-2025 ALT [Catalytic activity/Vol] 16 U/L <35 [facility] Serum or plasma albumin diallo urement (mass/volume)Ordered By: Vannesa Camejo on 05-07-2025 Albumin [Mass/Vol] 3.4 g/dL 3.4-4.8 [facility] Serum or plasma albumin/glob ulin mass ratioOrdered By: Vannesa Camejo on 05-07-2025 Albumin/Globulin [Mass ratio] 1.2 {ratio} 0.9-2.4 [facility] Serum or plasma alkaline pati sphatase measurementOrdered By: Vannesa Camejo on 05-07-2025 ALP [Catalytic activity/Vol] 73 U/L 35-104 [facility] Serum or plasma calcium diallo urement (mass/volume)Ordered By: Vannesa Camejo on 05-07-2025 Calcium [Mass/Vol] 9.7 mg/dL 7.6-11.0 [facility] Serum or plasma urea nitroge n measurement (mass/volume)Ordered By: Vannesa Camejo on 05-07-2025 Urea nitrogen [Mass/Vol] 18 mg/dL 4-19 [facility] Sodium levelOrdered By: Karis brittney Camejo on 05-07-2025 Sodium [Moles/Vol] 136 mmol/L 133-145 [facility] Squamous epithelial cells de tection in urine sediment by light microscopyOrdered By: Cindi Lizarraga on 05-07-2025 Epithelial cells.squamous LM Ql (Urine sed) 0-5 SEEN /hpf 5-10 [facility] Total proteinOrdered By: Isabel Camejo on 05-07-2025 Protein [Mass/Vol] 6.4 g/dL 5.9-8.4 [facility] Urinalysis, Completeon 05-07 EPI,SQUAMOUS Normal 5-10 [facility] Comment on above: Order Comment: CLEAN CATCH Performed By: #### L 400.0001 ####[facility] [address] [place], [address] BACTERIA Normal None Seen [facility] Comment on above: Order Comment: CLEAN CATCH Performed By: #### L 400.0001 ####[facility] [address] [place], [address] BILIRUBIN URINE Normal Negative [facility] Comment on above: Order Comment: CLEAN CATCH Performed By: #### L 400.0001 ####[facility] [address] [place], [address] Clarity (U) Normal Clear [facility] Comment on above: Order Comment: CLEAN CATCH Performed By: #### L 400.0001 ####[facility] [address] [place], [address] Color (U) Normal Yellow [facility] Comment on above: Order Comment: CLEAN CATCH Performed By: #### L 400.0001 ####[facility] [address] [place], [address] GLUCOSE, UR Normal Normal [facility] Comment on above: Order Comment: CLEAN CATCH Performed By: #### L 400.0001 ####[facility] [address] [place], [address] KETONE UR Normal Negative [facility] Comment on above: Order Comment: CLEAN CATCH Performed By: #### L 400.0001 ####[facility] [address] [place], [address] LEUK ESTERASE Normal Negative [facility] Comment on above: Order Comment: CLEAN CATCH Performed By: #### L 400.0001 ####[facility] [address] [facility] [address] Mucus Ql (Urine sed) Normal [facility] Comment on above: Order Comment: CLEAN CATCH Performed By: #### L 400.0001 ####[facility] [address] [facility] [address] Nitrite Ql (U) Normal Negative [facility] Comment on above: Order Comment: CLEAN CATCH Performed By: #### L 400.0001 ####[facility] [address] [facility] [address] OCCULT BLOOD-UR Normal Negative [facility] Comment on above: Order Comment: CLEAN CATCH Performed By: #### L 400.0001 ####[facility] [address] [place], [address] pH UR Normal 5.0 - 8.0 [facility] Comment on above: Order Comment: CLEAN CATCH Performed By: #### L 400.0001 ####[facility] [address] [place], [address] PROT DIPSTX Normal Negative [facility] Comment on above: Order Comment: CLEAN CATCH Performed By: #### L 400.0001 ####[facility] [address] [place], [address] RBC Normal 0-5 [facility] Comment on above: Order Comment: CLEAN CATCH Performed By: #### L 400.0001 ####[facility] [address] [place], [address] SP.GR. DIPSTX Normal 1.002-1.030 [facility] Comment on above: Order Comment: CLEAN CATCH Performed By: #### L 400.0001 ####[facility] [address] [place], [address] UROBILI Normal Normal [facility] Comment on above: Order Comment: CLEAN CATCH Performed By: #### L 400.0001 ####[facility] [address] [place], [address] WBC Normal 0-5 [facility] Comment on above: Order Comment: CLEAN CATCH Performed By: #### L 400.0001 ####[facility] [address] [place], [address] BILIRUBIN URINE Negative Normal Negative [facility] Comment on above: Order Comment: COLLE CTOR TO SPECIFY Result Comment: WRON G DATE Performed By: #### L 400.0001 ####[facility] [address] [place], [address] Clarity (U) Clear Normal Clear [facility] Comment on above: Order Comment: COLLE CTOR TO SPECIFY Result Comment: WRON G DATE Performed By: #### L 400.0001 ####[facility] [address] [place], [address] Color (U) Yellow Normal Yellow [facility] Comment on above: Order Comment: COLLE CTOR TO SPECIFY Result Comment: WRON G DATE Performed By: #### L 400.0001 ####[facility] [address] [place], [address] GLUCOSE, UR 1000 mg/dl Abnormal Normal [facility] Comment on above: Order Comment: COLLE CTOR TO SPECIFY Result Comment: WRON G DATE Performed By: #### L 400.0001 ####[facility] [address] [place], [address] KETONE UR Negative Normal Negative [facility] Comment on above: Order Comment: COLLE CTOR TO SPECIFY Result Comment: WRON G DATE Performed By: #### L 400.0001 ####[facility] [address] [place], [address] LEUK ESTERASE Negative Normal Negative [facility] Comment on above: Order Comment: COLLE CTOR TO SPECIFY Result Comment: WRON G DATE Performed By: #### L 400.0001 ####[facility] [address] [place], [address] Nitrite Ql (U) Negative Normal Negative [facility] Comment on above: Order Comment: COLLE CTOR TO SPECIFY Result Comment: WRON G DATE Performed By: #### L 400.0001 ####[facility] [address] [place], [address] OCCULT BLOOD-UR Negative Normal Negative [facility] Comment on above: Order Comment: JUNIOR CTOR TO SPECIFY Result Comment: WRON G DATE Performed By: #### L 400.0001 ####[facility] [address] [place], [address] pH UR 8.0 Normal 5.0 - 8.0 [facility] Comment on above: Order Comment: COLLE CTOR TO SPECIFY Result Comment: WRON G DATE Performed By: #### L 400.0001 ####[facility] [address] [place], [address] PROT DIPSTX Negative Normal Negative [facility] Comment on above: Order Comment: JUNIOR CTOR TO SPECIFY Result Comment: WRON G DATE Performed By: #### L 400.0001 ####[facility] [address] [place], [address] SP.GR. DIPSTX 1.010 Normal 1.002-1.030 [facility] Comment on above: Order Comment: JUNIOR CTOR TO SPECIFY Result Comment: WRON G DATE Performed By: #### L 400.0001 ####[facility] [address] [place], [address] UR Preservative Preservative Added Normal [facility] Comment on above: Order Comment: COLLE CTOR TO SPECIFY Result Comment: WRON G DATE Performed By: #### L 400.0001 ####[facility] [address] [place], [address] UROBILI Normal Normal Normal [facility] Comment on above: Order Comment: COLLE CTOR TO SPECIFY Result Comment: WRON G DATE Performed By: #### L 400.0001 ####[facility] [address] [place], [address] BACTERIA 0 SEEN Normal None Seen [facility] Comment on above: Order Comment: COLLE CTOR TO SPECIFY Result Comment: WRON G DATE Performed By: #### L 400.0001 ####[facility] [address] [place], [address] EPI,SQUAMOUS 0 SEEN Normal 5-10 [facility] Comment on above: Order Comment: COLLE CTOR TO SPECIFY Result Comment: WRON G DATE Performed By: #### L 400.0001 ####[facility] [address] [place], [address] Mucus Ql (Urine sed) 0 SEEN Normal [facility] Comment on above: Order Comment: COLLE CTOR TO SPECIFY Result Comment: WRON G DATE Performed By: #### L 400.0001 ####[facility] [address] [place], [address] RBC 0 SEEN Normal 0-5 [facility] Comment on above: Order Comment: COLLE CTOR TO SPECIFY Result Comment: WRON G DATE Performed By: #### L 400.0001 ####[facility] [address] [place], [address] WBC 0 SEEN Normal 0-5 [facility] Comment on above: Order Comment: COLLE CTOR TO SPECIFY Result Comment: WRON G DATE Performed By: #### L 400.0001 ####[facility] [address] [place], [address] UR Preservative Normal [facility] Comment on above: Order Comment: CLEAN CATCH Performed By: #### L 400.0001 ####[facility] [address] [place], [address] Urine clarityOrdered By: Romy Lizarraga on 05-07-2025 Clarity (U) Clear Clear [facility] Urine color determinationOrd ered By: Cindi Lizarraga on 05-07-2025 Color (U) Yellow Yellow [facility] Urine glucose detectionOrder ed By: Cindi Lizarraga on 05-07-2025 Glucose Ql (U) 1000 mg/dl High Normal [facility] Urine leukocyte esterase det ection by dipstickOrdered By: Cindi Lizarraga on 05-07-2025 Leukocyte esterase Test strip Ql (U) Negative Negative [facility] Urine pHOrdered By: Cindi Francois am on 05-07-2025 pH (U) 8.0 [pH] 5.0 - 8.0 [facility] Urine sediment bacteria coun t by microscopy (number/high power field)Ordered By: Cindi Lizarraga on 05-07-2025 Bacteria LM.HPF (Urine sed) [#/Area] 0 /[HPF] None Seen [facility] Urine specific gravity measu rementOrdered By: Cindi Lizarraga on 05-07-2025 Specific gravity (U) [Rel density] 1.010 1.002-1.030 [facility] Urine urobilinogen measureme ntOrdered By: Cindi Lizarraga on 05-07-2025 Urobilinogen Ql (U) Normal mg/dl Normal [facility] White blood cell (WBC) count Ordered By: Vannesa Camejo on 05-07-2025 WBC (Bld) [#/Vol] 12.0 10*3/uL High 4.4-11.0 [facility] White blood cell countOrdere d By: Cindi Lizarraga on 05-07-2025 White blood cell count 0 SEEN /hpf 0-[address] [facility] Absolute lymphocyte countOrd ered By: Que Greene on 05-06-2025 Lymphocytes Auto (Unsp spec) [#/Vol] 2.05 10*3/uL 0.83-4.51 [facility] Anion gap in Serum or Plasma Ordered By: Que Greene on 05-06-2025 Anion gap [Moles/Vol] 10 mmol/L 5-15 [facility] Assessment of wrist artery p atency prior to arterial punctureOrdered By: Que Greene on 05-06-2025 Arterial patency Wrist artery --pre arterial puncture Positive [facility] Automated lymphocyte count a s percentage of total leukocytesOrdered By: Que Greene on 05-06-2025 Lymphocytes/100 WBC Auto (Unsp spec) 13.8 % Low 19-41 [facility] BUN/creatinine ratioOrdered By: Que Greene on 05-06-2025 Urea nitrogen/Creatinine [Mass ratio] 20.2 mg/mg High 10-20 [facility] Basic Metabolic Profile (BMP )on 05-06-2025 BUN/CRE 18.4 RATIO Normal 10-20 [facility] Comment on above: Performed By: #### L 500.2500 ####[facility] [address] [place], [address] Calcium [Mass/Vol] 9.9 mg/dL Normal 7.6-11.0 [facility] Comment on above: Performed By: #### L 500.2500 ####[facility] [address] [place], [address] Chloride [Moles/Vol] 85 mmol/L Low 98-108 [facility] Comment on above: Performed By: #### L 500.2500 ####[facility] [address] [place], [address] CO2 [Moles/Vol] 45.0 mmol/L High 21.0-32.0 [facility] Comment on above: Performed By: #### L 500.2500 ####[facility] [address] [place], [address] Creatinine [Mass/Vol] 1.02 mg/dL Normal 0.70-1.20 [facility] Comment on above: Performed By: #### L 500.2500 ####[facility] [address] [place], [address] ECRCL 56.59 ml/min Normal 50-250 [facility] Comment on above: Performed By: #### L 500.2500 ####[facility] [address] [place], [address] GAP 7 Normal 5-15 [facility] Comment on above: Performed By: #### L 500.2500 ####[facility] [address] [place], [address] GFR/1.73 sq M.predicted among non-blacks MDRD (S/P/Bld) [Vol rate/Area] 59 mL/min/{1.73_m2} Low >60 [facility] Comment on above: Result Comment: mL/m in/1.73m2 CKD-EPI Creatinine Equation (2020) Performed By: #### L 500.2500 ####[facility] [address] [place], [address] Glucose [Mass/Vol] 178 mg/dL High 70-99 [facility] Comment on above: Performed By: #### L 500.2500 ####[facility] [address] [place], [address] Potassium [Moles/Vol] 3.9 mmol/L Normal 3.3-5.1 [facility] Comment on above: Performed By: #### L 500.2500 ####[facility] [address] [place], [address] Sodium [Moles/Vol] 137 mmol/L Normal 133-145 [facility] Comment on above: Performed By: #### L 500.2500 ####[facility] [address] [place], [address] Urea nitrogen [Mass/Vol] 19 mg/dL Normal 4-19 [facility] Comment on above: Performed By: #### L 500.2500 ####[facility] [address] [place], [address] BUN/CRE 20.2 RATIO High 10-20 [facility] Comment on above: Performed By: #### L 100.0100, L500.2500, L501.2300 ####[facility] [address] [place], [address] Calcium [Mass/Vol] 10.0 mg/dL Normal 7.6-11.0 [facility] Comment on above: Performed By: #### L 100.0100, L500.2500, L501.2300 ####[facility] [address] [place], [address] Chloride [Moles/Vol] 78 mmol/L Low 98-108 [facility] Comment on above: Performed By: #### L 100.0100, L500.2500, L501.2300 ####[facility] [address] [place], [address] CO2 [Moles/Vol] 47.7 mmol/L Invalid Interpretation Code 21.0-32.0 [facility] Comment on above: Result Comment: Crit ical Result(s) Called at: by:??[facility] Result(s) Called at: 05/06/2025-09:38 by: Gurinder.??Results read back by same. Performed By: #### L 100.0100, L500.2500, L501.2300 ####[facility] [address] [place], [address] Creatinine [Mass/Vol] 0.85 mg/dL Normal 0.70-1.20 [facility] Comment on above: Performed By: #### L 100.0100, L500.2500, L501.2300 ####[facility] [address] [place], [address] ECRCL 68.37 ml/min Normal 50-250 [facility] Comment on above: Performed By: #### L 100.0100, L500.2500, L501.2300 ####[facility] [address] [place], [address] GAP 10 Normal 5-15 [facility] Comment on above: Performed By: #### L 100.0100, L500.2500, L501.2300 ####[facility] [address] [place], [address] GFR/1.73 sq M.predicted among non-blacks MDRD (S/P/Bld) [Vol rate/Area] 73 mL/min/{1.73_m2} Normal >60 [facility] Comment on above: Result Comment: mL/m in/1.73m2 CKD-EPI Creatinine Equation (2020) Performed By: #### L 100.0100, L500.2500, L501.2300 ####[facility] [address] [place], [address] Glucose [Mass/Vol] 117 mg/dL High 70-99 [facility] Comment on above: Performed By: #### L 100.0100, L500.2500, L501.2300 ####[facility] [address] [place], [address] Potassium [Moles/Vol] 2.6 mmol/L Invalid Interpretation Code 3.3-5.1 [facility] Comment on above: Result Comment: Crit ical Result(s) Called at: by:??Results read back bysame. Performed By: #### L 100.0100, L500.2500, L501.2300 ####[facility] [address] [place], [address] Sodium [Moles/Vol] 135 mmol/L Normal 133-145 [facility] Comment on above: Performed By: #### L 100.0100, L500.2500, L501.2300 ####[facility] [address] [place], [address] Urea nitrogen [Mass/Vol] 17 mg/dL Normal 4-19 [facility] Comment on above: Performed By: #### L 100.0100, L500.2500, L501.2300 ####[facility] [address] [place], [address] BUN/CRE 22.0 RATIO High 10-20 [facility] Comment on above: Performed By: #### L 500.2500 ####[facility] [address] [place], [address] Calcium [Mass/Vol] 9.9 mg/dL Normal 7.6-11.0 [facility] Comment on above: Performed By: #### L 500.2500 ####[facility] [address] [place], [address] Chloride [Moles/Vol] 75 mmol/L Low 98-108 [facility] Comment on above: Performed By: #### L 500.2500 ####[facility] [address] [place], [address] CO2 [Moles/Vol] 49.8 mmol/L Invalid Interpretation Code 21.0-32.0 [facility] Comment on above: Result Comment: Crit ical Result(s) Called at: by:??[facility]Critical Result(s) Called at: 0300 by: COLLEEN ROBLEDO TO [facility].??Results read back by same. Performed By: #### L 500.2500 ####[facility] [address] [place], [address] Creatinine [Mass/Vol] 0.86 mg/dL Normal 0.70-1.20 [facility] Comment on above: Performed By: #### L 500.2500 ####[facility] [address] [place], [address] ECRCL 67.57 ml/min Normal 50-250 [facility] Comment on above: Performed By: #### L 500.2500 ####[facility] [address] [place], [address] GAP 10 Normal 5-15 [facility] Comment on above: Performed By: #### L 500.2500 ####[facility] [address] [place], [address] GFR/1.73 sq M.predicted among non-blacks MDRD (S/P/Bld) [Vol rate/Area] 72 mL/min/{1.73_m2} Normal >60 [facility] Comment on above: Result Comment: mL/m in/1.73m2 CKD-EPI Creatinine Equation (2020) Performed By: #### L 500.2500 ####[facility] [address] [place], [address] Glucose [Mass/Vol] 117 mg/dL High 70-99 [facility] Comment on above: Performed By: #### L 500.2500 ####[facility] [address] [place], [address] Potassium [Moles/Vol] 2.6 mmol/L Invalid Interpretation Code 3.3-5.1 [facility] Comment on above: Result Comment: Crit ical Result(s) Called at: 0300 by:??COLLEEN LOPEZ. Results read back by same. Performed By: #### L 500.2500 ####[facility] [address] [place], [address] Sodium [Moles/Vol] 135 mmol/L Normal 133-145 [facility] Comment on above: Performed By: #### L 500.2500 ####[facility] [address] [place], [address] Urea nitrogen [Mass/Vol] 19 mg/dL Normal 4-19 [facility] Comment on above: Performed By: #### L 500.2500 ####[facility] [address] [place], [address] BUN/CRE 21.6 RATIO High 10-20 [facility] Comment on above: Performed By: #### L 100.0100, L500.3400, L500.2500 ####[facility] [address] [place], [address] Calcium [Mass/Vol] 10.2 mg/dL Normal 7.6-11.0 [facility] Comment on above: Performed By: #### L 100.0100, L500.3400, L500.2500 ####[facility] [address] [place], [address] Chloride [Moles/Vol] 73 mmol/L Invalid Interpretation Code 98-108 [facility] Comment on above: Result Comment: Crit ical Result(s) Called at:0046 by: COLLEEN RICHARDSON.??Results read back by same. Performed By: #### L 100.0100, L500.3400, L500.2500 ####[facility] [address] [place], [address] CO2 [Moles/Vol] mmol/L Invalid Interpretation Code 21.0-32.0 [facility] Comment on above: Result Comment: Crit ical Result(s) Called at:0046 by: COLLEEN RICHARDSON.??Results read back by same. Performed By: #### L 100.0100, L500.3400, L500.2500 ####[facility] [address] [place], [address] Creatinine [Mass/Vol] 0.94 mg/dL Normal 0.70-1.20 [facility] Comment on above: Performed By: #### L 100.0100, L500.3400, L500.2500 ####[facility] [address] [place], [address] ECRCL 61.82 ml/min Normal 50-250 [facility] Comment on above: Performed By: #### L 100.0100, L500.3400, L500.2500 ####[facility] [address] [place], [address] GAP UNABLE TO CALCULATE Low 5-15 [facility] Comment on above: Performed By: #### L 100.0100, L500.3400, L500.2500 ####[facility] [address] [place], [address] GFR/1.73 sq M.predicted among non-blacks MDRD (S/P/Bld) [Vol rate/Area] 65 mL/min/{1.73_m2} Normal >60 [facility] Comment on above: Result Comment: mL/m in/1.73m2 CKD-EPI Creatinine Equation (2020) Performed By: #### L 100.0100, L500.3400, L500.2500 ####[facility] [address] [place], [address] Glucose [Mass/Vol] 146 mg/dL High 70-99 [facility] Comment on above: Performed By: #### L 100.0100, L500.3400, L500.2500 ####[facility] [address] [place], [address] Potassium [Moles/Vol] 2.5 mmol/L Invalid Interpretation Code 3.3-5.1 [facility] Comment on above: Result Comment: Crit ical Result(s) Called at:0046 by: COLLEEN RICHARDSON.??Results read back by same. Performed By: #### L 100.0100, L500.3400, L500.2500 ####[facility] [address] [place], [address] Sodium [Moles/Vol] 136 mmol/L Normal 133-145 [facility] Comment on above: Performed By: #### L 100.0100, L500.3400, L500.2500 ####[facility] [address] [place], [address] Urea nitrogen [Mass/Vol] 20 mg/dL High 4-19 [facility] Comment on above: Performed By: #### L 100.0100, L500.3400, L500.2500 ####[facility] [address] [place], [address] Basophil percentageOrdered B y: Que Lathamehne on 05-06-2025 Basophils/100 WBC (Bld) 0.3 % 0-[address] [facility] Blood Gases by CPSon 025 ZECHARIAH TEST Positive Normal [facility] Comment on above: Performed By: #### L 9000.0800 ####[facility] [address] [place], [address] BE > 30 High -2 to +2 [facility] Comment on above: Performed By: #### L 9000.0800 ####[facility] [address] [place], [address] Blood Gas Type ART Normal [facility] Comment on above: Performed By: #### L 9000.0800 ####[facility] [address] [place], [address] FI02 4.0 Normal [facility] Comment on above: Performed By: #### L 9000.0800 ####[facility] [address] [place], [address] HCO3 (Bld) [Moles/Vol] 54.4 mmol/L High 22-[address] [facility] Comment on above: Performed By: #### L 9000.0800 ####[facility] [address] [place], [address] Mode Not entered Normal [facility] Comment on above: Performed By: #### L 9000.0800 ####[facility] [address] [place], [address] O2 Delivery Dev Cannula Normal [facility] Comment on above: Performed By: #### L 9000.0800 ####[facility] [address] [place], [address] pCO2 73.8 mmHg Invalid Interpretation Code 35-45 [facility] Comment on above: Performed By: #### L 0.0800 ####[facility] [address] [place], [address] pH (Bld) 7.48 [pH] High 7.35-7.45 [facility] Comment on above: Performed By: #### L 0.0800 ####[facility] [address] [place], [address] PO2 102 mmHG High 75-100 [facility] Comment on above: Performed By: #### L 9000.0800 ####[facility] [address] [place], [address] Read Back By Yes Normal [facility] Comment on above: Performed By: #### L 9000.0800 ####[facility] [address] [place], [address] Results To hoehne Normal [facility] Comment on above: Performed By: #### L 9000.0800 ####[facility] [address] [place], [address] SITE R Radial Normal [facility] Comment on above: Performed By: #### L 9000.0800 ####[facility] [address] [place], [address] SO2 98 Normal 95-99 [facility] Comment on above: Performed By: #### L 9000.0800 ####[facility] [address] [place], [address] Time Given 01:34:56 Normal [facility] Comment on above: Performed By: #### L 9000.0800 ####[facility] [address] [place], [address] TOTAL CO2 > 50 Normal [facility] Comment on above: Performed By: #### L 9000.0800 ####[facility] [address] [place], [address] Blood base excess determinat ionOrdered By: Que Greene on 05-06-2025 Base excess Calc (BldV) [Moles/Vol] mmol/L High -2-2 [facility] Blood bicarbonate measuremen tOrdered By: Que Greene on 05-06-2025 HCO3 (Bld) [Moles/Vol] 54.4 mmol/L High 22-[address] [facility] Blood manual differential co mment interpretation (narrative result)Ordered By: Que Greene on 05-06-2025 Manual differential comment Eugene (Bld) [Interp] COMMENT [facility] Comment on above: MONOCYTOSIS. CBC W/Diff, Automatedon 04-26 SMEAR COMMENT COMMENT Normal [facility] Comment on above: Result Comment: MONO CYTOSIS. Performed By: #### L 100.0100, L500.2500, L501.2300 ####[facility] [address] [place], [address] Absolute Lymph 1.28 X10 3/uL Normal 0.83-4.51 [facility] Comment on above: Performed By: #### L 100.0100, L500.3400, L500.2500 ####[facility] [address] [place], [address] Absolute Neut 10.3 X10 3/uL High 2.0-7.7 [facility] Comment on above: Performed By: #### L 100.0100, L500.3400, L500.2500 ####[facility] [address] [place], [address] Basophils/100 WBC (Bld) 0.4 % Normal 0-[address] [facility] Comment on above: Performed By: #### L 100.0100, L500.3400, L500.2500 ####[facility] [address] [place], [address] Eosinophils/100 WBC (Bld) 0.2 % Normal 0-5 [facility] Comment on above: Performed By: #### L 100.0100, L500.3400, L500.2500 ####[facility] [address] [place], [address] Erythrocyte distribution width (RBC) [Ratio] 15.1 % High 11.6-14.6 [facility] Comment on above: Performed By: #### L 100.0100, L500.3400, L500.2500 ####[facility] [address] [place], [address] Hematocrit (Bld) [Volume fraction] 40.1 % Normal 37-47 [facility] Comment on above: Performed By: #### L 100.0100, L500.3400, L500.2500 ####[facility] [address] [place], [address] Hemoglobin (Bld) [Mass/Vol] 12.5 g/dL Normal 12.0-15.0 [facility] Comment on above: Performed By: #### L 100.0100, L500.3400, L500.2500 ####[facility] [address] [place], [address] IG% 0.900 Normal 0.0-0.9 [facility] Comment on above: Result Comment: IG% - Immature Granulocytes (promyelocytes, myelocytes andmetamyelocytes) > 1% indicates that a LEFT SHIFT is Present. Performed By: #### L 100.0100, L500.3400, L500.2500 ####[facility] [address] [place], [address] Lymphocytes/100 WBC (Bld) 9.7 % Low 19-41 [facility] Comment on above: Performed By: #### L 100.0100, L500.3400, L500.2500 ####[facility] [address] [place], [address] MCH (RBC) [Entitic mass] 28.7 pg Normal 27.0-32.0 [facility] Comment on above: Performed By: #### L 100.0100, L500.3400, L500.2500 ####[facility] [address] [place], [address] MCHC (RBC) [Mass/Vol] 31.2 g/dL Low 32-36 [facility] Comment on above: Performed By: #### L 100.0100, L500.3400, L500.2500 ####[facility] [address] [place], [address] MCV (RBC) [Entitic vol] 92.2 fL Normal 81-99 [facility] Comment on above: Performed By: #### L 100.0100, L500.3400, L500.2500 ####[facility] [address] [place], [address] Monocytes/100 WBC (Bld) 11.1 % High 0-[address] [facility] Comment on above: Performed By: #### L 100.0100, L500.3400, L500.2500 ####[facility] [address] [place], [address] Neutrophils/100 WBC (Bld) 77.7 % High 47-70 [facility] Comment on above: Performed By: #### L 100.0100, L500.3400, L500.2500 ####[facility] [address] [place], [address] Nucleated RBC (Bld) [#/Vol] 0 10*3/uL Normal 0-5 [facility] Comment on above: Performed By: #### L 100.0100, L500.3400, L500.2500 ####[facility] [address] [place], [address] Platelet mean volume (Bld) [Entitic vol] 9.4 fL Normal 6.2-12.0 [facility] Comment on above: Performed By: #### L 100.0100, L500.3400, L500.2500 ####[facility] [address] [place], [address] Platelets (Bld) [#/Vol] 477 10*3/uL High 150-450 [facility] Comment on above: Performed By: #### L 100.0100, L500.3400, L500.2500 ####[facility] [address] [place], [address] RBC (Bld) [#/Vol] 4.35 10*6/uL Normal 4.2-5.4 [facility] Comment on above: Performed By: #### L 100.0100, L500.3400, L500.2500 ####[facility] [address] [place], [address] RDW SD 51.0 fl High 35.1-43.9 [facility] Comment on above: Performed By: #### L 100.0100, L500.3400, L500.2500 ####[facility] [address] [place], [address] WBC (Bld) [#/Vol] 13.2 10*3/uL High 4.4-11.0 [facility] Comment on above: Performed By: #### L 100.0100, L500.3400, L500.2500 ####[facility] [address] [place], [place], [address] Carbon dioxide, total [Moles /volume] in Central venous bloodOrdered By: Que Greene on 05-06-2025 CO2 [Moles/Vol] 47.7 mmol/L High 21.0-32.0 [facility] Chloride assayOrdered By: Misael Greene on 05-06-2025 Chloride [Moles/Vol] 78 mmol/L Low 98-108 [facility] Digoxin Levelon 05-06-2025 DIG 1.15 ng/mL Normal 0.00-2.00 [facility] Comment on above: Performed By: #### L 501.7510 ####[facility] [address] [place], [address] Eosinophil percentageOrdered By: Que Greene on 05-06-2025 Eosinophils/100 WBC (Bld) 0.2 % 0-5 [facility] Erythrocyte distribution wid th ratioOrdered By: Que Greene on 05-06-2025 Erythrocyte distribution width (RBC) [Ratio] 15.2 % High 11.6-14.6 [facility] Erythrocyte distribution wid th standard deviationOrdered By: Que Greene on 05-06-2025 Erythrocyte distribution width (RBC) [Ratio] 52.1 fl High 35.1-43.9 [facility] Glomerular filtration rate ( GFR) estimation/1.73 sq m using serum, plasma, or whole bOrdered By: Que Greene on 05-06-2025 GFR/1.73 sq M.predicted among non-blacks MDRD (S/P/Bld) [Vol rate/Area] 73 mL/min/{1.73_m2} >60 [facility] H AND P Exam - Hospitaliston 05-06-2025 H&P Exam - Hospitalist Normal [facility] Hematocrit Auto (Bld) [Volum e fraction]Ordered By: Que Greene on 05-06-2025 Hematocrit (Bld) [Volume fraction] 37.0 % 37-47 [facility] Hemoglobin measurementOrdere d By: Que Greene on 05-06-2025 Hemoglobin (Bld) [Mass/Vol] 11.4 g/dL Low 12.0-15.0 [facility] Immature granulocytes/100 WB C Auto (Bld)Ordered By: Que Greene on 05-06-2025 Immature granulocytes/100 WBC (Bld) 0.700 % 0.0-0.9 [facility] Liver Profileon 05-06-2025 Albumin [Mass/Vol] 3.8 g/dL Normal 3.4-4.8 [facility] Comment on above: Performed By: #### L 100.0100, L500.3400, L500.2500 ####[facility] [address] [place], [address] ALK PHOS 76 U/L Normal 35-104 [facility] Comment on above: Performed By: #### L 100.0100, L500.3400, L500.2500 ####[facility] [address] [place], [address] ALT [Catalytic activity/Vol] 21 U/L Normal <=34 [facility] Comment on above: Performed By: #### L 100.0100, L500.3400, L500.2500 ####[facility] [address] [place], [address] AST [Catalytic activity/Vol] 21 U/L Normal <=31 [facility] Comment on above: Performed By: #### L 100.0100, L500.3400, L500.2500 ####[facility] [address] [place], [address] Bilirubin [Mass/Vol] 0.45 mg/dL Normal 0.00-1.30 [facility] Comment on above: Performed By: #### L 100.0100, L500.3400, L500.2500 ####[facility] [address] [place], [address] Bilirubin.direct [Mass/Vol] 0.21 mg/dL Normal 0.00-0.30 [facility] Comment on above: Performed By: #### L 100.0100, L500.3400, L500.2500 ####[facility] [address] [place], [address] Globulin (S) [Mass/Vol] 3.1 g/dL Normal 2.2-4.2 [facility] Comment on above: Performed By: #### L 100.0100, L500.3400, L500.2500 ####[facility] [address] [place], [address] T PROT 6.9 g/dL Normal 5.9-8.4 [facility] Comment on above: Performed By: #### L 100.0100, L500.3400, L500.2500 ####[facility] [address] [place], [address] MCV (mean corpuscular volume ) determinationOrdered By: Que Greene on 05-06-2025 MCV (RBC) [Entitic vol] 93.2 fL 81-[address] [facility] Magnesiumon 05-06-2025 Magnesium [Mass/Vol] 2.1 mg/dL Normal 1.5-2.2 [facility] Comment on above: Performed By: #### L 501.5200 ####[facility] [address] [place], [address] Mean corpuscular hemoglobin (MCH) determinationOrdered By: Que Greene on 05-06-2025 MCH (RBC) [Entitic mass] 28.7 pg 27.0-32.0 [facility] Measurement, pHOrdered By: Ellen Greene on 05-06-2025 pH (Unsp spec) 7.48 [pH] High 7.35-7.45 [facility] Monocyte percentageOrdered B y: Que Greene on 05-06-2025 Monocytes/100 WBC (Bld) 10.9 % High 0-[address] [facility] Neutrophil percentageOrdered By: Que Greene on 05-06-2025 Neutrophils/100 WBC (Bld) 74.1 % High 47-70 [facility] No Panel InformationOrdered By: Que Greene on 05-06-2025 Bld Gas Crit Called To/Read Back By Yes [facility] Blood Gas Notified Time 01:34:56 [facility] Blood Gas Notified Wh[facility] Blood Gas Sample Site R Radial [facility] Blood Gas Specimen Type ART [facility] Blood Gas Vent Mode Not entered [facility] Oxygen Delivery Device Cannula [facility] ART [facility] R Radial [facility] Not entered [facility] Cannula [facility] 01:34:56 [facility] hoehne [facility] Yes [facility] Phosphoruson 05-06-2025 Phosphate [Mass/Vol] 3.5 mg/dL Normal 2.7-4.5 [facility] Comment on above: Performed By: #### L 100.0100, L500.2500, L501.2300 ####[facility] [address] [place], [address] Platelet countOrdered By: Misael Greene on 05-06-2025 Platelets (Bld) [#/Vol] 477 10*3/uL High 150-450 [facility] Potassium measurement (mass/ volume)Ordered By: Que Greene on 05-06-2025 Potassium (Unsp spec) [Mass/Vol] 2.6 mmol/L Low 3.3-5.1 [facility] RBC Auto (Bld) [#/Vol]Ordere d By: Que Greene on 05-06-2025 RBC (Bld) [#/Vol] 3.97 10*6/uL Low 4.2-5.4 [facility] Serum creatinine measurement (mass/volume)Ordered By: Que Greene on 05-06-2025 Creatinine [Mass/Vol] 0.85 mg/dL 0.70-1.20 [facility] Serum glucose measurement (m ass/volume)Ordered By: Que Greene on 05-06-2025 Glucose [Mass/Vol] 117 mg/dL High 70-99 [facility] Serum or plasma calcium diallo urement (mass/volume)Ordered By: Que Greene on 05-06-2025 Calcium [Mass/Vol] 10.0 mg/dL 7.6-11.0 [facility] Serum or plasma urea nitroge n measurement (mass/volume)Ordered By: Que Greene on 05-06-2025 Urea nitrogen [Mass/Vol] 17 mg/dL 4-19 [facility] Sodium levelOrdered By: Dustin Greene on 05-06-2025 Sodium [Moles/Vol] 135 mmol/L 133-145 [facility] White blood cell (WBC) count Ordered By: Que Greene on 05-06-2025 WBC (Bld) [#/Vol] 14.9 10*3/uL High 4.4-11.0 [facility] 12 Lead EKGon 05-05-2025 12 Lead EKG Normal [facility] Bilirubin directOrdered By: Que Greene on 05-05-2025 Bilirubin.direct [Mass/Vol] 0.21 mg/dL 0.00-0.30 [facility] Bilirubin, totalOrdered By: Que Greene on 05-05-2025 Bilirubin [Mass/Vol] 0.45 mg/dL 0.00-1.30 [facility] Emergency Department Summary on 05-05-2025 Emergency Department Summary Normal [facility] Magnesium measurement (mass/ volume)Ordered By: Que Greene on 05-05-2025 Magnesium (Unsp spec) [Mass/Vol] 2.1 mg/dL 1.5-2.2 [facility] No Panel InformationOrdered By: Que Greene on 05-05-2025 21 U/L <32 [facility] Serum globulin measurementOr dered By: Que Greene on 05-05-2025 Globulin (S) [Mass/Vol] 3.1 g/dL 2.2-4.2 [facility] Serum or plasma alanine garza otransferase (ALT) measurementOrdered By: Que Greene on 05-05-2025 ALT [Catalytic activity/Vol] 21 U/L <35 [facility] Serum or plasma albumin diallo urement (mass/volume)Ordered By: Que Greene on 05-05-2025 Albumin [Mass/Vol] 3.8 g/dL 3.4-4.8 [facility] Serum or plasma alkaline pati sphatase measurementOrdered By: Que Greene on 05-05-2025 ALP [Catalytic activity/Vol] 76 U/L 35-104 [facility] Serum or plasma digoxin diallo urement (mass/volume)Ordered By: Que Greene on 05-05-2025 Digoxin [Mass/Vol] 1.15 ng/mL 0.00-2.00 [facility] Total proteinOrdered By: Danny Greene on 05-05-2025 Protein [Mass/Vol] 6.9 g/dL 5.9-8.4 [facility] Blood Gases by CPSon 025 Base excess Calc (Bld) [Moles/Vol] 19 mmol/L High -2 to +2 [facility] Comment on above: Performed By: #### L 9000.0800 ####[facility] [address] [place], [address] Blood Gas Type ART Normal [facility] Comment on above: Performed By: #### L 9000.0800 ####[facility] [address] [place], [address] CO2 [Moles/Vol] 44 mmol/L Normal [facility] Comment on above: Performed By: #### L 9000.0800 ####[facility] [address] [place], [address] FI02 4.0 Normal [facility] Comment on above: Performed By: #### L 9000.0800 ####[facility] [address] [place], [address] HCO3 (Bld) [Moles/Vol] 42.1 mmol/L High 22-[address] [facility] Comment on above: Performed By: #### L 9000.0800 ####[facility] [address] [place], [address] Mode Not entered Normal [facility] Comment on above: Performed By: #### L 9000.0800 ####[facility] [address] [place], [address] O2 Delivery Dev Cannula Normal [facility] Comment on above: Performed By: #### L 9000.0800 ####[facility] [address] [place], [address] pCO2 54.1 mmHg High 35-45 [facility] Comment on above: Performed By: #### L 9000.0800 ####[facility] [address] [place], [address] pH (Bld) 7.50 [pH] High 7.35-7.45 [facility] Comment on above: Performed By: #### L 9000.0800 ####[facility] [address] [place], [address] PO2 120 mmHG High 75-100 [facility] Comment on above: Performed By: #### L 9000.0800 ####[facility] [address] [place], [address] SITE L Radial Normal [facility] Comment on above: Performed By: #### L 9000.0800 ####[facility] [address] [place], [address] SO2 99 Normal 95-99 [facility] Comment on above: Performed By: #### L 9000.0800 ####[facility] [address] [place], [address] Blood base excess determinat ionOrdered By: Mitchell Brian on 04-30-2025 Base excess Calc (BldV) [Moles/Vol] 19 mmol/L High -2-2 [facility] Blood bicarbonate measuremen tOrdered By: Mitchell Brian on 04-30-2025 HCO3 (Bld) [Moles/Vol] 42.1 mmol/L High 22-[address] [facility] Cardiology Visit Reporton Cardiology Visit Report Normal [facility] Measurement, pHOrdered By: Ángle Brian on 04-30-2025 pH (Unsp spec) 7.50 [pH] High 7.35-7.45 [facility] No Panel InformationOrdered By: Mitchell Brian on 04-30-2025 Blood Gas Sample Site L Radial [facility] Blood Gas Specimen Type ART [facility] Blood Gas Vent Mode Not entered [facility] Oxygen Delivery Device Cannula [facility] ART [facility] L Radial [facility] Not entered [facility] Cannula [facility] Total carbon dioxide measure mentOrdered By: Mitchell Brian on 04-30-2025 CO2 [Moles/Vol] 44 mmol/L [facility] Absolute lymphocyte countOrd ered By: Becca Dillard on 04-21-2025 Lymphocytes Auto (Unsp spec) [#/Vol] 0.78 10*3/uL Low 0.83-4.51 [facility] Absolute neutrophil countOrd ered By: Becca Dillard on 04-21-2025 Neutrophils (Bld) [#/Vol] 13.2 10*3/uL High 2.0-7.7 [facility] Anion gap in Serum or Plasma Ordered By: Becca Dillard on 04-21-2025 Anion gap [Moles/Vol] 9 mmol/L 5-15 [facility] Automated lymphocyte count a s percentage of total leukocytesOrdered By: Becca Dillard on 04-21-2025 Lymphocytes/100 WBC Auto (Unsp spec) 5.2 % Low 19-41 [facility] BUN/creatinine ratioOrdered By: Becca Dillard on 04-21-2025 Urea nitrogen/Creatinine [Mass ratio] 21.5 mg/mg High 10-20 [facility] Basic Metabolic Profile (BMP )on 04-21-2025 BUN/CRE 21.5 RATIO High 10 [facility] Comment on above: Performed By: #### L 100.0100, L500.2500, L503.7505 ####[facility] [address] [place], [address] Calcium [Mass/Vol] 9.0 mg/dL Normal 7.6-11.0 [facility] Comment on above: Performed By: #### L 100.0100, L500.2500, L503.7505 ####[facility] [address] [place], [address] Chloride [Moles/Vol] 90 mmol/L Low 98-108 [facility] Comment on above: Performed By: #### L 100.0100, L500.2500, L503.7505 ####[facility] [address] [place], [address] CO2 [Moles/Vol] 41.5 mmol/L High 21.0-32.0 [facility] Comment on above: Performed By: #### L 100.0100, L500.2500, L503.7505 ####[facility] [address] [place], [address] Creatinine [Mass/Vol] 0.73 mg/dL Normal 0.70-1.20 [facility] Comment on above: Performed By: #### L 100.0100, L500.2500, L503.7505 ####[facility] [address] [place], [address] GAP 9 Normal 5-15 [facility] Comment on above: Performed By: #### L 100.0100, L500.2500, L503.7505 ####[facility] [address] [place], [address] GFR/1.73 sq M.predicted among non-blacks MDRD (S/P/Bld) [Vol rate/Area] 88 mL/min/{1.73_m2} Normal >60 [facility] Comment on above: Result Comment: mL/m in/1.73m2 CKD-EPI Creatinine Equation (2020) Performed By: #### L 100.0100, L500.2500, L503.7505 ####[facility] [address] [place], [address] Glucose [Mass/Vol] 167 mg/dL High 70-99 [facility] Comment on above: Performed By: #### L 100.0100, L500.2500, L503.7505 ####[facility] [address] [place], [address] Potassium [Moles/Vol] 4.4 mmol/L Normal 3.3-5.1 [facility] Comment on above: Performed By: #### L 100.0100, L500.2500, L503.7505 ####[facility] [address] [place], [address] Sodium [Moles/Vol] 140 mmol/L Normal 133-145 [facility] Comment on above: Performed By: #### L 100.0100, L500.2500, L503.7505 ####[facility] [address] [place], [address] Urea nitrogen [Mass/Vol] 16 mg/dL Normal 4-19 [facility] Comment on above: Performed By: #### L 100.0100, L500.2500, L503.7505 ####[facility] [address] [place], [address] Basophil percentageOrdered B y: Becca Dillard on 04-21-2025 Basophils/100 WBC (Bld) 0.2 % 0-[address] [facility] CBC W/Diff, Automatedon 03-27 Absolute Lymph 0.78 X10 3/uL Low 0.83-4.51 [facility] Comment on above: Performed By: #### L 100.0100, L500.2500, L503.7505 ####[facility] [address] [place], [address] Absolute Neut 13.2 X10 3/uL High 2.0-7.7 [facility] Comment on above: Performed By: #### L 100.0100, L500.2500, L503.7505 ####[facility] [address] [place], [address] Basophils/100 WBC (Bld) 0.2 % Normal 0-[address] [facility] Comment on above: Performed By: #### L 100.0100, L500.2500, L503.7505 ####[facility] [address] [place], [address] Eosinophils/100 WBC (Bld) 0.1 % Normal 0-5 [facility] Comment on above: Performed By: #### L 100.0100, L500.2500, L503.7505 ####[facility] [address] [place], [address] Erythrocyte distribution width (RBC) [Ratio] 15.9 % High 11.6-14.6 [facility] Comment on above: Performed By: #### L 100.0100, L500.2500, L503.7505 ####[facility] [address] [place], [address] Hematocrit (Bld) [Volume fraction] 37.0 % Normal 37-47 [facility] Comment on above: Performed By: #### L 100.0100, L500.2500, L503.7505 ####[facility] [address] [place], [address] Hemoglobin (Bld) [Mass/Vol] 11.4 g/dL Low 12.0-15.0 [facility] Comment on above: Performed By: #### L 100.0100, L500.2500, L503.7505 ####[facility] [address] [place], [address] IG% 1.100 High 0.0-0.9 [facility] Comment on above: Result Comment: IG% - Immature Granulocytes (promyelocytes, myelocytes andmetamyelocytes) > 1% indicates that a LEFT SHIFT is Present. Performed By: #### L 100.0100, L500.2500, L503.7505 ####[facility] [address] [place], [address] Lymphocytes/100 WBC (Bld) 5.2 % Low 19-41 [facility] Comment on above: Performed By: #### L 100.0100, L500.2500, L503.7505 ####[facility] [address] [place], [address] MCH (RBC) [Entitic mass] 29.1 pg Normal 27.0-32.0 [facility] Comment on above: Performed By: #### L 100.0100, L500.2500, L503.7505 ####[facility] [address] [place], [address] MCHC (RBC) [Mass/Vol] 30.8 g/dL Low 32-36 [facility] Comment on above: Performed By: #### L 100.0100, L500.2500, L503.7505 ####[facility] [address] [place], [address] MCV (RBC) [Entitic vol] 94.4 fL Normal 81-[address] [facility] Comment on above: Performed By: #### L 100.0100, L500.2500, L503.7505 ####[facility] [address] [place], [address] Monocytes/100 WBC (Bld) 5.4 % Normal 0-[address] [facility] Comment on above: Performed By: #### L 100.0100, L500.2500, L503.7505 ####[facility] [address] [place], [address] Neutrophils/100 WBC (Bld) 88.0 % High 47-70 [facility] Comment on above: Performed By: #### L 100.0100, L500.2500, L503.7505 ####[facility] [address] [place], [address] Nucleated RBC (Bld) [#/Vol] 0 10*3/uL Normal 0-5 [facility] Comment on above: Performed By: #### L 100.0100, L500.2500, L503.7505 ####[facility] [address] [place], [address] Platelet mean volume (Bld) [Entitic vol] 9.7 fL Normal 6.2-12.0 [facility] Comment on above: Performed By: #### L 100.0100, L500.2500, L503.7505 ####[facility] [address] [place], [address] Platelets (Bld) [#/Vol] 267 10*3/uL Normal 150-450 [facility] Comment on above: Performed By: #### L 100.0100, L500.2500, L503.7505 ####[facility] [address] [place], [address] RBC (Bld) [#/Vol] 3.92 10*6/uL Low 4.2-5.4 [facility] Comment on above: Performed By: #### L 100.0100, L500.2500, L503.7505 ####[facility] [address] [place], [address] RDW SD 55.5 fl High 35.1-43.9 [facility] Comment on above: Performed By: #### L 100.0100, L500.2500, L503.7505 ####[facility] [address] [place], [address] WBC (Bld) [#/Vol] 15.1 10*3/uL High 4.4-11.0 [facility] Comment on above: Performed By: #### L 100.0100, L500.2500, L503.7505 ####[facility] [address] [place], [address] Carbon dioxide, total [Moles /volume] in Central venous bloodOrdered By: Becca Dillard on 04-21-2025 CO2 [Moles/Vol] 41.5 mmol/L High 21.0-32.0 [facility] Chloride assayOrdered By: Sergio Dillard on 04-21-2025 Chloride [Moles/Vol] 90 mmol/L Low 98-108 [facility] Eosinophil percentageOrdered By: Becca Dillard on 04-21-2025 Eosinophils/100 WBC (Bld) 0.1 % 0-5 [facility] Erythrocyte distribution wid th ratioOrdered By: Becca Dillard on 04-21-2025 Erythrocyte distribution width (RBC) [Ratio] 15.9 % High 11.6-14.6 [facility] Erythrocyte distribution wid th standard deviationOrdered By: Becca Dillard on 04-21-2025 Erythrocyte distribution width (RBC) [Ratio] 55.5 fl High 35.1-43.9 [facility] Glomerular filtration rate ( GFR) estimation/1.73 sq m using serum, plasma, or whole bOrdered By: Becca Dillard on 04-21-2025 GFR/1.73 sq M.predicted among non-blacks MDRD (S/P/Bld) [Vol rate/Area] 88 mL/min/{1.73_m2} >60 [facility] Comment on above: mL/min/1.73m2 CKD-EP I Creatinine Equation (2020) Hematocrit Auto (Bld) [Volum e fraction]Ordered By: Becca Dillard on 04-21-2025 Hematocrit (Bld) [Volume fraction] 37.0 % 37-47 [facility] Hemoglobin measurementOrdere d By: Becca Dillard on 04-21-2025 Hemoglobin (Bld) [Mass/Vol] 11.4 g/dL Low 12.0-15.0 [facility] Immature granulocytes/100 WB C Auto (Bld)Ordered By: Becca Dillard on 04-21-2025 Immature granulocytes/100 WBC (Bld) 1.100 % High 0.0-0.9 [facility] Comment on above: IG% - Immature Granu locytes (promyelocytes, myelocytes and metamyelocytes) > 1% indicates that a LEFT SHIFT is Present. L503.7505on 04-21-2025 Natriuretic peptide B (Bld) [Mass/Vol] 771 pg/mL Normal <=900 [facility] Comment on above: Result Comment: Hear t Failure Unlikely: < 300 pg/mLHeart Failure Likely< 50 Years: > 450 pg/mL50-75 Years: > 900 pg/mL>75 Years: > 1800 pg/mL Performed By: #### L 100.0100, L500.2500, L503.7505 ####[facility] [address] [place], [address] MCV (mean corpuscular volume ) determinationOrdered By: Becca Dillard on 04-21-2025 MCV (RBC) [Entitic vol] 94.4 fL 81-[address] [facility] Mean corpuscular hemoglobin (MCH) determinationOrdered By: Becca Dillard on 04-21-2025 MCH (RBC) [Entitic mass] 29.1 pg 27.0-32.0 [facility] Mean corpuscular hemoglobin concentration (MCHC) determinationOrdered By: Becca Dillard on 04-21-2025 MCHC (RBC) [Mass/Vol] 30.8 g/dL Low 32-36 [facility] Mean platelet volume determi nationOrdered By: Becca Dillard on 04-21-2025 Platelet mean volume (Bld) [Entitic vol] 9.7 fL 6.2-12.0 [facility] Monocyte percentageOrdered B y: Becca Dillard on 04-21-2025 Monocytes/100 WBC (Bld) 5.4 % 0-[address] [facility] Natriuretic peptide.B prohor inessa N-Terminal [Mass/volume] in Serum or PlasmaOrdered By: Becca Dillard on 04-21-2025 Natriuretic peptide.B prohormone N-Terminal [Mass/Vol] 771 pg/mL <900 [facility] Comment on above: Heart Failure Unlike ly: < 300 pg/mLHeart Failure Likely< 50 Years: > 450 pg/mL50-75 Years: > 900 pg/mL>75 Years: > 1800 pg/mL Neutrophil percentageOrdered By: Becca Dillard on 04-21-2025 Neutrophils/100 WBC (Bld) 88.0 % High 47-70 [facility] Nucleated red blood cell per centageOrdered By: Becca Dillard on 04-21-2025 Nucleated RBC/100 WBC (Bld) [Ratio] 0 % 0-5 [facility] Platelet countOrdered By: Sergio Dillard on 04-21-2025 Platelets (Bld) [#/Vol] 267 10*3/uL 150-450 [facility] Potassium measurement (mass/ volume)Ordered By: Becca Dillard on 04-21-2025 Potassium (Unsp spec) [Mass/Vol] 4.4 mmol/L 3.3-5.1 [facility] RBC Auto (Bld) [#/Vol]Ordere d By: Becca Dillard on 04-21-2025 RBC (Bld) [#/Vol] 3.92 10*6/uL Low 4.2-5.4 [facility] Serum creatinine measurement (mass/volume)Ordered By: Becca Dillard on 04-21-2025 Creatinine [Mass/Vol] 0.73 mg/dL 0.70-1.20 [facility] Serum glucose measurement (m ass/volume)Ordered By: Becca Dillard on 04-21-2025 Glucose [Mass/Vol] 167 mg/dL High 70-99 [facility] Serum or plasma calcium diallo urement (mass/volume)Ordered By: Becca Dillard on 04-21-2025 Calcium [Mass/Vol] 9.0 mg/dL 7.6-11.0 [facility] Serum or plasma urea nitroge n measurement (mass/volume)Ordered By: Becca Dillard on 04-21-2025 Urea nitrogen [Mass/Vol] 16 mg/dL 4-19 [facility] Sodium levelOrdered By: Faith Dillard on 04-21-2025 Sodium [Moles/Vol] 140 mmol/L 133-145 [facility] White blood cell (WBC) count Ordered By: Becca Dillard on 04-21-2025 WBC (Bld) [#/Vol] 15.1 10*3/uL High 4.4-11.0 [facility] Culture, Blood (WB)on 05-17- 2025 CUB Blood cultures x2, from two different sites No growth in 5 days. Normal [facility] Comment on above: Performed By: #### M 200.1000 ####[facility] [address] [place], [address] Absolute lymphocyte countOrd ered By: Heath Silva on 04-10-2025 Lymphocytes Auto (Unsp spec) [#/Vol] 0.82 10*3/uL Low 0.83-4.51 [facility] Absolute neutrophil countOrd ered By: Heath Silva on 04-10-2025 Neutrophils (Bld) [#/Vol] 19.1 10*3/uL High 2.0-7.7 [facility] Anion gap in Serum or Plasma Ordered By: Ken Vieyra on 04-10-2025 Anion gap [Moles/Vol] 7 mmol/L 5-15 [facility] Automated lymphocyte count a s percentage of total leukocytesOrdered By: Heath Silva on 04-10-2025 Lymphocytes/100 WBC Auto (Unsp spec) 3.8 % Low 19-41 [facility] BUN/creatinine ratioOrdered By: Ken Vieyra on 04-10-2025 Urea nitrogen/Creatinine [Mass ratio] 44.3 mg/mg High 10-20 [facility] Basic Metabolic Profile (BMP )on 04-10-2025 BUN/CRE 44.3 RATIO High 10-20 [facility] Comment on above: Performed By: #### L 500.2500 ####[facility] [address] [place], [address] Calcium [Mass/Vol] 8.9 mg/dL Normal 7.6-11.0 [facility] Comment on above: Performed By: #### L 500.2500 ####[facility] [address] [place], [address] Chloride [Moles/Vol] 89 mmol/L Low 98-108 [facility] Comment on above: Performed By: #### L 500.2500 ####[facility] [address] [place], [address] CO2 [Moles/Vol] 40.6 mmol/L High 21.0-32.0 [facility] Comment on above: Performed By: #### L 500.2500 ####[facility] [address] [place], [address] Creatinine [Mass/Vol] 0.79 mg/dL Normal 0.70-1.20 [facility] Comment on above: Performed By: #### L 500.2500 ####[facility] [address] [place], [address] ECRCL 76.43 ml/min Normal 50-250 [facility] Comment on above: Performed By: #### L 500.2500 ####[facility] [address] [place], [address] GAP 7 Normal 5-15 [facility] Comment on above: Performed By: #### L 500.2500 ####[facility] [address] [place], [address] GFR/1.73 sq M.predicted among non-blacks MDRD (S/P/Bld) [Vol rate/Area] 80 mL/min/{1.73_m2} Normal >60 [facility] Comment on above: Result Comment: mL/m in/1.73m2 CKD-EPI Creatinine Equation (2020) Performed By: #### L 500.2500 ####[facility] [address] [place], [address] Glucose [Mass/Vol] 107 mg/dL High 70-99 [facility] Comment on above: Performed By: #### L 500.2500 ####[facility] [address] [place], [address] Potassium [Moles/Vol] 4.0 mmol/L Normal 3.3-5.1 [facility] Comment on above: Performed By: #### L 500.2500 ####[facility] [address] [place], [address] Sodium [Moles/Vol] 136 mmol/L Normal 133-145 [facility] Comment on above: Performed By: #### L 500.2500 ####[facility] [address] [place], [address] Urea nitrogen [Mass/Vol] 35 mg/dL High 4-19 [facility] Comment on above: Performed By: #### L 500.2500 ####[facility] [address] [place], [address] Basophil percentageOrdered B y: Heath Silva on 04-10-2025 Basophils/100 WBC (Bld) 0.1 % 0-[address] [facility] Bedside Glucoseon 04-10-2025 FINGERSTICK GLU 200 mg/dL High 74-106 [facility] Comment on above: Result Comment: MAURI GEMENT OF PATIENT CARE PER NURSING PROTOCOL Performed By: #### L 501.080 ####[facility] [address] [place], [address] FINGERSTICK GLU 109 mg/dL High 74-106 [facility] Comment on above: Result Comment: MAURI GEMENT OF PATIENT CARE PER NURSING PROTOCOL Performed By: #### L 501.080 ####[facility] [address] [place], [address] CBC W/Diff, Automatedon 03-26 Absolute Lymph 0.82 X10 3/uL Low 0.83-4.51 [facility] Comment on above: Performed By: #### L 100.0100 ####[facility] [address] [place], [address] Absolute Neut 19.1 X10 3/uL High 2.0-7.7 [facility] Comment on above: Performed By: #### L 100.0100 ####[facility] [address] [place], [address] Basophils/100 WBC (Bld) 0.1 % Normal 0-[address] [facility] Comment on above: Performed By: #### L 100.0100 ####[facility] [address] [place], [address] Eosinophils/100 WBC (Bld) 0.0 % Normal 0-5 [facility] Comment on above: Performed By: #### L 100.0100 ####[facility] [address] [place], [address] Erythrocyte distribution width (RBC) [Ratio] 15.7 % High 11.6-14.6 [facility] Comment on above: Performed By: #### L 100.0100 ####[facility] [address] [place], [address] Hematocrit (Bld) [Volume fraction] 36.9 % Low 37-47 [facility] Comment on above: Performed By: #### L 100.0100 ####[facility] [address] [place], [address] Hemoglobin (Bld) [Mass/Vol] 11.6 g/dL Low 12.0-15.0 [facility] Comment on above: Performed By: #### L 100.0100 ####[facility] [address] [place], [address] IG% 0.700 Normal 0.0-0.9 [facility] Comment on above: Result Comment: IG% - Immature Granulocytes (promyelocytes, myelocytes andmetamyelocytes) > 1% indicates that a LEFT SHIFT is Present. Performed By: #### L 100.0100 ####[facility] [address] [place], [address] Lymphocytes/100 WBC (Bld) 3.8 % Low 19-41 [facility] Comment on above: Performed By: #### L 100.0100 ####[facility] [address] [place], [address] MCH (RBC) [Entitic mass] 28.3 pg Normal 27.0-32.0 [facility] Comment on above: Performed By: #### L 100.0100 ####[facility] [address] [place], [address] MCHC (RBC) [Mass/Vol] 31.4 g/dL Low 32-36 [facility] Comment on above: Performed By: #### L 100.0100 ####[facility] [address] [place], [address] MCV (RBC) [Entitic vol] 90.0 fL Normal 81-99 [facility] Comment on above: Performed By: #### L 100.0100 ####[facility] [address] [place], [address] Monocytes/100 WBC (Bld) 6.1 % Normal 0-10 [facility] Comment on above: Performed By: #### L 100.0100 ####[facility] [address] [place], [address] Neutrophils/100 WBC (Bld) 89.3 % High 47-70 [facility] Comment on above: Performed By: #### L 100.0100 ####[facility] [address] [place], [address] Nucleated RBC (Bld) [#/Vol] 0 10*3/uL Normal 0-5 [facility] Comment on above: Performed By: #### L 100.0100 ####[facility] [address] [place], [address] Platelet mean volume (Bld) [Entitic vol] 10.5 fL Normal 6.2-12.0 [facility] Comment on above: Performed By: #### L 100.0100 ####[facility] [address] [place], [address] Platelets (Bld) [#/Vol] 270 10*3/uL Normal 150-450 [facility] Comment on above: Performed By: #### L 100.0100 ####[facility] [address] [place], [address] RBC (Bld) [#/Vol] 4.10 10*6/uL Low 4.2-5.4 [facility] Comment on above: Performed By: #### L 100.0100 ####[facility] [address] [place], [address] RDW SD 51.3 fl High 35.1-43.9 [facility] Comment on above: Performed By: #### L 100.0100 ####[facility] [address] [place], [address] WBC (Bld) [#/Vol] 21.4 10*3/uL High 4.4-11.0 [facility] Comment on above: Performed By: #### L 100.0100 ####[facility] [address] [place], [address] Carbon dioxide, total [Moles /volume] in Central venous bloodOrdered By: Ken Vieyra on 04-10-2025 CO2 [Moles/Vol] 40.6 mmol/L High 21.0-32.0 [facility] Chloride assayOrdered By: Bel Vieyra on 04-10-2025 Chloride [Moles/Vol] 89 mmol/L Low 98-108 [facility] Discharge Instructionon 03-26 Discharge Instruction Normal [facility] Eosinophil percentageOrdered By: Heath Silva on 04-10-2025 Eosinophils/100 WBC (Bld) 0.0 % 0-5 [facility] Erythrocyte distribution wid th ratioOrdered By: Heath Silva on 04-10-2025 Erythrocyte distribution width (RBC) [Ratio] 15.7 % High 11.6-14.6 [facility] Erythrocyte distribution wid th standard deviationOrdered By: Heath Silva on 04-10-2025 Erythrocyte distribution width (RBC) [Ratio] 51.3 fl High 35.1-43.9 [facility] Glomerular filtration rate ( GFR) estimation/1.73 sq m using serum, plasma, or whole bOrdered By: Ken Vieyra on 04-10-2025 GFR/1.73 sq M.predicted among non-blacks MDRD (S/P/Bld) [Vol rate/Area] 80 mL/min/{1.73_m2} >60 [facility] Comment on above: mL/min/1.73m2 CKD-EP I Creatinine Equation (2020) [facility] deOrdered By: Geoff Galvan on 04-10-2025 Glucose [Mass/Vol] 200 mg/dL High 74-106 [facility] Comment on above: MANAGEMENT OF PATIEN T CARE PER NURSING PROTOCOL Hematocrit Auto (Bld) [Volum e fraction]Ordered By: Heath Silva on 04-10-2025 Hematocrit (Bld) [Volume fraction] 36.9 % Low 37-47 [facility] Hemoglobin measurementOrdere d By: Heath Silva on 04-10-2025 Hemoglobin (Bld) [Mass/Vol] 11.6 g/dL Low 12.0-15.0 [facility] Immature granulocytes/100 WB C Auto (Bld)Ordered By: Heath Silva on 04-10-2025 Immature granulocytes/100 WBC (Bld) 0.700 % 0.0-0.9 [facility] Comment on above: IG% - Immature Granu locytes (promyelocytes, myelocytes and metamyelocytes) > 1% indicates that a LEFT SHIFT is Present. MCV (mean corpuscular volume ) determinationOrdered By: Heath Silva on 04-10-2025 MCV (RBC) [Entitic vol] 90.0 fL 81-[address] [facility] Mean corpuscular hemoglobin (MCH) determinationOrdered By: Heath Silva on 04-10-2025 MCH (RBC) [Entitic mass] 28.3 pg 27.0-32.0 [facility] Mean corpuscular hemoglobin concentration (MCHC) determinationOrdered By: Heath Silva on 04-10-2025 MCHC (RBC) [Mass/Vol] 31.4 g/dL Low 32-36 [facility] Mean platelet volume determi nationOrdered By: Heath Silva on 04-10-2025 Platelet mean volume (Bld) [Entitic vol] 10.5 fL 6.2-12.0 [facility] Monocyte percentageOrdered B y: Heath Silva on 04-10-2025 Monocytes/100 WBC (Bld) 6.1 % 0-[address] [facility] Neutrophil percentageOrdered By: Heath Silva on 04-10-2025 Neutrophils/100 WBC (Bld) 89.3 % High 47-70 [facility] Nucleated red blood cell per centageOrdered By: Heath Silva on 04-10-2025 Nucleated RBC/100 WBC (Bld) [Ratio] 0 % 0-5 [facility] Platelet countOrdered By: Toshia Silva on 04-10-2025 Platelets (Bld) [#/Vol] 270 10*3/uL 150-450 [facility] Potassium measurement (mass/ volume)Ordered By: Ken Vieyra on 04-10-2025 Potassium (Unsp spec) [Mass/Vol] 4.0 mmol/L 3.3-5.1 [facility] RBC Auto (Bld) [#/Vol]Ordere d By: Heath Silva on 04-10-2025 RBC (Bld) [#/Vol] 4.10 10*6/uL Low 4.2-5.4 [facility] [facility] Serum creatinine measurement (mass/volume)Ordered By: Ken Vieyra on 04-10-2025 Creatinine [Mass/Vol] 0.79 mg/dL 0.70-1.20 [facility] Serum glucose measurement (m ass/volume)Ordered By: Ken Vieyra on 04-10-2025 Glucose [Mass/Vol] 107 mg/dL High 70-99 [facility] Serum or plasma calcium diallo urement (mass/volume)Ordered By: Ken Vieyra on 04-10-2025 Calcium [Mass/Vol] 8.9 mg/dL 7.6-11.0 [facility] Serum or plasma urea nitroge n measurement (mass/volume)Ordered By: Ken Vieyra on 04-10-2025 Urea nitrogen [Mass/Vol] 35 mg/dL High 4-19 [facility] Sodium levelOrdered By: Anton Vieyra on 04-10-2025 Sodium [Moles/Vol] 136 mmol/L 133-145 [facility] White blood cell (WBC) count Ordered By: Heath Silva on 04-10-2025 WBC (Bld) [#/Vol] 21.4 10*3/uL High 4.4-11.0 [facility] Basic Metabolic Profile (BMP )on 04-09-2025 BUN/CRE 46.9 RATIO High 10-20 [facility] Comment on above: Performed By: #### L 500.2500 ####[facility] [address] [place], [address] Calcium [Mass/Vol] 9.1 mg/dL Normal 7.6-11.0 [facility] Comment on above: Performed By: #### L 500.2500 ####[facility] [address] [place], [address] Chloride [Moles/Vol] 91 mmol/L Low 98-108 [facility] Comment on above: Performed By: #### L 500.2500 ####[facility] [address] [place], [address] CO2 [Moles/Vol] 40.6 mmol/L High 21.0-32.0 [facility] Comment on above: Performed By: #### L 500.2500 ####[facility] [address] [place], [address] Creatinine [Mass/Vol] 0.67 mg/dL Low 0.70-1.20 [facility] Comment on above: Performed By: #### L 500.2500 ####[facility] [address] [place], [address] ECRCL 76.39 ml/min Normal 50-250 [facility] Comment on above: Performed By: #### L 500.2500 ####[facility] [address] [place], [address] GAP 7 Normal 5-15 [facility] Comment on above: Performed By: #### L 500.2500 ####[facility] [address] [place], [address] GFR/1.73 sq M.predicted among non-blacks MDRD (S/P/Bld) [Vol rate/Area] 93 mL/min/{1.73_m2} Normal >60 [facility] Comment on above: Result Comment: mL/m in/1.73m2 CKD-EPI Creatinine Equation (2020) Performed By: #### L 500.2500 ####[facility] [address] [place], [address] Glucose [Mass/Vol] 134 mg/dL High 70-99 [facility] Comment on above: Performed By: #### L 500.2500 ####[facility] [address] [place], [address] Potassium [Moles/Vol] 4.0 mmol/L Normal 3.3-5.1 [facility] Comment on above: Performed By: #### L 500.2500 ####[facility] [address] [place], [address] Sodium [Moles/Vol] 139 mmol/L Normal 133-145 [facility] Comment on above: Performed By: #### L 500.2500 ####[facility] [address] [place], [address] Urea nitrogen [Mass/Vol] 32 mg/dL High 4-19 [facility] Comment on above: Performed By: #### L 500.2500 ####[facility] [address] [place], [address] Bedside Glucoseon 04-09-2025 FINGERSTICK GLU 242 mg/dL High 74-106 [facility] Comment on above: Result Comment: MAURI IVORY OF PATIENT CARE PER NURSING PROTOCOL Performed By: #### L 501.080 ####[facility] [address] [place], [address] FINGERSTICK GLU 91 mg/dL Normal 74-106 [facility] Comment on above: Result Comment: MAURI GEMENT OF PATIENT CARE PER NURSING PROTOCOL Performed By: #### L 501.080 ####[facility] [address] [place], [address] FINGERSTICK GLU 277 mg/dL High 74-106 [facility] Comment on above: Result Comment: MAURI GEMENT OF PATIENT CARE PER NURSING PROTOCOL Performed By: #### L 501.080 ####[facility] [address] [place], [address] FINGERSTICK GLU 157 mg/dL High 74-106 [facility] Comment on above: Result Comment: MAURI GEMENT OF PATIENT CARE PER NURSING PROTOCOL Performed By: #### L 501.080 ####[facility] [address] [place], [address] FINGERSTICK GLU 239 mg/dL High 74-106 [facility] Comment on above: Result Comment: MAURI GEMENT OF PATIENT CARE PER NURSING PROTOCOL Performed By: #### L 501.080 ####[facility] [address] [place], [address] CBC W/Diff, Automatedon 05- Absolute Lymph 0.37 X10 3/uL Low 0.83-4.51 [facility] Comment on above: Performed By: #### L 100.0100 ####[facility] [address] [place], [address] Absolute Neut 19.4 X10 3/uL High 2.0-7.7 [facility] Comment on above: Performed By: #### L 100.0100 ####[facility] [address] [place], [address] Basophils/100 WBC (Bld) 0.1 % Normal 0-[address] [facility] Comment on above: Performed By: #### L 100.0100 ####[facility] [address] [place], [address] Eosinophils/100 WBC (Bld) 0.0 % Normal 0-5 [facility] Comment on above: Performed By: #### L 100.0100 ####[facility] [address] [place], [address] Erythrocyte distribution width (RBC) [Ratio] 15.9 % High 11.6-14.6 [facility] Comment on above: Performed By: #### L 100.0100 ####[facility] [address] [place], [address] Hematocrit (Bld) [Volume fraction] 39.9 % Normal 37-47 [facility] Comment on above: Performed By: #### L 100.0100 ####[facility] [address] [place], [address] Hemoglobin (Bld) [Mass/Vol] 12.5 g/dL Normal 12.0-15.0 [facility] Comment on above: Performed By: #### L 100.0100 ####[facility] [address] [place], [address] IG% 0.700 Normal 0.0-0.9 [facility] Comment on above: Result Comment: IG% - Immature Granulocytes (promyelocytes, myelocytes andmetamyelocytes) > 1% indicates that a LEFT SHIFT is Present. Performed By: #### L 100.0100 ####[facility] [address] [place], [address] Lymphocytes/100 WBC (Bld) 1.8 % Low 19-41 [facility] Comment on above: Performed By: #### L 100.0100 ####[facility] [address] [place], [address] MCH (RBC) [Entitic mass] 28.8 pg Normal 27.0-32.0 [facility] Comment on above: Performed By: #### L 100.0100 ####[facility] [address] [place], [address] MCHC (RBC) [Mass/Vol] 31.3 g/dL Low 32-36 [facility] Comment on above: Performed By: #### L 100.0100 ####[facility] [address] [place], [address] MCV (RBC) [Entitic vol] 91.9 fL Normal 81-99 [facility] Comment on above: Performed By: #### L 100.0100 ####[facility] [address] [place], [address] Monocytes/100 WBC (Bld) 3.3 % Normal 0-10 [facility] Comment on above: Performed By: #### L 100.0100 ####[facility] [address] [place], [address] Neutrophils/100 WBC (Bld) 94.1 % High 47-70 [facility] Comment on above: Performed By: #### L 100.0100 ####[facility] [address] [place], [address] Nucleated RBC (Bld) [#/Vol] 0 10*3/uL Normal 0-5 [facility] Comment on above: Performed By: #### L 100.0100 ####[facility] [address] [place], [address] Platelet mean volume (Bld) [Entitic vol] 10.0 fL Normal 6.2-12.0 [facility] Comment on above: Performed By: #### L 100.0100 ####[facility] [address] [place], [address] Platelets (Bld) [#/Vol] 259 10*3/uL Normal 150-450 [facility] Comment on above: Performed By: #### L 100.0100 ####[facility] [address] [place], [address] RBC (Bld) [#/Vol] 4.34 10*6/uL Normal 4.2-5.4 [facility] Comment on above: Performed By: #### L 100.0100 ####[facility] [address] [place], [address] RDW SD 52.8 fl High 35.1-43.9 [facility] Comment on above: Performed By: #### L 100.0100 ####[facility] [address] [place], [address] WBC (Bld) [#/Vol] 20.6 10*3/uL High 4.4-11.0 [facility] Comment on above: Performed By: #### L 100.0100 ####[facility] [address] [place], [address] Anion gap in Serum or Plasma Ordered By: Ken Vieyra on 04-08-2025 Anion gap [Moles/Vol] 9 mmol/L -15 [facility] BUN/creatinine ratioOrdered By: Ken Vieyra on 04-08-2025 Urea nitrogen/Creatinine [Mass ratio] 40.4 mg/mg High 10-20 [facility] Basic Metabolic Profile (BMP )on 04-08-2025 BUN/CRE 40.4 RATIO High - [facility] Comment on above: Performed By: #### L 500.2500 ####[facility] [address] [place], [address] Calcium [Mass/Vol] 8.9 mg/dL Normal 7.6-11.0 [facility] Comment on above: Performed By: #### L 500.2500 ####[facility] [address] [place], [address] Chloride [Moles/Vol] 87 mmol/L Low 98-108 [facility] Comment on above: Performed By: #### L 500.2500 ####[facility] [address] [place], [address] CO2 [Moles/Vol] 43.6 mmol/L High 21.0-32.0 [facility] Comment on above: Performed By: #### L 500.2500 ####[facility] [address] [place], [address] Creatinine [Mass/Vol] 0.82 mg/dL Normal 0.70-1.20 [facility] Comment on above: Performed By: #### L 500.2500 ####[facility] [address] [place], [address] ECRCL 74.56 ml/min Normal 50-250 [facility] Comment on above: Performed By: #### L 500.2500 ####[facility] [address] [place], [address] GAP 9 Normal 5-15 [facility] Comment on above: Performed By: #### L 500.2500 ####[facility] [address] [place], [address] GFR/1.73 sq M.predicted among non-blacks MDRD (S/P/Bld) [Vol rate/Area] 77 mL/min/{1.73_m2} Normal >60 [facility] Comment on above: Result Comment: mL/m in/1.73m2 CKD-EPI Creatinine Equation (2020) Performed By: #### L 500.2500 ####[facility] [address] [place], [address] Glucose [Mass/Vol] 149 mg/dL High 70-99 [facility] Comment on above: Performed By: #### L 500.2500 ####[facility] [address] [place], [address] Potassium [Moles/Vol] 2.8 mmol/L Low 3.3-5.1 [facility] Comment on above: Performed By: #### L 500.2500 ####[facility] [address] [place], [address] Sodium [Moles/Vol] 139 mmol/L Normal 133-145 [facility] Comment on above: Performed By: #### L 500.2500 ####[facility] [address] [place], [address] Urea nitrogen [Mass/Vol] 33 mg/dL High 4-19 [facility] Comment on above: Performed By: #### L 500.2500 ####[facility] [address] [place], [address] Bedside Glucoseon 04-08-2025 FINGERSTICK GLU 81 mg/dL Normal 74-106 [facility] Comment on above: Result Comment: MAURI GEMENT OF PATIENT CARE PER NURSING PROTOCOL Performed By: #### L 501.080 ####[facility] [address] [place], [address] FINGERSTICK GLU 175 mg/dL High 74-106 [facility] Comment on above: Result Comment: MAURI GEMENT OF PATIENT CARE PER NURSING PROTOCOL Performed By: #### L 501.080 ####[facility] [address] [place], [address] FINGERSTICK GLU 289 mg/dL High 74-106 [facility] Comment on above: Result Comment: MAURI GEMENT OF PATIENT CARE PER NURSING PROTOCOL Performed By: #### L 501.080 ####[facility] [address] [place], [address] [facility] Results To de joel Normal [facility] Comment on above: Performed By: #### L 9000.0800 ####[facility] [address] [place], [address] Carbon dioxide, total [Moles /volume] in Central venous bloodOrdered By: Ken Vieyra on 04-08-2025 CO2 [Moles/Vol] 43.6 mmol/L High 21.0-32.0 [facility] Chloride assayOrdered By: Bel Vieyra on 04-08-2025 Chloride [Moles/Vol] 87 mmol/L Low 98-108 [facility] Glomerular filtration rate ( GFR) estimation/1.73 sq m using serum, plasma, or whole bOrdered By: Ken Vieyra on 04-08-2025 GFR/1.73 sq M.predicted among non-blacks MDRD (S/P/Bld) [Vol rate/Area] 77 mL/min/{1.73_m2} >60 [facility] Comment on above: mL/min/1.73m2 CKD-EP I Creatinine Equation (2020) [facility] deOrdered By: Ken Vieyra on 04-08-2025 Glucose [Mass/Vol] 289 mg/dL High 74-106 [facility] Comment on above: MANAGEMENT OF PATIEN T CARE PER NURSING PROTOCOL Magnesiumon 04-08-2025 Magnesium [Mass/Vol] 2.5 mg/dL High 1.5-2.2 [facility] Comment on above: Performed By: #### L 501.2300, L501.5200 ####[facility] [address] [place], [address] Magnesium measurement (mass/ volume)Ordered By: Ken Vieyra on 04-08-2025 Magnesium (Unsp spec) [Mass/Vol] 2.5 mg/dL High 1.5-2.2 [facility] Phosphoruson 04-08-2025 Phosphate [Mass/Vol] 4.4 mg/dL Normal 2.7-4.5 [facility] Comment on above: Performed By: #### L 501.2300, L501.5200 ####[facility] [address] [place], [place], [id number] Potassium measurement (mass/ volume)Ordered By: Ken Vieyra on 04-08-2025 Potassium (Unsp spec) [Mass/Vol] 2.8 mmol/L Low 3.3-5.1 [facility] Serum creatinine measurement (mass/volume)Ordered By: Ken Vieyra on 04-08-2025 Creatinine [Mass/Vol] 0.82 mg/dL 0.70-1.20 [facility] Serum glucose measurement (m ass/volume)Ordered By: Ken Vieyra on 04-08-2025 Glucose [Mass/Vol] 149 mg/dL High 70-99 [facility] Serum or plasma calcium diallo urement (mass/volume)Ordered By: Ken Vieyra on 04-08-2025 Calcium [Mass/Vol] 8.9 mg/dL 7.6-11.0 [facility] Serum or plasma urea nitroge n measurement (mass/volume)Ordered By: Ken Vieyra on 04-08-2025 Urea nitrogen [Mass/Vol] 33 mg/dL High 4-19 [facility] Sodium levelOrdered By: Anton Vieyra on 04-08-2025 Sodium [Moles/Vol] 139 mmol/L 133-145 [facility] Absolute lymphocyte countOrd ered By: Ken Vieyra on 04-07-2025 Lymphocytes Auto (Unsp spec) [#/Vol] 0.46 10*3/uL Low 0.83-4.51 [facility] Absolute neutrophil countOrd ered By: Ken Vieyra on 04-07-2025 Neutrophils (Bld) [#/Vol] 30.0 10*3/uL High 2.0-7.7 [facility] Automated lymphocyte count a s percentage of total leukocytesOrdered By: Ken Vieyra on 04-07-2025 Lymphocytes/100 WBC Auto (Unsp spec) 1.4 % Low 19-41 [facility] Basic Metabolic Profile (BMP )on 04-07-2025 BUN/CRE 31.1 RATIO High 10-20 [facility] Comment on above: Performed By: #### L 500.2500, L100.0100 ####[facility] [address] [place], [address] Calcium [Mass/Vol] 9.4 mg/dL Normal 7.6-11.0 [facility] Comment on above: Performed By: #### L 500.2500, L100.0100 ####[facility] [address] [place], [address] Chloride [Moles/Vol] 88 mmol/L Low 98-108 [facility] Comment on above: Performed By: #### L 500.2500, L100.0100 ####[facility] [address] [place], [address] CO2 [Moles/Vol] 41.0 mmol/L High 21.0-32.0 [facility] Comment on above: Performed By: #### L 500.2500, L100.0100 ####[facility] [address] [place], [address] Creatinine [Mass/Vol] 1.07 mg/dL Normal 0.70-1.20 [facility] Comment on above: Performed By: #### L 500.2500, L100.0100 ####[facility] [address] [place], [address] ECRCL 57.45 ml/min Normal 50-250 [facility] Comment on above: Performed By: #### L 500.2500, L100.0100 ####[facility] [address] [place], [address] GAP 12 Normal 5-15 [facility] Comment on above: Performed By: #### L 500.2500, L100.0100 ####[facility] [address] [place], [address] GFR/1.73 sq M.predicted among non-blacks MDRD (S/P/Bld) [Vol rate/Area] 56 mL/min/{1.73_m2} Low >60 [facility] Comment on above: Result Comment: mL/m in/1.73m2 CKD-EPI Creatinine Equation (2020) Performed By: #### L 500.2500, L100.0100 ####[facility] [address] [place], [address] Glucose [Mass/Vol] 187 mg/dL High 70-99 [facility] Comment on above: Performed By: #### L 500.2500, L100.0100 ####[facility] [address] [place], [address] Potassium [Moles/Vol] 3.5 mmol/L Normal 3.3-5.1 [facility] Comment on above: Performed By: #### L 500.2500, L100.0100 ####[facility] [address] [place], [address] Sodium [Moles/Vol] 141 mmol/L Normal 133-145 [facility] Comment on above: Performed By: #### L 500.2500, L100.0100 ####[facility] [address] [place], [address] Urea nitrogen [Mass/Vol] 33 mg/dL High 4-19 [facility] Comment on above: Performed By: #### L 500.2500, L100.0100 ####[facility] [address] [place], [address] Basophil percentageOrdered B y: Ken Vieyra on 04-07-2025 Basophils/100 WBC (Bld) 0.2 % 0-[address] [facility] Bedside Glucoseon 04-07-2025 FINGERSTICK GLU 239 mg/dL High 74-106 [facility] Comment on above: Result Comment: MAURI IVORY OF PATIENT CARE PER NURSING PROTOCOL Performed By: #### L 501.080 ####[facility] [address] [place], [address] FINGERSTICK GLU 128 mg/dL High 74-106 [facility] Comment on above: Result Comment: MAURI GEMENT OF PATIENT CARE PER NURSING PROTOCOL Performed By: #### L 501.080 ####[facility] [address] [place], [address] FINGERSTICK GLU 161 mg/dL High 74-106 [facility] Comment on above: Result Comment: MAURI GEMENT OF PATIENT CARE PER NURSING PROTOCOL Performed By: #### L 501.080 ####[facility] [address] [facility] [address] FINGERSTICK GLU 160 mg/dL High 74-106 [facility] Comment on above: Result Comment: MAURI GEMENT OF PATIENT CARE PER NURSING PROTOCOL Performed By: #### L 501.080 ####[facility] [address] [facility] [address] FINGERSTICK GLU 155 mg/dL High 74-106 [facility] Comment on above: Result Comment: MAURI GEMENT OF PATIENT CARE PER NURSING PROTOCOL Performed By: #### L 501.080 ####[facility] [address] [place], [address] CBC W/Diff, Automatedon 03-26 PLT EST A Normal ADEQ [facility] Comment on above: Order Comment: CRITI ELISHA VALUE CALLED TO AZRA MONAHAN04/07/25 1607 Dhara Julio.RESULTS READ BACK BY SAME. Performed By: #### L 500.2500, L100.0100 ####[facility] [address] [place] [id number] Eosinophil percentageOrdered By: Ken Vieyra on 04-07-2025 Eosinophils/100 WBC (Bld) 0.0 % 0-5 [facility] Erythrocyte distribution wid th ratioOrdered By: Ken Vieyra on 04-07-2025 Erythrocyte distribution width (RBC) [Ratio] 15.8 % High 11.6-14.6 [facility] Erythrocyte distribution wid th standard deviationOrdered By: Ken Vieyra on 04-07-2025 Erythrocyte distribution width (RBC) [Ratio] 51.9 fl High 35.1-43.9 [facility] Hematocrit Auto (Bld) [Volum e fraction]Ordered By: Ken Vieyra on 04-07-2025 Hematocrit (Bld) [Volume fraction] 38.9 % 37-47 [facility] Hemoglobin A1con 04-07-2025 HbA1c (Bld) [Mass fraction] 6.3 % High <=5.6 [facility] Comment on above: Result Comment: Norm al < 5.7 % Prediabetic 5.7 - 6.4 % Diabetic >or= 6.5 % Please note range changes. Performed By: #### L 501.9985 ####[facility] [address] [place], [place], [id number] Hemoglobin A1c percentageOrd ered By: Ken Vieyra on 04-07-2025 HbA1c (Bld) [Mass fraction] 6.3 % High <5.7 [facility] Comment on above: Normal < 5.7 % Predi abetic 5.7 - 6.4 % Diabetic >or= 6.5 % Please note range changes. Hemoglobin measurementOrdere d By: Ken Vieyra on 04-07-2025 Hemoglobin (Bld) [Mass/Vol] 12.4 g/dL 12.0-15.0 [facility] Immature granulocytes/100 WB C Auto (Bld)Ordered By: Ken Vieyra on 04-07-2025 Immature granulocytes/100 WBC (Bld) 1.000 % High 0.0-0.9 [facility] Comment on above: IG% - Immature Granu locytes (promyelocytes, myelocytes and metamyelocytes) > 1% indicates that a LEFT SHIFT is Present. MCV (mean corpuscular volume ) determinationOrdered By: Ken Vieyra on 04-07-2025 MCV (RBC) [Entitic vol] 91.3 fL 81-[address] [facility] Mean corpuscular hemoglobin (MCH) determinationOrdered By: Ken Vieyra on 04-07-2025 MCH (RBC) [Entitic mass] 29.1 pg 27.0-32.0 [facility] Mean corpuscular hemoglobin concentration (MCHC) determinationOrdered By: Ken Vieyra on 05-13-2025 MCHC (RBC) [Mass/Vol] 31.9 g/dL Low 32-36 [facility] Comment on above: Delta: 30.2 on 04/06 Mean platelet volume determi nationOrdered By: Ken Vieyra on 04-07-2025 Platelet mean volume (Bld) [Entitic vol] 10.0 fL 6.2-12.0 [facility] Monocyte percentageOrdered B y: Ken Vieyra on 04-07-2025 Monocytes/100 WBC (Bld) 3.3 % 0-[address] [facility] Neutrophil percentageOrdered By: Ken Vieyra on 04-07-2025 Neutrophils/100 WBC (Bld) 94.1 % High 47-70 [facility] Nucleated red blood cell per centageOrdered By: Ken Vieyra on 04-07-2025 Nucleated RBC/100 WBC (Bld) [Ratio] 0 % 0-5 [facility] Phosphoruson 04-07-2025 Phosphate [Mass/Vol] 3.3 mg/dL Normal 2.7-4.5 [facility] Comment on above: Performed By: #### L 501.2300 ####[facility] [address] [facility] [place], [id number] Platelet countOrdered By: Bel Vieyra on 04-07-2025 Platelets (Bld) [#/Vol] 365 10*3/uL 150-450 [facility] Platelet estimateOrdered By: Ken Vieyra on 04-07-2025 Platelets LM Ql (Bld) A ADEQ [facility] RBC Auto (Bld) [#/Vol]Ordere d By: Ken Vieyra on 04-07-2025 RBC (Bld) [#/Vol] 4.26 10*6/uL 4.2-5.4 [facility] White blood cell (WBC) count Ordered By: Ken Vieyra on 04-07-2025 WBC (Bld) [#/Vol] 31.9 10*3/uL High 4.4-11.0 [facility] Assessment of wrist artery p atency prior to arterial punctureOrdered By: Orlando Maldonado on 04-06-2025 Arterial patency Wrist artery --pre arterial puncture Positive [facility] Bedside Glucoseon 04-06-2025 FINGERSTICK GLU 175 mg/dL High 74-106 [facility] Comment on above: Result Comment: MAURI GEMENT OF PATIENT CARE PER NURSING PROTOCOL Performed By: #### L 501.080 ####[facility] [address] [place], [address] FINGERSTICK GLU 173 mg/dL High 74-106 [facility] Comment on above: Result Comment: MAURI GEMENT OF PATIENT CARE PER NURSING PROTOCOL Performed By: #### L 501.080 ####[facility] [address] [place], [address] Bilirubin, totalOrdered By: Orlando Maldonado on 04-06-2025 Bilirubin [Mass/Vol] 0.23 mg/dL 0.00-1.30 [facility] Blood Gases by CPSon 025 ZECHARIAH TEST Positive Normal [facility] Comment on above: Performed By: #### L 9000.0800 ####[facility] [address] [place], [address] Base excess Calc (Bld) [Moles/Vol] 23 mmol/L High -2 to +2 [facility] Comment on above: Performed By: #### L 9000.0800 ####[facility] [address] [place], [address] Blood Gas Type ART Normal [facility] Comment on above: Performed By: #### L 9000.0800 ####[facility] [address] [place], [address] FI02 35.0 Normal [facility] Comment on above: Performed By: #### L 9000.0800 ####[facility] [address] [place], [address] HCO3 (Bld) [Moles/Vol] 47.7 mmol/L High 22-[address] [facility] Comment on above: Performed By: #### L 9000.0800 ####[facility] [address] [place], [address] Mode Not entered Normal [facility] Comment on above: Performed By: #### L 9000.0800 ####[facility] [address] [place], [address] O2 Delivery Dev BiPAP Normal [facility] Comment on above: Performed By: #### L 0.0800 ####[facility] [address] [place], [address] pCO2 75.5 mmHg Invalid Interpretation Code 35-45 [facility] Comment on above: Performed By: #### L 0.0800 ####[facility] [address] [place], [address] pH (Bld) 7.41 [pH] Normal 7.35-7.45 [facility] Comment on above: Performed By: #### L 9000.0800 ####[facility] [address] [place], [address] PO2 54 mmHG Low 75-100 [facility] Comment on above: Performed By: #### L 0.0800 ####[facility] [address] [place], [address] Read Back By Yes Normal [facility] Comment on above: Performed By: #### L 9000.0800 ####[facility] [address] [place], [address] SITE L Radial Normal [facility] Comment on above: Performed By: #### L 9000.0800 ####[facility] [address] [place], [address] SO2 85 Low 95-99 [facility] Comment on above: Performed By: #### L 9000.0800 ####[facility] [address] [place], [address] TOTAL CO2 > 50 Normal [facility] Comment on above: Performed By: #### L 9000.0800 ####[facility] [address] [place], [address] Blood base excess determinat ionOrdered By: Orlando Maldonado on 04-06-2025 Base excess Calc (BldV) [Moles/Vol] 23 mmol/L High -2-2 [facility] Blood bicarbonate measuremen tOrdered By: Orlando Maldonado on 04-06-2025 HCO3 (Bld) [Moles/Vol] 47.7 mmol/L High 22-[address] [facility] Blood manual differential co mment interpretation (narrative result)Ordered By: Orlando Maldonado on 04-06-2025 Manual differential comment Eugene (Bld) [Interp] SCANNED [facility] CBC W/Diff, Automatedon 03-26 PLT EST ADEQUATE Normal ADEQ [facility] Comment on above: Performed By: #### L 100.0100, L500.4050, L503.7505, L501.2300 ####[facility] [address] [facility] [place], [address] RED CELL MORPH NORM C+C Normal NORM C C [facility] Comment on above: Performed By: #### L 100.0100, L500.4050, L503.7505, L501.2300 ####[facility] [address] [place], [address] SMEAR COMMENT SCANNED Normal [facility] Comment on above: Performed By: #### L 100.0100, L500.4050, L503.7505, L501.2300 ####[facility] [address] [place], [address] CRPon 04-06-2025 C-REACTIVE PROT 18.90 mg/L High 0.0-3.0 [facility] Comment on above: Performed By: #### L 501.6710, L101.9900 ####[facility] [address] [place], [address] Calculated very low density lipoprotein (VLDL) cholesterol measurementOrdered By: Ken Vieyra on 04-06-2025 Calculated very low density lipoprotein (VLDL) cholesterol measurement 14 mg/dL 5-40 [facility] Comprehensive Metabolic Prof ilon 04-06-2025 Albumin [Mass/Vol] 3.4 g/dL Normal 3.4-4.8 [facility] Comment on above: Performed By: #### L 100.0100, L500.4050, L503.7505, L501.2300 ####[facility] [address] [place], [address] Albumin/Globulin [Mass ratio] 1.3 {ratio} Normal 0.9-2.4 [facility] Comment on above: Performed By: #### L 100.0100, L500.4050, L503.7505, L501.2300 ####[facility] [address] [place], [address] ALK PHOS 53 U/L Normal 35-104 [facility] Comment on above: Performed By: #### L 100.0100, L500.4050, L503.7505, L501.2300 ####[facility] [address] [place], [address] ALT [Catalytic activity/Vol] 41 U/L High <=34 [facility] Comment on above: Performed By: #### L 100.0100, L500.4050, L503.7505, L501.2300 ####[facility] [address] [place], [address] AST [Catalytic activity/Vol] 20 U/L Normal <=31 [facility] Comment on above: Result Comment: Hemo lysis present, Results??could be affected.?? Performed By: #### L 100.0100, L500.4050, L503.7505, L501.2300 ####[facility] [address] [place], [address] Bilirubin [Mass/Vol] 0.23 mg/dL Normal 0.00-1.30 [facility] Comment on above: Performed By: #### L 100.0100, L500.4050, L503.7505, L501.2300 ####[facility] [address] [place], [address] BUN/CRE 27.3 RATIO High 10-20 [facility] Comment on above: Performed By: #### L 100.0100, L500.4050, L503.7505, L501.2300 ####[facility] [address] [place], [address] Calcium [Mass/Vol] 8.6 mg/dL Normal 7.6-11.0 [facility] Comment on above: Performed By: #### L 100.0100, L500.4050, L503.7505, L501.2300 ####[facility] [address] [place], [address] Chloride [Moles/Vol] 88 mmol/L Low 98-108 [facility] Comment on above: Performed By: #### L 100.0100, L500.4050, L503.7505, L501.2300 ####[facility] [address] [place], [address] CO2 [Moles/Vol] 42.0 mmol/L High 21.0-32.0 [facility] Comment on above: Performed By: #### L 100.0100, L500.4050, L503.7505, L501.2300 ####[facility] [address] [place], [address] Creatinine [Mass/Vol] 0.60 mg/dL Low 0.70-1.20 [facility] Comment on above: Performed By: #### L 100.0100, L500.4050, L503.7505, L501.2300 ####[facility] [address] [place], [address] ECRCL 77.49 ml/min Normal 50-250 [facility] Comment on above: Performed By: #### L 100.0100, L500.4050, L503.7505, L501.2300 ####[facility] [address] [place], [address] GAP 10 Normal 5-15 [facility] Comment on above: Performed By: #### L 100.0100, L500.4050, L503.7505, L501.2300 ####[facility] [address] [place], [address] GFR/1.73 sq M.predicted among non-blacks MDRD (S/P/Bld) [Vol rate/Area] 96 mL/min/{1.73_m2} Normal >60 [facility] Comment on above: Result Comment: mL/m in/1.73m2 CKD-EPI Creatinine Equation (2020) Performed By: #### L 100.0100, L500.4050, L503.7505, L501.2300 ####[facility] [address] [place], [address] Globulin (S) [Mass/Vol] 2.7 g/dL Normal 2.2-4.2 [facility] Comment on above: Performed By: #### L 100.0100, L500.4050, L503.7505, L501.2300 ####[facility] [address] [place], [address] Glucose [Mass/Vol] 233 mg/dL High 70-99 [facility] Comment on above: Performed By: #### L 100.0100, L500.4050, L503.7505, L501.2300 ####[facility] [address] [place], [address] Potassium [Moles/Vol] 4.0 mmol/L Normal 3.3-5.1 [facility] Comment on above: Result Comment: Hemo lysis present, Results??could be affected.?? Performed By: #### L 100.0100, L500.4050, L503.7505, L501.2300 ####[facility] [address] [place], [address] Sodium [Moles/Vol] 140 mmol/L Normal 133-145 [facility] Comment on above: Performed By: #### L 100.0100, L500.4050, L503.7505, L501.2300 ####[facility] [address] [place], [address] T PROT 6.1 g/dL Normal 5.9-8.4 [facility] Comment on above: Performed By: #### L 100.0100, L500.4050, L503.7505, L501.2300 ####[facility] [address] [place], [address] Urea nitrogen [Mass/Vol] 16 mg/dL Normal 4-19 [facility] Comment on above: Performed By: #### L 100.0100, L500.4050, L503.7505, L501.2300 ####[facility] [address] [place], [address] Electrocardiogram reportOrde red By: Yasmani Bruno on 04-06-2025 EKG study [facility] Cardiovascular Services [address] [place] [address] 12 Lead EKG 04/05/252057 MR#: [id number] Acct: [id number] Name: PIPER CLARK Rep #:[id number] 1 : 1955 69 From: Yasmani parra MD Attending Dr: Dr. Ken Vieyra MD Status: ADM IN Ordering Dr: Andi Ortiz MD Date: 04/05/25 Location: [facility] Sex: F C Admitted: 04/05/25 Test Reason : SOB Blood Pressure : */* mmHG Vent. Rate : 97 BPM Atrial Rate : * BPM P-R Int : * ms QRS Dur : 88 ms QT Int : 316 ms P-R-T Axes : * 59 30 degrees QTcB Int : 401 ms Atrial fibrillation Low voltage QRS Abnormal ECG Confirmed by Yasmani Bruno ([id number]), metropolitan editor SHANNAN MAN ([id number]) on :25:24 AM Referred By: Orlando Bolden Confirmed By: Yasmani Bruno 04/06/25 0925 Date _ Yasmani Bruno MD CC: Dr. Andi Ortiz MD; Dr. Genia Chappell MD; Dr. Orlando Bolden DO; Dr. Ken Vieyra MD ~ Signed [facility] Other Phone: Erythrocyte Sed Rateon 04-06 SED RATE 18 mm/hr Normal 0-30 [facility] Comment on above: Performed By: #### L 501.6710, L101.9900 ####[facility] [address] [place], [place], [address] Erythrocyte morphology asses smentOrdered By: Orlando Maldonado on 04-06-2025 RBC morphology finding Nom (Bld) NORM C+C NORMAL NORM C&C [facility] Erythrocyte sedimentation ra teOrdered By: Orlando Maldonado on 04-06-2025 ESR (Bld) [Velocity] 18 mm/h 0-30 [facility] L499.0043on 04-06-2025 Trop T High Sen 12 ng/L Normal <=14 [facility] Comment on above: Performed By: #### L 499.0043 ####[facility] [address] [place], [address] L503.7505on 04-06-2025 Natriuretic peptide B (Bld) [Mass/Vol] 1763 pg/mL High <=900 [facility] Comment on above: Result Comment: Hear t Failure Unlikely: < 300 pg/mLHeart Failure Likely< 50 Years: > 450 pg/mL50-75 Years: > 900 pg/mL>75 Years: > 1800 pg/mL Performed By: #### L 100.0100, L500.4050, L503.7505, L501.2300 ####[facility] [address] [place], [place], [address] LDL calc ser/plasOrdered By: Ken Vieyra on 04-06-2025 Cholesterol in LDL [Mass/Vol] 61 mg/dL [facility] Comment on above: Qcnwfqptfs=321-693 m g/dL & Higher Akyc=634 mg/dL or greater Laboratory - Chemistry and C hemistry - challengeOrdered By: Orlando Maldonado on 04-06-2025 AST [Catalytic activity/Vol] 20 U/L <32 [facility] Comment on above: Hemolysis present, R esults could be affected. Lactic Acidon 04-06-2025 Lactate [Moles/Vol] 3.0 mmol/L Invalid Interpretation Code 0.0-2.0 [facility] Comment on above: Result Comment: Crit ical Result(s) Called at 1003: by: NEHEMIAH GUTIÉRREZ. ??Results read back by same. Performed By: #### L 574.6003 ####[facility] [address] [place], [place], [address] Lactate [Moles/Vol] 2.2 mmol/L Invalid Interpretation Code 0.0-2.0 [facility] Comment on above: Order Comment: Y Result Comment: Crit ical Result(s) Called at 0559: by: JJ BELL??Results read back by same. Performed By: #### L 697.6005 ####[facility] [address] [place], [address] Lactate [Moles/Vol] 2.9 mmol/L Invalid Interpretation Code 0.0-2.0 [facility] Comment on above: Order Comment: N Result Comment: Crit ical Result(s) Called at: 0136 by:??NBURNS TO SHANELLTERResults read back by same. Performed By: #### L 503.6005 ####[facility] [address] [place], [place], [address] Lactic acid measurementOrder ed By: Orlando Maldonado on 04-06-2025 Lactate [Moles/Vol] 3.0 mmol/L High 0.0-2.0 [facility] Comment on above: Critical Result(s) C alled at 1003: by: NEHEMIAH RAUSCH. Results read back by same. Lipid Profileon 04-06-2025 CHOL:HDL 2.04 Normal [facility] Comment on above: Performed By: #### L 500.4100 ####[facility] [address] [place], [place], [address] Cholesterol [Mass/Vol] 147 mg/dL Normal <=200 [facility] Comment on above: Result Comment: Chol esterol level, Desirable <200 mg/dLBorderline high cholesterol 200-239 mg/dLHigh cholesterol >=240 mg/dLRecommendations of the NCEP Adult Treatment Panel for thefollowing risk-cutoff thresholds for the [place] Americanpulation. Performed By: #### L 500.4100 ####[facility] [address] [place], [place], [address] Cholesterol in HDL [Mass/Vol] 72 mg/dL Normal [facility] Comment on above: Result Comment: Leslie onal Cholesterol Education Program (NCEP) guidelines:<40 mg/dL: Low HDL-cholesterol (major risk factor for CHD)>= 60 mg/dL: High HDL-cholesterol (negative risk factor forCHD)HDL-cholesterol is affected by a number of factors, e.g.smoking, exercise, hormones, sex and age. Performed By: #### L 500.4100 ####[facility] [address] [place], [place], [address] Cholesterol in LDL [Mass/Vol] 61 mg/dL Normal [facility] Comment on above: Result Comment: Bord ynblmt=424-066 mg/dL Higher Thlx=571 mg/dL or greater Performed By: #### L 500.4100 ####[facility] [address] [place], [place], [phone] Cholesterol in VLDL [Mass/Vol] 14 mg/dL Normal 5-40 [facility] Comment on above: Performed By: #### L 500.4100 ####[facility] [address] [place], [address] Triglyceride [Mass/Vol] 71 mg/dL Normal [facility] Comment on above: Result Comment: The drugs N-Acetylcysteine and Metamizole may falselydepress this assay.Normal range: <150 mg/dLBorderline High: 150-199 mg/dLHigh: 200-499 mg/dLVery High: >500 mg/dL Performed By: #### L 500.4100 ####[facility] [address] [place], [place], [address] Magnesiumon 04-06-2025 Magnesium [Mass/Vol] 1.9 mg/dL Normal 1.5-2.2 [facility] Comment on above: Performed By: #### L 501.5200 ####[facility] [address] [place], [place], [address] Measurement, pHOrdered By: Ellen Maldonado on 04-06-2025 pH (Unsp spec) 7.41 [pH] 7.35-7.45 [facility] Natriuretic peptide.B prohor inessa N-Terminal [Mass/volume] in Serum or PlasmaOrdered By: Orlando Maldonado on 04-06-2025 Natriuretic peptide.B prohormone N-Terminal [Mass/Vol] 1763 pg/mL High <900 [facility] Comment on above: Heart Failure Unlike ly: < 300 pg/mLHeart Failure Likely< 50 Years: > 450 pg/mL50-75 Years: > 900 pg/mL>75 Years: > 1800 pg/mL No Panel InformationOrdered By: Orlando Maldonado on 04-06-2025 Bld Gas Crit Called To/Read Back By Yes [facility] Blood Gas Sample Site L Radial [facility] Blood Gas Specimen Type ART [facility] Blood Gas Vent Mode Not entered [facility] Oxygen Delivery Device BiPAP [facility] ART [facility] L Radial [facility] Not entered [facility] BiPAP [facility] Yes [facility] Blood Gas Notified [facility] 20 U/L <32 [facility] Phosphoruson 04-06-2025 Phosphate [Mass/Vol] 3.2 mg/dL Normal 2.7-4.5 [facility] Comment on above: Performed By: #### L 100.0100, L500.4050, L503.7505, L501.2300 ####[facility] [address] [place], [place], [address] RESPIRATORY PANEL MOLECULARo n 04-06-2025 RP PANEL Normal [facility] Comment on above: Performed By: #### M 100.638 ####[facility] [address] [place], [place], [address] Respiratory pathogens detect ion panel by molecular detection methodOrdered By: Orlando Maldonado on 04-06-2025 Respiratory pathogens DNA and RNA panel KEARA+probe (Resp) [facility] Screening total cholesterol/ high density lipoprotein (HDL) cholesterol ratioOrdered By: Ken iVeyra on 04-06-2025 Cholesterol.total/Choles terol in HDL [Mass ratio] 2.04 {ratio} [facility] Serum globulin measurementOr dered By: Orlando Maldonado on 04-06-2025 Globulin (S) [Mass/Vol] 2.7 g/dL 2.2-4.2 [facility] Serum or plasma C reactive p rotein measurement (mass/volume)Ordered By: Orlando Maldonado on 04-06-2025 CRP [Mass/Vol] 18.90 mg/L High 0.0-3.0 [facility] Serum or plasma alanine garza otransferase (ALT) measurementOrdered By: Orlando Maldonado on 04-06-2025 ALT [Catalytic activity/Vol] 41 U/L High <35 [facility] Serum or plasma albumin diallo urement (mass/volume)Ordered By: Orlando Maldonado on 04-06-2025 Albumin [Mass/Vol] 3.4 g/dL 3.4-4.8 [facility] Serum or plasma albumin/glob ulin mass ratioOrdered By: Orlando Maldonado on 04-06-2025 Albumin/Globulin [Mass ratio] 1.3 {ratio} 0.9-2.4 [facility] Serum or plasma alkaline pati sphatase measurementOrdered By: Orlando Maldonado on 04-06-2025 ALP [Catalytic activity/Vol] 53 U/L 35-104 [facility] Serum or plasma cholesterol in HDL measurement (mass/volume)Ordered By: Ken Vieyra on 04-06-2025 Cholesterol in HDL [Mass/Vol] 72 mg/dL >40 [facility] Comment on above: National Cholesterol Education Program (NCEP) guidelines:<40 mg/dL: Low HDL-cholesterol (major risk factor for CHD)>= 60 mg/dL: High HDL-cholesterol (negative risk factor for CHD)HDL-cholesterol is affected by a number of factors, e.g. smoking, exercise, hormones, sex and age. Serum or plasma cholesterol measurement (mass/volume)Ordered By: Ken Vieyra on 04-06-2025 Cholesterol [Mass/Vol] 147 mg/dL <201 [facility] Comment on above: Cholesterol level, D esirable <200 mg/dLBorderline high cholesterol 200-239 mg/dLHigh cholesterol >=240 mg/dLRecommendations of the NCEP Adult Treatment Panel for the following risk-cutoff thresholds for the [place] Bah[place] population. Total proteinOrdered By: Severo Maldonado on 04-06-2025 Protein [Mass/Vol] 6.1 g/dL 5.9-8.4 [facility] Triglycerides measurementOrd ered By: Ken Vieyra on 04-06-2025 Triglyceride [Mass/Vol] 71 mg/dL <[address] [facility] Comment on above: The drugs N-Acetylcy steine and Metamizole may falsely depress this assay. Normal range: <150 mg/dLBorderline High: 150-199 mg/dLHigh: 200-499 mg/dLVery High: >500 mg/dL Troponin T.cardiac [Mass/vol ume] in Serum or Plasma by High sensitivity methodOrdered By: Andi Ortiz on 04-06-2025 Troponin T.cardiac High sensitivity method [Mass/Vol] 12 ng/L <14 [facility] 12 Lead EKGon 04-05-2025 12 Lead EKG Normal [facility] Absolute lymphocyte countOrd ered By: Andi Ortiz on 04-05-2025 Lymphocytes Auto (Unsp spec) [#/Vol] 0.57 10*3/uL Low 0.83-4.51 [facility] Absolute neutrophil countOrd ered By: Andi Ortiz on 04-05-2025 Neutrophils (Bld) [#/Vol] 23.4 10*3/uL High 2.0-7.7 [facility] Anion gap in Serum or Plasma Ordered By: Andi Ortiz on 04-05-2025 Anion gap [Moles/Vol] 7 mmol/L 5-15 [facility] Automated lymphocyte count a s percentage of total leukocytesOrdered By: Andi Ortiz on 04-05-2025 Lymphocytes/100 WBC Auto (Unsp spec) 2.2 % Low 19-41 [facility] BUN/creatinine ratioOrdered By: Andi Ortiz on 04-05-2025 Urea nitrogen/Creatinine [Mass ratio] 29.9 mg/mg High 10- [facility] Basic Metabolic Profile (BMP )on 04-05-2025 BUN/CRE 29.9 RATIO High 10- [facility] Comment on above: Performed By: #### L 500.2500, L100.0100 ####[facility] [address] [place], [address] Calcium [Mass/Vol] 9.2 mg/dL Normal 7.6-11.0 [facility] Comment on above: Performed By: #### L 500.2500, L100.0100 ####[facility] [address] [place], [address] Chloride [Moles/Vol] 89 mmol/L Low 98-108 [facility] Comment on above: Performed By: #### L 500.2500, L100.0100 ####[facility] [address] [place], [address] CO2 [Moles/Vol] 42.2 mmol/L High 21.0-32.0 [facility] Comment on above: Performed By: #### L 500.2500, L100.0100 ####[facility] [address] [place], [address] Creatinine [Mass/Vol] 0.77 mg/dL Normal 0.70-1.20 [facility] Comment on above: Performed By: #### L 500.2500, L100.0100 ####[facility] [address] [place], [address] ECRCL 77.14 ml/min Normal 50-250 [facility] Comment on above: Performed By: #### L 500.2500, L100.0100 ####[facility] [address] [place], [address] GAP 7 Normal 5-15 [facility] Comment on above: Performed By: #### L 500.2500, L100.0100 ####[facility] [address] [place], [address] GFR/1.73 sq M.predicted among non-blacks MDRD (S/P/Bld) [Vol rate/Area] 82 mL/min/{1.73_m2} Normal >60 [facility] Comment on above: Result Comment: mL/m in/1.73m2 CKD-EPI Creatinine Equation (2020) Performed By: #### L 500.2500, L100.0100 ####[facility] [address] [place], [address] Glucose [Mass/Vol] 305 mg/dL High 70-99 [facility] Comment on above: Performed By: #### L 500.2500, L100.0100 ####[facility] [address] [place], [address] Potassium [Moles/Vol] 4.7 mmol/L Normal 3.3-5.1 [facility] Comment on above: Performed By: #### L 500.2500, L100.0100 ####[facility] [address] [place], [address] Sodium [Moles/Vol] 138 mmol/L Normal 133-145 [facility] Comment on above: Performed By: #### L 500.2500, L100.0100 ####[facility] [address] [place], [address] Urea nitrogen [Mass/Vol] 23 mg/dL High 4-19 [facility] Comment on above: Performed By: #### L 500.2500, L100.0100 ####[facility] [address] [place], [address] Basophil percentageOrdered B y: Andi Ortiz on 04-05-2025 Basophils/100 WBC (Bld) 0.2 % 0-[address] [facility] Blood cultureOrdered By: Skylar Ortiz on 04-05-2025 Bacteria identified Cx Nom (Bld) No growth in 5 days. [facility] Bacteria identified Cx Nom (Bld) No growth in 5 days. [facility] Blood manual differential co mment interpretation (narrative result)Ordered By: Andi Ortiz on 04-05-2025 Manual differential comment Eugene (Bld) [Interp] SCANNED [facility] Blood stomatocytes detection by light microscopyOrdered By: Andi Ortiz on 04-05-2025 Stomatocytes LM Ql (Bld) 2+ [facility] CBC W/Diff, Automatedon 03-26 Anisocytosis Ql (Bld) 1+ Normal [facility] Comment on above: Performed By: #### L 500.2500, L100.0100 ####[facility] [address] [place], [address] BASO STIPPLING RARE Normal [facility] Comment on above: Performed By: #### L 500.2500, L100.0100 ####[facility] [address] [place], [address] PLT EST ADEQUATE Normal ADEQ [facility] Comment on above: Performed By: #### L 500.2500, L100.0100 ####[facility] [address] [place], [address] SMEAR COMMENT SCANNED Normal [facility] Comment on above: Performed By: #### L 500.2500, L100.0100 ####[facility] [address] [place], [address] STOMATOCYTE 2+ Normal [facility] Comment on above: Performed By: #### L 500.2500, L100.0100 ####[facility] [address] [place], [address] CT Chest, Abd, Pelvis WO Con ton 04-05-2025 CT Chest, Abd, Pelvis WO Cont Normal [facility] Carbon dioxide, total [Moles /volume] in Central venous bloodOrdered By: Andi Ortiz on 04-05-2025 CO2 [Moles/Vol] 42.2 mmol/L High 21.0-32.0 [facility] Chest 1 View (Portable)on Chest 1 View (Portable) Normal [facility] Chloride assayOrdered By: Holland Ortiz on 04-05-2025 Chloride [Moles/Vol] 89 mmol/L Low 98-108 [facility] Emergency Department Summary on 04-05-2025 Emergency Department Summary Normal [facility] Eosinophil percentageOrdered By: Andi Ortiz on 04-05-2025 Eosinophils/100 WBC (Bld) 0.0 % 0-5 [facility] Erythrocyte basophilic stipp ling detectionOrdered By: Andi Ortiz on 04-05-2025 Basophilic stippling LM Ql (Bld) RARE [facility] Erythrocyte distribution wid th ratioOrdered By: Andisoraida Ortiz on 04-05-2025 Erythrocyte distribution width (RBC) [Ratio] 15.1 % High 11.6-14.6 [facility] Erythrocyte distribution wid th standard deviationOrdered By: Eleanor Slater [facility] on 04-05-2025 Erythrocyte distribution width (RBC) [Ratio] 53.1 fl High 35.1-43.9 [facility] Glomerular filtration rate ( GFR) estimation/1.73 sq m using serum, plasma, or whole bOrdered By: Andisoraida Ortiz on 04-05-2025 GFR/1.73 sq M.predicted among non-blacks MDRD (S/P/Bld) [Vol rate/Area] 82 mL/min/{1.73_m2} >60 [facility] Comment on above: mL/min/1.73m2 CKD-EP I Creatinine Equation (2020) H AND P Exam - Hospitaliston 04-05-2025 H&P Exam - Hospitalist Normal [facility] Hematocrit Auto (Bld) [Volum e fraction]Ordered By: Andisoraida Ortiz on 04-05-2025 Hematocrit (Bld) [Volume fraction] 38.9 % 37-47 [facility] Hemoglobin measurementOrdere d By: Andisoraida Ortiz on 04-05-2025 Hemoglobin (Bld) [Mass/Vol] 11.7 g/dL Low 12.0-15.0 [facility] Immature granulocytes/100 WB C Auto (Bld)Ordered By: Andisoraida Ortiz on 04-05-2025 Immature granulocytes/100 WBC (Bld) 1.200 % High 0.0-0.9 [facility] Comment on above: IG% - Immature Granu locytes (promyelocytes, myelocytes and metamyelocytes) > 1% indicates that a LEFT SHIFT is Present. L499.0042on 04-05-2025 Trop T High Sen 8 ng/L Normal <=14 [facility] Comment on above: Performed By: #### L 499.0042 ####[facility] [address] [place], [address] L501.4021on 04-05-2025 Trop T High Sen 10 ng/L Normal <=14 [facility] Comment on above: Performed By: #### L 503.7505, L501.4021 ####[facility] [address] [place], [place], [address] L503.7505on 04-05-2025 Natriuretic peptide B (Bld) [Mass/Vol] 1349 pg/mL High <=900 [facility] Comment on above: Result Comment: Hear t Failure Unlikely: < 300 pg/mLHeart Failure Likely< 50 Years: > 450 pg/mL50-75 Years: > 900 pg/mL>75 Years: > 1800 pg/mL Performed By: #### L 503.7505, L501.4021 ####[facility] [address] [place], [place], [id number] Laboratory - Hematology and Cell countsOrdered By: Andi Ortiz on 04-05-2025 Anisocytosis Ql (Bld) 1+ [facility] Lactic Acidon 04-05-2025 Lactate [Moles/Vol] 2.5 mmol/L Invalid Interpretation Code 0.0-2.0 [facility] Comment on above: Order Comment: Y Result Comment: Crit ical Result(s) Called at: 2213 by:??KAYLEE ROLON Results read back by same. Performed By: #### L 503.6005 ####[facility] [address] [place], [place], [id number] Lactic acid measurementOrder ed By: Andi Ortiz on 04-05-2025 Lactate [Moles/Vol] 2.5 mmol/L High 0.0-2.0 [facility] Comment on above: Critical Result(s) C alled at: 4 by: KAYLEE CLEMENTS Results read back by same. MCV (mean corpuscular volume ) determinationOrdered By: Andi Ortiz on 04-05-2025 MCV (RBC) [Entitic vol] 96.3 fL 81-[address] [facility] Magnesium measurement (mass/ volume)Ordered By: Orlando Maldonado on 04-05-2025 Magnesium (Unsp spec) [Mass/Vol] 1.9 mg/dL 1.5-2.2 [facility] Mean corpuscular hemoglobin (MCH) determinationOrdered By: Andi Ortiz on 04-05-2025 MCH (RBC) [Entitic mass] 29.0 pg 27.0-32.0 [facility] Mean corpuscular hemoglobin concentration (MCHC) determinationOrdered By: Andi Ortiz on 04-05-2025 MCHC (RBC) [Mass/Vol] 30.1 g/dL Low 32-36 [facility] Mean platelet volume determi nationOrdered By: Andi Ortiz on 04-05-2025 Platelet mean volume (Bld) [Entitic vol] 9.8 fL 6.2-12.0 [facility] Monocyte percentageOrdered B y: Andi Ortiz on 04-05-2025 Monocytes/100 WBC (Bld) 4.1 % 0-[address] [facility] Natriuretic peptide.B prohor inessa N-Terminal [Mass/volume] in Serum or PlasmaOrdered By: Andi Ortiz on 04-05-2025 Natriuretic peptide.B prohormone N-Terminal [Mass/Vol] 1349 pg/mL High <900 [facility] Comment on above: Heart Failure Unlike ly: < 300 pg/mLHeart Failure Likely< 50 Years: > 450 pg/mL50-75 Years: > 900 pg/mL>75 Years: > 1800 pg/mL Neutrophil percentageOrdered By: Andi Ortiz on 04-05-2025 Neutrophils/100 WBC (Bld) 92.3 % High 47-70 [facility] No Panel InformationOrdered By: Andi Ortiz on 04-05-2025 1+ [facility] Nucleated red blood cell per centageOrdered By: Andi Ortzi on 04-05-2025 Nucleated RBC/100 WBC (Bld) [Ratio] 0 % 0-5 [facility] Platelet countOrdered By: Holland Ortiz on 04-05-2025 Platelets (Bld) [#/Vol] 367 10*3/uL 150-450 [facility] Platelet estimateOrdered By: Andi Ortiz on 04-05-2025 Platelets LM Ql (Bld) ADEQUATE ADEQ [facility] Potassium measurement (mass/ volume)Ordered By: Andi Ortiz on 04-05-2025 Potassium (Unsp spec) [Mass/Vol] 4.7 mmol/L 3.3-5.1 [facility] RBC Auto (Bld) [#/Vol]Ordere d By: Andi Ortiz on 04-05-2025 RBC (Bld) [#/Vol] 4.04 10*6/uL Low 4.2-5.4 [facility] Serum creatinine measurement (mass/volume)Ordered By: Andi Ortiz on 04-05-2025 Creatinine [Mass/Vol] 0.77 mg/dL 0.70-1.20 [facility] Serum glucose measurement (m ass/volume)Ordered By: Andi Ortiz on 04-05-2025 Glucose [Mass/Vol] 305 mg/dL High 70-99 [facility] Serum or plasma calcium diallo urement (mass/volume)Ordered By: Andi Ortiz on 04-05-2025 Calcium [Mass/Vol] 9.2 mg/dL 7.6-11.0 [facility] Serum or plasma urea nitroge n measurement (mass/volume)Ordered By: Andi Ortiz on 04-05-2025 Urea nitrogen [Mass/Vol] 23 mg/dL High 4-19 [facility] Sodium levelOrdered By: Brooks Ortiz on 04-05-2025 Sodium [Moles/Vol] 138 mmol/L 133-145 [facility] Troponin T.cardiac [Mass/vol ume] in Serum or Plasma by High sensitivity methodOrdered By: Andi Ortiz on 04-05-2025 Troponin T.cardiac High sensitivity method [Mass/Vol] 8 ng/L <14 [facility] Troponin T.cardiac High sensitivity method [Mass/Vol] 10 ng/L <14 [facility] Comment on above: Delta: 19 on White blood cell (WBC) count Ordered By: Andi Ortiz on 04-05-2025 WBC (Bld) [#/Vol] 25.4 10*3/uL High 4.4-11.0 [facility] Anion gap in Serum or Plasma Ordered By: Becca Dillard on 04-03-2025 Anion gap [Moles/Vol] 6 mmol/L 5- [facility] BUN/creatinine ratioOrdered By: Becca Dillard on 04-03-2025 Urea nitrogen/Creatinine [Mass ratio] 30.0 mg/mg High - [facility] Basic Metabolic Profile (BMP )on 04-03-2025 BUN/CRE 30.0 RATIO High - [facility] Comment on above: Performed By: #### L 500.2500 ####[facility] [address] [place], [address] Calcium [Mass/Vol] 9.2 mg/dL Normal 7.6-11.0 [facility] Comment on above: Performed By: #### L 500.2500 ####[facility] [address] [place], [address] Chloride [Moles/Vol] 90 mmol/L Low 98-108 [facility] Comment on above: Performed By: #### L 500.2500 ####[facility] [address] [place], [address] CO2 [Moles/Vol] 41.7 mmol/L High 21.0-32.0 [facility] Comment on above: Performed By: #### L 500.2500 ####[facility] [address] [place], [address] Creatinine [Mass/Vol] 0.78 mg/dL Normal 0.70-1.20 [facility] Comment on above: Performed By: #### L 500.2500 ####[facility] [address] [place], [address] GAP 6 Normal - [facility] Comment on above: Performed By: #### L 500.2500 ####[facility] [address] [place], [address] GFR/1.73 sq M.predicted among non-blacks MDRD (S/P/Bld) [Vol rate/Area] 81 mL/min/{1.73_m2} Normal >60 [facility] Comment on above: Result Comment: mL/m in/1.73m2 CKD-EPI Creatinine Equation (2020) Performed By: #### L 500.2500 ####[facility] [address] [place], [address] Glucose [Mass/Vol] 237 mg/dL High 70-99 [facility] Comment on above: Performed By: #### L 500.2500 ####[facility] [address] [place], [address] Potassium [Moles/Vol] 5.1 mmol/L Normal 3.3-5.1 [facility] Comment on above: Result Comment: Hemo lysis present, Results??could be affected.?? Performed By: #### L 500.2500 ####[facility] [address] [place], [address] Sodium [Moles/Vol] 137 mmol/L Normal 133-145 [facility] Comment on above: Performed By: #### L 500.2500 ####[facility] [address] [place], [address] Urea nitrogen [Mass/Vol] 23 mg/dL High 4-19 [facility] Comment on above: Performed By: #### L 500.2500 ####[facility] [address] [place], [address] Carbon dioxide, total [Moles /volume] in Central venous bloodOrdered By: Becca Dillard on 04-03-2025 CO2 [Moles/Vol] 41.7 mmol/L High 21.0-32.0 [facility] Chloride assayOrdered By: Sergio Dillard on 04-03-2025 Chloride [Moles/Vol] 90 mmol/L Low 98-108 [facility] Glomerular filtration rate ( GFR) estimation/1.73 sq m using serum, plasma, or whole bOrdered By: Becca Dillard on 04-03-2025 GFR/1.73 sq M.predicted among non-blacks MDRD (S/P/Bld) [Vol rate/Area] 81 mL/min/{1.73_m2} >60 [facility] Comment on above: mL/min/1.73m2 CKD-EP I Creatinine Equation (2020) Potassium measurement (mass/ volume)Ordered By: Becca Dillard on 04-03-2025 Potassium (Unsp spec) [Mass/Vol] 5.1 mmol/L 3.3-5.1 [facility] Comment on above: Hemolysis present, R esults could be affected. Serum creatinine measurement (mass/volume)Ordered By: Becca Dillard on 04-03-2025 Creatinine [Mass/Vol] 0.78 mg/dL 0.70-1.20 [facility] Serum glucose measurement (m ass/volume)Ordered By: Becca Dillard on 04-03-2025 Glucose [Mass/Vol] 237 mg/dL High 70-99 [facility] Serum or plasma calcium diallo urement (mass/volume)Ordered By: Becca Dillard on 04-03-2025 Calcium [Mass/Vol] 9.2 mg/dL 7.6-11.0 [facility] Serum or plasma urea nitroge n measurement (mass/volume)Ordered By: Becca Dillard on 04-03-2025 Urea nitrogen [Mass/Vol] 23 mg/dL High - [facility] Sodium levelOrdered By: Faith Dillard on 04-03-2025 Sodium [Moles/Vol] 137 mmol/L 133-145 [facility] Basic Metabolic Profile (BMP )on 03-31-2025 BUN Normal - [facility] Comment on above: Result Comment: Canc elled via OM: Order cancelled - Patient discharged Performed By: #### L 100.0100, L500.2500 ####[facility] [address] [place], [address] BUN/CRE Normal 10-20 [facility] Comment on above: Result Comment: Canc elled via OM: Order cancelled - Patient discharged Performed By: #### L 100.0100, L500.2500 ####[facility] [address] [place], [address] Calcium Normal 7.6-11.0 [facility] Comment on above: Result Comment: Canc elled via OM: Order cancelled - Patient discharged Performed By: #### L 100.0100, L500.2500 ####[facility] [address] [place], [address] CL Normal 98-108 [facility] Comment on above: Result Comment: Canc elled via OM: Order cancelled - Patient discharged Performed By: #### L 100.0100, L500.2500 ####[facility] [address] [place], [address] CO2 Normal 21.0-32.0 [facility] Comment on above: Result Comment: Canc elled via OM: Order cancelled - Patient discharged Performed By: #### L 100.0100, L500.2500 ####[facility] [address] [place], [address] CREAT,SERUM Normal 0.70-1.20 [facility] Comment on above: Result Comment: Canc elled via OM: Order cancelled - Patient discharged Performed By: #### L 100.0100, L500.2500 ####[facility] [address] [place], [address] eGFR Normal >60 [facility] Comment on above: Result Comment: Canc elled via OM: Order cancelled - Patient discharged Performed By: #### L 100.0100, L500.2500 ####[facility] [address] [place], [address] GAP Normal 5-15 [facility] Comment on above: Result Comment: Canc elled via OM: Order cancelled - Patient discharged Performed By: #### L 100.0100, L500.2500 ####[facility] [address] [place], [address] GLU Normal 70-99 [facility] Comment on above: Result Comment: Canc elled via OM: Order cancelled - Patient discharged Performed By: #### L 100.0100, L500.2500 ####[facility] [address] [place], [address] Potassium Normal 3.3-5.1 [facility] Comment on above: Result Comment: Canc elled via OM: Order cancelled - Patient discharged Performed By: #### L 100.0100, L500.2500 ####[facility] [address] [place], [address] Basic Metabolic Profile (BMP) Normal 133-145 [facility] Comment on above: Result Comment: Canc elled via OM: Order cancelled - Patient discharged Performed By: #### L 100.0100, L500.2500 ####[facility] [address] [place], [address] CBC W/Diff, Automatedon 05-0 6-2024 Absolute Neut Normal 2.0-7.7 [facility] Comment on above: Result Comment: Canc elled via OM: Order cancelled - Patient discharged Performed By: #### L 100.0100, L500.2500 ####[facility] [address] [place], [address] HCT Normal 37-47 [facility] Comment on above: Result Comment: Canc elled via OM: Order cancelled - Patient discharged Performed By: #### L 100.0100, L500.2500 ####[facility] [address] [place], [address] HGB Normal 12.0-15.0 [facility] Comment on above: Result Comment: Canc elled via OM: Order cancelled - Patient discharged Performed By: #### L 100.0100, L500.2500 ####[facility] [address] [place], [address] MCH Normal 27.0-32.0 [facility] Comment on above: Result Comment: Canc elled via OM: Order cancelled - Patient discharged Performed By: #### L 100.0100, L500.2500 ####[facility] [address] [place], [address] MCHC Normal 32-36 [facility] Comment on above: Result Comment: Canc elled via OM: Order cancelled - Patient discharged Performed By: #### L 100.0100, L500.2500 ####[facility] [address] [place], [address] MCV Normal 81-99 [facility] Comment on above: Result Comment: Canc elled via OM: Order cancelled - Patient discharged Performed By: #### L 100.0100, L500.2500 ####[facility] [address] [place], [address] NEUT% Normal 47-70 [facility] Comment on above: Result Comment: Canc elled via OM: Order cancelled - Patient discharged Performed By: #### L 100.0100, L500.2500 ####[facility] [address] [place], [address] PLT Normal 150-450 [facility] Comment on above: Result Comment: Canc elled via OM: Order cancelled - Patient discharged Performed By: #### L 100.0100, L500.2500 ####[facility] [address] [place], [address] RBC Normal 4.2-5.4 [facility] Comment on above: Result Comment: Canc elled via OM: Order cancelled - Patient discharged Performed By: #### L 100.0100, L500.2500 ####[facility] [address] [place], [address] RDW CV Normal 11.6-14.6 [facility] Comment on above: Result Comment: Canc elled via OM: Order cancelled - Patient discharged Performed By: #### L 100.0100, L500.2500 ####[facility] [address] [place], [address] RDW SD Normal 35.1-43.9 [facility] Comment on above: Result Comment: Canc elled via OM: Order cancelled - Patient discharged Performed By: #### L 100.0100, L500.2500 ####[facility] [address] [place], [address] WBC Normal 4.4-11.0 [facility] Comment on above: Result Comment: Canc elled via OM: Order cancelled - Patient discharged Performed By: #### L 100.0100, L500.2500 ####[facility] [address] [place], [address] International normalized rat io (INR) calculationOrdered By: Genia Dona on 03-31-2025 INR Coag (Bld) [Relative time] 1.2 {INR} [facility] Prothrombin Time w/INRon INR Coag (PPP) [Relative time] 1.2 {INR} Normal [facility] Comment on above: Performed By: #### L 300.3900 ####[facility] [address] [place], [address] PT Coag (PPP) [Time] 15.8 s High 11.7-14.9 [facility] Comment on above: Performed By: #### L 300.3900 ####[facility] [address] [place], [address] Prothrombin timeOrdered By: Arion Dona on 03-31-2025 PT Coag (PPP) [Time] 15.8 s High 11.7-14.9 [facility] Basic Metabolic Profile (BMP )on 03-30-2025 BUN Normal 4-19 [facility] Comment on above: Result Comment: Canc elled via OM: Order cancelled - Patient discharged Performed By: #### L 100.0100, L500.2500 ####[facility] [address] [place], [address] BUN/CRE Normal 10-20 [facility] Comment on above: Result Comment: Canc elled via OM: Order cancelled - Patient discharged Performed By: #### L 100.0100, L500.2500 ####[facility] [address] [place], [address] Calcium Normal 7.6-11.0 [facility] Comment on above: Result Comment: Canc elled via OM: Order cancelled - Patient discharged Performed By: #### L 100.0100, L500.2500 ####[facility] [address] [place], [address] CL Normal 98-108 [facility] Comment on above: Result Comment: Canc elled via OM: Order cancelled - Patient discharged Performed By: #### L 100.0100, L500.2500 ####[facility] [address] [place], [address] CO2 Normal 21.0-32.0 [facility] Comment on above: Result Comment: Canc elled via OM: Order cancelled - Patient discharged Performed By: #### L 100.0100, L500.2500 ####[facility] [address] [place], [address] CREAT,SERUM Normal 0.70-1.20 [facility] Comment on above: Result Comment: Canc elled via OM: Order cancelled - Patient discharged Performed By: #### L 100.0100, L500.2500 ####[facility] [address] [place], [address] eGFR Normal >60 [facility] Comment on above: Result Comment: Canc elled via OM: Order cancelled - Patient discharged Performed By: #### L 100.0100, L500.2500 ####[facility] [address] [place], [address] GAP Normal 5-15 [facility] Comment on above: Result Comment: Canc elled via OM: Order cancelled - Patient discharged Performed By: #### L 100.0100, L500.2500 ####[facility] [address] [place], [address] GLU Normal 70-99 [facility] Comment on above: Result Comment: Canc elled via OM: Order cancelled - Patient discharged Performed By: #### L 100.0100, L500.2500 ####[facility] [address] [place], [address] Potassium Normal 3.3-5.1 [facility] Comment on above: Result Comment: Canc elled via OM: Order cancelled - Patient discharged Performed By: #### L 100.0100, L500.2500 ####[facility] [address] [place], [address] Basic Metabolic Profile (BMP) Normal 133-145 [facility] Comment on above: Result Comment: Canc elled via OM: Order cancelled - Patient discharged Performed By: #### L 100.0100, L500.2500 ####[facility] [address] [place], [address] CBC W/Diff, Automatedon 05-0 5-2024 Absolute Neut Normal 2.0-7.7 [facility] Comment on above: Result Comment: Canc elled via OM: Order cancelled - Patient discharged Performed By: #### L 100.0100, L500.2500 ####[facility] [address] [place], [address] HCT Normal 37-47 [facility] Comment on above: Result Comment: Canc elled via OM: Order cancelled - Patient discharged Performed By: #### L 100.0100, L500.2500 ####[facility] [address] [place], [address] HGB Normal 12.0-15.0 [facility] Comment on above: Result Comment: Canc elled via OM: Order cancelled - Patient discharged Performed By: #### L 100.0100, L500.2500 ####[facility] [address] [place], [address] MCH Normal 27.0-32.0 [facility] Comment on above: Result Comment: Canc elled via OM: Order cancelled - Patient discharged Performed By: #### L 100.0100, L500.2500 ####[facility] [address] [place], [address] MCHC Normal 32-36 [facility] Comment on above: Result Comment: Canc elled via OM: Order cancelled - Patient discharged Performed By: #### L 100.0100, L500.2500 ####[facility] [address] [place], [address] MCV Normal 81-99 [facility] Comment on above: Result Comment: Canc elled via OM: Order cancelled - Patient discharged Performed By: #### L 100.0100, L500.2500 ####[facility] [address] [place], [address] NEUT% Normal 47-70 [facility] Comment on above: Result Comment: Canc elled via OM: Order cancelled - Patient discharged Performed By: #### L 100.0100, L500.2500 ####[facility] [address] [place], [address] PLT Normal 150-450 [facility] Comment on above: Result Comment: Canc elled via OM: Order cancelled - Patient discharged Performed By: #### L 100.0100, L500.2500 ####[facility] [address] [place], [address] RBC Normal 4.2-5.4 [facility] Comment on above: Result Comment: Canc elled via OM: Order cancelled - Patient discharged Performed By: #### L 100.0100, L500.2500 ####[facility] [address] [place], [address] RDW CV Normal 11.6-14.6 [facility] Comment on above: Result Comment: Canc elled via OM: Order cancelled - Patient discharged Performed By: #### L 100.0100, L500.2500 ####[facility] [address] [place], [address] RDW SD Normal 35.1-43.9 [facility] Comment on above: Result Comment: Canc elled via OM: Order cancelled - Patient discharged Performed By: #### L 100.0100, L500.2500 ####[facility] [address] [place], [address] WBC Normal 4.4-11.0 [facility] Comment on above: Result Comment: Canc elled via OM: Order cancelled - Patient discharged Performed By: #### L 100.0100, L500.2500 ####[facility] [address] [place], [address] Chest PA and Lateralon 03-30 Chest PA and Lateral Normal [facility] Basic Metabolic Profile (BMP )on 03-29-2025 BUN Normal 4-19 [facility] Comment on above: Performed By: #### L 500.2500, L100.0100 ####[facility] [address] [place], [address] BUN/CRE Normal 10-20 [facility] Comment on above: Performed By: #### L 500.2500, L100.0100 ####[facility] [address] [place], [address] Calcium Normal 7.6-11.0 [facility] Comment on above: Performed By: #### L 500.2500, L100.0100 ####[facility] [address] [place], [address] CL Normal 98-108 [facility] Comment on above: Performed By: #### L 500.2500, L100.0100 ####[facility] [address] [place], [address] CO2 Normal 21.0-32.0 [facility] Comment on above: Performed By: #### L 500.2500, L100.0100 ####[facility] [address] [place], [address] CREAT,SERUM Normal 0.70-1.20 [facility] Comment on above: Performed By: #### L 500.2500, L100.0100 ####[facility] [address] [place], [address] eGFR Normal >60 [facility] Comment on above: Performed By: #### L 500.2500, L100.0100 ####[facility] [address] [place], [address] GAP Normal 5-15 [facility] Comment on above: Performed By: #### L 500.2500, L100.0100 ####[facility] [address] [place], [address] GLU Normal 70-99 [facility] Comment on above: Performed By: #### L 500.2500, L100.0100 ####[facility] [address] [place], [address] Potassium Normal 3.3-5.1 [facility] Comment on above: Performed By: #### L 500.2500, L100.0100 ####[facility] [address] [place], [address] Basic Metabolic Profile (BMP) Normal 133-145 [facility] Comment on above: Performed By: #### L 500.2500, L100.0100 ####[facility] [address] [place], [address] CBC W/Diff, Automatedon 05-0 -2024 Absolute Neut Normal 2.0-7.7 [facility] Comment on above: Result Comment: Canc elled via OM: Order cancelled - Patient discharged Performed By: #### L 500.2500, L100.0100 ####[facility] [address] [place], [address] HCT Normal 37-47 [facility] Comment on above: Result Comment: Canc elled via OM: Order cancelled - Patient discharged Performed By: #### L 500.2500, L100.0100 ####[facility] [address] [place], [address] HGB Normal 12.0-15.0 [facility] Comment on above: Result Comment: Canc elled via OM: Order cancelled - Patient discharged Performed By: #### L 500.2500, L100.0100 ####[facility] [address] [place], [address] MCH Normal 27.0-32.0 [facility] Comment on above: Result Comment: Canc elled via OM: Order cancelled - Patient discharged Performed By: #### L 500.2500, L100.0100 ####[facility] [address] [place], [address] MCHC Normal 32-36 [facility] Comment on above: Result Comment: Canc elled via OM: Order cancelled - Patient discharged Performed By: #### L 500.2500, L100.0100 ####[facility] [address] [place], [address] MCV Normal 81-99 [facility] Comment on above: Result Comment: Canc elled via OM: Order cancelled - Patient discharged Performed By: #### L 500.2500, L100.0100 ####[facility] [address] [place], [address] NEUT% Normal 47-70 [facility] Comment on above: Result Comment: Canc elled via OM: Order cancelled - Patient discharged Performed By: #### L 500.2500, L100.0100 ####[facility] [address] [place], [address] PLT Normal 150-450 [facility] Comment on above: Result Comment: Canc elled via OM: Order cancelled - Patient discharged Performed By: #### L 500.2500, L100.0100 ####[facility] [address] [place], [address] RBC Normal 4.2-5.4 [facility] Comment on above: Result Comment: Canc elled via OM: Order cancelled - Patient discharged Performed By: #### L 500.2500, L100.0100 ####[facility] [address] [place], [address] RDW CV Normal 11.6-14.6 [facility] Comment on above: Result Comment: Canc elled via OM: Order cancelled - Patient discharged Performed By: #### L 500.2500, L100.0100 ####[facility] [address] [place], [address] RDW SD Normal 35.1-43.9 [facility] Comment on above: Result Comment: Canc elled via OM: Order cancelled - Patient discharged Performed By: #### L 500.2500, L100.0100 ####[facility] [address] [place], [address] WBC Normal 4.4-11.0 [facility] Comment on above: Result Comment: Canc elled via OM: Order cancelled - Patient discharged Performed By: #### L 500.2500, L100.0100 ####[facility] [address] [place], [address] Basic Metabolic Profile (BMP )on 03-28-2025 BUN Normal 4-19 [facility] Comment on above: Result Comment: Canc elled via OM: Order cancelled - Patient discharged Performed By: #### L 500.2500, L100.0100 ####[facility] [address] [place], [address] BUN/CRE Normal 10-20 [facility] Comment on above: Result Comment: Canc elled via OM: Order cancelled - Patient discharged Performed By: #### L 500.2500, L100.0100 ####[facility] [address] [place], [address] Calcium Normal 7.6-11.0 [facility] Comment on above: Result Comment: Canc elled via OM: Order cancelled - Patient discharged Performed By: #### L 500.2500, L100.0100 ####[facility] [address] [place], [address] CL Normal 98-108 [facility] Comment on above: Result Comment: Canc elled via OM: Order cancelled - Patient discharged Performed By: #### L 500.2500, L100.0100 ####[facility] [address] [place], [address] CO2 Normal 21.0-32.0 [facility] Comment on above: Result Comment: Canc elled via OM: Order cancelled - Patient discharged Performed By: #### L 500.2500, L100.0100 ####[facility] [address] [place], [address] CREAT,SERUM Normal 0.70-1.20 [facility] Comment on above: Result Comment: Canc elled via OM: Order cancelled - Patient discharged Performed By: #### L 500.2500, L100.0100 ####[facility] [address] [place], [address] eGFR Normal >60 [facility] Comment on above: Result Comment: Canc elled via OM: Order cancelled - Patient discharged Performed By: #### L 500.2500, L100.0100 ####[facility] [address] [place], [address] GAP Normal 5-15 [facility] Comment on above: Result Comment: Canc elled via OM: Order cancelled - Patient discharged Performed By: #### L 500.2500, L100.0100 ####[facility] [address] [place], [address] GLU Normal 70-99 [facility] Comment on above: Result Comment: Canc elled via OM: Order cancelled - Patient discharged Performed By: #### L 500.2500, L100.0100 ####[facility] [address] [place], [address] Potassium Normal 3.3-5.1 [facility] Comment on above: Result Comment: Canc elled via OM: Order cancelled - Patient discharged Performed By: #### L 500.2500, L100.0100 ####[facility] [address] [place], [address] Basic Metabolic Profile (BMP) Normal 133-145 [facility] Comment on above: Result Comment: Canc elled via OM: Order cancelled - Patient discharged Performed By: #### L 500.2500, L100.0100 ####[facility] [address] [place], [address] CBC W/Diff, Automatedon 05-0 Absolute Neut Normal 2.0-7.7 [facility] Comment on above: Result Comment: Canc elled via OM: Order cancelled - Patient discharged Performed By: #### L 500.2500, L100.0100 ####[facility] [address] [place], [address] HCT Normal 37-47 [facility] Comment on above: Result Comment: Canc elled via OM: Order cancelled - Patient discharged Performed By: #### L 500.2500, L100.0100 ####[facility] [address] [place], [address] HGB Normal 12.0-15.0 [facility] Comment on above: Result Comment: Canc elled via OM: Order cancelled - Patient discharged Performed By: #### L 500.2500, L100.0100 ####[facility] [address] [place], [address] MCH Normal 27.0-32.0 [facility] Comment on above: Result Comment: Canc elled via OM: Order cancelled - Patient discharged Performed By: #### L 500.2500, L100.0100 ####[facility] [address] [place], [address] MCHC Normal 32-36 [facility] Comment on above: Result Comment: Canc elled via OM: Order cancelled - Patient discharged Performed By: #### L 500.2500, L100.0100 ####[facility] [address] [place], [address] MCV Normal 81-99 [facility] Comment on above: Result Comment: Canc elled via OM: Order cancelled - Patient discharged Performed By: #### L 500.2500, L100.0100 ####[facility] [address] [place], [address] NEUT% Normal 47-70 [facility] Comment on above: Result Comment: Canc elled via OM: Order cancelled - Patient discharged Performed By: #### L 500.2500, L100.0100 ####[facility] [address] [place], [address] PLT Normal 150-450 [facility] Comment on above: Result Comment: Canc elled via OM: Order cancelled - Patient discharged Performed By: #### L 500.2500, L100.0100 ####[facility] [address] [place], [address] RBC Normal 4.2-5.4 [facility] Comment on above: Result Comment: Canc elled via OM: Order cancelled - Patient discharged Performed By: #### L 500.2500, L100.0100 ####[facility] [address] [place], [address] RDW CV Normal 11.6-14.6 [facility] Comment on above: Result Comment: Canc elled via OM: Order cancelled - Patient discharged Performed By: #### L 500.2500, L100.0100 ####[facility] [address] [place], [address] RDW SD Normal 35.1-43.9 [facility] Comment on above: Result Comment: Canc elled via OM: Order cancelled - Patient discharged Performed By: #### L 500.2500, L100.0100 ####[facility] [address] [place], [address] WBC Normal 4.4-11.0 [facility] Comment on above: Result Comment: Canc elled via OM: Order cancelled - Patient discharged Performed By: #### L 500.2500, L100.0100 ####[facility] [address] [place], [address] Basic Metabolic Profile (BMP )on 03-27-2025 BUN Normal 4-19 [facility] Comment on above: Result Comment: Canc elled via OM: Order cancelled - Patient discharged Performed By: #### L 500.2500, L100.0100 ####[facility] [address] [place], [address] BUN/CRE Normal 10-20 [facility] Comment on above: Result Comment: Canc elled via OM: Order cancelled - Patient discharged Performed By: #### L 500.2500, L100.0100 ####[facility] [address] [place], [address] Calcium Normal 7.6-11.0 [facility] Comment on above: Result Comment: Canc elled via OM: Order cancelled - Patient discharged Performed By: #### L 500.2500, L100.0100 ####[facility] [address] [place], [address] CL Normal 98-108 [facility] Comment on above: Result Comment: Canc elled via OM: Order cancelled - Patient discharged Performed By: #### L 500.2500, L100.0100 ####[facility] [address] [place], [address] CO2 Normal 21.0-32.0 [facility] Comment on above: Result Comment: Canc elled via OM: Order cancelled - Patient discharged Performed By: #### L 500.2500, L100.0100 ####[facility] [address] [place], [address] CREAT,SERUM Normal 0.70-1.20 [facility] Comment on above: Result Comment: Canc elled via OM: Order cancelled - Patient discharged Performed By: #### L 500.2500, L100.0100 ####[facility] [address] [place], [address] eGFR Normal >60 [facility] Comment on above: Result Comment: Canc elled via OM: Order cancelled - Patient discharged Performed By: #### L 500.2500, L100.0100 ####[facility] [address] [place], [address] GAP Normal 5-15 [facility] Comment on above: Result Comment: Canc elled via OM: Order cancelled - Patient discharged Performed By: #### L 500.2500, L100.0100 ####[facility] [address] [place], [address] GLU Normal 70-99 [facility] Comment on above: Result Comment: Canc elled via OM: Order cancelled - Patient discharged Performed By: #### L 500.2500, L100.0100 ####[facility] [address] [place], [address] Potassium Normal 3.3-5.1 [facility] Comment on above: Result Comment: Canc elled via OM: Order cancelled - Patient discharged Performed By: #### L 500.2500, L100.0100 ####[facility] [address] [place], [address] Basic Metabolic Profile (BMP) Normal 133-145 [facility] Comment on above: Result Comment: Canc elled via OM: Order cancelled - Patient discharged Performed By: #### L 500.2500, L100.0100 ####[facility] [address] [place], [address] CBC W/Diff, Automatedon 05-0 -2024 Absolute Neut Normal 2.0-7.7 [facility] Comment on above: Result Comment: Canc elled via OM: Order cancelled - Patient discharged Performed By: #### L 500.2500, L100.0100 ####[facility] [address] [place], [address] HCT Normal 37-47 [facility] Comment on above: Result Comment: Canc elled via OM: Order cancelled - Patient discharged Performed By: #### L 500.2500, L100.0100 ####[facility] [address] [place], [address] HGB Normal 12.0-15.0 [facility] Comment on above: Result Comment: Canc elled via OM: Order cancelled - Patient discharged Performed By: #### L 500.2500, L100.0100 ####[facility] [address] [place], [address] MCH Normal 27.0-32.0 [facility] Comment on above: Result Comment: Canc elled via OM: Order cancelled - Patient discharged Performed By: #### L 500.2500, L100.0100 ####[facility] [address] [place], [address] MCHC Normal 32-36 [facility] Comment on above: Result Comment: Canc elled via OM: Order cancelled - Patient discharged Performed By: #### L 500.2500, L100.0100 ####[facility] [address] [place], [address] MCV Normal 81-99 [facility] Comment on above: Result Comment: Canc elled via OM: Order cancelled - Patient discharged Performed By: #### L 500.2500, L100.0100 ####[facility] [address] [place], [address] NEUT% Normal 47-70 [facility] Comment on above: Result Comment: Canc elled via OM: Order cancelled - Patient discharged Performed By: #### L 500.2500, L100.0100 ####[facility] [address] [place], [address] PLT Normal 150-450 [facility] Comment on above: Result Comment: Canc elled via OM: Order cancelled - Patient discharged Performed By: #### L 500.2500, L100.0100 ####[facility] [address] [place], [address] RBC Normal 4.2-5.4 [facility] Comment on above: Result Comment: Canc elled via OM: Order cancelled - Patient discharged Performed By: #### L 500.2500, L100.0100 ####[facility] [address] [place], [address] RDW CV Normal 11.6-14.6 [facility] Comment on above: Result Comment: Canc elled via OM: Order cancelled - Patient discharged Performed By: #### L 500.2500, L100.0100 ####[facility] [address] [place], [address] RDW SD Normal 35.1-43.9 [facility] Comment on above: Result Comment: Canc elled via OM: Order cancelled - Patient discharged Performed By: #### L 500.2500, L100.0100 ####[facility] [address] [place], [address] WBC Normal 4.4-11.0 [facility] Comment on above: Result Comment: Canc elled via OM: Order cancelled - Patient discharged Performed By: #### L 500.2500, L100.0100 ####[facility] [address] [place], [address] Basic Metabolic Profile (BMP )on 03-26-2025 BUN Normal 4-19 [facility] Comment on above: Result Comment: Canc elled via OM: Order cancelled - Patient discharged Performed By: #### L 100.0100, L500.2500 ####[facility] [address] [place], [address] BUN/CRE Normal 10-20 [facility] Comment on above: Result Comment: Canc elled via OM: Order cancelled - Patient discharged Performed By: #### L 100.0100, L500.2500 ####[facility] [address] [place], [address] Calcium Normal 7.6-11.0 [facility] Comment on above: Result Comment: Canc elled via OM: Order cancelled - Patient discharged Performed By: #### L 100.0100, L500.2500 ####[facility] [address] [place], [address] CL Normal 98-108 [facility] Comment on above: Result Comment: Canc elled via OM: Order cancelled - Patient discharged Performed By: #### L 100.0100, L500.2500 ####[facility] [address] [place], [address] CO2 Normal 21.0-32.0 [facility] Comment on above: Result Comment: Canc elled via OM: Order cancelled - Patient discharged Performed By: #### L 100.0100, L500.2500 ####[facility] [address] [place], [address] CREAT,SERUM Normal 0.70-1.20 [facility] Comment on above: Result Comment: Canc elled via OM: Order cancelled - Patient discharged Performed By: #### L 100.0100, L500.2500 ####[facility] [address] [place], [address] eGFR Normal >60 [facility] Comment on above: Result Comment: Canc elled via OM: Order cancelled - Patient discharged Performed By: #### L 100.0100, L500.2500 ####[facility] [address] [place], [address] GAP Normal 5-15 [facility] Comment on above: Result Comment: Canc elled via OM: Order cancelled - Patient discharged Performed By: #### L 100.0100, L500.2500 ####[facility] [address] [place], [address] GLU Normal 70-99 [facility] Comment on above: Result Comment: Canc elled via OM: Order cancelled - Patient discharged Performed By: #### L 100.0100, L500.2500 ####[facility] [address] [place], [address] Potassium Normal 3.3-5.1 [facility] Comment on above: Result Comment: Canc elled via OM: Order cancelled - Patient discharged Performed By: #### L 100.0100, L500.2500 ####[facility] [address] [place], [address] Basic Metabolic Profile (BMP) Normal 133-145 [facility] Comment on above: Result Comment: Canc elled via OM: Order cancelled - Patient discharged Performed By: #### L 100.0100, L500.2500 ####[facility] [address] [place], [address] CBC W/Diff, Automatedon 05-0 Absolute Neut Normal 2.0-7.7 [facility] Comment on above: Result Comment: Canc elled via OM: Order cancelled - Patient discharged Performed By: #### L 100.0100, L500.2500 ####[facility] [address] [place], [address] HCT Normal 37-47 [facility] Comment on above: Result Comment: Canc elled via OM: Order cancelled - Patient discharged Performed By: #### L 100.0100, L500.2500 ####[facility] [address] [place], [address] HGB Normal 12.0-15.0 [facility] Comment on above: Result Comment: Canc elled via OM: Order cancelled - Patient discharged Performed By: #### L 100.0100, L500.2500 ####[facility] [address] [place], [address] MCH Normal 27.0-32.0 [facility] Comment on above: Result Comment: Canc elled via OM: Order cancelled - Patient discharged Performed By: #### L 100.0100, L500.2500 ####[facility] [address] [place], [address] MCHC Normal 32-36 [facility] Comment on above: Result Comment: Canc elled via OM: Order cancelled - Patient discharged Performed By: #### L 100.0100, L500.2500 ####[facility] [address] [place], [address] MCV Normal 81-99 [facility] Comment on above: Result Comment: Canc elled via OM: Order cancelled - Patient discharged Performed By: #### L 100.0100, L500.2500 ####[facility] [address] [place], [address] NEUT% Normal 47-70 [facility] Comment on above: Result Comment: Canc elled via OM: Order cancelled - Patient discharged Performed By: #### L 100.0100, L500.2500 ####[facility] [address] [place], [address] PLT Normal 150-450 [facility] Comment on above: Result Comment: Canc elled via OM: Order cancelled - Patient discharged Performed By: #### L 100.0100, L500.2500 ####[facility] [address] [place], [address] RBC Normal 4.2-5.4 [facility] Comment on above: Result Comment: Canc elled via OM: Order cancelled - Patient discharged Performed By: #### L 100.0100, L500.2500 ####[facility] [address] [place], [address] RDW CV Normal 11.6-14.6 [facility] Comment on above: Result Comment: Canc elled via OM: Order cancelled - Patient discharged Performed By: #### L 100.0100, L500.2500 ####[facility] [address] [place], [address] RDW SD Normal 35.1-43.9 [facility] Comment on above: Result Comment: Canc elled via OM: Order cancelled - Patient discharged Performed By: #### L 100.0100, L500.2500 ####[facility] [address] [place], [address] WBC Normal 4.4-11.0 [facility] Comment on above: Result Comment: Canc elled via OM: Order cancelled - Patient discharged Performed By: #### L 100.0100, L500.2500 ####[facility] [address] [place], [place], [id number] Respiratory Cultureon 2024 RESPC Normal [facility] Comment on above: Performed By: #### M 100.2000, M100.2400 ####[facility] [address] [place], [address] 12 Lead EKGon 03-25-2025 12 Lead EKG Normal [facility] Absolute lymphocyte countOrd ered By: Jose Armando Wood on 03-25-2025 Lymphocytes Auto (Unsp spec) [#/Vol] 1.08 10*3/uL 0.83-4.51 [facility] Absolute neutrophil countOrd ered By: Jose Armando Wood on 03-25-2025 Neutrophils (Bld) [#/Vol] 22.6 10*3/uL High 2.0-7.7 [facility] Anion gap in Serum or Plasma Ordered By: Jose Armando Wood on 03-25-2025 Anion gap [Moles/Vol] 9 mmol/L 5-15 [facility] Automated lymphocyte count a s percentage of total leukocytesOrdered By: Jose Armando Wood on 03-25-2025 Lymphocytes/100 WBC Auto (Unsp spec) 4.2 % Low 19-41 [facility] BUN/creatinine ratioOrdered By: Jose Armando Wood on 03-25-2025 Urea nitrogen/Creatinine [Mass ratio] 41.3 mg/mg High 10-20 [facility] Basic Metabolic Profile (BMP )on 03-25-2025 BUN/CRE 41.3 RATIO High 10-20 [facility] Comment on above: Performed By: #### L 500.2500, L100.0100 ####[facility] [address] [place], [place], [id number] Calcium [Mass/Vol] 9.3 mg/dL Normal 7.6-11.0 [facility] Comment on above: Performed By: #### L 500.2500, L100.0100 ####[facility] [address] [place], [address] Chloride [Moles/Vol] 87 mmol/L Low 98-108 [facility] Comment on above: Performed By: #### L 500.2500, L100.0100 ####[facility] [address] [place], [address] CO2 [Moles/Vol] 38.5 mmol/L High 21.0-32.0 [facility] Comment on above: Performed By: #### L 500.2500, L100.0100 ####[facility] [address] [place], [address] Creatinine [Mass/Vol] 0.80 mg/dL Normal 0.70-1.20 [facility] Comment on above: Performed By: #### L 500.2500, L100.0100 ####[facility] [address] [place], [address] ECRCL 74.62 ml/min Normal 50-250 [facility] Comment on above: Performed By: #### L 500.2500, L100.0100 ####[facility] [address] [place], [address] GAP 9 Normal 5-15 [facility] Comment on above: Performed By: #### L 500.2500, L100.0100 ####[facility] [address] [place], [address] GFR/1.73 sq M.predicted among non-blacks MDRD (S/P/Bld) [Vol rate/Area] 78 mL/min/{1.73_m2} Normal >60 [facility] Comment on above: Result Comment: mL/m in/1.73m2 CKD-EPI Creatinine Equation (2020) Performed By: #### L 500.2500, L100.0100 ####[facility] [address] [place], [address] Glucose [Mass/Vol] 188 mg/dL High 70-99 [facility] Comment on above: Performed By: #### L 500.2500, L100.0100 ####[facility] [address] [place], [address] Potassium [Moles/Vol] 4.9 mmol/L Normal 3.3-5.1 [facility] Comment on above: Performed By: #### L 500.2500, L100.0100 ####[facility] [address] [place], [address] Sodium [Moles/Vol] 135 mmol/L Normal 133-145 [facility] Comment on above: Performed By: #### L 500.2500, L100.0100 ####[facility] [address] [place], [address] Urea nitrogen [Mass/Vol] 33 mg/dL High 4-19 [facility] Comment on above: Performed By: #### L 500.2500, L100.0100 ####[facility] [address] [place], [address] BUN Normal -19 [facility] Comment on above: Result Comment: Canc elled via OM: Order cancelled - Patient discharged Performed By: #### L 500.2500, L100.0100 ####[facility] [address] [place], [address] BUN/CRE Normal 10-20 [facility] Comment on above: Result Comment: Canc elled via OM: Order cancelled - Patient discharged Performed By: #### L 500.2500, L100.0100 ####[facility] [address] [place], [address] Calcium Normal 7.6-11.0 [facility] Comment on above: Result Comment: Canc elled via OM: Order cancelled - Patient discharged Performed By: #### L 500.2500, L100.0100 ####[facility] [address] [place], [address] CL Normal 98-108 [facility] Comment on above: Result Comment: Canc elled via OM: Order cancelled - Patient discharged Performed By: #### L 500.2500, L100.0100 ####[facility] [address] [place], [address] CO2 Normal 21.0-32.0 [facility] Comment on above: Result Comment: Canc elled via OM: Order cancelled - Patient discharged Performed By: #### L 500.2500, L100.0100 ####[facility] [address] [place], [address] CREAT,SERUM Normal 0.70-1.20 [facility] Comment on above: Result Comment: Canc elled via OM: Order cancelled - Patient discharged Performed By: #### L 500.2500, L100.0100 ####[facility] [address] [place], [address] eGFR Normal >60 [facility] Comment on above: Result Comment: Canc elled via OM: Order cancelled - Patient discharged Performed By: #### L 500.2500, L100.0100 ####[facility] [address] [place], [address] GAP Normal 5-15 [facility] Comment on above: Result Comment: Canc elled via OM: Order cancelled - Patient discharged Performed By: #### L 500.2500, L100.0100 ####[facility] [address] [place], [address] GLU Normal 70-99 [facility] Comment on above: Result Comment: Canc elled via OM: Order cancelled - Patient discharged Performed By: #### L 500.2500, L100.0100 ####[facility] [address] [place], [address] Potassium Normal 3.3-5.1 [facility] Comment on above: Result Comment: Canc elled via OM: Order cancelled - Patient discharged Performed By: #### L 500.2500, L100.0100 ####[facility] [address] [place], [address] Basic Metabolic Profile (BMP) Normal 133-145 [facility] Comment on above: Result Comment: Canc elled via OM: Order cancelled - Patient discharged Performed By: #### L 500.2500, L100.0100 ####[facility] [address] [place], [address] Basophil percentageOrdered B y: Jose Armando Wood on 03-25-2025 Basophils/100 WBC (Bld) 0.2 % 0-[address] [facility] Blood manual differential co mment interpretation (narrative result)Ordered By: Jose Armando Wood on 03-25-2025 Manual differential comment Eugene (Bld) [Interp] COMMENT [facility] Comment on above: NEUTROPHILIA.MONCYTO SIS. CBC W/Diff, Automatedon 04-3 SMEAR COMMENT COMMENT Normal [facility] Comment on above: Result Comment: NEUT ROPHILIA.MONCYTOSIS. Performed By: #### L 500.2500, L100.0100 ####[facility] [address] [place], [address] Absolute Neut Normal 2.0-7.7 [facility] Comment on above: Result Comment: Canc elled via OM: Order cancelled - Patient discharged Performed By: #### L 500.2500, L100.0100 ####[facility] [address] [place], [address] HCT Normal 37-47 [facility] Comment on above: Result Comment: Canc elled via OM: Order cancelled - Patient discharged Performed By: #### L 500.2500, L100.0100 ####[facility] [address] [place], [address] HGB Normal 12.0-15.0 [facility] Comment on above: Result Comment: Canc elled via OM: Order cancelled - Patient discharged Performed By: #### L 500.2500, L100.0100 ####[facility] [address] [place], [address] MCH Normal 27.0-32.0 [facility] Comment on above: Result Comment: Canc elled via OM: Order cancelled - Patient discharged Performed By: #### L 500.2500, L100.0100 ####[facility] [address] [place], [address] MCHC Normal 32-36 [facility] Comment on above: Result Comment: Canc elled via OM: Order cancelled - Patient discharged Performed By: #### L 500.2500, L100.0100 ####[facility] [address] [place], [address] MCV Normal 81-99 [facility] Comment on above: Result Comment: Canc elled via OM: Order cancelled - Patient discharged Performed By: #### L 500.2500, L100.0100 ####[facility] [address] [place], [address] NEUT% Normal 47-70 [facility] Comment on above: Result Comment: Canc elled via OM: Order cancelled - Patient discharged Performed By: #### L 500.2500, L100.0100 ####[facility] [address] [place], [address] PLT Normal 150-450 [facility] Comment on above: Result Comment: Canc elled via OM: Order cancelled - Patient discharged Performed By: #### L 500.2500, L100.0100 ####[facility] [address] [place], [address] RBC Normal 4.2-5.4 [facility] Comment on above: Result Comment: Canc elled via OM: Order cancelled - Patient discharged Performed By: #### L 500.2500, L100.0100 ####[facility] [address] [place], [address] RDW CV Normal 11.6-14.6 [facility] Comment on above: Result Comment: Canc elled via OM: Order cancelled - Patient discharged Performed By: #### L 500.2500, L100.0100 ####[facility] [address] [place], [address] RDW SD Normal 35.1-43.9 [facility] Comment on above: Result Comment: Canc elled via OM: Order cancelled - Patient discharged Performed By: #### L 500.2500, L100.0100 ####[facility] [address] [place], [address] WBC Normal 4.4-11.0 [facility] Comment on above: Result Comment: Canc elled via OM: Order cancelled - Patient discharged Performed By: #### L 500.2500, L100.0100 ####[facility] [address] [place], [address] Carbon dioxide, total [Moles /volume] in Central venous bloodOrdered By: Jose Armando Wood on 03-25-2025 CO2 [Moles/Vol] 38.5 mmol/L High 21.0-32.0 [facility] Chest 1 View (Portable)on Chest 1 View (Portable) Normal [facility] Chloride assayOrdered By: Tanner Wood on 03-25-2025 Chloride [Moles/Vol] 87 mmol/L Low 98-108 [facility] Emergency Department Summary on 03-25-2025 Emergency Department Summary Normal [facility] Eosinophil percentageOrdered By: Jose Armando Wood on 03-25-2025 Eosinophils/100 WBC (Bld) 0.0 % 0-5 [facility] Erythrocyte distribution wid th ratioOrdered By: Jose Armando Wood on 03-25-2025 Erythrocyte distribution width (RBC) [Ratio] 14.1 % 11.6-14.6 [facility] Erythrocyte distribution wid th standard deviationOrdered By: Jose Armando Wood on 03-25-2025 Erythrocyte distribution width (RBC) [Ratio] 47.7 fl High 35.1-43.9 [facility] Glomerular filtration rate ( GFR) estimation/1.73 sq m using serum, plasma, or whole bOrdered By: Jose Armando Wood on 03-25-2025 GFR/1.73 sq M.predicted among non-blacks MDRD (S/P/Bld) [Vol rate/Area] 78 mL/min/{1.73_m2} >60 [facility] Comment on above: mL/min/1.73m2 CKD-EP I Creatinine Equation (2020) Hematocrit Auto (Bld) [Volum e fraction]Ordered By: Jose Armando Wood on 03-25-2025 Hematocrit (Bld) [Volume fraction] 41.5 % 37-47 [facility] Hemoglobin measurementOrdere d By: Jose Armando Wood on 03-25-2025 Hemoglobin (Bld) [Mass/Vol] 12.8 g/dL 12.0-15.0 [facility] Immature granulocytes/100 WB C Auto (Bld)Ordered By: Jose Armando Wood on 03-25-2025 Immature granulocytes/100 WBC (Bld) 0.800 % 0.0-0.9 [facility] Comment on above: IG% - Immature Granu locytes (promyelocytes, myelocytes and metamyelocytes) > 1% indicates that a LEFT SHIFT is Present. MCV (mean corpuscular volume ) determinationOrdered By: Jose Armando Wood on 03-25-2025 MCV (RBC) [Entitic vol] 92.8 fL 81-[address] [facility] Mean corpuscular hemoglobin (MCH) determinationOrdered By: Jose Armando Wood 03-25-2025 MCH (RBC) [Entitic mass] 28.6 pg 27.0-32.0 [facility] Mean corpuscular hemoglobin concentration (MCHC) determinationOrdered By: Jose Armando Wood 03-25-2025 MCHC (RBC) [Mass/Vol] 30.8 g/dL Low 32-36 [facility] Mean platelet volume determi nationOrdered By: Jose Armando Wood 03-25-2025 Platelet mean volume (Bld) [Entitic vol] 9.9 fL 6.2-12.0 [facility] Monocyte percentageOrdered B y: Jose Armando Wood on 03-25-2025 Monocytes/100 WBC (Bld) 7.8 % 0-[address] [facility] Neutrophil percentageOrdered By: Jose Armando Le on 03-25-2025 Neutrophils/100 WBC (Bld) 87.0 % High 47-70 [facility] Nucleated red blood cell per centageOrdered By: Jose Armando Le on 03-25-2025 Nucleated RBC/100 WBC (Bld) [Ratio] 0 % 0-5 [facility] Platelet countOrdered By: Tanner pricilla Wood on 03-25-2025 Platelets (Bld) [#/Vol] 414 10*3/uL 150-450 [facility] Potassium measurement (mass/ volume)Ordered By: Jose Armando Wood on 03-25-2025 Potassium (Unsp spec) [Mass/Vol] 4.9 mmol/L 3.3-5.1 [facility] RBC Auto (Bld) [#/Vol]Ordere d By: Jose Armando Wood on 03-25-2025 RBC (Bld) [#/Vol] 4.47 10*6/uL 4.2-5.4 [facility] Serum creatinine measurement (mass/volume)Ordered By: Jose Armando Wood on 03-25-2025 Creatinine [Mass/Vol] 0.80 mg/dL 0.70-1.20 [facility] Serum glucose measurement (m ass/volume)Ordered By: Jose Armando Wood on 03-25-2025 Glucose [Mass/Vol] 188 mg/dL High 70-99 [facility] Serum or plasma calcium diallo urement (mass/volume)Ordered By: Jose Armando Wood on 03-25-2025 Calcium [Mass/Vol] 9.3 mg/dL 7.6-11.0 [facility] Serum or plasma urea nitroge n measurement (mass/volume)Ordered By: Jose Armando Wood on 03-25-2025 Urea nitrogen [Mass/Vol] 33 mg/dL High 4-19 [facility] Sodium levelOrdered By: Jose Armando Wood on 03-25-2025 Sodium [Moles/Vol] 135 mmol/L 133-145 [facility] White blood cell (WBC) count Ordered By: Jose Armando Wood on 03-25-2025 WBC (Bld) [#/Vol] 25.9 10*3/uL High 4.4-11.0 [facility] Absolute lymphocyte countOrd ered By: Cindiana Lizarraga on 03-24-2025 Lymphocytes Auto (Unsp spec) [#/Vol] 0.66 10*3/uL Low 0.83-4.51 [facility] Absolute neutrophil countOrd ered By: Cindi Lizarraga on 03-24-2025 Neutrophils (Bld) [#/Vol] 16.2 10*3/uL High 2.0-7.7 [facility] Anion gap in Serum or Plasma Ordered By: Cindi Lizarraga on 03-24-2025 Anion gap [Moles/Vol] 4 mmol/L Low 5-15 [facility] Automated lymphocyte count a s percentage of total leukocytesOrdered By: Cindi Lizarraga on 03-24-2025 Lymphocytes/100 WBC Auto (Unsp spec) 3.6 % Low 19-41 [facility] BUN/creatinine ratioOrdered By: Cindi Lizarraga on 03-24-2025 Urea nitrogen/Creatinine [Mass ratio] 43.1 mg/mg High 10-20 [facility] Basic Metabolic Profile (BMP )on 03-24-2025 BUN/CRE 43.1 RATIO High 10-20 [facility] Comment on above: Performed By: #### L 100.0100, L500.2500 ####[facility] [address] [place], [address] Calcium [Mass/Vol] 9.2 mg/dL Normal 7.6-11.0 [facility] Comment on above: Performed By: #### L 100.0100, L500.2500 ####[facility] [address] [place], [address] Chloride [Moles/Vol] 89 mmol/L Low 98-108 [facility] Comment on above: Performed By: #### L 100.0100, L500.2500 ####[facility] [address] [place], [address] CO2 [Moles/Vol] 40.9 mmol/L High 21.0-32.0 [facility] Comment on above: Performed By: #### L 100.0100, L500.2500 ####[facility] [address] [place], [address] Creatinine [Mass/Vol] 0.74 mg/dL Normal 0.70-1.20 [facility] Comment on above: Performed By: #### L 100.0100, L500.2500 ####[facility] [address] [place], [address] ECRCL 77.65 ml/min Normal 50-250 [facility] Comment on above: Performed By: #### L 100.0100, L500.2500 ####[facility] [address] [place], [address] GAP 4 Low 5-15 [facility] Comment on above: Performed By: #### L 100.0100, L500.2500 ####[facility] [address] [place], [address] GFR/1.73 sq M.predicted among non-blacks MDRD (S/P/Bld) [Vol rate/Area] 87 mL/min/{1.73_m2} Normal >60 [facility] Comment on above: Result Comment: mL/m in/1.73m2 CKD-EPI Creatinine Equation (2020) Performed By: #### L 100.0100, L500.2500 ####[facility] [address] [place], [address] Glucose [Mass/Vol] 163 mg/dL High 70-99 [facility] Comment on above: Performed By: #### L 100.0100, L500.2500 ####[facility] [address] [place], [address] Potassium [Moles/Vol] 5.6 mmol/L High 3.3-5.1 [facility] Comment on above: Performed By: #### L 100.0100, L500.2500 ####[facility] [address] [place], [address] Sodium [Moles/Vol] 134 mmol/L Normal 133-145 [facility] Comment on above: Performed By: #### L 100.0100, L500.2500 ####[facility] [address] [place], [address] Urea nitrogen [Mass/Vol] 32 mg/dL High 4-19 [facility] Comment on above: Performed By: #### L 100.0100, L500.2500 ####[facility] [address] [place], [address] Basophil percentageOrdered B y: Cindi Lizarraga on 03-24-2025 Basophils/100 WBC (Bld) 0.2 % 0-[address] [facility] CBC W/Diff, Automatedon 02-25 Absolute Lymph 0.66 X10 3/uL Low 0.83-4.51 [facility] Comment on above: Performed By: #### L 100.0100, L500.2500 ####[facility] [address] [place], [address] Absolute Neut 16.2 X10 3/uL High 2.0-7.7 [facility] Comment on above: Performed By: #### L 100.0100, L500.2500 ####[facility] [address] [place], [address] Basophils/100 WBC (Bld) 0.2 % Normal 0-[address] [facility] Comment on above: Performed By: #### L 100.0100, L500.2500 ####[facility] [address] [place], [address] Eosinophils/100 WBC (Bld) 2.0 % Normal 0-5 [facility] Comment on above: Performed By: #### L 100.0100, L500.2500 ####[facility] [address] [place], [address] Erythrocyte distribution width (RBC) [Ratio] 14.0 % Normal 11.6-14.6 [facility] Comment on above: Performed By: #### L 100.0100, L500.2500 ####[facility] [address] [place], [address] Hematocrit (Bld) [Volume fraction] 40.5 % Normal 37-47 [facility] Comment on above: Performed By: #### L 100.0100, L500.2500 ####[facility] [address] [place], [address] Hemoglobin (Bld) [Mass/Vol] 12.3 g/dL Normal 12.0-15.0 [facility] Comment on above: Performed By: #### L 100.0100, L500.2500 ####[facility] [address] [place], [address] IG% 0.900 Normal 0.0-0.9 [facility] Comment on above: Result Comment: IG% - Immature Granulocytes (promyelocytes, myelocytes andmetamyelocytes) > 1% indicates that a LEFT SHIFT is Present. Performed By: #### L 100.0100, L500.2500 ####[facility] [address] [place], [address] Lymphocytes/100 WBC (Bld) 3.6 % Low 19-41 [facility] Comment on above: Performed By: #### L 100.0100, L500.2500 ####[facility] [address] [place], [address] MCH (RBC) [Entitic mass] 28.5 pg Normal 27.0-32.0 [facility] Comment on above: Performed By: #### L 100.0100, L500.2500 ####[facility] [address] [place], [address] MCHC (RBC) [Mass/Vol] 30.4 g/dL Low 32-36 [facility] Comment on above: Performed By: #### L 100.0100, L500.2500 ####[facility] [address] [place], [address] MCV (RBC) [Entitic vol] 93.8 fL Normal 81-[address] [facility] Comment on above: Performed By: #### L 100.0100, L500.2500 ####[facility] [address] [place], [address] Monocytes/100 WBC (Bld) 3.8 % Normal 0-10 [facility] Comment on above: Performed By: #### L 100.0100, L500.2500 ####[facility] [address] [place], [address] Neutrophils/100 WBC (Bld) 89.5 % High 47-70 [facility] Comment on above: Performed By: #### L 100.0100, L500.2500 ####[facility] [address] [place], [address] Nucleated RBC (Bld) [#/Vol] 0 10*3/uL Normal 0-5 [facility] Comment on above: Performed By: #### L 100.0100, L500.2500 ####[facility] [address] [place], [address] Platelet mean volume (Bld) [Entitic vol] 9.7 fL Normal 6.2-12.0 [facility] Comment on above: Performed By: #### L 100.0100, L500.2500 ####[facility] [address] [place], [address] Platelets (Bld) [#/Vol] 362 10*3/uL Normal 150-450 [facility] Comment on above: Performed By: #### L 100.0100, L500.2500 ####[facility] [address] [place], [address] RBC (Bld) [#/Vol] 4.32 10*6/uL Normal 4.2-5.4 [facility] Comment on above: Performed By: #### L 100.0100, L500.2500 ####[facility] [address] [place], [address] RDW SD 48.5 fl High 35.1-43.9 [facility] Comment on above: Performed By: #### L 100.0100, L500.2500 ####[facility] [address] [place], [address] WBC (Bld) [#/Vol] 18.1 10*3/uL High 4.4-11.0 [facility] Comment on above: Performed By: #### L 100.0100, L500.2500 ####[facility] [address] [place], [address] Carbon dioxide, total [Moles /volume] in Central venous bloodOrdered By: Cindi Lizarraga on 03-24-2025 CO2 [Moles/Vol] 40.9 mmol/L High 21.0-32.0 [facility] Chloride assayOrdered By: Antonette Lizarraga on 03-24-2025 Chloride [Moles/Vol] 89 mmol/L Low 98-108 [facility] Discharge Instructionon 04-2 Discharge Instruction Normal [facility] Eosinophil percentageOrdered By: Cindi Lizarraga on 03-24-2025 Eosinophils/100 WBC (Bld) 2.0 % 0-5 [facility] Erythrocyte distribution wid th (RBC) [Ratio]Ordered By: Cindi Lizarraga on 03-24-2025 Erythrocyte distribution width (RBC) [Entitic vol] 48.5 fL High 35.1-43.9 [facility] Erythrocyte distribution wid th ratioOrdered By: Cindi Lizarraga on 03-24-2025 Erythrocyte distribution width (RBC) [Ratio] 14.0 % 11.6-14.6 [facility] Erythrocyte distribution wid th standard deviationOrdered By: Cindi Lizarraga on 03-24-2025 Erythrocyte distribution width (RBC) [Ratio] 48.5 fl High 35.1-43.9 [facility] Estimation of creatinine junie aranceOrdered By: Cindi Lizarraga on 03-24-2025 Estimated Creatinine Clearance Calc 77.65 ml/min 50-250 [facility] GFR/1.73 sq M.predicted lisa g non-blacks MDRD (S/P/Bld) [Vol rate/Area]Ordered By: Cindi Lizarraga 03-24-2025 Estimated GFR (MDRD) Non-Af Amer 87 >60 [facility] Comment on above: mL/min/1.73m2 CKD-EP I Creatinine Equation (2020) Glomerular filtration rate ( GFR) estimation/1.73 sq m using serum, plasma, or whole bOrdered By: Cindi Lizarraga 03-24-2025 GFR/1.73 sq M.predicted among non-blacks MDRD (S/P/Bld) [Vol rate/Area] 87 mL/min/{1.73_m2} >60 [facility] Comment on above: mL/min/1.73m2 CKD-EP I Creatinine Equation (2020) Hematocrit Auto (Bld) [Volum e fraction]Ordered By: Cindi Lizarraga 03-24-2025 Hematocrit (Bld) [Volume fraction] 40.5 % 37-47 [facility] Hemoglobin measurementOrdere d By: Cindi Lizarraga 03-24-2025 Hemoglobin (Bld) [Mass/Vol] 12.3 g/dL 12.0-15.0 [facility] Immature granulocytes/100 WB C Auto (Bld)Ordered By: Cindi Lizarraga 03-24-2025 Immature granulocytes/100 WBC (Bld) 0.900 % 0.0-0.9 [facility] Comment on above: IG% - Immature Granu locytes (promyelocytes, myelocytes and metamyelocytes) > 1% indicates that a LEFT SHIFT is Present. Lymphocytes Auto (Unsp spec) [#/Vol]Ordered By: Cindi Lizarraga on 03-24-2025 Lymphocytes (Bld) [#/Vol] 0.66 10*3/uL Low 0.83-4.51 [facility] Lymphocytes/100 WBC Auto (Un sp spec)Ordered By: Cindi Lizarraga on 03-24-2025 Lymphocytes/100 WBC (Bld) 3.6 % Low 19-41 [facility] MCV (mean corpuscular volume ) determinationOrdered By: Cindi Lizarraga on 03-24-2025 MCV (RBC) [Entitic vol] 93.8 fL 81-[address] [facility] Mean corpuscular hemoglobin (MCH) determinationOrdered By: Cindi Lizarraga on 03-24-2025 MCH (RBC) [Entitic mass] 28.5 pg 27.0-32.0 [facility] Mean corpuscular hemoglobin concentration (MCHC) determinationOrdered By: Cindi Lizarraga on 03-24-2025 MCHC (RBC) [Mass/Vol] 30.4 g/dL Low 32-36 [facility] Mean platelet volume determi nationOrdered By: Cindi Lizarraga on 03-24-2025 Platelet mean volume (Bld) [Entitic vol] 9.7 fL 6.2-12.0 [facility] Monocyte percentageOrdered B y: Cindi Lizarraga on 03-24-2025 Monocytes/100 WBC (Bld) 3.8 % 0-[address] [facility] Neutrophil percentageOrdered By: Cindi Lizarraga on 03-24-2025 Neutrophils/100 WBC (Bld) 89.5 % High 47-70 [facility] Nucleated red blood cell per centageOrdered By: Cindi Lizarraga on 03-24-2025 Nucleated RBC/100 WBC (Bld) [Ratio] 0 % 0-5 [facility] Platelet countOrdered By: Antonette Lizarraga on 03-24-2025 Platelets (Bld) [#/Vol] 362 10*3/uL 150-450 [facility] Potassium (Unsp spec) [Mass/ Vol]Ordered By: Cindi Lizarraga on 03-24-2025 Potassium [Moles/Vol] 5.6 mmol/L High 3.3-5.1 [facility] Potassium measurement (mass/ volume)Ordered By: Cindi Lizarraga on 03-24-2025 Potassium (Unsp spec) [Mass/Vol] 5.6 mmol/L High 3.3-5.1 [facility] RBC Auto (Bld) [#/Vol]Ordere d By: Cindi Lizarraga on 03-24-2025 RBC (Bld) [#/Vol] 4.32 10*6/uL 4.2-5.4 [facility] Serum creatinine measurement (mass/volume)Ordered By: Cindiana Lizarraga on 03-24-2025 Creatinine [Mass/Vol] 0.74 mg/dL 0.70-1.20 [facility] Serum glucose measurement (m ass/volume)Ordered By: Cindiana Lizarraga on 03-24-2025 Glucose [Mass/Vol] 163 mg/dL High 70-99 [facility] Serum or plasma calcium diallo urement (mass/volume)Ordered By: Cindiana Lizarraga on 03-24-2025 Calcium [Mass/Vol] 9.2 mg/dL 7.6-11.0 [facility] Serum or plasma urea nitroge n measurement (mass/volume)Ordered By: Cindiana Lizarraga on 03-24-2025 Urea nitrogen [Mass/Vol] 32 mg/dL High 4-19 [facility] Sodium levelOrdered By: Cindi Alessandrocarol on 03-24-2025 Sodium [Moles/Vol] 134 mmol/L 133-145 [facility] White blood cell (WBC) count Ordered By: Cindiana Lizarraga on 03-24-2025 WBC (Bld) [#/Vol] 18.1 10*3/uL High 4.4-11.0 [facility] Basic Metabolic Profile (BMP )on 03-23-2025 BUN/CRE 43.4 RATIO High 10-20 [facility] Comment on above: Performed By: #### L 500.2500 ####[facility] [address] [place], [place], [id number] Calcium [Mass/Vol] 9.3 mg/dL Normal 7.6-11.0 [facility] Comment on above: Performed By: #### L 500.2500 ####[facility] [address] [place], [address] Chloride [Moles/Vol] 91 mmol/L Low 98-108 [facility] Comment on above: Performed By: #### L 500.2500 ####[facility] [address] [place], [address] CO2 [Moles/Vol] 42.1 mmol/L High 21.0-32.0 [facility] Comment on above: Performed By: #### L 500.2500 ####[facility] [address] [place], [address] Creatinine [Mass/Vol] 0.58 mg/dL Low 0.70-1.20 [facility] Comment on above: Performed By: #### L 500.2500 ####[facility] [address] [place], [address] ECRCL 77.57 ml/min Normal 50-250 [facility] Comment on above: Performed By: #### L 500.2500 ####[facility] [address] [place], [address] GAP 5 Normal 5-15 [facility] Comment on above: Performed By: #### L 500.2500 ####[facility] [address] [place], [address] GFR/1.73 sq M.predicted among non-blacks MDRD (S/P/Bld) [Vol rate/Area] 97 mL/min/{1.73_m2} Normal >60 [facility] Comment on above: Result Comment: mL/m in/1.73m2 CKD-EPI Creatinine Equation (2020) Performed By: #### L 500.2500 ####[facility] [address] [place], [address] Glucose [Mass/Vol] 165 mg/dL High 70-99 [facility] Comment on above: Performed By: #### L 500.2500 ####[facility] [address] [place], [address] Potassium [Moles/Vol] 4.9 mmol/L Normal 3.3-5.1 [facility] Comment on above: Performed By: #### L 500.2500 ####[facility] [address] [place], [address] Sodium [Moles/Vol] 138 mmol/L Normal 133-145 [facility] Comment on above: Performed By: #### L 500.2500 ####[facility] [address] [place], [address] Urea nitrogen [Mass/Vol] 25 mg/dL High 4-19 [facility] Comment on above: Performed By: #### L 500.2500 ####[facility] [address] [place], [address] Gram Stainon 03-23-2025 List Antibiotics [place] t 48 Hours? zithromax Acceptable Specimen? Yes (<25 Epithelial cells per/lpf) Gram Stain 2+ Gram positive cocci 3+ White Blood Cells Rare Epithelial cells Normal [facility] Comment on above: Performed By: #### M 100.2000, M100.2400 ####[facility] [address] [place], [address] Gram stainOrdered By: Cindi juarez on 03-23-2025 Microscopic observation Gram stain Nom (Unsp spec) [facility] Microbial respiratory cultur eOrdered By: Cindi Lizarraga on 03-23-2025 Microorganism identified Cx Nom (Unsp spec) Proteus mirabilis Abnormal [facility] Phosphoruson 03-21-2025 Phosphate [Mass/Vol] 2.8 mg/dL Normal 2.7-4.5 [facility] Comment on above: Performed By: #### L 501.2300 ####[facility] [address] [place], [address] Serum phosphorus measurement Ordered By: Orlando Maldonado on 03-21-2025 Phosphorus Level 2.8 mg/dL 2.7-4.5 [facility] Bilirubin, totalOrdered By: Orlando Maldonado on 03-20-2025 Bilirubin [Mass/Vol] 0.28 mg/dL 0.00-1.30 [facility] CBC W/Diff, Automatedon 02-25 Absolute Lymph 0.47 X10 3/uL Low 0.83-4.51 [facility] Comment on above: Performed By: #### L 100.0100 ####[facility] [address] [place], [address] Absolute Neut 10.3 X10 3/uL High 2.0-7.7 [facility] Comment on above: Performed By: #### L 100.0100 ####[facility] [address] [place], [address] Basophils/100 WBC (Bld) 0.1 % Normal 0-1 [facility] Comment on above: Performed By: #### L 100.0100 ####[facility] [address] [place], [address] Eosinophils/100 WBC (Bld) 0.0 % Normal 0-5 [facility] Comment on above: Performed By: #### L 100.0100 ####[facility] [address] [place], [address] Erythrocyte distribution width (RBC) [Ratio] 13.5 % Normal 11.6-14.6 [facility] Comment on above: Performed By: #### L 100.0100 ####[facility] [address] [place], [address] Hematocrit (Bld) [Volume fraction] 36.2 % Low 37-47 [facility] Comment on above: Performed By: #### L 100.0100 ####[facility] [address] [place], [address] Hemoglobin (Bld) [Mass/Vol] 10.9 g/dL Low 12.0-15.0 [facility] Comment on above: Performed By: #### L 100.0100 ####[facility] [address] [place], [address] IG% 0.500 Normal 0.0-0.9 [facility] Comment on above: Result Comment: IG% - Immature Granulocytes (promyelocytes, myelocytes andmetamyelocytes) > 1% indicates that a LEFT SHIFT is Present. Performed By: #### L 100.0100 ####[facility] [address] [place], [address] Lymphocytes/100 WBC (Bld) 4.3 % Low 19-41 [facility] Comment on above: Performed By: #### L 100.0100 ####[facility] [address] [place], [address] MCH (RBC) [Entitic mass] 28.8 pg Normal 27.0-32.0 [facility] Comment on above: Performed By: #### L 100.0100 ####[facility] [address] [place], [address] MCHC (RBC) [Mass/Vol] 30.1 g/dL Low 32-36 [facility] Comment on above: Performed By: #### L 100.0100 ####[facility] [address] [place], [address] MCV (RBC) [Entitic vol] 95.8 fL Normal 81-[address] [facility] Comment on above: Performed By: #### L 100.0100 ####[facility] [address] [place], [address] Monocytes/100 WBC (Bld) 1.2 % Normal 0-[address] [facility] Comment on above: Performed By: #### L 100.0100 ####[facility] [address] [place], [address] Neutrophils/100 WBC (Bld) 93.9 % High 47-70 [facility] Comment on above: Performed By: #### L 100.0100 ####[facility] [address] [place], [address] Nucleated RBC (Bld) [#/Vol] 0 10*3/uL Normal 0-5 [facility] Comment on above: Performed By: #### L 100.0100 ####[facility] [address] [place], [address] Platelet mean volume (Bld) [Entitic vol] 9.8 fL Normal 6.2-12.0 [facility] Comment on above: Performed By: #### L 100.0100 ####[facility] [address] [place], [address] Platelets (Bld) [#/Vol] 315 10*3/uL Normal 150-450 [facility] Comment on above: Performed By: #### L 100.0100 ####[facility] [address] [place], [address] RBC (Bld) [#/Vol] 3.78 10*6/uL Low 4.2-5.4 [facility] Comment on above: Performed By: #### L 100.0100 ####[facility] [address] [place], [address] RDW SD 48.0 fl High 35.1-43.9 [facility] Comment on above: Performed By: #### L 100.0100 ####[facility] [address] [place], [address] WBC (Bld) [#/Vol] 11.0 10*3/uL Normal 4.4-11.0 [facility] Comment on above: Performed By: #### L 100.0100 ####[facility] [address] [place], [address] Calculated very low density lipoprotein (VLDL) cholesterol measurementOrdered By: Orlando Maldonado on 03-20-2025 Calculated very low density lipoprotein (VLDL) cholesterol measurement 10 mg/dL [facility] VLDL Cholesterol 10 mg/dL [facility] Comprehensive Metabolic Prof ilon 03-20-2025 Albumin [Mass/Vol] 3.5 g/dL Normal 3.4-4.8 [facility] Comment on above: Performed By: #### L 503.7505, L501.2300, L500.4100, L500.4050 ####[facility] [address] [place], [address] Albumin/Globulin [Mass ratio] 1.0 {ratio} Normal 0.9-2.4 [facility] Comment on above: Performed By: #### L 503.7505, L501.2300, L500.4100, L500.4050 ####[facility] [address] [place], [address] ALK PHOS 65 U/L Normal 35-104 [facility] Comment on above: Performed By: #### L 503.7505, L501.2300, L500.4100, L500.4050 ####[facility] [address] [place], [address] ALT [Catalytic activity/Vol] 12 U/L Normal <=34 [facility] Comment on above: Performed By: #### L 503.7505, L501.2300, L500.4100, L500.4050 ####[facility] [address] [place], [address] AST [Catalytic activity/Vol] 13 U/L Normal <=31 [facility] Comment on above: Performed By: #### L 503.7505, L501.2300, L500.4100, L500.4050 ####[facility] [address] [place], [address] Bilirubin [Mass/Vol] 0.28 mg/dL Normal 0.00-1.30 [facility] Comment on above: Performed By: #### L 503.7505, L501.2300, L500.4100, L500.4050 ####[facility] [address] [place], [address] BUN/CRE 24.8 RATIO High 10-20 [facility] Comment on above: Performed By: #### L 503.7505, L501.2300, L500.4100, L500.4050 ####[facility] [address] [place], [address] Calcium [Mass/Vol] 9.1 mg/dL Normal 7.6-11.0 [facility] Comment on above: Performed By: #### L 503.7505, L501.2300, L500.4100, L500.4050 ####[facility] [address] [place], [address] Chloride [Moles/Vol] 89 mmol/L Low 98-108 [facility] Comment on above: Performed By: #### L 503.7505, L501.2300, L500.4100, L500.4050 ####[facility] [address] [place], [address] CO2 [Moles/Vol] 41.8 mmol/L High 21.0-32.0 [facility] Comment on above: Performed By: #### L 503.7505, L501.2300, L500.4100, L500.4050 ####[facility] [address] [place], [address] Creatinine [Mass/Vol] 0.59 mg/dL Low 0.70-1.20 [facility] Comment on above: Performed By: #### L 503.7505, L501.2300, L500.4100, L500.4050 ####[facility] [address] [place], [address] ECRCL 77.16 ml/min Normal 50-250 [facility] Comment on above: Performed By: #### L 503.7505, L501.2300, L500.4100, L500.4050 ####[facility] [address] [place], [address] GAP 8 Normal 5-15 [facility] Comment on above: Performed By: #### L 503.7505, L501.2300, L500.4100, L500.4050 ####[facility] [address] [place], [address] GFR/1.73 sq M.predicted among non-blacks MDRD (S/P/Bld) [Vol rate/Area] 96 mL/min/{1.73_m2} Normal >60 [facility] Comment on above: Result Comment: mL/m in/1.73m2 CKD-EPI Creatinine Equation (2020) Performed By: #### L 503.7505, L501.2300, L500.4100, L500.4050 ####[facility] [address] [place], [address] Globulin (S) [Mass/Vol] 3.3 g/dL Normal 2.2-4.2 [facility] Comment on above: Performed By: #### L 503.7505, L501.2300, L500.4100, L500.4050 ####[facility] [address] [place], [address] Glucose [Mass/Vol] 163 mg/dL High 70-99 [facility] Comment on above: Performed By: #### L 503.7505, L501.2300, L500.4100, L500.4050 ####[facility] [address] [place], [address] Potassium [Moles/Vol] 4.6 mmol/L Normal 3.3-5.1 [facility] Comment on above: Performed By: #### L 503.7505, L501.2300, L500.4100, L500.4050 ####[facility] [address] [place], [address] Sodium [Moles/Vol] 139 mmol/L Normal 133-145 [facility] Comment on above: Performed By: #### L 503.7505, L501.2300, L500.4100, L500.4050 ####[facility] [address] [place], [address] T PROT 6.8 g/dL Normal 5.9-8.4 [facility] [facility] Comment on above: Performed By: #### L 503.7505, L501.2300, L500.4100, L500.4050 ####[facility] [address] [place], [address] Urea nitrogen [Mass/Vol] 15 mg/dL Normal 4-19 [facility] Comment on above: Performed By: #### L 503.7505, L501.2300, L500.4100, L500.4050 ####[facility] [address] [place], [address] Echocardiogram study reportO rdered By: Chandni Courtney on 03-20-2025 Study report [facility] [address] [place] [address] Echo Complete W/ Contrast 03/20/25 0914 MR#: [id number] Acct: [id number] Name: PIPER CLARK Rep #:[id number] 1 : 1955 69 From: Chandni Courtney MD Attending Dr: Dr. Chai Rider DO Status: ADM IN Ordering Dr: Orlando Bolden DO Date: 03/19/25 Location: [facility] Sex: F C Admitted: 03/19/25 Reason For [...] Physician: GENIA CHAPPELL Performed By: Katelyn Barakat, [facility] 03/20/25 1055 Date _ Chandni Courtney MD CC: Dr. Genia Chappell MD; Dr. Orlando Bolden DO; Dr. Chai Rider DO; Dr.Remus Curran DO ~ Date Dictated: 03/20/25913 Date Transcribed: 03/20/251054 Picker Machine Operator: Signed [facility] Work Phone: Folates,Serum (Folic Acid)on 03-20-2025 FOLATES,SERUM 8.88 ng/mL Normal 4.60-34.80 [facility] Comment on above: Result Comment: Hemo lysis, Results will be affected, Requires Recollection. Performed By: #### L 501.5200, L506.0200, L501.9520, L503.0106 ####[facility] [address] [place], [place], [id number] Hemoglobin A1con 03-20-2025 HbA1c (Bld) [Mass fraction] 5.5 % Normal <=5.6 [facility] Comment on above: Result Comment: Norm al < 5.7 % Prediabetic 5.7 - 6.4 % Diabetic >or= 6.5 % Please note range changes. Performed By: #### L 501.9985 ####[facility] [address] [place], [place], [address] L499.0043on 03-20-2025 Trop T High Sen Normal <=14 [facility] Comment on above: Result Comment: RENEE JOHNSON SAID TO CANCEL Performed By: #### L 499.0043 ####[facility] [address] [place], [address] L503.7505on 03-20-2025 Natriuretic peptide B (Bld) [Mass/Vol] 1547 pg/mL High <=900 [facility] Comment on above: Result Comment: Hear t Failure Unlikely: < 300 pg/mLHeart Failure Likely< 50 Years: > 450 pg/mL50-75 Years: > 900 pg/mL>75 Years: > 1800 pg/mL Performed By: #### L 503.7505, L501.2300, L500.4100, L500.4050 ####[facility] [address] [place], [address] LDL calc ser/plasOrdered By: Orlando Maldonado on 03-20-2025 Cholesterol in LDL [Mass/Vol] 82 mg/dL [facility] Comment on above: Ujdnpvorop=809-882 m g/dL & Higher Dzsx=460 mg/dL or greater LDL Cholesterol, Calculated 82 mg/dL [facility] Comment on above: Tuhnrotubv=854-898 m g/dL & Higher Sqme=357 mg/dL or greater Laboratory - Chemistry and C hemistry - challengeOrdered By: Orlando Maldonado on 03-20-2025 AST [Catalytic activity/Vol] 13 U/L <32 [facility] Lipid Profileon 03-20-2025 CHOL:HDL 2.58 Normal [facility] Comment on above: Performed By: #### L 503.7505, L501.2300, L500.4100, L500.4050 ####[facility] [address] [place], [address] Cholesterol [Mass/Vol] 150 mg/dL Normal <=200 [facility] Comment on above: Result Comment: Chol esterol level, Desirable <200 mg/dLBorderline high cholesterol 200-239 mg/dLHigh cholesterol >=240 mg/dLRecommendations of the NCEP Adult Treatment Panel for thefollowing risk-cutoff thresholds for the [place] Americanpulation. Performed By: #### L 503.7505, L501.2300, L500.4100, L500.4050 ####[facility] [address] [place], [address] Cholesterol in HDL [Mass/Vol] 58 mg/dL Normal [facility] Comment on above: Result Comment: Leslie onal Cholesterol Education Program (NCEP) guidelines:<40 mg/dL: Low HDL-cholesterol (major risk factor for CHD)>= 60 mg/dL: High HDL-cholesterol (negative risk factor forCHD)HDL-cholesterol is affected by a number of factors, e.g.smoking, exercise, hormones, sex and age. Performed By: #### L 503.7505, L501.2300, L500.4100, L500.4050 ####[facility] [address] [place], [address] Cholesterol in LDL [Mass/Vol] 82 mg/dL Normal [facility] Comment on above: Result Comment: Bord gmclgz=115-151 mg/dL Higher Chgn=188 mg/dL or greater Performed By: #### L 503.7505, L501.2300, L500.4100, L500.4050 ####[facility] [address] [place], [address] Cholesterol in VLDL [Mass/Vol] 10 mg/dL Normal 5-40 [facility] Comment on above: Performed By: #### L 503.7505, L501.2300, L500.4100, L500.4050 ####[facility] [address] [place], [address] Triglyceride [Mass/Vol] 51 mg/dL Normal [facility] Comment on above: Result Comment: The drugs N-Acetylcysteine and Metamizole may falselydepress this assay.Normal range: <150 mg/dLBorderline High: 150-199 mg/dLHigh: 200-499 mg/dLVery High: >500 mg/dL Performed By: #### L 503.7505, L501.2300, L500.4100, L500.4050 ####[facility] [address] [place], [place], [id number] Magnesiumon 03-20-2025 Magnesium [Mass/Vol] 1.7 mg/dL Normal 1.5-2.2 [facility] Comment on above: Performed By: #### L 501.5200, L506.0200, L501.9520, L503.0106 ####[facility] [address] [place], [place], [address] Natriuretic peptide.B prohor inessa N-Terminal [Mass/Vol]Ordered By: Oralndo Maldonado on 03-20-2025 Natriuretic peptide B (Bld) [Mass/Vol] 1547 pg/mL High <900 [facility] Comment on above: Heart Failure Unlike ly: < 300 pg/mLHeart Failure Likely< 50 Years: > 450 pg/mL50-75 Years: > 900 pg/mL>75 Years: > 1800 pg/mL Natriuretic peptide.B prohor inessa N-Terminal [Mass/volume] in Serum or PlasmaOrdered By: Orlando Maldonado on 03-20-2025 Natriuretic peptide.B prohormone N-Terminal [Mass/Vol] 1547 pg/mL High <900 [facility] Comment on above: Heart Failure Unlike ly: < 300 pg/mLHeart Failure Likely< 50 Years: > 450 pg/mL50-75 Years: > 900 pg/mL>75 Years: > 1800 pg/mL No Panel InformationOrdered By: Orlando Maldonado on 03-20-2025 13 U/L <32 [facility] Phosphoruson 03-20-2025 Phosphate [Mass/Vol] 2.9 mg/dL Normal 2.7-4.5 [facility] Comment on above: Performed By: #### L 503.7505, L501.2300, L500.4100, L500.4050 ####[facility] [address] [place], [place], [id number] Screening total cholesterol/ high density lipoprotein (HDL) cholesterol ratioOrdered By: Orlando Maldonado on 03-20-2025 Cholesterol.total/Choles terol in HDL [Mass ratio] 2.58 {ratio} [facility] Serum globulin measurementOr dered By: Orlando Maldonado on 03-20-2025 Globulin (S) [Mass/Vol] 3.3 g/dL 2.2-4.[address] [facility] Serum or plasma alanine garza otransferase (ALT) measurementOrdered By: Orlando Maldonado on 03-20-2025 ALT [Catalytic activity/Vol] 12 U/L <35 [facility] Serum or plasma albumin diallo urement (mass/volume)Ordered By: Orlando Maldonado on 03-20-2025 Albumin [Mass/Vol] 3.5 g/dL 3.4-4.8 [facility] Serum or plasma albumin/glob ulin mass ratioOrdered By: Orlando Maldonado on 03-20-2025 Albumin/Globulin [Mass ratio] 1.0 {ratio} 0.9-2.4 [facility] Serum or plasma alkaline pati sphatase measurementOrdered By: Orlando Maldonado on 03-20-2025 ALP [Catalytic activity/Vol] 65 U/L 35-104 [facility] Serum or plasma cholesterol in HDL measurement (mass/volume)Ordered By: Orlando Maldonado on 03-20-2025 Cholesterol in HDL [Mass/Vol] 58 mg/dL >40 [facility] Comment on above: National Cholesterol Education Program (NCEP) guidelines:<40 mg/dL: Low HDL-cholesterol (major risk factor for CHD)>= 60 mg/dL: High HDL-cholesterol (negative risk factor for CHD)HDL-cholesterol is affected by a number of factors, e.g. smoking, exercise, hormones, sex and age. Serum or plasma cholesterol measurement (mass/volume)Ordered By: Orlando Maldonado on 03-20-2025 Cholesterol [Mass/Vol] 150 mg/dL <201 [facility] Comment on above: Cholesterol level, D esirable <200 mg/dLBorderline high cholesterol 200-239 mg/dLHigh cholesterol >=240 mg/dLRecommendations of the NCEP Adult Treatment Panel for the following risk-cutoff thresholds for the [place] population. Thyroid Stim Hormone (TSH)on 03-20-2025 TSH 0.905 uIU/mL Normal 0.300-4.200 [facility] Comment on above: Performed By: #### L 501.5200, L506.0200, L501.9520, L503.0106 ####[facility] [address] [place], [address] Total proteinOrdered By: Severo Maldonado on 03-20-2025 Protein [Mass/Vol] 6.8 g/dL 5.9-8.4 [facility] Triglycerides measurementOrd ered By: Orlando Maldonado on 03-20-2025 Triglyceride [Mass/Vol] 51 mg/dL <[address] [facility] Comment on above: The drugs N-Acetylcy steine and Metamizole may falsely depress this assay. Normal range: <150 mg/dLBorderline High: 150-199 mg/dLHigh: 200-499 mg/dLVery High: >500 mg/dL Vitamin B12on 03-20-2025 Cobalamin (Vitamin B12) [Mass/Vol] 473 pg/mL Normal 180-914 [facility] Comment on above: Performed By: #### L 501.5200, L506.0200, L501.9520, L503.0106 ####[facility] [address] [place], [address] Basic Metabolic Profile (BMP )on 03-19-2025 BUN/CRE 16.7 RATIO Normal 10-20 [facility] Comment on above: Performed By: #### L 100.0100, L503.7505, L501.4021, L500.2500 ####[facility] [address] [place], [address] Calcium [Mass/Vol] 9.2 mg/dL Normal 7.6-11.0 [facility] Comment on above: Performed By: #### L 100.0100, L503.7505, L501.4021, L500.2500 ####[facility] [address] [place], [address] Chloride [Moles/Vol] 86 mmol/L Low 98-108 [facility] Comment on above: Performed By: #### L 100.0100, L503.7505, L501.4021, L500.2500 ####[facility] [address] [place], [address] CO2 [Moles/Vol] 38.3 mmol/L High 21.0-32.0 [facility] Comment on above: Performed By: #### L 100.0100, L503.7505, L501.4021, L500.2500 ####[facility] [address] [place], [address] Creatinine [Mass/Vol] 0.80 mg/dL Normal 0.70-1.20 [facility] Comment on above: Performed By: #### L 100.0100, L503.7505, L501.4021, L500.2500 ####[facility] [address] [place], [address] ECRCL 77.85 ml/min Normal 50-250 [facility] Comment on above: Performed By: #### L 100.0100, L503.7505, L501.4021, L500.2500 ####[facility] [address] [place], [address] GAP 9 Normal 5-15 [facility] Comment on above: Performed By: #### L 100.0100, L503.7505, L501.4021, L500.2500 ####[facility] [address] [place], [address] GFR/1.73 sq M.predicted among non-blacks MDRD (S/P/Bld) [Vol rate/Area] 79 mL/min/{1.73_m2} Normal >60 [facility] Comment on above: Result Comment: mL/m in/1.73m2 CKD-EPI Creatinine Equation (2020) Performed By: #### L 100.0100, L503.7505, L501.4021, L500.2500 ####[facility] [address] [place], [address] Glucose [Mass/Vol] 232 mg/dL High 70-99 [facility] Comment on above: Performed By: #### L 100.0100, L503.7505, L501.4021, L500.2500 ####[facility] [address] [place], [address] Potassium [Moles/Vol] 4.3 mmol/L Normal 3.3-5.1 [facility] Comment on above: Performed By: #### L 100.0100, L503.7505, L501.4021, L500.2500 ####[facility] [address] [place], [address] Sodium [Moles/Vol] 133 mmol/L Normal 133-145 [facility] Comment on above: Performed By: #### L 100.0100, L503.7505, L501.4021, L500.2500 ####[facility] [address] [place], [address] Urea nitrogen [Mass/Vol] 13 mg/dL Normal 4-19 [facility] Comment on above: Performed By: #### L 100.0100, L503.7505, L501.4021, L500.2500 ####[facility] [address] [place], [address] CBC W/Diff, Automatedon 04-2 Absolute Lymph 1.91 X10 3/uL Normal 0.83-4.51 [facility] Comment on above: Performed By: #### L 100.0100, L503.7505, L501.4021, L500.2500 ####[facility] [address] [place], [address] Absolute Neut 10.2 X10 3/uL High 2.0-7.7 [facility] Comment on above: Performed By: #### L 100.0100, L503.7505, L501.4021, L500.2500 ####[facility] [address] [place], [address] Basophils/100 WBC (Bld) 0.4 % Normal 0-[address] [facility] Comment on above: Performed By: #### L 100.0100, L503.7505, L501.4021, L500.2500 ####[facility] [address] [place], [address] Eosinophils/100 WBC (Bld) 2.2 % Normal 0-5 [facility] Comment on above: Performed By: #### L 100.0100, L503.7505, L501.4021, L500.2500 ####[facility] [address] [place], [address] Erythrocyte distribution width (RBC) [Ratio] 13.5 % Normal 11.6-14.6 [facility] Comment on above: Performed By: #### L 100.0100, L503.7505, L501.4021, L500.2500 ####[facility] [address] [place], [address] Hematocrit (Bld) [Volume fraction] 39.1 % Normal 37-47 [facility] Comment on above: Performed By: #### L 100.0100, L503.7505, L501.4021, L500.2500 ####[facility] [address] [place], [address] Hemoglobin (Bld) [Mass/Vol] 11.7 g/dL Low 12.0-15.0 [facility] Comment on above: Performed By: #### L 100.0100, L503.7505, L501.4021, L500.2500 ####[facility] [address] [place], [address] IG% 0.400 Normal 0.0-0.9 [facility] Comment on above: Result Comment: IG% - Immature Granulocytes (promyelocytes, myelocytes andmetamyelocytes) > 1% indicates that a LEFT SHIFT is Present. Performed By: #### L 100.0100, L503.7505, L501.4021, L500.2500 ####[facility] [address] [place], [address] Lymphocytes/100 WBC (Bld) 13.9 % Low 19-41 [facility] Comment on above: Performed By: #### L 100.0100, L503.7505, L501.4021, L500.2500 ####[facility] [address] [place], [address] MCH (RBC) [Entitic mass] 28.6 pg Normal 27.0-32.0 [facility] Comment on above: Performed By: #### L 100.0100, L503.7505, L501.4021, L500.2500 ####[facility] [address] [place], [address] MCHC (RBC) [Mass/Vol] 29.9 g/dL Low 32-36 [facility] Comment on above: Performed By: #### L 100.0100, L503.7505, L501.4021, L500.2500 ####[facility] [address] [place], [address] MCV (RBC) [Entitic vol] 95.6 fL Normal 81-99 [facility] Comment on above: Performed By: #### L 100.0100, L503.7505, L501.4021, L500.2500 ####[facility] [address] [place], [address] Monocytes/100 WBC (Bld) 9.2 % Normal 0-[address] [facility] Comment on above: Performed By: #### L 100.0100, L503.7505, L501.4021, L500.2500 ####[facility] [address] [place], [address] Neutrophils/100 WBC (Bld) 73.9 % High 47-70 [facility] Comment on above: Performed By: #### L 100.0100, L503.7505, L501.4021, L500.2500 ####[facility] [address] [place], [address] Nucleated RBC (Bld) [#/Vol] 0 10*3/uL Normal 0-5 [facility] Comment on above: Performed By: #### L 100.0100, L503.7505, L501.4021, L500.2500 ####[facility] [address] [place], [address] Platelet mean volume (Bld) [Entitic vol] 10.0 fL Normal 6.2-12.0 [facility] Comment on above: Performed By: #### L 100.0100, L503.7505, L501.4021, L500.2500 ####[facility] [address] [place], [address] Platelets (Bld) [#/Vol] 373 10*3/uL Normal 150-450 [facility] Comment on above: Performed By: #### L 100.0100, L503.7505, L501.4021, L500.2500 ####[facility] [address] [place], [address] RBC (Bld) [#/Vol] 4.09 10*6/uL Low 4.2-5.4 [facility] Comment on above: Performed By: #### L 100.0100, L503.7505, L501.4021, L500.2500 ####[facility] [address] [place], [address] RDW SD 47.8 fl High 35.1-43.9 [facility] Comment on above: Performed By: #### L 100.0100, L503.7505, L501.4021, L500.2500 ####[facility] [address] [place], [address] WBC (Bld) [#/Vol] 13.7 10*3/uL High 4.4-11.0 [facility] Comment on above: Performed By: #### L 100.0100, L503.7505, L501.4021, L500.2500 ####[facility] [address] [place], [address] Chest 1 View (Portable)on Chest 1 View (Portable) Normal [facility] Echo Complete W/ Contraston 03-19-2025 Echo Complete W/ Contrast Normal [facility] Emergency Department Summary on 03-19-2025 Emergency Department Summary Normal [facility] Folate [Moles/Vol]Ordered By : Orlando Maldonado on 03-19-2025 Serum Folate 8.88 ng/mL 4.60-34.80 [facility] Comment on above: Hemolysis, Results w ill be affected, Requires Recollection. Folate [Moles/volume] in Ser um or PlasmaOrdered By: Orlando Maldonado on 03-19-2025 Folate [Moles/Vol] 8.88 ng/mL 4.60-34.80 [facility] Comment on above: Hemolysis, Results w ill be affected, Requires Recollection. H AND P Exam - [facility] 03-19-2025 H&P Exam - Hospitalist Normal [facility] Hemoglobin A1c percentageOrd ered By: Orlando Maldonado on 03-19-2025 HbA1c (Bld) [Mass fraction] 5.5 % <5.7 [facility] Comment on above: Normal < 5.7 % Predi abetic 5.7 - 6.4 % Diabetic >or= 6.5 % Please note range changes. L499.0042on 04-24-2025 Trop T High Sen 10 ng/L Normal <=14 [facility] Comment on above: Order Comment: ER DI D NOT GET SECOND TROP BEFORE LEAVING TO FLOOR. Performed By: #### L 499.0042 ####[facility] [address] [place], [address] L501.4021on 03-19-2025 Trop T High Sen 19 ng/L High <=14 [facility] Comment on above: Performed By: #### L 100.0100, L503.7505, L501.4021, L500.2500 ####[facility] [address] [place], [address] L503.7505on 03-19-2025 Natriuretic peptide B (Bld) [Mass/Vol] 1003 pg/mL High <=900 [facility] Comment on above: Result Comment: Hear t Failure Unlikely: < 300 pg/mLHeart Failure Likely< 50 Years: > 450 pg/mL50-75 Years: > 900 pg/mL>75 Years: > 1800 pg/mL Performed By: #### L 100.0100, L503.7505, L501.4021, L500.2500 ####[facility] [address] [place], [address] Magnesium (Unsp spec) [Mass/ Vol]Ordered By: Orlando Maldonado on 03-19-2025 Magnesium [Mass/Vol] 1.7 mg/dL 1.5-2.2 [facility] Magnesium measurement (mass/ volume)Ordered By: Orlando Maldonado on 03-19-2025 Magnesium (Unsp spec) [Mass/Vol] 1.7 mg/dL 1.5-2.2 [facility] TSH DL <= 0.005 mIU/L QnOrde red By: Orlando Maldonado on 03-19-2025 Thyroid Stimulating Hormone (TSH) 0.905 uIU/mL 0.300-4.200 [facility] TSH Qn 0.905 uIU/mL 0.300-4.200 [facility] Troponin T.cardiac High sens itivity method [Mass/Vol]Ordered By: Remus Ungur on 03-19-2025 Troponin T High Sensitivity 2 Hour 10 ng/L <14 [facility] Troponin T High Sensitivity 19 ng/L High <14 [facility] Troponin T.cardiac [Mass/vol ume] in Serum or Plasma by High sensitivity methodOrdered By: Juan F Curran on 03-19-2025 Troponin T.cardiac High sensitivity method [Mass/Vol] 10 ng/L <14 [facility] Troponin T.cardiac High sensitivity method [Mass/Vol] 19 ng/L High <14 [facility] Vitamin B12 ser/plasOrdered By: Orlando Maldonado on 03-19-2025 Cobalamin (Vitamin B12) [Mass/Vol] 473 pg/mL 180-914 [facility] Anion gap in Serum or Plasma Ordered By: Becca Dillard on 03-18-2025 Anion gap [Moles/Vol] 8 mmol/L - [facility] BUN/creatinine ratioOrdered By: Becca Dillard on 03-18-2025 Urea nitrogen/Creatinine [Mass ratio] 16.6 mg/mg - [facility] Basic Metabolic Profile (BMP )on 03-18-2025 BUN/CRE 16.6 RATIO Normal 09-14 [facility] Comment on above: Performed By: #### L 503.7505, L500.4100, L500.3400, L500.2500 ####[facility] [address] [place], [address] Calcium [Mass/Vol] 9.4 mg/dL Normal 7.6-11.0 [facility] Comment on above: Performed By: #### L 503.7505, L500.4100, L500.3400, L500.2500 ####[facility] [address] [place], [address] Chloride [Moles/Vol] 91 mmol/L Low 98-108 [facility] Comment on above: Performed By: #### L 503.7505, L500.4100, L500.3400, L500.2500 ####[facility] [address] [place], [address] CO2 [Moles/Vol] 37.8 mmol/L High 21.0-32.0 [facility] Comment on above: Performed By: #### L 503.7505, L500.4100, L500.3400, L500.2500 ####[facility] [address] [place], [address] Creatinine [Mass/Vol] 0.68 mg/dL Low 0.70-1.20 [facility] Comment on above: Performed By: #### L 503.7505, L500.4100, L500.3400, L500.2500 ####[facility] [address] [place], [address] GAP 8 Normal 5-15 [facility] Comment on above: Performed By: #### L 503.7505, L500.4100, L500.3400, L500.2500 ####[facility] [address] [place], [address] GFR/1.73 sq M.predicted among non-blacks MDRD (S/P/Bld) [Vol rate/Area] 93 mL/min/{1.73_m2} Normal >60 [facility] Comment on above: Result Comment: mL/m in/1.73m2 CKD-EPI Creatinine Equation (2020) Performed By: #### L 503.7505, L500.4100, L500.3400, L500.2500 ####[facility] [address] [place], [address] Glucose [Mass/Vol] 147 mg/dL High 70-99 [facility] Comment on above: Performed By: #### L 503.7505, L500.4100, L500.3400, L500.2500 ####[facility] [address] [place], [address] Potassium [Moles/Vol] 5.1 mmol/L Normal 3.3-5.1 [facility] Comment on above: Performed By: #### L 503.7505, L500.4100, L500.3400, L500.2500 ####[facility] [address] [place], [address] Sodium [Moles/Vol] 137 mmol/L Normal 133-145 [facility] Comment on above: Performed By: #### L 503.7505, L500.4100, L500.3400, L500.2500 ####[facility] [address] [place], [address] Urea nitrogen [Mass/Vol] 11 mg/dL Normal 4-19 [facility] Comment on above: Performed By: #### L 503.7505, L500.4100, L500.3400, L500.2500 ####[facility] [address] [place], [address] Bilirubin directOrdered By: Becca Dillard on 03-18-2025 Bilirubin.direct [Mass/Vol] 0.17 mg/dL 0.00-0.30 [facility] Bilirubin, totalOrdered By: Becca Dillard on 03-18-2025 Bilirubin [Mass/Vol] 0.33 mg/dL 0.00-1.30 [facility] Calculated very low density lipoprotein (VLDL) cholesterol measurementOrdered By: Becca Dillard on 03-18-2025 Calculated very low density lipoprotein (VLDL) cholesterol measurement 13 mg/dL - [facility] VLDL Cholesterol 13 mg/dL -40 [facility] Carbon dioxide, total [Moles /volume] in Central venous bloodOrdered By: Becca Dillard on 03-18-2025 CO2 [Moles/Vol] 37.8 mmol/L High 21.0-32.0 [facility] Chloride assayOrdered By: Sergio Dillard on 03-18-2025 Chloride [Moles/Vol] 91 mmol/L Low 98-108 [facility] GFR/1.73 sq M.predicted lisa g non-blacks MDRD (S/P/Bld) [Vol rate/Area]Ordered By: Becca Dillard on 03-18-2025 Estimated GFR (MDRD) Non-Af Amer 93 >60 [facility] Comment on above: mL/min/1.73m2 CKD-EP I Creatinine Equation (2020) Glomerular filtration rate ( GFR) estimation/1.73 sq m using serum, plasma, or whole bOrdered By: Becca Dillard on 03-18-2025 GFR/1.73 sq M.predicted among non-blacks MDRD (S/P/Bld) [Vol rate/Area] 93 mL/min/{1.73_m2} >60 [facility] Comment on above: mL/min/1.73m2 CKD-EP I Creatinine Equation (2020) L503.7505on 03-18-2025 Natriuretic peptide B (Bld) [Mass/Vol] 1006 pg/mL High <=900 [facility] Comment on above: Result Comment: Hear t Failure Unlikely: < 300 pg/mLHeart Failure Likely< 50 Years: > 450 pg/mL50-75 Years: > 900 pg/mL>75 Years: > 1800 pg/mL Performed By: #### L 503.7505, L500.4100, L500.3400, L500.2500 ####[facility] [address] [place], [place], [id number] LDL calc ser/plasOrdered By: Becca Dillard on 03-18-2025 Cholesterol in LDL [Mass/Vol] 89 mg/dL [facility] Comment on above: Fnzfziwqfw=626-194 m g/dL & Higher Kgjx=962 mg/dL or greater LDL Cholesterol, Calculated 89 mg/dL [facility] Comment on above: Kekaulncot=430-869 m g/dL & Higher Gkiw=377 mg/dL or greater Laboratory - Chemistry and C hemistry - challengeOrdered By: Becca Dillard on 03-18-2025 AST [Catalytic activity/Vol] 15 U/L <32 [facility] Lipid Profileon 03-18-2025 CHOL:HDL 2.59 Normal [facility] Comment on above: Performed By: #### L 503.7505, L500.4100, L500.3400, L500.2500 ####[facility] [address] [place], [address] Cholesterol [Mass/Vol] 167 mg/dL Normal <=200 [facility] Comment on above: Result Comment: Chol esterol level, Desirable <200 mg/dLBorderline high cholesterol 200-239 mg/dLHigh cholesterol >=240 mg/dLRecommendations of the NCEP Adult Treatment Panel for thefollowing risk-cutoff thresholds for the [place] [facility]. Performed By: #### L 503.7505, L500.4100, L500.3400, L500.2500 ####[facility] [address] [place], [address] Cholesterol in HDL [Mass/Vol] 65 mg/dL Normal [facility] Comment on above: Result Comment: Leslie onal Cholesterol Education Program (NCEP) guidelines:<40 mg/dL: Low HDL-cholesterol (major risk factor for CHD)>= 60 mg/dL: High HDL-cholesterol (negative risk factor forCHD)HDL-cholesterol is affected by a number of factors, e.g.smoking, exercise, hormones, sex and age. Performed By: #### L 503.7505, L500.4100, L500.3400, L500.2500 ####[facility] [address] [place], [address] Cholesterol in LDL [Mass/Vol] 89 mg/dL Normal [facility] Comment on above: Result Comment: Bord mtakyj=831-514 mg/dL Higher Wsvy=164 mg/dL or greater Performed By: #### L 503.7505, L500.4100, L500.3400, L500.2500 ####[facility] [address] [place], [address] Cholesterol in VLDL [Mass/Vol] 13 mg/dL Normal 5-40 [facility] Comment on above: Performed By: #### L 503.7505, L500.4100, L500.3400, L500.2500 ####[facility] [address] [place], [address] Triglyceride [Mass/Vol] 66 mg/dL Normal [facility] Comment on above: Result Comment: The drugs N-Acetylcysteine and Metamizole may falselydepress this assay.Normal range: <150 mg/dLBorderline High: 150-199 mg/dLHigh: 200-499 mg/dLVery High: >500 mg/dL Performed By: #### L 503.7505, L500.4100, L500.3400, L500.2500 ####[facility] [address] [place], [address] Liver Profileon 03-18-2025 Albumin [Mass/Vol] 3.7 g/dL Normal 3.4-4.8 [facility] Comment on above: Performed By: #### L 503.7505, L500.4100, L500.3400, L500.2500 ####[facility] [address] [place], [address] ALK PHOS 72 U/L Normal 35-104 [facility] Comment on above: Performed By: #### L 503.7505, L500.4100, L500.3400, L500.2500 ####[facility] [address] [place], [address] ALT [Catalytic activity/Vol] 8 U/L Normal <=34 [facility] Comment on above: Performed By: #### L 503.7505, L500.4100, L500.3400, L500.2500 ####[facility] [address] [place], [address] AST [Catalytic activity/Vol] 15 U/L Normal <=31 [facility] Comment on above: Performed By: #### L 503.7505, L500.4100, L500.3400, L500.2500 ####[facility] [address] [place], [address] Bilirubin [Mass/Vol] 0.33 mg/dL Normal 0.00-1.30 [facility] Comment on above: Performed By: #### L 503.7505, L500.4100, L500.3400, L500.2500 ####[facility] [address] [place], [address] Bilirubin.direct [Mass/Vol] 0.17 mg/dL Normal 0.00-0.30 [facility] Comment on above: Performed By: #### L 503.7505, L500.4100, L500.3400, L500.2500 ####[facility] [address] [place], [address] Globulin (S) [Mass/Vol] 3.4 g/dL Normal 2.2-4.2 [facility] Comment on above: Performed By: #### L 503.7505, L500.4100, L500.3400, L500.2500 ####[facility] [address] [place], [address] T PROT 7.1 g/dL Normal 5.9-8.4 [facility] Comment on above: Performed By: #### L 503.7505, L500.4100, L500.3400, L500.2500 ####[facility] [address] [place], [address] Natriuretic peptide.B prohor inessa N-Terminal [Mass/Vol]Ordered By: Becca Dillard on 03-18-2025 Natriuretic peptide B (Bld) [Mass/Vol] 1006 pg/mL High <900 [facility] Comment on above: Heart Failure Unlike ly: < 300 pg/mLHeart Failure Likely< 50 Years: > 450 pg/mL50-75 Years: > 900 pg/mL>75 Years: > 1800 pg/mL Natriuretic peptide.B prohor inessa N-Terminal [Mass/volume] in Serum or PlasmaOrdered By: Becca Dillard on 03-18-2025 Natriuretic peptide.B prohormone N-Terminal [Mass/Vol] 1006 pg/mL High <900 [facility] Comment on above: Heart Failure Unlike ly: < 300 pg/mLHeart Failure Likely< 50 Years: > 450 pg/mL50-75 Years: > 900 pg/mL>75 Years: > 1800 pg/mL No Panel InformationOrdered By: Becca Dillard on 03-18-2025 15 U/L <32 [facility] Potassium (Unsp spec) [Mass/ Vol]Ordered By: Becca Dillard on 03-18-2025 Potassium [Moles/Vol] 5.1 mmol/L 3.3-5.1 [facility] Potassium measurement (mass/ volume)Ordered By: Becca Dillard on 03-18-2025 Potassium (Unsp spec) [Mass/Vol] 5.1 mmol/L 3.3-5.1 [facility] Screening total cholesterol/ high density lipoprotein (HDL) cholesterol ratioOrdered By: Becca Dillard on 03-18-2025 Cholesterol.total/Choles terol in HDL [Mass ratio] 2.59 {ratio} [facility] Serum creatinine measurement (mass/volume)Ordered By: Becca Dillard on 03-18-2025 Creatinine [Mass/Vol] 0.68 mg/dL Low 0.70-1.20 [facility] Serum globulin measurementOr dered By: Becca Dillard on 03-18-2025 Globulin (S) [Mass/Vol] 3.4 g/dL 2.2-4.[address] [facility] Serum glucose measurement (m ass/volume)Ordered By: Becca Dillard on 03-18-2025 Glucose [Mass/Vol] 147 mg/dL High 70-99 [facility] Serum or plasma alanine garza otransferase (ALT) measurementOrdered By: Becca Dillard on 03-18-2025 ALT [Catalytic activity/Vol] 8 U/L <35 [facility] Serum or plasma albumin diallo urement (mass/volume)Ordered By: Becca Dillard on 03-18-2025 Albumin [Mass/Vol] 3.7 g/dL 3.4-4.8 [facility] Serum or plasma alkaline pati sphatase measurementOrdered By: Becca Dillard on 03-18-2025 ALP [Catalytic activity/Vol] 72 U/L 35-104 [facility] Serum or plasma calcium diallo urement (mass/volume)Ordered By: Becca Dillard on 03-18-2025 Calcium [Mass/Vol] 9.4 mg/dL 7.6-11.0 [facility] Serum or plasma cholesterol in HDL measurement (mass/volume)Ordered By: Becca Dillard on 03-18-2025 Cholesterol in HDL [Mass/Vol] 65 mg/dL >40 [facility] Comment on above: National Cholesterol Education Program (NCEP) guidelines:<40 mg/dL: Low HDL-cholesterol (major risk factor for CHD)>= 60 mg/dL: High HDL-cholesterol (negative risk factor for CHD)HDL-cholesterol is affected by a number of factors, e.g. smoking, exercise, hormones, sex and age. Serum or plasma cholesterol measurement (mass/volume)Ordered By: Becca Dillard on 03-18-2025 Cholesterol [Mass/Vol] 167 mg/dL <201 [facility] Comment on above: Cholesterol level, D esirable <200 mg/dLBorderline high cholesterol 200-239 mg/dLHigh cholesterol >=240 mg/dLRecommendations of the NCEP Adult Treatment Panel for the following risk-cutoff thresholds for the [place] population. Serum or plasma urea nitroge n measurement (mass/volume)Ordered By: Becca Dillard on 03-18-2025 Urea nitrogen [Mass/Vol] 11 mg/dL 4-19 [facility] Sodium levelOrdered By: Faith Dillard on 03-18-2025 Sodium [Moles/Vol] 137 mmol/L 133-145 [facility] Total proteinOrdered By: Reynold Dillard on 03-18-2025 Protein [Mass/Vol] 7.1 g/dL 5.9-8.4 [facility] Triglycerides measurementOrd ered By: Bceca Dillard on 03-18-2025 Triglyceride [Mass/Vol] 66 mg/dL <[address] [facility] Comment on above: The drugs N-Acetylcy steine and Metamizole may falsely depress this assay. Normal range: <150 mg/dLBorderline High: 150-199 mg/dLHigh: 200-499 mg/dLVery High: >500 mg/dL Absolute lymphocyte countOrd ered By: Christy Perea on 02-05-2025 Lymphocytes Auto (Unsp spec) [#/Vol] 2.14 10*3/uL 0.83-4.51 [facility] Absolute neutrophil countOrd ered By: Christy Perea on 02-05-2025 Neutrophils (Bld) [#/Vol] 7.5 10*3/uL 2.0-7.7 [facility] Anion gap in Serum or Plasma Ordered By: Christy Perea on 02-05-2025 Anion gap [Moles/Vol] 8 mmol/L 5-15 [facility] Automated lymphocyte count a s percentage of total leukocytesOrdered By: Christy Perea on 02-05-2025 Lymphocytes/100 WBC Auto (Unsp spec) 19.2 % - [facility] BUN/creatinine ratioOrdered By: Christy Perea on 02-05-2025 Urea nitrogen/Creatinine [Mass ratio] 20.6 mg/mg High 10- [facility] Basophil percentageOrdered B y: Christy Perea on 02-05-2025 Basophils/100 WBC (Bld) 0.4 % 0-[address] [facility] Bilirubin, totalOrdered By: Christy Perea on 02-05-2025 Bilirubin [Mass/Vol] 0.25 mg/dL 0.00-1.30 [facility] CBC W/Diff, Automatedon 01-24 Absolute Lymph 2.14 X10 3/uL Normal 0.83-4.51 [facility] Comment on above: Performed By: #### L 500.4050, L501.6710, L501.9520, L101.9900, L100.0100 ####[facility] [address] [place], [address] Absolute Neut 7.5 X10 3/uL Normal 2.0-7.7 [facility] Comment on above: Performed By: #### L 500.4050, L501.6710, L501.9520, L101.9900, L100.0100 ####[facility] [address] [place], [address] Basophils/100 WBC (Bld) 0.4 % Normal 0-[address] [facility] Comment on above: Performed By: #### L 500.4050, L501.6710, L501.9520, L101.9900, L100.0100 ####[facility] [address] [place], [address] Eosinophils/100 WBC (Bld) 2.2 % Normal 0-5 [facility] Comment on above: Performed By: #### L 500.4050, L501.6710, L501.9520, L101.9900, L100.0100 ####[facility] [address] [place], [address] Erythrocyte distribution width (RBC) [Ratio] 14.6 % Normal 11.6-14.6 [facility] Comment on above: Performed By: #### L 500.4050, L501.6710, L501.9520, L101.9900, L100.0100 ####[facility] [address] [place], [address] Hematocrit (Bld) [Volume fraction] 40.0 % Normal 37-47 [facility] Comment on above: Performed By: #### L 500.4050, L501.6710, L501.9520, L101.9900, L100.0100 ####[facility] [address] [place], [address] Hemoglobin (Bld) [Mass/Vol] 12.1 g/dL Normal 12.0-15.0 [facility] Comment on above: Performed By: #### L 500.4050, L501.6710, L501.9520, L101.9900, L100.0100 ####[facility] [address] [place], [address] IG% 0.400 Normal 0.0-0.9 [facility] Comment on above: Result Comment: IG% - Immature Granulocytes (promyelocytes, myelocytes andmetamyelocytes) > 1% indicates that a LEFT SHIFT is Present. Performed By: #### L 500.4050, L501.6710, L501.9520, L101.9900, L100.0100 ####[facility] [address] [place], [address] Lymphocytes/100 WBC (Bld) 19.2 % Normal 19-41 [facility] Comment on above: Performed By: #### L 500.4050, L501.6710, L501.9520, L101.9900, L100.0100 ####[facility] [address] [place], [address] MCH (RBC) [Entitic mass] 28.2 pg Normal 27.0-32.0 [facility] Comment on above: Performed By: #### L 500.4050, L501.6710, L501.9520, L101.9900, L100.0100 ####[facility] [address] [place], [address] MCHC (RBC) [Mass/Vol] 30.3 g/dL Low 32-36 [facility] Comment on above: Performed By: #### L 500.4050, L501.6710, L501.9520, L101.9900, L100.0100 ####[facility] [address] [place], [address] MCV (RBC) [Entitic vol] 93.2 fL Normal 81-99 [facility] Comment on above: Performed By: #### L 500.4050, L501.6710, L501.9520, L101.9900, L100.0100 ####[facility] [address] [place], [address] Monocytes/100 WBC (Bld) 10.7 % High 0-[address] [facility] Comment on above: Performed By: #### L 500.4050, L501.6710, L501.9520, L101.9900, L100.0100 ####[facility] [address] [place], [address] Neutrophils/100 WBC (Bld) 67.1 % Normal 47-70 [facility] Comment on above: Performed By: #### L 500.4050, L501.6710, L501.9520, L101.9900, L100.0100 ####[facility] [address] [place], [address] Nucleated RBC (Bld) [#/Vol] 0 10*3/uL Normal 0-5 [facility] Comment on above: Performed By: #### L 500.4050, L501.6710, L501.9520, L101.9900, L100.0100 ####[facility] [address] [place], [address] Platelet mean volume (Bld) [Entitic vol] 10.1 fL Normal 6.2-12.0 [facility] Comment on above: Performed By: #### L 500.4050, L501.6710, L501.9520, L101.9900, L100.0100 ####[facility] [address] [place], [address] Platelets (Bld) [#/Vol] 310 10*3/uL Normal 150-450 [facility] Comment on above: Performed By: #### L 500.4050, L501.6710, L501.9520, L101.9900, L100.0100 ####[facility] [address] [place], [address] RBC (Bld) [#/Vol] 4.29 10*6/uL Normal 4.2-5.4 [facility] Comment on above: Performed By: #### L 500.4050, L501.6710, L501.9520, L101.9900, L100.0100 ####[facility] [address] [place], [address] RDW SD 50.0 fl High 35.1-43.9 [facility] Comment on above: Performed By: #### L 500.4050, L501.6710, L501.9520, L101.9900, L100.0100 ####[facility] [address] [place], [address] WBC (Bld) [#/Vol] 11.2 10*3/uL High 4.4-11.0 [facility] Comment on above: Performed By: #### L 500.4050, L501.6710, L501.9520, L101.9900, L100.0100 ####[facility] [address] [place], [address] CRPon 02-05-2025 C-REACTIVE PROT 6.40 mg/L High 0.0-3.0 [facility] Comment on above: Performed By: #### L 500.4050, L501.6710, L501.9520, L101.9900, L100.0100 ####[facility] [address] [place], [address] CRP [Mass/Vol]Ordered By: Carol Perea on 02-05-2025 C-Reactive Protein Extended Range 6.40 mg/L High 0.0-3.0 [facility] Carbon dioxide, total [Moles /volume] in Central venous bloodOrdered By: Christy Perea on 02-05-2025 CO2 [Moles/Vol] 32.3 mmol/L High 21.0-32.0 [facility] Chloride assayOrdered By: Carol Perea on 02-05-2025 Chloride [Moles/Vol] 98 mmol/L 98-108 [facility] Comprehensive Metabolic Prof ilon 02-05-2025 Albumin [Mass/Vol] 4.0 g/dL Normal 3.4-4.8 [facility] Comment on above: Performed By: #### L 500.4050, L501.6710, L501.9520, L101.9900, L100.0100 ####[facility] [address] [place], [address] Albumin/Globulin [Mass ratio] 1.3 {ratio} Normal 0.9-2.4 [facility] Comment on above: Performed By: #### L 500.4050, L501.6710, L501.9520, L101.9900, L100.0100 ####[facility] [address] [place], [address] ALK PHOS 63 U/L Normal 35-104 [facility] Comment on above: Performed By: #### L 500.4050, L501.6710, L501.9520, L101.9900, L100.0100 ####[facility] [address] [place], [address] ALT [Catalytic activity/Vol] 12 U/L Normal <=34 [facility] Comment on above: Performed By: #### L 500.4050, L501.6710, L501.9520, L101.9900, L100.0100 ####[facility] [address] [place], [address] AST [Catalytic activity/Vol] 16 U/L Normal <=31 [facility] Comment on above: Performed By: #### L 500.4050, L501.6710, L501.9520, L101.9900, L100.0100 ####[facility] [address] [place], [address] Bilirubin [Mass/Vol] 0.25 mg/dL Normal 0.00-1.30 [facility] Comment on above: Performed By: #### L 500.4050, L501.6710, L501.9520, L101.9900, L100.0100 ####[facility] [address] [place], [address] BUN/CRE 20.6 RATIO High 10-20 [facility] Comment on above: Performed By: #### L 500.4050, L501.6710, L501.9520, L101.9900, L100.0100 ####[facility] [address] [place], [address] Calcium [Mass/Vol] 9.8 mg/dL Normal 7.6-11.0 [facility] Comment on above: Performed By: #### L 500.4050, L501.6710, L501.9520, L101.9900, L100.0100 ####[facility] [address] [place], [address] Chloride [Moles/Vol] 98 mmol/L Normal 98-108 [facility] Comment on above: Performed By: #### L 500.4050, L501.6710, L501.9520, L101.9900, L100.0100 ####[facility] [address] [place], [address] CO2 [Moles/Vol] 32.3 mmol/L High 21.0-32.0 [facility] Comment on above: Performed By: #### L 500.4050, L501.6710, L501.9520, L101.9900, L100.0100 ####[facility] [address] [place], [address] Creatinine [Mass/Vol] 0.69 mg/dL Low 0.70-1.20 [facility] Comment on above: Performed By: #### L 500.4050, L501.6710, L501.9520, L101.9900, L100.0100 ####[facility] [address] [place], [address] GAP 8 Normal 5-15 [facility] Comment on above: Performed By: #### L 500.4050, L501.6710, L501.9520, L101.9900, L100.0100 ####[facility] [address] [place], [address] GFR/1.73 sq M.predicted among non-blacks MDRD (S/P/Bld) [Vol rate/Area] 93 mL/min/{1.73_m2} Normal >60 [facility] Comment on above: Result Comment: mL/m in/1.73m2 CKD-EPI Creatinine Equation (2020) Performed By: #### L 500.4050, L501.6710, L501.9520, L101.9900, L100.0100 ####[facility] [address] [place], [address] Globulin (S) [Mass/Vol] 3.2 g/dL Normal 2.2-4.2 [facility] Comment on above: Performed By: #### L 500.4050, L501.6710, L501.9520, L101.9900, L100.0100 ####[facility] [address] [place], [address] Glucose [Mass/Vol] 98 mg/dL Normal 70-99 [facility] Comment on above: Performed By: #### L 500.4050, L501.6710, L501.9520, L101.9900, L100.0100 ####[facility] [address] [place], [address] Potassium [Moles/Vol] 4.4 mmol/L Normal 3.3-5.1 [facility] Comment on above: Performed By: #### L 500.4050, L501.6710, L501.9520, L101.9900, L100.0100 ####[facility] [address] [place], [address] Sodium [Moles/Vol] 139 mmol/L Normal 133-145 [facility] Comment on above: Performed By: #### L 500.4050, L501.6710, L501.9520, L101.9900, L100.0100 ####[facility] [address] [place], [place], [id number] T PROT 7.1 g/dL Normal 5.9-8.4 [facility] Comment on above: Performed By: #### L 500.4050, L501.6710, L501.9520, L101.9900, L100.0100 ####[facility] [address] [place], [address] Urea nitrogen [Mass/Vol] 14 mg/dL Normal 4-19 [facility] Comment on above: Performed By: #### L 500.4050, L501.6710, L501.9520, L101.9900, L100.0100 ####[facility] [address] [place], [address] Eosinophil percentageOrdered By: Christy Perea on 02-05-2025 Eosinophils/100 WBC (Bld) 2.2 % 0-5 [facility] Erythrocyte Sed Rateon 02-05 SED RATE 55 mm/hr High 0-30 [facility] Comment on above: Performed By: #### L 500.4050, L501.6710, L501.9520, L101.9900, L100.0100 ####[facility] [address] [place], [place], [address] Erythrocyte distribution wid th ratioOrdered By: Christy Perea on 02-05-2025 Erythrocyte distribution width (RBC) [Ratio] 14.6 % 11.6-14.6 [facility] Erythrocyte distribution wid th standard deviationOrdered By: Christy Perea on 02-05-2025 Erythrocyte distribution width (RBC) [Entitic vol] 50.0 fL High 35.1-43.9 [facility] Erythrocyte distribution width (RBC) [Ratio] 50.0 fl High 35.1-43.9 [facility] Erythrocyte sedimentation ra teOrdered By: Christy Perea on 02-05-2025 ESR (Bld) [Velocity] 55 mm/h High 0-30 [facility] GFR/1.73 sq M.predicted lisa g non-blacks MDRD (S/P/Bld) [Vol rate/Area]Ordered By: Christy Perea on 02-05-2025 Estimated GFR (MDRD) Non-Af Amer 93 >60 [facility] Comment on above: mL/min/1.73m2 CKD-EP I Creatinine Equation (2020) Glomerular filtration rate ( GFR) estimation/1.73 sq m using serum, plasma, or whole bOrdered By: Christy Perea on 02-05-2025 GFR/1.73 sq M.predicted among non-blacks MDRD (S/P/Bld) [Vol rate/Area] 93 mL/min/{1.73_m2} >60 [facility] Comment on above: mL/min/1.73m2 CKD-EP I Creatinine Equation (2020) Hematocrit Auto (Bld) [Volum e fraction]Ordered By: Christy Perea on 02-05-2025 Hematocrit (Bld) [Volume fraction] 40.0 % 37-47 [facility] Hemoglobin measurementOrdere d By: Christy Perea on 02-05-2025 Hemoglobin (Bld) [Mass/Vol] 12.1 g/dL 12.0-15.0 [facility] Immature granulocytes/100 WB C Auto (Bld)Ordered By: Christy Perea on 02-05-2025 Immature granulocytes/100 WBC (Bld) 0.400 % 0.0-0.9 [facility] Comment on above: IG% - Immature Granu locytes (promyelocytes, myelocytes and metamyelocytes) > 1% indicates that a LEFT SHIFT is Present. Laboratory - Chemistry and C hemistry - challengeOrdered By: Christy Perea on 02-05-2025 AST [Catalytic activity/Vol] 16 U/L <32 [facility] Lymphocytes Auto (Unsp spec) [#/Vol]Ordered By: Christy Perea on 02-05-2025 Lymphocytes (Bld) [#/Vol] 2.14 10*3/uL 0.83-4.51 [facility] Lymphocytes/100 WBC Auto (Un sp spec)Ordered By: Christy Perea on 02-05-2025 Lymphocytes/100 WBC (Bld) 19.2 % 19-41 [facility] MCV (mean corpuscular volume ) determinationOrdered By: Christy Perea on 02-05-2025 MCV (RBC) [Entitic vol] 93.2 fL 81-[address] [facility] Mean corpuscular hemoglobin (MCH) determinationOrdered By: Christy Perea on 02-05-2025 MCH (RBC) [Entitic mass] 28.2 pg 27.0-32.0 [facility] Mean corpuscular hemoglobin concentration (MCHC) determinationOrdered By: Christy Perea on 02-05-2025 MCHC (RBC) [Mass/Vol] 30.3 g/dL Low 32-36 [facility] Mean platelet volume determi nationOrdered By: Christy Perea on 02-05-2025 Platelet mean volume (Bld) [Entitic vol] 10.1 fL 6.2-12.0 [facility] Monocyte percentageOrdered B y: Christy Perea on 02-05-2025 Monocytes/100 WBC (Bld) 10.7 % High 0-[address] [facility] Neutrophil percentageOrdered By: Christy Perea on 02-05-2025 Neutrophils/100 WBC (Bld) 67.1 % 47-70 [facility] No Panel InformationOrdered By: Christy Perea on 02-05-2025 16 U/L <32 [facility] Nucleated red blood cell per centageOrdered By: Christy Perea on 02-05-2025 Nucleated RBC/100 WBC (Bld) [Ratio] 0 % 0-5 [facility] Platelet countOrdered By: Carol Perea on 02-05-2025 Platelets (Bld) [#/Vol] 310 10*3/uL 150-450 [facility] Potassium (Unsp spec) [Mass/ Vol]Ordered By: Christy Perea on 02-05-2025 Potassium [Moles/Vol] 4.4 mmol/L 3.3-5.1 [facility] Potassium measurement (mass/ volume)Ordered By: Christy Perea on 02-05-2025 Potassium (Unsp spec) [Mass/Vol] 4.4 mmol/L 3.3-5.1 [facility] RBC Auto (Bld) [#/Vol]Ordere d By: Christy Perea on 02-05-2025 RBC (Bld) [#/Vol] 4.29 10*6/uL 4.2-5.4 [facility] Serum creatinine measurement (mass/volume)Ordered By: Christy Perea on 02-05-2025 Creatinine [Mass/Vol] 0.69 mg/dL Low 0.70-1.20 [facility] Serum globulin measurementOr dered By: Christy Perea on 02-05-2025 Globulin (S) [Mass/Vol] 3.2 g/dL 2.2-4.[address] [facility] Serum glucose measurement (m ass/volume)Ordered By: Christy Perea on 02-05-2025 Glucose [Mass/Vol] 98 mg/dL 70-99 [facility] Serum or plasma C reactive p rotein measurement (mass/volume)Ordered By: Christy Perea on 02-05-2025 CRP [Mass/Vol] 6.40 mg/L High 0.0-3.0 [facility] Serum or plasma alanine garza otransferase (ALT) measurementOrdered By: Christy Perea on 02-05-2025 ALT [Catalytic activity/Vol] 12 U/L <35 [facility] Serum or plasma albumin diallo urement (mass/volume)Ordered By: Christy Perea on 02-05-2025 Albumin [Mass/Vol] 4.0 g/dL 3.4-4.8 [facility] Serum or plasma albumin/glob ulin mass ratioOrdered By: Christy Perea on 02-05-2025 Albumin/Globulin [Mass ratio] 1.3 {ratio} 0.9-2.4 [facility] Serum or plasma alkaline pati sphatase measurementOrdered By: Christy Perea on 02-05-2025 ALP [Catalytic activity/Vol] 63 U/L 35-104 [facility] Serum or plasma calcium diallo urement (mass/volume)Ordered By: Christy Perea on 02-05-2025 Calcium [Mass/Vol] 9.8 mg/dL 7.6-11.0 [facility] Serum or plasma urea nitroge n measurement (mass/volume)Ordered By: Christy Perea on 02-05-2025 Urea nitrogen [Mass/Vol] 14 mg/dL 4-19 [facility] Sodium levelOrdered By: Christy Perea on 02-05-2025 Sodium [Moles/Vol] 139 mmol/L 133-145 [facility] TSH DL <= 0.005 mIU/L QnOrde red By: Christy Perea on 02-05-2025 Thyroid Stimulating Hormone (TSH) 2.170 uIU/mL 0.300-4.200 [facility] TSH Qn 2.170 uIU/mL 0.300-4.200 [facility] Thyroid Stim Hormone (TSH)on 02-05-2025 TSH 2.170 uIU/mL Normal 0.300-4.200 [facility] Comment on above: Performed By: #### L 500.4050, L501.6710, L501.9520, L101.9900, L100.0100 ####[facility] [id number] [place], [place], [address] Total proteinOrdered By: Christy Perea on 02-05-2025 Protein [Mass/Vol] 7.1 g/dL 5.9-8.4 [facility] White blood cell (WBC) count Ordered By: Christy Perea on 02-05-2025 WBC (Bld) [#/Vol] 11.2 10*3/uL High 4.4-11.0 [facility] Urine Cultureon 12-27-2024 URC Normal [facility] Comment on above: Performed By: #### M 100.2200 ####[facility] [id number] [place], [place], [id number] Urine cultureOrdered By: Chadwick Ashton on 12-25-2024 Bacteria identified Cx Nom (U) Klebsiella pneumoniae sp pneum Abnormal [facility] Orthopedic Visit Reporton Orthopedic Visit Report Normal [facility] Shoulder min 2 Viewson 12-04 Shoulder min 2 Views Normal [facility] Cardiology Visit Reporton Cardiology Visit Report Normal [facility] Re-Evaluation - PT (1)on Re-Evaluation - PT (1) Normal [facility] SCRN MAMM (CAD)W/TOM BILATo n 10-02-2024 SCRN MAMM (CAD)W/TOM BILAT Normal [facility] Cardiology Visit Reporton Cardiology Visit Report Normal [facility] Orthopedic Visit Reporton Orthopedic Visit Report Normal [facility] Shoulder min 2 Viewson 09-30 Shoulder min 2 Views Normal [facility] Absolute lymphocyte countOrd ered By: Whitney Espitia on 03-28-2024 Lymphocytes Auto (Unsp spec) [#/Vol] 1.63 10*3/uL 0.83-4.51 [facility] Activated partial thrombopla stin time (aPTT) in platelet poor plasma by coagulation aOrdered By: Whitney Espitia on 03-28-2024 aPTT Coag (PPP) [Time] 29.1 s 24.1-36.2 [facility] Automated lymphocyte count a s percentage of total leukocytesOrdered By: Whitney Espitia on 03-28-2024 Lymphocytes/100 WBC Auto (Unsp spec) 19.0 % 19-41 [facility] Basophil percentageOrdered B y: Whitney Espitia on 03-28-2024 Basophils/100 WBC (Bld) 0.4 % 0-1 [facility] Chloride [Moles/Vol] 98 mmol/L 98-107 [facility] Eosinophils/100 WBC (Bld) 3.4 % 0-5 [facility] Glucose [Mass/Vol] 95 mg/dL 74-106 [facility] Hemoglobin (Bld) [Mass/Vol] 12.0 g/dL 12.0-15.0 [facility] Monocytes/100 WBC (Bld) 10.4 % 0-10 [facility] Neutrophils (Bld) [#/Vol] 5.7 10*3/uL 2.0-7.7 [facility] Neutrophils/100 WBC (Bld) 66.4 % 47-70 [facility] Potassium [Moles/Vol] 4.4 mmol/L 3.5-5.1 [facility] Sodium [Moles/Vol] 135 mmol/L 136-145 [facility] WBC (Bld) [#/Vol] 8.6 10*3/uL 4.4-11.0 [facility] Determination of erythrocyte mean corpuscular volume (MCV)Ordered By: Whitney Espitia on 03-28-2024 MCV (RBC) [Entitic vol] 93.8 fL 81-[address] [facility] Erythrocyte distribution wid th ratioOrdered By: Whitney Espitia on 03-28-2024 Erythrocyte distribution width (RBC) [Ratio] 14.9 % 11.6-14.6 [facility] Erythrocyte distribution wid th standard deviationOrdered By: Whitney Espitia on 03-28-2024 Erythrocyte distribution width (RBC) [Entitic vol] 51.7 fL 35.1-43.9 [facility] Hematocrit Auto (Bld) [Volum e fraction]Ordered By: Whitney Espitia on 03-28-2024 Hematocrit (Bld) [Volume fraction] 40.7 % 37-47 [facility] Immature granulocytes/100 WB C Auto (Bld)Ordered By: Whitney Espitia on 03-28-2024 Immature granulocytes/100 WBC (Bld) 0.400 % 0.0-0.9 [facility] Comment on above: IG% - Immature Granu locytes (promyelocytes, myelocytes and metamyelocytes) > 1% indicates that a LEFT SHIFT is Present. Laboratory - Chemistry and C hemistry - challengeOrdered By: Whitney Espitia on 03-28-2024 CO2 [Moles/Vol] 38.0 mmol/L 21.0-32.0 [facility] Urea nitrogen/Creatinine [Mass ratio] 25.1 mg/mg 10-20 [facility] Laboratory - CoagulationOrde red By: Whitney Espitia on 03-28-2024 INR Coag (Bld) [Relative time] 1.2 {INR} [facility] PT Coag (PPP) [Time] 14.9 s 11.7-14.9 [facility] Laboratory - Hematology and Cell countsOrdered By: Whitney Espitia on 03-28-2024 MCH (RBC) [Entitic mass] 27.6 pg 27.0-32.0 [facility] MCHC (RBC) [Mass/Vol] 29.5 g/dL 32-36 [facility] Nucleated RBC/100 WBC (Bld) [Ratio] 0 % 0-5 [facility] Platelet mean volume (Bld) [Entitic vol] 9.6 fL 6.2-12.0 [facility] Platelets (Bld) [#/Vol] 289 10*3/uL 150-450 [facility] No Panel InformationOrdered By: Whitney Espitia on 03-28-2024 Estimated GFR (MDRD) Amer 97 mL/min >60 [facility] Comment on above: GFR Calc Estimated GFR (MDRD) Non-Af Amer 80 mL/min >60 [facility] Comment on above: Non- GFR Calc RBC Auto (Bld) [#/Vol]Ordere d By: Whitney Espitia on 03-28-2024 RBC (Bld) [#/Vol] 4.34 10*6/uL 4.2-5.4 [facility] Serum or plasma calcium diallo urement (mass/volume)Ordered By: Whitney Espitia on 03-28-2024 Calcium [Mass/Vol] 9.3 mg/dL 8.5-10.1 [facility] Serum or plasma creatinine m easurement (mass/volume)Ordered By: Whitney Espitia on 03-28-2024 Creatinine [Mass/Vol] 0.76 mg/dL 0.55-1.02 [facility] Comment on above: The validity of the calculated GFR & GFRAA in patients over 70 years has not been determined. Clinical correlation is essential. Serum or plasma urea nitroge n measurement (mass/volume)Ordered By: Whitney Espitia on 03-28-2024 Urea nitrogen [Mass/Vol] 19 mg/dL 7-18 [facility] Thin prep Papanicolaou smear with manual screeningOrdered By: Whitney Espitia on 03-28-2024 Thin prep Papanicolaou smear with manual screening -1 5-15 [facility] Absolute lymphocyte countOrd ered By: Dolores Martin on 01-21-2024 Lymphocytes Auto (Unsp spec) [#/Vol] 1.55 10*3/uL 0.83-4.51 [facility] Automated lymphocyte count a s percentage of total leukocytesOrdered By: Dolores Martin on 01-21-2024 Lymphocytes/100 WBC Auto (Unsp spec) 15.3 % 19-41 [facility] Basophil percentageOrdered B y: Dolores Martin on 01-21-2024 Basophils/100 WBC (Bld) 0.6 % 0-[address] [facility] Chloride [Moles/Vol] 104 mmol/L 98-107 [facility] Eosinophils/100 WBC (Bld) 2.5 % 0-5 [facility] Glucose [Mass/Vol] 104 mg/dL 74-106 [facility] Comment on above: Fasting Glucose resu lt from 100 to 125 mg/dL suggests IMPAIRED HOMEOSTASIS per A.D.A. criteria. Hemoglobin (Bld) [Mass/Vol] 12.5 g/dL 12.0-15.0 [facility] Monocytes/100 WBC (Bld) 9.3 % 0-[address] [facility] Neutrophils (Bld) [#/Vol] 7.3 10*3/uL 2.0-7.7 [facility] Neutrophils/100 WBC (Bld) 71.7 % 47-70 [facility] Potassium [Moles/Vol] 4.1 mmol/L 3.5-5.1 [facility] Sodium [Moles/Vol] 140 mmol/L 136-145 [facility] WBC (Bld) [#/Vol] 10.2 10*3/uL 4.4-11.0 [facility] Determination of erythrocyte mean corpuscular volume (MCV)Ordered By: Dolores Martin on 01-21-2024 MCV (RBC) [Entitic vol] 88.9 fL 81-[address] [facility] Erythrocyte distribution wid th ratioOrdered By: Dolores Martin on 01-21-2024 Erythrocyte distribution width (RBC) [Ratio] 15.0 % 11.6-14.6 [facility] Erythrocyte distribution wid th standard deviationOrdered By: Dolores Martin on 01-21-2024 Erythrocyte distribution width (RBC) [Entitic vol] 49.0 fL 35.1-43.9 [facility] Hematocrit Auto (Bld) [Volum e fraction]Ordered By: Dolores Martin on 01-21-2024 Hematocrit (Bld) [Volume fraction] 40.0 % 37-47 [facility] Immature granulocytes/100 WB C Auto (Bld)Ordered By: Dolores Martin on 01-21-2024 Immature granulocytes/100 WBC (Bld) 0.600 % 0.0-0.9 [facility] Comment on above: IG% - Immature Granu locytes (promyelocytes, myelocytes and metamyelocytes) > 1% indicates that a LEFT SHIFT is Present. Laboratory - Chemistry and C hemistry - challengeOrdered By: Dolores Martin on 01-21-2024 CO2 [Moles/Vol] 34.0 mmol/L 21.0-32.0 [facility] Urea nitrogen/Creatinine [Mass ratio] 24.1 mg/mg 10-20 [facility] Laboratory - Hematology and Cell countsOrdered By: Dolores Martin on 01-21-2024 MCH (RBC) [Entitic mass] 27.8 pg 27.0-32.0 [facility] MCHC (RBC) [Mass/Vol] 31.3 g/dL 32-36 [facility] Nucleated RBC/100 WBC (Bld) [Ratio] 0 % 0-5 [facility] Platelet mean volume (Bld) [Entitic vol] 9.8 fL 6.2-12.0 [facility] Platelets (Bld) [#/Vol] 287 10*3/uL 150-450 [facility] No Panel InformationOrdered By: Dolores Martin on 01-21-2024 Estimated Creatinine Clearance Calc 73.11 ml/min [facility] Estimated GFR (MDRD) Amer 132 mL/min >60 [facility] Comment on above: GFR Calc Estimated GFR (MDRD) Non-Af Amer 109 mL/min >60 [facility] Comment on above: Non- GFR Calc Troponin I High Sensitivity 10 pg/mL 3.0-54.0 [facility] Comment on above: Please Note: New Kathi t Units and Gender Specific Reference Ranges. For more information see Policy Stat Procedure [place] High Sensitivity Troponin (TNIH) and attachments. RBC Auto (Bld) [#/Vol]Ordere d By: Dolores Martin on 01-21-2024 RBC (Bld) [#/Vol] 4.50 10*6/uL 4.2-5.4 [facility] Serum or plasma calcium diallo urement (mass/volume)Ordered By: Dolores Martin on 01-21-2024 Calcium [Mass/Vol] 9.3 mg/dL 8.5-10.1 [facility] Serum or plasma creatinine m easurement (mass/volume)Ordered By: Dolores Martin on 01-21-2024 Creatinine [Mass/Vol] 0.58 mg/dL 0.55-1.02 [facility] Comment on above: The validity of the calculated GFR & GFRAA in patients over 70 years has not been determined. Clinical correlation is essential. Serum or plasma thyroid stim ulating hormone (TSH) measurement (units/volume)Ordered By: Dolores Martin on 01-21-2024 TSH Qn 1.53 uIU/mL 0.358-3.74 [facility] Serum or plasma urea nitroge n measurement (mass/volume)Ordered By: Dolores Martin on 01-21-2024 Urea nitrogen [Mass/Vol] 14 mg/dL 7-18 [facility] Thin prep Papanicolaou smear with manual screeningOrdered By: Dolores Martin on 01-21-2024 Thin prep Papanicolaou smear with manual screening 2 5-15 [facility] Absolute lymphocyte countOrd ered By: Christy Perea on 11-29-2023 Lymphocytes Auto (Unsp spec) [#/Vol] 1.50 10*3/uL 0.83-4.51 [facility] Basophil percentageOrdered B y: Christy Perea on 11-29-2023 Basophils/100 WBC (Bld) 0.7 % 0-1 [facility] Bilirubin [Mass/Vol] 0.40 mg/dL 0.20-1.00 [facility] Comment on above: For patients on eltr ombopag therapy, use of Dimension [place] TBIL is not recommended. Chloride [Moles/Vol] 99 mmol/L 98-107 [facility] Eosinophils/100 WBC (Bld) 4.3 % 0-5 [facility] Glucose [Mass/Vol] 95 mg/dL 74-106 [facility] Neutrophils (Bld) [#/Vol] 6.6 10*3/uL 2.0-7.7 [facility] Neutrophils/100 WBC (Bld) 67.9 % 47-70 [facility] Potassium [Moles/Vol] 4.4 mmol/L 3.5-5.1 [facility] Protein [Mass/Vol] 7.1 g/dL 6.4-8.2 [facility] Sodium [Moles/Vol] 139 mmol/L 136-145 [facility] WBC (Bld) [#/Vol] 9.7 10*3/uL 4.4-11.0 [facility] Blood erythrocytes count (nu mber/volume)Ordered By: Christy Perea on 11-29-2023 RBC (Bld) [#/Vol] 4.51 10*6/uL 4.2-5.4 [facility] Blood hemoglobin measurement (mass/volume)Ordered By: Christy Perea on 11-29-2023 Hemoglobin (Bld) [Mass/Vol] 12.4 g/dL 12.0-15.0 [facility] Blood lymphocytes/100 leukoc ytesOrdered By: Christy Perea on 11-29-2023 Lymphocytes/100 WBC (Bld) 15.4 % 19-41 [facility] Blood monocytes/100 leukocyt esOrdered By: Christy Perea on 11-29-2023 Monocytes/100 WBC (Bld) 11.5 % 0-[address] [facility] Blood platelet mean volumeOr dered By: Christy Perea on 11-29-2023 Platelet mean volume (Bld) [Entitic vol] 10.0 fL 6.2-12.0 [facility] Determination of erythrocyte mean corpuscular volume (MCV)Ordered By: Christy Perea on 11-29-2023 MCV (RBC) [Entitic vol] 92.5 fL 81-[address] [facility] Hematocrit Auto (Bld) [Volum e fraction]Ordered By: Christy Perea on 11-29-2023 Hematocrit (Bld) [Volume fraction] 41.7 % 37-47 [facility] Laboratory - Chemistry and C hemistry - challengeOrdered By: Christy Perea on 11-29-2023 ALP [Catalytic activity/Vol] 60 U/L 45-117 [facility] ALT [Catalytic activity/Vol] 15 U/L 13-56 [facility] CO2 [Moles/Vol] 36.0 mmol/L 21.0-32.0 [facility] Cobalamin (Vitamin B12) [Mass/Vol] 353 pg/mL 211-911 [facility] Globulin (S) [Mass/Vol] 3.9 g/dL 2.2-4.[address] [facility] Urea nitrogen/Creatinine [Mass ratio] 19.7 mg/mg 10-20 [facility] Laboratory - Hematology and Cell countsOrdered By: Christy Perea on 11-29-2023 Erythrocyte distribution width (RBC) [Entitic vol] 47.0 fL 35.1-43.9 [facility] Erythrocyte distribution width (RBC) [Ratio] 13.8 % 11.6-14.6 [facility] Immature granulocytes/100 WBC (Bld) 0.200 % 0.0-0.9 [facility] Comment on above: IG% - Immature Granu locytes (promyelocytes, myelocytes and metamyelocytes) > 1% indicates that a LEFT SHIFT is Present. MCH (RBC) [Entitic mass] 27.5 pg 27.0-32.0 [facility] Nucleated RBC/100 WBC (Bld) [Ratio] 0 % 0-5 [facility] MCHC Auto (RBC) [Mass/Vol]Or dered By: Christy Perea on 11-29-2023 MCHC (RBC) [Mass/Vol] 29.7 g/dL 32-36 [facility] No Panel InformationOrdered By: Christy Perea on 11-29-2023 Estimated GFR (MDRD) Amer 104 mL/min >60 [facility] Comment on above: GFR Calc Estimated GFR (MDRD) Non-Af Amer 86 mL/min >60 [facility] Comment on above: Non- GFR Calc Thyroid Stimulating Hormone (TSH) 2.21 uIU/mL 0.358-3.74 [facility] Platelets bldOrdered By: Christy Perea on 11-29-2023 Platelets (Bld) [#/Vol] 322 10*3/uL 150-450 [facility] Serum or plasma albumin diallo urement (mass/volume)Ordered By: Christy Perea on 11-29-2023 Albumin [Mass/Vol] 3.2 g/dL 3.2-5.0 [facility] Serum or plasma albumin/glob ulin mass ratioOrdered By: Christy Perea on 11-29-2023 Albumin/Globulin [Mass ratio] 0.8 {ratio} 0.9-2.4 [facility] Serum or plasma calcium diallo urement (mass/volume)Ordered By: Christy Perea on 11-29-2023 Calcium [Mass/Vol] 8.8 mg/dL 8.5-10.1 [facility] Serum or plasma creatinine m easurement (mass/volume)Ordered By: Christy Perea on 11-29-2023 Creatinine [Mass/Vol] 0.71 mg/dL 0.55-1.02 [facility] Comment on above: The validity of the calculated GFR & GFRAA in patients over 70 years has not been determined. Clinical correlation is essential. Serum or plasma urea nitroge n measurement (mass/volume)Ordered By: Christy Perea on 11-29-2023 Urea nitrogen [Mass/Vol] 14 mg/dL 7-18 [facility] Thin prep Papanicolaou smear with manual screeningOrdered By: Christy Perea on 11-29-2023 Thin prep Papanicolaou smear with manual screening 14 U/L 15-37 [facility] Thin prep Papanicolaou smear with manual screening 4 5-15 [facility] Basophil percentageOrdered B y: Preston Pineda on 07-10-2023 WBC (Bld) [#/Vol] 15.5 10*3/uL 4.4-11.0 [facility] Blood erythrocytes count (nu mber/volume)Ordered By: Preston Pineda on 07-10-2023 RBC (Bld) [#/Vol] 4.54 10*6/uL 4.2-5.4 [facility] Blood hemoglobin measurement (mass/volume)Ordered By: Preston Pineda on 07-10-2023 Hemoglobin (Bld) [Mass/Vol] 13.3 g/dL 12.0-15.0 [facility] Blood platelet mean volumeOr dered By: Preston Pineda on 07-10-2023 Platelet mean volume (Bld) [Entitic vol] 9.9 fL 6.2-12.0 [facility] Determination of erythrocyte mean corpuscular volume (MCV)Ordered By: Preston Pineda on 07-10-2023 MCV (RBC) [Entitic vol] 97.4 fL 81-[address] [facility] Hematocrit Auto (Bld) [Volum e fraction]Ordered By: Preston Pineda on 07-10-2023 Hematocrit (Bld) [Volume fraction] 44.2 % 37-47 [facility] Laboratory - Hematology and Cell countsOrdered By: Preston Pineda on 07-10-2023 Erythrocyte distribution width (RBC) [Entitic vol] 51.3 fL 35.1-43.9 [facility] Erythrocyte distribution width (RBC) [Ratio] 14.2 % 11.6-14.6 [facility] MCH (RBC) [Entitic mass] 29.3 pg 27.0-32.0 [facility] MCHC Auto (RBC) [Mass/Vol]Or dered By: Preston Pineda on 07-10-2023 MCHC (RBC) [Mass/Vol] 30.1 g/dL 32-36 [facility] Platelets bldOrdered By: Renetta Pineda on 07-10-2023 Platelets (Bld) [#/Vol] 257 10*3/uL 150-450 [facility] Absolute lymphocyte countOrd ered By: Geoff Galvan on 07-09-2023 Lymphocytes Auto (Unsp spec) [#/Vol] 0.64 10*3/uL 0.83-4.51 [facility] Basophil percentageOrdered B y: Geoff Galvan on 07-09-2023 Basophils/100 WBC (Bld) 0.3 % 0-1 [facility] Chloride [Moles/Vol] 100 mmol/L 98-107 [facility] Eosinophils/100 WBC (Bld) 0.0 % 0-5 [facility] Glucose [Mass/Vol] 144 mg/dL 74-106 [facility] Comment on above: Fasting Glucose resu lt greater than or equal to 126 mg/dL suggests DIABETES MELLITUS per A.D.A. criteria. Neutrophils (Bld) [#/Vol] 11.7 10*3/uL 2.0-7.7 [facility] Neutrophils/100 WBC (Bld) 91.8 % 47-70 [facility] Potassium [Moles/Vol] 4.3 mmol/L 3.5-5.1 [facility] Sodium [Moles/Vol] 137 mmol/L 136-145 [facility] Blood lymphocytes/100 leukoc ytesOrdered By: Geoff Galvan on 07-09-2023 Lymphocytes/100 WBC (Bld) 5.0 % 19-41 [facility] Blood monocytes/100 leukocyt esOrdered By: Geoff Galvan on 07-09-2023 Monocytes/100 WBC (Bld) 2.0 % 0-[address] [facility] Laboratory - Chemistry and C hemistry - challengeOrdered By: Geoff Galvan on 07-09-2023 CO2 [Moles/Vol] 21.0 mmol/L 21.0-32.0 [facility] Urea nitrogen/Creatinine [Mass ratio] 18.1 mg/mg 10-20 [facility] Laboratory - Hematology and Cell countsOrdered By: Geoff Galvan on 07-09-2023 Immature granulocytes/100 WBC (Bld) 0.900 % 0.0-0.9 [facility] Comment on above: IG% - Immature Granu locytes (promyelocytes, myelocytes and metamyelocytes) > 1% indicates that a LEFT SHIFT is Present. Nucleated RBC/100 WBC (Bld) [Ratio] 0 % 0-5 [facility] No Panel InformationOrdered By: Geoff Galvan on 07-09-2023 Estimated Creatinine Clearance Calc 41.99 ml/min [facility] Estimated GFR (MDRD) Amer 140 mL/min >60 [facility] Comment on above: GFR Calc Estimated GFR (MDRD) Non-Af Amer 116 mL/min >60 [facility] Comment on above: Non- GFR Calc Serum or plasma calcium diallo urement (mass/volume)Ordered By: Geoff Galvan on 07-09-2023 Calcium [Mass/Vol] 8.9 mg/dL 8.5-10.1 [facility] Serum or plasma creatinine m easurement (mass/volume)Ordered By: Geoff Galvan on 07-09-2023 Creatinine [Mass/Vol] 0.55 mg/dL 0.55-1.02 [facility] Comment on above: The validity of the calculated GFR & GFRAA in patients over 70 years has not been determined. Clinical correlation is essential. Serum or plasma urea nitroge n measurement (mass/volume)Ordered By: Geoff Galvan on 07-09-2023 Urea nitrogen [Mass/Vol] 10 mg/dL 7-18 [facility] Thin prep Papanicolaou smear with manual screeningOrdered By: Geoff Galvan on 07-09-2023 Thin prep Papanicolaou smear with manual screening 16 5-15 [facility] Bacteria identified Respirat ory culture Nom (Unsp spec)Ordered By: Archie Gamnio on 07-08-2023 Respiratory Culture Haemophilus influenzae [facility] Gram stain for investigation of transfusion reactionOrdered By: Archie Gamino on 07-08-2023 Microscopic observation Gram stain Nom (Unsp spec) [facility] Laboratory - Microbiology an d Antimicrobial susceptibilityOrdered By: Daja Hogan on 07-08-2023 SARS-CoV-2 (COVID-19) RNA KEARA+probe Ql (Unsp spec) [facility] No Panel InformationOrdered By: Archie Gamino on 07-08-2023 D-Dimer Quantitative (PE/DVT) 0.63 FEU/ug/m 0.27-0.49 [facility] Comment on above: D-Dimer ELEVATED (>0 .49): Additional studies and clinicalassessments are indicated to conclude diagnosis of:Deep Vein Thrombosis (DVT) or Pulmonary Embolism (PE)CRITICAL VALUE VERIFIED. CALLED TO BO OQUENDO07/08/23 1604 Ga Hogan.RESULTS READ BACK BY SAME . Troponin I High Sensitivity 24 pg/mL 3.0-54.0 [facility] Comment on above: Please Note: New Kathi t Units and Gender Specific Reference Ranges. For more information see Policy Stat Procedure [place] High Sensitivity Troponin (TNIH) and attachments. Sven 07-20-2022 [place] Telephone (PULN) BENITOPIPER Prado ([id number]) 1955 F Date Time Provider Department 07/20/22 [...] Bhavik Lind BSN, RN PH AND HHT [employer] Respiratory [place] [facility] Allergies As of Date: 07/20/2022 Noted Allergy Reaction DUST MITES 06/30/2022 7 - Swelling FEATHERS 06/30/2022 7 - Swelling MOLD 06/30/2022 7 - Swelling Date Reviewed: 06/30/2022 Reviewed by: Lorne Newell MD - Fully Assessed Reason for Visit: [employer] - Other [3602] Prescriptions as of 07/20/2022 [...] Status:Closed by STEPHANY LIND on 07/20/22 Normal [facility] ARTERIAL BLOOD GASESon 07-19 Base excess Calc (Bld) [Moles/Vol] 1 mmol/L Normal 0-2 [facility] Comment on above: Order Comment: Speci men Type: ARTERIAL BLOOD SPECIMEN Ordering Facility: [facility] Address: [address] [place] [address] Performed By: #### A LLBG #### [facility] CLIA [id number] [address] [place] [address] [place] CALCIUM IONIZED, PH CORRECTED 1.18 mmol/L Normal 1.08-1.30 [facility] Comment on above: Order Comment: Speci men Type: ARTERIAL BLOOD SPECIMEN Ordering Facility: [facility] Address: [address] [place] [address] Performed By: #### A LLBG #### [facility] CLIA [id number] [address] [place] [address] [place] Calcium.ionized (Bld) [Mass/Vol] 1.13 mmol/L Normal 1.08-1.30 [facility] Comment on above: Order Comment: Speci men Type: ARTERIAL BLOOD SPECIMEN Ordering Facility: [facility] Address: [address] [place] [address] Performed By: #### A LLBG #### [facility] CLIA [id number] [address] [place] [address] [place] Carboxyhemoglobin (BldA) [Mass fraction] 1.4 % Normal 0.0-2.0 [facility] Comment on above: Order Comment: Speci men Type: ARTERIAL BLOOD SPECIMEN Ordering Facility: [facility] Address: [address] [place], [place] [address] Result Comment: Carb oxyhemoglobin Reference Range for Smokers: 2.0-8.0% Performed By: #### A LLBG #### [facility] CLIA [id number] [address] [place] [address] [place] CO2 (Bld) [Partial pressure] 32 mm Hg Low 36-46 [facility] Comment on above: Order Comment: Speci men Type: ARTERIAL BLOOD SPECIMEN Ordering Facility: [facility] Address: [address] [place] [address] Performed By: #### A LLBG #### [facility] CLIA [id number] [address] [place], [place] [address] [place] CO2 [Moles/Vol] 25 mmol/L Normal 22-28 [facility] Comment on above: Order Comment: Speci men Type: ARTERIAL BLOOD SPECIMEN Ordering Facility: [facility] Address: [address] [place], [place] [address] Performed By: #### A LLBG #### [facility] CLIA [id number] [address] [place] [address] [place] CO2 adjusted to patient's actual temperature (Bld) [Partial pressure] 32 mmHg Low 36-46 [facility] Comment on above: Order Comment: Speci men Type: ARTERIAL BLOOD SPECIMEN Ordering Facility: [facility] Address: [address] [place], [place] [address] Performed By: #### A LLBG #### [facility] CLIA [id number] [address] [place] [address] [place] Glucose [Mass/Vol] 97 mg/dL Normal 60-105 [facility] Comment on above: Order Comment: Speci men Type: ARTERIAL BLOOD SPECIMEN Ordering Facility: [facility] Address: [address] [place] [address] Performed By: #### A LLBG #### [facility] CLIA [id number] [address] [place] [address] [place] HCO3 (Bld) [Moles/Vol] 24 mmol/L Normal 22-26 [facility] Comment on above: Order Comment: Speci men Type: ARTERIAL BLOOD SPECIMEN Ordering Facility: [facility] Address: [address] [place] [address] Performed By: #### A LLBG #### [facility] CLIA [id number] [address] [place] [address] [place] Hematocrit (Bld) [Volume fraction] 44.0 % Normal 36.0-46.0 [facility] Comment on above: Order Comment: Speci men Type: ARTERIAL BLOOD SPECIMEN Ordering Facility: [facility] Address: [address] [place] [address] Performed By: #### A LLBG #### [facility] CLIA [id number] [address] [place] [address] [place] Hemoglobin (Bld) [Mass/Vol] 14.3 g/dL Normal 11.5-15.5 [facility] Comment on above: Order Comment: Speci men Type: ARTERIAL BLOOD SPECIMEN Ordering Facility: [facility] Address: [address] [place] [address] Performed By: #### A LLBG #### [facility] CLIA [id number] [address] [place] [address] [place] Lactate [Moles/Vol] 0.9 mmol/L Normal 0.5-2.2 [facility] Comment on above: Order Comment: Speci men Type: ARTERIAL BLOOD SPECIMEN Ordering Facility: [facility] Address: [address] [place] [address] Performed By: #### A LLBG #### [facility] CLIA [id number] [address] [place] [address] [place] Order Comment: Speci men Type: VENOUS BLOOD SPECIMEN Ordering Facility: [facility] Address: [address] [place], [place] [address] Performed By: #### 2 4344-4 #### [facility] CLIA [id number] [address] [place] [address] [place] Methemoglobin (Bld) [Mass fraction] 0.9 % Normal 0.0-1.5 [facility] Comment on above: Order Comment: Speci men Type: ARTERIAL BLOOD SPECIMEN Ordering Facility: [facility] Address: [address] [phone] Performed By: #### A LLBG #### [facility] CLIA [id number] [address] [address] [place] Oxygen (Bld) [Partial pressure] 77 mm Hg Low 85-95 [facility] Comment on above: Order Comment: Speci men Type: ARTERIAL BLOOD SPECIMEN Ordering Facility: [facility] Address: [address] [phone] Performed By: #### A LLBG #### [facility] CLIA [id number] [address] [place], [place] [address] [place] Oxygen adjusted to patient's actual temperature (Bld) [Partial pressure] 77 mmHg Low 85-95 [facility] Comment on above: Order Comment: Speci men Type: ARTERIAL BLOOD SPECIMEN Ordering Facility: [facility] Address: [address] [phone] Performed By: #### A LLBG #### [facility] CLIA [id number] [address] [place] [address] [place] OXYGEN SATURATION, ARTERIAL 96 % Normal 95-98 [facility] Comment on above: Order Comment: Speci men Type: ARTERIAL BLOOD SPECIMEN Ordering Facility: [facility] Address: [address] [phone] Performed By: #### A LLBG #### [facility] CLIA [id number] [address] [address] [place] Oxyhemoglobin (BldA) [Mass fraction] 94 % Low 95-98 [facility] Comment on above: Order Comment: Speci men Type: ARTERIAL BLOOD SPECIMEN Ordering Facility: [facility] Address: [address] [phone] Performed By: #### A LLBG #### [facility] CLIA [id number] [address] [place] [address] [place] PATIENT POSITION-ICPET Wedge Normal [facility] Comment on above: Order Comment: Speci men Type: ARTERIAL BLOOD SPECIMEN Ordering Facility: [facility] Address: [address] [place] [address] Performed By: #### A LLBG #### [facility] CLIA [id number] [address] [place] [address] [place] pH (Bld) 7.48 [pH] High 7.35-7.45 [facility] Comment on above: Order Comment: Speci men Type: ARTERIAL BLOOD SPECIMEN Ordering Facility: [facility] Address: [address] [place] [address] Performed By: #### A LLBG #### [facility] CLIA [id number] [address] [place] [address] [place] pH adjusted to patient's actual temperature (Bld) 7.48 High 7.35-7.45 [facility] Comment on above: Order Comment: Speci men Type: ARTERIAL BLOOD SPECIMEN Ordering Facility: [facility] Address: [address] [place], [place] [address] Performed By: #### A LLBG #### [facility] CLIA [id number] [address] [place] [address] [place] Potassium [Moles/Vol] 3.5 mmol/L Normal 3.5-5.0 [facility] Comment on above: Order Comment: Speci men Type: ARTERIAL BLOOD SPECIMEN Ordering Facility: [facility] Address: [address] [place], [place] [address] Performed By: #### A LLBG #### [facility] CLIA [id number] [address] [place] [address] [place] Sodium [Moles/Vol] 138 mmol/L Normal 136-144 [facility] Comment on above: Order Comment: Speci men Type: ARTERIAL BLOOD SPECIMEN Ordering Facility: [facility] Address: [address] [place] [phone] Performed By: #### A LLBG #### [facility] CLIA [id number] [address] [place] [address] [id number] [place] [address] [place] Base excess Calc (Bld) [Moles/Vol] 1 mmol/L 0 - 2 mmol/L [facility] Calcium Ionized, pH corrected 1.18 mmol/L 1.08 - 1.30 mmol/L [facility] Calcium.ionized (Bld) [Mass/Vol] 1.13 mmol/L 1.08 - 1.30 mmol/L [facility] Carboxyhemoglobin (BldA) [Mass fraction] 1.4 % 0.0 - 2.0 % [facility] CO2 (Bld) [Partial pressure] 32 mm Hg Low 36 - 46 mm Hg [facility] CO2 [Moles/Vol] 25 mmol/L 22 - 28 mmol/L [facility] CO2 adjusted to patient's actual temperature (Bld) [Partial pressure] 32 mmHg Low 36 - 46 mmHg [facility] Glucose [Mass/Vol] 97 mg/dL 60 - 105 mg/dL [facility] HCO3 (Bld) [Moles/Vol] 24 mmol/L 22 - 26 mmol/L [facility] Hematocrit (Bld) [Volume fraction] 44.0 % 36.0 - 46.0 % [facility] Hemoglobin (Bld) [Mass/Vol] 14.3 g/dL 11.5 - 15.5 g/dL [facility] Lactate [Moles/Vol] 0.9 mmol/L 0.5 - 2. 2 mmol/L [facility] Methemoglobin (Bld) [Mass fraction] 0.9 % 0.0 - 1.5 % [facility] Oxygen (Bld) [Partial pressure] 77 mm Hg Low 85 - 95 mm Hg [facility] Oxygen adjusted to patient's actual temperature (Bld) [Partial pressure] 77 mmHg Low 85 - 95 mmHg [facility] Oxygen saturation in Blood 96 % 95 - 98 % [facility] Oxyhemoglobin (BldA) [Mass fraction] 94 % Low 95 - 98 % [facility] Patient Position Wedge [facility] pH (Bld) 7.48 [pH] High 7.35 - 7.45 [facility] pH adjusted to patient's actual temperature (Bld) 7.48 High 7.35 - 7.45 [facility] Potassium [Moles/Vol] 3.5 mmol/L 3.5 - 5.0 mmol/L [facility] Sodium [Moles/Vol] 138 mmol/L 136 - 144 mmol/L [facility] CNOVon 07-19-2022 CNOV Office Visit (PUBRON ) PIPER CLARK ([id number]) 1955 F Date Time Provider Department 07/19/22 4:00 PM PULM MAIN [id number] PROCEDURE RMPUBRON During your visit today, we recorded the following information about you: Weight Height 88.2 kg 1.575 m Referring Provider: LORNE NEWELL [[id number]] Allergies As of Date: 07/19/2022 Noted Allergy Reaction DUST MITES 06/30/2022 7 - Swelling FEATHERS 06/30/2022 7 - Swelling MOLD 06/30/2022 7 - Swelling Date Reviewed: 06/30/2022 Reviewed by: Lorne Newell MD - Fully Assessed Primary Visit Diagnosis:Stage 3 severe COPD by GOLD classification (HCC) [J44.9] Order(s):XR ARTERY CATHETER (POC) FOR REYNALDO USE ONLY [4092301] Order #: [id number]: 1 US VASCULAR (POC) FOR REYNA[facility]O USE ONLY [2417721] Order #: [id number]. #:[id number]: 1 ARTERIAL BLOOD GASES [SQALLBG] Order #: [id number]. #:[id number] VENOUS BLOOD GASES [SQVALLBG] Order #: [id number]. #:[id number] Prescriptions as of 07/19/2022 - fluticasone-vilanterol (BREO [...] Status:Closed by LE ORTEGA on 07/19/22 Normal [facility] Gas and Carbon monoxide pane l (BldV)on 07-19-2022 Base excess Calc (BldV) [Moles/Vol] 3 mmol/L High 0-2 [facility] Comment on above: Order Comment: Speci men Type: VENOUS BLOOD SPECIMEN Ordering Facility: [facility] Address: [address] [place] [address] Performed By: #### 2 4344-4 #### [facility] CLIA [id number] [address] [place] [address] [place] CALCIUM IONIZED, PH CORRECTED 1.24 mmol/L Normal 1.08-1.30 [facility] Comment on above: Order Comment: Speci men Type: VENOUS BLOOD SPECIMEN Ordering Facility: [facility] Address: [address] [place] [address] Performed By: #### 2 4344-4 #### [facility] CLIA [id number] [address] [place] [address] [place] Calcium.ionized (Bld) [Mass/Vol] 1.24 mmol/L Normal 1.08-1.30 [facility] Comment on above: Order Comment: Speci men Type: VENOUS BLOOD SPECIMEN Ordering Facility: [facility] Address: [address] [place], [place] [address] Performed By: #### 2 4344-4 #### [facility] CLIA [id number] [address] [place] [address] [place] Carboxyhemoglobin (BldV) [Mass fraction] 0.8 % Normal 0.0-2.0 [facility] Comment on above: Order Comment: Speci men Type: VENOUS BLOOD SPECIMEN Ordering Facility: [facility] Address: [address] [place] [address] Result Comment: Carb oxyhemoglobin Reference Range for Smokers: 2.0-8.0% Performed By: #### 2 4344-4 #### [facility] CLIA [id number] [address] [place] [address] [place] CO2 (BldV) [Partial pressure] 48 mm[Hg] Normal 42-55 [facility] Comment on above: Order Comment: Speci men Type: VENOUS BLOOD SPECIMEN Ordering Facility: [facility] Address: [address] [place], [place] [address] Performed By: #### 2 4344-4 #### [facility] CLIA [id number] [address] [place] [address] [place] CO2 [Moles/Vol] 30 mmol/L High 25-29 [facility] Comment on above: Order Comment: Speci men Type: VENOUS BLOOD SPECIMEN Ordering Facility: [facility] Address: [address] [place], [place] [address] Performed By: #### 2 4344-4 #### [facility] CLIA [id number] [address] [place] [address] [place] CO2 adjusted to patient's actual temperature (BldV) [Partial pressure] 48 mmHg Normal 42-55 [facility] Comment on above: Order Comment: Speci men Type: VENOUS BLOOD SPECIMEN Ordering Facility: [facility] Address: [address] [place] [address] Performed By: #### 2 4344-4 #### [facility] CLIA [id number] [address] [place] [address] [place] Glucose [Mass/Vol] 103 mg/dL Normal 60-105 [facility] Comment on above: Order Comment: Speci men Type: VENOUS BLOOD SPECIMEN Ordering Facility: [facility] Address: [address] [place] [address] Performed By: #### 2 4344-4 #### [facility] CLIA [id number] [address] [place] [address] [place] HCO3 (Bld) [Moles/Vol] 28 mmol/L Normal 24-28 [facility] Comment on above: Order Comment: Speci men Type: VENOUS BLOOD SPECIMEN Ordering Facility: [facility] Address: [address] [place] [address] Performed By: #### 2 4344-4 #### [facility] CLIA [id number] [address] [place] [address] [place] Hematocrit (Bld) [Volume fraction] 43.1 % Normal 36.0-46.0 [facility] Comment on above: Order Comment: Speci men Type: VENOUS BLOOD SPECIMEN Ordering Facility: [facility] Address: [address] [place] [address] Performed By: #### 2 4344-4 #### [facility] CLIA [id number] [address] [place], [place] [address] [place] Hemoglobin (Bld) [Mass/Vol] 14.1 g/dL Normal 11.5-15.5 [facility] Comment on above: Order Comment: Speci men Type: VENOUS BLOOD SPECIMEN Ordering Facility: [facility] Address: [address] [place] [address] Performed By: #### 2 4344-4 #### [facility] CLIA [id number] [address] [place], [place] [address] [place] Methemoglobin (Bld) [Mass fraction] 1.0 % Normal 0.0-1.5 [facility] Comment on above: Order Comment: Speci men Type: VENOUS BLOOD SPECIMEN Ordering Facility: [facility] Address: [address] [place], [place] [address] Performed By: #### 2 4344-4 #### [facility] CLIA [id number] [address] [place], [place] [address] [place] Oxygen (BldV) [Partial pressure] 43 mm[Hg] Normal 35-45 [facility] Comment on above: Order Comment: Speci men Type: VENOUS BLOOD SPECIMEN Ordering Facility: [facility] Address: [address] [place], [place] [address] Performed By: #### 2 4344-4 #### [facility] CLIA [id number] [address] [place] [address] [place] Oxygen adjusted to patient's actual temperature (BldV) [Partial pressure] 43 mmHg Normal 35-45 [facility] Comment on above: Order Comment: Speci men Type: VENOUS BLOOD SPECIMEN Ordering Facility: [facility] Address: [address] [place] [address] Performed By: #### 2 4344-4 #### [facility] CLIA [id number] [address] [place], [place] [address] [place] Oxygen saturation in Blood 76 % Normal 60-85 [facility] Comment on above: Order Comment: Speci men Type: VENOUS BLOOD SPECIMEN Ordering Facility: [facility] Address: [address] [place] [address] Performed By: #### 2 4344-4 #### [facility] CLIA [id number] [address] [place], [place] [address] [place] Oxyhemoglobin (BldV) [Mass fraction] 74 % Normal 60-85 [facility] Comment on above: Order Comment: Speci men Type: VENOUS BLOOD SPECIMEN Ordering Facility: [facility] Address: [address] [place], [place] [address] Performed By: #### 2 4344-4 #### [facility] CLIA [id number] [address] [place] [address] [place] PATIENT POSITION-ICPET Baseline Normal Cl [facility] Comment on above: Order Comment: Speci men Type: VENOUS BLOOD SPECIMEN Ordering Facility: [facility] Address: [address] [place], [place] [address] Result Comment: Supi ne Performed By: #### 2 4344-4 #### [facility] CLIA [id number] [address] [place] [address] [place] pH (BldV) 7.39 [pH] Normal 7.32-7.42 [facility] Comment on above: Order Comment: Speci men Type: VENOUS BLOOD SPECIMEN Ordering Facility: [facility] Address: [address] [place], [place] [address] Performed By: #### 2 4344-4 #### [facility] CLIA [id number] [address] [place] [address] [place] pH adjusted to patient's actual temperature (BldV) 7.39 Normal 7.32-7.42 [facility] Comment on above: Order Comment: Speci men Type: VENOUS BLOOD SPECIMEN Ordering Facility: [facility] Address: [address] [place], [place] [address] Performed By: #### 2 4344-4 #### [facility] CLIA [id number] [address] [place] [address] [place] Potassium [Moles/Vol] 3.8 mmol/L Normal 3.5-5.0 [facility] Comment on above: Order Comment: Speci men Type: VENOUS BLOOD SPECIMEN Ordering Facility: [facility] Address: [address] [place], [place] [address] Performed By: #### 2 4344-4 #### [facility] CLIA [id number] [address] [place] [address] [place] Sodium [Moles/Vol] 139 mmol/L Normal 136-144 [facility] Comment on above: Order Comment: Speci men Type: VENOUS BLOOD SPECIMEN Ordering Facility: [facility] Address: [address] [place] [address] Performed By: #### 2 4344-4 #### [facility] CLIA [id number] [address] [place] [address] [place] Base excess Calc (BldV) [Moles/Vol] 3 mmol/L High 0 - 2 mmol/L [facility] Calcium Ionized, pH corrected 1.24 mmol/L 1.08 - 1.30 mmol/L [facility] Calcium.ionized (Bld) [Mass/Vol] 1.24 mmol/L 1.08 - 1.30 mmol/L [facility] Carboxyhemoglobin (BldV) [Mass fraction] 0.8 % 0.0 - 2.0 % [facility] CO2 (BldV) [Partial pressure] 48 mm[Hg] 42 - 55 mmHg [facility] CO2 [Moles/Vol] 30 mmol/L High 25 - 29 mmol/L [facility] CO2 adjusted to patient's actual temperature (BldV) [Partial pressure] 48 mmHg 42 - 55 mmHg [facility] Glucose [Mass/Vol] 103 mg/dL 60 - 105 mg/dL [facility] HCO3 (Bld) [Moles/Vol] 28 mmol/L 24 - 28 mmol/L [facility] Hematocrit (Bld) [Volume fraction] 43.1 % 36.0 - 46.0 % [facility] Hemoglobin (Bld) [Mass/Vol] 14.1 g/dL 11.5 - 15.5 g/dL [facility] Lactate [Moles/Vol] 0.9 mmol/L 0.5 - 2. 2 mmol/L [facility] Methemoglobin (Bld) [Mass fraction] 1.0 % 0.0 - 1.5 % [facility] Oxygen (BldV) [Partial pressure] 43 mm[Hg] 35 - 45 mmHg [facility] Oxygen adjusted to patient's actual temperature (BldV) [Partial pressure] 43 mmHg 35 - 45 mmHg [facility] Oxygen saturation in Blood 76 % 60 - 85 % [facility] Oxyhemoglobin (BldV) [Mass fraction] 74 % 60 - 85 % [facility] Patient Position Baseline Supine [facility] pH (BldV) 7.39 [pH] 7.32 - 7.42 [facility] pH adjusted to patient's actual temperature (BldV) 7.39 7.32 - 7.42 [facility] Potassium [Moles/Vol] 3.8 mmol/L 3.5 - 5.0 mmol/L [facility] Sodium [Moles/Vol] 139 mmol/L 136 - 144 mmol/L [facility] US VASCULAR (POC) FOR REYNALDO US E ONLYon 07-19-2022 [facility] SARS-CoV-2 RNA Resp Ql KEARA+p robeon 07-17-2022 SARS-CoV-2 (COVID-19) RNA KEARA+probe Ql (Resp) SARS-CoV-2 (Agent of COVID-19) Not Detected by RT-PCR or equivalent method. Normal Not Detected [facility] Comment on above: Order Comment: Speci men Type: VENOUS BLOOD SPECIMEN Ordering Facility: [facility] Address: [address] [place] [address] Result Comment: This test was developed and its performance characteristics determined by [facility]'s Mitchell Alva [facility] [place]. This test has been authorized by FDA under an Emergency Use Authorization (EUA). This test has been validated in accordance with the FDA's Guidance Document Policy for Diagnostics Testing in Laboratories Certified to Perform High Complexity Testing under CLIA prior to Emergency use Authorization for Coronavirus Disease 2019 during the Public Health Emergency issued on January 24, 2020. Test performed by [facility], [facility] [place], [address] [place] [address]. Performed By: #### 2 4344-4 #### [facility] CLIA [id number] [address] [place] [address] [place] [address] [place] CNPNon 07-12-2022 CNPN Telephone (PULN) BENITOPIPER ([id number]) 1955 F Date Time Provider Department 07/12/22 ORLANDO SIMPSON During your visit today, we recorded the following information about you: Orlando Simpson MA 07/12/2022 12:37 PM Signed Patient called me to state her grandson tested positive for Covid. Covid order is being placed for her to have one before her [facility] on 07/[address] Newell. Orlando Simpson Clinical Science Writer [facility] [place] Allergies As of Date: 07/12/2022 Noted Allergy Reaction DUST MITES 06/30/2022 7 - Swelling FEATHERS 06/30/2022 7 - Swelling MOLD 06/30/2022 7 - Swelling Date Reviewed: 06/30/2022 Reviewed by: Lorne Newell MD - Fully Assessed Reason for Visit: Patient Question [7667] Prescriptions as of 07/12/2022 - fluticasone-vilanterol (BREO [...] Encounter Status:Closed by ORLANDO SIMPSON on 07/12/22 Normal [facility] CNPBettina 07-11-2022 CNPN Telephone (PULMMN) PIPER CLARK ([id number]) 1955 F Date Time Provider Department 07/11/22 ORLANDO SIMPSON During your visit today, we recorded the following information about you: Orlando Simpson MA 07/11/2022 10:22 AM Signed Called patient to confirm her RHC with Dr. Newell on 07/19 at 4pm. No answer, left VM. Orlando Simpson Clinical Science Writer [facility] [place] Allergies As of Date: 07/11/2022 Noted Allergy Reaction DUST MITES 06/30/2022 7 - Swelling FEATHERS 06/30/2022 7 - Swelling MOLD 06/30/2022 7 - Swelling Date Reviewed: 06/30/2022 Reviewed by: Lorne Newell MD - Fully Assessed Reason for Visit: Appointment Confirmation [[id number]] Prescriptions as of 07/11/2022 - fluticasone-vilanterol (BREO [...] Encounter Status:Closed by ORLANDO SIMPSON on 07/11/22 [facility] 06-05-2022 CNPN Telephone (PULMMN) PIPER CLARK ([id number]) 1955 F Date Time Provider Department 06/05/22 ORLANDO SIMPSON During your visit today, we recorded the following information about you: Orlando Simpson MA 06/05/2022 10:54 AM Signed Called patient to schedule her RHC with Dr. Newell on 07/19/2022 at 4pm. NPO 4 hours pre-procedure. Anticoagulation: None at this time Must have a parts driver for transportation post procedure. May take other medications as prescribed prior to procedure. Check in at desk G-11 at 3:30pm Orlando Simpson Clinical Science Writer [facility] [place] Allergies As of Date: 06/05/2022 (Not on File) Date Reviewed: Never Reviewed Reason for Visit: Care Coordination [3491] Problem List As Of Date: 06/05/2022 (None) Encounter Status:Closed by ORLANDO SIMPSON on 06/05/22 [facility] 06-02-2022 CNPN Telephone (PULMMN) PIPER CLARK ([id number]) 1955 F Date Time Provider Department 06/02/22 ORLANDO SIMPSON During your visit today, we recorded the following information about you: Orlando Simpson MA 06/02/2022 9:35 AM Signed Called patient to schedule her RHC with Dr. Newell. No answer, left VMJuan Simpson Clinical Science Writer [facility] [place] Allergies As of Date: 06/02/2022 (Not on File) Date Reviewed: Never Reviewed Reason for Visit: Care Coordination [5999] Problem List As Of Date: 06/02/2022 (None) Encounter Status:Closed by ORLANDO SIMPSON on 06/02/22 Normal [facility] CNPNon 05-18-2022 CNPN Telephone (PMNA11) PIPER CLARK ([id number]) 1955 F Date Time Provider Department 05/18/22 LORNE NEWELL PMNA11 During your visit today, we recorded the following information about you: Devonte Navas 05/18/2022 1:[address] Mitchell Brian contacted Mic Webber MD for a RHC. Dr. Webber does not perform RHC's and has deferred to Dr. Newell. I am requesting recent office notes from office: [phone] Devonte Navas 05/19/2022 8:56 AM Signed Uploaded outside medical records from Dr. Brian. Please allow time for document to appear in [employer]. Devonte Navas 05/19/2022 12:25 PM Signed Requested PFTs, echo report, and CT report from Dr. Brian. Devonte Navas 05/22/2022 2:55 PM Signed Uploaded additional records from Dr. Brian. Please allow time for document to appear in [employer]. Devonte Navas 05/26/2022 10:42 AM Signed Spoke with patient; she will call [phone] to get registered with [facility]. Allergies As of Date: 05/18/2022 (Not on File) Date Reviewed: Never Reviewed Reason for Visit: Request Outside Medical Records [3575] Received Outside Medical Records [3576] Problem List As Of Date: 05/18/2022 (None) Encounter Status:Closed by DEVONTE NAVAS on 05/18/22 Normal [facility] RIGHT HEART CATH O2 SATURATI ON & CARDIAC OUTPUT [facility] Vital Signs Date Time Vital Sign Value Performing Clinician Facility 09-11-2025 14:58-0400 Body height 157.48 cm Genia Chappell MD Work Phone: 9(966)842-122206 [place] [address] 09-11-2025 14:58-0400 Body mass index (BMI) [Ratio] 41.8 kg/m2 Genia Chappell MD Work Phone: 3(456)387-950203 [address] 09-11-2025 14:58-0400 Body weight 103.87 kg Genia Chappell MD Work Phone: 6(996)743-063803 [address] 09-11-2025 14:58-0400 Diastolic blood pressure 67 mm[Hg] Genia Chappell MD Work Phone: 6(205)184-866906 [place] [address] 09-11-2025 14:58-0400 Heart rate 75 /min Genia Chappell MD Work Phone: 2(668)327-676703 [address] 09-11-2025 14:58-0400 Systolic blood pressure 143 mm[Hg] Genia Chappell MD Work Phone: 1(411)619-346706 [place] [address] 09-01-2025 14:16-0400 Body height 157.48 cm Genia Chappell MD Work Phone: [facility] 09-01-2025 14:16-0400 Body mass index (BMI) [Ratio] 41.8 kg/m2 Genia Chappell MD Work Phone: 5(759)675-546506 [place] [address] 09-01-2025 14:16-0400 Body weight 103.87 kg Genia Chappell MD Work Phone: [facility] 09-01-2025 14:16-0400 Diastolic blood pressure 68 mm[Hg] Genia Chappell MD Work Phone: [facility] 09-01-2025 14:16-0400 Heart rate 78 /min Genia Chappell MD Work Phone: [facility] 09-01-2025 14:16-0400 Inhaled oxygen flow rate 4 L/min Genia Chappell MD Work Phone: [facility] 09-01-2025 14:16-0400 Respiratory rate 19 /min Genia Chappell MD Work Phone: [facility] 09-01-2025 14:16-0400 SaO2% (BldA) [Mass fraction] 97 % Genia Chappell MD Work Phone: [facility] 09-01-2025 14:16-0400 Systolic blood pressure 112 mm[Hg] Genia Chappell MD Work Phone: [facility] 08-14-2025 15:14-0400 Body height 157.48 cm Genia Chappell MD Work Phone: 5(260)362-688403 [address] 08-14-2025 15:14-0400 Body mass index (BMI) [Ratio] 42 kg/m2 Genia Chappell MD Work Phone: [facility] 08-14-2025 15:14-0400 Body weight 104.32 kg Genia Chappell MD Work Phone: [facility] 08-14-2025 15:14-0400 Diastolic blood pressure 84 mm[Hg] Genia Chappell MD Work Phone: [facility] 08-14-2025 15:14-0400 Heart rate 89 /min Genia Chappell MD Work Phone: [facility] 08-14-2025 15:14-0400 Systolic blood pressure 138 mm[Hg] Genia Chappell MD Work Phone: [facility] 07-01-2025 10:45-0400 Body height 157.[address] Christy Perea MD Work Phone: [facility] 07-01-2025 10:45-0400 Body mass index (BMI) [Ratio] 42 kg/m2 Dr. Christy Perea MD Work Phone: [facility] 07-01-2025 10:45-0400 Body weight 104.[address] Christy Perea MD Work Phone: [facility] 07-01-2025 10:45-0400 Diastolic blood pressure 69 mm[Hg] Dr. Christy Perea MD Work Phone: [facility] 07-01-2025 10:45-0400 Heart rate 73 /min Dr. Christy Perea MD Work Phone: [facility] 07-01-2025 10:45-0400 Inhaled oxygen flow rate 4 L/min Dr. Christy Perea MD Work Phone: 3(974)473-900906 [place] [address] 07-01-2025 10:45-0400 Respiratory rate 18 /min Dr. Christy Perea MD Work Phone: 9(528)937-988006 [place] [address] 07-01-2025 10:45-0400 SaO2% (BldA) [Mass fraction] 98 % Dr. Christy Perea MD Work Phone: [facility] 07-01-2025 10:45-0400 Systolic blood pressure 111 mm[Hg] Dr. Christy Perea MD Work Phone: [facility] 06-01-2025 11:44-0400 Body height 157.[address] Christy Perea MD Work Phone: [facility] 06-01-2025 11:44-0400 Body mass index (BMI) [Ratio] 43.1 kg/m2 Dr. Christy Perea MD Work Phone: [facility] 06-01-2025 11:44-0400 Body weight 107.[address] Christy Perea MD Work Phone: [facility] 06-01-2025 11:44-0400 Diastolic blood pressure 53 mm[Hg] Dr. Christy Perea MD Work Phone: [facility] 06-01-2025 11:44-0400 Heart rate 75 /min Dr. Christy Perea MD Work Phone: [facility] 06-01-2025 11:44-0400 Inhaled oxygen flow rate 4 L/min Dr. Christy Perea MD Work Phone: [facility] 06-01-2025 11:44-0400 Respiratory rate 18 /min Dr. Christy Perea MD Work Phone: [facility] 06-01-2025 11:44-0400 SaO2% (BldA) [Mass fraction] 96 % Dr. Christy Perea MD Work Phone: [facility] 06-01-2025 11:44-0400 Systolic blood pressure 91 mm[Hg] Dr. Christy Perea MD Work Phone: 3(511)497-496703 [address] 05-14-2025 09:58-0400 Body height 157.[address] Christy Perea MD Work Phone: 7(692)661-325306 [place] [address] 05-14-2025 09:58-0400 Body mass index (BMI) [Ratio] 42.6 kg/m2 Dr. Christy Perea MD Work Phone: 5(398)020-449906 [place] [address] 05-14-2025 09:58-0400 Body weight 105.[address] Christy Perea MD Work Phone: [facility] 05-14-2025 09:58-0400 Diastolic blood pressure 73 mm[Hg] Dr. Christy Perea MD Work Phone: [facility] 05-14-2025 09:58-0400 Heart rate 79 /min Dr. Christy Perea MD Work Phone: [facility] 05-14-2025 09:58-0400 Inhaled oxygen flow rate 4 L/min Dr. Christy Perea MD Work Phone: [facility] 05-14-2025 09:58-0400 Respiratory rate 16 /min Dr. Christy Perea MD Work Phone: [facility] 05-14-2025 09:58-0400 SaO2% (BldA) [Mass fraction] 97 % Dr. Christy Perea MD Work Phone: [facility] 05-14-2025 09:58-0400 Systolic blood pressure 127 mm[Hg] Dr. Christy Perea MD Work Phone: [facility] 05-08-2025 12:34-0400 Inhaled oxygen flow rate 4 L/min Dr. Christy Perea MD Work Phone: 9(924)520-017306 [place] [address] 05-08-2025 12:34-0400 SaO2% (BldA) [Mass fraction] 99 % Dr. Christy Perea MD Work Phone: 1(159)053-152027 [place] [address] 05-08-2025 09:55-0400 Diastolic blood pressure 67 mm[Hg] Dr. Christy Perea MD Work Phone: 7(882)347-740727 [place] [address] 05-08-2025 09:55-0400 Heart rate 79 /min Dr. Christy Perea MD Work Phone: 0(524)294-809806 [place] [address] 05-08-2025 09:55-0400 Systolic blood pressure 154 mm[Hg] Dr. Christy Perea MD Work Phone: [facility] 05-08-2025 08:22-0400 Body temperature 97.4 [degF] Dr. Christy Perea MD Work Phone: [facility] 05-08-2025 08:22-0400 Respiratory rate 17 /min Dr. Christy Perea MD Work Phone: [facility] 05-07-2025 09:25-0400 Inhaled oxygen flow rate 4 L/min Dr. Christy Perea MD Work Phone: [facility] 05-07-2025 09:25-0400 Respiratory rate 17 /min Dr. Christy Perea MD Work Phone: 4(888)083-015603 [address] 05-07-2025 08:45-0400 Heart rate 79 /min Dr. Christy Perea MD Work Phone: 4(049)030-594406 [place] [address] 05-07-2025 04:00-0400 Body temperature 98.1 [degF] Dr. Christy Perea MD Work Phone: 0(245)263-486406 [place] [address] 05-07-2025 04:00-0400 Diastolic blood pressure 48 mm[Hg] Dr. Christy Perea MD Work Phone: 8(134)493-980927 [place] [address] 05-07-2025 04:00-0400 SaO2% (BldA) [Mass fraction] 94 % Dr. Christy Perea MD Work Phone: 6(250)556-393227 [place] [address] 05-07-2025 04:00-0400 Systolic blood pressure 132 mm[Hg] Dr. Christy Perea MD Work Phone: 2(250)298-511827 [place] [address] 05-06-2025 13:29-0400 Heart rate 88 /min Dr. Christy Perea MD Work Phone: 7(017)866-035727 [place] [address] 05-06-2025 13:29-0400 Respiratory rate 18 /min Dr. Christy Perea MD Work Phone: 0(567)899-499927 [place] [address] 05-06-2025 11:14-0400 Body height 157.[address] Christy Perea MD Work Phone: 2(252)945-539527 [place] [address] 05-06-2025 11:14-0400 Body mass index (BMI) [Ratio] 41.1 kg/m2 Dr. Christy Perea MD Work Phone: 3(378)620-291927 [place] [address] 05-06-2025 11:14-0400 Body temperature 98.4 [degF] Dr. Christy Perea MD Work Phone: 9(852)637-912927 [place] [address] 05-06-2025 11:14-0400 Body weight [address] Christy Perea MD Work Phone: 5(838)735-093427 [place] [address] 05-06-2025 11:14-0400 Diastolic blood pressure 82 mm[Hg] Dr. Christy Perea MD Work Phone: 2(245)465-983527 [place] [address] 05-06-2025 11:14-0400 Inhaled oxygen flow rate 4 L/min Dr. Christy Perea MD Work Phone: 7(252)679-084827 [place] [address] 05-06-2025 11:14-0400 SaO2% (BldA) [Mass fraction] 94 % Dr. Christy Perea MD Work Phone: 5(399)769-069006 [place] [address] 05-06-2025 11:14-0400 Systolic blood pressure 144 mm[Hg] Dr. Christy Perea MD Work Phone: 6(450)431-472527 [place] [address] 05-06-2025 06:22-0400 Inhaled oxygen concentration 35 % Dr. Christy Perea MD Work Phone: 6(692)086-690727 [place] [address] 04-30-2025 12:28-0400 Body height 157.[address] Christy Perea MD Work Phone: 6(485)666-912127 [place] [address] 04-30-2025 12:28-0400 Body mass index (BMI) [Ratio] 43.3 kg/m2 Dr. Christy Perea MD Work Phone: 8(947)408-271527 [place] [address] 04-30-2025 12:28-0400 Body weight 107.[address] Christy Perea MD Work Phone: 7(267)696-638227 [place] [address] 04-30-2025 12:28-0400 Diastolic blood pressure 62 mm[Hg] Dr. Christy Perea MD Work Phone: 1(023)385-696427 [place] [address] 04-30-2025 12:28-0400 Heart rate 70 /min Dr. Christy Perea MD Work Phone: 6(620)983-947027 [place] [address] 04-30-2025 12:28-0400 Respiratory rate 18 /min Dr. Christy Perea MD Work Phone: 1(097)507-453227 [place] [address] 04-30-2025 12:28-0400 Systolic blood pressure 100 mm[Hg] Dr. Christy Perea MD Work Phone: 7(432)133-739527 [place] [address] 04-10-2025 15:20-0400 Heart rate 70 /min Dr. Christy Perea MD Work Phone: 5(430)828-651527 [place] [address] 04-10-2025 15:20-0400 Inhaled oxygen concentration 30 % Dr. Christy Perea MD Work Phone: 5(927)931-057427 [place] [address] 04-10-2025 15:20-0400 Respiratory rate 19 /min Dr. Christy Perea MD Work Phone: [facility] 04-10-2025 15:20-0400 SaO2% (BldA) [Mass fraction] 97 % Dr. Christy Perea MD Work Phone: [facility] 04-10-2025 14:56-0400 Body temperature 98.1 [degF] Dr. Christy Perea MD Work Phone: 7(729)672-931927 [place] [address] 04-10-2025 14:56-0400 Diastolic blood pressure 80 mm[Hg] Dr. Christy Perea MD Work Phone: 1(973)514-605327 [place] [address] 04-10-2025 14:56-0400 Inhaled oxygen flow rate 4 L/min Dr. Christy Perea MD Work Phone: 3(652)331-869027 [place] [address] 04-10-2025 14:56-0400 Systolic blood pressure 140 mm[Hg] Dr. Christy Perea MD Work Phone: 1(103)308-542227 [place] [address] 04-10-2025 04:23-0400 Body mass index (BMI) [Ratio] 45.3 kg/m2 Dr. Christy Perea MD Work Phone: 4(631)692-082127 [place] [address] 04-10-2025 04:23-0400 Body weight 112.[address] Christy Perea MD Work Phone: 7(777)657-899627 [place] [address] 04-09-2025 15:15-0400 Body height 157.[address] Christy Perea MD Work Phone: 0(535)438-143906 [place] [address] 04-08-2025 11:16-0400 Inhaled oxygen flow rate 4 L/min Dr. Christy Perea MD Work Phone: 3(786)717-463706 [place] [address] 04-08-2025 11:16-0400 SaO2% (BldA) [Mass fraction] 100 % Dr. Christy Perea MD Work Phone: 1(200)780-354606 [place] [address] 04-08-2025 10:49-0400 Heart rate 89 /min Dr. Christy Perea MD Work Phone: 1(638)337-746106 [place] [address] 04-08-2025 10:49-0400 Respiratory rate 20 /min Dr. Christy Perea MD Work Phone: [facility] 04-08-2025 09:16-0400 Body temperature 98 [degF] Dr. Christy Perea MD Work Phone: [facility] 04-08-2025 09:16-0400 Diastolic blood pressure 74 mm[Hg] Dr. Christy Perea MD Work Phone: [facility] 04-08-2025 09:16-0400 Systolic blood pressure 126 mm[Hg] Dr. Christy Perea MD Work Phone: 0(590)323-898306 [place] [address] 04-08-2025 05:50-0400 Body mass index (BMI) [Ratio] 45.3 kg/m2 Dr. Christy Perea MD Work Phone: 4(637)160-695603 [address] 04-08-2025 05:50-0400 Body weight 112.[address] Christy Perea MD Work Phone: 8(197)970-965506 [place] [address] 04-08-2025 04:02-0400 Inhaled oxygen concentration 35 % Dr. Christy Perea MD Work Phone: 4(227)791-439906 [place] [address] 04-06-2025 10:07-0400 Body height 157.[address] Christy Perea MD Work Phone: [facility] 04-05-2025 23:41-0400 Body temperature 98.1 [degF] Dr. Christy Perea MD Work Phone: [facility] 04-05-2025 23:41-0400 Diastolic blood pressure 63 mm[Hg] Dr. Christy Perea MD Work Phone: 8(449)923-066606 [place] [address] 04-05-2025 23:41-0400 Heart rate 92 /min Dr. Christy Perea MD Work Phone: [facility] 04-05-2025 23:41-0400 Respiratory rate 16 /min Dr. Christy Perea MD Work Phone: [facility] 04-05-2025 23:41-0400 SaO2% (BldA) [Mass fraction] 98 % Dr. Christy Perea MD Work Phone: [facility] 04-05-2025 23:41-0400 Systolic blood pressure 110 mm[Hg] Dr. Christy Perea MD Work Phone: [facility] 04-05-2025 22:54-0400 Inhaled oxygen concentration 50 % Dr. Christy Perea MD Work Phone: 7(104)729-001306 [place] [address] 04-05-2025 22:54-0400 Inhaled oxygen flow rate 50 L/min Dr. Christy Perea MD Work Phone: 3(007)812-866927 [place] [address] 04-05-2025 20:27-0400 Body height 154.[address] Christy Perea MD Work Phone: 3(726)175-930627 [place] [address] 04-05-2025 20:27-0400 Body mass index (BMI) [Ratio] 49 kg/m2 Dr. Christy Perea MD Work Phone: 6(050)786-957627 [place] [address] 04-05-2025 20:27-0400 Body weight 117.[address] Christy Perea MD Work Phone: 5(840)874-076803 [address] 03-25-2025 14:24-0400 Body temperature 98.2 [degF] Dr. Christy Perea MD Work Phone: 5(220)398-883703 [address] 03-25-2025 14:24-0400 Diastolic blood pressure 69 mm[Hg] Dr. Christy Perea MD Work Phone: [facility] 03-25-2025 14:24-0400 Heart rate 71 /min Dr. Christy Perea MD Work Phone: [facility] 03-25-2025 14:24-0400 Respiratory rate 15 /min Dr. Christy Perea MD Work Phone: [facility] 03-25-2025 14:24-0400 SaO2% (BldA) [Mass fraction] 97 % Dr. Christy Perea MD Work Phone: [facility] 03-25-2025 14:24-0400 Systolic blood pressure 115 mm[Hg] Dr. Christy Perea MD Work Phone: [facility] 03-25-2025 11:48-0400 Inhaled oxygen flow rate 4 L/min Dr. Christy Perea MD Work Phone: [facility] 03-25-2025 11:43-0400 Body height 154.[address] Christy Perea MD Work Phone: 5(054)966-767806 [place] [address] 03-25-2025 11:43-0400 Body mass index (BMI) [Ratio] 46.4 kg/m2 Dr. Christy Perea MD Work Phone: 7(940)873-759506 [place] [address] 03-25-2025 11:43-0400 Body weight 111.[address] Christy Perea MD Work Phone: 5(727)822-542506 [place] [address] 03-24-2025 14:32-0400 Body temperature 97.8 [degF] Dr. Christy Perea MD Work Phone: 8(707)420-789706 [place] [address] 03-24-2025 14:32-0400 Diastolic blood pressure 72 mm[Hg] Dr. Christy Perea MD Work Phone: 3(575)880-525606 [place] [address] 03-24-2025 14:32-0400 Heart rate 78 /min Dr. Christy Perea MD Work Phone: [facility] 03-24-2025 14:32-0400 Inhaled oxygen flow rate 4 L/min Dr. Christy Perea MD Work Phone: [facility] 03-24-2025 14:32-0400 Respiratory rate 20 /min Dr. Christy Perea MD Work Phone: [facility] 03-24-2025 14:32-0400 SaO2% (BldA) [Mass fraction] 98 % Dr. Crhisty Perea MD Work Phone: [facility] 03-24-2025 14:32-0400 Systolic blood pressure 136 mm[Hg] Dr. Christy Perea MD Work Phone: [facility] 03-24-2025 04:43-0400 Body mass index (BMI) [Ratio] 46.5 kg/m2 Dr. Christy Perea MD Work Phone: 5(251)862-567906 [place] [address] 03-24-2025 04:43-0400 Body weight 115.[address] Christy Perea MD Work Phone: 0(547)392-122706 [place] [address] 03-20-2025 12:54-0400 Body height 157.[address] Christy Perea MD Work Phone: 4(946)936-460927 [place] [address] 10-28-2024 08:50-0500 Body height 157.[address] Christy Perea MD Work Phone: 7(700)658-914427 [place] [address] 10-28-2024 08:50-0500 Body mass index (BMI) [Ratio] 43.3 kg/m2 Dr. Christy Perea MD Work Phone: 0(667)186-800427 [place] [address] 10-28-2024 08:50-0500 Body weight 107.[address] Christy Perea MD Work Phone: 9(173)500-748806 [place] [address] 10-28-2024 08:50-0500 Diastolic blood pressure 61 mm[Hg] Dr. Christy Perea MD Work Phone: 7(953)142-494927 [place] [address] 10-28-2024 08:50-0500 Heart rate 68 /min Dr. Christy Perea MD Work Phone: 7(203)841-941727 [place] [address] 10-28-2024 08:50-0500 Respiratory rate 20 /min Dr. Christy Perea MD Work Phone: 5(288)105-841706 [place] [address] 10-28-2024 08:50-0500 Systolic blood pressure 117 mm[Hg] Dr. Christy Perea MD Work Phone: 9(344)222-952127 [place] [address] 02-25-2024 00:20-0400 Body mass index (BMI) [Ratio] 40.8 kg/m2 Dr. Christy Perea Work Phone: 1(489)172-364706 [place] [address] 02-25-2024 00:20-0400 Body weight 101.[address] Christy Perea Work Phone: 1(782)194-471806 [place] [address] 02-19-2024 10:25-0400 Body height 157.[address] Christy Perea Work Phone: [facility] 02-19-2024 10:25-0400 Body mass index (BMI) [Ratio] 40.6 kg/m2 Dr. Christy Perea Work Phone: [facility] 02-19-2024 10:25-0400 Body weight 100.[address] Christy Perea Work Phone: [facility] 02-19-2024 10:25-0400 Diastolic blood pressure 93 mm[Hg] Dr. Christy Perea Work Phone: 2(729)530-245906 [place] [address] 02-19-2024 10:25-0400 Heart rate 101 /min Dr. Christy Perea Work Phone: 5(892)545-493006 [place] [address] 02-19-2024 10:25-0400 Respiratory rate 18 /min Dr. Christy Perea Work Phone: [facility] 02-19-2024 10:25-0400 Systolic blood pressure 157 mm[Hg] Dr. Christy Perea Work Phone: 4(820)909-038503 [address] 01-25-2024 00:24-0500 Body mass index (BMI) [Ratio] 40.8 kg/m2 Dr. Christy Perea Work Phone: 7(649)150-593206 [place] [address] 01-25-2024 00:24-0500 Body weight 101.[address] Christy Perea Work Phone: [facility] 01-21-2024 17:17-0500 Body temperature 98 [degF] Dr. Christy Perea Work Phone: 2(899)752-372706 [place] [address] 01-21-2024 17:17-0500 Diastolic blood pressure 71 mm[Hg] Dr. Christy Perea Work Phone: [facility] 01-21-2024 17:17-0500 Heart rate 72 /min Dr. Christy Perea Work Phone: [facility] 01-21-2024 17:17-0500 Respiratory rate 12 /min Dr. Christy Perea Work Phone: [facility] 01-21-2024 17:17-0500 SaO2% (BldA) [Mass fraction] 98 % Dr. Christy Perea Work Phone: [facility] 01-21-2024 17:17-0500 Systolic blood pressure 148 mm[Hg] Dr. Christy Perea Work Phone: 9(245)800-926706 [place] [address] 01-21-2024 14:56-0500 Body mass index (BMI) [Ratio] 41 kg/m2 Dr. Christy Perea Work Phone: 5(187)808-863006 [place] [address] 01-21-2024 14:56-0500 Body weight 101.[address] Christy Perea Work Phone: 9(459)945-071206 [place] [address] 01-21-2024 14:01-0500 Inhaled oxygen flow rate 5 L/min Dr. Christy Perea Work Phone: 0(850)538-545306 [place] [address] 01-21-2024 13:38-0500 Body height 157.[address] Christy Perea Work Phone: 8(506)977-038806 [place] [address] 01-14-2024 10:08-0500 Body mass index (BMI) [Ratio] 40.8 kg/m2 Dr. Christy Perea Work Phone: 2(276)091-950806 [place] [address] 01-14-2024 10:08-0500 Body weight 101.[address] Christy Perea Work Phone: 9(684)581-631706 [place] [address] 12-18-2023 08:44-0500 Body mass index (BMI) [Ratio] 39.6 kg/m2 [facility] 12-03-2023 18:52-0500 Body mass index (BMI) [Ratio] 39.6 kg/m2 [facility] 11-15-2023 06:43-0500 Body height 157.48 cm [facility] 11-15-2023 06:43-0500 Body mass index (BMI) [Ratio] 39.6 kg/m2 [facility] 11-15-2023 06:43-0500 Body weight 98.42 kg [facility] 11-14-2023 14:51-0500 Diastolic blood pressure 84 mm[Hg] [facility] 11-14-2023 14:51-0500 Systolic blood pressure 160 mm[Hg] [facility] 11-14-2023 14:47-0500 Heart rate 83 /min [facility] 11-14-2023 14:47-0500 SaO2% (BldA) [Mass fraction] 89 % [facility] 07-10-2023 13:27-0400 Inhaled oxygen flow rate 2 L/min Dr. Christy Perea Work Phone: [facility] 07-10-2023 13:25-0400 Body temperature 98.2 [degF] Dr. Christy Perea Work Phone: [facility] 07-10-2023 13:25-0400 Diastolic blood pressure 60 mm[Hg] Dr. Christy Perea Work Phone: [facility] 07-10-2023 13:25-0400 Heart rate 86 /min Dr. Christy Perea Work Phone: [facility] 07-10-2023 13:25-0400 Respiratory rate 16 /min Dr. Christy Perea Work Phone: [facility] 07-10-2023 13:25-0400 SaO2% (BldA) [Mass fraction] 96 % Dr. Christy Perea Work Phone: [facility] 07-10-2023 13:25-0400 Systolic blood pressure 140 mm[Hg] Dr. Christy Perea Work Phone: [facility] 07-08-2023 18:52-0400 Body height 158.[address] Christy Perea Work Phone: [facility] 07-08-2023 18:52-0400 Body mass index (BMI) [Ratio] 39.9 kg/m2 Dr. Christy Perea Work Phone: [facility] 07-08-2023 18:52-0400 Body weight 100.[address] Christy Perea Work Phone: [facility] 09-28-2022 12:37-0400 Body height 160.02 cm [facility] Work Phone: 07-19-2022 16:04-0400 Body height 157.5 cm Pulm Rm Work Phone: [facility] 07-19-2022 16:04-0400 Body weight 88.2 kg Pulm Rm Work Phone: [facility] 03-31-2022 13:38-0400 Body temperature 97.4 [degF] Dr. Christy Perea Work Phone: [facility] Work Phone: 03-31-2022 13:38-0400 Diastolic blood pressure 74 mm[Hg] Dr. Christy Perea Work Phone: [facility] Work Phone: 03-31-2022 13:38-0400 Heart rate 106 /min Dr. Christy Perea Work Phone: [facility] Work Phone: 03-31-2022 13:38-0400 Respiratory rate 16 /min Dr. Christy Perea Work Phone: [facility] Work Phone: 03-31-2022 13:38-0400 SaO2% (BldA) [Mass fraction] 91 % Dr. Christy Perea Work Phone: [facility] Work Phone: 03-31-2022 13:38-0400 Systolic blood pressure 152 mm[Hg] Dr. Christy Perea Work Phone: [facility] Work Phone: Encounters Encounter Date Encounter Type Care Provider Facility Start: 09-15-2025 End: 09-15-2025 ambulatory Mitchell V Sibilia Facility:[facility] Start: 09-11-2025 End: 09-11-[address] Patsy Aguirre MD -[facility] Work Phone: Start: 09-11-2025 End: 09-11-2025 ambulatory Genia Chappell Facility:[facility] Start: 09-08-2025 End: 09-08-[address] Mitchell Brian MD -[facility] Work Phone: Start: 09-08-2025 End: 09-08-2025 ambulatory Mitchell Brian Facility:[facility] Start: 09-01-2025 End: 09-01-[address] Oscar Springer MD -[facility] Work Phone: Start: 09-01-2025 End: 09-01-2025 ambulatory Genia Chappell MD Work Phone: -[facility] Start: 08-14-2025 End: 08-14-[address] Patsy Aguirre MD -[facility] Work Phone: Start: 08-14-2025 End: 08-14-2025 ambulatory Genia Chappell MD Work Phone: -[facility] Start: 08-03-2025 End: 08-03-2025 ambulatory Genia Chappell MD Work Phone: -[facility] Start: 08-03-2025 End: 08-03-[address] Genia Chappell MD -[facility] Start: 08-03-2025 End: 08-03-2025 ambulatory Genia Chappell Facility:[facility] Start: 07-01-2025 End: 07-01-[address] Yasmani Bruno MD -[facility] Work Phone: Start: 07-01-2025 End: 07-01-2025 Dr. Yasmani Bruno MD -[facility] Work Phone: Start: 07-01-2025 End: 07-01-[address] Christy Perea MD Work Phone: -[facility] Start: 06-03-2025 End: 06-03-[address] Christy Perea MD Work Phone: -Cat Scan [facility] Start: 06-03-2025 End: 06-03-2025 Patient encounter procedure Husam Young SEWER REPAIRER-C -Cat Scan [facility] Work Phone: Start: 06-03-2025 End: 06-03-2025 Husam Young SEWER REPAIRER-C -Cat Scan [facility] Work Phone: Start: 06-03-2025 End: 06-03-[address] [facility] Facility:[facility] Start: 06-01-2025 End: 06-01-2025 Patient encounter procedure Husam Redman Hannah SEWER REPAIRER-C -[facility] Work Phone: Start: 06-01-2025 End: 06-01-2025 Husam Young SEWER REPAIRER-C -[facility] Work Phone: Start: 06-01-2025 End: 06-01-[address] Christy Perea MD Work Phone: -[facility] Start: 05-14-2025 End: 05-14-[address] Chirsty Perea MD Work Phone: [facility] Work Phone: Start: 05-14-2025 End: 05-14-2025 Patient encounter procedure Husam Young SEWER REPAIRER-C -Laboratory Work Phone: Start: 05-14-2025 End: 05-14-2025 Husam Young SEWER REPAIRER-C -Laboratory Work Phone: Start: 05-14-2025 End: 05-14-2025 Patient encounter procedure Husam Young SEWER REPAIRER-C -[facility] Work Phone: Start: 05-14-2025 End: 05-14-2025 Husam Young SEWER REPAIRER-C -[facility] Work Phone: Start: 05-14-2025 End: 05-14-[address] Christy Perea MD Work Phone: [facility] Work Phone: Start: 05-14-2025 End: 05-14-2025 ambulatory [facility] Facility:[facility] Start: 05-08-2025 Non-patient / Non-visit Dr. Antonette Lizarraga MD -[facility] Work Phone: Start: 05-08-2025 Dr. Cindi juarez MD -[facility] Work Phone: Start: 05-08-2025 ambulatory [facility] Facility:[facility] Start: 05-08-2025 End: 05-08-2025 Evaluation and management of inpatient Dr. Christy Perea MD Work Phone: [facility] Work Phone: Start: 05-08-2025 End: 05-08-2025 Dr. Cindi Lizarraga MD -Medical Surgical 2 Work Phone: Start: 05-07-2025 Non-patient / Non-visit Dr. Antonette Lizarraga MD -[facility] Work Phone: Start: 05-07-2025 Dr. Cindi juarez MD -[facility] Work Phone: Start: 05-06-2025 End: 05-08-2025 Evaluation and management of inpatient Dr. Christy Perea MD Work Phone: [facility] Work Phone: Start: 05-06-2025 End: 05-08-2025 ambulatory [facility] Facility:[facility] Start: 05-06-2025 Non-patient / Non-visit Dr. Vannesa Camejo DO -[facility] Work Phone: Start: 05-06-2025 Dr. Vannesa Camejo DO -[facility] Surgical 2 Work Phone: Start: 05-04-2025 ambulatory Chandniellen Courtney Facility:[facility] Start: 04-30-2025 End: 04-30-[address] Chandni Courtney MD -[facility] Work Phone: Start: 04-30-2025 End: 04-30-2025 Dr. Chandni Courtney MD -[facility] Work Phone: Start: 04-30-2025 End: 04-30-[address] Christy Perea MD Work Phone: [facility] Work Phone: Start: 04-30-2025 End: 04-30-[address] Christy Perea MD Work Phone: [facility] Work Phone: Start: 04-30-2025 End: 04-30-[address] Mitchell Brian MD -Pulmonary Services/Neurology Work Phone: Start: 04-30-2025 End: 04-30-2025 Dr. Mitchell Brian MD -Pulmonary Services/Neurology Work Phone: Start: 04-30-2025 End: 04-30-2025 ambulatory Mitchell Brian Facility:[facility] Start: 04-21-2025 End: 04-21-[address] Christy Perea MD Work Phone: [facility] Work Phone: Start: 04-21-2025 End: 04-21-2025 Patient encounter procedure Becca Dillard SEWER REPAIRER-C -Laboratory Work Phone: Start: 04-21-2025 End: 04-21-2025 Becca Dillard NP-C -Laboratory Work Phone: Start: 04-21-2025 End: 04-21-2025 ambulatory Genia Dona Facility:[facility] Start: 04-10-2025 Non-patient / Non-visit Dr. Lindsay Galvan MD -[facility] Work Phone: Start: 04-10-2025 Dr. Geoff Galvan MD -[facility] Work Phone: Start: 04-09-2025 Non-patient / Non-visit Dr. Ken Vieyra MD [facility] Work Phone: Start: 04-09-2025 Dr. Ken Vieyra MD [facility] Work Phone: Start: 04-08-2025 Non-patient / Non-visit Dr. Ken Vieyra MD [facility] Work Phone: Start: 04-08-2025 Dr. Kne Vieyra MD [facility] Work Phone: Start: 04-07-2025 Non-patient / Non-visit Dr. Ken Vieyra MD [facility] Work Phone: Start: 04-07-2025 Dr. Ken Vieyra MD [facility] Work Phone: Start: 04-06-2025 Non-patient / Non-visit Dr. Ken Vieyra MD [facility] Work Phone: Start: 04-06-2025 Dr. Ken Vieyra MD [facility] Work Phone: Start: 04-05-2025 ambulatory Orlando Méndez ty:[facility] Start: 04-05-2025 End: 04-10-2025 Dr. Geoff Galvan MD -Progressive Care Unit Work Phone: Start: 04-05-2025 End: 04-10-2025 Evaluation and management of inpatient Dr. Orlando Bolden DO -Progressive Care Unit Work Phone: Start: 04-03-2025 End: 04-03-[address] Christy Perea MD Work Phone: [facility] Work Phone: Start: 04-03-2025 End: 04-03-2025 Patient encounter procedure Becca Dillard SEWER REPAIRER-C -Laboratory Work Phone: Start: 04-03-2025 End: 04-03-2025 Becca Dillard SEWER REPAIRER-C -Laboratory Work Phone: Start: 04-03-2025 End: 04-03-2025 ambulatory Genia [facility] Facility:[facility] Start: 03-31-2025 End: 03-31-[address] Christy Perea MD Work Phone: [facility] Work Phone: Start: 03-31-2025 End: 03-31-[address] Genia Chappell MD -Laboratory, [facility] Start: 03-31-2025 End: 03-31-2025 Dr. Genia Chappell MD -Laboratory [facility] Start: 03-30-2025 End: 03-31-[address] Christy Perea MD Work Phone: [facility] Work Phone: Start: 03-30-2025 End: 03-30-[address] Genia Chappell MD -Radiology, [facility] Work Phone: Start: 03-30-2025 End: 03-30-2025 Dr. Genia Chappell MD -Radiology [facility] Work Phone: Start: 03-30-2025 End: 03-30-2025 ambulatory Mitchell Cathi [facility] Facility:[facility] Start: 03-25-2025 End: 03-25-2025 Dr. Jose Armando Willoughby -Emergency [facility] t Work Phone: Start: 03-25-2025 End: 03-25-2025 Emergency department patient visit Dr. Jose Armando Willoughby -Emergency Department Work Phone: Start: 03-24-2025 Non-patient / Non-visit Dr. Antonette Lizarraga MD -[facility] Work Phone: Start: 03-24-2025 Dr. Cindi juarez MD -[facility] Work Phone: Start: 03-23-2025 Non-patient / Non-visit Dr. Antonette Lizarraga MD -[facility] Work Phone: Start: 03-23-2025 Dr. Cindi juarez MD -[facility] Work Phone: Start: 03-22-2025 Non-patient / Non-visit Dr. Fannie howard [facility] Work Phone: Start: 03-22-2025 [facility] Work Phone: Start: 03-21-2025 Non-patient / Non-visit Dr. Fannie howard [facility] Work Phone: Start: 03-21-2025 Dr. Chai smith [facility] Work Phone: Start: 03-20-2025 Non-patient / Non-visit Dr. Fannie howard [facility] Work Phone: Start: 03-20-2025 Dr. [facility] Work Phone: Start: 03-20-2025 ambulatory [facility] Start: 03-20-2025 Non-patient / Non-visit Dr. Chandni solitario MD -[facility] Start: 03-20-2025 Dr. Chandni Courtney MD [facility] Start: 03-19-2025 [facility] Start: 03-19-2025 End: 03-24-2025 Evaluation and management of inpatient Dr. Cindi Lizarraga MD -Progressive Care Unit Work Phone: Start: 03-19-2025 End: 03-24-2025 Dr. Cindi Lizarraga MD -Progressive Care Unit Work Phone: Start: 03-18-2025 End: 03-18-2025 Patient encounter procedure Becca Dillard SEWER REPAIRER-C -Laboratory Work Phone: Start: 03-18-2025 End: 03-18-2025 Becca Dillard NP-C -Laboratory Work Phone: Start: 03-18-2025 End: 03-18-2025 ambulatory Christy Perea Facility:[facility] Start: 02-05-2025 End: 02-05-[address] Christy Perea MD Work Phone: [facility] Work Phone: Start: 02-05-2025 End: 02-05-[address] Christy Perea MD -Laboratory, [facility] Start: 02-05-2025 End: 02-05-2025 Dr. Christy Perea MD -Laboratory [facility] Start: 02-05-2025 End: 02-05-2025 ambulatory Christy S Brit Facility:[facility] Start: 12-25-2024 End: 12-25-2024 Patient encounter procedure Azael Ashton SEWER REPAIRER-C -Laboratory, Specimen Work Phone: Start: 12-25-2024 End: 12-25-2024 ambulatory Azael Ashton SEWER REPAIRER Facility:[facility] Start: 12-04-2024 End: 12-04-[address] Brennan Ansari MD -[facility] Start: 12-04-2024 End: 12-04-2024 ambulatory Christy S Brit Facility:[facility] Start: 11-05-2024 End: 11-05-2024 ambulatory Christy Perea Facility:[facility] Start: 11-05-2024 End: 11-05-[address] Curry [place] MD -Physical Therapy Work Phone: Start: 10-28-2024 End: 10-28-[address] Chandni Courtney MD -[facility] Work Phone: Start: 10-28-2024 End: 10-28-2024 ambulatory Christy Perea Facility:[facility] Start: 10-01-2024 End: 10-02-2024 ambulatory Christy S Brit Facility:[facility] Start: 09-30-2024 End: 09-30-2024 ambulatory Christy S Cheryllliff Facility:[facility] Start: 03-31-2024 Non-patient / Non-visit Dr. Carol Perea Work Phone: [facility] Start: 03-28-2024 End: 03-28-[address] Christy Perea Work Phone: [facility] Work Phone: Start: 03-28-2024 End: 03-28-[address] Christy Perea Work Phone: [facility]-Laboratory Work Phone: Start: 03-21-2024 End: 03-25-[address] Christy Perea Work Phone: [facility] Work Phone: Start: 03-21-2024 End: 03-25-[address] Christy Perea Work Phone: [facility]-Pulmonary Rehab Work Phone: Start: 03-21-[address] Christy csatro Work Phone: [facility]-Pulmonary Rehab Work Phone: Start: 03-20-2024 Non-patient / Non-visit Dr. Carol Perea Work Phone: [facility] Start: 03-20-2024 End: 03-20-[address] Christy Perea Work Phone: [facility] Work Phone: Start: 03-20-2024 End: 03-20-[address] Christy Perea Work Phone: [facility]-Cardiovascula r Services Work Phone: Start: 02-22-2024 End: 02-24-[address] Christy Perea Work Phone: [facility] Work Phone: Start: 02-22-2024 End: 02-24-[address] Christy Perea Work Phone: [facility]-Pulmonary Rehab Work Phone: Start: 02-19-2024 End: 02-19-[address] Christy Perea Work Phone: [facility] Work Phone: Start: 01-23-2024 End: 01-24-[address] Christy Perea Work Phone: [facility] Work Phone: Start: 01-23-2024 End: 01-24-[address] Christy Perea Work Phone: [facility]-Pulmonary Rehab Work Phone: Start: 01-21-2024 End: 01-21-2024 Emergency department patient visit Dr. Christy Perea Work Phone: [facility]-Emergency Department Work Phone: Start: 12-26-2023 End: 12-26-2023 ambulatory [facility] Work Phone: Start: 12-26-2023 End: 12-26-2023 Discharged Recurring [facility]-Pulmonary Rehab Work Phone: Start: 12-17-2023 Registered Recurring [facility]-Pulmonary Rehab Work Phone: Start: 12-12-2023 End: 12-12-2023 ambulatory [facility] Work Phone: Start: 12-12-2023 End: 12-12-2023 Patient encounter procedure [facility]-Radiology, [facility] Work Phone: Start: 12-03-2023 Registered Recurring [facility]-Pulmonary Rehab Work Phone: Start: 11-29-2023 End: 11-29-2023 ambulatory [facility] Work Phone: Start: 11-29-2023 End: 11-29-2023 Patient encounter procedure [facility]-Laboratory, [place] Work Phone: Start: 11-15-2023 Non-patient / Non-visit Dr. Carol Perea Work Phone: [facility] Inpatient Physicians Work Phone: Start: 11-14-2023 End: 11-14-2023 ambulatory [facility] Work Phone: Start: 11-14-2023 End: 11-14-2023 Patient encounter procedure [facility]-Pulmonary Rehab Work Phone: Start: 10-01-2023 End: 10-01-2023 Patient encounter procedure [facility]-Outpatient Breast Imaging Work Phone: Start: 09-06-2023 End: 09-06-[address] Christy Perea Work Phone: [facility] Work Phone: Start: 09-06-2023 End: 09-06-[address] Christy Perea Work Phone: [facility]-Cat Scan, [facility] Work Phone: Start: 07-10-2023 Non-patient / Non-visit Dr. Carol Perea Work Phone: [facility] Work Phone: Start: 07-09-2023 Non-patient / Non-visit Dr. Carol Perea Work Phone: [facility] Work Phone: Start: 07-08-2023 Non-patient / Non-visit Dr. Carol Perea Work Phone: [facility] Work Phone: Start: 07-08-2023 End: 07-10-2023 Evaluation and management of inpatient Dr. 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 Start: 07-19-2022 ambulatory Lorne saenz MD Work Phone: Pulmonary Medicine Start: 07-19-2022 End: 07-19-2022 Patient encounter procedure Pulm Main [id number] Procedure Rm Work Phone: Pulmonary Medicine Comment on above: Stage 3 severe COPD by GOLD classification ([facility]) (Primary Dx) Start: 07-11-2022 Telephone encounter Orlando Simpson MA Pu lmonary Medicine Comment on above: Appointment Confirma tion Start: 06-30-2022 End: 06-30-2022 ambulatory Lorne Newell MD Work Phone: Pulmonary Medicine Comment on above: Stage 3 severe COPD by GOLD classification ([facility]); Abnormal echocardiogram Start: 06-30-2022 End: 06-30-2022 Telemedicine consultation with patient Lorne Newell MD Work Phone: [facility] Start: 06-27-2022 Chart abstracting Naa Croft APRN.SENIOR SOFTWARE QA ANALYST Work Phone: Pulmonary Medicine Comment on above: Abstract Start: 06-05-2022 ambulatory Orlando Simpson MA Pulmonary Medicine Comment on above: [facility] 07/19 at 4pm Start: 06-05-2022 E-mail encounter fro m caregiver Orlando Simpson MA [facility] Start: 06-05-2022 Telephone encounter Orlando Simpson MA Pu lmonary Medicine Comment on above: Care Coordination Start: 06-02-2022 Telephone encounter Orlando Simpson MA Pu lmonary Medicine Comment on above: Care Coordination Start: 05-19-2022 Orders Only Rachel Seaman COMMUNICATION CLERK.DATA SUPPORT ANALYST Work Phone: Pulmonary Medicine Comment on above: Other secondary pulm onary hypertension (HCC) Start: 05-18-2022 Telephone encounter Lorne Newell MD Work Phone: Pulmonary Medicine Comment on above: Request Outside [facility] Records Start: 03-31-2022 End: 03-31-[address] Christy Perea Work Phone: [facility] Start: 03-30-2022 Non-patient / Non-visit Dr. Carol Perea Work Phone: [facility] Start: 03-30-2022 End: 03-30-[address] Christy Perea Work Phone: [facility]-Cat Scan, [facility] Procedures Date Procedure Procedure Detail Performing Clinician Start: 09-15-2025 Carbon dioxide measu rement, partial pressure Genia Chappell MD Work Phone: Start: 09-15-2025 Measurement of parti al pressure of oxygen in blood Genia Chappell MD Work Phone: Start: 09-15-2025 Oxygen measurement Ari Chappell MD Work Phone: Start: 09-15-2025 Oxygen saturation measurement Genia Chappell MD Work Phone: Start: 09-08-2025 CT of chest Genia denton MD Work Phone: Start: 06-03-2025 CT of head without contrast Dr. Christy Perea MD Work Phone: Start: 05-14-2025 Blood count smear mc rscp w/mnl difrntl wbc count Dr. Christy Perea MD Work Phone: Start: 05-14-2025 Mean corpuscular hem oglobin concentration determination Dr. Christy Perea MD Work Phone: Start: 05-14-2025 Nucleated red blood cell count procedure Dr. Christy Perea MD Work Phone: Start: 05-14-2025 Platelet mean volume determination Dr. Christy Perea MD Work Phone: Start: 05-08-2025 Blood count smear mc rscp w/mnl difrntl wbc count Dr. Christy Perea MD Work Phone: Start: 05-08-[address] Christy Perea MD Work Phone: Start: 05-08-2025 Mean corpuscular hem oglobin concentration determination Dr. Christy Perea MD Work Phone: Start: 05-08-2025 Nucleated red blood cell count procedure Dr. Christy Perea MD Work Phone: Start: 05-08-2025 Platelet mean volume determination Dr. Christy Perea MD Work Phone: Start: 05-07-2025 Urine microscopy: red cells Dr. Christy Perea MD Work Phone: Start: 05-07-2025 Urnls dip stick/tabl et reagent auto microscopy Dr. Christy Perea MD Work Phone: Start: 05-07-2025 Blood count smear mc rscp w/mnl difrntl wbc count Dr. Christy Perea MD Work Phone: Start: 05-07-[address] Christy Perea MD Work Phone: Start: 05-07-2025 Mean corpuscular hem oglobin concentration determination Dr. Christy Perea MD Work Phone: Start: 05-07-2025 Nucleated red blood cell count procedure Dr. Christy Perea MD Work Phone: Start: 05-07-2025 Platelet mean volume determination Dr. Christy Perea MD Work Phone: Start: 05-07-2025 Serum inorganic phos phate measurement Dr. Christy Perea MD Work Phone: Start: 05-06-2025 Blood count smear mc rscp [...] MD Work Phone: Start: 05-06-2025 Carbon dioxide alexandro nt measurement Genia Chappell MD Work Phone: Start: 05-06-2025 Carbon dioxide measu rement, partial pressure Dr. Christy Perea MD Work Phone: Start: 05-06-2025 Gases blood o2 satur ation only direct diallo Dr. Christy Perea MD Work Phone: Start: 05-06-2025 Measurement of parti al pressure of oxygen in blood Dr. Christy Perea MD Work Phone: Start: 05-06-[address] Christy Perea MD Work Phone: Start: 05-06-2025 Oxygen saturation measurement Genia Chappell MD Work Phone: Start: 04-30-2025 Carbon dioxide [...] Work Phone: Start: 03-24-2025 Blood count smear mc rscp w/mnl difrntl [...] Treatment Date Care Activity Detail Author Start: 09-15-2025 End: 09-15-2025 Patient encounter procedure [facility] -Pulmonary Services/Neurology Work Phone: Start: 07-01-2025 End: 07-01-2025 Evaluation of diagnostic study results [facility] Start: 05-08-2025 Admission procedure [facility] Start: 05-08-2025 Patient discharge [facility] Start: 05-07-2025 Serum inorganic phos phate measurement [facility] Start: 05-06-2025 Following clinical p athway protocol [facility] Start: 05-06-2025 Assessment of risk o f venous thromboembolism [facility] Start: 05-06-2025 Catheterization of vein [facility] Start: 05-06-2025 Incentive spirometry [facility] Start: 05-06-2025 Insertion of cathete r into peripheral vein [facility] Start: 05-06-2025 Measuring intake and output [facility] Start: 05-06-2025 Oxygen therapy [facility] Start: 05-06-2025 Providing care accor ding to standard [facility] Start: 05-06-2025 Provision of activit y privileges [facility] Start: 05-06-2025 Referral for physica l therapy [facility] Start: 05-06-2025 Referral to occupati onal therapist [facility] Start: 05-06-2025 Referral to service [facility] Start: 05-06-2025 [facility] Start: 05-06-2025 Continuous pulse oximetry [facility] Start: 05-06-2025 End: 05-06-2025 Hospital admission, emergency, from emergency room, medical nature [facility] Start: 05-06-2025 Verification routine [facility] Start: 05-06-2025 Admission procedure [facility] Start: 05-06-2025 Dual pressure sponta neous ventilation support [facility] Start: 05-06-2025 Inhalation therapy procedure [facility] Start: 05-06-2025 [facility] Start: 04-30-2025 [facility] Start: 04-10-2025 Patient discharge [facility] Start: 04-09-2025 Provision of activit y privileges [facility] Start: 04-08-2025 Referral to service [facility] Start: 04-07-2025 [facility] Start: 04-06-2025 End: 04-07-2025 [facility] Start: 04-06-2025 Care regimes management [facility] Start: 04-06-2025 Notification of physician [facility] Start: 04-06-2025 Consultation [facility] Start: 04-06-2025 Continuous pulse oximetry [facility] Start: 04-06-2025 Following clinical p athway protocol [facility] Start: 04-06-2025 Assessment of risk o f venous thromboembolism [facility] Start: 04-06-2025 Catheterization of vein [facility] Start: 04-06-2025 Insertion of cathete r into peripheral vein [facility] Start: 04-06-2025 Measuring intake and output [facility] Start: 04-06-2025 Oxygen therapy [facility] Start: 04-06-2025 Patient referral to dietitian [facility] Start: 04-06-2025 Providing care accor ding to standard [facility] Start: 04-06-2025 Provision of activit y privileges [facility] Start: 04-06-2025 Referral to occupati onal therapist [facility] Start: 04-06-2025 Referral to service [facility] Start: 04-06-2025 [facility] Start: 04-06-2025 Dual pressure sponta neous ventilation support [facility] Start: 04-06-2025 Inhalation therapy procedure [facility] Start: 04-05-2025 Verification routine [facility] Start: 04-05-2025 Admission procedure [facility] Start: 04-05-2025 CT of chest, abdomen and pelvis without contrast CT Chest, Abd, Pelvis [facility] Start: 04-05-2025 Hospital admission, emergency, from emergency room, medical nature [facility] Start: 04-05-2025 [facility] Start: 04-05-2025 End: 04-06-2025 [facility] Start: 04-05-2025 Bacteria identified in Blood by Culture Blood Culture [facility] Start: 04-05-2025 Blood culture Blood Culture [facility] Start: 04-05-2025 Continuous positive airway pressure ventilation treatment [facility] Start: 03-25-2025 [facility] Start: 03-24-2025 Patient discharge [facility] Start: 03-23-2025 Respiratory microbia l culture Respiratory Culture [facility] Start: 03-20-2025 Referral to service [facility] Start: 03-20-2025 Inhalation therapy procedure [facility] Start: 03-19-2025 End: 03-20-2025 [facility] Start: 03-19-2025 Following clinical p athway protocol [facility] Start: 03-19-2025 Assessment of risk o f venous thromboembolism [facility] Start: 03-19-2025 Catheterization of vein [facility] Start: 03-19-2025 Continuous positive airway pressure ventilation treatment [facility] Start: 03-19-2025 Insertion of cathete r into peripheral vein [facility] Start: 03-19-2025 Measuring intake and output [facility] Start: 03-19-2025 Oxygen therapy [facility] Start: 03-19-2025 Providing care accor ding to standard [facility] Start: 03-19-2025 Provision of activit y privileges [facility] Start: 03-19-2025 Referral to occupati onal therapist [facility] Start: 03-19-2025 Referral to service [facility] Start: 03-19-2025 Verification routine [facility] Start: 03-19-2025 Admission procedure [facility] Start: 03-19-2025 Patient referral to dietitian [facility] Start: 01-21-2024 [facility] Start: 01-21-2024 [facility] Start: 07-10-2023 Patient discharge [facility] Start: 07-08-2023 End: 07-09-2023 [facility] Start: 07-08-2023 Ambulation without limitation [facility] Start: 07-08-2023 Assessment of risk o f venous thromboembolism [facility] Start: 07-08-2023 Incentive spirometry [facility] Start: 07-08-2023 Inhalation therapy procedure [facility] Start: 07-08-2023 Insertion of cathete r into peripheral vein [facility] Start: 07-08-2023 Providing care accor ding to standard [facility] Start: 07-08-2023 Oxygen therapy [facility] Start: 07-08-2023 Following clinical p athway protocol [facility] Start: 07-08-2023 Verification routine [facility] Start: 07-08-2023 Admission procedure [facility] Start: 07-08-2023 Respiratory microbia l culture Respiratory Culture [facility] Start: 07-27-2022 Influenza vaccination INFLUENZA (#1) [facility] Start: 11-26-2021 ADVANCE DIRECTIVE DISCUSSION ADVANCE DIRECTIVE DISCUSSION [facility] Start: 2018 BONE DENSITY BONE DENSITY [facility] Start: 2018 PNEUMOCOCCAL: 65+ (1 - PCV) PNEUMOCOCCAL: 65+ (1 - PCV) [facility] Start: 2003 Influenza vaccination LUNG CANCER SC REENING [facility] Start: 2003 SHINGRIX VACCINE (1 of 2) GRIFFIN GRIX VACCINE (1 of 2) [facility] Start: 1998 COLOGUARD (FIT-DNA) COLOGUARD (FIT-D NA) [facility] Start: 1998 Colonoscopy COLONOSCOPY [facility] Start: 1998 COLORECTAL CANCER SCREENING COLORECTAL CANCER SCREENING [facility] Start: [address] COLONOGRAPHY [facility] Start: 1998 DIABETES SCREEN DIABETES SCREEN [facility] Start: 1998 FECAL OCCULT BLOOD FECAL OCCULT BLOO D [facility] Start: 1998 LIPID SCREEN LIPID SCREEN [facility] Start: 1998 SIGMOIDOSCOPY SIGMOIDOSCOPY [facility] Start: 1993 Mammography MAMMOGRAM [facility] Start: 1983 Zoledronic acid therapy ALPHA- 1 ANTITRYPSIN DEFICIENCY SCREENING [facility] Start: 1972 Urine microalbumin profile DTAP,TDAP ,TD (1 - Tdap) [facility] Start: 1971 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 DISEASE VISIT ANNUAL PCP TEAM CHRONIC DISEASE VISIT [facility] Start: 1971 HEPATITIS C SCREENING HEPATITIS C SC REENING [facility] Start: 1971 SPIROMETRY SPIROMETRY [facility] Start: 1965 Adult depression scr eening assessment DEPRESSION SCREENING [facility] Start: 1959 PNEUMOCOCCAL: 65+ (1 - PCV) PNEUMOCOCCAL: 65+ (1 - PCV) [facility] Start: 02-09-1956 COVID-19 VACCINE (#1) COVID-19 VACCI NE (#1) [facility] Alanine aminotransfe rase [Enzymatic activity/volume] in Serum or Plasma [facility] Albumin [Mass/volume ] in Serum or Plasma [facility] Alkaline phosphatase [Enzymatic activity/volume] in Serum or Plasma [facility] Anion gap in Serum o r Plasma [facility] Anion gap in Serum o r Plasma [facility] Basic metabolic 2008 panel with ionized calcium - Serum or Plasma [facility] Basic metabolic 2008 panel with ionized calcium - Serum or Plasma [facility] Bilirubin measuremen t, urine [facility] Bilirubin, total measurement [facility] BUN/Creatinine ratio [facility] BUN/Creatinine ratio [facility] Calcium [Mass/volume ] in Serum or Plasma [facility] Calcium [Mass/volume ] in Serum or Plasma [facility] Carbon dioxide, tota l [Moles/volume] in Central venous blood [facility] Carbon dioxide, tota l [Moles/volume] in Central venous blood [facility] CBC W Auto Different ial panel - Blood [facility] Complete blood count [facility] Comprehensive metabo lic 2000 panel - Serum or Plasma [facility] Creatinine [Mass/vol ume] in Serum or Plasma [facility] Creatinine [Mass/vol ume] in Serum or Plasma [facility] CT Unspecified body region WO [facility] Digoxin [Mass/volume ] in Serum or Plasma [facility] Erythrocyte mean corpuscular volume determination [facility] Erythrocyte mean corpuscular volume determination [facility] Erythrocyte mean corpuscular volume determination [facility] Erythrocyte mean corpuscular volume determination [facility] Erythrocyte mean corpuscular volume determination [facility] Evaluation of diagno stic study results [facility] Glucose [Mass/volume ] in Serum or Plasma [facility] Glucose [Mass/volume ] in Serum or Plasma [facility] Hematocrit [Volume Fraction] of Blood [facility] Hematocrit [Volume Fraction] of Blood [facility] Hematocrit [Volume Fraction] of Blood [facility] Hematocrit [Volume Fraction] of Blood [facility] Hematocrit [Volume Fraction] of Blood [facility] Hemoglobin [Mass/vol ume] in Blood [facility] Hemoglobin [Mass/vol ume] in Blood [facility] Hemoglobin [Mass/vol ume] in Blood [facility] Hemoglobin [Mass/vol ume] in Blood [facility] Hemoglobin [Mass/vol ume] in Blood [facility] Hemoglobin [Presence ] in Urine [facility] Leukocytes [#/volume ] in Blood [facility] Leukocytes [#/volume ] in Blood [facility] Leukocytes [#/volume ] in Blood [facility] Leukocytes [#/volume ] in Blood [facility] Leukocytes [#/volume ] in Blood [facility] Magnesium measurement [facility] Mean corpuscular hemoglobin concentration determination [facility] Mean corpuscular hemoglobin concentration determination [facility] Mean corpuscular hemoglobin concentration determination [facility] Mean corpuscular hemoglobin concentration determination [facility] Mean corpuscular hemoglobin concentration determination [facility] Mean corpuscular hemoglobin determination [facility] Mean corpuscular hemoglobin determination [facility] Mean corpuscular hemoglobin determination [facility] Mean corpuscular hemoglobin determination [facility] Mean corpuscular hemoglobin determination [facility] Measurement of keton es in urine using dipstick [facility] Measurement of renal function [facility] Measurement of renal function [facility] Microscopic urinalysis [facility] Natriuretic peptide. B prohormone N-Terminal [Mass/volume] in Serum or Plasma [facility] Neutrophil count [facility] Neutrophil count [facility] Neutrophil count [facility] Neutrophil count [facility] Neutrophil count [facility] Neutrophil percent differential count [facility] Neutrophil percent differential count [facility] Neutrophil percent differential count [facility] Neutrophil percent differential count [facility] Neutrophil percent differential count [facility] NM Heart Views W str ess and W radionuclide IV [facility] Patient Education [facility] Work Phone: Patient referral [facility] Work Phone: pH of Urine [facility] Platelets [#/volume] in Blood [facility] Platelets [#/volume] in Blood [facility] Platelets [#/volume] in Blood [facility] Platelets [#/volume] in Blood [facility] Platelets [#/volume] in Blood [facility] Potassium measurement [facility] Potassium measurement [facility] End: 06-18-2023 Pulmonary ventilation & perfusion imaging NM LUNG VENT / PERF VQ Radiology Routine Other secondary pulmonary hypertension (HCC) 1 Occurrences starting 05/19/2022 until 06/18/2023 [facility] Work Phone: Comment on above: 1 Occurrences starti ng 05/19/2022 until 06/18/2023 Red blood cell count [facility] Red blood cell count [facility] Red blood cell count [facility] Red blood cell count [facility] Red blood cell count [facility] Red cell distributio n width determination [facility] Red cell distributio n width determination [facility] Red cell distributio n width determination [facility] Red cell distributio n width determination [facility] Red cell distributio n width determination [facility] Serum chloride measurement [facility] Serum chloride measurement [facility] Sodium measurement [facility] Sodium measurement [facility] Specific gravity of Urine [facility] Thyroid stimulating hormone measurement [facility] Total protein measurement [facility] Troponin T.cardiac [Mass/volume] in Serum or Plasma by High sensitivity method [facility] Urea nitrogen [Mass/volume] in Serum or Plasma [facility] Urea nitrogen [Mass/volume] in Serum or Plasma [facility] Urine blood test [facility] Urine dipstick for glucose [facility] Urine dipstick for leukocyte esterase [facility] Urine dipstick for nitrite [facility] Urine dipstick for protein [facility] Urine examination [facility] Urine microscopy: epithelial cells The [facility] Urine Microscopy: wh ite cells [facility] Urobilinogen [Presen ce] in Urine [facility] XR ARTERY CATHETER ( POC) FOR REYNALDO USE ONLY XR ARTERY CATHETER (POC) FOR REYNALOD USE ONLY Imaging Procedures Routine Stage 3 severe COPD by GOLD classification (HCC) Ordered: 07/19/2022 [facility] Work Phone: Comment on above: Ordered: 07/19/2022 [facility] Immunizations Immunization Date Immunization Notes Care Provider Feliberto doty 01-24-2021 COVID-19 vaccine, fu ll dose (MODERNA) Naa Croft 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 Christy Perea Work Phone: [facility] Payers Date Payer Category Payer Private Health Insurance [id number] 2024 Self-pay [id number] 2021 Medicare AETNA MEDICARE A ETNA MEDICARE PPO [id number] 2021-Present [phone] [address] [place] [address] PPO [id number] 2021 Medicare AETNA MEDICARE A ETNA MEDICARE PPO [id number] 2021-Present [phone] [address] [place] [address] PPO [id number] Unknown [id number] Unknown [id number] 2.16.840.1.798127.3.579.2.4 62 Unknown [id number] 2.16.840.1.605835.3.579.2.4 62 Unknown [id number] 2.16.840.1.486202.3.579.2.4 62 Unknown [id number] 2.16.840.1.975573.3.579.2.4 62 Unknown [id number] 2.16.840.1.913511.3.579.2.4 62 Unknown [id number] 2.16.840.1.178122.3.579.2.4 62 Unknown [id number] 2.16.840.1.337587.3.579.2.4 62 Unknown [id number] 2.16.840.1.463464.3.579.2.4 62 Unknown [id number] 2.16.840.1.722087.3.579.2.4 62 Unknown [id number] 2.16.840.1.049507.3.579.2.4 62 Unknown [id number] 2.16.840.1.391964.3.579.2.4 62 Unknown [id number] 2.16.840.1.157962.3.579.2.4 62 Unknown [id number] 2.16.840.1.798605.3.579.2.4 62 Unknown [id number] 2.16.840.1.099744.3.579.2.4 62 Unknown [id number] 2.16.840.1.465029.3.579.2.4 62 Unknown [id number] 2.16.840.1.149178.3.579.2.4 62 Unknown [id number] 2.16.840.1.280568.3.579.2.4 62 Unknown [id number] 2.16.840.1.154986.3.579.2.4 62 Unknown [id number] 2.16.840.1.689232.3.579.2.4 62 Unknown [id number] 2.16.840.1.521294.3.579.2.4 62 Unknown [id number] 2.16.840.1.363627.3.579.2.4 62 Unknown [id number] 2.16.840.1.682158.3.579.2.4 62 Unknown [id number] 2.16.840.1.318345.3.579.2.4 62 Unknown [id number] 2.16.840.1.917612.3.579.2.4 62 Unknown [id number] 2.16.840.1.794110.3.579.2.4 62 Unknown [id number] 2.16.840.1.237091.3.579.2.4 62 Unknown [id number] 2.16.840.1.429904.3.579.2.4 62 Unknown [id number] 2.16.840.1.543395.3.579.2.4 62 Unknown [id number] 2.16.840.1.791261.3.579.2.4 62 Unknown [id number] 2.16.840.1.247392.3.579.2.4 62 Unknown [id number] 2.16.840.1.784026.3.579.2.4 62 Unknown [id number] 2.16.840.1.127256.3.579.2.4 62 Unknown [id number] 2.16.840.1.070442.3.579.2.4 62 Unknown [id number] 2.16.840.1.014401.3.579.2.4 62 Unknown [id number] 2.16.840.1.942151.3.579.2.4 62 Unknown [id number] 2.16.840.1.940288.3.579.2.4 62 Unknown [id number] 2.16.840.1.754092.3.579.2.4 62 Unknown [id number] 2.16.840.1.222600.3.579.2.4 62 Unknown [id number] 2.16.840.1.802837.3.579.2.4 62 Unknown [id number] 2.16.840.1.208390.3.579.2.4 62 Unknown [id number] 2.16.840.1.478499.3.579.2.4 62 Unknown [id number] 2.16.840.1.455337.3.579.2.4 62 Unknown [id number] 2.16.840.1.177845.3.579.2.4 62 Unknown [id number] 2.16.840.1.372945.3.579.2.4 62 Unknown [id number] 2.16.840.1.037685.3.579.2.4 62 Unknown [id number] 2.16.840.1.201227.3.579.2.4 62 Unknown [id number] 2.16.840.1.622343.3.579.2.4 62 Unknown [id number] 2.16.840.1.520912.3.579.2.4 62 Unknown [id number] 2.16.840.1.999308.3.579.2.4 62 Social History Date Type Detail Facility Start: 03-31-2022 End: 02-19-2024 Tobacco smoking status HIIS Unknown if ever smoked [facility] Start: 1955 Sex Assigned At Female [facility] Start: 1955 Sex Assigned At Not on file C [facility] Start: 05-21-2022 End: 07-19-2022 Exposure to SARS-CoV-2 (event) Not sure [facility] Start: 05-27-2022 End: 06-06-2022 Exposure to SARS-CoV-2 (event) Unable to assess [facility] Start: 06-30-2022 End: 09-01-2025 Tobacco smoking status NHIS Ex-smoker [facility] Work Phone: End: 06-30-2013 History of tobacco use Current smoker [facility] Work Phone: Start: 06-30-2022 Cigarettes smoked current (pack per day) - Reported 1.5 [facility] Start: 06-30-2022 Alcohol intake Ex-drinker (finding) [facility] End: 06-30-2013 History of tobacco use Cigarette Smoker [facility] Work Phone: Start: 02-16-2025 End: 03-24-2025 Sex Female (finding) [facility] Start: 08-10-2025 Tobacco smoking stat us NHIS Current Heavy tobacco smoker [facility] Sex Female [facility] Goals Date Patient Goal Desired Activity /State Functional Status Date Assessment Result Facility 05-08-2025 Functional status With Assist of 1 [facility] Work Phone: 05-07-2025 Functional status Bedrest [facility] Work Phone: 05-06-2025 Functional status With Assist of 2 [facility] Work Phone: 04-10-2025 Functional status Ambulates [facility] Work Phone: 04-08-2025 Functional status Ambulates [facility] Work Phone: 03-24-2025 Functional status Bathroom Privilege [facility] Work Phone: 07-10-2023 Functional status Ambulates [facility] Work Phone: Mental Status Date Assessment Result Facility 05-08-2025 Cognitive function Voice/Name [facility] Work Phone: 05-07-2025 Cognitive function Appropriate;Melisa denton [facility] Work Phone: 05-06-2025 Cognitive function Awake;Alert;A ppropriate;Follow s Commands [facility] Work Phone: 04-10-2025 Cognitive function Voice/Name [facility] Work Phone: 04-08-2025 Cognitive function Voice/Name [facility] Work Phone: 03-24-2025 Cognitive function Voice/Name [facility] Work Phone: 01-21-2024 Cognitive function Level Of Cons ciousness Awake;Alert;Appropriate [facility] Work Phone: 07-09-2023 Cognitive function Voice/Name [facility] Work Phone: Clinical Notes 05-18-2022 to 09-11-2025 Note Date & Type Note Facility 09-11-2025 Progress note [facility] 09-11-2025 Progress note Note Date/Time September 11, 2025 3:40pm [facility] [address] [place] [address], [address] [place] [address] OFFICE VISIT Date of Service: 09/11/25 MR#: [id number] Acct: [id number] Name: PIPER CLARK Rep #: [id number] : 1955 Provider: Dr. Senia Aguirre MD Age/Sex: 70/F Location: [facility] Status: Signed Intake Vital Signs 08/14/25 15:14 09/01/25 14:16 09/11/25 14:58 Height 5 ft 2 in 5 ft 2 in 5 ft 2 in Weight: 229 lb BMI 41.8 BP 143/67 H Pulse 75 Intake Visit Reasons: 4WK MED F/U Chief Complaint: 4 week gemtesa follow up Clothing Examiner Required: No Accompanied by: self Is patient in pain?: Yes (migraine ) Pain scale (1-10): 5 Allergies feathers Allergy (Intermediate, Verified 09/11/25 14:57) Shortness of breath house dust Allergy (Verified 09/11/25 14:57) Unknown mold Allergy (Verified 09/11/25 14:57) Unknown Medications ?Medication ?Instructions ?Recorded ?Confirmed ?Type montelukast 10 mg tablet 10 mg PO QHS allergies 09/0709/11/25 History fluticasone fur. 200 mcg-umeclid 1 inh inhalation BATSHEVA Y SOB 07/08/23 09/11/25 History 62.5 mcg-vilant 25 mcg inhalat.powder (Trelegy Ellipta) rimegepant 75 mg disintegrating 75 mg PO DAILY PRN olesya tamika 07/08/23 09/11/25 History tablet (Nurtec ODT) albuterol sulfate 90 mcg/actuation 2 puff inhalation Q 4H PRN 02/13/24 09/11/25 History aerosol inhaler Shortness Of Breath duloxetine 60 mg capsule,delayed 60 mg PO DAILY mood 1 11/30/23 09/11/25 History release apixaban 5 mg tablet (Eliquis) 5 mg PO BID blood thinn er #60 tabs 02/16/25 09/11/25 Rx fluticasone propionate 50 2 spray intranasal QHS nasal 03/19/25 09/11/25 History mcg/actuation nasal spray,suspension (24 Hour Allergy Relief) dapagliflozin propanediol 10 mg 10 mg PO QDAY #90 tabs 04/30/25 09/11/25 Rx tablet (Farxiga) spironolactone 25 mg tablet 25 mg PO DAILY #30 tabs 09/11/25 Rx furosemide 40 mg tablet 40 mg PO BID water pill #180 tabs 05/15/25 09/11/25 Rx metoprolol tartrate 50 mg tablet 50 mg PO BID #180 tab s 05/15/25 09/11/25 Rx cetirizine 10 mg capsule (Zyrtec) 10 mg PO QDAY PRN 09/11/25 History tizanidine 4 mg tablet 4 mg PO BID PRN 08/14/25 History Gemtesa 75 mg tablet (vibegron) 75 mg PO QDAY #90 tabs 09/11/25 09/11/25 Rx semaglutide (weight loss) 0.5 0.5 mg subcut QWEEK 08/2609/11/25 History mg/0.5 mL subcutaneous pen injector (Wegovy) Have you fallen in the past year?: No Nurse's Note: constipated now Bladder scan PVR 6cc. [facility] Medical History (Updated 09/01/25 @ 14:16 by Molly Shultz) Vulvar atrophy Urge incontinence Nocturia Overactive bladder Vaginal atrophy Alkalosis Respiratory acidosis Metabolic alkalosis Chronic respiratory failure with hypoxia and hypercapnia COPD (chronic obstructive pulmonary disease) Morbid obesity with BMI of 45.0-49.9, adult [...] (coronary artery disease) Diabetes C. difficile colitis Respiratory disease Arthritis Father CAD (coronary artery disease) Alcohol abuse Angina at rest Arthritis Myocardial infarction, Onset Age: 55 Hypertension High cholesterol Sister CAD (coronary artery disease) Brother , 62 Colon cancer Alcohol abuse Anxiety Cancer esophageal Depression Mental disorder Psychiatric care Son , 45 Drug overdose Other Atrial fibrillation CHF (congestive heart failure) Heart disease Social History (Updated 09/01/25 @ 14:16 by Molly Shultz) household members: spouse housing: house Smoking Status: Former smoker alcohol intake: never substance use type: does not use caffeine: Yes Type: coffee Number of servings: 2 what type of physical activity do you participate in: none HPI HPI Urology Chief Complaint: 4 week gemtesa follow up Details: PIPER CLARK, is a 70 F. She is here for medication follow up. She has been taking Gemtesa 75mg daily. She is having side effects from the medication. She is constipated right now. She has a stool softener and has not taken it in about a month. We discussed that she needs to take something. She is doing great!! Her pads are dry, and she is not even wearing one at home! She would like to continue with this medication. She has not had any urinary tract infections since the last visit. She has not had any blood in the urine since the last visit. She was confused because she was told her Rx from [facility] was sent to [facility] so she never got the compounded estriol/testosterone ointment. She has no new urologic concerns to discuss today. ROS Const Constitutional: No chills, fatigue, fever(s), headache(s), night sweats, weakness, weight change, abnormal sleep pattern or change in appetite Eyes Eyes: No change in vision ENT ENT: No headache(s) or dry mouth Resp Respiratory: No cough, chest congestion, shortness of breath or wheezing Cardio Cardiology: Positive for other (No chest pain.); No shortness of breath, irregular heart rhythm or lightheadedness Gastro GI: Positive for constipation and other (No nausea.); No abdominal pain, diarrhea or vomiting Musc Musculoskeletal: No abnormal gait Skin Skin: No yellowing of the eye, lesions, itchy eyes, rash or skin ulcer Neuro Neurology: No abnormal gait, confusion, dizziness, weakness, headache(s) or memory loss Psych Psychiatric: No abnormal sleep pattern, No change in appetite, No confusion and No memory loss Endo Endocrine: No fatigue, increased thirst/drinking or weight change Aller/Imm Allergy/Immunologic: No itchy eyes or wheezing Nahum/Lymp Hematologic/Lymphatic: No easy bleeding, easy bruising or enlarged lymph nodes Exam Const General: cooperative, healthy appearing, comfortable and no acute distress [facility] Head: normocephalic and atraumatic Ears: hearing grossly normal bilaterally and external ears normal Nose: external nose normal Eyes General: appearance normal, both eyes and all related structures Neck Neck: normal visual inspection and trachea midline Chest Chest palpation & inspection: normal inspection of the chest Resp Effort & Inspection: normal respiratory effort, able to speak in complete sentences and symmetric chest movement Cardio Rate: regular rate GI Inspection: normal to inspection Palpation: soft and nontender General: No CVA tenderness Skin General: no rashes or lesions noted Neuro General: patient alert, patient awake, patient oriented x3 and CN's II-XI intactbilaterally Extrem General: normal to inspection Psych Appearance: grossly normal and well kempt Mental Status: mental status grossly normal Office Procedures Post Void Residual Post Void Residual: 8cc Results POC UA Auto w/o Microscopy Office Urine Color Last Edit by Meena Tong on 09/11/25 15:02 Office Urine Clarity Last Edit by Meena Tong on 09/11/25 15:02 Office Urine Glucose 1000 g/dL Last Edit by Meena Tong on 09/11/25 15: 02 Office Urine Ketones Negative Last Edit by Meena Tong on 09/11/25 15:0 2 Office Urine Bilirubin Negative Last Edit by Meena Tong on 09/11/25 15 :02 Office Urine Urobilinogen 0.2 mg/dL Last Edit by Meena Tong on 5 15:02 Off Ur Spec [place] 1.010 Last Edit by Meena Tong on 09/11/25 15:02 Office Urine pH 6.5 Last Edit by Meena Tong on 09/11/25 15:02 Office Urine Protein Negative Last Edit by Meena Tong on 09/11/25 15:0 2 Office Urine Blood Negative Last Edit by Meena Tong on 09/11/25 15:02 Office Urine Blood Hemolyzed Negative Last Edit by Meena Tong on 09/11 15:02 Office Urine Nitrate Negative Last Edit by Meena Tong on 09/11/25 15:0 2 Off Ur Leukocytes Negatve Last Edit by Meena Tong on 09/11/25 15:02 Coding Level of Care Code Off vis,est,level 4 Diagnoses Vaginal itching N89.8 Vaginal atrophy N95.2 Overactive bladder N32.81 Nocturia R35.1 Urge incontinence N39.41 Vulvar atrophy N90.5 Assessment and Plan Assessment and Plan (1) Vaginal itching: Status: Acute (2) Vaginal atrophy: Status: Acute (3) Overactive bladder: Status: Acute (4) Nocturia: Status: Acute (5) Urge incontinence: Status: Acute (6) Vulvar atrophy: Status: Acute Orders: Orders POC UA Auto w/o Microscopy 09/11/25 N39.41 - Urge incontinence PVR 09/11/25 N39.41 - Urge incontinence Medications: New Gemtesa (vibegron) 75 mg PO QDAY 90 tabs 3RF NS Plan boric acid suppositories as needed continue Gemtesa with samples and Rx Rx to [facility] for the estriol/testosterone Plan Details Follow Up: 3 Months (med f/u Gemtesa samples) Comments Comments: Gemtesa samples Clinical Quality Measures Falls Risk Screening/Assistive Devices Have you fallen in the past year?: No 09/13/252149 <Electronically signed by Patsy Aguirre MD> Date _ Patsy [facility]irre [facility] Signature: Date (if applicable) CC: ~ [facility] Work Phone: 1(391) 513-157010-07-2025 Progress [facility] [address] [place] [address]. [address] [place] [address] OFFICE VISIT Date of Service: 09/01/25 MR#: [id number] Acct: [id number] Name: PIPER CLARK Rep #: [id number] : 1955 Provider: Dr. Aman Springer MD Age/Sex: 70/F Location: [facility] Status: Signed Intake Vital Signs 08/14/25 15:14 09/01/25 14:16 Height 5 ft 2 in 5 ft 2 in Weight: 230 lb 229 lb BMI 42.0 41.8 BP 138/84 H 112/68 Blood Pressure Location Rt brachial Position Sitting Respiration 19 H Pulse 89 78 Pulse Source Monitor Pulse Oximetry (%) 97 Oxygen Delivery Method nasal canula Oxygen Flow Rate (L/min) 4 Intake Visit Reasons: SELF REFERRED HERNIA Chief Complaint: self referred umbilical hernia Is patient in pain?: No Allergies feathers Allergy (Intermediate, Verified 09/01/25 14:17) Shortness of breath house dust Allergy (Verified 09/01/25 14:17) Unknown mold Allergy (Verified 09/01/25 14:17) Unknown Medications ?Medication ?Instructions ?Recorded ?Confirmed ?Type montelukast 10 mg tablet 10 mg PO QHS allergies 09/0709/01/25 History fluticasone fur. 200 mcg-umeclid 1 inh inhalation BATSHEVA Y SOB 07/08/23 09/01/25 History 62.5 mcg-vilant 25 mcg inhalat.powder (Trelegy Ellipta) rimegepant 75 mg disintegrating 75 mg PO DAILY PRN olesya tamika 07/08/23 09/01/25 History tablet (Nurtec ODT) albuterol sulfate 90 mcg/actuation 2 puff inhalation Q 4H PRN 02/13/24 09/01/25 History aerosol inhaler Shortness Of Breath duloxetine 60 mg capsule,delayed 60 mg PO DAILY mood 1 11/30/23 09/01/25 History release apixaban 5 mg tablet (Eliquis) 5 mg PO BID blood thinn er #60 tabs 02/16/25 09/01/25 Rx fluticasone propionate 50 2 spray intranasal QHS nasal 03/19/25 09/01/25 History mcg/actuation nasal spray,suspension (24 Hour Allergy Relief) dapagliflozin propanediol 10 mg 10 mg PO QDAY #90 tabs 04/30/25 09/01/25 Rx tablet (Farxiga) spironolactone 25 mg tablet 25 mg PO DAILY #30 tabs 09/01/25 Rx furosemide 40 mg tablet 40 mg PO BID water pill #180 tabs 05/15/25 09/01/25 Rx metoprolol tartrate 50 mg tablet 50 mg PO BID #180 tab s 05/15/25 09/01/25 Rx cetirizine 10 mg capsule (Zyrtec) 10 mg PO QDAY PRN 09/01/25 History tizanidine 4 mg tablet 4 mg PO BID PRN 08/14/2506/19 History metronidazole 500 mg tablet 500 mg PO BID #14 tabs 09/01/25 Rx gemtessa PO urinary incontinence 06/19 History Have you fallen in the past year?: No PFSH Medical History (Updated 09/01/25 @ 14:16 by Molly Shultz) Vulvar atrophy Urge incontinence Nocturia Overactive bladder Vaginal atrophy Alkalosis Respiratory acidosis Metabolic alkalosis Chronic respiratory failure with hypoxia and hypercapnia COPD (chronic obstructive pulmonary disease) Morbid obesity with BMI of 45.0-49.9, adult [...] (coronary artery disease) Diabetes C. difficile colitis Respiratory disease Arthritis Father CAD (coronary artery disease) Alcohol abuse Angina at rest Arthritis Myocardial infarction, Onset Age: 55 Hypertension High cholesterol Sister CAD (coronary artery disease) Brother , 62 Colon cancer Alcohol abuse Anxiety Cancer esophageal Depression Mental disorder Psychiatric care Son , 45 Drug overdose Other Atrial fibrillation CHF (congestive heart failure) Heart disease Social History (Updated 09/01/25 @ 14:16 by Molly Shultz) household members: spouse housing: house Smoking Status: Former smoker alcohol intake: never substance use type: does not use caffeine: Yes Type: coffee Number of servings: 2 what type of physical activity do you participate in: none HPI HPI HPI: Patient is a 70-year-old female with a small umbilical hernia. She reports thishas been there for several years. She reports that she has a mild tugging pain in the area. ROS General General: Yes fatigue; No weight change, appetite, colon cancer, breast cancer or weakness HEENT HEENT: Yes eye surgery; No difficulty swallowing, eye injury, swollen glands or hoarseness Endo Endocrine: Yes diabetes mellitus; No thyroid disease, thyroid cancer, Hair loss, heat intolerance or cold intolerance Skin Skin: No rash or changing moles Musc Musculoskeletal: Yes back problems and arthritis; No rheumatoid arthritis, gout or joint pain Cardio Cardiovascular: Yes heart disease, atrial fibrillation and high blood pressure; No murmur, pacemaker, heart attack, heart stent, palpitations, shortness of breath with exertion orchest pain Psych Psychiatric: Yes depression and anxiety; No hearing voices Resp Respiratory: Yes shortness of breath, Yes sleep apnea, No cough, Yes COPD, No asthma, No emphysema and No wheezing Additional Details: Uses portable oxygen, 4liters Gastro Gastrointestinal: Yes abdominal pain, Yes nausea or vomiting, No diarrhea, Yes constipation, No blood in stool, No acid reflux, No hemorrhoids, No ulcers, No gallbladder problem and No black,tarry stools Nahum Hematologic: Yes blood thinners, No blood disorders, No bleeding, No anemia and No blood clots Neuro Neurologic: No system reviewed and no additional complaints, except as documented, No as per HPI, No abnormal gait, No abnormal hearing, No abnormal movements, No abnormal speech, No behavioral changes, No burning sensations, No confusion, No convulsions, No disequilibrium, No dizziness, No localized weakness, No frequent falls, No headache(s), No lack of coordination, No loss ofvision, No memoryloss, No numbness, No other visual disturbances, No radicular pain, No restless legs, No sensory deficit, No syncope, No tingling, No tremor(s), No weakness and No other Exam Const General: cooperative Orientation: alert and oriented x3 HENMT Head: normal to inspection Neck Neck: normal visual inspection and full ROM Chest Chest palpation & inspection: normal inspection of the chest Resp Effort & Inspection: normal respiratory effort Auscultation: clear to auscultation bilaterally Cardio Rate: regular rate Rhythm: regular rhythm GI Inspection: non-distended Palpation: soft and nontender Skin General: no rashes or lesions noted Neuro General: patient alert and patient oriented x3 Extrem General: full ROM Psych Appearance: grossly normal Mental Status: mental status grossly normal Assessment and Plan Assessment and Plan (1) Umbilical hernia: Status: Acute Plan: The patient has a very small umbilical hernia which is measuring about a millimeter. There is a small amount of fat that is reducible inside of it. I discussed repair with her and she is thinking about it. I discussed the repair as well as the risks of bleeding and infection and injury to underlying organs. Patient understands the risks and would like to go home and think about surgery and will call us back if she would like to proceed. Oscar Springer MD Pager: [facility] [address] [place] [address], [address] [place] [address] Office: Coding Level of Care Code Off vis,new,level 3 Diagnoses Umbilical hernia K42.9 Clinical Quality Measures Falls Risk Screening/Assistive Devices Have you fallen in the past year?: No 09/01/25 1447 dora NORRIS> Date _ Oscar Springer MD Cosigner Signature: Date (if applicable) CC: ~ [facility]10-07-2025 Progress note Author Oscar Springer [facility] Note Date/Time September 01, 2025 2: 47pm [facility] [address] [place] [address] OFFICE VISIT Date of Service: 09/01/25 MR#: [id number] Acct: [id number] Name: BENITOPIPER L Rep #: [id number] : 1955 Provider: Dr. Aman Springer MD Age/Sex: 70/F Location: [facility] Status: Signed Intake Vital Signs 08/14/25 15:14 09/01/25 14:16 Height 5 ft 2 in 5 ft 2 in Weight: 230 lb 229 lb BMI 42.0 41.8 BP 138/84 H 112/68 Blood Pressure Location Rt brachial Position Sitting Respiration 19 H Pulse 89 78 Pulse Source Monitor Pulse Oximetry (%) 97 Oxygen Delivery Method nasal canula Oxygen Flow Rate (L/min) 4 Intake Visit Reasons: SELF REFERRED HERNIA Chief Complaint: self referred umbilical hernia Is patient in pain?: No Allergies feathers Allergy (Intermediate, Verified 09/01/25 14:17) Shortness of breath house dust Allergy (Verified 09/01/25 14:17) Unknown mold Allergy (Verified 09/01/25 14:17) Unknown Medications ?Medication ?Instructions ?Recorded ?Confirmed ?Type montelukast 10 mg tablet 10 mg PO QHS allergies 09/0709/01/25 History fluticasone fur. 200 mcg-umeclid 1 inh inhalation BATSHEVA Y SOB 07/08/23 09/01/25 History 62.5 mcg-vilant 25 mcg inhalat.powder (Trelegy Ellipta) rimegepant 75 mg disintegrating 75 mg PO DAILY PRN olesya tamika 07/08/23 09/01/25 History tablet (Nurtec ODT) albuterol sulfate 90 mcg/actuation 2 puff inhalation Q 4H PRN 02/13/24 09/01/25 History aerosol inhaler Shortness Of Breath duloxetine 60 mg capsule,delayed 60 mg PO DAILY mood 1 11/30/23 09/01/25 History release apixaban 5 mg tablet (Eliquis) 5 mg PO BID blood thinn er #60 tabs 02/16/25 09/01/25 Rx fluticasone propionate 50 2 spray intranasal QHS nasal 03/19/25 09/01/25 History mcg/actuation nasal spray,suspension (24 Hour Allergy Relief) dapagliflozin propanediol 10 mg 10 mg PO QDAY #90 tabs 04/30/25 09/01/25 Rx tablet (Farxiga) spironolactone 25 mg tablet 25 mg PO DAILY #30 tabs 09/01/25 Rx furosemide 40 mg tablet 40 mg PO BID water pill #180 tabs 05/15/25 09/01/25 Rx metoprolol tartrate 50 mg tablet 50 mg PO BID #180 tab s 05/15/25 09/01/25 Rx cetirizine 10 mg capsule (Zyrtec) 10 mg PO QDAY PRN 09/01/25 History tizanidine 4 mg tablet 4 mg PO BID PRN 08/14/2506/19 History metronidazole 500 mg tablet 500 mg PO BID #14 tabs 09/01/25 Rx gemtessa PO urinary incontinence 06/19 History Have you fallen in the past year?: No PFSH Medical History (Updated 09/01/25 @ 14:16 by Molly Shultz) Vulvar atrophy Urge incontinence Nocturia Overactive bladder Vaginal atrophy Alkalosis Respiratory acidosis Metabolic alkalosis Chronic respiratory failure with hypoxia and hypercapnia COPD (chronic obstructive pulmonary disease) Morbid obesity with BMI of 45.0-49.9, adult [...] (coronary artery disease) Diabetes C. difficile colitis Respiratory disease Arthritis Father CAD (coronary artery disease) Alcohol abuse Angina at rest Arthritis Myocardial infarction, Onset Age: 55 Hypertension High cholesterol Sister CAD (coronary artery disease) Brother , 62 Colon cancer Alcohol abuse Anxiety Cancer esophageal Depression Mental disorder Psychiatric care Son , 45 Drug overdose Other Atrial fibrillation CHF (congestive heart failure) Heart disease Social History (Updated 09/01/25 @ 14:16 by Molly Shultz) household members: spouse housing: house Smoking Status: Former smoker alcohol intake: never substance use type: does not use caffeine: Yes Type: coffee Number of servings: 2 what type of physical activity do you participate in: none HPI HPI HPI: Patient is a 70-year-old female with a small umbilical hernia. She reports thishas been there for several years. She reports that she has a mild tugging pain in the area. ROS General General: Yes fatigue; No weight change, appetite, colon cancer, breast cancer or weakness HEENT HEENT: Yes eye surgery; No difficulty swallowing, eye injury, swollen glands or hoarseness Endo Endocrine: Yes diabetes mellitus; No thyroid disease, thyroid cancer, Hair loss, heat intolerance or cold intolerance Skin Skin: No rash or changing moles Musc Musculoskeletal: Yes back problems and arthritis; No rheumatoid arthritis, gout or joint pain Cardio Cardiovascular: Yes heart disease, atrial fibrillation and high blood pressure; No murmur, pacemaker, heart attack, heart stent, palpitations, shortness of breath with exertion or chest pain Psych Psychiatric: Yes depression and anxiety; No hearing voices Resp Respiratory: Yes shortness of breath, Yes sleep apnea, No cough, Yes COPD, No asthma, No emphysema and No wheezing Additional Details: Uses portable oxygen, 4liters Gastro Gastrointestinal: Yes abdominal pain, Yes nausea or vomiting, No diarrhea, Yes constipation, No blood in stool, No acid reflux, No hemorrhoids, No ulcers, No gallbladder problem and No black,tarry stools Nahum Hematologic: Yes blood thinners, No blood disorders, No bleeding, No anemia and No blood clots Neuro Neurologic: No system reviewed and no additional complaints, except as documented, No as per HPI, No abnormal gait, No abnormal hearing, No abnormal movements, No abnormal speech, No behavioral changes, No burning sensations, No confusion, No convulsions, No disequilibrium, No dizziness, No localized weakness, No frequent falls, No headache(s), No lack of coordination, No loss ofvision, No memory loss, No numbness, No other visual disturbances, No radicular pain, No restless legs, No sensory deficit, No syncope, No tingling, No tremor(s), No weakness and No other Exam Const General: cooperative Orientation: alert and oriented x3 HENMT Head: normal to inspection Neck Neck: normal visual inspection and full ROM Chest Chest palpation & inspection: normal inspection of the chest Resp Effort & Inspection: normal respiratory effort Auscultation: clear to auscultation bilaterally Cardio Rate: regular rate Rhythm: regular rhythm GI Inspection: non-distended Palpation: soft and nontender Skin General: no rashes or lesions noted Neuro General: patient alert and patient oriented x3 Extrem General: full ROM Psych Appearance: grossly normal Mental Status: mental status grossly normal Assessment and Plan Assessment and Plan (1) Umbilical hernia: Status: Acute Plan: The patient has a very small umbilical hernia which is measuring about a millimeter. There is a small amount of fat that is reducible inside of it. I discussed repair with her and she is thinking about it. I discussed the repair as well as the risks of bleeding and infection and injury to underlying organs. Patient understands the risks and would like to go home and think about surgery and will call us back if she would like to proceed. Oscar Springer MD Pager: [facility] [address] [place] [address], [address] [place] [address] Office: Coding Level of Care Code Off vis,new,level 3 Diagnoses Umbilical hernia K42.9 Clinical Quality Measures Falls Risk Screening/Assistive Devices Have you fallen in the past year?: No 09/01/25 9520 <Electronically signed by Oscar john MD> Date _ Oscar Springer MD [facility] Signature: Date (if applicable) CC: ~ [facility] Work Phone: [phone] Radiology Diagnostic study [facility]07-07-2025 Evaluation note* Diagnosis Onset Date Resolution Status Admit Date Fatigue acute June 01, 2025 11:17am (HFpEF) heart failure with preserved ejection fraction chronic June 01, 2025 11:17am Atrial fibrillation chronic June 01, 2025 11:17am Chronic airway obstruction chronic June 01, 2025 11:17am Coronary artery disease chronic J ally 2024 11:17am Hypertension chronic June 01 11:17am Morbid obesity chronic June 01, 2025 11:17am Sleep apnea chronic June 01 11:17am Acute confusion resolved June 01, 2025 11:17am Chronic anticoagulation acute A ugust 2024 10:30am Edema acute July 01 10:30am WINIFRED (obstructive sleep apnea) acute July 01, 2025 10:30am (HFpEF) heart failure with preserved ejection fraction chronic Augu st 2024 10:30am Atrial fibrillation chronic Augus t 2024 10:30am Coronary artery disease chronic A ugust 2024 10:30am Hypertension chronic July 01, 2025 10:30am Nocturia acute July 2:25pm Overactive bladder acute 2024 2:25pm Urge incontinence acute 2024 2:25pm Vaginal atrophy acute August 14, 2025 2:25pm Vaginal itching acute August 14, 2025 2:25pm Vulvar atrophy acute August 14, 2025 2:25pm Umbilical hernia acute September 01, 2025 2:03pm Nocturia acute September 11, 2025 2:28pm Overactive bladder acute 2024 2:28pm Urge incontinence acute September 11, 2025 2:28pm Vaginal atrophy acute August 262024 2:28pm Vaginal itching acute August 262024 2:28pm Vulvar atrophy acute September 112024 2:28pm [facility] Work Phone: [phone]) 643-751106-13-2025 [facility]06-12-2025 Progress note Author [facility] Note Date/Time May 07, 2025 6:28 pm [facility] Medical Records Department [address] [place] [address] Progress Note 05/07/25 1451 MR#: [id number] Acct: [id number] Name: PIPER CLARK Rep #:[id number] : 1955 69 From: Cindi Lizarraga MD PCP: Dr. Genia Chappell MD Status:ADM IN O Location: MS2 [id number] Subjective Subjective Patient seen and examined. She said she felt a bit better today. She denied any lightheadedness, dizziness, palpitations, nausea, vomiting or any other symptoms. Review of systems is otherwise negative. Objective Data Objective Data Vital Signs: Vital Signs Temp Pulse Resp BP Pulse Ox O2 Del Method O2 Flow Rate 98.1 F 79 17 132/48 H 94 Nasal Cannula 4 05/07/25 04:00 05/07/25 08:45 05/07/25 09:25 05/07/25 04:00 05/07/25 04:00 05/07/25 09:25 05/07/25 09:25 FiO2 35 05/06/25 06:22 Oxygen Flow Rate (L/min) 4 Oxygen Delivery Method Nasal Cannula Weight: 224 lb 13.944 oz Body Mass Index (BMI) 41.1 Intake & Output: Intake and Output for Last 24 Hours 05/05/25 05/06/25 05/07/25 23:59 23:59 23:59 Intake Total 1025.33 / 1025.33 Output Total 450 / 450 400 / 400 Balance 575.33 / 575.33 -400 / -400 Lab / Micro Data 05/07/25 04:15 05/07/25 04:15 Labs: Laboratory Results - last 24 hr 05/06/25 11:38: Urine Color Cancelled, Urine Clarity Cancelled, Urine pH Cancelled, Ur Specific [place] Cancelled, U Specif Grav (Refrac) Cancelled, Urine Protein Cancelled, Urine Glucose (UA) Cancelled, Urine Ketones Cancelled, Urine Occult Blood Cancelled, Urine Nitrite Cancelled, Urine Bilirubin Cancelled, Urine Urobilinogen Cancelled, Ur Leukocyte Esterase Cancelled, Urine RBC Cancelled, Urine WBC Cancelled, Ur Squamous Epith Cells Cancelled, Ur Transition Epith Cell Cancelled, Ur Renal Epithelial Cell Cancelled, Calcium Oxalate Crystal Cancelled, Uric Acid Crystals Cancelled, Triple Phos Crystals Cancelled, Other Crystals Cancelled, Amorphous Sediment Cancelled, Urine Bacteria Cancelled, Hyaline Casts Cancelled, Fine Granular Casts Cancelled, Coarse Granular Casts Cancelled, Waxy Casts Cancelled, RBC Casts Cancelled, WBC Casts Cancelled, Urine Mucus Cancelled, Urine Trichomonas Cancelled, Urine YeastCancelled 05/06/25 18:30: Sodium 137, Potassium 3.9, Chloride 85 L, Carbon Dioxide 45.0 H,Anion Gap 7, BUN 19, Creatinine 1.02, Estim Creat Clear Calc 56.59, Est GFR (MDRD) Non-Af 59 L, BUN/Creatinine Ratio 18.4, Glucose 178 H, Calcium 9.9 05/07/25 04:15: WBC 12.0 H, RBC 4.22, Hgb 12.1, Hct 40.1, MCV 95.0, MCH 28.7, MCHC 30.2 L, RDW Std Deviation 53.5 H, RDW Coeff of Beena 15.5 H, Plt Count 362, MPV 9.3, Immature Gran % (Auto) 1.500 H, Neut % (Auto) 69.6, Lymph % (Auto) 14.6L, [place] % (Auto) 11.7 H, Eos % (Auto) 1.9, Baso % (Auto) 0.7, Absolute Neuts (auto) 8.4 H, Absolute Lymphs (auto) 1.75, Nucleated RBC % 0, Sodium 136, Potassium 3.4, Chloride 87 L, Carbon Dioxide 37.5 H, Anion Gap 11, BUN 18, Creatinine 0.83, Estim Creat Clear Calc 69.54, Est GFR (MDRD) Non-Af 75, BUN/Creatinine Ratio 22.0 H, Glucose 102 H, Calcium 9.7, Phosphorus 3.0, Total Bilirubin 0.48, AST 23, ALT 16, Alkaline Phosphatase 73, Total Protein 6.4, Albumin 3.4, Globulin 2.9, Albumin/Globulin Ratio 1.2 05/07/25 11:38: Urine Color Yellow, Urine Clarity Clear, Urine pH 8.0, Ur Specific [place] 1.010, Urine Protein Negative, Urine Glucose (UA) 1000 H, UrineKetones Negative, Urine Occult Blood Negative, Urine Nitrite Negative, Urine Bilirubin Negative, Urine Urobilinogen Normal, Ur Leukocyte Esterase Negative, Urine RBC 0 SEEN, Urine WBC 0 SEEN, Ur Squamous Epith Cells 0-5 SEEN, Urine Bacteria 0 SEEN, Urine Mucus 0 SEEN Physical Exam Const alert, oriented x3 and no apparent distress Constitutional Narrative: Weak and frail. Class III obesity General Appearance: cooperative HEENT normocephalic, head/scalp atraumatic, hearing grossly normal bilaterally, moist oral mucous membranes and oropharynx normal Eyes PERRL and EOMs intact bilaterally Neck supple and no JVD Lymph Lymphatic: no lymphedema noted Resp Resp Narrative: mildly diminished breath sounds bibasally, no wheezes or crackles. On 4L oxygen which is her baseline. Cardio regular rate, regular rhythm, S1 normal heart sound, S2 normal heart sound and no murmurs GI normal to inspection, nondistended, normoactive bowel sounds, soft to palpation,non-tender and non-distended GI Narrative: obese abdomen Extremity normal capillary refill Extremity Narrative: Trace bilateral lower extremity edema, pedal pulses and radial pulses are 2+, noclubbing or cyanosis General Extremity: no tenderness to palpation of joints or extremities Skin General Skin Exam: no breakdown Neuro oriented x3, CN's II-XII intact bilaterally, moves all extremities, no focal motor deficits and no sensory deficits noted Motor Exam: general weakness Psych thought process normal and cooperative Appearance: appropriate Mood & Affect: flat affect Assessment & Plan Assessment/Plan (1) Weakness: (2) Acute hypokalemia: PLAN: Plan #Debility and weakness due to acute hypokalemia with contraction alkalosis * hypokalemia has resolved. K today is 3.4 and went up to 3.9 yesterday. * Metolazone and Lasix on hold. * She did receive a dose of Diamox in the ED also. Bicarb today is 37.5. It was up to 45 yesterday and at the time she came to the ED was more than 50. * PT OT on board. Fall precautions. #Acute encephalopathy likely due to metabolic derangement: * Resolved. Patient now at her baseline. #Chronic respiratory failure: * On 4 L of oxygen chronically at home. * She also has chronically elevated pCO2 * Breathing treatments bronchodilators. Titrate oxygen to maintain saturation above 90%. #WINIFRED: On BiPAP nightly #History of COPD: Not in exacerbation. Breathing treatments bronchodilators. #History of atrial fibrillation: On metoprolol and Eliquis. Also on digoxin. #Benign essential hypertension: On metoprolol #Nonobstructive CAD: Stable. #Chronic heart failure preserved ejection fraction: * Not in exacerbation. On Jardiance. Lasix and metolazone on hold due to hypokalemia. * Lasix echo showed EF of 65%. * resume lasix today with potassium supplementation * #History of migraines: Stable #DVT prophylaxis: On Eliquis CODE STATUS: Full code Charges/Coding Visit Charges Inpatient E&M: 04276 Subs Hosp L2 05/07/258 <Electronically signed by Cindi Lizarraga MD> Cindi Lizarraga MD Cosigner Signature (if applicable): CC: ~ Signed [facility] Work Phone: 1([phone]) 493-403906-11-2025 Progress note Author [facility] Note Date/Time May 06, 2025 5:53 pm [facility] Medical Records Department [address] [place] [address] Progress Note 05/06/25 1745 MR#: [id number] Acct: [id number] Name: PIPER CLARK Rep #:[id number] : 1955 69 From: Cindi Lizarraga MD PCP: Dr. Genia Chappell MD Status:ADM IN Location: [place] [address] Subjective Subjective Patient seen and examined. She was seen in the ED. She was admitted with a complaint of generalized weakness with muscle twitching and confusion. She was found to be hypokalemic. She is therefore being managed for hypokalemia Patient seen in the ED. She still felt weak. She denied any pain, fever or chills, any nausea or vomiting or any other symptoms. Review of systems otherwise negative. Objective Data Objective Data Vital Signs: Vital Signs Temp Pulse Resp BP Pulse Ox O2 Del Method O2 Flow Rate 98.4 F 88 18 144/82 H 94 Nasal Cannula 4 05/06/25 11:14 05/06/25 13:29 05/06/25 13:29 05/06/25 11:14 05/06/25 11:14 05/06/25 11:14 05/06/25 16:37 FiO2 35 05/06/25 06:22 Oxygen Flow Rate (L/min) 4 Oxygen Delivery Method Nasal Cannula Weight: 224 lb 13.944 oz Body Mass Index (BMI) 41.1 Intake & Output: Intake and Output for Last 24 Hours 05/04/25 05/05/25 05/06/25 23:59 23:59 23:59 Intake Total 790 / 790 Output Total 450 / 450 Balance 340 / 340 Lab / Micro Data 05/06/25 08:45 05/06/25 08:45 Labs: Laboratory Results - last 24 hr 05/05/25 23:51: WBC 13.2 H, RBC 4.35, Hgb 12.5, Hct 40.1, MCV 92.2, MCH 28.7, MCHC 31.2 L, RDW Std Deviation 51.0 H, RDW Coeff of Beena 15.1 H, Plt Count 477 H, MPV 9.4, Immature Gran % (Auto) 0.900, Neut % (Auto) 77.7 H, Lymph % (Auto) 9.7 L, [place] % (Auto) 11.1 H, Eos % (Auto) [...] 6.9, Albumin 3.8, Globulin 3.1, Digoxin 1.15 05/06/25 02:39: Sodium 135, Potassium 2.6 L*, Chloride 75 L, Carbon Dioxide 49.8H*, Anion Gap 10, BUN 19, Creatinine 0.86, Estim Creat Clear Calc 67.57, Est GFR(MDRD) Non-Af 72, BUN/Creatinine Ratio 22.0 H, Glucose 117 H, Calcium 9.9 05/06/25 08:45: WBC 14.9 H, RBC 3.97 L, Hgb 11.4 L, Hct 37.0, MCV 93.2, MCH 28.7, MCHC 30.8 L, RDW Std Deviation 52.1 H, RDW Coeff of Beena 15.2 H, Plt Count 477 H, MPV 9.6, Immature Gran % (Auto) 0.700, Neut % (Auto) 74.1 H, Lymph % (Auto) 13.8 L, [place] % (Auto) 10.9 H, Eos % (Auto) 0.2, Baso % (Auto) 0.3, Absolute Neuts (auto) 11.0 H, Absolute Lymphs (auto) 2.05, Nucleated RBC % 0, Differential Comment COMMENT, Sodium 135, Potassium 2.6 L*, Chloride 78 L, Carbon Dioxide 47.7 H*, Anion Gap 10, BUN 17, Creatinine 0.85, Estim Creat Clear Calc 68.37, Est GFR (MDRD) Non-Af 73, BUN/Creatinine Ratio 20.2 H, Glucose 117 H, Calcium 10.0, Phosphorus 3.5 ABG Data ABG results: ABG 05/06/25 01:33 [...] To/Read Back Yes Blood Gas Notified [facility] Blood Gas Notified Time 01:34:56 Physical Exam Const alert and oriented x3 Constitutional Narrative: Weak and frail. Class III obesity General Appearance: cooperative HEENT normocephalic, head/scalp atraumatic, moist oral mucous membranes and oropharynxnormal Eyes PERRL and EOMs intact bilaterally Neck supple and no JVD Lymph Lymphatic: no lymphedema noted Resp normal respiratory effort, normal air movement and clear to auscultation bilaterally Cardio regular rate, regular rhythm, S1 normal heart sound, S2 normal heart sound and no murmurs GI normal to inspection, nondistended, normoactive bowel sounds, soft to palpation,non-tender and non-distended Extremity normal capillary refill and no clubbing, cyanosis or edema General Extremity: no tenderness to palpation of joints or extremities Skin General Skin Exam: no breakdown Neuro no focal motor deficits and no sensory deficits noted Motor Exam: general weakness Psych thought process normal Appearance: appropriate Assessment & Plan Assessment/Plan (1) Weakness: (2) Acute hypokalemia: PLAN: Plan #Debility and weakness due to acute hypokalemia with contraction alkalosis * Potassium was 2.5 and repeat was 2.6. Replace potassium aggressively. * Metolazone and Lasix on hold. She did receive a dose of acetazolamide on account of the contraction alkalosis. * Hydrate with IV fluids and trend potassium levels. * PT OT on board. For precautions. #Acute encephalopathy likely due to metabolic derangement: Resolved. Patient now at her baseline. #Chronic respiratory failure: * On 4 L of oxygen chronically at home. * She also has chronically elevated pCO2 * Breathing treatments bronchodilators. Titrate oxygen to maintain saturation above 90%. #WINIFRED: On BiPAP nightly #History of COPD: Not in exacerbation. Breathing treatments bronchodilators. #History of atrial fibrillation: On metoprolol and Eliquis. Also on digoxin. #Benign essential hypertension: On metoprolol #Nonobstructive CAD: Stable. #Chronic heart failure preserved ejection fraction: * Not in exacerbation. On Jardiance. Lasix and metolazone on hold due to hypokalemia. * Lasix echo showed EF of 65%. * #History of migraines: Stable #DVT prophylaxis: On Eliquis CODE STATUS: Full code Total time spent on evaluation and management of patient, reviewing chart and specialist notes, discussing plan with patient, discussion with nursing and ancillary staff as well as documentation: 35 mins Charges/Coding Visit Charges Inpatient E&M: 95529 PROLNG IP/OBS E/M EA 15 MIN 05/06/25 4751 <Electronically signed by Cindi Lizarraga MD> Cindi Lizarraga MD Cosigner Signature (if applicable): CC: ~ Signed [facility] Work Phone: 1([phone]) 126-524006-11-2025 Discharge summary Author Que Greene [facility] Note Date/Time May 06, 2025 8:58 am [facility] Medical Records Department [address] [place] [address] Emergency Department Summary 05/05/25 MR#: [id number] Acct: [id number] Name: PIPER CLARK Rep #:[id number] : 1955 69 From: Que Lopez [...] as A-fib and lower extremity edema (HFpEF) [facility] Medical History Morbid obesity with [...] 77.7 H Lymph % (Auto) 9.7 L [place] % (Auto) 11.1 H Eos % (Auto) [...] confusion, Alkalosis Disposition Disposition: Acute Care Hospital [facility] What to do if you have Problems For any increased pain, shortness of breath, bleeding, nausea or vomiting, chestpain, or any unexpected problems, contact your Primary Care Provider. Call [facility] ([phone]) or report to the closest Emergency Room. Call 911 if necessary. 05/06/25 0858 <Electronically signed by Que Gerene DO> Cosigner Signature (if applicable): CC: Dr. Genia Chappell MD ~ Signed [facility] Work Phone: 1(290) 432-782306-11-2025 History and physical note Author Vannesa Camejo [facility] Note Date/Time May 06, 2025 3:22 am [facility] Medical Records Department [address] [place] [address] H&P Exam - Hospitalist 05/06/25 0228 MR#: [id number] Acct: [id number] Name: PIPER CLARK Rep #:[id number] : 1955 69 From: Vannesa Camejo DO PCP: Dr. Genia Chappell MD Status:REG ER Location: ED HPI - General General Date of Admission: 05/06/25 Date of Service: 05/06/25 Chief Complaint: Weakness/mild confusion HPI Narrative PIPER CLARK, is a 69 F who presented to the emergency department [facility] on 05/05/2025 with a chief complaint of generalized weakness with muscle twitching and some intermittent confusion. Patient has chronic heart failure with preserved ejection fraction and saw her conservation engineer on Sunday. He will diltiazem was discontinued [...] anticipate her requiring a 2 midnight hospitalization. [facility] Medical History Morbid obesity with BMI of [...] 77.7 H, Lymph % (Auto) 9.7 L, [place] % (Auto) 11.1 H, Eos % (Auto) [...] To/Read Back Yes Blood Gas Notified [facility] Blood Gas Notified Time 01:34:56 Assessment & [...] to admission Charges/Coding Visit Charges Inpatient E&M: 94380 Init Hosp L2 05/06/25 0322 <Electronically signed by Vannesa Camejo DO> Cosigner Signature (if applicable): CC: Dr. Genia Chappell MD; Dr. Vannesa Camejo DO~ Signed [facility] Work Phone: 1(692) 916-438806-11-2025 History and physical note Author Vannesa Camejo [facility] Note Date/Time May 06, 2025 3:22 am [facility] Medical Records Department [address] [place] [address] H&P Exam - Hospitalist 05/06/25227 MR#: [id number] Acct: [id number] Name: PIPER CLARK Rep #:[id number] : 1955 69 From: Vannesa Camejo DO PCP: Dr. Genia Chappell MD Status:REG ER Location: ED HPI - General General Date of Admission: 05/06/25 Date of Service: 05/06/25 Chief Complaint: Weakness/mild confusion HPI Narrative PIPER CLARK, is a 69 F who presented to the emergency department [facility] on 05/05/2025 with a chief complaint of generalized weakness with muscle twitching and some intermittent confusion. Patient has chronic heart failure with preserved ejection fraction and saw her conservation engineer on Sunday. He will diltiazem was discontinued [...] anticipate her requiring a 2 midnight hospitalization. [facility] Medical History Morbid obesity with BMI of [...] 77.7 H, Lymph % (Auto) 9.7 L, [place] % (Auto) 11.1 H, Eos % (Auto) [...] To/Read Back Yes Blood Gas Notified [facility] Blood Gas Notified Time 01:34:56 Assessment & [...] to admission Charges/Coding Visit Charges Inpatient E&M: 42732 Init Hosp L2 05/06/25 0322 <Electronically signed by Vannesa Camejo DO> Cosigner Signature (if applicable): CC: Dr. Genia Chappell MD; Dr. Vannesa Camejo DO~ Signed [facility] Work Phone: 1([phone]) 107-975206-11-2025 Evaluation note* Diagnosis Onset Date Resolution Status Admit Date Acute confusion resolved April 2:36am Acute hypokalemia resolved May 062024 2:36am Weakness resolved May 06 2:36am Alkalosis inactive May 06 2:36am Chronic respiratory failure with hypoxia and hypercapnia inactive Apr 2:36am COPD (chronic obstructive pulmonary disease) inactive May 06 2:36am Metabolic alkalosis inactive May 06, 2025 2:36am Respiratory acidosis inactive May 06, 2025 2:36am Fatigue acute May 14 9:56am (HFpEF) heart failure with preserved ejection fraction chronic May 14, 2025 9:56am Atrial fibrillation chronic May 14, 2025 9:56am Chronic airway obstruction chronic May 14, 2025 9:56am Coronary artery disease chronic J 2024 9:56am Hypertension chronic May 14, 2 025 9:56am Morbid obesity chronic May 14, 2025 9:56am Sleep apnea chronic May 14 9:56am Acute confusion resolved April 9:56am Fatigue acute June 01, 2025 11:17am (HFpEF) heart failure with preserved ejection fraction chronic June 01, 2025 11:17am Atrial fibrillation chronic June 01, 2025 11:17am Chronic airway obstruction chronic June 01, 2025 11:17am Coronary artery disease chronic J ally 2024 11:17am Hypertension chronic June 01 11:17am Morbid obesity chronic June 01, 2025 11:17am Sleep apnea chronic June 01 11:17am Acute confusion resolved June 01, 2025 11:17am Chronic anticoagulation acute A ugust 2024 10:30am Edema acute July 01 10:30am WINIFRED (obstructive sleep apnea) acute July 01, 2025 10:30am (HFpEF) heart failure with preserved ejection fraction chronic Augu st 2024 10:30am Atrial fibrillation chronic Augus t 2024 10:30am Coronary artery disease chronic A ugust 2024 10:30am Hypertension chronic July 01, 2025 10:30am Nocturia acute July 2:25pm Overactive bladder acute Sept gerardo 2024 2:25pm Urge incontinence acute Sept er 2024 2:25pm Vaginal atrophy acute August 14, 2025 2:25pm Vaginal itching acute August 14, 2025 2:25pm Vulvar atrophy acute August 14, 2025 2:25pm Umbilical hernia acute September 01, 2025 2:03pm [facility] Work Phone: 1(100) 134-810806-05-2025 Evaluation note* Diagnosis Onset Date Resolution Status Admit Date (HFpEF) heart failure with preserved ejection fraction chronic April 30, 2025 2:23pm Atrial fibrillation chronic April 30, 2025 2:23pm Chronic airway obstruction chronic April 30, 2025 2:23pm Coronary artery disease chronic J une 2024 2:23pm Hypertension chronic April 30 2:23pm Morbid obesity chronic April 30, 2025 2:23pm Sleep apnea chronic April 30 2:23pm Acute confusion resolved April 2:36am Acute hypokalemia resolved May 062024 2:36am Weakness resolved May 06 2:36am Alkalosis inactive May 06 2:36am Chronic respiratory failure with hypoxia and hypercapnia inactive April 2:36am COPD (chronic obstructive pulmonary disease) inactive May 06 2:36am Metabolic alkalosis inactive May 06, 2025 2:36am Respiratory acidosis inactive May 06, 2025 2:36am Fatigue acute May 14 9:56am (HFpEF) heart failure with preserved ejection fraction chronic May 14, 2025 9:56am Atrial fibrillation chronic May 14, 2025 9:56am Chronic airway obstruction chronic May 14, 2025 9:56am Coronary artery disease chronic J 2024 9:56am Hypertension chronic May 14 9:56am Morbid obesity chronic May 14, 2025 9:56am Sleep apnea chronic May 14 9:56am Acute confusion resolved April 9:56am Fatigue acute June 01, 2025 11:17am (HFpEF) heart failure with preserved ejection fraction chronic June 01, 2025 11:17am Atrial fibrillation chronic June 01, 2025 11:17am Chronic airway obstruction chronic June 01, 2025 11:17am Coronary artery disease chronic J 2024 11:17am Hypertension chronic June 01 11:17am Morbid obesity chronic June 01, 2025 11:17am Sleep apnea chronic June 01 11:17am Acute confusion resolved June 01, 2025 11:17am Chronic anticoagulation acute A ugust 2024 10:30am Edema acute July 01 10:30am WINIFRED (obstructive sleep apnea) acute July 01, 2025 10:30am (HFpEF) heart failure with preserved ejection fraction chronic Augu st 2024 10:30am Atrial fibrillation chronic Augus t 2024 10:30am Coronary artery disease chronic A ugust 2024 10:30am Hypertension chronic July 01, 2025 10:30am [facility] Work Phone: 1(879) 580-152106-05-2025 Evaluation note* Diagnosis Onset Date Resolution Status Admit Date (HFpEF) heart failure with preserved ejection fraction chronic April 30, 2025 2:23pm Atrial fibrillation chronic April 30, 2025 2:23pm Chronic airway obstruction chronic April 30, 2025 2:23pm Coronary artery disease chronic J une 2024 2:23pm Hypertension chronic April 30 2:23pm Morbid obesity chronic April 30, 2025 2:23pm Sleep apnea chronic April 30 2:23pm Acute confusion resolved April 2:36am Acute hypokalemia resolved May 062024 2:36am Weakness resolved May 06 2:36am Alkalosis inactive May 06 2:36am Chronic respiratory failure with hypoxia and hypercapnia inactive Apr 2:36am COPD (chronic obstructive pulmonary disease) inactive May 06 2:36am Metabolic alkalosis inactive May 06, 2025 2:36am Respiratory acidosis inactive May 06, 2025 2:36am Fatigue acute May 14 9:56am (HFpEF) heart failure with preserved ejection fraction chronic May 14, 2025 9:56am Atrial fibrillation chronic May 14, 2025 9:56am Chronic airway obstruction chronic May 14, 2025 9:56am Coronary artery disease chronic J une 2024 9:56am Hypertension chronic May 14, 9:56am Morbid obesity chronic May 14, 2025 9:56am Sleep apnea chronic May 14 9:56am Acute confusion resolved April 9:56am Fatigue acute June 01, 2025 11:17am (HFpEF) heart failure with preserved ejection fraction chronic June 01, 2025 11:17am Atrial fibrillation chronic June 01, 2025 11:17am Chronic airway obstruction chronic June 01, 2025 11:17am Coronary artery disease chronic J ally 2024 11:17am Hypertension chronic June 01 11:17am Morbid obesity chronic June 01, 2025 11:17am Sleep apnea chronic June 01 11:17am Acute confusion resolved June 01, 2025 11:17am Chronic anticoagulation acute A ugust 2024 10:30am Edema acute July 01 10:30am WINIFRED (obstructive sleep apnea) acute July 01, 2025 10:30am (HFpEF) heart failure with preserved ejection fraction chronic Augu st 2024 10:30am Atrial fibrillation chronic Augus t 2024 10:30am Coronary artery disease chronic A ugust 2024 10:30am Hypertension chronic July 01, 2025 10:30am Nocturia acute July 2:25pm Overactive bladder acute Septem gerardo 2024 2:25pm Urge incontinence acute Septemb er 2024 2:25pm Vaginal atrophy acute August 14, 2025 2:25pm Vaginal itching acute August 14, 2025 2:25pm Vulvar atrophy acute August 14, 2025 2:25pm [facility] Work Phone: 1(707) 599-247106-05-2025 Progress note Author Chandni Courtney [facility] Note Date/Time April 30, 2025 3:06p m [facility] [address] [place] [address]. [address] [place] [address] OFFICE VISIT Date of Service: 04/30/25 MR#: [id number] Acct: [id number] Name: PIPER CLARK Rep #: [id number] : 1955 Provider: Dr. Heraclio Courtney MD Age/Sex: 69/F Location: [facility] Status: Signed HPI HPI History of Present [...] NIBP Intake Visit Reasons: 6 M FU Clothing Examiner Required: No Accompanied by: Is patient in [...] year?: Yes (left shoulder fracture, tripping over [id number]) [facility] Medical History (Updated 04/30/25 @ 15:05 by [...] Artery/Lesion type: unspecified vessel or lesion type [place] vs. transplanted heart: [place] heart Associated angina: without angina Qualified Code(s): I25.10 - Atherosclerotic heart disease of [place] coronary artery without angina pectoris Plan: Mild [...] type: unspecified chronic Coronary artery disease involving [place] heart without angina pectoris, unspecified vessel or lesion type I25.10 Coronary Disease-Associated Artery/Lesion type: unspecified vessel or lesion type [place] vs. transplanted heart: [place] heart Associated angina: without angina (HFpEF) heart failure with preserved ejection fraction I50.30 Hypertension I10 Chronic airway obstruction J44.9 Sleep apnea G47.30 Morbid obesity E66.01 Coding Level of Care Code Off vis,est,level 4 Diagnoses Chronic atrial fibrillation I48.20 Atrial fibrillation type: unspecified chronic Coronary artery disease involving [place] heart without angina pectoris, unspecified vessel or lesion type I25.10 Coronary Disease-Associated Artery/Lesion type: unspecified vessel or lesion type [place] vs. transplanted heart: [place] heart Associated angina: without angina (HFpEF) heart failure with preserved ejection fraction I50.30 Hypertension I10 Chronic airway obstruction J44.9 Sleep apnea G47.30 Morbid obesity E66.01 Clinical Quality Measures Falls Risk Screening/Assistive Devices Have you fallen in the past year?: Yes (left shoulder fracture, tripping over [id number]) Cardiac Ejection fraction %: 65 04/30/25 1506 <Electronically signed by Chandni Courtney MD> Date _ Chandni Courtney MD Cosigner Signature: Date (if applicable) CC: Dr. Genia Chappell MD ~ [facility] Work Phone: 1(995) 367-746805-16-2025 [facility]05-16-2025 Discharge summary Author Geoff Galvan [facility] Note Date/Time April 10, 2025 2:54p [facility] Medical Records Department [address] [place] [address] Instructions for Home/Discharge Instructions 04/10/25 4721 MR#: [id number] Acct: [id number] Name: PIPER CLARK Rep #:[id number] 5 : 1955 69 From: Geoff mora [...] MD; Dr. Mitchell Brian MD ~ Signed [facility] Work Phone: 1([phone]) 648-517405-16-2025 Discharge summary [facility] Medical Records Department [address] [place] [address] Instructions for Home/Discharge Instructions 04/10/25 1425 MR#: [id number] Acct: [id number] Name: PIPER CLARK Rep #:[id number] 5 : 1955 69 From: Geoff mora [...] can be placed): Home, Self Care 04/10/25 1454Nicanil Galvan MD CC: Dr. Genia Chappell MD; Dr. Orlando Bolden DO; Dr. Ken Vieyra MD; Dr. Mitchell Brian MD ~ Signed [facility]05-15-2025 Progress note Author Ken Vieyra [facility] Note Date/Time April 09, 2025 2:54p m [facility] Medical Records Department [address] [place] [address] Progress Note - Hospitalist 04/09/25 1445 MR#: [id number] Acct: [id number] Name: PIPER CLARK Rep #:[id number] 0 : 1955 69 From: Ken Hughes PCP: Dr. Genia Chappell MD Status:ADM IN Location: [place] [address] Reason for Visit Reason for Visit: Diagnoses [...] Body mass index [BMI] 45.0-49.9, adult (04/05/25) USP (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 anticoagulants (04/05/25) Objective Data [...] 94.1 H, Lymph % (Auto) 1.8 L, [place] % (Auto) 3.3, Eos % (Auto) 0.0, [...] every 8 hourly 04/09: Discussed with the field return repairer Dr. Mitcehll Brian. Currently on BiPAP 12/11 at night. [...] 21:20 IMPRESSION: No Acute Findings. Reading Location: [facility] Chest/Abdomen/Pelvis CT 04/05/25 23:58 IMPRESSION: Pericardial effusion is present measuring around 1.4 cm axial 88, clinically correlate. Small posterior layering left pleural effusion. Bilateral atelectasis without focal consolidation identified. No evidence of acute intra-abdominal process on noncontrast imaging. Diverticulosis without diverticulitis. Reading Location: [id number] Microbiology Past 72 Hours 04/05/25 22:25 Blood [...] 94.1 H, Lymph % (Auto) 1.8 L, [place] % (Auto) 3.3, Eos % (Auto) 0.0, [...] 277 H Charges/Coding Visit Charges Inpatient E&M: 16241 Subs Hosp L2 04/09/25 1454 <Electronically signed by Ken Vieyra MD> Cosigner Signature (if applicable): CC: ~ Signed [facility] Work Phone: 1(158) 899-972405-15-2025 Progress note [facility] System Medical Records Department [address] [place] [address] Progress Note - Hospitalist 04/09/25 1445 MR#: [id number] Acct: [id number] Name: PIPER CLARK Rep #:[id number] 0 : 1955 69 From: Ken Hughes PCP: Dr. Genia Chappell MD Status:ADM IN Location: [place] [address] Reason for Visit Reason for Visit: Diagnoses [...] Body mass index [BMI] 45.0-49.9, adult (04/05/25) USP (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 anticoagulants (04/05/25) Objective Data [...] 94.1 H, Lymph % (Auto) 1.8 L, [place] % (Auto) 3.3, Eos % (Auto) 0.0, [...] every 8 hourly 04/09: Discussed with the field return repairer Dr. Mitchell Brian. Currently on BiPAP / [...] 21:20 IMPRESSION: No Acute Findings. Reading Location: [facility] Chest/Abdomen/Pelvis CT 04/05/25 23:58 IMPRESSION: Pericardial effusion is present measuring around 1.4 cm axial 88, clinically correlate. Small posterior layering left pleural effusion. Bilateral atelectasis without focal consolidation identified. No evidence of acute intra-abdominal process on noncontrast imaging. Diverticulosis without diverticulitis. Reading Location: [id number] Microbiology Past 72 Hours 04/05/25 22:25 Blood [...] 94.1 H, Lymph % (Auto) 1.8 L, [place] % (Auto) 3.3, Eos % (Auto) 0.0, [...] 277 H Charges/Coding Visit Charges Inpatient E&M: 10135 Subs Hosp L2 04/09/25 1454 Cosigner Signature (if applicable): CC: ~ Signed [facility]05-15-2025 Progress note Author Mitchell Brian [facility] Note Date/Time April 09, 2025 8:18a m [facility] Medical Records Department [address] [place] [address] Progress Note 04/09/2508 MR#: [id number] Acct: [id number] Name: PIPER CLARK Rep #:[id number] 1 : 1955 69 From: Mitchell norton MD PCP: Dr. Genia Chappell MD Status:ADM IN Location: [place] [address] Subjective Subjective Up out of bed yesterday. [...] (Auto) 94.1 H, Lymph % (Auto) 1.8L, [place] % (Auto) 3.3, Eos % (Auto) 0.0, [...] high flow oxygen at home Currently using 18/ Tolerates the pressure No aerophagia Slept well [...] Dr. Crowe this morning possible d/c tomorrow 04/09/25817 <Electronically signed by Mitchell Brian MD> Mitchell Brian MD Cosigner Signature (if applicable): CC: ~ Signed [facility] Work Phone: 1(696) 644-797205-15-2025 Progress note [facility] Medical Records Department [facility] [place] [address] Progress Note 04/09/25807 MR#: [id number] Acct: [id number] Name: PIPER CLARK Rep #:[id number] 1 : 1955 69 From: Mitchell norton MD PCP: Dr. Genia Chappell MD Status:ADM IN Location: [place] [address] Subjective Subjective Up out of bed yesterday. [...] (Auto) 94.1 H, Lymph % (Auto) 1.8L, [place] % (Auto) 3.3, Eos % (Auto) 0.0, [...] Cosigner Signature (if applicable): CC: ~ Signed [facility]05-14-2025 Progress note Author [facility] Jarrell [facility] Note Date/Time April 08, 2025 2:03p [facility] Medical Records Department [address] [place] [address] Progress Note - Hospitalist 04/08/2543 MR#: [id number] Acct: [id number] Name: PIPER CLARK Johan Rep #:[id number] 3 : 1955 69 From: Ken Hughes PCP: Dr. 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 Reading Location: [facility] Chest/Abdomen/Pelvis CT 04/05/25 23:58 IMPRESSION: Pericardial effusion is present measuring around 1.4 cm axial 88, clinically correlate. Small posterior layering left pleural effusion. Bilateral atelectasis without focal consolidation identified. No evidence of acute intra-abdominal process on noncontrast imaging. Diverticulosis without diverticulitis. Reading Location: [id number] Charges/Coding Visit Charges Inpatient E&M: 13948 Subs Hosp L2 04/08/25 1332 <Electronically signed [...] Cosigner Signature (if applicable): cc: ~* Signed [facility] Work Phone: 1(813) 789-147805-14-2025 Progress note [facility] Medical Records Department [facility] [place] [address] Progress Note - Hospitalist 04/08/25 4038 MR#: [id number] Acct: [id number] Name: PIPER CLARK Rep #:[id number] 3 : 1955 69 From: Ken Hughes PCP: Dr. Genia Chappell MD Status:ADM IN Location: [place] [address] Reason for Visit Reason for Visit: Diagnoses [...] Body mass index [BMI] 45.0-49.9, adult (04/05/25) USP (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 anticoagulants (04/05/25) Objective Data [...] 94.1 H, Lymph % (Auto) 1.4 L, [place] % (Auto) 3.3, Eos % (Auto) 0.0, [...] 21:20 IMPRESSION: No Acute Findings. Reading Location: [facility] Chest/Abdomen/Pelvis CT 04/05/25 23:58 IMPRESSION: Pericardial effusion is present measuring around 1.4 cm axial 88, clinically correlate. Small posterior layering left pleural effusion. Bilateral atelectasis without focal consolidation identified. No evidence of acute intra-abdominal process on noncontrast imaging. Diverticulosis without diverticulitis. Reading Location: [id number] Charges/Coding Visit Charges Inpatient E&M: 88472 Subs Hosp L2 04/08/25 1332 Cosigner Signature [...] Cosigner Signature (if applicable): cc: ~* Signed [facility]05-13-2025 Progress note Author Ken Vieyra [facility] Note Date/Time April 07, 2025 3:01p [facility] Medical Records Department [address] [place] [address] Progress Note - Hospitalist 04/06/25 0842 MR#: [id number] Acct: [id number] Name: PIPER CLARK Rep #:[id number] : 1955 69 From: Ken Hughes PCP: Dr. Genia Chappell MD Status:ADM IN Location: [place] [address] Reason for Visit Reason for Visit: Diagnoses [...] Body mass index [BMI] 45.0-49.9, adult (04/05/25) USP (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 anticoagulants (04/05/25) Objective Data [...] 92.3 H, Lymph % (Auto) 2.2 L, [place] % (Auto) 4.1, Eos % (Auto) 0.0, [...] 96.1 H, Lymph % (Auto) 1.0 L, [place] % (Auto) 1.4, Eos % (Auto) 0.0, [...] 21:20 IMPRESSION: No Acute Findings. Reading Location: [facility] Chest/Abdomen/Pelvis CT 04/05/25 23:58 IMPRESSION: Pericardial effusion is present measuring around 1.4 cm axial 88, clinically correlate. Small posterior layering left pleural effusion. Bilateral atelectasis without focal consolidation identified. No evidence of acute intra-abdominal process on noncontrast imaging. Diverticulosis without diverticulitis. Reading Location: [facility] Rhythm Strip Rhythm Strip: A-fib Rate: [...] 21:20 IMPRESSION: No Acute Findings. Reading Location: [facility] Chest/Abdomen/Pelvis CT 04/05/25 23:58 IMPRESSION: Pericardial effusion is present measuring around 1.4 cm axial 88, clinically correlate. Small posterior layering left pleural effusion. Bilateral atelectasis without focal consolidation identified. No evidence of acute intra-abdominal process on noncontrast imaging. Diverticulosis without diverticulitis. Reading Location: [id number] Charges/Coding Visit Charges Inpatient E&M: 48463 Subs Hosp L2 04/06/25 0838 <Electronically signed by Ken Vieyra MD> Cosigner [...] Cosigner Signature (if applicable): cc: ~* Signed [facility] Work Phone: 1(507) 163-954705-13-2025 Progress note Author Ken Vieyra [facility] Note Date/Time April 07, 2025 3:00p m [facility] Medical Records Department [address] [place] [address] Progress Note - Hospitalist 04/07/25 1453 MR#: [id number] Acct: [id number] Name: PIPER CLARK Rep #:[id number] : 1955 69 From: Ken Hughes PCP: Dr. Genia Chappell MD Status:ADM IN Location: [place] [address] Reason for Visit Reason for Visit: Diagnoses [...] incentive spirometry and Pep. 03/28: Discussed with field return repairer Dr. Dunlap at today. Continue high-dose of [...] 21:20 IMPRESSION: No Acute Findings. Reading Location: [facility] Chest/Abdomen/Pelvis CT 04/05/25 23:58 IMPRESSION: Pericardial effusion is present measuring around 1.4 cm axial 88, clinically correlate. Small posterior layering left pleural effusion. Bilateral atelectasis without focal consolidation identified. No evidence of acute intra-abdominal process on noncontrast imaging. Diverticulosis without diverticulitis. Reading Location: [id number] Charges/Coding Visit Charges Inpatient E&M: 67484 Subs Hosp L3 04/07/25 1500 <Electronically signed by Ken Vieyra MD> Cosigner Signature (if applicable): CC: ~ Signed [facility] Work Phone: 1(305) 199-714705-13-2025 Progress note [facility] Medical Records Department [address] [place] [address] Progress Note - Hospitalist 04/06/25 0842 MR#: [id number] Acct: [id number] Name: PIPER CLARK Rep #:[id number] 8 : 1955 69 From: Ken Hughes PCP: Dr. Genia Chappell MD Status:ADM IN Location: [facility] [id number] Reason for Visit Reason for Visit: [...] Body mass index [BMI] 45.0-49.9, adult (04/05/25) USP (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 anticoagulants (04/05/25) Objective Data [...] 92.3 H, Lymph % (Auto) 2.2 L, [place] % (Auto) 4.1, Eos % (Auto) 0.0, [...] 96.1 H, Lymph % (Auto) 1.0 L, [place] % (Auto) 1.4, Eos % (Auto) 0.0, [...] 21:20 IMPRESSION: No Acute Findings. Reading Location: [facility] Chest/Abdomen/Pelvis CT 04/05/25 23:58 IMPRESSION: Pericardial effusion is present measuring around 1.4 cm axial 88, clinically correlate. Small posterior layering left pleural effusion. Bilateral atelectasis without focal consolidation identified. No evidence of acute intra-abdominal process on noncontrast imaging. Diverticulosis without diverticulitis. Reading Location: [facility] Rhythm Strip Rhythm Strip: A-fib Rate: [...] 21:20 IMPRESSION: No Acute Findings. Reading Location: [facility] Chest/Abdomen/Pelvis CT 04/05/25 23:58 IMPRESSION: Pericardial effusion is present measuring around 1.4 cm axial 88, clinically correlate. Small posterior layering left pleural effusion. Bilateral atelectasis without focal consolidation identified. No evidence of acute intra-abdominal process on noncontrast imaging. Diverticulosis without diverticulitis. Reading Location: [facility] Charges/Coding Visit Charges Inpatient E&M: 65781 [facility] Hosp L2 04/06/25 0852 Cosigner Signature (if [...] Cosigner Signature (if applicable): cc: ~* Signed [facility]05-13-2025 Progress note [facility] Medical Records Department [address] [place] [address] Progress Note - Hospitalist 04/07/25 1453 MR#: [id number] Acct: [id number] Name: PIPER CLARK Rep #:[id number] 7 : 1955 69 From: Ken Hughes PCP: Dr. Genia Chappell MD Status:ADM IN Location: [place] [address]- 1 Reason for Visit Reason for Visit: [...] incentive spirometry and Pep. 03/28: Discussed with field return repairer Dr. Dunlap at today. Continue high-dose of [...] 21:20 IMPRESSION: No Acute Findings. Reading Location: [facility] Chest/Abdomen/Pelvis CT 04/05/25 23:58 IMPRESSION: Pericardial effusion is present measuring around 1.4 cm axial 88, clinically correlate. Small posterior layering left pleural effusion. Bilateral atelectasis without focal consolidation identified. No evidence of acute intra-abdominal process on noncontrast imaging. Diverticulosis without diverticulitis. Reading Location: [id number] Charges/Coding Visit Charges Inpatient E&M: 85110 Subs Hosp L3 04/07/25 1500 Cosigner Signature (if applicable): CC: ~ Signed [facility]05-13-2025 Progress note Author Mitchell Brian [facility] Note Date/Time April 07, 2025 8:14a m [facility] Medical Records Department [address] [place] [address] Progress Note 04/07/25 0807 MR#: [id number] Acct: [id number] Name: PIPER CLARK Rep #:[id number] : 1955 69 From: Mitchell norton MD PCP: Dr. Genia Chappell MD Status:ADM IN Location: [place] [address] Subjective Subjective The patient slept well, she [...] with Dr. Crowe this morning 04/07/25 0814 <Electronically signed by Mitchell Brian MD> Mitchell Brian MD Cosigner Signature (if applicable): CC: ~ Signed [facility] Work Phone: 1(790) 835-573405-13-2025 Progress note [facility] System Medical Records Department [address] [place] [address] Progress Note 04/07/25 0807 MR#: [id number] Acct: [id number] Name: PIPER CLARK Rep #:[id number] 7 : 1955 69 From: Mitchell norton MD PCP: Dr. Genia Chappell MD Status:ADM IN Location: [place] [address] Subjective Subjective The patient slept well, she [...] Cosigner Signature (if applicable): CC: ~ Signed [facility]05-12-2025 History and physical note Author Orlando Maldonado [facility] Note Date/Time April 06, 2025 6:10a m [facility] System Medical Records Department [address] [place] [address] H&P Exam - Hospitalist 04/05/25 2258 MR#: [id number] Acct: [id number] Name: PIPER CLARK Rep #:[id number] 0 : 1955 69 From: Orlando Zavaleta DO PCP: Dr. Genia Chappell MD Status:ADM IN Location: [place] [address] HPI - General General Date of Admission: [...] troponin T of 19 bg/L complicated by Gunwp-wl-Ktehmbh Respiratory Insufficiency with LVEF ~65% and RVSP of ~50 mmHg with inability to evaluate for diastolic dysfunction who re-presents to [facility] complaining of shortness of breath, wheezing and [...] is expected to extend beyond 2 midnights. [facility] Medical History (Updated 04/06/25 @ 05:13 by [...] 92.3 H, Lymph % (Auto) 2.2 L, [place] % (Auto) 4.1, Eos % (Auto) 0.0, [...] (MDRD) Non-Af 82, BUN/Creatinine Ratio 29.9 H, Jiykwvx829 H, Lactic Acid 2.5 H*, Calcium 9.2, Troponin T High Sens 10 D, NT pro BNP II 1349 H Rhythm Strip Rhythm Strip: A-fib Rate: 97 Ectopy: None Imaging Radiology Impression Chest X-Ray 04/05/25 21:20 IMPRESSION: No Acute Findings. Reading Location: [facility] Imaging Services [address] [place] [address] CT Chest, Abd, Pelvis WO Cont MR#: [id number] Acct: [id number] Name: PIPER CLARK Rep #: [id number] : 1955 F 69 From: Mitchell Collier MD PCP: Dr. Genia Chappell MD Status: ADM IN Study: CT Chest, Abd, Pelvis WO Cont Date of Exam: 04/05/25 Exam# [id number] Ordering Dr: Orlando Bolden DO PROCEDURE: CT [...] noncontrast imaging. Diverticulosis without diverticulitis. Reading Location: [facility] CC: Dr. Genia Chappell MD; Dr. 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 4. Shxyp-ku-Puxulcg Respiratory Failure requiring Airvo attributable to #1 [...] 75 minutes. Charges/Coding Visit Charges Inpatient E&M: 84909 Init Hosp L3 04/06/25 0610 <Electronically signed by Orlando Bolden DO> Cosigner Signature (if applicable): CC: Dr. Genia Chappell MD; Dr. Orlando Bolden DO~ Signed [facility] Work Phone: 1(523) 970-550105-12-2025 History and physical note [facility] Medical Records Department [address] [place] [address] H&P Exam - Hospitalist 04/05/25 2218 MR#: [id number] Acct: [id number] Name: PIPER CLARK Rep #:[id number] 0 : 1955 69 From: Orlando Zavaleta DO PCP: Dr. eGnia Chappell MD Status:ADM IN Location: [place] [address] HPI - General General Date of Admission: [...] troponin T of 19 bg/L complicated by Pkxnz-jf-Wldjkkp Respiratory Insufficiency with LVEF ~65% and RVSP of ~50 mmHg with inability to evaluate for diastolic dysfunction who re-presents to [facility] complaining of shortness of breath, wheezing and [...] that is expected to extend beyond 2midnights. [facility] Medical History (Updated 04/06/25 @ 05:13 by [...] 92.3 H, Lymph % (Auto) 2.2 L, [place] % (Auto) 4.1, Eos % (Auto) 0.0, [...] (MDRD) Non-Af 82, BUN/Creatinine Ratio 29.9 H, Tjcbtck645 H, Lactic Acid 2.5 H*, Calcium 9.2, Troponin T High Sens 10 D, NT pro BNP II 1349 H Rhythm Strip Rhythm Strip: A-fib Rate: 97 Ectopy: None Imaging Radiology Impression Chest X-Ray 04/05/25 21:20 IMPRESSION: No Acute Findings. Reading Location: [facility] Imaging Services [address] [place] [address] Chest, Abd, Pelvis WO Cont MR#: [id number] Acct: [id number] Name: PIPER CLARK Rep #: [id number] : 1955 F 69 From: Mitchell Collier MD PCP: Dr. Genia Chappell MD Status: ADM IN Study: CT Chest, Abd, Pelvis WO Cont Date of Exam: 04/05/25 Exam# [id number] Ordering Dr: Orlando Bolden DO PROCEDURE: CT [...] noncontrast imaging. Diverticulosis without diverticulitis. Reading Location: [id number] CC: Dr. Genia Chappell MD; Dr. 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 4. Ualoz-lf-Qseoyac Respiratory Failure requiring Airvo attributable to #1 [...] 75 minutes. Charges/Coding Visit Charges Inpatient E&M: 15607 Init Hosp L3 04/06/25 0610 Cosigner Signature (if applicable): CC: Dr. Genia Chappell MD; Dr. Orlando Bolden, ~ Signed [facility]05-12-2025 Discharge summary Author Andi Ortiz [facility] Note Date/Time April 05, 2025 11:02 pm [facility] Medical Records Department [address] [place] [address] Emergency Department Summary 04/05/25 MR#: [id number] Acct: [id number] Name: PIPER CLARK Rep #:[id number] 0 : 1955 69 From: Andi Ortiz [...] is not usually the case for her. [facility] Medical History Chronic anticoagulation Elevated troponin Morbid [...] 92.3 H Lymph % (Auto) 2.2 L [place] % (Auto) 4.1 Eos % (Auto) 0.0 [...] 21:20 IMPRESSION: No Acute Findings. Reading Location: [facility] Rhythm Strip Rhythm Strip: A-fib Rate: [...] min), Including time spent:, Discussing w/Patient &/or Family/Sas Architect, Discussing w/Consultants, Arranging Admission or Transfer and Performing Direct Patient Care at Bedside Discharge Plan Dx/Rx/DC Orders Clinical Impression: Acute hypoxic respiratory failure, Atrial fibrillation, Bilateral edema of lower extremity, Acute exacerbation of chronic obstructive pulmonary disease (COPD) Disposition Disposition: Acute Care [facility] What to do if you have Problems For any increased pain, shortness of breath, bleeding, nausea or vomiting, chestpain, or any unexpected problems, contact your Primary Care Provider. Call [facility] ([phone]) or report to the closest Emergency Room. Call 911 if necessary. 04/05/252301 <Electronically signed by Andi Ortiz MD> Cosigner Signature (if applicable): CC: Dr. Genia Chappell MD ~ Signed [facility] Work Phone: 1(114) 194-836305-12-2025 Radiology Diagnostic study note [facility] Imaging Services [address] [place] [address] Chest, Abd, Pelvis WO Cont MR#: [id number] Acct: [id number] Name: PIPER CLARK Rep #: [id number] 1 : 1955 F 69 From: Juvenal Collier MD PCP: Dr. Genia Chappell MD Status: ADM IN Study:CT Chest, Abd, Pelvis WO Cont Date of E xam: 04/05/25 Exam# [id number] Ordering Dr: Oralndo Crump DO PROCEDURE: CT CHEST, ABD, PELVIS [...] noncontrast imaging. Diverticulosis without diverticulitis. Reading Location: [id number] CC: Dr. Genia Chappell MD; Dr. Orlando Bolden, DO ~ Picker Machine Operator: Signed [facility]05-11-2025 Discharge summary [facility] Medical Records Department [address] [place] [address] Emergency Department Summary 04/05/25 MR#: [id number] Acct: [id number] Name: PIPER CLARK Rep #:[id number] 0 : 1955 69 From: Andi Ortiz [...] is not usually the case for her. [facility] Medical History Chronic anticoagulation Elevated troponin Morbid [...] 92.3 H Lymph % (Auto) 2.2 L [place] % (Auto) 4.1 Eos % (Auto) 0.0 [...] 21:20 IMPRESSION: No Acute Findings. Reading [facility] Rhythm Strip Rhythm Strip: A-fib Rate: 97 [...] min), Including time spent:, Discussing w/Patient &/or Family/Sas Architect, Discussing w/Consultants, Arranging Admission or Transfer and Performing Direct Patient Care at Bedside Discharge Plan Dx/Rx/DC Orders Clinical Impression: Acute hypoxic respiratory failure, Atrial fibrillation, Bilateral edema of lower extremity, Acute exacerbation of chronic obstructive pulmonary disease (COPD) Disposition Disposition: Acute Care [facility] What to do if you have Problems For any increased pain, shortness of breath, bleeding, nausea or vomiting, chestpain, or any unexpected problems, contact your Primary Care Provider. Call [facility] ([phone]) or report tothe closest Emergency Room. Call 911 if necessary. 04/05/25 2302 Cosigner Signature (if applicable): CC: Dr. Genia Chappell MD ~ Signed [facility]05-11-2025 Radiology Diagnostic study note [facility] Imaging Services [address] [place] [address] Chest 1 View (Portable) MR#: [id number] Acct: [id number] Name: PIPER CLARK Rep #: [id number] 6 : 1955 F 69 From: Amber Cortez MD PCP: Dr. Genia Chappell MD Status: PRE ER Study:Chest 1 View (Portable) Date of Exam: 04/05/25 Exam# [id number] Ordering Dr: Sal Ortiz MD PROCEDURE: CHEST [...] Ortiz MD; Dr. Genia Chappell MD ~ Picker Machine Operator: Signed [facility]05-06-2025 Radiology Diagnostic study note [facility] Imaging Services [address] [place], [place] [address] Chest PA and Lateral MR#: [id number] Acct: [id number] Name: PIPER CLARK Rep #: [id number] 9 : 1955 F 69 From: Henrry Fowler MD PCP: Dr. Genia Chappell MD Status: REG CL I Study:Chest PA and Lateral Date of Exam: 03/30/25 Exam# [id number] Ordering Dr: Ny Chappell MD PROCEDURE: 03/30/2025 [...] Underlying COPD may be present. Reading Location: [id number] CC: Dr. Genia Chappell MD ~ Picker Machine Operator: Signed [facility]04-29-2025 Consult note [facility] Medical Records Department [address] [place] [address] Counseling Note - Pharmacy 03/24/25 1345 MR#: [id number] Acct: [id number] Name: PIPER CLARK Rep #:[id number] 0 : 1955 69 From: Lesly King PCP: Dr. Genia Chappell MD Status:ADM IN Y Location: [facility] [id number] 1 Pharmacy [facility] has performed discharge medication reconciliation [...] tabs 03/24/25 03/24/25 1345 Date _ Lesly King Cosigner Signature (if applicable): Date CC: ~ Signed [facility]04-29-2025 Discharge summary Author Cindi Cherrington Hospital Note Date/Time March 24, 2025 12: 42pm [facility] Medical Records Department [address] [place] [address] Instructions for Home/Discharge Instructions 03/24/25 1241 MR#: [id number] Acct: [id number] Name: BENITOPIPER L Rep #:[id number] 6 : 1955 69 From: Cindi Lizarraga [...] Up: Christy Perea MD [Med Staff - Research Project Manager] - Genia Chappell MD [Primary Care Provider] - 03/25/25 11:30 am (With Nurse Practioner Azael ) Disposition Disposition (needs filled in before D/C Order can be placed): Home Health Service 03/24/25 1242<Electronically signed by Cindi Lizarraga MD>Cindi Lizarraga MD CC: Dr. Genia Chappell MD; Dr. Orlando Bolden DO; Dr. Chai Rider DO ~ Signed [facility] Work Phone: 1(192) 314-180404-29-2025 Discharge summary Author Cindi Lizarraga [facility] Note Date/Time March 24, 2025 2:2 6pm [facility] System Medical Records Department [address] [place] [address] Discharge Summary 03/24/25 1242 MR#: [id number] Acct: [id number] Name: PIPER CLARK Rep #:[id number] 8 : 1955 69 From: Cindi Lizarraga MD PCP: Dr. Genia Chappell MD Status:ADM IN Location: [place] [address] Providers Date of Admission: 03/19/25 Date of [...] (Trelegy Ellipta) 1 inh inhalation DAILY SOB 08/13/23 rimegepant 75 mg disintegrating tablet (Nurtec ODT) [...] 89.5 H, Lymph % (Auto) 3.6 L, [place] % (Auto) 3.8, Eos % (Auto) 2.0, [...] Up: Christy Perea MD [Med Staff - Research Project Manager] - Genia Chappell MD [Primary Care Provider] - 03/25/25 11:30 am (With Nurse Practioner Azael ) Disposition Disposition (needs filled in before D/C Order can be placed): Home Health Service Charges/Coding Visit Charges Inpatient E&M: 48377 Disch Hosp >30min 03/24/25 1426 <Electronically signed by Cindi Lizarraga MD> Cosigner Signature (if applicable): CC: Dr. Genia Chappell MD; Dr. Cindi Lizarraga MD~ Signed [facility] Work Phone: [phone]) [phone] Discharge summary [facility] Medical Records Department [address] [place] [address] Discharge Summary 03/24/25 1242 MR#: [id number] Acct: [id number] Name: PIPER CLARK Rep #:[id number] : 1955 69 From: Cindi Lizarraga MD PCP: Dr. Genia Chappell MD Status:ADM IN Location: [place] [address] Providers Date of Admission: 03/19/25 Date of [...] 89.5 H, Lymph % (Auto) 3.6 L, [place] % (Auto) 3.8, Eos % (Auto) 2.0, [...] Up: Christy Perea MD [Med Staff - Research Project Manager] - Genia Chappell MD [Primary Care Provider] - 03/25/25 11:30 am (With Nurse Practioner Azael ) Disposition Disposition (needs filled in before D/C Order can be placed): Home Health Service Charges/Coding Visit Charges Inpatient E&M: 03656 Disch Hosp >30min 03/24/25 1426 Cosigner Signature (if applicable): CC: Dr. Genia Chappell MD; Dr. Cindi Lizarraga MD~ Signed [facility]04-29-2025 Discharge summary [facility] Medical Records Department [address] [place] [address] Instructions for Home/Discharge Instructions 03/24/25 1241 MR#: [id number] Acct: [id number] Name: PIPER CLARK Rep #:[id number] 6 : 1955 69 From: Cindi Lizarraga [...] Up: Christy Perea MD [Med Staff - Research Project Manager] - Genia Chappell MD [Primary Care Provider] - 03/25/25 11:30 am (With Nurse Practioner Azael ) Disposition Disposition (needs filled in before D/C Order can be placed): Home Health Service 03/24/25 1242Cindi Lizarraga MD CC: Dr. Genia Chappell MD; Dr. Orlando Bolden DO; Dr. Chai Rider DO ~ Signed [facility]04-29-2025 [facility] Progress note Author Cindi Lizarraga [facility] Note Date/Time March 23, 2025 4:4 4pm [facility] Medical Records Department [address] [place] [address] Progress Note 03/23/25 1351 MR#: [id number] Acct: [id number] Name: PIPER CLARK Rep #:[id number] 5 : 1955 69 From: Cindi Lizarraga MD PCP: Dr. Genia Chappell MD Status:ADM IN Location: [place] [address] Subjective Subjective Patient seen and examined. She [...] On Eliquis Charges/Coding Visit Charges Inpatient E&M: 01936 Subs Hosp L2 03/23/25 2301 <Electronically signed by Cindi Lizarraga MD> Cindi Lizarraga MD Cosigner Signature (if applicable): CC: ~ Signed [facility] Work Phone: 1(679) 877-478904-28-2025 Progress note [facility] System Medical Records Department [address] [place] [address] Progress Note 03/23/25 1351 MR#: [id number] Acct: [id number] Name: PIPER CLARK Rep #:[id number] 5 : 1955 69 From: Cindi Lizarraga MD PCP: Dr. Genia Chappell MD Status:ADM IN Location: [place] [address] Subjective Subjective Patient seen and examined. She [...] On Eliquis Charges/Coding Visit Charges Inpatient E&M: 00134 Subs Hosp L2 03/23/25 7540 Cindi Lizarraga MD Cosigner Signature (if applicable): CC: ~ Signed [facility]04-27-2025 Progress note Author Chai Rider [facility] Note Date/Time March 22, 2025 5:4 3pm [facility] Medical Records Department [address] [place] [address] Progress Note - Hospitalist 03/22/25 1740 MR#: [id number] Acct: [id number] Name: PIPER CLARK Rep #:[id number] 9 : 1955 69 From: Chai Rider DO PCP: Dr. Genia Chappell MD Status:ADM IN Location: [place] [address] Reason for Visit Reason for Visit: Diagnoses [...] 35 minutes Charges/Coding Visit Charges Inpatient E&M: 03683 Subs Hosp L2 03/22/251742 <Electronically signed by Chai Rider DO> Cosigner Signature (if applicable): CC: ~ Signed [facility] Work Phone: 1(233) 727-410204-27-2025 Progress note [facility] Medical Records Department [address] [place] [address] Progress Note - Hospitalist 03/22/251739 MR#: [id number] Acct: [id number] Name: PIPER CLARK Rep #:[id number] 9 : 1955 69 From: Chai Rider DO PCP: Dr. Genia Chappell MD Status:ADM IN Location: [place] [address] Reason for Visit Reason for Visit: Diagnoses [...] 35 minutes Charges/Coding Visit Charges Inpatient E&M: 47425 Subs Hosp L2 03/22/25 1743 Cosigner Signature (if applicable): CC: ~ Signed [facility]04-26-2025 Progress note Author [facility]ai [facility] Note Date/Time March 21, 2025 12: 03pm [facility] System Medical Records Department [address] [place] [address] Progress Note - Hospitalist 03/21/25 1200 MR#: [id number] Acct: [id number] Name: PIPER CLARK Rep #:[id number] 8 : 1955 69 From: Chai Rider DO PCP: Dr. Genia Chappell MD Status:ADM IN Location: [place] [address] Reason for Visit Reason for Visit: Diagnoses [...] 35 minutes Charges/Coding Visit Charges Inpatient E&M: 87923 Subs Hosp L2 03/21/25 1203 <Electronically signed by Chai Rider DO> Cosigner Signature (if applicable): CC: ~ Signed [facility] Work Phone: 1(982) 529-460604-26-2025 Progress note [facility] Medical Records Department [address] [place] [address] Progress Note - Hospitalist 03/21/25 1200 MR#: [id number] Acct: [id number] Name: PIPER CLARK Rep #:[id number] 8 : 1955 69 From: Chai Rider DO PCP: Dr. Genia Chappell MD Status:ADM IN Location: [place] [address] Reason for Visit Reason for Visit: Diagnoses [...] Intake and Output for Last 24 Hours 04/24/25 04/25/25 04/26/25 23:59 23:59 23:59 Intake Total 1060 / [...] 35 minutes Charges/Coding Visit Charges Inpatient E&M: 27302 Subs Hosp L2 03/21/25 1203 Cosigner Signature (if applicable): CC: ~ Signed [facility]04-25-2025 Progress note Author Cahi Rider [facility] Note Date/Time March 20, 2025 7:3 7pm [facility] Medical Records Department [address] [place] [address] Progress Note - Hospitalist 03/20/251926 MR#: [id number] Acct: [id number] Name: PIPER CLARK Rep #:[id number] 1 : 1955 69 From: Chai Rider DO PCP: Dr. Genia Chappell MD Status:ADM IN Location: [place] [address] Reason for Visit Reason for Visit: Diagnoses [...] 73.9 H, Lymph % (Auto) 13.9 L, [place] % (Auto) 9.2, Eos % (Auto) 2.2, [...] (Auto) 93.9 H, Lymph % (Auto)4.3 L, [place] % (Auto) 1.2, Eos % (Auto) 0.0, [...] left humeral neck. Please correlate. Reading Location[facility] Echocardiogram 03/19/25 22:40 Interpretation Summary The study [...] 35 minutes Charges/Coding Visit Charges Inpatient E&M: 54806 Subs Hosp L2 03/20/251936 <Electronically signed by Chai Rider DO> Cosigner Signature (if applicable): CC: ~ Signed [facility] Work Phone: 1(317) 989-660404-25-2025 Progress note [facility] Medical Records Department [address] [place] [address] Progress Note - Hospitalist 03/20/251926 MR#: [id number] Acct: [id number] Name: PIPER CLARK Rep #:[id number] 1 : 1955 69 From: Chai Rider DO PCP: Dr. Genia Chappell MD Status:ADM IN Location: [place] [address] Reason for Visit Reason for Visit: Diagnoses [...] 73.9 H, Lymph % (Auto) 13.9 L, [place] % (Auto) 9.2, Eos % (Auto) 2.2, [...] (Auto) 93.9 H, Lymph % (Auto)4.3 L, [place] % (Auto) 1.2, Eos % (Auto) 0.0, [...] 35 minutes Charges/Coding Visit Charges Inpatient E&M: 37361 Subs Hosp L2 03/20/251936 Cosigner Signature (if applicable): CC: ~ Signed [facility]04-25-2025 History and physical note Author Orlando Maldonado [facility] Note Date/Time March 20, 2025 6:1 7am [facility] Medical Records Department [address] [place] [address] H&P Exam - Hospitalist 03/19/252137 MR#: [id number] Acct: [id number] Name: PIPER CLARK Rep #:[id number] 2 : 1955 69 From: Orlando Zavaleta DO PCP: Dr. Genia Chappell MD Status:ADM IN Location: [place] [address] HPI - General General Date of Admission: [...] on acetaminophen twice daily who presents to [facility] ER complaining of shortness of breath, wheezing [...] is expected to extend beyond 2 midnights. [facility] Medical History Atrial fibrillation Hypertension Abnormal stress [...] 73.9 H, Lymph % (Auto) 13.9 L, [place] % (Auto) 9.2, Eos % (Auto) 2.2, [...] left humeral neck. Please correlate. Reading Location: [facility] Assessment & Plan Assessment/Plan (1) COPD exacerbation: (2) CHF (congestive heart failure): QUALIFIERS: Heart failure type: unspecified Heart failure chronicity: acute Qualified Code(s): I50.9 - Heart failure, unspecified (3) Edema of both legs: (4) Elevated troponin: (5) Coronary artery disease: QUALIFIERS: Coronary Disease-Associated Artery/Lesion type: unspecified vessel or lesion type [place] vs. transplanted heart: [place] heart Associated angina: without angina Qualified Code(s): I25.10 - Atherosclerotic heart disease of [place] coronary artery without angina pectoris (6) Respiratory [...] - Serialize troponin to follow trend. 4. Yukrw-wb-Hvogmbq Respiratory Insufficiency attributable to #1 - #3 [...] 75 minutes. Charges/Coding Visit Charges Inpatient E&M: 06250 Init Hosp L3 03/20/25 0617 <Electronically signed by Orlando Bolden DO> Cosigner Signature (if applicable): CC: Dr. Genia Chappell MD; Dr. Orlando Bolden DO~ Signed [facility] Work Phone: 1(918) 376-629504-25-2025 History and physical note [facility] Medical Records Department [address] [place] [address] H&P Exam - Hospitalist 03/19/252137 MR#: [id number] Acct: [id number] Name: PIPER CLARK Rep #:[id number] 2 : 1955 69 From: Orlando Zavaleta DO PCP: Dr. Genia Chappell MD Status:ADM IN Location: [facility] [id number] [facility] General Date of Admission: 03/19/25 Date of [...] on acetaminophen twice daily who presents to [facility] ER complaining of shortness of breath, wheezing [...] is expected to extend beyond 2 midnights. [facility] Medical History Atrial fibrillation Hypertension Abnormal stress [...] 73.9 H, Lymph % (Auto) 13.9 L, [place] % (Auto) 9.2, Eos % (Auto) 2.2, [...] humeral neck. Please correlate. Reading Location: [facility] Assessment & Plan Assessment/Plan (1) COPD exacerbation: (2) CHF (congestive heart failure): QUALIFIERS: Heart failure type: unspecified Heart failure chronicity: acute Qualified Code(s): I50.9 - Heart failure, unspecified (3) Edema of both legs: (4) Elevated troponin: (5) Coronary artery disease: QUALIFIERS: Coronary Disease-Associated Artery/Lesion type: unspecified vessel or lesion type [place] vs. transplanted heart: [place] heart Associated angina: without angina Qualified Code(s): I25.10 -Atherosclerotic heart disease of [place] coronary artery without angina pectoris (6) Respiratory [...] - Serialize troponin to follow trend. 4. Vkvmj-pd-Tacdsqt Respiratory Insufficiency attributable to #1 - #3 [...] 75 minutes. Charges/Coding Visit Charges Inpatient E&M: 73305 Init Hosp L3 03/20/25 0617 Cosigner Signature (if applicable): CC: Dr. Genia Chappell MD; Dr. Orlando Bolden DO~ Signed [facility]04-25-2025 Discharge summary Author [facility] Note Date/Time March 19, 2025 10: 08pm [facility] Medical Records Department [address] [place] [address] Emergency Department Summary 03/19/25 MR#: [id number] Acct: [id number] Name: PIPER CLARK Rep #:[id number] : 1955 69 From: Juan F Curran DO PCP: Dr. Genia Chappell MD Status:ADM IN Location: [place] [address]- 1 HPI History of Present Illness Chief Complaint: [...] last 10 months of about 30 pounds [facility] Medical History Atrial fibrillation Hypertension [...] 0.8. Troponin slightly elevated 19 and BT SEWER REPAIRER was elevated at thousand 3. Chest x-ray [...] 73.9 H Lymph % (Auto) 13.9 L [place] % (Auto) 9.2 Eos % (Auto) 2.2 [...] left humeral neck. Please correlate. Reading Location: [facility] 1 view chest x-ray obtained interpreted by [...] Referrals: Christy Perea MD [Med Staff - Research Project Manager] - Print Language: St Helenian Disposition Disposition: Acute Care Hospital [facility] What to do if you have Problems For any increased pain, shortness of breath, bleeding, nausea or vomiting, chestpain, or any unexpected problems, contact your Primary Care Provider. Call [facility] ([phone]) or report to the closest Emergency Room. Call 911 if necessary. 03/19/252207 <Electronically signed by Juan F Curran DO> Cosigner Signature (if applicable): CC: Dr. Genia Chappell MD ~ Signed [facility] Work Phone: 1(442) 899-119304-25-2025 Evaluation note* Diagnosis Onset Date Resolution Status Admit Date Respiratory insufficiency resolved March 19, 2025 10:05pm Acute dyspnea inactive March 19, 2025 10:05pm Atrial fibrillation inactive March 19, 2025 10:05pm CHF (congestive heart failure) inact [place] March 19, 2025 10:05pm Chronic anticoagulation inactive A [facility] 2024 10:05pm COPD exacerbation inactive February 252024 10:05pm Coronary artery disease inactive A [facility] 2024 10:05pm Edema of both legs inactive March 19, 2025 10:05pm Elevated troponin inactive February 252024 10:05pm Morbid obesity with BMI of 45.0-49.9, adult inactive March 19 10:05pm [facility] Work Phone: 1(864) 448-601504-25-2025 Evaluation note* Diagnosis Onset Date Resolution Status Admit Date Morbid obesity with BMI of 45.0-49.9, adult acute March 19 10:05pm Respiratory insufficiency resolved March 19, 2025 10:05pm Acute dyspnea inactive March 19, 2025 10:05pm Atrial fibrillation inactive March 19, 2025 10:05pm CHF (congestive heart failure) inact [place] March 19, 2025 10:05pm Chronic anticoagulation inactive A [facility] 2024 10:05pm COPD exacerbation inactive February 252024 10:05pm Coronary artery disease inactive [facility] 2024 10:05pm Edema of both legs inactive [...] 1:12pm Atrial fibrillation chronic March 262024 11:12pm [facility] Work Phone: 1(542) 991-315704-25-2025 Evaluation note* Diagnosis Onset Date Resolution Status [...] 252024 10:05pm Coronary artery disease inactive A 2024 10:05pm Edema of both legs inactive [...] 1:26pm Atrial fibrillation chronic March 262024 11:26pm [facility] Work Phone: 1(170) 784-833604-25-2025 Evaluation note* Diagnosis Onset Date Resolution Status Admit Date Morbid obesity with BMI of 45.0-49.9, adult acute March 19 10:05pm Coronary artery disease chronic A 2024 10:05pm Respiratory insufficiency resolved March 19, [...] 2:23pm Sleep apnea chronic April 30 2:23pm [facility] Work Phone: 1(258) 958-351104-25-2025 Evaluation note* Diagnosis Onset Date Resolution Status Admit Date Morbid obesity with BMI of 45.0-49.9, adult acute March 19 10:05pm Coronary artery disease chronic A l 2024 10:05pm Respiratory insufficiency resolved March 19, [...] 1 1:26pm Chronic anticoagulation acute M ay th, 2025 11:26pm Elevated brain natriuretic peptide (BNP) level [...] obstructive pulmonary disease) chronic May 06 2:36am [facility] Work Phone: 1(576) 909-263904-25-2025 Evaluation note* Diagnosis Onset Date Resolution Status [...] 30, 2025 2:23pm Coronary artery disease chronic 2024 2:23pm Hypertension chronic April 30 2:23pm Morbid obesity chronic April 30, 2025 2:23pm Sleep apnea chronic April 30 2:23pm Acute confusion acute April 11:54am Acute hypokalemia acute May 082024 11:54am Alkalosis acute May 08 11:54am Metabolic alkalosis acute May 08, 2025 11:54am Respiratory acidosis acute May 08, 2025 11:54am Weakness acute May 08 11:54am Chronic respiratory failure with hypoxia and hypercapnia chronic April 11:54am COPD (chronic obstructive pulmonary disease) chronic May 08 11:54am [facility] Work Phone: 1([phone]) 731-716104-25-2025 Evaluation note* Diagnosis Onset Date Resolution Status Admit Date Morbid obesity with BMI of 45.0-49.9, adult acute March 19 10:05pm Coronary artery disease chronic A l 2024 10:05pm Respiratory insufficiency resolved March 19, [...] April 30 2:23pm Acute confusion acute April 11:54am Acute hypokalemia acute May 082024 11:54am Alkalosis acute May 08 11:54am Metabolic alkalosis acute May 08, 2025 11:54am Respiratory acidosis acute May 08, 2025 11:54am Weakness acute May 08 11:54am Chronic respiratory failure with hypoxia and hypercapnia chronic April 11:54am COPD (chronic obstructive pulmonary disease) chronic May 08 11:54am Acute confusion acute April 9:56am Fatigue acute May 14 9:56am (HFpEF) heart failure with preserved ejection fraction chronic May 14, 2025 9:56am Atrial fibrillation chronic May 14, 2025 9:56am Chronic airway obstruction chronic May 14, 2025 9:56am Coronary artery disease chronic J 2024 9:56am Hypertension chronic May 14, 9:56am Morbid obesity chronic May 14, 2025 9:56am Sleep apnea chronic May 14 9:56am [facility] Work Phone: 1(797) 256-841704-25-2025 Evaluation note* Diagnosis Onset Date Resolution Status Admit Date Morbid obesity with BMI of 45.0-49.9, adult acute March 19 10:05pm Coronary artery disease chronic A 2024 10:05pm Respiratory insufficiency resolved March 19, [...] 2025 2:23pm Coronary artery disease chronic J [facility] 2024 2:23pm Hypertension chronic April 30 2:23pm Morbid obesity chronic April 30, 2025 2:23pm Sleep apnea chronic April 30 2:23pm Acute confusion resolved April 11:54am Acute hypokalemia resolved May 082024 11:54am Weakness resolved May 08 11:54am Alkalosis inactive May 08 11:54am Chronic respiratory failure with hypoxia and hypercapnia inactive April 11:54am COPD (chronic obstructive pulmonary disease) inactive May 08 11:54am Metabolic alkalosis inactive May 08, 2025 11:54am Respiratory acidosis inactive May 08, 2025 11:54am Fatigue acute May 14 9:56am (HFpEF) heart failure with preserved ejection fraction chronic May 14, 2025 9:56am Atrial fibrillation chronic May 14, 2025 9:56am Chronic airway obstruction chronic May 14, 2025 9:56am Coronary artery disease chronic J une 2024 9:56am Hypertension chronic May 14, 025 9:56am Morbid obesity chronic May 14, 2025 9:56am Sleep apnea chronic May 14 9:56am Acute confusion resolved April 9:56am [facility] Work Phone: [phone] 200-500004-25-2025 Evaluation note* Diagnosis Onset Date Resolution Status [...] apnea chronic April 30 2:23pm Acute confusion resolved April 11:54am Acute hypokalemia resolved May 082024 11:54am Weakness resolved May 08 11:54am Alkalosis inactive May 08 11:54am Chronic respiratory failure with hypoxia and hypercapnia inactive April 11:54am COPD (chronic obstructive pulmonary disease) inactive May 08 11:54am Metabolic alkalosis inactive May 08, 2025 11:54am Respiratory acidosis inactive May 08, 2025 11:54am Fatigue acute May 14 9:56am (HFpEF) heart failure with preserved ejection fraction chronic May 14, 2025 9:56am Atrial fibrillation chronic May 14, 2025 9:56am Chronic airway obstruction chronic May 14, 2025 9:56am Coronary artery disease chronic J [facility] 2024 9:56am Hypertension chronic May 14, 025 9:56am Morbid obesity chronic May 14, 2025 9:56am Sleep apnea chronic May 14 9:56am Acute confusion resolved April 9:56am Fatigue acute June 01, 2025 11:17am (HFpEF) heart failure with preserved ejection fraction chronic June 01, 2025 11:17am Atrial fibrillation chronic June 01, 2025 11:17am Chronic airway obstruction chronic June 01, 2025 11:17am Coronary artery disease chronic J 2024 11:17am Hypertension chronic June 01 11:17am Morbid obesity chronic June 01, 2025 11:17am Sleep apnea chronic June 01 11:17am Acute confusion resolved June 01, 2025 11:17am [facility] Work Phone: 1(939) 538-688404-25-2025 Evaluation note* Diagnosis Onset Date Resolution Status Admit Date Morbid obesity with BMI of 45.0-49.9, adult acute March 19 10:05pm Coronary artery disease chronic A l 2024 10:05pm Respiratory insufficiency resolved March 19, [...] 2025 2:23pm Coronary artery disease chronic J une 2024 2:23pm Hypertension chronic April 30 2:23pm Morbid obesity chronic April 30, 2025 2:23pm Sleep apnea chronic April 30 2:23pm Acute confusion resolved April 11:54am Acute hypokalemia resolved May 082024 11:54am Weakness resolved May 08 11:54am Alkalosis inactive May 08 11:54am Chronic respiratory failure with hypoxia and hypercapnia inactive April 11:54am COPD (chronic obstructive pulmonary disease) inactive May 08 11:54am Metabolic alkalosis inactive May 08, 2025 11:54am Respiratory acidosis inactive May 08, 2025 11:54am Fatigue acute May 14 9:56am (HFpEF) heart failure with preserved ejection fraction chronic May 14, 2025 9:56am Atrial fibrillation chronic May 14, 2025 9:56am Chronic airway obstruction chronic May 14, 2025 9:56am Coronary artery disease chronic J une 2024 9:56am Hypertension chronic May 14, 025 9:56am Morbid obesity chronic May 14, 2025 9:56am Sleep apnea chronic Chana 19th, 20 25 9:56am Acute confusion resolved April 9:56am Fatigue acute June 01, 2025 11:17am (HFpEF) heart failure with preserved ejection fraction chronic June 01, 2025 11:17am Atrial fibrillation chronic June 01, 2025 11:17am Chronic airway obstruction chronic June 01, 2025 11:17am Coronary artery disease chronic J ally 2024 11:17am Hypertension chronic June 01 11:17am Morbid obesity chronic June 01, 2025 11:17am Sleep apnea chronic June 01 11:17am Acute confusion resolved June 01, 2025 11:17am (HFpEF) heart failure with preserved ejection fraction chronic Augu st 2024 10:30am [facility] Work Phone: 1(490) 429-119904-25-2025 Evaluation note* Diagnosis Onset Date Resolution Status Admit Date Morbid obesity with BMI of 45.0-49.9, adult acute March 19 10:05pm Coronary artery disease chronic A l 2024 10:05pm Respiratory insufficiency resolved March 19, [...] 2025 2:23pm Coronary artery disease chronic J une 2024 2:23pm Hypertension chronic April 30 2:23pm Morbid obesity chronic April 30, 2025 2:23pm Sleep apnea chronic April 30 2:23pm Acute confusion resolved April 11:54am Acute hypokalemia resolved May 082024 11:54am Weakness resolved May 08 11:54am Alkalosis inactive May 08 11:54am Chronic respiratory failure with hypoxia and hypercapnia inactive April 11:54am COPD (chronic obstructive pulmonary disease) inactive May 08 11:54am Metabolic alkalosis inactive May 08, 2025 11:54am Respiratory acidosis inactive May 08, 2025 11:54am Fatigue acute May 14 9:56am (HFpEF) heart failure with preserved ejection fraction chronic May 14, 2025 9:56am Atrial fibrillation chronic May 14, 2025 9:56am Chronic airway obstruction chronic May 14, 2025 9:56am Coronary artery disease chronic J une 2024 9:56am Hypertension chronic May 14, 025 9:56am Morbid obesity chronic May 14, 2025 9:56am Sleep apnea chronic May 14 9:56am Acute confusion resolved April 9:56am Fatigue acute June 01, 2025 11:17am (HFpEF) heart failure with preserved ejection fraction chronic June 01, 2025 11:17am Atrial fibrillation chronic June 01, 2025 11:17am Chronic airway obstruction chronic June 01, 2025 11:17am Coronary artery disease chronic J ally 2024 11:17am Hypertension chronic June 01 11:17am Morbid obesity chronic June 01, 2025 11:17am Sleep apnea chronic June 01 11:17am Acute confusion resolved June 01, 2025 11:17am Chronic anticoagulation acute A ugust 2024 10:30am Edema acute July 01 10:30am WINIFRED (obstructive sleep apnea) acute July 01, 2025 10:30am (HFpEF) heart failure with preserved ejection fraction chronic Augu st 2024 10:30am Atrial fibrillation chronic Augus t 2024 10:30am Coronary artery disease chronic A ugust 2024 10:30am Hypertension chronic July 01, 2025 10:30am [facility] Work Phone: 1(940) 735-500004-24-2025 Discharge summary [facility] Medical Records Department [address] [place] [address] Emergency Department Summary 03/19/25 MR#: [id number] Acct: [id number] Name: PIPER CLARK Rep #:[id number] : 1955 69 From: Juan F Curran DO PCP: Dr. Genia Chappell MD Status:ADM IN Location: [place] [address] HPI History of Present Illness Chief Complaint: [...] last 10 months of about 30 pounds [facility] Medical History Atrial fibrillation Hypertension [...] 0.8. Troponin slightly elevated 19 and BT SEWER REPAIRER was elevated at thousand 3. Chest x-ray [...] 73.9 H Lymph % (Auto) 13.9 L [place] % (Auto) 9.2 Eos % (Auto) 2.2 [...] left humeral neck. Please correlate. Reading [facility] 1 view chest x-ray obtained interpreted by [...] Referrals: Christy Perea MD [Med Staff - Research Project Manager] - Print Language: St Helenian Disposition Disposition: Acute Care Hospital [facility] What to do if you have Problems For any increased pain, shortness of breath, bleeding, nausea or vomiting, chestpain, or any unexpected problems, contact your Primary Care Provider. Call [facility] ([phone]) or report tothe closest Emergency Room. Call 911 if necessary. 03/19/252207 Cosigner Signature (if applicable): CC: Dr. Genia Chappell MD ~ Signed [facility]04-24-2025 Radiology Diagnostic study note [facility] Imaging Services [address] [place] [address] Chest 1 View (Portable) MR#: [id number] Acct: [id number] Name: PIPER CLARK Rep #: [id number] : 1955 F 69 From: Juvenal Malagon DO PCP: Dr. Genia Chappell MD Status: REG ER Study:Chest 1 View (Portable) Date of Exam: 03/19/25 Exam# [id number] Ordering Dr: Stephany Curran DO PROCEDURE: CHEST [...] MD; Dr. Juan F Curran DO ~ Picker Machine Operator: Signed [facility]01-09-2025 Evaluation note* Diagnosis Onset Date Resolution Status [...] artery disease chronic A pril 2024 10:05pm [facility] Work Phone: 1([phone] 300-517501-09-2025 Evaluation note* Diagnosis Onset Date Resolution Status [...] 252024 10:05pm Coronary artery disease inactive [facility] 2024 10:05pm Edema of both legs inactive March 19, 2025 10:05pm Elevated troponin inactive February 252024 10:05pm Morbid obesity with BMI of 45.0-49.9, adult inactive March 19 10:05pm [facility] Work Phone: 1(998) 227-915612-03-2024 Evaluation note* Diagnosis Onset Date Resolution Status Admit Date Atrial fibrillation chronic Decem gerardo 2023 2:14pm Chronic airway obstruction chronic October 28, 2024 2:14pm Coronary artery disease chronic D ecember 2023 2:14pm Hypertension chronic October 2:14pm Morbid obesity chronic October 282023 2:14pm Sleep apnea chronic October 28, 2024 2:14pm Fracture of left shoulder inactive December 04, 2024 1:43pm [facility] Work Phone: 1(288) 898-413108-14-2023 Progress note Author Preston Pineda [facility] July 09, 2023 3:21pm Note Date/Time July 09, 2023 3: 20pm [facility] Medical Records Department [address] [place] [address] Progress Note - Hospitalist 07/09/23 1511 MR#: [id number] Acct: [id number] Name: PIPER CLARK Rep #:[id number] : 1955 67 From: Preston desai DO PCP: Dr. Christy Perea MD Status:ADM IN Location: [place] [address] Reason for Visit Reason for Visit: Diagnoses [...] 78.6 H, Lymph % (Auto) 10.0 L, [place] % (Auto) 9.7, Eos % (Auto) 1.0, [...] 91.8 H, Lymph % (Auto) 5.0 L, [place] % (Auto) 2.0, Eos % (Auto) 0.0, [...] CPAP, GERD and anxiety/depression who presented to [facility] on 07/08 with worsening dyspnea. 1. Acute [...] 35 minutes. Charges/Coding Visit Charges Inpatient E&M: 01664 Subs Hosp L2 07/09/23 1521 <Electronically signed by Preston Pineda DO> Cosigner Signature (if applicable): CC: ~ Signed [facility] Work Phone: 1(416) 162-338108-14-2023 Discharge summary Author Archie Gamino [facility] July 09, 2023 12:44am Note Date/Time July 08, 2023 3: 24pm [facility] Medical Records Department [address] [place] [address] Emergency Department Summary 07/08/23 MR#: [id number] Acct: [id number] Name: PIPER CLARK Rep #:[id number] : 1955 67 From: Archie Lopez PCP: Dr. Christy Perea MD Status:ADM IN Location: [place] [address] HPI History of Present Illness Chief Complaint: [...] states that she was on vacation in [place] when thisbegan. Patient states it is gradually gotten worse. Patient states she drove back from [place]. Patient states her breathing is worse with [...] or PE, Recent immobilization or Recent surgery [facility] Medical History Arthritis Cellulitis and [...] 78.6 H Lymph % (Auto) 10.0 L [place] % (Auto) 9.7 Eos % (Auto) 1.0 [...] sinus rhythm with a rate of 90. MA interval, QRS interval, and QTc intervals were all normal. [place] was normal. There are no acute ST [...] Provider] - Disposition Disposition: Acute Care Hospital [facility] What to do if you have Problems For any increased pain, shortness of breath, bleeding, nausea or vomiting, chestpain, or any unexpected problems, contact your Primary Care Provider. Call [facility] ([phone]) or report to the closest Emergency Room. Call 911 if necessary. 07/09/23 0044 <Electronically signed by Archie Gamino DO> Cosigner Signature (if applicable): CC: Dr. Christy Perea MD ~ Signed [facility] Work Phone: 1(195) 526-811208-13-2023 History and physical note Author Geoff Galvan [facility] July 08, 2023 8:15pm Note Date/Time July 08, 2023 5: 20pm [facility] Medical Records Department [address] [place] [address] H&P Exam - Hospitalist 07/08/23 1716 MR#: [id number] Acct: [id number] Name: PIPER CLARK Rep #:[id number] : 1955 67 From: Geoff mora MD PCP: Dr. Christy Perea MD Status:ADM IN [place] [facility] HPI - General General Date of Admission: 07/08/23 HPI Narrative PIPER CLARK, is a 67 F who presents to the hospital with shortness of breath. This started 4 to 5 days ago while she was in [place] for family reunion. She has been noticing [...] wears oxygen at night through her CPAP. [facility] Medical History (Updated 07/08/23 @ 19:53 by [...] 78.6 H, Lymph % (Auto) 10.0 L, [place] % (Auto) 9.7, Eos % (Auto) 1.0, [...] Perea MD; Dr. Geoff Galvan MD~ Signed [facility] Work Phone: 1(604) 802-324208-25-2022 Miscellaneous Notes* Telephone Encounter - Stephany Lind [...] questions. Bhavik ZAMORANO, RN PH & HHT Microelectronics Assembler Respiratory [place] [facility] documented in this encounterMercy Health [facility]08-24-2022 NoteHNO ID: [id number] Author: Lorne Newell MD Service: ? Author [...] meds. Access site: Right internal jugular vein [place] Evelia size: 7.5 F. Anesthesia: Lidocaine 1% Procedure Narrative: Consent was obtained. Time out taken. Performed at procedure room in G61. Under sterile condition, lidocaine 1 % (5 ml) was applied and under US guidance a 8.5 F introducer was inserted without difficulty. Wire was noted to be located in the SVC under fluoroscopy. A [place]-Evelia catheter was advanced to the right pulmonary [...] MD on July 19, 2022 at 4:01 PM.[facility]08-24-2022 History of Present illness Narrative* Lorne Newell [...] meds. Access site: Right internal jugular vein [place] Evelia size: 7.5 F. Anesthesia: Lidocaine 1% Procedure Narrative: Consent was obtained. Time out taken. Performed at procedure room in 1. Under sterile condition, lidocaine 1 % (5 ml) was applied and under US guidance a 8.5 F introducer was inserted without difficulty. Wire was noted to be located in the SVC under fluoroscopy. A [place]-Evelia catheter was advanced to the right pulmonary [...] 4:01 PM. documented in this encounterMercy Health [facility]08-16-2022 Miscellaneous Notes* Telephone Encounter - Orlando Simpson MA - 07/11/2022 10:22 AM EDTSummary: Appointment Confirmation Called patient to confirm her RHC with Dr. Newell on 07/19 at 4pm. No answer, left VM. Orlando Simpson Clinical Science Writer [facility] [place] documented in this encounterMercy Health [facility]08-05-2022 NoteHNO ID: [id number] Author: Lorne Newell MD Service: ? Author Type: Physician Type: Progress Notes Filed: 06/30/2022 4:11 PM Note Text: VIRTUAL VISIT PROGRESS NOTE This is a virtual visit using Joturl video visit. It required patient-provider interaction for the medical decision making as documented below. Chief complaint: This patient is seen in consultation at the request of iMtchell Brian MD for opinion or advice on [...] oxygen desaturation at night 86%. Lives in [place] (1.5 hours from the clinic). No chest [...] which included preparing to see the patient, [id number] patient care, completing clinical documentation, obtaining and/or reviewing separately obtained history and ordering medications, tests, or procedures I will report my final recommendations back to the requesting physician by way of shared medical record or letter via US mail. Lorne Newell MD (more content not included)...[facility] 06-30-2022 History of Present illness Narrative* Lorne Newell MD - 06/30/2022 4:00 PM EDT Images from the original note were not included. VIRTUAL VISIT PROGRESS NOTE This is a virtual visit using Joturl video visit. It required patient-provider interaction for [...] oxygen desaturation at night 86%. Lives in [place] (1.5 hours from the clinic). No chest [...] which included preparing to see the patient, [id number] patient care, completing clinical documentation, obtaining and/or reviewing separately obtained history and ordering medications, tests, or procedures I will report my final recommendations back to the requesting physician by way of shared medical record or letter via US mail. Lorne Newell MD June 30, 2022 documented in this encounterMercy Health [facility]08-02-2022 NoteHNO ID: [id number] Author: Naa Croft APRN.SENIOR SOFTWARE QA ANALYST Service: ? Author Type: Nurse Practitioner Type: [...] order VQ Scan and RHC. Naa Croft APRN.[facility]HE[facility]08-02-2022 History of Present illness Narrative* Naa Croft [...] Croft APRN.MOSHE documented in this encounterMercy Health [facility]07-11-2022 Miscellaneous Notes* Telephone Encounter - Orlando Simpson MA - 06/05/2022 10:50 AM EDTSummary: Care Coordination Called patient to schedule her RHC with Dr. Newell on 07/19/2022 at 4pm. NPO 4 hours pre-procedure. Anticoagulation: None at this time Must have a parts driver for transportation post procedure. May take other medications as prescribed prior to procedure. Check in at desk G-11 at 3:30pm Orlando Simpson Clinical Science Writer [facility] [place] documented in this encounterMercy Health [facility]07-08-2022 Miscellaneous Notes* Telephone Encounter - Orlando Simpson MA - 06/02/2022 9:35 AM EDTSummary: Care Coordination Called patient to schedule her RHC with Dr. Newell. No answer, left VM. Orlando Simpson Clinical Science Writer [facility] Respiratory [place] documented in this encounterMer[facility]06-[facility]22 Miscellaneous Notes* Telephone Encounter - Devonte Navas - 05/18/2022 1:[address] Mitchell Brian contacted Mic Webber MD for a RHC. Dr. Webber does not perform RHC's and has deferred to Dr. Newell. I am requesting recent office notes from office: [phone] documented in this encounterMercy Health Urbana HospitalConsult note Author Lesly King [facility] July 10, 2023 1:41pm Note Date/Time July 10, 2023 1: 41pm [facility] Medical Records Department [address] [place] [id number] Counseling Note - Pharmacy 07/10/23 1340 MR#: [id number] Acct: [id number] Name: PIPER CLARK Rep #:[id number] : 1955 67 From: Lesly King PCP: Dr. Christy Perea MD Status:ADM IN [place] [facility] [place] [id number] [place] [facility] has performed discharge medication reconciliation [...] of their dischargemedications. Patient counseled by pharmacy technician traineeAna. Medications at Discharge Home Medications calcium carbonate [...] by Lesly King> Date _ Lesly King Cossherer Signature (if applicable): Date CC: ~ Signed [facility] Work Phone: Consult note Author Lesly King [facility] Note Date/Time March 24, 2025 3:4 0pm [facility] Medical Records Department [address] [place] [address] Counseling Note - Pharmacy 03/24/25 1345 MR#: [id number] Acct: [id number] Name: PIPER CLARK Rep #:[id number] : 1955 69 From: Lesly King PCP: Dr. Genia Chappell MD Status:ADM IN Y Location: [place] [address] Pharmacy [facility] has performed discharge medication reconciliation [...] Signature (if applicable): Date CC: ~ Signed [facility] Work Phone: Discharge summary Author Preston Pineda [facility] July 10, 2023 12:55pm Note Date/Time July 10, 2023 12 :49pm [facility] Medical Records Department [address] [place] [id number] Instructions for Home/Discharge Instructions 07/10/23 1247 MR#: [id number] Acct: [id number] Name: PIPER CLARK Rep #:[id number] : 1955 67 From: Preston Mckeon [...] PCP as needed, and follow-up with your field return repairer in the next 4 to 6 weeks. [...] MD; Dr. Geoff Galvan MD ~ Signed [facility] Work Phone: Discharge summary Author Cindi Lizarraga [facility] Note Date/Time May 08, 2025 1:33 pm [facility] Medical Records Department [address] [place] [address] Instructions for Home/Discharge Instructions 05/08/25 1333 MR#: [id number] Acct: [id number] Name: PIPER CLARK Rep #:[id number] : 1955 69 From: Cindi Lizarraga [...] if applicable. Discharge Plan Admission Admit Date/Time: 05/08/25 11:54 Primary Reason for Your Visit: hypokalemia, debility Attending Provider: Cindi Lizarraga Primary Care Provider: Genia Chappell Consulting Providers: Vannesa Camejo Instructions Patient Instructions: ED Hypokalemia, ED Potassium-Rich Foods Discharge Orders/Prescriptions Prescriptions: New potassium chloride [K-Tab] 20 mEq tablet extended release 20 meq PO BID Qty: 60 2RF Continued duloxetine 60 mg capsule,delayed release(DR/EC) 60 mg PO DAILY dapagliflozin propanediol [Farxiga] 10 mg tablet 10 mg PO QDAY Qty: 90 3RF metolazone 5 mg tablet 5 mg PO QDAY Qty: 90 3RF digoxin 250 mcg (0.25 mg) tablet 250 mcg PO QDAY Qty: 90 3RF montelukast 10 MG tablet 10 mg PO [...] IN MORNING, AND 1 TAB IN AFTERNOON. Eliquis 5 mg tablet 5 mg PO BID Qty: 60 11RF metoprolol tartrate 50 mg tablet 50 mg PO BID Discontinued levofloxacin 500 mg tablet 500 mg PO DAILY Qty: 7 0RF potassium chloride 20 mEq tablet extended release 20 meq PO DAILY Qty: 90 3RF Patient Comments: WHEN PT TAKES FUROSEMIDE, SHE TAKES POTASSIUM WELL, CURRENTLY ONCE IN AM, AND ONCE AT NOON Referrals / Follow Up: Genia Chappell MD [Primary Care Provider] - Within 1 Week Disposition Disposition (needs filled in before D/C Order can be placed): Home, Self Care 05/08/25 1333<Electronically signed by Cindi Lizarraga MD>Cindi Lizarraga MD CC: Dr. Genia Chappell MD; Dr. Vannesa Camejo, DO ~ Signed [facility] Work Phone: Evaluation note* Diagnosis Onset Date Resolution Status Acute sinusitis acute [facility] Work Phone: Evaluation note* Diagnosis Other secondary pulmonary hypertension (HCC) documented in this encounter [facility] note* Diagnosis Stage 3 severe COPD by GOLD classification (HCC) Abnormal echocardiogram Nonspecific (abnormal) findings on radiological and other examination of other intrathoracic organs documented in this encounter [facility] note* Diagnosis Stage 3 severe COPD by GOLD classification (HCC)- Primary documented in this encounter [facility] note* Diagnosis Pulmonary hypertension (HCC)- Primary Other chronic pulmonary heart diseases documented in this encounter [facility] noteNo assessment information availableWMount St. [facility] Work Phone: Evaluation note* Diagnosis Onset Date Resolution Status Acute respiratory failure with hypoxia acute Hypoxia acute COPD exacerbation chronic [facility] Work Phone: Evaluation note* Diagnosis Onset Date Resolution Status Acute respiratory failure with hypoxia acute COPD exacerbation chronic Hypoxia resolved [facility] Work Phone: Evaluation note* Diagnosis Onset Date Resolution Status Atrial fibrillation chronic Chronic airway obstruction c hronic Hypertension chronic Morbid obesity chronic Sleep apnea chronic [facility] Work Phone: Reason for referral (narrative)* Diagnostic Procedure Only (Routine) - Pending Review Specialty Diagnoses / Procedures Referred By Conttoshia t Referred To Contact MOLECULAR & FUNCTIONAL IMAGING Diagnoses Other secondary pulmonary hypertension (HCC) Procedures NM LUNG VENT / PERF VQ PULMONARY VENTILATION & PERFUSION IMAGING Rachel Seaman, JT.DATA SUPPORT ANALYST [address] [place] [address] Molecular & Functional Imaging [address] [place] [address] Referral ID Status Reason Start Date Expiration Date Visits Requested Visits Authorized [id number] Pending Review Auto-Generat ed Referral 05/19/2022 06/18/2023 1 1 [facility] for referral (narrative)No reason for referral information availableWMount St. [facility] Work Phone: Chief Complaint and Reason [...] Chronic Obstructive Pulmonary Disease (COPD) J44.9 TACHYCARDIA ([facility]) COPD Reason for Visit Atrial fibrillation Chronic airway obstruction Hypertension Morbid obesity Sleep apnea Chief Complaint Chronic Obstructive Pulmonary Disease (COPD) J44.9 tachycardia Chronic Obstructive Pulmonary Disease (COPD) J44.9 TACHYCARDIA ([facility]) COPD AZAR AZAR COPD Reason for Visit Atrial fibrillation Chronic airway obstruction Hypertension Morbid obesity Sleep apnea Chief Complaint Chronic Obstructive Pulmonary Disease (COPD) J44.9 tachycardia Chronic Obstructive Pulmonary Disease (COPD) J44.9 TACHYCARDIA ([facility]) COPD AZAR AZAR COPD E [...] lower extremity March 262024 11:26pm Chronic anticoagulation May 11th, 2025 1 1:26pm Elevated brain natriuretic peptide [...] May 06, 2025 2:36 am Metabolic alkalosis May 06, 2025 2:36 am Respiratory acidosis May 06, 2025 2:3 6am Weakness May 06, 2025 2:36 am Chronic respiratory failure with hypoxia and hypercapnia May 06, 2025 2:36am COPD (chronic obstructive pulmonary dise ase) May 06, 2025 2:36am Chief Complaint Admit Date AE COPD AE [...] 2025 2:28 am HYPOKALEMIA/CONTRACTION ALKALOSIS April 262024 2:51pm HYPOKALEMIA/CONTRACTION ALKALOSIS April 262024 11:54am Reason for Visit Admit Date Morbid obesity [...] 30, 2025 2:23p m Acute confusion May 08, 2025 11:5 4am Acute hypokalemia May 08, 2025 11:5 4am Alkalosis May 08, 2025 11:5 4am Metabolic alkalosis May 08, 2025 11:5 4am Respiratory acidosis May 08, 2025 11: 54am Weakness May 08, 2025 11:5 4am Chronic respiratory failure with hypoxia and hypercapnia May 08, 2025 11:54am COPD (chronic obstructive pulmonary dise ase) May 08, 2025 11:54am Chief Complaint Admit Date AE COPD AE [...] 2025 2:28 am HYPOKALEMIA/CONTRACTION ALKALOSIS April 262024 2:51pm HYPOKALEMIA/CONTRACTION ALKALOSIS April 262024 11:54am HYPOKALEMIA/CONTRACTION ALKALOSIS April 262024 1:33pm See clinical notes, S/P hospital. Rebecca dodd 2024 9:56am Reason for Visit Admit Date Morbid obesity [...] 30, 2025 2:23p m Acute confusion May 08, 2025 11:5 4am Acute hypokalemia May 08, 2025 11:5 4am Alkalosis May 08, 2025 11:5 4am Metabolic alkalosis May 08, 2025 11:5 4am Respiratory acidosis May 08, 2025 11: 54am Weakness May 08, 2025 11:5 4am Chronic respiratory failure with hypoxia and hypercapnia May 08, 2025 11:54am COPD (chronic obstructive pulmonary dise ase) May 08, 2025 11:54am Acute confusion May 14, 2025 9:56 am Fatigue May 14, 2025 9:56 am (HFpEF) heart failure with preserved eje ction fraction May 14, 2025 9:56am Atrial fibrillation May 14, 2025 9:56 am Chronic airway obstruction May 14 9:56am Coronary artery disease May 14, 2025 9:56am Hypertension May 14, 2025 9:56 am Morbid obesity May 14, 2025 9:56 am Sleep apnea May 14, 2025 9:56 am Chief Complaint Admit Date AE COPD AE [...] 2025 2:28 am HYPOKALEMIA/CONTRACTION ALKALOSIS April 262024 2:51pm HYPOKALEMIA/CONTRACTION ALKALOSIS April 262024 11:54am HYPOKALEMIA/CONTRACTION ALKALOSIS April 262024 1:33pm See clinical notes, S/P hospital. Rebecca Jacques une 2024 9:56am INT LAB ORDERS May 14, 2025 11:1 7am Reason for Visit Admit Date Morbid obesity [...] 30, 2025 2:23p m Acute confusion May 08, 2025 11:5 4am Acute hypokalemia May 08, 2025 11:5 4am Weakness May 08, 2025 11:5 4am Alkalosis May 08, 2025 11:5 4am Chronic respiratory failure with hypoxia and hypercapnia May 08, 2025 11:54am COPD (chronic obstructive pulmonary dise ase) May 08, 2025 11:54am Metabolic alkalosis May 08, 2025 11:5 4am Respiratory acidosis May 08, 2025 11: 54am Fatigue May 14, 2025 9:56 am (HFpEF) heart failure with preserved eje ction fraction May 14, 2025 9:56am Atrial fibrillation May 14, 2025 9:56 am Chronic airway obstruction May 14 9:56am Coronary artery disease May 14, 2025 9:56am Hypertension May 14, 2025 9:56 am Morbid obesity May 14, 2025 9:56 am Sleep apnea May 14, 2025 9:56 am Acute confusion May 14, 2025 9:56 am Chief Complaint Admit Date AE COPD AE [...] 2025 2:28 am HYPOKALEMIA/CONTRACTION ALKALOSIS April 262024 2:51pm HYPOKALEMIA/CONTRACTION ALKALOSIS April 262024 11:54am HYPOKALEMIA/CONTRACTION ALKALOSIS April 262024 1:33pm See clinical notes, S/P hospital. Rebecca Jacques [facility] 2024 9:56am INT LAB ORDERS May 14, 2025 11:1 7am See clinical notes, S/P hospital. Rebecca Jacques [facility] 2024 11:17am Reason for Visit Admit Date Morbid obesity [...] 30, 2025 2:23p m Acute confusion May 08, 2025 11:5 4am Acute hypokalemia May 08, 2025 11:5 4am Weakness May 08, 2025 11:5 4am Alkalosis May 08, 2025 11:5 4am Chronic respiratory failure with hypoxia and hypercapnia May 08, 2025 11:54am COPD (chronic obstructive pulmonary dise ase) May 08, 2025 11:54am Metabolic alkalosis May 08, 2025 11:5 4am Respiratory acidosis May 08, 2025 11: 54am Fatigue May 14, 2025 9:56 am (HFpEF) heart failure with preserved eje ction fraction May 14, 2025 9:56am Atrial fibrillation May 14, 2025 9:56 am Chronic airway obstruction May 14 9:56am Coronary artery disease May 14, 2025 9:56am Hypertension May 14, 2025 9:56 am Morbid obesity May 14, 2025 9:56 am Sleep apnea May 14, 2025 9:56 am Acute confusion May 14, 2025 9:56 am Fatigue June 01, 2025 11:17 am (HFpEF) heart failure with preserved eje ction fraction June 01, 2025 11:17am Atrial fibrillation June 01, 2025 11:17 am Chronic airway obstruction June 01 11:17am Coronary artery disease June 01, 2025 1 1:17am Hypertension June 01, 2025 11:17 am Morbid obesity June 01, 2025 11:17 am Sleep apnea June 01, 2025 11:17 am Acute confusion June 01, 2025 11:17 am Chief Complaint Admit Date AE COPD AE [...] 2025 2:28 am HYPOKALEMIA/CONTRACTION ALKALOSIS April 262024 2:51pm HYPOKALEMIA/CONTRACTION ALKALOSIS April 262024 11:54am HYPOKALEMIA/CONTRACTION ALKALOSIS April 262024 1:33pm See clinical notes, S/P hospital. Rebecca dodd 2024 9:56am INT LAB ORDERS May 14, 2025 11:1 7am See clinical notes, /[facility]. Rebecca canales 2024 11:17am Memory issues, Rule out CVA/TIA May 6:42pm Chief Complaint Admit Date AE COPD AE [...] 2025 2:28 am HYPOKALEMIA/CONTRACTION ALKALOSIS April 262024 2:51pm HYPOKALEMIA/CONTRACTION ALKALOSIS April 262024 11:54am HYPOKALEMIA/CONTRACTION ALKALOSIS April 262024 1:33pm See clinical notes, S/P hospital. Rebecca dodd 2024 9:56am INT LAB ORDERS May 14, 2025 11:1 7am See clinical notes, S/P hospital. Rebecca canales 2024 11:17am Memory issues, Rule out CVA/TIA May 6:42pm 2nd Opinion July 01, 2025 10: 30am Reason for Visit Admit Date Morbid obesity [...] 30, 2025 2:23p m Acute confusion May 08, 2025 11:5 4am Acute hypokalemia May 08, 2025 11:5 4am Weakness May 08, 2025 11:5 4am Alkalosis May 08, 2025 11:5 4am Chronic respiratory failure with hypoxia and hypercapnia May 08, 2025 11:54am COPD (chronic obstructive pulmonary dise ase) May 08, 2025 11:54am Metabolic alkalosis May 08, 2025 11:5 4am Respiratory acidosis May 08, 2025 11: 54am Fatigue May 14, 2025 9:56 am (HFpEF) heart failure with preserved eje ction fraction May 14, 2025 9:56am Atrial fibrillation May 14, 2025 9:56 am Chronic airway obstruction May 14 9:56am Coronary artery disease May 14, 2025 9:56am Hypertension May 14, 2025 9:56 am Morbid obesity May 14, 2025 9:56 am Sleep apnea May 14, 2025 9:56 am Acute confusion May 14, 2025 9:56 am Fatigue June 01, 2025 11:17 am (HFpEF) heart failure with preserved eje ction fraction June 01, 2025 11:17am Atrial fibrillation June 01, 2025 11:17 am Chronic airway obstruction June 01 11:17am Coronary artery disease June 01, 2025 1 1:17am Hypertension June 01, 2025 11:17 am Morbid obesity June 01, 2025 11:17 am Sleep apnea June 01, 2025 11:17 am Acute confusion June 01, 2025 11:17 am (HFpEF) heart failure with preserved eje ction fraction July 01, 2025 10:30am Reason for Visit Admit Date Morbid obesity [...] 30, 2025 2:23p m Acute confusion May 08, 2025 11:5 4am Acute hypokalemia May 08, 2025 11:5 4am Weakness May 08, 2025 11:5 4am Alkalosis May 08, 2025 11:5 4am Chronic respiratory failure with hypoxia and hypercapnia May 08, 2025 11:54am COPD (chronic obstructive pulmonary dise ase) May 08, 2025 11:54am Metabolic alkalosis May 08, 2025 11:5 4am Respiratory acidosis May 08, 2025 11: 54am Fatigue May 14, 2025 9:56 am (HFpEF) heart failure with preserved eje ction fraction May 14, 2025 9:56am Atrial fibrillation May 14, 2025 9:56 am Chronic airway obstruction May 14 9:56am Coronary artery disease May 14, 2025 9:56am Hypertension May 14, 2025 9:56 am Morbid obesity May 14, 2025 9:56 am Sleep apnea May 14, 2025 9:56 am Acute confusion May 14, 2025 9:56 am Fatigue June 01, 2025 11:17 am (HFpEF) heart failure with preserved eje ction fraction June 01, 2025 11:17am Atrial fibrillation June 01, 2025 11:17 am Chronic airway obstruction June 01 11:17am Coronary artery disease June 01, 2025 1 1:17am Hypertension June 01, 2025 11:17 am Morbid obesity June 01, 2025 11:17 am Sleep apnea June 01, 2025 11:17 am Acute confusion June 01, 2025 11:17 am Chronic anticoagulation July 01, 2025 10:30am Edema July 01, 2025 10: 30am WINIFRED (obstructive sleep apnea) June 10:30am (HFpEF) heart failure with preserved eje ction fraction July 01, 2025 10:30am Atrial fibrillation July 01, 2025 10: 30am Coronary artery disease July 01, 2025 10:30am Hypertension July 01, 2025 10: 30am Chief Complaint Admit Date INT LAB ORDERS April 21, 2025 3:46p m HYPOXIA April 30, 2025 12:56 pm 6 M FU April 30, 2025 2:23p m abnormal labs May 06, 2025 2:28 am HYPOKALEMIA/CONTRACTION ALKALOSIS April 262024 2:36am HYPOKALEMIA/CONTRACTION ALKALOSIS April 262024 2:51pm HYPOKALEMIA/CONTRACTION ALKALOSIS April 262024 1:33pm See clinical notes, S/P hospital. Rebecca dodd 2024 9:56am INT LAB ORDERS May 14, 2025 11:1 7am See clinical notes, S/P hospital. Rebecca canales 2024 11:17am Memory issues, Rule out CVA/TIA May 6:42pm 2nd Opinion July 01, 2025 10: 30am Reason for Visit Admit Date (HFpEF) heart failure with preserved eje ction [...] Acute hypokalemia May 06, 2025 2:36 am Weakness May 06, 2025 2:36 am Alkalosis May 06, 2025 2:36 am Chronic respiratory failure with hypoxia and hypercapnia May 06, 2025 2:36am COPD (chronic obstructive pulmonary dise ase) May 06, 2025 2:36am Metabolic alkalosis May 06, 2025 2:36 am Respiratory acidosis May 06, 2025 2:3 6am Fatigue May 14, 2025 9:56 am (HFpEF) heart failure with preserved eje ction fraction May 14, 2025 9:56am Atrial fibrillation May 14, 2025 9:56 am Chronic airway obstruction May 14 9:56am Coronary artery disease May 14, 2025 9:56am Hypertension May 14, 2025 9:56 am Morbid obesity May 14, 2025 9:56 am Sleep apnea May 14, 2025 9:56 am Acute confusion May 14, 2025 9:56 am Fatigue June 01, 2025 11:17 am (HFpEF) heart failure with preserved eje ction fraction June 01, 2025 11:17am Atrial fibrillation June 01, 2025 11:17 am Chronic airway obstruction June 01 11:17am Coronary artery disease June 01, 2025 1 1:17am Hypertension June 01, 2025 11:17 am Morbid obesity June 01, 2025 11:17 am Sleep apnea June 01, 2025 11:17 am Acute confusion June 01, 2025 11:17 am Chronic anticoagulation July 01, 2025 10:30am Edema July 01, 2025 10: 30am WINIFRED (obstructive sleep apnea) June 10:30am (HFpEF) heart failure with preserved eje ction fraction July 01, 2025 10:30am Atrial fibrillation July 01, 2025 10: 30am Coronary artery disease July 01, 2025 10:30am Hypertension July 01, 2025 10: 30am Chief Complaint Admit Date HYPOXIA April 30, 2025 12:56 pm 6 M FU April 30, 2025 2:23p m abnormal labs May 06, 2025 2:28 am HYPOKALEMIA/CONTRACTION ALKALOSIS April 262024 2:36am HYPOKALEMIA/CONTRACTION ALKALOSIS April 262024 2:51pm HYPOKALEMIA/CONTRACTION ALKALOSIS April 262024 1:33pm See clinical notes, S/ hospital. Rebecca dodd 2024 9:56am INT LAB ORDERS May 14, 2025 11:1 7am See clinical notes, /[facility]. Rebecca canales 2024 11:17am Memory issues, Rule out CVA/TIA May 6:42pm 2nd Opinion July 01, 2025 10: 30am VAGINAL ITCHING August 14, 2025 2:25pm Reason for Visit Admit Date (HFpEF) heart failure with preserved eje ction [...] Acute hypokalemia May 06, 2025 2:36 am Weakness May 06, 2025 2:36 am Alkalosis May 06, 2025 2:36 am Chronic respiratory failure with hypoxia and hypercapnia May 06, 2025 2:36am COPD (chronic obstructive pulmonary dise ase) May 06, 2025 2:36am Metabolic alkalosis May 06, 2025 2:36 am Respiratory acidosis May 06, 2025 2:3 6am Fatigue May 14, 2025 9:56 am (HFpEF) heart failure with preserved eje ction fraction May 14, 2025 9:56am Atrial fibrillation May 14, 2025 9:56 am Chronic airway obstruction May 14 9:56am Coronary artery disease May 14, 2025 9:56am Hypertension May 14, 2025 9:56 am Morbid obesity May 14, 2025 9:56 am Sleep apnea May 14, 2025 9:56 am Acute confusion May 14, 2025 9:56 am Fatigue June 01, 2025 11:17 am (HFpEF) heart failure with preserved eje ction fraction June 01, 2025 11:17am Atrial fibrillation June 01, 2025 11:17 am Chronic airway obstruction June 01 11:17am Coronary artery disease June 01, 2025 1 1:17am Hypertension June 01, 2025 11:17 am Morbid obesity June 01, 2025 11:17 am Sleep apnea June 01, 2025 11:17 am Acute confusion June 01, 2025 11:17 am Chronic anticoagulation July 01, 2025 10:30am Edema July 01, 2025 10: 30am WINIFRED (obstructive sleep apnea) June 10:30am (HFpEF) heart failure with preserved eje ction fraction July 01, 2025 10:30am Atrial fibrillation July 01, 2025 10: 30am Coronary artery disease July 01, 2025 10:30am Hypertension July 01, 2025 10: 30am Nocturia August 14, 2025 2:25pm Overactive bladder August 14, 2025 2:25pm Urge incontinence August 14, 2025 2:25pm Vaginal atrophy August 14, 2025 2:25pm Vaginal itching August 14, 2025 2:25pm Vulvar atrophy August 14, 2025 2:25pm Chief Complaint Admit Date abnormal labs May 06, 2025 2:28 am HYPOKALEMIA/CONTRACTION ALKALOSIS April 262024 2:36am HYPOKALEMIA/CONTRACTION ALKALOSIS April 262024 2:51pm HYPOKALEMIA/CONTRACTION ALKALOSIS April 262024 1:33pm See clinical notes, S/P hospital. Rebecca Jacques une 2024 9:56am INT LAB ORDERS May 14, 2025 11:1 7am See clinical notes, S/P hospital. Rebecca canales 2024 11:17am Memory issues, Rule out CVA/TIA May 6:42pm 2nd Opinion July 01, 2025 10: 30am VAGINAL ITCHING August 14, 2025 2:25pm SELF REFERRED HERNIA September 01, 2025 2 :03pm Reason for Visit Admit Date Acute confusion May 06, 2025 2:36 am Acute hypokalemia May 06, 2025 2:36 am Weakness May 06, 2025 2:36 am Alkalosis May 06, 2025 2:36 am Chronic respiratory failure with hypoxia and hypercapnia May 06, 2025 2:36am COPD (chronic obstructive pulmonary dise ase) May 06, 2025 2:36am Metabolic alkalosis May 06, 2025 2:36 am Respiratory acidosis May 06, 2025 2:3 6am Fatigue May 14, 2025 9:56 am (HFpEF) heart failure with preserved eje ction fraction May 14, 2025 9:56am Atrial fibrillation May 14, 2025 9:56 am Chronic airway obstruction May 14 9:56am Coronary artery disease May 14, 2025 9:56am Hypertension May 14, 2025 9:56 am Morbid obesity May 14, 2025 9:56 am Sleep apnea May 14, 2025 9:56 am Acute confusion May 14, 2025 9:56 am Fatigue June 01, 2025 11:17 am (HFpEF) heart failure with preserved eje ction fraction June 01, 2025 11:17am Atrial fibrillation June 01, 2025 11:17 am Chronic airway obstruction June 01 11:17am Coronary artery disease June 01, 2025 1 1:17am Hypertension June 01, 2025 11:17 am Morbid obesity June 01, 2025 11:17 am Sleep apnea June 01, 2025 11:17 am Acute confusion June 01, 2025 11:17 am Chronic anticoagulation July 01, 2025 10:30am Edema July 01, 2025 10: 30am WINIFRED (obstructive sleep apnea) June 10:30am (HFpEF) heart failure with preserved eje ction fraction July 01, 2025 10:30am Atrial fibrillation July 01, 2025 10: 30am Coronary artery disease July 01, 2025 10:30am Hypertension July 01, 2025 10: 30am Nocturia August 14, 2025 2:25pm Overactive bladder August 14, 2025 2:25pm Urge incontinence August 14, 2025 2:25pm Vaginal atrophy August 14, 2025 2:25pm Vaginal itching August 14, 2025 2:25pm Vulvar atrophy August 14, 2025 2:25pm Umbilical hernia September 01, 2025 2: 03pm Chief Complaint Admit Date See clinical notes, S/P hospital. Rebecca canales 2024 11:17am Memory issues, Rule out CVA/TIA May 6:42pm 2nd Opinion July 01, 2025 10: 30am VAGINAL ITCHING August 14, 2025 2:25pm SELF REFERRED HERNIA September 01, 2025 2 :03pm HX NICOTINE DEPENDENCE September 08 2:52pm [facility] MED F/U September 11, 2025 2 :28pm Chronic respiratory failure, unspecified whether w September 15, 2025 9:58am Reason for Visit Admit Date Fatigue June 01, 2025 11:17 am (HFpEF) heart failure with preserved eje ction fraction June 01, 2025 11:17am Atrial fibrillation June 01, 2025 11:17 am Chronic airway obstruction June 01 11:17am Coronary artery disease June 01, 2025 1 1:17am Hypertension June 01, 2025 11:17 am Morbid obesity June 01, 2025 11:17 am Sleep apnea June 01, 2025 11:17 am Acute confusion June 01, 2025 11:17 am Chronic anticoagulation July 01, 2025 10:30am Edema July 01, 2025 10: 30am WINIFRED (obstructive sleep apnea) June 10:30am (HFpEF) heart failure with preserved eje ction fraction July 01, 2025 10:30am Atrial fibrillation July 01, 2025 10: 30am Coronary artery disease July 01, 2025 10:30am Hypertension July 01, 2025 10: 30am Nocturia August 14, 2025 2:25pm Overactive bladder August 14, 2025 2:25pm Urge incontinence August 14, 2025 2:25pm Vaginal atrophy August 14, 2025 2:25pm Vaginal itching August 14, 2025 2:25pm Vulvar atrophy August 14, 2025 2:25pm Umbilical hernia September 01, 2025 2: 03pm Nocturia September 11, 2025 2 :28pm Overactive bladder September 11, 2025 2 :28pm Urge incontinence September 11, 2025 2 :28pm Vaginal atrophy September 11, 2025 2 :28pm Vaginal itching September 11, 2025 2 :28pm Vulvar atrophy September 11, 2025 2 :28pm Family History Relationship Condition Age at Onset [...] of colon Unknown son Drug overdose Unknown Relationship Condition Age at Onset Recorded Date/T buddy Not Specified Congestive heart failure Unknown Atrial fibrillation Unknown Cardiac disease Unknown mother Coronary artery disease Unknown Diabetes mellitus Unknown Colitis due to Clostridioides difficile U nknown Disorder of respiratory system Unknown Arthritis Unknown father Coronary artery disease Unknown Alcohol abuse Unknown Angina at rest Unknown Myocardial infarction 53 Hypertension Unknown High blood cholesterol Unknown sister Coronary artery disease Unknown brother Malignant neoplasm of colon Unknown Anxiety Unknown Malignant neoplasm Unknown Depression Unknown Mental disorder Unknown Psychiatric care Unknown son Drug overdose Unknown Advance Directives Advance Directive Response Recorded Date/ Time Living Will No December 02 12:53pm Power of Wax Ball Knock Out Worker No December 02, 021 12:53pm Advance Directive Response Recorded Date/ Time Living Will No December 02 11:53am Power of Wax Ball Knock Out Worker No December 02 021 11:53am Advance Directive Response Recorded Date/ Time Name of Medical Power of Wax Ball Knock Out Worker Juvenal Clark July 08, 2023 7:47pm Living Will Yes July 08 7:47pm Power of Wax Ball Knock Out Worker Yes July 08 023 7:47pm Advance Directive Response Recorded Date/ Time Advance Directives on File No 2022 2:32pm Living Will Yes November 14 023 2:47pm Power of Wax Ball Knock Out Worker Yes November 14, 2023 2:47pm Advance Directive Response Recorded Date/ Time Advance Directives on File No Dece2022 2:32pm Living Will Yes January 21 2:01pm Power of Wax Ball Knock Out Worker No January 21, 2024 2:01pm Advance Directive Response Recorded Date/ Time Advance Directives on File No Decem 2022 3:32pm Living Will Yes January 21 024 3:01pm Power of Wax Ball Knock Out Worker No January 21, 2024 3:01pm Advance Directive Response Recorded Date/ Time Living Will Yes January 21 3:01pm Power of Wax Ball Knock Out Worker No January 21, 2024 3:01pm Advance Directive Response Recorded Date/ Time Living Will Yes August 18, 2024 10:21am Do you have a Healthcare Power of Wax Ball Knock Out Worker? Yes August 18, 2024 10:21am Advance Directives Yes July 10:21am Advance Directive Response Recorded Date/ Time Living Will Yes August 18, 2024 10:21am Do you have a Healthcare Power of Wax Ball Knock Out Worker? Yes August 18, 2024 10:21am Do you have a Healthcare Power of Wax Ball Knock Out Worker? No March 19, 2025 10:53pm Advance Directives Yes July 10:21am Advance Directive Response Recorded Date/ Time Living Will Yes August 18, 2024 10:21am Do you have a Healthcare Power of Wax Ball Knock Out Worker? Yes August 18, 2024 10:21am Do you have a Healthcare Power of Wax Ball Knock Out Worker? No March 25, 2025 11:48am Do you have a Healthcare Power of Wax Ball Knock Out Worker? No March 19, 2025 10:53pm Advance Directives Yes July 10:21am Advance Directive Response Recorded Date/ Time Do you have a Healthcare Power of Wax Ball Knock Out Worker? No March 25, 2025 11:48am Do you have a Healthcare Power of Wax Ball Knock Out Worker? No March 19, 2025 10:53pm Advance Directives Yes July 10:21am Advance Directive Response Recorded Date/ Time Do you have a Healthcare Power of Wax Ball Knock Out Worker? No March 25, 2025 11:48am Do you have a Healthcare Power of Wax Ball Knock Out Worker? No March 19, 2025 10:53pm Do you have a Healthcare Power of Wax Ball Knock Out Worker? Yes April 05, 2025 8:31pm Advance Directives Yes July 10:21am Advance Directive Response Recorded Date/ Time Do you have a Healthcare Power of Wax Ball Knock Out Worker? No March 25, 2025 11:48am Do you have a Healthcare Power of Wax Ball Knock Out Worker? No March 19, 2025 10:53pm Do you have a Healthcare Power of Wax Ball Knock Out Worker? Yes April 06, 2025 12:21am Advance Directives Yes July 10:21am Advance Directive Response Recorded Date/ Time Do you have a Healthcare Power of Wax Ball Knock Out Worker? No March 25, 2025 11:48am Do you have a Healthcare Power of Wax Ball Knock Out Worker? No March 19, 2025 10:53pm Do you have a Healthcare Power of Wax Ball Knock Out Worker? Yes April 06, 2025 12:21am Do you have a Healthcare Power of Wax Ball Knock Out Worker? Yes May 06, 2025 12:03am Advance Directives Yes July 10:21am Advance Directive Response Recorded Date/ Time Do you have a Healthcare Power of Wax Ball Knock Out Worker? No March 25, 2025 11:48am Do you have a Healthcare Power of Wax Ball Knock Out Worker? No March 19, 2025 10:53pm Do you have a Healthcare Power of Wax Ball Knock Out Worker? Yes April 06, 2025 12:21am Do you have a Healthcare Power of Wax Ball Knock Out Worker? Yes May 06, 2025 1:41pm Advance Directives Yes July 10:21am Advance Directive Response Recorded Date/ Time Do you have a Healthcare Power of Wax Ball Knock Out Worker? Yes May 06, 2025 1:41pm Advance Directives Yes July 10:21am Advance Directive Response Recorded Date/ Time Advance Directives Yes July 10:21am Summary Purpose [...] any alcohol or drug abuse patient.[facility] the event this information is protected by the Federal Confidentiality of Alcohol and Drug Abuse Patient Records regulations: The Federal rules restrict any use of the information to criminally investigate or prosecute any alcohol or drug abuse patient.[facility] the event this information is protected by the Federal Confidentiality of Alcohol and Drug Abuse Patient Records regulations: The Federal rules restrict any use of the information to criminally investigate or prosecute any alcohol or drug abuse patient.[facility] the event this information is protected by the Federal Confidentiality of Alcohol and Drug Abuse Patient Records regulations: The Federal rules restrict any use of the information to criminally investigate or prosecute any alcohol or drug abuse patient.[facility] the event this information is protected by the Federal Confidentiality of Alcohol and Drug Abuse Patient Records regulations: The Federal rules restrict any use of the information to criminally investigate or prosecute any alcohol or drug abuse patient.[facility] the event this information is protected by the Federal Confidentiality of Alcohol and Drug Abuse Patient Records regulations: The Federal rules restrict any use of the information to criminally investigate or prosecute any alcohol or drug abuse patient.[facility] the event this information is protected by the Federal Confidentiality of Alcohol and Drug Abuse Patient Records regulations: The Federal rules restrict any use of the information to criminally investigate or prosecute any alcohol or drug abuse patient.[facility] the event this information is protected by the Federal Confidentiality of Alcohol and Drug Abuse Patient Records regulations: The Federal rules restrict any use of the information to criminally investigate or prosecute any alcohol or drug abuse patient.[facility] the event this information is protected by the Federal Confidentiality of Alcohol and Drug Abuse Patient Records regulations: The Federal rules restrict any use of the information to criminally investigate or prosecute any alcohol or drug abuse patient.[facility] the event this information is protected by the Federal Confidentiality of Alcohol and Drug Abuse Patient Records regulations: The Federal rules restrict any use of the information to criminally investigate or prosecute any alcohol or drug abuse patient.[facility] the event this information is protected by the Federal Confidentiality of Alcohol and Drug Abuse Patient Records regulations: The Federal rules restrict any use of the information to criminally investigate or prosecute any alcohol or drug abuse patient.[facility] Reason for Visit (unrecogniz ed section and content) Reason Comments Request Outside Medical Records Reason Comments Care Coordination Reason Comments Abstract Reason Comments Appointment Confirmation Reason Comments [employer] As[employer]er - Other Care Teams (unrecognized sec tion and content) 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 Start Date End Date Mitchell Brian V [address] [place] [address] Tectonophysicist Internal Medicine 06/06/22 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 Start Date End Date Mitchell Brian V [address] [place] [address] Tectonophysicist Internal Medicine 06/06/22 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 Dolorse Martin MD Attending Provider, Emergency Provider Active [...] 2024 End: December 25, 2024 Azael Ashton SEWER REPAIRER, SEWER REPAIRER-C Attending Provider Active Start: December 25, 2024 End: December 25, 2024 Azael Ashton SEWER REPAIRER, SEWER REPAIRER-C Referring Provider Active Start: December 25, 2024 [...] 2025 End: March 18, 2025 Becca Dillard SEWER REPAIRER, SEWER REPAIRER-C Attending Provider Active Start: March 18, 2025 End: March 18, 2025 Becca Dillard SEWER REPAIRER, SEWER REPAIRER-C Referring Provider Active Start: March 18, 2025 [...] March 20, 2025 Dr. Orlando Bolden , Other Provider Active Start: March 20, 2025 Dr. Chai Rider DO Attending Provider Active Start: March 20, 2025 Dr. Chai Rider , DO Other Provider Active S tart: March 20, 2025 Team Status: Active Member Role Status Dates Dr. Remus Ungur , DO Referring Provider Active S tart: [...] March 21, 2025 Dr. Chai Rider , Attending Provider Active Start: March 21, 2025 [...] , Other Provider Active S tart: March 24, 2025 Team Status: Inactive Member Role Status Dates Genia Chappell MD Primary Care Provider Active St art: March 25, 2025 End: March 25, 2025 Dr. Jose Armando Wood , Attending Provider Active Start : March 25, [...] Active Member Role Status Dates Genia Chappell , MD Primary Care Provider Active St [...] St art: April 03, 2025 Becca Dillard SEWER REPAIRER, SEWER REPAIRER-C Attending Provider Active Start: April 03, 2025 Becca Dillard SEWER REPAIRER, SEWER REPAIRER-C Referring Provider Active Start: April 03, 2025 [...] 2025 End: April 03, 2025 Becca Dillard SEWER REPAIRER, SEWER REPAIRER-C Attending Provider Active Start: April 03, 2025 End: April 03, 2025 Becca Dillard SEWER REPAIRER, SEWER REPAIRER-C Referring Provider Active Start: April 03, 2025 [...] Start: April 06, 2025 Dr. Orlando Bolden , Admit Provider Active Start: April 06, 2025 [...] Active Start: April 06, 2025 Dr. Orlando Boldne DO Other Provider Active Start: April 06, [...] Active Start: April 10, 2025 Dr. Orlando Boledn DO Other Provider Active Start: April 10, [...] 2025 End: April 21, 2025 Becca Dillard SEWER REPAIRER, SEWER REPAIRER-C Attending Provider Active Start: April 21, 2025 End: April 21, 2025 Becca Dillard SEWER REPAIRER, SEWER REPAIRER-C Referring Provider Active Start: April 21, 2025 [...] S tart: May 06, 2025 Team Status: Inactive Member Role Status Dates Genia Chappell MD Primary Care Provider Active St art: April 30, 2025 End: April 30, 2025 Dr. Mitchell Brian MD Attending Provider Active Start: April 30, 2025 End: April 30, 2025 Dr. Mitchell Brian MD [...] May 06, 2025 Dr. Vannesa Camejo DO Other Provider Active Start : May 06, 2025 Dr. Cindi Lizarraga MD Attending Provider Active Start: May 06, 2025 Team Status: Active Member Role Status Dates Genia Chappell MD Primary Care Provider Active St art: May 07, 2025 Dr. Que Greene DO Emergency Provider Active Start: May 07, 2025 Dr. Vannesa Camejo DO Admit Provider Active Start : May 07, 2025 Dr. Vannesa Camejo DO Other Provider Active Start : May 07, 2025 Dr. Cindi Lizarraga MD Attending Provider Active Start: May 07, 2025 Dr. Cindi Lizarraga MD Other Provider Active St art: May 07, 2025 Team Status: Inactive Member Role Status Dates Genia Chappell MD Primary Care Provider Active St art: May 08, 2025 End: May 08, 2025 Dr. Que Greene DO Emergency Provider Active Start: May 08, 2025 End: May 08, 2025 Dr. Vannesa Camejo DO Admit Provider Active Start : May 08, 2025 End: May 08, 2025 Dr. Vannesa Camejo DO Other Provider Active Start : May 08, 2025 End: May 08, 2025 Dr. Cindi Lizarraga MD Attending Provider Active Start: May 08, 2025 End: May 08, 2025 Team Status: Active Member Role Status Yonatan Chappell MD Primary Care Provider Active St art: May 08, 2025 Dr. Que Greene DO Emergency Provider Active Start: May 08, 2025 Dr. Vannesa Camejo DO Admit Provider Active Start : May 08, 2025 Dr. Vannesa Camejo DO Other Provider Active Start : May 08, 2025 Dr. Cindi Lizarraga MD Attending Provider Active Start: May 08, 2025 Dr. Cindi Lizarraga MD Other Provider Active St art: May 08, 2025 Team Status: Inactive Member Role Status Dates Genia Chappell MD Primary Care Provider Active St art: May 14, 2025 End: May 14, 2025 Genia Chappell MD Referring Provider Active Start : May 14, 2025 End: May 14, 2025 Husam Young SEWER REPAIRER, SEWER REPAIRER-C Attending Provider Active S tart: May 14, 2025 End: May 14, 2025 Team Status: Inactive Member Role Status Dates Genia Chappell MD Primary Care Provider Active St art: May 14, 2025 End: May 14, 2025 Husam Young SEWER REPAIRER, SEWER REPAIRER-C Attending Provider Active S tart: May 14, 2025 End: May 14, 2025 Husam Young SEWER REPAIRER, SEWER REPAIRER-C Referring Provider Active S tart: May 14, 2025 End: May 14, 2025 Team Status: Active Member Role/Relationship Status Dates Genia Chappell MD Primary Care Provider Active Team Status: Inactive Member Role/Relationship Status Dates Dr. Christy Perea MD Primary Care Provider Active Start: February 05, 2025 End: February 05, 2025 Dr. Christy Perea MD Attending Provider Active Start: February 05, 2025 End: February 05, 2025 Dr. Christy Perea MD Referring Provider Active Start: February 05, 2025 End: February 05, 2025 Team Status: Inactive Member Role/Relationship Status Dates Dr. Christy Perea MD Primary Care Provider Active Start: March 18, 2025 End: March 18, 2025 Becca Dillard SEWER REPAIRER, SEWER REPAIRER-C Attending Provider Active Start: March 18, 2025 End: March 18, 2025 Becca Dillard SEWER REPAIRER, SEWER REPAIRER-C Referring Provider Active Start: March 18, 2025 End: March 18, 2025 Team Status: Inactive Member Role/Relationship Status Dates Dr. Juan F Curran , [...] , DO Admit Provider Active Start: March 19, 2025 End: March 24, 2025 Dr. Orlando Bolden , DO Other Provider Active Start: March 19, 2025 End: March 24, 2025 Dr. Cindi Lizarraga MD Attending Provider Active Start: March 19, 2025 End: March 24, 2025 Dr. Chai Rider , DO Other Provider Active S tart: March 19, 2025 End: March 24, 2025 Team Status: Active Member Role/Relationship Status Dates Genia Chappell MD Primary Care Provider Active St art: March 20, 2025 Dr. Chandni Courtney MD Attending Provider Active Start: March 20, 2025 Team Status: Active Member Role/Relationship Status Dates Dr. Juan F Curran , DO Emergency Provider Active S tart: March 20, 2025 Genia Chappell MD Primary Care Provider Active St art: March 20, 2025 Dr. Orlando Bolden , DO Admit Provider Active Start: March 20, 2025 Dr. Orlando Bolden , DO Other Provider Active Start: March 20, 2025 Dr. Chai Rider , Attending Provider Active Start: March 20, 2025 Dr. Chai Rider , DO Other Provider Active S tart: March 20, 2025 Team Status: Active Member Role/Relationship Status Dates Dr. Juan F Curran , [...] March 21, 2025 Team Status: Active Member Role/Relationship Status Dates Dr. Juan F Curran , Emergency Provider Active S tart: March 22, [...] March 22, 2025 Team Status: Active Member Role/Relationship Status Dates Dr. Juan F Curran , [...] March 23, 2025 Team Status: Active Member Role/Relationship Status Dates Dr. Juan F Curran DO [...] March 24, 2025 Team Status: Inactive Member Role/Relationship Status Dates Genia Chappell MD Primary Care Provider Active St art: March 25, 2025 End: March 25, 2025 Dr. Jose Armando Wood , Attending Provider Active Start : March 25, 2025 End: March 25, 2025 Dr. Jose Armando Wood DO Emergency Provider Active Start : March 25, 2025 End: March 25, 2025 Team Status: Inactive Member Role/Relationship Status Yonatan Chappell MD Primary Care Provider Active St art: March 30, 2025 End: March 30, 2025 Genia Chappell MD Attending Provider Active Start : March 30, 2025 End: March 30, 2025 Dr. Mitchell Brian MD Referring Provider Active Start: March 30, 2025 End: March 30, 2025 Team Status: Inactive Member Role/Relationship Status Yonatan Chappell MD Primary Care Provider Active St art: March 31, 2025 End: March 31, 2025 Genia Chappell MD Attending Provider Active Start : March 31, 2025 End: March 31, 2025 Genia Chappell MD Referring Provider Active Start : March 31, 2025 End: March 31, 2025 Team Status: Inactive Member Role/Relationship Status Yonatan Chappell MD Primary Care Provider Active St art: April 03, 2025 End: April 03, 2025 Becca Dillard SEWER REPAIRER, SEWER REPAIRER-C Attending Provider Active Start: April 03, 2025 End: April 03, 2025 Becca Dillard SEWER REPAIRER, SEWER REPAIRER-C Referring Provider Active Start: April 03, 2025 End: April 03, 2025 Team Status: Inactive Member Role/Relationship Status Yonatan Chappell MD Primary Care Provider [...] April 10, 2025 Team Status: Active Member Role/Relationship Status Yonatan Chappell MD Primary Care Provider [...] April 06, 2025 Team Status: Active Member Role/Relationship Status Yonatan Chappell MD Primary Care Provider [...] April 07, 2025 Team Status: Active Member Role/Relationship Status Yonatan Chappell MD Primary Care Provider [...] April 08, 2025 Team Status: Active Member Role/Relationship Status Yonatan Chappell MD Primary Care Provider Active St art: April 09, 2025 Dr. Adni Ortiz MD Emergency Provider Active Start: April [...] April 09, 2025 Team Status: Active Member Role/Relationship Status Dates Genia Chappell MD Primary Care [...] April 10, 2025 Team Status: Inactive Member Role/Relationship Status Dates Genia Chappell MD Primary Care Provider Active St art: April 21, 2025 End: April 21, 2025 Becca Dillard SEWER REPAIRER, SEWER REPAIRER-C Attending Provider Active Start: April 21, 2025 End: April 21, 2025 Becca Dillard SEWER REPAIRER, SEWER REPAIRER-C Referring Provider Active Start: April 21, 2025 End: April 21, 2025 Team Status: Inactive Member Role/Relationship Status Dates Genia Chappell MD Primary Care Provider Active St art: April 30, 2025 End: April 30, 2025 Dr. Mitchell Brian MD Attending Provider Active Start: April 30, 2025 End: April 30, 2025 Dr. Mitchell Brian MD Referring Provider Active Start: April 30, 2025 End: April 30, 2025 Team Status: Inactive Member Role/Relationship Status Dates Dr. Christy Perea MD Referring Provider Active Start: April 30, 2025 End: April 30, 2025 Dr. Chandni Courtney MD Attending Provider Active Start: April 30, 2025 End: April 30, 2025 Genia Chappell MD Primary Care Provider Active St art: April 30, 2025 End: April 30, 2025 Team Status: Active Member Role/Relationship Status Dates Genia Chappell MD Primary Care Provider Active St art: May 06, 2025 Dr. Que Greene DO Emergency Provider Active Start: May 06, 2025 Dr. Vannesa Camejo DO Attending Provider Active S tart: May 06, 2025 Team Status: Active Member Role/Relationship Status Dates Genia Chpapell MD Primary Care Provider Active St art: May 07, 2025 Dr. Que Greene DO Emergency Provider Active Start: May 07, 2025 Dr. Vannesa Camejo DO Admit Provider Active Start : May 07, 2025 Dr. Vannesa Camejo DO Other Provider Active Start : May 07, 2025 Dr. Cindi Lizarraga MD Attending Provider Active Start: May 07, 2025 Dr. Cindi Lizarraga MD Other Provider Active St art: May 07, 2025 Team Status: Inactive Member Role/Relationship Status Dates Genia Chappell MD Primary Care Provider Active St art: May 08, 2025 End: May 08, 2025 Dr. Que Greene DO Emergency Provider Active Start: May 08, 2025 End: May 08, 2025 Dr. Vannesa Camejo DO Admit Provider Active Start : May 08, 2025 End: May 08, 2025 Dr. Vannesa Camejo DO Other Provider Active Start : May 08, 2025 End: May 08, 2025 Dr. Cindi Lizarraga MD Attending Provider Active Start: May 08, 2025 End: May 08, 2025 Team Status: Active Member Role/Relationship Status Dates Genia Chappell MD Primary Care Provider Active St art: May 08, 2025 Dr. Que Greene DO Emergency Provider Active Start: May 08, 2025 Dr. Vannesa Camejo DO Admit Provider Active Start : May 08, 2025 Dr. Vannesa Camejo DO Other Provider Active Start : May 08, 2025 Dr. Cindi Lizarraga MD Attending Provider Active Start: May 08, 2025 Dr. Cindi Lizarraga MD Other Provider Active St art: May 08, 2025 Team Status: Inactive Member Role/Relationship Status Dates Genia Chappell MD Primary Care Provider Active St art: May 14, 2025 End: May 14, 2025 Genia Chappell MD Referring Provider Active Start : May 14, 2025 End: May 14, 2025 Husam Young SEWER REPAIRER, SEWER REPAIRER-C Attending Provider Active S tart: May 14, 2025 End: May 14, 2025 Team Status: Inactive Member Role/Relationship Status Dates Genia Chappell MD Primary Care Provider Active St art: May 14, 2025 End: May 14, 2025 Husam Young SEWER REPAIRER, SEWER REPAIRER-C Attending Provider Active S tart: May 14, 2025 End: May 14, 2025 Husam Young SEWER REPAIRER, SEWER REPAIRER-C Referring Provider Active S tart: May 14, 2025 End: May 14, 2025 Team Status: Inactive Member Role/Relationship Status Dates Genia Chappell MD Primary Care Provider Active St art: June 01, 2025 End: June 01, 2025 Genia Chappell MD Referring Provider Active Start : June 01, 2025 End: June 01, 2025 Husam Young SEWER REPAIRER, SEWER REPAIRER-C Attending Provider Active S tart: June 01, 2025 End: June 01, 2025 Team Status: Inactive Member Role/Relationship Status Dates Dr. Christy Perea MD Primary Care Provider Active Start: March 18, 2025 End: March 18, 2025 Becca Dillard SEWER REPAIRER, SEWER REPAIRER-C Attending Provider Active Start: March 18, 2025 End: March 18, 2025 Becca Dillard SEWER REPAIRER, SEWER REPAIRER-C Referring Provider Active Start: March 18, 2025 End: March 18, 2025 Team Status: Inactive Member Role/Relationship Status Dates Dr. Juan F Curran DO Referring Provider Active S tart: March 19, 2025 End: March 24, 2025 Dr. Juan F Curran DO Emergency Provider Active S tart: March 19, 2025 End: March 24, 2025 Genia Chappell MD Primary Care Provider Active St art: March 19, 2025 End: March 24, 2025 Dr. Orlando Bolden , DO Admit Provider Active Start: March 19, 2025 End: March 24, 2025 Dr. Orlando Bolden , DO Other Provider Active Start: March 19, 2025 End: March 24, 2025 Dr. Cindi Lizarraga MD Attending Provider Active Start: March 19, 2025 End: March 24, 2025 Dr. Chai Rider , DO Other Provider Active S tart: March 19, 2025 End: March 24, 2025 Team Status: Active Member Role/Relationship Status Dates Genia Chappell MD Primary Care Provider Active St art: March 20, 2025 Dr. Chandni Courtney MD Attending Provider Active Start: March 20, 2025 Team Status: Active Member Role/Relationship Status Dates Dr. Juan F Curran , [...] March 20, 2025 Team Status: Active Member Role/Relationship Status Dates Dr. Juan F Curran , [...] March 21, 2025 Team Status: Active Member Role/Relationship Status Dates Dr. Juan F Curran , [...] March 22, 2025 Team Status: Active Member Role/Relationship Status Dates Dr. Juan F Curran DO [...] March 23, 2025 Dr. Chai Rider , Other Provider Active S tart: March 23, 2025 Team Status: Active Member Role/Relationship Status Dates Dr. Juan F Curran DO [...] Active St art: March 24, 2025 Dr. Chia Rider , Other Provider Active S tart: March 24, 2025 Team Status: Inactive Member Role/Relationship Status Dates Genia Chappell MD Primary Care Provider Active St art: March 25, 2025 End: March 25, 2025 Dr. Jose Armando Wood DO Attending Provider Active Start : March 25, 2025 End: March 25, 2025 Dr. Jose Armando Wood DO Emergency Provider Active Start : March 25, 2025 End: March 25, 2025 Team Status: Inactive Member Role/Relationship Status Yonatan Chappell MD Primary Care Provider Active St art: March 30, 2025 End: March 30, 2025 Genia Chappell MD Attending Provider Active Start : March 30, 2025 End: March 30, 2025 Dr. Mitchell Brian MD Referring Provider Active Start: March 30, 2025 End: March 30, 2025 Team Status: Inactive Member Role/Relationship Status Yonatan Chappell MD Primary Care Provider Active St art: March 31, 2025 End: March 31, 2025 Genia Chappell MD Attending Provider Active Start : March 31, 2025 End: March 31, 2025 Genia Chappell MD Referring Provider Active Start : March 31, 2025 End: March 31, 2025 Team Status: Inactive Member Role/Relationship Status Yonatan Chappell MD Primary Care Provider Active St art: April 03, 2025 End: April 03, 2025 Becca Dillard SEWER REPAIRER, SEWER REPAIRER-C Attending Provider Active Start: April 03, 2025 End: April 03, 2025 Becca Dillard SEWER REPAIRER, SEWER REPAIRER-C Referring Provider Active Start: April 03, 2025 End: April 03, 2025 Team Status: Inactive Member Role/Relationship Status Yonatan Chappell MD Primary Care Provider [...] April 10, 2025 Team Status: Active Member Role/Relationship Status Yonatan Chappell MD Primary Care Provider Active St art: April 06, 2025 Dr. Andi Ortiz MD Emergency Provider Active Start: April 06, 2025 Dr. Orlando Bolden DO Admit Provider Active Start: April 06, 2025 Dr. Orlando Bolden DO Other Provider Active Start: April 06, 2025 Dr. Ken Viyera MD Attending Provider Active Start: April 06, 2025 Dr. Ken Vieyra MD Other Provider Active Sta rt: April 06, 2025 Team Status: Active Member Role/Relationship Status Yonatan Chappell MD Primary Care Provider [...] April 07, 2025 Team Status: Active Member Role/Relationship Status Yonatan Chappell MD Primary Care Provider [...] April 08, 2025 Team Status: Active Member Role/Relationship Status Yonatan Chappell MD Primary Care Provider [...] April 09, 2025 Team Status: Active Member Role/Relationship Status Yonatan Chappell MD Primary Care Provider [...] April 10, 2025 Team Status: Inactive Member Role/Relationship Status Dates Genia Chappell MD Primary Care Provider Active St art: April 21, 2025 End: April 21, 2025 Becca Dillard SEWER REPAIRER, SEWER REPAIRER-C Attending Provider Active Start: April 21, 2025 End: April 21, 2025 Becca Dillard SEWER REPAIRER, SEWER REPAIRER-C Referring Provider Active Start: April 21, 2025 End: April 21, 2025 Team Status: Inactive Member Role/Relationship Status Dates Genia Chappell MD Primary Care Provider Active St art: April 30, 2025 End: April 30, 2025 Dr. Mitchell Brian MD Attending Provider Active Start: April 30, 2025 End: April 30, 2025 Dr. Mitchell Brian MD Referring Provider Active Start: April 30, 2025 End: April 30, 2025 Team Status: Inactive Member Role/Relationship Status Dates Dr. Christy Perea MD Referring Provider Active Start: April 30, 2025 End: April 30, 2025 Dr. Chandni Courtney MD Attending Provider Active Start: April 30, 2025 End: April 30, 2025 Genia Chappell MD Primary Care Provider Active St art: April 30, 2025 End: April 30, 2025 Team Status: Active Member Role/Relationship Status Dates Genia Chappell MD Primary Care Provider Active St art: May 06, 2025 Dr. Que Greene DO Emergency Provider Active Start: May 06, 2025 Dr. Vannesa Camejo DO Attending Provider Active S tart: May 06, 2025 Team Status: Active Member Role/Relationship Status Dates Genia Chappell MD Primary Care Provider Active St art: May 07, 2025 Dr. Que Greene DO Emergency Provider Active Start: May 07, 2025 Dr. Vannesa Camejo DO Admit Provider Active Start : May 07, 2025 Dr. Vannesa Camejo DO Other Provider Active Start : May 07, 2025 Dr. Cindi Lizarraga MD Attending Provider Active Start: May 07, 2025 Dr. Cindi Lizarraga MD Other Provider Active St art: May 07, 2025 Team Status: Inactive Member Role/Relationship Status Dates Genia Chappell MD Primary Care Provider Active St art: May 08, 2025 End: May 08, 2025 Dr. Que Greene DO Emergency Provider Active Start: May 08, 2025 End: May 08, 2025 Dr. Vannesa Camejo DO Admit Provider Active Start : May 08, 2025 End: May 08, 2025 Dr. Vannesa Camejo DO Other Provider Active Start : May 08, 2025 End: May 08, 2025 Dr. Cindi Lizarraga MD Attending Provider Active Start: May 08, 2025 End: May 08, 2025 Team Status: Active Member Role/Relationship Status Dates Genia Chappell MD Primary Care Provider Active St art: May 08, 2025 Dr. Que Greene DO Emergency Provider Active Start: May 08, 2025 Dr. Vannesa Camejo DO Admit Provider Active Start : May 08, 2025 Dr. Vannesa Camejo DO Other Provider Active Start : May 08, 2025 Dr. Cindi Lizarraga MD Attending Provider Active Start: May 08, 2025 Dr. Cindi Lizarraga MD Other Provider Active St art: May 08, 2025 Team Status: Inactive Member Role/Relationship Status Yonatan Chappell MD Primary Care Provider Active St art: May 14, 2025 End: May 14, 2025 Genia Chappell MD Referring Provider Active Start : May 14, 2025 End: May 14, 2025 Husam Young SEWER REPAIRER, SEWER REPAIRER-C Attending Provider Active S tart: May 14, 2025 End: May 14, 2025 Team Status: Inactive Member Role/Relationship Status Yonatan Chappell MD Primary Care Provider Active St art: May 14, 2025 End: May 14, 2025 Husam Young SEWER REPAIRER, SEWER REPAIRER-C Attending Provider Active S tart: May 14, 2025 End: May 14, 2025 Husam Young SEWER REPAIRER, SEWER REPAIRER-C Referring Provider Active S tart: May 14, 2025 End: May 14, 2025 Team Status: Inactive Member Role/Relationship Status Yonatan Chappell MD Primary Care Provider Active St art: June 01, 2025 End: June 01, 2025 Genia Chappell MD Referring Provider Active Start : June 01, 2025 End: June 01, 2025 Husam Young SEWER REPAIRER, SEWER REPAIRER-C Attending Provider Active S tart: June 01, 2025 End: June 01, 2025 Team Status: Inactive Member Role/Relationship Status Yonatan Chappell MD Primary Care Provider Active St art: June 03, 2025 End: June 03, 2025 Husam Young SEWER REPAIRER, SEWER REPAIRER-C Attending Provider Active S tart: June 03, 2025 End: June 03, 2025 Husam Young SEWER REPAIRER, SEWER REPAIRER-C Referring Provider Active S tart: June 03, 2025 End: June 03, 2025 Team Status: Inactive Member Role/Relationship Status Yonatan Chappell MD Primary Care Provider Active St art: July 01, 2025 End: July 01, 2025 Genia Chappell MD Referring Provider Active Start : July 01, 2025 End: July 01, 2025 Dr. Yasmani Bruno MD Attending Provider Active Start: July 01, 2025 End: July 01, 2025 Team Status: Inactive Member Role/Relationship Status Yonatan Chappell MD Primary Care Provider Active St art: April 21, 2025 End: April 21, 2025 Becca Dillard SEWER REPAIRER, SEWER REPAIRER-C Attending Provider Active Start: April 21, 2025 End: April 21, 2025 Becca Dillard SEWER REPAIRER, SEWER REPAIRER-C Referring Provider Active Start: April 21, 2025 End: April 21, 2025 Team Status: Inactive Member Role/Relationship Status Yonatan Chappell MD Primary Care Provider Active St art: April 30, 2025 End: April 30, 2025 Dr. Mitchell Brian MD Attending Provider Active Start: April 30, 2025 End: April 30, 2025 Dr. Mitchell Brian MD Referring Provider Active Start: April 30, 2025 End: April 30, 2025 Team Status: Inactive Member Role/Relationship Status Dates Dr. Christy Perea MD Referring Provider Active Start: April 30, 2025 End: April 30, 2025 Dr. Chandni Courtney MD Attending Provider Active Start: April 30, 2025 End: April 30, 2025 Genia Chappell MD Primary Care Provider Active St art: April 30, 2025 End: April 30, 2025 Team Status: Active Member Role/Relationship Status Dates Genia Chappell MD Primary Care Provider Active St art: May 06, 2025 Dr. Que Greene DO Emergency Provider Active Start: May 06, 2025 Dr. Vannesa Camejo DO Attending Provider Active S tart: May 06, 2025 Team Status: Inactive Member Role/Relationship Status Dates Genia Chappell MD Primary Care Provider Active St art: May 06, 2025 End: May 08, 2025 Dr. Que Greene DO Emergency Provider Active Start: May 06, 2025 End: May 08, 2025 Dr. Vannesa Camejo DO Admit Provider Active Start : May 06, 2025 End: May 08, 2025 Dr. Vannesa Camejo DO Other Provider Active Start : May 06, 2025 End: May 08, 2025 Dr. Cindi Lizarraga MD Attending Provider Active Start: May 06, 2025 End: May 08, 2025 Team Status: Active Member Role/Relationship Status Dates Genia Chappell MD Primary Care Provider Active St art: May 07, 2025 Dr. Que Greene DO Emergency Provider Active Start: May 07, 2025 Dr. Vannesa Camejo DO Admit Provider Active Start : May 07, 2025 Dr. Vannesa Camejo DO Other Provider Active Start : May 07, 2025 Dr. Cindi Lizarraga MD Attending Provider Active Start: May 07, 2025 Dr. Cindi Lizarraga MD Other Provider Active St art: May 07, 2025 Team Status: Active Member Role/Relationship Status Dates Genia Chappell MD Primary Care Provider Active St art: May 08, 2025 Dr. Que Greene DO Emergency Provider Active Start: May 08, 2025 Dr. Vannesa Camejo DO Admit Provider Active Start : May 08, 2025 Dr. Vannesa Camejo DO Other Provider Active Start : May 08, 2025 Dr. Cindi Lizarraga MD Attending Provider Active Start: May 08, 2025 Dr. Cindi Lizarraga MD Other Provider Active St art: May 08, 2025 Team Status: Inactive Member Role/Relationship Status Yonatan Chappell MD Primary Care Provider Active St art: May 14, 2025 End: May 14, 2025 Genia Chappell MD Referring Provider Active Start : May 14, 2025 End: May 14, 2025 Husam Young SEWER REPAIRER, SEWER REPAIRER-C Attending Provider Active S tart: May 14, 2025 End: May 14, 2025 Team Status: Inactive Member Role/Relationship Status Yonatan Chappell MD Primary Care Provider Active St art: May 14, 2025 End: May 14, 2025 Husam Young SEWER REPAIRER, SEWER REPAIRER-C Attending Provider Active S tart: May 14, 2025 End: May 14, 2025 Husam Young SEWER REPAIRER, SEWER REPAIRER-C Referring Provider Active S tart: May 14, 2025 End: May 14, 2025 Team Status: Inactive Member Role/Relationship Status Yonatan Chappell MD Primary Care Provider Active St art: June 01, 2025 End: June 01, 2025 Genia Chappell MD Referring Provider Active Start : June 01, 2025 End: June 01, 2025 Husam Young SEWER REPAIRER, SEWER REPAIRER-C Attending Provider Active S tart: June 01, 2025 End: June 01, 2025 Team Status: Inactive Member Role/Relationship Status Yonatan Chappell MD Primary Care Provider Active St art: June 03, 2025 End: June 03, 2025 Husam Young SEWER REPAIRER, SEWER REPAIRER-C Attending Provider Active S tart: June 03, 2025 End: June 03, 2025 Husam Young SEWER REPAIRER, SEWER REPAIRER-C Referring Provider Active S tart: June 03, 2025 End: June 03, 2025 Team Status: Inactive Member Role/Relationship Status Yonatan Chappell MD Primary Care Provider Active St art: July 01, 2025 End: July 01, 2025 Genia Chappell MD Referring Provider Active Start : July 01, 2025 End: July 01, 2025 Dr. Yasmani Bruno MD Attending Provider Active Start: July 01, 2025 End: July 01, 2025 Team Status: Inactive Member Role/Relationship Status Dates Genia Chappell MD Primary Care Provider Active St art: August 03, 2025 End: August 03, 2025 Genia Chappell MD Attending Provider Active Start : August 03, 2025 End: August 03, 2025 Team Status: Active Member Role/Relationship Status Yonatan Chappell MD Primary care physician Active Team Status: Inactive Member Role/Relationship Status Dates Genia Chappell MD Primary care physician Active S tart: April 30, 2025 End: April 30, 2025 Dr. Mitchell Brian MD Attending physician Active Start: April 30, 2025 End: April 30, 2025 Dr. Mitchell Brian MD Referring Provider Active Start: April 30, 2025 End: April 30, 2025 Team Status: Inactive Member Role/Relationship Status Dates Dr. Christy Perea MD Referring Provider Active Start: April 30, 2025 End: April 30, 2025 Dr. Chandni Courtney MD Attending physician Active Start: April 30, 2025 End: April 30, 2025 Genia Chappell MD Primary care physician Active S tart: April 30, 2025 End: April 30, 2025 Team Status: Active Member Role/Relationship Status Dates Genia Chappell MD Primary care physician Active S tart: May 06, 2025 Dr. Que Greene DO Emergency Department Physician Active Start: May 06, 2025 Dr. Vannesa Camejo DO Attending physician Active Start: May 06, 2025 Team Status: Inactive Member Role/Relationship Status Dates Genia Chappell MD Primary care physician Active S tart: May 06, 2025 End: May 08, 2025 Dr. Que Greene DO Emergency Department Physician Active Start: May 06, 2025 End: May 08, 2025 Dr. Vannesa Camejo DO Admitting physician Active Start: May 06, 2025 End: May 08, 2025 Dr. Vannesa Camejo DO Nurse Practitioner Active S tart: May 06, 2025 End: May 08, 2025 Dr. Cindi Lizarraga MD Attending physician Active Start: May 06, 2025 End: May 08, 2025 Team Status: Active Member Role/Relationship Status Dates Genia Chappell MD Primary care physician Active S tart: May 07, 2025 Dr. Que Greene DO Emergency Department Physician Active Start: May 07, 2025 Dr. Vannesa Camejo DO Admitting physician Active Start: May 07, 2025 Dr. Vannesa Camejo DO Nurse Practitioner Active S tart: May 07, 2025 Dr. Cindi Lizarraga MD Attending physician Active Start: May 07, 2025 Dr. Cindi Lizarraga MD Nurse Practitioner Active Start: May 07, 2025 Team Status: Active Member Role/Relationship Status Dates Genia Chappell MD Primary care physician Active S tart: May 08, 2025 Dr. Que Greene DO Emergency Department Physician Active Start: May 08, 2025 Dr. Vannesa Camejo DO Admitting physician Active Start: May 08, 2025 Dr. Vannesa Camejo DO Nurse Practitioner Active S tart: May 08, 2025 Dr. Cindi Lizarraga MD Attending physician Active Start: May 08, 2025 Dr. Cindi Lizarraga MD Nurse Practitioner Active Start: May 08, 2025 Team Status: Inactive Member Role/Relationship Status Dates Genia Chappell MD Primary care physician Active S tart: May 14, 2025 End: May 14, 2025 Genia Chappell MD Referring Provider Active Start : May 14, 2025 End: May 14, 2025 Husam Young SEWER REPAIRER, SEWER REPAIRER-C Attending physician Active Start: May 14, 2025 End: May 14, 2025 Team Status: Inactive Member Role/Relationship Status Dates Genia Chappell MD Primary care physician Active S tart: May 14, 2025 End: May 14, 2025 Husam Young SEWER REPAIRER, SEWER REPAIRER-C Attending physician Active Start: May 14, 2025 End: May 14, 2025 Husam Young SEWER REPAIRER, SEWER REPAIRER-C Referring Provider Active S tart: May 14, 2025 End: May 14, 2025 Team Status: Inactive Member Role/Relationship Status Dates Genia Chappell MD Primary care physician Active S tart: June 01, 2025 End: June 01, 2025 Genia Chappell MD Referring Provider Active Start : June 01, 2025 End: June 01, 2025 Husam Young SEWER REPAIRER, SEWER REPAIRER-C Attending physician Active Start: June 01, 2025 End: June 01, 2025 Team Status: Inactive Member Role/Relationship Status Yonatan Chappell MD Primary care physician Active S tart: June 03, 2025 End: June 03, 2025 Husam Young SEWER REPAIRER, SEWER REPAIRER-C Attending physician Active Start: June 03, 2025 End: June 03, 2025 Husam Young SEWER REPAIRER, SEWER REPAIRER-C Referring Provider Active S tart: June 03, 2025 End: June 03, 2025 Team Status: Inactive Member Role/Relationship Status Yonatan Chappell MD Primary care physician Active S tart: July 01, 2025 End: July 01, 2025 Genia Chappell MD Referring Provider Active Start : July 01, 2025 End: July 01, 2025 Dr. Yasmani Bruno MD Attending physician Active Start: July 01, 2025 End: July 01, 2025 Team Status: Inactive Member Role/Relationship Status Yonatan Chappell MD Primary care physician Active S tart: August 03, 2025 End: August 03, 2025 Genia Chappell MD Attending physician Active Star t: August 03, 2025 End: August 03, 2025 Team Status: Inactive Member Role/Relationship Status Yonatan Chappell MD Primary care physician Active S tart: August 14, 2025 End: August 14, 2025 Genia Chappell MD Referring Provider Active Start : August 14, 2025 End: August 14, 2025 Dr. Patsy Aguirre MD Attending physician Active Start: August 14, 2025 End: August 14, 2025 Team Status: Active Member Role/Relationship Status Yonatan Chappell MD Primary care physician Active S tart: May 06, 2025 Dr. Que Greene DO Emergency Department Physician Active Start: May 06, 2025 Dr. Vannesa Camejo DO Attending physician Active Start: May 06, 2025 Team Status: Inactive Member Role/Relationship Status Yonatan Chappell MD Primary care physician Active S tart: May 06, 2025 End: May 08, 2025 Dr. Que Greene DO Emergency Department Physician Active Start: May 06, 2025 End: May 08, 2025 Dr. Vannesa Camejo , Admitting physician Active Start: May 06, 2025 End: May 08, 2025 Dr. Vannesa Camejo , Nurse Practitioner Active S tart: May 06, 2025 End: May 08, 2025 Dr. Cindi Lizarraga MD Attending physician Active Start: May 06, 2025 End: May 08, 2025 Team Status: Active Member Role/Relationship Status Dates Genia Chappell MD Primary care physician Active S tart: May 07, 2025 Dr. Que Greene DO Emergency Department Physician Active Start: May 07, 2025 Dr. Vannesa Camejo DO Admitting physician Active Start: May 07, 2025 Dr. Vannesa Camejo , Nurse Practitioner Active S tart: May 07, 2025 Dr. Cindi Lizarraga MD Attending physician Active Start: May 07, 2025 Dr. iCndi Lizarraga MD Nurse Practitioner Active Start: May 07, 2025 Team Status: Active Member Role/Relationship Status Dates Genia Chappell MD Primary care physician Active S tart: May 08, 2025 Dr. Que Greene DO Emergency Department Physician Active Start: May 08, 2025 Dr. Vannesa Camejo , Admitting physician Active Start: May 08, 2025 Dr. Vannesa Camejo , Nurse Practitioner Active S tart: May 08, 2025 Dr. Cindi Lizarraga MD Attending physician Active Start: May 08, 2025 Dr. Cindi Lizarraga MD Nurse Practitioner Active Start: May 08, 2025 Team Status: Inactive Member Role/Relationship Status Dates Genia Chappell MD Primary care physician Active S tart: May 14, 2025 End: May 14, 2025 Genia Chappell MD Referring Provider Active Start : May 14, 2025 End: May 14, 2025 Husam Young SEWER REPAIRER, SEWER REPAIRER-C Attending physician Active Start: May 14, 2025 End: May 14, 2025 Team Status: Inactive Member Role/Relationship Status Dates Genia Chappell MD Primary care physician Active S tart: May 14, 2025 End: May 14, 2025 Husam Young SEWER REPAIRER, SEWER REPAIRER-C Attending physician Active Start: May 14, 2025 End: May 14, 2025 Husam Young SEWER REPAIRER, SEWER REPAIRER-C Referring Provider Active S tart: May 14, 2025 End: May 14, 2025 Team Status: Inactive Member Role/Relationship Status Dates Arion Dona , MD Primary care physician Active S tart: June 01, 2025 End: June 01, 2025 Genia Chappell MD Referring Provider Active Start : June 01, 2025 End: June 01, 2025 Husam Young SEWER REPAIRER, SEWER REPAIRER-C Attending physician Active Start: June 01, 2025 End: June 01, 2025 Team Status: Inactive Member Role/Relationship Status Yonatan Chappell MD Primary care physician Active S tart: June 03, 2025 End: June 03, 2025 Husam Young SEWER REPAIRER, SEWER REPAIRER-C Attending physician Active Start: June 03, 2025 End: June 03, 2025 Husam Young SEWER REPAIRER, SEWER REPAIRER-C Referring Provider Active S tart: June 03, 2025 End: June 03, 2025 Team Status: Inactive Member Role/Relationship Status Yonatan Chappell MD Primary care physician Active S tart: July 01, 2025 End: July 01, 2025 Genia Chappell MD Referring Provider Active Start : July 01, 2025 End: July 01, 2025 Dr. Yasmani Bruno MD Attending physician Active Start: July 01, 2025 End: July 01, 2025 Team Status: Inactive Member Role/Relationship Status Yonatan Chappell MD Primary care physician Active S tart: August 03, 2025 End: August 03, 2025 Genia Chappell MD Attending physician Active Star t: August 03, 2025 End: August 03, 2025 Team Status: Inactive Member Role/Relationship Status Yonatan Chappell MD Primary care physician Active S tart: August 14, 2025 End: August 14, 2025 Genia Chappell MD Referring Provider Active Start : August 14, 2025 End: August 14, 2025 Dr. Patsy Aguirre MD Attending physician Active Start: August 14, 2025 End: August 14, 2025 Team Status: Inactive Member Role/Relationship Status Yonatan Chappell MD Primary care physician Active S tart: September 01, 2025 End: September 01, 2025 Genia Chappell MD Referring Provider Active Start : September 01, 2025 End: September 01, 2025 Dr. Oscar Springer MD Attending physician Active Start: September 01, 2025 End: September 01, 2025 Team Status: Inactive Member Role/Relationship Status Yonatan Chappell MD Primary care physician Active S tart: June 01, 2025 End: June 01, 2025 Genia Chappell MD Referring Provider Active Start : June 01, 2025 End: June 01, 2025 Husam Young SEWER REPAIRER, SEWER REPAIRER-C Attending physician Active Start: June 01, 2025 End: June 01, 2025 Team Status: Inactive Member Role/Relationship Status Yonatan Chappell MD Primary care physician Active S tart: June 03, 2025 End: June 03, 2025 Husam Young SEWER REPAIRER, SEWER REPAIRER-C Attending physician Active Start: June 03, 2025 End: June 03, 2025 Husam Young SEWER REPAIRER, SEWER REPAIRER-C Referring Provider Active S tart: June 03, 2025 End: June 03, 2025 Team Status: Inactive Member Role/Relationship Status Yonatan Chappell MD Primary care physician Active S tart: July 01, 2025 End: July 01, 2025 Genia Chappell MD Referring Provider Active Start : July 01, 2025 End: July 01, 2025 Dr. Yasmani Bruno MD Attending physician Active Start: July 01, 2025 End: July 01, 2025 Team Status: Inactive Member Role/Relationship Status Yonatan Chappell MD Primary care physician Active S tart: August 03, 2025 End: August 03, 2025 Genia Chappell MD Attending physician Active Star t: August 03, 2025 End: August 03, 2025 Team Status: Inactive Member Role/Relationship Status Yonatan Chappell MD Primary care physician Active S tart: August 14, 2025 End: August 14, 2025 Genia Chappell MD Referring Provider Active Start : August 14, 2025 End: August 14, 2025 Dr. Patsy Aguirre MD Attending physician Active Start: August 14, 2025 End: August 14, 2025 Team Status: Inactive Member Role/Relationship Status Yonatan Chappell MD Primary care physician Active S tart: September 01, 2025 End: September 01, 2025 Genia Chappell MD Referring Provider Active Start : September 01, 2025 End: September 01, 2025 Dr. Oscar Springer MD Attending physician Active Start: September 01, 2025 End: September 01, 2025 Team Status: Inactive Member Role/Relationship Status Dates Dr. Mitchell Brian MD Attending physician Active Start: September 08, 2025 End: September 08, 2025 Dr. Mitchell Brian MD Referring Provider Active Start: September 08, 2025 End: September 08, 2025 Genia Chappell MD Primary care physician Active S tart: September 08, 2025 End: September 08, 2025 Team Status: Inactive Member Role/Relationship Status Yonatan Chappell MD Primary care physician Active S tart: September 11, 2025 End: September 11, 2025 Genia Chappell MD Referring Provider Active Start : September 11, 2025 End: September 11, 2025 Dr. Patsy Aguirre MD Attending physician Active Start: September 11, 2025 End: September 11, 2025 Team Status: Inactive Member Role/Relationship Status Yonatan Chappell MD Primary care physician Active S tart: September 15, 2025 End: September 15, 2025 Dr. Mitchell Brian MD Attending physician Active Start: September 15, 2025 End: September 15, 2025 Dr. Mitchell Brian MD Referring Provider Active Start: September 15, 2025 End: September 15, 2025 INFORMATION SOURCE (unrecogn ized section and content) DATE CREATED AUTHOR 07/23/2022 [facility] DATE CREATED AUTHOR AUTHOR'S YARAIZ ATION 09/23/2025 [facility] FOR RECORDS PERTAINING TO PATIENTS WHO [...] BE BASED ON THE PRIMARY CLINICAL RECORDS. [employer] provides no warranty or guarantee of the accuracy or completeness of information in this document.
[2025-11-20 17:38] LABS: Potassium 4.2 mmol/L (3.5-5.1)
== END | disposition home or self-care (01) ==
LOC: MTLAB 14:21
PROVIDERS: PCP Family Medicine; Referring Provider Family Medicine; Visit Provider Family Medicine
DX: I48.91 Unspecified atrial fibrillation (principal)
CPT/HCPCS: 36415; 84132